=== PATIENT | male | born 1940 | race Caucasian/White ===

== ENCOUNTER → 2020-08-23 13:35 | Outpatient (BNVA) | payer OTHER, MEDICARE, SELFPAY | PROVIDERS: PCP Internal Medicine; Visit Provider Hospitalist | DX: J44.9 Chronic obstructive pulmonary disease, unspecified (principal); R07.9 Chest pain, unspecified; J61 Pneumoconiosis due to asbestos and other mineral fibers | CPT/HCPCS: 99212 ==

== ENCOUNTER → 2020-11-22 10:38 | Outpatient (BNVA) | payer MEDICARE, OTHER, SELFPAY | PROVIDERS: PCP Internal Medicine; Visit Provider Hospitalist | DX: J43.2 Centrilobular emphysema (principal); J61 Pneumoconiosis due to asbestos and other mineral fibers; R07.9 Chest pain, unspecified | CPT/HCPCS: 99212 ==

== ENCOUNTER 2020-12-16 08:55 | Outpatient (REF) | payer MEDICARE, OTHER, SELFPAY ==
--- NOTE | ~2020-12-16 | CT_ITS ---
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 Axial MIP volume rendering provided. Sagittal and coronal reformatted images were obtained. Additional high-resolution images are obtained in 3 views through the upper, mid, and lower zones. This CT examination was performed using dose optimization techniques as appropriate, variously including the following: *Automated exposure control *Adjustment of mA and/or kV according to patient size (this includes techniques or standardized protocols for targeted exams where dose is matched to indication/reason for exam; i.e. extremities or head) *Use of iterative reconstruction technique DLP: 207 mGy-cm FINDINGS: LUNGS: The central airways are clear. There is no endobronchial lesion or bronchiectasis. There is no lobar or segmental airspace consolidation. There are no interval fibrotic changes. No honeycombing. There is small calcified granuloma left posterior base. No interval lung mass or nodule. No air trapping demonstrated. MEDIASTINUM: No hilar or mediastinal adenopathy. Esophagus unremarkable. Heart size normal. No pericardial effusion. Again, there are atherosclerotic calcifications coronary artery and also calcification in region of aortic valve. Thoracic aorta normal in caliber. PLEURA: There are multiple bilateral predominantly calcified pleural plaque similar in size and number to prior exam. There is no interval pleural mass or pleural effusion. AXILLA: No lymphadenopathy. UPPER ABDOMEN: Adrenals unremarkable. OSSEOUS STRUCTURES: No acute bony abnormality. CT/CT chest wo con IMPRESSION: 1. 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 2. No interval pulmonary parenchymal fibrotic changes, honeycombing, air trapping, or pleural effusion. 3. Coronary artery atherosclerotic calcification and calcification in region of aortic valve again noted.
== END 2020-12-16 08:56 | disposition home or self-care (01) ==
LOC: HO.CT 08:55
PROVIDERS: Visit Provider Hospitalist
DX: R07.9 Chest pain, unspecified (principal); J61 Pneumoconiosis due to asbestos and other mineral fibers
CPT/HCPCS: 71250

== ENCOUNTER → 2021-05-24 10:44 | Outpatient (BNVA) | payer MEDICARE, OTHER, SELFPAY | PROVIDERS: PCP Internal Medicine; Visit Provider Hospitalist | DX: J44.9 Chronic obstructive pulmonary disease, unspecified (principal); J61 Pneumoconiosis due to asbestos and other mineral fibers; R07.9 Chest pain, unspecified; R01.1 Cardiac murmur, unspecified; Z87.891 Personal history of nicotine dependence; Z88.4 Allergy status to anesthetic agent; Z88.8 Allergy status to other drugs, medicaments and biological substances; Z79.899 Other long term (current) drug therapy | CPT/HCPCS: 99212 ==

== ENCOUNTER 2021-05-29 07:31 | Outpatient (REF) | payer MEDICARE, OTHER, SELFPAY ==
--- NOTE | ~2021-05-29 | XR_ITS ---
EXAMINATION: XR CHEST CLINICAL INFORMATION: Chest pain COMPARISON: Previous chest x-rays most recent June [address] scans most recent December 2020 TECHNIQUE: 2 views of the chest were obtained. FINDINGS: The cardiac silhouette is slightly enlarged but stable. Hilar and mediastinal contours are unremarkable. The lung volumes are low. There are bilateral calcified pleural plaques that appear stable. The lungs are otherwise clear. There is no pleural effusion or pneumothorax. There are degenerative changes of the spine. XR/XR chest 2V IMPRESSION: No evidence for acute disease in the chest.
--- NOTE | 2021-05-29 07:49 | ECG_ITS ---
Test Reason : copd Blood Pressure : / mmHG Vent. Rate : 067 BPM Atrial Rate : 067 BPM P-R Int : 162 ms QRS Dur : 098 ms QT Int : 384 ms P-R-T Axes : 047 003 039 degrees QTc Int : 405 ms Normal sinus rhythm Moderate voltage criteria for LVH, may be normal variant ( R in aVL , Sokolow-Olson ) Nonspecific ST abnormality Abnormal ECG When compared with ECG of 22-JUL-2015 17:08, No significant change was found Referred By: Eric Tucker Electronically Signed By:MARILYN SANTOS MD
== END 2021-05-29 07:32 | disposition home or self-care (01) ==
LOC: HO.XRAY 07:31
PROVIDERS: Visit Provider Hospitalist
DX: R07.9 Chest pain, unspecified (principal); J44.9 Chronic obstructive pulmonary disease, unspecified
CPT/HCPCS: 71046; 93005

== ENCOUNTER → 2022-03-20 12:47 | Outpatient (BNVA) | payer MEDICARE, OTHER, SELFPAY | PROVIDERS: Visit Provider Hospitalist | DX: J43.2 Centrilobular emphysema (principal); J61 Pneumoconiosis due to asbestos and other mineral fibers; R07.9 Chest pain, unspecified; R01.1 Cardiac murmur, unspecified | CPT/HCPCS: 99212 ==

== ENCOUNTER → 2022-09-18 13:14 | Outpatient (BNVA) | payer MEDICARE, OTHER, SELFPAY | PROVIDERS: PCP Internal Medicine; Visit Provider Hospitalist | DX: J44.9 Chronic obstructive pulmonary disease, unspecified (principal); J61 Pneumoconiosis due to asbestos and other mineral fibers; R07.9 Chest pain, unspecified; J43.2 Centrilobular emphysema | CPT/HCPCS: 99212 ==

== ENCOUNTER 2022-10-04 09:01 | Outpatient (REF) | payer MEDICARE, OTHER, SELFPAY ==
--- NOTE | 2022-10-04 10:59 | PFT_ITS ---
INDICATION: Emphysema. SPIROMETRY: FEV1 to FVC 83% with an FEV1 of 1.29 L, which is 58% predicted, and FVC of 1.56 L, which is 48% predicted. No significant response to bronchodilator is noted. Maximum voluntary ventilation of 58% predicted. LUNG VOLUMES: Total lung capacity 61% of predicted with an expiratory reserve volume of 34% predicted. DIFFUSION CAPACITY: DLCO of 54% predicted. To note, it corrects to 122% when correcting for the alveolar volume. COMPARISON: None available. INTERPRETATION: No obstructive ventilatory defects. No significant response to bronchodilators noted. Moderate decrease in maximum voluntary ventilation. The patient does have a restrictive ventilatory defect consistent with mild restrictive lung disease. Apparently, due to an elevated BMI. Although, parenchymal lung conditions cannot be ruled out. The patient does have moderate diffusion impairment that does correct to normal when correcting for the alveolar volume. Clinical correlation warranted. Eric Tucker MD MR/MODL / [id number]
== END 2022-10-04 09:02 | disposition home or self-care (01) ==
LOC: HO.RESP 09:01
PROVIDERS: PCP Internal Medicine; Visit Provider Hospitalist
DX: J43.2 Centrilobular emphysema (principal)
CPT/HCPCS: 94060; 94727; 94729

== ENCOUNTER 2023-06-19 10:21 | Outpatient (AMB) | payer OTHER, SELFPAY ==
[2023-06-19 10:32] VITALS: BP 126/74; PULSE 80; BMI 36.7
--- NOTE | 2023-06-19 10:32 | MHC.OFFVIS ---
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/Aortic stenosis, CAD Intake Note: New patient dx CAD and had surgery 03/27/22 [facility] [place] hearts doing ok Loader Operator Supervisor Required: No Allergies niacin Allergy (Severe, Verified 09/18/22 13:20) Upset Stomach procaine [From Novocain] Allergy (Severe, Verified 09/18/22 13:20) I GET MEAN simvastatin Adverse Reaction (Severe, Verified 09/18/22 13:20) myopathy Medication List - Last Reconciled 06/19/23 by Donny Bonds MD albuterol sulfate 90 mcg/actuation 0 mcg inhalation aspirin (Adult Aspirin Regimen) 81 mg PO DAILY atorvastatin 80 mg PO BEDTIME clopidogrel 75 mg PO DAILY ezetimibe 10 mg PO DAILY fluticasone propion-salmeterol 250-50 mcg/dose (Wixela Inhub) 1 inh inhalation BID hydrochlorothiazide 25 mg PO DAILY metoprolol succinate ER 50 mg PO DAILY HPI HPI Comments History of Present Illness Details Thank you for referring Reed in cardiology consultation today for management of his cardiovascular disease. He is a pleasant 82-year-old male with prior history asbestosis, COPD, aortic stenosis status post transcatheter bioprosthetic aortic valve replacement with a 26 mm valve, March 2022, prior to that he underwent circumflex territory stenting with drug-eluting stents x3. Patient has chronic shortness of breath but says that his shortness of breath has improved since the procedure. He denies any exertional chest pain. He says his family members and friends tell him that he is looking better and performing better. He is currently still on dual antiplatelet therapy. He is on high-intensity statin therapy as well as blood pressure medications. He is also on ezetimibe therapy. I do not have the most recent blood work. He denies any heart failure symptoms. Denies any prolonged palpitation irregular heartbeat. Takes all his medications regularly. [facility] Medical History (Updated 06/19/23 @ 14:28 by Donny Bonds MD) Hyperlipidemia HTN (hypertension) CAD (coronary artery disease) Murmur, cardiac Chest pain COPD (chronic obstructive pulmonary disease) Asbestosis Surgical History (Updated 06/19/23 @ 14:28 by Donny Bonds MD) S/P TAVR (transcatheter aortic valve replacement) Stented coronary artery Hx of cardiac catheterization Family History Father CAD (coronary artery disease) Mother No problems noted. Social History Patient Tobacco Use Status: Former Tobacco user Tobacco use type: Cigarette Years Smoked: 14 years old Physical Exam Vital Signs: Last Vital Signs Pulse 80 06/19/23 10:32 BP 126/74 06/19/23 10:32 BMI result Body Mass Index 36.7 Const General: cooperative, comfortable, no acute distress, alert, awake and Physically active Nutritional Appearance: obese Orientation/consciousness: patient oriented x3 Limitations: no limitations HEENT Head: Yes normocephalic and Yes atraumatic Neck Neck: Yes trachea midline, Yes supple and Yes no JVD Resp Effort & Inspection: normal respiratory effort Auscultation: no rales, no wheezes and diminished lung sounds Cardio Jugular venous distension: no JVD Palpation: normal PMI Rate: regular rate Rhythm: regular rhythm Heart sounds: S1 normal heart sound present, S2 normal heart sound present, no click, no gallops and Murmur heart sound present systolic early GI Auscultation: normal bowel sounds Skin General skin exam: no rashes or lesions noted Neuro General: patient oriented x3 and no focal motor deficits Extrem General: Yes no clubbing, cyanosis or edema Office Procedures EKG Details: EKG shows normal sinus rhythm normal EKG at 80 beats per minute [id number], Complete Assessment & Plan Assessment & Plan (1) CAD (coronary artery disease): Code(s): I25.10 - Atherosclerotic heart disease of platinum coronary artery without angina pectoris Plan: CAD with circumflex stenting prior to transcatheter aortic valve replacement. Improved symptoms since then. Patient has having no current exertional symptoms and requires no further workup at this point time. He is status post drug-eluting stent more than a year ago. Will stop clopidogrel therapy. Continue lifelong aspirin therapy continue aggressive risk factor modification. Continue high-intensity statin therapy and ezetimibe with target goal LDL closer to 60 mg/dL. Continue aggressive control blood pressure which is currently well optimized importance of good blood pressure control was discussed. Low-salt diet was discussed. Advised to maintain activity level as tolerated. (2) S/P TAVR (transcatheter aortic valve replacement): Comment: 26 mm, Marcy, March 2023 Code(s): Z95.2 - Presence of prosthetic heart valve Plan: Status post transcatheter aortic valve replacement for severe aortic stenosis. Question bicuspid aortic valve as he has had murmur since he was very young. Advised to screen his children for bicuspid aortic valve. Continue aggressive vascular risk factor modifications above. Continue low-dose aspirin therapy for life. SBE prophylaxis as per ACC/aha guidelines. Will repeat echocardiogram. Will follow up in the clinic in 1 year's time, sooner p.r.n.. Thank you for allowing me to partake in his care Medications: New hydrochlorothiazide 25 mg PO DAILY 90 tabs 3RF metoprolol succinate ER 50 mg PO DAILY 90 tabs 3RF Coding Level of Care Code New Pt Level 4 (02202) Diagnoses CAD (coronary artery disease) I25.10 S/P TAVR (transcatheter aortic valve replacement) Z95.2 CPT Codes EKG - CPT: 89709-Omeqynfajbzagshyk, Complete ([id number])
== END 2023-06-19 11:16 | disposition home or self-care (01) ==
PROVIDERS: PCP Internal Medicine; Visit Provider Internal Medicine Cardiovascular Disease
DX: I25.10 Atherosclerotic heart disease of native coronary artery without angina pectoris (principal); Z95.2 Presence of prosthetic heart valve
CPT/HCPCS: 93010; 99204

== ENCOUNTER → 2023-06-19 10:21 | Outpatient (BNVA) | payer MEDICARE, OTHER, SELFPAY | PROVIDERS: PCP Internal Medicine; Visit Provider Internal Medicine Cardiovascular Disease | DX: I25.10 Atherosclerotic heart disease of native coronary artery without angina pectoris (principal); Z95.2 Presence of prosthetic heart valve | CPT/HCPCS: 93005; 99202 ==

== ENCOUNTER → 2023-07-10 10:41 | Outpatient (REF) | payer MEDICARE, OTHER, SELFPAY ==
--- NOTE | 2023-07-10 10:44 | CA_ITS ---
Transthoracic Echocardiogram Patient (Last, First, Middle): Reed Mallory H Gender: Male Date of : 1940 Age: 82 Procedure Date: 07/10/2023 Procedure Type: Transthoracic Echocardiogram Location: OP Height: 167.64 cm Weight: 90.72 kg BSA: 2.00 m2 Heart Rate: 72 bpm BP: 152 / 70 mmHg Change Coordinator: MARIANA Referring MD: Donny Bonds MD Symptoms: Z95.2 - Presence of prosthetic heart valve Study Quality: Fair ECG Rhythm: Sinus Conclusions: - The left ventricular systolic function is normal. The visually estimated ejection fraction is between 65-70%. - A bioprosthetic aortic valve is present. The prosthetic aortic valve appears to be functioning normally. Findings Procedure Information Contrast agent, definity, is being given per protocol without apparent complications. The quality of the study was technically difficult. The study quality is limited by lung artifact. Left Ventricle Normal left ventricular cavity size. The left ventricular systolic function is normal. The visually estimated ejection fraction is between 65-70%. There is no evidence of regional wall motion abnormalities. Evidence suggests grade I (mild) diastolic dysfunction. At least moderate focal hypertrophy of the basal septum. Right Ventricle Normal right ventricular cavity size. There is mildly decreased right ventricular systolic function. Atria Both atria are normal in size. Aortic Valve A bioprosthetic aortic valve is present. The prosthetic aortic valve appears to be functioning normally. Trace para-valvular regurgitation. Mitral Valve The mitral valve appears normal. There is trace mitral valve regurgitation. There is no mitral valve stenosis. Pulmonic Valve The pulmonic valve is likely normal. Tricuspid Valve Normal tricuspid valve structure. There is trace tricuspid valve regurgitation. There is no evidence of pulmonary hypertension. Great Vessels The asc aorta is normal in size. Venous The inferior vena cava was not well visualized. Pericardium/Pleural There is no evidence of pericardial effusion. Prior Study Comparison Changes noted compared to prior study dated: 04/23/2019. s/p TAVR. Measurements 2D Linear Measurements IVSd: 1.11 0.6-0.9/0.6-1.0 cm LVIDd: 5.15 3.9-5.3/4.2-5.9 cm LVIDd Index: 2.58 2.4-3.2/2.2-3.1 cm/m2 LVIDs: 3.48 2.0-3.6 cm LVPWd: 0.79 0.7-1.1 cm LA Diam: 4.50 2.7-3.8/3.0-4.0 cm LAIDs Index: 2.25 1.5-2.3 cm/m2 LV Mass: 222.67 67-162/88-224 g LV Mass Index: 111.34 43-95/49-115 g/m2 LVOT Diam: 2.20 3.0+(-)1.3 cm 2D Systolic Function EF 4C: 70.40 >55% Mitral Valve MV Pk E: 0.81 MV PK A: 0.88 MV Decel Time: 193.00 E/A: 0.90 E'Lateral: 6.53 E'Medial: 4.79 E/E' Med: 17.00 E/E' Lat: 12.50 PHT: 57.00 MVA PHT: 3.86 Decel [place]: 4.21 Aortic Valve AoV Pk Dave: 2.26 AoV Mn Dave: 1.58 AoV VTI: 0.47 AoV Pk Grad: 20.00 Aov Mn Grad: 11.00 STARR Cont.VTI: 2.28 LVOT LVOT Pk Dave: 1.25 LVOT Mn Dave: 0.87 LVOT VTI: 0.28 LVOT Pk Grad: 6.00 LVOT Mn Grad: 3.00 LVOT Diam: 2.20 LVOT Area: 3.80 Diastolic Function MV Pk E: 0.81 MV Pk A: 0.88 E/A: 0.90 E'Medial: 4.79 E/E' Med: 17.00 E' Laterial: 6.53 E/E' Lat: 12.50 Right Ventricle TAPSE (mm): 14.70 TVS' Dave: 10.00 Tricuspid Valve RA Press: 3.00 Great Vessels Aorta Ao Asc: 3.30 2.1-3.4 cm Pulmonary Valve PV Pk Dave: 0.92 Peak PV Grad: 3.00 Updated in Other Vendor System with Status of Final Aj Larkin MD electronically signed on 07/12/2023 11:45:42 AM with status of Final
== END ==
LOC: HO.CARD 10:41
PROVIDERS: PCP Internal Medicine; Visit Provider Internal Medicine Cardiovascular Disease
DX: Z95.2 Presence of prosthetic heart valve (principal)
CPT/HCPCS: 93306; Q9957

== ENCOUNTER → 2023-07-10 10:44 | Outpatient (BNV) | payer OTHER, SELFPAY | PROVIDERS: PCP Internal Medicine; Visit Provider Internal Medicine | DX: R07.9 Chest pain, unspecified (principal) | CPT/HCPCS: 93306 ==

== ENCOUNTER → 2023-11-21 14:14 | Outpatient (BNVA) | payer MEDICARE, OTHER, SELFPAY | PROVIDERS: PCP Internal Medicine; Visit Provider Hospitalist | DX: J43.2 Centrilobular emphysema (principal); J61 Pneumoconiosis due to asbestos and other mineral fibers; R42 Dizziness and giddiness | CPT/HCPCS: 99212 ==

== ENCOUNTER 2023-11-25 08:55 | Outpatient (AMB) | payer MEDICARE, OTHER, SELFPAY ==
[2023-11-25 09:06] VITALS: BP 142/80; PULSE 69; TEMP 36.6; O2SAT 98
--- NOTE | 2023-11-25 09:06 | AM.OFFWIN_ITS ---
Intake Vital Signs 11/25/23 09:06 Height 5 ft 3 in BP 142/80 H Blood Pressure Location Rt brachial Position Sitting Pulse 69 Pulse Source Pulse Oximeter Temp 97.8 F Temp Source Temporal Artery Scan Pulse Oximetry (%) 98 Intake Visit Reasons: EP blocked rt ear Intake Note: pt is here for bilateral ear blockage Patient Tobacco Use Status: Former Tobacco user Allergies niacin Allergy (Severe, Verified 11/25/23 09:07) Upset Stomach procaine [From Novocain] Allergy (Severe, Verified 11/25/23 09:07) I GET MEAN simvastatin Adverse Reaction (Severe, Verified 11/25/23 09:07) myopathy Do you need a note to return to daycare/school/sports/work: No HPI HPI Comments History of Present Illness Details Patient presents to the walk-in today for sick visit Complaining wax in both ears States he went to have hearing aids put in and was told they needed his ears flushed before they could do anything Denies dizziness, headaches ear pain, discharge from the ears [facility] Medical History (Updated 11/25/23 @ 09:15 by Michelle Padgett APRN, TELECOMMUNICATIONS SALES REPRESENTATIVE) Hyperlipidemia HTN (hypertension) CAD (coronary artery disease) Murmur, cardiac Chest pain COPD (chronic obstructive pulmonary disease) Asbestosis Surgical History (Updated 06/19/23 @ 14:28 by Donny Bonds MD) S/P TAVR (transcatheter aortic valve replacement) Stented coronary artery Hx of cardiac catheterization Family History Father CAD (coronary artery disease) Mother No problems noted. Social History Patient Tobacco Use Status: Former Tobacco user Tobacco use type: Cigarette Years Smoked: 14 years old Review of Systems Const All systems reviewed & are unremarkable except as noted in HPI and below Physical Exam Vital Signs: Last Vital Signs Temp 97.8 F 11/25/23 09:06 Pulse 69 11/25/23 09:06 BP 142/80 H 11/25/23 09:06 Pulse Ox 98 11/25/23 09:06 General: awake, alert, oriented. Answers questions appropriately. Fully engaged in examination. Skin: warm, dry, intact HEENT: Right ear: Cerumen impaction Left ear: Minimal cerumen noted, TM normal to visual inspection. Cardiac: External chest normal in appearance. Respiratory: No cough, audible wheezing or stridor. Abdomen: without gross distension. MS: No obvious swelling or deformities. Neurological: Oriented to person, place, time and situation. Thought process intact. Psychiatric: Appropriate mood and affect. Good judgment and insight. Office Procedures Cerumen Removal From which ear canal was the cerumen removed: left Removal: irrigation Notes: patient tolerated procedure well [id number] Irrigation/Lavage Assessment & Plan Assessment & Plan (1) Impacted cerumen, right ear: Code(s): H61.21 - Impacted cerumen, right ear Plan Cerumen removal as above, patient tolerated well. Post irrigation right TM normal to visual inspection. Follow up as planned for hearing aid fitting All questions and concerns were addressed, patient agrees with the plan. Follow up with pcp or in walkin for any new or worsening symptoms. Coding Level of Care Code Est Pt Level 3 (84262) Diagnoses Impacted cerumen, right ear H61.21 CPT Codes Office Procedure - CPT: 64180-Rmj Irrigation/Lavage ([id number])
== END 2023-11-25 09:59 | disposition home or self-care (01) ==
PROVIDERS: PCP Internal Medicine; Visit Provider Registered Nurse Emergency
DX: H61.21 Impacted cerumen, right ear (principal)
CPT/HCPCS: 69209; 99213

== ENCOUNTER 2024-01-10 18:17 | Emergency (ER) | payer OTHER, SELFPAY ==
--- NOTE | ~2024-01-10 | XR_ITS ---
EXAMINATION: 1. Left ankle. 2. Left foot. CLINICAL INFORMATION: Trauma. Pain. COMPARISON: None. TECHNIQUE: 1. Left ankle. 3 views 2. Left foot. 3 views FINDINGS: 1. Left ankle. Oblique fracture through the lateral malleolus at the level the synchondrosis. Fracture fragment is displaced about one half shaft width laterally. There is associated lateral dislocation of the talus with widening of the medial clear space of the ankle. There is chondrocalcinosis of the ankle joint. 2. Left foot. No fracture of the foot. There is no dislocation. Minimal plantar calcaneal spur. XR/XR foot LT min 3V IMPRESSION: 1. Left ankle. Fracture of the lateral malleolus with lateral dislocation of the talus. 2. Left foot. No fracture of the foot. There is chondrocalcinosis of the ankle joint.
--- NOTE | ~2024-01-10 | CT_ITS ---
EXAMINATION: CT CHEST, ABDOMEN AND PELVIS WITH CONTRAST. CLINICAL INFORMATION: fall, injury, pain. COMPARISON: No pertinent prior studies are available for comparison. TECHNIQUE: Multidetector volumetric imaging was performed from the thoracic inlet through the pubic symphysis following administration of 85 mL Omnipaque 300 intravenous contrast. Sagittal and coronal reformatted images were obtained on the technologist's workstation. This CT examination was performed using dose optimization techniques as appropriate, variously including the following: *Automated exposure control *Adjustment of mA and/or kV according to patient size (this includes techniques or standardized protocols for targeted exams where dose is matched to indication/reason for exam; i.e. extremities or head) *Use of iterative reconstruction technique DLP: 1943 mGy-cm FINDINGS: CHEST: Lung: Bibasilar dependent atelectasis. Mediastinum: Vascular calcification within the aorta and coronary vessels. TAVR stent is in place. Small hiatal hernia. 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 ABDOMEN/PELVIS: Peritoneal Space:No significant free air or free fluid identified. Liver, Gallbladder, Biliary Tree: The liver is normal in size, shape, and attenuation. No focal hepatic lesion or biliary ductal dilatation is present. The gallbladder is unremarkable with no evidence of radiopaque gallstones, gallbladder wall thickening, or obvious pericholecystic inflammatory changes. Pancreas: Atrophic Spleen: Unremarkable. Adrenal Glands: Unremarkable. Kidneys and Ureters: The kidneys are normal in size, shape, and attenuation. Low-attenuation cortical and parapelvic cysts seen bilaterally. No hydronephrosis, hydroureter, or calculi seen. No perinephric stranding. Bladder: Unremarkable. Gastrointestinal Tract: Scattered colonic diverticulosis more so in the sigmoid colon. Visualized small bowel unremarkable Abdominal Wall: No significant hernia is appreciated. Lymphovascular Structures: Vascular calcification within the aorta iliac system. No bulky adenopathy. No evidence for retroperitoneal bleed. Incidental retroaortic left renal vein. Pelvic Viscera: Unremarkable. Osseus Structures: Degenerative changes in the hips and shoulders. No displaced rib fractures seen. Sternum intact Spine: Multilevel degenerative changes in the spine with prominent osteophyte formation. There is grade 1 likely chronic anterolisthesis of L4 on L5 with sclerotic degenerative changes at this level CT/CT abdomen pelvis w IV con IMPRESSION: No visceral organ injury. No acute bony abnormality. Chronic appearing changes as described above.
--- NOTE | ~2024-01-10 | CT_ITS ---
EXAMINATION: CT HEAD WITHOUT CONTRAST CT CERVICAL SPINE WITHOUT CONTRAST CLINICAL INFORMATION: Fall. Injury. Pain. COMPARISON: CT head January 13, 2012 TECHNIQUE: Imaging was performed from the skull base to vertex without intravenous administration of contrast. In addition, helical noncontrast CT imaging was acquired through the cervical spine and source images were reviewed along with axial reconstructions and sagittal and coronal MPRs. [This CT examination was performed using dose optimization techniques as appropriate, variously including the following: *Automated exposure control *Adjustment of mA and/or kV according to patient size (this includes techniques or standardized protocols for targeted exams where dose is matched to indication/reason for exam; i.e. extremities or head) *Use of iterative reconstruction technique] DLP: 1247 mGy-cm FINDINGS: HEAD: No intracranial mass, hemorrhage, or midline shift is visualized. There is generalized global volume loss. There is mild prominence of the ventricles and the sulci . There is mild hypodensity of the periventricular white matter due to chronic small vessel ischemic disease. There are vascular calcifications of the internal carotid arteries bilaterally. No extra-axial collections are identified. The paranasal sinuses and mastoid air cells are well aerated. CERVICAL SPINE: There is no evidence of acute cervical spine fracture. Vertebral bodies remain normal in height. Cervical vertebrae have normal alignment. There is multilevel degenerative spondylosis of the cervical spine with disc height narrowing and endplate spurs and facet joint arthrosis No pre- or paravertebral soft tissue abnormality is identified. Limited assessment of the lung apices is unremarkable. CT/CT cervical spine wo IV con IMPRESSION: 1. No acute intracranial pathology. 2. No CT evidence of acute cervical spine fracture or traumatic subluxation
--- NOTE | ~2024-01-10 | XR_ITS ---
EXAMINATION: 1. Left ankle. 2. Left foot. CLINICAL INFORMATION: Trauma. Pain. COMPARISON: None. TECHNIQUE: 1. Left ankle. 3 views 2. Left foot. 3 views FINDINGS: 1. Left ankle. Oblique fracture through the lateral malleolus at the level the synchondrosis. Fracture fragment is displaced about one half shaft width laterally. There is associated lateral dislocation of the talus with widening of the medial clear space of the ankle. There is chondrocalcinosis of the ankle joint. 2. Left foot. No fracture of the foot. There is no dislocation. Minimal plantar calcaneal spur. XR/XR ankle LT min 3V IMPRESSION: 1. Left ankle. Fracture of the lateral malleolus with lateral dislocation of the talus. 2. Left foot. No fracture of the foot. There is chondrocalcinosis of the ankle joint.
[2024-01-10 18:23] VITALS: BP 138/77; PULSE 71; RESP 18; TEMP 36; O2SAT 95; BMI 31.5
--- NOTE | 2024-01-10 18:25 | ED_ITS ---
HPI - General Adult General Stated complaint: L ankle inj Related Data Home Medications ?Medication ?Instructions ?Recorded ?Confirmed albuterol sulfate 90 mcg/actuation 0 mcg inhalation 08/23/20 06/19/23 aerosol inhaler fluticasone 250 mcg-salmeterol 50 1 inh inhalation BID 03/20/22 06/19/23 mcg/dose blistr powdr for inhalation (Wixela Inhub) Previous Rx's ?Medication ?Instructions ?Recorded aspirin 81 mg tablet,delayed 81 mg PO DAILY #90 tabs 06/19/23 release (Adult Aspirin Regimen) atorvastatin 80 mg tablet 80 mg PO BEDTIME #90 tabs 06/19/23 ezetimibe 10 mg tablet 10 mg PO DAILY #90 tabs 06/19/23 hydrochlorothiazide 25 mg tablet 25 mg PO DAILY #90 tabs 06/19/23 metoprolol succinate 50 mg 50 mg PO DAILY #90 tabs 06/19/23 tablet,extended release 24 hr Allergies Allergy/AdvReac Type Severity Reaction Status Date / Time niacin Allergy Severe Upset Verified 11/25/23 09:07 Stomach procaine [From Novocain] Allergy Severe I GET Verified 11/25/23 09:07 MEAN simvastatin AdvReac Severe myopathy Verified 11/25/23 09:07 [facility] Past Medical History Medical History (Updated 11/25/23 @ 09:15 by Michelle Padgett APRN, [facility]) Hyperlipidemia HTN (hypertension) CAD (coronary artery disease) Murmur, cardiac Chest pain COPD (chronic obstructive pulmonary disease) Asbestosis Surgical History (Updated 06/19/23 @ 14:28 by Donny Bonds MD) S/P TAVR (transcatheter aortic valve replacement) Stented coronary artery Hx of cardiac catheterization Family History Family History Father CAD (coronary artery disease) Mother No problems noted. Social History Social History Patient Tobacco Use Status: Former Tobacco user Tobacco use type: Cigarette Years Smoked: 14 years old Course Course Course Narrative: RME performed by Elyssa Douglas PA-C. Patient is an 83 year old assigned male at presenting to the emergency department with chest pain and left ankle pain. Patient states that he is having left sided ankle pain and chest pain after falling off of a motorized scooter he was trying to fix. Detailed physical exam and review of systems are deferred to the business services administrator. EKG, labs, and imaging ordered. Patient placed back in the waiting room pending room availability and results. Discharge Plan Discharge Prescriptions: No Action hydrochlorothiazide 25 mg tablet 25 mg PO DAILY Qty: 90 3RF ezetimibe 10 mg tablet 10 mg PO DAILY Qty: 90 3RF atorvastatin 80 mg tablet 80 mg PO BEDTIME Qty: 90 3RF aspirin [Adult Aspirin Regimen] 81 mg tablet,delayed release (DR/EC) 81 mg PO DAILY Qty: 90 3RF metoprolol succinate 50 mg tablet extended release 24 hr 50 mg PO DAILY Qty: 90 3RF albuterol sulfate 90 mcg/actuation HFA aerosol inhaler 0 mcg inhalation fluticasone propion-salmeterol [Wixela Inhub] 250-50 mcg/dose blister with device 1 inh inhalation BID Print Language: Japanese
--- NOTE | 2024-01-10 18:26 | ECG_ITS ---
Test Reason : CHEST PAIN Blood Pressure : / mmHG Vent. Rate : 072 BPM Atrial Rate : 072 BPM P-R Int : 170 ms QRS Dur : 090 ms QT Int : 392 ms P-R-T Axes : 059 006 022 degrees QTc Int : 429 ms Normal sinus rhythm Minimal voltage criteria for LVH, may be normal variant ( R in aVL ) Borderline ECG When compared with ECG of 29-MAY-2021 07:56, No significant change was found Referred By: Elyssa Douglas Electronically Signed By:PAULA ARGUETA MD
[2024-01-10 18:38] VITALS: BP 149/64; PULSE 72; RESP 20; TEMP 36.7; O2SAT 95
--- NOTE | 2024-01-10 18:53 | MHC.EDTECH ---
This pct just assumed care of patient ,ekg taken and was read by Provider ,vitals taken ,Patient was hooked up to procurement engineer ,rsv/covid swab and blood drawn all sent to lab ,Patient A& O ,Patient daughter at bedside ,Call perry within pt reach .
[2024-01-10 18:55] LABS: MANUAL DIFF FLAG NO
[2024-01-10 19:05] LABS: Basophils Percent Auto 0.5 % (0-2); Eosinophils Absolute Auto 0.1 X10*3/uL (0.0-0.4); Eosinophils Percent Auto 1.3 % (0-4); Hematocrit 39.5 % (42.0-52.0); Hemoglobin 13.6 g/dl (14.0-18.0); Imm Gran Abs Auto 0.04 X10*3/uL (0.00-0.03); Imm Gran Pct Auto 0.5 % (0.0-0.4); Lymphocytes Absolute Auto 2.8 X10*3/uL (1.2-4.9); Lymphocytes Percent Auto 37.4 % (20-40); Mean Corpuscular HGB Conc 34.4 g/dl (31.0-36.0); Mean Corpuscular Hemoglobin 33.1 pg (27.0-33.0); Mean Corpuscular Volume 96.1 fL (80.0-98.0); Mean Platelet Volume 9.7 fL (9.4-12.4); Monocytes Absolute Auto 0.8 X10*3/uL (0.1-1.2); Monocytes Percent Auto 11.2 % (2-11); Neutrophils Absolute Auto 3.7 x10*3/uL (2.0-8.3); Neutrophils Percent Auto 49.1 % (45-73); Platelet Count 108 X10*3/uL (160-400); Red Blood Count 4.11 X10*6/uL (4.60-5.80); Red Cell Distribution Width 13.2 % (11.0-16.0); White Blood Count 7.5 X10*3/uL (4.8-10.8)
[2024-01-10 19:09] LABS: Alanine Aminotransferase 24 U/L (0-40); Albumin Level 3.7 g/dL (3.5-5.0); Alkaline Phosphatase 88 U/L (39-117); Anion Gap 13 (12-20); Aspartate Amino Transferase 31 U/L (5-37); Bilirubin Total 0.7 mg/dL (0.0-1.0); Blood Urea Nitrogen 23 mg/dL (9-16); Calcium 9.1 mg/dL (8.4-10.2); Carbon Dioxide 23 mmol/L (22-29); Chloride 108 mmol/L (96-108); Creatinine Clr Calc Pharmacy 59.8; Estimated Glomerular Filt Rate > 60; Glucose Random 111 mg/dL (60-115); Magnesium 1.8 mg/dL (1.6-2.6); Potassium 3.4 mmol/L (3.3-5.1); Prothrombin Time 11.8 SEC (11.1-13.3); Sodium 141 mmol/L (135-145); Total Protein 6.4 g/dL (6.5-8.0)
[2024-01-10 19:12] LABS: Partial Thromboplastin Time 26.7 SEC (26.0-36.8)
[2024-01-10 19:16] LABS: Troponin-I High Sensitivity 4.3 ng/L (<3.5-35.0)
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
[2024-01-10 19:30] LABS: Influenza A PCR NEGATIVE (Negative); Influenza B PCR NEGATIVE (Negative); Resp Syncy Virus RNA Qual PCR NEGATIVE (Negative); SARS COV2 PCR INHOUSE NEGATIVE (Negative)
--- NOTE | 2024-01-10 19:35 | PC.NURSE ---
Assumed care of pt at 1900. #20 IV placed in L-upper forearm. Pt going to CT.
[2024-01-10] MEDS: iohexoL 350 MG/ML 100 ML INFUS..BTL 85 ML IV (19:56)
[2024-01-10 20:45] VITALS: BP 159/46; PULSE 75; RESP 16; TEMP 36.2; O2SAT 95
[2024-01-10 21:50] LABS: Troponin-I High Sensitivity 5.7 ng/L (<3.5-35.0)
[2024-01-10 21:51] LABS: Appearance Urine Clear; Color Urine Yellow; Glucose Urine UA Negative (Negative); Leukocyte Esterase Urine Negative (Negative); Nitrite Urine Negative (Negative); PH 7.5 (5.0-9.0); Specific Gravity - Urine >= 1.030 (1.005-1.025); Urine Blood Negative (Negative); Urine Ketones Negative (Negative); Urine Protein Negative (Neg-Trace)
[2024-01-10 22:19] VITALS: BP 157/74; PULSE 82; RESP 16; TEMP 36.4; O2SAT 95
[2024-01-10 23:37] VITALS: BP 157/74; PULSE 82; RESP 16; TEMP 36.4; O2SAT 95
== END 2024-01-10 22:35 | disposition home or self-care (01) ==
PROVIDERS: Physician Assistant; Physician Assistant Medical; Emergency Provider Emergency Medicine
DX: S82.62XA Displaced fracture of lateral malleolus of left fibula, initial encounter for closed fracture (principal); S93.05XA Dislocation of left ankle joint, initial encounter; R07.89 Other chest pain; R10.2 Pelvic and perineal pain; M25.572 Pain in left ankle and joints of left foot; R40.2410 Glasgow coma scale score 13-15, unspecified time; M54.2 Cervicalgia; R51.9 Headache, unspecified; M54.6 Pain in thoracic spine; R10.30 Lower abdominal pain, unspecified; W05.2XXA Fall from non-moving motorized mobility scooter, initial encounter; Y93.9 Activity, unspecified; Y92.410 Unspecified street and highway as the place of occurrence of the external cause; Y99.8 Other external cause status; Z79.899 Other long term (current) drug therapy; Z87.891 Personal history of nicotine dependence; Z03.818 Encounter for observation for suspected exposure to other biological agents ruled out
CPT/HCPCS: 0241U; 36415; 70450; 71260; 72125; 73610; 73630; 74177; 80053; 81003; 83735; 84484; 85025; 85610; 85730; 93005; 99284; Q9967

== ENCOUNTER → 2024-01-10 18:26 | Outpatient (BNV) | payer MEDICARE, OTHER, SELFPAY | PROVIDERS: Emergency Provider Emergency Medicine; Visit Provider Internal Medicine Cardiovascular Disease | DX: R07.9 Chest pain, unspecified (principal); R94.31 Abnormal electrocardiogram [ECG] [EKG] | CPT/HCPCS: 93010 ==

== ENCOUNTER 2024-01-13 10:17 | Outpatient (REF) | payer OTHER, SELFPAY ==
--- NOTE | ~2024-01-13 | XR_ITS ---
EXAMINATION: XR ANKLE, LEFT CLINICAL INFORMATION: Displaced fracture of lateral malleolus COMPARISON: X-ray the left ankle 01/10/2024 TECHNIQUE: AP, lateral, and mortise views of the left ankle. FINDINGS: There is oblique fracture the distal fibula with mild lateral displacement of distal fragment. Question slight widening of the medial clear space. No change in alignment. No additional fractures are identified. XR/XR ankle LT min 3V IMPRESSION: 1. Distal fibular fracture unchanged in alignment. 2. Question slight widening of the medial clear space.
== END 2024-01-13 10:18 | disposition home or self-care (01) ==
LOC: HO.HOSX 10:17
DX: S82.62XA Displaced fracture of lateral malleolus of left fibula, initial encounter for closed fracture (principal)
CPT/HCPCS: 27786; 73610; 99202

== ENCOUNTER 2024-01-13 13:11 | Outpatient (AMB) | payer OTHER, SELFPAY ==
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
== END 2024-01-13 15:38 | disposition home or self-care (01) ==
DX: S82.62XA Displaced fracture of lateral malleolus of left fibula, initial encounter for closed fracture (principal)
CPT/HCPCS: 27786; 99204

== ENCOUNTER 2024-01-20 14:51 | Outpatient (AMB) | payer OTHER, SELFPAY ==
--- NOTE | 2024-01-20 15:24 | A.OFFVIS_ITS ---
Intake Visit Reasons: ED F/U L ankle fx DOI 01/10/24 Intake Note: Reed is an 83 year old male who presents today for a follow up of his left ankle fx, DOI 01/10/24. Patient reports an increase of pain since his injury, however his swelling has improved. Allergies niacin Allergy (Severe, Verified 01/20/24 15:27) Upset Stomach procaine [From Novocain] Allergy (Severe, Verified 01/20/24 15:27) I GET MEAN simvastatin Adverse Reaction (Severe, Verified 01/20/24 15:27) myopathy HPI HPI ED F/U L ankle fx DOI 01/10/24: Details: Patient is an 83-year-old male who presents to the office today for skin and edema check prior to ankle surgery tomorrow due to displaced lateral malleolus fracture, date of injury 01/10/2024. Patient reports that he feels the swelling has improved in his left ankle, and then he has been keeping it elevated as much as possible. The patient inquires if the swelling has gone down enough to proceed with surgery tomorrow. [facility] Medical History (Updated 01/13/24 @ 17:33 by NYDIA Jimenez) Hyperlipidemia HTN (hypertension) CAD (coronary artery disease) Murmur, cardiac Chest pain COPD (chronic obstructive pulmonary disease) Asbestosis Surgical History S/P TAVR (transcatheter aortic valve replacement) Stented coronary artery Hx of cardiac catheterization Family History Father CAD (coronary artery disease) Mother No problems noted. Social History Patient Tobacco Use Status: Former Tobacco user Tobacco use type: Cigarette Years Smoked: 14 years old Physical Exam Extrem Other: On examination, there is still very significant edema and ecchymosis of the L ankle Skin feels tense due to edema No crease at the anterior ankle joint Mild tenderness to palpation at the fracture site NVI Assessment & Plan Assessment & Plan (1) Ankle fracture, lateral malleolus, closed: Code(s): S82.63XA - Displaced fracture of lateral malleolus of unspecified fibula, initial encounter for closed fracture Category: Medical Qualifiers: Encounter type: initial encounter Fracture alignment: displaced Laterality: left Qualified Code(s): S82.62XA - Displaced fracture of lateral malleolus of left fibula, initial encounter for closed fracture Plan 1. Displaced lateral malleolus fracture After consultation with Dr. Chirinos, the patient will proceed with surgery at this time Patient will be re-evaluated in pre-op by Dr. Chirinos to see the status of the edema in his ankle, and to determine if surgery can be performed Patient is placed back in splint for tonight, and advised to elevate and ice as much as possible until surgery tomorrow. Patient will follow-up postoperatively if able to proceed, or will be seen again in clinic before procedure if procedure must be rescheduled. Coding Level of Care Code Est Pt Level 3 (48624) Diagnoses Closed displaced fracture of lateral malleolus of left fibula, initial encounter S82.62XA Encounter type: initial encounter Fracture alignment: displaced Laterality: left
== END 2024-01-20 16:32 | disposition home or self-care (01) ==
DX: S82.62XA Displaced fracture of lateral malleolus of left fibula, initial encounter for closed fracture (principal)
CPT/HCPCS: 99024

== ENCOUNTER → 2024-01-20 14:51 | Outpatient (BNVA) | payer OTHER, MEDICARE, SELFPAY | DX: S82.62XD Displaced fracture of lateral malleolus of left fibula, subsequent encounter for closed fracture with routine healing (principal) | CPT/HCPCS: 99212 ==

== ENCOUNTER 2024-01-21 11:40 | Day surgery (SDC) | payer OTHER, SELFPAY ==
[2024-01-21] VITALS (7 sets, daily range): BP systolic 124–146; BP diastolic 58–82; PULSE 80–89; RESP 16–18; TEMP 36.3–36.7; O2SAT 91–96; BMI 34.5; BMI 31.1
--- NOTE | ~2024-01-21 | FL_ITS ---
EXAMINATION: XR FLUOROSCOPY WITH IMAGES CLINICAL INFORMATION: Left ankle fracture. COMPARISON: None available. TECHNIQUE: Fluoroscopy Supervised By: Dr. Jonnathan Chirinos. Fluoroscopy Time: 0.2 minutes. Cumulative Dose: 0.791 mGy. DAP: 0.0137 mGym2. Images: 7. FINDINGS: Intraoperative fluoroscopy and spot films were performed during a procedure in the OR. A lateral plate and screw is present overlying the distal fibula. A single screw traverses in the AP dimension. An orthopedic device is placed overlying the region of the medial malleolus which was not present previously. Please correlate with Dr. Chirinos's report for complete details. FL/FL guidance in OR IMPRESSION: Intraoperative fluoroscopy and spot films were obtained. Please see Dr. Chirinos's report for complete details.
--- NOTE | 2024-01-21 12:37 | MHC.SHP ---
Pre-Procedural Eval Section A - 24 Hr Update-Section A only Date of Service: 01/21/24 The patient is an INPATIENT: No Changes since office visit: No Cold of Flu in the past 2 weeks, No New Medical Problems, No Changes in Medication and No Patient answered all questions The patient has been examined within 24 hours of the surgical procedure. The History & Physical has been completed within 30 days and I have reviewed it.: Yes Section B - Complete if H&P > 30 days Chief Complaint: Displaced fracture of lateral malleolus of left Allergies: Allergies Allergy/AdvReac Type Severity Reaction Status Date / Time niacin Allergy Severe Upset Verified 01/21/24 12:33 Stomach procaine [From Novocain] Allergy Severe I GET Verified 01/21/24 12:33 MEAN simvastatin AdvReac Severe myopathy Verified 01/21/24 12:33 Plan I have reviewed the history and physical and performed a pertinent physical examination on my patient. No changes have occurred unless specified. Time Spent With Patient Time: Total time managing care of this patient today ____ minutes.
[2024-01-21] MEDS: Lactated Ringers 1,000 ML 100 ML IVCONT (13:07)
--- NOTE | 2024-01-21 13:10 | P.CONAN_ITS ---
Documented by User: Tova Lawson NP 01/20/24 10:19 HPI - Anesthesia Eval Consult details Narrative: 83yo M for Left Ankle Fracture ORIF Follows [facility] cardiology yearly for CAD with circumflex stenting prior to transcatheter aortic valve replacement 2021. Stable at last office visit 06/2023. Follows [facility] pulmo for COPD. Last office visit 11/2023. Stable, mod ORR at baseline [facility] Active Problems Active Problems: All Active Problems Ankle fracture, lateral malleolus, closed (Acute) Impacted cerumen, right ear (Acute) Dizziness (Acute) Hyperlipidemia (Acute) HTN (hypertension) (Acute) S/P TAVR (transcatheter aortic valve replacement) (Acute) CAD (coronary artery disease) (Acute) Murmur, cardiac (Acute) Chest pain (Acute) COPD (chronic obstructive pulmonary disease) (Acute) Asbestosis (Acute) Past Medical History Medical History (Updated 01/13/24 @ 17:33 by NYDIA Jimenez) Hyperlipidemia HTN (hypertension) CAD (coronary artery disease) Murmur, cardiac Chest pain COPD (chronic obstructive pulmonary disease) Asbestosis Family History Family History Father CAD (coronary artery disease) Mother No problems noted. Surgical History Surgical History S/P TAVR (transcatheter aortic valve replacement) Stented coronary artery Hx of cardiac catheterization Social History Social History Patient Tobacco Use Status: Former Tobacco user Tobacco use type: Cigarette and Cigar Years Smoked: 14 years old Smoked in Last 30 Days: No Use of substances other than those prescribed or required for medical reasons: No Are you DNR?: No Advance Directives: No Advance Directives Information Provided: Yes Meds Allergies Allergy/AdvReac Type Severity Reaction Status Date / Time niacin Allergy Severe Upset Verified 01/21/24 12:33 Stomach procaine [From Novocain] Allergy Severe I GET Verified 01/21/24 12:33 MEAN simvastatin AdvReac Severe myopathy Verified 01/21/24 12:33 Home Medications ?Medication ?Instructions ?Recorded ?Confirmed ?Last Taken ?Type albuterol sulfate 90 mcg/actuation 90 mcg inhalation NEEDED PRN 08/23/20 01/21/24 Unknown History aerosol inhaler asthma fluticasone 250 mcg-salmeterol 50 1 inh inhalation BID 03/20/22 01/21/24 Unknown History mcg/dose blistr powdr for inhalation (Shad Inhub) Exam Pertinent Lab Results Pertinent Lab Results: Laboratory Tests 01/10/24 18:51 WBC 7.5 Hgb 13.6 L Hct 39.5 L Plt Count 108 L Sodium 141 Potassium 3.4 Chloride 108 Carbon Dioxide 23 BUN 23 H Creatinine 0.94 Narrative Narrative: EKG 12/2023 Vent. Rate : 072 BPM Atrial Rate : 072 BPM P-R Int : 170 ms QRS Dur : 090 ms QT Int : 392 ms P-R-T Axes : 059 006 022 degrees QTc Int : 429 ms Normal sinus rhythm Minimal voltage criteria for LVH, may be normal variant ( R in aVL ) Borderline ECG When compared with ECG of 29-MAY-2021 07:56, No significant change was found ECHO 06/2023 Conclusions: - The left ventricular systolic function is normal. The visually estimated ejection fraction is between 65-70%. - A bioprosthetic aortic valve is present. The prosthetic aortic valve appears to be functioning normally. Assessment and Plan Assessment Anesthesia Assessment: Chart Reviewed Documented by User: Raine Bond DO 01/21/24 13:12 [facility] Past Medical History Medical History (Updated 01/13/24 @ 17:33 by NYDIA Jimenez) Hyperlipidemia HTN (hypertension) CAD (coronary artery disease) Murmur, cardiac Chest pain COPD (chronic obstructive pulmonary disease) Asbestosis Family History Family History Father CAD (coronary artery disease) Mother No problems noted. Family history of problems with anesthesia: No Surgical History Surgical History S/P TAVR (transcatheter aortic valve replacement) Stented coronary artery Hx of cardiac catheterization History of Problems with Anesthesia: No Social History Social History Patient Tobacco Use Status: Former Tobacco user Tobacco use type: Cigarette and Cigar Years Smoked: 14 years old Smoked in Last 30 Days: No Use of substances other than those prescribed or required for medical reasons: No Are you DNR?: No Advance Directives: No Advance Directives Information Provided: Yes Meds Allergies Allergy/AdvReac Type Severity Reaction Status Date / Time niacin Allergy Severe Upset Verified 01/21/24 12:33 Stomach procaine [From Novocain] Allergy Severe I GET Verified 01/21/24 12:33 MEAN simvastatin AdvReac Severe myopathy Verified 01/21/24 12:33 Home Medications ?Medication ?Instructions ?Recorded ?Confirmed ?Last Taken ?Type albuterol sulfate 90 mcg/actuation 90 mcg inhalation NEEDED PRN 08/23/20 01/21/24 Unknown History aerosol inhaler asthma fluticasone 250 mcg-salmeterol 50 1 inh inhalation BID 03/20/22 01/21/24 Unknown History mcg/dose blistr powdr for inhalation (Shad Montgomery) Exam Exam Date and Time: January 21, 2024 1310 Height,Weight and Vital Signs: Height 5 ft 6 in Weight 87.543 kg Vital Signs Temperature 98.0 F 01/21/24 12:29 Pulse Rate 80 01/21/24 12:29 Respiratory Rate 16 01/21/24 12:29 Blood Pressure 138/65 01/21/24 12:29 Pulse Oximetry 96 01/21/24 12:29 Oxygen Delivery Method Room Air 01/21/24 12:29 Temperature 98.0 F 01/21/24 12:29 Pulse Rate 80 01/21/24 12:29 Respiratory Rate 16 01/21/24 12:29 Blood Pressure 138/65 01/21/24 12:29 Pulse Oximetry 96 01/21/24 12:29 Oxygen Delivery Method Room Air 01/21/24 12:29 Airway Mallampati Class: I TM Dist: >3cm Neck ROM: Full Denture: Upper and Lower Loose/Missing/Broken Teeth: Yes (edentulous - dentures removed) Heart: S1S2 Lungs: Diminished bilaterally Assessment and Plan Assessment Anesthesia Assessment: Anesthesia Plan Discussed and Chart Reviewed Final Anesthetic Review Family History of Problems with Anesthesia: No History of Problems with Anesthesia: No NPO: Yes ASA Class: III Final Preanesthetic Review: No Changes in Pt Med Stat, Meds/Allgs Chart Re viewed, Consent Obtained/Reviewed and Anes Risks/Benef Reviewed Patient Risk: High Procedure Risk: Intermediate Anesthetic Plan Anesthetic Plan: GA, Regional Block (left addictor canal and left sciatic nerve blocks) and Agree w/ Assess. and Plan Disposition: Standard PACU
--- NOTE | 2024-01-21 16:09 | PM.OP ---
Brief Operative Note Date of Service: 01/21/24 Pre-op diagnosis: left lateral mal fx Post-op diagnosis: other (1) same 2) syndesmosis rupture left ankle) Procedure: 1- ORIF lateral malleolus 2-ORIF syndesmosis Implants: Beverly distal fibular locking plate Beverly syndesmosis suture button Surgeon: Jonnathan Chirinos MD Anesthesia: GLMA and regional Was an Container Packer Operator used for this Procedure?: No Estimated blood loss (mL): 25 Tourniquet time (min): 40 IV fluids (mL): 800 Pathology: none sent Condition: stable Disposition: PACU Assessment and Plan (No Qualifiers) Assessment and Plan (1) Ankle fracture, lateral malleolus, closed: Status: Acute Plan: NWB Change to short leg cast at 10-14 days after lux out PWB in boot at 6 weeks post op
--- NOTE | 2024-01-29 07:27 | P.OP_ITS ---
Operative Note Operative Note Date of Service: 01/21/24 Narrative: Date of Service: 01/21/24 Pre-op diagnosis: left lateral mal fx Post-op diagnosis: other (1) same 2) syndesmosis rupture left ankle) Procedure: 1- ORIF lateral malleolus 2-ORIF syndesmosis Implants: [employer] distal fibular locking plate [employer] syndesmosis Synchfix Surgeon: Jonnathan Chirinos MD Anesthesia: GLMA and regional Was an Senior Compliance Officer used for this Procedure?: No Estimated blood loss (mL): 25 Tourniquet time (min): 40 IV fluids (mL): 800 Pathology: none sent Condition: stable Disposition: PACU Procedure in detail: Patient was brought to the operating room and placed supine on the operative table. All bony prominences were well padded and a time-out was called to identify proper site proper procedure proper surgeon. IV antibiotics per weight were administered. I began by exsanguinating limb is slightly tourniquet to 300 mm Hg. I then made a standard posterolateral incision over the fibula. Full- thickness flaps were taken down to the fibular shaft and distal fibula. The fracture was identified and cleaned with a combination of curette, rongeur and irrigation. A lobster claw was used to provisionally reduce the fracture and a lag screw was placed obliquely from postyerio to anterior. I then selected a 6 hole distal fibular locking plate was applied using standard AO technique. Biplanar fluoroscopy was used to confirm hardware position and fracture reduction. Once I was satisfied that both of these were acceptable I irrigated copiously and turned my attention to the Syndesmosis. An external rotation stress test revealed an increased medial justyna space and so a Synchfix was selected and inserted through the lateral place at the level of the syndesmosis iwth a k wire and iwth slight superior inclination. The Synch fix button was ten placed into the place and medially, a dani incision was made and the suture button attached and then the device was tightened. An external rotation stress test was then performed again and I was asatisfied with the symmetry of the mortise. All instrumentation was then removed and copious irrigation was performed. Absorbable suture and lux were used for closure and the patient was placed into sterile dressings and a well-padded posterior splint. Tourniquet was let down and the patient was extubated brought to recovery room in stable condition there were no known complications.
== END 2024-01-21 17:25 | disposition home or self-care (01) ==
PROVIDERS: Visit Provider Orthopaedic Surgery
PROC: (CPT 27792; principal; 2024-01-21 15:40)
DX: S82.62XA Displaced fracture of lateral malleolus of left fibula, initial encounter for closed fracture (principal); V28.49XA Other motorcycle driver injured in noncollision transport accident in traffic accident, initial encounter; Y93.55 Activity, bike riding; Y92.9 Unspecified place or not applicable; Y99.8 Other external cause status; I10 Essential (primary) hypertension; E78.5 Hyperlipidemia, unspecified; I25.10 Atherosclerotic heart disease of native coronary artery without angina pectoris; Z95.5 Presence of coronary angioplasty implant and graft; Z95.2 Presence of prosthetic heart valve; J44.9 Chronic obstructive pulmonary disease, unspecified; J61 Pneumoconiosis due to asbestos and other mineral fibers; Z87.891 Personal history of nicotine dependence
CPT/HCPCS: 27792; C1713; J0131; J0690; J1100; J2704; J2795; J3010

== ENCOUNTER → 2024-01-21 11:40 | Outpatient (BNV) | payer OTHER, SELFPAY | PROVIDERS: Visit Provider Orthopaedic Surgery | DX: S82.62XA Displaced fracture of lateral malleolus of left fibula, initial encounter for closed fracture (principal) | CPT/HCPCS: 27792 ==

== ENCOUNTER 2024-01-27 09:37 | Outpatient (REF) | payer OTHER, SELFPAY ==
--- NOTE | ~2024-01-27 | XR_ITS ---
EXAMINATION: XR ANKLE, LEFT CLINICAL INFORMATION: Pain in the left ankle. COMPARISON: X-ray the left ankle 12/14/2023. TECHNIQUE: AP, lateral, and mortise views of the left ankle. FINDINGS: Postoperative changes with plate and screw fixation along the distal fibula crossing the area of previously noted fibular fracture with overlying skin lux. Overall, improved alignment. Additional orthopedic device overlying the medial cortex of the distal tibia. The medial clear space appears normal indicating improved alignment of the talocrural joint. Chondrocalcinosis of the talocrural joint. Tiny calcification plantar to the calcaneal tuberosity perhaps related to old tear of the proximal plantar fascia or plantar fasciitis. XR/XR ankle LT min 3V IMPRESSION: 1. Postoperative changes. Overall improved alignment of the talocrural joint and distal fibular fracture compared with the preoperative exams. 2. Chondrocalcinosis. 3. Tiny calcification plantar to the calcaneal tuberosity perhaps related to old tear the proximal plantar fascia or plantar fasciitis.
== END 2024-01-27 09:38 | disposition home or self-care (01) ==
LOC: HO.HOSX 09:37
DX: M25.572 Pain in left ankle and joints of left foot (principal); S82.62XD Displaced fracture of lateral malleolus of left fibula, subsequent encounter for closed fracture with routine healing; X58.XXXD Exposure to other specified factors, subsequent encounter
CPT/HCPCS: 29405; 73610; 99212

== ENCOUNTER 2024-01-27 12:55 | Outpatient (AMB) | payer OTHER, SELFPAY ==
--- NOTE | 2024-01-27 13:09 | MHC.OFFVIS ---
Intake Visit Reasons: PO LT ankle ORIF 01/21/24 NE Intake Note: Reed is a 83 year old male who presents with his daughter today post operatively s/p left ankle ORIF 01/21/24 w/ NE. Patient reports aching since his surgery. He expresses he felt like his splint was too tight causing discomfort. Accompanied by: Daughter Allergies niacin Allergy (Severe, Verified 01/27/24 13:15) Upset Stomach procaine [From Novocain] Allergy (Severe, Verified 01/27/24 13:15) I GET MEAN simvastatin Adverse Reaction (Severe, Verified 01/27/24 13:15) myopathy HPI HPI PO LT ankle ORIF 01/21/24 NE: Details: Patient is an 83 YO M who presents for one week post-op appointment s/p LT ankle ORIF, DOS 01/21/24. Patient reports that he has been experiencing some achy pain since surgery, but that he has only been taking tylenol as he is not comfortable taking the other pain medications prescribed to him. The patient also reports that he felt the splint he was fitted in after surgery was too tight, and this was causing him some discomfort. Patient reports no other acute concerns at this time. [facility] Medical History Hyperlipidemia HTN (hypertension) CAD (coronary artery disease) Murmur, cardiac Chest pain COPD (chronic obstructive pulmonary disease) Asbestosis Surgical History S/P TAVR (transcatheter aortic valve replacement) Stented coronary artery Hx of cardiac catheterization Family History Father CAD (coronary artery disease) Mother No problems noted. Social History Patient Tobacco Use Status: Former Tobacco user Tobacco use type: Cigarette and Cigar Years Smoked: 14 years old Physical Exam Extrem Other: On examination, incision sites on the L ankle are clean, dry, intact, no evidence of infection or dehiscence Vero in place Noted edema and ecchymosis of the L foot and ankle noted, improved from pre-operatively Sensation intact to the distal LLE Cap refill brisk Office Procedures Casting/Splints [id number] Leg Cast Application Procedure code (CPT) selection complete Assessment & Plan Assessment & Plan (1) Ankle fracture, lateral malleolus, closed: Code(s): S82.63XA - Displaced fracture of lateral malleolus of unspecified fibula, initial encounter for closed fracture Category: Medical Qualifiers: Encounter type: initial encounter Fracture alignment: displaced Laterality: left Qualified Code(s): S82.62XA - Displaced fracture of lateral malleolus of left fibula, initial encounter for closed fracture Plan 1. Left lateral malleolus fracture, s/p ORIF DOS 01/21/24 Patient is recovering well post-operatively Patient is educated about the typical post-operative course Incision sites re-dressed, and Patient placed in a cast today Patient is educated about proper cast care and precautions, and to call the office if the cast gets wet, overly dirty, or feels as if it is too tight or too losose Patient will follow up in 1 week for cast off, repeat X rays, incision check Vero can be removed next week if wound healing continues to progress well Patient can follow up sooner with any acute concerns Orders: Orders XR ankle LT min 3V Today M25.572 - Pain in left ankle and joints of left foot Coding Level of Care Code Global (63249) Diagnoses Closed displaced fracture of lateral malleolus of left fibula, initial encounter S82.62XA Encounter type: initial encounter Fracture alignment: displaced Laterality: left CPT Codes Casting - CPT: 86805-Tvien Leg Cast Application ([id number])
== END 2024-01-27 13:56 | disposition home or self-care (01) ==
PROVIDERS: Referring Provider Internal Medicine
DX: S82.62XA Displaced fracture of lateral malleolus of left fibula, initial encounter for closed fracture (principal)
CPT/HCPCS: 29405; 99024

== ENCOUNTER 2024-02-04 08:04 | Outpatient (REF) | payer OTHER, SELFPAY ==
--- NOTE | ~2024-02-04 | XR_ITS ---
EXAMINATION: XR ANKLE, LEFT CLINICAL INFORMATION: Left ankle pain status post ORIF. COMPARISON: January 27, 2024. TECHNIQUE: AP, lateral, and mortise views of the left ankle. FINDINGS: There has been no significant radiographic change compared with January 27, 2024. Examination again demonstrates metallic fixation plate and screws over the distal fibula as well as presumed anchor device over the medial malleolus. Overlying skin lux. No evidence of hardware fracture or loosening. No new fracture or dislocation identified. Bony mineralization appears preserved. No lytic or sclerotic bony lesion identified. 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 Tiny calcification plantar to the calcaneal tuberosity, possibly related to old tear of the proximal plantar fascia or plantar fasciitis. XR/XR ankle LT min 3V IMPRESSION: Findings as above.
== END 2024-02-04 08:05 | disposition home or self-care (01) ==
LOC: HO.HOSX 08:04
DX: S82.62XD Displaced fracture of lateral malleolus of left fibula, subsequent encounter for closed fracture with routine healing (principal)
CPT/HCPCS: 73610; 99212

== ENCOUNTER 2024-02-04 15:14 | Outpatient (AMB) | payer OTHER, SELFPAY ==
--- NOTE | 2024-02-04 15:33 | A.OFFVIS_ITS ---
Intake Visit Reasons: PO-Staple removal s/p LT ankle ORIF 01/21/24 NE Intake Note: Reed is a 83 year old male who presents with his daughter today post operatively s/p left ankle ORIF 01/21/24 w/ NE. Patient reports no pain today. Vero removed today. Allergies niacin Allergy (Severe, Verified 02/04/24 15:33) Upset Stomach procaine [From Novocain] Allergy (Severe, Verified 02/04/24 15:33) I GET MEAN simvastatin Adverse Reaction (Severe, Verified 02/04/24 15:33) myopathy HPI HPI PO-Staple removal s/p LT ankle ORIF 01/21/24 NE: Details: Patient is a 83-year-old male who presents for 2 week postoperative follow-up status post left ankle open reduction and internal fixation, DOS 01/21/[address] Chirinos. Patient reports that he is feeling well, that his edema overall h as improved, but ?it comes and goes?. The patient reports no pain at this time, and then he has been totally nonweightbearing since DOS. Patient has no other acute concerns or complaints at this time. [facility] Medical History Hyperlipidemia HTN (hypertension) CAD (coronary artery disease) Murmur, cardiac Chest pain COPD (chronic obstructive pulmonary disease) Asbestosis Surgical History S/P TAVR (transcatheter aortic valve replacement) Stented coronary artery Hx of cardiac catheterization Family History Father CAD (coronary artery disease) Mother No problems noted. Social History Patient Tobacco Use Status: Former Tobacco user Tobacco use type: Cigarette and Cigar Years Smoked: 14 years old Physical Exam Extrem Other: On inspection, there is [id number] edema of the left ankle, as well as old ecchymosis, improved from last visit No erythema or evidence of infection noted Patient reports no tenderness to palpation of the ankle at this time Incision sites appear to be healing well, no evidence of discharge or infection noted Primrose in place at this time Distal sensation intact Capillary refill brisk Compartments soft, nontender Results Reviewed Results Reviewed: X-rays obtained in the office today and independently reviewed by me, Demetrius Contreras PA-C, demonstrate well approximated fracture of the left lateral malleolus with plate and screws in place, no evidence of screw withdrawal or lucency around hardware. Assessment & Plan Assessment & Plan (1) Ankle fracture, lateral malleolus, closed: Code(s): S82.63XA - Displaced fracture of lateral malleolus of unspecified fibula, initial encounter for closed fracture Category: Medical Qualifiers: Encounter type: initial encounter Fracture alignment: displaced Laterality: left Qualified Code(s): S82.62XA - Displaced fracture of lateral malleolus of left fibula, initial encounter for closed fracture Plan 1. Left lateral malleolus fracture status post open reduction and internal fixation with Dr. Candis CARTWRIGHT 01/21/2024 Patient is recovering well postoperatively Patient is educated about the typical recovery course Primrose removed Patient is placed back into a cast Patient is educated about proper cast care and precautions Patient is educated that he will be totally nonweightbearing for a further 4 weeks at this time to promote healing and prevent displacement Patient is amenable to this plan Patient reports that he has been able to get by with total nonweightbearing of his left leg well since DOS Patient will follow-up in 4 weeks with repeat x-rays with cast off for reassessment, sooner with any acute concerns Orders: Orders XR ankle LT min 3V Today M25.572 - Pain in left ankle and joints of left foot Coding Level of Care Code Global (40292) Diagnoses Closed displaced fracture of lateral malleolus of left fibula, initial encounter S82.62XA Encounter type: initial encounter Fracture alignment: displaced Laterality: left
== END 2024-02-04 17:01 | disposition home or self-care (01) ==
PROVIDERS: Referring Provider Internal Medicine
DX: S82.62XA Displaced fracture of lateral malleolus of left fibula, initial encounter for closed fracture (principal)
CPT/HCPCS: 99024

== ENCOUNTER 2024-03-02 12:02 | Outpatient (REF) | payer OTHER, SELFPAY | END 2024-03-02 12:03 | disposition home or self-care (01) | LOC: HO.HOSX 12:02 | DX: Z13.89 Encounter for screening for other disorder (principal) ==

== ENCOUNTER 2024-03-03 15:35 | Outpatient (AMB) | payer OTHER, SELFPAY ==
--- NOTE | 2024-03-03 16:11 | A.OFFVIS_ITS ---
Intake Visit Reasons: PO - Lt Ankle ORIF 01/21/24 Intake Note: Reed is a 83 year old male who presents with his daughter today post operatively s/p left ankle ORIF 01/21/24 w/ NE. Patient reports he is doing well, he denies any pain. He mentions bumping his 4th toe and now having discomfort on his toenail. Allergies niacin Allergy (Severe, Verified 03/03/24 16:13) Upset Stomach procaine [From Novocain] Allergy (Severe, Verified 03/03/24 16:13) I GET MEAN simvastatin Adverse Reaction (Severe, Verified 03/03/24 16:13) myopathy HPI HPI PO - Lt Ankle ORIF 01/21/24 : Details: Patient is an 83-year-old male who presents for postoperative evaluation of left ankle ORIF with Dr. Chirinos, CHAY 01/21/2024. Today, the patient reports that he is feeling well, and then he is experiencing no pain in his ankle at this time. Patient reports that he has been compliant with nonweightbearing since DOS. The patient does report that he ?stubbed his toe? 4-5 days ago, and then he has not iced that the toenail lifted and is experiencing discomfort, redness, and discharge from under the toenail. The patient reports that he is trying to keep the area clean and dry, and his daughter reports that she has been applying antibiotic ointment to the area since date of injury. Patient denies any numbness or tingling in the left lower extremity at this time. No other acute complaints or concerns. [facility] Medical History Hyperlipidemia HTN (hypertension) CAD (coronary artery disease) Murmur, cardiac Chest pain COPD (chronic obstructive pulmonary disease) Asbestosis Surgical History S/P TAVR (transcatheter aortic valve replacement) Stented coronary artery Hx of cardiac catheterization Family History Father CAD (coronary artery disease) Mother No problems noted. Social History Patient Tobacco Use Status: Former Tobacco user Tobacco use type: Cigarette and Cigar Years Smoked: 14 years old Physical Exam Extrem Other: On inspection, there is noted to be large amounts of dry skin present throughout the left foot and ankle Incision sites are well healing, clean, dry, intact No evidence of discharge No erythema, ecchymosis, evidence of infection noted from the incision sites Very mild edema noted of the left foot, improved from last visit Of note, there is noted to be a lifted toenail on the patient's left 4th toe, with erythema noted around the toenail and small amounts of purulent discharge noted under the toenail. Patient reports no tenderness to palpation about the left ankle Patient is able to plantar flex and dorsiflex the foot, as well as flex and extend all digits of the left foot Distal sensation intact Capillary refill brisk Results Reviewed Results Reviewed: X-rays obtained in the office today and independently reviewed by me, Demetrius Contreras PA-C, demonstrate surgically repaired fracture of the lateral malleolus of the left ankle, in satisfactory clinical alignment and with hardware in place. There is evidence of interval bony healing. No other fracture or acute bony abnormality noted. Assessment & Plan Assessment & Plan (1) Ankle fracture, lateral malleolus, closed: Code(s): S82.63XA - Displaced fracture of lateral malleolus of unspecified fibula, initial encounter for closed fracture Category: Medical Qualifiers: Encounter type: initial encounter Fracture alignment: displaced Laterality: left Qualified Code(s): S82.62XA - Displaced fracture of lateral malleolus of left fibula, initial encounter for closed fracture Plan 1. Left lateral malleolus fracture status post ORIF with Dr. Chirinos DOS 01/21/2024 Patient is discussed with Dr. Chirinos, who was not available to see the patient in the office at this time, and a collaborative treatment plan was formed: Patient appears to be recovering well postoperatively Patient is educated about the typical recovery course At this time, the patient can be removed from a cast and placed into a walking boot, and can weightbear as tolerated in his long as he is in the boot Patient is amenable to this plan Patient is educated that he should not weight bear at all without the boot on, as this could lead to destabilization of the surgery site Patient is also educated that he should allow for rest if he notices any discomfort in the left ankle while weight-bearing Patient is also educated that he should follow-up with podiatry for his lifted toenail as soon as possible Patient is amenable to this plan Patient will follow-up in 4 weeks with repeat x-rays for reassessment, sooner with any acute concerns Orders: Orders XR ankle LT min 3V 03/03/24 M25.572 - Pain in left ankle and joints of left foot Coding Level of Care Code Global (17939) Diagnoses Closed displaced fracture of lateral malleolus of left fibula, initial encounter S82.62XA Encounter type: initial encounter Fracture alignment: displaced Laterality: left
== END 2024-03-03 16:46 | disposition home or self-care (01) ==
PROVIDERS: Referring Provider Internal Medicine
DX: S82.62XA Displaced fracture of lateral malleolus of left fibula, initial encounter for closed fracture (principal)
CPT/HCPCS: 99024

== ENCOUNTER 2024-03-03 15:35 | Outpatient (REF) | payer OTHER, SELFPAY ==
--- NOTE | ~2024-03-03 | XR_ITS ---
EXAMINATION: XR ANKLE, LEFT CLINICAL INFORMATION: Pain. COMPARISON: Prior radiographs, most recently 02/04/2024. TECHNIQUE: AP, lateral, and mortise views of the left ankle. FINDINGS: Bony alignment and mineralization are normal. The ankle mortise is intact. There is intact orthopedic hardware applied to the lateral malleolus, and syndesmotic tight rope hardware is again noted. No acute fracture, dislocation or joint effusion is seen. Boehler's angle is normal. There is a small plantar calcaneal spur. There are tiny calcifications of the posterior plantar aponeurosis. No soft tissue gas or foreign body is seen. XR/XR ankle LT min 3V IMPRESSION: No fracture, dislocation or joint effusion is presently seen. There is an intact orthopedic hardware, as detailed. Electronically signed by: Jaime Joshi MD 03/26/2024 03:01 PM EDT
== END 2024-03-03 15:36 | disposition home or self-care (01) ==
LOC: HO.HOSX 15:35
DX: S82.62XD Displaced fracture of lateral malleolus of left fibula, subsequent encounter for closed fracture with routine healing (principal)
CPT/HCPCS: 73610; 99212

== ENCOUNTER 2024-03-31 14:50 | Outpatient (AMB) | payer OTHER, SELFPAY ==
--- NOTE | 2024-03-31 15:38 | A.OFFVIS_ITS ---
Vital Signs 03/31/24 15:41 Height 5 ft 6 in Weight 193 lb BMI 31.1 Intake Visit Reasons: PO - Lt Ankle ORIF 01/21/24 Intake Note: Reed is a 83 year old male who presents with his daughter today post operatively s/p left ankle ORIF 01/21/2024 w/ Dr Chirinos. Patient reports he continues to have on and off numbness and tingling. He denies any pain today. He would like to be off the boot. Allergies niacin Allergy (Severe, Verified 03/31/24 15:42) Upset Stomach procaine [From Novocain] Allergy (Severe, Verified 03/31/24 15:42) I GET MEAN simvastatin Adverse Reaction (Severe, Verified 03/31/24 15:42) myopathy HPI HPI PO - Lt Ankle ORIF 01/21/24: Details: Patient is an 83-year-old male who presents for follow-up evaluation status post left ankle ORIF, DOS 01/21/2024. Today, the patient reports that he is feeling very well, and then he is not experiencing any pain in the left ankle, only some mild swelling. Patient reports that he has been using the boot whenever he is weight-bearing, but states that he would like to be removed from the boot at this time, as he finds it quite irritating to wear with his jeans as well as cumbersome for yd work. Patient denies any total numbness or tingling in the left lower extremity, but states that he feels his sensation is different in the left leg since his injury. No other acute complaints or concerns at this time. [facility] Medical History Hyperlipidemia HTN (hypertension) CAD (coronary artery disease) Murmur, cardiac Chest pain COPD (chronic obstructive pulmonary disease) Asbestosis Surgical History S/P TAVR (transcatheter aortic valve replacement) Stented coronary artery Hx of cardiac catheterization Family History Father CAD (coronary artery disease) Mother No problems noted. Social History Patient Tobacco Use Status: Former Tobacco user Tobacco use type: Cigarette and Cigar Years Smoked: 14 years old Physical Exam Vital Signs: BMI result Body Mass Index 31.1 Extrem Other: On inspection, there is noted to be large amounts of dry skin present throughout the left foot and ankle Incision sites are well healed No evidence of discharge No erythema, ecchymosis, evidence of infection noted from the incision sites Very mild edema noted of the left foot, improved from last visit Patient reports no tenderness to palpation about the left ankle Patient is able to plantar flex and dorsiflex the foot, as well as flex and extend all digits of the left foot Distal sensation intact Capillary refill brisk Results Reviewed Results Reviewed: X-rays obtained in the office today and independently reviewed by me, Demetrius Contreras PA-C, demonstrate well approximated fracture of the distal fibula of the left ankle, with orthopedic hardware in place and in satisfactory clinical alignment. Assessment & Plan Assessment & Plan (1) Ankle fracture, lateral malleolus, closed: Code(s): S82.63XA - Displaced fracture of lateral malleolus of unspecified fibula, initial encounter for closed fracture Category: Medical Qualifiers: Encounter type: initial encounter Fracture alignment: displaced Laterality: left Qualified Code(s): S82.62XA - Displaced fracture of lateral malleolus of left fibula, initial encounter for closed fracture Plan 1. Left fibula fracture status post ankle ORIF DOS 01/21/[address] Chirinos Patient appears to be recovering well from his procedure Patient is educated about the typical recovery course Patient is educated that, at this time, he should continue to wear the walking boot for a further 2 weeks until he is a full 3 months removed from surgery Patient is also educated that at that time, we can change his physical therapy orders from range of motion to proprioceptive training in order to get the fine motor function of the left foot as normal as possible Patient is amenable to this plan Patient will follow-up in 2 weeks with repeat x-rays for 3 months postoperative evaluation, sooner with any acute concerns Orders: Orders XR ankle LT min 3V Today M25.572 - Pain in left ankle and joints of left foot Coding Level of Care Code Global (11502) Diagnoses Closed displaced fracture of lateral malleolus of left fibula, initial encounter S82.62XA Encounter type: initial encounter Fracture alignment: displaced Laterality: left
[2024-03-31 15:41] VITALS: BMI 31.1
== END 2024-03-31 15:55 | disposition home or self-care (01) ==
PROVIDERS: Referring Provider Internal Medicine
DX: S82.62XA Displaced fracture of lateral malleolus of left fibula, initial encounter for closed fracture (principal)
CPT/HCPCS: 99024

== ENCOUNTER 2024-03-31 15:06 | Outpatient (REF) | payer OTHER, SELFPAY ==
--- NOTE | ~2024-03-31 | XR_ITS ---
EXAMINATION: XR ANKLE, LEFT CLINICAL INFORMATION: Pain in left ankle. COMPARISON: Multiple prior examinations most recent March 03, 2024. TECHNIQUE: AP, lateral, and mortise views of the left ankle. FINDINGS: Postoperative changes redemonstrated. unchanged. Mortise remains intact. Fracture not clearly conspicuous but overall unchanged alignment. Remaining bones, joints and soft tissues unremarkable. XR/XR ankle LT min 3V IMPRESSION: 1. Stable postoperative changes. 2. Fracture not clearly conspicuous but unchanged alignment. Electronically signed by: Rogelio Arevalo MD 04/23/2024 07:27 AM EDT
== END 2024-03-31 15:07 | disposition home or self-care (01) ==
LOC: HO.HOSX 15:06
PROVIDERS: PCP Internal Medicine
DX: M25.572 Pain in left ankle and joints of left foot (principal); M25.472 Effusion, left ankle; S82.62XD Displaced fracture of lateral malleolus of left fibula, subsequent encounter for closed fracture with routine healing; X58.XXXD Exposure to other specified factors, subsequent encounter; Z98.890 Other specified postprocedural states
CPT/HCPCS: 73610; 99212

== ENCOUNTER 2024-04-14 15:04 | Outpatient (AMB) | payer OTHER, SELFPAY ==
--- NOTE | 2024-04-14 15:35 | MHC.OFFVIS ---
Vital Signs 04/14/24 15:37 Height 5 ft 6 in Weight 193 lb BMI 31.1 Intake Visit Reasons: PO - Lt Ankle ORIF 01/21/24-2 week follow up Intake Note: Reed is a 83 year old male who presents with his daughter today post operatively s/p left ankle ORIF 01/21/2024 w/ Dr Chirinos. Patient reports he is doing well, states some discomfort with certain movements of his leg. He is hoping to be out of walking boot today. Allergies niacin Allergy (Severe, Verified 04/14/24 15:37) Upset Stomach procaine [From Novocain] Allergy (Severe, Verified 04/14/24 15:37) I GET MEAN simvastatin Adverse Reaction (Severe, Verified 04/14/24 15:37) myopathy HPI HPI PO - Lt Ankle ORIF 01/21/24-2 week follow up: Details: Patient is an 83-year-old male who presents for follow-up evaluation status post left ankle ORIF, DOS 01/21/2024. Today, the patient reports that he is feeling very well, and then he is not experiencing any pain in the left ankle, only some mild swelling. Patient reports that he has been using the boot whenever he is weight-bearing, but states that he would like to be removed from the boot at this time, as he finds it quite irritating to wear with his jeans as well as cumbersome for yd work. Patient denies any total numbness or tingling in the left lower extremity, but states that he feels his sensation is different in the left leg since his injury. No other acute complaints or concerns at this time. [facility] Medical History Hyperlipidemia HTN (hypertension) CAD (coronary artery disease) Murmur, cardiac Chest pain COPD (chronic obstructive pulmonary disease) Asbestosis Surgical History S/P TAVR (transcatheter aortic valve replacement) Stented coronary artery Hx of cardiac catheterization Family History Father CAD (coronary artery disease) Mother No problems noted. Social History Patient Tobacco Use Status: Former Tobacco user Tobacco use type: Cigarette and Cigar Years Smoked: 14 years old Review of Systems Const All systems reviewed & are unremarkable except as noted in HPI and below Physical Exam Vital Signs: BMI result Body Mass Index 31.1 Extrem Other: On inspection, there is no deformity of the L ankle Incision sites are well healed No evidence of discharge No erythema, ecchymosis, evidence of infection noted from the incision sites Very mild edema noted of the left foot, improved from last visit Patient reports no tenderness to palpation about the left ankle Patient is able to plantar flex and dorsiflex the foot, as well as flex and extend all digits of the left foot Distal sensation intact Capillary refill brisk Assessment & Plan Assessment & Plan (1) Ankle fracture, lateral malleolus, closed: Code(s): S82.63XA - Displaced fracture of lateral malleolus of unspecified fibula, initial encounter for closed fracture Category: Medical Qualifiers: Encounter type: initial encounter Fracture alignment: displaced Laterality: left Qualified Code(s): S82.62XA - Displaced fracture of lateral malleolus of left fibula, initial encounter for closed fracture Plan 1. Left fibula fracture status post ankle ORIF DOS 01/21/[address] Chirinos Patient appears to be recovering well from his procedure Patient is educated about the typical recovery course Patient is removed from the boot at this time, and is given a lace up ankle brace to wear during the day with supportive footwear. Patient is also educated that at that time, we can change his physical therapy orders from range of motion to proprioceptive training in order to get the fine motor function of the left foot as normal as possible Patient is amenable to this plan Patient will follow-up in 8-10 weeks for repeat assessment, sooner with any acute concerns. Coding Level of Care Code Global (53956) Diagnoses Closed displaced fracture of lateral malleolus of left fibula, initial encounter S82.62XA Encounter type: initial encounter Fracture alignment: displaced Laterality: left
[2024-04-14 15:37] VITALS: BMI 31.1
== END 2024-04-14 16:11 | disposition home or self-care (01) ==
PROVIDERS: PCP Internal Medicine
DX: S82.62XA Displaced fracture of lateral malleolus of left fibula, initial encounter for closed fracture (principal)
CPT/HCPCS: 99024

== ENCOUNTER → 2024-04-14 15:04 | Outpatient (BNVA) | payer OTHER, SELFPAY | PROVIDERS: PCP Internal Medicine | DX: S82.62XD Displaced fracture of lateral malleolus of left fibula, subsequent encounter for closed fracture with routine healing (principal); X58.XXXD Exposure to other specified factors, subsequent encounter; Z98.890 Other specified postprocedural states | CPT/HCPCS: 99212 ==

== ENCOUNTER 2024-05-08 08:57 | Outpatient (REF) | payer OTHER, SELFPAY | END 2024-05-08 08:58 | disposition home or self-care (01) | LOC: HO.HOSX 08:57 | DX: M25.572 Pain in left ankle and joints of left foot (principal) | CPT/HCPCS: 73610; 99212 ==

== ENCOUNTER 2024-05-08 09:42 | Outpatient (AMB) | payer OTHER, SELFPAY ==
[2024-05-08 09:55] VITALS: BMI 31.1
--- NOTE | 2024-05-08 09:55 | A.OFFVIS_ITS ---
Vital Signs 05/08/24 09:55 Height 5 ft 6 in Weight 193 lb BMI 31.1 Intake Visit Reasons: OV - Left Ankle ORIF 01/21/24 Intake Note: Reed is a 83 year old male that presents in the office today with a ankle ORIF. Patient states that he has pain when weight is put on his foot, he takes Tylenol for pain and elevates his leg at bedtime. Allergies niacin Allergy (Severe, Verified 05/08/24 10:00) Upset Stomach procaine [From Novocain] Allergy (Severe, Verified 05/08/24 10:00) I GET MEAN simvastatin Adverse Reaction (Severe, Verified 05/08/24 10:00) myopathy HPI HPI OV - Left Ankle ORIF 01/21/24: Details: Patient is a 83-year-old male who presents for postoperative evaluation status post left ankle ORIF, DOS 01/21/[address] Chirinos. Today, the patient reports that over the last day or 2, he may have ?overdone it?, stating that he was loading a dumpster from his house, and did not take many breaks. The patient reports that since that time, he began to notice increasing pain and swelling in the operative ankle, and became concerned that he may have re-injured it. Patient states that elevation has helped, as well as [id number]-ohcoack pain medication. No other acute complaints or concerns at this time. [facility] Medical History Hyperlipidemia HTN (hypertension) CAD (coronary artery disease) Murmur, cardiac Chest pain COPD (chronic obstructive pulmonary disease) Asbestosis Surgical History S/P TAVR (transcatheter aortic valve replacement) Stented coronary artery Hx of cardiac catheterization Family History Father CAD (coronary artery disease) Mother No problems noted. Social History Patient Tobacco Use Status: Former Tobacco user Tobacco use type: Cigarette and Cigar Years Smoked: 14 years old Review of Systems Const All systems reviewed & are unremarkable except as noted in HPI and below Physical Exam Vital Signs: BMI result Body Mass Index 31.1 Extrem Other: On inspection, there is no deformity of the L ankle Incision sites are well healed No evidence of discharge No erythema, ecchymosis, evidence of infection noted from the incision sites mild edema noted of the left lateral malleolus Patient reports mild tenderness to palpation about the left lateral malleolus Patient is able to plantar flex and dorsiflex the foot, as well as flex and extend all digits of the left foot Distal sensation intact Capillary refill brisk Results Reviewed Results Reviewed: X-rays obtained in the office today and independently reviewed by me, Demetrius Contreras PA-C, demonstrate well-healing fracture of the left lateral malleolus with orthopedic hardware in place and in satisfactory clinical alignment. No evidence of re fracture, damage to orthopedic hardware, or other injury Assessment & Plan Assessment & Plan (1) Ankle fracture, lateral malleolus, closed: Code(s): S82.63XA - Displaced fracture of lateral malleolus of unspecified fibula, initial encounter for closed fracture Category: Medical Qualifiers: Encounter type: initial encounter Fracture alignment: displaced Laterality: left Qualified Code(s): S82.62XA - Displaced fracture of lateral malleolus of left fibula, initial encounter for closed fracture Plan 1. Fracture of the left lateral malleolus status post open reduction internal fixation DOS 01/21/2024 Case was discussed with Dr. Chirinos, who is not available to see the patient with me today, and a collaborative treatment plan was formed: After review of x-rays, it was deemed that the patient did not shift his hardware or re-injure the fracture in his left lateral malleolus Patient is educated that he should continue to modify his activities in order to prevent exacerbation of symptoms and or re-injury Patient is educated on elevation, and conservative pain management measures as needed for discomfort Patient is educated that he should be undergoing a more gentle ramp up to normal activity, instead of overdoing it at 1 time. Patient expresses understanding of this Patient will follow-up in 4 weeks with repeat x-rays, sooner with any acute concerns Orders: Orders XR ankle LT min 3V 05/08/24 M25.572 - Pain in left ankle and joints of left foot Coding Level of Care Code Est Pt Level 3 (64698) Diagnoses Closed displaced fracture of lateral malleolus of left fibula, initial encounter S82.62XA Encounter type: initial encounter Fracture alignment: displaced Laterality: left
== END 2024-05-08 10:21 | disposition home or self-care (01) ==
PROVIDERS: PCP Internal Medicine; Referring Provider Internal Medicine
DX: S82.62XA Displaced fracture of lateral malleolus of left fibula, initial encounter for closed fracture (principal)
CPT/HCPCS: 99213

== ENCOUNTER 2024-06-01 12:50 | Outpatient (REF) | payer OTHER, SELFPAY ==
--- NOTE | ~2024-06-01 | XR_ITS ---
EXAMINATION: XR ANKLE, LEFT CLINICAL INFORMATION: Pain in left ankle and joints of left foot M25.572. COMPARISON: XR Left ankle 05/08/2024 TECHNIQUE: AP, lateral, and mortise views of the left ankle. FINDINGS: Intact hardware plate and multiple screws across the fracture line of the distal fibula. Stable avulsion chip fracture from the tip of medial malleolus. 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 There is surrounding soft tissue swelling and joint effusion which has increased from prior study. XR/XR ankle LT min 3V IMPRESSION: 1. Intact hardware plate and screws across the fracture line of the distal fibula. 2. Stable avulsion chip fracture from the tip of medial malleolus. 3. Worsening surrounding soft tissue swelling and joint effusion. Electronically signed by: Lynne Barroso MD 07/12/2024 11:50 AM PANDA
== END 2024-06-01 12:51 | disposition home or self-care (01) ==
LOC: HO.HOSX 12:50
PROVIDERS: PCP Internal Medicine
DX: S82.63XD Displaced fracture of lateral malleolus of unspecified fibula, subsequent encounter for closed fracture with routine healing (principal)
CPT/HCPCS: 73610; 99212

== ENCOUNTER 2024-06-01 12:50 | Outpatient (AMB) | payer OTHER, SELFPAY ==
--- NOTE | 2024-06-01 12:51 | A.OFFVIS_ITS ---
Intake Visit Reasons: OV - Lt Ankle ORIF 01/21/24-follow up Intake Note: Reed is a 83 year old male who presents today for a follow up visit s/p left ankle ORIF 01/21/2024 w/ Dr Chirinos. Patient presents today utilizing a cane for assistance with ambulation. He reports he has been ambulating more often but just in his home. He says he has tried to remain off the left foot to see if it would improve. He says since he has over done the ankle it has been more painful and swollen. He says he took about 30 minute to get his left shoe on due to swelling. He is unable to tell if the ankle brace is helping him or not. Allergies niacin Allergy (Severe, Verified 06/16/24 13:29) Upset Stomach procaine [From Novocain] Allergy (Severe, Verified 06/16/24 13:29) I GET MEAN simvastatin Adverse Reaction (Severe, Verified 06/16/24 13:29) myopathy HPI HPI OV - Lt Ankle ORIF 01/21/24-follow up: Details: Patient is a 83 year old male who presents today for a follow up visit s/p left ankle ORIF 01/21/2024 w/ Dr Chirinos. Patient reports his left ankle has remained very painful since previous evaluation He says the pain comes and goes throughout the day. He has mild relief with Tylenol and ibuprofen but has concern of taking too many tablets. The patient states that he has been elevating his ankle as much as possible and does express concern that there is significant edema, mild redness and a lot of dry skin on the ankle. Patient reports that he has been unable to ambulate well on the ankle due to pain. No other acute complaints or concerns at this time. [facility] Medical History Hyperlipidemia HTN (hypertension) CAD (coronary artery disease) Murmur, cardiac Chest pain COPD (chronic obstructive pulmonary disease) Asbestosis Surgical History S/P TAVR (transcatheter aortic valve replacement) Stented coronary artery Hx of cardiac catheterization Family History Father CAD (coronary artery disease) Mother No problems noted. Social History Patient Tobacco Use Status: Former Tobacco user Tobacco use type: Cigarette and Cigar Years Smoked: 14 years old Review of Systems Const All systems reviewed & are unremarkable except as noted in HPI and below Physical Exam Extrem Other: On inspection, there is no deformity of the L ankle Incision sites are well healed No evidence of discharge There is noted to be some very mild erythema on the lateral aspect of the patient's left ankle No ecchymosis Moderate to severe edema noted of the left ankle Patient reports mild tenderness to palpation about the left lateral malleolus Patient is able to plantar flex and dorsiflex the foot, however this is limited due to pain and swelling Distal sensation intact Capillary refill brisk Results Reviewed Results Reviewed: X-rays obtained in the office today and independently reviewed by me, Demetrius Contreras PA-C, demonstrate well-healing fracture of the left lateral malleolus with orthopedic hardware in place and in satisfactory clinical alignment. No evidence of re fracture, damage to orthopedic hardware, or other injury Assessment & Plan Assessment & Plan (1) Ankle fracture, lateral malleolus, closed: Code(s): S82.63XA - Displaced fracture of lateral malleolus of unspecified fibula, initial encounter for closed fracture Category: Medical Qualifiers: Encounter type: initial encounter Fracture alignment: displaced Laterality: left Qualified Code(s): S82.62XA - Displaced fracture of lateral malleolus of left fibula, initial encounter for closed fracture Plan 1. Lateral malleolus fracture status post ORIF DOS 01/21/2024 Patient was discussed with Dr. Chirinos, who was not available to see the patient with me in clinic today, and a collaborative treatment plan was formed: At this time, patient is educated that pain and swelling can persist for up to 1 year after ankle ORIF Patient is educated that he should be in the in the walking boot whenever weight-bearing at this time due to his increasing pain Patient is also educated that x-rays do not show any sign of broken hardware or other concerns with the fracture or surgical hardware Patient states understanding of this Patient will follow-up in 2 weeks with repeat x-rays for reassessment, sooner with any acute concerns Orders: Orders XR ankle LT min 3V 06/01/24 M25.572 - Pain in left ankle and joints of left foot Coding Level of Care Code Est Pt Level 3 (10070) Diagnoses Closed displaced fracture of lateral malleolus of left fibula, initial encounter S82.62XA Encounter type: initial encounter Fracture alignment: displaced Laterality: left
== END 2024-06-01 14:10 | disposition home or self-care (01) ==
PROVIDERS: PCP Internal Medicine
DX: S82.62XA Displaced fracture of lateral malleolus of left fibula, initial encounter for closed fracture (principal)
CPT/HCPCS: 99213

== ENCOUNTER 2024-06-16 08:24 | Outpatient (REF) | payer OTHER, SELFPAY ==
--- NOTE | ~2024-06-16 | XR_ITS ---
EXAMINATION: XR ANKLE LEFT CLINICAL INFORMATION: Pain in left ankle and joints of left foot M25.572. COMPARISON: XR Left ankle 06/01/2024 TECHNIQUE: AP, lateral, and oblique views of the left ankle. FINDINGS: Clinical data multiple screws across fracture lines of the distal fibula, nondisplaced fracture of the medial malleolus is a stable. There is loss of joint space, extensive soft tissue swelling, loss of normal distinction of the articular surfaces raise concern for possible underlying infection or inflammatory process. XR/XR ankle LT min 3V IMPRESSION: 1. ORIF, Stable fracture lines of the distal fibula and medial malleolus. 2. Loss of normal distinction of the articular surfaces , narrowing of joint space and extensive surrounding soft tissue swelling raise concern for possible underlying infection or inflammatory process. 3. There is extensive soft tissue swelling. 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
== END 2024-06-16 08:25 | disposition home or self-care (01) ==
LOC: HO.HOSX 08:24
DX: M25.572 Pain in left ankle and joints of left foot (principal); S82.62XA Displaced fracture of lateral malleolus of left fibula, initial encounter for closed fracture
CPT/HCPCS: 73610; 99212

== ENCOUNTER 2024-06-16 13:02 | Outpatient (AMB) | payer OTHER, SELFPAY ==
--- NOTE | 2024-06-16 13:18 | MHC.OFFVIS ---
Vital Signs 06/16/24 13:29 Height 5 ft 6 in Weight 193 lb BMI 31.1 Intake Visit Reasons: OV - Lt Ankle ORIF 01/21/24-follow up Intake Note: Reed is a 83 year old male who presents today for a follow up visit s/p left ankle ORIF 01/21/2024 w/ Dr Chirinos. Patient reports his left foot has not improved at all. He expresses his foot pain like a bad tooth ache that never goes away. He says the pain comes and goes throughout the day. He has mild relief with Tylenol and ibuprofen but has concern of taking too many tablets. Allergies niacin Allergy (Severe, Verified 06/16/24 13:29) Upset Stomach procaine [From Novocain] Allergy (Severe, Verified 06/16/24 13:29) I GET MEAN simvastatin Adverse Reaction (Severe, Verified 06/16/24 13:29) myopathy HPI HPI OV - Lt Ankle ORIF 01/21/24-follow up: Details: Patient is a 83 year old male who presents today for a follow up visit s/p left ankle ORIF 01/21/2024 w/ Dr Chirinos. Patient reports his left foot has not improved at all. He expresses his foot pain like a bad tooth ache that never goes away. He says the pain comes and goes throughout the day. He has mild relief with Tylenol and ibuprofen but has concern of taking too many tablets. The patient states that he has been elevating his ankle as much as possible, and that the swelling has gone down slightly since previous evaluation, but does express concern that there is redness and a lot of dry skin on the ankle. Patient reports that he has been unable to ambulate on the ankle due to pain, and then he has had to use the scooter he was using after surgery. No other acute complaints or concerns at this time. [facility] Medical History Hyperlipidemia HTN (hypertension) CAD (coronary artery disease) Murmur, cardiac Chest pain COPD (chronic obstructive pulmonary disease) Asbestosis Surgical History S/P TAVR (transcatheter aortic valve replacement) Stented coronary artery Hx of cardiac catheterization Family History Father CAD (coronary artery disease) Mother No problems noted. Social History Patient Tobacco Use Status: Former Tobacco user Tobacco use type: Cigarette and Cigar Years Smoked: 14 years old Physical Exam Vital Signs: BMI result Body Mass Index 31.1 Extrem Other: On inspection, there is no deformity of the L ankle Incision sites are well healed No evidence of discharge There has been a to be some erythema on the lateral aspect of the patient's left ankle No ecchymosis Moderate to severe edema noted of the left ankle However, there is noted to be some evidence of early skin breakdown in the anterior part of the patient's left ankle, likely secondary to his swelling Patient reports mild tenderness to palpation about the left lateral malleolus Patient is able to plantar flex and dorsiflex the foot, however this is limited due to pain and swelling Distal sensation intact Capillary refill brisk Results Reviewed Results Reviewed: X-rays obtained in the office today and independently reviewed by me, Demetrius Contreras PA-C, demonstrate well-healing fracture of the left lateral malleolus with orthopedic hardware in place and in satisfactory clinical alignment. No evidence of re fracture, damage to orthopedic hardware, or other injury Assessment & Plan Assessment & Plan (1) Ankle fracture, lateral malleolus, closed: Code(s): S82.63XA - Displaced fracture of lateral malleolus of unspecified fibula, initial encounter for closed fracture Category: Medical Qualifiers: Encounter type: initial encounter Fracture alignment: displaced Laterality: left Qualified Code(s): S82.62XA - Displaced fracture of lateral malleolus of left fibula, initial encounter for closed fracture Plan 1. Fracture of lateral malleolus of the left ankle status post ORIF DOS 01/21/2024 Patient was seen and discussed with Lesli Bernabe, who was available to see the patient with me in clinic today, and a collaborative treatment plan was formed: At this time, patient is started on Bactrim for prevention of any superficial skin infections due to this beginning skin breakdown Patient was also provided with a light nonstick dressing of Kerlix to be placed over the skin in order to prevent further skin breakdown as well as to act as a barrier Patient is educated that it was very important that he elevates his foot as much as possible to above heart level, as his swelling has been largely uncontrolled for 2-3 weeks now and is leading to skin breakdown Patient states understanding of this Patient was also advised that he should continue wearing the walking boot whenever he is weight-bearing Patient will follow-up on Saturday with Dr. Chirinos in the office for reassessment, sooner with any acute concerns Orders: Orders XR ankle LT min 3V 06/16/24 M25.572 - Pain in left ankle and joints of left foot PT Evaluation and Treatment 06/16/24 S82.62XA - Displaced fracture of lateral malleolus of left fibula, initial encounter for closed fracture Medications: New sulfamethoxazole-trimethoprim 800-160 mg (Bactrim DS) 1 tab PO BID 20 tabs 0RF Skin Breakdown 10 days Coding Level of Care Code Est Pt Level 3 (89557) Diagnoses Closed displaced fracture of lateral malleolus of left fibula, initial encounter S82.62XA Encounter type: initial encounter Fracture alignment: displaced Laterality: left
[2024-06-16 13:29] VITALS: BMI 31.1
--- OUTSIDE RECORDS SUMMARY | 2024-06-23 13:56 | XMS_ITS | Continuity of Care Document ---
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 It does not include entries that were removed or entered in error. Problem Status Onset Date Problem Type Date of Resolution Comments Source Chronic dermatitis Active 023 Condition Oct 05, 2022 Entered By: BYRON BARRON Comment: referred to dermatology [facility] Chest Pain (SCT [id number]) Active Condition Jan 02, 2022 Entered By: BYRON BARRON Comment: ordered stress test [facility] COPD - Chronic Obstructive Pulmonary Disease (SCT [id number]) Active Condition Dec 28, 2021 Entered By: BYRON BARRON Comment: on inhalers [facility] Cataract Active Condition Oct 12, 2020 Entered By: BYRON BARRON Comment: referred for surgery [facility] HTN - Hypertension (SCT [id number]) Active Condition Oct 21, 2020 Entered By: BYRON BARRON Comment: treated witn medication [facility] Hypercholesterolemia (SCT [id number]) Active Condition Oct 21, 2020 Entered By: BYRON BARRON Comment: treated with medication [facility] Asbestosis Active 018 Condition [facility] Aortic valve stenosis Active Condition [facility] Diagnosis: ICD-10-CM Z46.1 Encounter for fitting and adjustment of hearing aid Active Diagnosis [facility] Diagnosis: ICD-10-CM Z85.828 Personal history of other malignant neoplasm of skin Active Diagnosis [facility] Diagnosis: ICD-10-CM I10 Essential (primary) hypertension Active Diagnosis [facility] Diagnosis: ICD-10-CM H90.6 Mixed conductive and sensorineural hearing loss, bilateral Active Diagnosis [facility] Diagnosis: ICD-10-CM H90.A31 Mix cndct/snrl hear loss,uni,r ear w rstrcd hear cntra side Active Diagnosis [facility] Diagnosis: ICD-10-CM Z48.01 Encounter for change or removal of surgical wound dressing Active Diagnosis [facility] Diagnosis: ICD-10-CM L60.1 Onycholysis Active Diagnosis [facility] Diagnosis: ICD-10-CM Z71.89 Other specified counseling Active Diagnosis [facility] Diagnosis: ICD-10-CM M84.472A Pathological fracture, left ankle, init encntr for fracture Active Diagnosis [facility] Diagnosis: ICD-10-CM D48.5 Neoplasm of uncertain behavior of skin Active Diagnosis [facility] Diagnosis: ICD-10-CM Z13.89 Encounter for screening for other disorder Active Diagnosis [facility] Diagnosis: ICD-10-CM R21 Rash and other nonspecific skin eruption Active Diagnosis [facility] Diagnosis: ICD-10-CM Z23 Encounter for immunization Active Diagnosis [facility] Diagnosis: ICD-10-CM H67.3 Otitis media in diseases classified elsewhere, bilateral Active Diagnosis [facility] [place] [facility] Medications Combined list of outpatient medications from Department of Defense and Veterans Affairs facilities.Medications provided include 1) outpatient medications from the last 15 months, and 2) patient-reported medications. Medication Details Route Status Patient Instructions Prescription Expires Prescription Number Last Dispense Date Ordering Provider Order Date Order Qty Source AMOXICILLIN TRIHYDRATE 875MG/CLAVU LANATE K 125MG TAB TAKE 1 TABLET BY MOUTH TWICE DAILY FOR INFECTIO N ORAL 11/15/2023 [id number] MAUREEN BARRON 2023 20 [facility] ASPIRIN 81MG TAB,CHEWABL E CHEW ONE TABLET BY MOUTH ONCE DAILY ORAL ACTIVE JANINE HAMMOND R 2021 [facility] ATORVASTATI N CA 80MG TAB TAKE ONE TABLET BY MOUTH ONCE DAILY FOR CHOLESTE ROL ORAL DISCONT INUED 03/07/2024 [id number] MAUREEN BARRON PAIGE D 2022 90 [facility] ATORVASTATI N CA 80MG TAB TAKE ONE TABLET BY MOUTH AT BEDTIME ORAL 06/19/2024 [id number] KENDALL,MOHAMUD AV 2022 90 [facility] CEPHALEXIN 500MG CAP TAKE ONE CAPSULE BY MOUTH EVERY 8 HOURS FOR INFECTIO N ORAL 04/04/2024 [id number] MAMTA STERN 2023 21 [facility] EZETIMIBE 10MG TAB TAKE ONE TABLET BY MOUTH ONCE DAILY TO LOWER CHOLESTE ROL ORAL 06/19/2024 [id number] KENDALLMOHAMUD AV 2022 90 [facility] FLUTICASONE 250MCG/SALM ETEROL 50MCG INHL,ORAL,D ISKUS,60 INHALE 1 PUFF BY MOUTH TWICE DAILY - RINSE MOUTH AFTER USE RESPIR ATORY (INHAL ATION) 03/07/2024 [id number] MAUREEN BARRON PAIGE D 2022 3 [facility] FLUTICASONE PROPIONATE 50MCG/SPRAY SOLN,NASAL, 16GM INSTILL 1 SPRAY INTO EACH NOSTRIL ONCE DAILY NEEDED FOR NASAL IRRITATI ON/INFLA MMATION NASAL 04/15/2024 [id number] MAUREEN BARRON PAIGE D 2022 1 [facility] HYDROCHLORO THIAZIDE 25MG TAB TAKE ONE TABLET BY MOUTH ONCE DAILY TO PREVENT FLUID/CO NTROL BLOOD PRESSURE ORAL DISCONT INUED 03/07/2024 [id number] MAUREEN BARRON PAIGE D 2022 90 [facility] HYDROCHLORO THIAZIDE 25MG TAB TAKE ONE TABLET BY MOUTH ONCE DAILY ORAL 06/19/2024 [id number] KENDALL,MOHAMUD AV 2023 90 [facility] METOPROLOL SUCCINATE 50MG TAB,SA TAKE ONE TABLET BY MOUTH ONCE DAILY FOR BLOOD PRESSURE /HEART ORAL 06/19/2024 [id number] KENDALL,MOHAMUD AV 2022 90 [facility] TRIAMCINOLO NE ACETONIDE 0.1% CREAM,TOP APPLY A MODERATE AMOUNT TOPICALL Y TWICE DAILY NEEDED FOR ITCHING TOPICA L ACTIVE 10/24/2024 [id number] 4 BEATRICEMAUREEN PAIGE D 2023 [facility] Allergies, Adverse Reactions, Alerts Combined list of allergies from Department of Defense and Veterans Affairs facilities. It does not include entries that were removed or entered in error. Substance Category Reaction Severity Reaction type Status Date Reported Comments Source LIDOCAINE Propensity to adverse reactions to drug (finding) Itching MODERATE active 2 [facility] NOVOCAIN Propensity to adverse reactions to drug (finding) Feeling agitated active 8 [facility] PROCAINE Propensity to adverse reactions to drug (finding) active 2 [facility] Immunizations Combined list of available immunizations from the Department of Defense and Veterans Affairs facilities. Immunization Series Date Given Administered By Site Reaction Lot Number CVX Code Drug Quoter Status Comments Source COVID-19 (MODERNA), MRNA, LNP-S, PF, 50 MCG/0.5 ML (AGES 12+ YEARS) 7 2023 ALMA MAHER LEFT DELTO ID [id number] 312 complet ed [facility] INFLUENZA, HIGH-DOSE, TRIVALENT, PF 2023 ALMA MAHER LEFT DELTO ID [id number] 135 complet ed [facility] RSV, BIVALENT, PROTEIN SUBUNIT RSVPREF, DILUENT RECONSTITUTED , 0.5 ML, PF 1 2023 GRETCHEN ANDRADE E LEFT DELTO ID [id number] 305 complet ed [facility] COVID-19 (MODERNA), MRNA, LNP-S, PF, 50 MCG/0.5 ML (AGES 12+ YEARS) 1 2023 GRETCHEN ANDRADE E LEFT DELTO ID [id number] 312 complet ed [facility] [place] INFLUENZA, HIGH-DOSE, QUADRIVALENT 2022 JERRI SHAIKH ER M LEFT DELTO ID [id number] 197 complet ed [facility] COVID-19 (MODERNA), MRNA, LNP-S, BIVALENT BOOSTER, PF, 50 MCG/0.5 ML OR 25MCG/0.25 ML DOSE 2021 JERRI SHAIKH ER M LEFT DELTO ID [id number] 229 complet ed [facility] INFLUENZA VACCINE, QUADRIVALENT, ADJUVANTED 2021 205 complet ed [facility] COVID-19 (MODERNA), MRNA, LNP-S, PF, 100 MCG/0.5ML DOSE OR 50 MCG/0.25ML DOSE 3 2021 207 complet ed MOD; [id number] ; 2 [facility] PNEUMOCOCCAL CONJUGATE PCV20, POLYSACCHARID E [id number] CONJUGATE, ADJUVANT, PF 2021 216 complet ed [facility] COVID-19 (MODERNA), MRNA, LNP-S, PF, 100 MCG OR 50 MCG DOSE 3 2020 207 complet ed MOD; [id number]; 2 [facility] INFLUENZA, UNSPECIFIED FORMULATION 2020 88 complet ed [facility] TDAP 2020 115 complet ed [facility] COVID-19 (MODERNA), MRNA, LNP-S, PF, 100 MCG/0.5 ML DOSE 2 2020 207 complet ed MOD; [id number]; 1 [facility] COVID-19 (MODERNA), MRNA, LNP-S, PF, 100 MCG/0.5 ML DOSE 1 2020 207 complet ed MOD; [id number]; 1 [facility] ZOSTER RECOMBINANT 2 2020 187 complet ed [facility] ZOSTER RECOMBINANT 1 2019 187 complet ed [facility] INFLUENZA, UNSPECIFIED FORMULATION 2019 88 complet ed [facility] INFLUENZA, SEASONAL, INJECTABLE 2018 141 complet ed [facility] INFLUENZA, SEASONAL, INJECTABLE 2017 141 complet ed [facility] INFLUENZA, HIGH DOSE SEASONAL 2017 135 complet ed [facility] Administe red by: ARLET BOLTON (BJK=[phone]). Partner 0 Lot#: [id number] Mfr: [place] [employer]; Dosage: 0.5 [facility] PNEUMOCOCCAL POLYSACCHARID E [id number] 2016 33 complet ed Partner: [facility]. Administe red by: ARLET BOLTON (UJS=[phone]). Partner 0 Lot#: [id number] Mfr: [employer]; Dosage: 0.5 [facility] INFLUENZA, HIGH DOSE SEASONAL 2016 135 complet ed Partner: [facility]. Administe red by: ARLET BOLTON (RGS=[phone]). Partner 0 Lot#: [id number] Mfr: [place] [employer]; Dosage: 0.5 [facility] Results Combined list of recent chemistry, hematology and other laboratory results from Department of Defense and Veterans Affairs, ranging from 15 months to all on record, depending upon the facility. Order Name Results Value Reference Range Date Interpretation Specimen Comments Source LIVER FUNCTION PROTEIN [MASS/VOLU ME] IN SERUM OR PLASMA 6.8 g/dL 6.0 - 8.3 04/07 Specimen Type: SERUM No comment entered. Ordering Provider: JAMILA BARRON Report Released Date/Time: Apr 04, 2024 05:53 PM Reporting Lab: [facility] [place] [address] [address] Performing Lab: [facility] [place] [facility] [address] [facility] [address] [facility] LIVER FUNCTION ALBUMIN [MASS/VOLU ME] IN SERUM OR PLASMA 4.0 g/dL 3.5 - 5.0 04/07 Specimen Type: SERUM No comment entered. Ordering Provider: JAMILA BARRON Report Released Date/Time: Apr 04, 2024 05:53 PM Reporting Lab: [facility] [place] [address] [address] Performing Lab: [facility] [place] [address] [address] [facility] [place] [facility] LIVER FUNCTION ALKALINE PHOSPHATAS E [ENZYMATIC ACTIVITY/V OLUME] IN SERUM OR PLASMA 118 U/L 40 - 150 04/07 Specimen Type: SERUM No comment entered. Ordering Provider: JAMILA BARRON Report Released Date/Time: Apr 04, 2024 05:53 PM Reporting Lab: [facility] [place] [facility] [address] [facility] [address] Performing Lab: [facility] [place] [address] [address] [facility] [place] [facility] LIVER FUNCTION ASPARTATE AMINOTRANS FERASE [ENZYMATIC ACTIVITY/V OLUME] IN SERUM OR PLASMA 30 U/L 5 - 34 04/07 Specimen Type: SERUM No comment entered. Ordering Provider: JAMILA BARRON Report Released Date/Time: Apr 04, 2024 05:53 PM Reporting Lab: [facility] [place] [address] [place] [address] Performing Lab: [facility] [place] [facility] [address] [facility] [address] [facility] [place] [facility] LIVER FUNCTION ALANINE AMINOTRANS FERASE [ENZYMATIC ACTIVITY/V OLUME] IN SERUM OR PLASMA 23 U/L 04/07 Specimen Type: SERUM No comment entered. Ordering Provider: JAMILA BARRON Report Released Date/Time: Apr 04, 2024 05:53 PM Reporting Lab: [facility] [place] [facility] [address] [facility] [address] Performing Lab: [facility] [place] [facility] [address] [facility] [address] [facility] [place] [facility] [employer] [facility] LIVER FUNCTION BILIRUBIN. TOTAL [MASS/VOLU ME] IN SERUM OR PLASMA 1.0 mg/dL 0.2 - 1.2 04/07 Specimen Type: SERUM No comment entered. Ordering Provider: JAMILA BARRON Report Released Date/Time: Apr 04, 2024 05:53 PM Reporting Lab: [facility] [place] [facility] [address] [facility] [address] Performing Lab: [facility] [place] [facility] [address] [facility] [address] [facility] [place] [facility] BASIC METABOLI C PANEL (fasting ) UREA NITROGEN [MASS/VOLU ME] IN SERUM OR PLASMA 22 mg/dL 7 - 25 04/07 Specimen Type: SERUM No comment entered. Ordering Provider: JAMILA BARRON Report Released Date/Time: Apr 04, 2024 05:53 PM Reporting Lab: [facility] [place] [facility] [address] [facility] [address] Performing Lab: [facility] [place] [facility] [address] [facility] [address] [facility]N [facility] BASIC METABOLI C PANEL (fasting ) GLUCOSE [MASS/VOLU ME] IN SERUM OR PLASMA 93 mg/dL 65 - 100 04/07 Specimen Type: SERUM No comment entered. Ordering Provider: JAMILA BARRON Report Released Date/Time: Apr 04, 2024 05:53 PM Reporting Lab: [facility] [place] [facility] [address] [facility] [address] Performing Lab: [facility] [place] [facility] [address] [facility] [address] [facility] [place] [facility] BASIC METABOLI C PANEL (fasting ) SODIUM [MOLES/VOL UME] IN SERUM OR PLASMA 139 mmol/L 135 - 145 04/07 Specimen Type: SERUM No comment entered. Ordering Provider: JAMILA BARRON Report Released Date/Time: Apr 04, 2024 05:53 PM Reporting Lab: [facility] [place] [facility] [address] [facility] [address] Performing Lab: [facility] [place] [facility] [address] [facility] [address] [facility] [place] [facility] BASIC METABOLI C PANEL (fasting ) POTASSIUM [MOLES/VOL UME] IN SERUM OR PLASMA 3.9 mmol/L 3.5 - 5.0 04/07 Specimen Type: SERUM No comment entered. Ordering Provider: JAMILA BARRON Report Released Date/Time: Apr 04, 2024 05:53 PM Reporting Lab: [facility] [place] [facility] [address] [facility] [address] Performing Lab: [facility] [place] [facility] [address] [facility] [address] [facility] [place] [facility] BASIC METABOLI C PANEL (fasting ) CHLORIDE [MOLES/VOL UME] IN SERUM OR PLASMA 102 mmol/L 100 - 110 04/07 Specimen Type: SERUM No comment entered. Ordering Provider: JAMILA BARRON Report Released Date/Time: Apr 04, 2024 05:53 PM Reporting Lab: [facility] [place] [facility] [address] [facility] [address] Performing Lab: [facility] [place] [facility] [address] [facility] [address] [facility] [place] [facility] BASIC METABOLI C PANEL (fasting ) CARBON DIOXIDE, TOTAL [MOLES/VOL UME] IN SERUM OR PLASMA 26 meq/L 20 - 30 04/07 Specimen Type: SERUM No comment entered. Ordering Provider: JAMILA BARRON Report Released Date/Time: Apr 04, 2024 05:53 PM Reporting Lab: [facility] [place] [facility] [address] [address] Performing Lab: [facility] [address] [address] [facility] [place] [facility] [employer] BASIC METABOLI C PANEL (fasting ) CREATININE [MASS/VOLU ME] IN SERUM OR PLASMA 0.92 mg/dL 0.50 - 1.40 04/07 Specimen Type: SERUM No comment entered. Ordering Provider: JAMILA BARRON Report Released Date/Time: Apr 04, 2024 05:53 PM Reporting Lab: [facility] [address] [address] Performing Lab: [facility] [place] [facility] SSDUSE[address] [address] [facility] [place] [facility] BASIC METABOLI C PANEL (fasting ) GLOMERULAR FILTRATION RATE/1.73 SQ M.PREDICTE D [VOLUME RATE/AREA] IN SERUM, PLASMA OR BLOOD BY CREATININE -BASED FORMULA (CKD-EPI 2020) 82 mL/min 60 04/07 Specimen Type: SERUM No comment entered. Ordering Provider: JAMILA BARRON Report Released Date/Time: Apr 04, 2024 05:53 PM Reporting Lab: [facility] [place] [facility] SSD[facility] [address] Performing Lab: [facility] [place] [facility] SSD[facility] [address] [facility] LIPID PANEL FASTING CHOLESTERO L [MASS/VOLU ME] IN SERUM OR PLASMA 139 mg/dL 04/07 Specimen Type: SERUM No comment entered. Ordering Provider: JAMILA BARRON Report Released Date/Time: Apr 04, 2024 05:53 PM Reporting Lab: [facility] [place] [facility] [address] [address] Performing Lab: [facility] [place] [facility] [address] [facility] [address] [facility] [place] [facility] LIPID PANEL FASTING TRIGLYCERI DE [MASS/VOLU ME] IN SERUM OR PLASMA 136 mg/dL 0 - 150 04/07 Specimen Type: SERUM No comment entered. Ordering Provider: JAMILA BARRON Report Released Date/Time: Apr 04, 2024 05:53 PM Reporting Lab: [facility] [place] [facility] [address] [facility] [address] Performing Lab: [facility] [place] [facility] [address] [facility] [address] [facility] [place] [facility] LIPID PANEL FASTING CHOLESTERO L IN LDL [MASS/VOLU ME] IN SERUM OR PLASMA BY CALCULATIO N 72 mg/dL 0 - 129 04/07 Specimen Type: SERUM No comment entered. Ordering Provider: JAMILA BARRON Report Released Date/Time: Apr 04, 2024 05:53 PM Reporting Lab: [facility] [place] [address] [address] Performing Lab: [facility] [place] [address] [address] [facility] [place] [facility] LIPID PANEL FASTING CHOLESTERO L.TOTAL/CH OLESTEROL IN HDL [MASS RATIO] IN SERUM OR PLASMA 3.5 04/07 Specimen Type: SERUM No comment entered. Ordering Provider: JAMILA BARRON Report Released Date/Time: Apr 04, 2024 05:53 PM Reporting Lab: [facility] [place] [facility] [address] [facility] [address] Performing Lab: [facility] [place] [facility] [address] [facility] [address] [facility] [place] [facility] LIPID PANEL FASTING CHOLESTERO L IN HDL [MASS/VOLU ME] IN SERUM OR PLASMA 40 mg/dL 40 - 60 04/07 Specimen Type: SERUM No comment entered. Ordering Provider: JAMILA BARRON Report Released Date/Time: Apr 04, 2024 05:53 PM Reporting Lab: [facility] [place] [facility] [address] [facility] [address] Performing Lab: [facility] [place] [facility] [address] [facility] [address] [facility] [place] [facility] CBC AND DIFF (AUTO) LEUKOCYTES [#/VOLUME] IN BLOOD BY AUTOMATED COUNT 7.77 10*3/uL 4.50 - 11.00 04/07 Specimen Type: BLOOD No comment entered. Ordering Provider: JAMILA BARRON Report Released Date/Time: Apr 04, 2024 05:53 PM Reporting Lab: [facility] [place] [facility] [address] [facility] [address] Performing Lab: [facility] [place] [facility] [address] [facility] [address] [facility] [place] [facility] CBC AND DIFF (AUTO) ERYTHROCYT ES [#/VOLUME] IN BLOOD BY AUTOMATED COUNT 4.29 10*6/uL 4.23 - 5.66 04/07 Specimen Type: BLOOD No comment entered. Ordering Provider: JAMILA BARRON Report Released Date/Time: Apr 04, 2024 05:53 PM Reporting Lab: [facility] [place] [facility] [address] [facility] [address] Performing Lab: [facility] [place] [facility] [address] [facility] [address] [facility] [place] [facility] CBC AND DIFF (AUTO) HEMOGLOBIN [MASS/VOLU ME] IN BLOOD 14.2 g/dL 12.8 - 17 04/07 Specimen Type: BLOOD No comment entered. Ordering Provider: JAMILA BARRON Report Released Date/Time: Apr 04, 2024 05:53 PM Reporting Lab: [facility] [place] [facility] [address] [facility] [address] Performing Lab: [facility] [place] [address] [address] [facility] [place] [facility] CBC AND DIFF (AUTO) HEMATOCRIT [VOLUME FRACTION] OF BLOOD BY AUTOMATED COUNT 41.1 39.2 - 50.4 04/07 Specimen Type: BLOOD No comment entered. Ordering Provider: JAMILA BARRON Report Released Date/Time: Apr 04, 2024 05:53 PM Reporting Lab: [facility] [place] [facility] [address] [facility] [address] Performing Lab: [facility] [place] [facility] [address] [facility] [address] [facility] [place] [facility] CBC AND DIFF (AUTO) MCV [ENTITIC VOLUME] BY AUTOMATED COUNT 95.8 fL 82 - 99 04/07 Specimen Type: BLOOD No comment entered. Ordering Provider: JAMILA BARRON Report Released Date/Time: Apr 04, 2024 05:53 PM Reporting Lab: [facility] [place] [facility] [address] [facility] [address] Performing Lab: [facility] [place] [facility] [address] [facility] [address] [facility] [place] [facility] CBC AND DIFF (AUTO) MCHC [MASS/VOLU ME] BY AUTOMATED COUNT 34.5 g/dL 30.8 - 35.1 04/07 Specimen Type: BLOOD No comment entered. Ordering Provider: JAMILA BARRON Report Released Date/Time: Apr 04, 2024 05:53 PM Reporting Lab: [facility] [place] [facility] [address] [facility] [address] Performing Lab: [facility] [place] [facility] [address] [facility] [address] [facility] [place] [facility] CBC AND DIFF (AUTO) PLATELETS [#/VOLUME] IN BLOOD BY AUTOMATED COUNT 184 10*3/uL 140 - 360 04/07 Specimen Type: BLOOD No comment entered. Ordering Provider: JAMILA BARRON Report Released Date/Time: Apr 04, 2024 05:53 PM Reporting Lab: [facility] [place] [facility] [address] [facility] [address] Performing Lab: [facility] [place] [facility] [address] [facility] [address] [facility] [place] [facility] CBC AND DIFF (AUTO) ERYTHROCYT E DISTRIBUTI ON WIDTH [RATIO] BY AUTOMATED COUNT 13.1 12.0 - 16.0 04/07 Specimen Type: BLOOD No comment entered. Ordering Provider: JAMILA BARRON Report Released Date/Time: Apr 04, 2024 05:53 PM Reporting Lab: [facility] [place] [facility] [address] [facility] [address] Performing Lab: [facility] [place] [facility] [address] [facility] [address] [facility] [place] [facility] CBC AND DIFF (AUTO) MONOCYTES [#/VOLUME] IN BLOOD BY AUTOMATED COUNT 0.98 10*3/uL 0.30 - 1.10 04/07 Specimen Type: BLOOD No comment entered. Ordering Provider: JAMILA BARRON Report Released Date/Time: Apr 04, 2024 05:53 PM Reporting Lab: [facility] [place] [address] [address] Performing Lab: [facility] [place] [address] [address] [facility] [place] [facility] CBC AND DIFF (AUTO) MCH [ENTITIC MASS] BY AUTOMATED COUNT 33.1 pg 26.2 - 32.6 04/07 H Specimen Type: BLOOD No comment entered. Ordering Provider: JAMILA BARRON Report Released Date/Time: Apr 04, 2024 05:53 PM Reporting Lab: [facility] [place] [address] [address] Performing Lab: [facility] [place] [address] [address] [facility] [place] [facility] CBC AND DIFF (AUTO) NEUTROPHIL S/100 LEUKOCYTES IN BLOOD BY AUTOMATED COUNT 52.3 43.7 - 75.8 04/07 Specimen Type: BLOOD No comment entered. Ordering Provider: JAMILA BARRON Report Released Date/Time: Apr 04, 2024 05:53 PM Reporting Lab: [facility] [place] [address] [address] Performing Lab: [facility] [place] [address] [address] [facility] [place] [facility] CBC AND DIFF (AUTO) LYMPHOCYTE S/100 LEUKOCYTES IN BLOOD BY AUTOMATED COUNT 31.7 14.0 - 42.3 04/07 Specimen Type: BLOOD No comment entered. Ordering Provider: JAMILA BARRON Report Released Date/Time: Apr 04, 2024 05:53 PM Reporting Lab: [facility] [place] [facility] [address] [facility] [address] Performing Lab: [facility] [place] [facility] [address] [facility] [address] [facility] [place] [facility] CBC AND DIFF (AUTO) MONOCYTES/ 100 LEUKOCYTES IN BLOOD BY AUTOMATED COUNT 12.6 5.1 - 13.7 04/07 Specimen Type: BLOOD No comment entered. Ordering Provider: JAMILA BARRON Report Released Date/Time: Apr 04, 2024 05:53 PM Reporting Lab: [facility] [place] [address] [address] Performing Lab: [facility] [place] [facility] [address] [place] [address] [facility] [place] [facility] CBC AND DIFF (AUTO) EOSINOPHIL S/100 LEUKOCYTES IN BLOOD BY AUTOMATED COUNT 2.3 0.4 - 6.8 04/07 Specimen Type: BLOOD No comment entered. Ordering Provider: JAMILA BARRON Report Released Date/Time: Apr 04, 2024 05:53 PM Reporting Lab: [facility] [place] [address] [address] Performing Lab: [facility] [place] [facility] [address] [place] [address] [facility] [place] [facility] CBC AND DIFF (AUTO) BASOPHILS/ 100 LEUKOCYTES IN BLOOD BY AUTOMATED COUNT 0.6 0.1 - 2.0 04/07 Specimen Type: BLOOD No comment entered. Ordering Provider: JAMILA BARRON Report Released Date/Time: Apr 04, 2024 05:53 PM Reporting Lab: [facility] [place] [address] [address] Performing Lab: [facility] [place] [facility] [address] [facility] [address] [facility] [place] [facility] CBC AND DIFF (AUTO) NEUTROPHIL S [#/VOLUME] IN BLOOD BY AUTOMATED COUNT 4.06 10*3/uL 2.20 - 7.60 04/07 Specimen Type: BLOOD No comment entered. Ordering Provider: JAMILA BARRON Report Released Date/Time: Apr 04, 2024 05:53 PM Reporting Lab: [facility] [place] [facility] [address] [facility] [address] Performing Lab: [facility] [place] [facility] [address] [facility] [address] [facility] [place] [facility] CBC AND DIFF (AUTO) LYMPHOCYTE S [#/VOLUME] IN BLOOD BY AUTOMATED COUNT 2.46 10*3/uL 1.00 - 3.20 04/07 Specimen Type: BLOOD No comment entered. Ordering Provider: JAMILA BARRON Report Released Date/Time: Apr 04, 2024 05:53 PM Reporting Lab: [facility] [place] [facility] [address] [facility] [address] Performing Lab: [facility] [place] [address] [address] [facility] [place] [facility] CBC AND DIFF (AUTO) EOSINOPHIL S [#/VOLUME] IN BLOOD BY AUTOMATED COUNT 0.18 10*3/uL 0.03 - 0.44 04/07 Specimen Type: BLOOD No comment entered. Ordering Provider: JAMILA BARRON Report Released Date/Time: Apr 04, 2024 05:53 PM Reporting Lab: [facility] [place] [address] [address] Performing Lab: [facility] [place] [address] [address] [facility] [place] [facility] CBC AND DIFF (AUTO) BASOPHILS [#/VOLUME] IN BLOOD BY AUTOMATED COUNT 0.05 10*3/uL 0.01 - 0.13 04/07 Specimen Type: BLOOD No comment entered. Ordering Provider: JAMILA BARRON Report Released Date/Time: Apr 04, 2024 05:53 PM Reporting Lab: [facility] [place] [facility] [address] [facility] [address] Performing Lab: [facility] [place] [address] [address] [facility] [place] [facility] CBC AND DIFF (AUTO) IMMATURE GRANULOCYT ES/100 LEUKOCYTES IN BLOOD BY AUTOMATED COUNT 0.5 0.0 - 0.7 04/07 Specimen Type: BLOOD No comment entered. Ordering Provider: JAMILA BARRON Report Released Date/Time: Apr 04, 2024 05:53 PM Reporting Lab: [facility] [place] [address] [address] Performing Lab: [facility] [address] [address] [facility] [place] [facility] CBC AND DIFF (AUTO) IMMATURE GRANULOCYT ES [#/VOLUME] IN BLOOD 0.04 10*3/uL 0.00 - 0.06 04/07 Specimen Type: BLOOD No comment entered. Ordering Provider: JAMILA BARRON Report Released Date/Time: Apr 04, 2024 05:53 PM Reporting Lab: [facility] [place] [address] [address] Performing Lab: [facility] [place] [address] [address] [facility] [place] [facility] CBC AND DIFF (AUTO) NRBC % 0.0 0.0 - 0.0 04/07 Specimen Type: BLOOD No comment entered. Ordering Provider: JAMILA BARRON Report Released Date/Time: Apr 04, 2024 05:53 PM Reporting Lab: [facility] [place] [address] [address] Performing Lab: [facility] [place] [address] [address] [facility] [place] [facility] CBC AND DIFF (AUTO) NRBC, ABS 0.00 10*3/uL 0.00 - 0.00 04/07 Specimen Type: BLOOD No comment entered. Ordering Provider: JAMILA BARRON Report Released Date/Time: Apr 04, 2024 05:53 PM Reporting Lab: [facility] [place] [facility] [address] [facility] [address] Performing Lab: [facility] [place] [facility] [address] [facility] [address] [facility] [place] [facility] TSH THYROTROPI N [UNITS/VOL UME] IN SERUM OR PLASMA 2.34 u[IU]/mL 0.35 - 5.00 04/07 Specimen Type: SERUM No comment entered. Ordering Provider: JAMILA BARRON Report Released Date/Time: Apr 04, 2024 05:53 PM Reporting Lab: [facility] [place] [address] [address] Performing Lab: [facility] [place] [address] [address] [facility] [place] [facility] URINALYS IS CLEAN CATCH COLOR OF URINE Yellow 04/07 Specimen Type: URINE Comment: If Glucose = >500 and Ketones are positive, please alert the Physician. Ordering Provider: JAMILA BARRON Report Released Date/Time: Apr 04, 2024 05:53 PM Reporting Lab: [facility] [place] [address] [address] Performing Lab: [facility] [place] [address] [address] [facility] [place] [facility] URINALYS IS CLEAN CATCH APPEARANCE OF URINE Clear 04/07 Specimen Type: URINE Comment: If Glucose = >500 and Ketones are positive, please alert the Physician. Ordering Provider: JAMILA BARRON Report Released Date/Time: Apr 04, 2024 05:53 PM Reporting Lab: [facility] [place] [facility] [address] [facility] [address] Performing Lab: [facility] [place] [address] [address] [facility] [place] [facility] URINALYS IS CLEAN CATCH GLUCOSE [MASS/VOLU ME] IN URINE Normalmg /dL 04/07 Specimen Type: URINE Comment: If Glucose = >500 and Ketones are positive, please alert the Physician. Ordering Provider: JAMILA BARRON Report Released Date/Time: Apr 04, 2024 05:53 PM Reporting Lab: [facility] [place] [address] [address] Performing Lab: [facility] [place] [address] [address] [facility] [place] [facility] URINALYS IS CLEAN CATCH KETONES [MASS/VOLU ME] IN URINE BY TEST STRIP NEGATIVE mg/dL 04/07 Specimen Type: URINE Comment: If Glucose = >500 and Ketones are positive, please alert the Physician. Ordering Provider: JAMILA BARRON Report Released Date/Time: Apr 04, 2024 05:53 PM Reporting Lab: [facility]TRN [place] [facility] SSD[facility] [address] [address] Performing Lab: [facility] [place] [address] [address] [facility] [place] [facility] URINALYS IS CLEAN CATCH ERYTHROCYT ES [PRESENCE] IN URINE SEDIMENT BY LIGHT MICROSCOPY NEGATIVE mg/dL 04/07 Specimen Type: URINE Comment: If Glucose = >500 and Ketones are positive, please alert the Physician. Ordering Provider: JAMILA BARRON Report Released Date/Time: Apr 04, 2024 05:53 PM Reporting Lab: [facility] [place] [address] [address] Performing Lab: [facility] [place] [address] [address] [facility] [place] [facility] URINALYS IS CLEAN CATCH PROTEIN [MASS/VOLU ME] IN URINE BY TEST STRIP 10 mg/dL 04/07 Specimen Type: URINE Comment: If Glucose = >500 and Ketones are positive, please alert the Physician. Ordering Provider: JAMILA BARRON Report Released Date/Time: Apr 04, 2024 05:53 PM Reporting Lab: [facility] [place] [address] [address] Performing Lab: [facility] [place] [facility] [address] [facility] [address] [facility] [place] [facility] URINALYS IS CLEAN CATCH NITRITE [PRESENCE] IN URINE NEGATIVE mg/dL 04/07 Specimen Type: URINE Comment: If Glucose = >500 and Ketones are positive, please alert the Physician. Ordering Provider: JAMILA BARRON Report Released Date/Time: Apr 04, 2024 05:53 PM Reporting Lab: [facility] [place] [address] [address] Performing Lab: [facility] [place] [address] [address] [facility] [place] [facility] URINALYS IS CLEAN CATCH BILIRUBIN. TOTAL [PRESENCE] IN URINE NEGATIVE mg/dL 04/07 Specimen Type: URINE Comment: If Glucose = >500 and Ketones are positive, please alert the Physician. Ordering Provider: JAMILA BARRON Report Released Date/Time: Apr 04, 2024 05:53 PM Reporting Lab: [facility] [place] [address] [address] Performing Lab: [facility] [place] [address] [address] [facility] [place] [facility] URINALYS IS CLEAN CATCH SPECIFIC GRAVITY OF URINE BY REFRACTOME TRY 1.024 1.016 - 1.022 04/07 H Specimen Type: URINE Comment: If Glucose = >500 and Ketones are positive, please alert the Physician. Ordering Provider: JAMILA BARRON Report Released Date/Time: Apr 04, 2024 05:53 PM Reporting Lab: [facility] [place] [address] [address] Performing Lab: [facility] [place] [address] [address] [facility] [place] [facility] URINALYS IS CLEAN CATCH PH OF URINE BY TEST STRIP 7.0 5.0 - 9.0 04/07 Specimen Type: URINE Comment: If Glucose = >500 and Ketones are positive, please alert the Physician. Ordering Provider: JAMILA BARRON Report Released Date/Time: Apr 04, 2024 05:53 PM Reporting Lab: [facility]TRN [place] [facility] [address] [facility] [address] Performing Lab: [facility] [place] [facility] [address] [facility] [address] [facility]TR[facility] [place] [facility] URINALYS IS CLEAN CATCH UROBILINOG EN [MASS/VOLU ME] IN URINE BY TEST STRIP Normalmg /dL <2.0 - 2.0 04/07 Specimen Type: URINE Comment: If Glucose = >500 and Ketones are positive, please alert the Physician. Ordering Provider: JAMILA BARRON Report Released Date/Time: Apr 04, 2024 05:53 PM Reporting Lab: [facility] CENTERTRN [address]SE[address] [address] Performing Lab: [facility]ENTERTRN [place] [facility] SSD[facility] [address] [address] [facility]ITALRC[facility] URINALYS IS CLEAN CATCH LEUKOCYTE ESTERASE [PRESENCE] IN URINE BY TEST STRIP NEGATIVE 04/07 Specimen Type: URINE Comment: If Glucose = >500 and Ketones are positive, please alert the Physician. Ordering Provider: JAMILA BARRON Report Released Date/Time: Apr 04, 2024 05:53 PM Reporting Lab: [facility]ENTERTRN [place] [facility] SSD[facility] [address] [address] Performing Lab: [facility] [place] [address] [address] [facility]ITALR[facility]ENTERTRN [place] [facility] BASIC METABOLI C PANEL (fasting ) UREA NITROGEN [MASS/VOLU ME] IN SERUM OR PLASMA 16 mg/dL 7 - 10/07 Specimen Type: SERUM No comment entered. Ordering Provider: JAMILA BARRON Report Released Date/Time: Oct 05, 2023 11:58 PM Reporting Lab: [facility]ENTERTRN [place] [facility] SSDUSE[address] [address] Performing Lab: [facility]ITALRC[facility] [place] [facility] SSDUSE[address] [address] [facility] [place] [facility] BASIC METABOLI C PANEL (fasting ) GLUCOSE [MASS/VOLU ME] IN SERUM OR PLASMA 102 mg/dL 65 - 100 10/07 H Specimen Type: SERUM No comment entered. Ordering Provider: JAMILA BARRON Report Released Date/Time: Oct 05, 2023 11:58 PM Reporting Lab: [facility] [place] [facility] [address] [facility] [address] Performing Lab: [facility] [place] [facility] [address] [facility] [address] [facility] [place] [facility] BASIC METABOLI C PANEL (fasting ) SODIUM [MOLES/VOL UME] IN SERUM OR PLASMA 143 mmol/L 135 - 145 10/07 Specimen Type: SERUM No comment entered. Ordering Provider: JAMILA BARRON Report Released Date/Time: Oct 05, 2023 11:58 PM Reporting Lab: [facility] [place] [address] [address] Performing Lab: [facility] [place] [address] [address] [facility] [place] [facility] BASIC METABOLI C PANEL (fasting ) POTASSIUM [MOLES/VOL UME] IN SERUM OR PLASMA 4.4 mmol/L 3.5 - 5.0 10/07 Specimen Type: SERUM No comment entered. Ordering Provider: JAMILA BARRON Report Released Date/Time: Oct 05, 2023 11:58 PM Reporting Lab: [facility] [place] [facility] [address] [facility] [address] Performing Lab: [facility] [place] [facility] [address] [facility] [address] [facility] [place] [facility] BASIC METABOLI C PANEL (fasting ) CHLORIDE [MOLES/VOL UME] IN SERUM OR PLASMA 106 mmol/L 100 - 110 10/07 Specimen Type: SERUM No comment entered. Ordering Provider: JAMILA BARRON Report Released Date/Time: Oct 05, 2023 11:58 PM Reporting Lab: [facility] [place] [facility] [address] [facility] [address] Performing Lab: [facility] [place] [facility] [address] [facility] [address] [facility] [place] [facility] BASIC METABOLI C PANEL (fasting ) CARBON DIOXIDE, TOTAL [MOLES/VOL UME] IN SERUM OR PLASMA 26 meq/L 20 - 30 10/07 Specimen Type: SERUM No comment entered. Ordering Provider: JAMILA BARRON Report Released Date/Time: Oct 05, 2023 11:58 PM Reporting Lab: [facility] [place] [facility] [address] [facility] [address] Performing Lab: [facility] [place] [facility] [address] [facility] [address] [facility] [place] [facility] BASIC METABOLI C PANEL (fasting ) CREATININE [MASS/VOLU ME] IN SERUM OR PLASMA 1.01 mg/dL 0.50 - 1.40 10/07 Specimen Type: SERUM No comment entered. Ordering Provider: JAMILA BARRON Report Released Date/Time: Oct 05, 2023 11:58 PM Reporting Lab: [facility] [place] [address] [address] Performing Lab: [facility] [address] [address] [facility] [place] [facility] SSD[facility] BASIC METABOLI C PANEL (fasting ) GLOMERULAR FILTRATION RATE/1.73 SQ M.PREDICTE D [VOLUME RATE/AREA] IN SERUM, PLASMA OR BLOOD BY CREATININE -BASED FORMULA (CKD-EPI 2020) 73 mL/min 60 10/07 Specimen Type: SERUM No comment entered. Ordering Provider: JAMILA BARRON Report Released Date/Time: Oct 05, 2023 11:58 PM Reporting Lab: [facility] [place] [facility] [address] [facility] [address] Performing Lab: [facility] [place] [address] [address] [facility] [place] [facility] CBC AND DIFF (AUTO) LEUKOCYTES [#/VOLUME] IN BLOOD BY AUTOMATED COUNT 7.99 10*3/uL 4.50 - 11.00 10/07 Specimen Type: BLOOD No comment entered. Ordering Provider: JAMILA BARRON Report Released Date/Time: Oct 05, 2023 11:58 PM Reporting Lab: [facility] [place] [facility] [address] [facility] [address] Performing Lab: [facility] [place] [facility] [address] [facility] [address] [facility] [place] [facility] CBC AND DIFF (AUTO) ERYTHROCYT ES [#/VOLUME] IN BLOOD BY AUTOMATED COUNT 4.47 10*6/uL 4.23 - 5.66 10/07 Specimen Type: BLOOD No comment entered. Ordering Provider: JAMILA BARRON Report Released Date/Time: Oct 05, 2023 11:58 PM Reporting Lab: [facility] [place] [address] [address] Performing Lab: [facility] [place] [facility] [address] [facility] [address] [facility] [place] [facility] CBC AND DIFF (AUTO) HEMOGLOBIN [MASS/VOLU ME] IN BLOOD 14.6 g/dL 12.8 - 17 10/07 Specimen Type: BLOOD No comment entered. Ordering Provider: JAMILA BARRON Report Released Date/Time: Oct 05, 2023 11:58 PM Reporting Lab: [facility] [place] [address] [address] Performing Lab: [facility] [place] [facility] [address] [facility] [address] [facility] [place] [facility] CBC AND DIFF (AUTO) HEMATOCRIT [VOLUME FRACTION] OF BLOOD BY AUTOMATED COUNT 42.7 39.2 - 50.4 10/07 Specimen Type: BLOOD No comment entered. Ordering Provider: JAMILA BARRON Report Released Date/Time: Oct 05, 2023 11:58 PM Reporting Lab: [facility] [place] [facility] [address] [facility] [address] Performing Lab: [facility] [place] [address] [address] [facility] [place] [facility] CBC AND DIFF (AUTO) MCV [ENTITIC VOLUME] BY AUTOMATED COUNT 95.5 fL 82 - 99 10/07 Specimen Type: BLOOD No comment entered. Ordering Provider: JAMILA BARRON Report Released Date/Time: Oct 05, 2023 11:58 PM Reporting Lab: [facility] [place] [facility] [address] [facility] [address] Performing Lab: [facility] [place] [facility] [address] [facility] [address] [facility] [place] [facility] CBC AND DIFF (AUTO) MCHC [MASS/VOLU ME] BY AUTOMATED COUNT 34.2 g/dL 30.8 - 35.1 10/07 Specimen Type: BLOOD No comment entered. Ordering Provider: JAMILA BARRON Report Released Date/Time: Oct 05, 2023 11:58 PM Reporting Lab: [facility] [place] [address] [address] Performing Lab: [facility] [place] [address] [address] [facility] [place] [facility] CBC AND DIFF (AUTO) PLATELETS [#/VOLUME] IN BLOOD BY AUTOMATED COUNT 126 10*3/uL 140 - 360 10/07 L Specimen Type: BLOOD No comment entered. Ordering Provider: JAMILA BARRON Report Released Date/Time: Oct 05, 2023 11:58 PM Reporting Lab: [facility] [place] [address] [address] Performing Lab: [facility] [place] [facility] [address] [facility] [address] [facility] [place] [facility] CBC AND DIFF (AUTO) ERYTHROCYT E DISTRIBUTI ON WIDTH [RATIO] BY AUTOMATED COUNT 12.9 12.0 - 16.0 10/07 Specimen Type: BLOOD No comment entered. Ordering Provider: JAMILA BARRON Report Released Date/Time: Oct 05, 2023 11:58 PM Reporting Lab: [facility] [place] [address] [address] Performing Lab: [facility] [place] [facility] [address] [facility] [address] [facility] [place] [facility] CBC AND DIFF (AUTO) MONOCYTES [#/VOLUME] IN BLOOD BY AUTOMATED COUNT 0.79 10*3/uL 0.30 - 1.10 10/07 Specimen Type: BLOOD No comment entered. Ordering Provider: JAMILA BARRON Report Released Date/Time: Oct 05, 2023 11:58 PM Reporting Lab: [facility] [place] [facility] [address] [facility] [address] Performing Lab: [facility] [place] [facility] [address] [facility] [address] [facility] CBC AND DIFF (AUTO) MCH [ENTITIC MASS] BY AUTOMATED COUNT 32.7 pg 26.2 - 32.6 10/07 H Specimen Type: BLOOD No comment entered. Ordering Provider: JAMILA BARRON Report Released Date/Time: Oct 05, 2023 11:58 PM Reporting Lab: [facility] [place] [facility] [address] [facility] [address] Performing Lab: [facility] [place] [facility] [address] [facility] [address] [facility] [facility] CBC AND DIFF (AUTO) NEUTROPHIL S/100 LEUKOCYTES IN BLOOD BY AUTOMATED COUNT 54.5 43.7 - 75.8 10/07 Specimen Type: BLOOD No comment entered. Ordering Provider: JAMILA BARRON Report Released Date/Time: Oct 05, 2023 11:58 PM Reporting Lab: [facility] [place] [facility] [address] [facility] [address] Performing Lab: [facility] [place] [facility] [address] [facility] [address] [facility] CBC AND DIFF (AUTO) LYMPHOCYTE S/100 LEUKOCYTES IN BLOOD BY AUTOMATED COUNT 33.3 14.0 - 42.3 10/07 Specimen Type: BLOOD No comment entered. Ordering Provider: JAMILA BARRON Report Released Date/Time: Oct 05, 2023 11:58 PM Reporting Lab: [facility] [place] [facility] [address] [facility] [address] Performing Lab: [facility] [place] [facility] [address] [facility] [address] [facility] [facility] CBC AND DIFF (AUTO) MONOCYTES/ 100 LEUKOCYTES IN BLOOD BY AUTOMATED COUNT 9.9 5.1 - 13.7 10/07 Specimen Type: BLOOD No comment entered. Ordering Provider: JAMILA BARRON Report Released Date/Time: Oct 05, 2023 11:58 PM Reporting Lab: [facility] [place] [facility] [address] [facility] [address] Performing Lab: [facility] [place] [facility] [address] [facility] [address] [facility] CBC AND DIFF (AUTO) EOSINOPHIL S/100 LEUKOCYTES IN BLOOD BY AUTOMATED COUNT 1.4 0.4 - 6.8 10/07 Specimen Type: BLOOD No comment entered. Ordering Provider: JAMILA BARRON Report Released Date/Time: Oct 05, 2023 11:58 PM Reporting Lab: [facility] [place] [facility] [address] [facility] [address] Performing Lab: [facility] [place] [facility] [address] [facility] [address] [facility] [facility] CBC AND DIFF (AUTO) BASOPHILS/ 100 LEUKOCYTES IN BLOOD BY AUTOMATED COUNT 0.6 0.1 - 2.0 10/07 Specimen Type: BLOOD No comment entered. Ordering Provider: JAMILA BARRON Report Released Date/Time: Oct 05, 2023 11:58 PM Reporting Lab: [facility] [place] [facility] [address] [facility] [address] Performing Lab: [facility] [place] [facility] [address] [facility] [address] [facility] [place] [facility] CBC AND DIFF (AUTO) NEUTROPHIL S [#/VOLUME] IN BLOOD BY AUTOMATED COUNT 4.36 10*3/uL 2.20 - 7.60 10/07 Specimen Type: BLOOD No comment entered. Ordering Provider: JAMILA BARRON Report Released Date/Time: Oct 05, 2023 11:58 PM Reporting Lab: [facility] [place] [facility] [address] [facility] [address] Performing Lab: [facility] [address] [facility] [address] [facility] CBC AND DIFF (AUTO) LYMPHOCYTE S [#/VOLUME] IN BLOOD BY AUTOMATED COUNT 2.66 10*3/uL 1.00 - 3.20 10/07 Specimen Type: BLOOD No comment entered. Ordering Provider: JAMILA BARRON Report Released Date/Time: Oct 05, 2023 11:58 PM Reporting Lab: [facility] [address] [facility] [address] Performing Lab: [facility] [place] [facility] [address] [facility] [address] [facility] CBC AND DIFF (AUTO) EOSINOPHIL S [#/VOLUME] IN BLOOD BY AUTOMATED COUNT 0.11 10*3/uL 0.03 - 0.44 10/07 Specimen Type: BLOOD No comment entered. Ordering Provider: JAMILA BARRON Report Released Date/Time: Oct 05, 2023 11:58 PM Reporting Lab: [facility] [address] [facility] [address] Performing Lab: [facility] [address] [place] [address] [facility] CBC AND DIFF (AUTO) BASOPHILS [#/VOLUME] IN BLOOD BY AUTOMATED COUNT 0.05 10*3/uL 0.01 - 0.13 10/07 Specimen Type: BLOOD No comment entered. Ordering Provider: JAMILA BARRON Report Released Date/Time: Oct 05, 2023 11:58 PM Reporting Lab: [facility] [address] [facility] [address] Performing Lab: [facility] [facility] [address] [place] [address] [facility] CBC AND DIFF (AUTO) IMMATURE GRANULOCYT ES/100 LEUKOCYTES IN BLOOD BY AUTOMATED COUNT 0.3 0.0 - 0.7 10/07 Specimen Type: BLOOD No comment entered. Ordering Provider: JAMILA BARRON Report Released Date/Time: Oct 05, 2023 11:58 PM Reporting Lab: [facility] [place] [address] [address] Performing Lab: [facility] [place] [facility] [address] [facility] [address] [facility] [place] [facility] CBC AND DIFF (AUTO) IMMATURE GRANULOCYT ES [#/VOLUME] IN BLOOD 0.02 10*3/uL 0.00 - 0.06 10/07 Specimen Type: BLOOD No comment entered. Ordering Provider: JAMILA BARRON Report Released Date/Time: Oct 05, 2023 11:58 PM Reporting Lab: [facility] [place] [address] [address] Performing Lab: [facility] [place] [address] [address] [facility] LIVER FUNCTION PROTEIN [MASS/VOLU ME] IN SERUM OR PLASMA 6.6 g/dL 6.0 - 8.3 10/07 Specimen Type: SERUM No comment entered. Ordering Provider: JAMILA BARRON Report Released Date/Time: Oct 05, 2023 11:58 PM Reporting Lab: [facility] [place] [address] [address] Performing Lab: [facility] [place] [facility] [address] [facility] [address] [facility] [facility] LIVER FUNCTION ALBUMIN [MASS/VOLU ME] IN SERUM OR PLASMA 3.8 g/dL 3.5 - 5.0 10/07 Specimen Type: SERUM No comment entered. Ordering Provider: JAMILA BARRON Report Released Date/Time: Oct 05, 2023 11:58 PM Reporting Lab: [facility] [place] [address] [address] Performing Lab: [facility] [place] [facility] [address] [facility] [address] [facility] [place] [facility] LIVER FUNCTION ALKALINE PHOSPHATAS E [ENZYMATIC ACTIVITY/V OLUME] IN SERUM OR PLASMA 103 U/L 40 - 150 10/07 Specimen Type: SERUM No comment entered. Ordering Provider: JAMILA BARRON Report Released Date/Time: Oct 05, 2023 11:58 PM Reporting Lab: [facility] [place] [facility] [address] [facility] [address] Performing Lab: [facility] [place] [facility] [address] [facility] [address] [facility] [place] [facility] LIVER FUNCTION ASPARTATE AMINOTRANS FERASE [ENZYMATIC ACTIVITY/V OLUME] IN SERUM OR PLASMA 33 U/L 5 - 34 10/07 Specimen Type: SERUM No comment entered. Ordering Provider: JAMILA BARRON Report Released Date/Time: Oct 05, 2023 11:58 PM Reporting Lab: [facility] [place] [facility] [address] [facility] [address] Performing Lab: [facility] [place] [facility] [address] [facility] [address] [facility] [place] [facility] LIVER FUNCTION ALANINE AMINOTRANS FERASE [ENZYMATIC ACTIVITY/V OLUME] IN SERUM OR PLASMA 29 U/L 10/07 Specimen Type: SERUM No comment entered. Ordering Provider: JAMILA BARRON Report Released Date/Time: Oct 05, 2023 11:58 PM Reporting Lab: [facility] [place] [facility] [address] [facility] [address] Performing Lab: [facility] [place] [facility] [address] [facility] [address] [facility] [place] [facility] LIVER FUNCTION BILIRUBIN. TOTAL [MASS/VOLU ME] IN SERUM OR PLASMA 0.7 mg/dL 0.2 - 1.2 10/07 Specimen Type: SERUM No comment entered. Ordering Provider: JAMILA BARRON Report Released Date/Time: Oct 05, 2023 11:58 PM Reporting Lab: [facility] [place] [facility] [address] [facility] [address] Performing Lab: [facility] [place] [facility] [address] [facility] [address] [facility] TSH THYROTROPI N [UNITS/VOL UME] IN SERUM OR PLASMA 2.46 u[IU]/mL 0.35 - 5.00 10/07 Specimen Type: SERUM No comment entered. Ordering Provider: JAMILA BARRON Report Released Date/Time: Oct 05, 2023 11:58 PM Reporting Lab: [facility] [address] [facility] [address] Performing Lab: [facility] [place] [facility] [address] [facility] [address] [facility] Vital Signs Combined list of inpatient and outpatient Vital Signs from Department of Defense and Veterans Affairs, ranging from 12 months to all on record, depending upon the facility. Vital Sign Value Date Comments Source SYSTOLIC BLOOD PRESSURE 162 04/13/20 24 13:23:12 [facility] DIASTOLIC BLOOD PRESSURE 70 04/13/ 024 13:23:12 [facility] PULSE OXIMETRY 96 04/13/2024 13:23:12 [facility] WEIGHT 193.8 04/13/2024 13:23:12 [facility] BMI 31kg/m2 04/13/2024 13:23:12 [facility] PAIN 0 04/13/2024 13:23:12 [facility] HEIGHT 66 04/13/2024 13:23:12 [facility] TEMPERATURE 97.8 04/13/2024 13:23:12 [facility] PULSE 73 04/13/2024 13:23:12 [facility] RESPIRATION 16 04/13/2024 13:23:12 [facility] SYSTOLIC BLOOD PRESSURE 151 03/24/20 24 13:48:12 [facility] DIASTOLIC BLOOD PRESSURE 78 024 13:48:12 [facility] PULSE OXIMETRY 97 03/24/2024 13:48:12 [facility] PAIN 0 03/24/2024 13:48:12 [facility] TEMPERATURE 98.1 03/24/2024 13:48:12 [facility] PULSE 80 03/24/2024 13:48:12 [facility] RESPIRATION 16 03/24/2024 13:48:12 [facility] SYSTOLIC BLOOD PRESSURE 170 03/05/20 24 08:39:01 [facility] DIASTOLIC BLOOD PRESSURE 65 024 08:39:01 [facility] PULSE OXIMETRY 98 03/05/2024 08:39:01 [facility] PAIN 1 03/05/2024 08:39:01 [facility] TEMPERATURE 97.5 03/05/2024 08:39:01 [facility] PULSE 71 03/05/2024 08:39:01 [facility] RESPIRATION 16 03/05/2024 08:39:01 [facility] SYSTOLIC BLOOD PRESSURE 140 10/16/19 24 13:15:19 [facility] DIASTOLIC BLOOD PRESSURE 72 024 13:15:19 [facility] PULSE OXIMETRY 98 10/16/2023 13:15:19 [facility] WEIGHT 211 10/16/2023 13:15:19 [facility] BMI 35kg/m2 10/16/2023 13:15:19 [facility] PAIN 0 10/16/2023 13:15:19 [facility] TEMPERATURE 98.2 10/16/2023 13:15:19 [facility] PULSE 86 10/16/2023 13:15:19 [facility] RESPIRATION 16 10/16/2023 13:15:19 [facility] Encounters Combined list of: 1) Encounters from Department of Veterans Affairs facilities going back up to thelast 18 months. 2) Encounters from the Department of [facility] facilities going back up to 280 months. 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
RANCHO RODRIGUEZ 01/08 [facility] Encounter [id number] 03/06 [facility] Out[facility] Encounter [id number] 04/08 [facility] OFFICE O/P EST SF 10-19 MIN [id number] Diagnos is: ICD-10- CM I10 Essenti al (primar y) hyperte nsion<b r/> RICO BARRON RD 04/15 [facility] Out[facility] Encounter [id number] 04/16 [facility] OFFICE O/P EST LOW 20-29 MIN [id number] Diagnos is: ICD-10- CM 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
RANCHO RODRIGUEZ 04/30 [facility] Encounter [id number] 06/14 [facility] Out[facility] Encounter [id number] 06/16 [facility] Out[facility] Encounter [id number] 06/19 [facility] Encounter [id number] 06/27 [facility] Outpatient Encounter [id number] 10/08 [facility] OFFICE O/P EST LOW 20 MIN [id number] Diagnos is: ICD-10- CM H67.3 Otitis media in disease s classif ied elsewhe re, bilater al
RICO BARRON RD D 10/15 [facility] OFF/OP EST MAY X REQ PHY/QHP [id number] Diagnos is: ICD-10- CM Z23 Encount er for immuniz ation<b r/> RICO BARRON RD D 10/15 [facility] UNLISTED SPEC DERM SVC/PX [id number] Diagnos is: ICD-10- CM Z13.89 Encount er for screeni ng for other disorde r
GORDON BEAUCHAMP ICA A 10/23 [facility] OFFICE O/P EST SF 10 MIN [id number] Diagnos is: ICD-10- CM R21 Rash and other nonspec ific skin eruptio n
WILEY PASTOR PH J 10/23 [facility] Out[facility] Encounter [id number] 10/23 [facility] Out[facility] Encounter [id number] 10/23 [facility] Encounter [id number] 11/20 [facility] Out[facility] Encounter [id number] 11/24 [facility] Out[facility] Encounter [id number] 11/27 [facility] Encounter [id number] 11/28 [facility] Encounter [id number] 11/30 [facility] UNLISTED SPEC DERM SVC/PX [id number] Diagnos is: ICD-10- CM Z13.89 Encount er for screeni ng for other disorde r
GORDON BEAUCHAMP ICA A 12/04 [facility] En[facility] [id number] 12/04 [facility] Outpatient Encounter [id number] Diagnos is: ICD-10- CM D48.5 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
Yossi HARRINGTON 12/29 [facility] En[facility] [id number] 12/29 [facility] Out[facility] Encounter [id number] 01/05 [facility] Out[facility] Encounter [id number] 01/09 [facility] Out[facility] Encounter [id number] 01/12 [facility] Out[facility] Encounter [id number] 01/12 [facility] Out[facility] Encounter [id number] 01/12 [facility] Out[facility] Encounter [id number] IRASEMA MONTILLA 01/13 [facility] Encounter [id number] 01/16 [facility] Out[facility] Encounter [id number] 01/19 [facility] Encounter [id number] 01/22 [facility] Out[facility] Encounter [id number] 02/02 [facility] ORTHC/PROS TC MGMT SBSQ ENC [id number] Diagnos is: ICD-10- CM M84.472 A Patholo gical fractur e, left ankle, init encntr for fractur e
Thierno HAMPTON 02/02 [facility] Encounter [id number] 02/10 [facility] Out[facility] Encounter [id number] 02/13 [facility] Out[facility] Encounter [id number] 03/04 [facility] Out[facility] Encounter [id number] 03/04 [facility] OFF/OP EST MAY X REQ PHY/QHP [id number] Diagnos is: ICD-10- CM Z71.89 Other specifi ed career guidance counselor ing<br/ > JOSIE KINGSTON 03/05 [facility] OFFICE O/P EST LOW 20 MIN [id number] Diagnos is: ICD-10- CM L60.1 Onychol ysis
PASCUAL STERN 03/05 [facility] OFF/OP EST MAY X REQ PHY/QHP [id number] Diagnos is: ICD-10- CM Z48.01 Encount er for change or removal of surgica l wound dressin g
KAVEH SIEGEL L 03/06 [facility] OFF/OP CNSLTJ NEW/EST MOD 40 [id number] Diagnos is: ICD-10- CM H90.A31 Mix cndct/s nrl hear loss,un i,r ear w rstrcd hear cntra side
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
Yossi HARRINGTON 03/31 [facility] Out[facility] Encounter [id number] 04/09 [facility] OFFICE O/P EST LOW 20 MIN [id number] 1. 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
RANCHO RODRIGUEZ 04/28 [facility] CONFORMITY EVALUATION [id number] Diagnos is: ICD-10- CM Z46.1 Encount er for fitting and adjustm ent of hearing aid<br/ > Yossi HARRINGTON 05/05 [facility] Outpatient Encounter [id number] 06/03 [facility] Outpatient Encounter [id number] 06/06 [facility] Social History Combined list of available smoking, tobacco, and other social history from Department of Defense and Veterans Affairs facilities. Social History Type Response Date Comment Sour e Tobacco smoking status NHIS VA-TOBACCO FORMER USER 10/16/2023 [facility] [facility] History of tobacco use VA-TOBACCO QUIT 15 YRS OR MORE 10/16/2023 [facility] [place] [facility] History of tobacco use VA-TOBACCO FORMER USER 07/04/2022 [facility] [place] [facility] History of tobacco use NSG NO TOBACCO USE PAST 30 DAYS 03/27/2022 [place] History of tobacco use NSG NO TOBACCO USE PAST 30 DAYS 03/05/2022 [place] History of tobacco use NSG NO TOBACCO USE PAST 30 DAYS 03/02/2022 [place] History of tobacco use VA-TOBACCO FORMER USER 06/28/2021 [facility] [place] [facility] History of tobacco use VA-TOBACCO FORMER USER 05/26/2020 [facility] [place] [facility] History of tobacco use VA-TOBACCO NEVER USED 05/23/2018 [facility] [place] [facility] Plan of Care List of future care activities from Department of Veterans Affairs facilities. Additional future care activities may be listed in the Assessment and Plan section. Date/Time Care Activity Care Activity Detail Facili ty 08/14/2024 AMBULATORY - MEDICINE AMBULATORY - [place] [facility] [place] [facility] 10/07/2024 AMBULATORY - MEDICINE AM[place]ULATORY [place] [facility] [place] [facility] 10/28/2024 AMBULATORY - MEDICINE AMBULATORY [place] [facility] [place] [facility] 06/06/2024 Consult Order [facility] Cons Glue [employer] [place] [facility] [place] [facility] Advance Directives List of completed, amended, or rescinded Advance Directives on record at [facility] facilities. An actual copy of the Directive is not included. Date Advance Directive Provider Source 02/19/2022 ADVANCE DIRECTIVE JOCE CASTORENA [facility] 11/16/2020 ADVANCE DIRECTIVE BYRON BARRON [facility]
--- OUTSIDE RECORDS SUMMARY | 2024-06-23 13:57 | XMS_ITS ---
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 Address [address] [place] [address] Care Team Providers Care Tavern Car Attendant Name Role Phone BYRON BARRON Primary Care Provider Unavailabl e Insurance Providers: All historical and current Section Date Range: From patient's date of to the date document was created. This section includes the names of all active insurance providers for the patient. Insurance Provider Type of Coverage Plan Name Start of Policy Coverage End of Policy Coverage Group Number Member ID Insurance Provider's Telephone Number Policy Basurto's Name Patient's Relationship to Policy Basurto [employer] MED[employer]ARE SUPPLEMEN YORDAN MEDIC ARE SUPPL EMENT * Dec 19, 2007 MEDICAR E SUPPLEM E [id number] NYDIA HUERTA UL PATIENT [employer] MEDICARE SUPPLEMEN YORDAN Dec 19, 2007 MEDICAR E SUPPLEM E [id number] NYDIA HUERTA UL PATIENT [employer] MEDICARE SUPPLEMEN YORDAN BANKE RS Dec 19, 2007 NONE [id number] NYDIA HUERTA UL PATIENT MEDICARE (WNR) MEDICARE (M) PART B Oct 13, 2006 PART B [id number] NYDIA HUERTA UL PATIENT MEDICARE (WNR) MEDICARE (M) PART B Oct 13, 2006 PART B [id number] [facility] [place] PATIENT MEDICARE (WNR) MEDICARE (M) PART B Oct 13, 2006 PART B [id number] NYDIA HUERTA PATIENT MEDICARE (WNR) MEDICARE (M) PART B Oct 13, 2006 PART B [id number] NYDIA HUERTA PATIENT MEDICARE (WNR) MEDICARE (M) PART A Sep 13, 2003 PART A [id number] [phone] NYDIA HUERTA PATIENT MEDICARE (WNR) MEDICARE (M) PART A Sep 13, 2003 PART A [id number] NYDIA HUERTA PATIENT MEDICARE (WNR) MEDICARE (M) PART A Sep 13, 2003 PART A [id number] NYDIA HUERTA PATIENT MEDICARE (WNR) MEDICARE (M) PART A Sep 13, 2003 PART A [id number] NYDIA HUERTA PATIENT Selected Encounter This section includes the information on record at [place] for the Encounter. Date/Time Encounter Type Encounter Description Reason Pro vider Source Jan 17, 2024 07:40 AM Outpatient Encounter COMMUNITY CARE CONSULT IHE Encounter Template Text not used by [place] Plan of Treatment: Future Appointments (+ 6 months) and Future Tests (+/- 45 days) The Plan of Treatment section includes future care activities for the patient from all [place] treatmentfacilities. This section includes future appointments and future orders which are active, pending or scheduled. Future Appointments This section includes appointments that were scheduled to occur 6 months from the date of the Encounter, up to a maximum of 20 appointments. The data comes from all [place] treatment facilities. Appointment Date/Time Appointment Type Appointme nt Facility Name Jan 21, 2024 08:00 AM AMBULATORY - MEDICINE [place] [facility] Feb 03, 2024 01:30 PM AMBULATORY - REHAB MEDICIN E [place] [facility] [place] [facility] Mar 05, 2024 08:00 AM AMBULATORY - MEDICINE [place] C [facility] [facility] Mar 05, 2024 09:00 AM AMBULATORY - MEDICINE [place] [facility] [place] [facility] Mar 06, 2024 08:00 AM AMBULATORY - MEDICINE [place] C [facility] [place] [facility] Mar 24, 2024 02:00 PM AMBULATORY - MEDICINE [place] C [facility] [place] [facility] Mar 31, 2024 09:30 AM AMBULATORY - REHAB MEDICIN E [place] [facility] [place] [facility] Apr 13, 2024 01:30 PM AMBULATORY - MEDICINE [place] C [facility] [place] [facility] Apr 28, 2024 02:00 PM AMBULATORY - MEDICINE [place] [facility] [facility] May 05, 2024 02:00 PM AMBULATORY - REHAB MEDICIN E [place] [facility] [place] [facility] Jun 16, 2024 01:15 PM AMBULATORY - MEDICINE [facility] [place] [facility] Social History: Smoking Status (Most current) and Tobacco Use (All prior to encounter date) This section includes the most current, and the historical, smoking and tobacco- related health factors from the [place] facility where the Encounter took place. Current Smoking Status This section includes the most current smoking, or tobacco-related health factor, from the [place] facility where the Encounter took place. Date/Time Current Smoking Status Comment Facil ity Oct 16, 2023 01:30 PM VA-TOBACCO FORMER USER [place] [facility] [facility] Tobacco Use History This section includes a history of the smoking, or tobacco-related health factors, that were collected on or before the date of the Encounter. The data comes from the [place] facility where the Encounter took place. Date/Time Smoking Status/Tobacco Use Comment F acility Oct 16, 2023 01:30 PM VA-TOBACCO QUIT 15 YRS OR MORE [facility] [facility] Jul 04, 2022 11:00 AM VA-TOBACCO FORMER USER [place] [facility] [facility] Jul 04, 2022 11:00 AM VA-TOBACCO QUIT 15 YRS OR MORE [facility] [place] [facility] Jun 28, 2021 10:30 AM VA-TOBACCO FORMER USER [place] [facility] [place] [facility] Jun 28, 2021 10:30 AM VA-TOBACCO QUIT 15 YRS OR MORE [facility] [place] [facility] May 26, 2020 08:00 AM VA-TOBACCO FORMER USER [place] [facility] [place] [facility] May 26, 2020 08:00 AM VA-TOBACCO QUIT [address] [facility] May 23, 2018 11:21 AM [place]-TOBACCO NEVER USED [facility] Advance Directives: All historical and current Section Date Range: From patient's date of to the date document was created. This section includes ALL of a patient's completed or amended [place] Advance and Rescinded Directives. The entries below indicate that a directive exists for the patient, but an actual copy is not included with this document. The data comes from all [place] facilities. Date Advance Directives Provider Source Feb 19, 2022 ADVANCE DIRECTIVE JOCE CASTORENA [facility] November 16, 2020 ADVANCE DIRECTIVE BYRON BARRON [facility] Encounter Notes: All associated encounter notes This section contains the clinical notes associated to the Encounter. Date/Time Encounter Note(s) Provider Source Jan 17, 2024 07:40 AM ADMINISTRATIVE NOT E: LOCAL TITLE: ADMINISTRATIVE NOTE STANDARD TITLE: ADMINISTRATIVE NOTE DATE OF NOTE: JAN 17, 2024@07:40 ENTRY DATE: JAN 17, 2024@07:40:31 AUTHOR: ARPAN MARR EXP COSIGNER: URGENCY: STATUS: COMPLETED HAS BEEN REFERRED TO THE [facility] PROGRAM FOR PLASTICS ENGINEER SERVICES. LETTER EXPLAINING THE GUIDELINES OF THIS PROGRAM HAS BEEN MAILED TO / FAMILY /es/ ARPAN MARR Signed: 01/17/2024 07:40 ARPAN MARR [facility]
--- OUTSIDE RECORDS SUMMARY | 2024-06-23 13:57 | XMS_ITS ---
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 Address [address] [place] [address] Care Team Providers Care Environmental Coordinator Name Role Phone BYRON BARRON Primary Care [...] Dec 19, 2007 MEDICAR E SUPPLEM E [id number] NYDIA HUERTA PATIENT [employer] MEDICARE SUPPLEMEN YORDAN Dec 19, 2007 MEDICAR E SUPPLEM E [id number] NYDIA HUERTA UL PATIENT [employer] MEDIC[employer] SUPPLEMEN YORDAN BANKE RS Dec 19, 2007 NONE [id number] [phone] NYDIA HUERTA PATIENT MEDICARE (WNR) MEDICARE (M) PART B Oct 13, 2006 PART B [id number] NYDIA HUERTA UL PATIENT MEDICARE (WNR) MEDICARE (M) PART B Oct 13, 2006 PART B [id number] [phone] NYDIA HUERTA PATIENT MEDICARE (WNR) MEDICARE (M) PART B Oct 13, 2006 PART B [id number] NYDIA HUERTA PATIENT MEDICARE (WNR) MEDICARE (M) PART B Oct 13, 2006 PART B [id number] NYDIA HUERTA PATIENT MEDICARE (WNR) MEDICARE (M) PART A Sep 13, 2003 PART A [id number] NYDIA HUERTA PATIENT MEDICARE (WNR) MEDICARE (M) PART A Sep 13, 2003 PART A [id number] NYDIA HUERTA PATIENT MEDICARE (WNR) MEDICARE (M) PART A Sep 13, 2003 PART A [id number] NYDIA HUERTA PATIENT MEDICARE (WNR) MEDICARE (M) PART A Sep 13, 2003 PART A [id number] [phone] NYDIA HUERTA PATIENT Selected Encounter This section includes the information on record at [place] for the Encounter. Date/Time Encounter Type Encounter Description Reason Pro vider Source Jan 06, 2024 05:43 PM Outpatient Encounter OTOLARYNGOLOGY/ENT IHE Encounter Template Text not used by [place] Plan of Treatment: Future Appointments (+ 6 months) and Future Tests (+/- 45 days) The Plan of Treatment section includes future care activities for the patient from all [place] treatmentfacilities. This section includes future appointments and future orders which are active, pending or scheduled. Future Appointments This section includes appointments that were scheduled to occur 6 months from the date of the Encounter, up to a maximum of 20 appointments. The data comes from all [place] treatment facilities. Appointment Date/Time Appointment Type Appointme nt Facility Name Jan 13, 2024 01:20 PM AMBULATORY - MEDICINE [place] [facility] [place] [facility] Jan 21, 2024 08:00 AM AM[facility]ULATORY [facility] [place] [facility] Feb 03, 2024 01:30 PM AMBULATORY - REHAB MEDICIN E [place] [facility] [place] [facility] Mar 05, 2024 08:00 AM AMBULATORY - MEDICINE [place] C [facility] [place] [facility] Mar 05, 2024 09:00 AM AMBULATORY - MEDICINE [place] C [facility] [place] [facility] Mar 06, 2024 08:00 AM AMBULATORY - MEDICINE [place] C [facility] [place] [facility] Mar 24, 2024 02:00 PM AMBULATORY - MEDICINE [place] C [facility] [place] [facility] Mar 31, 2024 09:30 AM AMBULATORY - REHAB MEDICIN E [place] [facility] [place] [facility] Apr 13, 2024 01:30 PM AMBULATORY - MEDICINE [place] C [facility] [place] [facility] Apr 28, 2024 02:00 PM AMBULATORY - MEDICINE [place] C [facility] [place] [facility] May 05, 2024 02:00 PM AMBULATORY - REHAB MEDICIN E [place] [facility] [place] [facility] Jun 16, 2024 01:15 PM AMBULATORY - MEDICINE [place] C [facility] [place] [facility] Social History: Smoking Status (Most current) and Tobacco Use (All prior to encounter date) This section includes the most current, and the historical, smoking and tobacco- related health factors from the [place] facility where the Encounter took place. Current Smoking Status This section includes the most current smoking, or tobacco-related health factor, from the [place] facility where the Encounter took place. Date/Time Current Smoking Status Comment Facil ity Oct 16, 2023 01:30 PM VA-TOBACCO FORMER USER [place] [facility] [place] [facility] Tobacco Use History This section includes a history of the smoking, or tobacco-related health factors, that were collected on or before the date of the Encounter. The data comes from the [place] facility where the Encounter took place. Date/Time Smoking Status/Tobacco Use Comment F acility Oct 16, 2023 01:30 PM VA-TOBACCO QUIT 15 YRS OR MORE [place] [facility] [place] [place] [facility] Jul 04, 2022 11:00 AM VA-TOBACCO FORMER USER VA [facility] [facility] Jul 04, 2022 11:00 AM VA-TOBACCO QUIT 15 YRS OR MORE [place] [facility] [place] [facility] Jun 28, 2021 10:30 AM VA-TOBACCO FORMER USER [place] [facility] [place] [facility] Jun 28, 2021 10:30 AM VA-TOBACCO QUIT 15 YRS OR MORE [place] [facility] [place] [facility] May 26, 2020 08:00 AM VA-TOBACCO FORMER USER [place] [facility] [place] [facility] May 26, 2020 08:00 AM VA-TOBACCO QUIT 15 YRS OR MORE [facility] May 23, 2018 11:21 AM VA-TOBACCO [facility]ED [facility] Advance Directives: All historical and current Section Date Range: From patient's date of to the date document was created. This section includes ALL of a patient's completed or amended [place] Advance and Rescinded Directives. The entries below indicate that a directive exists for the patient, but an actual copy is not included with this document. The data comes from all [place] facilities. Date Advance Directives Provider Source Feb 19, 2022 ADVANCE DIRECTIVE JOCE CASTORENA [place] [facility] November 16, 2020 ADVANCE DIRECTIVE BYRON BARRON [facility] Encounter Notes: All associated encounter notes This section contains the clinical notes associated to the Encounter. Date/Time Encounter Note(s) Provider Source Jan 06, 2024 05:44 PM ADMINISTRATIVE NOTE: LOCAL TITLE: ADMINISTRATIVE NOTE STANDARD TITLE: ADMINISTRATIVE NOTE DATE OF NOTE: JAN 06, 2024@17:44 ENTRY DATE: JAN 06, 2024@17:44:10 AUTHOR: FRIDA CORTES EXP COSIGNER: URGENCY: STATUS: COMPLETED ADMINISTRATIVE NOTE Has ADDENDA Patient is seen in [xx] [facility] [] [facility] [] [facility] [] [facility] leaving message on [facility] Call Center voicemail wanting to: [] Speak to provider (name): Concern: [xx] Schedule a new appointment/ reschedule missed appt.: [] Cancelling an existing appt. [] Other: Clinic: (Ivette/Yarelis) [xx] New Consult [] Otolaryngology Vet [x] would like [] does not need [] did not specify if they wanted a call back regarding this matter. Call back phone number left on confirmed same as phone contact on file: /eleanor/ MIKAEL PEGUERO PHYSICAL THERAPIST Signed: 01/06/2024 17:45 Receipt Acknowledged By: 01/07/2024 10:14 /eleanor/ LIZZIE GOODE LEAD LEAD TRAINER 01/07/2024 10:46 /eleanor/ CHEN WALKER ADVANCED LEAD TRAINER 01/07/2024 ADDENDUM STATUS: COMPLETED Scheduled /eleanor/ LIZZIE GOODE LEAD LEAD TRAINER Signed: 01/07/2024 10:15 FRIDA CORTES [place] [facility]
--- OUTSIDE RECORDS SUMMARY | 2024-06-23 13:57 | XMS_ITS | Encounter Summary ---
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 Address [address] [place] [address] Care Team Providers Care Orthotic Assistant Name Role Phone BYRON BARRON Primary Care [...] Dec 19, 2007 MEDICAR E SUPPLEM E [id number] NYDIA MALLORY UL PATIENT [employer] MEDICARE SUPPLEMEN YORDAN Dec 19, 2007 MEDICAR E SUPPLEM E [id number] [phone] NYDIA MALLORY UL PATIENT [employer] [place] MED[employer] SUPPLEMEN YORDAN BANKE RS Dec 19, 2007 NONE [id number] NYDIA MALLORY UL PATIENT MEDICARE (WNR) MEDICARE (M) PART B Oct 13, 2006 PART B [id number] NYDIA MALLORY UL PATIENT MEDICARE (WNR) MEDICARE (M) PART B Oct 13, 2006 PART B [id number] [phone] [place] PATIENT MEDICARE (WNR) MEDICARE (M) PART B Oct 13, 2006 PART B [id number] [phone] NYDIA MALLORY PATIENT MEDICARE (WNR) MEDICARE (M) PART B Oct 13, 2006 PART B [id number] [phone] NYDIA MALLORY PATIENT MEDICARE (WNR) MEDICARE (M) PART A Sep 13, 2003 PART A [id number] NYDIA MALLORY PATIENT MEDICARE (WNR) MEDICARE (M) PART A Sep 13, 2003 PART A [id number] NYDIA MALLORY PATIENT MEDICARE (WNR) MEDICARE (M) PART A Sep 13, 2003 PART A [id number] NYDIA MALLORY PATIENT MEDICARE (WNR) MEDICARE (M) PART A Sep 13, 2003 PART A [id number] NYDIA MALLORY PATIENT Selected Encounter This section includes the information on record at [place] for the Encounter. Date/Time Encounter Type Encounter Description Reason Provider Source Jan 14, 2024 11:36 AM Outpatient Encounter [facility] ASSESSMENT BREE MONTILLA Encounter Template Text not used by [place] Plan of Treatment: Future Appointments (+ 6 months) and Future Tests (+/- 45 days) The Plan of Treatment section includes future care activities for the patient from all [place] treatmentfacilities. This section includes future appointments and future orders which are active, pending or scheduled. Future Appointments This section includes appointments that were scheduled to occur 6 months from the date of the Encounter, up to a maximum of 20 appointments. The data comes from all [place] treatment facilities. Appointment Date/Time Appointment Type Appointme nt Facility Name Jan 21, 2024 08:00 AM AMBULATORY - MEDICINE [place] [facility] Feb 03, 2024 01:30 PM AMBULATORY - REHAB MEDICIN E [place] [facility] [place] [facility] Mar 05, 2024 08:00 AM AMBULATORY - MEDICINE [place] C [facility] [facility] Mar 05, 2024 09:00 AM AMBULATORY - MEDICINE [place] C [facility] [facility] Mar 06, 2024 08:00 AM AMBULATORY - MEDICINE [place] [facility] [place] [facility] Mar 24, 2024 02:00 PM AMBULATORY - MEDICINE [place] [facility] [place] [facility] Mar 31, 2024 09:30 AM AMBULATORY - REHAB MEDICIN E [place] [facility] [place] [facility] Apr 13, 2024 01:30 PM AMBULATORY - MEDICINE [place] C [facility] [place] [facility] Apr 28, 2024 02:00 PM AMBULATORY - MEDICINE [place] C [facility] [place] [facility] May 05, 2024 02:00 PM AMBULATORY - REHAB MEDICIN E [place] [facility] [place] [facility] Jun 16, 2024 01:15 PM AMBULATORY - MEDICINE [place] C [facility] [facility] Social History: Smoking Status (Most current) and Tobacco Use (All prior to encounter date) This section includes the most current, and the historical, smoking and tobacco- related health factors from the [place] facility where the Encounter took place. Current Smoking Status This section includes the most current smoking, or tobacco-related health factor, from the [place] facility where the Encounter took place. Date/Time Current Smoking Status Comment Facil ity Oct 16, 2023 01:30 PM VA-TOBACCO FORMER USER [place] [facility] [place] [facility] Tobacco Use History This section includes a history of the smoking, or tobacco-related health factors, that were collected on or before the date of the Encounter. The data comes from the [place] facility where the Encounter took place. Date/Time Smoking Status/Tobacco Use Comment F acility Oct 16, 2023 01:30 PM VA-TOBACCO QUIT 15 YRS OR MORE [place] [facility] [place] [facility] Jul 04, 2022 11:00 AM VA-TOBACCO FORMER USER [place] [facility] [facility] Jul 04, 2022 11:00 AM VA-TOBACCO QUIT 15 YRS OR MORE [place] [facility] [place] [facility] Jun 28, 2021 10:30 AM VA-TOBACCO FORMER USER [place] [facility] [facility] Jun 28, 2021 10:30 AM VA-TOBACCO QUIT 15 YRS OR MORE [facility] [place] [facility] May 26, 2020 08:00 AM VA-TOBACCO FORMER USER [place] [facility] [facility] May 26, 2020 08:00 AM VA-TOBACCO QUIT [facility] May 23, 2018 11:21 AM VA-TOBACCO NEVER USED [facility] Advance Directives: All historical and current Section Date Range: From patient's date of to the date document was created. This section includes ALL of a patient's completed or amended [place] Advance and Rescinded Directives. The entries below indicate that a directive exists for the patient, but an actual copy is not included with this document. The data comes from all [place] facilities. Date Advance Directives Provider Source Feb 19, 2022 ADVANCE DIRECTIVE JOCE CASTORENA [facility] November 16, 2020 ADVANCE DIRECTIVE BYRON BARRON [facility] Encounter Notes: All associated encounter notes This section contains the clinical notes associated to the Encounter. Date/Time Encounter Note(s) Provider Source Jan 14, 2024 11:36 AM GERIATRIC MEDICINE NOTE: LOCAL TITLE: PERSONAL CARE SERVICES CASE MIX TOOL STANDARD TITLE: GERIATRIC MEDICINE NOTE DATE OF NOTE: JAN 14, 2024@11:36:53 ENTRY DATE: JAN 14, 2024@11:36:53 AUTHOR: BREE MONTILLA EXP COSIGNER: URGENCY: STATUS: COMPLETED HCBS Case Mix & Budget Tool (CASE MIX) Date Given: 01/14/2024 Clinician: Bree Montilla Location: [facility] [place] : Reed Mallory SSN: [id number] : [birth year] ([birth year]) Gender: Man Type of Evaluation: Initial Anticipated Start Date: 01/14/2024 Anticipated Length of Service: 12 months Case Mix Level: D ADL Category: Medium Questions and Answers: Q1. DRESSING *2 Need some help from another person to put your clothes on. Q2. GROOMING 0 Can comb your hair, wash your face, shave or brush your teeth without help of any kind. Q3. BATHING 3 Need and get help getting in and out of the tub. Q4. EATING 0 Can eat without help of any kind. Q5. BED MOBILITY 1 Need and get help sometimes to sit up. Q6. TRANSFERRING *2 Need one other person to help you. Q7. WALKING *2 Need and get help from one person to help you walk. Q8. BEHAVIOR 0 Behavior requires no intervention. Q9. COMMUNICATION 0 Understood. Q10. TOILETING *1 Need some help to get to and on the toilet but don't have accidents. Q11. 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 Q12. MDS 2.0/CPS: Short Term Memory (recall of what was learned or known) 0 Short-term memory okay- seems/appears to recall after 5 minutes Q13. SPECIAL TREATMENTS 0 No [place] Q14. CLINICAL MONITORING 0 Less than once a day Q15. SPECIAL NURSING No Q16. NEUROMUSCULAR DIAGNOSIS No COMMENTS SKIPPED SOURCES 2. 

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
--- OUTSIDE RECORDS SUMMARY | 2024-06-23 13:57 | XMS_ITS ---
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 Organization [place] Address [address] [place] [id number] Care Team Providers Care Fax Machine Repairer Name Role Phone JOSUE SIMMONS Primary Care [...] Dec 19, 2007 MEDICAR E SUPPLEM E [id number] [phone] NYDIA HUERTA UL PATIENT [employer] MEDICARE SUPPLEMEN YORDAN Dec 19, 2007 MEDICAR E SUPPLEM E [id number] [phone] NYDIA HUERTA UL PATIENT [employer] [place] MEDICARE SUPPLEMEN YORDAN BANKE RS Dec 19, 2007 NONE [id number] NYDIA HUERTA UL PATIENT MEDICARE (WNR) MEDICARE (M) PART B Oct 13, 2006 PART B [id number] NYDIA HUERTA UL PATIENT MEDICARE (WNR) MEDICARE (M) PART B Oct 13, 2006 PART B [id number] [phone] NYDIA HUERTA UL PATIENT MEDICARE (WNR) MEDICARE (M) PART B Oct 13, 2006 PART B [id number] NYDIA HUERTA PATIENT MEDICARE (WNR) MEDICARE (M) PART B Oct 13, 2006 PART B [id number] NYDIA HUERTA PATIENT MEDICARE (WNR) MEDICARE (M) PART A Sep 13, 2003 PART A [id number] NYDIA HUERTA PATIENT MEDICARE (WNR) MEDICARE (M) PART A Sep 13, 2003 PART A [id number] NYDIA HUERTA PATIENT MEDICARE (WNR) MEDICARE (M) PART A Sep 13, 2003 PART A [id number] NYDIA HUERTA PATIENT MEDICARE (WNR) MEDICARE (M) PART A Sep 13, 2003 PART A [id number] NYDIA HUERTA PATIENT Selected Encounter This section includes the information on record at [place] for the Encounter. Date/Time Encounter Type Encounter Description Reason Pro vider Source Jan 23, 2024 01:39 PM Outpatient Encounter PRIMARY CARE/MEDICINE IHE Encounter Template Text not used by [place] Plan of Treatment: Future Appointments (+ 6 months) and Future Tests (+/- 45 days) The Plan of Treatment section includes future care activities for the patient from all [place] treatmentfacilities. This section includes future appointments and future orders which are active, pending or scheduled. Future Appointments This section includes appointments that were scheduled to occur 6 months from the date of the Encounter, up to a maximum of 20 appointments. The data comes from all [place] treatment facilities. Appointment Date/Time Appointment Type Appointme nt Facility Name Feb 03, 2024 01:30 PM AMBULATORY - [facility]ICIN [facility] [place] [facility] Mar 05, 2024 08:00 AM AMBULATORY - MEDICINE [place] [facility] [facility] Mar 05, 2024 09:00 AM AMBULATORY - MEDICINE [place] [facility] [facility] Mar 06, 2024 08:00 AM AMBULATORY - MEDICINE [place] [facility] [facility] Mar 24, 2024 02:00 PM AMBULATORY - MEDICINE [place] [facility] [facility] Mar 31, 2024 09:30 AM AMBULATORY - REHAB MEDICIN E [facility] [place] [facility] Apr 13, 2024 01:30 PM AMBULATORY - MEDICINE [facility] [place] [facility] Apr 28, 2024 02:00 PM AMBULATORY - MEDICINE [facility] [place] [facility] May 05, 2024 02:00 PM AMBULATORY - REHAB MEDICIN E [facility] [place] [facility] Jun 16, 2024 01:15 PM AMBULATORY - MEDICINE [place] [facility] [facility] Social History: Smoking Status (Most current) and Tobacco Use (All prior to encounter date) This section includes the most current, and the historical, smoking and tobacco- related health factors from the [place] facility where the Encounter took place. Current Smoking Status This section includes the most current smoking, or tobacco-related health factor, from the [place] facility where the Encounter took place. Date/Time Current Smoking Status Comment Facil ity Oct 16, 2023 01:30 PM VA-TOBACCO FORMER USER [place] [facility] [place] [facility] Tobacco Use History This section includes a history of the smoking, or tobacco-related health factors, that were collected on or before the date of the Encounter. The data comes from the [place] facility where the Encounter took place. Date/Time Smoking Status/Tobacco Use Comment F acility Oct 16, 2023 01:30 PM VA-TOBACCO QUIT 15 YRS OR MORE [facility] [place] [facility] Jul 04, 2022 11:00 AM VA-TOBACCO FORMER USER [facility] [place] [facility] Jul 04, 2022 11:00 AM VA-TOBACCO QUIT 15 YRS OR MORE [facility] [place] [facility] Jun 28, 2021 10:30 AM VA-TOBACCO FORMER USER [facility] [place] [facility] Jun 28, 2021 10:30 AM VA-TOBACCO QUIT 15 YRS OR MORE [facility] [place] [facility] May 26, 2020 08:00 AM VA-TOBACCO FORMER USER [facility] [place] [facility] May 26, 2020 08:00 AM VA-TOBACCO QUIT 15 YRS OR MORE [facility] [place] [facility] May 23, 2018 11:21 AM VA-TOBACCO NEVER USED [facility] Advance Directives: All historical and current Section Date Range: From patient's date of to the date document was created. This section includes ALL of a patient's completed or amended [place] Advance and Rescinded Directives. The entries below indicate that a directive exists for the patient, but an actual copy is not included with this document. The data comes from all [place] facilities. Date Advance Directives Provider Source Feb 19, 2022 ADVANCE DIRECTIVE JOCE CASTORENA [facility] November 16, 2020 ADVANCE DIRECTIVE JOSUE SIMMONS [facility] Encounter Notes: All associated encounter notes This section contains the clinical notes associated to the Encounter. Date/Time Encounter Note(s) Provider Source Jan 23, 2024 01:39 PM NONVA CONSULT: LOCAL TITLE: MD/OUTSIDE CONSULT REPORT SUMMARY STANDARD TITLE: NONVA CONSULT DATE OF NOTE: JAN 23, 2024@13:39 ENTRY DATE: JAN 23, 2024@13:39:31 AUTHOR: JOSUE SIMMONS EXP COSIGNER: URGENCY: STATUS: COMPLETED 01-10-24 [facility] Emergency department Left ankle fracture Treated with splint and crutches Referred to orthopedics /es/ Josue Simmons MD Staff Physician Signed: 01/23/2024 13:39 JOSUE SIMMONS [facility]
--- OUTSIDE RECORDS SUMMARY | 2024-06-23 13:57 | XMS_ITS | Encounter Summary ---
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 Organization [place] Address [address] [place] [address] Care Team Providers Care Operating Room Rn Name Role Phone JOSUE SIMMONS Primary Care [...] Dec 19, 2007 MEDICAR E SUPPLEM E [id number] NYDIA HUERTA UL PATIENT [employer] MEDICARE SUPPLEMEN YORDAN Dec 19, 2007 MEDICAR E SUPPLEM E [id number] NYDIA HUERTA UL PATIENT [employer] [place] MEDICARE SUPPLEMEN YORDAN BANKE RS Dec 19, 2007 NONE [id number] [phone] NYDAI HUERTA UL PATIENT MEDICARE (WNR) MEDICARE (M) PART B Oct 13, 2006 PART B [id number] NYDIA HUERTA UL PATIENT MEDICARE (WNR) MEDICARE (M) PART B Oct 13, 2006 PART B [id number] NYDIA HUERTA PATIENT MEDICARE (WNR) MEDICARE (M) PART B Oct 13, 2006 PART B [id number] NYDIA HUERTA PATIENT MEDICARE (WNR) MEDICARE (M) PART B Oct 13, 2006 PART B [id number] [phone] NYDIA HUERTA PATIENT MEDICARE (WNR) MEDICARE (M) PART A Sep 13, 2003 PART A [id number] NYDIA HUERTA PATIENT MEDICARE (WNR) MEDICARE (M) PART A Sep 13, 2003 PART A [id number] [phone] NYDIA HUERTA PATIENT MEDICARE (WNR) MEDICARE (M) PART A Sep 13, 2003 PART A [id number] NYDIA HUERTA PATIENT MEDICARE (WNR) MEDICARE (M) PART A Sep 13, 2003 PART A [id number] [phone] NYDIA HUERTA PATIENT Selected Encounter This section includes the information on record at [place] for the Encounter. Date/Time Encounter Type Encounter Description Reason Pro vider Source Jan 13, 2024 02:45 PM Outpatient Encounter ADMIN PAT ACTIVTIES (MASNONCT) IHE [...] 21, 2024 08:00 AM AMBULATORY - MEDICINE [facility] [place] [facility] Feb 03, 2024 01:30 PM AMBULATORY - REHAB MEDICIN E [facility] [place] [place] [facility] Mar 05, 2024 08:00 AM AMBULATORY - MEDICINE [facility] [place] [facility] Mar 05, 2024 09:00 AM AMBULATORY - MEDICINE [facility] [place] [facility] Mar 06, 2024 08:00 AM AMBULATORY - MEDICINE [facility] [place] [facility] Mar 24, 2024 02:00 PM AMBULATORY - MEDICINE [facility] [place] [facility] Mar 31, 2024 09:30 AM AMBULATORY - REHAB MEDICIN E [facility] [place] [place] [facility] Apr 13, 2024 01:30 PM AMBULATORY - MEDICINE [facility] [place] [facility] Apr 28, 2024 02:00 PM AMBULATORY - MEDICINE [facility] [place] [facility] May 05, 2024 02:00 PM AMBULATORY - REHAB MEDICIN E [facility] [place] [facility] Jun 16, 2024 01:15 PM AMBULATORY - MEDICINE [place] [facility] [place] [facility] Social History: Smoking Status (Most current) [...] VA-TOBACCO FORMER USER [place] [facility] Tobacco Use History This section includes a history of the smoking, or tobacco-related health factors, that were collected on or before the date of the Encounter. The data comes from the [place] facility where the Encounter took place. Date/Time Smoking Status/Tobacco Use Comment F acility Oct 16, 2023 01:30 PM VA-TOBACCO QUIT 15 YRS OR MORE [facility] [place] [place] [facility] Jul 04, 2022 11:00 AM VA-TOBACCO FORMER USER [facility] [place] [facility] Jul 04, 2022 11:00 AM VA-TOBACCO QUIT 15 YRS OR MORE [facility] [place] [facility] Jun 28, 2021 10:30 AM VA-TOBACCO FORMER USER [facility] [place] [facility] Jun 28, 2021 10:30 AM VA-TOBACCO QUIT 15 YRS OR MORE [facility] [place] [facility] May 26, 2020 08:00 AM VA-TOBACCO FORMER USER [facility] [place] [facility] May 26, 2020 08:00 AM [place]-TOBACCO QUIT 15 YRS OR MORE [facility] May 23, 2018 11:21 AM VA-TOBACCO NEVER USED [facility] Advance Directives: All historical and current [...] Feb 19, 2022 ADVANCE DIRECTIVE JOCE CASTORENA [facility] November 16, 2020 ADVANCE DIRECTIVE JOSUE SIMMONS [facility] Encounter Notes: All associated encounter notes This section contains the clinical notes associated to the Encounter. Date/Time Encounter Note(s) Provider Source Jan 13, 2024 03:25 PM ADDENDUM: LOCAL TITLE: Addendum STANDARD TITLE: ADDENDUM DATE OF NOTE: JAN 13, 2024@15:25:52 ENTRY DATE: JAN 13, 2024@15:25:52 AUTHOR: STEPHANIE BANKS COSIGNER: URGENCY: STATUS: COMPLETED you last saw him in October. Can he be cleared by phone or do you need appt? /eleanor/ Stephanie Banks RN, BSN Primary Care Signed: 01/13/2024 15:26 Receipt Acknowledged By: 01/13/2024 16:04 /eleanor/ Josue Simmons MD Staff Physician === --- Original Document --- 01/13/24 CCC: SCHEDULING ADMINISTRATION: Patient Demographics Patient Name: ALYCIA HUERTA Patient Primary Phone: [phone] Patient Primary Address: [address] [place] [id number] Patient : 1940 Patient Age: 83 Caller/Recipient Relation to Patient: Self Administrative Administrative Note Reason: Outside Care Performed Administrative Note Comments: Received a call from Brigitte with [employer]. States was seen today in their office after had an injury over the weekend. is scheduled for left ankle surgery for a left ankle fracture next week on 01/20. needs clearance from PACT prior as soon as possible. EKG and labs were completed in the office today, so no need for EKG and Labs but will need clearance from PCP. Please contact Brigitte with questions [phone] (direct line ok to [facility]) . /es/ SAROJ WEINER 1 [facility] AMSA Signed: 01/13/2024 14:46 Receipt Acknowledged By: 01/13/2024 15:24 /es/ Stephanie Banks RN, BSN Primary Care * AWAITING SIGNATURE * COBY MAHER JANE A [place] [facility] Jan 13, 2024 02:45 PM ADMINISTRATIVE NOTE: LOCAL TITLE: CCC: SCHEDULING ADMINISTRATION STANDARD TITLE: ADMINISTRATIVE NOTE DATE OF NOTE: JAN 13, 2024@14:45:52 ENTRY DATE: JAN 13, 2024@14:45:53 AUTHOR: SAROJ NELSON EXP COSIGNER: URGENCY: STATUS: COMPLETED CCC: SCHEDULING ADMINISTRATION Has ADDENDA Patient Demographics Patient Name: ALYCIA HUERTA Patient Primary Phone: [phone] Patient Primary Address: [address] [place] [id number] Patient : 1940 Patient Age: 83 Caller/Recipient Relation to Patient: Self Administrative Administrative Note Reason: Outside Care Performed Administrative Note Comments: Received a call from Brigitte with [employer]. States was seen today in their office after had an injury over the weekend. [place]o is scheduled for left ankle surgery for a left ankle fracture next week on 01/20. [place] needs clearance from PACT prior as soon as possible. EKG and labs were completed in the office today, so no need for EKG and Labs but will need clearance from PCP. Please contact Brigitte with questions [phone] (direct line ok to [facility]) . /es/ SAROJ NELSON VISN 1 [facility] AMSA Signed: 01/13/2024 14:46 Receipt Acknowledged By: 01/13/2024 15:24 /es/ Stephanie Banks RN, BSN Primary Care 01/14/2024 09:25 /es/ COBY MAHER LPN ANALYTICAL RESEARCH PROGRAM MANAGER 01/13/2024 ADDENDUM STATUS: COMPLETED you last saw him in October. Can he be cleared by phone or do you need appt? /es/ Stephanie Banks RN, BSN Primary Care Signed: 01/13/2024 15:26 Receipt Acknowledged By: 01/13/2024 16:04 /es/ Josue Simmons MD Staff Physician [facility]
--- OUTSIDE RECORDS SUMMARY | 2024-06-23 13:58 | XMS_ITS ---
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 Address [address] [place] [address] Care Team Providers Care Sales Agent Pest Control Service Name Role Phone JOSUE SIMMONS Primary Care [...] Dec 19, 2007 MEDICAR E SUPPLEM E [id number] [phone] NYDIA HUERTA UL PATIENT [employer] MEDICARE SUPPLEMEN YORDAN Dec 19, 2007 MEDICAR E SUPPLEM E [id number] [phone] NYDIA HUERTA UL PATIENT [employer] [place] MEDICARE SUPPLEMEN YORDAN BANKE RS Dec 19, 2007 NONE [id number] [phone] NYDIA HUERTA UL PATIENT MEDICARE (WNR) MEDICARE (M) PART B Oct 13, 2006 PART B [id number] [facility] NYDIA HUERTA UL PATIENT MEDICARE (WNR) MEDICARE (M) PART B Oct 13, 2006 PART B [id number] [facility] [phone] NYDIA HUERTA UL PATIENT MEDICARE (WNR) MEDICARE (M) PART B Oct 13, 2006 PART B [id number] NYDIA HUERTA PATIENT MEDICARE (WNR) MEDICARE (M) PART B Oct 13, 2006 PART B [id number] NYDIA HUERTA PATIENT MEDICARE (WNR) MEDICARE (M) PART A Sep 13, 2003 PART A [id number] NYDIA HUERTA PATIENT MEDICARE (WNR) MEDICARE (M) PART A Sep 13, 2003 PART A [id number] NYDIA HUERTA PATIENT MEDICARE (WNR) MEDICARE (M) PART A Sep 13, 2003 PART A [id number] NYDIA HUERTA PATIENT MEDICARE (WNR) MEDICARE (M) PART A Sep 13, 2003 PART A [id number] NYDIA HUERTA PATIENT Selected Encounter This section includes the information on record at [place] for the Encounter. Date/Time Encounter Type Encounter Description Reason Pro vider Source Feb 11, 2024 04:19 PM Outpatient Encounter COMMUNITY CARE CONSULT IHE Encounter Template Text not used by [place] Plan of Treatment: Future Appointments (+ 6 months) and Future Tests (+/- 45 days) The Plan of Treatment section includes future care activities for the patient from all [place] treatmentfacilities. This section includes future appointments and future orders which are active, pending or scheduled. Future Appointments This section includes appointments that were scheduled to occur 6 months from the date of the Encounter, up to a maximum of 20 appointments. The data comes from all [place] treatment facilities. Appointment Date/Time Appointment Type Appointme nt Facility Name Mar 05, 2024 08:00 AM AMBULATORY - MEDICINE [place] [facility] Mar 05, 2024 09:00 AM AMBULATORY - MEDICINE [place] [facility] Mar 06, 2024 08:00 AM AMBULATORY - MEDICINE [place] [facility] Mar 24, 2024 02:00 PM AMBULATORY - MEDICINE [place] [facility] Mar 31, 2024 09:30 AM AMBULATORY - REHAB MEDICIN E [place] [facility] [place] [facility] Apr 13, 2024 01:30 PM AMBULATORY - MEDICINE [facility] [place] [facility] Apr 28, 2024 02:00 PM AMBULATORY - MEDICINE [place] [facility] [place] [facility] May 05, 2024 02:00 PM AMBULATORY - REHAB MEDICIN E [facility] [place] [facility] Jun 16, 2024 01:15 PM AMBULATORY - MEDICINE [place] [facility] Social History: Smoking Status (Most current) and Tobacco Use (All prior to encounter date) This section includes the most current, and the historical, smoking and tobacco- related health factors from the [place] facility where the Encounter took place. Current Smoking Status This section includes the most current smoking, or tobacco-related health factor, from the [place] facility where the Encounter took place. Date/Time Current Smoking Status Comment Facil ity Oct 16, 2023 01:30 PM VA-TOBACCO FORMER USER [place] [facility] Tobacco Use History This section includes a history of the smoking, or tobacco-related health factors, that were collected on or before the date of the Encounter. The data comes from the [place] facility where the Encounter took place. Date/Time Smoking Status/Tobacco Use Comment F acility Oct 16, 2023 01:30 PM VA-TOBACCO QUIT 15 YRS OR MORE [facility] [place] [facility] Jul 04, 2022 11:00 AM VA-TOBACCO FORMER USER [facility] [place] [facility] Jul 04, 2022 11:00 AM VA-TOBACCO QUIT 15 YRS OR MORE [facility] [place] [facility] Jun 28, 2021 10:30 AM VA-TOBACCO FORMER USER [facility] [place] [facility] Jun 28, 2021 10:30 AM VA-TOBACCO QUIT 15 YRS OR MORE [facility] [place] [facility] May 26, 2020 08:00 AM VA-TOBACCO FORMER USER [facility] [place] [facility] May 26, 2020 08:00 AM VA-TOBACCO QUIT 15 YRS OR MORE [facility] [place] [facility] May 23, 2018 11:21 AM VA-TOBACCO NEVER USED [facility] [place] [facility] Advance Directives: All historical and current Section Date Range: From patient's date of to the date document was created. This section includes ALL of a patient's completed or amended [place] Advance and Rescinded Directives. The entries below indicate that a directive exists for the patient, but an actual copy is not included with this document. The data comes from all [place] facilities. Date Advance Directives Provider Source Feb 19, 2022 ADVANCE DIRECTIVE JOCE CASTORENA [facility] November 16, 2020 ADVANCE DIRECTIVE JOSUE SIMMONS [facility] Encounter Notes: All associated encounter notes This section contains the clinical notes associated to the Encounter. Date/Time Encounter Note(s) Provider Source Feb 11, 2024 04:19 PM NONVA NOTE: [facility] TITLE: [facility] CARE COORD PLAN STANDARD TITLE: NONVA NOTE DATE OF NOTE: FEB 11, 2024@16:19 ENTRY DATE: FEB 11, 2024@16:19:15 AUTHOR: MEL FERNANDEZ EXP COSIGNER: URGENCY: STATUS: COMPLETED Emergency Notification Intake Date Presenting to the Facility: Dec Method of Contact: Notified from ECR worklist Notification ID: [id number] [facility] Referral #: [id number] [facility] Name: Hospital: [facility] Address: City: [place] State: [place] Zip Code: Phone : [facility] Facility Point of Contact: Name: Nicole Phone: Chief complaint: L ANKLE INJURY Primary Diagnosis: Disposition Discharged Date of discharge: Dec Discharge to Comment: ER Only /eleanor/ MEL FERNANDEZ AMSA Signed: 02/11/2024 16:22 Receipt Acknowledged By: 02/12/2024 08:41 /es/ Stephanie Banks RN, BSN Primary Care 02/11/2024 16:28 /es/ Josue Simmons MD Staff Physician 02/11/2024 17:07 /es/ Cora WAN,RN,[facility] TRANSFER/TRAVELING COORDINATOR MEL FERNANDEZ [facility]
--- OUTSIDE RECORDS SUMMARY | 2024-06-23 13:58 | XMS_ITS | Encounter Summary ---
Author Name [facility] [place] Address [address] [place] [address] Care Team Providers Care Manager Residential Name Role Phone BYRON BARRON Primary Care [...] Dec 19, 2007 MEDICAR E SUPPLEM E [id number] NYDIA HUERTA UL PATIENT [employer] MEDICARE SUPPLEMEN YORDAN Dec 19, 2007 MEDICAR E SUPPLEM E [id number] [phone] NYDIA HUERTA UL PATIENT [employer] [place] MEDICARE SUPPLEMEN YORDAN BANKE RS Dec 19, 2007 NONE [id number] [phone] NYDIA HUERTA UL PATIENT MEDICARE (WNR) MEDICARE (M) PART B Oct 13, 2006 PART B [id number] NYDIA HUERTA UL PATIENT MEDICARE (WNR) MEDICARE (M) PART B Oct 13, 2006 PART B [id number] NYDIA HUERTA UL PATIENT MEDICARE (WNR) MEDICARE (M) PART B Oct 13, 2006 PART B [id number] [phone] NYDIA HUERTA UL PATIENT MEDICARE (WNR) MEDICARE (M) PART B Oct 13, 2006 PART B [id number] NYDIA HUERTA UL PATIENT MEDICARE (WNR) MEDICARE (M) PART A Sep 13, 2003 PART A [id number] [phone] NYDIA HUERTA UL PATIENT MEDICARE (WNR) MEDICARE (M) PART A Sep 13, 2003 PART A [id number] NYDIA HUERTA UL PATIENT MEDICARE (WNR) MEDICARE (M) PART A Sep 13, 2003 PART A [id number] [phone] NYDIA HUERTA UL PATIENT MEDICARE (WNR) MEDICARE (M) PART A Sep 13, 2003 PART A [id number] NYDIA HUERTA PATIENT Selected Encounter This section includes the information on record at [place] for the Encounter. Date/Time Encounter Type Encounter Description Reason Provider Source Feb 03, 2024 01:30 PM ORTHC/PROSTC MGMT SBSQ ENC PHYSICAL THERAPY ICD-10-CM M84.472A Pathological fracture, left ankle, init encntr for fracture ROHAN HAMPTON IN IHE Encounter Template Text not used by [place] Assessments - Encounter Diagnoses This section includes the primary and secondary diagnoses documented for the Encounter. Date/Time Primary/Secondary Diagnosis Diagnosis Name Provider Source Mar 03, 2024 03:06 PM PRIMARY Pathological fracture, left ankle, init encntr for fracture [place]OHAN [place] [facility] Plan of Treatment: Future Appointments (+ 6 [...] 05, 2024 08:00 AM AMBULATORY - MEDICINE [place] [facility] [place] [facility] Mar 05, 2024 09:00 AM AMBULATORY - MEDICINE [facility] [place] [facility] Mar 06, 2024 08:00 AM AMBULATORY - MEDICINE [facility] [place] [place] [facility] Mar 24, 2024 02:00 PM AMBULATORY - MEDICINE [facility] [place] [facility] Mar 31, 2024 09:30 AM AMBULATORY - REHAB MEDICIN E [facility] [place] [facility] Apr 13, 2024 01:30 PM AMBULATORY - MEDICINE [facility] [place] [facility] Apr 28, 2024 02:00 PM AMBULATORY - MEDICINE [facility] [place] [facility] May 05, 2024 02:00 PM AMBULATORY - REHAB MEDICIN E [place] [facility] [place] [facility] Jun 16, 2024 01:15 PM AMBULATORY - MEDICINE [place] [facility] Social History: Smoking Status (Most current) [...] place. Date/Time Current Smoking Status Comment Facil viktoria Oct 16, 2023 01:30 PM VA-TOBACCO FORMER USER [place] [facility] Tobacco Use History This section includes a history of the smoking, or tobacco-related health factors, that were collected on or before the date of the Encounter. The data comes from the [place] facility where the Encounter took place. Date/Time Smoking Status/Tobacco Use Comment F acgary Oct 16, 2023 01:30 PM VA-TOBACCO QUIT 15 YRS OR MORE [facility] [place] [place] [facility] Jul 04, 2022 11:00 AM VA-TOBACCO FORMER USER [facility] [place] [facility] Jul 04, 2022 11:00 AM VA-TOBACCO QUIT 15 YRS OR MORE [facility] [place] [facility] Jun 28, 2021 10:30 AM VA-TOBACCO FORMER USER [facility] [place] [facility] Jun 28, 2021 10:30 AM VA-TOBACCO QUIT 15 YRS OR MORE [place] [facility] [place] [facility] May 26, 2020 08:00 AM VA-TOBACCO FORMER USER [place] [place] [facility] May 26, 2020 08:00 AM VA-TOBACCO QUIT 15 YRS OR MORE [place] [facility] [place] [facility] May 23, 2018 11:21 AM VA-TOBACCO NEVER USED [facility] Advance Directives: All historical and current [...] Feb 19, 2022 ADVANCE DIRECTIVE JOCE CASTORENA [facility] November 16, [address] [facility] Encounter Notes: All associated encounter notes This section contains the clinical notes associated to the Encounter. Date/Time Encounter Note(s) Provider Source Feb 03, 2024 01:46 PM PHYSICAL THERAPY C ONSULT: LOCAL TITLE: PHYSICAL THERAPY CONSULT STANDARD TITLE: PHYSICAL THERAPY CONSULT DATE OF NOTE: FEB 03, 2024@13:46 ENTRY DATE: FEB 03, 2024@13:46:17 AUTHOR: GERALDINE HAMPTON COSIGNER: URGENCY: STATUS: COMPLETED Initial Evaluation date: Jan Progress Note Date: Treatment #: 0 Treatment time: 23 mins Diagnosis: Pathological Fracture, left Ankle, Initial Encounter for Fracture(ICD-10-CM M84.472A) Provider: PT Treatment Precautions: Patient identified by full name and date of PROSTHETIC CHECKOUT-Physical Therapy Pt was issued a front wheeled walker and Aircast walking boot on this date, was provided education regarding use and care of the walker, the walking boot will be needed when his cast comes off in 4 weeks. (x) Pt is I and safe with use of equipment () Pt requires assistance: (x) Pt was educated to use, care, and safety of the equipment and demonstrated/verbalized understanding of same. (x) Pt was issued manual or written instructions. (x) Suggested pt call this therapist with any questions. (x) Goal of safe use of equipment met. No further services provided at this time. () Other: pt to be phoned when walker is available /eleanor/ CHUN BETANCOURT LICENSE WADER BOOT TOP ASSEMBLER Signed: 02/03/2024 13:54 GERALDINE HAMPTON [facility]
--- OUTSIDE RECORDS SUMMARY | 2024-06-23 13:58 | XMS_ITS | Encounter Summary ---
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 Address [address] [place] [address] Care Team Providers Care Inspector Aide Name Role Phone BYRON BARRON Primary Care [...] Dec 19, 2007 MEDICAR E SUPPLEM E [id number] [phone] NYDIA HUERTA UL PATIENT [employer] MEDICARE SUPPLEMEN YORDAN Dec 19, 2007 MEDICAR E SUPPLEM E [id number] [phone] NYDIA HUERTA UL PATIENT [employer] [place] MEDICARE SUPPLEMEN YORDAN BANKE RS Dec 19, 2007 NONE [id number] NDYIA HUERTA UL PATIENT MEDICARE (WNR) MEDICARE (M) PART B Oct 13, 2006 PART B [id number] [facility] [phone] NYDIA HUERTA UL PATIENT MEDICARE (WNR) MEDICARE (M) PART B Oct 13, 2006 PART B [id number] [facility] NYDIA HUERTA UL PATIENT MEDICARE (WNR) MEDICARE (M) PART B Oct 13, 2006 PART B [id number] NYDIA HUERTA PATIENT MEDICARE (WNR) MEDICARE (M) PART B Oct 13, 2006 PART B [id number] [phone] NYDIA HUERTA PATIENT MEDICARE (WNR) MEDICARE (M) PART A Sep 13, 2003 PART A [id number] NYDIA HUERTA PATIENT MEDICARE (WNR) MEDICARE (M) PART A Sep 13, 2003 PART A [id number] NYDIA HUERTA PATIENT MEDICARE (WNR) MEDICARE (M) PART A Sep 13, 2003 PART A [id number] [phone] NYDIA HUERTA PATIENT MEDICARE (WNR) MEDICARE (M) PART A Sep 13, 2003 PART A [id number] NYDIA HUERTA PATIENT Selected Encounter This section includes the information on record at [place] for the Encounter. Date/Time Encounter Type Encounter Description Reason Pro vider Source Jan 20, 2024 12:00 AM Outpatient Encounter COMMUNITY CARE CONSULT IHE Encounter Template Text not used by [place] Plan of Treatment: Future Appointments (+ 6 months) and Future Tests (+/- 45 days) The Plan of Treatment section includes future care activities for the patient from all [place] treatmentfacilities. This section includes future appointments and future orders which are active, pending or scheduled. Future Appointments This section includes appointments that were scheduled to occur 6 months from the date of the Encounter, up to a maximum of 20 appointments. The data comes from all [place] treatment facilities. Appointment Date/Time Appointment Type Appointme nt Facility Name Jan 21, 2024 08:00 AM AMBULATORY - MEDICINE [place] [facility] [place] [place] [facility] Feb 03, 2024 01:30 PM AMBULATORY - REHAB MEDICIN E [place] [facility] [place] [facility] Mar 05, 2024 08:00 AM AMBULATORY - MEDICINE [place] [facility] [place] [place] [facility] Mar 05, 2024 09:00 AM AMBULATORY - MEDICINE [place] [facility] [place] [place] [facility] Mar 06, 2024 08:00 AM AMBULATORY - MEDICINE [place] [facility] [place] [facility] Mar 24, 2024 02:00 PM AMBULATORY - MEDICINE [place] [facility] [place] [place] [facility] Mar 31, 2024 09:30 AM AMBULATORY - REHAB MEDICIN E [facility] [place] [facility] Apr 13, 2024 01:30 PM AMBULATORY - MEDICINE [place] [facility] [place] [place] [facility] Apr 28, 2024 02:00 PM AMBULATORY - MEDICINE [place] [facility] [place] [facility] May 05, 2024 02:00 PM AMBULATORY - REHAB MEDICIN E [facility] [place] [facility] Jun 16, 2024 01:15 PM AMBULATORY - MEDICINE [facility] [place] [facility] Social History: Smoking Status (Most current) and Tobacco Use (All prior to encounter date) This section includes the most current, and the historical, smoking and tobacco- related health factors from the [place] facility where the Encounter took place. Current Smoking Status This section includes the most current smoking, or tobacco-related health factor, from the [place] facility where the Encounter took place. Date/Time Current Smoking Status Comment Facil ity Oct 16, 2023 01:30 PM VA-TOBACCO FORMER USER [place] [facility] [place] [facility] Tobacco Use History This section includes a history of the smoking, or tobacco-related health factors, that were collected on or before the date of the Encounter. The data comes from the [place] facility where the Encounter took place. Date/Time Smoking Status/Tobacco Use Comment F acility Oct 16, 2023 01:30 PM VA-TOBACCO QUIT 15 YRS OR MORE VA [facility] [place] [facility] Jul 04, 2022 11:00 AM VA-TOBACCO FORMER USER VA [facility] [place] [facility] Jul 04, 2022 11:00 AM VA-TOBACCO QUIT 15 YRS OR MORE [facility] [place] [place] [facility] Jun 28, 2021 10:30 AM VA-TOBACCO FORMER USER VA [facility] [place] [facility] Jun 28, 2021 10:30 AM VA-TOBACCO QUIT 15 YRS OR MORE [facility] [place] [facility] May 26, 2020 08:00 AM VA-TOBACCO FORMER USER [facility] [place] [facility] May 26, 2020 08:00 AM [facility] May 23, 2018 11:21 AM PA-TOBACCO NEVER USED [facility] Advance Directives: All historical and current Section Date Range: From patient's date of to the date document was created. This section includes ALL of a patient's completed or amended [place] Advance and Rescinded Directives. The entries below indicate that a directive exists for the patient, but an actual copy is not included with this document. The data comes from all [place] facilities. Date Advance Directives Provider Source Feb 19, 2022 ADVANCE DIRECTIVE JOCE CASTORENA [facility] November 16, 2020 ADVANCE DIRECTIVE BYRON BARRON [facility] Encounter Notes: All associated encounter notes This section contains the clinical notes associated to the Encounter. Date/Time Encounter Note(s) Provider Source Jan 20, 2024 12:00 AM NONVA CONSULT: LOCAL TITLE: COMMUNITY CARE-CONSULT RESULT NOTE STANDARD TITLE: NONVA CONSULT DATE OF NOTE: JAN 20, 2024 ENTRY DATE: FEB 03, 2024@12:54:02 AUTHOR: SHANNON PATTERSON EXP COSIGNER: URGENCY: STATUS: COMPLETED VistA Imaging - Scanned Document SCANNED DOCUMENT SIGNATURE NOT REQUIRED Electronically Filed: 02/03/2024 by: SHANNON GARDUNO [facility]
--- OUTSIDE RECORDS SUMMARY | 2024-06-23 13:58 | XMS_ITS | Encounter Summary ---
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 Address [address] [place] [address] Care Team Providers Care Plant Wire Chief Name Role Phone BYRON BARRON Primary Care [...] Dec 19, 2007 MEDICAR E SUPPLEM E [id number] [phone] NYDIA HUERTA UL PATIENT [employer] MEDICARE SUPPLEMEN YORDAN Dec 19, 2007 MEDICAR E SUPPLEM E [id number] [phone] NYDIA HUERTA UL PATIENT [employer] CO MEDICARE SUPPLEMEN YORDAN BANKE RS Dec 19, 2007 NONE [id number] NYDIA HUERTA UL PATIENT MEDICARE (WNR) MEDICARE (M) PART B Oct 13, 2006 PART B [id number] NYDIA HUERTA UL PATIENT MEDICARE (WNR) MEDICARE (M) PART B Oct 13, 2006 PART B [id number] [place] UL PATIENT MEDICARE (WNR) MEDICARE (M) PART B Oct 13, 2006 PART B [id number] NYDIA HUERTA PATIENT MEDICARE (WNR) MEDICARE (M) PART B Oct 13, 2006 PART B [id number] NYDIA HUERTA PATIENT MEDICARE (WNR) MEDICARE (M) PART A Sep 13, 2003 PART A [id number] NYDIA HUERTA PATIENT MEDICARE (WNR) MEDICARE (M) PART A Sep 13, 2003 PART A [id number] [phone] NYDIA HUERTA PATIENT MEDICARE (WNR) MEDICARE (M) PART A Sep 13, 2003 PART A [id number] NYDIA HUERTA PATIENT MEDICARE (WNR) MEDICARE (M) PART A Sep 13, 2003 PART A [id number] [phone] NYDIA HUERTA PATIENT Selected Encounter This section includes the information on record at [place] for the Encounter. Date/Time Encounter Type Encounter Description Reason Pro vider Source Jan 10, 2024 12:00 AM Outpatient Encounter EVENT (HISTORICAL) IHE Encounter Template Text not used by [...] - MEDICINE [place] [facility] [place] [facility] Jan 21, 2024 08:00 AM AMBULATORY - MEDICINE [place] [facility] [place] [facility] Feb 03, 2024 01:30 PM AMBULATORY - REHAB MEDICIN E [facility] [place] [facility] Mar 05, 2024 08:00 AM AMBULATORY - MEDICINE [place] [facility] [place] [facility] Mar 05, 2024 09:00 AM AMBULATORY - MEDICINE [place] [facility] [place] [facility] Mar 06, 2024 08:00 AM AMBULATORY - MEDICINE [facility] [place] [facility] Mar 24, 2024 02:00 PM AMBULATORY - MEDICINE [place] [facility] [place] [facility] Mar 31, 2024 09:30 AM AMBULATORY - REHAB MEDICIN E [facility] [place] [place] [facility] Apr 13, 2024 01:30 PM AMBULATORY - MEDICINE [place] [facility] [place] [facility] Apr 28, 2024 02:00 PM AMBULATORY - MEDICINE [place] [facility] [place] [facility] May 05, 2024 02:00 PM AMBULATORY - REHAB MEDICIN E [facility] [place] [place] [facility] Jun 16, 2024 01:15 PM AMBULATORY - MEDICINE [place] [facility] [place] [facility] Social History: Smoking Status (Most current) [...] VA-TOBACCO FORMER USER [place] [facility] [place] [facility] Tobacco Use History This section includes a history of the smoking, or tobacco-related health factors, that were collected on or before the date of the Encounter. The data comes from the [place] facility where the Encounter took place. Date/Time Smoking Status/Tobacco Use Comment F acility Oct 16, 2023 01:30 PM VA-TOBACCO QUIT 15 YRS OR MORE [facility] [place] [facility] Jul 04, 2022 11:00 AM VA-TOBACCO FORMER USER VA [facility] [place] [facility] Jul 04, 2022 11:00 AM VA-TOBACCO QUIT 15 YRS OR MORE [facility] [place] [place] [facility] Jun 28, 2021 10:30 AM VA-TOBACCO FORMER USER [facility] [place] [facility] Jun 28, 2021 10:30 AM VA-TOBACCO QUIT 15 YRS OR MORE [facility] [place] [facility] May 26, 2020 08:00 AM VA-TOBACCO FORMER USER [facility] [place] [facility] May 26, 2020 08:00 AM VA-TOBACCO QUIT 15 YRS OR MORE [facility] May 23, 2018 11:21 AM [facility]-TOBACCO [facility]ED [facility] Advance Directives: All historical and current [...] Feb 19, 2022 ADVANCE DIRECTIVE JOCE CASTORENA [facility] November 16, 2020 ADVANCE DIRECTIVE BYRON BARRON [facility] Encounter Notes: All associated encounter notes This section contains the clinical notes associated to the Encounter. Date/Time Encounter Note(s) Provider Source Jan 10, 2024 12:00 AM NONVA NOTE: LOCAL TITLE: NON-VA HOSPITALIZATIONS/ER STANDARD TITLE: NONVA NOTE DATE OF NOTE: JAN 10, 2024 ENTRY DATE: JAN 29, 2024@14:48:20 AUTHOR: RAHUL TORREZ EXP COSIGNER: URGENCY: STATUS: COMPLETED VistA Imaging - Scanned Document SCANNED DOCUMENT SIGNATURE NOT REQUIRED Electronically Filed: 01/29/2024 by: RAHUL TORREZ LICENSED PRACTICAL NURSE RAHUL TORREZ [employer]
--- OUTSIDE RECORDS SUMMARY | 2024-06-23 13:59 | XMS_ITS | Encounter Summary ---
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 Address [address] [place] [address] Care Team Providers Care Physical Laboratory Assistant Name Role Phone BYRON BARRON Primary [...] Dec 19, 2007 MEDICAR E SUPPLEM E [id number] [phone] NYDIA HUERTA UL PATIENT [employer] MEDICARE SUPPLEMEN YORDAN Dec 19, 2007 MEDICAR E SUPPLEM E [id number] NYDIA HUERTA UL PATIENT [employer] CO MEDICARE SUPPLEMEN YORDAN BANKE RS Dec 19, 2007 NONE [id number] [phone] NYDIA HUERTA UL PATIENT MEDICARE (WNR) MEDICARE (M) PART B Oct 13, 2006 PART B [id number] NYDIA HUERTA UL PATIENT MEDICARE (WNR) MEDICARE (M) PART B Oct 13, 2006 PART B [id number] [phone] [place] PATIENT MEDICARE (WNR) MEDICARE (M) PART B Oct 13, 2006 PART B [id number] NYDIA HUERTA PATIENT MEDICARE (WNR) MEDICARE (M) PART B Oct 13, 2006 PART B [id number] NYDIA HUERTA PATIENT MEDICARE (WNR) MEDICARE (M) PART A Sep 13, 2003 PART A [id number] NYDIA HUERTA PATIENT MEDICARE (WNR) MEDICARE (M) PART A Sep 13, 2003 PART A [id number] [phone] NYDIA HUERTA PATIENT MEDICARE (WNR) MEDICARE (M) PART A Sep 13, 2003 PART A [id number] NYDIA HUERTA PATIENT MEDICARE (WNR) MEDICARE (M) PART A Sep 13, 2003 PART A [id number] [phone] NYDIA HUERTA PATIENT Selected Encounter This section includes the information on record at [place] for the Encounter. Date/Time Encounter Type Encounter Description Reason Provider Source Feb 03, 2024 10:11 AM Outpatient Encounter PROSTHETICS/ORTHOTI BYRON BHATIA Aranza Encounter Template Text not used by [place] Plan of Treatment: Future Appointments (+ 6 months) and Future Tests (+/- 45 days) The Plan of Treatment section includes future care activities for the patient from all [place] treatmentfacilities. This section includes future appointments and future orders which are active, pending or scheduled. Future Appointments This section includes appointments that were scheduled to occur 6 months from the date of the Encounter, up to a maximum of 20 appointments. The data comes from all [place] treatment facilities. Appointment Date/Time Appointment Type Appointme nt Facility Name Mar 05, 2024 08:00 AM AMBULATORY - MEDICINE [facility] [place] [facility] Mar 05, 2024 09:00 AM AMBULATORY - MEDICINE [facility] [place] [facility] Mar 06, 2024 08:00 AM AMBULATORY - MEDICINE [facility] [place] [facility] Mar 24, 2024 02:00 PM AMBULATORY - MEDICINE [facility] [place] [facility] Mar 31, 2024 09:30 AM AMBULATORY - REHAB MEDICIN E [facility] [place] [place] [facility] Apr 13, 2024 01:30 PM AMBULATORY - MEDICINE [place] C [facility] [place] [facility] Apr 28, 2024 02:00 PM AMBULATORY - MEDICINE [place] [facility] [place] [facility] May 05, 2024 02:00 PM AMBULATORY - REHAB MEDICIN E [facility] [place] [facility] Jun 16, 2024 01:15 PM AMBULATORY - MEDICINE [place] C [facility] [place] [facility] Social History: Smoking Status (Most current) and Tobacco Use (All prior to encounter date) This section includes the most current, and the historical, smoking and tobacco- related health factors from the [place] facility where the Encounter took place. Current Smoking Status This section includes the most current smoking, or tobacco-related health factor, from the [place] facility where the Encounter took place. Date/Time Current Smoking Status Comment Facil ity Oct 16, 2023 01:30 PM VA-TOBACCO FORMER USER [facility] [place] [facility] Tobacco Use History This section includes a history of the smoking, or tobacco-related health factors, that were collected on or before the date of the Encounter. The data comes from the [place] facility where the Encounter took place. Date/Time Smoking Status/Tobacco Use Comment F acility Oct 16, 2023 01:30 PM VA-TOBACCO QUIT 15 YRS OR MORE [facility] [place] [place] [facility] Jul 04, 2022 11:00 AM VA-TOBACCO FORMER USER [facility] [place] [facility] Jul 04, 2022 11:00 AM VA-TOBACCO QUIT 15 YRS OR MORE [facility] [place] [facility] Jun 28, 2021 10:30 AM VA-TOBACCO FORMER USER [facility] [place] [facility] Jun 28, 2021 10:30 AM VA-TOBACCO QUIT 15 YRS OR MORE [facility] [place] [facility] May 26, 2020 08:00 AM VA-TOBACCO FORMER USER [facility] [place] [facility] May 26, 2020 08:00 AM VA-TOBACCO QUIT 15 YRS OR MORE [facility] [place] [facility] May 23, 2018 11:21 AM VA-TOBACCO NEVER USED [facility] [place] [facility] Advance Directives: All historical and current Section Date Range: From patient's date of to the date document was created. This section includes ALL of a patient's completed or amended [place] Advance and Rescinded Directives. The entries below indicate that a directive exists for the patient, but an actual copy is not included with this document. The data comes from all [place] facilities. Date Advance Directives Provider Source Feb 19, 2022 ADVANCE DIRECTIVE JOCE CASTORENA [facility] November 16, 2020 ADVANCE DIRECTIVE BYRON BARRON [facility]
--- OUTSIDE RECORDS SUMMARY | 2024-06-23 13:59 | XMS_ITS | Encounter Summary ---
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 Address [address] [place] [address] Care Team Providers Care Buoy Tender Name Role Phone BYRON BARRON Primary Care [...] Dec 19, 2007 MEDICAR E SUPPLEM E [id number] NYDIA HUERTA UL PATIENT [employer] MEDICARE SUPPLEMEN YORDAN Dec 19, 2007 MEDICAR E SUPPLEM E [id number] [phone] NYDIA HUERTA UL PATIENT [employer] CO MEDICARE SUPPLEMEN YORDAN BANKE RS Dec 19, 2007 NONE [id number] [phone] NYDIA HUERTA UL PATIENT MEDICARE (WNR) MEDICARE (M) PART B Oct 13, 2006 PART B [id number] NYDIA HUERTA UL PATIENT MEDICARE (WNR) MEDICARE (M) PART B Oct 13, 2006 PART B [id number] [phone] NYDIA HUERTA PATIENT MEDICARE (WNR) MEDICARE (M) PART B Oct 13, 2006 PART B [id number] [phone] NYDIA HUERTA PATIENT MEDICARE (WNR) MEDICARE (M) PART B Oct 13, 2006 PART B [id number] NYDIA HUERTA PATIENT MEDICARE (WNR) MEDICARE (M) PART A Sep 13, 2003 PART A [id number] [phone] NYDIA HUERTA PATIENT MEDICARE (WNR) MEDICARE (M) PART A Sep 13, 2003 PART A [id number] NYDIA HUERTA PATIENT MEDICARE (WNR) MEDICARE (M) PART A Sep 13, 2003 PART A [id number] [phone] NYDIA HUERTA PATIENT MEDICARE (WNR) MEDICARE (M) PART A Sep 13, 2003 PART A [id number] [phone] NYDIA HUERTA PATIENT Selected Encounter This section includes the information on record at [place] for the Encounter. Date/Time Encounter Type Encounter Description Reason Pro vider Source Mar 04, 2024 09:51 AM Outpatient Encounter ADMIN PAT ACTIVTIES (MASNONCT) IHE Encounter Template Text not used by [place] Plan of Treatment: Future Appointments (+ 6 months) and Future Tests (+/- 45 days) The Plan of Treatment section includes future care activities for the patient from all [place] treatmentfacilities. This section includes future appointments and future orders which are active, pending or scheduled. Future Appointments This section includes appointments that were scheduled to occur 6 months from the date of the Encounter, up to a maximum of 20 appointments. The data comes from all [place] treatment facilities. Appointment Date/Time Appointment Type Appointme nt Facility Name Mar 05, 2024 08:00 AM AMBULATORY - MEDICINE [place] [facility] Mar 05, 2024 09:00 AM AMBULATORY - MEDICINE [place] [facility] Mar 06, 2024 08:00 AM AMBULATORY - MEDICINE [place] [facility] Mar 24, 2024 02:00 PM AMBULATORY - MEDICINE [place] [facility] Mar 31, 2024 09:30 AM AMBULATORY - REHAB MEDICIN E [facility] [place] [facility] Apr 13, 2024 01:30 PM AMBULATORY - MEDICINE [facility] [place] [facility] Apr 28, 2024 02:00 PM AMBULATORY - MEDICINE [place] [facility] [place] [facility] May 05, 2024 02:00 PM AMBULATORY - REHAB MEDICIN E [facility] [place] [facility] Jun 16, 2024 01:15 PM AMBULATORY - MEDICINE [facility] [place] [facility] Aug 14, 2024 03:00 PM AMBULATORY - MEDICINE [place] [facility] Social History: Smoking Status (Most current) and Tobacco Use (All prior to encounter date) This section includes the most current, and the historical, smoking and tobacco- related health factors from the [place] facility where the Encounter took place. Current Smoking Status This section includes the most current smoking, or tobacco-related health factor, from the [place] facility where the Encounter took place. Date/Time Current Smoking Status Comment Facil jameey Oct 16, 2023 01:30 PM VA-TOBACCO FORMER USER [facility] [place] [facility] Tobacco Use History This section includes a history of the smoking, or tobacco-related health factors, that were collected on or before the date of the Encounter. The data comes from the [place] facility where the Encounter took place. Date/Time Smoking Status/Tobacco Use Comment F dennis Oct 16, 2023 01:30 PM VA-TOBACCO QUIT 15 YRS OR MORE [facility] [place] [facility] Jul 04, 2022 11:00 AM VA-TOBACCO FORMER USER [facility] [place] [facility] Jul 04, 2022 11:00 AM VA-TOBACCO QUIT 15 YRS OR MORE [facility] [place] [facility] Jun 28, 2021 10:30 AM VA-TOBACCO FORMER USER [facility] [place] [facility] Jun 28, 2021 10:30 AM VA-TOBACCO QUIT 15 YRS OR MORE [facility] [place] [facility] May 26, 2020 08:00 AM VA-TOBACCO FORMER USER [facility] [place] [facility] May 26, 2020 08:00 AM VA-TOBACCO QUIT 15 YRS OR MORE [facility] [place] [facility] May 23, 2018 11:21 AM VA-TOBACCO NEVER USED [facility] Advance Directives: All historical and current Section Date Range: From patient's date of to the date document was created. This section includes ALL of a patient's completed or amended [place] Advance and Rescinded Directives. The entries below indicate that a directive exists for the patient, but an actual copy is not included with this document. The data comes from all [place] facilities. Date Advance Directives Provider Source Feb 19, 2022 ADVANCE DIRECTIVE JOCE CASTORENA [facility] November 16, 2020 ADVANCE DIRECTIVE BYRON BARRON [facility] Encounter Notes: All associated encounter notes This section contains the clinical notes associated to the Encounter. Date/Time Encounter Note(s) Provider Source Mar 04, 2024 09:51 AM ADMINISTRATIVE NOT E: LOCAL TITLE: CCC: SCHEDULING ADMINISTRATION STANDARD TITLE: ADMINISTRATIVE NOTE DATE OF NOTE: MAR 04, 2024@09:51:22 ENTRY DATE: MAR 04, 2024@09:51:22 AUTHOR: BRIDGER STORM EXP COSIGNER: URGENCY: STATUS: COMPLETED Patient Demographics Patient Name: ALYCIA HUERTA Patient Primary Phone: [phone] Patient Primary Address: [address] [place] [id number] Patient : [id number] Patient Age: 83 Call Back Number: [phone] Caller/Recipient Relation to Patient: Self Administrative Administrative Note Reason: Other Administrative Note Comments: [place] spoke with [facility] eligibility consultant. Needs f2f within 8 hours for infected toe. No openings. [place] will go to . IMPORTANT: This note was created by [facility] Contact [facility] staff. Please do not alert the staff member by adding them as a signer for future communications. Alerts are not monitored by this user. /eleanor/ BRIDGER STORM Signed: 03/04/2024 09:51 Receipt Acknowledged By: 03/04/2024 10:13 /es/ Kerry WAN RN CNL Primary Care RN for JOSIE KINGSTON 03/04/2024 10:02 /es/ COBY TYREE HENNING LPN, [place] [facility]
--- OUTSIDE RECORDS SUMMARY | 2024-06-23 13:59 | XMS_ITS ---
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 Address [address] [place] [address] Care Team Providers Care Silk Worker Name Role Phone BYRON BARRON Primary Care [...] Dec 19, 2007 MEDICAR E SUPPLEM E [id number] NYDIA HUERTA UL PATIENT [employer] MEDICARE SUPPLEMEN YORDAN Dec 19, 2007 MEDICAR E SUPPLEM E [id number] NYDIA HUERTA UL PATIENT [employer] CO MEDICARE SUPPLEMEN YORDAN BANKE RS Dec 19, 2007 NONE [id number] NYDIA HUERTA UL PATIENT MEDICARE (WNR) MEDICARE (M) PART B Oct 13, 2006 PART B [id number] NYDIA HUERTA UL PATIENT MEDICARE (WNR) MEDICARE (M) PART B Oct 13, 2006 PART B [id number] [phone] [place] UL PATIENT MEDICARE (WNR) MEDICARE (M) PART B Oct 13, 2006 PART B [id number] NYDIA HUERTA PATIENT MEDICARE (WNR) MEDICARE (M) PART B Oct 13, 2006 PART B [id number] NYDIA HUERTA PATIENT MEDICARE (WNR) MEDICARE (M) PART A Sep 13, 2003 PART A [id number] NYDIA HUERTA PATIENT MEDICARE (WNR) MEDICARE (M) PART A Sep 13, 2003 PART A [id number] NYDIA HUERTA PATIENT MEDICARE (WNR) MEDICARE (M) PART A Sep 13, 2003 PART A [id number] NYDIA HUERTA PATIENT MEDICARE (WNR) MEDICARE (M) PART A Sep 13, 2003 PART A [id number] NYDIA HUERTA PATIENT Selected Encounter This section includes the information on record at [place] for the Encounter. Date/Time Encounter Type Encounter Description Reason Pro vider Source Feb 14, 2024 04:29 PM Outpatient Encounter OTOLARYNGOLOGY/ENT IHE Encounter Template [...] 05, 2024 08:00 AM AMBULATORY - MEDICINE [facility] [place] [facility] Mar 05, 2024 09:00 AM AMBULATORY - MEDICINE [facility] [place] [facility] Mar 06, 2024 08:00 AM AMBULATORY - MEDICINE [facility] [place] [facility] Mar 24, 2024 02:00 PM AMBULATORY - MEDICINE [place] [facility] Mar 31, 2024 09:30 AM AMBULATORY - [facility]H[place] MEDICIN E [place] [place] [facility] Apr 13, 2024 01:30 PM AMBULATORY - MEDICINE [facility] [place] [facility] Apr 28, 2024 02:00 PM AMBULATORY - MEDICINE [facility] [place] [facility] May 05, 2024 02:00 PM AMBULATORY - REHAB MEDICIN E [facility] [place] [place] [facility] Jun 16, 2024 01:15 PM AMBULATORY - MEDICINE [facility] [place] [facility] Aug 14, 2024 03:00 PM AMBULATORY - MEDICINE [facility] [place] [facility] Social History: Smoking Status (Most [...] took place. Date/Time Current Smoking Status Comment Darling blum Oct 16, 2023 01:30 PM VA-TOBACCO FORMER USER [facility] [place] [facility] Tobacco Use History This section includes a history of the smoking, or tobacco-related health factors, that were collected on or before the date of the Encounter. The data comes from the [place] facility where the Encounter took place. Date/Time Smoking Status/Tobacco Use Comment F dennis Oct 16, 2023 01:30 PM VA-TOBACCO QUIT 15 YRS OR MORE [facility] [place] [facility] Jul 04, 2022 11:00 AM VA-TOBACCO FORMER USER [facility] [place] [facility] Jul 04, 2022 11:00 AM VA-TOBACCO QUIT 15 YRS OR MORE [facility] [place] [facility] Jun 28, 2021 10:30 AM VA-TOBACCO FORMER USER [facility] [place] [facility] Jun 28, 2021 10:30 AM VA-TOBACCO QUIT 15 YRS OR MORE [facility] [place] [facility] May 26, 2020 08:00 AM VA-TOBACCO FORMER USER [facility] [place] [facility] May 26, 2020 08:00 AM VA-TOBACCO QUIT 15 YRS OR MORE [facility] [place] [place] [facility] May 23, 2018 11:21 AM VA-TOBACCO NEVER USED [facility] Advance Directives: All historical and current Section [...] Feb 19, 2022 ADVANCE DIRECTIVE JOCE CASTORENA [facility] November 16, 2020 ADVANCE DIRECTIVE BYRON BARRON [facility] Encounter Notes: All associated encounter notes This section contains the clinical notes associated to the Encounter. Date/Time Encounter Note(s) Provider Source Feb 14, 2024 04:29 PM ADMINISTRATIVE NOTE: LOCAL TITLE: ADMINISTRATIVE NOTE STANDARD TITLE: ADMINISTRATIVE NOTE DATE OF NOTE: FEB 14, 2024@16:29 ENTRY DATE: FEB 14, 2024@16:30:02 AUTHOR: FRIDA CORTES EXP COSIGNER: URGENCY: STATUS: COMPLETED ADMINISTRATIVE NOTE Has ADDENDA [address] leaving message on [facility] Call Center voicemail wanting to: [] Speak to provider (name): Concern: [xx] Schedule/ reschedule appointment [] Cancelling an existing appt. [] Other: Clinic: [x] Otolaryngology Vet [] would like [] does not need [] did not specify if they wanted a call back regarding this matter. C/B phone number: Confirmed as phone contact on file in [facility]: /MIKAEL Meléndez PHYSICAL THERAPIST Signed: 02/14/2024 16:32 Receipt Acknowledged By: 02/17/2024 10:56 /tena GOODE LEAD BIAS CUTTING MACHINE OPERATOR VERTICAL 02/17/2024 11:47 /tena WALKER ADVANCED BIAS CUTTING MACHINE OPERATOR VERTICAL 02/17/2024 ADDENDUM STATUS: COMPLETED Scheduled. /tena GOODE LEAD BIAS CUTTING MACHINE OPERATOR VERTICAL Signed: 02/17/2024 11:34 FRIDA CORTES [facility]
--- OUTSIDE RECORDS SUMMARY | 2024-06-23 14:00 | XMS_ITS ---
Author Name [place] Address [address] [place] [id number] Care Team Providers Care Captain Room Service Name Role Phone BYRON BARRON Primary Care [...] Dec 19, 2007 MEDICAR E SUPPLEM E [id number] NYDIA HUERTA PATIENT [employer] MEDICARE SUPPLEMEN YORDAN Dec 19, 2007 MEDICAR E SUPPLEM E [id number] NYDIA HUERTA UL PATIENT [employer] [place] MEDICARE SUPPLEMEN YORDAN BANKE RS Dec 19, 2007 NONE [id number] NYDIA HUERTA UL PATIENT MEDICARE (WNR) MEDICARE (M) PART B Oct 13, 2006 PART B [id number] [phone] NYDIA HUERTA UL PATIENT MEDICARE (WNR) MEDICARE (M) PART B Oct 13, 2006 PART B [id number] NYDIA HUERTA PATIENT MEDICARE (WNR) MEDICARE (M) PART B Oct 13, 2006 PART B [id number] [phone] NYDIA HUERTA PATIENT MEDICARE (WNR) MEDICARE (M) PART B Oct 13, 2006 PART B [id number] [phone] NYDIA HUERTA PATIENT MEDICARE (WNR) MEDICARE (M) PART A Sep 13, 2003 PART A [id number] NYDIA HUERTA UL PATIENT MEDICARE (WNR) MEDICARE (M) PART A Sep 13, 2003 PART A [id number] NYDIA HUERTA PATIENT MEDICARE (WNR) MEDICARE (M) PART A Sep 13, 2003 PART A [id number] NYDIA HUERTA PATIENT MEDICARE (WNR) MEDICARE (M) PART A Sep 13, 2003 PART A [id number] NYDIA HUERTA PATIENT Selected Encounter This section includes the information on record at [place] for the Encounter. Date/Time Encounter Type Encounter Description Reason Provider Source Mar 05, 2024 08:00 AM OFF/OP EST NOVEMBER X REQ PHY/QHP PRIMARY CARE/MEDICINE ICD-10-CM Z71.89 Other specified counseling STEPHANIE BANKS [place] Encounter Template Text not used by [place] Assessments - Encounter Diagnoses This section includes the primary and secondary diagnoses documented for the Encounter. Date/Time Primary/Secondary Diagnosis Diagnosis Name Provider Source Mar 20, 2024 12:36 PM PRIMARY Other specified counseling STEPHANIE BANKS [facility] Plan of Treatment: Future Appointments (+ 6 months) and Future Tests (+/- 45 days) The Plan of Treatment section includes future care activities for the patient from all [place] treatmentfacilities. This section includes future appointments and future orders which are active, pending or scheduled. Future Appointments This section includes appointments that were scheduled to occur 6 months from the date of the Encounter, up to a maximum of 20 appointments. The data comes from all [place] treatment facilities. Appointment Date/Time Appointment Type Appointme nt Facility Name Mar 06, 2024 08:00 AM AMBULATORY - MEDICINE [facility] Mar 24, 2024 02:00 PM AMBULATORY - MEDICINE [place] [facility] Mar 31, 2024 09:30 AM AMBULATORY - REHAB MEDICIN E [place] [facility] Apr 13, 2024 01:30 PM AMBULATORY - MEDICINE [place] C [place] [facility] Apr 28, 2024 02:00 PM AMBULATORY - MEDICINE [place] C [place] [facility] May 05, 2024 02:00 PM AMBULATORY - REHAB MEDICIN E [place] [facility] Jun 16, 2024 01:15 PM AMBULATORY - MEDICINE [place] C [place] [facility] Aug 14, 2024 03:00 PM AMBULATORY - MEDICINE [place] C [place] [facility] Vital Signs: All taken on the encounter date This section contains inpatient and outpatient Vital Signs collected on the date of the Encounter. Date/Time Temperature Pulse Blood Pressure Respiratory Rate SP02 Pain Height Weight Body Mass Index Source Mar 05, 2024 08:39 AM 97.5 71 170/65 16 [address] [place] [address] [facility] Social History: Smoking Status (Most current) and Tobacco Use (All prior to encounter date) This section includes the most current, and the historical, smoking and tobacco- related health factors from the [place] facility where the Encounter took place. Current Smoking Status This section includes the most current smoking, or tobacco-related health factor, from the [place] facility where the Encounter took place. Date/Time Current Smoking Status Comment Facil ity Oct 16, 2023 01:30 PM [facility] Tobacco Use History This section includes a history of the smoking, or tobacco-related health factors, that were collected on or before the date of the Encounter. The data comes from the [place] facility where the Encounter took place. Date/Time Smoking Status/Tobacco Use Comment F acility Oct 16, 2023 01:30 PM VA-TOBACCO QUIT 15 YRS OR MORE [place] [facility] Jul 04, 2022 11:00 AM VA-TOBACCO FORMER USER [place] [facility] Jul 04, 2022 11:00 AM VA-TOBACCO QUIT 15 YRS OR MORE [place] [facility] Jun 28, 2021 10:30 AM VA-TOBACCO FORMER USER [place] [facility] Jun 28, 2021 10:30 AM VA-TOBACCO QUIT 15 YRS OR MORE [place] [facility] May 26, 2020 08:00 AM VA-TOBACCO FORMER USER [place] [facility] May 26, 2020 08:00 AM VA-TOBACCO QUIT 15 YRS OR MORE [place] [facility] May 23, 2018 11:21 AM [facility]TOBACCO [facility] Advance Directives: All historical and current Section Date Range: From patient's date of to the date document was created. This section includes ALL of a patient's completed or amended [place] Advance and Rescinded Directives. The entries below indicate that a directive exists for the patient, but an actual copy is not included with this document. The data comes from all [place] facilities. Date Advance Directives Provider Source Feb 19, 2022 ADVANCE DIRECTIVE JOCE [facility]STORENA [facility] November 16, 2020 ADVANCE DIRECTIVE [facility]RON B[facility]ON [facility] Encounter Notes: All associated encounter notes This section contains the clinical notes associated to the Encounter. Date/Time Encounter Note(s) Provider Source Mar 05, 2024 08:34 AM PRIMARY CARE OUTPA TIENT NOTE: LOCAL TITLE: AMBULATORY/OUTPATIENT CARE NOTE STANDARD TITLE: PRIMARY CARE OUTPATIENT NOTE DATE OF NOTE: MAR 05, 2024@08:34 ENTRY DATE: MAR 05, 2024@08:34:40 AUTHOR: STEPHANIE BANKS COSIGNER: URGENCY: STATUS: COMPLETED [place] [address] [place] came to clinic today per instruction. Yesterdays call center note: [place] explains he fractured his left ankle approx. 8 weeks ago. and had surgical repair for it approx. 7 weeks ago through [facility]. [place] now wearing a walking a boot. Calling today to schedule an appt. with his PCP for an infected left 4th toe. Has had pain to the left 4th toe for the last 3-4 weeks. States he would accidently hit it on things now and then. 1-2/10 pain scale. States he saw his orthopedic MD yesterday and he assessed the toe and noted the nail is coming off and it is infected and he needs abx. Toe is swollen and bruised. Also states he has a toenail fungus on the nail. Was directed by the orthopedic MD to see his PCP and have it taken care of. [place] did contact a civilian optics test technician but they cannot see him until His 4th toe on left foot, nail is coming off. /eleanor/ Stephanie Banks RN, BSN Primary Care Signed: 03/05/2024 09:20 [facility]ANIE BANKS [place] [facility]
--- OUTSIDE RECORDS SUMMARY | 2024-06-23 14:00 | XMS_ITS ---
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 Address [address] [place] [address] Care Team Providers Care Sequins Slinger Name Role Phone BYRON BARRON Primary Care [...] Dec 19, 2007 MEDICAR E SUPPLEM E [id number] NYDIA HUERTA UL PATIENT [employer] MEDICARE SUPPLEMEN YORDAN Dec 19, 2007 MEDICAR E SUPPLEM E [id number] NYDIA HUERTA UL PATIENT [employer] CO MEDICARE SUPPLEMEN YORDAN BANKE RS Dec 19, 2007 NONE [id number] NYDIA HUERTA UL PATIENT MEDICARE (WNR) MEDICARE (M) PART B Oct 13, 2006 PART B [id number] NYDIA HUERTA UL PATIENT MEDICARE (WNR) MEDICARE (M) PART B Oct 13, 2006 PART B [id number] [place] UL PATIENT MEDICARE (WNR) MEDICARE (M) PART B Oct 13, 2006 PART B [id number] NYDIA HUERTA PATIENT MEDICARE (WNR) MEDICARE (M) PART B Oct 13, 2006 PART B [id number] [phone] NYDIA HUERTA PATIENT MEDICARE (WNR) MEDICARE (M) PART A Sep 13, 2003 PART A [id number] NYDIA HUERTA PATIENT MEDICARE (WNR) MEDICARE (M) PART A Sep 13, 2003 PART A [id number] NYDIA HUERTA PATIENT MEDICARE (WNR) MEDICARE (M) PART A Sep 13, 2003 PART A [id number] [phone] NYDIA HUERTA PATIENT MEDICARE (WNR) MEDICARE (M) PART A Sep 13, 2003 PART A [id number] NYDIA HUERTA PATIENT Selected Encounter This section includes the information on record at [place] for the Encounter. Date/Time Encounter Type Encounter Description Reason Provider Source Mar 05, 2024 09:00 AM OFFICE O/P EST LOW 20 MIN PRIMARY CARE/MEDICINE ICD-10-CM L60.1 Onycholysis ISAK STERN [facility] Encounter Template Text not used by [place] Assessments - Encounter Diagnoses This section includes the primary and secondary diagnoses documented for the Encounter. Date/Time Primary/Secondary Diagnosis Diagnosis Name Provider Source Mar 20, 2024 12:50 PM PRIMARY [facility] Mar 20, 2024 12:50 PM SECONDARY Unsp open wound of left lesser toe(s) w damage to nail, init [facility]AK STERN [facility] Plan of Treatment: Future Appointments (+ 6 months) and Future Tests (+/- 45 days) The Plan of Treatment section includes future care activities for the patient from all [place] treatmentfacilities. This section includes future appointments and future orders which are active, pending or scheduled. Future Appointments This section includes appointments that were scheduled to occur 6 months from the date of the Encounter, up to a maximum of 20 appointments. The data comes from all [place] treatment facilities. Appointment Date/Time Appointment Type Appointme nt Facility Name Mar 06, 2024 08:00 AM AMBULATORY - MEDICINE [place] [facility] Mar 24, 2024 02:00 PM AMBULATORY - MEDICINE IN C [place] [facility] Mar 31, 2024 09:30 AM AMBULATORY - REHAB MEDICIN E [place]TRL [place] [facility] Apr 13, 2024 01:30 PM AMBULATORY - MEDICINE IN C [place] [facility] Apr 28, 2024 02:00 PM AMBULATORY - MEDICINE IN C [place] [facility] May 05, 2024 02:00 PM AMBULATORY - REHAB MEDICIN E [place]TRL [place] [facility] Jun 16, 2024 01:15 PM AMBULATORY - MEDICINE IN C [place]TR[place] [facility] Aug 14, 2024 03:00 PM AMBULATORY - MEDICINE [facility] Vital Signs: All taken on the encounter date This section contains inpatient and outpatient Vital Signs collected on the date of the Encounter. Date/Time Temperature Pulse Blood Pressure Respiratory Rate SP02 Pain Height Weight Body Mass Index Source Mar 05, 2024 08:39 AM 97.5 71 170/65 16 98 1 [facility] Social History: Smoking Status (Most current) and Tobacco Use (All prior to encounter date) This section includes the most current, and the historical, smoking and tobacco- related health factors from the [place] facility where the Encounter took place. Current Smoking Status This section includes the most current smoking, or tobacco-related health factor, from the [place] facility where the Encounter took place. Date/Time Current Smoking Status Comment Facil ity Oct 16, 2023 01:30 PM [facility]-TOBACCO [facility] Tobacco Use History This section includes a history of the smoking, or tobacco-related health factors, that were collected on or before the date of the Encounter. The data comes from the [place] facility where the Encounter took place. Date/Time Smoking Status/Tobacco Use Comment F acility Oct 16, 2023 01:30 PM VA-TOBACCO QUIT 15 YRS OR MORE [facility] Jul 04, 2022 11:00 AM VA-TOBACCO FORMER USER [place] [facility] Jul 04, 2022 11:00 AM VA-TOBACCO QUIT 15 YRS OR MORE IN CNTRL [place] [facility] Jun 28, 2021 10:30 AM VA-TOBACCO FORMER USER IN CNTRL [place] [facility] Jun 28, 2021 10:30 AM VA-TOBACCO QUIT 15 YRS OR MORE IN CNTRL [place] [facility] May 26, 2020 08:00 AM VA-TOBACCO FORMER USER IN CNTRL [place] [facility] May 26, 2020 08:00 AM VA-TOBACCO QUIT 15 YRS OR MORE IN CNTRL [place] [facility] May 23, 2018 11:21 AM VA-TOBACCO NEVER USED [facility] Advance Directives: All historical and current Section Date Range: From patient's date of to the date document was created. This section includes ALL of a patient's completed or amended [place] Advance and Rescinded Directives. The entries below indicate that a directive exists for the patient, but an actual copy is not included with this document. The data comes from all [place] facilities. Date Advance Directives Provider Source Feb 19, 2022 ADVANCE DIRECTIVE JOCE CASTORENA IN [facility]TR [facility] November 16, 2020 ADVANCE DIRECTIVE BYRON BARRON IN CNT [facility] Encounter Notes: All associated encounter notes This section contains the clinical notes associated to the Encounter. Date/Time Encounter Note(s) Provider Source Mar 05, 2024 08:48 AM PHYSICIAN AUTOMOTIVE SERVICE DIRECTOR NOTE: LOCAL TITLE: [place] NOTE STANDARD TITLE: PHYSICIAN AUTOMOTIVE SERVICE DIRECTOR NOTE DATE OF NOTE: MAR 05, 2024@08:48 ENTRY DATE: MAR 05, 2024@08:48:53 AUTHOR: ISAK STERN EXP COSIGNER: URGENCY: STATUS: COMPLETED SICK CALL VISIT HPI: 83-year-old male with below noted past medical history presents today with concerns regarding left fourth toe infection. He reports that approximately 8 weeks ago he fractured his left ankle which has been repaired with a plate . He has had difficulty trimming his nails for years however he has been doing them for himself. He is not diabetic. He does state that one of the toenail seems to be lifting away from and he would like it removed as he is concerned that he will rip it off by accident. He denies any foot pain or swelling. He continues to wear his fracture boot per his orthopedic. Denies any paresthesias. He does endorse long-term anticoagulant use. REVIEW OF SYSTEMS: A 12 point review of systems is negative except as noted in the HPI. Active Medical Problems: Active Problem Chronic dermatitis L30.9, Onset 10/05/2022 BYRON BARRON Aortic valve stenosis I35.0 02/19/2022 RUBEN HAMMOND Chest Pain ([facility] [id number]) R07.9, On 01/02/2022 BYRON BARRON COPD - Chronic Obstructive Pulmonar 12/28/2021 BYRON BARRON HTN - Hypertension ([facility] [id number]) I 10/21/2020 BYRON BARRON Hypercholesterolemia ([facility] [id number]) 10/21/2020 BYRON BARRON Cataract H26.9, Onset 10/12/2020 BYRON BARRON Asbestosis J61., Onset 05/30/2018 BYRON BARRON Meds: Active Outpatient Medications (including Supplies): ATORVASTATIN CALCIUM 80MG TAB TAKE ONE TABLET BY MOUTH AT ACTIVE BEDTIME EZETIMIBE 10MG TAB TAKE ONE TABLET BY MOUTH ONCE DAILY TO ACTIVE LOWER CHOLESTEROL FLUTICAS 250/SALMETEROL 50 INHL DISK 60 INHALE 1 PUFF BY ACTIVE MOUTH TWICE DAILY - RINSE MOUTH AFTER USE FLUTICASONE PROP 50MCG 120D NASAL INHL INSTILL 1 SPRAY ACTIVE INTO EACH NOSTRIL ONCE DAILY NEEDED FOR NASAL IRRITATION/INFLAMMATION HYDROCHLOROTHIAZIDE 25MG TAB TAKE ONE TABLET BY MOUTH ONCE ACTIVE DAILY METOPROLOL SUCCINATE 50MG SA TAB TAKE ONE TABLET BY MOUTH ACTIVE ONCE DAILY FOR BLOOD PRESSURE/HEART TRIAMCINOLONE ACETONIDE 0.1% CREAM APPLY A MODERATE AMOUNT ACTIVE TOPICALLY TWICE DAILY NEEDED FOR ITCHING Non-VA ASPIRIN 81MG CHEW TAB 81MG BY MOUTH ONCE DAILY ACTIVE Allergies: NOVOCAIN Date Vital Measurement Qualifiers 03/05/2024 08:39 Temp F (C) 97.5 (36.4) Pulse 71 Respir 16 BP 170/65 Pain 1 POx (L/Min)(%) 98 At Rest FOCUSED EXAMINATION GEN: Well-developed, spry male in no acute distress Vascular: DP 2+ left foot Neuro: Sensation is grossly intact. MSK: The foot is slightly edematous without erythema. The fourth digit of the foot has erythema and soft tissue swelling. There is hypertrophic nails along the entire foot with the fourth digits nail with complete laxity and this nail came off during inspection. The 1 area where there was more adherence is bleeding and that was addressed with pressure and silver nitrate stick. Pressure dressing was applied afterwards with good hemostasis. MDM: No clinical evidence of neurovascular or neurosensory deficit at this time. Will address open wound of toe with recent ankle ORIF with coverage of Keflex 500 mg (renal function good) p.o. 3 times daily x 7 days. Warm Epsom salt soaks. Dressing changes daily and as needed soiled. RTC any persistent bleeding. Follow-up as scheduled with PCP. RTC as needed. ASSESSMENT/PLAN Onycholysis Unspecified open Wound of left Lesser Toe(s) with Damage to Nail, Initial Encounter as above able to verbalize understanding of plan of care and agrees. >> MEDICATIONS Reviewed and reconciled with [place] /eleanor/ ISAK MC MS,PA-C PHYSICIAN AUTOMOTIVE SERVICE DIRECTOR Signed: 03/05/2024 09:41 ISAK STERN IN CNTL [facility]
--- OUTSIDE RECORDS SUMMARY | 2024-06-23 14:01 | XMS_ITS | Encounter Summary ---
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 [place] Organization [facility] [place] [facility] [place] Address [address] [place] [id number] Care Team Providers Care Pricing Actuary Name Role Phone BYRON BARRON Primary Care [...] Dec 19, 2007 MEDICAR E SUPPLEM E [id number] [phone] NYDIA HUERTA UL PATIENT [employer] MEDICARE SUPPLEMEN YORDAN Dec 19, 2007 MEDICAR E SUPPLEM E [id number] [phone] NYDIA HUERTA UL PATIENT [employer] [place] MEDICARE SUPPLEMEN YORDAN BANKE RS Dec 19, 2007 NONE [id number] [phone] NYDIA HUERTA UL PATIENT MEDICARE (WNR) MEDICARE (M) PART B Oct 13, 2006 PART B [id number] NYDIA HUERTA UL PATIENT MEDICARE (WNR) MEDICARE (M) PART B Oct 13, 2006 PART B [id number] [phone] NYDIA HUERTA UL PATIENT MEDICARE (WNR) MEDICARE (M) PART B Oct 13, 2006 PART B [id number] NYDIA HUERTA PATIENT MEDICARE (WNR) MEDICARE (M) PART B Oct 13, 2006 PART B [id number] NYDIA HUERTA PATIENT MEDICARE (WNR) MEDICARE (M) PART A Sep 13, 2003 PART A [id number] NYDIA HUERTA PATIENT MEDICARE (WNR) MEDICARE (M) PART A Sep 13, 2003 PART A [id number] NYDIA HUERTA PATIENT MEDICARE (WNR) MEDICARE (M) PART A Sep 13, 2003 PART A [id number] NYDIA HUERTA PATIENT MEDICARE (WNR) MEDICARE (M) PART A Sep 13, 2003 PART A [id number] NYDIA HUERTA PATIENT Selected Encounter This section includes the information on record at NH for the Encounter. Date/Time Encounter Type Encounter Description Reason Provider Source Mar 31, 2024 09:30 AM HEARING AID EXAM BOTH EARS AUDIOLOGY ICD-10-CM H90.6 Mixed conductive and sensorineural hearing loss, bilateral SAAD HARRINGTON IHE Encounter Template Text not used by [place] Assessments - Encounter Diagnoses This section includes the primary and secondary diagnoses documented for the Encounter. Date/Time Primary/Secondary Diagnosis Diagnosis Name Provider Source Mar 31, 2024 09:43 AM PRIMARY Mixed conductive and sensorineural hearing loss, bilateral SAAD HARRINGTON [facility] Plan of Treatment: Future Appointments (+ 6 months) and Future Tests (+/- 45 days) The Plan of Treatment section includes future care activities for the patient from all [place] treatmentfacilities. This section includes future appointments and future orders which are active, pending or scheduled. Future Appointments This section includes appointments that were scheduled to occur 6 months from the date of the Encounter, up to a maximum of 20 appointments. The data comes from all [place] treatment facilities. Appointment Date/Time Appointment Type Appointme nt Facility Name Apr 13, 2024 01:30 PM AMBULATORY [facility] Apr 28, 2024 02:00 PM [facility] May 05, 2024 02:00 PM [facility] Jun 16, 2024 01:15 PM [facility] Aug 14, 2024 03:00 PM [facility] Lab Results: +/- 30 days of the encounter This section includes the Chemistry and Hematology Lab Results on record with NH for the patient. Radiology Reports and Pathology Reports are provided separately, in subsequent sections. Lab Results This section contains the Chemistry/Hematology Results that were resulted 30 days before or 30 daysafter the date of the Encounter. Date/Time Source Result Type Result - Unit Interpretation Reference Range Comment Apr 07, 2024 07:31 AM [facility] LIVER FUNCTION Specimen Type: SERUM No comment entered. Ordering Provider: BYRON BARRON Report Released Date/Time: Apr 04, 2024 05:53 PM Reporting Lab: [address] [address] Performing Lab: [address] [address] PROTEIN,TOTAL 6.8 g/dL 6.0-8.3 ALBUMIN 4.0 g/dL 3.5-5.0 ALKALINE PHOSPHATASE 118 U/L 40-150 AST 30 U/L 5-34 ALT 23 U/L BILIRUBIN, TOTAL 1.0 mg/dL 0.2-1.2 Apr 07, 2024 07:31 AM [facility] BASIC METABOLIC PANEL (fasting) Specimen Type: SERUM No comment entered. Ordering Provider: BYRON BARRON Report Released Date/Time: Apr 04, 2024 05:53 PM Reporting Lab: [address] [address] Performing Lab: [address] [address] UREA NITROGEN 22 mg/dL 7-25 GLUCOSE 93 mg/dL 65-100 SODIUM 139 mmol/L 135-145 POTASSIUM 3.9 mmol/L 3.5-5.0 CHLORIDE 102 mmol/L 100-110 CO2 26 meq/L 20-30 CREATININE, Serum 0.92 mg/dL 0.50-1.40 eGFR(CKD-EPI 2020) 82 mL/min >60 Apr 07, 2024 07:31 AM [facility] TSH Specimen Type: SERUM No comment entered. Ordering Provider: BYRON BARRON Report Released Date/Time: Apr 04, 2024 05:53 PM Reporting Lab: [facility] [address] [facility] [address] Performing Lab: [address] [address] TSH 2.34 u[IU]/mL 0.35-5.00 Apr 07, 2024 07:31 AM [facility] LIPID PANEL FASTING Specimen Type: SERUM No comment entered. Ordering Provider: BYRON BARRON Report Released Date/Time: Apr 04, 2024 05:53 PM Reporting Lab: [facility] [address] [facility] [address] Performing Lab: [address] [address] CHOLESTEROL 139 mg/dL TRIGLYCERIDE 136 mg/dL 0-150 LDL calculated 72 mg/dL 0-129 CHOL/HDL 3.5 HDL CHOLESTEROL 40 mg/dL 40-60 Apr 07, 2024 07:31 AM [facility] CBC AND DIFF (AUTO) Specimen Type: BLOOD No comment entered. Ordering Provider: BYRON BARRON Report Released Date/Time: Apr 04, 2024 05:53 PM Reporting Lab: [facility] [address] [facility] [address] Performing Lab: [address] [address] WBC 7.77 10*3/uL 4.50-11.00 RBC 4.29 10*6/uL 4.23-5.66 HGB 14.2 g/dL 12.8-17 HCT 41.1 39.2-50.4 MCV 95.8 fL 82-99 MCHC 34.5 g/dL 30.8-35.1 PLT 184 10*3/uL 140-360 RDW-CV 13.1 12.0-16.0 MONO, ABS 0.98 10*3/uL 0.30-1.10 MCH 33.1 pg H 26.2-32.6 NEUT % 52.3 43.7-75.8 LYMPH % 31.7 14.0-42.3 MONO % 12.6 5.1-13.7 EOS % 2.3 0.4-6.8 BASO % 0.6 0.1-2.0 NEUT, ABS 4.06 10*3/uL 2.20-7.60 LYMPH, ABS 2.46 10*3/uL 1.00-3.20 EOS, ABS 0.18 10*3/uL 0.03-0.44 BASO, ABS 0.05 10*3/uL 0.01-0.13 IMMATURE GRAN % 0.5 0.0-0.7 IMMATURE GRAN, ABS 0.04 10*3/uL 0.00-0.06 NRBC % 0.0 0.0-0.0 NRBC, ABS 0.00 10*3/uL 0.00-0.00 Apr 07, 2024 07:31 AM [facility] URINALYSIS CLEAN CATCH Specimen Type: URINE Comment: If Glucose = >500 and Ketones are positive, please alert the Physician. Ordering Provider: BYRON BARRON Report Released Date/Time: Apr 04, 2024 05:53 PM Reporting Lab: [address] [address] Performing Lab: [address] [address] UA COLOR Yellow Yellow UA APPEARANCE Clear Clear UA GLUCOSE Normal mg/dL Negative UA KETONES NEGATIVE mg/dL Negative UA BLOOD NEGATIVE mg/dL Negative UA PROTEIN 10 mg/dL Negative UA NITRITE NEGATIVE mg/dL Negative UA BILIRUBIN NEGATIVE mg/dL Negative UA SPECIFIC GRAVITY 1.024 H 1.016-1.022 UA pH 7.0 5.0-9.0 UA UROBILINOGEN Normal mg/dL <2.0 UA LEUKOCYTE NEGATIVE Negative Social History: Smoking Status (Most current) and Tobacco Use (All prior to encounter date) This section includes the most current, and the historical, smoking and tobacco- related health factors from the [place] facility where the Encounter took place. Current Smoking Status This section includes the most current smoking, or tobacco-related health factor, from the [place] facility where the Encounter took place. Date/Time Current Smoking Status Comment [facility] ity Oct 16, 2023 01:30 PM VA-TOBACCO FORMER USER [facility] Tobacco Use History This section includes a history of the smoking, or tobacco-related health factors, that were collected on or before the date of the Encounter. The data comes from the [place] facility where the Encounter took place. Date/Time Smoking Status/Tobacco Use Comment F [facility] Oct 16, 2023 01:30 PM VA-TOBACCO QUIT 15 YRS OR MORE [place] [facility] [place] [facility] Jul 04, 2022 11:00 AM VA-TOBACCO FORMER USER [place] [facility] [place] [facility] Jul 04, 2022 11:00 AM VA-TOBACCO QUIT 15 YRS OR MORE [place] [facility] [place] [facility] Jun 28, 2021 10:30 AM VA-TOBACCO FORMER USER [place] [facility] [place] [facility] Jun 28, 2021 10:30 AM VA-TOBACCO QUIT 15 YRS OR MORE [place] [facility] [place] [facility] May 26, 2020 08:00 AM VA-TOBACCO FORMER USER [place] [facility] [place] [facility] May 26, 2020 08:00 AM VA-TOBACCO QUIT 15 YRS OR MORE [place] [facility] [place] [facility] May 23, 2018 11:21 AM VA-TOBACCO NEVER USED [place] [facility] [place] [facility] Advance Directives: All historical and current Section Date Range: From patient's date of to the date document was created. This section includes ALL of a patient's completed or amended [place] Advance and Rescinded Directives. The entries below indicate that a directive exists for the patient, but an actual copy is not included with this document. The data comes from all [place] facilities. Date Advance Directives Provider Source Feb 19, 2022 ADVANCE DIRECTIVE JOCE CASTORENA [facility] November 16, 2020 ADVANCE DIRECTIVE BYRON BARRON [facility] Encounter Notes: All associated encounter notes This section contains the clinical notes associated to the Encounter. Date/Time Encounter Note(s) Provider Source Mar 31, 2024 07:52 AM AUDIOLOGY E & M NO TE: LOCAL TITLE: AUDIOLOGY CLINIC STANDARD TITLE: AUDIOLOGY E & M NOTE DATE OF NOTE: MAR 31, 2024@07:52 ENTRY DATE: MAR 31, 2024@07:52:56 AUTHOR: SAAD HARRINGTON EXP COSIGNER: URGENCY: STATUS: COMPLETED AUDIOLOGY CLINIC Has ADDENDA was seen on 03-31-24 for a hearing aid evaluation. He received medical clearance for amplification from ENT in [facility] on 03-24-24. 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 Binaural rechargeable BTEs are recommended and agrees. He states he does not have a pacemaker. He chose beige for the color. Otoscopy was WNLs. Ear impressions were taken without incident. RTC order placed for the fitting 05-05-24 2pm. /eleanor/ Alcon GERONIMO, [facility]-A STAFF CORPORATE RECEPTIONIST Signed: 03/31/2024 09:55 Receipt Acknowledged By: 03/31/2024 10:12 /eleanor/ SUHAS SINHA LEAD ARCH SUPPORT TECHNICIAN 04/09/2024 ADDENDUM STATUS: COMPLETED Hearing aids received and certified, upcoming appointment scheduled on 05/05/2024. /eleanor/ ELIGIO CHAND [facility] Exhaust And Muffler Repairer Signed: 04/09/2024 08:42 SAAD HARRINGTON [place] [facility]
--- OUTSIDE RECORDS SUMMARY | 2024-06-23 14:01 | XMS_ITS ---
Author Name [facility] [place] Address [address] [place] [address] Care Team Providers Care Towel Stretcher Name Role Phone BYRON BARRON Primary Care [...] Dec 19, 2007 MEDICAR E SUPPLEM E [id number] NYDIA HUERTA PATIENT [employer] MEDICARE SUPPLEMEN YORDAN Dec 19, 2007 MEDICAR E SUPPLEM E [id number] [phone] NYDIA HUERTA UL PATIENT [employer] [place] MEDICARE SUPPLEMEN YORDAN BANKE RS Dec 19, 2007 NONE [id number] NYDIA HUERTA UL PATIENT MEDICARE (WNR) MEDICARE (M) PART B Oct 13, 2006 PART B [id number] NYDIA HUERTA UL PATIENT MEDICARE (WNR) MEDICARE (M) PART B Oct 13, 2006 PART B [id number] NYDIA HUERTA PATIENT MEDICARE (WNR) MEDICARE (M) PART B Oct 13, 2006 PART B [id number] NYDIA HUERTA PATIENT MEDICARE (WNR) MEDICARE (M) PART B Oct 13, 2006 PART B [id number] NYDIA HUERTA PATIENT MEDICARE (WNR) MEDICARE (M) PART A Sep 13, 2003 PART A [id number] NYDIA HUERTA UL PATIENT MEDICARE (WNR) MEDICARE (M) PART A Sep 13, 2003 PART A [id number] NYDIA HUERTA PATIENT MEDICARE (WNR) MEDICARE (M) PART A Sep 13, 2003 PART A [id number] NYDIA HUERTA PATIENT MEDICARE (WNR) MEDICARE (M) PART A Sep 13, 2003 PART A [id number] [phone] NYDIA HUERTA PATIENT Selected Encounter This section includes the information on record at [place] for the Encounter. Date/Time Encounter Type Encounter Description Reason Provider Source Mar 06, 2024 08:00 AM OFF/OP EST NOVEMBER X REQ PHY/QHP PRIMARY CARE/MEDICINE ICD-10-CM Z48.01 Encounter for change or removal of surgical wound dressing JW SIEGEL [facility] Encounter Template Text not used by [place] Assessments - Encounter Diagnoses This section includes the primary and secondary diagnoses documented for the Encounter. Date/Time Primary/Secondary Diagnosis Diagnosis Name Provider Source Mar 24, 2024 09:30 AM PRIMARY Encounter for change or removal of surgical wound dressing JW SIEGEL [place] [facility] [place] [facility] Plan of Treatment: Future Appointments (+ 6 months) and Future Tests (+/- 45 days) The Plan of Treatment section includes future care activities for the patient from all [place] treatmentfacilities. This section includes future appointments and future orders which are active, pending or scheduled. Future Appointments This section includes appointments that were scheduled to occur 6 months from the date of the Encounter, up to a maximum of 20 appointments. The data comes from all [place] treatment facilities. Appointment Date/Time Appointment Type Appointme nt Facility Name Mar 24, 2024 02:00 PM AMBULATORY [facility] MEDICINE [facility] [place] [facility] Mar 31, 2024 09:30 AM AMBULATORY - REHAB MEDICIN E [facility] [place] [facility] Apr 13, 2024 01:30 PM AMBULATORY - MEDICINE [facility] [place] [facility] Apr 28, 2024 02:00 PM AMBULATORY - MEDICINE [facility] [place] [facility] May 05, 2024 02:00 PM AMBULATORY - REHAB MEDICIN E [facility] [place] [facility] Jun 16, 2024 01:15 PM AMBULATORY - MEDICINE [facility] [place] [facility] Aug 14, 2024 03:00 PM AMBULATORY - MEDICINE [place] [facility] [place] [facility] Social History: Smoking Status (Most current) and Tobacco Use (All prior to encounter date) This section includes the most current, and the historical, smoking and tobacco- related health factors from the [place] facility where the Encounter took place. Current Smoking Status This section includes the most current smoking, or tobacco-related health factor, from the [place] facility where the Encounter took place. Date/Time Current Smoking Status Comment Facil ity Oct 16, 2023 01:30 PM VA-TOBACCO FORMER USER [place] [facility] [facility] Tobacco Use History This section includes a history of the smoking, or tobacco-related health factors, that were collected on or before the date of the Encounter. The data comes from the [place] facility where the Encounter took place. Date/Time Smoking Status/Tobacco Use Comment F acility Oct 16, 2023 01:30 PM VA-TOBACCO QUIT 15 YRS OR MORE [facility] [place] [facility] Jul 04, 2022 11:00 AM VA-TOBACCO FORMER USER [facility] [place] [facility] Jul 04, 2022 11:00 AM VA-TOBACCO QUIT 15 YRS OR MORE [facility] [place] [facility] Jun 28, 2021 10:30 AM VA-TOBACCO FORMER USER [facility] [place] [facility] Jun 28, 2021 10:30 AM VA-TOBACCO QUIT 15 YRS OR MORE [facility] [place] [facility] May 26, 2020 08:00 AM VA-TOBACCO FORMER USER [facility] [place] [facility] May 26, 2020 08:00 AM [place]-TOBACCO QUIT 15 YRS OR MORE [facility] May 23, 2018 11:21 AM [place]-TOBACCO NEVER USED [facility] Advance Directives: All historical and current Section Date Range: From patient's date of to the date document was created. This section includes ALL of a patient's completed or amended [place] Advance and Rescinded Directives. The entries below indicate that a directive exists for the patient, but an actual copy is not included with this document. The data comes from all [place] facilities. Date Advance Directives Provider Source Feb 19, 2022 ADVANCE DIRECTIVE JOCE CASTORENA [facility] November 16, 2020 ADVANCE DIRECTIVE BYRON BARRON [facility] Encounter Notes: All associated encounter notes This section contains the clinical notes associated to the Encounter. Date/Time Encounter Note(s) Provider Source Mar 06, 2024 08:45 AM [facility] LOCAL TITLE: AMBULATORY/OUTPATIENT CARE NOTE STANDARD TITLE: PRIMARY CARE OUTPATIENT NOTE DATE OF NOTE: MAR 06, 2024@08:45 ENTRY DATE: MAR 06, 2024@08:45:14 AUTHOR: JW SIEGEL EXP COSIGNER: URGENCY: STATUS: COMPLETED F: Dressing change D/A: Clifford presents to Sick call for a dressing change. Yesterday the fourth digit toenail on Clifford's left foot was removed. Clifford had one area where there was more adherence and started bleeding, pressure was applied, then silver nitrate. A pressure dressing was then applied afterwards and the bleeding stopped. says that he did not note any bleeding through the dressing. Dressing removed. Utilized Normal Saline to remove the gauze directly on the toe. Noted dried blood, scabbing. No active bleeding. No signs of infection noted. Cleansed with Normal Saline, patted dry with 4 x 4s, applied bacitracin, Band-Aid and then secured with a small piece of Coban. Remaining Coban given to Clifford. Clifford and/or his daughter to change the dressing daily. Apply a small amount of triple antibiotic and cover with a Band Aid. Advised Clifford to RTC for persistent bleeding or infection R: RTC PRN for dressing change /es/ JW L CHRISTAL, MSN, RN, CNL PRIMARY CARE TEAM NURSE Signed: 03/06/2024 08:56 JW SIEGEL [facility]
--- OUTSIDE RECORDS SUMMARY | 2024-06-23 14:02 | XMS_ITS | Encounter Summary ---
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 [place] Organization [facility] [place] [place] Address [address] [place] [address] Care Team Providers Care Professor Of Psychology Name Role Phone BYRON BARRON Primary Care [...] Dec 19, 2007 MEDICAR E SUPPLEM E [id number] [phone] NYDIA HUERTA PATIENT [employer] MEDICARE SUPPLEMEN YORDAN Dec 19, 2007 MEDICAR E SUPPLEM E [id number] NYDIA HUERTA UL PATIENT [employer] [place] MEDICARE SUPPLEMEN YORDAN BANKE RS Dec 19, 2007 NONE [id number] NYDIA HUERTA PATIENT MEDICARE (WNR) MEDICARE (M) PART B Oct 13, 2006 PART B [id number] NYDIA HUERTA UL PATIENT MEDICARE (WNR) MEDICARE (M) PART B Oct 13, 2006 PART B [id number] [phone] NYDIA HUERTA PATIENT MEDICARE (WNR) MEDICARE (M) PART B Oct 13, 2006 PART B [id number] [phone] NYDIA HUERTA PATIENT MEDICARE (WNR) MEDICARE (M) PART B Oct 13, 2006 PART B [id number] NYDIA HUERTA PATIENT MEDICARE (WNR) MEDICARE (M) PART A Sep 13, 2003 PART A [id number] NYDIA HUERTA UL PATIENT MEDICARE (WNR) MEDICARE (M) PART A Sep 13, 2003 PART A [id number] NYDIA HUERTA PATIENT MEDICARE (WNR) MEDICARE (M) PART A Sep 13, 2003 PART A [id number] NYDIA HUERTA PATIENT MEDICARE (WNR) MEDICARE (M) PART A Sep 13, 2003 PART A [id number] [phone] NYDIA HUERTA PATIENT Selected Encounter This section includes the information on record at [place] for the Encounter. Date/Time Encounter Type Encounter Description Reason Provider Source Apr 28, 2024 02:00 PM OFFICE O/P EST MOD 30 MIN DERMATOLOGY ICD-10-CM Z85.828 Personal history of other malignant neoplasm of skin MICHEL RODRIGUEZ Aranza Encounter Template Text not used by [place] Assessments - Encounter Diagnoses This section includes the primary and secondary diagnoses documented for the Encounter. Date/Time Primary/Secondary Diagnosis Diagnosis Name Provider Source May 08, 2024 11:59 AM PRIMARY Personal history of other malignant neoplasm of skin LAITH RODRIGUEZ [facility] [place] [facility] May 08, 2024 11:59 AM SECONDARY Hemangioma of skin and subcutaneous tissue LAITH RODRIGUEZ [facility] [facility] May 08, 2024 11:59 AM SECONDARY Inflamed seborrheic keratosis LAITH RODRIGUEZ [facility] [place] [facility] May 08, 2024 11:59 AM SECONDARY Nevus, non-neoplastic LAITH RODRIGUEZ [facility] [place] [facility] May 08, 2024 11:59 AM SECONDARY Other [facility]in [facility]ig[facility] [place] [facility] May 08, 2024 11:59 AM SECONDARY Other [facility]heic [facility] May 08, 2024 11:59 AM SECONDARY [facility]osis [facility] Plan of Treatment: Future Appointments (+ 6 months) and Future Tests (+/- 45 days) The Plan of Treatment section includes future care activities for the patient from [facility] [place] [facility]. This section includes future appointments and future orders which are active, pending or scheduled. Future Appointments This section includes appointments that were scheduled to occur 6 months from the date of the Encounter, up to a maximum of 20 appointments. The data comes from all [facility]. Appointment Date/Time Appointment Type Appointme nt Facility Name May 05, 2024 02:00 PM [facility] Jun 16, 2024 01:15 PM AMBULATORY - [facility]ICINE [place] [facility] Aug 14, 2024 03:00 PM AM[place]ULATORY - [facility] [facility] Oct 07, 2024 09:00 AM [facility] Active, Pending, and Scheduled Orders This section includes a listing of several types of active, pending, and scheduled orders, including clinic medications orders, diagnostic test orders, procedure orders and consult orders; where the start date of the order is 45 days before the date of the Encounter or 45 days after the date of theEncounter. The data comes from all [facility]. Test Date/Time Test Type Test Details Facility Name Jun 06, 2024 04:26 PM Consult Order [facility] Cons Egg Processing Supervisor's Choice [facility] Lab Results: +/- 30 days of the encounter This section includes the Chemistry and Hematology Lab Results on record with [place] for the patient. Radiology Reports and Pathology Reports are provided separately, in subsequent sections. Lab Results This section contains the Chemistry/Hematology Results that were resulted 30 days before or 30 daysafter the date of the Encounter. Date/Time Source Result Type Result - Unit Interpretation Reference Range Comment Apr 07, 2024 07:31 AM [facility] LIVER FUNCTION Specimen Type: SERUM No comment entered. Ordering Provider: BYRON BARRON Report Released Date/Time: Apr 04, 2024 05:53 PM Reporting Lab: [facility] [address] [facility] [address] Performing Lab: [address] [address] PROTEIN,TOTAL 6.8 g/dL 6.0-8.3 ALBUMIN 4.0 g/dL 3.5-5.0 ALKALINE PHOSPHATASE 118 U/L 40-150 AST 30 U/L 5-34 ALT 23 U/L BILIRUBIN, TOTAL 1.0 mg/dL 0.2-1.2 Apr 07, 2024 07:31 AM [facility] BASIC METABOLIC PANEL (fasting) Specimen Type: SERUM No comment entered. Ordering Provider: BYRON BARRON Report Released Date/Time: Apr 04, 2024 05:53 PM Reporting Lab: [facility] [address] [facility] [address] Performing Lab: [address] [address] UREA NITROGEN 22 mg/dL 7-25 GLUCOSE 93 mg/dL 65-100 SODIUM 139 mmol/L 135-145 POTASSIUM 3.9 mmol/L 3.5-5.0 CHLORIDE 102 mmol/L 100-110 CO2 26 meq/L 20-30 CREATININE, Serum 0.92 mg/dL 0.50-1.40 eGFR(CKD-EPI 2020) 82 mL/min >60 Apr 07, 2024 07:31 AM [facility] TSH Specimen Type: SERUM No comment entered. Ordering Provider: BYRON BARRON Report Released Date/Time: Apr 04, 2024 05:53 PM Reporting Lab: [facility] [address] [facility] [address] Performing Lab: [address] [address] TSH 2.34 u[IU]/mL 0.35-5.00 Apr 07, 2024 07:31 AM [facility] LIPID PANEL FASTING Specimen Type: SERUM No comment entered. Ordering Provider: BYRON BARRON Report Released Date/Time: Apr 04, 2024 05:53 PM Reporting Lab: [address] [address] Performing Lab: [address] [address] CHOLESTEROL 139 mg/dL TRIGLYCERIDE 136 mg/dL 0-150 LDL calculated 72 mg/dL 0-129 CHOL/HDL 3.5 HDL CHOLESTEROL 40 mg/dL 40-60 Apr 07, 2024 07:31 AM [facility] CBC AND DIFF (AUTO) Specimen Type: BLOOD No comment entered. Ordering Provider: BYRON BARRON Report Released Date/Time: Apr 04, 2024 05:53 PM Reporting Lab: [address] [address] Performing Lab: [address] [address] WBC 7.77 10*3/uL 4.50-11.00 RBC 4.29 10*6/uL [...] 10*3/uL 0.00-0.00 Apr 07, 2024 07:31 AM [facility] URINALYSIS CLEAN CATCH Specimen Type: URINE Comment: If Glucose = >500 and Ketones are positive, please alert the Physician. Ordering Provider: BYRON BARRON Report Released Date/Time: Apr 04, 2024 05:53 PM Reporting Lab: [address] [address] Performing Lab: [address] [address] UA COLOR Yellow Yellow UA APPEARANCE Clear [...] 16, 2023 01:30 PM [place]-TOBACCO FORMER USER [facility] Tobacco Use History This section includes a history of the smoking, or tobacco-related health factors, that were collected on or before the date of the Encounter. The data comes from the [place] facility where the Encounter took place. Date/Time Smoking Status/Tobacco Use Comment F acility Oct 16, 2023 01:30 PM [place]-TOBACCO QUIT 15 YRS OR MORE [facility] Jul 04, 2022 11:00 AM [place]-TOBACCO FORMER USER [facility] [place] [facility] Jul 04, 2022 11:00 AM [place]-TOBACCO QUIT 15 YRS OR MORE [place] [facility] [place] [facility] Jun 28, 2021 10:30 AM VA-TOBACCO FORMER USER [place] [facility] [place] [facility] Jun 28, 2021 10:30 AM [place]-TOBACCO QUIT 15 YRS OR MORE [place] [facility] [place] [facility] May 26, 2020 08:00 AM VA-TOBACCO FORMER USER [place] [facility] [place] [facility] May 26, 2020 08:00 AM VA-TOBACCO QUIT 15 YRS OR MORE [place] [facility] [place] [facility] May 23, 2018 11:21 AM [facility] Advance Directives: All historical and current Section [...] Feb 19, 2022 ADVANCE DIRECTIVE JOCE CASTORENA [facility] November 16, 2020 ADVANCE DIRECTIVE BYRON BARR[facility] Encounter Notes: All associated encounter notes This section contains the clinical notes associated to the Encounter. Date/Time Encounter Note(s) Provider Source Apr 28, 2024 02:07 PM DERMATOLOGY OUTPATIENT NOTE: LOCAL TITLE: DERMATOLOGY CLINIC NOTE STANDARD TITLE: DERMATOLOGY OUTPATIENT NOTE DATE OF NOTE: APR 28, 2024@14:07 ENTRY DATE: APR 28, 2024@14:07:13 AUTHOR: RANCHO RODRIGUEZ EXP COSIGNER: URGENCY: STATUS: COMPLETED APR 28, 2024 ALYCIA HUERTA Sep 83 PATIENT PHONE - Patient here for ANNUAL FOLLOW UP CHIEF COMPLAINT: h/o NMSC HPI: Reviewed records from last Dermatology visit: 04/30/23 reports an itchy area on back. Has been using TAC 0.1% which is effective but unable to reach area well. denies any other new/changing/bleeding/non-hea ling lesions. REVIEW OF SYSTEMS: Constitutional-neg Skin/Hair/Nails-see HPI DermHx: -BCC, nose s/p Mohs at [facility] ~2013 per (private insurance) Family Hx: Denies known h/o MM PastMedHx: Reviewed History of Sun Exposure/Sunburns: +yes, denies blistering Active Outpatient Medications (including Supplies): Active Outpatient Medications Status 1) ATORVASTATIN CALCIUM 80MG TAB TAKE ONE TABLET BY ACTIVE MOUTH AT BEDTIME 2) EZETIMIBE 10MG TAB TAKE ONE TABLET BY MOUTH ONCE ACTIVE DAILY TO LOWER CHOLESTEROL 3) HYDROCHLOROTHIAZIDE 25MG TAB TAKE ONE TABLET BY MOUTH ACTIVE ONCE DAILY 4) METOPROLOL SUCCINATE 50MG SA TAB TAKE ONE TABLET BY ACTIVE MOUTH ONCE DAILY FOR BLOOD PRESSURE/HEART 5) TRIAMCINOLONE ACETONIDE 0.1% CREAM APPLY A MODERATE ACTIVE AMOUNT TOPICALLY TWICE DAILY NEEDED FOR ITCHING Active Non-VA Medications Status 1) Non-VA ASPIRIN 81MG CHEW TAB 81MG BY MOUTH ONCE DAILY ACTIVE 6 Total Medications PHYSICAL EXAM: Lopez Skintype II General-AxOx3, NAD, pleasant, breathing unlabored, speech clear Cutaneous examination, as permitted by the patient, including scalp, face, eyes, ears, neck, chest, back, abdomen, arms, hands, fingers Pertinent findings per below: -L nasal tip with surgical scar, no abnormal pigmentation noted -Multiple scattered stuck-on appearing waxy thompson and brown papules and plaques with noted milia-like cysts, comedo-like openings and fissures/ridges on dermoscopy. -Scattered uniformly pigmented light thompson and brown jagged macules in sun distributed areas. -Scattered rothman-red dome shaped papules on chest/back with noted lacunae and septae noted on dermoscopy -Generalized xerosis -Multiple scattered symmetrical evenly pigmented brown macules and papules, most under 6mm. Diagnosis/Plan: #Personal History of Non-Melanotic Skin Cancer: -No evidence of recurrence at surgical site -Full Body Skin Exam advised at least yearly -Photoprotection discussed -Patient instructed to follow up in clinic for any concerning lesions or changes #Seborrheic Keratoses, Inflamed -The was educated regarding the benign nature, but given irritation/pain, destructive treatment requested. -Liquid nitrogen cryotherapy performed as a destructive method. -Liquid nitrogen (2 cycles x 5-8sec) x #2 lesions performed. -Side effects including but not limited to redness, crusting, swelling, blistering, scarring, and hypopigmentation discussed. -Wound care discussed in length. -CONTINUE topical triamcinolone 0.1% cream as prescribed prn itch. -Lotion applicator mailed per request #Seborrheic Keratoses: -The was educated regarding the benign nature, but to return with any growth, change or symptoms in area. #Nevi: -ABCDEs of melanotic lesions discussed, self examinations encouraged -No concerning lesions today on examination -A full body skin check is recommended yearly -Photoprotection discussed. #Solar Lentigines -The was educated regarding the benign nature and relation to chronic sun exposure, but to return with any growth, change or symptoms in area. -Photoprotection discussed. #Rothman Angiomas: -The was educated regarding the benign nature, but to return with any growth, change or symptoms in area. #Xerosis -Advised liberal emollients RTC 6-12m, sooner PRN * [place] educated to RTC young if any new, changing, symptomatic lesions. * Education on sun protection and avoidance strategies was provided. * Differential diagnosis, prescription options and risks/benefits were discussed with the patient, who consented to treatment plan. * consented to photography for documentation if indicated. * A dermatoscope was used during the exam. * NUB = Neoplasm of Uncertain Behavior of Skin * NMSC = Nonmelanoma Skin Cancer * AK = Actinic Keratosis ------TIME ESTIMATION To include but not limied to: -Review of medical records -Time spent with patient including obtaining history, physical exam, shared decision making, procedures and counseling -Post visit documentation; HPI and physical exam findings, clinical researching, medical decision making, medication and lab ordering Total estimated time = 30 min ---- Medication Reconciliation: Outpatient: Has the patient been taking medications as documented in the EMLR? YES: The patient has been taking medications as documented in the EMLR. Essential Medication List for Review used to complete this medication reconciliation. INCLUDED IN THIS LIST: Alphabetical list of active outpatient prescriptions dispensed from this [place] (local) and dispensed from another [place] or [facility] facility (remote) as well as inpatient orders (local, pending and active), local clinic medications, locally documented non-VA medications, and local prescriptions that have or been discontinued in the past 90 days. - All changes in medications, including all non-VA/Herbal/OTC medications were entered into CPRS. - If there were any medications the patient should no longer take, they were discontinued. - The patient/caregiver was instructed to update this list, discard old lists, and take this list to the next appointment, whether with a [place] or non-[place] provider. JLV Link Data on this list may not be complete. Please check Zanbato[employer]. Allergies/ADRs (Tool #5) FACILITY ALLERGY/ADR -------- [facility] PROCAINE [place] [facility] Med [facility] (Tool #1) INCLUDED IN THIS LIST: Alphabetical list of active outpatient prescriptions dispensed from this [place] (local) and dispensed from another [place] or [facility] facility (remote) as well as inpatient orders (local pending and active), local clinic medications, locally documented non-VA medications, and local prescriptions that have or been discontinued in the past 90 days. Non-VA Meds Last Documented On: Apr 09, 2022 NOTE The display of VA prescriptions dispensed from another [place] or [facility] facility (remote) is limited to active outpatient prescription entries matched to National Drug File at the originating site and may not include some items such as investigational drugs, compounds, etc. NOT INCLUDED IN THIS LIST: Medications self-entered by the patient into personal health records (i.e. Scaleform) are NOT included in this list. Non-VA medications documented outside this [place], remote inpatient orders (regardless of status) and remote clinic medications are NOT included in this list. The patient and provider must always discuss medications the patient is taking, regardless of where the medication was dispensed or obtained. Non-VA ASPIRIN 81MG CHEW TAB CHEW ONE TABLET BY MOUTH ONCE DAILY Patient wants to buy from Non-VA pharmacy. OUTPT ATORVASTATIN CALCIUM 80MG TAB (Status = Active) TAKE ONE TABLET BY MOUTH AT BEDTIME Rx# [id number] Last Released: 03/19/24 Qty/Days Supply: Rx Expiration Date: 06/19/24 Refills Remainin OUTPT CEPHALEXIN 500MG CAP (Status = ) TAKE ONE CAPSULE BY MOUTH EVERY 8 HOURS FOR INFECTION Rx# [id number] Last Released: 03/05/24 Qty/Days Supply: 01/02 Rx Expiration Date: 04/04/24 Refills Remainin Indication: FOR INFECTION CAUSED BY BACTERIA OUTPT EZETIMIBE 10MG TAB (Status = Active) TAKE ONE TABLET BY MOUTH ONCE DAILY TO LOWER CHOLESTEROL Rx# [id number] Last Released: 03/19/24 Qty/Days Supply: Rx Expiration Date: 06/19/24 Refills Remainin OUTPT FLUTICAS 250/SALMETEROL 50 INHL DISK 60 (Status = ) INHALE 1 PUFF BY MOUTH TWICE DAILY - RINSE MOUTH AFTER USE Rx# [id number] Last Released: 05/31/23 Qty/Days Supply: Rx Expiration Date: 03/07/24 Refills Remainin Indication: FOR BRONCHOSPASM PREVENTION WITH COPD OUTPT FLUTICASONE PROP 50MCG 120D NASAL INHL (Status = ) INSTILL 1 SPRAY INTO EACH NOSTRIL ONCE DAILY NEEDED FOR NASAL IRRITATION/INFLAMMATION Rx# [id number] Last Released: 05/31/23 Qty/Days Supply: 08/13 Rx Expiration Date: 04/15/24 Refills Remainin Indication: FOR NASAL IRRITATION/INFLAMMATION OUTPT HYDROCHLOROTHIAZIDE 25MG TAB (Status = Active) TAKE ONE TABLET BY MOUTH ONCE DAILY Rx# [id number] Last Released: 03/31/24 Qty Supply: Rx Expiration Date: 06/19/24 Refills Remainin OUTPT METOPROLOL SUCCINATE 50MG SA TAB (Status = Active) TAKE ONE TABLET BY MOUTH ONCE DAILY FOR BLOOD PRESSURE/HEART Rx# [id number] Last Released: 03/19/24 Qty/Days Supply: Rx Expiration Date: 06/19/24 Refills Remainin OUTPT TRIAMCINOLONE ACETONIDE 0.1% CREAM (Status = Active) APPLY A MODERATE AMOUNT TOPICALLY TWICE DAILY NEEDED FOR ITCHING Rx# [id number] Last Released: 10/28/23 Qty/Days Supply: Rx Expiration Date: 10/24/24 Refills Remainin Indication: FOR ITCHING SUPPLIES /eleanor/ RANCHO RODRIGUEZ DNP, DATA PROCESSING AUDITOR-C NURSE PRACTITIONER Signed: 04/28/2024 14:32 RANCHO RODRIGUEZ [facility]
--- OUTSIDE RECORDS SUMMARY | 2024-06-23 14:02 | XMS_ITS ---
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 [facility] [place] Address [address] [place] [address] Care Team Providers Care In Home Sales Consultant Name Role Phone JOSUE SIMMONS Primary Care [...] Dec 19, 2007 MEDICAR E SUPPLEM E [id number] NYDIA HUERTA UL PATIENT [employer] MEDICARE SUPPLEMEN YORDAN Dec 19, 2007 MEDICAR E SUPPLEM E [id number] NYDIA HUERTA UL PATIENT [employer] [place] MEDICARE SUPPLEMEN YORDAN BANKE RS Dec 19, 2007 NONE [id number] NYDIA HUERTA UL PATIENT MEDICARE (WNR) MEDICARE (M) PART B Oct 13, 2006 PART B [id number] NYDIA HUERTA UL PATIENT MEDICARE (WNR) MEDICARE (M) PART B Oct 13, 2006 PART B [id number] NYDIA HUERTA UL PATIENT MEDICARE (WNR) MEDICARE (M) PART B Oct 13, 2006 PART B [id number] NYDIA HUERTA PATIENT MEDICARE (WNR) MEDICARE (M) PART B Oct 13, 2006 PART B [id number] NYDIA HUERTA PATIENT MEDICARE (WNR) MEDICARE (M) PART A Sep 13, 2003 PART A [id number] NYDIA HUERTA PATIENT MEDICARE (WNR) MEDICARE (M) PART A Sep 13, 2003 PART A [id number] [phone] NYDIA HUERTA PATIENT MEDICARE (WNR) MEDICARE (M) PART A Sep 13, 2003 PART A [id number] NYDIA HUERTA PATIENT MEDICARE (WNR) MEDICARE (M) PART A Sep 13, 2003 PART A [id number] NYDIA HUERTA PATIENT Selected Encounter This section includes the information on record at [place] for the Encounter. Date/Time Encounter Type Encounter Description Reason Pro vider Source Apr 23, 2024 03:51 PM Outpatient Encounter PRIMARY CARE/MEDICINE IHE Encounter Template Text not used by NE Plan of Treatment: Future Appointments (+ 6 months) and Future Tests (+/- 45 days) The Plan of Treatment section includes future care activities for the patient from all [place] treatmentfacilities. This section includes future appointments and future orders which are active, pending or scheduled. Future Appointments This section includes appointments that were scheduled to occur 6 months from the date of the Encounter, up to a maximum of 20 appointments. The data comes from all [place] treatment facilities. Appointment Date/Time Appointment Type Appointme nt Facility Name Apr 28, 2024 02:00 PM AMBULATORY - MEDICINE [place] [facility] [place] [facility] May 05, 2024 02:00 PM AMBULATORY - [facility] MEDICIN E [place] [facility] [place] [facility] Jun 16, 2024 01:15 PM AMBULATORY - MEDICINE [place] [facility] [place] [facility] Aug 14, 2024 03:00 PM AMBULATORY - MEDICINE [place] [facility] [place] [facility] Oct 07, 2024 09:00 AM AMBULATORY - MEDICINE [facility] Active, Pending, and Scheduled Orders This section includes a listing of several types of active, pending, and scheduled orders, including clinic medications orders, diagnostic test orders, procedure orders and consult orders; where the start date of the order is 45 days before the date of the Encounter or 45 days after the date of theEncounter. The data comes from all [place] treatment facilities. Test Date/Time Test Type Test Details Facility Name Jun 06, 2024 04:26 PM Consult Order [facility] Cons Physics Professor's Choice [facility] Lab Results: +/- 30 days of the encounter This section includes the Chemistry and Hematology Lab Results on record with [place] for the patient. Radiology Reports and Pathology Reports are provided separately, in subsequent sections. Lab Results This section contains the Chemistry/Hematology Results that were resulted 30 days before or 30 daysafter the date of the Encounter. Date/Time Source Result Type Result - Unit Interpretation Reference Range Comment Apr 07, 2024 07:31 AM [facility] LIVER FUNCTION Specimen Type: SERUM No comment entered. Ordering Provider: JOSUE SIMMONS Report Released Date/Time: Apr 04, 2024 05:53 PM Reporting Lab: [address] [address] Performing Lab: [address] [address] PROTEIN,TOTAL 6.8 g/dL 6.0-8.3 ALBUMIN 4.0 g/dL 3.5-5.0 ALKALINE PHOSPHATASE 118 U/L 40-150 AST 30 U/L 5-34 ALT 23 U/L BILIRUBIN, TOTAL 1.0 mg/dL 0.2-1.2 Apr 07, 2024 07:31 AM [facility] BASIC METABOLIC PANEL (fasting) Specimen Type: SERUM No comment entered. Ordering Provider: JOSUE SIMMONS Report Released Date/Time: Apr 04, 2024 05:53 PM Reporting Lab: [address] [address] Performing Lab: [address] [address] UREA NITROGEN 22 mg/dL 7-25 GLUCOSE 93 mg/dL 65-100 SODIUM 139 mmol/L 135-145 POTASSIUM 3.9 mmol/L 3.5-5.0 CHLORIDE 102 mmol/L 100-110 CO2 26 meq/L 20-30 CREATININE, Serum 0.92 mg/dL 0.50-1.40 eGFR(CKD-EPI 2020) 82 mL/min >60 Apr 07, 2024 07:31 AM [facility] TSH Specimen Type: SERUM No comment entered. Ordering Provider: JOSUE SIMMONS Report Released Date/Time: Apr 04, 2024 05:53 PM Reporting Lab: [address] [address] Performing Lab: [address] [address] TSH 2.34 u[IU]/mL 0.35-5.00 Apr 07, 2024 07:31 AM [facility] LIPID PANEL FASTING Specimen Type: SERUM No comment entered. Ordering Provider: JOSUE SIMMONS Report Released Date/Time: Apr 04, 2024 05:53 PM Reporting Lab: [address] [address] Performing Lab: [address] [address] CHOLESTEROL 139 mg/dL TRIGLYCERIDE 136 mg/dL 0-150 LDL calculated 72 mg/dL 0-129 CHOL/HDL 3.5 HDL CHOLESTEROL 40 mg/dL 40-60 Apr 07, 2024 07:31 AM [facility] CBC AND DIFF (AUTO) Specimen Type: BLOOD No comment entered. Ordering Provider: JOSUE SIMMONS Report Released Date/Time: Apr 04, 2024 05:53 PM Reporting Lab: [address] [address] Performing Lab: [address] [address] WBC 7.77 10*3/uL 4.50-11.00 RBC 4.29 10*6/uL [...] 10*3/uL 0.00-0.00 Apr 07, 2024 07:31 AM [facility] URINALYSIS CLEAN CATCH Specimen Type: URINE Comment: If Glucose = >500 and Ketones are positive, please alert the Physician. Ordering Provider: JOSUE SIMMONS Report Released Date/Time: Apr 04, 2024 05:53 PM Reporting Lab: [address] [address] Performing Lab: [address] [address] UA COLOR Yellow Yellow UA APPEARANCE Clear [...] and tobacco- related health factors from the [place] facility where the Encounter took place. Current Smoking Status This section includes the most current smoking, or tobacco-related health factor, from the [place] facility where the Encounter took place. Date/Time Current Smoking Status Comment Facil ity Oct 16, 2023 01:30 PM VA-TOBACCO FORMER USER [place] [facility] [place] [facility] Tobacco Use History This section includes a history of the smoking, or tobacco-related health factors, that were collected on or before the date of the Encounter. The data comes from the [place] facility where the Encounter took place. Date/Time Smoking Status/Tobacco Use Comment F acility Oct 16, 2023 01:30 PM VA-TOBACCO QUIT 15 YRS OR MORE [place] [facility] [place] [facility] Jul 04, 2022 11:00 AM VA-TOBACCO FORMER USER [place] [facility] [place] [facility] Jul 04, 2022 11:00 AM VA-TOBACCO QUIT 15 YRS OR MORE [place] [facility] [place] [facility] Jun 28, 2021 10:30 AM VA-TOBACCO FORMER USER [place] [facility] [place] [facility] Jun 28, 2021 10:30 AM NE-TOBACCO QUIT 15 YRS OR MORE [place] [facility] [place] [facility] May 26, 2020 08:00 AM VA-TOBACCO FORMER USER [place] [facility] [place] [facility] May 26, 2020 08:00 AM VA-TOBACCO QUIT 15 YRS OR MORE [place] [facility] [place] [facility] May 23, 2018 11:21 AM VA-TOBACCO NEVER USED [place] [facility] [place] [facility] Advance Directives: All historical and current Section Date Range: From patient's date of to the date document was created. This section includes ALL of a patient's completed or amended [place] Advance and Rescinded Directives. The entries below indicate that a directive exists for the patient, but an actual copy is not included with this document. The data comes from all [place] facilities. Date Advance Directives Provider Source Feb 19, 2022 ADVANCE DIRECT[facility] November 16, 2020 ADVANCE DIRECTIVE JOSUE SIMMONS [facility] Encounter Notes: All associated encounter notes This section contains the clinical notes associated to the Encounter. Date/Time Encounter Note(s) Provider Source Apr 23, 2024 03:51 PM NONVA CONSULT: LOCAL TITLE: MD/OUTSIDE CONSULT REPORT SUMMARY STANDARD TITLE: NONVA CONSULT DATE OF NOTE: APR 23, 2024@15:51 ENTRY DATE: APR 23, 2024@15:51:52 AUTHOR: JOSUE SIMMONS EXP COSIGNER: URGENCY: STATUS: COMPLETED 04-14-24 office visit Demetrius [facility] Chief complaint: Postop visit Left ankle fibula ORIF closed fracture 01-21-[address] Candis Valdez changed to splint Plan: Continue physical therapy Follow-up 2 months /eleanor/ Josue Simmons MD Staff Physician Signed: 04/23/2024 15:52 JOSUE SIMMONS [facility]
--- OUTSIDE RECORDS SUMMARY | 2024-06-23 14:02 | XMS_ITS ---
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 Address [address] [place] [address] Care Team Providers Care Electric Container Tester Name Role Phone BYRON BARRON Primary Care [...] Dec 19, 2007 MEDICAR E SUPPLEM E [id number] NYDIA HUERTA UL PATIENT [employer] MEDICARE SUPPLEMEN YORDAN Dec 19, 2007 MEDICAR E SUPPLEM E [id number] [phone] NYDIA HUERTA UL PATIENT [employer] [place] MEDICARE SUPPLEMEN YORDAN BANKE RS Dec 19, 2007 NONE [id number] [phone] NYDIA HUERTA UL PATIENT MEDICARE (WNR) MEDICARE (M) PART B Oct 13, 2006 PART B [id number] [phone] NYDIA HUERTA UL PATIENT MEDICARE (WNR) MEDICARE (M) PART B Oct 13, 2006 PART B [id number] [place] UL PATIENT MEDICARE (WNR) MEDICARE (M) PART B Oct 13, 2006 PART B [id number] NYDIA HUERTA PATIENT MEDICARE (WNR) MEDICARE (M) PART B Oct 13, 2006 PART B [id number] NYDIA HUERTA PATIENT MEDICARE (WNR) MEDICARE (M) PART A Sep 13, 2003 PART A [id number] NYDIA HUERTA PATIENT MEDICARE (WNR) MEDICARE (M) PART A Sep 13, 2003 PART A [id number] NYDIA HUERTA PATIENT MEDICARE (WNR) MEDICARE (M) PART A Sep 13, 2003 PART A [id number] [phone] NYDIA HUERTA PATIENT MEDICARE (WNR) MEDICARE (M) PART A Sep 13, 2003 PART A [id number] [phone] NYDIA HUERTA PATIENT Selected Encounter This section includes the information on record at [place] for the Encounter. Date/Time Encounter Type Encounter Description Reason Pro vider Source Jan 13, 2024 12:00 AM Outpatient Encounter EVENT (HISTORICAL) IHE Encounter Template Text not used by [place] Plan of Treatment: Future Appointments (+ 6 months) and Future Tests (+/- 45 days) The Plan of Treatment section includes future care activities for the patient from all [place] treatmentfacilities. This section includes future appointments and future orders which are active, pending or scheduled. Future Appointments This section includes appointments that were scheduled to occur 6 months from the date of the Encounter, up to a maximum of 20 appointments. The data comes from all [place] treatment facilities. Appointment Date/Time Appointment Type Appointme nt Facility Name Jan 21, 2024 08:00 AM AMBULATORY - MEDICINE [place] [facility] [place] [facility] Feb 03, 2024 01:30 PM AMBULATORY - REHAB MEDICIN E [place] [facility] [place] [facility] Mar 05, 2024 08:00 AM AMBULATORY - MEDICINE [place] [facility] [place] [facility] Mar 05, 2024 09:00 AM AMBULATORY - MEDICINE [place] [facility] [place] [facility] Mar 06, 2024 08:00 AM AMBULATORY - MEDICINE [place] [facility] [place] [facility] Mar 24, 2024 02:00 PM AMBULATORY - MEDICINE [place] [facility] [place] [facility] Mar 31, 2024 09:30 AM AMBULATORY - REHAB MEDICIN E [facility] [place] [facility] Apr 13, 2024 01:30 PM AMBULATORY - MEDICINE [place] [facility] [place] [facility] Apr 28, 2024 02:00 PM AMBULATORY - MEDICINE [place] [facility] [place] [facility] May 05, 2024 02:00 PM AMBULATORY - REHAB MEDICIN E [facility] [place] [facility] Jun 16, 2024 01:15 PM AMBULATORY - MEDICINE [place] [facility] [place] [facility] Social History: Smoking Status (Most current) and Tobacco Use (All prior to encounter date) This section includes the most current, and the historical, smoking and tobacco- related health factors from the [place] facility where the Encounter took place. Current Smoking Status This section includes the most current smoking, or tobacco-related health factor, from the [place] facility where the Encounter took place. Date/Time Current Smoking Status Comment Facil ity Oct 16, 2023 01:30 PM VA-TOBACCO FORMER USER [place] [facility] [place] [facility] Tobacco Use History This section includes a history of the smoking, or tobacco-related health factors, that were collected on or before the date of the Encounter. The data comes from the [place] facility where the Encounter took place. Date/Time Smoking Status/Tobacco Use Comment F acility Oct 16, 2023 01:30 PM VA-TOBACCO QUIT 15 YRS OR MORE [place] [facility] [place] [facility] Jul 04, 2022 11:00 AM VA-TOBACCO FORMER USER [place] [facility] [place] [facility] Jul 04, 2022 11:00 AM VA-TOBACCO QUIT 15 YRS OR MORE [place] [facility] [place] [facility] Jun 28, 2021 10:30 AM VA-TOBACCO FORMER USER [place] [facility] [place] [facility] Jun 28, 2021 10:30 AM VA-TOBACCO QUIT 15 YRS OR MORE [facility] [place] [facility] May 26, 2020 08:00 AM VA-TOBACCO FORMER USER [place] [facility] [place] [facility] May 26, 2020 08:00 AM VA-TOBACCO QUIT 15 YRS OR MORE [facility] May 23, 2018 11:21 AM [place]-TOBACCO NEVER USED [facility] Advance Directives: All historical and current Section Date Range: From patient's date of to the date document was created. This section includes ALL of a patient's completed or amended [place] Advance and Rescinded Directives. The entries below indicate that a directive exists for the patient, but an actual copy is not included with this document. The data comes from all [place] facilities. Date Advance Directives Provider Source Feb 19, 2022 ADVANCE DIRECTIVE JOCE CASTORENA [facility] November 16, 2020 ADVANCE DIRECTIVE BYRON BARRON [facility] Encounter Notes: All associated encounter notes This section contains the clinical notes associated to the Encounter. Date/Time Encounter Note(s) Provider Source Jan 13, 2024 12:00 AM NONVA NOTE: LOCAL TITLE: NON-VA MEDICAL RECORD SUMMARY STANDARD TITLE: NONVA NOTE DATE OF NOTE: JAN 13, 2024 ENTRY DATE: APR 22, 2024@12:52:29 AUTHOR: SHANNON PATTERSON EXP COSIGNER: URGENCY: STATUS: COMPLETED VistA Imaging - Scanned Document SCANNED DOCUMENT SIGNATURE NOT REQUIRED Electronically Filed: 04/22/2024 by: SHANNON GARDUNO [facility]
--- OUTSIDE RECORDS SUMMARY | 2024-06-23 14:02 | XMS_ITS ---
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 [place] Organization [facility] [place] [place] Address [address] [place] [id number] Care Team Providers Care Corporate Executive Chef Name Role Phone BYRON BARRON Primary Care [...] Dec 19, 2007 MEDICAR E SUPPLEM E [id number] [phone] NYDIA HUERTA UL PATIENT [employer] MEDICARE SUPPLEMEN YORDAN Dec 19, 2007 MEDICAR E SUPPLEM E [id number] NYDIA HUERTA UL PATIENT [employer] [place] MEDICARE SUPPLEMEN YORDAN BANKE RS Dec 19, 2007 NONE [id number] NYDAI HUERTA UL PATIENT MEDICARE (WNR) MEDICARE (M) PART B Oct 13, 2006 PART B [id number] NYDIA HUERTA UL PATIENT MEDICARE (WNR) MEDICARE (M) PART B Oct 13, 2006 PART B [id number] [place] UL PATIENT MEDICARE (WNR) MEDICARE (M) PART B Oct 13, 2006 PART B [id number] NYDIA HUERTA PATIENT MEDICARE (WNR) MEDICARE (M) PART B Oct 13, 2006 PART B [id number] NYDIA HUERTA PATIENT MEDICARE (WNR) MEDICARE (M) PART A Sep 13, 2003 PART A [id number] NYDIA HUERTA PATIENT MEDICARE (WNR) MEDICARE (M) PART A Sep 13, 2003 PART A [id number] NYDIA HUERTA PATIENT MEDICARE (WNR) MEDICARE (M) PART A Sep 13, 2003 PART A [id number] [phone] NYDIA HUERTA PATIENT MEDICARE (WNR) MEDICARE (M) PART A Sep 13, 2003 PART A [id number] NYDIA HUERTA PATIENT Selected Encounter This section includes the information on record at CT for the Encounter. Date/Time Encounter Type Encounter Description Reason Pro vider Source Apr 09, 2024 02:18 PM Outpatient Encounter PRIMARY CARE/MEDICINE IHE Encounter Template Text not used by CT Plan of Treatment: Future Appointments (+ 6 months) and Future Tests (+/- 45 days) The Plan of Treatment section includes future care activities for the patient from all CT treatmentfacilities. This section includes future appointments and future orders which are active, pending or scheduled. Future Appointments This section includes appointments that were scheduled to occur 6 months from the date of the Encounter, up to a maximum of 20 appointments. The data comes from all CT treatment facilities. Appointment Date/Time Appointment Type Appointme nt Facility Name Apr 13, 2024 01:30 PM AMBULATORY - MEDICINE [facility] Apr 28, 2024 02:00 PM AMBULATORY - MEDICINE [facility] May 05, 2024 02:00 PM [facility]ULAT[facility] Jun 16, 2024 01:15 PM AMBULATORY - MEDICINE [facility] Aug 14, 2024 03:00 PM AMBULATORY - MEDICINE [facility] Oct 07, 2024 09:00 AM AMBULATORY - MEDICINE [facility] Lab Results: +/- 30 days of the encounter This section includes the Chemistry and Hematology Lab Results on record with CT for the patient. Radiology Reports and Pathology Reports are provided separately, in subsequent sections. Lab Results This section contains the Chemistry/Hematology Results that were resulted 30 days before or 30 daysafter the date of the Encounter. Date/Time Source Result Type Result - Unit Interpretation Reference Range Comment Apr 07, 2024 07:31 AM [facility] LIVER FUNCTION Specimen Type: SERUM No comment entered. Ordering Provider: BYRON ABRRON Report Released Date/Time: Apr 04, 2024 05:53 PM Reporting Lab: [address] [address] Performing Lab: [address] [address] PROTEIN,TOTAL 6.8 g/dL 6.0-8.3 ALBUMIN 4.0 g/dL 3.5-5.0 ALKALINE PHOSPHATASE 118 U/L 40-150 AST 30 U/L 5-34 ALT 23 U/L BILIRUBIN, TOTAL 1.0 mg/dL 0.2-1.2 Apr 07, 2024 07:31 AM [facility] BASIC METABOLIC PANEL (fasting) Specimen Type: SERUM No comment entered. Ordering Provider: BYRON BARRON Report Released Date/Time: Apr 04, 2024 05:53 PM Reporting Lab: [address] [address] Performing Lab: [address] [address] UREA NITROGEN 22 mg/dL 7-25 GLUCOSE 93 mg/dL 65-100 SODIUM 139 mmol/L 135-145 POTASSIUM 3.9 mmol/L 3.5-5.0 CHLORIDE 102 mmol/L 100-110 CO2 26 meq/L 20-30 CREATININE, Serum 0.92 mg/dL 0.50-1.40 eGFR(CKD-EPI 2020) 82 mL/min >60 Apr 07, 2024 07:31 AM [facility] TSH Specimen Type: SERUM No comment entered. Ordering Provider: BYRON BARRON Report Released Date/Time: Apr 04, 2024 05:53 PM Reporting Lab: [address] [address] Performing Lab: [address] [address] TSH 2.34 u[IU]/mL 0.35-5.00 Apr 07, 2024 07:31 AM [facility] LIPID PANEL FASTING Specimen Type: SERUM No comment entered. Ordering Provider: BYRON BARRON Report Released Date/Time: Apr 04, 2024 05:53 PM Reporting Lab: [address] [address] Performing Lab: [address] [address] CHOLESTEROL 139 mg/dL TRIGLYCERIDE 136 mg/dL 0-150 LDL calculated 72 mg/dL 0-129 CHOL/HDL 3.5 HDL CHOLESTEROL 40 mg/dL 40-60 Apr 07, 2024 07:31 AM [facility] CBC AND DIFF (AUTO) Specimen Type: BLOOD No comment entered. Ordering Provider: BYRON BARRON Report Released Date/Time: Apr 04, 2024 05:53 PM Reporting Lab: [address] [address] Performing Lab: [address] [address] WBC 7.77 10*3/uL 4.50-11.00 RBC 4.29 10*6/uL [...] 10*3/uL 0.00-0.00 Apr 07, 2024 07:31 AM [facility] URINALYSIS CLEAN CATCH Specimen Type: URINE Comment: If Glucose = >500 and Ketones are positive, please alert the Physician. Ordering Provider: BYRON BARRON Report Released Date/Time: Apr 04, 2024 05:53 PM Reporting Lab: [address] [address] Performing Lab: [address] [address] UA COLOR Yellow Yellow UA APPEARANCE Clear [...] and tobacco- related health factors from the CT facility where the Encounter took place. Current Smoking Status This section includes the most current smoking, or tobacco-related health factor, from the [place] facility where the Encounter took place. Date/Time Current Smoking Status Comment Facil ity Oct 16, 2023 01:30 PM VA-TOBACCO FORMER USER [facility] Tobacco Use History This section includes a history of the smoking, or tobacco-related health factors, that were collected on or before the date of the Encounter. The data comes from the [place] facility where the Encounter took place. Date/Time Smoking Status/Tobacco Use Comment F acility Oct 16, 2023 01:30 PM VA-TOBACCO QUIT [address] [facility] Jul 04, 2022 11:00 AM VA-TOBACCO FORMER USER [facility] Jul 04, 2022 11:00 AM VA-TOBACCO QUIT [address] [facility] Jun 28, 2021 10:30 AM VA-TOBACCO FORMER USER [facility] Jun 28, 2021 10:30 AM VA-TOBACCO QUIT [address] [facility] May 26, 2020 08:00 AM VA-TOBACCO FORMER USER [facility] May 26, 2020 08:00 AM VA-TOBACCO QUIT [address] [facility] May 23, 2018 11:21 AM [facility]BACCO [facility] Advance Directives: All historical and current Section Date Range: From patient's date of to the date document was created. This section includes ALL of a patient's completed or amended CT Advance and Rescinded Directives. The entries below indicate that a directive exists for the patient, but an actual copy is not included with this document. The data comes from all CT facilities. Date Advance Directives Provider Source Feb 19, 2022 ADVANCE DIRECTIVE JOCE CASTORENA [facility] November 16, 2020 ADVANCE DIRECTIVE BYRON BARRON [facility] Encounter Notes: All associated encounter notes This section contains the clinical notes associated to the Encounter. Date/Time Encounter Note(s) Provider Source Apr 09, 2024 02:18 PM ADMINISTRATIVE NOTE: LOCAL TITLE: ADMINISTRATIVE NOTE STANDARD TITLE: ADMINISTRATIVE NOTE DATE OF NOTE: APR 09, 2024@14:18 ENTRY DATE: APR 09, 2024@14:18:35 AUTHOR: JOCE CASTORENA EXP COSIGNER: URGENCY: STATUS: COMPLETED Reminder call for your upcoming Primary Care Appointment and the need for preparations prior to your upcoming appt. [X] Location in [address] [ ] Fasting labs [ ] Lab work within 30 days [ ] Urine [ ] No Preparation Action taken: [ ] Called , left voice message [ ] Called , unable to leave voice mail [X] Spoke to /healthcare risk control consultant to remind them of upcoming appt/preparations Upcoming Appointments: 04/13/2024 13:30 CWM/NO/PACT 2 04/28/2024 14:00 CWM/NO/DERMATOLOGY [employer] 05/05/2024 14:00 CWM NO AUDIO HAF B 08/14/2024 15:00 NHM/OPTOMETRY/CALDERON/ /es/ JOCE CASTORENA AMSA Signed: 04/09/2024 14:[address] [facility]
--- OUTSIDE RECORDS SUMMARY | 2024-06-23 14:02 | XMS_ITS ---
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 [place] Organization [facility] [place] Address [address] [place] [address] Care Team Providers Care Hydrate Thickener Operator Name Role Phone JOSUE SIMMONS Primary [...] Dec 19, 2007 MEDICAR E SUPPLEM E [id number] [phone] NYDIA HUERTA PATIENT [employer] MEDICARE SUPPLEMEN YORDAN Dec 19, 2007 MEDICAR E SUPPLEM E [id number] [phone] NYDIA HUERTA UL PATIENT [employer] [place] MEDICARE SUPPLEMEN YORDAN BANKE RS Dec 19, 2007 NONE [id number] [phone] NYDIA HUERTA PATIENT MEDICARE (WNR) MEDICARE (M) PART B Oct 13, 2006 PART B [id number] NYDIA HUERTA UL PATIENT MEDICARE (WNR) MEDICARE (M) PART B Oct 13, 2006 PART B [id number] NYDIA HUERTA PATIENT MEDICARE (WNR) MEDICARE (M) PART B Oct 13, 2006 PART B [id number] [phone] NYDIA HUERTA PATIENT MEDICARE (WNR) MEDICARE (M) PART B Oct 13, 2006 PART B [id number] NYDIA HUERTA PATIENT MEDICARE (WNR) MEDICARE (M) PART A Sep 13, 2003 PART A [id number] NYDIA HUERTA PATIENT MEDICARE (WNR) MEDICARE (M) PART A Sep 13, 2003 PART A [id number] NYDIA HUERTA PATIENT MEDICARE (WNR) MEDICARE (M) PART A Sep 13, 2003 PART A [id number] [phone] NYDIA HUERTA PATIENT MEDICARE (WNR) MEDICARE (M) PART A Sep 13, 2003 PART A [id number] NYDIA HUERTA PATIENT Selected Encounter This section includes the information on record at [place] for the Encounter. Date/Time Encounter Type Encounter Description Reason Provider Source Apr 13, 2024 01:30 PM OFFICE O/P EST LOW 20 MIN PRIMARY CARE/MEDICINE ICD-10-CM I10 Essential (primary) hypertension JOSUE SIMMONS [facility] Encounter Template Text not used by [place] Assessments - Encounter Diagnoses This section includes the primary and secondary diagnoses documented for the Encounter. Date/Time Primary/Secondary Diagnosis Diagnosis Name Provider Source Apr 26, 2024 07:52 AM PRIMARY Essential (primary) hypertension JOSUE SIMMONS [facility] [place] [facility] Apr 26, 2024 07:52 AM SECONDARY Encounter for immunization [facility] Plan of Treatment: Future Appointments (+ 6 months) and Future Tests (+/- 45 days) The Plan of Treatment section includes future care activities for the patient from all [place] treatmentfacilities. This section includes future appointments and future orders which are active, pending or scheduled. Future Appointments This section includes appointments that were scheduled to occur 6 months from the date of the Encounter, up to a maximum of 20 appointments. The data comes from all [place] treatment facilities. Appointment Date/Time Appointment Type Appointme nt Facility Name Apr 28, 2024 02:00 PM AMBULATORY - MEDICINE [facility] [place] [facility] May 05, 2024 02:00 PM AMBULATORY - REHAB MEDICIN E [facility] [place] [facility] Jun 16, 2024 01:15 PM AMBULATORY - MEDICINE [facility] [place] [facility] Aug 14, 2024 03:00 PM AMBULATORY - MEDICINE [facility] [place] [facility] Oct 07, 2024 09:00 AM [facility] Lab Results: +/- 30 days of the encounter This section includes the Chemistry and Hematology Lab Results on record with [place] for the patient. Radiology Reports and Pathology Reports are provided separately, in subsequent sections. Lab Results This section contains the Chemistry/Hematology Results that were resulted 30 days before or 30 daysafter the date of the Encounter. Date/Time Source Result Type Result - Unit Interpretation Reference Range Comment Apr 07, 2024 07:31 AM [facility] BASIC METABOLIC PANEL (fasting) Specimen Type: SERUM No comment entered. Ordering Provider: JOSUE SIMMONS Report Released Date/Time: Apr 04, 2024 05:53 PM Reporting Lab: [facility] [address] [address] Performing Lab: [address] [address] UREA NITROGEN 22 mg/dL 7-25 GLUCOSE 93 mg/dL 65-100 SODIUM 139 mmol/L 135-145 POTASSIUM 3.9 mmol/L 3.5-5.0 CHLORIDE 102 mmol/L 100-110 CO2 26 meq/L 20-30 CREATININE, Serum 0.92 mg/dL 0.50-1.40 eGFR(CKD-EPI 2020) 82 mL/min >60 Apr 07, 2024 07:31 AM [facility] LIVER FUNCTION Specimen Type: SERUM No comment entered. Ordering Provider: JOSUE SIMMONS Report Released Date/Time: Apr 04, 2024 05:53 PM Reporting Lab: [address] [address] Performing Lab: [address] [address] PROTEIN,TOTAL 6.8 g/dL 6.0-8.3 ALBUMIN 4.0 g/dL 3.5-5.0 ALKALINE PHOSPHATASE 118 U/L 40-150 AST 30 U/L 5-34 ALT 23 U/L BILIRUBIN, TOTAL 1.0 mg/dL 0.2-1.2 Apr 07, 2024 07:31 AM [facility] LIPID PANEL FASTING Specimen Type: SERUM No comment entered. Ordering Provider: JOSUE SIMMONS Report Released Date/Time: Apr 04, 2024 05:53 PM Reporting Lab: [facility] [address] [facility] [address] Performing Lab: [address] [address] CHOLESTEROL 139 mg/dL TRIGLYCERIDE 136 mg/dL 0-150 LDL calculated 72 mg/dL 0-129 CHOL/HDL 3.5 HDL CHOLESTEROL 40 mg/dL 40-60 Apr 07, 2024 07:31 AM [facility] CBC AND DIFF (AUTO) Specimen Type: BLOOD No comment entered. Ordering Provider: JOSUE SIMMONS Report Released Date/Time: Apr 04, 2024 05:53 PM Reporting Lab: [facility] [address] [facility] [address] Performing Lab: [address] [address] WBC 7.77 10*3/uL 4.50-11.00 RBC 4.29 10*6/uL [...] 10*3/uL 0.00-0.00 Apr 07, 2024 07:31 AM [facility] TSH Specimen Type: SERUM No comment entered. Ordering Provider: JOSUE SIMMONS Report Released Date/Time: Apr 04, 2024 05:53 PM Reporting Lab: [address] [address] Performing Lab: [address] [address] TSH 2.34 u[IU]/mL 0.35-5.00 Apr 07, 2024 07:31 AM [facility] URINALYSIS CLEAN CATCH Specimen Type: URINE Comment: If Glucose = >500 and Ketones are positive, please alert the Physician. Ordering Provider: JOSUE SIMMONS Report Released Date/Time: Apr 04, 2024 05:53 PM Reporting Lab: [address] [address] Performing Lab: [address] [address] UA COLOR Yellow Yellow UA APPEARANCE Clear Clear UA GLUCOSE Normal mg/dL Negative UA KETONES NEGATIVE mg/dL Negative UA BLOOD NEGATIVE mg/dL Negative UA PROTEIN 10 mg/dL Negative UA NITRITE NEGATIVE mg/dL Negative UA BILIRUBIN NEGATIVE mg/dL Negative UA SPECIFIC GRAVITY 1.024 H 1.016-1.022 UA pH 7.0 5.0-9.0 UA UROBILINOGEN Normal mg/dL <2.0 UA LEUKOCYTE NEGATIVE Negative Vital Signs: All taken on the encounter date This section contains inpatient and outpatient Vital Signs collected on the date of the Encounter. Date/Time Temperature Pulse Blood Pressure Respiratory Rate SP02 Pain Height Weight Body Mass Index Source Apr 13, 2024 01:49 PM 136/66 [facility] [place] [facility] Apr 13, 2024 01:23 PM 97.8 73 162/70 16 96 0 66 193.8 31 [facility] [place] [facility] Immunizations: All administered on the encounter date This section contains immunizations associated to the Encounter. Immunization Series Date Issued Reaction Comments COVID-19 (MODERNA), MRNA, LN P-S, PF, 50 MCG/0.5 ML (AGES 12+ YEARS) 7 Apr 13, 2024 INFLUENZA, HIGH-DOSE, TRIVALENT, PF Apr 13 Social History: Smoking Status (Most current) and Tobacco Use (All prior to encounter date) This section includes the most current, and the historical, smoking and tobacco- related health factors from the [place] facility where the Encounter took place. Current Smoking Status This section includes the most current smoking, or tobacco-related health factor, from the [place] facility where the Encounter took place. Date/Time Current Smoking Status Comment Darling ity Oct 16, 2023 01:30 PM VA-TOBACCO FORMER USER [place] [facility] [place] [facility] Tobacco Use History This section includes a history of the smoking, or tobacco-related health factors, that were collected on or before the date of the Encounter. The data comes from the [place] facility where the Encounter took place. Date/Time Smoking Status/Tobacco Use Comment F acility Oct 16, 2023 01:30 PM VA-TOBACCO QUIT 15 YRS OR MORE [facility] [place] [facility] Jul 04, 2022 11:00 AM VA-TOBACCO FORMER USER [facility] [place] [facility] Jul 04, 2022 11:00 AM VA-TOBACCO QUIT 15 YRS OR MORE [facility] [place] [facility] Jun 28, 2021 10:30 AM VA-TOBACCO FORMER USER [facility] [place] [facility] Jun 28, 2021 10:30 AM VA-TOBACCO QUIT 15 YRS OR MORE [facility] [place] [facility] May 26, 2020 08:00 AM VA-TOBACCO FORMER USER [facility] [place] [facility] May 26, 2020 08:00 AM VA-TOBACCO QUIT 15 YRS OR MORE [facility] May 23, 2018 11:21 AM VA-TOBACCO NEVER USED [facility] Advance Directives: All historical and current Section Date Range: From patient's date of to the date document was created. This section includes ALL of a patient's completed or amended [place] Advance and Rescinded Directives. The entries below indicate that a directive exists for the patient, but an actual copy is not included with this document. The data comes from all [place] facilities. Date Advance Directives Provider Source Feb 19, 2022 ADVANCE DIRECTIVE JOCE CASTORENA [facility] November 16, 2020 ADVANCE DIRECTIVE JOSUE SIMMONS [facility] Encounter Notes: All associated encounter notes This section contains the clinical notes associated to the Encounter. Date/Time Encounter Note(s) Provider Source Apr 13, 2024 01:49 PM PHYSICIAN NOTE: LOCAL TITLE: MD NOTE STANDARD TITLE: PHYSICIAN NOTE DATE OF NOTE: APR 13, 2024@13:49 ENTRY DATE: APR 13, 2024@13:49:47 AUTHOR: JOSUE SIMMONS EXP COSIGNER: URGENCY: STATUS: COMPLETED Patient Name: ALYCIA HUERTA VITALS: Patient temperature: 97.8 F [36.6 C] (04/13/2024 13:23) Blood pressure: 136/66 (04/13/2024 13:49) Patient height: 66 in [167.6 cm] (04/13/2024 13:23) Patient weight: 193.8 lb [87.91 kg] (04/13/2024 13:23) Patient BMI: BMI: 31.3 Patient pulse: 73 (04/13/2024 13:23) Patient respiration: 16 (04/13/2024 13:23) Patient Pulse Oximetry: 96% (04/13/2024 13:23) Pain Ratin (04/13/2024 13:23) Active VA Medications: Active Outpatient Medications (including Supplies): Active Outpatient Medications Status 1) ATORVASTATIN CALCIUM 80MG TAB TAKE ONE TABLET BY ACTIVE MOUTH AT BEDTIME 2) EZETIMIBE 10MG TAB TAKE ONE TABLET BY MOUTH ONCE ACTIVE DAILY TO LOWER CHOLESTEROL 3) FLUTICASONE PROP 50MCG 120D NASAL INHL INSTILL 1 ACTIVE SPRAY INTO EACH NOSTRIL ONCE DAILY NEEDED FOR NASAL IRRITATION/INFLAMMATION 4) HYDROCHLOROTHIAZIDE 25MG TAB TAKE ONE TABLET BY MOUTH ACTIVE ONCE DAILY 5) METOPROLOL SUCCINATE 50MG SA TAB TAKE ONE TABLET BY ACTIVE MOUTH ONCE DAILY FOR BLOOD PRESSURE/HEART 6) TRIAMCINOLONE ACETONIDE 0.1% CREAM APPLY A MODERATE ACTIVE AMOUNT TOPICALLY TWICE DAILY NEEDED FOR ITCHING Active Non-VA Medications Status 1) Non-VA ASPIRIN 81MG CHEW TAB 81MG BY MOUTH ONCE DAILY ACTIVE 7 Total Medications Remote Medications: No Active 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 patient takes hydrochlorothiazide and metoprolol for hypertension. He takes all medications regularly. He is deliberately losing weight and changing his diet. He is lost 15 pounds in the past several months. Review of systems no chest pain or dyspnea No abdominal pain no trouble urinating No fever or chills no cough Physical examination Well-developed well-nourished male in no acute distress Coronary no murmur Lungs clear Color, Urine (AX 4280): Yellow Appearance, Urine (AX 4280): Clear Glucose, Urine (AX 4280): Normal Ketones, Urine (AX 4280): NEGATIVE Blood, Urine (AX 4280): NEGATIVE Protein, Urine (AX 4280): 10 Nitrite, Urine (AX 4280): NEGATIVE Bilirubin, Urine (AX 4280): NEGATIVE Specific Sheldon, (AX 4280): 1.024 H pH, Urine (DC9222): 7.0 Urobilinogen, Urine (AX 4280): Normal Leukocyte Esterase, (AX 4280): NEGATIVE TSH (Access): 2.34 GLUCOSE: 93 UREA NITROGEN: 22 SODIUM: 139 POTASSIUM: 3.9 CHLORIDE: 102 CO2: 26 CHOLESTEROL: 139 PROTEIN,TOTAL: 6.8 ALBUMIN: 4.0 ALKALINE PHOSPHATASE: 118 SGOT: 30 SGPT: 23 TRIGLYCERIDE: 136 LDL CHOL: 72 CHOL/HDL RATIO: 3.5 HDL: 40 BILIRUBIN,TOT.: 1.0 CREATININE-EGFR: 0.92 eGFR CKD-EPI 2020: 82 WBC: 7.77 RBC: 4.29 HGB: 14.2 HCT: 41.1 MCV: 95.8 MCHC: 34.5 RDW: 13.1 PLT: 184 MCH: 33.1 H Neut %: 52.3 Lymph %: 31.7 [place] %: 12.6 Eos %: 2.3 Baso %: 0.6 Neut, Abs: 4.06 Lymph, Abs: 2.46 [place], Abs: 0.98 Eos, Abs: 0.18 Baso, Abs: 0.05 Immature Granulocytes %: 0.5 Immature Granulocytes, Abs: 0.04 NRBC%: 0.0 NRBC#: 0.00 I discussed above test results with patient Assessment and plan: 1. Hypertension: Blood pressure satisfactory Plan continue present medications Bree, patient wishes to discontinue home care. Follow-up 6 months clinic visit and lab Medication Reconciliation: Outpatient: Has the patient been taking medications as documented in the EMLR? YES: The patient has been taking medications as documented in the EMLR. Essential Medication List for Review used to complete this medication reconciliation. INCLUDED IN THIS LIST: Alphabetical list of active outpatient prescriptions dispensed from this [facility] (local) and dispensed from another [place] or DoD facility (remote) as well as inpatient orders [...] to the next appointment, whether with a [place] or non-AR provider. /eleanor/ Josue Simmons MD Staff Physician Signed: 04/13/2024 13:53 Receipt Acknowledged By: 04/13/2024 14:13 /eleanor/ BREE MONTILLA, [facility] PURCHASED WEAVING SUPERVISOR JOSUE SIMMONS [facility] [place] [facility] Apr 13, 2024 01:27 PM PREVENTIVE MEDICINE NURSING NOTE: LOCAL TITLE: CLINICAL REMINDERS/NURSING STANDARD TITLE: PREVENTIVE MEDICINE NURSING NOTE DATE OF NOTE: APR 13, 2024@13:27 ENTRY DATE: APR 13, 2024@13:27:24 AUTHOR: LEIGH MAHER COSIGNER: URGENCY: STATUS: COMPLETED CLINICAL REMINDERS/NURSING Has ADDENDA Falls & Incontinence Screen: Falls Screen: 3. At least one fall with injury requiring treatment (in ED or clinic visit). Incontinence Screen No incontinence. Suicide Screen: C-SSRS Screening Adams Suicide Severity Rating Scale (C-SSRS) screener 1. Over the past month, have you wished you were or wished you could go to sleep and not wake up? No 2. Over the past month, have you had any actual thoughts of killing yourself? No 3. Over the past month, have you been thinking about how you might do this? Response not required due to responses to other questions. 4. Over the past month, have you had these thoughts and had some intention of acting on them? Response not required due to responses to other questions. 5. Over the past month, have you started to work out or worked out the details of how to kill yourself? Response not required due to responses to other questions. 6. If yes, at any time in the past month did you intend to carry out this plan? Response not required due to responses to other questions. 7. In your lifetime, have you ever done anything, started to do anything, or prepared to do anything to end your life (for example, collected pills, obtained a gun, gave away valuables, went to the roof but didn't jump)? No 8. If YES, was this within the past 3 months? Response not required due to responses to other questions. Advance Directive Screen MH AD: Patient has an Advance Directive on file at this [facility]. No updates are needed at this time. The patient received education about Advance Directives and written notification of his/her rights. Comment: up to date Sexual Orientation: The patient thinks of their sexual orientation as: Straight or Heterosexual /tena MAHER LPN LPN Signed: 04/13/2024 13:29 04/13/2024 ADDENDUM STATUS: COMPLETED Influenza Immunization: Influenza, High-Dose, Trivalent, Preservative Free (Fluzone-Syringe) Administered: INFLUENZA, HIGH-DOSE, TRIVALENT, PF Date Administered: Apr 13, 2024 13:30 Series: Complete Traffic Monitor Specialist: SANOFI PASTEUR Lot: [id number] Exp Date: Jan 11, 2025 NDC: [id number] Admin Route/Site: INTRAMUSCULAR/LEFT DELTOID Dosage: 0.5mL Vaccine Information Statement(s): INFLUENZA(FLU) VACC(INACTIVATED OR RECOMBINANT)VIS Feb 17, 2021 (CYMRAES) Order By: Policy Administered By: Leigh Maher The Influenza Vaccine Information Statement (VIS) was reviewed with the patient/caregiver which lists the benefits and risks of the vaccine and the risks of not receiving the Influenza vaccine. The patient/caregiver denied any prior severe reaction to this vaccine or its components or a severe allergic reaction, such as anaphylaxis, to any vaccine or any injectable therapy. The patient/caregiver gave verbal consent to receive the vaccine. COVID-19 Immunization: Moderna Monovalent (Spikevax) Administered: COVID-19 (MODERNA), MRNA, LNP-S, PF, 50 MCG/0.5 ML (AGES 12+ YEARS) Date Administered: Apr 13, 2024 13:30 Series: Series 7 Traffic Monitor Specialist: [employer]. Lot: [id number] Exp Date: December 04, 2024 NDC: [id number] Admin Route/Site: INTRAMUSCULAR/LEFT DELTOID Dosage: 0.5mL Vaccine Information Statement(s): COVID-19 MRNA VACCINE (12+ YRS) VACCINE VIS May 02, 2023 (CYMRAES) Order By: Policy Administered By: Leigh Maher Vaccine administered without complications. /tena MAHER LPN LPN Signed: 04/13/2024 14:10 LEIGH MAHER [facility] [place] [facility]
--- OUTSIDE RECORDS SUMMARY | 2024-06-23 14:03 | XMS_ITS ---
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 Address [address] [place] [id number] Care Team Providers Care Equipment Maintenance Technician Name Role Phone JOSUE SIMMONS Primary Care [...] Dec 19, 2007 MEDICAR E SUPPLEM E [id number] NYDIA HUERTA UL PATIENT [employer] MEDICARE SUPPLEMEN YORDAN Dec 19, 2007 MEDICAR E SUPPLEM E [id number] [phone] NYDIA HUERTA UL PATIENT [employer] [place] MEDICARE SUPPLEMEN YORDAN BANKE RS Dec 19, 2007 NONE [id number] [phone] NYDIA HUERTA UL PATIENT MEDICARE (WNR) MEDICARE (M) PART B Oct 13, 2006 PART B [id number] [facility] NYDIA HUERTA UL PATIENT MEDICARE (WNR) MEDICARE (M) PART B Oct 13, 2006 PART B [id number] [facility] NYDIA HUERTA UL PATIENT MEDICARE (WNR) MEDICARE (M) PART B Oct 13, 2006 PART B [id number] [phone] NYDIA HUERTA PATIENT MEDICARE (WNR) MEDICARE (M) PART B Oct 13, 2006 PART B [id number] NYDIA HUERTA PATIENT MEDICARE (WNR) MEDICARE (M) PART A Sep 13, 2003 PART A [id number] NYDIA HUERTA PATIENT MEDICARE (WNR) MEDICARE (M) PART A Sep 13, 2003 PART A [id number] NYDIA HUERTA PATIENT MEDICARE (WNR) MEDICARE (M) PART A Sep 13, 2003 PART A [id number] NYDIA HUERTA PATIENT MEDICARE (WNR) MEDICARE (M) PART A Sep 13, 2003 PART A [id number] [phone] NYDIA HUERTA PATIENT Selected Encounter This section includes the information on record at [place] for the Encounter. Date/Time Encounter Type Encounter Description Reason Pro vider Source Jun 06, 2024 04:24 PM Outpatient Encounter PRIMARY CARE/MEDICINE IHE Encounter Template Text not used by [place] Plan of Treatment: Future Appointments (+ 6 [...] Date/Time Appointment Type Appointme nt Facility Name Jun 16, 2024 01:15 PM AMBULATORY - MEDICINE [place] [facility] [place] [facility] Aug 14, 2024 03:00 PM AMBULATORY - MEDICINE [place] [facility] [place] [facility] Oct 07, 2024 09:00 AM AMBULATORY - MEDICINE [place] [facility] [place] [facility] Oct 28, 2024 08:00 AM AMBULATORY - MEDICINE [facility] [place] [facility] Active, Pending, and Scheduled Orders This section includes a listing of several types of active, pending, and scheduled orders, including clinic medications orders, diagnostic test orders, procedure orders and consult orders; where the start date of the order is 45 days before the date of the Encounter or 45 days after the date of theEncounter. The data comes from all [place] treatment facilities. Test Date/Time Test Type Test Details Facility Name Jun 06, 2024 04:26 PM Consult Order [facility] Cons Early Childhood Special Educator's Choice [place] [facility] [place] [facility] Social History: Smoking Status (Most current) and [...] 16, 2023 01:30 PM [facility] [place] [facility] Tobacco Use History This section includes a history of the smoking, or tobacco-related health factors, that were collected on or before the date of the Encounter. The data comes from the [place] facility where the Encounter took place. Date/Time Smoking Status/Tobacco Use Comment F acility Oct 16, 2023 01:30 PM VA-TOBACCO QUIT 15 YRS OR MORE [place] [facility] [place] [facility] Jul 04, 2022 11:00 AM VA-TOBACCO FORMER USER [place] [facility] [place] [facility] Jul 04, 2022 11:00 AM VA-TOBACCO QUIT 15 YRS OR MORE [place] [facility] [place] [facility] Jun 28, 2021 10:30 AM VA-TOBACCO FORMER USER [place] [facility] [place] [facility] Jun 28, 2021 10:30 AM VA-TOBACCO QUIT 15 YRS OR MORE [place] [facility] [place] [facility] May 26, 2020 08:00 AM VA-TOBACCO FORMER USER [place] [facility] [place] [facility] May 26, 2020 08:00 AM VA-TOBACCO QUIT 15 YRS OR MORE [place] [facility] [place] [facility] May 23, 2018 11:21 AM VA-TOBACCO NEVER USED [place] [facility] [place] [facility] Advance Directives: All historical and current Section [...] Provider Source Feb 19, 2022 ADVANCE DIRECTIVE ONUR CASTORENARICLINDA HILL [facility] November 16, 2020 ADVANCE DIRECTIVE JOSUE SIMMONS [facility] Encounter Notes: All associated encounter notes This section contains the clinical notes associated to the Encounter. Date/Time Encounter Note(s) Provider Source Jun 06, 2024 04:26 PM PHYSICIAN NOTE: LOCAL TITLE: NOTE STANDARD TITLE: PHYSICIAN NOTE DATE OF NOTE: JUN 06, 2024@16:26 ENTRY DATE: JUN 06, 2024@16:26:51 AUTHOR: JOSUE SIMMONS EXP COSIGNER: URGENCY: STATUS: COMPLETED Renewed consult [facility] orthopedics for left ankle fracture. /eleanor/ Josue Simmons MD Staff Physician Signed: 06/06/2024 16:27 JOSUE SIMMONS [facility]
--- OUTSIDE RECORDS SUMMARY | 2024-06-23 14:03 | XMS_ITS | Encounter Summary ---
Author Name [facility] [place] Address [address] [place] [address] Care Team Providers Care Filter Worker Name Role Phone BYRON BARRON Primary [...] Dec 19, 2007 MEDICAR E SUPPLEM E [id number] [phone] NYDIA HUERTA UL PATIENT [employer] MEDICARE SUPPLEMEN YORDAN Dec 19, 2007 MEDICAR E SUPPLEM E [id number] NYDIA HUERTA UL PATIENT [employer] [place] MEDICARE SUPPLEMEN YORDAN BANKE RS Dec 19, 2007 NONE [id number] [phone] NYDIA HUERTA UL PATIENT MEDICARE (WNR) MEDICARE (M) PART B Oct 13, 2006 PART B [id number] NYDIA HUERTA UL PATIENT MEDICARE (WNR) MEDICARE (M) PART B Oct 13, 2006 PART B [id number] NYDIA HUERTA UL PATIENT MEDICARE (WNR) MEDICARE (M) PART B Oct 13, 2006 PART B [id number] NYDIA HUERTA PATIENT MEDICARE (WNR) MEDICARE (M) PART B Oct 13, 2006 PART B [id number] NYDIA HUERTA PATIENT MEDICARE (WNR) MEDICARE (M) PART A Sep 13, 2003 PART A [id number] NYDIA HUERTA PATIENT MEDICARE (WNR) MEDICARE (M) PART A Sep 13, 2003 PART A [id number] NYDIA HUERTA PATIENT MEDICARE (WNR) MEDICARE (M) PART A Sep 13, 2003 PART A [id number] NYDIA HUERTA PATIENT MEDICARE (WNR) MEDICARE (M) PART A Sep 13, 2003 PART A [id number] [phone] NYDIA HUERTA PATIENT Selected Encounter This section includes the information on record at [place] for the Encounter. Date/Time Encounter Type Encounter Description Reason Provider Source Oct 24, 2023 12:32 PM OFFICE O/P EST SF 10 MIN DERMATOLOGY ICD-10-CM R21 Rash and other nonspecific skin eruption SAQIB PASTOR [facility] Encounter Template Text not used by [place] Assessments - Encounter Diagnoses This section includes the primary and secondary diagnoses documented for the Encounter. Date/Time Primary/Secondary Diagnosis Diagnosis Name Provider Source Nov 04, 2023 07:13 AM PRIMARY Rash and other nonspecific skin eruption SAQIB PASTOR [facility] Nov 04, 2023 07:13 AM SECONDARY Neoplasm of uncertain behavior of skin SAQIB PASTOR [facility] Plan of Treatment: Future Appointments (+ 6 months) and Future Tests (+/- 45 days) The Plan of Treatment section includes future care activities for the patient from all [place] treatmentfacilities. This section includes future appointments and future orders which are active, pending or scheduled. Future Appointments This section includes appointments that were scheduled to occur 6 months from the date of the Encounter, up to a maximum of 20 appointments. The data comes from all [place] treatment facilities. Appointment Date/Time Appointment Type Appointme nt Facility Name December 05, 2023 10:00 AM AMBULATORY - NONE [place] [facility] [place] [facility] Dec 30, 2023 11:00 AM AMBULATORY - REH[place] MEDICIN E [facility] [place] [facility] Jan 13, 2024 01:20 PM AMBULATORY - MEDICINE [facility] [place] [facility] Jan 21, 2024 08:00 AM AMBULATORY - MEDICINE [facility] [place] [facility] Feb 03, 2024 01:30 PM AMBULATORY - REHAB MEDICIN E [facility] [place] [facility] Mar 05, 2024 08:00 AM AMBULATORY - MEDICINE [facility] [place] [facility] Mar 05, 2024 09:00 AM AMBULATORY - MEDICINE [facility] [place] [facility] Mar 06, 2024 08:00 AM AMBULATORY - MEDICINE [facility] [place] [facility] Mar 24, 2024 02:00 PM AMBULATORY - MEDICINE [facility] [place] [facility] Mar 31, 2024 09:30 AM AMBULATORY - REHAB MEDICIN E [facility] [place] [facility] Apr 13, 2024 01:30 PM AMBULATORY - MEDICINE [place] [facility] [place] [facility] Lab Results: +/- 30 days of the encounter This section includes the Chemistry and Hematology Lab Results on record with [place] for the patient. Radiology Reports and Pathology Reports are provided separately, in subsequent sections. Lab Results This section contains the Chemistry/Hematology Results that were resulted 30 days before or 30 daysafter the date of the Encounter. Date/Time Source Result Type Result - Unit Interpretation Reference Range Comment Oct 08, 2023 07:41 AM [place] [facility] BASIC METABOLIC PANEL (fasting) Specimen Type: SERUM No comment entered. Ordering Provider: BYRON BARRON Report Released Date/Time: Oct 05, 2023 11:58 PM Reporting [facility] [address] [address] Performing Lab: [facility] [address] [facility] [address] UREA NITROGEN 16 mg/dL 7-25 GLUCOSE 102 mg/dL H 65-100 SODIUM 143 mmol/L 135-145 POTASSIUM 4.4 mmol/L 3.5-5.0 CHLORIDE 106 mmol/L 100-110 CO2 26 meq/L 20-30 CREATININE, Serum 1.01 mg/dL 0.50-1.40 eGFR(CKD-EPI 2020) 73 mL/min >60 Oct 08, 2023 07:41 AM [facility] LIVER FUNCTION Specimen Type: SERUM No comment entered. Ordering Provider: BYRON BARRON Report Released Date/Time: Oct 05, 2023 11:58 PM Reporting Lab: [address] [address] Performing Lab: [address] [address] PROTEIN,TOTAL 6.6 g/dL 6.0-8.3 ALBUMIN 3.8 g/dL 3.5-5.0 ALKALINE PHOSPHATASE 103 U/L 40-150 AST 33 U/L 5-34 ALT 29 U/L BILIRUBIN, TOTAL 0.7 mg/dL 0.2-1.2 Oct 08, 2023 07:41 AM [facility] CBC AND DIFF (AUTO) Specimen Type: BLOOD No comment entered. Ordering Provider: BYRON BARRON Report Released Date/Time: Oct 05, 2023 11:58 PM Reporting Lab: [address] [address] Performing Lab: [address] [address] WBC 7.99 10*3/uL 4.50-11.00 RBC 4.47 10*6/uL 4.23-5.66 HGB 14.6 g/dL 12.8-17 HCT 42.7 39.2-50.4 MCV 95.5 fL 82-99 MCHC 34.2 g/dL 30.8-35.1 PLT 126 10*3/uL L 140-360 RDW-CV 12.9 12.0-16.0 [facility], Abs 0.79 10*3/uL 0.30-1.10 MCH 32.7 pg H 26.2-32.6 Neut % 54.5 43.7-75.8 Lymph % 33.3 14.0-42.3 [facility] % 9.9 5.1-13.7 Eos % 1.4 0.4-6.8 Baso % 0.6 0.1-2.0 Neut, Abs 4.36 10*3/uL 2.20-7.60 Lymph, Abs 2.66 10*3/uL 1.00-3.20 Eos, Abs 0.11 10*3/uL 0.03-0.44 Baso, Abs 0.05 10*3/uL 0.01-0.13 Immature Gran % 0.3 0.0-0.7 Immature Gran, Abs 0.02 10*3/uL 0.00-0.06 Oct 08, 2023 07:41 AM [facility] LIPID PANEL FASTING Specimen Type: SERUM No comment entered. Ordering Provider: BYRON BARRON Report Released Date/Time: Oct 05, 2023 11:58 PM Reporting Lab: [address] [address] Performing Lab: [address] [address] CHOLESTEROL 133 mg/dL TRIGLYCERIDE 98 mg/dL 0-150 LDL calculated 70 mg/dL 0-129 CHOL/HDL 3.1 HDL CHOLESTEROL 43 mg/dL 40-60 Oct 08, 2023 07:41 AM [facility] TSH Specimen Type: SERUM No comment entered. Ordering Provider: BYRON BARRON Report Released Date/Time: Oct 05, 2023 11:58 PM Reporting Lab: [address] [address] Performing Lab: [facility] [address] TSH 2.46 u[IU]/mL 0.35-5.00 Oct 08, 2023 07:41 AM [facility] URINALYSIS CLEAN CATCH Specimen Type: URINE Comment: If Glucose = >500 and Ketones are positive, please alert the Physician. Ordering Provider: BYRON BARRON Report Released Date/Time: Oct 05, 2023 11:58 PM Reporting Lab: [address] [address] Performing Lab: [facility] [place] [address] UA COLOR Light-Yellow Yellow UA APPEARANCE Clear Clear UA GLUCOSE NEGATIVE mg/dL Negative UA KETONES NEGATIVE mg/dL Negative UA BLOOD NEGATIVE mg/dL Negative UA PROTEIN NEGATIVE mg/dL Negative UA NITRITE NEGATIVE mg/dL Negative UA BILIRUBIN NEGATIVE mg/dL Negative UA SPECIFIC GRAVITY 1.018 1.016-1.022 UA pH 7.0 5.0-9.0 UA UROBILINOGEN <2.0 mg/dL <2.0 UA LEUKOCYTE NEGATIVE Negative Advance Directives: All historical and current Section Date Range: From patient's date of to the date document was created. This section includes ALL of a patient's completed or amended [place] Advance and Rescinded Directives. The entries below indicate that a directive exists for the patient, but an actual copy is not included with this document. The data comes from all [place] facilities. Date Advance Directives Provider Source Feb 19, 2022 ADVANCE DIRECTIVE JOCE CASTORENA [facility] November 16, 2020 ADVANCE DIRECTIVE BYRON BARRON [facility] Encounter Notes: All associated encounter notes This section contains the clinical notes associated to the Encounter. Date/Time Encounter Note(s) Provider Source Oct 24, 2023 12:32 PM TELEIMAGING REPORT : LOCAL TITLE: CONSULT-TELEDERMATOLOGY IMAGING REPORT STANDARD TITLE: TELEIMAGING REPORT DATE OF NOTE: OCT 24, 2023@12:32 ENTRY DATE: OCT 24, 2023@12:32:54 AUTHOR: SAQIB PASTOR COSIGNER: URGENCY: STATUS: COMPLETED HISTORY: 83-year-old man who reports itching on his back has been present for months. The consult states that no treatment has been tried. OVERALL CONSULT/IMAGE QUALITY: Fully satisfactory EXAM: Photographs of the back show a lacy, livedoid-type pattern on the bilateral flanks and lower back. There is some mild xerosis present throughout. East, waxy, stuck on papules are present on the back. On the right lower back there is a pigmented lesion that is not well visualized, but it could represent an atypical melanocytic lesion, or a melanoma. IMPRESSION BASED ON IMAGES AND INFORMATION REVIEWED: PROBLEM A: Diagnosis: PROBLEM B: Diagnosis: Neoplasm uncertain behavior, right low back RECOMMENDATIONS FOR REFERRING PROVIDER: PROBLEM A: Medication: For the itching patient can start with triamcinolone 0.1% cream 1-2 times daily as needed Other recommendations: If there is no improvement with the triamcinolone he should be seen in dermatology for evaluation PROBLEM B: Biopsy: RECOMMENDED FOLLOW-UP: Consult to Dermatology clinic for follow up MARC: Within 2 to 4 weeks Cumulative time of review and management: 5 minutes or more /eleanor/ Saqib Pastor PA-C Dermatology Signed: 10/24/2023 12:40 SAQIB PASTOR [facility]
--- OUTSIDE RECORDS SUMMARY | 2024-06-23 14:03 | XMS_ITS ---
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 Address [address] [place] [id number] Care Team Providers Care Braider Operator Name Role Phone JOSUE SIMMONS Primary [...] Dec 19, 2007 MEDICAR E SUPPLEM E [id number] [phone] NYDIA HUERTA UL PATIENT [employer] MEDICARE SUPPLEMEN YORDAN Dec 19, 2007 MEDICAR E SUPPLEM E [id number] [phone] NYDIA HUERTA UL PATIENT [employer] [place] MEDICARE SUPPLEMEN YORDAN BANKE RS Dec 19, 2007 NONE [id number] NYDIA HUERTA UL PATIENT MEDICARE (WNR) MEDICARE (M) PART B Oct 13, 2006 PART B [id number] NYDIA HUERTA UL PATIENT MEDICARE (WNR) MEDICARE (M) PART B Oct 13, 2006 PART B [id number] [place] UL PATIENT MEDICARE (WNR) MEDICARE (M) PART B Oct 13, 2006 PART B [id number] NYDIA HUERTA PATIENT MEDICARE (WNR) MEDICARE (M) PART B Oct 13, 2006 PART B [id number] NYDIA HUERTA PATIENT MEDICARE (WNR) MEDICARE (M) PART A Sep 13, 2003 PART A [id number] NYDIA HUERTA PATIENT MEDICARE (WNR) MEDICARE (M) PART A Sep 13, 2003 PART A [id number] [phone] NYDIA HUERTA PATIENT MEDICARE (WNR) MEDICARE (M) PART A Sep 13, 2003 PART A [id number] NYDIA HUERTA PATIENT MEDICARE (WNR) MEDICARE (M) PART A Sep 13, 2003 PART A [id number] NYDIA HUERTA PATIENT Selected Encounter This section includes the information on record at [place] for the Encounter. Date/Time Encounter Type Encounter Description Reason Pro vider Source Jun 03, 2024 06:26 PM Outpatient Encounter PRIMARY CARE/MEDICINE IHE Encounter Template Text not used by [place] Plan of Treatment: Future Appointments (+ 6 months) and Future Tests (+/- 45 days) The Plan of Treatment section includes future care activities for the patient from all [place] treatmentfacilities. This section includes future appointments and future orders which are active, pending or scheduled. Future Appointments This section includes appointments that were scheduled to occur 6 months from the date of the Encounter, up to a maximum of 20 appointments. The data comes from all [place] treatment facilities. Appointment Date/Time Appointment Type Appointme nt Facility Name Jun 16, 2024 01:15 PM AMBULATORY - [place]ICINE [place] [facility] [place] [facility] Aug 14, 2024 03:00 PM AMBULATORY - MEDICINE [place] [facility] [place] [facility] Oct 07, 2024 09:00 AM AMBULATORY - MEDICINE [place] [facility] [place] [facility] Oct 28, 2024 08:00 AM AMBULATORY - MEDICINE [facility] [place] [facility] Active, Pending, and Scheduled Orders This section includes a listing of several types of active, pending, and scheduled orders, including clinic medications orders, diagnostic test orders, procedure orders and consult orders; where the start date of the order is 45 days before the date of the Encounter or 45 days after the date of theEncounter. The data comes from all [place] treatment facilities. Test Date/Time Test Type Test Details Facility Name Jun 06, 2024 04:26 PM Consult Order [facility] Cons Analysis Director's Choice [place] [facility] [place] [facility] Social History: Smoking Status (Most current) and Tobacco Use (All prior to encounter date) This section includes the most current, and the historical, smoking and tobacco- related health factors from the [place] facility where the Encounter took place. Current Smoking Status This section includes the most current smoking, or tobacco-related health factor, from the [place] facility where the Encounter took place. Date/Time Current Smoking Status Comment Facil ity Oct 16, 2023 01:30 PM [facility] [place] [facility] Tobacco Use History This section includes a history of the smoking, or tobacco-related health factors, that were collected on or before the date of the Encounter. The data comes from the [place] facility where the Encounter took place. Date/Time Smoking Status/Tobacco Use Comment F acility Oct 16, 2023 01:30 PM VA-TOBACCO QUIT 15 YRS OR MORE [place] [facility] [place] [facility] Jul 04, 2022 11:00 AM VA-TOBACCO FORMER USER [place] [facility] [place] [facility] Jul 04, 2022 11:00 AM VA-TOBACCO QUIT 15 YRS OR MORE [place] [facility] [place] [facility] Jun 28, 2021 10:30 AM VA-TOBACCO FORMER USER [place] [facility] [place] [facility] Jun 28, 2021 10:30 AM VA-TOBACCO QUIT 15 YRS OR MORE [place] [facility] [place] [facility] May 26, 2020 08:00 AM VA-TOBACCO FORMER USER [place] [facility] [place] [facility] May 26, 2020 08:00 AM VA-TOBACCO QUIT 15 YRS OR MORE [place] [facility] [place] [facility] May 23, 2018 11:21 AM VA-TOBACCO NEVER USED [place] [facility] [place] [facility] Advance Directives: All historical and current Section Date Range: From patient's date of to the date document was created. This section includes ALL of a patient's completed or amended [place] Advance and Rescinded Directives. The entries below indicate that a directive exists for the patient, but an actual copy is not included with this document. The data comes from all [place] facilities. Date Advance Directives Provider Source Feb 19, 2022 ADVANCE DIRECTIVE EDERJOCE BURR SERGIO [facility] November 16, 2020 ADVANCE DIRECTIVE JOSUE SIMMONS [facility] Encounter Notes: All associated encounter notes This section contains the clinical notes associated to the Encounter. Date/Time Encounter Note(s) Provider Source Jun 03, 2024 06:26 PM NONVA CONSULT: LOCAL TITLE: MD/OUTSIDE CONSULT REPORT SUMMARY STANDARD TITLE: NONVA CONSULT DATE OF NOTE: JUN 03, 2024@18:26 ENTRY DATE: JUN 03, 2024@18:26:20 AUTHOR: JOSUE SIMMONS EXP COSIGNER: URGENCY: STATUS: COMPLETED 05-08-[address] [facility] Left ankle ORIF 01-21-2024 X-ray shows no movement of hardware Follow-up 1 month /eleanor/ Josue Simmons MD Staff Physician Signed: 06/03/2024 18:26 JOSUE SIMMONS [facility]
--- OUTSIDE RECORDS SUMMARY | 2024-06-23 14:03 | XMS_ITS | Encounter Summary ---
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 Organization [place] Address [address] [place] [address] Care Team Providers Care Environmental Protection Officer Name Role Phone BYRON BARRON Primary Care [...] Dec 19, 2007 MEDICAR E SUPPLEM E [id number] [phone] NYDIA HUERTA UL PATIENT [employer] MEDICARE SUPPLEMEN YORDAN Dec 19, 2007 MEDICAR E SUPPLEM E [id number] NYDIA HUERTA UL PATIENT [employer] [place] MEDICARE SUPPLEMEN YORDAN BANKE RS Dec 19, 2007 NONE [id number] [phone] NYDIA HUERTA UL PATIENT MEDICARE (WNR) MEDICARE (M) PART B Oct 13, 2006 PART B [id number] [phone] NYDIA HUERTA UL PATIENT MEDICARE (WNR) MEDICARE (M) PART B Oct 13, 2006 PART B [id number] DOM[place] UL PATIENT MEDICARE (WNR) MEDICARE (M) PART B Oct 13, 2006 PART B [id number] NYDIA HUERTA PATIENT MEDICARE (WNR) MEDICARE (M) PART B Oct 13, 2006 PART B [id number] NYDIA HUERTA PATIENT MEDICARE (WNR) MEDICARE (M) PART A Sep 13, 2003 PART A [id number] [phone] NYDIA HUERTA PATIENT MEDICARE (WNR) MEDICARE (M) PART A Sep 13, 2003 PART A [id number] NYDIA HUERTA PATIENT MEDICARE (WNR) MEDICARE (M) PART A Sep 13, 2003 PART A [id number] NYDIA HUERTA PATIENT MEDICARE (WNR) MEDICARE (M) PART A Sep 13, 2003 PART A [id number] NYDIA HUERTA PATIENT Selected Encounter This section includes the information on record at CT for the Encounter. Date/Time Encounter Type Encounter Description Reason Provider Source May 05, 2024 02:00 PM CONFORMITY EVALUATION AUDIOLOGY ICD-10-CM Z46.1 Encounter for fitting and adjustment of hearing aid SAAD HARRINGTON [facility] Encounter Template Text not used by CT Assessments - Encounter Diagnoses This section includes the primary and secondary diagnoses documented for the Encounter. Date/Time Primary/Secondary Diagnosis Diagnosis Name Provider Source May 05, 2024 02:35 PM PRIMARY Encounter for fitting and adjustment of hearing aid SAAD HARRINGTON [facility] May 05, 2024 02:35 PM SECONDARY Mixed conductive and sensorineural hearing loss, bilateral SAAD HARRINGTON [facility] [place] [facility] Plan of Treatment: Future Appointments (+ [...] 16, 2024 01:15 PM AMBULATORY - MEDICINE [facility] NTRL TRN [facility] Aug 14, 2024 03:00 PM AMBULATORY - MEDICINE [facility] Oct 07, 2024 09:00 AM AMBULATORY - MEDICINE [facility] NTRL TRN [facility] Oct 28, 2024 08:00 AM [facility] Active, Pending, and Scheduled Orders This section includes a listing of several types of active, pending, and scheduled orders, including clinic medications orders, diagnostic test orders, procedure orders and consult orders; where the start date of the order is 45 days before the date of the Encounter or 45 days after the date of theEncounter. The data comes from all [place] treatment facilities. Test Date/Time Test Type Test Details Facility Name Jun 06, 2024 04:26 PM Consult Order [facility], [facility] Cons Dope House Operator Helper's Choice [facility] Lab Results: +/- 30 days of [...] Range Comment Apr 07, 2024 07:31 AM [facility] LIVER FUNCTION Specimen Type: SERUM No comment entered. Ordering Provider: BYRON BARRON Report Released Date/Time: Apr 04, 2024 05:53 PM Reporting Lab: [facility] [address] [facility] [address] Performing Lab: [address] [address] PROTEIN,TOTAL 6.8 g/dL 6.0-8.3 ALBUMIN 4.0 g/dL 3.5-5.0 ALKALINE PHOSPHATASE 118 U/L 40-150 AST 30 U/L 5-34 ALT 23 U/L BILIRUBIN, TOTAL 1.0 mg/dL 0.2-1.2 Apr 07, 2024 07:31 AM [facility] BASIC METABOLIC PANEL (fasting) Specimen Type: SERUM No comment entered. Ordering Provider: BYRON BARRON Report Released Date/Time: Apr 04, 2024 05:53 PM Reporting [facility] [address] [facility] [address] Performing Lab: [facility] [address] [facility] [address] UREA NITROGEN 22 mg/dL 7-25 GLUCOSE 93 mg/dL 65-100 SODIUM 139 mmol/L 135-145 POTASSIUM 3.9 mmol/L 3.5-5.0 CHLORIDE 102 mmol/L 100-110 CO2 26 meq/L 20-30 CREATININE, Serum 0.92 mg/dL 0.50-1.40 eGFR(CKD-EPI 2020) 82 mL/min >60 Apr 07, 2024 07:31 AM [facility] TSH Specimen Type: SERUM No comment entered. Ordering Provider: BYRON BARRON Report Released Date/Time: Apr 04, 2024 05:53 PM Reporting Lab: [facility] [address] [facility] [address] Performing Lab: [facility] [address] [facility] [address] TSH 2.34 u[IU]/mL 0.35-5.00 Apr 07, 2024 07:31 AM [facility] LIPID PANEL FASTING Specimen Type: SERUM No comment entered. Ordering Provider: BYRON BARRON Report Released Date/Time: Apr 04, 2024 05:53 PM Reporting Lab: [facility] [address] [facility] [address] Performing Lab: [address] [address] CHOLESTEROL 139 mg/dL TRIGLYCERIDE 136 mg/dL 0-150 LDL calculated 72 mg/dL 0-129 CHOL/HDL 3.5 HDL CHOLESTEROL 40 mg/dL 40-60 Apr 07, 2024 07:31 AM [facility] CBC AND DIFF (AUTO) Specimen Type: BLOOD No comment entered. Ordering Provider: BYRON BARRON Report Released Date/Time: Apr 04, 2024 05:53 PM Reporting Lab: [facility] [address] [facility] [address] Performing Lab: [facility] [address] [facility] [address] WBC 7.77 10*3/uL 4.50-11.00 RBC 4.29 10*6/uL [...] 10*3/uL 0.00-0.00 Apr 07, 2024 07:31 AM [facility] URINALYSIS CLEAN CATCH Specimen Type: URINE Comment: If Glucose = >500 and Ketones are positive, please alert the Physician. Ordering Provider: BYRON BARRON Report Released Date/Time: Apr 04, 2024 05:53 PM Reporting Lab: [facility] [address] [facility] [address] Performing Lab: [address] [place] [address] UA COLOR Yellow Yellow UA APPEARANCE Clear [...] 2023 01:30 PM [facility] Tobacco Use History This section includes a history of the smoking, or tobacco-related health factors, that were collected on or before the date of the Encounter. The data comes from the [place] facility where the Encounter took place. Date/Time Smoking Status/Tobacco Use Comment F acility Oct 16, 2023 01:30 PM VA-TOBACCO QUIT 15 YRS OR MORE [facility] [place] [facility] Jul 04, 2022 11:00 AM VA-TOBACCO FORMER USER [facility] [place] [facility] Jul 04, 2022 11:00 AM VA-TOBACCO QUIT 15 YRS OR MORE [facility] [place] [facility] Jun 28, 2021 10:30 AM VA-TOBACCO FORMER USER [facility] [place] [place] [facility] Jun 28, 2021 10:30 AM VA-TOBACCO QUIT 15 YRS OR MORE [facility] [place] [facility] May 26, 2020 08:00 AM VA-TOBACCO FORMER USER [facility] [place] [place] [facility] May 26, 2020 08:00 AM VA-TOBACCO QUIT 15 YRS OR MORE [facility] [place] [facility] May 23, 2018 11:21 AM VA-TOBACCO NEVER USED CT CNTRL [place]STRN [place] [facility] Advance Directives: All historical and [...] Source Feb 19, 2022 ADVANCE DIRECTIVE ONUR CASTORENAELIAS ARROYOAN [facility] November 16, 2020 ADVANCE DIRECTIVE BARRONBYRON Noa [facility] Encounter Notes: All associated encounter notes This section contains the clinical notes associated to the Encounter. Date/Time Encounter Note(s) Provider Source May 05, 2024 11:52 AM AUDIOLOGY E & M NO TE: [facility] TITLE: AUDIOLOGY CLINIC STANDARD TITLE: AUDIOLOGY E & M NOTE DATE OF NOTE: MAY 05, 2024@11:52 ENTRY DATE: MAY 05, 2024@11:52:53 AUTHOR: SAAD HARRINGTON COSIGNER: URGENCY: STATUS: COMPLETED Diagnosis: mixed hearing loss Hearing Aid Fitting: SUBJECTIVE (S): The [place] was seen for hearing aid fitting and issuance. S/He had previously been evaluated and found to exhibit significant hearing loss for which amplification was recommended. How does the patient/client best learn? verbal instruction, demonstration Does the patient/client have any cultural and protestant beliefs, emotional barriers, physical or cognitive limitations, and communication barriers which may impact his/her ability to learn? no Desire and motivation to learn? Good OBJECTIVE (O): Physical fit of earmolds/receivers and domes/hearing aids was good. [place] verified comfort. Verification of an appropriate acoustic response was obtained using Real Ear measurements (speech mapping) and NAL- NL1 targets. The reported good subjective benefit as well. Feedback train operations manager was run. Hearing aids were found to be meeting targets adequately and MPO was not exceeding estimated UCL. Settings stored in LARA. ASSESSMENT (A): The following device(s) was/were issued: Cristopher Mesa Model: Evolv BTE R Serial Numbers:[id number] Battery size: RECHARGEABLE Trial Period ends: 09-30-24 Domes/wax guards, etc.: n/a Earmold Information: clear lucite canal lock Overhead Crane Inspector size/power: n/a Program Settings (VC, Programs, Buttons): right raise/left lower Fitting Formula: NAL-NL1 Remote programming: capable Reduced overall gain by 2 steps per request. Counseling was completed today throughout todays appointment using a standardized curriculum that includes but is not limited to; realistic expectations with amplification in adverse listening environments, acclimatization to own voice and environmental sounds (following real-ear measurements), the importance of consistent use of amplification, proper insertion/removal, care and maintenance (including wax guards/domes if applicable), signal and alerts of devices, and charging/batteries. The was provided the opportunity to practice in office and reports confidence/understanding in all items reviewed. was given written reference materials today. The [place] was informed of and agreed to [place] policy on hearing aid issuance: Users are responsible for the maintenance and security of their devices. Determination of need to replace a hearing aid is made by the CT binder selector. Hearing aids will not be replaced in cases of neglect, abuse, or excessive loss. Items issued are for personal use only. Prognosis for successful hearing aid use is good. PLAN (P): 1. Contact clinic with any problems/concerns. 2. The International Outcome Inventory-Hearing Aids (IOI-KU) will be mailed to the in four weeks. He/she was asked to mail back to clinic after completion. Patient Education Education provided on the following topics: hearing aid management Education provided to: P Response to Education: TAI, ALEXUS, PI Chaudhary Patient P Family F Significant Other SO Verbalizes Understanding VU Returns Demonstration RD Performs Independently PI Lacks Comprehension LC Refused Education RE Not Applicable NA /eleanor/ Alcon GERONIMO, [facility]A STAFF VENEER MANUFACTURER Signed: 05/05/2024 14:44 SAAD HARRINGTON CNTRL WSTRN [facility]
--- OUTSIDE RECORDS SUMMARY | 2024-06-23 14:03 | XMS_ITS ---
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 ([place]) Organization Department of [place] Address [address] [place] [address] Care Team Providers Care Oracle Applications Analyst Name Role Phone BYRON BARRON Primary Care [...] Dec 19, 2007 MEDICAR E SUPPLEM E [id number] NYDIA HUERTA UL PATIENT [employer] MEDICARE SUPPLEMEN YORDAN Dec 19, 2007 MEDICAR E SUPPLEM E [id number] NYDIA HUERTA UL PATIENT [employer] [place] MEDICARE SUPPLEMEN YORDAN BANKE RS Dec 19, 2007 NONE [id number] [phone] NYDIA HUERTA UL PATIENT MEDICARE (WNR) MEDICARE (M) PART B Oct 13, 2006 PART B [id number] [phone] NYDIA HUERTA UL PATIENT MEDICARE (WNR) MEDICARE (M) PART B Oct 13, 2006 PART B [id number] DOM[place] UL PATIENT MEDICARE (WNR) MEDICARE (M) PART B Oct 13, 2006 PART B [id number] [phone] NYDIA HUERTA PATIENT MEDICARE (WNR) MEDICARE (M) PART B Oct 13, 2006 PART B [id number] NYDIA HUERTA PATIENT MEDICARE (WNR) MEDICARE (M) PART A Sep 13, 2003 PART A [id number] NYDIA HUERTA PATIENT MEDICARE (WNR) MEDICARE (M) PART A Sep 13, 2003 PART A [id number] [phone] NYDIA HUERTA PATIENT MEDICARE (WNR) MEDICARE (M) PART A Sep 13, 2003 PART A [id number] [phone] NYDIA HUERTA PATIENT MEDICARE (WNR) MEDICARE (M) PART A Sep 13, 2003 PART A [id number] NYDIA HUERTA PATIENT Selected Encounter This section includes the information on record at MD for the Encounter. Date/Time Encounter Type Encounter Description Reason Pro vider Source Apr 14, 2024 12:00 PM Outpatient Encounter COMMUNITY CARE CONSULT IHE Encounter Template Text not used by MD Plan of Treatment: Future Appointments (+ 6 months) and Future Tests (+/- 45 days) The Plan of Treatment section includes future care activities for the patient from all MD treatmentfacilities. This section includes future appointments and future orders which are active, pending or scheduled. Future Appointments This section includes appointments that were scheduled to occur 6 months from the date of the Encounter, up to a maximum of 20 appointments. The data comes from all MD treatment facilities. Appointment Date/Time Appointment Type Appointme nt Facility Name Apr 28, 2024 02:00 PM AMBULATORY - MEDICINE MD C [facility] [place] [facility] May 05, 2024 02:00 PM AMBULATORY - REHAB MEDICIN E MD CNTRL [place] [facility] Jun 16, 2024 01:15 PM AMBULATORY - MEDICINE MD C NTRL [place] [facility] Aug 14, 2024 03:00 PM AMBULATORY - MEDICINE MD C NTRL [place] [facility] Oct 07, 2024 09:00 AM AMBULATORY - MEDICINE MD C [facility] Lab Results: +/- 30 days of the encounter This section includes the Chemistry and Hematology Lab Results on record with MD for the patient. Radiology Reports and Pathology Reports are provided separately, in subsequent sections. Lab Results This section contains the Chemistry/Hematology Results that were resulted 30 days before or 30 daysafter the date of the Encounter. Date/Time Source Result Type Result - Unit Interpretation Reference Range Comment Apr 07, 2024 07:31 AM [facility] LIVER FUNCTION Specimen Type: SERUM No comment entered. Ordering Provider: BYRON BARRON Report Released Date/Time: Apr 04, 2024 05:53 PM Reporting Lab: [address] [address] Performing Lab: [address] [address] PROTEIN,TOTAL 6.8 g/dL 6.0-8.3 ALBUMIN 4.0 g/dL 3.5-5.0 ALKALINE PHOSPHATASE 118 U/L 40-150 AST 30 U/L 5-34 ALT 23 U/L BILIRUBIN, TOTAL 1.0 mg/dL 0.2-1.2 Apr 07, 2024 07:31 AM [facility] BASIC METABOLIC PANEL (fasting) Specimen Type: SERUM No comment entered. Ordering Provider: BYRON BARRON Report Released Date/Time: Apr 04, 2024 05:53 PM Reporting Lab: [address] [address] Performing Lab: [address] [address] UREA NITROGEN 22 mg/dL 7-25 GLUCOSE 93 mg/dL 65-100 SODIUM 139 mmol/L 135-145 POTASSIUM 3.9 mmol/L 3.5-5.0 CHLORIDE 102 mmol/L 100-110 CO2 26 meq/L 20-30 CREATININE, Serum 0.92 mg/dL 0.50-1.40 eGFR(CKD-EPI 2020) 82 mL/min >60 Apr 07, 2024 07:31 AM [facility] TSH Specimen Type: SERUM No comment entered. Ordering Provider: BYRON BARRON Report Released Date/Time: Apr 04, 2024 05:53 PM Reporting Lab: [facility] [address] [facility] [address] Performing Lab: [facility] [address] [address] TSH 2.34 u[IU]/mL 0.35-5.00 Apr 07, 2024 07:31 AM [facility] LIPID PANEL FASTING Specimen Type: SERUM No comment entered. Ordering Provider: BYRON BARRON Report Released Date/Time: Apr 04, 2024 05:53 PM Reporting Lab: [address] [address] Performing Lab: [address] [address] CHOLESTEROL 139 mg/dL TRIGLYCERIDE 136 mg/dL 0-150 LDL calculated 72 mg/dL 0-129 CHOL/HDL 3.5 HDL CHOLESTEROL 40 mg/dL 40-60 Apr 07, 2024 07:31 AM [facility] CBC AND DIFF (AUTO) Specimen Type: BLOOD No comment entered. Ordering Provider: BYRON BARRON Report Released Date/Time: Apr 04, 2024 05:53 PM Reporting Lab: [facility] [address] [facility] [address] Performing Lab: [facility] [address] [address] WBC 7.77 10*3/uL 4.50-11.00 RBC 4.29 10*6/uL [...] 10*3/uL 0.00-0.00 Apr 07, 2024 07:31 AM [facility] URINALYSIS CLEAN CATCH Specimen Type: URINE Comment: If Glucose = >500 and Ketones are positive, please alert the Physician. Ordering Provider: BYRON BARRON Report Released Date/Time: Apr 04, 2024 05:53 PM Reporting Lab: [facility] [address] [facility] [address] Performing Lab: [address] [address] UA COLOR Yellow Yellow UA APPEARANCE Clear [...] and tobacco- related health factors from the MD facility where the Encounter took place. Current Smoking Status This section includes the most current smoking, or tobacco-related health factor, from the MD facility where the Encounter took place. Date/Time Current Smoking Status Comment Facil viktoria Oct 16, 2023 01:30 PM VA-TOBACCO FORMER USER [facility] Tobacco Use History This section includes a history of the smoking, or tobacco-related health factors, that were collected on or before the date of the Encounter. The data comes from the MD facility where the Encounter took place. Date/Time Smoking Status/Tobacco Use Comment F acility Oct 16, 2023 01:30 PM VA-TOBACCO QUIT 15 YRS OR MORE [facility] [place] [facility] Jul 04, 2022 11:00 AM VA-TOBACCO FORMER USER MD CNTRL [place] [facility] Jul 04, 2022 11:00 AM VA-TOBACCO QUIT 15 YRS OR MORE [facility] [place] [facility] Jun 28, 2021 10:30 AM VA-TOBACCO FORMER USER MD CNTRL [place] [facility] Jun 28, 2021 10:30 AM VA-TOBACCO QUIT 15 YRS OR MORE [facility] [place] [facility] May 26, 2020 08:00 AM VA-TOBACCO FORMER USER MD CNTRL [place] [facility] May 26, 2020 08:00 AM VA-TOBACCO QUIT 15 YRS OR MORE [facility] May 23, 2018 11:21 AM VA-TOBACCO NEVER USED [facility] Advance Directives: All historical and current Section Date Range: From patient's date of to the date document was created. This section includes ALL of a patient's completed or amended MD Advance and Rescinded Directives. The entries below indicate that a directive exists for the patient, but an actual copy is not included with this document. The data comes from all MD facilities. Date Advance Directives Provider Source Feb 19, 2022 ADVANCE DIRECTIVE JOCE CASTORENA [facility] W[facility] November 16, 2020 ADVANCE DIRECTIVE BYRON BARRON [facility] Encounter Notes: All associated encounter notes This section contains the clinical notes associated to the Encounter. Date/Time Encounter Note(s) Provider Source Apr 14, 2024 12:00 PM NONVA CONSULT: LOCAL TITLE: COMMUNITY CARE-CONSULT RESULT NOTE STANDARD TITLE: NONVA CONSULT DATE OF NOTE: APR 14, 2024@12:00 ENTRY DATE: MAY 07, 2024@12:34:25 AUTHOR: CLOUKEY,RAMONITA A EXP COSIGNER: URGENCY: STATUS: COMPLETED VistA Imaging - Scanned Document SCANNED DOCUMENT SIGNATURE NOT REQUIRED Electronically Filed: 05/07/2024 by: RAMONITA SANCHEZL WSTRN [facility]
--- OUTSIDE RECORDS SUMMARY | 2024-06-23 14:03 | XMS_ITS ---
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 Organization [facility] [place] Address [address] [place] [id number] Care Team Providers Care Poker In Name Role Phone JOSUE SIMMONS Primary Care [...] Dec 19, 2007 MEDICAR E SUPPLEM E [id number] [phone] NYDIA HUERTA UL PATIENT [employer] MEDICARE SUPPLEMEN YORDAN Dec 19, 2007 MEDICAR E SUPPLEM E [id number] NYDIA HUERTA UL PATIENT [employer] CO MEDICARE SUPPLEMEN YORDAN BANKE RS Dec 19, 2007 NONE [id number] NYDIA HUERTA UL PATIENT MEDICARE (WNR) MEDICARE (M) PART B Oct 13, 2006 PART B [id number] NYDIA HUERTA UL PATIENT MEDICARE (WNR) MEDICARE (M) PART B Oct 13, 2006 PART B [id number] NYDIA HUERTA UL PATIENT MEDICARE (WNR) MEDICARE (M) PART B Oct 13, 2006 PART B [id number] [phone] NYDIA HUERTA PATIENT MEDICARE (WNR) MEDICARE (M) PART B Oct 13, 2006 PART B [id number] [phone] NYDIA HUERTA PATIENT MEDICARE (WNR) MEDICARE (M) PART A Sep 13, 2003 PART A [id number] [phone] NYDIA HUERTA PATIENT MEDICARE (WNR) MEDICARE (M) PART A Sep 13, 2003 PART A [id number] NYDIA HUERTA PATIENT MEDICARE (WNR) MEDICARE (M) PART A Sep 13, 2003 PART A [id number] NYDIA HUERTA PATIENT MEDICARE (WNR) MEDICARE (M) PART A Sep 13, 2003 PART A [id number] NYDIA HUERTA PATIENT Selected Encounter This section includes the information on record at [place] for the Encounter. Date/Time Encounter Type Encounter Description Reason Pro vider Source Jun 27, 2023 03:27 PM Outpatient Encounter PRIMARY CARE/MEDICINE IHE Encounter Template Text not used by [place] Plan of Treatment: Future Appointments (+ 6 months) and Future Tests (+/- 45 days) The Plan of Treatment section includes future care activities for the patient from all [place] treatmentfacilities. This section includes future appointments and future orders which are active, pending or scheduled. Future Appointments This section includes appointments that were scheduled to occur 6 months from the date of the Encounter, up to a maximum of 20 appointments. The data comes from all [place] treatment facilities. Appointment Date/Time Appointment Type Appointme nt Facility Name Oct 16, 2023 01:30 PM AMBULATORY - MEDICINE [place] [facility] [place] [facility] Oct 24, 2023 09:00 AM AMBULATORY - NONE [place] [facility] [place] [facility] December 05, 2023 10:00 AM AMBULATORY - NONE [place] [facility] [place] [facility] Social History: Smoking Status (Most current) and Tobacco Use (All prior to encounter date) This section includes the most current, and the historical, smoking and tobacco- related health factors from the [facility] facility where the Encounter took place. Current Smoking Status This section includes the most current smoking, or tobacco-related health factor, from the [place] facility where the Encounter took place. Date/Time Current Smoking Status Comment Facil ity Jul 04, 2022 11:00 AM [facility] Tobacco Use History This section includes a history of the smoking, or tobacco-related health factors, that were collected on or before the date of the Encounter. The data comes from the [place] facility where the Encounter took place. Date/Time Smoking Status/Tobacco Use Comment F acility Jul 04, 2022 11:00 AM HI-TOBACCO QUIT 15 YRS OR MORE [facility] [place] [facility] Jun 28, 2021 10:30 AM VA-TOBACCO FORMER USER [place] [facility] [place] [facility] Jun 28, 2021 10:30 AM VA-TOBACCO QUIT 15 YRS OR MORE [facility] [place] [facility] May 26, 2020 08:00 AM VA-TOBACCO FORMER USER [place] [facility] [place] [facility] May 26, 2020 08:00 AM VA-TOBACCO QUIT 15 YRS OR MORE [facility] [place] [facility] May 23, 2018 11:21 AM [facility] Advance Directives: All historical and current Section Date Range: From patient's date of to the date document was created. This section includes ALL of a patient's completed or amended [place] Advance and Rescinded Directives. The entries below indicate that a directive exists for the patient, but an actual copy is not included with this document. The data comes from all [place] facilities. Date Advance Directives Provider Source Feb 19, 2022 ADVANCE DIRECTIVE JOCE CASTORENA [facility] November 16, 2020 ADVANCE DIRECTIVE JOSUE SIMMONS [facility] Encounter Notes: All associated encounter notes This section contains the clinical notes associated to the Encounter. Date/Time Encounter Note(s) Provider Source Jun 27, 2023 03:27 PM NONVA CONSULT: LOCAL TITLE: MD/OUTSIDE CONSULT REPORT SUMMARY STANDARD TITLE: NONVA CONSULT DATE OF NOTE: JUN 27, 2023@15:27 ENTRY DATE: JUN 27, 2023@15:27:54 AUTHOR: JOSUE SIMMONS EXP COSIGNER: URGENCY: STATUS: COMPLETED Mohamud [id number] 06-19-[address] Bonds [facility] Chief complaint: Follow-up coronary artery disease CHUNG, Aortic valve replacement Doing well Plan: Discontinue Plavix now because it is 1 year after surgery Follow-up 1 year /eleanor/ Josue Simmons MD Staff Physician Signed: 06/27/2023 15:28 JOSUE SIMMONS [facility]
--- OUTSIDE RECORDS SUMMARY | 2024-06-23 14:03 | XMS_ITS ---
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 [place] [facility] [place] Address [address] [place] [address] Care Team Providers Care Diamond Driller Name Role Phone BYRON BARRON Primary Care [...] Dec 19, 2007 MEDICAR E SUPPLEM E [id number] NYDIA HUERTA UL PATIENT [employer] MEDICARE SUPPLEMEN YORDAN Dec 19, 2007 MEDICAR E SUPPLEM E [id number] NYDIA HUERTA UL PATIENT [employer] CO MEDICARE SUPPLEMEN YORDAN BANKE RS Dec 19, 2007 NONE [id number] [phone] NYDIA HUERTA UL PATIENT MEDICARE (WNR) MEDICARE (M) PART B Oct 13, 2006 PART B [id number] [facility] NYDIA HUERTA UL PATIENT MEDICARE (WNR) MEDICARE (M) PART B Oct 13, 2006 PART B [id number] NYDIA HUERTA UL PATIENT MEDICARE (WNR) MEDICARE (M) PART B Oct 13, 2006 PART B [id number] NYDIA HUERTA PATIENT MEDICARE (WNR) MEDICARE (M) PART B Oct 13, 2006 PART B [id number] NYDIA HUERTA PATIENT MEDICARE (WNR) MEDICARE (M) PART A Sep 13, 2003 PART A [id number] NYDIA HUERTA PATIENT MEDICARE (WNR) MEDICARE (M) PART A Sep 13, 2003 PART A [id number] NYDIA HUERTA PATIENT MEDICARE (WNR) MEDICARE (M) PART A Sep 13, 2003 PART A [id number] NYDIA HUERTA PATIENT MEDICARE (WNR) MEDICARE (M) PART A Sep 13, 2003 PART A [id number] NYDIA HUERTA PATIENT Selected Encounter This section includes the information on record at [place] for the Encounter. Date/Time Encounter Type Encounter Description Reason Pro vider Source Apr 24, 2024 12:00 AM Outpatient Encounter COMMUNITY CARE [...] 28, 2024 02:00 PM AMBULATORY - MEDICINE [place] [facility] [place] [facility] May 05, 2024 02:00 PM AMBULATORY - REHAB MEDICIN E [place] [facility] [place] [facility] Jun 16, 2024 01:15 PM AMBULATORY - MEDICINE [place] [facility] [place] [facility] Aug 14, 2024 03:00 PM AMBULATORY - MEDICINE [place] [facility] [place] [facility] Oct 07, 2024 09:00 AM AMBULATORY - MEDICINE [place] C [facility] Active, Pending, and Scheduled Orders This section includes a listing of several types of active, pending, and scheduled orders, including clinic medications orders, diagnostic test orders, procedure orders and consult orders; where the start date of the order is 45 days before the date of the Encounter or 45 days after the date of theEncounter. The data comes from all [place] treatment facilities. Test Date/Time Test Type Test Details Facility Name Jun 06, 2024 04:26 PM Consult Order [facility] Cons Strategic Debriefing Officer's Choice [facility] Lab Results: +/- 30 days of the encounter This section includes the Chemistry and Hematology Lab Results on record with [place] for the patient. Radiology Reports and Pathology Reports are provided separately, in subsequent sections. Lab Results This section contains the Chemistry/Hematology Results that were resulted 30 days before or 30 daysafter the date of the Encounter. Date/Time Source Result Type Result - Unit Interpretation Reference Range Comment Apr 07, 2024 07:31 AM [facility] LIVER FUNCTION Specimen Type: SERUM No comment entered. Ordering Provider: BYRON BARRON Report Released Date/Time: Apr 04, 2024 05:53 PM Reporting Lab: [address] [address] Performing Lab: [address] [address] PROTEIN,TOTAL 6.8 g/dL 6.0-8.3 ALBUMIN 4.0 g/dL 3.5-5.0 ALKALINE PHOSPHATASE 118 U/L 40-150 AST 30 U/L 5-34 ALT 23 U/L BILIRUBIN, TOTAL 1.0 mg/dL 0.2-1.2 Apr 07, 2024 07:31 AM [facility] BASIC METABOLIC PANEL (fasting) Specimen Type: SERUM No comment entered. Ordering Provider: BYRON BARRON Report Released Date/Time: Apr 04, 2024 05:53 PM Reporting Lab: [address] [address] Performing Lab: [address] [address] UREA NITROGEN 22 mg/dL 7-25 GLUCOSE 93 mg/dL 65-100 SODIUM 139 mmol/L 135-145 POTASSIUM 3.9 mmol/L 3.5-5.0 CHLORIDE 102 mmol/L 100-110 CO2 26 meq/L 20-30 CREATININE, Serum 0.92 mg/dL 0.50-1.40 eGFR(CKD-EPI 2020) 82 mL/min >60 Apr 07, 2024 07:31 AM [facility] TSH Specimen Type: SERUM No comment entered. Ordering Provider: BYRON BARRON Report Released Date/Time: Apr 04, 2024 05:53 PM Reporting Lab: [address] [address] Performing Lab: [address] [address] TSH 2.34 u[IU]/mL 0.35-5.00 Apr 07, 2024 07:31 AM [facility] LIPID PANEL FASTING Specimen Type: SERUM No comment entered. Ordering Provider: BYRON BARRON Report Released Date/Time: Apr 04, 2024 05:53 PM Reporting Lab: [address] [address] Performing Lab: [address] [address] CHOLESTEROL 139 mg/dL TRIGLYCERIDE 136 mg/dL 0-150 LDL calculated 72 mg/dL 0-129 CHOL/HDL 3.5 HDL CHOLESTEROL 40 mg/dL 40-60 Apr 07, 2024 07:31 AM [facility] CBC AND DIFF (AUTO) Specimen Type: BLOOD No comment entered. Ordering Provider: BYRON BARRON Report Released Date/Time: Apr 04, 2024 05:53 PM Reporting Lab: [address] [address] Performing Lab: [address] [address] WBC 7.77 10*3/uL 4.50-11.00 RBC 4.29 10*6/uL [...] 10*3/uL 0.00-0.00 Apr 07, 2024 07:31 AM [facility] URINALYSIS CLEAN CATCH Specimen Type: URINE Comment: If Glucose = >500 and Ketones are positive, please alert the Physician. Ordering Provider: BYRON BARRON Report Released Date/Time: Apr 04, 2024 05:53 PM Reporting Lab: [address] [address] Performing Lab: [address] [address] UA COLOR Yellow Yellow UA APPEARANCE Clear [...] VA-TOBACCO FORMER USER [place] [facility] [place] [facility] Tobacco Use History This section includes a history of the smoking, or tobacco-related health factors, that were collected on or before the date of the Encounter. The data comes from the [place] facility where the Encounter took place. Date/Time Smoking Status/Tobacco Use Comment F acility Oct 16, 2023 01:30 PM VA-TOBACCO QUIT 15 YRS OR MORE [place] [facility] [place] [facility] Jul 04, 2022 11:00 AM VA-TOBACCO FORMER USER [place] [facility] [place] [facility] Jul 04, 2022 11:00 AM VA-TOBACCO QUIT 15 YRS OR MORE [place] [facility] [place] [facility] Jun 28, 2021 10:30 AM VA-TOBACCO FORMER USER [place] [facility] [place] [facility] Jun 28, 2021 10:30 AM VA-TOBACCO QUIT 15 YRS OR MORE [place] [facility] [place] [facility] May 26, 2020 08:00 AM VA-TOBACCO FORMER USER [place] [facility] [place] [facility] May 26, 2020 08:00 AM VA-TOBACCO QUIT 15 YRS OR MORE [place] [facility] [place] [facility] May 23, 2018 11:21 AM VA-TOBACCO NEVER USED [place] [facility] [place] [facility] Advance Directives: All historical and current [...] Feb 19, 2022 ADVANCE DIRECTIVE JOCE CASTORENA [place] [facility] [place] [facility] November 16, 2020 ADVANCE DIRECTIVE BYRON BARRON [facility] Encounter Notes: All associated encounter notes This section contains the clinical notes associated to the Encounter. Date/Time Encounter Note(s) Provider Source Apr 24, 2024 12:00 AM NONVA CONSULT: LOCAL TITLE: COMMUNITY CARE-CONSULT RESULT NOTE STANDARD TITLE: NONVA CONSULT DATE OF NOTE: APR 24, 2024 ENTRY DATE: MAY 28, 2024@07:18:24 AUTHOR: SHANNON PATTERSON EXP COSIGNER: URGENCY: STATUS: COMPLETED VistA Imaging - Scanned Document SCANNED DOCUMENT SIGNATURE NOT REQUIRED Electronically Filed: 05/28/2024 by: SHANNON GARDUNO [facility]
--- OUTSIDE RECORDS SUMMARY | 2024-06-23 14:04 | XMS_ITS ---
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 Organization [facility] Address [address] [place] [id number] Care Team Providers Care Occupational Safety And Health Manager Name Role Phone BYRON BARRON Primary Care [...] Dec 19, 2007 MEDICAR E SUPPLEM E [id number] NYDIA HUERTA UL PATIENT [employer] MEDICARE SUPPLEMEN YORDAN Dec 19, 2007 MEDICAR E SUPPLEM E [id number] [phone] NYDIA HUERTA UL PATIENT [employer] [place] MEDICARE SUPPLEMEN YORDAN BANKE RS Dec 19, 2007 NONE [id number] [phone] NYDIA HUERTA UL PATIENT MEDICARE (WNR) MEDICARE (M) PART B Oct 13, 2006 PART B [id number] [phone] NYDIA HUERTA UL PATIENT MEDICARE (WNR) MEDICARE (M) PART B Oct 13, 2006 PART B [id number] [place] UL PATIENT MEDICARE (WNR) MEDICARE (M) PART B Oct 13, 2006 PART B [id number] NYDIA HUERTA PATIENT MEDICARE (WNR) MEDICARE (M) PART B Oct 13, 2006 PART B [id number] [phone] NYDIA HUERTA PATIENT MEDICARE (WNR) MEDICARE (M) PART A Sep 13, 2003 PART A [id number] NYDIA HUERTA PATIENT MEDICARE (WNR) MEDICARE (M) PART A Sep 13, 2003 PART A [id number] [phone] NYDIA HUERTA PATIENT MEDICARE (WNR) MEDICARE (M) PART A Sep 13, 2003 PART A [id number] NYDIA HUERTA PATIENT MEDICARE (WNR) MEDICARE (M) PART A Sep 13, 2003 PART A [id number] NYDIA HUERTA PATIENT Selected Encounter This section includes the information on record at [place] for the Encounter. Date/Time Encounter Type Encounter Description Reason Pro vider Source 2023 01:48 PM Outpatient Encounter PRIMARY CARE/MEDICINE IHE Encounter Template Text not used by [place] Plan of Treatment: Future Appointments (+ 6 months) and Future Tests (+/- 45 days) The Plan of Treatment section includes future care activities for the patient from all [place] treatmentfacilities. This section includes future appointments and future orders which are active, pending or scheduled. Future Appointments This section includes appointments that were scheduled to occur 6 months from the date of the Encounter, up to a maximum of 20 appointments. The data comes from all [place] treatment facilities. Appointment Date/Time Appointment Type Appointme nt Facility Name Oct 16, 2023 01:30 PM AMBULATORY - MEDICINE [place] [facility] [place] [facility] Oct 24, 2023 09:00 AM AMBULATORY - NONE [facility] [place] [facility] December 05, 2023 10:00 AM AMBULATORY - NONE [facility] [place] [facility] Dec 30, 2023 11:00 AM AMBULATORY - REHAB MEDICIN E [facility] [place] [facility] Jan 13, 2024 01:20 PM AMBULATORY - MEDICINE [place] [facility] [place] [facility] Jan 21, 2024 08:00 AM AMBULATORY - MEDICINE [place] [facility] [place] [facility] Feb 03, 2024 01:30 PM AMBULATORY - REHAB MEDICIN E [facility] [place] [facility] Mar 05, 2024 08:00 AM [facility] Mar 05, 2024 09:00 AM [facility] Mar 06, 2024 08:00 AM AMBULATORY - MEDICINE [place] [facility] [place] [facility] Mar 24, 2024 02:00 PM AMBULATORY - MEDICINE [place] [facility] [place] [facility] Mar 31, 2024 09:30 [facility] Lab Results: +/- 30 days of the encounter This section includes the Chemistry and Hematology Lab Results on record with [place] for the patient. Radiology Reports and Pathology Reports are provided separately, in subsequent sections. Lab Results This section contains the Chemistry/Hematology Results that were resulted 30 days before or 30 daysafter the date of the Encounter. Date/Time Source Result Type Result - Unit Interpretation Reference Range Comment Oct 08, 2023 07:41 AM [facility] BASIC METABOLIC PANEL (fasting) Specimen Type: SERUM No comment entered. Ordering Provider: BYRON BARRON Report Released Date/Time: Oct 05, 2023 11:58 PM Reporting Lab: [address] [address] Performing Lab: [address] [address] UREA NITROGEN 16 mg/dL 7-25 GLUCOSE 102 mg/dL H 65-100 SODIUM 143 mmol/L 135-145 POTASSIUM 4.4 mmol/L 3.5-5.0 CHLORIDE 106 mmol/L 100-110 CO2 26 meq/L 20-30 CREATININE, Serum 1.01 mg/dL 0.50-1.40 eGFR(CKD-EPI 2020) 73 mL/min >60 Oct 08, 2023 07:41 AM [facility] CBC AND DIFF (AUTO) Specimen Type: BLOOD No comment entered. Ordering Provider: BYRON BARRON Report Released Date/Time: Oct 05, 2023 11:58 PM Reporting Lab: [facility] [address] [facility] [address] Performing Lab: [facility] [address] [facility] [address] WBC 7.99 10*3/uL 4.50-11.00 RBC 4.47 10*6/uL 4.23-5.66 HGB 14.6 g/dL 12.8-17 HCT 42.7 39.2-50.4 MCV 95.5 fL 82-99 MCHC 34.2 g/dL 30.8-35.1 PLT 126 10*3/uL L 140-360 RDW-CV 12.9 12.0-16.0 [place], Abs 0.79 10*3/uL 0.30-1.10 MCH 32.7 pg H 26.2-32.6 Neut % 54.5 43.7-75.8 Lymph % 33.3 14.0-42.3 [place] % 9.9 5.1-13.7 Eos % 1.4 0.4-6.8 Baso % 0.6 0.1-2.0 Neut, Abs 4.36 10*3/uL 2.20-7.60 Lymph, Abs 2.66 10*3/uL 1.00-3.20 Eos, Abs 0.11 10*3/uL 0.03-0.44 Baso, Abs 0.05 10*3/uL 0.01-0.13 Immature Gran % 0.3 0.0-0.7 Immature Gran, Abs 0.02 10*3/uL 0.00-0.06 Oct 08, 2023 07:41 AM [facility] LIVER FUNCTION Specimen Type: SERUM No comment entered. Ordering Provider: BYRON BARRON Report Released Date/Time: Oct 05, 2023 11:58 PM Reporting Lab: [facility] [address] [facility] [address] Performing Lab: [address] [address] PROTEIN,TOTAL 6.6 g/dL 6.0-8.3 ALBUMIN 3.8 g/dL 3.5-5.0 ALKALINE PHOSPHATASE 103 U/L 40-150 AST 33 U/L 5-34 ALT 29 U/L BILIRUBIN, TOTAL 0.7 mg/dL 0.2-1.2 Oct 08, 2023 07:41 AM [facility] LIPID PANEL FASTING Specimen Type: SERUM No comment entered. Ordering Provider: BYRON BARRON Report Released Date/Time: Oct 05, 2023 11:58 PM Reporting Lab: [facility] [address] [facility] [address] Performing Lab: [address] [address] CHOLESTEROL 133 mg/dL TRIGLYCERIDE 98 mg/dL 0-150 LDL calculated 70 mg/dL 0-129 CHOL/HDL 3.1 HDL CHOLESTEROL 43 mg/dL 40-60 Oct 08, 2023 07:41 AM [facility] TSH Specimen Type: SERUM No comment entered. Ordering Provider: BYRON BARRON Report Released Date/Time: Oct 05, 2023 11:58 PM Reporting Lab: [facility] [address] [facility] [address] Performing Lab: [address] [address] TSH 2.46 u[IU]/mL 0.35-5.00 Oct 08, 2023 07:41 AM [facility] URINALYSIS CLEAN CATCH Specimen Type: URINE Comment: If Glucose = >500 and Ketones are positive, please alert the Physician. Ordering Provider: BYRON BARRON Report Released Date/Time: Oct 05, 2023 11:58 PM Reporting Lab: [address] [address] Performing Lab: [address] [address] UA COLOR Light-Yellow Yellow UA APPEARANCE Clear Clear UA GLUCOSE NEGATIVE mg/dL Negative UA KETONES NEGATIVE mg/dL Negative UA BLOOD NEGATIVE mg/dL Negative UA PROTEIN NEGATIVE mg/dL Negative UA NITRITE NEGATIVE mg/dL Negative UA BILIRUBIN NEGATIVE mg/dL Negative UA SPECIFIC GRAVITY 1.018 1.016-1.022 UA pH 7.0 5.0-9.0 UA UROBILINOGEN <2.0 mg/dL <2.0 UA LEUKOCYTE NEGATIVE Negative Social History: Smoking Status (Most current) and Tobacco Use (All prior to encounter date) This section includes the most current, and the historical, smoking and tobacco- related health factors from the [place] facility where the Encounter took place. Current Smoking Status This section includes the most current smoking, or tobacco-related health factor, from the [place] facility where the Encounter took place. Date/Time Current Smoking Status Comment Facil ity Jul 04, 2022 11:00 AM [place]-TOBACCO [facility]ER [facility] Tobacco Use History This section includes a history of the smoking, or tobacco-related health factors, that were collected on or before the date of the Encounter. The data comes from the [place] facility where the Encounter took place. Date/Time Smoking Status/Tobacco Use Comment F acility Jul 04, 2022 11:00 AM [facility]-TOBACCO QUIT 15 YRS OR MORE [facility] Jun 28, 2021 10:30 AM VA-TOBACCO FORMER USER [place] [facility] [place] [facility] Jun 28, 2021 10:30 AM [place]-TOBACCO QUIT 15 YRS OR MORE [facility] [place] [facility] May 26, 2020 08:00 AM VA-TOBACCO FORMER USER [place] [facility] [place] [facility] May 26, 2020 08:00 AM [facility] [place] [facility] May 23, 2018 11:21 AM [facility]-TOBACCO NEVER USED [facility] Advance Directives: All historical and current Section Date Range: From patient's date of to the date document was created. This section includes ALL of a patient's completed or amended [place] Advance and Rescinded Directives. The entries below indicate that a directive exists for the patient, but an actual copy is not included with this document. The data comes from all [place] facilities. Date Advance Directives Provider Source Feb 19, 2022 ADVANCE DIRECTIVE JOCE CASTORENA [facility] November 16, 2020 ADVANCE DIRECTIVE BYRON BARRON [facility] Encounter Notes: All associated encounter notes This section contains the clinical notes associated to the Encounter. Date/Time Encounter Note(s) Provider Source 2023 01:48 PM ADMINISTRATIVE NOTE: LOCAL TITLE: ADMINISTRATIVE NOTE STANDARD TITLE: ADMINISTRATIVE NOTE DATE OF NOTE: 2023@13:48 ENTRY DATE: 2023@13:48:09 AUTHOR: JOCE CASTORENA EXP COSIGNER: URGENCY: STATUS: COMPLETED Reminder call for your upcoming Primary Care Appointment and the need for preparations prior to your upcoming appt. [ ] Location in [facility] [X] Fasting labs - LABS ARE COMPLETED [ ] Lab work within 30 days [ ] Urine [ ] No Preparation Action taken: [ ] Called , left voice message [ ] Called , unable to leave voice mail [X] Spoke to /healthcare associate to remind them of upcoming appt/preparations Upcoming Appointments: 10/16/2023 13:30 CWM/NO/PACT 2 02/04/2024 15:30 NHM/OPTOMETRY/[place]/ 04/28/2024 14:00 CWM/NO/DERMATOLOGY C /es/ JOCE CASTORENA AMSA Signed: 2023 13:48 JOCE CASTORENA [facility]
--- OUTSIDE RECORDS SUMMARY | 2024-06-23 14:04 | XMS_ITS ---
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 [facility] [place] Address [address] [place] [address] Care Team Providers Care Section Weaver Name Role Phone JOSUE BARRON Primary Care Provider Unavailabl e Insurance [...] Dec 19, 2007 MEDICAR E SUPPLEM E [id number] [phone] NYDIA HUERTA PATIENT [employer] MEDICARE SUPPLEMEN YORDAN Dec 19, 2007 MEDICAR E SUPPLEM E [id number] NYDIA HUERTA UL PATIENT [employer] [place] MEDICARE SUPPLEMEN YORDAN BANKE RS Dec 19, 2007 NONE [id number] [phone] NYDIA HUERTA PATIENT MEDICARE (WNR) MEDICARE (M) PART B Oct 13, 2006 PART B [id number] NYDIA HUERTA UL PATIENT MEDICARE (WNR) MEDICARE (M) PART B Oct 13, 2006 PART B [id number] [phone] NYDIA HUERTA PATIENT MEDICARE (WNR) MEDICARE (M) PART B Oct 13, 2006 PART B [id number] NYDIA HUERTA PATIENT MEDICARE (WNR) MEDICARE (M) PART B Oct 13, 2006 PART B [id number] NYDIA HUERTA PATIENT MEDICARE (WNR) MEDICARE (M) PART A Sep 13, 2003 PART A [id number] NYDIA HUERTA PATIENT MEDICARE (WNR) MEDICARE (M) PART A Sep 13, 2003 PART A [id number] [phone] NYDIA HUERTA PATIENT MEDICARE (WNR) MEDICARE (M) PART A Sep 13, 2003 PART A [id number] NYDIA HUERTA PATIENT MEDICARE (WNR) MEDICARE (M) PART A Sep 13, 2003 PART A [id number] [phone] NYDIA HUERTA PATIENT Selected Encounter This section includes the information on record at [place] for the Encounter. Date/Time Encounter Type Encounter Description Reason Provider Source Oct 16, 2023 01:30 PM OFFICE O/P EST LOW 20 MIN PRIMARY CARE/MEDICINE ICD-10-CM H67.3 Otitis media in diseases classified elsewhere, bilateral JOSUE BARRON [facility] Encounter Template Text not used by [place] Assessments - Encounter Diagnoses This section includes the primary and secondary diagnoses documented for the Encounter. Date/Time Primary/Secondary Diagnosis Diagnosis Name Provider Source Nov 08, 2023 08:48 AM PRIMARY Otitis media in diseases classified elsewhere, bilateral JOSUE [facility]ARRON [facility] Nov 08, 2023 08:48 AM SECONDARY Dermatitis, unspecified JOSUE ABRRON [facility] [place] [facility] Nov 08, 2023 08:48 AM SECONDARY Encounter for immunization JOSUE BARRON [facility] Plan of Treatment: Future Appointments (+ [...] Appointment Type Appointme nt Facility Name Oct 24, 2023 09:00 AM AMBULATORY [facility] NONE [facility] [place] [facility] December 05, 2023 10:00 AM AMBULATORY - NONE [facility] [place] [facility] Dec 30, 2023 11:00 AM AMBULATORY - REHAB MEDICIN E [facility] [place] [facility] Jan 13, 2024 01:20 PM AMBULATORY - MEDICINE [facility] [place] [facility] Jan 21, 2024 08:00 AM AMBULATORY - MEDICINE [facility] [place] [facility] Feb 03, 2024 01:30 PM AMBULATORY - REHAB MEDICIN E [facility] [place] [facility] Mar [...] 13, 2024 01:30 PM AMBULATORY - MEDICINE [place] [facility] [place] [facility] Lab Results: +/- 30 days of the encounter This section includes the Chemistry and Hematology Lab Results on record with [place] for the patient. Radiology Reports and Pathology Reports are provided separately, in subsequent sections. Lab Results This section contains the Chemistry/Hematology Results that were resulted 30 days before or 30 daysafter the date of the Encounter. Date/Time Source Result Type Result - Unit Interpretation Reference Range Comment Oct 08, 2023 07:41 AM [place] [facility] [place] [facility] BASIC METABOLIC PANEL (fasting) Specimen Type: SERUM No comment entered. Ordering Provider: JOSUE BARRON Report Released Date/Time: Oct 05, 2023 11:58 PM Reporting Lab: [facility] [address] [address] Performing Lab: [facility] [address] [facility] [address] UREA NITROGEN 16 mg/dL 7-25 GLUCOSE 102 mg/dL H 65-100 SODIUM 143 mmol/L 135-145 POTASSIUM 4.4 mmol/L 3.5-5.0 CHLORIDE 106 mmol/L 100-110 CO2 26 meq/L 20-30 CREATININE, Serum 1.01 mg/dL 0.50-1.40 eGFR(CKD-EPI 2020) 73 mL/min >60 Oct 08, 2023 07:41 AM [facility] CBC AND DIFF (AUTO) Specimen Type: BLOOD No comment entered. Ordering Provider: JOSUE BARRON Report Released Date/Time: Oct 05, 2023 11:58 PM Reporting Lab: [facility] [address] [facility] [address] Performing Lab: [facility] [address] [facility] [address] WBC 7.99 10*3/uL 4.50-11.00 RBC 4.47 10*6/uL 4.23-5.66 HGB 14.6 g/dL 12.8-17 HCT 42.7 39.2-50.4 MCV 95.5 fL 82-99 MCHC 34.2 g/dL 30.8-35.1 PLT 126 10*3/uL L 140-360 RDW-CV 12.9 12.0-16.0 Mcdonough, Abs 0.79 10*3/uL 0.30-1.10 MCH 32.7 pg H 26.2-32.6 Neut % 54.5 43.7-75.8 Lymph % 33.3 14.0-42.3 Mcdonough % 9.9 5.1-13.7 Eos % 1.4 0.4-6.8 Baso % 0.6 0.1-2.0 Neut, Abs 4.36 10*3/uL 2.20-7.60 Lymph, Abs 2.66 10*3/uL 1.00-3.20 Eos, Abs 0.11 10*3/uL 0.03-0.44 Baso, Abs 0.05 10*3/uL 0.01-0.13 Immature Gran % 0.3 0.0-0.7 Immature Gran, Abs 0.02 10*3/uL 0.00-0.06 Oct 08, 2023 07:41 AM [facility] LIVER FUNCTION Specimen Type: SERUM No comment entered. Ordering Provider: JOSUE BARRON Report Released Date/Time: Oct 05, 2023 11:58 PM Reporting Lab: [address] [address] Performing Lab: [address] [address] PROTEIN,TOTAL 6.6 g/dL 6.0-8.3 ALBUMIN 3.8 g/dL 3.5-5.0 ALKALINE PHOSPHATASE 103 U/L 40-150 AST 33 U/L 5-34 ALT 29 U/L BILIRUBIN, TOTAL 0.7 mg/dL 0.2-1.2 Oct 08, 2023 07:41 AM [facility] LIPID PANEL FASTING Specimen Type: SERUM No comment entered. Ordering Provider: JOSUE BARRON Report Released Date/Time: Oct 05, 2023 11:58 PM Reporting Lab: [address] [address] Performing Lab: [address] [address] CHOLESTEROL 133 mg/dL TRIGLYCERIDE 98 mg/dL 0-150 LDL calculated 70 mg/dL 0-129 CHOL/HDL 3.1 HDL CHOLESTEROL 43 mg/dL 40-60 Oct 08, 2023 07:41 AM [facility] TSH Specimen Type: SERUM No comment entered. Ordering Provider: JSOUE BARRON Report Released Date/Time: Oct 05, 2023 11:58 PM Reporting Lab: [address] [address] Performing Lab: [address] [address] TSH 2.46 u[IU]/mL 0.35-5.00 Oct 08, 2023 07:41 AM [facility] URINALYSIS CLEAN CATCH Specimen Type: URINE Comment: If Glucose = >500 and Ketones are positive, please alert the Physician. Ordering Provider: JOSUE BARRON Report Released Date/Time: Oct 05, 2023 11:58 PM Reporting Lab: [facility] [address] [facility] [address] Performing Lab: [facility] [address] [facility] [address] UA COLOR Light-Yellow Yellow UA APPEARANCE Clear Clear UA GLUCOSE NEGATIVE mg/dL Negative UA KETONES NEGATIVE mg/dL Negative UA BLOOD NEGATIVE mg/dL Negative UA PROTEIN NEGATIVE mg/dL Negative UA NITRITE NEGATIVE mg/dL Negative UA BILIRUBIN NEGATIVE mg/dL Negative UA SPECIFIC GRAVITY 1.018 1.016-1.022 UA pH 7.0 5.0-9.0 UA UROBILINOGEN <2.0 mg/dL <2.0 UA LEUKOCYTE NEGATIVE Negative Vital Signs: All taken on the encounter date This section contains inpatient and outpatient Vital Signs collected on the date of the Encounter. Date/Time Temperature Pulse Blood Pressure Respiratory Rate SP02 Pain Height Weight Body Mass Index Source Oct 16, 2023 01:44 PM 128/76 [facility] Oct 16, 2023 01:15 PM 98.2 86 140/72 16 98 0 211 35 [facility] Immunizations: All administered on the encounter date This section contains immunizations associated to the Encounter. Immunization Series Date Issued Reaction Comments COVID-19 (MODERNA), MRNA, LN P-S, PF, 50 MCG/0.5 ML (AGES 12+ YEARS) 1 Oct 16, 2023 Social History: Smoking Status (Most current) and [...] blum Oct 16, 2023 01:30 PM VA-TOBACCO QUIT 15 YRS OR MORE [facility] Tobacco Use History This section includes a history of the smoking, or tobacco-related health factors, that were collected on or before the date of the Encounter. The data comes from the [place] facility where the Encounter took place. Date/Time Smoking Status/Tobacco Use Comment F acility Oct 16, 2023 01:30 PM VA-TOBACCO QUIT 15 YRS OR MORE [facility] [place] [facility] Jul 04, 2022 11:00 AM VA-TOBACCO FORMER USER [place] [facility] [place] [facility] Jul 04, 2022 11:00 AM VA-TOBACCO QUIT 15 YRS OR MORE [facility] [place] [facility] Jun 28, 2021 10:30 AM VA-TOBACCO FORMER USER [place] [facility] [place] [facility] Jun 28, 2021 10:30 AM VA-TOBACCO QUIT 15 YRS OR MORE [facility] [place] [facility] May 26, 2020 08:00 AM VA-TOBACCO FORMER USER [facility] [place] [facility] May 26, 2020 08:00 AM VA-TOBACCO QUIT 15 YRS OR MORE [facility] [place] [facility] May 23, 2018 11:21 AM [facility]TOBACCO [facility]ED [facility] Advance Directives: All historical and [...] Feb 19, 2022 ADVANCE DIRECTIVE JOCE CASTORENA [facility] November 16, 2020 ADVANCE DIRECTIVE JOSUE BARRON [facility] Encounter Notes: All associated encounter notes This section contains the clinical notes associated to the Encounter. Date/Time Encounter Note(s) Provider Source Oct 16, 2023 01:55 PM PREVENTIVE MEDICINE NURSING NOTE: LOCAL TITLE: CLINICAL REMINDERS/NURSING STANDARD TITLE: PREVENTIVE MEDICINE NURSING NOTE DATE OF NOTE: OCT 16, 2023@13:55 ENTRY DATE: OCT 16, 2023@13:55:27 AUTHOR: EARLE ANDRADE EXP COSIGNER: URGENCY: STATUS: COMPLETED COVID-19 Immunization: Moderna Monovalent (Spikevax) Administered: COVID-19 (MODERNA), MRNA, LNP-S, PF, 50 MCG/0.5 ML (AGES 12+ YEARS) Date Administered: Oct 16, 2023 13:30 Series: Series 1 Radar Engineer: [employer]. Lot: [id number] Exp Date: Nov 06, 2023 [facility]: [phone] Admin Route/Site: INTRAMUSCULAR/LEFT DELTOID Dosage: 0.3mL Vaccine Information Statement(s): COVID-19 MRNA VACCINE (12+ YRS) VACCINE VIS May 02, 2023 (EMIRATI) Order By: Policy Administered By: Earle Andrade Vaccine administered without complications. The patient was advised to remain in the facility for 15 minutes post vaccination. /eleanor/ EARLE ANDRADE LPN Signed: 10/16/2023 13:56 KANDICE ANDRADE [place] [facility] [place] [facility] Oct 16, 2023 01:49 PM PHYSICIAN NOTE: LOCAL TITLE: MD NOTE STANDARD TITLE: PHYSICIAN NOTE DATE OF NOTE: OCT 16, 2023@13:49 ENTRY DATE: OCT 16, 2023@13:49:48 AUTHOR: JOSUE BARRON EXP COSIGNER: URGENCY: STATUS: COMPLETED Patient Name: ALYCIA HUERTA VITALS: Patient temperature: 98.2 F [36.8 C] (10/16/2023 13:15) Blood pressure: 128/76 (10/16/2023 13:44) Patient height: 65 in [165.1 cm] (05/28/2019 07:58) Patient weight: 211 lb [95.71 kg] (10/16/2023 13:15) Patient BMI: BMI: 35.2 Patient pulse: 86 (10/16/2023 13:15) Patient respiration: 16 (10/16/2023 13:15) Patient Pulse Oximetry: 98% (10/16/2023 13:15) Pain Ratin (10/16/2023 13:15) Active [facility] Medications: Active Outpatient Medications (including Supplies): Active Outpatient Medications Status 1) ATORVASTATIN CALCIUM 80MG TAB TAKE ONE TABLET BY ACTIVE MOUTH AT BEDTIME 2) CLOPIDOGREL BISULFATE 75MG TAB TAKE ONE TABLET BY ACTIVE MOUTH ONCE DAILY 3) EZETIMIBE 10MG TAB TAKE ONE TABLET BY MOUTH ONCE ACTIVE DAILY TO LOWER CHOLESTEROL 4) FLUTICAS 250/SALMETEROL 50 INHL DISK 60 INHALE 1 PUFF ACTIVE BY MOUTH TWICE DAILY - RINSE MOUTH AFTER USE 5) FLUTICASONE PROP 50MCG 120D NASAL INHL INSTILL 1 ACTIVE SPRAY INTO EACH NOSTRIL ONCE DAILY NEEDED FOR NASAL IRRITATION/INFLAMMATION 6) HYDROCHLOROTHIAZIDE 25MG TAB TAKE ONE TABLET BY MOUTH ACTIVE ONCE DAILY 7) METOPROLOL SUCCINATE 50MG SA TAB TAKE ONE TABLET BY ACTIVE MOUTH ONCE DAILY FOR BLOOD PRESSURE/HEART Pending Outpatient Medications Status 1) AMOXICILLIN 875/CLAV K 125MG TAB TAKE 1 TABLET BY PENDING MOUTH TWICE DAILY FOR INFECTION Active Non-VA Medications Status 1) Non-VA ASPIRIN 81MG CHEW TAB 81MG BY MOUTH ONCE DAILY ACTIVE 9 Total Medications Remote Medications: No Active 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 No fever, chills, stiff neck, chest pain, chest congestion, sinus congestion, sputum vomiting or diarrhea. He says it feels like an ear infection Review of systems No chest pain or dyspnea No abdominal pain No trouble urinating No fever or chills No cough Physical examination Well-developed well-nourished male no acute distress Coronary no murmur Lungs clear Ears mild erythema TMs normal Neck supple Mucous membranes moist Rash several dot-like pinpoint erythematous areas on midsection back Color, Urine (AX 4280): Light-Yellow Appearance, Urine (AX 4280): Clear Glucose, Urine (AX 4280): NEGATIVE Ketones, Urine (AX 4280): NEGATIVE Blood, Urine (AX 4280): NEGATIVE Protein, Urine (AX 4280): NEGATIVE Nitrite, Urine (AX 4280): NEGATIVE Bilirubin, Urine (AX 4280): NEGATIVE Specific Suring, (AX 4280): 1.018 pH, Urine ([id number]): 7.0 Urobilinogen, Urine (AX 4280): <2.0 Leukocyte Esterase, (AX 4280): NEGATIVE GLUCOSE: 102 H UREA NITROGEN: 16 SODIUM: 143 POTASSIUM: 4.4 CHLORIDE: 106 CO2: 26 CHOLESTEROL: 133 PROTEIN,TOTAL: 6.6 ALBUMIN: 3.8 ALKALINE PHOSPHATASE: 103 SGOT: 33 SGPT: 29 TRIGLYCERIDE: 98 LDL CHOL: 70 CHOL/HDL RATIO: 3.1 HDL: 43 BILIRUBIN,TOT.: 0.7 TSH (Access): 2.46 CREATININE-EGFR: 1.01 eGFR CKD-EPI 2020: 73 WBC: 7.99 RBC: 4.47 HGB: 14.6 HCT: 42.7 MCV: 95.5 MCHC: 34.2 RDW: 12.9 PLT: 126 L MCH: 32.7 H Neut %: 54.5 Lymph %: 33.3 Mcdonough %: 9.9 Eos %: 1.4 Baso %: 0.6 Neut, Abs: 4.36 Lymph, Abs: 2.66 Mcdonough, Abs: 0.79 Eos, Abs: 0.11 Baso, Abs: 0.05 Immature Granulocytes %: 0.3 Immature Granulocytes, Abs: 0.02 I discussed above test results with patient Assessment and plan: 1. Bilateral otitis media: No signs of pneumonia or meningitis Plan: Augmentin 2. Rash on back: Pruritic over the past 6 months Plan: Dermatology Follow-up 6 months clinic visit and lab Medication Reconciliation: Outpatient: Has the patient been taking medications as documented in the EMLR? YES: The patient has been taking medications as documented in the EMLR. Essential Medication List for Review used to complete this medication reconciliation. INCLUDED IN THIS LIST: Alphabetical list of active outpatient prescriptions dispensed from this [place] (local) and dispensed from another VA or [facility] facility (remote) as well as [...] next appointment, whether with a VA or non-VA provider. /es/ Josue Latham. MD Iris Staff Physician Signed: 10/16/2023 13:57 JOSUE BARRON [place] [facility] [place] [facility] Oct 16, 2023 01:18 PM PREVENTIVE MEDICINE NURSING NOTE: LOCAL TITLE: CLINICAL REMINDERS/NURSING STANDARD TITLE: PREVENTIVE MEDICINE NURSING NOTE DATE OF NOTE: OCT 16, 2023@13:18 ENTRY DATE: OCT 16, 2023@13:18:20 AUTHOR: EARLE ANDRADE EXP ROWANIGNER: URGENCY: STATUS: COMPLETED CLINICAL REMINDERS/NURSING Has ADDENDA Depression Screening: Perform PHQ-2 A PHQ-2 screen was performed. The score was 0 which is a negative screen for depression. Over the past two weeks, how often have you been bothered by the following problems? 1. Little interest or pleasure in doing things Not at all 2. Feeling down, depressed, or hopeless Not at all Tobacco Use Screening: The patient is a former tobacco user. The patient quit fifteen or more years ago. Alcohol Use Screen (AUDIT-C): Alcohol Screen: SCREEN FOR ALCOHOL (AUDIT-C) An alcohol screening test (AUDIT-C) was negative (score=2). 1. How often did you have a drink containing alcohol in the past year? Consider a drink to be a 12 ounce can or bottle of regular beer, 8 ounces of malt liquor, a 5 ounce glass of table wine, or a 1.5 ounce shot of liquor (like scotch, gin, or vodka). Two to four times a month 2. How many drinks containing alcohol did you have on a typical day when you were drinking in the past year? One or two drinks 3. How often did you have six or more drinks on one occasion in the past year? Never /es/ EARLE ANDRADE LPN Signed: 10/16/2023 13:20 10/16/2023 ADDENDUM STATUS: COMPLETED Homelessness/Food Insecurity Screen: In the past 2 months, have you been living in stable housing that you own, rent, or stay in as part of a household? Yes - Living in stable housing. Are you worried or concerned that in the next 2 months you may NOT have stable housing that you own, rent, or stay in as part of a household? No - Not worried about housing near future The reports the following: Within the past 12 months, you worried whether your food would run out before you got money to buy more. Never true Within the past 12 months, the food you bought just didn't last and you didn't have money to get more. Never true /es/ EARLE ANDRADE LPN Signed: 10/16/2023 13:21 KANDICE ANDRADE [facility]
--- OUTSIDE RECORDS SUMMARY | 2024-06-23 14:05 | XMS_ITS | Encounter Summary ---
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 Name Role Phone BYRON BARRON Primary [...] Dec 19, 2007 MEDICAR E SUPPLEM E [id number] NYDIA HUERTA UL PATIENT [employer] MEDICARE SUPPLEMEN YORDAN Dec 19, 2007 MEDICAR E SUPPLEM E [id number] NYDIA HUERTA UL PATIENT [employer] [place] MEDICARE SUPPLEMEN YORDAN BANKE RS Dec 19, 2007 NONE [id number] [phone] NYDIA HUERTA UL PATIENT MEDICARE (WNR) MEDICARE (M) PART B Oct 13, 2006 PART B [id number] NYDIA HUERTA UL PATIENT MEDICARE (WNR) MEDICARE (M) PART B Oct 13, 2006 PART B [id number] [place] UL PATIENT MEDICARE (WNR) MEDICARE (M) PART B Oct 13, 2006 PART B [id number] [phone] NYDIA HUERTA PATIENT MEDICARE (WNR) MEDICARE (M) PART B Oct 13, 2006 PART B [id number] NYDIA HUERTA PATIENT MEDICARE (WNR) MEDICARE (M) PART A Sep 13, 2003 PART A [id number] NYDIA HUERTA PATIENT MEDICARE (WNR) MEDICARE (M) PART A Sep 13, 2003 PART A [id number] NYDIA HUERTA PATIENT MEDICARE (WNR) MEDICARE (M) PART A Sep 13, 2003 PART A [id number] [phone] NYDIA HUERTA PATIENT MEDICARE (WNR) MEDICARE (M) PART A Sep 13, 2003 PART A [id number] NYDIA HUERTA PATIENT Selected Encounter This section includes the information on record at OR for the Encounter. Date/Time Encounter Type Encounter Description Reason Provider Source Oct 24, 2023 09:00 AM UNLISTED SPEC DERM SVC/PX DERMATOLOGY ICD-10-CM Z13.89 Encounter for screening for other disorder SALMA BEAUCHAMP [facility] Encounter Template Text not used by OR Assessments - Encounter Diagnoses This section includes the primary and secondary diagnoses documented for the Encounter. Date/Time Primary/Secondary Diagnosis Diagnosis Name Provider Source November 15, 2023 11:50 AM PRIMARY Encounter for screening for other disorder SALMA BEAUCHAMP [facility] Plan of Treatment: Future Appointments (+ 6 months) and Future Tests (+/- 45 days) The Plan of Treatment section includes future care activities for the patient from all OR treatmentfacilities. This section includes future appointments and future orders which are active, pending or scheduled. Future Appointments This section includes appointments that were scheduled to occur 6 months from the date of the Encounter, up to a maximum of 20 appointments. The data comes from all OR treatment facilities. Appointment Date/Time Appointment Type Appointme nt Facility Name December 05, 2023 10:00 AM AMBULATORY - NONE [facility] Dec 30, 2023 11:00 AM AM[facility]ULATORY [facility] [place] [facility] Jan 13, 2024 01:20 PM AM[facility]ULATORY [facility] MEDICINE [facility] [place] [facility] Jan 21, 2024 08:00 AM [facility]ATORY [facility] MEDICINE [facility] [place] [facility] Feb 03, 2024 01:30 PM AMBULATORY - RE[facility]AB MEDICIN E [facility] [place] [facility] Mar 05, 2024 08:00 AM [facility]ATORY [facility] MEDICINE [facility] [place] [facility] Mar 05, 2024 09:00 AM [facility]ATORY [facility] MEDICINE [facility] [place] [facility] Mar 06, 2024 08:00 AM [facility]ATORY [facility] MEDICINE [facility] [place] [facility] Mar 24, 2024 02:00 PM AMBULATORY - MEDICINE [facility] [place] [facility] Mar 31, 2024 09:30 AM AMBULATORY - REHAB MEDICIN E [facility] [place] [facility] Apr 13, 2024 01:30 PM [facility] Lab Results: +/- 30 days of the encounter This section includes the Chemistry and Hematology Lab Results on record with OR for the patient. Radiology Reports and Pathology Reports are provided separately, in subsequent sections. Lab Results This section contains the Chemistry/Hematology Results that were resulted 30 days before or 30 daysafter the date of the Encounter. Date/Time Source Result Type Result - Unit Interpretation Reference Range Comment Oct 08, 2023 07:41 AM [facility] BASIC METABOLIC PANEL (fasting) Specimen Type: SERUM No comment entered. Ordering Provider: BYRON BARRON Report Released Date/Time: Oct 05, 2023 11:58 PM Reporting Lab: [facility] [address] [facility] [address] Performing Lab: [facility] [address] [address] UREA NITROGEN 16 mg/dL 7-25 GLUCOSE 102 mg/dL H 65-100 SODIUM 143 mmol/L 135-145 POTASSIUM 4.4 mmol/L 3.5-5.0 CHLORIDE 106 mmol/L 100-110 CO2 26 meq/L 20-30 CREATININE, Serum 1.01 mg/dL 0.50-1.40 eGFR(CKD-EPI 2020) 73 mL/min >60 Oct 08, 2023 07:41 AM [facility] LIVER FUNCTION Specimen Type: SERUM No comment entered. Ordering Provider: BYRON BARRON Report Released Date/Time: Oct 05, 2023 11:58 PM Reporting Lab: [address] [address] Performing Lab: [address] [address] PROTEIN,TOTAL 6.6 g/dL 6.0-8.3 ALBUMIN 3.8 g/dL 3.5-5.0 ALKALINE PHOSPHATASE 103 U/L 40-150 AST 33 U/L 5-34 ALT 29 U/L BILIRUBIN, TOTAL 0.7 mg/dL 0.2-1.2 Oct 08, 2023 07:41 AM [facility] CBC AND DIFF (AUTO) Specimen Type: BLOOD No comment entered. Ordering Provider: BYRON BARRON Report Released Date/Time: Oct 05, 2023 11:58 PM Reporting Lab: [address] [address] Performing Lab: [address] [address] WBC 7.99 10*3/uL 4.50-11.00 RBC 4.47 10*6/uL 4.23-5.66 HGB 14.6 g/dL 12.8-17 HCT 42.7 39.2-50.4 MCV 95.5 fL 82-99 MCHC 34.2 g/dL 30.8-35.1 PLT 126 10*3/uL L 140-360 RDW-CV 12.9 12.0-16.0 [place], Abs 0.79 10*3/uL 0.30-1.10 MCH 32.7 pg H 26.2-32.6 Neut % 54.5 43.7-75.8 Lymph % 33.3 14.0-42.3 [place] % 9.9 5.1-13.7 Eos % 1.4 0.4-6.8 Baso % 0.6 0.1-2.0 Neut, Abs 4.36 10*3/uL 2.20-7.60 Lymph, Abs 2.66 10*3/uL 1.00-3.20 Eos, Abs 0.11 10*3/uL 0.03-0.44 Baso, Abs 0.05 10*3/uL 0.01-0.13 Immature Gran % 0.3 0.0-0.7 Immature Gran, Abs 0.02 10*3/uL 0.00-0.06 Oct 08, 2023 07:41 AM [facility] LIPID PANEL FASTING Specimen Type: SERUM No comment entered. Ordering Provider: BYRON BARRON Report Released Date/Time: Oct 05, 2023 11:58 PM Reporting Lab: [address] [address] Performing Lab: [address] [address] CHOLESTEROL 133 mg/dL TRIGLYCERIDE 98 mg/dL 0-150 LDL calculated 70 mg/dL 0-129 CHOL/HDL 3.1 HDL CHOLESTEROL 43 mg/dL 40-60 Oct 08, 2023 07:41 AM [facility] TSH Specimen Type: SERUM No comment entered. Ordering Provider: BYRON BARRON Report Released Date/Time: Oct 05, 2023 11:58 PM Reporting Lab: [address] [address] Performing [facility]: [facility] [address] TSH 2.46 u[IU]/mL 0.35-5.00 Oct 08, 2023 07:41 AM [facility] URINALYSIS CLEAN CATCH Specimen Type: URINE Comment: If Glucose = >500 and Ketones are positive, please alert the Physician. Ordering Provider: BYRON BARRON Report Released Date/Time: Oct 05, 2023 11:58 PM Reporting Lab: [address] [address] Performing Lab: [facility] [address] UA COLOR Light-Yellow Yellow UA APPEARANCE Clear [...] and tobacco- related health factors from the OR facility where the Encounter took place. Current Smoking Status This section includes the most current smoking, or tobacco-related health factor, from the OR facility where the Encounter took place. Date/Time Current Smoking Status Comment Facil ity Oct 16, 2023 01:30 PM VA-TOBACCO QUIT 15 YRS OR MORE [facility] [place] [facility] Tobacco Use History This section includes a history of the smoking, or tobacco-related health factors, that were collected on or before the date of the Encounter. The data comes from the OR facility where the Encounter took place. Date/Time Smoking Status/Tobacco Use Comment F acility Oct 16, 2023 01:30 PM VA-TOBACCO QUIT 15 YRS OR MORE [facility] [place] [facility] Jul 04, 2022 11:00 AM VA-TOBACCO FORMER USER [facility] [place] [facility] Jul 04, 2022 11:00 AM VA-TOBACCO QUIT 15 YRS OR MORE [facility] [place] [facility] Jun 28, 2021 10:30 AM VA-TOBACCO FORMER USER [facility] [place] [facility] Jun 28, 2021 10:30 AM VA-TOBACCO QUIT 15 YRS OR MORE [facility] [place] [facility] May 26, 2020 08:00 AM VA-TOBACCO FORMER USER [facility] [place] [facility] May 26, 2020 08:00 AM VA-TOBACCO QUIT 15 YRS OR MORE [facility] [place] [facility] May 23, 2018 11:21 AM VA-TOBACCO NEVER USED [place] [facility] [place] [facility] Advance Directives: All historical and current Section Date Range: From patient's date of to the date document was created. This section includes ALL of a patient's completed or amended OR Advance and Rescinded Directives. The entries below indicate that a directive exists for the patient, but an actual copy is not included with this document. The data comes from all OR facilities. Date Advance Directives Provider Source Feb 19, 2022 ADVANCE DIRECTIVE KELLJOCE ARROYOAN [facility] November 16, 2020 ADVANCE DIRECTIVE BYRON BARRON [facility] Encounter Notes: All associated encounter notes This section contains the clinical notes associated to the Encounter. Date/Time Encounter Note(s) Provider Source Oct 24, 2023 08:39 AM TELEHEALTH CONSULT : LOCAL TITLE: CONSULT REPORT/TELEDERMATOLOGY IMAGING REQUEST STANDARD TITLE: TELEHEALTH CONSULT DATE OF NOTE: OCT 24, 2023@08:39 ENTRY DATE: OCT 24, 2023@08:42:04 AUTHOR: SALMA BEAUCHAMP EXP COSIGNER: URGENCY: STATUS: COMPLETED Teledermatology Consult Request The patient was educated regarding the Teledermatology process at this encounter. Comment: Imaged per providers direction and facility protocol Patient DOES consent to have images taken, viewed, and interpreted using the Teledermatology process. This consult addresses: A new condition Images were acquired: In clinic HISTORY: Prior skin history: Yes cancerous lesions on his face has been removed. Have you had a skin cancer before? Basal Cell Carcinoma (BCC) Patient reports no family history of melanoma. Taking new med/supplements: None reported Immunosuppression history: None reported Other significant history: None reported Chief Complaint: Pruritic rash on back may back feels cold and soar from arthritis PROBLEM A LOCATION(S): Upper Extremity Back DURATION: Months and comes and goes and I can't see it just feel it SYMPTOMS: Itch CHANGES: Other unknown TREATMENT: No BIOPSY: No Fabric Worker's comments: Imaged per providers direction and facility protocol /eleanor/ SALMA BEAUCHAMP TELEHEALTH CLINICAL HOME SERVICE DEMONSTRATOR Signed: 10/24/2023 09:02 SALMA BEAUCHAMP [facility]
--- OUTSIDE RECORDS SUMMARY | 2024-06-23 14:05 | XMS_ITS ---
Author Name [facility] [place] Address [address] [place] [id number] Care Team Providers Care Animal Care Supervisor Name Role Phone BYRON BARRON Primary Care [...] Dec 19, 2007 MEDICAR E SUPPLEM E [id number] [phone] NYDIA HUERTA PATIENT [employer] MEDICARE SUPPLEMEN YORDAN Dec 19, 2007 MEDICAR E SUPPLEM E [id number] NYDIA HUERTA UL PATIENT [employer] [place] MEDICARE SUPPLEMEN YORDAN BANKE RS Dec 19, 2007 NONE [id number] [phone] NYDIA HUERTA UL PATIENT MEDICARE (WNR) MEDICARE (M) PART B Oct 13, 2006 PART B [id number] NYDIA HUERTA UL PATIENT MEDICARE (WNR) MEDICARE (M) PART B Oct 13, 2006 PART B [id number] [phone] NYDIA HUERTA PATIENT MEDICARE (WNR) MEDICARE (M) PART B Oct 13, 2006 PART B [id number] [phone] NYDIA HUERTA PATIENT MEDICARE (WNR) MEDICARE (M) PART B Oct 13, 2006 PART B [id number] NYDIA HUERTA PATIENT MEDICARE (WNR) MEDICARE (M) PART A Sep 13, 2003 PART A [id number] [phone] NYDIA HUERTA UL PATIENT MEDICARE (WNR) MEDICARE (M) PART A Sep 13, 2003 PART A [id number] NYDIA HUERTA PATIENT MEDICARE (WNR) MEDICARE (M) PART A Sep 13, 2003 PART A [id number] NYDIA HUERTA PATIENT MEDICARE (WNR) MEDICARE (M) PART A Sep 13, 2003 PART A [id number] NYDIA HUERTA PATIENT Selected Encounter This section includes the information on record at [place] for the Encounter. Date/Time Encounter Type Encounter Description Reason Provider Source Oct 16, 2023 01:57 PM OFF/OP EST NOVEMBER X REQ PHY/QHP PRIMARY CARE/MEDICINE ICD-10-CM Z23 Encounter for immunization BYRON BARRON [place] Encounter Template Text not used by [place] Assessments - Encounter Diagnoses This section includes the primary and secondary diagnoses documented for the Encounter. Date/Time Primary/Secondary Diagnosis Diagnosis Name Provider Source November 21, 2023 12:01 PM PRIMARY Encounter for immunization SHERMAN EMERSON [facility] Plan of Treatment: Future Appointments (+ 6 [...] 24, 2023 09:00 AM AMBULATORY - NONE [facility] December 05, 2023 10:00 AM AMBULATORY - NONE [facility] [place] [facility] Dec 30, 2023 11:00 AM AMBULATORY - REHAB MEDICIN E [facility] [place] [facility] Jan 13, 2024 01:20 PM AMBULATORY - MEDICINE [facility] [place] [facility] Jan 21, 2024 08:00 AM AMBULATORY - MEDICINE [facility] [place] [facility] Feb 03, 2024 01:30 PM AMBULATORY - REHAB MEDICIN E [facility] [place] [facility] Mar 05, 2024 08:00 AM AMBULATORY - MEDICINE [facility] [place] [facility] Mar 05, 2024 09:00 AM AMBULATORY - MEDICINE [facility] [place] [facility] Mar 06, 2024 08:00 AM AMBULATORY - MEDICINE [facility] [place] [facility] Mar 24, 2024 02:00 PM AMBULATORY - MEDICINE [facility] [place] [facility] Mar 31, 2024 09:30 AM AMBULATORY - REHAB MEDICIN E [facility] [place] [facility] Apr 13, 2024 01:30 PM AMBULATORY - MEDICINE [place] [facility] [place] [facility] Lab Results: +/- 30 days of the encounter This section includes the Chemistry and Hematology Lab Results on record with [place] for the patient. Radiology Reports and Pathology Reports are provided separately, in subsequent sections. Lab Results This section contains the Chemistry/Hematology Results that were resulted 30 days before or 30 daysafter the date of the Encounter. Date/Time Source Result Type Result - Unit Interpretation Reference Range Comment Oct 08, 2023 07:41 AM [facility] BASIC METABOLIC PANEL (fasting) Specimen Type: SERUM No comment entered. Ordering Provider: BYRON BARRON Report Released Date/Time: Oct 05, 2023 11:58 PM Reporting Lab: [facility] [address] [facility] [address] Performing Lab: [facility] [address] [address] UREA NITROGEN 16 mg/dL 7-25 GLUCOSE 102 mg/dL H 65-100 SODIUM 143 mmol/L 135-145 POTASSIUM 4.4 mmol/L 3.5-5.0 CHLORIDE 106 mmol/L 100-110 CO2 26 meq/L 20-30 CREATININE, Serum 1.01 mg/dL 0.50-1.40 eGFR(CKD-EPI 2020) 73 mL/min >60 Oct 08, 2023 07:41 AM [facility] LIVER FUNCTION Specimen Type: SERUM No comment entered. Ordering Provider: BYRON BARRON Report Released Date/Time: Oct 05, 2023 11:58 PM Reporting Lab: [address] [address] Performing Lab: [address] [address] PROTEIN,TOTAL 6.6 g/dL 6.0-8.3 ALBUMIN 3.8 g/dL 3.5-5.0 ALKALINE PHOSPHATASE 103 U/L 40-150 AST 33 U/L 5-34 ALT 29 U/L BILIRUBIN, TOTAL 0.7 mg/dL 0.2-1.2 Oct 08, 2023 07:41 AM [facility] CBC AND DIFF (AUTO) Specimen Type: BLOOD No comment entered. Ordering Provider: BYRON BARRON Report Released Date/Time: Oct 05, 2023 11:58 PM Reporting Lab: [address] [address] Performing Lab: [address] [address] WBC 7.99 10*3/uL 4.50-11.00 RBC 4.47 10*6/uL 4.23-5.66 HGB 14.6 g/dL 12.8-17 HCT 42.7 39.2-50.4 MCV 95.5 fL 82-99 MCHC 34.2 g/dL 30.8-35.1 PLT 126 10*3/uL L 140-360 RDW-CV 12.9 12.0-16.0 [place], Abs 0.79 10*3/uL 0.30-1.10 MCH 32.7 pg H 26.2-32.6 Neut % 54.5 43.7-75.8 Lymph % 33.3 14.0-42.3 [place] % 9.9 5.1-13.7 Eos % 1.4 0.4-6.8 Baso % 0.6 0.1-2.0 Neut, Abs 4.36 10*3/uL 2.20-7.60 Lymph, Abs 2.66 10*3/uL 1.00-3.20 Eos, Abs 0.11 10*3/uL 0.03-0.44 Baso, Abs 0.05 10*3/uL 0.01-0.13 Immature Gran % 0.3 0.0-0.7 Immature Gran, Abs 0.02 10*3/uL 0.00-0.06 Oct 08, 2023 07:41 AM [facility] LIPID PANEL FASTING Specimen Type: SERUM No comment entered. Ordering Provider: BYRON BARRON Report Released Date/Time: Oct 05, 2023 11:58 PM Reporting Lab: [address] [address] Performing Lab: [address] [address] CHOLESTEROL 133 mg/dL TRIGLYCERIDE 98 mg/dL 0-150 LDL calculated 70 mg/dL 0-129 CHOL/HDL 3.1 HDL CHOLESTEROL 43 mg/dL 40-60 Oct 08, 2023 07:41 AM [facility] TSH Specimen Type: SERUM No comment entered. Ordering Provider: BYRON BARRON Report Released Date/Time: Oct 05, 2023 11:58 PM Reporting Lab: [address] [address] Performing Lab: [address] [address] TSH 2.46 u[IU]/mL 0.35-5.00 Oct 08, 2023 07:41 AM [facility] URINALYSIS CLEAN CATCH Specimen Type: URINE Comment: If Glucose = >500 and Ketones are positive, please alert the Physician. Ordering Provider: BYRON BARRON Report Released Date/Time: Oct 05, 2023 11:58 PM Reporting Lab: [address] [address] Performing Lab: [facility] [address] [facility] [address] UA COLOR Light-Yellow Yellow UA APPEARANCE Clear [...] Source Oct 16, 2023 01:44 PM 128/76 [facility] Factor[employer] Oct 16, 2023 01:15 PM 98.2 86 140/72 16 98 0 211 35 [facility] Immunizations: All administered on the encounter date This section contains immunizations associated to the Encounter. Immunization Series Date Issued Reaction Comments RSV, BIVALENT, PROTEIN SUBUN IT RSVPREF, DILUENT RECONSTITUTED, 0.5 ML, PF 1 Oct 16, 2023 Social History: Smoking [...] 16, 2023 01:30 PM VA-TOBACCO FORMER USER [facility] Tobacco Use History This section includes a history of the smoking, or tobacco-related health factors, that were collected on or before the date of the Encounter. The data comes from the [place] facility where the Encounter took place. Date/Time Smoking Status/Tobacco Use Comment [place] Oct 16, 2023 01:30 PM VA-TOBACCO QUIT 15 YRS OR MORE [facility] Jul 04, 2022 11:00 AM VA-TOBACCO FORMER USER [facility] Jul 04, 2022 11:00 AM VA-TOBACCO QUIT 15 YRS OR MORE IN [facility] [place] [facility] Jun 28, 2021 10:30 AM VA-TOBACCO FORMER USER IN [facility] [place] [facility] Jun 28, 2021 10:30 AM VA-TOBACCO QUIT 15 YRS OR MORE IN [facility] [place] [facility] May 26, 2020 08:00 AM VA-TOBACCO FORMER USER IN [facility] [place] [facility] May 26, 2020 08:00 AM VA-TOBACCO QUIT 15 YRS OR MORE IN [facility] [place] [facility] May 23, 2018 11:21 AM VA-TOBACCO NEVER USED [facility] Advance Directives: All historical and current [...] Feb 19, 2022 ADVANCE DIRECTIVE JOCE CASTORENA [facility] November 16, 2020 ADVANCE DIRECTIVE BYRON BARRON [facility] Encounter Notes: All associated encounter notes This section contains the clinical notes associated to the Encounter. Date/Time Encounter Note(s) Provider Source Oct 16, 2023 01:58 PM IMMUNIZATION NOTE: LOCAL TITLE: [place] IMMUNIZATION NOTE STANDARD TITLE: IMMUNIZATION NOTE DATE OF NOTE: OCT 16, 2023@13:58:07 ENTRY DATE: OCT 16, 2023@13:58:07 AUTHOR: EARLE ANDRADE EXP COSIGNER: URGENCY: STATUS: COMPLETED Administered: RSV, BIVALENT, PROTEIN SUBUNIT RSVPREF, DILUENT RECONSTITUTED, 0.5 ML, PF Date Administered: Oct 16, 2023 13:57 Series: Series 1 Senior Linux Engineer: [employer] Lot: [id number] Exp Date: Oct 12, 2024 NDC: [id number] Admin Route/Site: INTRAMUSCULAR/LEFT DELTOID Dosage: 0.5mL Vaccine Information Statement(s): RSV (RESPIRATORY SYNCYTIAL VIRUS) VACCINE VIS May 02, 2023 ([facility]) Order By: Policy Administered By: Earle Andrade/ EARLE ANDRADE LPN Signed: 10/16/2023 13:58 EARLE ANDRADE [facility]
--- OUTSIDE RECORDS SUMMARY | 2024-06-23 14:05 | XMS_ITS | Encounter Summary ---
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 Address [address] [place] [address] Care Team Providers Care Batch Heat Treat Operator Name Role Phone BYRON BARRON Primary Care [...] Dec 19, 2007 MEDICAR E SUPPLEM E [id number] NYDIA HUERTA UL PATIENT [employer] MEDICARE SUPPLEMEN YORDAN Dec 19, 2007 MEDICAR E SUPPLEM E [id number] NYDIA HUERTA UL PATIENT [employer] [place] MEDICARE SUPPLEMEN YORDAN BANKE RS Dec 19, 2007 NONE [id number] [phone] NYDIA HUERTA UL PATIENT MEDICARE (WNR) MEDICARE (M) PART B Oct 13, 2006 PART B [id number] NYDIA HUERTA UL PATIENT MEDICARE (WNR) MEDICARE (M) PART B Oct 13, 2006 PART B [id number] [facility] [phone] [place] PATIENT MEDICARE (WNR) MEDICARE (M) PART B Oct 13, 2006 PART B [id number] [phone] NYDIA HUERTA PATIENT MEDICARE (WNR) MEDICARE (M) PART B Oct 13, 2006 PART B [id number] NYDIA HUERTA PATIENT MEDICARE (WNR) MEDICARE (M) PART A Sep 13, 2003 PART A [id number] [phone] NYDIA HUERTA PATIENT MEDICARE (WNR) MEDICARE (M) PART A Sep 13, 2003 PART A [id number] NYDIA HUERTA PATIENT MEDICARE (WNR) MEDICARE (M) PART A Sep 13, 2003 PART A [id number] NYDIA HUERTA PATIENT MEDICARE (WNR) MEDICARE (M) PART A Sep 13, 2003 PART A [id number] [phone] NYDIA HUERTA PATIENT Selected Encounter This section includes the information on record at [place] for the Encounter. Date/Time Encounter Type Encounter Description Reason Pro vider Source Oct 24, 2023 12:40 PM Outpatient Encounter EVENT (HISTORICAL) IHE Encounter Template Text not used by [place] Plan of Treatment: Future Appointments (+ 6 months) and Future Tests (+/- 45 days) The Plan of Treatment section includes future care activities for the patient from all [place] treatmentfacilities. This section includes future appointments and future orders which are active, pending or scheduled. Future Appointments This section includes appointments that were scheduled to occur 6 months from the date of the Encounter, up to a maximum of 20 appointments. The data comes from all [place] treatment facilities. Appointment Date/Time Appointment Type Appointme nt Facility Name December 05, 2023 10:00 AM AMBULATORY - NONE [facility] [place] [facility] Dec 30, 2023 11:00 AM AMBUL[facility] - [facility]IC[facility] [place] [facility] Jan 13, 2024 01:20 PM AM[facility]ORY [facility]INE [facility] [place] [facility] Jan 21, 2024 08:00 AM [facility] [place] [facility] Feb 03, 2024 01:30 PM AMBULATORY - REHAB MEDICIN E [facility] [place] [facility] Mar 05, 2024 08:00 AM AM[facility]ORY [facility]INE [facility] [place] [facility] Mar 05, 2024 09:00 AM [facility]ICINE [facility] [place] [facility] Mar 06, 2024 08:00 AM [facility]ICINE [facility] [place] [facility] Mar 24, 2024 02:00 PM [facility]ORY [facility]ICINE [facility] [place] [facility] Mar 31, 2024 09:30 AM AMBULATORY - REHAB MEDICIN E [facility] [place] [facility] Apr 13, 2024 01:30 PM [facility]BUL[facility] - [facility]INE [facility] Lab Results: +/- 30 days of the encounter This section includes the Chemistry and Hematology Lab Results on record with [place] for the patient. Radiology Reports and Pathology Reports are provided separately, in subsequent sections. Lab Results This section contains the Chemistry/Hematology Results that were resulted 30 days before or 30 daysafter the date of the Encounter. Date/Time Source Result Type Result - Unit Interpretation Reference Range Comment Oct 08, 2023 07:41 AM [facility] BASIC METABOLIC PANEL (fasting) Specimen Type: SERUM No comment entered. Ordering Provider: BYRON BARRON Report Released Date/Time: Oct 05, 2023 11:58 PM Reporting Lab: [facility] [address] [facility] [address] Performing Lab: [address] [address] UREA NITROGEN 16 mg/dL 7-25 GLUCOSE 102 mg/dL H 65-100 SODIUM 143 mmol/L 135-145 POTASSIUM 4.4 mmol/L 3.5-5.0 CHLORIDE 106 mmol/L 100-110 CO2 26 meq/L 20-30 CREATININE, Serum 1.01 mg/dL 0.50-1.40 eGFR(CKD-EPI 2020) 73 mL/min >60 Oct 08, 2023 07:41 AM [facility] LIVER FUNCTION Specimen Type: SERUM No comment entered. Ordering Provider: BYRON BARRON Report Released Date/Time: Oct 05, 2023 11:58 PM Reporting Lab: [facility] [address] [facility] [address] Performing Lab: [address] [address] PROTEIN,TOTAL 6.6 g/dL 6.0-8.3 ALBUMIN 3.8 g/dL 3.5-5.0 ALKALINE PHOSPHATASE 103 U/L 40-150 AST 33 U/L 5-34 ALT 29 U/L BILIRUBIN, TOTAL 0.7 mg/dL 0.2-1.2 Oct 08, 2023 07:41 AM [facility] TSH Specimen Type: SERUM No comment entered. Ordering Provider: BYRON BARRON Report Released Date/Time: Oct 05, 2023 11:58 PM Reporting Lab: [address] [address] Performing Lab: [address] [address] TSH 2.46 u[IU]/mL 0.35-5.00 Oct 08, 2023 07:41 AM [facility] CBC AND DIFF (AUTO) Specimen Type: BLOOD No comment entered. Ordering Provider: BYRON BARRON Report Released Date/Time: Oct 05, 2023 11:58 PM Reporting Lab: [address] [address] Performing Lab: [address] [address] WBC 7.99 10*3/uL 4.50-11.00 RBC 4.47 10*6/uL 4.23-5.66 HGB 14.6 g/dL 12.8-17 HCT 42.7 39.2-50.4 MCV 95.5 fL 82-99 MCHC 34.2 g/dL 30.8-35.1 PLT 126 10*3/uL L 140-360 RDW-CV 12.9 12.0-16.0 Woodruff, Abs 0.79 10*3/uL 0.30-1.10 MCH 32.7 pg H 26.2-32.6 Neut % 54.5 43.7-75.8 Lymph % 33.3 14.0-42.3 Woodruff % 9.9 5.1-13.7 Eos % 1.4 0.4-6.8 Baso % 0.6 0.1-2.0 Neut, Abs 4.36 10*3/uL 2.20-7.60 Lymph, Abs 2.66 10*3/uL 1.00-3.20 Eos, Abs 0.11 10*3/uL 0.03-0.44 Baso, Abs 0.05 10*3/uL 0.01-0.13 Immature Gran % 0.3 0.0-0.7 Immature Gran, Abs 0.02 10*3/uL 0.00-0.06 Oct 08, 2023 07:41 AM [facility] LIPID PANEL FASTING Specimen Type: SERUM No comment entered. Ordering Provider: BYRON BARRON Report Released Date/Time: Oct 05, 2023 11:58 PM Reporting Lab: [address] [address] Performing Lab: [address] [address] CHOLESTEROL 133 mg/dL TRIGLYCERIDE 98 mg/dL 0-150 LDL calculated 70 mg/dL 0-129 CHOL/HDL 3.1 HDL CHOLESTEROL 43 mg/dL 40-60 Oct 08, 2023 07:41 AM [facility] URINALYSIS CLEAN CATCH Specimen Type: URINE Comment: If Glucose = >500 and Ketones are positive, please alert the Physician. Ordering Provider: BYRON BARRON Report Released Date/Time: Oct 05, 2023 11:58 PM Reporting Lab: [address] [address] Performing Lab: [address] [address] UA COLOR Light-Yellow Yellow UA APPEARANCE Clear [...] and tobacco- related health factors from the [place] facility where the Encounter took place. Current Smoking Status This section includes the most current smoking, or tobacco-related health factor, from the [place] facility where the Encounter took place. Date/Time Current Smoking Status Comment Facil ity Oct 16, 2023 01:30 PM VA-TOBACCO FORMER USER [facility] [place] [facility] Tobacco Use History This section includes a history of the smoking, or tobacco-related health factors, that were collected on or before the date of the Encounter. The data comes from the [place] facility where the Encounter took place. Date/Time Smoking Status/Tobacco Use Comment F acility Oct 16, 2023 01:30 PM VA-TOBACCO QUIT 15 YRS OR MORE [facility] [place] [facility] Jul 04, 2022 11:00 AM VA-TOBACCO FORMER USER [facility] [place] [facility] Jul 04, 2022 11:00 AM VA-TOBACCO QUIT 15 YRS OR MORE [facility] [place] [facility] Jun 28, 2021 10:30 AM VA-TOBACCO FORMER USER [facility] [place] [facility] Jun 28, 2021 10:30 AM VA-TOBACCO QUIT 15 YRS OR MORE [facility] [place] [facility] May 26, 2020 08:00 AM VA-TOBACCO FORMER USER [facility] [place] [facility] May 26, 2020 08:00 AM VA-TOBACCO QUIT 15 YRS OR MORE [facility] [place] [facility] May 23, 2018 11:21 AM VA-TOBACCO NEVER USED [facility] [place] [facility] Advance Directives: All historical and current Section Date Range: From patient's date of to the date document was created. This section includes ALL of a patient's completed or amended [place] Advance and Rescinded Directives. The entries below indicate that a directive exists for the patient, but an actual copy is not included with this document. The data comes from all [place] facilities. Date Advance Directives Provider Source Feb 19, 2022 ADVANCE DIRECTIVE JOCE CASTORENA [facility] November 16, 2020 ADVANCE DIRECTIVE BEATRICEBYRON Noa [facility] Encounter Notes: All associated encounter notes This section contains the clinical notes associated to the Encounter. Date/Time Encounter Note(s) Provider Source Oct 24, 2023 12:40 PM TELEHEALTH CONSULT : LOCAL TITLE: CONSULT REPORT/TELEDERMATOLOGY IMAGING REQUEST STANDARD TITLE: TELEHEALTH CONSULT DATE OF NOTE: OCT 24, 2023@12:40:20 ENTRY DATE: OCT 24, 2023@12:40:20 AUTHOR: SARANYA PASTOR EXP COSIGNER: URGENCY: STATUS: COMPLETED Please refer to Inter-facility Consult for results. Automatically generated note - signature not required. Electronically Filed: 10/24/2023 by: SARANYA LOPEZ [facility]
--- OUTSIDE RECORDS SUMMARY | 2024-06-23 14:05 | XMS_ITS ---
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 Address [address] [place] [address] Care Team Providers Care Chemical Engraver Name Role Phone BYRON SIMMONS Primary Care Provider Unavailabl e Insurance [...] Dec 19, 2007 MEDICAR E SUPPLEM E [id number] NYDIA HUERTA UL PATIENT [employer] MEDICARE SUPPLEMEN YORDAN Dec 19, 2007 MEDICAR E SUPPLEM E [id number] NYDIA HUERTA UL PATIENT [employer] [place] MEDICARE SUPPLEMEN YORDAN BANKE RS Dec 19, 2007 NONE [id number] NYDIA HUERTA UL PATIENT MEDICARE (WNR) MEDICARE (M) PART B Oct 13, 2006 PART B [id number] NYDIA HUERTA UL PATIENT MEDICARE (WNR) MEDICARE (M) PART B Oct 13, 2006 PART B [id number] [facility] [place] PATIENT MEDICARE (WNR) MEDICARE (M) PART B Oct 13, 2006 PART B [id number] NYDIA HUERTA PATIENT MEDICARE (WNR) MEDICARE (M) PART B Oct 13, 2006 PART B [id number] NYDIA HUERTA PATIENT MEDICARE (WNR) MEDICARE (M) PART A Sep 13, 2003 PART A [id number] [phone] NYDIA HUERTA PATIENT MEDICARE (WNR) MEDICARE (M) PART A Sep 13, 2003 PART A [id number] [phone] NYDIA HUERTA PATIENT MEDICARE (WNR) MEDICARE (M) PART A Sep 13, 2003 PART A [id number] NYDIA HUERTA PATIENT MEDICARE (WNR) MEDICARE (M) PART A Sep 13, 2003 PART A [id number] NYDIA HUERTA PATIENT Selected Encounter This section includes the information on record at [place] for the Encounter. Date/Time Encounter Type Encounter Description Reason Pro vider Source Oct 24, 2023 01:01 PM Outpatient Encounter PRIMARY CARE/MEDICINE IHE Encounter [...] AMBULATORY - NONE [facility] [place] [facility] Dec 30, 2023 11:00 AM AMBULATORY - [facility]AB MEDICIN E [facility] [place] [facility] Jan 13, 2024 01:20 PM AMBULATORY - MEDICINE [facility] [place] [facility] Jan 21, 2024 08:00 AM AMBULATORY - [facility]ICINE [facility] [place] [facility] Feb 03, 2024 01:30 PM AMBULATORY - REHAB MEDICIN E [facility] [place] [facility] Mar 05, 2024 08:00 AM AMBULATORY - MEDICINE [facility] [place] [facility] Mar 05, 2024 09:00 AM AMBULATORY - MEDICINE [facility] [place] [facility] Mar 06, 2024 08:00 AM AMBULATORY - MEDICINE [facility] [place] [facility] Mar 24, 2024 02:00 PM AM[facility]ULATORY - [facility]ICINE [facility] [place] [facility] Mar 31, 2024 09:30 AM AMBULATORY - REHAB MEDICIN E [facility] [place] [facility] Apr 13, 2024 01:30 PM AMBULATORY - MEDICINE [facility] Lab Results: +/- 30 days of [...] Range Comment Oct 08, 2023 07:41 AM [facility] BASIC METABOLIC PANEL (fasting) Specimen Type: SERUM No comment entered. Ordering Provider: BYRON SIMMONS Report Released Date/Time: Oct 05, 2023 11:58 PM Reporting Lab: [facility] [address] [facility] [address] Performing Lab: [address] [address] UREA NITROGEN 16 mg/dL 7-25 GLUCOSE 102 mg/dL H 65-100 SODIUM 143 mmol/L 135-145 POTASSIUM 4.4 mmol/L 3.5-5.0 CHLORIDE 106 mmol/L 100-110 CO2 26 meq/L 20-30 CREATININE, Serum 1.01 mg/dL 0.50-1.40 eGFR(CKD-EPI 2020) 73 mL/min >60 Oct 08, 2023 07:41 AM [facility] CBC AND DIFF (AUTO) Specimen Type: BLOOD No comment entered. Ordering Provider: BYRON SIMMONS Report Released Date/Time: Oct 05, 2023 11:58 PM Reporting Lab: [facility] [address] [facility] [address] Performing Lab: [facility] [address] [facility] [address] WBC 7.99 10*3/uL 4.50-11.00 RBC 4.47 10*6/uL 4.23-5.66 HGB 14.6 g/dL 12.8-17 HCT 42.7 39.2-50.4 MCV 95.5 fL 82-99 MCHC 34.2 g/dL 30.8-35.1 PLT 126 10*3/uL L 140-360 RDW-CV 12.9 12.0-16.0 Placer, Abs 0.79 10*3/uL 0.30-1.10 MCH 32.7 pg H 26.2-32.6 Neut % 54.5 43.7-75.8 Lymph % 33.3 14.0-42.3 Placer % 9.9 5.1-13.7 Eos % 1.4 0.4-6.8 Baso % 0.6 0.1-2.0 Neut, Abs 4.36 10*3/uL 2.20-7.60 Lymph, Abs 2.66 10*3/uL 1.00-3.20 Eos, Abs 0.11 10*3/uL 0.03-0.44 Baso, Abs 0.05 10*3/uL 0.01-0.13 Immature Gran % 0.3 0.0-0.7 Immature Gran, Abs 0.02 10*3/uL 0.00-0.06 Oct 08, 2023 07:41 AM [facility] LIVER FUNCTION Specimen Type: SERUM No comment entered. Ordering Provider: BYRON SIMMONS Report Released Date/Time: Oct 05, 2023 11:58 PM Reporting Lab: [facility] [address] [facility] [address] Performing Lab: [address] [address] PROTEIN,TOTAL 6.6 g/dL 6.0-8.3 ALBUMIN 3.8 g/dL 3.5-5.0 ALKALINE PHOSPHATASE 103 U/L 40-150 AST 33 U/L 5-34 ALT 29 U/L BILIRUBIN, TOTAL 0.7 mg/dL 0.2-1.2 Oct 08, 2023 07:41 AM [facility] LIPID PANEL FASTING Specimen Type: SERUM No comment entered. Ordering Provider: BYRON SIMMONS Report Released Date/Time: Oct 05, 2023 11:58 PM Reporting Lab: [address] [address] Performing Lab: [facility] [address] [facility] [address] CHOLESTEROL 133 mg/dL TRIGLYCERIDE 98 mg/dL 0-150 LDL calculated 70 mg/dL 0-129 CHOL/HDL 3.1 HDL CHOLESTEROL 43 mg/dL 40-60 Oct 08, 2023 07:41 AM [facility] TSH Specimen Type: SERUM No comment entered. Ordering Provider: BYRON SIMMONS Report Released Date/Time: Oct 05, 2023 11:58 PM Reporting Lab: [address] [address] Performing Lab: [address] [address] TSH 2.46 u[IU]/mL 0.35-5.00 Oct 08, 2023 07:41 AM [facility] URINALYSIS CLEAN CATCH Specimen Type: URINE Comment: If Glucose = >500 and Ketones are positive, please alert the Physician. Ordering Provider: BYRON SIMMONS Report Released Date/Time: Oct 05, 2023 11:58 PM Reporting Lab: [address] [address] Performing Lab: [address] [address] UA COLOR Light-Yellow Yellow UA APPEARANCE Clear [...] VA-TOBACCO QUIT 15 YRS OR MORE [facility] [place] [facility] Tobacco Use History This section includes a history of the smoking, or tobacco-related health factors, that were collected on or before the date of the Encounter. The data comes from the [place] facility where the Encounter took place. Date/Time Smoking Status/Tobacco Use Comment F acgary Oct 16, 2023 01:30 PM VA-TOBACCO QUIT 15 YRS OR MORE [facility] [place] [facility] Jul 04, 2022 11:00 AM VA-TOBACCO FORMER USER [facility] [place] [facility] Jul 04, 2022 11:00 AM VA-TOBACCO QUIT 15 YRS OR MORE [facility] [place] [facility] Jun 28, 2021 10:30 AM VA-TOBACCO FORMER USER [facility] [place] [facility] Jun 28, 2021 10:30 AM VA-TOBACCO QUIT 15 YRS OR MORE [facility] [place] [facility] May 26, 2020 08:00 AM VA-TOBACCO FORMER USER [facility] [place] [facility] May 26, 2020 08:00 AM VA-TOBACCO QUIT 15 YRS OR MORE [facility] [place] [facility] May 23, 2018 11:21 AM VA-TOBACCO NEVER USED [facility] [place] [facility] Advance Directives: All historical and current [...] Feb 19, 2022 ADVANCE DIRECTIVE [facility] [place] [facility] November 16, [address] [facility] Encounter Notes: All associated encounter notes This section contains the clinical notes associated to the Encounter. Date/Time Encounter Note(s) Provider Source Oct 24, 2023 01:04 PM LETTERS: LOCAL TITLE: PATIENT LETTER (T) STANDARD TITLE: LETTERS DATE OF NOTE: OCT 24, 2023@13:04 ENTRY DATE: OCT 24, 2023@13:04:58 AUTHOR: BYRON SIMMONS EXP COSIGNER: URGENCY: STATUS: COMPLETED [facility] Toll Free Number Primary Care Telephone Assistance can be reached at extension [phone] [facility] scheduling can be reached at extension [phone] [facility] scheduling can be reached at ext [phone] ALYCIA HUERTA [address] [place] [address], [address] October 24, 2023 Dear , Please find enclosed a copy of recent dermatology consult. Dermatology recommended triamcinolone cream for the itching. I ordered that for mailing. They recommended biopsy of the skin lesion to make sure there was no skin cancer. You should receive an appointment for dermatology biopsy shortly. Please contact me if you have questions. Respectfully, Byron Simmons MD Sincerely, Your Primary Care Team [facility] [address] [address] [place] [address] [phone] [facility] [address] [place] [address] [place] [address] [phone] [facility] [address] [facility] [place] [address] [place] [address] [phone] [facility]
--- OUTSIDE RECORDS SUMMARY | 2024-06-23 14:05 | XMS_ITS | Encounter Summary ---
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 Organization [place] Address [address] [place] [address] Care Team Providers Care Etcher Printed Circuit Boards Name Role Phone BYRON BARRON Primary Care [...] Dec 19, 2007 MEDICAR E SUPPLEM E [id number] [phone] NYDIA HUERTA UL PATIENT [employer] MEDICARE SUPPLEMEN YORDAN Dec 19, 2007 MEDICAR E SUPPLEM E [id number] NYDIA HUERTA UL PATIENT [employer] MED[employer]ARE SUPPLEMEN YORDAN BANKE RS Dec 19, 2007 NONE [id number] NYDIA HUERTA UL PATIENT MEDICARE (WNR) MEDICARE (M) PART B Oct 13, 2006 PART B [id number] NYDIA HUERTA UL PATIENT MEDICARE (WNR) MEDICARE (M) PART B Oct 13, 2006 PART B [id number] [phone] NYDIA HUERTA PATIENT MEDICARE (WNR) MEDICARE (M) PART B Oct 13, 2006 PART B [id number] [phone] NYDIA HUERTA PATIENT MEDICARE (WNR) MEDICARE (M) PART B Oct 13, 2006 PART B [id number] NYDIA HUERTA PATIENT MEDICARE (WNR) MEDICARE (M) PART A Sep 13, 2003 PART A [id number] NYDIA HUERTA PATIENT MEDICARE (WNR) MEDICARE (M) PART A Sep 13, 2003 PART A [id number] NYDIA HUERTA PATIENT MEDICARE (WNR) MEDICARE (M) PART A Sep 13, 2003 PART A [id number] NYDIA HUERTA PATIENT MEDICARE (WNR) MEDICARE (M) PART A Sep 13, 2003 PART A [id number] [phone] NYDIA HUERTA PATIENT Selected Encounter This section includes the information on record at [place] for the Encounter. Date/Time Encounter Type Encounter Description Reason Pro vider Source November 29, 2023 09:28 AM Outpatient Encounter ADMIN PAT ACTIVTIES (MASNONCT) IHE Encounter Template Text not used by ME Plan of Treatment: Future Appointments (+ 6 months) and Future Tests (+/- 45 days) The Plan of Treatment section includes future care activities for the patient from all [place] treatmentfacilities. This section includes future appointments and future orders which are active, pending or scheduled. Future Appointments This section includes appointments that were scheduled to occur 6 months from the date of the Encounter, up to a maximum of 20 appointments. The data comes from all [place] treatment facilities. Appointment Date/Time Appointment Type Appointme nt Facility Name December 05, 2023 10:00 AM AMBULATORY - NONE [place] [facility] [place] [facility] Dec 30, 2023 11:00 AM AMBULATORY - REHAB MEDICIN E [facility] [place] [facility] Jan 13, 2024 01:20 PM AMBULATORY - MEDICINE [place] [facility] [place] [facility] Jan 21, 2024 08:00 AM AMBULATORY - MEDICINE [place] [facility] [place] [facility] Feb 03, 2024 01:30 PM AMBULATORY - REHAB MEDICIN E [facility] [place] [facility] Mar 05, 2024 08:00 AM AMBULATORY - MEDICINE [place] [facility] [place] [facility] Mar 05, 2024 09:00 AM AMBULATORY - MEDICINE [place] [facility] [place] [facility] Mar 06, 2024 08:00 AM AMBULATORY - MEDICINE [place] [facility] [place] [facility] Mar 24, 2024 02:00 PM AMBULATORY - MEDICINE [facility] [place] [facility] Mar 31, 2024 09:30 AM AMBULATORY - REHAB MEDICIN E [facility] [place] [facility] Apr 13, 2024 01:30 PM AMBULATORY - MEDICINE [facility] [place] [facility] Apr 28, 2024 02:00 PM AMBULATORY - MEDICINE [facility] [place] [facility] May 05, 2024 02:00 PM AMBULATORY - REHAB MEDICIN E [facility] [place] [facility] Social History: Smoking Status (Most current) and Tobacco Use (All prior to encounter date) This section includes the most current, and the historical, smoking and tobacco- related health factors from the [place] facility where the Encounter took place. Current Smoking Status This section includes the most current smoking, or tobacco-related health factor, from the [place] facility where the Encounter took place. Date/Time Current Smoking Status Comment Darling blum Oct 16, 2023 01:30 PM VA-TOBACCO FORMER USER [place] [facility] [place] [facility] Tobacco Use History This section includes a history of the smoking, or tobacco-related health factors, that were collected on or before the date of the Encounter. The data comes from the [place] facility where the Encounter took place. Date/Time Smoking Status/Tobacco Use Comment F acility Oct 16, 2023 01:30 PM VA-TOBACCO QUIT 15 YRS OR MORE [facility] [place] [facility] Jul 04, 2022 11:00 AM VA-TOBACCO FORMER USER [facility] [place] [facility] Jul 04, 2022 11:00 AM VA-TOBACCO QUIT 15 YRS OR MORE [facility] [place] [facility] Jun 28, 2021 10:30 AM VA-TOBACCO FORMER USER [facility] [place] [facility] Jun 28, 2021 10:30 AM VA-TOBACCO QUIT 15 YRS OR MORE [facility] [place] [facility] May 26, 2020 08:00 AM VA-TOBACCO FORMER USER [place] [facility] [place] [facility] May 26, 2020 08:00 AM VA-TOBACCO QUIT 15 YRS OR MORE [place] [facility] [place] [facility] May 23, 2018 11:21 AM VA-TOBACCO NEVER USED [facility] Advance Directives: All historical and current Section Date Range: From patient's date of to the date document was created. This section includes ALL of a patient's completed or amended [place] Advance and Rescinded Directives. The entries below indicate that a directive exists for the patient, but an actual copy is not included with this document. The data comes from all [place] facilities. Date Advance Directives Provider Source Feb 19, 2022 ADVANCE DIRECTIVE JOCE CASTORENA [facility] November 16, 2020 ADVANCE DIRECTIVE BYRON BARRON [facility] Encounter Notes: All associated encounter notes This section contains the clinical notes associated to the Encounter. Date/Time Encounter Note(s) Provider Source November 29, 2023 09:29 AM ADMINISTRATIVE NOT E: LOCAL TITLE: CCC: SCHEDULING ADMINISTRATION STANDARD TITLE: ADMINISTRATIVE NOTE DATE OF NOTE: NOVEMBER 29, 2023@09:29:03 ENTRY DATE: NOVEMBER 29, 2023@09:29:03 AUTHOR: CECILLE ORTIZ COSIGNER: URGENCY: STATUS: COMPLETED CCC: SCHEDULING ADMINISTRATION Has ADDENDA Patient Demographics Patient Name: ALYCIA HUERTA Patient Primary Phone: [phone] Patient Primary [address]: [address] [place] [id number] Patient : 1940 Patient Age: 83 Call Back Number: [phone] Caller/Recipient Relation to Patient: Self Administrative Administrative Note Reason: Other Administrative Note Comments: pt is asking for a call in ref to hearing aides pt states went to o/s provider for hearing aides and was told to see primary care provider /eleanor/ CECILLE WEINER [address] [facility] AMSA Signed: 11/29/2023 09:29 Receipt Acknowledged By: 12/02/2023 09:12 /eleanor/ Stephanie Banks RN, BSN Primary Care 12/02/2023 11:48 /es/ COBY MAHER LPN LPN 12/02/2023 ADDENDUM STATUS: COMPLETED spoke with , provided him with number for audiology to son[facility]. [place] thanked me. /eleanor/ Stephanie Banks RN, BSN Primary Care Signed: 12/02/2023 09:12 CECILLE ORTIZ [facility]
--- OUTSIDE RECORDS SUMMARY | 2024-06-23 14:05 | XMS_ITS ---
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 Address [address] [place] [id number] Care Team Providers Care Reed Cleaner Name Role Phone BYRON SIMMONS Primary Care [...] Dec 19, 2007 MEDICAR E SUPPLEM E [id number] [phone] NYDIA HUERTA UL PATIENT [employer] MEDICARE SUPPLEMEN YORDAN Dec 19, 2007 MEDICAR E SUPPLEM E [id number] [phone] NYDIA HUERTA UL PATIENT [employer] [place] MED[place] SUPPLEMEN YORDAN BANKE RS Dec 19, 2007 NONE [id number] [phone] NYDIA HUERTA UL PATIENT MEDICARE (WNR) MEDICARE (M) PART B Oct 13, 2006 PART B [id number] [facility] NYDIA HUERTA UL PATIENT MEDICARE (WNR) MEDICARE (M) PART B Oct 13, 2006 PART B [id number] [facility] [phone] NYDIA HUERTA UL PATIENT MEDICARE (WNR) MEDICARE (M) PART B Oct 13, 2006 PART B [id number] NYDIA HUERTA PATIENT MEDICARE (WNR) MEDICARE (M) PART B Oct 13, 2006 PART B [id number] NYDIA HUERTA PATIENT MEDICARE (WNR) MEDICARE (M) PART A Sep 13, 2003 PART A [id number] NYDIA HUERTA PATIENT MEDICARE (WNR) MEDICARE (M) PART A Sep 13, 2003 PART A [id number] NYDIA HUERTA PATIENT MEDICARE (WNR) MEDICARE (M) PART A Sep 13, 2003 PART A [id number] [phone] NYDIA HUERTA PATIENT MEDICARE (WNR) MEDICARE (M) PART A Sep 13, 2003 PART A [id number] NYDIA HUERTA PATIENT Selected Encounter This section includes the information on record at [place] for the Encounter. Date/Time Encounter Type Encounter Description Reason Pro vider Source November 28, 2023 10:14 AM Outpatient Encounter PRIMARY CARE/MEDICINE IHE Encounter Template Text not used by [place] Plan of Treatment: Future Appointments (+ 6 months) and Future Tests (+/- 45 days) The Plan of Treatment section includes future care activities for the patient from all [place] treatmentfacilities. This section includes future appointments and future orders which are active, pending or scheduled. Future Appointments This section includes appointments that were scheduled to occur 6 months from the date of the Encounter, up to a maximum of 20 appointments. The data comes from all [place] treatment facilities. Appointment Date/Time Appointment Type Appointme nt Facility Name December 05, 2023 10:00 AM AMBULATORY - NONE [place] [facility] [place] [facility] Dec 30, 2023 11:00 AM AMBULATORY - REHAB MEDICIN E [facility] [place] [facility] Jan 13, 2024 01:20 PM AMBULATORY - MEDICINE [place] [facility] [place] [facility] Jan 21, 2024 08:00 AM AMBULATORY - MEDICINE [place] [facility] [place] [facility] Feb 03, 2024 01:30 PM AMBULATORY - REHAB MEDICIN E [facility] [place] [facility] Mar 05, 2024 08:00 AM AMBULATORY - MEDICINE [facility] [place] [facility] Mar 05, 2024 09:00 AM AMBULATORY - MEDICINE [facility] [place] [facility] Mar 06, 2024 08:00 AM AMBULATORY - MEDICINE [facility] [place] [facility] Mar 24, 2024 02:00 PM AMBULATORY - MEDICINE [facility] [place] [facility] Mar 31, 2024 09:30 AM AMBULATORY - REHAB MEDICIN E [facility] [place] [facility] Apr 13, 2024 01:30 PM AMBULATORY - MEDICINE [facility] [place] [facility] Apr 28, 2024 02:00 PM AMBULATORY - MEDICINE [facility] [place] [facility] May 05, 2024 02:00 PM AMBULATORY - REHAB MEDICIN E [facility] [place] [facility] Social History: Smoking Status (Most current) and Tobacco Use (All prior to encounter date) This section includes the most current, and the historical, smoking and tobacco- related health factors from the [place] facility where the Encounter took place. Current Smoking Status This section includes the most current smoking, or tobacco-related health factor, from the [place] facility where the Encounter took place. Date/Time Current Smoking Status Comment Facil viktoria Oct 16, 2023 01:30 PM VA-TOBACCO FORMER USER [facility] [place] [facility] Tobacco Use History This section includes a history of the smoking, or tobacco-related health factors, that were collected on or before the date of the Encounter. The data comes from the [place] facility where the Encounter took place. Date/Time Smoking Status/Tobacco Use Comment F acgary Oct 16, 2023 01:30 PM VA-TOBACCO QUIT 15 YRS OR MORE [facility] [place] [facility] Jul 04, 2022 11:00 AM VA-TOBACCO FORMER USER [facility] [place] [facility] Jul 04, 2022 11:00 AM VA-TOBACCO QUIT 15 YRS OR MORE [facility] [place] [facility] Jun 28, 2021 10:30 AM VA-TOBACCO FORMER USER [facility] [place] [facility] Jun 28, 2021 10:30 AM VA-TOBACCO QUIT 15 YRS OR MORE [place] [facility] [place] [facility] May 26, 2020 08:00 AM VA-TOBACCO FORMER USER [place] [facility] [place] [facility] May 26, 2020 08:00 AM VA-TOBACCO QUIT 15 YRS OR MORE [place] [facility] [place] [facility] May 23, 2018 11:21 AM [facility]CO [facility] Advance Directives: All historical and current Section Date Range: From patient's date of to the date document was created. This section includes ALL of a patient's completed or amended [place] Advance and Rescinded Directives. The entries below indicate that a directive exists for the patient, but an actual copy is not included with this document. The data comes from all [place] facilities. Date Advance Directives Provider Source Feb 19, 2022 ADVANCE DIRECTIVE JOCE CASTORENA [place] [facility] November 16, 2020 ADVANCE DIRECTIVE BYRON SIMMONS [facility] Encounter Notes: All associated encounter notes This section contains the clinical notes associated to the Encounter. Date/Time Encounter Note(s) Provider Source November 28, 2023 10:14 AM NONVA CONSULT: LOCAL TITLE: MD/OUTSIDE CONSULT REPORT SUMMARY STANDARD TITLE: NONVA CONSULT DATE OF NOTE: NOVEMBER 28, 2023@10:14 ENTRY DATE: NOVEMBER 28, 2023@10:14:54 AUTHOR: BYRON SIMMONS EXP COSIGNER: URGENCY: STATUS: COMPLETED 11-21-[address] Tucker [facility] Pulmonary Chief complaint: Asthma Plan: Continue present inhalers Follow-up 4 to 6 months /eleanor/ Byron Simmons MD Staff Physician Signed: 11/28/2023 10:15 BYRON SIMMONS [facility]
--- OUTSIDE RECORDS SUMMARY | 2024-06-23 14:05 | XMS_ITS ---
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 Address [address] [place] [address] Care Team Providers Care Telemarketing Manager Name Role Phone BYRON BARRON Primary [...] Member ID Insurance Provider's Telephone Number Policy Basurot's Name Patient's Relationship to Policy Basurto [employer] SUPPLEMEN YORDAN MEDIC ARE SUPPL EMENT * Dec 19, 2007 MEDICAR E SUPPLEM E [id number] NYDIA HUERTA UL PATIENT [employer] MEDICARE SUPPLEMEN YORDAN Dec 19, 2007 MEDICAR E SUPPLEM E [id number] [phone] NYDIA HUERTA UL PATIENT [employer] [place] MED[employer]ARE SUPPLEMEN YORDAN BANKE RS Dec 19, 2007 NONE [id number] NYDIA HUERTA UL PATIENT MEDICARE (WNR) MEDICARE (M) PART B Oct 13, 2006 PART B [id number] NYDIA HUERTA UL PATIENT MEDICARE (WNR) MEDICARE (M) PART B Oct 13, 2006 PART B [id number] NYDIA HUERTA UL PATIENT MEDICARE (WNR) MEDICARE (M) PART B Oct 13, 2006 PART B [id number] NYDIA HUERTA PATIENT MEDICARE (WNR) MEDICARE (M) PART B Oct 13, 2006 PART B [id number] NYDIA HUERTA PATIENT MEDICARE (WNR) MEDICARE (M) PART A Sep 13, 2003 PART A [id number] NYDIA HUERTA PATIENT MEDICARE (WNR) MEDICARE (M) PART A Sep 13, 2003 PART A [id number] NYDIA HUERTA PATIENT MEDICARE (WNR) MEDICARE (M) PART A Sep 13, 2003 PART A [id number] NYDIA HUERTA PATIENT MEDICARE (WNR) MEDICARE (M) PART A Sep 13, 2003 PART A [id number] NYDIA HUERTA PATIENT Selected Encounter This section includes the information on record at [place] for the Encounter. Date/Time Encounter Type Encounter Description Reason Pro vider Source November 21, 2023 12:00 PM Outpatient Encounter EVENT (HISTORICAL) IHE Encounter Template Text not used by [place] Plan of Treatment: Future Appointments (+ 6 months) and Future Tests (+/- 45 days) The Plan of Treatment section includes future care activities for the patient from all [place] treatmentfacilities. This section includes future appointments and future orders which are active, pending or scheduled. Future Appointments This section includes appointments that were scheduled to occur 6 months from the date of the Encounter, up to a maximum of 20 appointments. The data comes from all [place] treatment facilities. Appointment Date/Time Appointment Type Appointme nt Facility Name December 05, 2023 10:00 AM AMBULATORY - NONE [place] [facility] [place] [facility] Dec 30, 2023 11:00 AM AMBULATORY - REHAB MEDICIN E [facility] [place] [facility] Jan 13, 2024 01:20 PM AMBULATORY - MEDICINE [place] [facility] [place] [facility] Jan 21, 2024 08:00 AM AMBULATORY - MEDICINE [place] [facility] [facility] Feb 03, 2024 01:30 PM AMBULATORY - REHAB MEDICIN E [facility] [place] [facility] Mar 05, 2024 08:00 AM AMBULATORY - MEDICINE [place] [facility] [place] [facility] Mar 05, 2024 09:00 AM AMBULATORY - MEDICINE [facility] [place] [facility] Mar 06, 2024 08:00 AM AMBULATORY - MEDICINE [place] [facility] [place] [facility] Mar 24, 2024 02:00 PM AMBULATORY - MEDICINE [place] [facility] [place] [facility] Mar 31, 2024 09:30 AM AMBULATORY - REHAB MEDICIN E [facility] [place] [facility] Apr 13, 2024 01:30 PM AMBULATORY - MEDICINE [place] [facility] [place] [facility] Apr 28, 2024 02:00 PM AMBULATORY - MEDICINE [place] [facility] [place] [facility] May 05, 2024 02:00 PM AMBULATORY - REHAB MEDICIN E [facility] [place] [facility] Social History: Smoking Status (Most current) and Tobacco Use (All prior to encounter date) This section includes the most current, and the historical, smoking and tobacco- related health factors from the [place] facility where the Encounter took place. Current Smoking Status This section includes the most current smoking, or tobacco-related health factor, from the [place] facility where the Encounter took place. Date/Time Current Smoking Status Comment Facil viktoria Oct 16, 2023 01:30 PM VA-TOBACCO FORMER USER [facility] [place] [facility] Tobacco Use History This section includes a history of the smoking, or tobacco-related health factors, that were collected on or before the date of the Encounter. The data comes from the [place] facility where the Encounter took place. Date/Time Smoking Status/Tobacco Use Comment F acgary Oct 16, 2023 01:30 PM VA-TOBACCO QUIT 15 YRS OR MORE [facility] [place] [facility] Jul 04, 2022 11:00 AM VA-TOBACCO FORMER USER [facility] [place] [facility] Jul 04, 2022 11:00 AM VA-TOBACCO QUIT 15 YRS OR MORE [facility] [place] [facility] Jun 28, 2021 10:30 AM VA-TOBACCO FORMER USER [place] [facility] [place] [facility] Jun 28, 2021 10:30 AM VA-TOBACCO QUIT 15 YRS OR [facility] May 26, 2020 08:00 AM [facility] May 26, 2020 08:00 AM VA-TOBACCO QUIT 15 YRS OR [facility] May 23, 2018 11:21 AM VA-TOBACCO NEVER USED [facility] Advance Directives: All historical and current Section Date Range: From patient's date of to the date document was created. This section includes ALL of a patient's completed or amended [place] Advance and Rescinded Directives. The entries below indicate that a directive exists for the patient, but an actual copy is not included with this document. The data comes from all [place] facilities. Date Advance Directives Provider Source Feb 19, 2022 ADVANCE DIRECTIVE JOCE CASTORENA [facility] November 16, 2020 ADVANCE DIRECTIVE BYRON BARRON [facility] Encounter Notes: All associated encounter notes This section contains the clinical notes associated to the Encounter. Date/Time Encounter Note(s) Provider Source November 21, 2023 12:00 PM NONVA NOTE: LOCAL TITLE: NON-VA OUTPATIENT NOTES STANDARD TITLE: NONVA NOTE DATE OF NOTE: NOVEMBER 21, 2023@12:00 ENTRY DATE: NOVEMBER 29, 2023@13:25:21 AUTHOR: MAT CHAND EXP COSIGNER: URGENCY: STATUS: COMPLETED VistA Imaging - Scanned Document SCANNED DOCUMENT SIGNATURE NOT REQUIRED Electronically Filed: 11/29/2023 by: MAT BLANCHARD [facility]
--- OUTSIDE RECORDS SUMMARY | 2024-06-23 14:06 | XMS_ITS | Encounter Summary ---
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 [place] [facility] [place] Address [address] [place] [id number] Care Team Providers Care Staff Editor Name Role Phone BYRON BARRON Primary Care [...] Dec 19, 2007 MEDICAR E SUPPLEM E [id number] NYDIA HUERTA UL PATIENT [employer] MEDICARE SUPPLEMEN YORDAN Dec 19, 2007 MEDICAR E SUPPLEM E [id number] [phone] NYDIA HUERTA UL PATIENT [employer] [place] MEDICARE SUPPLEMEN YORDAN BANKE RS Dec 19, 2007 NONE [id number] [phone] NYDIA HUERTA UL PATIENT MEDICARE (WNR) MEDICARE (M) PART B Oct 13, 2006 PART B [id number] [id number] NYDIA HUERTA UL PATIENT MEDICARE (WNR) MEDICARE (M) PART B Oct 13, 2006 PART B [id number] [place] UL PATIENT MEDICARE (WNR) MEDICARE (M) PART B Oct 13, 2006 PART B [id number] [phone] NYDIA HUERTA PATIENT MEDICARE (WNR) MEDICARE (M) PART B Oct 13, 2006 PART B [id number] NYDIA HUERTA PATIENT MEDICARE (WNR) MEDICARE (M) PART A Sep 13, 2003 PART A [id number] [id number] NYDIA HUERTA PATIENT MEDICARE (WNR) MEDICARE (M) PART A Sep 13, 2003 PART A [id number] NYDIA HUERTA PATIENT MEDICARE (WNR) MEDICARE (M) PART A Sep 13, 2003 PART A [id number] [phone] NYDIA HUERTA PATIENT MEDICARE (WNR) MEDICARE (M) PART A Sep 13, 2003 PART A [id number] [phone] NYDIA HUERTA PATIENT Selected Encounter This section includes the information on record at [place] for the Encounter. Date/Time Encounter Type Encounter Description Reason Pro vider Source November 25, 2023 12:00 AM Outpatient Encounter EVENT (HISTORICAL) IHE Encounter Template Text not used by [place] [...] 05, 2023 10:00 AM AMBULATORY - NONE [place] [facility] [place] [facility] Dec 30, 2023 11:00 AM AMBULATORY - REHAB MEDICIN E [place] [facility] [place] [facility] Jan 13, 2024 01:20 PM AMBULATORY - MEDICINE [place] [facility] [place] [facility] Jan 21, 2024 08:00 AM AMBULATORY - MEDICINE [place] [facility] [place] [facility] Feb 03, 2024 01:30 PM AMBULATORY - REHAB MEDICIN E [facility] [place] [facility] Mar 05, 2024 08:00 AM AMBULATORY - MEDICINE [place] [facility] [place] [facility] Mar 05, 2024 09:00 AM AMBULATORY - MEDICINE [facility] [place] [facility] Mar 06, 2024 08:00 AM AMBULATORY - MEDICINE [place] [facility] [place] [facility] Mar 24, 2024 02:00 PM AMBULATORY - MEDICINE [facility] [place] [facility] Mar 31, 2024 09:30 AM AMBULATORY - REHAB MEDICIN E [facility] [place] [facility] Apr 13, 2024 01:30 PM AMBULATORY - MEDICINE [place] [facility] [place] [facility] Apr 28, 2024 02:00 PM AMBULATORY - MEDICINE [facility] [place] [facility] May 05, 2024 02:00 PM AMBULATORY - REHAB MEDICIN E [facility] [place] [facility] Social History: Smoking Status (Most current) [...] VA-TOBACCO FORMER USER [facility] [place] [facility] Tobacco Use History This section includes a history of the smoking, or tobacco-related health factors, that were collected on or before the date of the Encounter. The data comes from the [place] facility where the Encounter took place. Date/Time Smoking Status/Tobacco Use Comment F acgary Oct 16, 2023 01:30 PM VA-TOBACCO QUIT 15 YRS OR MORE [facility] [place] [facility] Jul 04, 2022 11:00 AM VA-TOBACCO FORMER USER [facility] [place] [facility] Jul 04, 2022 11:00 AM VA-TOBACCO QUIT 15 YRS OR MORE [facility] [place] [facility] Jun 28, 2021 10:30 AM VA-TOBACCO FORMER USER [facility] [place] [facility] Jun 28, 2021 10:30 AM VA-TOBACCO QUIT [facility] May 26, 2020 08:00 AM [facility]BACCO [facility] May 26, 2020 08:00 AM VA-TOBACCO QUIT [facility] OR [facility] May 23, 2018 11:21 AM VA-TOBACCO NEVER USED [facility] Advance Directives: All historical and current [...] Feb 19, 2022 ADVANCE DIRECTIVE JOCE CASTORENA [facility] November 16, 2020 ADVANCE DIRECTIVE BYRON BARRON [facility] Encounter Notes: All associated encounter notes This section contains the clinical notes associated to the Encounter. Date/Time Encounter Note(s) Provider Source November 25, 2023 12:00 AM NONVA NOTE: LOCAL TITLE: COMMUNITY CARE-URGENT CARE RECORD STANDARD TITLE: NONVA NOTE DATE OF NOTE: NOVEMBER 25, 2023 ENTRY DATE: DECEMBER 05, 2023@14:08:52 AUTHOR: HANS BEAUCHAMP EXP COSIGNER: URGENCY: STATUS: COMPLETED VistA Imaging - Scanned Document SCANNED DOCUMENT SIGNATURE NOT REQUIRED Electronically Filed: 12/05/2023 by: HANS BEAUCHAMP [employer] HANS BEAUCHAMP [facility]
--- OUTSIDE RECORDS SUMMARY | 2024-06-23 14:06 | XMS_ITS ---
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 Address [address] [place] [address] Care Team Providers Care Restaurant Host/Hostess Name Role Phone BYRON BARRON Primary Care [...] Dec 19, 2007 MEDICAR E SUPPLEM E [id number] NYDIA HUERTA PATIENT [employer] MEDICARE SUPPLEMEN YORDAN Dec 19, 2007 MEDICAR E SUPPLEM E [id number] NYDIA HUERTA UL PATIENT [employer] CO MEDICARE SUPPLEMEN YORDAN BANKE RS Dec 19, 2007 NONE [id number] [phone] NYDIA HUERTA PATIENT MEDICARE (WNR) MEDICARE (M) PART B Oct 13, 2006 PART B [id number] NYDIA HUERTA UL PATIENT MEDICARE (WNR) MEDICARE (M) PART B Oct 13, 2006 PART B [id number] NYDIA HUERTA PATIENT MEDICARE (WNR) MEDICARE (M) PART B Oct 13, 2006 PART B [id number] NYDIA HUERTA PATIENT MEDICARE (WNR) MEDICARE (M) PART B Oct 13, 2006 PART B [id number] NYDIA HUERTA PATIENT MEDICARE (WNR) MEDICARE (M) PART A Sep 13, 2003 PART A [id number] NYDIA HUERTA PATIENT MEDICARE (WNR) MEDICARE (M) PART A Sep 13, 2003 PART A [id number] NYDIA HUERTA PATIENT MEDICARE (WNR) MEDICARE (M) PART A Sep 13, 2003 PART A [id number] NYDIA HUERTA PATIENT MEDICARE (WNR) MEDICARE (M) PART A Sep 13, 2003 PART A [id number] NYDIA HUERTA PATIENT Selected Encounter This section includes the information on record at [place] for the Encounter. Date/Time Encounter Type Encounter Description Reason Pro vider Source Dec 30, 2023 04:17 PM Outpatient Encounter OTOLARYNGOLOGY/ENT IHE Encounter Template Text not used by [place] Plan of Treatment: Future Appointments (+ 6 months) and Future Tests (+/- 45 days) The Plan of Treatment section includes future care activities for the patient from all [place] treatmentfacilities. This section includes future appointments and future orders which are active, pending or scheduled. Future Appointments This section includes appointments that were scheduled to occur 6 months from the date of the Encounter, up to a maximum of 20 appointments. The data comes from all [place] treatment facilities. Appointment Date/Time Appointment Type Appointme nt Facility Name Jan 13, 2024 01:20 PM AMBULATORY - [place]ICINE [place] [facility] Jan 21, 2024 08:00 AM AMBULATORY - MEDICINE [facility] [place] [facility] Feb 03, 2024 01:30 PM AMBULATORY - REHAB MEDICIN E [place] [facility] [facility] Mar 05, 2024 08:00 AM AMBULATORY - MEDICINE [place] [facility] Mar 05, 2024 09:00 AM AMBULATORY - MEDICINE [place] [facility] [place] [facility] Mar 06, 2024 08:00 AM AMBULATORY - MEDICINE [place] [facility] [place] [place] [facility] Mar 24, 2024 02:00 PM AMBULATORY - MEDICINE [place] [facility] [place] [place] [facility] Mar 31, 2024 09:30 AM AMBULATORY - REHAB MEDICIN E [place] [facility] [place] [facility] Apr 13, 2024 01:30 PM AMBULATORY - MEDICINE [place] [facility] [place] [place] [facility] Apr 28, 2024 02:00 PM AMBULATORY - MEDICINE [place] [facility] [place] [place] [facility] May 05, 2024 02:00 PM AMBULATORY - REHAB MEDICIN E [place] [facility] [place] [facility] Jun 16, 2024 01:15 PM AMBULATORY - MEDICINE [place] [facility] Social History: Smoking Status (Most current) and Tobacco Use (All prior to encounter date) This section includes the most current, and the historical, smoking and tobacco- related health factors from the [place] facility where the Encounter took place. Current Smoking Status This section includes the most current smoking, or tobacco-related health factor, from the [place] facility where the Encounter took place. Date/Time Current Smoking Status Comment Facil ity Oct 16, 2023 01:30 PM VA-TOBACCO FORMER USER [place] [facility] [place] [facility] Tobacco Use History This section includes a history of the smoking, or tobacco-related health factors, that were collected on or before the date of the Encounter. The data comes from the [place] facility where the Encounter took place. Date/Time Smoking Status/Tobacco Use Comment F acility Oct 16, 2023 01:30 PM VA-TOBACCO QUIT 15 YRS OR MORE [facility] [place] [facility] Jul 04, 2022 11:00 AM VA-TOBACCO FORMER USER [place] [facility] [place] [facility] Jul 04, 2022 11:00 AM VA-TOBACCO QUIT 15 YRS OR MORE [place] [facility] [place] [facility] Jun 28, 2021 10:30 AM VA-TOBACCO FORMER USER [place] [facility] [place] [facility] Jun 28, 2021 10:30 AM VA-TOBACCO QUIT 15 YRS OR MORE [place] [facility] [place] [facility] May 26, 2020 08:00 AM VA-TOBACCO FORMER USER [place] [facility] May 26, 2020 08:00 AM VA-TOBACCO QUIT 15 YRS OR MORE [place] [facility] May 23, 2018 11:21 AM [facility]ACCO [facility] Advance Directives: All historical and current Section Date Range: From patient's date of to the date document was created. This section includes ALL of a patient's completed or amended [place] Advance and Rescinded Directives. The entries below indicate that a directive exists for the patient, but an actual copy is not included with this document. The data comes from all [place] facilities. Date Advance Directives Provider Source Feb 19, 2022 ADVANCE DIRECTIVE JOCE CASTORENA [place] [facility] November 16, 2020 ADVANCE DIRECTIVE [facility] Encounter Notes: All associated encounter notes This section contains the clinical notes associated to the Encounter. Date/Time Encounter Note(s) Provider Source Dec 30, 2023 04:17 PM LETTERS: LOCAL TITLE: PATIENT LETTER (B) STANDARD TITLE: LETTERS DATE OF NOTE: DEC 30, 2023@16:17 ENTRY DATE: DEC 30, 2023@16:17:56 AUTHOR: CHEN WALKER EXP COSIGNER: URGENCY: STATUS: COMPLETED DEC 30, 2023 ALYCIA HUERTA [address], [place] [address] Dear ALYCIA HUERTA We would like to assist you in scheduling a OT[place]ARY[place] appointment at the [place]. We have been unable to reach you by phone. To schedule this appointment please call toll free ext [phone]. Our booking appointment hours are Saturday through Saturday from 8:00 am to 4:00 pm. Please leave a message if you receive voicemail and let us know a good time and telephone number where we can reach you. If we dont hear back from you within 14 days from the date of this letter we will discontinue the request. If you have already scheduled this appointment, please disregard this letter. Your health is important to us. Sincerely, [facility] [address] [place] [address] [place] [address] ext. [phone] [facility] [address] [facility] [address] [place] [address] [place] [address] [phone] [facility] [address] [address] [place] [address] ext. [phone] [facility] [address] [place] [address] ext. [phone] CHEN WALKER CN[facility]L TRN [facility]
--- OUTSIDE RECORDS SUMMARY | 2024-06-23 14:06 | XMS_ITS | Encounter Summary ---
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 Organization [facility] [place] Address [address] [place] [address] Care Team Providers Care Soap Maker Name Role Phone BYRON BARRON Primary Care [...] Dec 19, 2007 MEDICAR E SUPPLEM E [id number] [phone] NYDIA HUERTA UL PATIENT [employer] MEDICARE SUPPLEMEN YORDAN Dec 19, 2007 MEDICAR E SUPPLEM E [id number] [phone] NYDIA HUERTA UL PATIENT [employer] [place] MEDICARE SUPPLEMEN YORDAN BANKE RS Dec 19, 2007 NONE [id number] [phone] NYDIA HUERTA UL PATIENT MEDICARE (WNR) MEDICARE (M) PART B Oct 13, [id number] [facility] NYDIA HUERTA UL PATIENT MEDICARE (WNR) MEDICARE (M) PART B Oct 13, [id number] [facility] NYDIA HUERTA UL PATIENT MEDICARE (WNR) MEDICARE (M) PART B Oct 13, 2006 PART B [id number] NYDIA HUERTA PATIENT MEDICARE (WNR) MEDICARE (M) PART B Oct 13, 2006 PART B [id number] [phone] NYDIA HUERTA PATIENT MEDICARE (WNR) MEDICARE (M) PART A Sep 13, 2003 PART A [id number] NYDIA HUERTA UL PATIENT MEDICARE (WNR) MEDICARE (M) PART A Sep 13, 2003 PART A [id number] NYDIA HUERTA UL PATIENT MEDICARE (WNR) MEDICARE (M) PART A Sep 13, 2003 PART A [id number] NYIDA HUERTA PATIENT MEDICARE (WNR) MEDICARE (M) PART A Sep 13, 2003 PART A [id number] NYDIA HUERTA PATIENT Selected Encounter This section includes the information on record at [place] for the Encounter. Date/Time Encounter Type Encounter Description Reason Provider Source Dec 27, 2023 08:41 AM Outpatient Encounter TELEPHONE TRIAGE CAROLINACLAY FUENTES Thierno PELAEZ Encounter Template Text not used by [place] [...] Date/Time Appointment Type Appointme nt Facility Name Dec 30, 2023 11:00 AM AMBULATORY - REHAB MEDICIN E [place] [facility] [place] [facility] Jan 13, 2024 01:20 PM AMBULATORY - MEDICINE [place] [facility] [place] [facility] Jan 21, 2024 08:00 AM AMBULATORY - MEDICINE [facility] [place] [facility] Feb 03, 2024 01:30 PM AMBULATORY - REHAB MEDICIN E [facility] [place] [facility] Mar 05, 2024 08:00 AM AMBULATORY - MEDICINE [facility] [place] [facility] Mar 05, 2024 09:00 AM AMBULATORY - MEDICINE [facility] [place] [facility] Mar 06, 2024 08:00 AM AMBULATORY - MEDICINE [facility] [place] [facility] Mar 24, 2024 02:00 PM AMBULATORY - MEDICINE [facility] [place] [facility] Mar 31, 2024 09:30 AM AMBULATORY - REHAB MEDICIN E [facility] [place] [facility] Apr 13, 2024 01:30 PM AMBULATORY - MEDICINE [facility] [facility] Apr 28, 2024 02:00 PM AMBULATORY - MEDICINE [facility] [place] [facility] May 05, 2024 02:00 PM AMBULATORY - REHAB MEDICIN E [facility] [place] [facility] Jun 16, 2024 01:15 PM AMBULATORY - MEDICINE [place] [facility] [place] [facility] Social History: Smoking Status (Most [...] VA-TOBACCO FORMER USER [place] [facility] [place] [facility] Tobacco Use History This section includes a history of the smoking, or tobacco-related health factors, that were collected on or before the date of the Encounter. The data comes from the [place] facility where the Encounter took place. Date/Time Smoking Status/Tobacco Use Comment F acgary Oct 16, 2023 01:30 PM VA-TOBACCO QUIT 15 YRS OR MORE [facility] [place] [facility] Jul 04, 2022 11:00 AM VA-TOBACCO FORMER USER [facility] [place] [facility] Jul 04, 2022 11:00 AM VA-TOBACCO QUIT 15 YRS OR MORE [facility] [place] [facility] Jun 28, 2021 10:30 AM VA-TOBACCO FORMER USER [facility] [place] [facility] Jun 28, 2021 10:30 AM VA-TOBACCO QUIT 15 YRS OR MORE [place] [facility] [place] [facility] May 26, 2020 08:00 AM VA-TOBACCO FORMER USER [place] [facility] [place] [facility] May 26, 2020 08:00 AM VA-TOBACCO QUIT 15 YRS OR MORE [place] [facility] [place] [facility] May 23, 2018 11:21 AM VA-TOBACCO NEVER USED [facility] Advance Directives: All historical and [...] Feb 19, 2022 ADVANCE DIRECTIVE JOCE CASTORENA [place] [facility] [place] [facility] November 16, 2020 ADVANCE DIRECTIVE BYRON BARRON [place] CNT [facility] Encounter Notes: All associated encounter notes This section contains the clinical notes associated to the Encounter. Date/Time Encounter Note(s) Provider Source Dec 27, 2023 09:04 AM ADDENDUM: LOCAL TITLE: Addendum STANDARD TITLE: ADDENDUM DATE OF NOTE: DEC 27, 2023@09:04:28 ENTRY DATE: DEC 27, 2023@09:04:29 AUTHOR: STEPHANIE BANKS COSIGNER: URGENCY: STATUS: COMPLETED Pat, please attempt to schedule to see pcp. /eleanor/ Stephanie Banks RN, BSN Primary Care Signed: 12/27/2023 09:04 Receipt Acknowledged By: 12/27/2023 09:56 /eleanor/ LEILA FERREIRA [employer] AUDIT MANAGER for JOCE CASTORENA === --- Original Document --- 12/27/23 CCC: CLINICAL TRIAGE: Patient Demographics Patient Name: ALYCIA HUERTA Patient Primary Address: [address] [place] [id number] Patient Primary Phone: [phone] Patient : 1940 Patient Age: 83 Current Location: home Call Back Number: verified Caller/Recipient Relation to Patient: Self Emergency Contact: TIMMY HUERTA Triage Summary Conducted triage/discussed symptoms Pain Score: 0 (No Pain) Utilized the Triage Tool: Yes Chief Complaint: Lump Under The Skin System WHEN: Within 2 Weeks Nurse's Recommendation / WHEN: Within 2 Weeks System WHERE: Clinic Nurse's Recommendation / WHERE: [facility] Patient Disposition Patient/Caregiver agrees to plan of care: Yes Patient WHERE: Clinic/[facility] Patient WHEN: Within 2 weeks Nursing Plan and Disposition Referred Patient for In-Person Appt Transferred patient to Sched & Admin-Apt No appt avail Advised Urgent Care Other Description: will go to local urgent care using [place] Act if no openings with PCP Nurse Summary Nurse Summary: is calling to state that he has had a left armpit growth that he noticed 2 days ago in the shower. States it is about the size of a marble and is not painful or tender. Pocahontas has had a rash on his back recently with pimples and is using a new cream (triamcinolone cream) for the past 2 weeks and wonders if this could be the cause of the lump. No history of issues with lumps in the past. Clinical Contact Center Codes Clinic/Location: [facility] PHONE CCC RN TXCC Triage Complete Triage Date: 12/27/2023, 08:29 AM Triage Note: Phone Triage 27 Dec 2023 12:26:42 +0000 [facility] Demographics 83 y/o Male Results CC: Lump Under The Skin Software suggested: Within 2 Weeks Software suggested follow-up location: Clinic, consider virtual care Values and Measures Duration of CC: 2 Days Positive Responses HPI: mole, enlarging VS: temperature not taken Negative Responses Denies: HPI: erythema, around the lump or bump Denies: HPI: lymph node swelling, cervical or axillary or inguinal Denies: HPI: red streaks, from a lump or bump Denies: HPI: skin lump or bump, worsening for more than 1 week Denies: HPI: skin lump or papule, duration longer than 1 month Denies: HPI: skin lump or papule, painful, worsening Denies: HPI: skin lump or papule, swelling, worsening Denies: HPI: skin lump or papule, tenderness, worsening Denies: HPI: skin lump, firm, on margin of eyelid /eleanor/ CLAY WEINER 1 [facility] RN Signed: 12/27/2023 08:41 Receipt Acknowledged By: * AWAITING SIGNATURE * STEPHANIE BANKS 12/27/2023 08:54 /es/ COBY MAHER LPN LPN 12/27/2023 ADDENDUM STATUS: COMPLETED SENT OVER FROM TRI RN, TO SEE IF ANY PCP OPENINGS F2F SHOWING TH NEXT TWO WEEKS, NOTHING IN THE VSE GRID. THE PT STATES HE WILL REPORT TO THE GIVEN FOR RN AND FOLLOW UP AFTER DISCHARGE /eleanor/ RADHA MEANS Signed: 12/27/2023 08:42 Receipt Acknowledged By: * AWAITING SIGNATURE * STEPHANIE BANKS * AWAITING SIGNATURE * COBY MAHER 12/27/2023 ADDENDUM STATUS: UNSIGNED You may not VIEW this UNSIGNED Addendum. STEPHANIE BANKS [place] [facility] [place] [facility] Dec 27, 2023 08:41 AM ADDENDUM: LOCAL TITLE: Addendum STANDARD TITLE: ADDENDUM DATE OF NOTE: DEC 27, 2023@08:41:34 ENTRY DATE: DEC 27, 2023@08:41:36 AUTHOR: RADHA MEANS EXP COSIGNER: URGENCY: STATUS: COMPLETED SENT OVER FROM TRI RN, TO SEE IF ANY PCP OPENINGS F2F SHOWING TH NEXT TWO WEEKS, NOTHING IN THE VSE GRID. THE PT STATES HE WILL REPORT TO THE GIVEN FOR RN AND FOLLOW UP AFTER DISCHARGE /eleanor/ RADHA MEANS Signed: 12/27/2023 08:42 Receipt Acknowledged By: 12/27/2023 10:07 /eleanor/ Stephanie Banks RN, BSN Primary Care 12/27/2023 13:09 /eleanor/ COBY MAHER LPN LPN === --- Original Document --- 12/27/23 CCC: CLINICAL TRIAGE: Patient Demographics Patient Name: ALYCIA HUERTA Patient Primary Address: [address] [place] [id number] Patient Primary Phone: [phone] Patient : 1940 Patient Age: 83 Current Location: home Call Back Number: verified Caller/Recipient Relation to Patient: Self Emergency Contact: TIMMY HUERTA Triage Summary Conducted triage/discussed symptoms Pain Score: 0 (No Pain) Utilized the Triage Tool: Yes Chief Complaint: Lump Under The Skin System WHEN: Within 2 Weeks Nurse's Recommendation / WHEN: Within 2 Weeks System WHERE: Clinic Nurse's Recommendation / WHERE: [facility] Patient Disposition Patient/Caregiver agrees to plan of care: Yes Patient WHERE: [facility] Patient WHEN: Within 2 weeks Nursing Plan and Disposition Referred Patient for In-Person Appt Transferred patient to Sched & Admin-Apt No appt avail Advised Urgent Care Other Description: will go to local urgent care using [place] Act if no openings with PCP Nurse Summary Nurse Summary: Pocahontas is calling to state that he has had a left armpit growth that he noticed 2 days ago in the shower. States it is about the size of a marble and is not painful or tender. Pocahontas has had a rash on his back recently with pimples and is using a new cream (triamcinolone cream) for the past 2 weeks and wonders if this could be the cause of the lump. No history of issues with lumps in the past. Clinical Contact Center Codes Clinic/Location: V1 [facility] PHONE [facility] RN TXCC Triage Complete Triage Date: 12/27/2023, 08:29 AM Triage Note: Phone Triage 27 Dec 2023 12:26:42 +0000 [facility] Demographics 83 y/o Male Results CC: Lump Under The Skin Software suggested: Within 2 Weeks Software suggested follow-up location: Clinic, consider virtual care Values and Measures Duration of CC: 2 Days Positive Responses HPI: mole, enlarging VS: temperature not taken Negative Responses Denies: HPI: erythema, around the lump or bump Denies: HPI: lymph node swelling, cervical or axillary or inguinal Denies: HPI: red streaks, from a lump or bump Denies: HPI: skin lump or bump, worsening for more than 1 week Denies: HPI: skin lump or papule, duration longer than 1 month Denies: HPI: skin lump or papule, painful, worsening Denies: HPI: skin lump or papule, swelling, worsening Denies: HPI: skin lump or papule, tenderness, worsening Denies: HPI: skin lump, firm, on margin of eyelid /eleanor/ CLAY WEINER 1 CCC RN Signed: 12/27/2023 08:41 Receipt Acknowledged By: 12/27/2023 10:07 /eleanor/ Stephanie Banks RN, BSN Primary Care 12/27/2023 08:54 /es/ COBY MAHER LPN TUMBLING AND ROLLING SUPERVISOR 12/27/2023 ADDENDUM STATUS: COMPLETED Pat, please attempt to schedule to see pcp. /eleanor/ Stephanie Banks RN, BSN Primary Care Signed: 12/27/2023 09:04 Receipt Acknowledged By: 12/27/2023 09:56 /eleanor/ LEILA FERREIRA [employer]FORMATION SYSTEM[employer] AUDIT MANAGER for JOCE CASTORENA 12/27/2023 ADDENDUM STATUS: COMPLETED AMSA LEFT A VOICEMAIL AND REQUESTED A CALL BACK [phone] EXT [phone]. /eleanor/ LEILA FERREIRA [employer]FORMATION SYSTEMS AUDIT MANAGER Signed: 12/27/2023 09:57 RADHA MEANS [facility] [place] [facility] Dec 27, 2023 08:41 AM RN PROGRESS NOTE: LOCAL TITLE: CCC: CLINICAL TRIAGE STANDARD TITLE: RN PROGRESS NOTE DATE OF NOTE: DEC 27, 2023@08:41:11 ENTRY DATE: DEC 27, 2023@08:41:11 AUTHOR: CLAY FIGUEROA EXP COSIGNER: URGENCY: STATUS: COMPLETED CCC: CLINICAL TRIAGE Has ADDENDA Patient Demographics Patient Name: ALYCIA HUERTA Patient Primary Address: [address] [place] [id number] Patient Primary Phone: [phone] Patient : 1940 Patient Age: 83 Current Location: home Call Back Number: verified Caller/Recipient Relation to Patient: Self Emergency Contact: TIMMY HUERTA Triage Summary Conducted triage/discussed symptoms Pain Score: 0 (No Pain) Utilized the Triage Tool: Yes Chief Complaint: Lump Under The Skin System WHEN: Within 2 Weeks Nurse's Recommendation / WHEN: Within 2 Weeks System WHERE: Clinic Nurse's Recommendation / WHERE: [facility] Patient Disposition Patient/Caregiver agrees to plan of care: Yes Patient WHERE: Clinic/[facility] Patient WHEN: Within 2 weeks Nursing Plan and Disposition Referred Patient for In-Person Appt Transferred patient to Sched & Admin-Apt No appt avail Advised Urgent Care Other Description: will go to local urgent care using [place] Act if no openings with PCP Nurse Summary Nurse Summary: is calling to state that he has had a left armpit growth that he noticed 2 days ago in the shower. States it is about the size of a marble and is not painful or tender. Pocahontas has had a rash on his back recently with pimples and is using a new cream (triamcinolone cream) for the past 2 weeks and wonders if this could be the cause of the lump. No history of issues with lumps in the past. Clinical Contact Center Codes Clinic/Location: V1 [facility] PHONE CCC RN TXCC Triage Complete Triage Date: 12/27/2023, 08:29 AM Triage Note: Phone Triage 27 Dec 2023 12:26:42 +0000 [facility] Demographics 83 y/o Male Results CC: Lump Under The Skin Software suggested: Within 2 Weeks Software suggested follow-up location: Clinic, consider [facility] care Values and Measures Duration of CC: 2 Days Positive Responses HPI: mole, enlarging VS: temperature not taken Negative Responses Denies: HPI: erythema, around the lump or bump Denies: HPI: lymph node swelling, cervical or axillary or inguinal Denies: HPI: red streaks, from a lump or bump Denies: HPI: skin lump or bump, worsening for more than 1 week Denies: HPI: skin lump or papule, duration longer than 1 month Denies: HPI: skin lump or papule, painful, worsening Denies: HPI: skin lump or papule, swelling, worsening Denies: HPI: skin lump or papule, tenderness, worsening Denies: HPI: skin lump, firm, on margin of eyelid /es/ CLAY M .GINA VISN 1 CCC RN Signed: 12/27/2023 08:41 Receipt Acknowledged By: 12/27/2023 10:07 /eleanor/ Stephanie Banks RN, BSN Primary Care 12/27/2023 08:54 /es/ COBY MAHER LPN LPN 12/27/2023 ADDENDUM STATUS: COMPLETED SENT OVER FROM CC [facility] RN, TO SEE IF ANY PCP OPENINGS F2F SHOWING TH NEXT TWO WEEKS, NOTHING IN THE VSE GRID. THE PT STATES HE WILL REPORT TO THE GIVEN FOR RN AND FOLLOW UP AFTER DISCHARGE /eleanor/ RADHA MEANS Signed: 12/27/2023 08:42 Receipt Acknowledged By: 12/27/2023 10:07 /eleanor/ Stephanie Banks RN, BSN Primary Care * AWAITING SIGNATURE * COBY MAHER 12/27/2023 ADDENDUM STATUS: COMPLETED Pat, please attempt to schedule to see pcp. /eleanor/ Stephanie Banks RN, BSN Primary Care Signed: 12/27/2023 09:04 Receipt Acknowledged By: 12/27/2023 09:56 /eleanor/ LEILA FERREIRA [employer]FORMATION SYSTEMS AUDIT MANAGER for JOCE CASTORENA 12/27/2023 ADDENDUM STATUS: COMPLETED AMSA LEFT A VOICEMAIL AND REQUESTED A CALL BACK [phone] EXT [phone]. /eleanor/ LEILA FERREIRA ADVANC[employer] INFORMATION SYSTEMS AUDIT MANAGER Signed: 12/27/2023 09:57 CLAY FIGUEROA PA [facility]
--- OUTSIDE RECORDS SUMMARY | 2024-06-23 14:06 | XMS_ITS | Encounter Summary ---
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 Address [address] [place] [id number] Care Team Providers Care Scenery Builder Name Role Phone BYRON BARRON Primary Care [...] Dec 19, 2007 MEDICAR E SUPPLEM E [id number] NYDIA HUERTA UL PATIENT [employer] MEDICARE SUPPLEMEN YORDAN Dec 19, 2007 MEDICAR E SUPPLEM E [id number] [phone] NYDIA HUERTA UL PATIENT [employer] [place] MEDICARE SUPPLEMEN YORDAN BANKE RS Dec 19, 2007 NONE [id number] [phone] NYDIA HUERTA UL PATIENT MEDICARE (WNR) MEDICARE (M) PART B Oct 13, 2006 PART B [id number] [facility] [phone] NYDIA HUERTA UL PATIENT MEDICARE (WNR) MEDICARE (M) PART B Oct 13, 2006 PART B [id number] [facility] NYDIA HUERTA UL PATIENT MEDICARE (WNR) MEDICARE (M) PART B Oct 13, 2006 PART B [id number] NYDIA HUERTA PATIENT MEDICARE (WNR) MEDICARE (M) PART B Oct 13, 2006 PART B [id number] NYDIA HUERTA PATIENT MEDICARE (WNR) MEDICARE (M) PART A Sep 13, 2003 PART A [id number] [phone] NYDIA HUERTA PATIENT MEDICARE (WNR) MEDICARE (M) PART A Sep 13, 2003 PART A [id number] NYDIA HUERTA PATIENT MEDICARE (WNR) MEDICARE (M) PART A Sep 13, 2003 PART A [id number] [phone] NYDIA HUERTA PATIENT MEDICARE (WNR) MEDICARE (M) PART A Sep 13, 2003 PART A [id number] [phone] NYDIA HUERTA PATIENT Selected Encounter This section includes the [place] at [place]. Date/Time Encounter Type Encounter Description Reason Pro vider Source December 05, 2023 03:06 PM Outpatient Encounter EVENT (HISTORICAL) IHE Encounter [...] MEDICIN E [place] [facility] [place] [facility] Jan 13, 2024 01:20 PM AM[place]ULATORY [place]IC[place] [facility] [place] [facility] Jan 21, 2024 08:00 AM AMBULATORY [place]ICINE [place] [facility] [place] [facility] Feb 03, 2024 01:30 PM AMBULATORY - REHAB MEDICIN E [facility] [place] [facility] Mar 05, 2024 08:00 AM AMBULATORY - MEDICINE [place] [facility] [facility] Mar 05, 2024 09:00 AM AMBULATORY - MEDICINE [place] [facility] [place] [facility] Mar 06, 2024 08:00 AM AMBULATORY - MEDICINE [place] [facility] [facility] Mar 24, 2024 02:00 PM AMBULATORY - MEDICINE [place] [facility] [place] [facility] Mar 31, 2024 09:30 AM AMBULATORY - REHAB MEDICIN E [facility] [place] [facility] Apr 13, 2024 01:30 PM AMBULATORY - MEDICINE [facility] [facility] Apr 28, 2024 02:00 PM AMBULATORY - MEDICINE [facility] [facility] May 05, 2024 02:00 PM AMBULATORY - REHAB MEDICIN E [facility] [place] [facility] Social History: Smoking Status (Most current) [...] VA-TOBACCO FORMER USER [place] [facility] [facility] Tobacco Use History This section includes a history of the smoking, or tobacco-related health factors, that were collected on or before the date of the Encounter. The data comes from the [place] facility where the Encounter took place. Date/Time Smoking Status/Tobacco Use Comment F acility Oct 16, 2023 01:30 PM VA-TOBACCO QUIT 15 YRS OR MORE [facility] [place] [facility] Jul 04, 2022 11:00 AM VA-TOBACCO FORMER USER [facility] [place] [facility] Jul 04, 2022 11:00 AM VA-TOBACCO QUIT 15 YRS OR MORE [facility] [place] [facility] Jun 28, 2021 10:30 AM VA-TOBACCO FORMER USER [place] [facility] [place] [facility] Jun 28, 2021 10:30 AM VA-TOBACCO QUIT 15 YRS OR MORE [place] [facility] [place] [facility] May 26, 2020 08:00 AM VA-TOBACCO FORMER USER [place] [facility] [facility] [place] [facility] May 26, 2020 08:00 AM VA-TOBACCO QUIT 15 YRS OR MORE [place] [facility] [facility] [facility] May 23, 2018 11:21 AM VA-TOBACCO NEVER USED [facility] Advance Directives: All historical and [...] 2022 ADVANCE DIRECTIVE JOCE CASTORENA [place] [facility] November 16, 2020 ADVANCE DIRECTIVE [facility] Encounter Notes: All associated encounter notes This section contains the clinical notes associated to the Encounter. Date/Time Encounter Note(s) Provider Source December 05, 2023 03:06 PM TELEHEALTH CONSULT : LOCAL TITLE: CONSULT REPORT/TELEDERMATOLOGY IMAGING REQUEST STANDARD TITLE: TELEHEALTH CONSULT DATE OF NOTE: DECEMBER 05, 2023@15:06:48 ENTRY DATE: DECEMBER 05, 2023@15:06:48 AUTHOR: IRENA BRADFORD EXP COSIGNER: URGENCY: STATUS: COMPLETED Please refer to Inter-facility Consult for results. Automatically generated note - signature not required. Electronically Filed: 12/05/2023 by: IRENA BAINS [facility]
--- OUTSIDE RECORDS SUMMARY | 2024-06-23 14:06 | XMS_ITS ---
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 Address [address] [place] [id number] Care Team Providers Care Charter Boat Captain Name Role Phone JOSUE SIMMONS Primary Care [...] Dec 19, 2007 MEDICAR E SUPPLEM E [id number] NYDIA HUERTA UL PATIENT [employer] MEDICARE SUPPLEMEN YORDAN Dec 19, 2007 MEDICAR E SUPPLEM E [id number] NYDIA HUERTA UL PATIENT [employer] [place] MEDICARE SUPPLEMEN YORDAN BANKE RS Dec 19, 2007 NONE [id number] NYDIA HUERTA UL PATIENT MEDICARE (WNR) MEDICARE (M) PART B Oct 13, 2006 PART B [id number] NYDIA HUERTA UL PATIENT MEDICARE (WNR) MEDICARE (M) PART B Oct 13, 2006 PART B [id number] [phone] NYDIA HUERTA UL PATIENT MEDICARE (WNR) MEDICARE (M) PART B Oct 13, 2006 PART B [id number] NYDIA HUERTA PATIENT MEDICARE (WNR) MEDICARE (M) PART B Oct 13, 2006 PART B [id number] [phone] NYDIA HUERTA PATIENT MEDICARE (WNR) MEDICARE (M) PART A Sep 13, 2003 PART A [id number] [phone] NYDIA HUERTA PATIENT MEDICARE (WNR) MEDICARE (M) PART A Sep 13, 2003 PART A [id number] NYDIA HUERTA PATIENT MEDICARE (WNR) MEDICARE (M) PART A Sep 13, 2003 PART A [id number] [phone] NYDIA HUERTA PATIENT MEDICARE (WNR) MEDICARE (M) PART A Sep 13, 2003 PART A [id number] NYDIA HUERTA PATIENT Selected Encounter This section includes the information on record at [place] for the Encounter. Date/Time Encounter Type Encounter Description Reason Pro vider Source December 05, 2023 12:06 PM Outpatient Encounter PRIMARY CARE/MEDICINE IHE Encounter [...] REHAB MEDICIN E [facility] [place] [facility] Jan 13, 2024 01:20 PM AMBULATORY - MEDICINE [place] [facility] [place] [facility] Jan 21, 2024 08:00 AM AMBULATORY - MEDICINE [place] [facility] [place] [facility] Feb 03, 2024 01:30 PM AMBULATORY - RE[facility] MEDICIN E [facility] [place] [facility] Mar 05, 2024 08:00 AM AMBULATORY - MEDICINE [place] [facility] [place] [facility] Mar 05, 2024 09:00 AM AMBULATORY - MEDICINE [place] [facility] [place] [facility] Mar 06, 2024 08:00 AM AMBULATORY - MEDICINE [place] [facility] [place] [facility] Mar 24, 2024 02:00 PM AMBULATORY - MEDICINE [place] [facility] [place] [facility] Mar 31, 2024 09:30 AM AMBULATORY - REHAB MEDICIN E [facility] [place] [facility] Apr 13, 2024 01:30 PM AMBULATORY - MEDICINE [place] [facility] [place] [facility] Apr 28, 2024 02:00 PM AMBULATORY - MEDICINE [place] [facility] [place] [facility] May 05, 2024 02:00 PM AMBULATORY - REHAB MEDICIN E [facility] [place] [facility] Social History: Smoking Status [...] PM VA-TOBACCO QUIT 15 YRS OR MORE [place] [facility] [place] [facility] Tobacco Use History This section includes a history of the smoking, or tobacco-related health factors, that were collected on or before the date of the Encounter. The data comes from the [place] facility where the Encounter took place. Date/Time Smoking Status/Tobacco Use Comment F acility Oct 16, 2023 01:30 PM VA-TOBACCO QUIT 15 YRS OR MORE [facility] [place] [facility] Jul 04, 2022 11:00 AM VA-TOBACCO FORMER USER [facility] [place] [facility] Jul 04, 2022 11:00 AM VA-TOBACCO QUIT 15 YRS OR MORE [facility] [place] [facility] Jun 28, 2021 10:30 AM VA-TOBACCO FORMER USER [facility] [place] [facility] Jun 28, 2021 10:30 AM VA-TOBACCO QUIT 15 YRS OR MORE [facility] [place] [facility] May 26, 2020 08:00 AM [place]-TOBACCO FORMER USER [place] [facility] [place] [facility] May 26, 2020 08:00 AM VA-TOBACCO QUIT 15 YRS OR MORE [place] [facility] May 23, 2018 11:21 AM [facility] Advance Directives: All historical and [...] 2022 ADVANCE DIRECTIVE [facility] November 16, 2020 ADVANCE DIRECTIVE JOSUE SIMMONS [facility] Encounter Notes: All associated encounter notes This section contains the clinical notes associated to the Encounter. Date/Time Encounter Note(s) Provider Source December 05, 2023 12:06 PM NONVA CONSULT: LOCAL TITLE: MD/OUTSIDE CONSULT REPORT SUMMARY STANDARD TITLE: NONVA CONSULT DATE OF NOTE: DECEMBER 05, 2023@12:06 ENTRY DATE: DECEMBER 05, 2023@12:06:15 AUTHOR: JOSUE SIMMONS EXP COSIGNER: URGENCY: STATUS: COMPLETED 11-25-23 [facility] walk-in clinic in [place] Chief complaint: Right ear cerumen blockage Irrigated Discharged home /es/ Josue Simmons MD Staff Physician Signed: 12/05/2023 12:06 [facility] SIMMONS [facility]
--- OUTSIDE RECORDS SUMMARY | 2024-06-23 14:06 | XMS_ITS | Encounter Summary ---
Author Name [facility] [place] Address [address] [place] [address] Care Team Providers Care Site Safety Manager Name Role Phone BYRON SIMMONS Primary Care [...] Dec 19, 2007 MEDICAR E SUPPLEM E [id number] [phone] NYDIA HUERTA PATIENT [employer] MEDICARE SUPPLEMEN YORDAN Dec 19, 2007 MEDICAR E SUPPLEM E [id number] NYDIA HUERTA UL PATIENT [employer] [place] MEDICARE SUPPLEMEN YORDAN BANKE RS Dec 19, 2007 NONE [id number] NYDIA HUERTA PATIENT MEDICARE (WNR) MEDICARE (M) PART B Oct 13, 2006 PART B [id number] NYDIA HUERTA UL PATIENT MEDICARE (WNR) MEDICARE (M) PART B Oct 13, 2006 PART B [id number] [phone] NYDIA HUERTA PATIENT MEDICARE (WNR) MEDICARE (M) PART B Oct 13, 2006 PART B [id number] [phone] NYDIA HUERTA PATIENT MEDICARE (WNR) MEDICARE (M) PART B Oct 13, 2006 PART B [id number] NYDIA HUERTA PATIENT MEDICARE (WNR) MEDICARE (M) PART A Sep 13, 2003 PART A [id number] NYDIA HUERTA UL PATIENT MEDICARE (WNR) MEDICARE (M) PART A Sep 13, 2003 PART A [id number] NYDIA HUERTA PATIENT MEDICARE (WNR) MEDICARE (M) PART A Sep 13, 2003 PART A [id number] NYDIA HUERTA PATIENT MEDICARE (WNR) MEDICARE (M) PART A Sep 13, 2003 PART A [id number] [phone] NYDIA HUERTA PATIENT Selected Encounter This section includes the information on record at [place] for the Encounter. Date/Time Encounter Type Encounter Description Reason Provider Source December 05, 2023 10:00 AM UNLISTED SPEC DERM SVC/PX DERMATOLOGY ICD-10-CM Z13.89 Encounter for screening for other disorder SALMA BEAUCHAMP [facility] Encounter Template Text not used by [place] Assessments - Encounter Diagnoses This section includes the primary and secondary diagnoses documented for the Encounter. Date/Time Primary/Secondary Diagnosis Diagnosis Name Provider Source Dec 28, 2023 08:14 AM PRIMARY Encounter for screening for other disorder SALMA BEAUCHAMP [facility] Plan of Treatment: Future Appointments (+ 6 months) and Future Tests (+/- 45 days) The Plan of Treatment section includes future care activities for the patient from all [place] treatmentfacilities. This section includes future appointments and future orders which are active, pending or scheduled. Future Appointments This section includes appointments that were scheduled to occur 6 months from the date of the Encounter, up to a maximum of 20 appointments. The data comes from all [place] treatment facilities. Appointment Date/Time Appointment Type Appointme nt Facility Name Dec 30, 2023 11:00 AM [facility]BULAT[facility] [place] [facility] Jan 13, 2024 01:20 PM AMBULATORY - MEDICINE [facility] [place] [facility] Jan 21, 2024 08:00 AM AMBULATORY - MEDICINE [facility] [place] [facility] Feb 03, 2024 01:30 PM AMBULATORY - REHAB MEDICIN E [facility] [place] [facility] Mar 05, 2024 08:00 AM AMBULATORY - MEDICINE [facility] [place] [facility] Mar 05, 2024 09:00 AM AMBULATORY - MEDICINE [facility] [place] [facility] Mar 06, 2024 08:00 AM AMBULATORY - MEDICINE [facility] [place] [facility] Mar 24, 2024 02:00 PM AMBULATORY - MEDICINE [facility] [place] [facility] Mar 31, 2024 09:30 AM AMBULATORY - REHAB MEDICIN E [facility] [place] [facility] Apr 13, 2024 01:30 PM AMBULATORY - MEDICINE [facility] [place] [facility] Apr 28, 2024 02:00 PM AMBULATORY - MEDICINE [facility] [place] [facility] May 05, 2024 02:00 PM AMBULATORY - REHAB MEDICIN E [facility] [place] [facility] Social History: Smoking Status (Most current) and Tobacco Use (All prior to encounter date) This section includes the most current, and the historical, smoking and tobacco- related health factors from the [place] facility where the Encounter took place. Current Smoking Status This section includes the most current smoking, or tobacco-related health factor, from the [place] facility where the Encounter took place. Date/Time Current Smoking Status Comment Facil ity Oct 16, 2023 01:30 PM VA-TOBACCO FORMER USER [place] [facility] [place] [facility] Tobacco Use History This section includes a history of the smoking, or tobacco-related health factors, that were collected on or before the date of the Encounter. The data comes from the [place] facility where the Encounter took place. Date/Time Smoking Status/Tobacco Use Comment F acgary Oct 16, 2023 01:30 PM VA-TOBACCO QUIT 15 YRS OR MORE [facility] [place] [facility] Jul 04, 2022 11:00 AM VA-TOBACCO FORMER USER [place] [facility] [place] [facility] Jul 04, 2022 11:00 AM VA-TOBACCO QUIT 15 YRS OR MORE [place] [facility] [place] [facility] Jun 28, 2021 10:30 AM VA-TOBACCO FORMER USER [facility] [place] [facility] Jun 28, 2021 10:30 AM VA-TOBACCO QUIT 15 YRS OR MORE [place] [facility] [place] [facility] May 26, 2020 08:00 AM VA-TOBACCO FORMER USER [facility] [place] [facility] May 26, 2020 08:00 AM VA-TOBACCO QUIT 15 YRS OR MORE [place] [facility] [place] [facility] May 23, 2018 11:21 AM VA-TOBACCO NEVER USED [place] [facility] Advance Directives: All historical and current Section Date Range: From patient's date of to the date document was created. This section includes ALL of a patient's completed or amended [place] Advance and Rescinded Directives. The entries below indicate that a directive exists for the patient, but an actual copy is not included with this document. The data comes from all [place] facilities. Date Advance Directives Provider Source Feb 19, 2022 ADVANCE DIRECTIVE JOCE CASTORENA [place] [facility] [place] [facility] November 16, 2020 ADVANCE DIRECTIVE BYRON SIMMONS [place] [facility] [place] [facility] Encounter Notes: All associated encounter notes This section contains the clinical notes associated to the Encounter. Date/Time Encounter Note(s) Provider Source December 05, 2023 03:22 PM TELEHEALTH NOTE: LOCAL TITLE: PATIENT NOTIFICATION TELEHEALTH RESULTS STANDARD TITLE: TELEHEALTH NOTE DATE OF NOTE: DECEMBER 05, 2023@15:22 ENTRY DATE: DECEMBER 05, 2023@15:22:41 AUTHOR: SALMA BEAUCHAMP COSIGNER: URGENCY: STATUS: COMPLETED Here are the results from today's Teledermatology appt. REMOTE RESULTS RUBI Document from: [facility] Associated on: December 05, 2023@15:06:48 LOCAL TITLE: CONSULT-TELEDERMATOLOGY IMAGING REPORT STANDARD TITLE: TELEIMAGING REPORT DATE OF NOTE: DECEMBER 05, 2023@15:05 ENTRY DATE: DECEMBER 05, 2023@15:05:18 AUTHOR: IRENA BRADFORD COSIGNER: URGENCY: STATUS: COMPLETED HISTORY: This is an 83-year-old male with a previous history of BCC was consulted for evaluation of a lesion on the right lower back. Asymptomatic. OVERALL CONSULT/IMAGE QUALITY: Fully satisfactory EXAM: 8 mm brown macule with graffiti cleaner medial pole. IMPRESSION BASED ON IMAGES AND INFORMATION REVIEWED: PROBLEM A: Diagnosis: Neoplasm uncertain behavior RECOMMENDATIONS FOR REFERRING PROVIDER: PROBLEM A: Biopsy: RECOMMENDED FOLLOW-UP: Consult to Dermatology clinic for follow up for biopsy and should have CONSTANTINE skin exam due to history of BCC. MARC: Cumulative time of review and management: 5 minutes or more /eleanor/ IRENA BRADFORD PA-C DERMATOLOGY CLINIC Signed: 12/05/2023 15:06 * END OF REMOTE RESULTS * /eleanor/ SALMA BEAUCHAMP TELEHEALTH CLINICAL PAVING AND SURFACING LABOURER Signed: 12/05/2023 15:23 Receipt Acknowledged By: 12/10/2023 10:52 /es/ RANCHO RODRIGUEZ DNP, CHILD CARE ASSOCIATE TEACHER-C NURSE PRACTITIONER 12/05/2023 15:32 /es/ Byron Simmons MD Staff Physician SALMA BEAUCHAMP [place] [facility] December 05, 2023 09:57 AM TELEHEALTH CONSULT : LOCAL TITLE: CONSULT REPORT/TELEDERMATOLOGY IMAGING REQUEST STANDARD TITLE: TELEHEALTH CONSULT DATE OF NOTE: DECEMBER 05, 2023@09:57 ENTRY DATE: DECEMBER 05, 2023@09:57:18 AUTHOR: SALMA BEAUCHAMP COSIGNER: URGENCY: STATUS: COMPLETED Teledermatology Consult Request The patient was educated regarding the Teledermatology process at this encounter. Comment: Patient educated on telederm process and verbalizes understanding Patient DOES consent to have images taken, viewed, and interpreted using the Teledermatology process. This consult addresses: A new condition Images were acquired: In clinic HISTORY: Prior skin history: Yes Cancerous Lesions on face removed in the past Have you had a skin cancer before? Basal Cell Carcinoma (BCC) Patient reports no family history of melanoma. Taking new med/supplements: None reported Immunosuppression history: None reported Other significant history: None reported Chief Complaint: Request biopsy of lesion on right lower back to look for melanoma PROBLEM A LOCATION(S): Trunk Right Lower Back DURATION: few weeks SYMPTOMS: No Symptoms CHANGES: unsure TREATMENT: No BIOPSY: No Client Success Director's comments: Imaged per providers direction and facility protocol /eleanor/ SALMA BEAUCHAMP TELEHEALTH CLINICAL PAVING AND SURFACING LABOURER Signed: 12/05/2023 10:32 SALMA BEAUCHAMP [facility]
--- OUTSIDE RECORDS SUMMARY | 2024-06-23 14:06 | XMS_ITS ---
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 Organization [place] Address [address] [place] [address] Care Team Providers Care Custom Decorating Consultant Name Role Phone JOSUE SIMMONS Primary [...] Dec 19, 2007 MEDICAR E SUPPLEM E [id number] [phone] NYDIA HUERTA UL PATIENT [employer] MEDICARE SUPPLEMEN YORDAN Dec 19, 2007 MEDICAR E SUPPLEM E [id number] NYDIA HUERTA UL PATIENT [employer] CO MEDICARE SUPPLEMEN YORDAN BANKE RS Dec 19, 2007 NONE [id number] NYDIA HUERTA UL PATIENT MEDICARE (WNR) MEDICARE (M) PART B Oct 13, 2006 PART B [id number] NYDIA HUERTA UL PATIENT MEDICARE (WNR) MEDICARE (M) PART B Oct 13, 2006 PART B [id number] [facility] [phone] [place] UL PATIENT MEDICARE (WNR) MEDICARE (M) PART B Oct 13, 2006 PART B [id number] [phone] NYDIA HUERTA PATIENT MEDICARE (WNR) MEDICARE (M) PART B Oct 13, 2006 PART B [id number] NYDIA HUERTA PATIENT MEDICARE (WNR) MEDICARE (M) PART A Sep 13, 2003 PART A [id number] [phone] NYDIA HUERTA PATIENT MEDICARE (WNR) MEDICARE (M) PART A Sep 13, 2003 PART A [id number] [phone] NYDIA HUERTA PATIENT MEDICARE (WNR) MEDICARE (M) PART A Sep 13, 2003 PART A [id number] [phone] NYDIA HUERTA PATIENT MEDICARE (WNR) MEDICARE (M) PART A Sep 13, 2003 PART A [id number] [phone] NYDIA HUERTA PATIENT Selected Encounter This section includes the information on record at [place] for the Encounter. Date/Time Encounter Type Encounter Description Reason Pro vider Source December 05, 2023 03:28 PM Outpatient Encounter PRIMARY CARE/MEDICINE IHE Encounter Template Text not used by [place] Plan of Treatment: Future Appointments (+ 6 months) and Future Tests (+/- 45 days) The Plan of Treatment section includes future care activities for the patient from all [place] treatmentfacilities. This section includes future appointments and future orders which are active, pending or scheduled. Future Appointments This section includes appointments that were scheduled to occur 6 months from the date of the Encounter, up to a maximum of 20 appointments. The data comes from all [place] treatment facilities. Appointment Date/Time Appointment Type Appointme nt Facility Name Dec 30, 2023 11:00 AM AMBULATORY - REHAB MEDICIN E [place] [facility] [place] [facility] Jan 13, 2024 01:20 PM AMBULATORY - MEDICINE [place] [facility] [place] [facility] Jan 21, 2024 08:00 AM AMBULATORY - MEDICINE [place] [facility] [place] [facility] Feb 03, 2024 01:30 PM AMBULATORY - REHAB MEDICIN E [facility] [place] [facility] Mar 05, 2024 08:00 AM AMBULATORY - MEDICINE [facility] [place] [facility] Mar 05, 2024 09:00 AM AMBULATORY - MEDICINE [facility] [place] [facility] Mar 06, 2024 08:00 AM AMBULATORY - MEDICINE [facility] [place] [facility] Mar 24, 2024 02:00 PM AMBULATORY - MEDICINE VA [facility] [place] [facility] Mar 31, 2024 09:30 AM AMBULATORY - REHAB MEDICIN E [facility] [place] [facility] Apr 13, 2024 01:30 PM AMBULATORY - MEDICINE [facility] [place] [facility] Apr 28, 2024 02:00 PM AMBULATORY - MEDICINE [facility] [place] [facility] May 05, 2024 02:00 PM AMBULATORY - REHAB MEDICIN E [facility] [place] [facility] Social History: Smoking Status (Most current) and Tobacco Use (All prior to encounter date) This section includes the most current, and the historical, smoking and tobacco- related health factors from the [place] facility where the Encounter took place. Current Smoking Status This section includes the most current smoking, or tobacco-related health factor, from the [place] facility where the Encounter took place. Date/Time Current Smoking Status Comment Facil ity Oct 16, 2023 01:30 PM VA-TOBACCO FORMER USER [place] [facility] [place] [facility] Tobacco Use History This section includes a history of the smoking, or tobacco-related health factors, that were collected on or before the date of the Encounter. The data comes from the [place] facility where the Encounter took place. Date/Time Smoking Status/Tobacco Use Comment F acility Oct 16, 2023 01:30 PM VA-TOBACCO QUIT 15 YRS OR MORE [facility] [place] [facility] Jul 04, 2022 11:00 AM VA-TOBACCO FORMER USER [place] [facility] [place] [facility] Jul 04, 2022 11:00 AM VA-TOBACCO QUIT 15 YRS OR MORE [place] [facility] [facility] Jun 28, 2021 10:30 AM VA-TOBACCO FORMER USER [place] [facility] [place] [facility] Jun 28, 2021 10:30 AM VA-TOBACCO QUIT 15 YRS OR MORE [facility] [place] [facility] May 26, 2020 08:00 AM VA-TOBACCO FORMER USER [place] [facility] [place] [facility] May 26, 2020 08:00 AM VA-TOBACCO QUIT 15 YRS OR MORE [place] [facility] [place] [facility] May 23, 2018 11:21 AM VA[facility]TOBACCO [facility] Advance Directives: All historical and current Section Date Range: From patient's date of to the date document was created. This section includes ALL of a patient's completed or amended [place] Advance and Rescinded Directives. The entries below indicate that a directive exists for the patient, but an actual copy is not included with this document. The data comes from all [place] facilities. Date Advance Directives Provider Source Feb 19, 2022 ADVANCE DIRECTIVE [facility] November 16, 2020 ADVANCE DIRECTIVE [facility]OSUE SIMMONS [facility] Encounter Notes: All associated encounter notes This section contains the clinical notes associated to the Encounter. Date/Time Encounter Note(s) Provider Source December 05, 2023 03:30 PM LETTERS: LOCAL TITLE: PATIENT LETTER (T) STANDARD TITLE: LETTERS DATE OF NOTE: DECEMBER 05, 2023@15:30 ENTRY DATE: DECEMBER 05, 2023@15:30:11 AUTHOR: JOSUE SIMMONS EXP COSIGNER: URGENCY: STATUS: COMPLETED [facility] Toll Free Number Primary Care Telephone Assistance can be reached at extension [phone] [facility] scheduling can be reached at extension [phone] [facility] scheduling can be reached at ext [phone] ALYCIA HUERTA [address] [place] [address], [address] December 05, 2023 Dear [place], Please find enclosed a copy of recent testing. Teledermatology recommends a biopsy of the lesion on your back to make sure there is no skin cancer. I entered a request for dermatology appointment. They will call you for the appointment. Please contact me if you have questions. Respectfully, Josue Simmons MD Sincerely, Your Primary Care Team [facility] [address] [place] [id number] [place] [address] [phone] [facility] [address] [place] [address] [place] [address] [phone] [facility] [address] [facility] [place] [id number] [place] [address] [phone] JOSUE SIMMONS [facility]
--- OUTSIDE RECORDS SUMMARY | 2024-06-23 14:06 | XMS_ITS ---
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 Organization [facility] [place] Address [address] [place] [address] Care Team Providers Care Hide Selector Name Role Phone BYRON SIMMONS Primary Care [...] Dec 19, 2007 MEDICAR E SUPPLEM E [id number] [phone] NYDIA HUERTA UL PATIENT [employer] MEDICARE SUPPLEMEN YORDAN Dec 19, 2007 MEDICAR E SUPPLEM E [id number] NYDIA HUERTA UL PATIENT [employer] CASUALTY [place] MEDICARE SUPPLEMEN YORDAN BANKE RS Dec 19, 2007 NONE [id number] NYDIA HUERTA UL PATIENT MEDICARE (WNR) MEDICARE (M) PART B Oct 13, 2006 PART B [id number] NYDIA HUERTA UL PATIENT MEDICARE (WNR) MEDICARE (M) PART B Oct 13, 2006 PART B [id number] [facility] [phone] [place] UL PATIENT MEDICARE (WNR) MEDICARE (M) PART B Oct 13, 2006 PART B [id number] NYDIA HUERTA PATIENT MEDICARE (WNR) MEDICARE (M) PART B Oct 13, 2006 PART B [id number] [phone] NYDIA HUERTA PATIENT MEDICARE (WNR) MEDICARE (M) PART A Sep 13, 2003 PART A [id number] NYDIA HUERTA PATIENT MEDICARE (WNR) MEDICARE (M) PART A Sep 13, 2003 PART A [id number] [phone] NYDIA HUERTA PATIENT MEDICARE (WNR) MEDICARE (M) PART A Sep 13, 2003 PART A [id number] NYDIA HUERTA PATIENT MEDICARE (WNR) MEDICARE (M) PART A Sep 13, 2003 PART A [id number] NYDIA HUERTA PATIENT Selected Encounter This section includes the information on record at [place] for the Encounter. Date/Time Encounter Type Encounter Description Reason Pro vider Source December 01, 2023 06:52 PM Outpatient Encounter PRIMARY CARE/MEDICINE IHE Encounter [...] 05, 2023 10:00 AM AMBULATORY - NONE [place] [facility] [place] [facility] Dec 30, 2023 11:00 AM AMBULATORY - REHAB MEDICIN E [place] [facility] [place] [facility] Jan 13, 2024 01:20 PM AMBULATORY - MEDICINE [place] [facility] [place] [facility] Jan 21, 2024 08:00 AM AMBULATORY - MEDICINE [place] [facility] [place] [facility] Feb 03, 2024 01:30 PM AMBULATORY - REHAB MEDICIN E [facility] [place] [facility] Mar 05, 2024 08:00 AM AMBULATORY - MEDICINE [place] [facility] [place] [facility] Mar 05, 2024 09:00 AM AMBULATORY - MEDICINE [place] [facility] [place] [facility] Mar 06, 2024 08:00 AM AMBULATORY - MEDICINE [place] [facility] [place] [facility] Mar 24, 2024 02:00 PM AMBULATORY - MEDICINE [place] [facility] [place] [facility] Mar 31, 2024 09:30 AM AMBULATORY - REHAB MEDICIN E [facility] [place] [facility] Apr 13, 2024 01:30 PM AMBULATORY - MEDICINE [facility] [place] [facility] Apr 28, 2024 02:00 PM AMBULATORY - MEDICINE [facility] [place] [facility] May 05, 2024 02:00 PM AMBULATORY - REHAB MEDICIN E [facility] [place] [facility] Social History: Smoking Status (Most [...] VA-TOBACCO FORMER USER [facility] [place] [facility] Tobacco Use History This section includes a history of the smoking, or tobacco-related health factors, that were collected on or before the date of the Encounter. The data comes from the [place] facility where the Encounter took place. Date/Time Smoking Status/Tobacco Use Comment F acgary Oct 16, 2023 01:30 PM VA-TOBACCO QUIT 15 YRS OR MORE [facility] [place] [facility] Jul 04, 2022 11:00 AM VA-TOBACCO FORMER USER [facility] [place] [facility] Jul 04, 2022 11:00 AM VA-TOBACCO QUIT 15 YRS OR MORE [facility] [place] [facility] Jun 28, 2021 10:30 AM VA-TOBACCO FORMER USER [facility] [place] [facility] Jun 28, 2021 10:30 AM VA-TOBACCO QUIT 15 YRS OR MORE [place] [facility] [place] [facility] May 26, 2020 08:00 AM VA-TOBACCO FORMER USER [place] [facility] [place] [facility] May 26, 2020 08:00 AM VA-TOBACCO QUIT 15 YRS OR MORE [place] [facility] [place] [facility] May 23, 2018 11:21 AM [facility]TOBACCO [facility]ED [facility] Advance Directives: All [...] Feb 19, 2022 ADVANCE DIRECTIVE [facility] November 16, 2020 ADVANCE DIRECTIVE BYRON SIMMONS [facility] Encounter Notes: All associated encounter notes This section contains the clinical notes associated to the Encounter. Date/Time Encounter Note(s) Provider Source December 01, 2023 06:52 PM PHYSICIAN NOTE: LOCAL TITLE: MD NOTE STANDARD TITLE: PHYSICIAN NOTE DATE OF NOTE: DECEMBER 01, 2023@18:52 ENTRY DATE: DECEMBER 01, 2023@18:52:36 AUTHOR: BYRON SIMMONS EXP COSIGNER: URGENCY: STATUS: COMPLETED MD NOTE Has ADDENDA Teledermatology consult suggested possible melanoma and recommended dermatology follow-up within 2 to 4 weeks. Patient has dermatology appointment 02-11-2024. Is this appropriate? Should I send the patient to community care dermatology or general surgery? Please advise. Thank you. /tena Simmons MD Staff Physician Signed: 12/01/2023 18:53 Receipt Acknowledged By: 12/02/2023 07:33 /eleanor/ RANCHO RODRIGUEZ DNP, VIDA-Yossi NURSE PRACTITIONER 12/02/2023 ADDENDUM STATUS: COMPLETED New consult not needed, is an established patient. Will forward consult to TeleDerm re: R low back lesion for prompt imaging and triage. /eleanor/ RANCHO RODRIGUEZ DNP, EARLY BREASTFEEDING CARE SPECIALIST-C NURSE PRACTITIONER Signed: 12/02/2023 07:33 BYRON SIMMONSRCarlo [facility]
--- OUTSIDE RECORDS SUMMARY | 2024-06-23 14:06 | XMS_ITS | Encounter Summary ---
Author Name [facility] [place] [facility] [place] Organization [facility] [place] [facility] [place] Address [address] [place] [address] Care Team Providers Care Car Shagger Name Role Phone BYRON BARRON Primary Care [...] Dec 19, 2007 MEDICAR E SUPPLEM E [id number] NYDIA HUERTA UL PATIENT [employer] MEDICARE SUPPLEMEN YORDAN Dec 19, 2007 MEDICAR E SUPPLEM E [id number] NYDIA HUERTA UL PATIENT [employer] [place] MEDICARE SUPPLEMEN YORDAN BANKE RS Dec 19, 2007 NONE [id number] NYDIA HUERTA UL PATIENT MEDICARE (WNR) MEDICARE (M) PART B Oct 13, 2006 PART B [id number] [facility] NYDIA HUERTA UL PATIENT MEDICARE (WNR) MEDICARE (M) PART B Oct 13, 2006 PART B [id number] NYDIA HUERTA UL PATIENT MEDICARE (WNR) MEDICARE (M) PART B Oct 13, 2006 PART B [id number] NYDIA HUERTA PATIENT MEDICARE (WNR) MEDICARE (M) PART B Oct 13, 2006 PART B [id number] NYDIA HUERTA PATIENT MEDICARE (WNR) MEDICARE (M) PART A Sep 13, 2003 PART A [id number] [phone] NYDIA HUERTA UL PATIENT MEDICARE (WNR) MEDICARE (M) PART A Sep 13, 2003 PART A [id number] NYDIA HUERTA PATIENT MEDICARE (WNR) MEDICARE (M) PART A Sep 13, 2003 PART A [id number] [id number] [phone] NYDIA HUERTA PATIENT MEDICARE (WNR) MEDICARE (M) PART A Sep 13, 2003 PART A [id number] [phone] NYDIA HUERTA PATIENT Selected Encounter This section includes the information on record at [place] for the Encounter. Date/Time Encounter Type Encounter Description Reason Provider Source Dec 30, 2023 11:00 AM TYMPANOMETRY AUDIOLOGY ICD-10-CM H90.6 Mixed conductive and sensorineural hearing loss, bilateral CAMINITI,SAAD E IHE Encounter Template Text not used by [place] Assessments - Encounter Diagnoses This section includes the primary and secondary diagnoses documented for the Encounter. Date/Time Primary/Secondary Diagnosis Diagnosis Name Provider Source Dec 30, 2023 11:58 AM PRIMARY Mixed conductive and sensorineural hearing loss, bilateral CAMINITI,SAAD E [facility] Plan of Treatment: Future Appointments (+ 6 months) and Future Tests (+/- 45 days) The Plan of Treatment section includes future care activities for the patient from all [place] treatmentfacilities. This section includes future appointments and future orders which are active, pending or scheduled. Future Appointments This section includes appointments that were scheduled to occur 6 months from the date of the Encounter, up to a maximum of 20 appointments. The data comes from all [place] treatment facilities. Appointment Date/Time Appointment Type Appointme nt Facility Name Jan 13, 2024 01:20 PM AMBULATORY - MEDICINE [facility] Jan 21, 2024 08:00 AM AMBULATORY - MEDICINE [facility] [place] [facility] Feb 03, 2024 01:30 PM AMBULATORY - REHAB MEDICIN E [facility] [place] [facility] Mar 05, 2024 08:00 AM AMBULATORY - MEDICINE [facility] [place] [facility] Mar 05, 2024 09:00 AM AMBULATORY - MEDICINE [facility] [place] [facility] Mar 06, 2024 08:00 AM AMBULATORY - MEDICINE [facility] [place] [facility] Mar 24, 2024 02:00 PM AMBULATORY - MEDICINE [facility] [place] [facility] Mar 31, 2024 09:30 AM AMBULATORY - REHAB MEDICIN E [facility] [place] [facility] Apr 13, 2024 01:30 PM AMBULATORY - MEDICINE [facility] [place] [facility] Apr 28, 2024 02:00 PM AMBULATORY - MEDICINE [facility] [place] [facility] May 05, 2024 02:00 PM AMBULATORY - REHAB MEDICIN E [facility] [place] [facility] Jun 16, 2024 01:15 PM AMBULATORY - MEDICINE [place] [facility] [place] [facility] Social History: Smoking Status (Most current) and Tobacco Use (All prior to encounter date) This section includes the most current, and the historical, smoking and tobacco- related health factors from the [place] facility where the Encounter took place. Current Smoking Status This section includes the most current smoking, or tobacco-related health factor, from the [place] facility where the Encounter took place. Date/Time Current Smoking Status Comment Facil ity Oct 16, 2023 01:30 PM VA-TOBACCO FORMER USER [place] [facility] [place] [facility] Tobacco Use History This section includes a history of the smoking, or tobacco-related health factors, that were collected on or before the date of the Encounter. The data comes from the [place] facility where the Encounter took place. Date/Time Smoking Status/Tobacco Use Comment F acility Oct 16, 2023 01:30 PM VA-TOBACCO QUIT 15 YRS OR MORE [facility] [place] [facility] Jul 04, 2022 11:00 AM VA-TOBACCO FORMER USER [facility] [place] [facility] Jul 04, 2022 11:00 AM VA-TOBACCO QUIT 15 YRS OR MORE [facility] Jun 28, 2021 10:30 AM VA-TOBACCO FORMER USER [facility] Jun 28, 2021 10:30 AM VA-TOBACCO QUIT 15 YRS OR MORE [place] [facility] [place] [facility] May 26, 2020 08:00 AM VA-TOBACCO FORMER USER [place] [facility] [place] [facility] May 26, 2020 08:00 AM VA-TOBACCO QUIT 15 YRS OR MORE [place] [facility] [place] [facility] May 23, 2018 11:21 AM [facility]BACCO [facility] Advance Directives: All historical and current Section Date Range: From patient's date of to the date document was created. This section includes ALL of a patient's completed or amended [place] Advance and Rescinded Directives. The entries below indicate that a directive exists for the patient, but an actual copy is not included with this document. The data comes from all [place] facilities. Date Advance Directives Provider Source Feb 19, 2022 ADVANCE DIRECT[facility] November 16, 2020 ADVANCE DIRECTIVE BYRON BARRON [facility] Encounter Notes: All associated encounter notes This section contains the clinical notes associated to the Encounter. Date/Time Encounter Note(s) Provider Source Dec 30, 2023 10:07 AM AUDIOLOGY E & M NO TE: LOCAL TITLE: AUDIOLOGY CLINIC STANDARD TITLE: AUDIOLOGY E & M NOTE DATE OF NOTE: DEC 30, 2023@10:07 ENTRY DATE: DEC 30, 2023@10:07:18 AUTHOR: SAAD HARRINGTON COSIGNER: URGENCY: STATUS: COMPLETED Allgood was seen 12-30-23 for a hearing re-evaluation. He reports he is having difficulty hearing conversation and hearing people approach him. Hearing was last evaluated in 2018 for C&P purposes, at which time he was diagnosed with bilateral mixed hearing loss. [facility] and reports he has never seen an ENT. He states that [facility] recently 'threw him out'/said they couldn't help him. At the time of his C&P exam in 2019, he was noted to be wearing bilateral CIC style hearing aids from [facility] that were about three years old at the time. He reports he does not have any hearing aids that work currently and did not bring any with him. He reports occasional tinnitus and denies vertigo. He states that hearing may have declined. He wonders if he needs BTEs. Results are as follow: Otoscopy is WNL for the left ear while revealing a moderate amount of cerumen, right ear. Pure tone audiometric testing with headphones* of the left ear revealed normal hearing at 250 and 500 Hz, sloping to a moderately severe mixed hearing loss. Right ear testing revealed a moderate sloping to severe mixed hearing loss. Results from 9538-2164 Hz reflect testing with inserts, as those results were improved. Asymmetry, worse right ear, was noted from 250-1000 Hz and at 8000 Hz. Asymmetry was also noted at 2000 and 6000 Hz, where the left ear is worse. Word recognition scores were good with 84% correct for each ear for recorded speech presented at 90 dB HL (masked). Normal tympanograms were obtained bilaterally. Results obtained today reflect a decline in thresholds for select frequencies (both ears) in comparison to those from 2019. was counseled on today's test results. Given asymmetry and the mixed component, ENT evaluation is recommended and medical clearance for amplification is required. Consult submitted to [facility] ENT. Allgood will contact the clinic to schedule HAS when he is cleared. /Alcon Ellsworth, [facility]-A STAFF ELEMENTARY MATH TUTOR Signed: 12/30/2023 13:50 SAAD HARRINGTON [facility]
--- OUTSIDE RECORDS SUMMARY | 2024-06-23 14:07 | XMS_ITS ---
Author Organization [facility] Address [address] [place] [address] Care Team Providers Care Vice President Of Software Development Name Role Phone Josue Simmons MD Primary Care Provider Unavailab Lyn Damico [phone] REASON FOR VISIT FIXED INCOME MANAGER PPWK Entered Encounters Encounter Location Date Provider Diagnosis [facility] [address] [place] [address] 03/12/2024 Lyn Lund Plan Of Treatment No Information Progress Notes * Reed MALLORY HDOB:1940 (83 yo M)Acc No.[id number]:03/12/2024 Patient:?Reed Mallory :1940???Age:83 Y???Sex:Male Address:[address] [place] [address] * true * Date:? Generated for Printi ng/Famichaelg/eTransmitting on:?06/23/2024 02:06 PM EST
--- OUTSIDE RECORDS SUMMARY | 2024-06-23 14:07 | XMS_ITS ---
Author Organization [facility] Address [address] [place] [address] Care Team Providers Care Concrete Swimming Pool Installer Name Role Phone Josue Simmons MD Primary Care Provider Unavailab melinda Lyn Lund Unavailable [phone] Allergies Allergen (clinical drug ingredient) Drug/Non Drug [...] 750 MG as directed Orally q d pc for 30 Unknown Meloxicam 15 MG 1 tablet Orally Once a day for 30 Unknown Atenolol 50 MG 1 tablet [...] 04/23/2024 Encounters Encounter Location Date Provider Diagnosis [facility] [address] [place] [address] 04/23/2024 Lyn Lund Plan Of Treatment No Information Progress Notes * Reed MALLORY HDOB:1940 (83 yo M)Acc No.[id number]:04/23/2024 Progress Notes Patient:Reed VANCE Provider:?Lyn Lund DPM :1940???Age:83 Y???Sex:Male Chu e:04/23/2024 Address:[address] [place], [place] [address] Pcp:Josue Simmons MD Subjective: * Chief Complaints: * ??? * ROS:?General/Constitutional:?Nausea?denies.?Vomiting?denies.?Hunger Thirst?denies.?Loss appetite?denies.?Chills?denies.?Fatigue?denies.?Fever?denies.?Night Sweats?admits.?Unexplained weight loss?denies.?Unexplained weight gain?denies.?HEENTM:?Dentures?admits.?Dizziness?denies.?Glasses/contacts?admits.?Retinopathy?de nies.?Blurred/double vision?denies.?TMJ?denies.?Discharge/drainage?denies.?Implants?denies.?Sore throat?denies.?Dental implants?denies.?Hard of hearing ?admits.?Difficulty chewing/swallowing/speaking?denies.?Nose bleeds?denies.?Sore mouth?denies.?Respiratory:?On Oxygen?denies.?Pneumonia/pleurisy?denies.?Bronchitis?denies.?Emphysema?denies.?C oughing?denies.?Cough blood?denies.?Shortness of breath?admits.?Wheezing?denies.?Cardiovascular:?Pacemaker?denies.?MVP?denies.?WPW?denies.?CHF?denies.?Heart attack?admits.?Septal defect?denies.?Rapid beat?denies.?Chest pain ?denies.?Atrial Fib.?denies.?Murmur/Palpitations?denies.?Gastrointestinal:?Hemorrhoids?denies.?Stomach/Abdominal pain?denies.?Dark blood stool?denies.?Irritable bowel ?denies.?Constipation?denies.?Diarrhea?denies.?Hematology:?Swelling?admits.?Clots?denies.?Varicose Veins?denies.?Bruising?denies.?Bleeding problem?denies.?Genitourinary:?Blood urine?denies.?Frequent/Painfu/urination/bladder control?denies.?Kidney stones?admits.?Infection (UTI)?denies.?Nephropathy?denies.?sex trans dis (STD)?denies.?Prostate?denies.?Musculoskeletal:?Hammertoes?denies.?Bunions?denies.?Back Pain?admits.?Muscle Cramps/ Resting?admits.?Muscle cramps / walking?denies.?Generalized aches and pains?denies.?Weakness?denies.?Integ.:?Piper?denies.?Scars?denies.?Corns/calluses?denies.?Ingrown nails?admits.?Painful nails?admits.?Open Sores?denies.?Rashes?denies.?Neurologic:?Difficulty sleeping?denies.?Brain disorder?denies.?Numbness?denies.?Balance trouble?denies.?Confusion?denies.?Fainting/blackouts?denies.?Tingling?denies.?Tr emors?denies.? * Medical History:?Arthritis, Asthma, Back,Hip,and Knee pain, Heart attack, High blood pressure, Macular degeneration, Stomach ulcer, Thyroid disorder, Measles, Chicken pox, Broken bones, CAD (Cholesterol), Cataracts, Headaches/Migraines, Heart disease, Sinusitis, Mumps, Replacement Heart Valves. * Surgical History:?appendecto my 1949, thyroid 1959, kidney stones 1959, left ankle 01/14/24, aortic valve replacement 2021. * Family History:?Mother: dece ased, diagnosed with Family history of arthritis.?Father: , heart attack, diagnosed with Unspecified essential hypertension.?Maternal Grand Mother: diagnosed with Diabetic - NIDDM.?Siblings: diagnosed with Unspecified heart disease, Other malignant neoplasm of unspecified site.? * Social History:?Tobacco Use:?Tobacco Use/Smoking?Are you a:?former smoker ?Additional Findings: Tobacco Non-User?Current non-smoker ?Tobacco use other than smoking?Are you an other tobacco user??No ???Drugs/Alcohol:?Drugs?Have you used drugs other than those for medical reasons in the past 12 months??No ?Alcohol Screen?Did you have a drink containing alcohol in the past year??Yes ?Points?0 ?Interpretation?Negative ???Miscellaneous:?Caffeine: yes, 1-2 cups per day. ?Children: yes, 4. ?Exercise: yes, gardening/yard work. ?Marital status: . * Medications:?Taking Metoprol ol Succinate , Taking Ezetimibe , Taking Atorvastatin [...] 1 tablet Orally Once a day * Allergies:?Cipro, Levaquin, NOVOCAINE. Objective: * Vitals:?Ht: 5 ft 6 in, Wt: 1 90, BMI: 30.66, Shoe size: 9, Ht-cm: 167.64 cm, Wt- k.18 kg. Assessment: Plan: * Treatment: * Images: * The named appointment provid er may or may not be the originator of this progress note, and it is not deemed complete until electronically signed by the appointment provider. Sign off status: Pending * Provider:Nery Lund DPM Date:?2023 Generated for Yokasta palacios/Ilda/Sunil on:?06/23/2024 02:06 PM EST
--- OUTSIDE RECORDS SUMMARY | 2024-06-23 14:07 | XMS_ITS ---
Author Organization [facility] Address [address] [place] [address] Care Team Providers Care Car Supervisor Name Role Phone Josue Simmons MD Primary Care Provider Unavailab Lyn Damico [phone] REASON FOR VISIT 04/23/24 Encounters Encounter Location Date Provider Diagnosis [facility] [address] [place] [address] 04/02/2024 Lyn Lund Plan Of Treatment No Information Progress Notes * Reed MALLORY HDOB:1940 (83 yo M)Acc No.[id number]:04/02/2024 Patient:?Reed Mallory :1940???Age:83 Y???Sex:Male Address:[address] [place] [address] * true * Date:? Generated for Printi ng/Ilda/eTransmitting on:?06/23/2024 02:06 PM EST
--- OUTSIDE RECORDS SUMMARY | 2024-06-23 14:07 | XMS_ITS | Patient Health Record ---
Author Organization [facility] Address [address] [place] [address] Care Team Providers Care Lodging Facilities Attendant Name Role Phone Josue Simmons MD Primary Care Provider Lyn Aquino Unavailable [phone] Allergies Allergen (clinical drug ingredient) Drug/Non Drug Allergy documented on EMR Reaction Allergy Type Onset Date Status ciprofloxacin Cipro Unknown Drug Allergy Act kellee Levaquin Unknown Drug Allergy Active NOVOCAINE Unknown Drug Allergy Active Reason For Referral No Information Medications Medication SIG (Take, Route, Frequency, Duration) Notes Start Date End Date Status Omeprazole 20 MG 1 capsule Orally Onc e a day Unknown Nabumetone 750 MG as directed Orally q d pc for 30 Unknown Meloxicam 15 MG 1 tablet Orally Once a day for 30 Unknown Metoprolol Succinate Active Cephalexin Active Multivitamin Active Atenolol 50 MG 1 tablet Orally Once a day Unknown hydroCHLOROthiazide 25 MG 1 tablet Orall y Once a day Active Atorvastatin Calcium Active Aspirin Active Ezetimibe Active Social History Tobacco Use: Social History [...] Are you an other tobacco user? No Problems Problem Type SNOMED Code ICD Code Onset Dates Problem Status W/U Status Risk Notes Problem Localized, primary osteoarthritis of the ankle and/or foot ([id number]) Primary osteoarthrit is, right ankle and foot (M19.071) Active confirmed Encounters Encounter Location Date Provider Diagnosis [facility] [address] [place] [address] 03/09/2024 Lyn Lund [facility] [address] [facility] [place] [address] 03/12/2024 Lyn Lund [facility] [address] [place] [address] 04/02/2024 Lyn Lund Plan Of Treatment Pending Test Test Name Order Date X ray : Foot, right 3V 01/20/2015 X ray : Ankle, right 3V 03/04/2017 Insurance Providers Payer Name Payer Address Payer Phone Subscriber Number Group Number Insured Name Patient Relationship to Insured Coverage Start Date Coverage End Date Medicare National [employer] [address] [place] [address] [id number] Reed Mallory Self - patient is the insured [employer] [address] [place] [address] Reed Mallory Self - patient is the insured Medical (General) History Medical History History ICD Code Arthritis asthma Back,Hip,and Knee pain Heart attack High blood pressure Macular degeneration Stomach ulcer Thyroid disorder Measles Chicken pox Broken bones CAD (Cholesterol) Cataracts Headaches/Migraines Heart disease sinusitis Mumps Replacement Heart Valves Surgical History Surgery Date(Month/Year) appendectomy 194 thyroid 1960 kidney stones 1960 left ankle 01/14/24 aortic valve replacement 2021
== END 2024-06-16 14:04 | disposition home or self-care (01) ==
PROVIDERS: PCP Internal Medicine
DX: S82.62XA Displaced fracture of lateral malleolus of left fibula, initial encounter for closed fracture (principal)
CPT/HCPCS: 99213

== ENCOUNTER 2024-06-19 08:07 | Outpatient (REF) | payer OTHER, SELFPAY ==
--- NOTE | ~2024-06-19 | XR_ITS ---
EXAMINATION: XR ANKLE LEFT CLINICAL INFORMATION: Pain in left ankle and joints of left foot M25.572. COMPARISON: XR Left ankle 06/16/2024 TECHNIQUE: AP, lateral, and oblique views of the left ankle. FINDINGS: Postoperative changes including plate and screw fixation extending along the distal fibula and involving the medial malleolus with fracture not clearly visualized likely healed or at least partially healed with unchanged alignment. The talocrural joint space remains narrowed and which has gradually progressed compared to the presurgical x-ray 01/10/2024 Surrounding soft tissue swelling. XR/XR ankle LT min 3V IMPRESSION: 1. Postoperative changes. Distal fibular fracture likely healed or mostly healed with a fracture inconspicuous 2. Progressive joint space narrowing of the talocrural joint. Question posttraumatic osteolysis 3. Soft tissue swelling. 4. No change in alignment. Electronically signed by: Rogelio Arevalo MD 07/06/2024 07:45 AM PANDA
== END 2024-06-19 08:08 | disposition home or self-care (01) ==
LOC: HO.HOSX 08:07
DX: M25.572 Pain in left ankle and joints of left foot (principal); S82.62XA Displaced fracture of lateral malleolus of left fibula, initial encounter for closed fracture
CPT/HCPCS: 73610; 99212

== ENCOUNTER 2024-06-19 10:37 | Outpatient (AMB) | payer OTHER, SELFPAY ==
--- NOTE | 2024-06-19 10:56 | A.OFFVIS_ITS ---
Vital Signs 06/19/24 10:59 Height 5 ft 6 in Weight 193 lb BMI 31.1 Intake Visit Reasons: OV-Lt Ankle ORIF 01/21/24-follow up Intake Note: Reed is a 83 year old male who presents with his daughter today for a follow up visit s/p left ankle ORIF 01/21/24 w/ NE. Patient reports he feels no improvement in his symptoms. Reports a 7 or 8 out of 10 on pain scale. He says whenever he moves he has pain. Allergies niacin Allergy (Severe, Verified 06/19/24 10:59) Upset Stomach procaine [From Novocain] Allergy (Severe, Verified 06/19/24 10:59) I GET MEAN simvastatin Adverse Reaction (Severe, Verified 06/19/24 10:59) myopathy HPI HPI OV-Lt Ankle ORIF 01/21/24-follow up: Details: Patient is an 83-year-old male presents for follow-up evaluation status post left ankle ORIF, DOS 01/21/2024. Today, the patient reports that his pain and swelling have improved slightly since previous evaluation this week. Patient reports that his symptoms have otherwise remained the same. No other acute complaints or concerns at this time. [facility] Medical History Hyperlipidemia HTN (hypertension) CAD (coronary artery disease) Murmur, cardiac Chest pain COPD (chronic obstructive pulmonary disease) Asbestosis Surgical History S/P TAVR (transcatheter aortic valve replacement) Stented coronary artery Hx of cardiac catheterization Family History Father CAD (coronary artery disease) Mother No problems noted. Social History Patient Tobacco Use Status: Former Tobacco user Tobacco use type: Cigarette and Cigar Years Smoked: 14 years old Physical Exam Vital Signs: BMI result Body Mass Index 31.1 Extrem Other: On inspection, there is no deformity of the L ankle Incision sites are well healed No evidence of discharge There has been a to be some erythema on the lateral aspect of the patient's left ankle No ecchymosis Moderate to severe edema noted of the left ankle, slightly improved from visit earlier this week However, there is noted to be some evidence of early skin breakdown in the anterior part of the patient's left ankle, likely secondary to his swelling Patient reports mild tenderness to palpation about the left lateral malleolus Patient is able to plantar flex and dorsiflex the foot, however this is limited due to pain and swelling Distal sensation intact Capillary refill brisk Results Reviewed Results Reviewed: X-rays obtained in the office today and independently reviewed by me, Demetrius Contreras PA-C, demonstrate well-healing fracture of the left lateral malleolus with orthopedic hardware in place and in satisfactory clinical alignment. No evidence of re fracture, damage to orthopedic hardware, or other injury Assessment & Plan Assessment & Plan (1) Ankle fracture, lateral malleolus, closed: Code(s): S82.63XA - Displaced fracture of lateral malleolus of unspecified fibula, initial encounter for closed fracture Category: Medical Qualifiers: Encounter type: initial encounter Fracture alignment: displaced Laterality: left Qualified Code(s): S82.62XA - Displaced fracture of lateral malleolus of left fibula, initial encounter for closed fracture Plan 1. Lateral malleolus fracture of the left ankle status post ORIF DOS 01/21/2024 Patient was seen and evaluated with Dr. Candis langston, and a collaborative treatment plan was formed: At this time, patient is referred for stat ultrasound of the left lower extremity to assess for potential DVT Patient is also educated that he needs to have his ankle elevated consistently above heart level to allw the swelling to go down Patient is also provided with a Gerhard wrap and new walking boot to provide gentle compression to the leg while elevating to encourage decrease in swelling Patient was amenable to this plan Patient will follow-up in 2 weeks for reassessment, sooner with any acute concerns Orders: Orders XR ankle LT min 3V Today M25.572 - Pain in left ankle and joints of left foot US venous duplex LE LT Today R60.9 - Edema, unspecified Coding Level of Care Code Est Pt Level 3 (52367) Diagnoses Closed displaced fracture of lateral malleolus of left fibula, initial encounter S82.62XA Encounter type: initial encounter Fracture alignment: displaced Laterality: left
[2024-06-19 10:59] VITALS: BMI 31.1
--- OUTSIDE RECORDS SUMMARY | 2024-06-24 07:24 | XMS_ITS | Continuity of Care Document ---
Author Name [facility] Organization [facility] Care Team Providers Care Dance Hall Host/Hostess Name Role Phone [facility] Unavailable Unavailable Problems Combined list of problems from Department of Defense and Veterans Affairs facilities. It does not include entries that were removed or entered in error. Problem Status Onset Date Problem Type Date of Resolution Comments Source Chronic dermatitis Active 023 Condition Oct 05, 2022 Entered By: BYRON BARRON Comment: referred to dermatology [facility] Chest Pain (SCT 79550973) Active Condition Jan 02, 2022 Entered By: BYRON BARRON Comment: ordered stress test [facility] COPD - Chronic Obstructive Pulmonary Disease (SCT 23060852) Active Condition Dec 28, 2021 Entered By: BYRON BARRON Comment: on inhalers [facility] Cataract Active Condition Oct 12, 2020 Entered By: BYRON BARRON Comment: referred for surgery [facility] HTN - Hypertension (SCT [id number]) Active Condition Oct 21, 2020 Entered By: BYRON BARRON Comment: treated witn medication [facility] Hypercholesterolemia (SCT 00620300) Active Condition Oct 21, 2020 Entered By: [...] of uncertain behavior of skin Active Diagnosis [facility] Diagnosis: ICD-10-CM Z13.89 Encounter for screening for other disorder Active Diagnosis [facility] Diagnosis: ICD-10-CM R21 Rash and other nonspecific skin eruption Active Diagnosis [facility] Diagnosis: ICD-10-CM Z23 Encounter for immunization Active Diagnosis [facility] Diagnosis: ICD-10-CM H67.3 Otitis media in diseases classified elsewhere, bilateral Active Diagnosis [facility] [place] [facility] Medications Combined list of outpatient medications from [...] TWICE DAILY FOR INFECTIO N ORAL 11/15/2023 [id number] MAUREEN BARRON 2023 20 [facility] ASPIRIN 81MG TAB,CHEWABL E CHEW ONE TABLET BY MOUTH ONCE DAILY ORAL ACTIVE JANINE HAMMOND R 2021 [facility] ATORVASTATI N CA 80MG TAB TAKE ONE TABLET BY MOUTH ONCE DAILY FOR CHOLESTE ROL ORAL DISCONT INUED 03/07/2024 [id number] MAUREEN BARRON PAIGE D 2022 90 [facility] ATORVASTATI N CA 80MG TAB TAKE ONE TABLET BY MOUTH AT BEDTIME ORAL 06/19/2024 [id number] KENDALL,MOHAMUD AV 2022 90 [facility] CEPHALEXIN 500MG CAP TAKE ONE CAPSULE BY MOUTH EVERY 8 HOURS FOR INFECTIO N ORAL 04/04/2024 [id number] MAMTA STERN 2023 21 [facility] EZETIMIBE 10MG TAB TAKE ONE TABLET BY MOUTH ONCE DAILY TO LOWER CHOLESTE ROL ORAL 06/19/2024 [id number] KENDALLMOHAMUD AV 2022 90 [facility] FLUTICASONE 250MCG/SALM ETEROL 50MCG INHL,ORAL,D ISKUS,60 INHALE 1 PUFF BY MOUTH TWICE DAILY - RINSE MOUTH AFTER USE RESPIR ATORY (INHAL ATION) 03/07/2024 [id number] MAUREEN BARRON PAIGE D 2022 3 [facility] FLUTICASONE PROPIONATE 50MCG/SPRAY SOLN,NASAL, 16GM INSTILL 1 SPRAY INTO EACH NOSTRIL ONCE DAILY NEEDED FOR NASAL IRRITATI ON/INFLA MMATION NASAL 04/15/2024 [id number] MAUREEN BARRON PAIGE D 2022 1 [facility] HYDROCHLORO THIAZIDE 25MG TAB TAKE ONE TABLET BY MOUTH ONCE DAILY TO PREVENT FLUID/CO NTROL BLOOD PRESSURE ORAL DISCONT INUED 03/07/2024 [id number] MAUREEN BARRON PAIGE D 2022 90 [facility] HYDROCHLORO THIAZIDE 25MG TAB TAKE ONE TABLET BY MOUTH ONCE DAILY ORAL 06/19/2024 [id number] KENDALL,MOHAMUD AV 2023 90 [facility] METOPROLOL SUCCINATE 50MG TAB,SA TAKE ONE TABLET BY MOUTH ONCE DAILY FOR BLOOD PRESSURE /HEART ORAL 06/19/2024 [id number] 4 KENDALL,MOHAMUD AV 2022 90 [facility] TRIAMCINOLO NE ACETONIDE 0.1% CREAM,TOP APPLY A MODERATE AMOUNT TOPICALL Y TWICE DAILY NEEDED FOR ITCHING TOPICA L ACTIVE 10/24/2024 [id number] 4 BEATRICEMAUREEN PAIGE D 2023 [facility] Allergies, Adverse Reactions, Alerts Combined list of allergies from Department of Defense and Veterans Affairs facilities. It does not include entries that were removed or entered in error. Substance Category Reaction Severity Reaction type Status Date Reported Comments Source LIDOCAINE Propensity to adverse reactions to drug (finding) Itching MODERATE active 2 [facility] NOVOCAIN Propensity to adverse reactions to drug (finding) Feeling agitated active 8 [facility] PROCAINE Propensity to adverse reactions to drug (finding) active 2 [facility] Immunizations Combined list of available immunizations from the Department of Defense and Veterans Affairs facilities. Immunization Series Date Given Administered By Site Reaction Lot Number CVX Code Drug Meteorological Equipment Repairer Status Comments Source COVID-19 (MODERNA), MRNA, LNP-S, PF, 50 MCG/0.5 ML (AGES 12+ YEARS) 7 2023 ALMA MAHER LEFT DELTO ID [id number] 312 complet ed [facility] INFLUENZA, HIGH-DOSE, TRIVALENT, PF 2023 ALMA MAHER LEFT [place] ID [id number] 135 complet ed [facility] RSV, BIVALENT, PROTEIN SUBUNIT RSVPREF, DILUENT RECONSTITUTED , 0.5 ML, PF 1 2023 GRETCHEN ANDRADE E LEFT DELTO ID [id number] 305 complet ed [facility] COVID-19 (MODERNA), MRNA, LNP-S, PF, 50 MCG/0.5 ML (AGES 12+ YEARS) 1 2023 GRETCHEN ANDRADE E LEFT DELTO ID [id number] 312 complet ed [facility] INFLUENZA, HIGH-DOSE, QUADRIVALENT 2022 JERRI SHAIKH ER M LEFT DEL[place] ID [id number] 197 complet ed [facility] COVID-19 (MODERNA), MRNA, LNP-S, BIVALENT BOOSTER, PF, 50 MCG/0.5 ML OR 25MCG/0.25 ML DOSE 2021 JERRI SHAIKH ER M LEFT [place] ID [id number] 229 complet ed [facility] INFLUENZA VACCINE, QUADRIVALENT, ADJUVANTED 2021 205 complet ed [facility] COVID-19 (MODERNA), MRNA, LNP-S, PF, 100 MCG/0.5ML DOSE OR 50 MCG/0.25ML DOSE 3 2021 207 complet ed MOD; [id number] ; 2 [facility] PNEUMOCOCCAL CONJUGATE PCV20, POLYSACCHARID E [id number] CONJUGATE, ADJUVANT, PF 2021 216 complet ed [facility] COVID-19 (MODERNA), MRNA, LNP-S, PF, 100 MCG OR 50 MCG DOSE 3 2020 207 complet ed MOD; [id number]; 2 [facility] INFLUENZA, UNSPECIFIED FORMULATION 2020 88 complet ed [facility] TDAP 2020 115 complet ed [facility] COVID-19 (MODERNA), MRNA, LNP-S, PF, 100 MCG/0.5 ML DOSE 2 2020 207 complet ed MOD; [id number]; 1 [facility] COVID-19 (MODERNA), MRNA, LNP-S, PF, 100 MCG/0.5 ML DOSE 1 2020 207 complet ed MOD; [id number]; 1 [facility] [...] DOSE SEASONAL 2017 135 complet ed [facility]. Administe red by: ARLET BOLTON (RFR=[phone] [id number]). Partner 0 Lot#: [id number] Mfr: Fluent Homeofi Pasteur; Dosage: 0.5 [facility] PNEUMOCOCCAL POLYSACCHARID E PPV23 2016 33 complet ed Partner: [facility]. Administe red by: ARLET BOLTON (QTK=[phone]). Partner 0 Lot#: [id number] Mfr: Klip.in; Dosage: 0.5 [facility] INFLUENZA, HIGH DOSE SEASONAL 2016 135 complet ed Partner: [facility]. Administe red by: ARLET BOLTON (ABT=[phone]). Partner 0 Lot#: [id number] Mfr: Fluent Homeofi Pasteur; Dosage: 0.5 [facility] Results Combined list of recent chemistry, hematology and other laboratory results from Department of Defense and Veterans Affairs, ranging from 15 months to all on record, depending upon the facility. Order Name Results Value Reference Range Date Interpretation Specimen Comments Source BASIC METABOLI C PANEL (fasting ) UREA NITROGEN [MASS/VOLU ME] IN SERUM OR PLASMA 22 mg/dL 7 - 25 04/07 Specimen Type: SERUM No comment entered. Ordering Provider: JAMILA BARRON Report Released Date/Time: Apr 04, 2024 05:53 PM Reporting Lab: [facility]US[facility] [address] Performing Lab: [facility]USUSE[address] [address] [facility] BASIC METABOLI C PANEL (fasting ) GLUCOSE [MASS/VOLU ME] IN SERUM OR PLASMA 93 mg/dL 65 - 100 04/07 Specimen Type: SERUM No comment entered. Ordering Provider: JAMILA BARRON Report Released Date/Time: Apr 04, 2024 05:53 PM Reporting Lab: [facility]ITAL[facility]USUSE[address] [address] Performing Lab: [facility]USUSE[address] [address] [facility]ITALN [facility]USE [facility] BASIC METABOLI C PANEL (fasting ) SODIUM [MOLES/VOL UME] IN SERUM OR PLASMA 139 mmol/L 135 - 145 04/07 Specimen Type: SERUM No comment entered. Ordering Provider: JAMILA BARRON Report Released Date/Time: Apr 04, 2024 05:53 PM Reporting Lab: [facility]US[facility] [address] Performing Lab: [facility]USUSE[address] [address] [facility]ITALRTHOMAS HOSPITALN [facility] CAMPUSUSE [facility] BASIC METABOLI C PANEL (fasting ) POTASSIUM [MOLES/VOL UME] IN SERUM OR PLASMA 3.9 mmol/L 3.5 - 5.0 04/07 Specimen Type: SERUM No comment entered. Ordering Provider: JAMILA BARRON Report Released Date/Time: Apr 04, 2024 05:53 PM Reporting Lab: [facility] [place] [facility] [address] [facility] [address] Performing Lab: [facility] [place] [facility] [address] [facility] [address] [facility] W[facility] [place] [facility] BASIC METABOLI C PANEL (fasting ) CHLORIDE [MOLES/VOL UME] IN SERUM OR PLASMA 102 mmol/L 100 - 110 04/07 Specimen Type: SERUM No comment entered. Ordering Provider: JAMILA BARRON Report Released Date/Time: Apr 04, 2024 05:53 PM Reporting Lab: [facility] [place] [facility] [address] [facility] [address] Performing Lab: [facility]USUSETS [facility] [address] [facility] [address] [facility] WSTRN [facility]AMPUSUSE [facility] BASIC METABOLI C PANEL (fasting ) CARBON DIOXIDE, TOTAL [MOLES/VOL UME] IN SERUM OR PLASMA 26 meq/L 20 - 30 04/07 Specimen Type: SERUM No comment entered. Ordering Provider: JAMILA BARRON Report Released Date/Time: Apr 04, 2024 05:53 PM Reporting Lab: [facility] [place] [facility] [address] [facility] [address] Performing Lab: [place] [facility]USUSETS [facility] [address] [facility] [address] [facility] WSTRN [facility]USUSE [facility] BASIC METABOLI C PANEL (fasting ) CREATININE [MASS/VOLU ME] IN SERUM OR PLASMA 0.92 mg/dL 0.50 - 1.40 04/07 Specimen Type: SERUM No comment entered. Ordering Provider: JAMILA BARRON Report Released Date/Time: Apr 04, 2024 05:53 PM Reporting Lab: [facility] [place] [facility] [address] [facility] [address] Performing Lab: [place] [facility]AMPUSUSETS [facility] [address] [facility] [address] [facility]ITAL[facility] WSTRN MASSUSE [facility] BASIC METABOLI C PANEL (fasting ) GLOMERULAR FILTRATION RATE/1.73 SQ M.PREDICTE D [VOLUME RATE/AREA] IN SERUM, PLASMA OR BLOOD BY CREATININE -BASED FORMULA (CKD-EPI 2020) 82 mL/min 60 04/07 Specimen Type: SERUM No comment entered. Ordering Provider: JAMILA BARRON Report Released Date/Time: Apr 04, 2024 05:53 PM Reporting Lab: [facility] [place] [address] [address] Performing Lab: [facility] [place] [address] [address] [facility] [place] [facility] CBC AND DIFF (AUTO) LEUKOCYTES [#/VOLUME] IN BLOOD BY AUTOMATED COUNT 7.77 10*3/uL 4.50 - 11.00 04/07 Specimen Type: BLOOD No comment entered. Ordering Provider: JAMILA BARRON Report Released Date/Time: Apr 04, 2024 05:53 PM Reporting Lab: [facility] [place] [address] [address] Performing Lab: [facility] [place] [address] [address] [facility] [place] [facility] CBC AND DIFF (AUTO) ERYTHROCYT ES [#/VOLUME] IN BLOOD BY AUTOMATED COUNT 4.29 10*6/uL 4.23 - 5.66 04/07 Specimen Type: BLOOD No comment entered. Ordering Provider: JAMILA BARRON Report Released Date/Time: Apr 04, 2024 05:53 PM Reporting Lab: [facility] [place] [address] [address] Performing Lab: [place] [facility] [place] [address] [address] [facility] [place] [facility] CBC AND DIFF (AUTO) HEMOGLOBIN [MASS/VOLU ME] IN BLOOD 14.2 g/dL 12.8 - 17 04/07 Specimen Type: BLOOD No comment entered. Ordering Provider: JAMILA BARRON Report Released Date/Time: Apr 04, 2024 05:53 PM Reporting Lab: [facility] [place] [address] [address] Performing Lab: [facility] [place] [facility] [address] [facility] [address] [facility] [place] [facility] CBC AND DIFF (AUTO) HEMATOCRIT [VOLUME FRACTION] OF BLOOD BY AUTOMATED COUNT 41.1 39.2 - 50.4 04/07 Specimen Type: BLOOD No comment entered. Ordering Provider: JAMILA BARRON Report Released Date/Time: Apr 04, 2024 05:53 PM Reporting Lab: [facility] [place] [facility] [address] [facility] [address] Performing Lab: [facility] [place] [facility] [address] [facility] [address] [facility] [place] [facility] CBC AND DIFF (AUTO) MCV [ENTITIC VOLUME] BY AUTOMATED COUNT 95.8 fL 82 - 99 04/07 Specimen Type: BLOOD No comment entered. Ordering Provider: JAMILA BARRON Report Released Date/Time: Apr 04, 2024 05:53 PM Reporting Lab: [facility] [place] [facility] [address] [facility] [address] Performing Lab: [facility] [place] [address] [address] [facility] [place] [facility] CBC AND DIFF (AUTO) MCHC [MASS/VOLU ME] BY AUTOMATED COUNT 34.5 g/dL 30.8 - 35.1 04/07 Specimen Type: BLOOD No comment entered. Ordering Provider: JAMILA BARRON Report Released Date/Time: Apr 04, 2024 05:53 PM Reporting Lab: [facility] [place] [facility] [address] [facility] [address] Performing Lab: [facility] [place] [facility] [address] [facility] [address] [facility] [place] [facility] CBC AND DIFF (AUTO) PLATELETS [#/VOLUME] IN BLOOD BY AUTOMATED COUNT 184 10*3/uL 140 - 360 04/07 Specimen Type: BLOOD No comment entered. Ordering Provider: JAMILA BARRON Report Released Date/Time: Apr 04, 2024 05:53 PM Reporting Lab: [facility] [place] [address] [address] Performing Lab: [facility] [place] [facility] [address] [facility] [address] [facility] [place] [facility] CBC AND DIFF (AUTO) ERYTHROCYT E DISTRIBUTI ON WIDTH [RATIO] BY AUTOMATED COUNT 13.1 12.0 - 16.0 04/07 Specimen Type: BLOOD No comment entered. Ordering Provider: JAMILA BARRON Report Released Date/Time: Apr 04, 2024 05:53 PM Reporting Lab: [facility] [place] [facility] [address] [facility] [address] Performing Lab: [facility] [place] [facility] [address] [facility] [address] [facility] [place] [facility] CBC AND DIFF (AUTO) MONOCYTES [#/VOLUME] IN BLOOD BY AUTOMATED COUNT 0.98 10*3/uL 0.30 - 1.10 04/07 Specimen Type: BLOOD No comment entered. Ordering Provider: JAMILA BARRON Report Released Date/Time: Apr 04, 2024 05:53 PM Reporting Lab: [facility] [place] [facility] [address] [facility] [address] Performing Lab: [facility] [place] [facility] [address] [facility] [address] [facility] [place] [facility] CBC AND DIFF (AUTO) MCH [ENTITIC MASS] BY AUTOMATED COUNT 33.1 pg 26.2 - 32.6 04/07 H Specimen Type: BLOOD No comment entered. Ordering Provider: JAMILA BARRON Report Released Date/Time: Apr 04, 2024 05:53 PM Reporting Lab: [facility] [place] [facility] [address] [facility] [address] Performing Lab: [facility] [place] [address] [address] [facility] [place] [facility] CBC AND DIFF (AUTO) NEUTROPHIL S/100 LEUKOCYTES IN BLOOD BY AUTOMATED COUNT 52.3 43.7 - 75.8 04/07 Specimen Type: BLOOD No comment entered. Ordering Provider: JAMILA BARRON Report Released Date/Time: Apr 04, 2024 05:53 PM Reporting Lab: [facility] [place] [facility] [address] [facility] [address] Performing Lab: [facility] [place] [facility] [address] [facility] [address] [facility] [place] CBC AND DIFF (AUTO) LYMPHOCYTE S/100 LEUKOCYTES IN BLOOD BY AUTOMATED COUNT 31.7 14.0 - 42.3 04/07 Specimen Type: BLOOD No comment entered. Ordering Provider: JAMILA BARRON Report Released Date/Time: Apr 04, 2024 05:53 PM Reporting Lab: [facility] [place] [facility] [address] [facility] [address] Performing Lab: [facility] [place] [facility] [address] [facility] [address] [facility] [place] [facility] CBC AND DIFF (AUTO) MONOCYTES/ 100 LEUKOCYTES IN BLOOD BY AUTOMATED COUNT 12.6 5.1 - 13.7 04/07 Specimen Type: BLOOD No comment entered. Ordering Provider: JAMILA BARRON Report Released Date/Time: Apr 04, 2024 05:53 PM Reporting Lab: [facility] [place] [facility] [address] [facility] [address] Performing Lab: [facility] [place] [facility] [address] [facility] [address] [facility] [place] CBC AND DIFF (AUTO) EOSINOPHIL S/100 LEUKOCYTES IN BLOOD BY AUTOMATED COUNT 2.3 0.4 - 6.8 04/07 Specimen Type: BLOOD No comment entered. Ordering Provider: JAMILA BARRON Report Released Date/Time: Apr 04, 2024 05:53 PM Reporting Lab: [facility] [place] [facility] [address] [facility] [address] Performing Lab: [facility] [place] [facility] [address] [facility] [address] [facility] [place] CBC AND DIFF (AUTO) BASOPHILS/ 100 LEUKOCYTES IN BLOOD BY AUTOMATED COUNT 0.6 0.1 - 2.0 04/07 Specimen Type: BLOOD No comment entered. Ordering Provider: JAMILA BARRON Report Released Date/Time: Apr 04, 2024 05:53 PM Reporting Lab: [facility] [place] [facility] [address] [facility] [address] Performing Lab: [facility] [place] [facility] [address] [facility] [address] [facility] [place] [facility] CBC AND DIFF (AUTO) NEUTROPHIL S [#/VOLUME] IN BLOOD BY AUTOMATED COUNT 4.06 10*3/uL 2.20 - 7.60 04/07 Specimen Type: BLOOD No comment entered. Ordering Provider: JAMILA BARRON Report Released Date/Time: Apr 04, 2024 05:53 PM Reporting Lab: [facility] [place] [facility] [address] [facility] [address] Performing Lab: [facility] [place] [address] [address] [facility] [place] CBC AND DIFF (AUTO) LYMPHOCYTE S [#/VOLUME] IN BLOOD BY AUTOMATED COUNT 2.46 10*3/uL 1.00 - 3.20 04/07 Specimen Type: BLOOD No comment entered. Ordering Provider: JAMILA BARRON Report Released Date/Time: Apr 04, 2024 05:53 PM Reporting Lab: [facility] [place] [facility] [address] [facility] [address] Performing Lab: [facility] [place] [facility] [address] [facility] [address] [facility] [place] CBC AND DIFF (AUTO) EOSINOPHIL S [#/VOLUME] IN BLOOD BY AUTOMATED COUNT 0.18 10*3/uL 0.03 - 0.44 04/07 Specimen Type: BLOOD No comment entered. Ordering Provider: JAMILA BARRON Report Released Date/Time: Apr 04, 2024 05:53 PM Reporting Lab: [facility] [place] [facility] [address] [facility] [address] Performing Lab: [facility] [place] [facility] [address] [place] [address] [facility] [place] [facility] CBC AND DIFF (AUTO) BASOPHILS [#/VOLUME] IN BLOOD BY AUTOMATED COUNT 0.05 10*3/uL 0.01 - 0.13 04/07 Specimen Type: BLOOD No comment entered. Ordering Provider: JAMILA BARRON Report Released Date/Time: Apr 04, 2024 05:53 PM Reporting Lab: [facility] [place] [address] [address] Performing Lab: [facility] [place] [address] [address] [facility] [place] CBC AND DIFF (AUTO) IMMATURE GRANULOCYT ES/100 LEUKOCYTES IN BLOOD BY AUTOMATED COUNT 0.5 0.0 - 0.7 04/07 Specimen Type: BLOOD No comment entered. Ordering Provider: JAMILA BARRON Report Released Date/Time: Apr 04, 2024 05:53 PM Reporting Lab: [facility] [place] [address] [address] Performing Lab: [facility] [place] [address] [address] [facility] [place] [facility] CBC AND DIFF (AUTO) IMMATURE GRANULOCYT ES [#/VOLUME] IN BLOOD 0.04 10*3/uL 0.00 - 0.06 04/07 Specimen Type: BLOOD No comment entered. Ordering Provider: JAMILA BARRON Report Released Date/Time: Apr 04, 2024 05:53 PM Reporting Lab: [facility] [place] [address] [address] Performing Lab: [facility] [place] [address] [address] [facility] [place] [facility] CBC AND DIFF (AUTO) NRBC % 0.0 0.0 - 0.0 04/07 Specimen Type: BLOOD No comment entered. Ordering Provider: JAMILA BARRON Report Released Date/Time: Apr 04, 2024 05:53 PM Reporting Lab: [facility] [place] [address] [address] Performing Lab: [facility] [place] [facility] [address] [facility] [address] [facility] [place] [facility] CBC AND DIFF (AUTO) NRBC, ABS 0.00 10*3/uL 0.00 - 0.00 04/07 Specimen Type: BLOOD No comment entered. Ordering Provider: JAMILA BARRON Report Released Date/Time: Apr 04, 2024 05:53 PM Reporting Lab: [facility] [place] [facility] [address] [facility] [address] Performing Lab: [facility] [place] [facility] [address] [facility] [address] [facility] [facility] LIPID PANEL FASTING CHOLESTERO L [MASS/VOLU ME] IN SERUM OR PLASMA 139 mg/dL 04/07 Specimen Type: SERUM No comment entered. Ordering Provider: JAMILA BARRON Report Released Date/Time: Apr 04, 2024 05:53 PM Reporting Lab: [facility] [place] [facility] [address] [facility] [address] Performing Lab: [facility] [place] [address] [address] [facility] [place] [facility] LIPID PANEL FASTING TRIGLYCERI DE [MASS/VOLU ME] IN SERUM OR PLASMA 136 mg/dL 0 - 150 04/07 Specimen Type: SERUM No comment entered. Ordering Provider: JAMILA BARRON Report Released Date/Time: Apr 04, 2024 05:53 PM Reporting Lab: [facility] [place] [facility] [address] [facility] [address] Performing Lab: [facility] [place] [address] [address] [facility] [place] [facility] LIPID PANEL FASTING CHOLESTERO L IN LDL [MASS/VOLU ME] IN SERUM OR PLASMA BY CALCULATIO N 72 mg/dL 0 - 129 04/07 Specimen Type: SERUM No comment entered. Ordering Provider: JAMILA BARRON Report Released Date/Time: Apr 04, 2024 05:53 PM Reporting Lab: [facility] [place] [place] [address] [place] [address] Performing Lab: [facility] [place] [facility] [address] [facility] [address] [facility] [place] [facility] LIPID PANEL FASTING CHOLESTERO L.TOTAL/CH OLESTEROL IN HDL [MASS RATIO] IN SERUM OR PLASMA 3.5 04/07 Specimen Type: SERUM No comment entered. Ordering Provider: JAMILA BARRON Report Released Date/Time: Apr 04, 2024 05:53 PM Reporting Lab: [facility] [place] [facility] [address] [facility] [address] Performing Lab: [facility] [place] [facility] [address] [facility] [address] [facility] [place] [facility] LIPID PANEL FASTING CHOLESTERO L IN HDL [MASS/VOLU ME] IN SERUM OR PLASMA 40 mg/dL 40 - 60 04/07 Specimen Type: SERUM No comment entered. Ordering Provider: JAMILA BARRON Report Released Date/Time: Apr 04, 2024 05:53 PM Reporting Lab: [facility] [place] [facility] [address] [facility] [address] Performing Lab: [facility] [place] [facility] [address] [facility] [address] [facility] [place] [facility] LIVER FUNCTION PROTEIN [MASS/VOLU ME] IN SERUM OR PLASMA 6.8 g/dL 6.0 - 8.3 04/07 Specimen Type: SERUM No comment entered. Ordering Provider: JAMILA BARRON Report Released Date/Time: Apr 04, 2024 05:53 PM Reporting Lab: [facility] [place] [facility] [address] [facility] [address] Performing Lab: [facility] [place] [facility] [address] [facility] [address] [facility] [place] [facility] LIVER FUNCTION ALBUMIN [MASS/VOLU ME] IN SERUM OR PLASMA 4.0 g/dL 3.5 - 5.0 04/07 Specimen Type: SERUM No comment entered. Ordering Provider: JAMILA BARRON Report Released Date/Time: Apr 04, 2024 05:53 PM Reporting Lab: [facility] [place] [facility] [address] [facility] [address] Performing Lab: [facility] [place] [facility] [address] [facility] [address] [facility] [place] [facility] LIVER FUNCTION ALKALINE PHOSPHATAS E [ENZYMATIC ACTIVITY/V OLUME] IN SERUM OR PLASMA 118 U/L 40 - 150 04/07 Specimen Type: SERUM No comment entered. Ordering Provider: JAMILA BARRON Report Released Date/Time: Apr 04, 2024 05:53 PM Reporting Lab: [facility] [place] [facility] [address] [facility] [address] Performing Lab: [facility] [place] [facility] [address] [facility] [address] [facility] [place] [facility] LIVER FUNCTION ASPARTATE AMINOTRANS FERASE [ENZYMATIC ACTIVITY/V OLUME] IN SERUM OR PLASMA 30 U/L 5 - 34 04/07 Specimen Type: SERUM No comment entered. Ordering Provider: JAMILA BARRON Report Released Date/Time: Apr 04, 2024 05:53 PM Reporting Lab: [facility] [place] [facility] [address] [facility] [address] Performing Lab: [facility] [place] [facility] [address] [facility] [address] [facility] [place] [facility] LIVER FUNCTION ALANINE AMINOTRANS FERASE [ENZYMATIC ACTIVITY/V OLUME] IN SERUM OR PLASMA 23 U/L 04/07 Specimen Type: SERUM No comment entered. Ordering Provider: JAMILA BARRON Report Released Date/Time: Apr 04, 2024 05:53 PM Reporting Lab: [facility] [place] [facility] [address] [facility] [address] Performing Lab: [facility] [place] [facility] [address] [facility] [address] [facility] [place] [facility] LIVER FUNCTION BILIRUBIN. TOTAL [MASS/VOLU ME] IN SERUM OR PLASMA 1.0 mg/dL 0.2 - 1.2 04/07 Specimen Type: SERUM No comment entered. Ordering Provider: JAMILA BARRON Report Released Date/Time: Apr 04, 2024 05:53 PM Reporting Lab: [facility] [place] [facility] [address] [facility] [address] Performing Lab: [facility] [place] [facility] [address] [facility] [address] [facility] [place] [facility] TSH THYROTROPI N [UNITS/VOL UME] IN SERUM OR PLASMA 2.34 u[IU]/mL 0.35 - 5.00 04/07 Specimen Type: SERUM No comment entered. Ordering Provider: JAMILA BARRON Report Released Date/Time: Apr 04, 2024 05:53 PM Reporting Lab: [facility] [place] [address] [address] Performing Lab: [facility] [place] [address] [address] [facility] [place] [facility] URINALYS IS CLEAN CATCH COLOR OF URINE Yellow 04/07 Specimen Type: URINE Comment: If Glucose = >500 and Ketones are positive, please alert the Physician. Ordering Provider: JAMILA BARRON Report Released Date/Time: Apr 04, 2024 05:53 PM Reporting Lab: [facility] [place] [address] [address] Performing Lab: [facility] [place] [address] [address] [facility] [facility] URINALYS IS CLEAN CATCH APPEARANCE OF URINE Clear 04/07 Specimen Type: URINE Comment: If Glucose = >500 and Ketones are positive, please alert the Physician. Ordering Provider: JAMILA BARRON Report Released Date/Time: Apr 04, 2024 05:53 PM Reporting Lab: [facility] [place] [facility] [address] [facility] [address] Performing Lab: [facility] [place] [address] [address] [facility] [facility] URINALYS IS CLEAN CATCH GLUCOSE [MASS/VOLU ME] IN URINE Normalmg /dL 04/07 Specimen Type: URINE Comment: If Glucose = >500 and Ketones are positive, please alert the Physician. Ordering Provider: JAMILA BARRON Report Released Date/Time: Apr 04, 2024 05:53 PM Reporting Lab: [facility] [place] [address] [address] Performing Lab: [place] [facility] [address] [address] [facility] [place] [facility] URINALYS IS CLEAN CATCH KETONES [MASS/VOLU ME] IN URINE BY TEST STRIP NEGATIVE mg/dL 04/07 Specimen Type: URINE Comment: If Glucose = >500 and Ketones are positive, please alert the Physician. Ordering Provider: JAMILA BARRON Report Released Date/Time: Apr 04, 2024 05:53 PM Reporting Lab: [facility] [place] [facility]USUSETS [address] [address] Performing Lab: [facility]N [place] [address] [address] [facility] [place] [facility] URINALYS IS CLEAN CATCH ERYTHROCYT ES [PRESENCE] IN URINE SEDIMENT BY LIGHT MICROSCOPY NEGATIVE mg/dL 04/07 Specimen Type: URINE Comment: If Glucose = >500 and Ketones are positive, please alert the Physician. Ordering Provider: JAMILA BARRON Report Released Date/Time: Apr 04, 2024 05:53 PM Reporting Lab: [facility] [place] [address] [address] Performing Lab: [place] [facility] [address] [address] [facility] [place] [facility] URINALYS IS CLEAN CATCH PROTEIN [MASS/VOLU ME] IN URINE BY TEST STRIP 10 mg/dL 04/07 Specimen Type: URINE Comment: If Glucose = >500 and Ketones are positive, please alert the Physician. Ordering Provider: JAMILA BARRON Report Released Date/Time: Apr 04, 2024 05:53 PM Reporting Lab: [place] [facility] [address] [address] Performing Lab: [place] [facility] [facility] [address] [facility] [address] [facility] [place] [facility] URINALYS IS CLEAN CATCH NITRITE [PRESENCE] IN URINE NEGATIVE mg/dL 04/07 Specimen Type: URINE Comment: If Glucose = >500 and Ketones are positive, please alert the Physician. Ordering Provider: JAMILA BARRON Report Released Date/Time: Apr 04, 2024 05:53 PM Reporting Lab: [place] [facility] [address] [address] Performing Lab: [place] [facility] [address] [address] [facility] [place] [facility] URINALYS IS CLEAN CATCH BILIRUBIN. TOTAL [PRESENCE] IN URINE NEGATIVE mg/dL 04/07 Specimen Type: URINE Comment: If Glucose = >500 and Ketones are positive, please alert the Physician. Ordering Provider: JAMILA BARRON Report Released Date/Time: Apr 04, 2024 05:53 PM Reporting Lab: [place] [facility] [address] [address] Performing Lab: [place] [facility] [address] [address] [facility] [place] [facility] URINALYS IS CLEAN CATCH SPECIFIC GRAVITY OF URINE BY REFRACTOME TRY 1.024 1.016 - 1.022 04/07 H Specimen Type: URINE Comment: If Glucose = >500 and Ketones are positive, please alert the Physician. Ordering Provider: JAMILA BARRON Report Released Date/Time: Apr 04, 2024 05:53 PM Reporting Lab: [place] [facility] [address] [address] Performing Lab: [place] [facility] [address] [address] [place] [facility] [place] [facility] URINALYS IS CLEAN CATCH PH OF URINE BY TEST STRIP 7.0 5.0 - 9.0 04/07 Specimen Type: URINE Comment: If Glucose = >500 and Ketones are positive, please alert the Physician. Ordering Provider: JAMILA BARRON Report Released Date/Time: Apr 04, 2024 05:53 PM Reporting Lab: [facility] [place] [facility] [address] [facility] [address] Performing Lab: [facility] [place] [facility] [address] [facility] [address] [facility] [place] [facility] URINALYS IS CLEAN CATCH UROBILINOG EN [MASS/VOLU ME] IN URINE BY TEST STRIP Normalmg /dL <2.0 - 2.0 04/07 Specimen Type: URINE Comment: If Glucose = >500 and Ketones are positive, please alert the Physician. Ordering Provider: JAMILA BARRON Report Released Date/Time: Apr 04, 2024 05:53 PM Reporting Lab: [facility] [place] [address] Performing Lab: [facility] [place] [facility]USUSETS [address] [address] [facility]ITALN [facility] [place] [facility] URINALYS IS CLEAN CATCH LEUKOCYTE ESTERASE [PRESENCE] IN URINE BY TEST STRIP NEGATIVE 04/07 Specimen Type: URINE Comment: If Glucose = >500 and Ketones are positive, please alert the Physician. Ordering Provider: JAMILA BARRON Report Released Date/Time: Apr 04, 2024 05:53 PM Reporting Lab: [facility] [place] [facility] CAMPUSUSETS [address] [address] Performing Lab: [facility] [place]N [place] [address] [address] [facility] [place] [facility] BASIC METABOLI C PANEL (fasting ) UREA NITROGEN [MASS/VOLU ME] IN SERUM OR PLASMA 16 mg/dL 7 - 10/07 Specimen Type: SERUM No comment entered. Ordering Provider: JAMILA BARRON Report Released Date/Time: Oct 05, 2023 11:58 PM Reporting Lab: [facility] [place] [facility] CAMPUSUSE[address] [address] Performing Lab: [facility]ITALRTHOMAS HOSPITALN [facility] CAMPUSUSE[address] [address] [facility] [place] [facility] BASIC METABOLI C PANEL (fasting ) GLUCOSE [MASS/VOLU ME] IN SERUM OR PLASMA 102 mg/dL 65 - 100 10/07 H Specimen Type: SERUM No comment entered. Ordering Provider: JAMILA BARRON Report Released Date/Time: Oct 05, 2023 11:58 PM Reporting Lab: [facility] [place] [facility] [address] [facility] [address] Performing Lab: [place] [facility] [facility] [address] [facility] [address] [facility] [place] [facility] BASIC METABOLI C PANEL (fasting ) SODIUM [MOLES/VOL UME] IN SERUM OR PLASMA 143 mmol/L 135 - 145 10/07 Specimen Type: SERUM No comment entered. Ordering Provider: JAMILA BARRON Report Released Date/Time: Oct 05, 2023 11:58 PM Reporting Lab: [facility] [place] [address] [address] Performing Lab: [place] [address] [address] [facility] [place] [facility] BASIC METABOLI C PANEL (fasting ) POTASSIUM [MOLES/VOL UME] IN SERUM OR PLASMA 4.4 mmol/L 3.5 - 5.0 10/07 Specimen Type: SERUM No comment entered. Ordering Provider: JAMILA BARRON Report Released Date/Time: Oct 05, 2023 11:58 PM Reporting Lab: [place] [facility] [facility] [address] [facility] [address] Performing Lab: [place] [facility] [place] [facility] [address] [facility] [address] [place] [facility] [place] [facility] BASIC METABOLI C PANEL (fasting ) CHLORIDE [MOLES/VOL UME] IN SERUM OR PLASMA 106 mmol/L 100 - 110 10/07 Specimen Type: SERUM No comment entered. Ordering Provider: JAMILA BARRON Report Released Date/Time: Oct 05, 2023 11:58 PM Reporting Lab: [place] [facility] [facility] [address] [facility] [address] Performing Lab: [place] [facility] [facility] [address] [facility] [address] [facility] [place] [facility] BASIC METABOLI C PANEL (fasting ) CARBON DIOXIDE, TOTAL [MOLES/VOL UME] IN SERUM OR PLASMA 26 meq/L 20 - 30 10/07 Specimen Type: SERUM No comment entered. Ordering Provider: JAMILA BARRON Report Released Date/Time: Oct 05, 2023 11:58 PM Reporting Lab: [place] [facility] [facility] [address] [facility] [address] Performing Lab: [place] [facility] [facility] [address] [facility] [address] [facility] [place] [facility] BASIC METABOLI C PANEL (fasting ) CREATININE [MASS/VOLU ME] IN SERUM OR PLASMA 1.01 mg/dL 0.50 - 1.40 10/07 Specimen Type: SERUM No comment entered. Ordering Provider: JAMILA BARRON Report Released Date/Time: Oct 05, 2023 11:58 PM Reporting Lab: [facility] [place] [address] [address] Performing Lab: [place] [address] [address] [facility] CAMPUSUSE [facility] BASIC METABOLI C PANEL (fasting ) GLOMERULAR FILTRATION RATE/1.73 SQ M.PREDICTE D [VOLUME RATE/AREA] IN SERUM, PLASMA OR BLOOD BY CREATININE -BASED FORMULA (CKD-EPI 2020) 73 mL/min 60 10/07 Specimen Type: SERUM No comment entered. Ordering Provider: JAMILA BARRON Report Released Date/Time: Oct 05, 2023 11:58 PM Reporting Lab: [place] [facility] [facility] [address] [facility] [address] Performing Lab: [place] [facility] [address] [address] [facility] [place] [facility] CBC AND DIFF (AUTO) LEUKOCYTES [#/VOLUME] IN BLOOD BY AUTOMATED COUNT 7.99 10*3/uL 4.50 - 11.00 10/07 Specimen Type: BLOOD No comment entered. Ordering Provider: JAMILA BARRON Report Released Date/Time: Oct 05, 2023 11:58 PM Reporting Lab: [facility] [place] [facility] [address] [facility] [address] Performing Lab: [place] [facility] [facility] [address] [facility] [address] [facility] [place] [facility] CBC AND DIFF (AUTO) ERYTHROCYT ES [#/VOLUME] IN BLOOD BY AUTOMATED COUNT 4.47 10*6/uL 4.23 - 5.66 10/07 Specimen Type: BLOOD No comment entered. Ordering Provider: JAMILA BARRON Report Released Date/Time: Oct 05, 2023 11:58 PM Reporting Lab: [place] [facility] [address] [address] Performing Lab: [place] [facility] [facility] [address] [facility] [address] [place] [facility] [place] [facility] CBC AND DIFF (AUTO) HEMOGLOBIN [MASS/VOLU ME] IN BLOOD 14.6 g/dL 12.8 - 17 10/07 Specimen Type: BLOOD No comment entered. Ordering Provider: JAMILA BARRON Report Released Date/Time: Oct 05, 2023 11:58 PM Reporting Lab: [place] [address] [address] Performing Lab: [place] [facility] [facility] [address] [facility] [address] [place] [facility] [place] [facility] CBC AND DIFF (AUTO) HEMATOCRIT [VOLUME FRACTION] OF BLOOD BY AUTOMATED COUNT 42.7 39.2 - 50.4 10/07 Specimen Type: BLOOD No comment entered. Ordering Provider: JAMILA BARRON Report Released Date/Time: Oct 05, 2023 11:58 PM Reporting Lab: [place] [facility] [facility] [address] [facility] [address] Performing Lab: [place] [facility] [address] [address] [facility] [place] [facility] CBC AND DIFF (AUTO) MCV [ENTITIC VOLUME] BY AUTOMATED COUNT 95.5 fL 82 - 99 10/07 Specimen Type: BLOOD No comment entered. Ordering Provider: JAMILA BARRON Report Released Date/Time: Oct 05, 2023 11:58 PM Reporting Lab: [place] [facility] [facility] [address] [facility] [address] Performing Lab: [place] [facility] [facility] [address] [facility] [address] [facility] [place] [facility] CBC AND DIFF (AUTO) MCHC [MASS/VOLU ME] BY AUTOMATED COUNT 34.2 g/dL 30.8 - 35.1 10/07 Specimen Type: BLOOD No comment entered. Ordering Provider: JAMILA BARRON Report Released Date/Time: Oct 05, 2023 11:58 PM Reporting Lab: [facility] [place] [address] [address] Performing Lab: [place] [facility] [address] [address] [facility] [place] [facility] CBC AND DIFF (AUTO) PLATELETS [#/VOLUME] IN BLOOD BY AUTOMATED COUNT 126 10*3/uL 140 - 360 10/07 L Specimen Type: BLOOD No comment entered. Ordering Provider: JAMILA BARRON Report Released Date/Time: Oct 05, 2023 11:58 PM Reporting Lab: [facility] [place] [address] [address] Performing Lab: [place] [facility] [facility] [address] [facility] [address] [facility] [place] [facility] CBC AND DIFF (AUTO) ERYTHROCYT E DISTRIBUTI ON WIDTH [RATIO] BY AUTOMATED COUNT 12.9 12.0 - 16.0 10/07 Specimen Type: BLOOD No comment entered. Ordering Provider: JAMILA BARRON Report Released Date/Time: Oct 05, 2023 11:58 PM Reporting Lab: [place] [facility] [address] [address] Performing Lab: [facility] [place] [facility] [address] [facility] [address] [facility] [place] [facility] CBC AND DIFF (AUTO) MONOCYTES [#/VOLUME] IN BLOOD BY AUTOMATED COUNT 0.79 10*3/uL 0.30 - 1.10 10/07 Specimen Type: BLOOD No comment entered. Ordering Provider: AJMILA BARRON Report Released Date/Time: Oct 05, 2023 11:58 PM Reporting Lab: [facility] [place] [facility] [address] [facility] [address] Performing Lab: [place] [facility] [facility] [address] [facility] [address] [facility] [place] [facility] CBC AND DIFF (AUTO) MCH [ENTITIC MASS] BY AUTOMATED COUNT 32.7 pg 26.2 - 32.6 10/07 H Specimen Type: BLOOD No comment entered. Ordering Provider: JAMILA BARRON Report Released Date/Time: Oct 05, 2023 11:58 PM Reporting Lab: [facility] [place] [facility] [address] [facility] [address] Performing Lab: [facility] [place] [facility] [address] [facility] [address] [facility] [place] [facility] CBC AND DIFF (AUTO) NEUTROPHIL S/100 LEUKOCYTES IN BLOOD BY AUTOMATED COUNT 54.5 43.7 - 75.8 10/07 Specimen Type: BLOOD No comment entered. Ordering Provider: JAMILA BARRON Report Released Date/Time: Oct 05, 2023 11:58 PM Reporting Lab: [facility] [place] [facility] [address] [facility] [address] Performing Lab: [facility] [place] [facility] [address] [facility] [address] [facility] [place] [facility] CBC AND DIFF (AUTO) LYMPHOCYTE S/100 LEUKOCYTES IN BLOOD BY AUTOMATED COUNT 33.3 14.0 - 42.3 10/07 Specimen Type: BLOOD No comment entered. Ordering Provider: JAMILA BARRON Report Released Date/Time: Oct 05, 2023 11:58 PM Reporting Lab: [facility] [place] [facility] [address] [facility] [address] Performing Lab: [facility] [place] [facility] [address] [facility] [address] [facility] [place] [facility] CBC AND DIFF (AUTO) MONOCYTES/ 100 LEUKOCYTES IN BLOOD BY AUTOMATED COUNT 9.9 5.1 - 13.7 10/07 Specimen Type: BLOOD No comment entered. Ordering Provider: JAMILA BARRON Report Released Date/Time: Oct 05, 2023 11:58 PM Reporting Lab: [facility] [place] [facility] [address] [facility] [address] Performing Lab: [facility] [place] [facility] [address] [facility] [address] [facility] [place] [facility] CBC AND DIFF (AUTO) EOSINOPHIL S/100 LEUKOCYTES IN BLOOD BY AUTOMATED COUNT 1.4 0.4 - 6.8 10/07 Specimen Type: BLOOD No comment entered. Ordering Provider: JAMILA BARRON Report Released Date/Time: Oct 05, 2023 11:58 PM Reporting Lab: [facility] [place] [facility] [address] [facility] [address] Performing Lab: [facility] [place] [facility] [address] [facility] [address] [facility] [place] [facility] CBC AND DIFF (AUTO) BASOPHILS/ 100 LEUKOCYTES IN BLOOD BY AUTOMATED COUNT 0.6 0.1 - 2.0 10/07 Specimen Type: BLOOD No comment entered. Ordering Provider: JAMILA BARRON Report Released Date/Time: Oct 05, 2023 11:58 PM Reporting Lab: [facility] [place] [facility] [address] [facility] [address] Performing Lab: [facility] [place] [facility] [address] [facility] [address] [facility] CBC AND DIFF (AUTO) NEUTROPHIL S [#/VOLUME] IN BLOOD BY AUTOMATED COUNT 4.36 10*3/uL 2.20 - 7.60 10/07 Specimen Type: BLOOD No comment entered. Ordering Provider: JAMILA BARRON Report Released Date/Time: Oct 05, 2023 11:58 PM Reporting Lab: [facility] [address] [facility] [address] Performing Lab: [facility] [address] [facility] [address] [facility] CBC AND DIFF (AUTO) LYMPHOCYTE S [#/VOLUME] IN BLOOD BY AUTOMATED COUNT 2.66 10*3/uL 1.00 - 3.20 10/07 Specimen Type: BLOOD No comment entered. Ordering Provider: JAMILA BARRON Report Released Date/Time: Oct 05, 2023 11:58 PM Reporting Lab: [facility] [address] [facility] [address] Performing Lab: [facility] [facility] [address] [facility] [address] [facility] CBC AND DIFF (AUTO) EOSINOPHIL S [#/VOLUME] IN BLOOD BY AUTOMATED COUNT 0.11 10*3/uL 0.03 - 0.44 10/07 Specimen Type: BLOOD No comment entered. Ordering Provider: JAMILA BARRON Report Released Date/Time: Oct 05, 2023 11:58 PM Reporting Lab: [facility] [address] [facility] [address] Performing Lab: [facility] [address] [place] [address] [facility] CBC AND DIFF (AUTO) BASOPHILS [#/VOLUME] IN BLOOD BY AUTOMATED COUNT 0.05 10*3/uL 0.01 - 0.13 10/07 Specimen Type: BLOOD No comment entered. Ordering Provider: JAMILA BARRON Report Released Date/Time: Oct 05, 2023 11:58 PM Reporting Lab: [facility] [address] [facility] [address] Performing Lab: [facility] [address] [place] [address] [facility] CBC AND DIFF (AUTO) IMMATURE GRANULOCYT ES/100 LEUKOCYTES IN BLOOD BY AUTOMATED COUNT 0.3 0.0 - 0.7 10/07 Specimen Type: BLOOD No comment entered. Ordering Provider: JAMILA BARRON Report Released Date/Time: Oct 05, 2023 11:58 PM Reporting Lab: [facility] [address] [address] Performing Lab: [facility] [place] [facility] [address] [facility] [address] [facility] CBC AND DIFF (AUTO) IMMATURE GRANULOCYT ES [#/VOLUME] IN BLOOD 0.02 10*3/uL 0.00 - 0.06 10/07 Specimen Type: BLOOD No comment entered. Ordering Provider: JAMILA BARRON Report Released Date/Time: Oct 05, 2023 11:58 PM Reporting Lab: [facility] [place] [address] [address] Performing Lab: [facility] [place] [address] [address] [facility] LIVER FUNCTION PROTEIN [MASS/VOLU ME] IN SERUM OR PLASMA 6.6 g/dL 6.0 - 8.3 10/07 Specimen Type: SERUM No comment entered. Ordering Provider: JAMILA BARRON Report Released Date/Time: Oct 05, 2023 11:58 PM Reporting Lab: [facility] [place] [address] [address] Performing Lab: [facility] [place] [facility] [address] [facility] [address] [facility] LIVER FUNCTION ALBUMIN [MASS/VOLU ME] IN SERUM OR PLASMA 3.8 g/dL 3.5 - 5.0 10/07 Specimen Type: SERUM No comment entered. Ordering Provider: JAMILA BARRON Report Released Date/Time: Oct 05, 2023 11:58 PM Reporting Lab: [facility] [place] [address] [address] Performing Lab: [facility] [place] [facility] [address] [facility] [address] [facility] LIVER FUNCTION ALKALINE PHOSPHATAS E [ENZYMATIC ACTIVITY/V OLUME] IN SERUM OR PLASMA 103 U/L 40 - 150 10/07 Specimen Type: SERUM No comment entered. Ordering Provider: JAMILA BARRON Report Released Date/Time: Oct 05, 2023 11:58 PM Reporting Lab: [facility] [place] [facility] [address] [facility] [address] Performing Lab: [facility] [place] [facility] [address] [facility] [address] [facility] LIVER FUNCTION ASPARTATE AMINOTRANS FERASE [ENZYMATIC ACTIVITY/V OLUME] IN SERUM OR PLASMA 33 U/L 5 - 34 10/07 Specimen Type: SERUM No comment entered. Ordering Provider: JAMILA BARRON Report Released Date/Time: Oct 05, 2023 11:58 PM Reporting Lab: [facility] [place] [facility] [address] [facility] [address] Performing Lab: [facility] [place] [facility] [address] [facility] [address] [facility] LIVER FUNCTION ALANINE AMINOTRANS FERASE [ENZYMATIC ACTIVITY/V OLUME] IN SERUM OR PLASMA 29 U/L 10/07 Specimen Type: SERUM No comment entered. Ordering Provider: JAMILA BARRON Report Released Date/Time: Oct 05, 2023 11:58 PM Reporting Lab: [facility] [place] [facility] [address] [facility] [address] Performing Lab: [facility] [place] [facility] [address] [facility] [address] [facility] LIVER FUNCTION BILIRUBIN. TOTAL [MASS/VOLU ME] IN SERUM OR PLASMA 0.7 mg/dL 0.2 - 1.2 10/07 Specimen Type: SERUM No comment entered. Ordering Provider: JAMILA BARRON Report Released Date/Time: Oct 05, 2023 11:58 PM Reporting Lab: [facility] [place] [facility] [address] [facility] [address] Performing Lab: [facility] [address] [facility] [address] [facility] TSH THYROTROPI N [UNITS/VOL UME] IN SERUM OR PLASMA 2.46 u[IU]/mL 0.35 - 5.00 10/07 Specimen Type: SERUM No comment entered. Ordering Provider: JAMILA BARRON Report Released Date/Time: Oct 05, 2023 11:58 PM Reporting Lab: [facility] [address] [facility] [address] Performing Lab: [facility] [address] [facility] [address] [facility] Vital [...] months. 2) Encounters from the Department of [facility] facilities going back up to 280 months. 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
RANCHO RODRIGUEZ 04/30 [facility] En[facility] [id number] 06/14 [facility] Encounter [id number] 06/16 [facility] Encounter [id number] 06/19 [facility] Encounter [id number] 06/27 [facility] Outpatient Encounter [id number] 10/08 [facility] OFFICE O/P EST LOW 20 MIN [id number] Diagnos is: ICD-10- CM H67.3 Otitis media in disease s classif ied elsewhe re, bilater al
RICO BARRON RD D 10/15 [facility] OFF/OP EST MAY X REQ PHY/QHP [id number] Diagnos is: ICD-10- CM Z23 Encount er for immuniz ation<b r/> RICO BARRON RD D 10/15 [facility] UNLISTED SPEC DERM SVC/PX [id number] Diagnos is: ICD-10- CM Z13.89 Encount er for screeni ng for other disorde r
GORDON BEAUCHAMP ICA A 10/23 [facility] OFFICE O/P EST SF 10 MIN [id number] Diagnos is: ICD-10- CM R21 Rash and other nonspec ific skin eruptio n
WILEY PASTOR PH J 10/23 [facility] Out[facility] Encounter [id number] 10/23 [facility] Out[facility] Encounter [id number] 10/23 [facility] Out[facility] Encounter [id number] 11/20 [facility] Out[facility] Encounter [id number] 11/24 [facility] Out[facility] Encounter [id number] 11/27 [facility] Out[facility] Encounter [id number] 11/28 [facility] Encounter [id number] 11/30 [facility] UNLISTED SPEC DERM SVC/PX [id number] Diagnos is: ICD-10- CM Z13.89 Encount er for screeni ng for other disorde r
GORDON BEAUCHAMP ICA A 12/04 [facility] En[facility] [id number] 12/04 [facility] Outpatient Encounter [id number] Diagnos is: ICD-10- CM D48.5 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
Yossi HARRINGTON 12/29 [facility] En[facility] [id number] 12/29 [facility] Out[facility] Encounter [id number] 01/05 [facility] Out[facility] Encounter [id number] 01/09 [facility] Out[facility] Encounter [id number] 01/12 [facility] Out[facility] Encounter [id number] 01/12 [facility] Out[facility] Encounter [id number] 01/12 [facility] Out[facility] Encounter [id number] IRASEMA MONTILLA 01/13 [facility] Out[facility] Encounter [id number] 01/16 [facility] Out[facility] Encounter [id number] 01/19 [facility] Out[facility] Encounter [id number] 01/22 [facility] Out[facility] Encounter [id number] 02/02 [facility] ORTHC/PROS TC MGMT SBSQ ENC [id number] Diagnos is: ICD-10- CM M84.472 A Patholo gical fractur e, left ankle, init encntr for fractur e
Thierno HAMPTON 02/02 [facility] Out[facility] En[facility] [id number] 02/10 [facility] Out[facility] Encounter [id number] 02/13 [facility] Out[facility] Encounter [id number] 03/04 [facility] Out[facility] Encounter [id number] 03/04 [facility] OFF/OP EST MAY X REQ PHY/QHP [id number] Diagnos is: ICD-10- CM 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
PASCUAL STERN 03/05 [facility] OFF/OP EST MAY X REQ PHY/QHP [id number] Diagnos is: ICD-10- CM Z48.01 Encount er for change or removal of surgica l wound dressin g
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
Yossi HARRINGTON 03/31 [facility] Out[facility] En[facility] [id number] 04/09 [facility] OFFICE O/P EST LOW 20 MIN [id number] 1. Diagnos is: ICD-10- CM I10 Essenti al (primar y) hyperte nsion<b r/> RICO BARRON RD 04/13 [facility] Out[facility] Encounter [id number] 1.04/14 [facility] Out[facility] Encounter [id number] 04/23 [facility] Out[facility] Encounter [id number] 1.04/24 [facility] OFFICE O/P EST MOD 30 MIN [id number] Diagnos is: ICD-10- CM 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
RANCHO RODRIGUEZ 04/28 [facility] CONFORMITY EVALUATION [id number] Diagnos is: ICD-10- CM Z46.1 Encount er for fitting and adjustm ent of hearing aid<br/ > Yossi HARRINGTON 05/05 [facility] Outpatient Encounter [id number] 06/03 [facility] Outpatient Encounter [id number] 06/06 [facility] Social History Combined list of available smoking, tobacco, and other social history from Department of Defense and Veterans Affairs facilities. Social History Type Response Date Comment Sour e Tobacco smoking status NHIS VA-TOBACCO FORMER USER 10/16/2023 [facility] [place] [facility] History of tobacco use VA-TOBACCO QUIT 15 YRS OR MORE 10/16/2023 [facility] [place] [facility] History of tobacco use VA-TOBACCO FORMER USER 07/04/2022 [facility] [place] [facility] History of tobacco use NSG NO TOBACCO USE PAST 30 DAYS 03/27/2022 [place] History of tobacco use NSG NO TOBACCO USE PAST 30 DAYS 03/05/2022 [place] History of tobacco use NSG NO TOBACCO USE PAST 30 DAYS 03/02/2022 [place] History of tobacco use VA-TOBACCO FORMER USER 06/28/2021 [facility] [place] [facility] History of tobacco use VA-TOBACCO FORMER USER 05/26/2020 [facility] [place] [facility] History of tobacco use VA-TOBACCO NEVER USED 05/23/2018 [facility] [place] [facility] Plan of Care List of future care activities from Department of Veterans Affairs facilities. Additional future care activities may be listed in the Assessment and Plan section. Date/Time Care Activity Care Activity Detail Facili ty 08/14/2024 AMBULATORY - MEDICINE AMBULATORY - MEDICI [place] [facility] [place] [facility] 10/07/2024 AMBULATORY - MEDICINE AMBULATORY - MEDICI [place] [facility] [place] [facility] 10/28/2024 AMBULATORY - MEDICINE AMBULATORY - MEDICI [place] [facility] [place] [facility] 06/06/2024 Consult Order [facility] Cons Firearms Sales Associate's Choice [facility] [place] [facility] Advance Directives List of completed, amended, or rescinded Advance Directives on record at Department of Veterans Affairs facilities. An actual copy of the Directive is not included. Date Advance Directive Provider Source 02/19/2022 ADVANCE DIRECTIVE JOCE CASTORENA [facility] 11/16/2020 ADVANCE DIRECTIVE BYRON BARRON [facility]
--- OUTSIDE RECORDS SUMMARY | 2024-06-24 07:29 | XMS_ITS | Encounter Summary ---
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 [facility] [place] Address [address] [place] [address] Care Team Providers Care Correspondence Analyst Name Role Phone BYRON BARRON Primary [...] Dec 19, 2007 MEDICAR E SUPPLEM E [id number] NYDIA HUERTA UL PATIENT [employer] MEDICARE SUPPLEMEN YORDAN Dec 19, 2007 MEDICAR E SUPPLEM E [id number] NYDIA HUERTA UL PATIENT [employer] [place] MEDICARE SUPPLEMEN YORDAN BANKE RS Dec 19, 2007 NONE [id number] NYDIA HUERTA UL PATIENT MEDICARE (WNR) MEDICARE (M) PART B Oct 13, 2006 PART B [id number] [phone] NYDIA HUERTA UL PATIENT MEDICARE (WNR) MEDICARE (M) PART B Oct 13, 2006 PART B [id number] [phone] NYDIA HUERTA UL PATIENT MEDICARE (WNR) MEDICARE (M) PART B Oct 13, 2006 PART B [id number] [phone] NYDIA HUERTA PATIENT MEDICARE (WNR) MEDICARE (M) PART B Oct 13, 2006 PART B [id number] NYDIA HUERTA PATIENT MEDICARE (WNR) MEDICARE (M) PART A Sep 13, 2003 PART A [id number] NYDIA HUERTA PATIENT MEDICARE (WNR) MEDICARE (M) PART A Sep 13, 2003 PART A [id number] NYDIA HUERTA PATIENT MEDICARE (WNR) MEDICARE (M) PART A Sep 13, 2003 PART A [id number] NYDIA HUERTA PATIENT MEDICARE (WNR) MEDICARE (M) PART A Sep 13, 2003 PART A [id number] [phone] NYDIA HUERTA PATIENT Selected Encounter This section includes the information on record at [place] for the Encounter. Date/Time Encounter Type Encounter Description Reason Pro vider Source Mar 04, 2024 10:11 AM Outpatient Encounter TELEPHONE TRIAGE IHE Encounter Template Text not used by [place] Plan of Treatment: Future Appointments (+ 6 months) and Future Tests (+/- 45 days) The Plan of Treatment section includes future care activities for the patient from all [place] treatmentfacilities. This section includes future appointments and future orders which are active, pending or scheduled. Future Appointments This section includes appointments that were scheduled to occur 6 months from the date of the Encounter, up to a maximum of 20 appointments. The data comes from all [place] treatment facilities. Appointment Date/Time Appointment Type Appointme nt Facility Name Mar 05, 2024 08:00 AM [place] [facility] [place] [facility] Mar 05, 2024 09:00 AM [place] [facility] [place] [facility] Mar 06, 2024 08:00 AM [place] [facility] [place] [facility] Mar 24, 2024 02:00 PM [place] [facility] [place] [facility] Mar 31, 2024 09:30 AM AMBULATORY - [facility]ICIN [facility] [place] [facility] Apr 13, 2024 01:30 PM [facility] [place] [facility] Apr 28, 2024 02:00 PM [facility] [place] [facility] May 05, 2024 02:00 PM AMBULATORY - REHAB MEDICIN [facility] [place] [facility] Jun 16, 2024 01:15 PM [facility] [place] [facility] Aug 14, 2024 03:00 PM [place] [facility] [place] [facility] Social History: Smoking Status (Most current) and Tobacco Use (All prior to encounter date) This section includes the most current, and the historical, smoking and tobacco- related health factors from the [place] facility where the Encounter took place. Current Smoking Status This section includes the most current smoking, or tobacco-related health factor, from the [place] facility where the Encounter took place. Date/Time Current Smoking Status Comment Facil ity Oct 16, 2023 01:30 PM VA-TOBACCO FORMER USER [place] [facility] [place] [facility] Tobacco Use History This section includes a history of the smoking, or tobacco-related health factors, that were collected on or before the date of the Encounter. The data comes from the [place] facility where the Encounter took place. Date/Time Smoking Status/Tobacco Use Comment F acility Oct 16, 2023 01:30 PM VA-TOBACCO QUIT 15 YRS OR MORE [facility] [place] [facility] Jul 04, 2022 11:00 AM VA-TOBACCO FORMER USER [facility] [place] [facility] Jul 04, 2022 11:00 AM VA-TOBACCO QUIT 15 YRS OR MORE [facility] [place] [facility] Jun 28, 2021 10:30 AM VA-TOBACCO FORMER USER [facility] [place] [facility] Jun 28, 2021 10:30 AM VA-TOBACCO QUIT 15 YRS OR MORE [facility] [place] [facility] May 26, 2020 08:00 AM VA-TOBACCO FORMER USER [facility] [place] [facility] May 26, 2020 08:00 AM VA-TOBACCO QUIT 15 YRS OR MORE [facility] [place] [facility] May 23, 2018 11:21 AM VA-TOBACCO NEVER USED [facility] [place] [facility] Advance Directives: All historical and current Section Date Range: From patient's date of to the date document was created. This section includes ALL of a patient's completed or amended [place] Advance and Rescinded Directives. The entries below indicate that a directive exists for the patient, but an actual copy is not included with this document. The data comes from all [place] facilities. Date Advance Directives Provider Source Feb 19, 2022 ADVANCE DIRECTIVE JOCE CASTORENA [facility] November 16, 2020 ADVANCE DIRECTIVE BYRON BARRON [facility] Encounter Notes: All associated encounter notes This section contains the clinical notes associated to the Encounter. Date/Time Encounter Note(s) Provider Source Mar 04, 2024 10:11 AM RN PROGRESS NOTE: LOCAL TITLE: CCC: CLINICAL TRIAGE STANDARD TITLE: RN PROGRESS NOTE DATE OF NOTE: MAR 04, 2024@10:11:10 ENTRY DATE: MAR 04, 2024@10:11:10 AUTHOR: MAT GODWIN COSIGNER: URGENCY: STATUS: COMPLETED CCC: CLINICAL TRIAGE Has ADDENDA Patient Demographics Patient Name: ALYCIA HUERTA Patient Primary Address: [address] [place] [id number] Patient Primary Phone: [phone] Patient : 1940 Patient Age: 83 Caller/Recipient Relation to Patient: Self Emergency Contact: TIMMY HUERTA Triage Summary Conducted triage/discussed symptoms Pain Score: 2 Utilized the Triage Tool: Yes Chief Complaint: Toe Pain System WHEN: Within 24 Hours Nurse's Recommendation / WHEN: Within 8 Hours System WHERE: Clinic Nurse's Recommendation / WHERE[facility] Patient Disposition Patient/Caregiver agrees to plan of care: Yes Patient WHERE: Appointment Patient WHEN: Within 8 hours Patient is Urgent or Emergent Nursing Plan and Disposition Referred Patient for In-Person Appt Transferred patient to Sched & Admin-Apt Referred patient to higher level of care Provided location of Urgent Care Center Other course(s) of action Generated msg to PACT/Provider Provided guidance for worsening symptoms: *Caller/Patient* advised to call facilities [place] Clinical Contact Center or seek immediate medical attention for new or worsening symptoms Alternative course of action Alternative courses of action: UCC/ER Nurse Summary Nurse Summary: Received call from . [place] explains he fractured his left ankle approx. 8 weeks ago. and had surgical repair for it approx. 7 weeks ago through [facility]. [place] now wearing a walking a boot. Calling [...] PCP and have it taken care of. [place] did contact a civilian emt intermediate but they cannot see him until April. See [facility] for additional +/- signs & symptoms. Up triaged to seek care within 8 hours. requesting a f2f appt. with PCP. Declining option of VVC appt. with [facility]. States if he cannot get an appt. with PCP then he plans on going to a [facility]. Warm transferred to [facility] priority scheduling for assistance with scheduling. Information forwarded to PACT. Provided with the following [facility] as backup and advised to call facility of choice to confirm services and hours: [facility] [address] [place] [address] Main number: [phone] [facility] [address] [place] [id number] Main number: [phone] ER precautions provided. Clinical Contact Center Codes Clinic/Location: V1 CWM PHONE [facility] RN Decision Support System Output: Triage Complete Triage Date: 03/04/2024, 09:37 AM Triage Note: Decision Support Tool Used: [facility] Phone Triage 04 Mar 2024 13:34:35 +0000 [facility] Demographics 83 y/o Male Results CC: Toe Pain Software suggested: Within 24 Hours Software suggested follow-up location: Clinic, consider virtual care Values and Measures Duration of CC: 1 Months Positive Responses HPI: skin swelling, foot or toes, worsening HPI: toe pain, in only one toe VS: temperature not taken Negative Responses Denies: HPI: lymph node pain, lymph node swelling, inguinal Denies: HPI: red streaks, from a spot on the foot or toes Denies: HPI: skin erythema, foot or toe, worsening Denies: HPI: skin lump, swollen, painful, over the foot or toes Denies: HPI: toe injury, within past 2 days Denies: HPI: toe pain, localized to toenail or periungual skin Denies: HPI: toe pain, moderate to severe Denies: HPI: toe pain, severe Denies: MEDS: chemotherapy Denies: PMH: diabetes Denies: PMH: HIV positive Denies: PSH: foot surgery, within past week Denies: PSH: organ transplant IMPORTANT: This note was created by [facility] Contact [facility] staff. Please do not alert the staff member by adding them as a signer for future communications. Alerts are not monitored by this user. /eleanor/ MAT GODWIN RN Signed: 03/04/2024 10:11 Receipt Acknowledged By: 03/04/2024 12:48 /eleanor/ Kerry WAN RN CNL Primary Care RN for JOSIE KINGSTON 03/04/2024 13:32 /es/ COBY MAHER LPN LPN 03/04/2024 ADDENDUM STATUS: COMPLETED Talked with Vet, deined fever or chills. Vet desires [place] evaluation as there are no open PCP visits today or tomorrow. He will present in the AM 03/04/24. /eleanor/ Kerry WAN RN CNL Primary Care RN Signed: 03/04/2024 12:48 MAT GODWIN [facility]
--- OUTSIDE RECORDS SUMMARY | 2024-06-24 07:30 | XMS_ITS | Encounter Summary ---
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 Organization [facility] [place] Address [address] [place] [address] Care Team Providers Care Travel Agent Name Role Phone BYRON BARRON Primary Care [...] Dec 19, 2007 MEDICAR E SUPPLEM E [id number] [phone] NYDIA HUERTA PATIENT [employer] MEDICARE SUPPLEMEN YORDAN Dec 19, 2007 MEDICAR E SUPPLEM E [id number] [phone] NYDIA HUERTA UL PATIENT [employer] [place] MEDICARE SUPPLEMEN YORDAN BANKE RS Dec 19, 2007 NONE [id number] NYDIA HUERTA UL PATIENT MEDICARE (WNR) MEDICARE (M) PART B Oct 13, 2006 PART B [id number] NYDIA HUERTA UL PATIENT MEDICARE (WNR) MEDICARE (M) PART B Oct 13, 2006 PART B [id number] NYDIA HUERTA PATIENT MEDICARE (WNR) MEDICARE (M) PART B Oct 13, 2006 PART B [id number] NYDIA HUERTA PATIENT MEDICARE (WNR) MEDICARE (M) PART B Oct 13, 2006 PART B [id number] [phone] NYDIA HUERTA PATIENT MEDICARE (WNR) MEDICARE (M) PART A Sep 13, 2003 PART A [id number] [phone] NYDIA HUERTA PATIENT MEDICARE (WNR) MEDICARE (M) PART A Sep 13, 2003 PART A [id number] [phone] NYDIA HUERTA PATIENT MEDICARE (WNR) MEDICARE (M) PART A Sep 13, 2003 PART A [id number] NYDIA HUERTA PATIENT MEDICARE (WNR) MEDICARE (M) PART A Sep 13, 2003 PART A [id number] [phone] NYDIA HUERTA PATIENT Selected Encounter This section includes the information on record at DC for the Encounter. Date/Time Encounter Type Encounter Description Reason Provider Source Mar 24, 2024 02:00 PM OFF/OP CNSLTJ NEW/EST MOD 40 OTOLARYNGOLOGY/ENT ICD-10-CM H90.A31 Mix cndct/snrl hear loss,uni,r ear w rstrcd hear cntra side JHON PEREA [facility] Encounter Template Text not used by DC Assessments - Encounter Diagnoses This section includes the primary and secondary diagnoses documented for the Encounter. 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 JHON PEREA [facility] Apr 08, 2024 02:01 PM SECONDARY Tinnitus, bilateral JHON PEREA [place] [facility] [place] [facility] Plan of Treatment: Future Appointments (+ [...] Appointment Type Appointme nt Facility Name Mar 31, 2024 09:30 AM AMBULATORY - REHAB MEDICIN E [place] [facility] [place] [facility] Apr 13, 2024 01:30 PM [facility] Apr 28, 2024 02:00 PM AMBULATORY - MEDICINE DC [facility] [place] [facility] May 05, 2024 02:00 PM AMBULATORY - REHAB MEDICIN E [place] [facility] [place] [facility] Jun 16, 2024 01:15 PM AMBULATORY - MEDICINE DC [facility] [place] [facility] Aug 14, 2024 03:00 PM AMBULATORY - MEDICINE [facility] Lab Results: +/- 30 days of the encounter This section includes the Chemistry and Hematology Lab Results on record with DC for the patient. Radiology Reports and Pathology Reports are provided separately, in subsequent sections. Lab Results This section contains the Chemistry/Hematology Results that were resulted 30 days before or 30 daysafter the date of the Encounter. Date/Time Source Result Type Result - Unit Interpretation Reference Range Comment Apr 07, 2024 07:31 AM [facility] LIVER FUNCTION Specimen Type: SERUM No comment entered. Ordering Provider: BYRON BARRON Report Released Date/Time: Apr 04, 2024 05:53 PM Reporting Lab: [facility] [address] [facility] [address] Performing Lab: [address] [address] PROTEIN,TOTAL 6.8 g/dL 6.0-8.3 ALBUMIN 4.0 g/dL 3.5-5.0 ALKALINE PHOSPHATASE 118 U/L 40-150 AST 30 U/L 5-34 ALT 23 U/L BILIRUBIN, TOTAL 1.0 mg/dL 0.2-1.2 Apr 07, 2024 07:31 AM [facility] BASIC METABOLIC PANEL (fasting) Specimen Type: SERUM No comment entered. Ordering Provider: BYRON BARRON Report Released Date/Time: Apr 04, 2024 05:53 PM Reporting [facility] [address] [facility] [address] Performing [facility]: [facility] [address] [address] UREA NITROGEN 22 mg/dL 7-25 GLUCOSE 93 mg/dL 65-100 SODIUM 139 mmol/L 135-145 POTASSIUM 3.9 mmol/L 3.5-5.0 CHLORIDE 102 mmol/L 100-110 CO2 26 meq/L 20-30 CREATININE, Serum 0.92 mg/dL 0.50-1.40 eGFR(CKD-EPI 2020) 82 mL/min >60 Apr 07, 2024 07:31 AM [facility] TSH Specimen Type: SERUM No comment entered. Ordering Provider: BYRON BARRON Report Released Date/Time: Apr 04, 2024 05:53 PM Reporting Lab: [address] [address] Performing Lab: [facility] [address] TSH 2.34 u[IU]/mL 0.35-5.00 Apr 07, 2024 07:31 AM [facility] LIPID PANEL FASTING Specimen Type: SERUM No comment entered. Ordering Provider: BYRON BARRON Report Released Date/Time: Apr 04, 2024 05:53 PM Reporting Lab: [address] [address] Performing [facility]: [facility] [address] CHOLESTEROL 139 mg/dL TRIGLYCERIDE 136 mg/dL 0-150 LDL calculated 72 mg/dL 0-129 CHOL/HDL 3.5 HDL CHOLESTEROL 40 mg/dL 40-60 Apr 07, 2024 07:31 AM [facility] CBC AND DIFF (AUTO) Specimen Type: BLOOD No comment entered. Ordering Provider: BYRON BARRON Report Released Date/Time: Apr 04, 2024 05:53 PM Reporting [facility] [address] Performing Lab: [facility] [address] [facility] [address] WBC 7.77 10*3/uL 4.50-11.00 RBC 4.29 10*6/uL [...] 10*3/uL 0.00-0.00 Apr 07, 2024 07:31 AM [facility] URINALYSIS CLEAN CATCH Specimen Type: URINE Comment: If Glucose = >500 and Ketones are positive, please alert the Physician. Ordering Provider: BYRON BARRON Report Released Date/Time: Apr 04, 2024 05:53 PM Reporting Lab: [facility] [address] [facility] [address] Performing Lab: [facility] [address] [facility] [address] UA COLOR Yellow Yellow UA APPEARANCE Clear [...] Height Weight Body Mass Index Source Mar 24, 2024 01:48 PM 98.1 80 151/78 16 97 0 [place] [facility] [place] [facility] Social History: Smoking Status (Most current) and [...] 2023 01:30 PM VA-TOBACCO FORMER USER [place] [facility] Tobacco Use History This section includes a history of the smoking, or tobacco-related health factors, that were collected on or before the date of the Encounter. The data comes from the DC facility where the Encounter took place. Date/Time Smoking Status/Tobacco Use Comment F acility Oct 16, 2023 01:30 PM VA-TOBACCO QUIT 15 YRS OR MORE [place] [facility] [place] [facility] Jul 04, 2022 11:00 AM VA-TOBACCO FORMER USER [place] [facility] [place] [facility] Jul 04, 2022 11:00 AM VA-TOBACCO QUIT 15 YRS OR MORE [place] [facility] [place] [facility] Jun 28, 2021 10:30 AM VA-TOBACCO FORMER USER [place] [facility] [place] [facility] Jun 28, 2021 10:30 AM VA-TOBACCO QUIT 15 YRS OR MORE [place] [facility] [place] [facility] May 26, 2020 08:00 AM VA-TOBACCO FORMER USER [place] [facility] [place] [facility] May 26, 2020 08:00 AM VA-TOBACCO QUIT [facility] YRS [facility] May 23, 2018 11:21 AM DC-TOBACCO NEVER USED [facility] Advance Directives: All historical and current [...] Feb 19, 2022 ADVANCE DIRECTIVE JOCE CASTORENA [facility] November 16, 2020 ADVANCE DIRECTIVE BYRON BARRON [facility] Encounter Notes: All associated encounter notes This section contains the clinical notes associated to the Encounter. 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 Patient states that he has had hearing loss for many years. He has previously had hearing aids through [facility]. He is not sure if 1 ear is worse than the other. He has bilateral tinnitus. He denies vertigo although states that he gets lightheaded if he gets up too quickly. He has a history of very significant noise exposure. 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 He has no history of ear infections or ear surgery. He does tell me that he uses a paperclip to get wax out of his ears and sometimes notices clear discharge from his left ear. He denies otalgia or otorrhea. He has had many instances where he has hit his head very hard. With respect to family history he states that his mother wore very strong hearing aids as early as her 40s or 50s and his sister has a cochlear implant. 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 PMHx: Active problems - Computerized Problem List is the source for the followin. Chronic dermatitis 2. Aortic valve stenosis 3. Chest Pain ([facility] [id number]) 4. COPD - Chronic Obstructive Pulmonary Disease ([facility] [id number]) 5. HTN - Hypertension ([facility] [id number]) 6. Hypercholesterolemia ([facility] [id number]) 7. Cataract 8. Asbestosis Service Connected Disabilities with % Eligibility: SC LESS THAN 50% VERIFIED Total S/C %: 20 TINNITUS 10% S/C IMPAIRED HEARING 0% S/C CHRONIC PLEURAL EFFUSION OR FIBROSIS 10% S/C MEDS: Active Outpatient Medications (including Supplies): ATORVASTATIN CALCIUM 80MG TAB TAKE ONE TABLET BY MOUTH AT ACTIVE BEDTIME CEPHALEXIN 500MG CAP TAKE ONE CAPSULE BY MOUTH EVERY 8 ACTIVE HOURS FOR INFECTION EZETIMIBE 10MG TAB TAKE ONE TABLET BY MOUTH ONCE DAILY TO ACTIVE LOWER CHOLESTEROL FLUTICASONE PROP 50MCG 120D NASAL INHL INSTILL [...] TAB 81MG BY MOUTH ONCE DAILY ACTIVE ALL: NOVOCAIN Fam Hx: Non - contributory Soc Hx: FORMER SMOKER ROS: Denies any other relavent ROS Vitals Enter at: Mar 24, 2024@13:48:12 BP: 151/78 P: 80 R: 16 T: 98.1 211 lb [95.71 kg] (10/16/2023 13:15) BMI: 35.2 CONSTITUTION: GENERAL APPEARANCE:Well developed, well nourished and groomed. No apparent acute or chronic distress. HEAD, FACE, SALIVARY GLANDS AND TMJ: Palpation of Parotid and Submandibular glands: WELL-HEALED RIGHT PAROTID SCAR Facial Mobility: Normal. EAR, NOSE, MOUTH AND THROAT: Pinnas - normal. Otoscopic exam: RIGHT EAR: External auditory canal CERUMEN, tympanic membrane mobile LEFT EAR: External auditory canal normal, tympanic membrane mobile MODERATE HEARING LOSS Nasal Interior: Turbinates and middle meatus - Inferior turbinates normal. Normal mucosa with no swelling, polyps, active bleeding or evidence of bleeding. Lips, Teeth and Gums: Lips normal. EDENTULOUS WITH DENTURES Oral Cavity and Oropharynx: Oral mucosa with normal color and moisture. Anterior 2/3rds of tongue normal. Breath quality normal. Hard palate normal. Normal floor of mouth, Posterior pharynx normal. NECK AND THYROID: Neck: no adenopathy; no neck masses. RESPIRATORY: Respiratory effort normal. LYMPH NODES: Neck nodes: normal. NEUROLOGIC: Higher integrative functions: Normal orientation, memory, attention span and concentration, language, and fund of knowledge. Cranial nerves: Cranial nerves II-XII grossly intact and symmetrical. RINNE+, SUAZO TO THE RIGHT PSYCHIATRIC: Mood and affect: normal and appropriate to the situation. PROCEDURE NOTE - PERFORMED THIS VISIT CPT 06493 Cerumen removal, unilateral or bialteral Informed consent was obtained. Risks, benefits, and alternatives were discussed. PATHOLOGY FOUND: Wax impaction in both ears PROCEDURE: The right ear was examined using the operating otoscope. Then under Direct visualization the wax was remove using suction and/or instruments. TOLERANCE: The patient tolerated this well. AUDIOGRAM 12-30-2023 Otoscopy is WNL for the left ear while revealing a moderate amount of cerumen, right ear. Pure tone audiometric testing with headphones* of the left ear revealed normal hearing at 250 and 500 Hz, sloping to a moderately severe mixed hearing loss. Right ear testing revealed a moderate sloping to severe mixed hearing loss. Results from 6239-8691 Hz reflect testing with inserts, as those [...] ears) in comparison to those from 2019. 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 Patient states that he has had hearing loss for many years. He has previously had hearing aids through [facility]. He is not sure if 1 ear is worse than the other. He has bilateral tinnitus. He denies vertigo although states that he gets lightheaded if he gets up too quickly. He has a history of very significant noise exposure. 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 He has no history of ear infections or ear surgery. He does tell me that he uses a paperclip to get wax out of his ears and sometimes notices clear discharge from his left ear. He denies otalgia or otorrhea. He has had many instances where he has hit his head very hard. With respect to family history he states that his mother wore very strong hearing aids as early as her 40s or 50s and his sister has a cochlear implant. Physical exam shows elderly male with obvious hearing loss. Patient tolerated cerumen removal from the right. EACs are clear bilaterally tympanic membrane's visualized and mobile. RINNE positive Suazo lateralized to the right. I reviewed the patient's audiogram with him. 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 He has a moderately severe to severe mixed hearing loss on the right. 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 There is no history of infection and no evidence of cholesteatoma. I suspect the patient's drainage from the ear is simply liquefied cerumen. Given patient's underlying sensorineural hearing loss he would require hearing aids even without the conductive component therefore I have recommended amplification. Patient agrees as he is not interested in surgery. Patient does have a mild asymmetric sensorineural component which has persisted since at least 2019. I recommended observation at this time. PATIENT IS THEREFORE MEDICALLY CLEARED FOR AMPLIFICATION. I have recommended that he stop putting paperclips in his ears. All questions were answered. Complete encounter includes: Review of past medical records Time spent with patient including obtaining history, physical exam, shared decision making, procedures Counseling and answering questions Post visit documentation to include but not limited to medication and lab ordering. Total time = Minimum 45 min MEDICATION RECONCILIATION Outpatient: Has the patient been taking medications as documented in the EMLR? YES: The patient has been taking medications as documented in the EMLR. Essential Medication List for Review used to complete this medication reconciliation. INCLUDED IN THIS LIST: Alphabetical list of active outpatient prescriptions dispensed from this DC (local) and dispensed from another DC or [facility] facility (remote) as well as [...] whether with a VA or non-VA provider. JLV Link Data on this list may not be complete. Please check JLV. Allergies/ADRs (Tool #5) FACILITY ALLERGY/ADR -------- [facility] PROCAINE [place] [facility] (Tool #1) INCLUDED IN THIS LIST: Alphabetical list of active outpatient prescriptions dispensed from this DC (local) and dispensed from another DC or [facility] facility (remote) as well as inpatient orders (local pending and active), local clinic medications, locally documented non-VA medications, and local prescriptions that have or been discontinued in the past 90 days. Non-VA Meds Last Documented On: Apr 09, 2022 NOTE The display of VA prescriptions dispensed from another DC or [facility]D facility (remote) is limited to active outpatient prescription entries matched to National Drug File at the originating site and may not include some items such as investigational drugs, compounds, etc. NOT INCLUDED IN THIS LIST: Medications self-entered by the patient into personal health records (i.e. [employer]) are NOT included in this list. Non-VA medications documented outside this DC, remote inpatient orders (regardless of status) and [...] ONE TABLET BY MOUTH AT BEDTIME Rx# [id number] Last Released: 03/19/24 Qty/Days Supply: Rx Expiration Date: 06/19/24 Refills Remainin OUTPT CEPHALEXIN 500MG CAP (Status = Active) TAKE ONE CAPSULE BY MOUTH EVERY 8 HOURS FOR INFECTION Rx# [id number] Last Released: 03/05/24 Qty/Days Supply: 01/02 Rx Expiration Date: 04/04/24 Refills Remainin Indication: FOR INFECTION CAUSED BY BACTERIA OUTPT EZETIMIBE 10MG TAB (Status = Active) TAKE ONE TABLET BY MOUTH ONCE DAILY TO LOWER CHOLESTEROL Rx# [id number] Last Released: 03/19/24 Qty/Days Supply: Rx Expiration Date: 06/19/24 Refills Remainin OUTPT FLUTICAS 250/SALMETEROL 50 INHL DISK 60 (Status = ) INHALE 1 PUFF BY MOUTH TWICE DAILY - RINSE MOUTH AFTER USE Rx# [id number] Last Released: 05/31/23 Qty/Days Supply: Rx Expiration Date: 03/07/24 Refills Remainin Indication: FOR BRONCHOSPASM PREVENTION WITH COPD OUTPT FLUTICASONE PROP 50MCG 120D NASAL INHL (Status = Active) INSTILL 1 SPRAY INTO EACH NOSTRIL ONCE DAILY NEEDED FOR NASAL IRRITATION/INFLAMMATION Rx# [id number] Last Released: 05/31/23 Qty/Days Supply: 08/13 Rx Expiration Date: 04/15/24 Refills Remainin Indication: FOR NASAL IRRITATION/INFLAMMATION OUTPT HYDROCHLOROTHIAZIDE 25MG TAB (Status = Active) TAKE ONE TABLET BY MOUTH ONCE DAILY Rx# [id number] Last Released: 01/06/24 Qty/Days Supply: Rx Expiration Date: 06/19/24 Refills Remainin OUTPT METOPROLOL SUCCINATE 50MG SA TAB (Status = Active) TAKE ONE TABLET BY MOUTH ONCE DAILY FOR BLOOD PRESSURE/HEART Rx# [id number] Last Released: 03/19/24 Qty/Days Supply: Rx Expiration Date: 06/19/24 Refills Remainin OUTPT TRIAMCINOLONE ACETONIDE 0.1% CREAM (Status = Active) APPLY A MODERATE AMOUNT TOPICALLY TWICE DAILY NEEDED FOR ITCHING Rx# [id number] Last Released: 10/28/23 Qty/Days Supply: Rx Expiration Date: 10/24/24 Refills Remainin Indication: FOR ITCHING SUPPLIES /eleanor/ Jhon Perea MD Otolaryngology Signed: 03/24/2024 14:39 J[facility]ON PEREA [facility] [facility]
--- OUTSIDE RECORDS SUMMARY | 2024-06-24 07:36 | XMS_ITS | Encounter Summary ---
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 Organization [place] Address [address] [place] [address] Care Team Providers Care Core Drilling Supervisor Name Role Phone BYRON BARRON Primary [...] Dec 19, 2007 MEDICAR E SUPPLEM E [id number] [phone] NYDIA HUERTA UL PATIENT [employer] MEDICARE SUPPLEMEN YORDAN Dec 19, 2007 MEDICAR E SUPPLEM E [id number] NYDIA HUERTA UL PATIENT [employer] [place] MEDICARE SUPPLEMEN YORDAN BANKE RS Dec 19, 2007 NONE [id number] NYDIA HUERTA UL PATIENT MEDICARE (WNR) MEDICARE (M) PART B Oct 13, 2006 PART B [id number] NYDIA HUERTA UL PATIENT MEDICARE (WNR) MEDICARE (M) PART B Oct 13, 2006 PART B [id number] NYDIA HUERTA UL PATIENT MEDICARE (WNR) MEDICARE (M) PART B Oct 13, 2006 PART B [id number] NYDIA HUERTA PATIENT MEDICARE (WNR) MEDICARE (M) PART B Oct 13, 2006 PART B [id number] NYDIA HUERTA PATIENT MEDICARE (WNR) MEDICARE (M) PART A Sep 13, 2003 PART A [id number] [phone] NYDIA HUERTA UL PATIENT MEDICARE (WNR) MEDICARE (M) PART A Sep 13, 2003 PART A [id number] [phone] NYDIA HUERTA PATIENT MEDICARE (WNR) MEDICARE (M) PART A Sep 13, 2003 PART A [id number] NYDIA HUERTA PATIENT MEDICARE (WNR) MEDICARE (M) PART A Sep 13, 2003 PART A [id number] NYDIA HUERTA PATIENT Selected Encounter This section includes the information on record at [place] for the Encounter. Date/Time Encounter Type Encounter Description Reason Provider Source December 05, 2023 03:05 PM Outpatient Encounter DERMATOLOGY ICD-10-CM D48.5 Neoplasm of uncertain behavior of skin IRENA BRADFORD [facility] Encounter Template Text not used by [place] Assessments - Encounter Diagnoses This section includes the primary and secondary diagnoses documented for the Encounter. Date/Time Primary/Secondary Diagnosis Diagnosis Name Provider Source December 12, 2023 12:36 PM PRIMARY Neoplasm of uncertain behavior of skin IRENA BRADFORD [facility] Plan of Treatment: Future Appointments [...] 11:00 AM AMBULATORY - [facility] Jan 13, 2024 01:20 PM AMBULATORY - MEDICINE [facility] Jan 21, 2024 08:00 AM AMBULATORY - MEDICINE [place] [facility] [place] [facility] Feb 03, 2024 01:30 PM AMBULATORY - REHAB MEDICIN E [place] [facility] [place] [facility] Mar 05, 2024 08:00 AM AMBULATORY - MEDICINE [place] [facility] [place] [facility] Mar 05, 2024 09:00 AM AMBULATORY - MEDICINE [facility] [place] [facility] Mar 06, 2024 08:00 AM AMBULATORY - MEDICINE [facility] [place] [facility] Mar 24, 2024 02:00 PM AMBULATORY - MEDICINE [facility] [place] [facility] Mar 31, 2024 09:30 AM AMBULATORY - REHAB MEDICIN E [place] [facility] [place] [facility] Apr 13, 2024 01:30 PM AMBULATORY - MEDICINE [facility] [place] [facility] Apr 28, 2024 02:00 PM AMBULATORY - MEDICINE [place] [facility] [place] [facility] May 05, 2024 02:00 PM AMBULATORY - REHAB MEDICIN E [place] [facility] [place] [facility] Advance Directives: All historical and current Section [...] 2022 ADVANCE DIRECTIVE [facility] November 16, 2020 ADVANCE DIRECTIVE BYRON BARRON [place] [facility] [place] [facility] Encounter Notes: All associated encounter notes This section contains the clinical notes associated to the Encounter. Date/Time Encounter Note(s) Provider Source December 05, 2023 03:05 PM TELEIMAGING REPORT : LOCAL TITLE: CONSULT-TELEDERMATOLOGY IMAGING REPORT STANDARD TITLE: TELEIMAGING REPORT DATE OF NOTE: DECEMBER 05, 2023@15:05 ENTRY DATE: DECEMBER 05, 2023@15:05:18 AUTHOR: IRENA BRADFORD EXP COSIGNER: URGENCY: STATUS: COMPLETED HISTORY: This is an 83-year-old male with a previous history of BCC was consulted for evaluation of a lesion on the right lower back. Asymptomatic. OVERALL CONSULT/IMAGE QUALITY: Fully satisfactory EXAM: 8 mm brown macule with services advisor medial pole. IMPRESSION BASED ON IMAGES AND [...] BRADFORD PA-C [facility] Signed: 12/05/2023 15:06 IRENA BRADFORD [facility]
--- OUTSIDE RECORDS SUMMARY | 2024-06-24 07:40 | XMS_ITS ---
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 Organization [facility] Address [address] [place] [address] Care Team Providers Care Pe Teacher Name Role Phone BYRON BARRON Primary Care [...] Dec 19, 2007 MEDICAR E SUPPLEM E [id number] NYDIA HUERTA UL PATIENT [employer] MEDICARE SUPPLEMEN YORDAN Dec 19, 2007 MEDICAR E SUPPLEM E [id number] NYDIA HUERTA UL PATIENT [employer] CO MEDICARE SUPPLEMEN YORDAN BANKE RS Dec 19, 2007 NONE [id number] YNDIA HUERTA UL PATIENT MEDICARE (WNR) MEDICARE (M) PART B Oct 13, 2006 PART B [id number] [phone] NYDIA HUERTA UL PATIENT MEDICARE (WNR) MEDICARE (M) PART B Oct 13, 2006 PART B [id number] [phone] [place] UL PATIENT MEDICARE (WNR) MEDICARE (M) PART B Oct 13, 2006 PART B [id number] NYDIA HUERTA PATIENT MEDICARE (WNR) MEDICARE (M) PART B Oct 13, 2006 PART B [id number] NYDIA HUERTA PATIENT MEDICARE (WNR) MEDICARE (M) PART A Sep 13, 2003 PART A [id number] NYDIA HUERTA PATIENT MEDICARE (WNR) MEDICARE (M) PART A Sep 13, 2003 PART A [id number] NYDIA HUERTA PATIENT MEDICARE (WNR) MEDICARE (M) PART A Sep 13, 2003 PART A [id number] NYDIA HUERTA PATIENT MEDICARE (WNR) MEDICARE (M) PART A Sep 13, 2003 PART A [id number] [phone] NYDIA HUERTA PATIENT Selected Encounter This section includes the information on record at [place] for the Encounter. Date/Time Encounter Type Encounter Description Reason Pro vider Source May 08, 2024 12:00 AM Outpatient Encounter COMMUNITY CARE CONSULT IHE Encounter Template Text not used by [place] Plan of Treatment: Future Appointments (+ 6 [...] 16, 2024 01:15 PM AMBULATORY - MEDICINE [place] [facility] [place] [facility] Aug 14, 2024 03:00 PM AMBULATORY - MEDICINE [place] [facility] [place] [facility] Oct 07, 2024 09:00 AM AMBULATORY - MEDICINE [place] [facility] [place] [facility] Oct 28, 2024 08:00 AM AMBULATORY - MEDICINE [facility] [place] [facility] Active, Pending, and Scheduled Orders This section includes a listing of several types of active, pending, and scheduled orders, including clinic medications orders, diagnostic test orders, procedure orders and consult orders; where the start date of the order is 45 days before the date of the Encounter or 45 days after the date of theEncounter. The data comes from all [place] treatment facilities. Test Date/Time Test Type Test Details Facility Name Jun 06, 2024 04:26 PM Consult Order COMMUNITY CARE-[facility]TH[facility] GENERAL Cons School Treasurer's Choice [place] [facility] [place] [facility] Social History: Smoking Status (Most current) and Tobacco Use (All prior to encounter date) This section includes the most current, and the historical, smoking and tobacco- related health factors from the [place] facility where the Encounter took place. Current Smoking Status This section includes the most current smoking, or tobacco-related health factor, from the [place] facility where the Encounter took place. Date/Time Current Smoking Status Comment Facil ity Oct 16, 2023 01:30 PM [facility]ACCO [facility] Tobacco Use History This section includes a history of the smoking, or tobacco-related health factors, that were collected on or before the date of the Encounter. The data comes from the [place] facility where the Encounter took place. Date/Time Smoking Status/Tobacco Use Comment F acility Oct 16, 2023 01:30 PM VA-TOBACCO QUIT 15 YRS OR MORE [place] [facility] [place] [facility] Jul 04, 2022 11:00 AM VA-TOBACCO FORMER USER [place] [facility] [place] [facility] Jul 04, 2022 11:00 AM VA-TOBACCO QUIT 15 YRS OR MORE [place] [facility] [place] [facility] Jun 28, 2021 10:30 AM VA-TOBACCO FORMER USER [place] [facility] [place] [facility] Jun 28, 2021 10:30 AM VA-TOBACCO QUIT 15 YRS OR MORE [place] [facility] [place] [facility] May 26, 2020 08:00 AM VA-TOBACCO FORMER USER [place] [facility] [place] [facility] May 26, 2020 08:00 AM VA-TOBACCO QUIT 15 YRS OR MORE [place] [facility] [place] [facility] May 23, 2018 11:21 AM VA-TOBACCO NEVER USED [place] [facility] [place] [facility] Advance Directives: All historical and current [...] Feb 19, 2022 ADVANCE DIRECTIVE JOCE CASTORENA [facility] November 16, 2020 ADVANCE DIRECTIVE BYRON BARRON [facility] Encounter Notes: All associated encounter notes This section contains the clinical notes associated to the Encounter. Date/Time Encounter Note(s) Provider Source May 08, 2024 12:00 AM NONVA CONSULT: LOCAL TITLE: COMMUNITY CARE-CONSULT RESULT NOTE STANDARD TITLE: NONVA CONSULT DATE OF NOTE: MAY 08, 2024 ENTRY DATE: JUN 23, 2024@14:45:39 AUTHOR: LIZZIE VASQUEZ EXP COSIGNER: URGENCY: STATUS: COMPLETED VistA Imaging - Scanned Document SCANNED DOCUMENT SIGNATURE NOT REQUIRED Electronically Filed: 06/23/2024 by: LIZZIE BLISS [facility]
--- OUTSIDE RECORDS SUMMARY | 2024-06-24 07:41 | XMS_ITS ---
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 Generated for Printi ng/Famichaelg/eTransmitting on:?06/24/2024 07:41 AM EST
--- OUTSIDE RECORDS SUMMARY | 2024-06-24 07:41 | XMS_ITS | Patient Health Record ---
Author Organization [facility] [place] Address [address] [place] [address] Care Team Providers Care Bricklayer'S Assistant Name Role Phone Josue Simmons MD Primary Care Provider Lyn Aquino Unavailable [phone] Allergies Allergen (clinical drug ingredient) Drug/Non Drug [...] primary osteoarthritis of the ankle and/or foot ([id number]) Primary osteoarthrit is, right ankle and foot (M19.071) Active confirmed Encounters Encounter Location Date Provider Diagnosis [facility] [place] [address] [facility] [address] 03/09/2024 Lyn Lund [facility] [address] [facility] [place] [address] 03/12/2024 Lyn Lund [facility] [address] [facility] [address] 04/02/2024 Lyn Lund Plan Of Treatment Pending Test Test Name Order Date X ray : Foot, right 3V 01/20/2015 X ray : Ankle, right 3V 03/04/2017 Insurance Providers Payer Name Payer Address Payer Phone Subscriber Number Group Number Insured Name Patient Relationship to Insured Coverage Start Date Coverage End Date Medicare [employer] [address] [place] [address] [id number] Reed Mallory Self - patient is the insured [employer] [address] [place] [address] Reed Mallory Self - patient is the [...]
--- OUTSIDE RECORDS SUMMARY | 2024-06-24 07:41 | XMS_ITS ---
Author Organization [facility] Address [address] [place] [address] Care Team Providers Care Brim Stretcher Name Role Phone Josue Simmons MD Primary Care Provider Unavailab melinda Lyn Lund Unavailable [phone] Allergies Allergen (clinical drug ingredient) Drug/Non Drug [...] 04/23/2024 Encounters Encounter Location Date Provider Diagnosis [facility] [address] [place] [address] 04/23/2024 Lyn Lund Plan Of Treatment No Information Progress Notes * Reed MALLORY HDOB:1940 (83 yo M)Acc No.[id number]:04/23/2024 Progress Notes Patient:Reed VANCE Provider:?Lyn Lund DPM :1940???Age:83 Y???Sex:Male Chu e:04/23/2024 Address:[address] [place], [place] [id number] Pcp:Josue Simmons MD Subjective: * Chief Complaints: [...] Provider:Nery Lund DPM Date:?2023 Generated for Yokasta palacios/Ilda/Cocoitting on:?06/24/2024 07:41 AM EST
--- OUTSIDE RECORDS SUMMARY | 2024-06-24 07:41 | XMS_ITS ---
Author Organization [facility] Address [address] [place] [address] Care Team Providers Care Relay Repairer Name Role Phone Josue Simmons MD Primary Care Provider Unavailab Lyn Damico [phone] REASON FOR VISIT 04/23/24 Encounters Encounter Location Date Provider Diagnosis [facility] [address] [place] [address] 04/02/2024 Lyn Lund Plan Of Treatment No Information Progress Notes * Reed MALLORY HDOB:1940 (83 yo M)Acc No.[id number]:04/02/2024 Patient:?Reed Mallory :1940???Age:83 Y???Sex:Male Address:[address] [place] [address] * true * Date:? Generated for Printi ng/Ilda/eTransmitting on:?06/24/2024 07:41 AM EST
== END 2024-06-19 12:11 | disposition home or self-care (01) ==
PROVIDERS: PCP Internal Medicine
DX: S82.62XA Displaced fracture of lateral malleolus of left fibula, initial encounter for closed fracture (principal)
CPT/HCPCS: 99213

== ENCOUNTER 2024-06-19 12:10 | Outpatient (REF) | payer OTHER, SELFPAY ==
--- NOTE | ~2024-06-19 | US_ITS ---
EXAMINATION: US TRIPLEX LOWER EXTREMITY, LEFT CLINICAL INFORMATION: Left leg edema and pain COMPARISON: None available. TECHNIQUE: Color-flow triplex imaging with spectral analysis and compression Doppler were performed on the left lower extremity. FINDINGS: Respiratory variation, normal compression and augmented flow are noted throughout the left lower extremity. The visualized common femoral vein, superficial femoral vein, profunda femoral vein, popliteal vein and midcalf peroneal and posterior tibial venous segments show no evidence of deep venous thrombosis. There is no Caruso's cyst. US/US venous duplex LE LT IMPRESSION: No evidence of deep venous thrombosis involving the left lower extremity. Electronically signed by: Jesse Lundberg MD 06/19/2024 03:14 PM EST
--- OUTSIDE RECORDS SUMMARY | 2024-06-24 08:09 | XMS_ITS | Continuity of Care Document ---
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 It does not include entries that were removed or entered in error. Problem Status Onset Date Problem Type Date of Resolution Comments Source Chronic dermatitis Active 023 Condition Oct 05, 2022 Entered By: BYRON BARRON Comment: referred to dermatology [facility] Chest Pain (SCT [id number]) Active Condition Jan 02, 2022 Entered By: BYRON BARRON Comment: ordered stress test [facility] COPD - Chronic Obstructive Pulmonary Disease (SCT 19901445) Active Condition Dec 28, 2021 Entered By: BYRON BARRON Comment: on inhalers [facility] Cataract Active Condition Oct 12, 2020 Entered By: BYRON BARRON Comment: referred for surgery [facility] HTN - Hypertension (SCT [id number]) Active Condition Oct 21, 2020 Entered By: BYRON BARRON Comment: treated witn medication [facility] Hypercholesterolemia (SCT [id number]) Active Condition Oct 21, 2020 Entered By: [...] of uncertain behavior of skin Active Diagnosis [facility] Diagnosis: ICD-10-CM Z13.89 Encounter for screening for other disorder Active Diagnosis [facility] Diagnosis: ICD-10-CM R21 Rash and other nonspecific skin eruption Active Diagnosis [facility] Diagnosis: ICD-10-CM Z23 Encounter for immunization Active Diagnosis [facility] Diagnosis: ICD-10-CM H67.3 Otitis media in diseases classified elsewhere, bilateral Active Diagnosis [facility] [place] [facility] Medications Combined list of outpatient medications from [...] TWICE DAILY FOR INFECTIO N ORAL 11/15/2023 [id number] MAUREEN BARRON 2023 20 [facility] ASPIRIN 81MG TAB,CHEWABL E CHEW ONE TABLET BY MOUTH ONCE DAILY ORAL ACTIVE JANINE HAMMOND R 2021 [facility] ATORVASTATI N CA 80MG TAB TAKE ONE TABLET BY MOUTH ONCE DAILY FOR CHOLESTE ROL ORAL DISCONT INUED 03/07/2024 [id number] MAUREEN BARRON PAIGE D 2022 90 [facility] ATORVASTATI N CA 80MG TAB TAKE ONE TABLET BY MOUTH AT BEDTIME ORAL 06/19/2024 [id number] 4 KENDALL,MOHAMUD AV 2022 90 [facility] CEPHALEXIN 500MG CAP TAKE ONE CAPSULE BY MOUTH EVERY 8 HOURS FOR INFECTIO N ORAL 04/04/2024 [id number] 4 MAMTA STERN 2023 21 [facility] EZETIMIBE 10MG TAB TAKE ONE TABLET BY MOUTH ONCE DAILY TO LOWER CHOLESTE ROL ORAL 06/19/2024 [id number] 4 KENDALLMOHAMUD AV 2022 90 [facility] FLUTICASONE 250MCG/SALM ETEROL 50MCG INHL,ORAL,D ISKUS,60 INHALE 1 PUFF BY MOUTH TWICE DAILY - RINSE MOUTH AFTER USE RESPIR ATORY (INHAL ATION) 03/07/2024 [id number] 3 MAUREEN BARRON PAIGE D 2022 3 [facility] FLUTICASONE PROPIONATE 50MCG/SPRAY SOLN,NASAL, 16GM INSTILL 1 SPRAY INTO EACH NOSTRIL ONCE DAILY NEEDED FOR NASAL IRRITATI ON/INFLA MMATION NASAL 04/15/2024 [id number] 3 MAUREEN BARRON PAIGE D 2022 1 [facility] HYDROCHLORO THIAZIDE 25MG TAB TAKE ONE TABLET BY MOUTH ONCE DAILY TO PREVENT FLUID/CO NTROL BLOOD PRESSURE ORAL DISCONT INUED 03/07/2024 [id number] 3 MAUREEN BARRON PAIGE D 2022 90 [facility] HYDROCHLORO THIAZIDE 25MG TAB TAKE ONE TABLET BY MOUTH ONCE DAILY ORAL 06/19/2024 [id number] KENDALL,MOHAMUD AV 2023 90 [facility] METOPROLOL SUCCINATE 50MG TAB,SA TAKE ONE TABLET BY MOUTH ONCE DAILY FOR BLOOD PRESSURE /HEART ORAL 06/19/2024 [id number] 4 KENDALL,MOHAMUD AV 2022 90 [facility] TRIAMCINOLO NE ACETONIDE 0.1% CREAM,TOP APPLY A MODERATE AMOUNT TOPICALL Y TWICE DAILY NEEDED FOR ITCHING TOPICA L ACTIVE 10/24/2024 [id number] 4 BEATRICEMAUREEN APIGE D 2023 [facility] Allergies, Adverse Reactions, Alerts Combined list of allergies from Department of Defense and Veterans Affairs facilities. It does not include entries that were removed or entered in error. Substance Category Reaction Severity Reaction type Status Date Reported Comments Source LIDOCAINE Propensity to adverse reactions to drug (finding) Itching MODERATE active 2 [facility] NOVOCAIN Propensity to adverse reactions to drug (finding) Feeling agitated active 8 [facility] PROCAINE Propensity to adverse reactions to drug (finding) active 2 [facility] Immunizations Combined list of available immunizations from the Department of Defense and Veterans Affairs facilities. Immunization Series Date Given Administered By Site Reaction Lot Number CVX Code Drug Clinical Sociologist Status Comments Source COVID-19 (MODERNA), MRNA, LNP-S, PF, 50 MCG/0.5 ML (AGES 12+ YEARS) 7 2023 ALMA MAHER LEFT DELTO ID [id number] 312 complet ed [facility] INFLUENZA, HIGH-DOSE, TRIVALENT, PF 2023 ALMA MAHER LEFT DELTO ID [id number] 135 complet ed [facility] RSV, BIVALENT, PROTEIN SUBUNIT RSVPREF, DILUENT RECONSTITUTED , 0.5 ML, PF 1 2023 GRETCHEN ANDRADE E LEFT DELTO ID [id number] 305 complet ed [facility] COVID-19 (MODERNA), MRNA, LNP-S, PF, 50 MCG/0.5 ML (AGES 12+ YEARS) 1 2023 GRETCHEN ANDRADE E LEFT DELTO ID [id number] 312 complet ed [facility] INFLUENZA, HIGH-DOSE, QUADRIVALENT 2022 JERRI SHAIKH ER M LEFT DELTO ID [id number] 197 complet ed [facility] COVID-19 (MODERNA), MRNA, LNP-S, BIVALENT BOOSTER, PF, 50 MCG/0.5 ML OR 25MCG/0.25 ML DOSE 2021 JERRI SHAIKH ER M LEFT DELTO ID [id number] 229 complet ed [facility] INFLUENZA VACCINE, QUADRIVALENT, ADJUVANTED 2021 205 complet ed [facility] COVID-19 (MODERNA), MRNA, LNP-S, PF, 100 MCG/0.5ML DOSE OR 50 MCG/0.25ML DOSE 3 2021 207 complet ed MOD; [id number] ; 2 [facility] PNEUMOCOCCAL CONJUGATE PCV20, POLYSACCHARID E PCR604 CONJUGATE, ADJUVANT, PF 2021 216 complet ed [facility] COVID-19 (MODERNA), MRNA, LNP-S, PF, 100 MCG OR 50 MCG DOSE 3 2020 207 complet ed MOD; [id number]; 2 [facility] INFLUENZA, UNSPECIFIED FORMULATION 2020 88 complet ed [facility] TDAP 2020 115 complet ed [facility] COVID-19 (MODERNA), MRNA, LNP-S, PF, 100 MCG/0.5 ML DOSE 2 2020 207 complet ed MOD; [id number]; 1 [facility] COVID-19 (MODERNA), MRNA, LNP-S, PF, 100 MCG/0.5 ML DOSE 1 2020 207 complet ed MOD; [id number]; 1 [facility] [...] DOSE SEASONAL 2017 135 complet ed [facility] Administe red by: ARLET BOLTON (ZDM=[id number]). Partner 0 Lot#: [id number] Mfr: [employer]; Dosage: 0.5 [facility] PNEUMOCOCCAL POLYSACCHARID E PPV23 2016 33 complet ed Partner: [facility]. Administe red by: ARLET BOLTON (GID=[id number]). Partner 0 Lot#: [id number] Mfr: [employer]; Dosage: 0.5 [facility] INFLUENZA, HIGH DOSE SEASONAL 2016 135 complet ed Partner: [facility]. Administe red by: ARLET BOLTON (ZPW=[phone]). Partner 0 Lot#: [id number] Mfr: [employer]; Dosage: 0.5 [facility] [...] Apr 04, 2024 05:53 PM Reporting Lab: [facility] [address] Performing Lab: [facility] [address] [facility] BASIC METABOLI C PANEL (fasting ) GLUCOSE [MASS/VOLU ME] IN SERUM OR PLASMA 93 mg/dL 65 - 100 04/07 Specimen Type: SERUM No comment entered. Ordering Provider: JAMILA BARRON Report Released Date/Time: Apr 04, 2024 05:53 PM Reporting Lab: [facility] [address] Performing Lab: [facility] [address] [facility] BASIC METABOLI C PANEL (fasting ) SODIUM [MOLES/VOL UME] IN SERUM OR PLASMA 139 mmol/L 135 - 145 04/07 Specimen Type: SERUM No comment entered. Ordering Provider: JAMILA BARRON Report Released Date/Time: Apr 04, 2024 05:53 PM Reporting Lab: [facility] [address] Performing Lab: [facility] [address] [facility]N [facility]USE [facility] BASIC METABOLI C PANEL (fasting ) POTASSIUM [MOLES/VOL UME] IN SERUM OR PLASMA 3.9 mmol/L 3.5 - 5.0 04/07 Specimen Type: SERUM No comment entered. Ordering Provider: JAMILA BARRON Report Released Date/Time: Apr 04, 2024 05:53 PM Reporting Lab: [facility] [place] [facility] [address] [facility] [address] Performing Lab: [facility] [place] [facility] [address] [facility] [address] [facility] BASIC METABOLI C PANEL (fasting ) CHLORIDE [MOLES/VOL UME] IN SERUM OR PLASMA 102 mmol/L 100 - 110 04/07 Specimen Type: SERUM No comment entered. Ordering Provider: JAMILA BARRON Report Released Date/Time: Apr 04, 2024 05:53 PM Reporting Lab: [facility] [place] [facility] [address] [facility] [address] Performing Lab: [facility]ENTER[facility]ETS [facility] [address] [facility] [address] [facility] W[facility]N [facility] BASIC METABOLI C PANEL (fasting ) CARBON DIOXIDE, TOTAL [MOLES/VOL UME] IN SERUM OR PLASMA 26 meq/L 20 - 30 04/07 Specimen Type: SERUM No comment entered. Ordering Provider: JAMILA BARRON Report Released Date/Time: Apr 04, 2024 05:53 PM Reporting Lab: [facility] [place] [facility] [address] [facility] [address] Performing Lab: [place] [facility]ENTER[facility]ETS [facility] [address] [facility] [address] [facility] W[facility]N [facility] BASIC METABOLI C PANEL (fasting ) CREATININE [MASS/VOLU ME] IN SERUM OR PLASMA 0.92 mg/dL 0.50 - 1.40 04/07 Specimen Type: SERUM No comment entered. Ordering Provider: JAMILA BARRON Report Released Date/Time: Apr 04, 2024 05:53 PM Reporting Lab: [facility] [place] [facility] [address] [facility] [address] Performing Lab: [facility] [address] [facility] [address] [facility]N MASSUSE [facility] BASIC METABOLI C PANEL (fasting ) GLOMERULAR FILTRATION RATE/1.73 SQ M.PREDICTE D [VOLUME RATE/AREA] IN SERUM, PLASMA OR BLOOD BY CREATININE -BASED FORMULA (CKD-EPI 2020) 82 mL/min 60 04/07 Specimen Type: SERUM No comment entered. Ordering Provider: JAMILA BARRON Report Released Date/Time: Apr 04, 2024 05:53 PM Reporting Lab: [facility] [place] [address] [address] Performing Lab: [facility] [place] [address] [address] [facility] [facility] CBC AND DIFF (AUTO) LEUKOCYTES [#/VOLUME] IN BLOOD BY AUTOMATED COUNT 7.77 10*3/uL 4.50 - 11.00 04/07 Specimen Type: BLOOD No comment entered. Ordering Provider: JAMILA BARRON Report Released Date/Time: Apr 04, 2024 05:53 PM Reporting Lab: [facility] [place] [address] [address] Performing Lab: [facility] [place] [address] [address] [facility] [place] [facility] CBC AND DIFF (AUTO) ERYTHROCYT ES [#/VOLUME] IN BLOOD BY AUTOMATED COUNT 4.29 10*6/uL 4.23 - 5.66 04/07 Specimen Type: BLOOD No comment entered. Ordering Provider: JAMILA BARRON Report Released Date/Time: Apr 04, 2024 05:53 PM Reporting Lab: [facility] [place] [address] [address] Performing Lab: [facility] [place] [address] [address] [facility] [place] [facility] CBC AND DIFF (AUTO) HEMOGLOBIN [MASS/VOLU ME] IN BLOOD 14.2 g/dL 12.8 - 17 04/07 Specimen Type: BLOOD No comment entered. Ordering Provider: JAMILA BARRON Report Released Date/Time: Apr 04, 2024 05:53 PM Reporting Lab: [facility] [place] [address] [address] Performing Lab: [facility] [address] [facility] [address] [facility] [place] [facility] CBC AND DIFF (AUTO) HEMATOCRIT [VOLUME FRACTION] OF BLOOD BY AUTOMATED COUNT 41.1 39.2 - 50.4 04/07 Specimen Type: BLOOD No comment entered. Ordering Provider: JAMILA BARRON Report Released Date/Time: Apr 04, 2024 05:53 PM Reporting Lab: [facility] [place] [facility] [address] [facility] [address] Performing Lab: [facility] [place] [facility] [address] [facility] [address] [facility] [place] [facility] CBC AND DIFF (AUTO) MCV [ENTITIC VOLUME] BY AUTOMATED COUNT 95.8 fL 82 - 99 04/07 Specimen Type: BLOOD No comment entered. Ordering Provider: JAMILA BARRON Report Released Date/Time: Apr 04, 2024 05:53 PM Reporting Lab: [facility] [place] [facility] [address] [facility] [address] Performing Lab: [facility] [place] [address] [address] [facility] [place] [facility] CBC AND DIFF (AUTO) MCHC [MASS/VOLU ME] BY AUTOMATED COUNT 34.5 g/dL 30.8 - 35.1 04/07 Specimen Type: BLOOD No comment entered. Ordering Provider: JAMILA BARRON Report Released Date/Time: Apr 04, 2024 05:53 PM Reporting Lab: [facility] [place] [facility] [address] [facility] [address] Performing Lab: [facility] [place] [facility] [address] [facility] [address] [facility] [place] [facility] CBC AND DIFF (AUTO) PLATELETS [#/VOLUME] IN BLOOD BY AUTOMATED COUNT 184 10*3/uL 140 - 360 04/07 Specimen Type: BLOOD No comment entered. Ordering Provider: JAMILA BARRON Report Released Date/Time: Apr 04, 2024 05:53 PM Reporting Lab: [facility] [place] [address] [address] Performing Lab: [facility] [place] [facility] [address] [facility] [address] [facility] [place] [facility] CBC AND DIFF (AUTO) ERYTHROCYT E DISTRIBUTI ON WIDTH [RATIO] BY AUTOMATED COUNT 13.1 12.0 - 16.0 04/07 Specimen Type: BLOOD No comment entered. Ordering Provider: JAMILA BARRON Report Released Date/Time: Apr 04, 2024 05:53 PM Reporting Lab: [facility] [place] [facility] [address] [facility] [address] Performing Lab: [facility] [place] [facility] [address] [facility] [address] [facility] CBC AND DIFF (AUTO) MONOCYTES [#/VOLUME] IN BLOOD BY AUTOMATED COUNT 0.98 10*3/uL 0.30 - 1.10 04/07 Specimen Type: BLOOD No comment entered. Ordering Provider: JAMILA BARRON Report Released Date/Time: Apr 04, 2024 05:53 PM Reporting Lab: [facility] [place] [facility] [address] [facility] [address] Performing Lab: [facility] [place] [facility] [address] [facility] [address] [facility] [place] CBC AND DIFF (AUTO) MCH [ENTITIC MASS] BY AUTOMATED COUNT 33.1 pg 26.2 - 32.6 04/07 H Specimen Type: BLOOD No comment entered. Ordering Provider: JAMILA BARRON Report Released Date/Time: Apr 04, 2024 05:53 PM Reporting Lab: [facility] [place] [facility] [address] [facility] [address] Performing Lab: [facility] [place] [address] [address] [facility] [place] [facility] CBC AND DIFF (AUTO) NEUTROPHIL S/100 LEUKOCYTES IN BLOOD BY AUTOMATED COUNT 52.3 43.7 - 75.8 04/07 Specimen Type: BLOOD No comment entered. Ordering Provider: JAMILA BARRON Report Released Date/Time: Apr 04, 2024 05:53 PM Reporting Lab: [facility] [address] [facility] [address] Performing Lab: [facility] [address] [facility] [address] [facility] CBC AND DIFF (AUTO) LYMPHOCYTE S/100 LEUKOCYTES IN BLOOD BY AUTOMATED COUNT 31.7 14.0 - 42.3 04/07 Specimen Type: BLOOD No comment entered. Ordering Provider: JAMILA BARRON Report Released Date/Time: Apr 04, 2024 05:53 PM Reporting Lab: [facility] [place] [facility] [address] [facility] [address] Performing Lab: [facility] [place] [facility] [address] [facility] [address] [facility] CBC AND DIFF (AUTO) MONOCYTES/ 100 LEUKOCYTES IN BLOOD BY AUTOMATED COUNT 12.6 5.1 - 13.7 04/07 Specimen Type: BLOOD No comment entered. Ordering Provider: JAMILA BARRON Report Released Date/Time: Apr 04, 2024 05:53 PM Reporting Lab: [facility] [place] [facility] [address] [facility] [address] Performing Lab: [facility] [place] [facility] [address] [facility] [address] [facility] CBC AND DIFF (AUTO) EOSINOPHIL S/100 LEUKOCYTES IN BLOOD BY AUTOMATED COUNT 2.3 0.4 - 6.8 04/07 Specimen Type: BLOOD No comment entered. Ordering Provider: JAMILA BARRON Report Released Date/Time: Apr 04, 2024 05:53 PM Reporting Lab: [facility] [address] [facility] [address] Performing Lab: [facility] [place] [facility] [address] [facility] [address] [facility] CBC AND DIFF (AUTO) BASOPHILS/ 100 LEUKOCYTES IN BLOOD BY AUTOMATED COUNT 0.6 0.1 - 2.0 04/07 Specimen Type: BLOOD No comment entered. Ordering Provider: JAMILA BARRON Report Released Date/Time: Apr 04, 2024 05:53 PM Reporting Lab: [facility] [address] [facility] [address] Performing Lab: [facility] [place] [address] [facility] [address] [facility] CBC AND DIFF (AUTO) NEUTROPHIL S [#/VOLUME] IN BLOOD BY AUTOMATED COUNT 4.06 10*3/uL 2.20 - 7.60 04/07 Specimen Type: BLOOD No comment entered. Ordering Provider: JAMILA BARRON Report Released Date/Time: Apr 04, 2024 05:53 PM Reporting Lab: [facility] [place] [facility] [address] [facility] [address] Performing Lab: [facility] [place] [address] [address] [facility] CBC AND DIFF (AUTO) LYMPHOCYTE S [#/VOLUME] IN BLOOD BY AUTOMATED COUNT 2.46 10*3/uL 1.00 - 3.20 04/07 Specimen Type: BLOOD No comment entered. Ordering Provider: JAMILA BARRON Report Released Date/Time: Apr 04, 2024 05:53 PM Reporting Lab: [facility] [place] [facility] [address] [facility] [address] Performing Lab: [facility] [place] [facility] [address] [facility] [address] [facility] CBC AND DIFF (AUTO) EOSINOPHIL S [#/VOLUME] IN BLOOD BY AUTOMATED COUNT 0.18 10*3/uL 0.03 - 0.44 04/07 Specimen Type: BLOOD No comment entered. Ordering Provider: JAMILA BARRON Report Released Date/Time: Apr 04, 2024 05:53 PM Reporting Lab: [facility] [place] [facility] [address] [facility] [address] Performing Lab: [facility] [place] [facility] [address] [place] [address] [facility] [place] [facility] CBC AND DIFF (AUTO) BASOPHILS [#/VOLUME] IN BLOOD BY AUTOMATED COUNT 0.05 10*3/uL 0.01 - 0.13 04/07 Specimen Type: BLOOD No comment entered. Ordering Provider: JAMILA BARRON Report Released Date/Time: Apr 04, 2024 05:53 PM Reporting Lab: [facility] [place] [address] [address] Performing Lab: [facility] [place] [address] [address] [facility] CBC AND DIFF (AUTO) IMMATURE GRANULOCYT ES/100 LEUKOCYTES IN BLOOD BY AUTOMATED COUNT 0.5 0.0 - 0.7 04/07 Specimen Type: BLOOD No comment entered. Ordering Provider: JAMILA BARRON Report Released Date/Time: Apr 04, 2024 05:53 PM Reporting Lab: [facility] [place] [address] [address] Performing Lab: [facility] [place] [address] [address] [facility] [place] [facility] CBC AND DIFF (AUTO) IMMATURE GRANULOCYT ES [#/VOLUME] IN BLOOD 0.04 10*3/uL 0.00 - 0.06 04/07 Specimen Type: BLOOD No comment entered. Ordering Provider: JAMILA BARRON Report Released Date/Time: Apr 04, 2024 05:53 PM Reporting Lab: [facility] [place] [address] [address] Performing Lab: [facility] [place] [address] [address] [facility] [place] [facility] CBC AND DIFF (AUTO) NRBC % 0.0 0.0 - 0.0 04/07 Specimen Type: BLOOD No comment entered. Ordering Provider: JAMILA BARRON Report Released Date/Time: Apr 04, 2024 05:53 PM Reporting Lab: [facility] [place] [address] [address] Performing Lab: [facility] [place] [facility] [address] [facility] [address] [facility] [place] [facility] CBC AND DIFF (AUTO) NRBC, ABS 0.00 10*3/uL 0.00 - 0.00 04/07 Specimen Type: BLOOD No comment entered. Ordering Provider: JAMILA BARRON Report Released Date/Time: Apr 04, 2024 05:53 PM Reporting Lab: [facility] [place] [facility] [address] [facility] [address] Performing Lab: [facility] [place] [facility] [address] [facility] [address] [facility] [place] [facility] LIPID PANEL FASTING CHOLESTERO L [MASS/VOLU ME] IN SERUM OR PLASMA 139 mg/dL 04/07 Specimen Type: SERUM No comment entered. Ordering Provider: JAMILA BARRON Report Released Date/Time: Apr 04, 2024 05:53 PM Reporting Lab: [facility] [place] [facility] [address] [facility] [address] Performing Lab: [facility] [place] [address] [address] [facility] LIPID PANEL FASTING TRIGLYCERI DE [MASS/VOLU ME] IN SERUM OR PLASMA 136 mg/dL 0 - 150 04/07 Specimen Type: SERUM No comment entered. Ordering Provider: JAMILA BARRON Report Released Date/Time: Apr 04, 2024 05:53 PM Reporting Lab: [facility] [place] [facility] [address] [facility] [phone] Performing Lab: [facility] [place] [address] [address] [facility] [place] [facility] LIPID PANEL FASTING CHOLESTERO L IN LDL [MASS/VOLU ME] IN SERUM OR PLASMA BY CALCULATIO N 72 mg/dL 0 - 129 04/07 Specimen Type: SERUM No comment entered. Ordering Provider: JAMILA BARRON Report Released Date/Time: Apr 04, 2024 05:53 PM Reporting Lab: [facility] [place] [address] [place] [address] Performing Lab: [facility] [place] [facility] [address] [facility] [address] [facility] [place] [facility] LIPID PANEL FASTING CHOLESTERO L.TOTAL/CH OLESTEROL IN HDL [MASS RATIO] IN SERUM OR PLASMA 3.5 04/07 Specimen Type: SERUM No comment entered. Ordering Provider: JAMILA BARRON Report Released Date/Time: Apr 04, 2024 05:53 PM Reporting Lab: [facility] [place] [facility] [address] [facility] [address] Performing Lab: [facility] [place] [facility] [address] [facility] [address] [facility] [place] [facility] LIPID PANEL FASTING CHOLESTERO L IN HDL [MASS/VOLU ME] IN SERUM OR PLASMA 40 mg/dL 40 - 60 04/07 Specimen Type: SERUM No comment entered. Ordering Provider: JAMILA BARRON Report Released Date/Time: Apr 04, 2024 05:53 PM Reporting Lab: [facility] [place] [facility] [address] [facility] [address] Performing Lab: [facility] [place] [facility] [address] [facility] [address] [facility] LIVER FUNCTION PROTEIN [MASS/VOLU ME] IN SERUM OR PLASMA 6.8 g/dL 6.0 - 8.3 04/07 Specimen Type: SERUM No comment entered. Ordering Provider: JAMILA BARRON Report Released Date/Time: Apr 04, 2024 05:53 PM Reporting Lab: [facility] [place] [facility] [address] [facility] [address] Performing Lab: [facility] [place] [facility] [address] [facility] [address] [facility] [place] [facility] LIVER FUNCTION ALBUMIN [MASS/VOLU ME] IN SERUM OR PLASMA 4.0 g/dL 3.5 - 5.0 04/07 Specimen Type: SERUM No comment entered. Ordering Provider: JAMILA BARRON Report Released Date/Time: Apr 04, 2024 05:53 PM Reporting Lab: [facility] [place] [facility] [address] [facility] [address] Performing Lab: [facility] [place] [facility] [address] [facility] [address] [facility] [place] [facility] LIVER FUNCTION ALKALINE PHOSPHATAS E [ENZYMATIC ACTIVITY/V OLUME] IN SERUM OR PLASMA 118 U/L 40 - 150 04/07 Specimen Type: SERUM No comment entered. Ordering Provider: JAMILA BARRON Report Released Date/Time: Apr 04, 2024 05:53 PM Reporting Lab: [facility] [place] [facility] [address] [facility] [address] Performing Lab: [facility] [place] [facility] [address] [facility] [address] [facility] [place] [facility] LIVER FUNCTION ASPARTATE AMINOTRANS FERASE [ENZYMATIC ACTIVITY/V OLUME] IN SERUM OR PLASMA 30 U/L 5 - 34 04/07 Specimen Type: SERUM No comment entered. Ordering Provider: JAMILA BARRON Report Released Date/Time: Apr 04, 2024 05:53 PM Reporting Lab: [facility] [place] [facility] [address] [facility] [address] Performing Lab: [facility] [place] [facility] [address] [facility] [address] [facility] [place] [facility] LIVER FUNCTION ALANINE AMINOTRANS FERASE [ENZYMATIC ACTIVITY/V OLUME] IN SERUM OR PLASMA 23 U/L 04/07 Specimen Type: SERUM No comment entered. Ordering Provider: JAMILA BARRON Report Released Date/Time: Apr 04, 2024 05:53 PM Reporting Lab: [facility] [place] [facility] [address] [facility] [address] Performing Lab: [facility] [place] [facility] [address] [facility] [address] [facility] [place] [facility] LIVER FUNCTION BILIRUBIN. TOTAL [MASS/VOLU ME] IN SERUM OR PLASMA 1.0 mg/dL 0.2 - 1.2 04/07 Specimen Type: SERUM No comment entered. Ordering Provider: JAMILA BARRON Report Released Date/Time: Apr 04, 2024 05:53 PM Reporting Lab: [facility] [place] [facility] [address] [facility] [address] Performing Lab: [facility] [place] [facility] [address] [facility] [address] [facility] [place] [facility] TSH THYROTROPI N [UNITS/VOL UME] IN SERUM OR PLASMA 2.34 u[IU]/mL 0.35 - 5.00 04/07 Specimen Type: SERUM No comment entered. Ordering Provider: JAMILA BARRON Report Released Date/Time: Apr 04, 2024 05:53 PM Reporting Lab: [facility] [place] [address] [address] Performing Lab: [facility] [place] [address] [address] [facility] [place] [facility] URINALYS IS CLEAN CATCH COLOR OF URINE Yellow 04/07 Specimen Type: URINE Comment: If Glucose = >500 and Ketones are positive, please alert the Physician. Ordering Provider: JAMILA BARRON Report Released Date/Time: Apr 04, 2024 05:53 PM Reporting Lab: [facility] [place] [address] [address] Performing Lab: [facility] [place] [address] [address] [facility] [place] [facility] URINALYS IS CLEAN CATCH APPEARANCE OF URINE Clear 04/07 Specimen Type: URINE Comment: If Glucose = >500 and Ketones are positive, please alert the Physician. Ordering Provider: JAMILA BARRON Report Released Date/Time: Apr 04, 2024 05:53 PM Reporting Lab: [facility] [place] [facility] [address] [facility] [address] Performing Lab: [facility] [place] [address] [address] [facility] [place] [facility] URINALYS IS CLEAN CATCH GLUCOSE [MASS/VOLU ME] IN URINE Normalmg /dL 04/07 Specimen Type: URINE Comment: If Glucose = >500 and Ketones are positive, please alert the Physician. Ordering Provider: JAMILA BARRON Report Released Date/Time: Apr 04, 2024 05:53 PM Reporting Lab: [facility] [place] [address] [address] Performing Lab: [facility] [place] [address] [address] [facility] [place] [facility] URINALYS IS CLEAN CATCH KETONES [MASS/VOLU ME] IN URINE BY TEST STRIP NEGATIVE mg/dL 04/07 Specimen Type: URINE Comment: If Glucose = >500 and Ketones are positive, please alert the Physician. Ordering Provider: JAMILA BARRON Report Released Date/Time: Apr 04, 2024 05:53 PM Reporting Lab: [facility] [address] [address] Performing Lab: [facility] [place] [address] [address] [facility] [place] URINALYS IS CLEAN CATCH ERYTHROCYT ES [PRESENCE] IN URINE SEDIMENT BY LIGHT MICROSCOPY NEGATIVE mg/dL 04/07 Specimen Type: URINE Comment: If Glucose = >500 and Ketones are positive, please alert the Physician. Ordering Provider: JAMILA BARRON Report Released Date/Time: Apr 04, 2024 05:53 PM Reporting Lab: [facility] [place] [address] [address] Performing Lab: [facility] [place] [address] [address] [facility] [place] [facility] URINALYS IS CLEAN CATCH PROTEIN [MASS/VOLU ME] IN URINE BY TEST STRIP 10 mg/dL 04/07 Specimen Type: URINE Comment: If Glucose = >500 and Ketones are positive, please alert the Physician. Ordering Provider: JAMILA BARRON Report Released Date/Time: Apr 04, 2024 05:53 PM Reporting Lab: [facility] [place] [address] [address] Performing Lab: [facility] [place] [facility] [address] [facility] [address] [facility] [place] [facility] URINALYS IS CLEAN CATCH NITRITE [PRESENCE] IN URINE NEGATIVE mg/dL 04/07 Specimen Type: URINE Comment: If Glucose = >500 and Ketones are positive, please alert the Physician. Ordering Provider: JAMILA BARRON Report Released Date/Time: Apr 04, 2024 05:53 PM Reporting Lab: [facility] [place] [address] [address] Performing Lab: [facility] [place] [address] [address] [facility] [place] [facility] URINALYS IS CLEAN CATCH BILIRUBIN. TOTAL [PRESENCE] IN URINE NEGATIVE mg/dL 04/07 Specimen Type: URINE Comment: If Glucose = >500 and Ketones are positive, please alert the Physician. Ordering Provider: JAMILA BARRON Report Released Date/Time: Apr 04, 2024 05:53 PM Reporting Lab: [facility] [place] [address] [address] Performing Lab: [facility] [place] [address] [address] [facility] [place] [facility] URINALYS IS CLEAN CATCH SPECIFIC GRAVITY OF URINE BY REFRACTOME TRY 1.024 1.016 - 1.022 04/07 H Specimen Type: URINE Comment: If Glucose = >500 and Ketones are positive, please alert the Physician. Ordering Provider: JAMILA BARRON Report Released Date/Time: Apr 04, 2024 05:53 PM Reporting Lab: [facility] [place] [address] [address] Performing Lab: [facility] [place] [address] [address] [facility] [place] [facility] URINALYS IS CLEAN CATCH PH OF URINE BY TEST STRIP 7.0 5.0 - 9.0 04/07 Specimen Type: URINE Comment: If Glucose = >500 and Ketones are positive, please alert the Physician. Ordering Provider: JAMILA BARRON Report Released Date/Time: Apr 04, 2024 05:53 PM Reporting Lab: [facility] [place] [facility] [address] [facility] [address] Performing Lab: [facility] [place] [facility] [address] [facility] [address] [facility]TR[facility] [place] [facility] URINALYS IS CLEAN CATCH UROBILINOG EN [MASS/VOLU ME] IN URINE BY TEST STRIP Normalmg /dL <2.0 - 2.0 04/07 Specimen Type: URINE Comment: If Glucose = >500 and Ketones are positive, please alert the Physician. Ordering Provider: JAMILA BARRON Report Released Date/Time: Apr 04, 2024 05:53 PM Reporting Lab: [facility]TRN [place] [address] Performing Lab: [facility]TR[facility] [address] [address] [facility]ITALN [facility]IG[facility] URINALYS IS CLEAN CATCH LEUKOCYTE ESTERASE [PRESENCE] IN URINE BY TEST STRIP NEGATIVE 04/07 Specimen Type: URINE Comment: If Glucose = >500 and Ketones are positive, please alert the Physician. Ordering Provider: JAMILA BARRON Report Released Date/Time: Apr 04, 2024 05:53 PM Reporting Lab: [facility]TR[facility] [address] [address] Performing Lab: [facility] [place] [address] [address] [facility]TR[facility] [place] [facility] BASIC METABOLI C PANEL (fasting ) UREA NITROGEN [MASS/VOLU ME] IN SERUM OR PLASMA 16 mg/dL 7 - 10/07 Specimen Type: SERUM No comment entered. Ordering Provider: JAMILA BARRON Report Released Date/Time: Oct 05, 2023 11:58 PM Reporting Lab: [facility]TR[facility] CENTERUSE[address] [address] Performing Lab: [facility]ITALRCOMMUNITY HOSPITALN [facility] CENTERUSE[address] [address] [facility] [place] [facility] BASIC METABOLI C PANEL (fasting ) GLUCOSE [MASS/VOLU ME] IN SERUM OR PLASMA 102 mg/dL 65 - 100 10/07 H Specimen Type: SERUM No comment entered. Ordering Provider: JAMILA BARRON Report Released Date/Time: Oct 05, 2023 11:58 PM Reporting Lab: [facility] [place] [facility] [address] [facility] [address] Performing Lab: [facility] [place] [facility] [address] [facility] [address] [facility] [place] [facility] BASIC METABOLI C PANEL (fasting ) SODIUM [MOLES/VOL UME] IN SERUM OR PLASMA 143 mmol/L 135 - 145 10/07 Specimen Type: SERUM No comment entered. Ordering Provider: JAMILA BARRON Report Released Date/Time: Oct 05, 2023 11:58 PM Reporting Lab: [facility] [place] [address] [address] Performing Lab: [facility] [place] [address] [address] [facility] [place] [facility] BASIC METABOLI C PANEL (fasting ) POTASSIUM [MOLES/VOL UME] IN SERUM OR PLASMA 4.4 mmol/L 3.5 - 5.0 10/07 Specimen Type: SERUM No comment entered. Ordering Provider: JAMILA BARRON Report Released Date/Time: Oct 05, 2023 11:58 PM Reporting Lab: [facility] [place] [facility] [address] [facility] [address] Performing Lab: [facility] [place] [facility] [address] [facility] [address] [facility] [place] [facility] BASIC METABOLI C PANEL (fasting ) CHLORIDE [MOLES/VOL UME] IN SERUM OR PLASMA 106 mmol/L 100 - 110 10/07 Specimen Type: SERUM No comment entered. Ordering Provider: JAMILA BARRON Report Released Date/Time: Oct 05, 2023 11:58 PM Reporting Lab: [facility] [place] [facility] [address] [facility] [address] Performing Lab: [facility] [place] [facility] [address] [facility] [address] [facility] [place] [facility] BASIC METABOLI C PANEL (fasting ) CARBON DIOXIDE, TOTAL [MOLES/VOL UME] IN SERUM OR PLASMA 26 meq/L 20 - 30 10/07 Specimen Type: SERUM No comment entered. Ordering Provider: JAMILA BARRON Report Released Date/Time: Oct 05, 2023 11:58 PM Reporting Lab: [facility] [place] [facility] [address] [facility] [address] Performing Lab: [facility] [place] [facility] [address] [facility] [address] [facility] [place] [facility] BASIC METABOLI C PANEL (fasting ) CREATININE [MASS/VOLU ME] IN SERUM OR PLASMA 1.01 mg/dL 0.50 - 1.40 10/07 Specimen Type: SERUM No comment entered. Ordering Provider: JAMILA BARRON Report Released Date/Time: Oct 05, 2023 11:58 PM Reporting Lab: [facility] [place] [address] [address] Performing Lab: [facility] [place] [address] [address] [facility]USE [facility] BASIC METABOLI C PANEL (fasting ) GLOMERULAR FILTRATION RATE/1.73 SQ M.PREDICTE D [VOLUME RATE/AREA] IN SERUM, PLASMA OR BLOOD BY CREATININE -BASED FORMULA (CKD-EPI 2020) 73 mL/min 60 10/07 Specimen Type: SERUM No comment entered. Ordering Provider: JAMILA BARRON Report Released Date/Time: Oct 05, 2023 11:58 PM Reporting Lab: [facility] [place] [facility] [address] [facility] [address] Performing Lab: [facility] [place] [address] [address] [facility] [place] [facility] CBC AND DIFF (AUTO) LEUKOCYTES [#/VOLUME] IN BLOOD BY AUTOMATED COUNT 7.99 10*3/uL 4.50 - 11.00 10/07 Specimen Type: BLOOD No comment entered. Ordering Provider: JAMILA BARRON Report Released Date/Time: Oct 05, 2023 11:58 PM Reporting Lab: [facility] [place] [facility] [address] [facility] [address] Performing Lab: [facility] [place] [facility] [address] [facility] [address] [facility] [place] [facility] CBC AND DIFF (AUTO) ERYTHROCYT ES [#/VOLUME] IN BLOOD BY AUTOMATED COUNT 4.47 10*6/uL 4.23 - 5.66 10/07 Specimen Type: BLOOD No comment entered. Ordering Provider: JAMILA BARRON Report Released Date/Time: Oct 05, 2023 11:58 PM Reporting Lab: [facility] [place] [address] [address] Performing Lab: [facility] [place] [facility] [address] [facility] [address] [facility] [place] [facility] CBC AND DIFF (AUTO) HEMOGLOBIN [MASS/VOLU ME] IN BLOOD 14.6 g/dL 12.8 - 17 10/07 Specimen Type: BLOOD No comment entered. Ordering Provider: JAMILA BARRON Report Released Date/Time: Oct 05, 2023 11:58 PM Reporting Lab: [facility] [place] [address] [address] Performing Lab: [facility] [place] [facility] [address] [facility] [address] [facility] [place] [facility] CBC AND DIFF (AUTO) HEMATOCRIT [VOLUME FRACTION] OF BLOOD BY AUTOMATED COUNT 42.7 39.2 - 50.4 10/07 Specimen Type: BLOOD No comment entered. Ordering Provider: JAMILA BARRON Report Released Date/Time: Oct 05, 2023 11:58 PM Reporting Lab: [facility] [place] [facility] [address] [facility] [address] Performing Lab: [facility] [place] [address] [address] [facility] [place] [facility] CBC AND DIFF (AUTO) MCV [ENTITIC VOLUME] BY AUTOMATED COUNT 95.5 fL 82 - 99 10/07 Specimen Type: BLOOD No comment entered. Ordering Provider: JAMILA BARRON Report Released Date/Time: Oct 05, 2023 11:58 PM Reporting Lab: [facility] [place] [facility] [address] [facility] [address] Performing Lab: [facility] [place] [facility] [address] [facility] [address] [facility] [place] [facility] CBC AND DIFF (AUTO) MCHC [MASS/VOLU ME] BY AUTOMATED COUNT 34.2 g/dL 30.8 - 35.1 10/07 Specimen Type: BLOOD No comment entered. Ordering Provider: JAMILA BARRON Report Released Date/Time: Oct 05, 2023 11:58 PM Reporting Lab: [facility] [place] [address] [address] Performing Lab: [facility] [place] [address] [address] [facility] [place] [facility] CBC AND DIFF (AUTO) PLATELETS [#/VOLUME] IN BLOOD BY AUTOMATED COUNT 126 10*3/uL 140 - 360 10/07 L Specimen Type: BLOOD No comment entered. Ordering Provider: JAMILA BARRON Report Released Date/Time: Oct 05, 2023 11:58 PM Reporting Lab: [facility] [place] [address] [address] Performing Lab: [facility] [place] [facility] [address] [facility] [address] [facility] [place] [facility] CBC AND DIFF (AUTO) ERYTHROCYT E DISTRIBUTI ON WIDTH [RATIO] BY AUTOMATED COUNT 12.9 12.0 - 16.0 10/07 Specimen Type: BLOOD No comment entered. Ordering Provider: JAMILA BARRON Report Released Date/Time: Oct 05, 2023 11:58 PM Reporting Lab: [facility] [place] [address] [address] Performing Lab: [facility] [place] [facility] [address] [facility] [address] [facility] [place] [facility] CBC AND DIFF (AUTO) MONOCYTES [#/VOLUME] IN BLOOD BY AUTOMATED COUNT 0.79 10*3/uL 0.30 - 1.10 10/07 Specimen Type: BLOOD No comment entered. Ordering Provider: JAMILA BARRON Report Released Date/Time: Oct 05, 2023 11:58 PM Reporting Lab: [facility] [place] [facility] [address] [facility] [address] Performing Lab: [facility] [place] [facility] [address] [facility] [address] [facility] [place] [facility] CBC AND DIFF (AUTO) MCH [ENTITIC MASS] BY AUTOMATED COUNT 32.7 pg 26.2 - 32.6 10/07 H Specimen Type: BLOOD No comment entered. Ordering Provider: JAMILA BARRON Report Released Date/Time: Oct 05, 2023 11:58 PM Reporting Lab: [facility] [place] [facility] [address] [facility] [address] Performing Lab: [facility] [place] [facility] [address] [facility] [address] [facility] [place] [facility] CBC AND DIFF (AUTO) NEUTROPHIL S/100 LEUKOCYTES IN BLOOD BY AUTOMATED COUNT 54.5 43.7 - 75.8 10/07 Specimen Type: BLOOD No comment entered. Ordering Provider: JAMILA BARRON Report Released Date/Time: Oct 05, 2023 11:58 PM Reporting Lab: [facility] [place] [facility] [address] [facility] [address] Performing Lab: [facility] [place] [facility] [address] [facility] [address] [facility] [place] [facility] CBC AND DIFF (AUTO) LYMPHOCYTE S/100 LEUKOCYTES IN BLOOD BY AUTOMATED COUNT 33.3 14.0 - 42.3 10/07 Specimen Type: BLOOD No comment entered. Ordering Provider: JAMILA BARRON Report Released Date/Time: Oct 05, 2023 11:58 PM Reporting Lab: [facility] [place] [facility] [address] [facility] [address] Performing Lab: [facility] [place] [facility] [address] [facility] [address] [facility] [place] [facility] CBC AND DIFF (AUTO) MONOCYTES/ 100 LEUKOCYTES IN BLOOD BY AUTOMATED COUNT 9.9 5.1 - 13.7 10/07 Specimen Type: BLOOD No comment entered. Ordering Provider: JAMILA BARRON Report Released Date/Time: Oct 05, 2023 11:58 PM Reporting Lab: [facility] [place] [facility] [address] [facility] [address] Performing Lab: [facility] [facility] [address] [facility] [address] [facility] [place] [facility] CBC AND DIFF (AUTO) EOSINOPHIL S/100 LEUKOCYTES IN BLOOD BY AUTOMATED COUNT 1.4 0.4 - 6.8 10/07 Specimen Type: BLOOD No comment entered. Ordering Provider: JAMILA BARRON Report Released Date/Time: Oct 05, 2023 11:58 PM Reporting Lab: [facility] [place] [facility] [place] [address] [facility] [phone] Performing Lab: [facility] [place] [facility] [place] [address] [facility] [address] [facility] [place] [facility] [place] CBC AND DIFF (AUTO) BASOPHILS/ 100 LEUKOCYTES IN BLOOD BY AUTOMATED COUNT 0.6 0.1 - 2.0 10/07 Specimen Type: BLOOD No comment entered. Ordering Provider: JAMILA BARRON Report Released Date/Time: Oct 05, 2023 11:58 PM Reporting Lab: [facility] [place] [facility] [place] [address] [facility] [phone] Performing Lab: [facility] [place] [facility] [place] [address] [facility] [phone] [facility] [place] [facility] [place] CBC AND DIFF (AUTO) NEUTROPHIL S [#/VOLUME] IN BLOOD BY AUTOMATED COUNT 4.36 10*3/uL 2.20 - 7.60 10/07 Specimen Type: BLOOD No comment entered. Ordering Provider: JAMILA BARRON Report Released Date/Time: Oct 05, 2023 11:58 PM Reporting Lab: [facility] [place] [facility] [address] [facility] [address] Performing Lab: [facility] [place] [facility] [address] [facility] [address] [facility] [place] [facility] CBC AND DIFF (AUTO) LYMPHOCYTE S [#/VOLUME] IN BLOOD BY AUTOMATED COUNT 2.66 10*3/uL 1.00 - 3.20 10/07 Specimen Type: BLOOD No comment entered. Ordering Provider: JAMILA BARRON Report Released Date/Time: Oct 05, 2023 11:58 PM Reporting Lab: [facility] [place] [facility] [address] [facility] [phone] Performing Lab: [facility] [place] [place] [facility] [place] [address] [facility] [address] [facility] [place] [facility] CBC AND DIFF (AUTO) EOSINOPHIL S [#/VOLUME] IN BLOOD BY AUTOMATED COUNT 0.11 10*3/uL 0.03 - 0.44 10/07 Specimen Type: BLOOD No comment entered. Ordering Provider: JAMILA BARRON Report Released Date/Time: Oct 05, 2023 11:58 PM Reporting Lab: [facility] [place] [facility] [address] [facility] [address] Performing Lab: [facility] [address] [place] [address] [facility] CBC AND DIFF (AUTO) BASOPHILS [#/VOLUME] IN BLOOD BY AUTOMATED COUNT 0.05 10*3/uL 0.01 - 0.13 10/07 Specimen Type: BLOOD No comment entered. Ordering Provider: JAMILA BARRON Report Released Date/Time: Oct 05, 2023 11:58 PM Reporting Lab: [facility] [address] [facility] [address] Performing Lab: [facility] [address] [place] [address] [facility] CBC AND DIFF (AUTO) IMMATURE GRANULOCYT ES/100 LEUKOCYTES IN BLOOD BY AUTOMATED COUNT 0.3 0.0 - 0.7 10/07 Specimen Type: BLOOD No comment entered. Ordering Provider: JAMILA BARRON Report Released Date/Time: Oct 05, 2023 11:58 PM Reporting Lab: [facility] [address] [address] Performing Lab: [facility] [address] [facility] [address] [facility] CBC AND DIFF (AUTO) IMMATURE GRANULOCYT ES [#/VOLUME] IN BLOOD 0.02 10*3/uL 0.00 - 0.06 10/07 Specimen Type: BLOOD No comment entered. Ordering Provider: JAMILA BARRON Report Released Date/Time: Oct 05, 2023 11:58 PM Reporting Lab: [facility] [address] [address] Performing Lab: [facility] [address] [address] [facility] LIVER FUNCTION PROTEIN [MASS/VOLU ME] IN SERUM OR PLASMA 6.6 g/dL 6.0 - 8.3 10/07 Specimen Type: SERUM No comment entered. Ordering Provider: JAMILA BARRON Report Released Date/Time: Oct 05, 2023 11:58 PM Reporting Lab: [facility] [address] [address] Performing Lab: [facility] [address] [facility] [address] [facility] LIVER FUNCTION ALBUMIN [MASS/VOLU ME] IN SERUM OR PLASMA 3.8 g/dL 3.5 - 5.0 10/07 Specimen Type: SERUM No comment entered. Ordering Provider: JAMILA BARRON Report Released Date/Time: Oct 05, 2023 11:58 PM Reporting Lab: [facility] [address] [address] Performing Lab: [facility] [address] [facility] [address] [facility] LIVER FUNCTION ALKALINE PHOSPHATAS E [ENZYMATIC ACTIVITY/V OLUME] IN SERUM OR PLASMA 103 U/L 40 - 150 10/07 Specimen Type: SERUM No comment entered. Ordering Provider: JAMILA BARRON Report Released Date/Time: Oct 05, 2023 11:58 PM Reporting Lab: [facility] [address] [facility] [address] Performing Lab: [facility] [address] [facility] [address] [facility] LIVER FUNCTION ASPARTATE AMINOTRANS FERASE [ENZYMATIC ACTIVITY/V OLUME] IN SERUM OR PLASMA 33 U/L 5 - 34 10/07 Specimen Type: SERUM No comment entered. Ordering Provider: JAMILA BARRON Report Released Date/Time: Oct 05, 2023 11:58 PM Reporting Lab: [facility] [address] [facility] [address] Performing Lab: [facility] [address] [facility] [address] [facility] LIVER FUNCTION ALANINE AMINOTRANS FERASE [ENZYMATIC ACTIVITY/V OLUME] IN SERUM OR PLASMA 29 U/L 10/07 Specimen Type: SERUM No comment entered. Ordering Provider: JAMILA BARRON Report Released Date/Time: Oct 05, 2023 11:58 PM Reporting Lab: [facility] [address] [facility] [address] Performing Lab: [facility] [address] [facility] [address] [facility] LIVER FUNCTION BILIRUBIN. TOTAL [MASS/VOLU ME] IN SERUM OR PLASMA 0.7 mg/dL 0.2 - 1.2 10/07 Specimen Type: SERUM No comment entered. Ordering Provider: JAMILA BARRON Report Released Date/Time: Oct 05, 2023 11:58 PM Reporting Lab: [facility] [address] [facility] [address] Performing Lab: [facility] [address] [facility] [address] [facility] TSH THYROTROPI N [UNITS/VOL UME] IN SERUM OR PLASMA 2.46 u[IU]/mL 0.35 - 5.00 10/07 Specimen Type: SERUM No comment entered. Ordering Provider: JAMILA BARRON Report Released Date/Time: Oct 05, 2023 11:58 PM Reporting Lab: [facility] [address] [facility] [address] Performing Lab: [facility] [address] [facility] [address] [facility] Vital [...] months. 2) Encounters from the Department of [facility] facilities going back up to 280 months. 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
RANCHO RODRIGUEZ 04/30 [facility] Out[facility] Encounter [id number] 06/14 [facility] Outpatient Encounter [id number] 06/16 [facility] Out[facility] Encounter [id number] 06/19 [facility] Outpatient Encounter [id number] 06/27 [facility] Outpatient Encounter [id number] 10/08 [facility] OFFICE O/P EST LOW 20 MIN [id number] Diagnos is: ICD-10- CM H67.3 Otitis media in disease s classif ied elsewhe re, bilater al
RICO BARRON RD D 10/15 [facility] OFF/OP EST MAY X REQ PHY/QHP [id number] Diagnos is: ICD-10- CM Z23 Encount er for immuniz ation<b r/> RICO BARRON RD D 10/15 [facility] UNLISTED SPEC DERM SVC/PX [id number] Diagnos is: ICD-10- CM Z13.89 Encount er for screeni ng for other disorde r
GORDON BEAUCHAMP ICA A 10/23 [facility] OFFICE O/P EST SF 10 MIN [id number] Diagnos is: ICD-10- CM R21 Rash and other nonspec ific skin eruptio n
WILEY PASTOR PH J 10/23 [facility] Outpatient Encounter [id number] 10/23 [facility] Out[facility] Encounter [id number] 10/23 [facility] Out[facility] Encounter [id number] 11/20 [facility] Out[facility] Encounter [id number] 11/24 [facility] Out[facility] Encounter [id number] 11/27 [facility] Out[facility] Encounter [id number] 11/28 [facility] Out[facility] Encounter [id number] 11/30 [facility] UNLISTED SPEC DERM SVC/PX [id number] Diagnos is: ICD-10- CM Z13.89 Encount er for screeni ng for other disorde r
GORDON BEAUCHAMP ICA A 12/04 [facility] Encounter [id number] 12/04 [facility] Outpatient Encounter [id number] Diagnos is: ICD-10- CM D48.5 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
Yossi HARRINGTON 12/29 [facility] Out[facility] Encounter [id number] 12/29 [facility] Outpatient Encounter [id number] 01/05 [facility] Outpatient Encounter [id number] 01/09 [facility] Outpatient Encounter [id number] 01/12 [facility] Outpatient Encounter [id number] 01[facility]12 [facility] Outpatient Encounter [id number] 01/12 [facility] Outpatient Encounter [id number] IRASEMA MONTILLA 01/13 [facility] Outpatient Encounter [id number] 01/16 [facility] Outpatient Encounter [id number] 01/19 [facility] Out[facility] Encounter [id number] 01/22 [facility] Outpatient Encounter [id number] 02/02 [facility] ORTHC/PROS TC MGMT SBSQ ENC [id number] Diagnos is: ICD-10- CM M84.472 A Patholo gical fractur e, left ankle, init encntr for fractur e
Thierno HAMPTON 02/02 [facility] Out[facility] Encounter [id number] 02/10 [facility] Outpatient Encounter [id number] 02/13 [facility] Outpatient Encounter [id number] 03/04 [facility] Outpatient Encounter [id number] 03/04 [facility] OFF/OP EST MAY X REQ PHY/QHP [id number] Diagnos is: ICD-10- CM Z71.89 Other specifi ed general counsel ing<br/ > JOSIE KINGSTON 03/05 [facility] OFFICE O/P EST LOW 20 MIN [id number] Diagnos is: ICD-10- CM L60.1 Onychol ysis
PASCUAL STERN 03/05 [facility] OFF/OP EST MAY X REQ PHY/QHP [id number] Diagnos is: ICD-10- CM Z48.01 Encount er for change or removal of surgica l wound dressin g
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
Yossi HARRINGTON 03/31 [facility] Out[facility] Encounter [id number] 04/09 [facility] OFFICE O/P EST LOW 20 MIN [id number] 1. 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
RANCHO RODRIGUEZ 04/28 [facility] CONFORMITY EVALUATION [id number] Diagnos is: ICD-10- CM Z46.1 Encount er for fitting and adjustm ent of hearing aid<br/ > Yossi HARRINGTON 05/05 [facility] Outpatient Encounter [id number] 06/03 [facility] Outpatient Encounter [id number] 06/06 [facility] Social History Combined list of available smoking, tobacco, and other social history from Department of Defense and Veterans Affairs facilities. Social History Type Response Date Comment Sour e Tobacco smoking status NHIS VA-TOBACCO FORMER USER 10/16/2023 [facility] [place] [facility] History of tobacco use VA-TOBACCO QUIT 15 YRS OR MORE 10/16/2023 [facility] [place] [facility] History of tobacco use VA-TOBACCO FORMER USER 07/04/2022 [facility] [place] [facility] History of tobacco use NSG NO TOBACCO USE PAST 30 DAYS 03/27/2022 [place] History of tobacco use NSG NO TOBACCO USE PAST 30 DAYS 03/05/2022 [place] History of tobacco use NSG NO TOBACCO USE PAST 30 DAYS 03/02/2022 [place] History of tobacco use VA-TOBACCO FORMER USER 06/28/2021 [facility] [place] [facility] History of tobacco use VA-TOBACCO FORMER USER 05/26/2020 [facility] [place] [facility] History of tobacco use VA-TOBACCO NEVER USED 05/23/2018 [facility] [place] [facility] Plan of Care List of future care activities from Department of Veterans Affairs facilities. Additional future care activities may be listed in the Assessment and Plan section. Date/Time Care Activity Care Activity Detail Facili ty 08/14/2024 AMBULATORY - MEDICINE AMBULATORY - MEDICI [place] [facility] [place] [facility] 10/07/2024 AMBULATORY - MEDICINE AMBULATORY - MEDICI [place] [facility] [place] [facility] 10/28/2024 AMBULATORY - MEDICINE AMBULATORY - MEDICI [place] [facility] [place] [facility] 06/06/2024 Consult Order [facility] Cons [employer] [facility] [place] [facility] Advance Directives List of completed, amended, or rescinded Advance Directives on record at Department of Veterans Affairs facilities. An actual copy of the Directive is not included. Date Advance Directive Provider Source 02/19/2022 ADVANCE DIRECTIVE JOCE CASTORENA [facility] 11/16/2020 ADVANCE DIRECTIVE BYRON BARRON [facility]
== END 2024-06-19 12:11 | disposition home or self-care (01) ==
LOC: HO.US 12:10
PROVIDERS: PCP Internal Medicine
DX: R60.9 Edema, unspecified (principal); M79.605 Pain in left leg
CPT/HCPCS: 93971

== ENCOUNTER 2024-07-06 08:00 | Outpatient (REF) | payer OTHER, SELFPAY ==
--- NOTE | ~2024-07-06 | XR_ITS ---
EXAMINATION: XR ANKLE LEFT CLINICAL INFORMATION: Pain in left ankle and joints of left foot M25.572. COMPARISON: XR Left ankle 06/19/2024 TECHNIQUE: AP, lateral, and mortise views of the left ankle. FINDINGS: Intact hardware across fracture line of the distal fibula. There is loss of joint space and irregularity of articular surfaces of the talar dome and tibial plafond and combined with extensive surrounding soft tissue swelling and joint effusion raise the possibility of inflammatory or infection process. XR/XR ankle LT min 3V IMPRESSION: 1. Intact hardware across fracture line of the distal fibula. 2. Abnormal irregular articular surface and subarticular radiolucencies of the talar dome and tibial plafond and combined with extensive surrounding soft tissue swelling and joint effusion raise the possibility of inflammatory or infection process. Please correlate with patient's laboratory data, CT scan ankle with contrast could be utilized for further investigation if clinically indicated. (Referring physician staff is being called, by physician staff assistance, to be alerted of the above critical findings and recommendations.) [employer] communication system 07/12/2024 11:06 AM SOFTWARE PROJECT ENGINEER Electronically signed by: Lynne Barroso MD 07/12/2024 12:08 PM PANDA WOMACK
--- OUTSIDE RECORDS SUMMARY | 2024-07-06 08:03 | XMS_ITS | Encounter Summary ---
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 [place] [facility] [place] [facility] [place] Address [address] [place] [address] Care Team Providers Care Environmental Services Supervisor Name Role Phone BYRON BARRON Primary [...] Dec 19, 2007 MEDICAR E SUPPLEM E [id number] NYDIA HUERTA UL PATIENT [employer] MEDICARE SUPPLEMEN YORDAN Dec 19, 2007 MEDICAR E SUPPLEM E [id number] NYDIA HUERTA UL PATIENT [employer] [place] MED[place] SUPPLEMEN YORDAN BANKE RS Dec 19, 2007 NONE [id number] [phone] NYDIA HUERTA UL PATIENT MEDICARE (WNR) MEDICARE (M) PART B Oct 13, 2006 PART B [id number] [phone] NYDIA HUERTA UL PATIENT MEDICARE (WNR) MEDICARE (M) PART B Oct 13, 2006 PART B [id number] DOM[place] UL PATIENT MEDICARE (WNR) MEDICARE (M) PART B Oct 13, 2006 PART B [id number] NYDIA HUERTA PATIENT MEDICARE (WNR) MEDICARE (M) PART B Oct 13, 2006 PART B [id number] [phone] NYDIA HUERTA UL PATIENT MEDICARE (WNR) MEDICARE (M) PART A Sep 13, 2003 PART A [id number] [phone] NYDIA HUERTA UL PATIENT MEDICARE (WNR) MEDICARE (M) PART A Sep 13, 2003 PART A [id number] NYDIA HUERTA UL PATIENT MEDICARE (WNR) MEDICARE (M) PART A Sep 13, 2003 PART A [id number] [phone] NYDIA HUERTA PATIENT MEDICARE (WNR) MEDICARE (M) PART A Sep 13, 2003 PART A [id number] [phone] NYDIA HUERTA PATIENT Selected Encounter This section includes the information on record at [place] for the Encounter. Date/Time Encounter Type Encounter Description Reason Provider Source Feb 03, 2024 01:30 PM ORTHC/PROSTC MGMT SBSQ ENC PHYSICAL THERAPY ICD-10-CM M84.472A Pathological fracture, left ankle, init encntr for fracture ROHAN HAMPTON IN [facility] Encounter Template Text not used by [place] Assessments - Encounter Diagnoses This section includes the primary and secondary diagnoses documented for the Encounter. Date/Time Primary/Secondary Diagnosis Diagnosis Name Provider Source Mar 03, 2024 03:06 PM PRIMARY Pathological fracture, left ankle, init encntr for fracture [facility]OHAN H[facility]PTON [facility] Plan of Treatment: Future Appointments (+ 6 months) and Future Tests (+/- 45 days) The Plan of Treatment section includes future care activities for the patient from all [place] treatmentfacilities. This section includes future appointments and future orders which are active, pending or scheduled. Future Appointments This section includes appointments that were scheduled to occur 6 months from the date of the Encounter, up to a maximum of 20 appointments. The data comes from all [place] treatment facilities. Appointment Date/Time Appointment Type Appointme nt Facility Name Mar 05, 2024 08:00 AM AMBULATORY [facility] MEDICINE [facility] [place] [facility] Mar 05, 2024 09:00 AM AMBULATORY - MEDICINE [facility] [place] [facility] Mar 06, 2024 08:00 AM AMBULATORY - MEDICINE [facility] [place] [facility] Mar 24, 2024 02:00 PM AMBULATORY - MEDICINE [facility] [place] [facility] Mar 31, 2024 09:30 AM AMBULATORY - REHAB MEDICIN E [facility] [place] [facility] Apr 13, 2024 01:30 PM AMBULATORY - MEDICINE [facility] [place] [facility] Apr 28, 2024 02:00 PM AMBULATORY - MEDICINE [facility] [place] [facility] May 05, 2024 02:00 PM AMBULATORY - REHAB MEDICIN E [facility] [place] [facility] Jun 16, 2024 01:15 PM AMBULATORY - MEDICINE [facility] [place] [facility] Jul 20, 2024 08:00 AM AMBULATORY - MEDICINE [facility] [place] [facility] Social History: Smoking Status (Most current) and Tobacco Use (All prior to encounter date) This section includes the most current, and the historical, smoking and tobacco- related health factors from the [place] facility where the Encounter took place. Current Smoking Status This section includes the most current smoking, or tobacco-related health factor, from the [place] facility where the Encounter took place. Date/Time Current Smoking Status Comment Facil ity Oct 16, 2023 01:30 PM [facility] Tobacco Use History This section includes a history of the smoking, or tobacco-related health factors, that were collected on or before the date of the Encounter. The data comes from the [place] facility where the Encounter took place. Date/Time Smoking Status/Tobacco Use Comment F acility Oct 16, 2023 01:30 PM VA-TOBACCO QUIT 15 YRS OR MORE [facility] [place] [facility] Jul 04, 2022 11:00 AM VA-TOBACCO FORMER USER [facility] [place] [facility] Jul 04, 2022 11:00 AM VA-TOBACCO QUIT 15 YRS OR MORE [facility] [place] [facility] Jun 28, 2021 10:30 AM VA-TOBACCO FORMER USER [facility] [place] [facility] Jun 28, 2021 10:30 AM VA-TOBACCO QUIT 15 YRS OR MORE [facility] [place] [facility] May 26, 2020 08:00 AM VA-TOBACCO FORMER USER [facility] [place] [facility] May 26, 2020 08:00 AM VA-TOBACCO QUIT [facility]RS [facility] May 23, 2018 11:21 AM VA-TOBACCO NEVER USED [facility] Advance Directives: All historical and current Section Date Range: From patient's date of to the date document was created. This section includes ALL of a patient's completed or amended [place] Advance and Rescinded Directives. The entries below indicate that a directive exists for the patient, but an actual copy is not included with this document. The data comes from all [place] facilities. Date Advance Directives Provider Source Feb 19, 2022 ADVANCE DIRECTIVE [facility] November 16, 2020 ADVANCE DIRECTIVE BYRON BARRON [facility] Encounter Notes: All associated encounter notes This section contains the clinical notes associated to the Encounter. Date/Time Encounter Note(s) Provider Source Feb 03, 2024 01:46 PM PHYSICAL THERAPY C ONSULT: [facility] TITLE: PHYSICAL THERAPY CONSULT STANDARD TITLE: PHYSICAL THERAPY CONSULT DATE OF NOTE: FEB 03, 2024@13:46 ENTRY DATE: FEB 03, 2024@13:46:17 AUTHOR: GERALDINE HAMPTON EXP COSIGNER: URGENCY: STATUS: COMPLETED Initial Evaluation date: [...] walker is available /[email or web address]/ CHUN BETANCOURT LICENSE [employer] Signed: 02/03/2024 13:54 [facility]ALDINE [facility]AMPTON [facility]
--- OUTSIDE RECORDS SUMMARY | 2024-07-06 08:03 | XMS_ITS ---
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 Address [address] [place] [address] Care Team Providers Care Fruit Room Hand Name Role Phone BYRON BARRON Primary Care [...] Dec 19, 2007 MEDICAR E SUPPLEM E [id number] [phone] NYDIA HUERTA UL PATIENT [employer] MEDICARE SUPPLEMEN YORDAN Dec 19, 2007 MEDICAR E SUPPLEM E [id number] [phone] NYDIA HUERTA UL PATIENT [employer] [place] MEDICARE SUPPLEMEN YORDAN BANKE RS Dec 19, 2007 NONE [id number] NYDIA HUERTA UL PATIENT MEDICARE (WNR) MEDICARE (M) PART B Oct 13, 2006 PART B [id number] NYDIA HUERTA UL PATIENT MEDICARE (WNR) MEDICARE (M) PART B Oct 13, 2006 PART B [id number] DOM[place] UL PATIENT MEDICARE (WNR) MEDICARE (M) PART B Oct 13, 2006 PART B [id number] NYDIA HUERTA PATIENT MEDICARE (WNR) MEDICARE (M) PART B Oct 13, 2006 PART B [id number] NYDIA HUERTA PATIENT MEDICARE (WNR) MEDICARE (M) PART A Sep 13, 2003 PART A [id number] NYDIA HUERTA PATIENT MEDICARE (WNR) MEDICARE (M) PART A Sep 13, 2003 PART A [id number] [phone] NYDIA HUERTA PATIENT MEDICARE (WNR) MEDICARE (M) PART A Sep 13, 2003 PART A [id number] NYDIA HUERTA PATIENT MEDICARE (WNR) MEDICARE (M) PART A Sep 13, 2003 PART A [id number] [phone] NYDIA HUERTA PATIENT Selected Encounter This [...] - MEDICINE [place] [facility] [facility] Jan 21, 2024 08:00 AM AMBULATORY - MEDICINE [facility] [place] [place] [facility] Feb 03, 2024 01:30 PM AMBULATORY - REHAB MEDICIN E [place] [facility] [place] [place] [facility] Mar 05, 2024 08:00 AM AMBULATORY - MEDICINE [place] [facility] [place] [facility] Mar 05, 2024 09:00 AM AMBULATORY - MEDICINE [place] [facility] [place] [facility] Mar 06, 2024 08:00 AM AMBULATORY - MEDICINE [place] [facility] [place] [facility] Mar 24, 2024 02:00 PM AMBULATORY - MEDICINE [place] [facility] [place] [facility] Mar 31, 2024 09:30 AM AMBULATORY - REHAB MEDICIN E [place] [facility] [place] [facility] Apr 13, 2024 01:30 PM AMBULATORY - MEDICINE [place] [facility] [place] [facility] Apr 28, 2024 02:00 PM AMBULATORY - MEDICINE [place] [facility] [place] [facility] May 05, 2024 02:00 PM AMBULATORY - REHAB MEDICIN E [place] [facility] [place] [facility] Jun 16, 2024 01:15 PM AMBULATORY - MEDICINE [place] [facility] [place] [facility] Social History: Smoking Status (Most [...] VA-TOBACCO FORMER USER [place] [facility] [facility] Tobacco Use History This section includes a history of the smoking, or tobacco-related health factors, that were collected on or before the date of the Encounter. The data comes from the [place] facility where the Encounter took place. Date/Time Smoking Status/Tobacco Use Comment F acility Oct 16, 2023 01:30 PM VA-TOBACCO QUIT 15 YRS OR MORE [place] [facility] [place] [facility] Jul 04, 2022 11:00 AM VA-TOBACCO FORMER USER [place] [facility] [place] [facility] Jul 04, 2022 11:00 AM VA-TOBACCO QUIT 15 YRS OR MORE [place] [facility] [place] [facility] Jun 28, 2021 10:30 AM VA-TOBACCO FORMER USER [place] [facility] [place] [facility] Jun 28, 2021 10:30 AM VA-TOBACCO QUIT 15 YRS OR MORE [place] [facility] [place] [facility] May 26, 2020 08:00 AM VA-TOBACCO FORMER USER [place] [facility] [facility] May 26, 2020 08:00 AM VA-TOBACCO QUIT 15 YRS OR MORE [facility] May 23, 2018 11:21 AM VA-TOBACCO [facility] Advance Directives: All historical and [...] ADVANCE DIRECTIVE JOCE CASTORENA [place] [facility] November 16, 2020 ADVANCE DIRECTIVE BYRON BARRON [facility] Encounter Notes: All associated encounter notes [...] Has ADDENDA Patient is seen in [xx] [facility] [] [facility] [] [facility] [] [facility] leaving message on [facility] Call Center voicemail wanting to: [] Speak [...] By: 01/07/2024 10:14 /eleanor/ LIZZIE GOODE LEAD DEDENTER 01/07/2024 10:46 /eleanor/ CHEN WALKER ADVANCED DEDENTER 01/07/2024 ADDENDUM STATUS: COMPLETED Scheduled /eleanor/ LIZZIE GOODE LEAD DEDENTER Signed: 01/07/2024 10:15 FRIDA CORTES [place] [facility]
--- OUTSIDE RECORDS SUMMARY | 2024-07-06 08:03 | XMS_ITS ---
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 Address [address] [place] [address] Care Team Providers Care Telecommunications Field Engineer Name Role Phone JOSUE SIMMONS Primary Care [...] Dec 19, 2007 MEDICAR E SUPPLEM E [id number] [phone] NYDIA HUERTA UL PATIENT [employer] MEDICARE SUPPLEMEN YORDAN Dec 19, 2007 MEDICAR E SUPPLEM E [id number] [phone] NYDIA HUETRA UL PATIENT [employer] CO MEDICARE SUPPLEMEN YORDAN BANKE RS Dec 19, 2007 NONE [id number] [phone] NYDIA HUERTA UL PATIENT MEDICARE (WNR) MEDICARE (M) PART B Oct 13, 2006 PART B [id number] [facility] NYDIA HUERTA UL PATIENT MEDICARE (WNR) MEDICARE (M) PART B Oct 13, 2006 PART B [id number] [facility] NYDIA HUERTA UL PATIENT MEDICARE (WNR) MEDICARE (M) PART B Oct 13, 2006 PART B [id number] [phone] NYDIA HUERTA PATIENT MEDICARE (WNR) MEDICARE (M) PART B Oct 13, 2006 PART B [id number] [phone] NYDIA HUERTA PATIENT MEDICARE (WNR) MEDICARE (M) PART A Sep 13, 2003 PART A [id number] NYDIA HUERTA PATIENT MEDICARE (WNR) MEDICARE (M) PART A Sep 13, 2003 PART A [id number] NYDIA HUERTA PATIENT MEDICARE (WNR) MEDICARE (M) PART A Sep 13, 2003 PART A [id number] [phone] NYDIA HUERTA PATIENT MEDICARE (WNR) MEDICARE (M) PART A Sep 13, 2003 PART A [id number] [phone] NYDIA HUERTA PATIENT Selected Encounter This [...] 05, 2024 08:00 AM AMBULATORY - MEDICINE [place] [place] [facility] Mar 05, 2024 09:00 AM AMBULATORY - MEDICINE [place] [facility] Mar 06, 2024 08:00 AM AMBULATORY - MEDICINE [place] [facility] Mar 24, 2024 02:00 PM AMBULATORY - MEDICINE [place] [facility] Mar 31, 2024 09:30 AM AMBULATORY - REHAB MEDICIN E [place] [facility] [place] [facility] Apr 13, 2024 01:30 PM AMBULATORY - MEDICINE [place] [facility] [place] [facility] Apr 28, 2024 02:00 PM AMBULATORY - MEDICINE [place] [facility] [place] [place] [facility] May 05, 2024 02:00 PM AMBULATORY - REHAB MEDICIN E [place] [facility] [place] [facility] Jun 16, 2024 01:15 PM AMBULATORY - MEDICINE [place] [place] [facility] Jul 20, 2024 08:00 AM AMBULATORY - MEDICINE [place] [place] [facility] Social History: Smoking Status (Most current) [...] PM VA-TOBACCO QUIT 15 YRS OR MORE [place] [place] [facility] Tobacco Use History This section includes a history of the smoking, or tobacco-related health factors, that were collected on or before the date of the Encounter. The data comes from the [place] facility where the Encounter took place. Date/Time Smoking Status/Tobacco Use Comment F acility Oct 16, 2023 01:30 PM VA-TOBACCO QUIT 15 YRS OR MORE [place] [facility] [place] [facility] Jul 04, 2022 11:00 AM VA-TOBACCO FORMER USER [place] [facility] [place] [facility] Jul 04, 2022 11:00 AM VA-TOBACCO QUIT 15 YRS OR MORE [place] [facility] [place] [facility] Jun 28, 2021 10:30 AM VA-TOBACCO FORMER USER [place] [facility] [place] [facility] Jun 28, 2021 10:30 AM VA-TOBACCO QUIT 15 YRS OR MORE [place] [facility] [place] [facility] May 26, 2020 08:00 AM VA-TOBACCO FORMER USER [place] [facility] [place] [facility] May 26, 2020 08:00 AM VA-TOBACCO QUIT 15 YRS OR MORE [place] [facility] [place] [facility] May 23, 2018 11:21 AM [facility]-TOBACCO [facility] Advance Directives: All historical and current [...] Feb 19, 2022 ADVANCE DIRECTIVE JOCE CASTORENA [facility] November 16, 2020 ADVANCE DIRECTIVE JOSUE SIMMONS [facility] Encounter Notes: All associated encounter notes This section contains the clinical notes associated to the Encounter. Date/Time Encounter Note(s) Provider Source Feb 11, 2024 04:19 PM NONVA NOTE: LOCAL TITLE: [facility] PRESENTING CARE COORD PLAN STANDARD TITLE: NONVA NOTE DATE OF NOTE: FEB 11, 2024@16:19 ENTRY DATE: FEB 11, 2024@16:19:15 AUTHOR: MEL FERNANDEZ EXP COSIGNER: URGENCY: STATUS: COMPLETED Emergency Notification Intake Date Presenting to the Facility: Dec Method of Contact: Notified from ECR worklist Notification ID: [id number] [facility] Referral #: [id number] [facility] [place] Name: Hospital: [facility] Address: City: [place] State: [place] Zip Code: Phone : Community Facility Point of Contact: Name: Nicole Phone: Chief complaint: L ANKLE INJURY Primary Diagnosis: Disposition Discharged Date of discharge: Dec Discharge to Comment: ER Only /eleanor/ MEL FERNANDEZ AMSA Signed: 02/11/2024 16:22 Receipt Acknowledged By: 02/12/2024 08:41 /es/ Stephanie Banks RN, BSN Primary Care 02/11/2024 16:28 /eleanor/ Josue Simmons MD Staff Physician 02/11/2024 17:07 /es/ Cora WAN,RN,[facility] TRANSFER/TRAVELING COORDINATOR MEL FERNANDEZ SELMA
--- OUTSIDE RECORDS SUMMARY | 2024-07-06 08:03 | XMS_ITS ---
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 Address [address] [place] [address] Care Team Providers Care Gang Vibrator Operator Name Role Phone JOSUE SIMMONS Primary [...] Dec 19, 2007 MEDICAR E SUPPLEM E [id number] NYDIA HEURTA UL PATIENT [employer] MEDICARE SUPPLEMEN YORDAN Dec 19, 2007 MEDICAR E SUPPLEM E [id number] NYDIA HUERTA UL PATIENT [employer] CO MEDICARE SUPPLEMEN YORDAN BANKE RS Dec 19, 2007 NONE [id number] NYDIA HUERTA UL PATIENT MEDICARE (WNR) MEDICARE (M) PART B Oct 13, 2006 PART B [id number] NYDIA HUERTA UL PATIENT MEDICARE (WNR) MEDICARE (M) PART B Oct 13, 2006 PART B [id number] [phone] NYDIA HUERTA UL PATIENT MEDICARE (WNR) MEDICARE (M) PART B Oct 13, 2006 PART B [id number] NYDIA HUERTA PATIENT MEDICARE (WNR) MEDICARE (M) PART B Oct 13, 2006 PART B [id number] NYDIA HUERTA PATIENT MEDICARE (WNR) MEDICARE (M) PART A Sep 13, 2003 PART A [id number] NYDIA HUERTA PATIENT MEDICARE (WNR) MEDICARE (M) PART A Sep 13, 2003 PART A [id number] NYDIA HUERTA PATIENT MEDICARE (WNR) MEDICARE (M) PART A Sep 13, 2003 PART A [id number] NYDIA HUERTA PATIENT MEDICARE (WNR) MEDICARE (M) PART A Sep 13, 2003 PART A [id number] [phone] NYDIA HUERTA PATIENT Selected Encounter This [...] MEDICIN E [place] [place] [facility] Mar 05, 2024 08:00 AM AMBULATORY - MEDICINE [place] [facility] Mar 05, 2024 09:00 AM AMBULATORY - MEDICINE [place] [facility] Mar 06, 2024 08:00 AM AMBULATORY - MEDICINE [place] [facility] Mar 24, 2024 02:00 PM AMBULATORY - MEDICINE [place] [facility] Mar 31, 2024 09:30 AM AMBULATORY - REHAB MEDICIN E [place] [facility] [place] [facility] Apr 13, 2024 01:30 PM AMBULATORY - MEDICINE [place] [facility] Apr 28, 2024 02:00 PM AMBULATORY - MEDICINE [place] [facility] May 05, 2024 02:00 PM AMBULATORY - REHAB MEDICIN E [place] [place] [facility] Jun 16, 2024 01:15 PM AMBULATORY - MEDICINE [place] [facility] Jul 20, 2024 08:00 AM AMBULATORY - MEDICINE [place] [facility] Social History: Smoking Status (Most current) [...] 16, 2023 01:30 PM VA-TOBACCO FORMER USER [place] [facility] Tobacco Use History This section includes a history of the smoking, or tobacco-related health factors, that were collected on or before the date of the Encounter. The data comes from the [place] facility where the Encounter took place. Date/Time Smoking Status/Tobacco Use Comment F acility Oct 16, 2023 01:30 PM VA-TOBACCO QUIT 15 YRS OR MORE [place] [facility] [place] [facility] Jul 04, 2022 11:00 AM VA-TOBACCO FORMER USER [place] [facility] [place] [facility] Jul 04, 2022 11:00 AM VA-TOBACCO QUIT 15 YRS OR MORE [place] [facility] [place] [facility] Jun 28, 2021 10:30 AM VA-TOBACCO FORMER USER [place] [facility] [place] [facility] Jun 28, 2021 10:30 AM VA-TOBACCO QUIT 15 YRS OR MORE [place] [facility] [place] [facility] May 26, 2020 08:00 AM VA-TOBACCO FORMER USER [place] [place] [facility] May 26, 2020 08:00 AM VA-TOBACCO QUIT 15 YRS OR MORE [facility] May 23, 2018 11:21 AM [place]-TOBACCO NEVER USED [facility] Advance Directives: All historical and current [...] Feb 19, 2022 ADVANCE DIRECTIVE JOCE CASTORENA [facility] November 16, 2020 ADVANCE DIRECTIVE JOSUE SIMMONS [facility] Encounter Notes: All associated encounter notes This section contains the clinical notes associated to the Encounter. Date/Time Encounter Note(s) Provider Source Jan 23, 2024 01:39 PM NONVA CONSULT: LOCAL TITLE: MD/OUTSIDE CONSULT REPORT SUMMARY STANDARD TITLE: NONVA CONSULT DATE OF NOTE: JAN 23, 2024@13:39 ENTRY DATE: JAN 23, 2024@13:39:31 AUTHOR: JOSUE SIMMONS EXP COSIGNER: URGENCY: STATUS: COMPLETED 01-10-24 [facility] Emergency department Left ankle fracture Treated with splint and crutches Referred to orthopedics /es/ Josue Simmons MD Staff Physician Signed: 01/23/2024 13:39 JOSUE SIMMONS [facility]
--- OUTSIDE RECORDS SUMMARY | 2024-07-06 08:03 | XMS_ITS | Encounter Summary ---
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 Address [address] [place] [address] Care Team Providers Care Aluminum Can Collector Name Role Phone JOSUE SIMMONS Primary Care [...] Dec 19, 2007 MEDICAR E SUPPLEM E [id number] [phone] NYDIA HUERTA UL PATIENT [employer] MEDICARE SUPPLEMEN YORDAN Dec 19, 2007 MEDICAR E SUPPLEM E [id number] NYDIA HUERTA UL PATIENT [employer] CO MEDICARE SUPPLEMEN YORDAN BANKE RS Dec 19, 2007 NONE [id number] NYDIA HUERTA UL PATIENT MEDICARE (WNR) MEDICARE (M) PART B Oct 13, 2006 PART B [id number] NYDIA HUERTA UL PATIENT MEDICARE (WNR) MEDICARE (M) PART B Oct 13, 2006 PART B [id number] DOMINA,[place] UL PATIENT MEDICARE (WNR) MEDICARE (M) PART B Oct 13, 2006 PART B [id number] NYDIA HUERTA PATIENT MEDICARE (WNR) MEDICARE (M) PART B Oct 13, 2006 PART B [id number] NYDIA HUERTA PATIENT MEDICARE (WNR) MEDICARE (M) PART A Sep 13, 2003 PART A [id number] NYDIA HUERTA PATIENT MEDICARE (WNR) MEDICARE (M) PART A Sep 13, 2003 PART A [id number] NYDIA HUERTA PATIENT MEDICARE (WNR) MEDICARE (M) PART A Sep 13, 2003 PART A [id number] NYDIA HUERTA PATIENT MEDICARE (WNR) MEDICARE (M) PART A Sep 13, 2003 PART A [id number] [phone] NYDIA HUERTA PATIENT Selected Encounter This section includes the information on record at [place] for the Encounter. Date/Time Encounter Type Encounter Description Reason Pro vider Source Jan 13, 2024 02:45 PM Outpatient Encounter ADMIN PAT ACTIVTIES (MASNONCT) IHE Encounter Template Text not used by [place] Plan of Treatment: Future Appointments (+ 6 [...] 21, 2024 08:00 AM AMBULATORY - MEDICINE [facility] [place] [place] [facility] Feb 03, 2024 01:30 PM AMBULATORY - REHAB MEDICIN E [place] [place] [facility] Mar 05, 2024 08:00 AM AMBULATORY - MEDICINE [place] [facility] Mar 05, 2024 09:00 AM AMBULATORY - MEDICINE [facility] [place] [facility] Mar 06, 2024 08:00 AM AMBULATORY - MEDICINE [place] [facility] Mar 24, 2024 02:00 PM AMBULATORY - MEDICINE [place] [facility] Mar 31, 2024 09:30 AM AMBULATORY - REHAB MEDICIN E [place] [place] [facility] Apr 13, 2024 01:30 PM AMBULATORY - MEDICINE [place] [facility] Apr 28, 2024 02:00 PM AMBULATORY - MEDICINE [place] [facility] May 05, 2024 02:00 PM AMBULATORY - REHAB MEDICIN E [place] [place] [facility] Jun 16, 2024 01:15 PM AMBULATORY - MEDICINE [place] [facility] Social History: Smoking Status (Most current) [...] PM VA-TOBACCO FORMER USER [place] [facility] Tobacco Use History This section includes a history of the smoking, or tobacco-related health factors, that were collected on or before the date of the Encounter. The data comes from the [place] facility where the Encounter took place. Date/Time Smoking Status/Tobacco Use Comment F acility Oct 16, 2023 01:30 PM VA-TOBACCO QUIT 15 YRS OR MORE [place] [facility] [place] [facility] Jul 04, 2022 11:00 AM VA-TOBACCO FORMER USER [place] [place] [facility] Jul 04, 2022 11:00 AM VA-TOBACCO QUIT 15 YRS OR MORE [place] [facility] [place] [facility] Jun 28, 2021 10:30 AM VA-TOBACCO FORMER USER [place] [place] [facility] Jun 28, 2021 10:30 AM VA-TOBACCO QUIT 15 YRS OR MORE [place] [facility] [place] [facility] May 26, 2020 08:00 AM VA-TOBACCO FORMER USER [place] [place] [facility] May 26, 2020 08:00 AM [place]-TOBACCO QUIT 15 YRS OR MORE [facility] May 23, 2018 11:21 AM VA-TOBACCO NEVER USED [facility] Advance Directives: All historical and current [...] Feb 19, 2022 ADVANCE DIRECTIVE JOCE CASTORENA [facility] November 16, 2020 ADVANCE DIRECTIVE JOSUE SIMMONS [facility] Encounter Notes: All associated encounter notes [...] Patient Name: ALYCIA HUERTA Patient Primary Phone: [phone] Patient Primary Address: [address] [place] [phone] Patient : 1940 Patient Age: 83 Caller/Recipient Relation to Patient: Self Administrative Administrative Note Reason: Outside Care Performed Administrative Note Comments: Received a call from Brigitte with [facility] [facility]. States was seen today in their office [...] from PCP. Please contact Brigitte with questions [phone] (direct line ok to [facility]) . /es/ SAROJ WEINER [facility] AMSA Signed: 01/13/2024 14:46 Receipt Acknowledged By: 01/13/2024 15:24 /es/ Stephanie Banks RN, BSN Primary Care * AWAITING SIGNATURE * COBY MAHER JANE A [place] [facility] Jan 13, 2024 02:45 PM ADMINISTRATIVE NOTE: LOCAL TITLE: CCC: SCHEDULING ADMINISTRATION STANDARD TITLE: ADMINISTRATIVE NOTE DATE OF NOTE: JAN 13, 2024@14:45:52 ENTRY DATE: JAN 13, 2024@14:45:53 AUTHOR: SAROJ NELSON EXP COSIGNER: URGENCY: STATUS: COMPLETED CCC: SCHEDULING ADMINISTRATION Has ADDENDA Patient Demographics Patient Name: ALYCIA HUERTA Patient Primary Phone: [phone] Patient Primary Address: [address] [place] [phone] Patient : 1940 Patient Age: 83 Caller/Recipient Relation to Patient: Self Administrative Administrative Note Reason: Outside Care Performed Administrative Note Comments: Received a call from Brigitte with [facility] [employer]. States was seen today in their office after had an injury over the weekend. Laurens is scheduled for left ankle surgery for a left ankle fracture next week on 01/20. Laurens needs clearance from PACT prior as soon as possible. EKG and labs were completed in the office today, so no need for EKG and Labs but will need clearance from PCP. Please contact Brigitte with questions [phone] (direct line ok to [facility]) . /es/ SAROJ NELSON [facility] AMSA Signed: 01/13/2024 14:46 Receipt Acknowledged By: 01/13/2024 15:24 /es/ Stephanie aBnks RN, BSN Primary Care 01/14/2024 09:25 /es/ COBY MAHER LPN [facility]ARTENDER HELPER 01/13/2024 ADDENDUM STATUS: COMPLETED you last saw him in October. Can he be cleared by phone or do you need appt? /es/ Stephanie Banks RN, BSN Primary Care Signed: 01/13/2024 15:26 Receipt Acknowledged By: 01/13/2024 16:04 /es/ Jouse Simmons MD Staff Physician [facility]
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
--- OUTSIDE RECORDS SUMMARY | 2024-07-06 08:03 | XMS_ITS | Encounter Summary ---
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 Address [address] [place] [id number] Care Team Providers Care Lamp Tester And Inspector Name Role Phone BYRON BARRON Primary Care [...] Dec 19, 2007 MEDICAR E SUPPLEM E [id number] NYDIA HUERTA UL PATIENT [employer] MEDICARE SUPPLEMEN YORDAN Dec 19, 2007 MEDICAR E SUPPLEM E [id number] NYDIA HUERTA UL PATIENT [employer] [place] MEDICARE SUPPLEMEN YORDAN BANKE RS Dec 19, 2007 NONE [id number] [phone] NYDIA HUERTA UL PATIENT MEDICARE (WNR) MEDICARE (M) PART B Oct 13, 2006 PART B [id number] NYDIA HUERTA UL PATIENT MEDICARE (WNR) MEDICARE (M) PART B Oct 13, 2006 PART B [id number] [place] UL PATIENT MEDICARE (WNR) MEDICARE (M) PART B Oct 13, 2006 PART B [id number] [phone] NYDIA HUERTA PATIENT MEDICARE (WNR) MEDICARE (M) PART B Oct 13, 2006 PART B [id number] NYDIA HUERTA PATIENT MEDICARE (WNR) MEDICARE (M) PART A Sep 13, 2003 PART A [id number] NYDIA HUERTA PATIENT MEDICARE (WNR) MEDICARE (M) PART A Sep 13, 2003 PART A [id number] NYDIA HUERTA PATIENT MEDICARE (WNR) MEDICARE (M) PART A Sep 13, 2003 PART A [id number] [phone] NYDIA HUERTA PATIENT MEDICARE (WNR) MEDICARE (M) PART A Sep 13, 2003 PART A [id number] [phone] NYDIA HUERTA PATIENT Selected Encounter This section includes the information on record at [place] for the Encounter. Date/Time Encounter Type Encounter Description Reason Pro vider Source Jan 10, 2024 12:00 AM Outpatient Encounter EVENT (HISTORICAL) IHE Encounter Template Text not used by [place] Plan of Treatment: Future Appointments (+ 6 months) and Future Tests (+/- 45 days) The Plan of Treatment section includes future care activities for the patient from all [place] treatmentfacilities. This section includes future appointments and future orders which are active, pending or scheduled. Future Appointments This section includes appointments that were scheduled to occur 6 months from the date of the Encounter, up to a maximum of 20 appointments. The data comes from all [place] treatment facilities. Appointment Date/Time Appointment Type Appointme nt Facility Name Jan 13, 2024 01:20 PM AMBULATORY - MEDICINE [place] C [facility] [facility] Jan 21, 2024 08:00 AM AMBULATORY - MEDICINE [place] C [facility] [place] [facility] Feb 03, 2024 01:30 PM AMBULATORY - REHAB MEDICIN E [facility] [place] [facility] Mar 05, 2024 08:00 AM AMBULATORY - MEDICINE [place] C [facility] [place] [facility] Mar 05, 2024 09:00 AM AMBULATORY - MEDICINE VA C [facility] [place] [facility] Mar 06, 2024 08:00 AM AMBULATORY - MEDICINE [facility] C [facility] [place] [facility] Mar 24, 2024 02:00 PM AMBULATORY - MEDICINE [facility] C [facility] [place] [facility] Mar 31, 2024 09:30 AM AMBULATORY - REHAB MEDICIN E [facility] [place] [facility] Apr 13, 2024 01:30 PM AMBULATORY - MEDICINE [facility] C [facility] [place] [facility] Apr 28, 2024 02:00 PM AMBULATORY - MEDICINE [facility] C [facility] [place] [facility] May 05, 2024 02:00 PM AMBULATORY - REHAB MEDICIN E [facility] [facility] Jun 16, 2024 01:15 PM AMBULATORY - MEDICINE [place] C [facility] [place] [facility] Social History: Smoking Status (Most current) and Tobacco Use (All prior to encounter date) This section includes the most current, and the historical, smoking and tobacco- related health factors from the [place] facility where the Encounter took place. Current Smoking Status This section includes the most current smoking, or tobacco-related health factor, from the [place] facility where the Encounter took place. Date/Time Current Smoking Status Comment Facil ity Oct 16, 2023 01:30 PM VA-TOBACCO QUIT 15 YRS OR MORE SD [facility] [place] [facility] Tobacco Use History This section includes a history of the smoking, or tobacco-related health factors, that were collected on or before the date of the Encounter. The data comes from the [place] facility where the Encounter took place. Date/Time Smoking Status/Tobacco Use Comment F acility Oct 16, 2023 01:30 PM VA-TOBACCO QUIT 15 YRS OR MORE [facility] [place] [facility] Jul 04, 2022 11:00 AM VA-TOBACCO FORMER USER [facility] [place] [facility] Jul 04, 2022 11:00 AM VA-TOBACCO QUIT 15 YRS OR MORE [facility] [place] [facility] Jun 28, 2021 10:30 AM VA-TOBACCO FORMER USER [facility] [facility] Jun 28, 2021 10:30 AM VA-TOBACCO QUIT 15 YRS OR MORE [facility] [place] [facility] May 26, 2020 08:00 AM [facility] [place] [facility] May 26, 2020 08:00 AM [place]-TOBACCO QUIT 15 YRS OR MORE [facility] May 23, 2018 11:21 AM [facility]-TOBACCO [facility]ED [facility] Advance Directives: All historical and current Section Date Range: From patient's date of to the date document was created. This section includes ALL of a patient's completed or amended [place] Advance and Rescinded Directives. The entries below indicate that a directive exists for the patient, but an actual copy is not included with this document. The data comes from all [place] facilities. Date Advance Directives Provider Source Feb 19, 2022 ADVANCE DIRECTIVE JOCE CASTORENA [facility] November 16, 2020 ADVANCE DIRECTIVE BYRON BARRON [facility] Encounter Notes: All associated encounter [...] RAHUL TORREZ LICENSED PRACTICAL NURSE RAHUL TORREZ [facility]
--- OUTSIDE RECORDS SUMMARY | 2024-07-06 08:03 | XMS_ITS ---
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 Address [address] [place] [address] Care Team Providers Care Senior Caregiver Name Role Phone BYRON BARRON Primary Care [...] Dec 19, 2007 MEDICAR E SUPPLEM E [id number] NYDIA HUERTA UL PATIENT [employer] MEDICARE SUPPLEMEN YORDAN Dec 19, 2007 MEDICAR E SUPPLEM E [id number] NYDIA HUERTA UL PATIENT [employer] [place] MEDICARE SUPPLEMEN YORDAN BANKE RS Dec 19, 2007 NONE [id number] NYDIA HUERTA UL PATIENT MEDICARE (WNR) MEDICARE (M) PART B Oct 13, 2006 PART B [id number] [facility] NYDIA HUERTA UL PATIENT MEDICARE (WNR) MEDICARE (M) PART B Oct 13, 2006 PART B [id number] [facility] [phone] NYDIA HUERTA UL PATIENT MEDICARE (WNR) MEDICARE (M) PART B Oct 13, 2006 PART B [id number] NYDIA HUERTA PATIENT MEDICARE (WNR) MEDICARE (M) PART B Oct 13, 2006 PART B [id number] [phone] NYDIA HUERTA PATIENT MEDICARE (WNR) MEDICARE (M) PART A Sep 13, 2003 PART A [id number] NYDIA HUERTA PATIENT MEDICARE (WNR) MEDICARE (M) PART A Sep 13, 2003 PART A [id number] [phone] NYDIA HUERTA PATIENT MEDICARE (WNR) MEDICARE (M) PART A Sep 13, 2003 PART A [id number] NYDIA HUERTA PATIENT MEDICARE (WNR) MEDICARE (M) PART A Sep 13, 2003 PART A [id number] NYDIA HUERTA PATIENT Selected Encounter This [...] 21, 2024 08:00 AM AMBULATORY - MEDICINE [place] [facility] [place] [facility] Feb 03, 2024 01:30 PM AMBULATORY - REHAB MEDICIN E [place] [facility] [place] [facility] Mar 05, 2024 08:00 AM AMBULATORY - MEDICINE [place] C [facility] [place] [facility] Mar 05, 2024 09:00 AM AMBULATORY - MEDICINE [place] C [facility] [place] [facility] Mar 06, 2024 08:00 AM AMBULATORY - MEDICINE [place] C [facility] [place] [facility] Mar 24, 2024 02:00 PM AMBULATORY - MEDICINE VA C [facility] [place] [facility] Mar 31, 2024 09:30 AM AMBULATORY - REHAB MEDICIN E [facility] [place] [facility] Apr 13, 2024 01:30 PM AMBULATORY - MEDICINE [place] C [facility] [place] [facility] Apr 28, 2024 02:00 PM AMBULATORY - MEDICINE [place] C [facility] [place] [facility] May 05, 2024 02:00 PM AMBULATORY - REHAB MEDICIN E [facility] [place] [facility] Jun 16, 2024 01:15 PM AMBULATORY - MEDICINE [place] C [facility] [place] [facility] Social History: Smoking Status (Most [...] 15 YRS OR MORE [facility] Tobacco Use History This section includes a history of the smoking, or tobacco-related health factors, that were collected on or before the date of the Encounter. The data comes from the [place] facility where the Encounter took place. Date/Time Smoking Status/Tobacco Use Comment F acility Oct 16, 2023 01:30 PM VA-TOBACCO QUIT 15 YRS OR MORE [facility] [place] [facility] Jul 04, 2022 11:00 AM VA-TOBACCO FORMER USER [facility] [facility] Jul 04, 2022 11:00 AM VA-TOBACCO QUIT 15 YRS OR MORE [facility] [facility] Jun 28, 2021 10:30 AM VA-TOBACCO FORMER USER [facility] [facility] Jun 28, 2021 10:30 AM VA-TOBACCO QUIT 15 YRS OR MORE [facility] [place] [facility] May 26, 2020 08:00 AM VA-TOBACCO FORMER USER [facility] [place] [facility] May 26, 2020 08:00 AM VA-TOBACCO QUIT 15 YRS OR MORE [facility] May 23, 2018 11:21 AM ND-TOBACCO NEVER USED [facility] Advance Directives: All historical and [...] Feb 19, 2022 ADVANCE DIRECTIVE JOCE CASTORENA [facility] November 16, 2020 ADVANCE DIRECTIVE BYRON BARRON [facility] Encounter Notes: All associated encounter notes This section contains the clinical notes associated to the Encounter. Date/Time Encounter Note(s) Provider Source Jan 17, 2024 07:40 AM ADMINISTRATIVE NOT E: LOCAL TITLE: ADMINISTRATIVE NOTE STANDARD TITLE: ADMINISTRATIVE NOTE DATE OF NOTE: JAN 17, 2024@07:40 ENTRY DATE: JAN 17, 2024@07:40:31 AUTHOR: ARPAN MARR EXP COSIGNER: URGENCY: STATUS: COMPLETED HAS BEEN REFERRED TO THE [facility] FOR METAL CONTROL WORKER SERVICES. LETTER EXPLAINING THE GUIDELINES OF THIS PROGRAM HAS BEEN MAILED TO / FAMILY /es/ ARPAN MARR Signed: 01/17/2024 07:40 ARPAN MARR [facility]
--- OUTSIDE RECORDS SUMMARY | 2024-07-06 08:03 | XMS_ITS | Encounter Summary ---
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 Organization [place] Address [address] [place] [address] Care Team Providers Care International Marketing Executive Name Role Phone BYRON BARRON Primary Care [...] Dec 19, 2007 MEDICAR E SUPPLEM E [id number] [phone] NYDIA HUERTA UL PATIENT [employer] MEDICARE SUPPLEMEN YORDAN Dec 19, 2007 MEDICAR E SUPPLEM E [id number] NYDIA HUERTA UL PATIENT [employer] CASUAL[employer] [place] MEDICARE SUPPLEMEN YORDAN BANKE RS Dec 19, 2007 NONE [id number] [phone] NYDIA HUERTA UL PATIENT MEDICARE (WNR) MEDICARE (M) PART B Oct 13, 2006 PART B [id number] NYDIA UHERTA UL PATIENT MEDICARE (WNR) MEDICARE (M) PART B Oct 13, 2006 PART B [id number] DOMINA,[place] UL PATIENT MEDICARE (WNR) MEDICARE (M) PART B Oct 13, 2006 PART B [id number] [phone] NYDIA HUERTA PATIENT MEDICARE (WNR) MEDICARE (M) PART B Oct 13, 2006 PART B [id number] NYDIA HUERTA PATIENT MEDICARE (WNR) MEDICARE (M) PART A Sep 13, 2003 PART A [id number] [phone] NYDIA HUERTA PATIENT MEDICARE (WNR) MEDICARE (M) PART A Sep 13, 2003 PART A [id number] [phone] NYDIA HUERTA PATIENT MEDICARE (WNR) MEDICARE (M) PART A Sep 13, 2003 PART A [id number] NYDIA HUERTA PATIENT MEDICARE (WNR) MEDICARE (M) PART A Sep 13, 2003 PART A [id number] [phone] NYDIA HUETRA PATIENT Selected Encounter This section includes the information on record at [place] for the Encounter. Date/Time Encounter Type Encounter Description Reason Pro vider Source Feb 14, 2024 04:29 PM Outpatient Encounter OTOLARYNGOLOGY/ENT IHE Encounter Template Text not used by [place] Plan of Treatment: Future Appointments (+ 6 [...] 05, 2024 08:00 AM AMBULATORY - MEDICINE [facility] [place] [facility] Mar 05, 2024 09:00 AM AMBULATORY - MEDICINE [facility] [place] [facility] Mar 06, 2024 08:00 AM AMBULATORY - MEDICINE [facility] [place] [facility] Mar 24, 2024 02:00 PM AMBULATORY - MEDICINE [place] [facility] Mar 31, 2024 09:30 AM AMBULATORY - [facility]IN [facility] [place] [facility] Apr 13, 2024 01:30 PM AMBULATORY - MEDICINE [place] [facility] [place] [facility] Apr 28, 2024 02:00 PM AMBULATORY - MEDICINE [place] [facility] [place] [facility] May 05, 2024 02:00 PM AMBULATORY - REHAB MEDICIN E [place] [facility] Jun 16, 2024 01:15 PM AMBULATORY - MEDICINE [place] [facility] [place] [facility] Jul 20, 2024 08:00 AM AMBULATORY - MEDICINE [place] [facility] [place] [facility] Aug 14, 2024 03:00 PM AMBULATORY - [place]ICINE [place] [facility] Social History: Smoking Status (Most [...] VA-TOBACCO FORMER USER [place] [facility] Tobacco Use History This section includes a history of the smoking, or tobacco-related health factors, that were collected on or before the date of the Encounter. The data comes from the [place] facility where the Encounter took place. Date/Time Smoking Status/Tobacco Use Comment F acility Oct 16, 2023 01:30 PM VA-TOBACCO QUIT 15 YRS OR MORE [place] [facility] Jul 04, 2022 11:00 AM VA-TOBACCO FORMER USER [place] [facility] [place] [facility] Jul 04, 2022 11:00 AM VA-TOBACCO QUIT 15 YRS OR MORE [facility] [place] [facility] Jun 28, 2021 10:30 AM VA-TOBACCO FORMER USER [place] [facility] [place] [facility] Jun 28, 2021 10:30 AM VA-TOBACCO QUIT 15 YRS OR MORE [facility] [place] [facility] May 26, 2020 08:00 AM VA-TOBACCO FORMER USER [facility] [place] [place] [facility] May 26, 2020 08:00 AM VA-TOBACCO QUIT 15 YRS OR MORE [facility] May 23, 2018 11:21 AM VA-TOBACCO NEVER USED [facility] Advance Directives: All historical and [...] Feb 19, 2022 ADVANCE DIRECTIVE JOCE CASTORENA [facility] November 16, 2020 ADVANCE DIRECTIVE BYRON BARRON [facility] Encounter Notes: All associated encounter notes This section contains the clinical notes associated to the Encounter. Date/Time Encounter Note(s) Provider Source Feb 14, 2024 04:29 PM ADMINISTRATIVE NOTE: LOCAL TITLE: ADMINISTRATIVE NOTE STANDARD TITLE: ADMINISTRATIVE NOTE DATE OF NOTE: FEB 14, 2024@16:29 ENTRY DATE: FEB 14, 2024@16:30:02 AUTHOR: FRIDA CORTES EXP COSIGNER: URGENCY: STATUS: COMPLETED ADMINISTRATIVE NOTE Has ADDENDA leaving message on [facility] voicemail wanting to: [] Speak to provider (name): Concern: [xx] Schedule/ reschedule appointment [] Cancelling an existing appt. [] Other: Clinic: [x] Otolaryngology Vet [] would like [] does not need [] did not specify if they wanted a call back regarding this matter. C/B phone number: Confirmed as phone contact on file in [facility]: /eleanor/ MIKAEL PEGUERO PHYSICAL THERAPIST Signed: 02/14/2024 16:32 Receipt Acknowledged By: 02/17/2024 10:56 /eleanor/ LIZZIE GOODE LEAD SCREW SUPERVISOR 02/17/2024 11:47 /eleanor/ CHEN WALKER ADVANCED SCREW SUPERVISOR 02/17/2024 ADDENDUM STATUS: COMPLETED Scheduled. /tena GOODE LEAD SCREW SUPERVISOR Signed: 02/17/2024 11:34 FRIDA CORTES [facility]
--- OUTSIDE RECORDS SUMMARY | 2024-07-06 08:03 | XMS_ITS ---
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 Organization [place] Address [address] [place] [address] Care Team Providers Care Patrol Police Lieutenant Name Role Phone BYRON BARRON Primary Care [...] Dec 19, 2007 MEDICAR E SUPPLEM E [id number] NYDIA HUERTA UL PATIENT [employer] MEDICARE SUPPLEMEN YORDAN Dec 19, 2007 MEDICAR E SUPPLEM E [id number] NYDIA HUERTA UL PATIENT [employer] [place] MEDICARE SUPPLEMEN YORDAN BANKE RS Dec 19, 2007 NONE [id number] [phone] NYDIA HUERTA UL PATIENT MEDICARE (WNR) MEDICARE (M) PART B Oct 13, 2006 PART B [id number] [facility] NYDIA HUERTA UL PATIENT MEDICARE (WNR) MEDICARE (M) PART B Oct 13, 2006 PART B [id number] [facility] NYDIA HUERTA UL PATIENT MEDICARE (WNR) MEDICARE (M) PART B Oct 13, 2006 PART B [id number] NYDIA HUERTA PATIENT MEDICARE (WNR) MEDICARE (M) PART B Oct 13, 2006 PART B [id number] NYDIA HUERTA PATIENT MEDICARE (WNR) MEDICARE (M) PART A Sep 13, 2003 PART A [id number] [phone] NYDIA HUERTA PATIENT MEDICARE (WNR) MEDICARE (M) PART A Sep 13, 2003 PART A [id number] [phone] NYDIA HUERTA PATIENT MEDICARE (WNR) MEDICARE (M) PART A Sep 13, 2003 PART A [id number] NYDIA HUERTA PATIENT MEDICARE (WNR) MEDICARE (M) PART A Sep 13, 2003 PART A [id number] NYDIA HUERTA PATIENT Selected Encounter This [...] - MEDICINE [place] [facility] Feb 03, 2024 01:30 PM AMBULATORY - REHAB MEDICIN E [place] [facility] Mar 05, 2024 08:00 AM AMBULATORY - [place]ICINE [place] [facility] Mar 05, 2024 09:00 AM AM[place]ULATORY [place]ICINE [place] [facility] Mar 06, 2024 08:00 AM AMBULATORY - [place]ICINE [place] [facility] Mar 24, 2024 02:00 PM AMBULATORY - MEDICINE [place] [facility] Mar 31, 2024 09:30 AM AMBULATORY - REHAB MEDICIN E [place] [facility] Apr 13, 2024 01:30 PM AMBULATORY - MEDICINE [place] [facility] Apr 28, 2024 02:00 PM AMBULATORY - MEDICINE [place] [facility] May 05, 2024 02:00 PM AMBULATORY - REHAB MEDICIN E [place] [facility] Jun 16, 2024 01:15 PM AMBULATORY - [place]ICINE [place] [facility] Jul 20, 2024 08:00 AM AMBULATORY - [place]ICINE [place] [facility] Social History: Smoking Status (Most current) and [...] 15 YRS OR MORE [place] [facility] Tobacco Use History This section includes a history of the smoking, or tobacco-related health factors, that were collected on or before the date of the Encounter. The data comes from the [place] facility where the Encounter took place. Date/Time Smoking Status/Tobacco Use Comment F acility Oct 16, 2023 01:30 PM VA-TOBACCO QUIT 15 YRS OR MORE [place] [place] [facility] Jul 04, 2022 11:00 AM VA-TOBACCO FORMER USER [place] [facility] Jul 04, 2022 11:00 AM VA-TOBACCO QUIT 15 YRS OR MORE [place] [facility] Jun 28, 2021 10:30 AM VA-TOBACCO FORMER USER [place] [facility] Jun 28, 2021 10:30 AM VA-TOBACCO QUIT 15 YRS OR MORE [place] [facility] May 26, 2020 08:00 AM VA-TOBACCO FORMER USER [place] [facility] May 26, 2020 08:00 AM [place]-TOBACCO QUIT 15 YRS OR MORE [facility] May 23, 2018 11:21 AM VA-TOBACCO NEVER USED [facility] Advance Directives: All historical and current [...] Feb 19, 2022 ADVANCE DIRECTIVE JOCE CASTORENA [facility] November 16, 2020 ADVANCE DIRECTIVE BYRON BARRON [facility] Encounter Notes: All associated encounter notes [...] REQUIRED Electronically Filed: 02/03/2024 by: SHANNON GARDUNO [facility]
--- OUTSIDE RECORDS SUMMARY | 2024-07-06 08:03 | XMS_ITS | Encounter Summary ---
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 Address [address] [place] [address] Care Team Providers Care Parking Technician Name Role Phone BYRON BARRON Primary Care [...] Dec 19, 2007 MEDICAR E SUPPLEM E [id number] [phone] NYDIA MALLORY UL PATIENT [employer] MEDICARE SUPPLEMEN YORDAN Dec 19, 2007 MEDICAR E SUPPLEM E [id number] NYDIA MALLORY UL PATIENT [employer] [place] MEDICARE SUPPLEMEN YORDAN BANKE RS Dec 19, 2007 NONE [id number] NYDIA MALLORY UL PATIENT MEDICARE (WNR) MEDICARE (M) PART B Oct 13, 2006 PART B [id number] [facility] NYDIA MALLORY UL PATIENT MEDICARE (WNR) MEDICARE (M) PART B Oct 13, 2006 PART B [id number] [facility] NYDIA MALLORY UL PATIENT MEDICARE (WNR) MEDICARE (M) PART B Oct 13, 2006 PART B [id number] NYDIA MALLORY PATIENT MEDICARE (WNR) MEDICARE (M) PART B Oct 13, 2006 PART B [id number] [phone] NYDIA MALLORY PATIENT MEDICARE (WNR) MEDICARE (M) PART A Sep 13, 2003 PART A [id number] NYDIA MALLORY PATIENT MEDICARE (WNR) MEDICARE (M) PART A Sep 13, 2003 PART A [id number] [phone] NYDIA MALLORY PATIENT MEDICARE (WNR) MEDICARE (M) PART A Sep 13, 2003 PART A [id number] NYDIA MALLORY PATIENT MEDICARE (WNR) MEDICARE (M) PART A Sep 13, 2003 PART A [id number] NYDIA MALLORY PATIENT Selected Encounter This section includes the information on record at [place] for the Encounter. Date/Time Encounter Type Encounter Description Reason Provider Source Jan 14, 2024 11:36 AM Outpatient Encounter [facility] ASSESSMENT BREE MONTILLA Encounter Template Text not used by [place] Plan of Treatment: Future Appointments (+ 6 months) and Future Tests (+/- 45 days) The Plan of Treatment section includes future care activities for the patient from all [place] treatmentfacilities. This section includes future appointments and future orders which are active, pending or scheduled. Future Appointments This section includes appointments that were scheduled to occur 6 months from the date of the Encounter, up to a maximum of 20 appointments. The data comes from all [place] treatment facilities. Appointment Date/Time Appointment Type Appointme nt Facility Name Jan 21, 2024 08:00 AM AM[place]ULATORY [place]ICINE [place] [facility] Feb 03, 2024 01:30 PM AMBULATORY - [place]ICIN [place] [facility] Mar 05, 2024 08:00 AM AMBULATORY - MEDICINE [place] [facility] Mar 05, 2024 09:00 AM AMBULATORY - [place]ICINE [place] [facility] Mar 06, 2024 08:00 AM AMBULATORY - MEDICINE [place] [facility] Mar 24, 2024 02:00 PM AMBULATORY - MEDICINE [place] [facility] Mar 31, 2024 09:30 AM AMBULATORY - REHAB MEDICIN E [place] [facility] Apr 13, 2024 01:30 PM AMBULATORY - MEDICINE [place] [facility] Apr 28, 2024 02:00 PM AMBULATORY - MEDICINE [place] [facility] May 05, 2024 02:00 PM AMBULATORY - REHAB MEDICIN E [place] [facility] Jun 16, 2024 01:15 PM AMBULATORY - MEDICINE [place] [facility] Social History: Smoking Status (Most current) and Tobacco Use (All prior to encounter date) This section includes the most current, and the historical, smoking and tobacco- related health factors from the [place] facility where the Encounter took place. Current Smoking Status This section includes the most current smoking, or tobacco-related health factor, from the [place] facility where the Encounter took place. Date/Time Current Smoking Status Comment Facil ity Oct 16, 2023 01:30 PM VA-TOBACCO FORMER USER [place] [facility] Tobacco Use History This section includes a history of the smoking, or tobacco-related health factors, that were collected on or before the date of the Encounter. The data comes from the [place] facility where the Encounter took place. Date/Time Smoking Status/Tobacco Use Comment F acility Oct 16, 2023 01:30 PM VA-TOBACCO QUIT 15 YRS OR MORE [facility] [place] [facility] Jul 04, 2022 11:00 AM VA-TOBACCO FORMER USER [place] [facility] [place] [facility] Jul 04, 2022 11:00 AM VA-TOBACCO QUIT 15 YRS OR MORE [facility] [place] [facility] Jun 28, 2021 10:30 AM VA-TOBACCO FORMER USER [facility] [place] [facility] Jun 28, 2021 10:30 AM VA-TOBACCO QUIT 15 YRS OR MORE [facility] [place] [facility] May 26, 2020 08:00 AM VA-TOBACCO FORMER USER [place] [facility] [place] [facility] May 26, 2020 08:00 AM [facility]-TOBACCO QUIT 15 YRS OR [facility] May 23, 2018 11:21 AM VA-TOBACCO NEVER USED [facility] Advance Directives: All historical and current Section Date Range: From patient's date of to the date document was created. This section includes ALL of a patient's completed or amended [place] Advance and Rescinded Directives. The entries below indicate that a directive exists for the patient, but an actual copy is not included with this document. The data comes from all [place] facilities. Date Advance Directives Provider Source Feb 19, 2022 ADVANCE DIRECTIVE JOCE CASTORENA [facility] November 16, 2020 ADVANCE DIRECTIVE BYRON BARRON [facility] Encounter Notes: All associated encounter notes [...] Date Given: 01/14/2024 Clinician: Bree Montilla Location: [facility] : Reed Mallory SSN: [id number] : [...] Skill for Daily Decision Making 1 Modified [place] - some difficulty in new situations only. Q12. MDS 2.0/CPS: Short Term Memory (recall of what was learned or known) 0 Short-term memory okay- seems/appears to recall after 5 minutes Q13. SPECIAL TREATMENTS 0 No [place] Q14. CLINICAL MONITORING 0 Less than once a day Q15. SPECIAL NURSING No Q16. NEUROMUSCULAR DIAGNOSIS No COMMENTS SKIPPED SOURCES 2. Informant /eleanor/ ZACHARY GLASER PURCHASED E MARKETING SPECIALIST Signed: 01/14/2024 11:37 BREE M[facility]ILLA [place] [facility]
--- OUTSIDE RECORDS SUMMARY | 2024-07-06 08:03 | XMS_ITS | Continuity of Care Document ---
Author Name [facility] Organization [facility] Care Team Providers Care Stained Glass Installer Name Role Phone [facility] Unavailable Unavailable Problems Combined list of problems from Department of Defense and Veterans Affairs facilities. It does not include entries that were removed or entered in error. Problem Status Onset Date Problem Type Date of Resolution Comments Source Chronic dermatitis Active 023 Condition Oct 05, 2022 Entered By: BYRON BARRON Comment: referred to dermatology [facility] Chest Pain (SCT [id number]) Active Condition Jan 02, 2022 Entered By: BYRON BARRON Comment: ordered stress test [facility] COPD - Chronic Obstructive Pulmonary Disease (SCT 78717316) Active Condition Dec 28, 2021 Entered By: BYRON BARRON Comment: on inhalers [facility] Cataract Active Condition Oct 12, 2020 Entered By: BYRON BARRON Comment: referred for surgery [facility] HTN - Hypertension (SCT [id number]) Active Condition Oct 21, 2020 Entered By: BYRON BARRON Comment: treated witn medication [facility] Hypercholesterolemia (SCT [id number]) Active Condition Oct 21, 2020 Entered By: [...] of uncertain behavior of skin Active Diagnosis [facility] Diagnosis: ICD-10-CM Z13.89 Encounter for screening for other disorder Active Diagnosis [facility] Diagnosis: ICD-10-CM R21 Rash and other nonspecific skin eruption Active Diagnosis [facility] Diagnosis: ICD-10-CM Z23 Encounter for immunization Active Diagnosis [facility] Diagnosis: ICD-10-CM H67.3 Otitis media in diseases classified elsewhere, bilateral Active Diagnosis [facility] [place] [facility] Medications Combined list of outpatient medications [...] TWICE DAILY FOR INFECTIO N ORAL 11/15/2023 [id number] MAUREEN BARRON 2023 20 [facility] ASPIRIN 81MG TAB,CHEWABL E CHEW ONE TABLET BY MOUTH ONCE DAILY ORAL ACTIVE JANINE HAMMOND R 2021 [facility] ATORVASTATI N CA 80MG TAB TAKE ONE TABLET BY MOUTH AT BEDTIME ORAL ACTIVE 06/26/2025 [id number] MAUREEN BARRON PAIGE D 2023 90 [facility] ATORVASTATI N CA 80MG TAB TAKE ONE TABLET BY MOUTH AT BEDTIME ORAL DISCONT INUED 06/19/2024 [id number] 2022 90 [facility] ATORVASTATI N CA 80MG TAB TAKE ONE TABLET BY MOUTH ONCE DAILY FOR CHOLESTE ROL ORAL DISCONT INUED 03/07/2024 [id number] MAUREEN BARROND D 2022 90 [facility] CEPHALEXIN 500MG CAP TAKE ONE CAPSULE BY MOUTH EVERY 8 HOURS FOR INFECTIO N ORAL 04/04/2024 [id number] MAMTA STERN 2023 21 [facility] EZETIMIBE 10MG TAB TAKE ONE TABLET BY MOUTH ONCE DAILY TO LOWER CHOLESTE ROL ORAL ACTIVE 06/26/2025 [id number] 4 MAUREEN BARRON PAIGE D 2023 90 [facility] EZETIMIBE 10MG TAB TAKE ONE TABLET BY MOUTH ONCE DAILY TO LOWER CHOLESTE ROL ORAL DISCONT INUED 06/19/2024 [id number] MOHAMUD ARGUETA AV 2022 90 [facility] FLUTICASONE 250MCG/SALM ETEROL 50MCG INHL,ORAL,D ISKUS,60 INHALE 1 PUFF BY MOUTH TWICE DAILY - RINSE MOUTH AFTER USE RESPIR ATORY (INHAL ATION) 03/07/2024 [id number] MAUREEN BARRON D 2022 3 [facility] FLUTICASONE PROPIONATE 50MCG/SPRAY SOLN,NASAL, 16GM INSTILL 1 SPRAY INTO EACH NOSTRIL ONCE DAILY NEEDED FOR NASAL IRRITATI ON/INFLA MMATION NASAL 04/15/2024 [id number] MAUREEN BARRON PAIGE D 2022 1 [facility] HYDROCHLORO THIAZIDE 25MG TAB TAKE ONE TABLET BY MOUTH ONCE DAILY TO PREVENT FLUID/CO NTROL BLOOD PRESSURE ORAL DISCONT INUED 03/07/2024 [id number] MAUREEN BARRON PAIGE D 2022 90 [facility] HYDROCHLORO THIAZIDE 25MG TAB TAKE ONE TABLET BY MOUTH ONCE DAILY ORAL 06/19/2024 [id number] 4 MOHAMUD ARGUETA AV 2023 90 [facility] METOPROLOL SUCCINATE 50MG TAB,SA TAKE ONE TABLET BY MOUTH ONCE DAILY FOR BLOOD PRESSURE /HEART ORAL ACTIVE 06/26/2025 [id number] 4 MAUREEN BARRON PAIGE D 2023 90 [facility] METOPROLOL SUCCINATE 50MG TAB,SA TAKE ONE TABLET BY MOUTH ONCE DAILY FOR BLOOD PRESSURE /HEART ORAL DISCONT INUED 06/19/2024 [id number] KENDALL,MOHAMUD AV 2022 90 [facility] TRIAMCINOLO NE ACETONIDE 0.1% CREAM,TOP APPLY A MODERATE AMOUNT TOPICALL Y TWICE DAILY NEEDED FOR ITCHING TOPICA L ACTIVE 10/24/2024 [id number] MAUREEN BARRON PAIGE D 2023 454 [facility] Allergies, Adverse Reactions, Alerts Combined list of allergies from Department of Defense and Veterans Affairs facilities. It does not include entries that were removed or entered in error. Substance Category Reaction Severity Reaction type Status Date Reported Comments Source LIDOCAINE Propensity to adverse reactions to drug (finding) Itching MODERATE active 2 [facility] NOVOCAIN Propensity to adverse reactions to drug (finding) Feeling agitated active 8 [facility] PROCAINE Propensity to adverse reactions to drug (finding) active 2 [facility] Immunizations Combined list of available immunizations from the Department of Defense and Veterans Affairs facilities. Immunization Series Date Given Administered By Site Reaction Lot Number CVX Code Drug Telehealth Director Status Comments Source COVID-19 (MODERNA), MRNA, LNP-S, PF, 50 MCG/0.5 ML (AGES 12+ YEARS) 7 2023 ALMA MAHER LEFT DELTO ID [id number] 312 complet ed [facility] INFLUENZA, HIGH-DOSE, TRIVALENT, PF 2023 ALMA MAHER LEFT DELTO ID [id number] 135 complet ed [facility] RSV, BIVALENT, PROTEIN SUBUNIT RSVPREF, DILUENT RECONSTITUTED , 0.5 ML, PF 1 2023 GRETCHEN ANDRADE LEFT DELTO ID [id number] 305 complet ed [facility] COVID-19 (MODERNA), MRNA, LNP-S, PF, 50 MCG/0.5 ML (AGES 12+ YEARS) 1 2023 GRETCHEN ANDRADE E LEFT DELTO ID [id number] 312 complet ed [facility] INFLUENZA, HIGH-DOSE, QUADRIVALENT 2022 JERRI SHAIKH LEFT DELTO ID [id number] 197 complet ed [facility] COVID-19 (MODERNA), MRNA, LNP-S, BIVALENT BOOSTER, PF, 50 MCG/0.5 ML OR 25MCG/0.25 ML DOSE 2021 JERRI SHAIKH ER M LEFT DELTO ID [id number] 229 complet ed [facility] INFLUENZA VACCINE, QUADRIVALENT, ADJUVANTED 2021 205 complet ed [facility] COVID-19 (MODERNA), MRNA, LNP-S, PF, 100 MCG/0.5ML DOSE OR 50 MCG/0.25ML DOSE 3 2021 207 complet ed MOD; [id number] ; 2 [facility] PNEUMOCOCCAL CONJUGATE PCV20, POLYSACCHARID E [id number] CONJUGATE, ADJUVANT, PF 2021 216 complet ed [facility] COVID-19 (MODERNA), MRNA, LNP-S, PF, 100 MCG OR 50 MCG DOSE 3 2020 207 complet ed MOD; [id number]; 2 [facility] INFLUENZA, UNSPECIFIED FORMULATION 2020 88 complet ed [facility] TDAP 2020 115 complet ed [facility] COVID-19 (MODERNA), MRNA, LNP-S, PF, 100 MCG/0.5 ML DOSE 2 2020 207 complet ed MOD; [id number]; 1 [facility] COVID-19 (MODERNA), MRNA, LNP-S, PF, 100 MCG/0.5 ML DOSE 1 2020 207 complet ed MOD; [id number]; 1 [facility] [...] DOSE SEASONAL 2017 135 complet ed Partner: [facility]. Administe red by: ARLET BOLTON (JIC=[id number]). Partner 0 Lot#: [id number] Mfr: Mippin Pasteur; Dosage: 0.5 [facility] [place] [facility] PNEUMOCOCCAL POLYSACCHARID E PPV23 2016 33 complet ed Partner: [employer]. Administe red by: ARLET GUPTALANE CHE (YFU=[id number]). Partner 0 Lot#: [id number] Mfr: Merck; Dosage: 0.5 [facility] [place] [facility] INFLUENZA, HIGH DOSE SEASONAL 2016 135 complet ed Partner: [employer]. Administe red by: ARLET BOLTON (DDM=[id number]). Partner 0 Lot#: [id number] Mfr: Sanofi Pasteur; Dosage: 0.5 [facility] [place] [facility] Results Combined list of recent chemistry, hematology [...] Apr 04, 2024 05:53 PM Reporting Lab: [address] [address] Performing Lab: [facility] [address] [facility] LIVER FUNCTION ALBUMIN [MASS/VOLU ME] IN SERUM OR PLASMA 4.0 g/dL 3.5 - 5.0 04/07 Specimen Type: SERUM No comment entered. Ordering Provider: JAMILA BARRON Report Released Date/Time: Apr 04, 2024 05:53 PM Reporting Lab: [facility] [address] Performing Lab: [facility] [address] [facility] LIVER FUNCTION ALKALINE PHOSPHATAS E [ENZYMATIC ACTIVITY/V OLUME] IN SERUM OR PLASMA 118 U/L 40 - 150 04/07 Specimen Type: SERUM No comment entered. Ordering Provider: JAMILA BARRON Report Released Date/Time: Apr 04, 2024 05:53 PM Reporting Lab: [facility] [place] [facility] [address] [address] Performing Lab: [facility] [place] [facility] [address] [address] [facility] [place] [facility] LIVER FUNCTION ASPARTATE AMINOTRANS FERASE [ENZYMATIC ACTIVITY/V OLUME] IN SERUM OR PLASMA 30 U/L 5 - 34 04/07 Specimen Type: SERUM No comment entered. Ordering Provider: JAMILA BARRON Report Released Date/Time: Apr 04, 2024 05:53 PM Reporting Lab: [facility] [place] [facility] [address] [address] Performing Lab: [facility] [place] [address] [address] [facility] [place] [facility] LIVER FUNCTION ALANINE AMINOTRANS FERASE [ENZYMATIC ACTIVITY/V OLUME] IN SERUM OR PLASMA 23 U/L 04/07 Specimen Type: SERUM No comment entered. Ordering Provider: JAMILA BARRON Report Released Date/Time: Apr 04, 2024 05:53 PM Reporting Lab: [facility] [place] [facility] [address] [address] Performing Lab: [facility] [place] [address] [address] [facility] [place] [facility] LIVER FUNCTION BILIRUBIN. TOTAL [MASS/VOLU ME] IN SERUM OR PLASMA 1.0 mg/dL 0.2 - 1.2 04/07 Specimen Type: SERUM No comment entered. Ordering Provider: JAMILA BARRON Report Released Date/Time: Apr 04, 2024 05:53 PM Reporting Lab: [facility] [place] [facility] [address] [address] Performing Lab: [facility] [place] [address] [address] [facility] [place] [facility] BASIC METABOLI C PANEL (fasting ) UREA NITROGEN [MASS/VOLU ME] IN SERUM OR PLASMA 22 mg/dL 7 - 25 04/07 Specimen Type: SERUM No comment entered. Ordering Provider: JAMILA BARRON Report Released Date/Time: Apr 04, 2024 05:53 PM Reporting Lab: [facility] [address] [address] Performing Lab: [facility] W[facility]N [address] [address] [facility] BASIC METABOLI C PANEL (fasting ) GLUCOSE [MASS/VOLU ME] IN SERUM OR PLASMA 93 mg/dL 65 - 100 04/07 Specimen Type: SERUM No comment entered. Ordering Provider: JAMILA BARRON Report Released Date/Time: Apr 04, 2024 05:53 PM Reporting Lab: [facility] [address] [address] Performing Lab: [facility] TRN [facility] [address] [facility] BASIC METABOLI C PANEL (fasting ) SODIUM [MOLES/VOL UME] IN SERUM OR PLASMA 139 mmol/L 135 - 145 04/07 Specimen Type: SERUM No comment entered. Ordering Provider: JAMILA BARRON Report Released Date/Time: Apr 04, 2024 05:53 PM Reporting Lab: [facility] [place] [address] Performing Lab: [place] [facility] [facility] [address] [facility] BASIC METABOLI C PANEL (fasting ) POTASSIUM [MOLES/VOL UME] IN SERUM OR PLASMA 3.9 mmol/L 3.5 - 5.0 04/07 Specimen Type: SERUM No comment entered. Ordering Provider: JAMILA BARRON Report Released Date/Time: Apr 04, 2024 05:53 PM Reporting Lab: [facility]TR[facility] [address] Performing Lab: [facility] [address] [address] [facility] BASIC METABOLI C PANEL (fasting ) CHLORIDE [MOLES/VOL UME] IN SERUM OR PLASMA 102 mmol/L 100 - 110 04/07 Specimen Type: SERUM No comment entered. Ordering Provider: JAMILA BARRON Report Released Date/Time: Apr 04, 2024 05:53 PM Reporting Lab: [facility]USN [facility] [address] [address] Performing Lab: [facility]USN [facility] [address] [facility] BASIC METABOLI C PANEL (fasting ) CARBON DIOXIDE, TOTAL [MOLES/VOL UME] IN SERUM OR PLASMA 26 meq/L 20 - 30 04/07 Specimen Type: SERUM No comment entered. Ordering Provider: JAMILA BARRON Report Released Date/Time: Apr 04, 2024 05:53 PM Reporting Lab: [facility] CAMPUSN [address] [address] Performing Lab: [facility]N [facility] [address] [facility] BASIC METABOLI C PANEL (fasting ) CREATININE [MASS/VOLU ME] IN SERUM OR PLASMA 0.92 mg/dL 0.50 - 1.40 04/07 Specimen Type: SERUM No comment entered. Ordering Provider: JAMILA BARRON Report Released Date/Time: Apr 04, 2024 05:53 PM Reporting Lab: [facility]TRN [facility] [address] Performing Lab: [facility]TRN [facility] [address] [facility] BASIC METABOLI C PANEL (fasting ) GLOMERULAR FILTRATION RATE/1.73 SQ M.PREDICTE D [VOLUME RATE/AREA] IN SERUM, PLASMA OR BLOOD BY CREATININE -BASED FORMULA (CKD-EPI 2020) 82 mL/min 60 04/07 Specimen Type: SERUM No comment entered. Ordering Provider: JAMILA BARRON Report Released Date/Time: Apr 04, 2024 05:53 PM Reporting Lab: [facility] [address] [address] Performing Lab: [facility] [facility] [address] [address] [facility] [place] [facility] TSH THYROTROPI N [UNITS/VOL UME] IN SERUM OR PLASMA 2.34 u[IU]/mL 0.35 - 5.00 04/07 Specimen Type: SERUM No comment entered. Ordering Provider: JAMILA BARRON Report Released Date/Time: Apr 04, 2024 05:53 PM Reporting Lab: [facility] [place] [facility] [address] [address] Performing Lab: [facility] [place] [address] [address] [facility] [place] [facility] LIPID PANEL FASTING CHOLESTERO L [MASS/VOLU ME] IN SERUM OR PLASMA 139 mg/dL 04/07 Specimen Type: SERUM No comment entered. Ordering Provider: JAMILA BARRON Report Released Date/Time: Apr 04, 2024 05:53 PM Reporting Lab: [facility] [place] [address] [address] Performing Lab: [facility] [place] [address] [address] [facility] [place] [facility] LIPID PANEL FASTING TRIGLYCERI DE [MASS/VOLU ME] IN SERUM OR PLASMA 136 mg/dL 0 - 150 04/07 Specimen Type: SERUM No comment entered. Ordering Provider: JAMILA BARRON Report Released Date/Time: Apr 04, 2024 05:53 PM Reporting Lab: [facility] [place] [facility] [address] [address] Performing Lab: [facility] [place] [address] [address] [facility] [place] [facility] LIPID PANEL FASTING CHOLESTERO L IN LDL [MASS/VOLU ME] IN SERUM OR PLASMA BY MONCHO Briscoe 72 mg/dL 0 - 129 04/07 Specimen Type: SERUM No comment entered. Ordering Provider: JAMILA BARRON Report Released Date/Time: Apr 04, 2024 05:53 PM Reporting Lab: [facility]N [facility] [address] [address] Performing Lab: [facility] TRN [facility] [address] [address] [facility] LIPID PANEL FASTING CHOLESTERO L.TOTAL/CH OLESTEROL IN HDL [MASS RATIO] IN SERUM OR PLASMA 3.5 04/07 Specimen Type: SERUM No comment entered. Ordering Provider: JAMILA BARRON Report Released Date/Time: Apr 04, 2024 05:53 PM Reporting Lab: [facility] [address] Performing Lab: [facility] TRN [facility] [address] [facility] LIPID PANEL FASTING CHOLESTERO L IN HDL [MASS/VOLU ME] IN SERUM OR PLASMA 40 mg/dL 40 - 60 04/07 Specimen Type: SERUM No comment entered. Ordering Provider: JAMILA BARRON Report Released Date/Time: Apr 04, 2024 05:53 PM Reporting Lab: [facility] [address] Performing Lab: [place] [facility] TRN [facility] [address] [facility] CBC AND DIFF (AUTO) LEUKOCYTES [#/VOLUME] IN BLOOD BY AUTOMATED COUNT 7.77 10*3/uL 4.50 - 11.00 04/07 Specimen Type: BLOOD No comment entered. Ordering Provider: JAMILA BARRON Report Released Date/Time: Apr 04, 2024 05:53 PM Reporting Lab: [facility] [address] Performing Lab: [place] [facility] TRN [facility] [address] [facility] [place] [facility] CBC AND DIFF (AUTO) ERYTHROCYT ES [#/VOLUME] IN BLOOD BY AUTOMATED COUNT 4.29 10*6/uL 4.23 - 5.66 04/07 Specimen Type: BLOOD No comment entered. Ordering Provider: JAMILA BARRON Report Released Date/Time: Apr 04, 2024 05:53 PM Reporting Lab: [facility] [place] [address] [address] Performing Lab: [place] [facility] [place] [facility] [address] [address] [facility] [place] [facility] CBC AND DIFF (AUTO) HEMOGLOBIN [MASS/VOLU ME] IN BLOOD 14.2 g/dL 12.8 - 17 04/07 Specimen Type: BLOOD No comment entered. Ordering Provider: JAMILA BARRON Report Released Date/Time: Apr 04, 2024 05:53 PM Reporting Lab: [facility]N [place] [address] [address] Performing Lab: [place] [facility] [place] [address] [address] [facility]TRN [place] [facility] CBC AND DIFF (AUTO) HEMATOCRIT [VOLUME FRACTION] OF BLOOD BY AUTOMATED COUNT 41.1 39.2 - 50.4 04/07 Specimen Type: BLOOD No comment entered. Ordering Provider: JAMILA BARRON Report Released Date/Time: Apr 04, 2024 05:53 PM Reporting Lab: [facility] [place] [address] [address] Performing Lab: [place] [facility] [place] [address] [address] [facility] [place] [facility] CBC AND DIFF (AUTO) MCV [ENTITIC VOLUME] BY AUTOMATED COUNT 95.8 fL 82 - 99 04/07 Specimen Type: BLOOD No comment entered. Ordering Provider: JAMILA BARRON Report Released Date/Time: Apr 04, 2024 05:53 PM Reporting Lab: [facility] [place] [address] [address] Performing Lab: [facility] [place] [facility] [address] [address] [facility] [facility] CBC AND DIFF (AUTO) MCHC [MASS/VOLU ME] BY AUTOMATED COUNT 34.5 g/dL 30.8 - 35.1 04/07 Specimen Type: BLOOD No comment entered. Ordering Provider: JAMILA BARRON Report Released Date/Time: Apr 04, 2024 05:53 PM Reporting Lab: [facility] [place] [facility] [address] [address] Performing Lab: [facility] [facility] [address] [address] [place] [facility] [place] [facility] CBC AND DIFF (AUTO) PLATELETS [#/VOLUME] IN BLOOD BY AUTOMATED COUNT 184 10*3/uL 140 - 360 04/07 Specimen Type: BLOOD No comment entered. Ordering Provider: JAMILA BARRON Report Released Date/Time: Apr 04, 2024 05:53 PM Reporting Lab: [facility] [facility] [address] [address] Performing Lab: [facility] [place] [facility] [address] [address] [facility] [place] [facility] CBC AND DIFF (AUTO) ERYTHROCYT E DISTRIBUTI ON WIDTH [RATIO] BY AUTOMATED COUNT 13.1 12.0 - 16.0 04/07 Specimen Type: BLOOD No comment entered. Ordering Provider: JAMILA BARRON Report Released Date/Time: Apr 04, 2024 05:53 PM Reporting Lab: [place] [facility] [place] [facility] [address] [address] Performing Lab: [place] [facility] [place] [facility] [address] [address] [facility] [place] [facility] CBC AND DIFF (AUTO) MONOCYTES [#/VOLUME] IN BLOOD BY AUTOMATED COUNT 0.98 10*3/uL 0.30 - 1.10 04/07 Specimen Type: BLOOD No comment entered. Ordering Provider: JAMILA BARRON Report Released Date/Time: Apr 04, 2024 05:53 PM Reporting Lab: [place] [facility] [place] [facility] [address] [address] Performing Lab: [facility] [place] [facility] [address] [address] [facility] [place] [facility] CBC AND DIFF (AUTO) MCH [ENTITIC MASS] BY AUTOMATED COUNT 33.1 pg 26.2 - 32.6 04/07 H Specimen Type: BLOOD No comment entered. Ordering Provider: JAMILA BARRON Report Released Date/Time: Apr 04, 2024 05:53 PM Reporting Lab: [place] [facility] [place] [facility] [address] [address] Performing Lab: [place] [facility] [place] [facility] [address] [address] [place] [facility] [place] [facility] CBC AND DIFF (AUTO) NEUTROPHIL S/100 LEUKOCYTES IN BLOOD BY AUTOMATED COUNT 52.3 43.7 - 75.8 04/07 Specimen Type: BLOOD No comment entered. Ordering Provider: JAMILA BARRON Report Released Date/Time: Apr 04, 2024 05:53 PM Reporting Lab: [facility] [place] [facility] [address] [address] Performing Lab: [place] [facility] [place] [facility] [address] [address] [place] [facility] [facility] CBC AND DIFF (AUTO) LYMPHOCYTE S/100 LEUKOCYTES IN BLOOD BY AUTOMATED COUNT 31.7 14.0 - 42.3 04/07 Specimen Type: BLOOD No comment entered. Ordering Provider: JAMILA BARRON Report Released Date/Time: Apr 04, 2024 05:53 PM Reporting Lab: [facility] [place] [facility] [address] [address] Performing Lab: [facility] [place] [facility] [address] [address] [facility] [place] [facility] CBC AND DIFF (AUTO) MONOCYTES/ 100 LEUKOCYTES IN BLOOD BY AUTOMATED COUNT 12.6 5.1 - 13.7 04/07 Specimen Type: BLOOD No comment entered. Ordering Provider: JAMILA BARRON Report Released Date/Time: Apr 04, 2024 05:53 PM Reporting Lab: [facility] [place] [facility] [address] [address] Performing Lab: [facility] [place] [facility] [address] [address] [facility] [place] [facility] CBC AND DIFF (AUTO) EOSINOPHIL S/100 LEUKOCYTES IN BLOOD BY AUTOMATED COUNT 2.3 0.4 - 6.8 04/07 Specimen Type: BLOOD No comment entered. Ordering Provider: JAMILA BARRON Report Released Date/Time: Apr 04, 2024 05:53 PM Reporting Lab: [facility] [place] [facility] [address] [address] Performing Lab: [facility] [place] [facility] [address] [address] [facility] [place] [facility] CBC AND DIFF (AUTO) BASOPHILS/ 100 LEUKOCYTES IN BLOOD BY AUTOMATED COUNT 0.6 0.1 - 2.0 04/07 Specimen Type: BLOOD No comment entered. Ordering Provider: JAMILA BARRON Report Released Date/Time: Apr 04, 2024 05:53 PM Reporting Lab: [facility] [place] [facility] [address] [address] Performing Lab: [facility] [place] [facility] [address] [address] [facility] [place] [facility] CBC AND DIFF (AUTO) NEUTROPHIL S [#/VOLUME] IN BLOOD BY AUTOMATED COUNT 4.06 10*3/uL 2.20 - 7.60 04/07 Specimen Type: BLOOD No comment entered. Ordering Provider: JAMILA BARRON Report Released Date/Time: Apr 04, 2024 05:53 PM Reporting Lab: [facility] [place] [facility] [address] [address] Performing Lab: [facility] [place] [facility] [address] [address] [facility] [place] [facility] CBC AND DIFF (AUTO) LYMPHOCYTE S [#/VOLUME] IN BLOOD BY AUTOMATED COUNT 2.46 10*3/uL 1.00 - 3.20 04/07 Specimen Type: BLOOD No comment entered. Ordering Provider: JAMILA BARRON Report Released Date/Time: Apr 04, 2024 05:53 PM Reporting Lab: [facility] [place] [address] [address] Performing Lab: [facility] [place] [address] [address] [facility] [place] [facility] CBC AND DIFF (AUTO) EOSINOPHIL S [#/VOLUME] IN BLOOD BY AUTOMATED COUNT 0.18 10*3/uL 0.03 - 0.44 04/07 Specimen Type: BLOOD No comment entered. Ordering Provider: JAMILA BARRON Report Released Date/Time: Apr 04, 2024 05:53 PM Reporting Lab: [facility] [place] [address] [address] Performing Lab: [facility] [place] [address] [address] [facility] [place] [facility] CBC AND DIFF (AUTO) BASOPHILS [#/VOLUME] IN BLOOD BY AUTOMATED COUNT 0.05 10*3/uL 0.01 - 0.13 04/07 Specimen Type: BLOOD No comment entered. Ordering Provider: JAMILA BARRON Report Released Date/Time: Apr 04, 2024 05:53 PM Reporting Lab: [facility] [place] [address] [address] Performing Lab: [facility] [place] [address] [address] [facility] [place] [facility] CBC AND DIFF (AUTO) IMMATURE GRANULOCYT ES/100 LEUKOCYTES IN BLOOD BY AUTOMATED COUNT 0.5 0.0 - 0.7 04/07 Specimen Type: BLOOD No comment entered. Ordering Provider: JAMILA BARRON Report Released Date/Time: Apr 04, 2024 05:53 PM Reporting Lab: [facility] [place] [address] [address] Performing Lab: [facility] [place] [facility] [address] [address] [facility] [place] [facility] CBC AND DIFF (AUTO) IMMATURE GRANULOCYT ES [#/VOLUME] IN BLOOD 0.04 10*3/uL 0.00 - 0.06 04/07 Specimen Type: BLOOD No comment entered. Ordering Provider: JAMILA BARRON Report Released Date/Time: Apr 04, 2024 05:53 PM Reporting Lab: [facility] [place] [address] [address] Performing Lab: [facility] [place] [address] [address] [facility] [place] [facility] CBC AND DIFF (AUTO) NRBC % 0.0 0.0 - 0.0 04/07 Specimen Type: BLOOD No comment entered. Ordering Provider: JAMILA BARRON Report Released Date/Time: Apr 04, 2024 05:53 PM Reporting Lab: [facility] [place] [address] [address] Performing Lab: [facility] [place] [address] [address] [facility] [place] [facility] CBC AND DIFF (AUTO) NRBC, ABS 0.00 10*3/uL 0.00 - 0.00 04/07 Specimen Type: BLOOD No comment entered. Ordering Provider: JAMILA BARRON Report Released Date/Time: Apr 04, 2024 05:53 PM Reporting Lab: [facility] [place] [address] [address] Performing Lab: [facility] [place] [address] [address] [facility] [place] [facility] URINALYS IS CLEAN CATCH COLOR OF URINE Yellow 04/07 Specimen Type: URINE Comment: If Glucose = >500 and Ketones are positive, please alert the Physician. Ordering Provider: JAMILA BARRON Report Released Date/Time: Apr 04, 2024 05:53 PM Reporting Lab: [facility] [place] [address] [address] Performing Lab: [facility] [place] [facility] [address] [address] [facility] [place] [facility] URINALYS IS CLEAN CATCH APPEARANCE OF URINE Clear 04/07 Specimen Type: URINE Comment: If Glucose = >500 and Ketones are positive, please alert the Physician. Ordering Provider: JAMILA BARRON Report Released Date/Time: Apr 04, 2024 05:53 PM Reporting Lab: [facility] [place] [facility] [address] [address] Performing Lab: [facility] [place] [facility] [address] [address] [facility] [place] [facility] URINALYS IS CLEAN CATCH GLUCOSE [MASS/VOLU ME] IN URINE Normalmg /dL 04/07 Specimen Type: URINE Comment: If Glucose = >500 and Ketones are positive, please alert the Physician. Ordering Provider: JAMILA BARRON Report Released Date/Time: Apr 04, 2024 05:53 PM Reporting Lab: [facility] [place] [facility] [address] [address] Performing Lab: [facility] [place] [facility] [address] [address] [facility] [place] [facility] URINALYS IS CLEAN CATCH KETONES [MASS/VOLU ME] IN URINE BY TEST STRIP NEGATIVE mg/dL 04/07 Specimen Type: URINE Comment: If Glucose = >500 and Ketones are positive, please alert the Physician. Ordering Provider: JAMILA BARRON Report Released Date/Time: Apr 04, 2024 05:53 PM Reporting Lab: [facility] [place] [facility] [address] [address] Performing Lab: [facility] [place] [facility] [address] [address] [facility] [place] [facility] URINALYS IS CLEAN CATCH ERYTHROCYT ES [PRESENCE] IN URINE SEDIMENT BY LIGHT MICROSCOPY NEGATIVE mg/dL 04/07 Specimen Type: URINE Comment: If Glucose = >500 and Ketones are positive, please alert the Physician. Ordering Provider: JAMILA BARRON Report Released Date/Time: Apr 04, 2024 05:53 PM Reporting Lab: [facility] [place] [facility] [address] [address] Performing Lab: [facility] [place] [facility] [address] [address] [facility] [place] [facility] URINALYS IS CLEAN CATCH PROTEIN [MASS/VOLU ME] IN URINE BY TEST STRIP 10 mg/dL 04/07 Specimen Type: URINE Comment: If Glucose = >500 and Ketones are positive, please alert the Physician. Ordering Provider: JAMILA BARRON Report Released Date/Time: Apr 04, 2024 05:53 PM Reporting Lab: [facility] [place] [facility] [address] [address] Performing Lab: [facility] [place] [facility] [address] [address] [facility] [place] [facility] URINALYS IS CLEAN CATCH NITRITE [PRESENCE] IN URINE NEGATIVE mg/dL 04/07 Specimen Type: URINE Comment: If Glucose = >500 and Ketones are positive, please alert the Physician. Ordering Provider: JAMILA BARRON Report Released Date/Time: Apr 04, 2024 05:53 PM Reporting Lab: [facility] [place] [facility] [address] [address] Performing Lab: [facility] [place] [facility] [address] [address] [facility] [place] [facility] URINALYS IS CLEAN CATCH BILIRUBIN. TOTAL [PRESENCE] IN URINE NEGATIVE mg/dL 04/07 Specimen Type: URINE Comment: If Glucose = >500 and Ketones are positive, please alert the Physician. Ordering Provider: JAMILA BARRON Report Released Date/Time: Apr 04, 2024 05:53 PM Reporting Lab: [facility] [place] [facility] [address] [address] Performing Lab: [facility] [place] [facility] [address] [address] [facility] [place] [facility] URINALYS IS CLEAN CATCH SPECIFIC GRAVITY OF URINE BY REFRACTOME TRY 1.024 1.016 - 1.022 04/07 H Specimen Type: URINE Comment: If Glucose = >500 and Ketones are positive, please alert the Physician. Ordering Provider: JAMILA BARRON Report Released Date/Time: Apr 04, 2024 05:53 PM Reporting Lab: [facility] [place] [facility] [address] [address] Performing Lab: [facility] [place] [facility] [address] [address] [facility] [place] [facility] URINALYS IS CLEAN CATCH PH OF URINE BY TEST STRIP 7.0 5.0 - 9.0 04/07 Specimen Type: URINE Comment: If Glucose = >500 and Ketones are positive, please alert the Physician. Ordering Provider: JAMILA BARRON Report Released Date/Time: Apr 04, 2024 05:53 PM Reporting Lab: [facility] [place] [place] [facility] [address] [address] Performing Lab: [facility] [place] [facility] [address] [address] [facility] [place] [facility] URINALYS IS CLEAN CATCH UROBILINOG EN [MASS/VOLU ME] IN URINE BY TEST STRIP Normalmg /dL <2.0 - 2.0 04/07 Specimen Type: URINE Comment: If Glucose = >500 and Ketones are positive, please alert the Physician. Ordering Provider: JAMILA BARRON Report Released Date/Time: Apr 04, 2024 05:53 PM Reporting Lab: [facility] [place] [facility] [address] [address] Performing Lab: [facility] [place] [place] [facility] [address] [address] [facility] [place] [facility] URINALYS IS CLEAN CATCH LEUKOCYTE ESTERASE [PRESENCE] IN URINE BY TEST STRIP NEGATIVE 04/07 Specimen Type: URINE Comment: If Glucose = >500 and Ketones are positive, please alert the Physician. Ordering Provider: JAMILA BARRON Report Released Date/Time: Apr 04, 2024 05:53 PM Reporting Lab: [facility] [place] [facility] [address] [address] Performing Lab: [facility] [place] [facility] [address] [address] [facility] [place] [facility] BASIC METABOLI C PANEL (fasting ) UREA NITROGEN [MASS/VOLU ME] IN SERUM OR PLASMA 16 mg/dL 7 - 25 10/07 Specimen Type: SERUM No comment entered. Ordering Provider: JAMILA BARRON Report Released Date/Time: Oct 05, 2023 11:58 PM Reporting Lab: [facility] [place] [facility] [address] [address] Performing Lab: [facility] [facility] [address] [address] [facility] [facility] BASIC METABOLI C PANEL (fasting ) GLUCOSE [MASS/VOLU ME] IN SERUM OR PLASMA 102 mg/dL 65 - 100 10/07 H Specimen Type: SERUM No comment entered. Ordering Provider: JAMILA BARRON Report Released Date/Time: Oct 05, 2023 11:58 PM Reporting Lab: [facility] [place] [facility] [address] [address] Performing Lab: [facility] [place] [facility] [address] [address] [facility] [facility] BASIC METABOLI C PANEL (fasting ) SODIUM [MOLES/VOL UME] IN SERUM OR PLASMA 143 mmol/L 135 - 145 10/07 Specimen Type: SERUM No comment entered. Ordering Provider: JAMILA BARRON Report Released Date/Time: Oct 05, 2023 11:58 PM Reporting Lab: [facility] [place] [facility] [address] [address] Performing Lab: [facility] [place] [facility] [address] [address] [facility] [place] [facility] BASIC METABOLI C PANEL (fasting ) POTASSIUM [MOLES/VOL UME] IN SERUM OR PLASMA 4.4 mmol/L 3.5 - 5.0 10/07 Specimen Type: SERUM No comment entered. Ordering Provider: JAMILA BARRON Report Released Date/Time: Oct 05, 2023 11:58 PM Reporting Lab: [facility] [facility] [address] [address] Performing Lab: [facility] [address] [address] [facility] [place] [facility] BASIC METABOLI C PANEL (fasting ) CHLORIDE [MOLES/VOL UME] IN SERUM OR PLASMA 106 mmol/L 100 - 110 10/07 Specimen Type: SERUM No comment entered. Ordering Provider: JAMILA BARRON Report Released Date/Time: Oct 05, 2023 11:58 PM Reporting Lab: [facility] [address] [address] Performing Lab: [facility] [address] [address] [facility] BASIC METABOLI C PANEL (fasting ) CARBON DIOXIDE, TOTAL [MOLES/VOL UME] IN SERUM OR PLASMA 26 meq/L 20 - 30 10/07 Specimen Type: SERUM No comment entered. Ordering Provider: JAMILA BARRON Report Released Date/Time: Oct 05, 2023 11:58 PM Reporting Lab: [facility] [facility] [address] Performing Lab: [facility] [address] [address] [facility] BASIC METABOLI C PANEL (fasting ) CREATININE [MASS/VOLU ME] IN SERUM OR PLASMA 1.01 mg/dL 0.50 - 1.40 10/07 Specimen Type: SERUM No comment entered. Ordering Provider: JAMILA BARRON Report Released Date/Time: Oct 05, 2023 11:58 PM Reporting Lab: [facility] [facility] [address] Performing Lab: [facility] [address] [address] [facility] [place] [facility] BASIC METABOLI C PANEL (fasting ) GLOMERULAR FILTRATION RATE/1.73 SQ M.PREDICTE D [VOLUME RATE/AREA] IN SERUM, PLASMA OR BLOOD BY CREATININE -BASED FORMULA (CKD-EPI 2020) 73 mL/min 60 10/07 Specimen Type: SERUM No comment entered. Ordering Provider: JAMILA BARRON Report Released Date/Time: Oct 05, 2023 11:58 PM Reporting Lab: [facility] [facility] [address] [address] Performing Lab: [facility] [facility] [address] [address] [facility] [place] [facility] LIVER FUNCTION PROTEIN [MASS/VOLU ME] IN SERUM OR PLASMA 6.6 g/dL 6.0 - 8.3 10/07 Specimen Type: SERUM No comment entered. Ordering Provider: JAMILA BARRON Report Released Date/Time: Oct 05, 2023 11:58 PM Reporting Lab: [facility] [facility] [address] [address] Performing Lab: [facility] [facility] [address] [address] [facility] [place] [facility] LIVER FUNCTION ALBUMIN [MASS/VOLU ME] IN SERUM OR PLASMA 3.8 g/dL 3.5 - 5.0 10/07 Specimen Type: SERUM No comment entered. Ordering Provider: JAMILA BARRON Report Released Date/Time: Oct 05, 2023 11:58 PM Reporting Lab: [facility] [facility] [address] [address] Performing Lab: [facility] [facility] [address] [address] [facility] [place] [facility] LIVER FUNCTION ALKALINE PHOSPHATAS E [ENZYMATIC ACTIVITY/V OLUME] IN SERUM OR PLASMA 103 U/L 40 - 150 10/07 Specimen Type: SERUM No comment entered. Ordering Provider: JAMILA BARRON Report Released Date/Time: Oct 05, 2023 11:58 PM Reporting Lab: [facility] [place] [facility] [address] [address] Performing Lab: [facility] [place] [facility] [address] [address] [facility] [place] [facility] LIVER FUNCTION ASPARTATE AMINOTRANS FERASE [ENZYMATIC ACTIVITY/V OLUME] IN SERUM OR PLASMA 33 U/L 5 - 34 10/07 Specimen Type: SERUM No comment entered. Ordering Provider: JAMILA BARRON Report Released Date/Time: Oct 05, 2023 11:58 PM Reporting Lab: [facility] [facility] [address] [address] Performing Lab: [facility] [facility] [address] [address] [facility] LIVER FUNCTION ALANINE AMINOTRANS FERASE [ENZYMATIC ACTIVITY/V OLUME] IN SERUM OR PLASMA 29 U/L 10/07 Specimen Type: SERUM No comment entered. Ordering Provider: JAMILA BARRON Report Released Date/Time: Oct 05, 2023 11:58 PM Reporting Lab: [facility] [facility] [address] [address] Performing Lab: [facility] [facility] [address] [address] [facility] LIVER FUNCTION BILIRUBIN. TOTAL [MASS/VOLU ME] IN SERUM OR PLASMA 0.7 mg/dL 0.2 - 1.2 10/07 Specimen Type: SERUM No comment entered. Ordering Provider: JAMILA BARRON Report Released Date/Time: Oct 05, 2023 11:58 PM Reporting Lab: [facility] [facility] [address] [address] Performing Lab: [facility] [facility] [address] [address] [facility] CBC AND DIFF (AUTO) LEUKOCYTES [#/VOLUME] IN BLOOD BY AUTOMATED COUNT 7.99 10*3/uL 4.50 - 11.00 10/07 Specimen Type: BLOOD No comment entered. Ordering Provider: JAMILA BARRON Report Released Date/Time: Oct 05, 2023 11:58 PM Reporting Lab: [facility] [place] [facility] [address] [facility] [address] Performing Lab: [facility] [place] [facility] [address] [facility] [address] [facility] [place] [facility] CBC AND DIFF (AUTO) ERYTHROCYT ES [#/VOLUME] IN BLOOD BY AUTOMATED COUNT 4.47 10*6/uL 4.23 - 5.66 10/07 Specimen Type: BLOOD No comment entered. Ordering Provider: JAMILA BARRON Report Released Date/Time: Oct 05, 2023 11:58 PM Reporting Lab: [facility] [place] [facility] [address] [facility] [address] Performing Lab: [facility] [place] [address] [address] [place] [facility] [facility] CBC AND DIFF (AUTO) HEMOGLOBIN [MASS/VOLU ME] IN BLOOD 14.6 g/dL 12.8 - 17 10/07 Specimen Type: BLOOD No comment entered. Ordering Provider: JAMILA BARRON Report Released Date/Time: Oct 05, 2023 11:58 PM Reporting Lab: [facility] [place] [facility] [address] [facility] [address] Performing Lab: [facility] [place] [address] [address] [facility] [place] [facility] CBC AND DIFF (AUTO) HEMATOCRIT [VOLUME FRACTION] OF BLOOD BY AUTOMATED COUNT 42.7 39.2 - 50.4 10/07 Specimen Type: BLOOD No comment entered. Ordering Provider: JAMILA BARRON Report Released Date/Time: Oct 05, 2023 11:58 PM Reporting Lab: [facility] [place] [facility] [address] [facility] [facility] [address] Performing Lab: [facility] [place] [address] [address] [facility] [place] [facility] CBC AND DIFF (AUTO) MCV [ENTITIC VOLUME] BY AUTOMATED COUNT 95.5 fL 82 - 99 10/07 Specimen Type: BLOOD No comment entered. Ordering Provider: JAMILA BARRON Report Released Date/Time: Oct 05, 2023 11:58 PM Reporting Lab: [facility] [place] [facility] [address] [facility] [address] Performing Lab: [facility] [place] [facility] [address] [facility] [facility] [address] [facility] [place] [facility] CBC AND DIFF (AUTO) MCHC [MASS/VOLU ME] BY AUTOMATED COUNT 34.2 g/dL 30.8 - 35.1 10/07 Specimen Type: BLOOD No comment entered. Ordering Provider: JAMILA BARRON Report Released Date/Time: Oct 05, 2023 11:58 PM Reporting Lab: [facility] [facility] [address] [facility] [address] Performing Lab: [facility] [place] [facility] [address] [facility] [facility] [address] [facility] [facility] CBC AND DIFF (AUTO) PLATELETS [#/VOLUME] IN BLOOD BY AUTOMATED COUNT 126 10*3/uL 140 - 360 10/07 L Specimen Type: BLOOD No comment entered. Ordering Provider: JAMILA BARRON Report Released Date/Time: Oct 05, 2023 11:58 PM Reporting Lab: [facility] [place] [facility] [address] [facility] [address] Performing Lab: [facility] [place] [facility] [address] [facility] [address] [facility] [place] [facility] CBC AND DIFF (AUTO) ERYTHROCYT E DISTRIBUTI ON WIDTH [RATIO] BY AUTOMATED COUNT 12.9 12.0 - 16.0 10/07 Specimen Type: BLOOD No comment entered. Ordering Provider: JAMILA BARRON Report Released Date/Time: Oct 05, 2023 11:58 PM Reporting Lab: [facility] [place] [facility] [address] [address] Performing Lab: [facility] [place] [address] [address] [facility] [facility] CBC AND DIFF (AUTO) MONOCYTES [#/VOLUME] IN BLOOD BY AUTOMATED COUNT 0.79 10*3/uL 0.30 - 1.10 10/07 Specimen Type: BLOOD No comment entered. Ordering Provider: JAMILA BARRON Report Released Date/Time: Oct 05, 2023 11:58 PM Reporting Lab: [facility] [place] [facility] [address] [address] Performing Lab: [facility] [place] [facility] [address] [address] [facility] [place] CBC AND DIFF (AUTO) MCH [ENTITIC MASS] BY AUTOMATED COUNT 32.7 pg 26.2 - 32.6 10/07 H Specimen Type: BLOOD No comment entered. Ordering Provider: JAMILA BARRON Report Released Date/Time: Oct 05, 2023 11:58 PM Reporting Lab: [facility] [place] [address] [address] Performing Lab: [facility] [place] [facility] [address] [address] [facility] [place] [facility] CBC AND DIFF (AUTO) NEUTROPHIL S/100 LEUKOCYTES IN BLOOD BY AUTOMATED COUNT 54.5 43.7 - 75.8 10/07 Specimen Type: BLOOD No comment entered. Ordering Provider: JAMILA BARRON Report Released Date/Time: Oct 05, 2023 11:58 PM Reporting Lab: [facility] [place] [facility] [address] [address] Performing Lab: [facility] [place] [facility] [address] [address] [facility] [place] [facility] CBC AND DIFF (AUTO) LYMPHOCYTE S/100 LEUKOCYTES IN BLOOD BY AUTOMATED COUNT 33.3 14.0 - 42.3 10/07 Specimen Type: BLOOD No comment entered. Ordering Provider: JAMILA BARRON Report Released Date/Time: Oct 05, 2023 11:58 PM Reporting Lab: [facility] [place] [facility] [address] [address] Performing Lab: [facility] [place] [facility] [address] [address] [facility] [facility] CBC AND DIFF (AUTO) MONOCYTES/ 100 LEUKOCYTES IN BLOOD BY AUTOMATED COUNT 9.9 5.1 - 13.7 10/07 Specimen Type: BLOOD No comment entered. Ordering Provider: JAMILA BARRON Report Released Date/Time: Oct 05, 2023 11:58 PM Reporting Lab: [facility] [address] [address] Performing Lab: [facility] [address] [address] [place] [facility] [place] [facility] CBC AND DIFF (AUTO) EOSINOPHIL S/100 LEUKOCYTES IN BLOOD BY AUTOMATED COUNT 1.4 0.4 - 6.8 10/07 Specimen Type: BLOOD No comment entered. Ordering Provider: JAMILA BARRON Report Released Date/Time: Oct 05, 2023 11:58 PM Reporting Lab: [facility] [address] [address] Performing Lab: [facility] [address] [address] [place] [facility] [place] [facility] CBC AND DIFF (AUTO) BASOPHILS/ 100 LEUKOCYTES IN BLOOD BY AUTOMATED COUNT 0.6 0.1 - 2.0 10/07 Specimen Type: BLOOD No comment entered. Ordering Provider: JAMILA BARRON Report Released Date/Time: Oct 05, 2023 11:58 PM Reporting Lab: [facility] [address] [address] Performing Lab: [facility] [address] [address] [facility] CBC AND DIFF (AUTO) NEUTROPHIL S [#/VOLUME] IN BLOOD BY AUTOMATED COUNT 4.36 10*3/uL 2.20 - 7.60 10/07 Specimen Type: BLOOD No comment entered. Ordering Provider: JAMILA BARRON Report Released Date/Time: Oct 05, 2023 11:58 PM Reporting Lab: [facility] [address] [address] Performing Lab: [facility] [place] [facility] [address] [address] [facility] CBC AND DIFF (AUTO) LYMPHOCYTE S [#/VOLUME] IN BLOOD BY AUTOMATED COUNT 2.66 10*3/uL 1.00 - 3.20 10/07 Specimen Type: BLOOD No comment entered. Ordering Provider: JAMILA BARRON Report Released Date/Time: Oct 05, 2023 11:58 PM Reporting Lab: [facility] [place] [facility] [address] [address] Performing Lab: [facility] [place] [facility] [address] [address] [facility] CBC AND DIFF (AUTO) EOSINOPHIL S [#/VOLUME] IN BLOOD BY AUTOMATED COUNT 0.11 10*3/uL 0.03 - 0.44 10/07 Specimen Type: BLOOD No comment entered. Ordering Provider: JAMILA BARRON Report Released Date/Time: Oct 05, 2023 11:58 PM Reporting Lab: [facility] [place] [facility] [address] [address] Performing Lab: [facility] [place] [address] [address] [facility] CBC AND DIFF (AUTO) BASOPHILS [#/VOLUME] IN BLOOD BY AUTOMATED COUNT 0.05 10*3/uL 0.01 - 0.13 10/07 Specimen Type: BLOOD No comment entered. Ordering Provider: JAMILA BARRON Report Released Date/Time: Oct 05, 2023 11:58 PM Reporting Lab: [facility] [place] [facility] [address] [address] Performing Lab: [facility] [place] [facility] [address] [address] [facility] CBC AND DIFF (AUTO) IMMATURE GRANULOCYT ES/100 LEUKOCYTES IN BLOOD BY AUTOMATED COUNT 0.3 0.0 - 0.7 10/07 Specimen Type: BLOOD No comment entered. Ordering Provider: JAMILA BARRON Report Released Date/Time: Oct 05, 2023 11:58 PM Reporting Lab: [facility] [place] [facility] [address] [address] Performing Lab: [facility] [place] [facility] [address] [address] [place] [facility] [facility] CBC AND DIFF (AUTO) IMMATURE GRANULOCYT ES [#/VOLUME] IN BLOOD 0.02 10*3/uL 0.00 - 0.06 10/07 Specimen Type: BLOOD No comment entered. Ordering Provider: JAMILA BARRON Report Released Date/Time: Oct 05, 2023 11:58 PM Reporting Lab: [facility] [address] [address] Performing Lab: [facility] [address] [address] [facility] LIPID PANEL FASTING CHOLESTERO L [MASS/VOLU ME] IN SERUM OR PLASMA 133 mg/dL 10/07 Specimen Type: SERUM No comment entered. Ordering Provider: JAMILA BARRON Report Released Date/Time: Oct 05, 2023 11:58 PM Reporting Lab: [facility] [address] [address] Performing Lab: [facility] [address] [address] [facility] LIPID PANEL FASTING TRIGLYCERI DE [MASS/VOLU ME] IN SERUM OR PLASMA 98 mg/dL 0 - 150 10/07 Specimen Type: SERUM No comment entered. Ordering Provider: JAMILA BARRON Report Released Date/Time: Oct 05, 2023 11:58 PM Reporting Lab: [facility] [place] [address] [address] Performing Lab: [facility] [address] [address] [facility] LIPID PANEL FASTING CHOLESTERO L IN LDL [MASS/VOLU ME] IN SERUM OR PLASMA BY MONCHO Briscoe 70 mg/dL 0 - 129 10/07 Specimen Type: SERUM No comment entered. Ordering Provider: JAMILA ABRRON Report Released Date/Time: Oct 05, 2023 11:58 PM Reporting Lab: [facility] [place] [facility] [address] [address] Performing Lab: [facility] [place] [facility] [address] [address] [place] [facility] [facility] LIPID PANEL FASTING CHOLESTERO L.TOTAL/CH OLESTEROL IN HDL [MASS RATIO] IN SERUM OR PLASMA 3.1 10/07 Specimen Type: SERUM No comment entered. Ordering Provider: JAMILA BARRON Report Released Date/Time: Oct 05, 2023 11:58 PM Reporting Lab: [facility] [place] [facility] [address] [address] Performing Lab: [facility] [place] [facility] [address] [address] [facility] LIPID PANEL FASTING CHOLESTERO L IN HDL [MASS/VOLU ME] IN SERUM OR PLASMA 43 mg/dL 40 - 60 10/07 Specimen Type: SERUM No comment entered. Ordering Provider: JAMILA BARRON Report Released Date/Time: Oct 05, 2023 11:58 PM Reporting Lab: [facility] [place] [facility] [address] [address] Performing Lab: [facility] [place] [address] [address] [facility] Vital Signs Combined list of inpatient and outpatient Vital Signs from Department of Defense and Veterans Affairs, ranging from 12 months to all on record, depending upon the facility. Vital Sign Value Date Comments Source SYSTOLIC BLOOD PRESSURE 162 04/13/20 24 13:23:12 [place] [facility] [place] [facility] DIASTOLIC BLOOD PRESSURE 70 04/13/ 024 13:23:12 [facility] [place] [facility] PULSE OXIMETRY 96 04/13/2024 13:23:12 [facility] [...] months. 2) Encounters from the Department of Defense facilities going back up to 280 months. 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
RANCHO RODRIGUEZ 04/30 [facility] En[facility] [id number] 06/14 [facility] En[facility] [id number] 06/16 [facility] En[facility] [id number] 06/19 [facility] Encounter [id number] 06/27 [facility] Encounter [id number] 10/08 [facility] OFFICE O/P EST LOW 20 MIN [id number] Diagnos is: ICD-10- CM H67.3 Otitis media in disease s classif ied elsewhe re, bilater al
RICO BARRON RD D 10/15 [facility] OFF/OP EST MAY X REQ PHY/QHP [id number] Diagnos is: ICD-10- CM Z23 Encount er for immuniz ation<b r/> RICO BARRON RD D 10/15 [facility] UNLISTED SPEC DERM SVC/PX [id number] Diagnos is: ICD-10- CM Z13.89 Encount er for screeni ng for other disorde r
GORDON BEAUCHAMP ICA A 10/23 [facility] OFFICE O/P EST SF 10 MIN [id number] Diagnos is: ICD-10- CM R21 Rash and other nonspec ific skin eruptio n
WILEY PASTOR PH J 10/23 [facility] Outpatient Encounter [id number] 10/23 [facility] Encounter [id number] 10/23 [facility] Encounter [id number] 11/20 [facility] Encounter [id number] 11/24 [facility] Encounter [id number] 11/27 [facility] Encounter [id number] 11/28 [facility] En[facility] [id number] 11/30 [facility] UNLISTED SPEC DERM SVC/PX [id number] Diagnos is: ICD-10- CM Z13.89 Encount er for screeni ng for other disorde r
GORDON BEAUCHAMP ICA A 12/04 [facility] En[facility] [id number] 12/04 [facility] Outpatient Encounter [id number] Diagnos is: ICD-10- CM D48.5 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
Yossi HARRINGTON 12/29 [facility] En[facility] [id number] 12/29 [facility] Out[facility] Encounter [id number] 01/05 [facility] Out[facility] Encounter [id number] 01/09 [facility] Encounter [id number] 01/12 [facility] Out[facility] Encounter [id number] 01/12 [facility] Out[facility] Encounter [id number] 01/12 [facility] Out[facility] Encounter [id number] IRASEMA MONTILLA 01/13 [facility] Out[facility] Encounter [id number] 01/16 [facility] Out[facility] Encounter [id number] 01/19 [facility] Encounter [id number] 01/22 [facility] Out[facility] Encounter [id number] D 02/02 [facility] ORTHC/PROS TC MGMT SBSQ ENC [id number] Diagnos is: ICD-10- CM M84.472 A Patholo gical fractur e, left ankle, init encntr for fractur e
Thierno HAMPTON 02/02 [facility] En[facility] [id number] 02/10 [facility] Out[facility] Encounter [id number] 02/13 [facility] Out[facility] Encounter [id number] 03/04 [facility] Out[facility] Encounter [id number] 03/04 [facility] OFF/OP EST MAY X REQ PHY/QHP [id number] Diagnos is: ICD-10- CM Z71.89 Other specifi ed nutrition counselor ing<br/ > JOSIE KINGSTON 03/05 [facility] OFFICE O/P EST LOW 20 MIN [id number] Diagnos is: ICD-10- CM L60.1 Onychol ysis
PASCUAL STERN 03/05 [facility] OFF/OP EST MAY X REQ PHY/QHP [id number] Diagnos is: ICD-10- CM Z48.01 Encount er for change or removal of surgica l wound dressin g
KAVEH SIEGEL LLAranza L 03/06 [facility] OFF/OP CNSLTJ NEW/EST MOD 40 [id number] Diagnos is: ICD-10- CM H90.A31 Mix cndct/s nrl hear loss,un i,r ear w rstrcd hear cntra side
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
Yossi HARRINGTON 03/31 [facility] Out[facility] En[facility] [id number]/09 [facility] OFFICE O/P EST LOW 20 MIN [id number] 1. Diagnos is: ICD-10- CM I10 Essenti al (primar y) hyperte nsion<b r/> RICO BARRON RD 04/13 [facility] Encounter [id number] 1.04/14 [facility] Encounter [id number] 1.04/23 [facility] Encounter [id number] 1.04/24 [facility] OFFICE O/P EST MOD 30 MIN [id number] Diagnos is: ICD-10- CM 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
RANCHO RODRIGUEZ 04/28 [facility] CONFORMITY EVALUATION [id number] Diagnos is: ICD-10- CM Z46.1 Encount er for fitting and adjustm ent of hearing aid<br/ > Yossi HARRINGTON 05/05 [facility] Out[facility] Encounter [id number] 05/08 [facility] Encounter [id number] 06/03 [facility] Out[facility] Encounter [id number] 06/06 [facility] Out[facility] Encounter [id number] 06/25 [facility] Out[facility] Encounter [id number] 06/25 [facility] Out[facility] Encounter [id number] 06/26 [facility] Out[facility] Encounter [id number] 07/02 [facility] Social History Combined list of available smoking, tobacco, and other social history from Department of Defense and Veterans Affairs facilities. Social History Type Response Date Comment Sour e Tobacco smoking status NHIS VA-TOBACCO QUIT 15 YRS OR MORE 10/16/2023 [facility] [place] [facility] History of tobacco use VA-TOBACCO FORMER USER 10/16/2023 [place] [facility] [place] [facility] History of tobacco use [facility]ACCO FORMER USER [facility] History of tobacco use NSG NO TOBACCO USE PAST 30 DAYS 03/27/2022 [facility] History of tobacco use NSG NO TOBACCO USE PAST 30 DAYS 03/05/2022 [facility] History of tobacco use NSG NO TOBACCO USE PAST 30 DAYS 03/02/2022 [facility] History of tobacco use VA-TOBACCO QUIT 15 YRS OR MORE 06/28/2021 [facility] [place] [facility] History of tobacco use [place]-TO[place]ACCO FORMER USER 05/26/2020 [facility] [place] [facility] History of tobacco use [facility]-TO[facility]ACCO NEVER USED 05/23/2018 [facility] Plan of Care List of future care activities from Department of Veterans Affairs facilities. Additional future care activities may be listed in the Assessment and Plan section. Date/Time Care Activity Care Activity Detail Facili ty 07/20/2024 AMBULATORY - MEDICINE [facility] [facility] 08/14/2024 AMBULATORY - MEDICINE AM[facility]ULATORY - [facility] [facility] 10/07/2024 AMBULATORY - MEDICINE AMBULATORY - MEDICI [facility] [place] [facility] 10/28/2024 AMBULATORY - MEDICINE AMBULATORY - MEDICI [facility] [place] [facility] 06/06/2024 Consult Order [facility] RTHO GENERAL Cons Production Dispatcher's Choice [facility] [place] [facility] 06/26/2024 Consult Order [facility]-G EC NON-SKILLED HOME HEALTH AIDE Cons Production Dispatcher's Choice [facility] [facility] Advance Directives List of completed, amended, or rescinded Advance Directives on record at Department of Veterans Affairs facilities. An actual copy of the Directive is not included. Date Advance Directive Provider Source 02/19/2022 ADVANCE DIRECTIVE JOCE CASTORENA [facility] 11/16/2020 ADVANCE DIRECTIVE BYRON BARRON [facility]
--- OUTSIDE RECORDS SUMMARY | 2024-07-06 08:04 | XMS_ITS | Encounter Summary ---
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 Address [address] [place] [address] Care Team Providers Care English And Reading Instructor Name Role Phone BYRON BARRON Primary Care [...] Dec 19, 2007 MEDICAR E SUPPLEM E [id number] [phone] NYDIA HUERTA UL PATIENT [employer] MEDICARE SUPPLEMEN YORDAN Dec 19, 2007 MEDICAR E SUPPLEM E [id number] NYDIA HUERTA UL PATIENT [employer] [place] MEDICARE SUPPLEMEN YORDAN BANKE RS Dec 19, 2007 NONE [id number] NYDIA HUERTA UL PATIENT MEDICARE (WNR) MEDICARE (M) PART B Oct 13, 2006 PART B [id number] NYDIA HUERTA UL PATIENT MEDICARE (WNR) MEDICARE (M) PART B Oct 13, 2006 PART B [id number] NYDIA HUERTA PATIENT MEDICARE (WNR) MEDICARE (M) PART B Oct 13, 2006 PART B [id number] NYDIA HUERTA PATIENT MEDICARE (WNR) MEDICARE (M) PART B Oct 13, 2006 PART B [id number] [phone] NYDIA HUERTA PATIENT MEDICARE (WNR) MEDICARE (M) PART A Sep 13, 2003 PART A [id number] [phone] NYDIA HUERTA PATIENT MEDICARE (WNR) MEDICARE (M) PART A Sep 13, 2003 PART A [id number] NYDIA HUERTA PATIENT MEDICARE (WNR) MEDICARE (M) PART A Sep 13, 2003 PART A [id number] [phone] NYDIA HUERTA PATIENT MEDICARE (WNR) MEDICARE (M) PART A Sep 13, 2003 PART A [id number] NYDIA HUERTA PATIENT Selected Encounter This section includes the information on record at [place] for the Encounter. 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 [facility] Apr 08, 2024 02:01 PM SECONDARY Tinnitus, bilateral JHON PEREA [place] [facility] [place] [facility] Plan of Treatment: Future Appointments (+ 6 [...] 09:30 AM AMBULATORY - REHAB MEDICIN E [place] [facility] [place] [facility] Apr 13, 2024 01:30 PM AMBULATORY - MEDICINE [place] C [place] [facility] Apr 28, 2024 02:00 PM AMBULATORY - MEDICINE [place] [facility] May 05, 2024 02:00 PM AMBULATORY - REHAB MEDICIN E [place] [facility] [place] [facility] Jun 16, 2024 01:15 PM AMBULATORY - MEDICINE [place] [facility] Jul 20, 2024 08:00 AM AMBULATORY - MEDICINE [place] [facility] Aug 14, 2024 03:00 PM AMBULATORY - MEDICINE [facility] Lab Results: +/- 30 days of the [...] Range Comment Apr 07, 2024 07:31 AM [facility] LIVER FUNCTION Specimen Type: SERUM No comment entered. Ordering Provider: BYRON BARRON Report Released Date/Time: Apr 04, 2024 05:53 PM Reporting Lab: [facility] [address] [address] [address] Performing [facility]: [facility] [address] [address] PROTEIN,TOTAL 6.8 g/dL 6.0-8.3 ALBUMIN 4.0 g/dL 3.5-5.0 ALKALINE PHOSPHATASE 118 U/L 40-150 AST 30 U/L 5-34 ALT 23 U/L BILIRUBIN, TOTAL 1.0 mg/dL 0.2-1.2 Apr 07, 2024 07:31 AM [facility] BASIC METABOLIC PANEL (fasting) Specimen Type: SERUM No comment entered. Ordering Provider: BYRON BARRON Report Released Date/Time: Apr 04, 2024 05:53 PM Reporting Lab: [facility] [address] [address] Performing Lab: [facility] [address] [address] [address] UREA NITROGEN 22 mg/dL 7-25 GLUCOSE 93 mg/dL 65-100 SODIUM 139 mmol/L 135-145 POTASSIUM 3.9 mmol/L 3.5-5.0 CHLORIDE 102 mmol/L 100-110 CO2 26 meq/L 20-30 CREATININE, Serum 0.92 mg/dL 0.50-1.40 eGFR(CKD-EPI 2020) 82 mL/min >60 Apr 07, 2024 07:31 AM [facility] TSH Specimen Type: SERUM No comment entered. Ordering Provider: BYRON BARRON Report Released Date/Time: Apr 04, 2024 05:53 PM Reporting Lab: [facility] [address] [facility] [address] Performing Lab: [facility] [address] [facility] [address] TSH 2.34 u[IU]/mL 0.35-5.00 Apr 07, 2024 07:31 AM [facility] LIPID PANEL FASTING Specimen Type: SERUM No comment entered. Ordering Provider: BYRON BARRON Report Released Date/Time: Apr 04, 2024 05:53 PM Reporting Lab: [facility] [address] [address] Performing Lab: [address] [address] CHOLESTEROL 139 mg/dL TRIGLYCERIDE 136 mg/dL 0-150 LDL calculated 72 mg/dL 0-129 CHOL/HDL 3.5 HDL CHOLESTEROL 40 mg/dL 40-60 Apr 07, 2024 07:31 AM [facility] CBC AND DIFF (AUTO) Specimen Type: BLOOD No comment entered. Ordering Provider: BYRON BARRON Report Released Date/Time: Apr 04, 2024 05:53 PM Reporting Lab: [facility] [address] [facility] [address] Performing Lab: [address] [address] WBC 7.77 10*3/uL 4.50-11.00 RBC 4.29 10*6/uL [...] 10*3/uL 0.00-0.00 Apr 07, 2024 07:31 AM [facility] URINALYSIS CLEAN CATCH Specimen Type: URINE Comment: If Glucose = >500 and Ketones are positive, please alert the Physician. Ordering Provider: BYRON BARRON Report Released Date/Time: Apr 04, 2024 05:53 PM Reporting Lab: [address] [address] Performing Lab: [address] [place] [address] UA COLOR Yellow Yellow UA APPEARANCE Clear [...] PM 98.1 80 151/78 16 97 0 [facility] Social History: Smoking Status [...] 16, 2023 01:30 PM [facility]AC[facility] Tobacco Use History This section includes a history of the smoking, or tobacco-related health factors, that were collected on or before the date of the Encounter. The data comes from the [place] facility where the Encounter took place. Date/Time Smoking Status/Tobacco Use Comment F acility Oct 16, 2023 01:30 PM VA-TOBACCO QUIT 15 YRS OR MORE [place] [facility] [place] [facility] Jul 04, 2022 11:00 AM VA-TOBACCO FORMER USER [place] [facility] [facility] Jul 04, 2022 11:00 AM VA-TOBACCO QUIT 15 YRS OR MORE [facility] Jun 28, 2021 10:30 AM VA-TOBACCO FORMER USER [place] [facility] [place] [facility] Jun 28, 2021 10:30 AM VA-TOBACCO QUIT 15 YRS OR MORE [facility] May 26, 2020 08:00 AM [facility] May 26, 2020 08:00 AM [place]-TOBACCO QUIT 15 YRS OR [facility] May 23, 2018 11:21 AM VA-TOBACCO NEVER USED [facility] Advance Directives: All historical and current [...] Feb 19, 2022 ADVANCE DIRECTIVE JOCE CASTORENA [facility] November 16, 2020 ADVANCE DIRECTIVE BYRON BARRON [facility] Encounter Notes: All associated encounter notes [...] y/o FORMER smoker WHITE MALE, previously in [employer] FROM May TO Aug from PERIOD OF [...] 2. Aortic valve stenosis 3. Chest Pain ([facility] [id number]) 4. COPD - Chronic Obstructive Pulmonary Disease ([facility] [id number]) 5. HTN - Hypertension ([facility] [id number]) 6. Hypercholesterolemia ([facility] [id number]) 7. Cataract 8. Asbestosis Service Connected Disabilities [...] PROCEDURE NOTE - PERFORMED THIS VISIT CPT 90053 Cerumen removal, unilateral or bialteral Informed consent [...] to severe mixed hearing loss. Results from 4145-5221 Hz reflect testing with inserts, as those [...] He has previously had hearing aids through [email or web address] [facility]. He is not sure if 1 [...] this [facility] (local) and dispensed from another [place] or [facility] facility (remote) as well as [...] JLV. Allergies/ADRs (Tool #5) FACILITY ALLERGY/ADR -------- [facility] LIDOCAINE [facility] PROCAINE [place] [facility] Med Recon [facility] (Tool #1) INCLUDED IN THIS LIST: Alphabetical list of active outpatient prescriptions dispensed from this [place] (local) and dispensed from another [place] or [facility] facility (remote) as well as inpatient orders (local pending and active), local clinic medications, locally documented non-VA medications, and local prescriptions that have or been discontinued in the past 90 days. Non-VA Meds Last Documented On: Apr 09, 2022 NOTE The display of VA prescriptions dispensed from another [place] or [facility] facility (remote) is limited to active outpatient prescription entries matched to National Drug File at the originating site and may not include some items such as investigational drugs, compounds, etc. NOT INCLUDED IN THIS LIST: Medications self-entered by the patient into personal health records (i.e. [employer] are NOT included in this list. Non-VA [...] ONCE DAILY Patient wants to buy from Non-[place] pharmacy. OUTPT ATORVASTATIN CALCIUM 80MG TAB (Status = Active) TAKE ONE TABLET BY MOUTH AT BEDTIME Rx# [id number] Last Released: 03/19/24 Qty/Days Supply: Rx Expiration Date: 06/19/24 Refills Remainin OUTPT CEPHALEXIN 500MG CAP (Status = Active) TAKE ONE CAPSULE BY MOUTH EVERY 8 HOURS FOR INFECTION Rx# [id number] Last Released: 03/05/24 Qty/Days Supply: 01/02 Rx Expiration Date: 04/04/24 Refills Remainin Indication: FOR INFECTION CAUSED BY BACTERIA OUTPT EZETIMIBE 10MG TAB (Status = Active) TAKE ONE TABLET BY MOUTH ONCE DAILY TO LOWER CHOLESTEROL Rx# [id number] Last Released: 03/19/24 Qty/Days Supply: Rx Expiration Date: 06/19/24 Refills Remainin OUTPT FLUTICAS 250/SALMETEROL 50 INHL DISK 60 (Status = ) INHALE 1 PUFF BY MOUTH TWICE DAILY - RINSE MOUTH AFTER USE Rx# [id number] Last Released: 05/31/23 Qty/Days Supply: Rx Expiration Date: 03/07/24 Refills Remainin Indication: FOR BRONCHOSPASM PREVENTION WITH COPD OUTPT FLUTICASONE PROP 50MCG 120D NASAL INHL (Status = Active) INSTILL 1 SPRAY INTO EACH NOSTRIL ONCE DAILY NEEDED FOR NASAL IRRITATION/INFLAMMATION Rx# [id number] Last Released: 05/31/23 Qty/Days Supply: 08/13 Rx Expiration Date: 04/15/24 Refills Remainin Indication: FOR NASAL IRRITATION/INFLAMMATION OUTPT HYDROCHLOROTHIAZIDE 25MG TAB (Status = Active) TAKE ONE TABLET BY MOUTH ONCE DAILY Rx# [id number] Last Released: 01/06/24 Qty/Days Supply: Rx Expiration Date: 06/19/24 Refills Remainin OUTPT METOPROLOL SUCCINATE 50MG SA TAB (Status = Active) TAKE ONE TABLET BY MOUTH ONCE DAILY FOR BLOOD PRESSURE/HEART Rx# [id number] Last Released: 03/19/24 Qty/Days Supply: Rx Expiration Date: 06/19/24 Refills Remainin OUTPT TRIAMCINOLONE ACETONIDE 0.1% CREAM (Status = Active) APPLY A MODERATE AMOUNT TOPICALLY TWICE DAILY NEEDED FOR ITCHING Rx# [id number] Last Released: 10/28/23 Qty/Days Supply: Rx Expiration Date: 10/24/24 Refills Remainin Indication: FOR ITCHING SUPPLIES /eleanor/ Jhon Perea MD Otolaryngology Signed: 03/24/2024 14:39 JHON PEREA CNTRL WSTRN [facility]
--- OUTSIDE RECORDS SUMMARY | 2024-07-06 08:04 | XMS_ITS ---
Author Name [facility] [place] Address [address] [place] [address] Care Team Providers Care Systems Analyst Engineer Name Role Phone BYRON BARRON Primary Care [...] Dec 19, 2007 MEDICAR E SUPPLEM E [id number] [phone] NYDIA HUERTA PATIENT [employer] MEDICARE SUPPLEMEN YORDAN Dec 19, 2007 MEDICAR E SUPPLEM E [id number] [phone] NYDIA HUERTA UL PATIENT [employer] [place] MEDICARE SUPPLEMEN YORDAN BANKE RS Dec 19, 2007 NONE [id number] NYDIA HUERTA UL PATIENT MEDICARE (WNR) MEDICARE (M) PART B Oct 13, 2006 PART B [id number] NYDIA HUERTA UL PATIENT MEDICARE (WNR) MEDICARE (M) PART B Oct 13, 2006 PART B [id number] NYDIA HUERTA PATIENT MEDICARE (WNR) MEDICARE (M) PART B Oct 13, 2006 PART B [id number] NYDIA HUERTA PATIENT MEDICARE (WNR) MEDICARE (M) PART B Oct 13, 2006 PART B [id number] [phone] NYDIA HUERTA PATIENT MEDICARE (WNR) MEDICARE (M) PART A Sep 13, 2003 PART A [id number] [phone] NYDIA HUERTA PATIENT MEDICARE (WNR) MEDICARE (M) PART A Sep 13, 2003 PART A [id number] [phone] NYDIA HUERTA PATIENT MEDICARE (WNR) MEDICARE (M) PART A Sep 13, 2003 PART A [id number] NYDIA HUERTA PATIENT MEDICARE (WNR) MEDICARE (M) PART A Sep 13, 2003 PART A [id number] [phone] NYDIA HUERTA PATIENT Selected Encounter This section includes the information on record at [place] for the Encounter. Date/Time Encounter Type Encounter Description Reason Provider Source Mar 06, 2024 08:00 AM OFF/OP EST NOVEMBER X REQ PHY/QHP PRIMARY CARE/MEDICINE ICD-10-CM Z48.01 Encounter for change or removal of surgical wound dressing JW SIEGEL [facility] Encounter Template Text not used by [place] Assessments - Encounter Diagnoses This section includes the primary and secondary diagnoses documented for the Encounter. Date/Time Primary/Secondary Diagnosis Diagnosis Name Provider Source Mar 24, 2024 09:30 AM PRIMARY Encounter for change or removal of surgical wound dressing JW SIEGEL [place] [facility] [place] [facility] Plan of Treatment: Future Appointments [...] - MEDICINE [facility] C [facility] [place] [facility] Mar 31, 2024 09:30 AM AMBULATORY - REHAB MEDICIN E [facility] [place] [facility] Apr 13, 2024 01:30 PM AMBULATORY - MEDICINE [place] [facility] [place] [facility] Apr 28, 2024 02:00 PM AMBULATORY - MEDICINE [place] [facility] [place] [place] [facility] May 05, 2024 02:00 PM AMBULATORY - REHAB MEDICIN E [facility] [place] [facility] Jun 16, 2024 01:15 PM AMBULATORY - MEDICINE [place] C [facility] [place] [facility] Jul 20, 2024 08:00 AM AMBULATORY - MEDICINE [place] C [place] [facility] Aug 14, 2024 03:00 PM AMBULATORY - MEDICINE AR C [place] [facility] Social History: Smoking Status (Most [...] VA-TOBACCO FORMER USER [place] [facility] [place] [facility] Tobacco Use History This section includes a history of the smoking, or tobacco-related health factors, that were collected on or before the date of the Encounter. The data comes from the [place] facility where the Encounter took place. Date/Time Smoking Status/Tobacco Use Comment F acility Oct 16, 2023 01:30 PM VA-TOBACCO QUIT 15 YRS OR MORE [facility] [place] [facility] Jul 04, 2022 11:00 AM VA-TOBACCO FORMER USER [facility] [place] [facility] Jul 04, 2022 11:00 AM VA-TOBACCO QUIT 15 YRS OR MORE [facility] [place] [facility] Jun 28, 2021 10:30 AM VA-TOBACCO FORMER USER [facility] [place] [facility] Jun 28, 2021 10:30 AM VA-TOBACCO QUIT 15 YRS OR MORE [facility] [place] [facility] May 26, 2020 08:00 AM [facility]ACCO [facility] May 26, 2020 08:00 AM VA-TOBACCO QUIT [facility] YRS OR [facility] May 23, 2018 11:21 AM VA-TOBACCO NEVER USED [facility] Advance Directives: All historical and [...] Feb 19, 2022 ADVANCE DIRECTIVE JOCE CASTORENA [facility] November 16, 2020 ADVANCE DIRECTIVE BYRON BARRON [facility] Encounter Notes: All associated encounter notes This section contains the clinical notes associated to the Encounter. Date/Time Encounter Note(s) Provider Source Mar 06, 2024 08:45 AM PRIMARY CARE OUTPA TIENT NOTE: LOCAL TITLE: AMBULATORY/OUTPATIENT CARE NOTE STANDARD TITLE: PRIMARY CARE OUTPATIENT NOTE DATE OF NOTE: MAR 06, 2024@08:45 ENTRY DATE: MAR 06, 2024@08:45:14 AUTHOR: JW SIEGEL COSIGNER: URGENCY: STATUS: COMPLETED F: Dressing change D/A: presents to Sick call for a dressing change. Yesterday the fourth digit toenail on [place]'s left foot was removed. had one area where there was more adherence and started bleeding, pressure was applied, then silver nitrate. A pressure dressing was then applied afterwards and the bleeding stopped. [place] says that he did not note any bleeding through the dressing. Dressing removed. Utilized Normal Saline to remove the gauze directly on the toe. Noted dried blood, scabbing. No active bleeding. No signs of infection noted. Cleansed with Normal Saline, patted dry with 4 x 4s, applied bacitracin, Band-Aid and then secured with a small piece of Coban. Remaining Coban given to [place]. [place] and/or his daughter to change the dressing daily. Apply a small amount of triple antibiotic and cover with a Band Aid. Advised to RTC for persistent bleeding or infection R: RTC PRN for dressing change /es/ JW SIEGEL, MSN, RN, CNL PRIMARY CARE TEAM NURSE Signed: 03/06/2024 08:56 JW [facility]IEGEL [facility]
--- OUTSIDE RECORDS SUMMARY | 2024-07-06 08:04 | XMS_ITS ---
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 Organization [place] Address [address] [place] [id number] Care Team Providers Care Ear Flap Binder Name Role Phone BYRON BARRON Primary Care [...] Dec 19, 2007 MEDICAR E SUPPLEM E [id number] NYDIA HUERTA UL PATIENT [employer] MEDICARE SUPPLEMEN YORDAN Dec 19, 2007 MEDICAR E SUPPLEM E [id number] NYDIA HUERTA UL PATIENT [employer] CASUAL[employer] [place] MEDICARE SUPPLEMEN YORDAN BANKE RS Dec 19, 2007 NONE [id number] [phone] NYDIA HUERTA UL PATIENT MEDICARE (WNR) MEDICARE (M) PART B Oct 13, 2006 PART B [id number] [phone] NYDIA HUERTA UL PATIENT MEDICARE (WNR) MEDICARE (M) PART B Oct 13, 2006 PART B [id number] [phone] [place] UL PATIENT MEDICARE (WNR) MEDICARE (M) PART B Oct 13, 2006 PART B [id number] [phone] NYDIA HUERTA PATIENT MEDICARE (WNR) MEDICARE (M) PART B Oct 13, 2006 PART B [id number] NYDIA HUERTA PATIENT MEDICARE (WNR) MEDICARE (M) PART A Sep 13, 2003 PART A [id number] NYDIA HUERTA PATIENT MEDICARE (WNR) MEDICARE (M) PART A Sep 13, 2003 PART A [id number] [phone] NYDIA HUERTA PATIENT MEDICARE (WNR) MEDICARE (M) PART A Sep 13, 2003 PART A [id number] [phone] NYDIA HUERTA PATIENT MEDICARE (WNR) MEDICARE (M) PART A Sep 13, 2003 PART A [id number] NYDIA HUERTA PATIENT Selected Encounter This section includes the information on record at [place] for the Encounter. Date/Time Encounter Type Encounter Description Reason Pro vider Source Apr 09, 2024 02:18 PM Outpatient Encounter PRIMARY CARE/MEDICINE IHE Encounter Template Text not used by [place] Plan of Treatment: Future Appointments (+ 6 months) and Future Tests (+/- 45 days) The Plan of Treatment section includes future care activities for the patient from all [place] treatmentfacilities. This section includes future appointments and future orders which are active, pending or scheduled. Future Appointments This section includes appointments that were scheduled to occur 6 months from the date of the Encounter, up to a maximum of 20 appointments. The data comes from all [place] treatment facilities. Appointment Date/Time Appointment Type Appointme nt Facility Name Apr 13, 2024 01:30 PM AMBULATORY - [place]ICINE [place] [facility] [place] [place] [facility] Apr 28, 2024 02:00 PM AMBULATORY - MEDICINE [place] [facility] [place] [facility] May 05, 2024 02:00 PM AMBULATORY - REHAB MEDICIN [place] [facility] [place] [facility] Jun 16, 2024 01:15 PM AMBULATORY - MEDICINE [place] [facility] [place] [facility] Jul 20, 2024 08:00 AM AMBULATORY - MEDICINE [facility] Aug 14, 2024 03:00 PM AMBULATORY - MEDICINE [facility] Oct 07, 2024 09:00 AM AMBULATORY - MEDICINE [facility] Lab Results: +/- 30 days of the encounter This section includes the Chemistry and Hematology Lab Results on record with [place] for the patient. Radiology Reports and Pathology [...] Apr 04, 2024 05:53 PM Reporting Lab: [address] [address] Performing Lab: [address] [address] PROTEIN,TOTAL 6.8 g/dL 6.0-8.3 ALBUMIN 4.0 g/dL 3.5-5.0 ALKALINE PHOSPHATASE 118 U/L 40-150 AST 30 U/L 5-34 ALT 23 U/L BILIRUBIN, TOTAL 1.0 mg/dL 0.2-1.2 Apr 07, 2024 07:31 AM [facility] BASIC METABOLIC PANEL (fasting) Specimen Type: SERUM No comment entered. Ordering Provider: BYRON BARRON Report Released Date/Time: Apr 04, 2024 05:53 PM Reporting Lab: [address] [address] Performing Lab: [address] [address] UREA NITROGEN 22 mg/dL 7-25 GLUCOSE 93 mg/dL 65-100 SODIUM 139 mmol/L 135-145 POTASSIUM 3.9 mmol/L 3.5-5.0 CHLORIDE 102 mmol/L 100-110 CO2 26 meq/L 20-30 CREATININE, Serum 0.92 mg/dL 0.50-1.40 eGFR(CKD-EPI 2020) 82 mL/min >60 Apr 07, 2024 07:31 AM [facility] TSH Specimen Type: SERUM No comment entered. Ordering Provider: BYRON BARRON Report Released Date/Time: Apr 04, 2024 05:53 PM Reporting Lab: [facility] [address] [facility] [address] Performing Lab: [address] [address] TSH 2.34 u[IU]/mL 0.35-5.00 Apr 07, 2024 07:31 AM [facility] CBC AND DIFF (AUTO) Specimen Type: BLOOD No comment entered. Ordering Provider: BYRON BARRON Report Released Date/Time: Apr 04, 2024 05:53 PM Reporting Lab: [facility] [address] [facility] [address] Performing Lab: [address] [address] WBC 7.77 10*3/uL 4.50-11.00 RBC 4.29 10*6/uL [...] 2024 07:31 AM [facility] LIPID PANEL FASTING Specimen Type: SERUM No comment entered. Ordering Provider: BYRON BARRON Report Released Date/Time: Apr 04, 2024 05:53 PM Reporting Lab: [address] [address] Performing Lab: [address] [address] CHOLESTEROL 139 mg/dL TRIGLYCERIDE 136 mg/dL 0-150 LDL calculated 72 mg/dL 0-129 CHOL/HDL 3.5 HDL CHOLESTEROL 40 mg/dL 40-60 Apr 07, 2024 07:31 AM [facility] URINALYSIS CLEAN CATCH Specimen Type: URINE Comment: If Glucose = >500 and Ketones are positive, please alert the Physician. Ordering Provider: BYRON BARRON Report Released Date/Time: Apr 04, 2024 05:53 PM Reporting Lab: [address] [address] Performing Lab: [address] [address] UA COLOR Yellow Yellow UA APPEARANCE Clear [...] and tobacco- related health factors from the [facility] where the Encounter took place. Current Smoking Status This section includes the most current smoking, or tobacco-related health factor, from the [place] facility where the Encounter took place. Date/Time Current Smoking Status Comment Darling ity Oct 16, 2023 01:30 PM VA-TOBACCO QUIT 15 YRS OR MORE [facility] Tobacco Use History This section includes a history of the smoking, or tobacco-related health factors, that were collected on or before the date of the Encounter. The data comes from the [place] facility where the Encounter took place. Date/Time Smoking Status/Tobacco Use Comment F acility Oct 16, 2023 01:30 PM VA-TOBACCO QUIT 15 YRS OR MORE [place] [facility] [place] [facility] Jul 04, 2022 11:00 AM VA-TOBACCO FORMER USER [place] [facility] [place] [facility] Jul 04, 2022 11:00 AM VA-TOBACCO QUIT 15 YRS OR MORE [place] [facility] [place] [facility] Jun 28, 2021 10:30 AM VA-TOBACCO FORMER USER [place] [facility] [place] [facility] Jun 28, 2021 10:30 AM VA-TOBACCO QUIT 15 YRS OR MORE [place] [facility] [place] [facility] May 26, 2020 08:00 AM VA-TOBACCO FORMER USER [place] [facility] [place] [facility] May 26, 2020 08:00 AM VA-TOBACCO QUIT 15 YRS OR MORE [place] [facility] [place] [facility] May 23, 2018 11:21 AM [facility] Advance Directives: All historical and current Section Date Range: From patient's date of to the date document was created. This section includes ALL of a patient's completed or amended [place] Advance and Rescinded Directives. The entries below indicate that a directive exists for the patient, but an actual copy is not included with this document. The data comes from all [place] facilities. Date Advance Directives Provider Source Feb 19, 2022 ADVANCE DIRECTIVE JOCE CASTORENA [place] [facility] November 16, 2020 ADVANCE DIRECTIVE BYRON BARRON [facility] Encounter Notes: All associated encounter notes [...] to your upcoming appt. [X] Location in [facility] [ ] Fasting labs [ ] Lab work within 30 days [ ] Urine [ ] No Preparation Action taken: [ ] Called , left voice message [ ] Called , unable to leave voice mail [X] Spoke to /medicare interviewer to remind them of upcoming appt/preparations Upcoming Appointments: 04/13/2024 13:30 CWM/NO/PACT 2 04/28/2024 14:00 CWM/NO/DERMATOLOGY GIRL 05/05/2024 14:00 CWM NO AUDIO HAF B 08/14/2024 15:00 NHM/OPTOMETRY/CALDERON/ /es/ JOCE CASTORENA AMSA Signed: 04/09/2024 14:18 JOCE CASTORENA [place] [facility]
--- OUTSIDE RECORDS SUMMARY | 2024-07-06 08:04 | XMS_ITS ---
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 Organization [place] Address [address] [place] [address] Care Team Providers Care Elevated Motorman Name Role Phone BYRON BARRON Primary Care [...] Dec 19, 2007 MEDICAR E SUPPLEM E [id number] [phone] NYDIA HUERTA UL PATIENT [employer] MEDICARE SUPPLEMEN YORDAN Dec 19, 2007 MEDICAR E SUPPLEM E [id number] NYDIA HUERTA UL PATIENT [employer] [place] MEDICARE SUPPLEMEN YORDAN BANKE RS Dec 19, 2007 NONE [id number] NYDIA HUERTA UL PATIENT MEDICARE (WNR) MEDICARE (M) PART B Oct 13, 2006 PART B [id number] [facility] NYDIA HUERTA UL PATIENT MEDICARE (WNR) MEDICARE (M) PART B Oct 13, 2006 PART B [id number] [facility] NYDIA HUERTA UL PATIENT MEDICARE (WNR) MEDICARE (M) PART B Oct 13, 2006 PART B [id number] NYDIA HUERTA PATIENT MEDICARE (WNR) MEDICARE (M) PART B Oct 13, 2006 PART B [id number] [phone] NYDIA HUERTA PATIENT MEDICARE (WNR) MEDICARE (M) PART A Sep 13, 2003 PART A [id number] NYDIA HUERTA PATIENT MEDICARE (WNR) MEDICARE (M) PART A Sep 13, 2003 PART A [id number] [phone] NYDIA HUERTA PATIENT MEDICARE (WNR) MEDICARE (M) PART A Sep 13, 2003 PART A [id number] NYDIA HUERTA PATIENT MEDICARE (WNR) MEDICARE (M) PART A Sep 13, 2003 PART A [id number] [phone] NYDIA HUERTA PATIENT Selected Encounter This section includes the information on record at [place] for the Encounter. Date/Time Encounter Type Encounter Description Reason Provider Source May 05, 2024 02:00 PM [facility]FORM[facility] EVALUATION AUDIOLOGY ICD-10-CM Z46.1 Encounter for fitting and adjustment of hearing aid SAAD HARRINGTON [facility] Encounter Template Text not used by [place] Assessments - Encounter Diagnoses This section includes the primary and secondary diagnoses documented for the Encounter. Date/Time Primary/Secondary Diagnosis Diagnosis Name Provider Source May 05, 2024 02:35 PM PRIMARY Encounter for fitting and adjustment of hearing aid SAAD HARRINGTON [facility] [place] [facility] May 05, 2024 02:35 PM SECONDARY Mixed conductive and sensorineural hearing loss, bilateral SAAD HARRINGTON [facility] [place] [facility] Plan of Treatment: Future Appointments [...] 16, 2024 01:15 PM AMBULATORY [facility] Jul 20, 2024 08:00 AM AMBULATORY - MEDICINE [facility] N[facility]L [facility] Aug 14, 2024 03:00 PM AMBULATORY - MEDICINE [facility] Oct 07, 2024 09:00 AM AMBULATORY - MEDICINE [facility] Oct 28, 2024 08:00 AM [facility] Active, Pending, and Scheduled Orders This section includes a listing of several types of active, pending, and scheduled orders, including clinic medications orders, diagnostic test orders, procedure orders and consult orders; where the start date of the order is 45 days before the date of the Encounter or 45 days after the date of theEncounter. The data comes from all [place] treatment [facility]. Test Date/Time Test Type Test Details Facility Name Jun 06, 2024 04:26 PM Consult Order ON LICENSE OF [facility] Cons Visual Design Lead's Choice [facility] Lab Results: +/- 30 days of the [...] Range Comment Apr 07, 2024 07:31 AM [facility] LIVER FUNCTION Specimen Type: SERUM No comment entered. Ordering Provider: BYRON BARRON Report Released Date/Time: Apr 04, 2024 05:53 PM Reporting Lab: [facility] [address] [facility] [address] Performing Lab: [address] [address] PROTEIN,TOTAL 6.8 g/dL 6.0-8.3 ALBUMIN 4.0 g/dL 3.5-5.0 ALKALINE PHOSPHATASE 118 U/L 40-150 AST 30 U/L 5-34 ALT 23 U/L BILIRUBIN, TOTAL 1.0 mg/dL 0.2-1.2 Apr 07, 2024 07:31 AM [facility] BASIC METABOLIC PANEL (fasting) Specimen Type: SERUM No comment entered. Ordering Provider: BYRON BARRON Report Released Date/Time: Apr 04, 2024 05:53 PM Reporting Lab: [facility] [address] [facility] [address] Performing Lab: [facility] [address] [facility] [address] UREA NITROGEN 22 mg/dL 7-25 GLUCOSE 93 mg/dL 65-100 SODIUM 139 mmol/L 135-145 POTASSIUM 3.9 mmol/L 3.5-5.0 CHLORIDE 102 mmol/L 100-110 CO2 26 meq/L 20-30 CREATININE, Serum 0.92 mg/dL 0.50-1.40 eGFR(CKD-EPI 2020) 82 mL/min >60 Apr 07, 2024 07:31 AM [facility] TSH Specimen Type: SERUM No comment entered. Ordering Provider: BYRON BARRON Report Released Date/Time: Apr 04, 2024 05:53 PM Reporting Lab: [facility] [address] [facility] [address] Performing Lab: [facility] [address] TSH 2.34 u[IU]/mL 0.35-5.00 Apr 07, 2024 07:31 AM [facility] LIPID PANEL FASTING Specimen Type: SERUM No comment entered. Ordering Provider: BYRON BARRON Report Released Date/Time: Apr 04, 2024 05:53 PM Reporting Lab: [facility] [address] [facility] [address] Performing Lab: [facility] [address] CHOLESTEROL 139 mg/dL TRIGLYCERIDE 136 mg/dL 0-150 LDL calculated 72 mg/dL 0-129 CHOL/HDL 3.5 HDL CHOLESTEROL 40 mg/dL 40-60 Apr 07, 2024 07:31 AM [facility] CBC AND DIFF (AUTO) Specimen Type: BLOOD No comment entered. Ordering Provider: BYRON BARRON Report Released Date/Time: Apr 04, 2024 05:53 PM Reporting Lab: [facility] [address] [facility] [address] Performing Lab: [address] [address] WBC 7.77 10*3/uL 4.50-11.00 RBC 4.29 10*6/uL [...] 10*3/uL 0.00-0.00 Apr 07, 2024 07:31 AM [facility] URINALYSIS CLEAN CATCH Specimen Type: URINE Comment: If Glucose = >500 and Ketones are positive, please alert the Physician. Ordering Provider: BYRON BARRON Report Released Date/Time: Apr 04, 2024 05:53 PM Reporting Lab: [address] [address] Performing Lab: [facility] [place] [facility] [address] [facility] [address] UA COLOR Yellow Yellow UA APPEARANCE Clear [...] 16, 2023 01:30 PM VA-TOBACCO FORMER USER [place] [facility] [place] [facility] Tobacco Use History This section includes a history of the smoking, or tobacco-related health factors, that were collected on or before the date of the Encounter. The data comes from the [place] facility where the Encounter took place. Date/Time Smoking Status/Tobacco Use Comment F acgary Oct 16, 2023 01:30 PM VA-TOBACCO QUIT 15 YRS OR MORE [facility] [place] [facility] Jul 04, 2022 11:00 AM VA-TOBACCO FORMER USER [facility] [place] [facility] Jul 04, 2022 11:00 AM VA-TOBACCO QUIT 15 YRS OR MORE [facility] [place] [facility] Jun 28, 2021 10:30 AM VA-TOBACCO FORMER USER [facility] [place] [facility] Jun 28, 2021 10:30 AM VA-TOBACCO QUIT 15 YRS OR MORE [facility] [place] [facility] May 26, 2020 08:00 AM VA-TOBACCO FORMER USER [facility] [place] [facility] May 26, 2020 08:00 AM VA-TOBACCO QUIT 15 YRS OR MORE [facility] [place] [facility] May 23, 2018 11:21 AM [...] Feb 19, 2022 ADVANCE DIRECTIVE JOCE CASTORENA [facility] November 16, 2020 ADVANCE DIRECTIVE BYRON BARRON [facility] Encounter Notes: All associated encounter notes This section contains the clinical notes associated to the Encounter. Date/Time Encounter Note(s) Provider Source May 05, 2024 11:52 AM AUDIOLOGY E & M NO TE: [facility] TITLE: AUDIOLOGY CLINIC STANDARD TITLE: AUDIOLOGY E & M NOTE DATE OF NOTE: MAY 05, 2024@11:52 ENTRY DATE: MAY 05, 2024@11:52:53 AUTHOR: SAAD HARRINGTON COSIGNER: URGENCY: STATUS: COMPLETED Diagnosis: mixed hearing loss Hearing Aid Fitting: SUBJECTIVE (S): The Beatrice was seen for hearing aid fitting and issuance. S/He had previously been evaluated and found to exhibit significant hearing loss for which amplification was recommended. How does the patient/client best learn? verbal instruction, demonstration Does the patient/client have any cultural and sikh beliefs, emotional barriers, physical or cognitive limitations, and communication barriers which may impact his/her ability to learn? no Desire and motivation to learn? Good OBJECTIVE (O): Physical fit of earmolds/receivers and domes/hearing aids was good. verified comfort. Verification of an appropriate acoustic response was obtained using Real Ear measurements (speech mapping) and NAL- NL1 targets. The reported good subjective benefit as well. Feedback night manager was run. Hearing aids were found to be meeting targets adequately and MPO was not exceeding estimated UCL. Settings stored in LARA. ASSESSMENT (A): The following device(s) was/were issued: Make: Bonita Model: Evolv BTE R Serial Numbers:[id number] Battery size: RECHARGEABLE Trial Period ends: 09-30-24 Domes/wax guards, etc.: n/a Earmold Information: clear lucite canal lock Needleworker size/power: n/a Program Settings (VC, Programs, Buttons): [...] was given written reference materials today. The Beatrice was informed of and agreed to [place] policy on hearing aid issuance: Users are responsible for the maintenance and security of their devices. Determination of need to replace a hearing aid is made by the [place] home economics teacher. 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
--- OUTSIDE RECORDS SUMMARY | 2024-07-06 08:04 | XMS_ITS | Encounter Summary ---
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 [place] Organization [facility] [place] Address [address] [place] [id number] Care Team Providers Care Living Nurse Name Role Phone BYRON BARRON Primary Care [...] Dec 19, 2007 MEDICAR E SUPPLEM E [id number] [phone] NYDIA HUERTA UL PATIENT [employer] MEDICARE SUPPLEMEN YORDAN Dec 19, 2007 MEDICAR E SUPPLEM E [id number] NYDIA HUERTA UL PATIENT [employer] [place] MEDICARE SUPPLEMEN YORDAN BANKE RS Dec 19, 2007 NONE [id number] NYDIA HUERTA UL PATIENT MEDICARE (WNR) MEDICARE (M) PART B Oct 13, 2006 PART B [id number] NYDIA HUERTA UL PATIENT MEDICARE (WNR) MEDICARE (M) PART B Oct 13, 2006 PART B [id number] NYDIA HUERTA UL PATIENT MEDICARE (WNR) MEDICARE (M) PART B Oct 13, 2006 PART B [id number] NYDIA HUERTA PATIENT MEDICARE (WNR) MEDICARE (M) PART B Oct 13, 2006 PART B [id number] NYDIA HUERTA PATIENT MEDICARE (WNR) MEDICARE (M) PART A Sep 13, 2003 PART A [id number] NYDIA HUERTA PATIENT MEDICARE (WNR) MEDICARE (M) PART A Sep 13, 2003 PART A [id number] [phone] NYDIA HUERTA PATIENT MEDICARE (WNR) MEDICARE (M) PART A Sep 13, 2003 PART A [id number] NYDIA HUERTA PATIENT MEDICARE (WNR) MEDICARE (M) PART A Sep 13, 2003 PART A [id number] NYDIA HUERTA PATIENT Selected Encounter This section includes the information on record at [place] for the Encounter. Date/Time Encounter Type Encounter Description Reason Pro vider Source Jan 13, 2024 12:00 AM Outpatient Encounter EVENT (HISTORICAL) IHE Encounter Template Text not used by [place] Plan of Treatment: Future Appointments (+ 6 months) and Future Tests (+/- 45 days) The Plan of Treatment section includes future care activities for the patient from all [place] treatmentfacilities. This section includes future appointments and future orders which are active, pending or scheduled. Future Appointments This section includes appointments that were scheduled to occur 6 months from the date of the Encounter, up to a maximum of 20 appointments. The data comes from all [place] treatment facilities. Appointment Date/Time Appointment Type Appointme nt Facility Name Jan 21, 2024 08:00 AM AMBULATORY - MEDICINE [place] [facility] [place] [facility] Feb 03, 2024 01:30 PM AMBULATORY - REHAB MEDICIN E [place] [facility] [place] [facility] Mar 05, 2024 08:00 AM AMBULATORY - MEDICINE [place] [facility] [place] [facility] Mar 05, 2024 09:00 AM AMBULATORY - MEDICINE [place] [facility] [place] [facility] Mar 06, 2024 08:00 AM AMBULATORY - MEDICINE [place] [facility] [place] [facility] Mar 24, 2024 02:00 PM AMBULATORY - MEDICINE [place] [facility] [place] [facility] Mar 31, 2024 09:30 AM AMBULATORY - REHAB MEDICIN E [facility] [place] [facility] Apr 13, 2024 01:30 PM AMBULATORY - MEDICINE [place] [facility] [place] [facility] Apr 28, 2024 02:00 PM AMBULATORY - MEDICINE [place] [facility] [place] [facility] May 05, 2024 02:00 PM AMBULATORY - REHAB MEDICIN E [facility] [place] [facility] Jun 16, 2024 01:15 PM AMBULATORY - MEDICINE [place] [facility] [place] [facility] Social History: Smoking Status (Most current) and Tobacco Use (All prior to encounter date) This section includes the most current, and the historical, smoking and tobacco- related health factors from the [place] facility where the Encounter took place. Current Smoking Status This section includes the most current smoking, or tobacco-related health factor, from the [place] facility where the Encounter took place. Date/Time Current Smoking Status Comment Facil ity Oct 16, 2023 01:30 PM VA-TOBACCO FORMER USER [place] [facility] [place] [facility] Tobacco Use History This section includes a history of the smoking, or tobacco-related health factors, that were collected on or before the date of the Encounter. The data comes from the [place] facility where the Encounter took place. Date/Time Smoking Status/Tobacco Use Comment F acility Oct 16, 2023 01:30 PM VA-TOBACCO QUIT 15 YRS OR MORE VA [facility] [place] [facility] Jul 04, 2022 11:00 AM VA-TOBACCO FORMER USER VA [facility] [place] [facility] Jul 04, 2022 11:00 AM VA-TOBACCO QUIT 15 YRS OR MORE [facility] [place] [facility] Jun 28, 2021 10:30 AM VA-TOBACCO FORMER USER [facility] [place] [facility] Jun 28, 2021 10:30 AM VA-TOBACCO QUIT 15 YRS OR MORE [facility] [place] [facility] May 26, 2020 08:00 AM VA-TOBACCO FORMER USER [facility] [place] [facility] May 26, 2020 08:00 AM VA-TOBACCO QUIT 15 YRS OR MORE [facility] May 23, 2018 11:21 AM CA-TOBACCO NEVER USED [facility] Advance Directives: All historical and current Section Date Range: From patient's date of to the date document was created. This section includes ALL of a patient's completed or amended [place] Advance and Rescinded Directives. The entries below indicate that a directive exists for the patient, but an actual copy is not included with this document. The data comes from all [place] facilities. Date Advance Directives Provider Source Feb [...] REQUIRED Electronically Filed: 04/22/2024 by: SHANNON GARDUNO [facility]
--- OUTSIDE RECORDS SUMMARY | 2024-07-06 08:04 | XMS_ITS | Encounter Summary ---
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 Address [address] [place] [address] Care Team Providers Care Fur Finisher Name Role Phone BYRON BARRON Primary Care [...] Dec 19, 2007 MEDICAR E SUPPLEM E [id number] NYDIA HUERTA UL PATIENT [employer] MEDICARE SUPPLEMEN YORDAN Dec 19, 2007 MEDICAR E SUPPLEM E [id number] [phone] NYDIA HUERTA UL PATIENT [employer] [place] MEDICARE SUPPLEMEN YORDAN BANKE RS Dec 19, 2007 NONE [id number] NYDIA HUERTA UL PATIENT MEDICARE (WNR) MEDICARE (M) PART B Oct 13, 2006 PART B [id number] NYDIA HUERTA UL PATIENT MEDICARE (WNR) MEDICARE (M) PART B Oct 13, 2006 PART B [id number] [phone] [place] UL PATIENT MEDICARE (WNR) MEDICARE (M) PART B Oct 13, 2006 PART B [id number] NYDIA HUERTA PATIENT MEDICARE (WNR) MEDICARE (M) PART B Oct 13, 2006 PART B [id number] NYDIA HUERTA PATIENT MEDICARE (WNR) MEDICARE (M) PART A Sep 13, 2003 PART A [id number] NYDIA HUERTA PATIENT MEDICARE (WNR) MEDICARE (M) PART A Sep 13, 2003 PART A [id number] [phone] NYDIA HUERTA PATIENT MEDICARE (WNR) MEDICARE (M) PART A Sep 13, 2003 PART A [id number] NYDIA HUERTA PATIENT MEDICARE (WNR) MEDICARE (M) PART A Sep 13, 2003 PART A [id number] NYDIA HUERTA PATIENT Selected Encounter This [...] 05, 2024 08:00 AM AMBULATORY - MEDICINE [place] [facility] [place] [facility] Mar 05, 2024 09:00 AM AMBULATORY - MEDICINE [place] [facility] [place] [facility] Mar 06, 2024 08:00 AM AMBULATORY - MEDICINE [place] [facility] [place] [facility] Mar 24, 2024 02:00 PM AMBULATORY - MEDICINE [place] [facility] [place] [facility] Mar 31, 2024 09:30 AM AMBULATORY - REHAB MEDICIN E [place] [facility] [place] [facility] Apr 13, 2024 01:30 PM AMBULATORY - MEDICINE [place] [facility] [place] [facility] Apr 28, 2024 02:00 PM AMBULATORY - MEDICINE [place] [facility] [place] [facility] May 05, 2024 02:00 PM AMBULATORY - REHAB MEDICIN E [place] [facility] [place] [facility] Jun 16, 2024 01:15 PM AMBULATORY - MEDICINE [place] [facility] [place] [facility] Jul 20, 2024 08:00 AM AMBULATORY - MEDICINE [place] [facility] [place] [facility] Aug 14, 2024 03:00 PM AMBULATORY - MEDICINE NE [facility] [place] [facility] Social History: Smoking Status (Most current) [...] 2023 01:30 PM VA-TOBACCO FORMER USER [place] [facility] [place] [facility] Tobacco Use History This section includes a history of the smoking, or tobacco-related health factors, that were collected on or before the date of the Encounter. The data comes from the [place] facility where the Encounter took place. Date/Time Smoking Status/Tobacco Use Comment F acility Oct 16, 2023 01:30 PM VA-TOBACCO QUIT 15 YRS OR MORE [place] [facility] [place] [facility] Jul 04, 2022 11:00 AM VA-TOBACCO FORMER USER [facility] [place] [facility] Jul 04, 2022 11:00 AM VA-TOBACCO QUIT 15 YRS OR MORE [facility] [place] [facility] Jun 28, 2021 10:30 AM VA-TOBACCO FORMER USER [place] [facility] [place] [facility] Jun 28, 2021 10:30 AM VA-TOBACCO QUIT 15 YRS OR MORE [facility] [place] [facility] May 26, 2020 08:00 AM VA-TOBACCO FORMER USER [place] [facility] [place] [facility] May 26, 2020 08:00 AM VA-TOBACCO QUIT [facility] YRS [facility] May 23, 2018 11:21 AM [...] ADVANCE DIRECTIVE BYRON BARRON [facility] Encounter Notes: All associated encounter notes This section contains the clinical notes associated to the Encounter. Date/Time Encounter Note(s) Provider Source Mar 04, 2024 09:51 AM ADMINISTRATIVE NOT E: LOCAL TITLE: [facility]: SCHEDULING ADMINISTRATION STANDARD TITLE: ADMINISTRATIVE NOTE DATE OF NOTE: MAR 04, 2024@09:51:22 ENTRY DATE: MAR 04, 2024@09:51:22 AUTHOR: BRIDGER STORM EXP COSIGNER: URGENCY: STATUS: COMPLETED Patient Demographics Patient Name: ALYCIA HUERTA Patient Primary Phone: [phone] Patient Primary Address: [address] [place] [id number] Patient : 1940 Patient Age: 83 Call Back Number: [phone] Caller/Recipient Relation to Patient: Self Administrative Administrative Note Reason: Other Administrative Note Comments: Finley spoke with [facility] range manager. Needs f2f within 8 hours for infected toe. No openings. Finley will go to . IMPORTANT: This note was created by [facility] Clinical Contact Center staff. Please do not alert the staff member by adding them as a signer for future communications. Alerts are not monitored by this user. /eleanor/ BRIDGER STORM Signed: 03/04/2024 09:51 Receipt Acknowledged By: 03/04/2024 10:13 /es/ Kerry Dumont MSN RN CNL Primary Care RN for JOSIE KINGSTON 03/04/2024 10:02 /es/ COBY MAHER, CUSTOMS OPENER VERIFIER PACKER BRIDGER RUSSELL [facility]
--- OUTSIDE RECORDS SUMMARY | 2024-07-06 08:04 | XMS_ITS ---
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 Organization [place] Address [address] [place] [address] Care Team Providers Care Construction Executive Name Role Phone BYRON BARRON Primary [...] Dec 19, 2007 MEDICAR E SUPPLEM E [id number] NYDIA HUERTA UL PATIENT [employer] MEDICARE SUPPLEMEN YORDAN Dec 19, 2007 MEDICAR E SUPPLEM E [id number] [phone] NYDIA HUERTA UL PATIENT [employer] CO MEDICARE SUPPLEMEN YORDAN BANKE RS Dec 19, 2007 NONE [id number] NYDIA HUERTA UL PATIENT MEDICARE (WNR) MEDICARE (M) PART B Oct 13, 2006 PART B [id number] [phone] NYDIA HUERTA UL PATIENT MEDICARE (WNR) MEDICARE (M) PART B Oct 13, 2006 PART B [id number] [phone] [place] PATIENT MEDICARE (WNR) MEDICARE (M) PART B Oct 13, 2006 PART B [id number] NYDIA HUERTA PATIENT MEDICARE (WNR) MEDICARE (M) PART B Oct 13, 2006 PART B [id number] [phone] NYDIA HUERTA PATIENT MEDICARE (WNR) MEDICARE (M) PART A Sep 13, 2003 PART A [id number] NYDIA HUERTA PATIENT MEDICARE (WNR) MEDICARE (M) PART A Sep 13, 2003 PART A [id number] NYDIA HUERTA PATIENT MEDICARE (WNR) MEDICARE (M) PART A Sep 13, 2003 PART A [id number] [phone] NYDIA HUERTA PATIENT MEDICARE (WNR) MEDICARE (M) PART A Sep 13, 2003 PART A [id number] [phone] NYDIA HUERTA PATIENT Selected Encounter This [...] - MEDICINE [place] [facility] [place] [facility] May 05, 2024 02:00 PM AMBULATORY - REHAB MEDICIN E [place] [facility] [place] [facility] Jun 16, 2024 01:15 PM AMBULATORY - MEDICINE [place] [facility] [place] [facility] Jul 20, 2024 08:00 AM AMBULATORY - MEDICINE [place] [facility] [place] [facility] Aug 14, 2024 03:00 PM AMBULATORY - MEDICINE [place] C [facility] Oct 07, 2024 09:00 AM AMBULATORY - MEDICINE [facility] Lab Results: +/- 30 days [...] Range Comment Apr 07, 2024 07:31 AM [facility] LIVER FUNCTION Specimen Type: SERUM No comment entered. Ordering Provider: BYRON BARRON Report Released Date/Time: Apr 04, 2024 05:53 PM Reporting Lab: [address] [address] Performing Lab: [address] [address] PROTEIN,TOTAL 6.8 g/dL 6.0-8.3 ALBUMIN 4.0 g/dL 3.5-5.0 ALKALINE PHOSPHATASE 118 U/L 40-150 AST 30 U/L 5-34 ALT 23 U/L BILIRUBIN, TOTAL 1.0 mg/dL 0.2-1.2 Apr 07, 2024 07:31 AM [facility] BASIC METABOLIC PANEL (fasting) Specimen Type: SERUM No comment entered. Ordering Provider: BYRON BARRON Report Released Date/Time: Apr 04, 2024 05:53 PM Reporting Lab: [address] [address] Performing Lab: [address] [address] UREA NITROGEN 22 mg/dL 7-25 GLUCOSE 93 mg/dL 65-100 SODIUM 139 mmol/L 135-145 POTASSIUM 3.9 mmol/L 3.5-5.0 CHLORIDE 102 mmol/L 100-110 CO2 26 meq/L 20-30 CREATININE, Serum 0.92 mg/dL 0.50-1.40 eGFR(CKD-EPI 2020) 82 mL/min >60 Apr 07, 2024 07:31 AM [facility] TSH Specimen Type: SERUM No comment entered. Ordering Provider: YBRON BARRON Report Released Date/Time: Apr 04, 2024 05:53 PM Reporting Lab: [address] [address] Performing Lab: [address] [address] TSH 2.34 u[IU]/mL 0.35-5.00 Apr 07, 2024 07:31 AM [facility] CBC AND DIFF (AUTO) Specimen Type: BLOOD No comment entered. Ordering Provider: BYRON BARRON Report Released Date/Time: Apr 04, 2024 05:53 PM Reporting Lab: [address] [address] Performing Lab: [address] [address] WBC 7.77 10*3/uL 4.50-11.00 RBC 4.29 10*6/uL [...] 10*3/uL 0.00-0.00 Apr 07, 2024 07:31 AM [facility] LIPID PANEL FASTING Specimen Type: SERUM No comment entered. Ordering Provider: BYRON BARRON Report Released Date/Time: Apr 04, 2024 05:53 PM Reporting Lab: [address] [address] Performing Lab: [address] [address] CHOLESTEROL 139 mg/dL TRIGLYCERIDE 136 mg/dL 0-150 LDL calculated 72 mg/dL 0-129 CHOL/HDL 3.5 HDL CHOLESTEROL 40 mg/dL 40-60 Apr 07, 2024 07:31 AM [facility] URINALYSIS CLEAN CATCH Specimen Type: URINE Comment: If Glucose = >500 and Ketones are positive, please alert the Physician. Ordering Provider: BYRON BARRON Report Released Date/Time: Apr 04, 2024 05:53 PM Reporting Lab: [address] [address] Performing Lab: [address] [address] UA COLOR Yellow Yellow UA APPEARANCE Clear [...] viktoria Oct 16, 2023 01:30 PM VA-TOBACCO QUIT 15 YRS OR MORE [facility] Tobacco Use History This section includes a history of the smoking, or tobacco-related health factors, that were collected on or before the date of the Encounter. The data comes from the [place] facility where the Encounter took place. Date/Time Smoking Status/Tobacco Use Comment F acility Oct 16, 2023 01:30 PM VA-TOBACCO QUIT 15 YRS OR MORE [place] [facility] [place] [facility] Jul 04, 2022 11:00 AM VA-TOBACCO FORMER USER [place] [facility] [place] [facility] Jul 04, 2022 11:00 AM VA-TOBACCO QUIT 15 YRS OR MORE [place] [facility] [place] [facility] Jun 28, 2021 10:30 AM VA-TOBACCO FORMER USER [place] [facility] [place] [facility] Jun 28, 2021 10:30 AM VA-TOBACCO QUIT 15 YRS OR MORE [place] [facility] [place] [facility] May 26, 2020 08:00 AM VA-TOBACCO FORMER USER [place] [facility] [place] [facility] May 26, 2020 08:00 AM VA-TOBACCO QUIT 15 YRS OR MORE [place] [facility] [place] [facility] May 23, 2018 11:21 AM [facility] Advance Directives: All historical and [...] Feb 19, 2022 ADVANCE DIRECTIVE [facility] November 16, 2020 ADVANCE DIRECTIVE BYRON BARRON [facility] Encounter Notes: All associated encounter notes This section contains the clinical notes associated to the Encounter. Date/Time Encounter Note(s) Provider Source Apr 14, 2024 12:00 PM NONVA CONSULT: LOCAL TITLE: COMMUNITY CARE-CONSULT RESULT NOTE STANDARD TITLE: NONVA CONSULT DATE OF NOTE: APR 14, 2024@12:00 ENTRY DATE: MAY 07, 2024@12:34:25 AUTHOR: RAMONITA MEDRANO COSIGNER: URGENCY: STATUS: COMPLETED VistA Imaging - Scanned Document SCANNED DOCUMENT SIGNATURE NOT REQUIRED Electronically Filed: 05/07/2024 by: RAMONITA SANCHEZ [facility]
--- OUTSIDE RECORDS SUMMARY | 2024-07-06 08:04 | XMS_ITS ---
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 Address [address] [place] [id number] Care Team Providers Care Breakfast And Room Attendant Name Role Phone JOSUE SIMMONS Primary Care [...] Dec 19, 2007 MEDICAR E SUPPLEM E [id number] NYDIA HUERTA UL PATIENT [employer] MEDICARE SUPPLEMEN YORDAN Dec 19, 2007 MEDICAR E SUPPLEM E [id number] NYDIA HUERTA UL PATIENT [employer] [place] MEDICARE SUPPLEMEN YORDAN BANKE RS Dec 19, 2007 NONE [id number] [phone] NYDIA HUERTA UL PATIENT MEDICARE (WNR) MEDICARE (M) PART B Oct 13, 2006 PART B [id number] NYDIA HUERTA UL PATIENT MEDICARE (WNR) MEDICARE (M) PART B Oct 13, 2006 PART B [id number] [phone] [place] UL PATIENT MEDICARE (WNR) MEDICARE (M) PART B Oct 13, 2006 PART B [id number] NYDIA HUERTA PATIENT MEDICARE (WNR) MEDICARE (M) PART B Oct 13, 2006 PART B [id number] [phone] NYDIA HUERTA PATIENT MEDICARE (WNR) MEDICARE (M) PART A Sep 13, 2003 PART A [id number] [phone] NYDIA HUERTA PATIENT MEDICARE (WNR) MEDICARE (M) PART A Sep 13, 2003 PART A [id number] NYDIA HUERTA PATIENT MEDICARE (WNR) MEDICARE (M) PART A Sep 13, 2003 PART A [id number] NYDIA HUERTA PATIENT MEDICARE (WNR) MEDICARE (M) PART A Sep 13, 2003 PART A [id number] [phone] NYDIA HUERTA PATIENT Selected Encounter This [...] 28, 2024 02:00 PM AMBULATORY - MEDICINE [place] [facility] [place] [facility] May 05, 2024 02:00 PM AMBULATORY - [place] MEDICIN [place] [facility] [place] [facility] Jun 16, 2024 01:15 PM AMBULATORY - MEDICINE [place] [facility] [place] [facility] Jul 20, 2024 08:00 AM AMBULATORY - MEDICINE [place] [facility] [place] [facility] Aug 14, 2024 03:00 PM AMBULATORY - MEDICINE [facility] Oct 07, 2024 09:00 AM AMBULATORY - MEDICINE [facility] Active, Pending, and Scheduled Orders This section includes a listing of several types of active, pending, and scheduled orders, including clinic medications orders, diagnostic test orders, procedure orders and consult orders; where the start date of the order is 45 days before the date of the Encounter or 45 days after the date of theEncounter. The data comes from all [place] treatment facilities. Test Date/Time Test Type Test Details Facility Name Jun 06, 2024 04:26 PM Consult Order [facility] Cons Environmental Marketing Representative's Choice [facility] Lab Results: +/- 30 days of the encounter This section includes the Chemistry and Hematology Lab Results on record with [place] for the patient. Radiology Reports and Pathology Reports are provided separately, in subsequent sections. Lab Results This section contains the Chemistry/Hematology Results that were resulted 30 days before or 30 daysafter the date of the Encounter. Date/Time Source Result Type Result - Unit Interpretation Reference Range Comment Apr 07, 2024 07:31 AM [facility] LIVER FUNCTION Specimen Type: SERUM No comment entered. Ordering Provider: JOSUE SIMMONS Report Released Date/Time: Apr 04, 2024 05:53 PM Reporting Lab: [address] [address] Performing Lab: [address] [address] PROTEIN,TOTAL 6.8 g/dL 6.0-8.3 ALBUMIN 4.0 g/dL 3.5-5.0 ALKALINE PHOSPHATASE 118 U/L 40-150 AST 30 U/L 5-34 ALT 23 U/L BILIRUBIN, TOTAL 1.0 mg/dL 0.2-1.2 Apr 07, 2024 07:31 AM [facility] BASIC METABOLIC PANEL (fasting) Specimen Type: SERUM No comment entered. Ordering Provider: JOSUE SIMMONS Report Released Date/Time: Apr 04, 2024 05:53 PM Reporting Lab: [address] [address] Performing Lab: [facility] [address] [facility] [address] UREA NITROGEN 22 mg/dL 7-25 GLUCOSE 93 mg/dL 65-100 SODIUM 139 mmol/L 135-145 POTASSIUM 3.9 mmol/L 3.5-5.0 CHLORIDE 102 mmol/L 100-110 CO2 26 meq/L 20-30 CREATININE, Serum 0.92 mg/dL 0.50-1.40 eGFR(CKD-EPI 2020) 82 mL/min >60 Apr 07, 2024 07:31 AM [facility] TSH Specimen Type: SERUM No comment entered. Ordering Provider: JOSUE SIMMONS Report Released Date/Time: Apr 04, 2024 05:53 PM Reporting Lab: [address] [address] Performing Lab: [address] [address] TSH 2.34 u[IU]/mL 0.35-5.00 Apr 07, 2024 07:31 AM [facility] LIPID PANEL FASTING Specimen Type: SERUM No comment entered. Ordering Provider: JOSUE SIMMONS Report Released Date/Time: Apr 04, 2024 05:53 PM Reporting Lab: [address] [address] Performing Lab: [address] [address] CHOLESTEROL 139 mg/dL TRIGLYCERIDE 136 mg/dL 0-150 LDL calculated 72 mg/dL 0-129 CHOL/HDL 3.5 HDL CHOLESTEROL 40 mg/dL 40-60 Apr 07, 2024 07:31 AM [facility] CBC AND DIFF (AUTO) Specimen Type: BLOOD No comment entered. Ordering Provider: JOSUE SIMMONS Report Released Date/Time: Apr 04, 2024 05:53 PM Reporting Lab: [address] [address] Performing Lab: [address] [address] WBC 7.77 10*3/uL 4.50-11.00 RBC 4.29 10*6/uL [...] 10*3/uL 0.00-0.00 Apr 07, 2024 07:31 AM [facility] URINALYSIS CLEAN CATCH Specimen Type: URINE Comment: If Glucose = >500 and Ketones are positive, please alert the Physician. Ordering Provider: JOSUE SIMMONS Report Released Date/Time: Apr 04, 2024 05:53 PM Reporting Lab: [address] [address] Performing Lab: [address] [address] UA COLOR Yellow Yellow UA APPEARANCE Clear [...] YRS OR MORE [place] [facility] [place] [facility] Tobacco Use History This section includes a history of the smoking, or tobacco-related health factors, that were collected on or before the date of the Encounter. The data comes from the [place] facility where the Encounter took place. Date/Time Smoking Status/Tobacco Use Comment F acility Oct 16, 2023 01:30 PM [place]-TOBACCO QUIT 15 YRS OR MORE [place] [facility] [place] [facility] Jul 04, 2022 11:00 AM VA-TOBACCO FORMER USER [place] [facility] [place] [facility] Jul 04, 2022 11:00 AM VA-TOBACCO QUIT 15 YRS OR MORE [place] [facility] [place] [facility] Jun 28, 2021 10:30 AM VA-TOBACCO FORMER USER [place] [facility] [place] [facility] Jun 28, 2021 10:30 AM VA-TOBACCO QUIT 15 YRS OR MORE [place] [facility] [place] [facility] May 26, 2020 08:00 AM VA-TOBACCO FORMER USER [place] [facility] [place] [facility] May 26, 2020 08:00 AM VA-TOBACCO QUIT 15 YRS OR MORE [place] [facility] [place] [facility] May 23, 2018 11:21 AM VA-TOBACCO NEVER USED [place] [facility] [place] [facility] Advance Directives: All historical and current Section Date Range: From patient's date of to the date document was created. This section includes ALL of a patient's completed or amended [place] Advance and Rescinded Directives. The entries below indicate that a directive exists for the patient, but an actual copy is not included with this document. The data comes from all [place] facilities. Date Advance Directives Provider Source Feb 19, 2022 ADVANCE DIRECTIVE JOCE CASTORENA [facility] November 16, 2020 ADVANCE DIRECTIVE JOSUE SIMMONS [facility] Encounter Notes: All associated [...] URGENCY: STATUS: COMPLETED 04-14-24 office visit Demetrius Contreras [facility] Orthopedics Chief complaint: Postop visit Left ankle fibula ORIF closed fracture 01-21-[address] Candis Valdze changed to splint Plan: Continue physical therapy Follow-up 2 months /eleanor/ Josue Simmons MD Staff Physician Signed: 04/23/2024 15:52 JOSUE SIMMONS [facility]
--- OUTSIDE RECORDS SUMMARY | 2024-07-06 08:04 | XMS_ITS | Encounter Summary ---
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 Address [address] [place] [address] Care Team Providers Care Loft Worker Pile Driving Name Role Phone BYRON BARRON Primary Care [...] Dec 19, 2007 MEDICAR E SUPPLEM E [id number] NYDIA HUERTA UL PATIENT [employer] MEDICARE SUPPLEMEN YORDAN Dec 19, 2007 MEDICAR E SUPPLEM E [id number] NYDIA HUERTA UL PATIENT [employer] [place] MEDICARE SUPPLEMEN YORDAN BANKE RS Dec 19, 2007 NONE [id number] [phone] NYDIA HUERTA UL PATIENT MEDICARE (WNR) MEDICARE (M) PART B Oct 13, 2006 PART B [id number] [phone] NYDIA HUERTA UL PATIENT MEDICARE (WNR) MEDICARE (M) PART B Oct 13, 2006 PART B [id number] [place] UL PATIENT MEDICARE (WNR) MEDICARE (M) PART B Oct 13, 2006 PART B [id number] NYDIA HUERTA PATIENT MEDICARE (WNR) MEDICARE (M) PART B Oct 13, 2006 PART B [id number] NYDIA HUERTA PATIENT MEDICARE (WNR) MEDICARE (M) PART A Sep 13, 2003 PART A [id number] NYDIA HUERTA PATIENT MEDICARE (WNR) MEDICARE (M) PART A Sep 13, 2003 PART A [id number] NYDIA HUERTA PATIENT MEDICARE (WNR) MEDICARE (M) PART A Sep 13, 2003 PART A [id number] NYDIA HUERTA PATIENT MEDICARE (WNR) MEDICARE (M) PART A Sep 13, 2003 PART A [id number] NYDIA HUERTA PATIENT Selected Encounter This section includes the information on record at [place] for the Encounter. 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 Date/Time Primary/Secondary Diagnosis Diagnosis Name Provider Source Mar 20, 2024 12:50 PM [facility] Mar 20, 2024 12:50 PM SECONDARY Unsp open wound of left lesser toe(s) w damage to nail, init [facility] Plan of Treatment: Future Appointments (+ 6 months) and Future Tests (+/- 45 days) The Plan of Treatment section includes future care activities for the patient from all [place] treatmentfacilities. This section includes future appointments and future orders which are active, pending or scheduled. Future Appointments This section includes appointments that were scheduled to occur 6 months from the date of the Encounter, up to a maximum of 20 appointments. The data comes from all [place] treatment facilities. Appointment Date/Time Appointment Type Appointme nt Facility Name Mar 06, 2024 08:00 AM AMBULATORY - [place]ICINE [place] [facility] [place] [facility] Mar 24, 2024 02:00 PM AMBULATORY - [place]ICINE [place] [facility] [place] [facility] Mar 31, 2024 09:30 AM AMBULATORY - REHAB MEDICIN E [facility] [place] [facility] Apr 13, 2024 01:30 PM AMBULATORY - MEDICINE [place] [facility] [place] [facility] Apr 28, 2024 02:00 PM AMBULATORY - [place]ICINE [place] [facility] [place] [facility] May 05, 2024 02:00 PM AMBULATORY - REHAB MEDICIN [place] [facility] [place] [facility] Jun 16, 2024 01:15 PM AMBULATORY - MEDICINE [place] [facility] [place] [facility] Jul 20, 2024 08:00 AM AMBULATORY - [place]ICINE [place] [facility] [place] [facility] Aug 14, 2024 03:00 PM [facility] Vital Signs: All taken on the encounter date This section contains inpatient and outpatient Vital Signs collected on the date of the Encounter. Date/Time Temperature Pulse Blood Pressure Respiratory Rate SP02 Pain Height Weight Body Mass Index Source Mar 05, 2024 08:39 AM 97.5 71 170/65 16 98 1 [facility] Social History: Smoking Status (Most current) and Tobacco Use (All prior to encounter date) This section includes the most current, and the historical, smoking and tobacco- related health factors from the [place] facility where the Encounter took place. Current Smoking Status This section includes the most current smoking, or tobacco-related health factor, from the [place] facility where the Encounter took place. Date/Time Current Smoking Status Comment Facil ity Oct 16, 2023 01:30 PM [place]-TOBACCO QUIT 15 YRS OR MORE [facility] Tobacco Use History This section includes a history of the smoking, or tobacco-related health factors, that were collected on or before the date of the Encounter. The data comes from the [place] facility where the Encounter took place. Date/Time Smoking Status/Tobacco Use Comment F acility Oct 16, 2023 01:30 PM VA-TOBACCO QUIT 15 YRS OR MORE [facility] [place] [facility] Jul 04, 2022 11:00 AM VA-TOBACCO FORMER USER [place] [facility] [place] [facility] Jul 04, 2022 11:00 AM VA-TOBACCO QUIT 15 YRS OR MORE [place] [facility] [place] [facility] Jun 28, 2021 10:30 AM VA-TOBACCO FORMER USER [place] [facility] [place] [facility] Jun 28, 2021 10:30 AM VA-TOBACCO QUIT 15 YRS OR MORE [place] [facility] [place] [facility] May 26, 2020 08:00 AM VA-TOBACCO FORMER USER [place] [facility] [place] [facility] May 26, 2020 08:00 AM VA-TOBACCO QUIT 15 YRS OR MORE [place] [facility] [place] [facility] May 23, 2018 11:21 AM VA-TOBACCO NEVER USED [place] [facility] Advance Directives: All historical and current Section Date Range: From patient's date of to the date document was created. This section includes ALL of a patient's completed or amended [place] Advance and Rescinded Directives. The entries below indicate that a directive exists for the patient, but an actual copy is not included with this document. The data comes from all [place] facilities. Date Advance Directives Provider Source Feb 19, 2022 ADVANCE DIRECTIVE JOCE CASTORENA [place] [facility] [place] [facility] November 16, 2020 ADVANCE DIRECTIVE BYRON BARRNO [place] [facility] Encounter Notes: All associated encounter notes This section contains the clinical notes associated to the Encounter. 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 >> MEDICATIONS Reviewed and reconciled with /eleanor/ ISAK MC MS,PA-C PHYSICIAN MAKE READY WORKER Signed: 03/05/2024 09:41 ISAK STERN [place] [facility]
--- OUTSIDE RECORDS SUMMARY | 2024-07-06 08:04 | XMS_ITS ---
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 Screener And Blender Operator Name Role Phone JOSUE BARRON Primary Care [...] Dec 19, 2007 MEDICAR E SUPPLEM E [id number] NYDIA HUERTA UL PATIENT [employer] MEDICARE SUPPLEMEN YORDAN Dec 19, 2007 MEDICAR E SUPPLEM E [id number] NYDIA HUERTA UL PATIENT [employer] [place] MED[place] SUPPLEMEN YORDAN BANKE RS Dec 19, 2007 NONE [id number] NYDIA HUERTA UL PATIENT MEDICARE (WNR) MEDICARE (M) PART B Oct 13, 2006 PART B [id number] [phone] NYDIA HUERTA UL PATIENT MEDICARE (WNR) MEDICARE (M) PART B Oct 13, 2006 PART B [id number] DOM[place] UL PATIENT MEDICARE (WNR) MEDICARE (M) PART B Oct 13, 2006 PART B [id number] NYDIA HUERTA PATIENT MEDICARE (WNR) MEDICARE (M) PART B Oct 13, 2006 PART B [id number] NYDIA HUERTA PATIENT MEDICARE (WNR) MEDICARE (M) PART A Sep 13, 2003 PART A [id number] NYDIA HUERTA PATIENT MEDICARE (WNR) MEDICARE (M) PART A Sep 13, 2003 PART A [id number] NYDIA HUERTA PATIENT MEDICARE (WNR) MEDICARE (M) PART A Sep 13, 2003 PART A [id number] NYDIA HUERTA PATIENT MEDICARE (WNR) MEDICARE (M) PART A Sep 13, 2003 PART A [id number] NYDIA HUERTA PATIENT Selected Encounter This section includes the information on record at [place] for the Encounter. Date/Time Encounter Type Encounter Description Reason Provider Source Apr 13, 2024 01:30 PM OFFICE O/P EST LOW 20 MIN PRIMARY CARE/MEDICINE ICD-10-CM I10 Essential (primary) hypertension JOSUE BARRON [facility] Encounter Template Text not used by [place] Assessments - Encounter Diagnoses This section includes the primary and secondary diagnoses documented for the Encounter. Date/Time Primary/Secondary Diagnosis Diagnosis Name Provider Source Apr 26, 2024 07:52 AM PRIMARY Essential (primary) hypertension JOSUE BARRON [facility] Apr 26, 2024 07:52 AM SECONDARY Encounter for immunization ALMA MAHER [facility] Plan of Treatment: Future Appointments (+ [...] MEDICINE [place] [facility] May 05, 2024 02:00 PM AMBULATORY - REHAB MEDICIN E [facility] [place] [facility] Jun 16, 2024 01:15 PM AMBULATORY - MEDICINE [place] [facility] Jul 20, 2024 08:00 AM AMBULATORY - MEDICINE [place] [facility] Aug 14, 2024 03:00 PM AMBULATORY - MEDICINE [place] [facility] Oct 07, 2024 09:00 AM [facility]ULAT[facility] Lab Results: +/- 30 days of the encounter This section includes the Chemistry and Hematology Lab Results on record with [place] for the patient. Radiology Reports and Pathology Reports are provided separately, in subsequent sections. Lab Results This section contains the Chemistry/Hematology Results that were resulted 30 days before or 30 daysafter the date of the Encounter. Date/Time Source Result Type Result - Unit Interpretation Reference Range Comment Apr 07, 2024 07:31 AM [facility] LIVER FUNCTION Specimen Type: SERUM No comment entered. Ordering Provider: JOSUE BARRON Report Released Date/Time: Apr 04, 2024 05:53 PM Reporting Lab: [facility] [address] [address] Performing Lab: [address] [address] PROTEIN,TOTAL 6.8 g/dL 6.0-8.3 ALBUMIN 4.0 g/dL 3.5-5.0 ALKALINE PHOSPHATASE 118 U/L 40-150 AST 30 U/L 5-34 ALT 23 U/L BILIRUBIN, TOTAL 1.0 mg/dL 0.2-1.2 Apr 07, 2024 07:31 AM [facility] BASIC METABOLIC PANEL (fasting) Specimen Type: SERUM No comment entered. Ordering Provider: JOSUE BARRON Report Released Date/Time: Apr 04, 2024 05:53 PM Reporting Lab: [address] [address] Performing Lab: [address] [place] [address] UREA NITROGEN 22 mg/dL 7-25 GLUCOSE 93 mg/dL 65-100 SODIUM 139 mmol/L 135-145 POTASSIUM 3.9 mmol/L 3.5-5.0 CHLORIDE 102 mmol/L 100-110 CO2 26 meq/L 20-30 CREATININE, Serum 0.92 mg/dL 0.50-1.40 eGFR(CKD-EPI 2020) 82 mL/min >60 Apr 07, 2024 07:31 AM [facility] TSH Specimen Type: SERUM No comment entered. Ordering Provider: JOSUE BARRON Report Released Date/Time: Apr 04, 2024 05:53 PM Reporting Lab: [address] [address] Performing Lab: [address] [address] TSH 2.34 u[IU]/mL 0.35-5.00 Apr 07, 2024 07:31 AM [facility] LIPID PANEL FASTING Specimen Type: SERUM No comment entered. Ordering Provider: JOSUE BARRON Report Released Date/Time: Apr 04, 2024 05:53 PM Reporting Lab: [address] [address] Performing Lab: [address] [address] CHOLESTEROL 139 mg/dL TRIGLYCERIDE 136 mg/dL 0-150 LDL calculated 72 mg/dL 0-129 CHOL/HDL 3.5 HDL CHOLESTEROL 40 mg/dL 40-60 Apr 07, 2024 07:31 AM [facility] CBC AND DIFF (AUTO) Specimen Type: BLOOD No comment entered. Ordering Provider: JOSUE BARRON Report Released Date/Time: Apr 04, 2024 05:53 PM Reporting Lab: [address] [address] Performing Lab: [address] [address] WBC 7.77 10*3/uL 4.50-11.00 RBC 4.29 10*6/uL [...] 10*3/uL 0.00-0.00 Apr 07, 2024 07:31 AM [facility] URINALYSIS CLEAN CATCH Specimen Type: URINE Comment: If Glucose = >500 and Ketones are positive, please alert the Physician. Ordering Provider: JOSUE BARRON Report Released Date/Time: Apr 04, 2024 05:53 PM Reporting Lab: [address] [address] Performing Lab: [address] [address] UA COLOR Yellow Yellow UA APPEARANCE Clear [...] Source Apr 13, 2024 01:49 PM 136/66 [place] [facility] [facility] Apr 13, 2024 01:23 PM 97.8 73 162/70 16 96 0 66 193.8 31 [place] [facility] [place] [facility] Immunizations: All administered on the encounter date [...] 16, 2023 01:30 PM VA-TOBACCO FORMER USER [place] [facility] Tobacco Use History This section includes a history of the smoking, or tobacco-related health factors, that were collected on or before the date of the Encounter. The data comes from the [place] facility where the Encounter took place. Date/Time Smoking Status/Tobacco Use Comment [facility] Oct 16, 2023 01:30 PM VA-TOBACCO QUIT 15 YRS OR MORE [place] [facility] Jul 04, 2022 11:00 AM VA-TOBACCO FORMER USER [place] [place] [facility] Jul 04, 2022 11:00 AM VA-TOBACCO QUIT 15 YRS OR MORE [place] [facility] Jun 28, 2021 10:30 AM VA-TOBACCO FORMER USER [place] [facility] [place] [facility] Jun 28, 2021 10:30 AM VA-TOBACCO QUIT 15 YRS OR MORE [place] [facility] May 26, 2020 08:00 AM VA-TOBACCO FORMER USER [place] [facility] May 26, 2020 08:00 AM VA-TOBACCO QUIT 15 YRS OR MORE [place] [facility] May 23, 2018 11:21 AM VA-TOBACCO NEVER USED [facility] Advance Directives: All historical and current [...] Feb 19, 2022 ADVANCE DIRECTIVE [facility] November 16, 2020 ADVANCE DIRECTIVE JOSUE BARRON [facility] Encounter Notes: All associated encounter notes This section contains the clinical notes associated to the Encounter. 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 /eleanor/ Josue Latham. MD Iris Staff Physician Signed: 04/13/2024 13:53 Receipt Acknowledged By: 04/13/2024 14:13 /eleanor/ BREE MONTILLA, [facility] RECRUITING MANAGER JOSUE BARRON [place] [facility] Apr 13, 2024 01:27 PM PREVENTIVE MEDICINE [...] Screen No incontinence. Suicide Screen: C-SSRS Screening [place] Suicide Severity Rating Scale (C-SSRS) screener 1. [...] an Advance Directive on file at this [facility]. No updates are needed at this [...] Administered: Apr 13, 2024 13:30 Series: Complete Color Worker: SANOFI PASTEUR Lot: [id number] Exp Date: Jan 11, 2025 ND: [id number] Admin Route/Site: INTRAMUSCULAR/LEFT DELTOID Dosage: 0.5mL Vaccine Information Statement(s): INFLUENZA(FLU) VACC(INACTIVATED OR RECOMBINANT)VIS Feb 17, 2021 ([facility]ARIC) Order By: Policy Administered By: Leigh Maher [...] Apr 13, 2024 13:30 Series: Series 7 Color Worker: [employer] Lot: [id number] Exp Date: December 04, 2024 NDC: [id number] Admin Route/Site: INTRAMUSCULAR/LEFT DELTOID Dosage: 0.5mL Vaccine Information Statement(s): COVID-19 MRNA VACCINE (12+ YRS) VACCINE VIS May 02, 2023 ([facility]ARIC) Order By: Policy Administered By: Leigh Maher Vaccine administered without complications. /tena MAHER LPN LPN Signed: 04/13/2024 14:10 LEIGH MAHER [place] [facility]
--- OUTSIDE RECORDS SUMMARY | 2024-07-06 08:04 | XMS_ITS ---
Author Name [facility] [place] [facility] [place] [facility] [place] Address [address] [place] [id number] Care Team Providers Care Leather Tooler Name Role Phone BYRON BARRON Primary Care [...] Dec 19, 2007 MEDICAR E SUPPLEM E [id number] NYDIA HUERTA PATIENT [employer] MEDICARE SUPPLEMEN YORDAN Dec 19, 2007 MEDICAR E SUPPLEM E [id number] [phone] NYDIA HUERTA UL PATIENT [employer] [place] MED[place]ARE SUPPLEMEN YORDAN BANKE RS Dec 19, 2007 NONE [id number] [phone] NYDIA HUERTA UL PATIENT MEDICARE (WNR) MEDICARE (M) PART B Oct 13, 2006 PART B [id number] NYDIA HUERTA UL PATIENT MEDICARE (WNR) MEDICARE (M) PART B Oct 13, 2006 PART B [id number] [id number] NYDIA HUERTA PATIENT MEDICARE (WNR) MEDICARE (M) PART B Oct 13, 2006 PART B [id number] NYDIA HUERTA PATIENT MEDICARE (WNR) MEDICARE (M) PART B Oct 13, 2006 PART B [id number] [phone] NYDIA HUERTA PATIENT MEDICARE (WNR) MEDICARE (M) PART A Sep 13, 2003 PART A [id number] NYDIA HUERTA PATIENT MEDICARE (WNR) MEDICARE (M) PART A Sep 13, 2003 PART A [id number] [phone] NYDIA HUERTA PATIENT MEDICARE (WNR) MEDICARE (M) PART A Sep 13, 2003 PART A [id number] NYDIA HUERTA PATIENT MEDICARE (WNR) MEDICARE (M) PART A Sep 13, 2003 PART A [id number] NYDIA HUERTA PATIENT Selected Encounter This section includes the information on record at [place] for the Encounter. Date/Time Encounter Type Encounter Description Reason Provider Source Mar 05, 2024 08:00 AM OFF/OP EST NOVEMBER X REQ PHY/QHP PRIMARY CARE/MEDICINE ICD-10-CM Z71.89 Other specified counseling STEPHANIE BANKS [facility] Encounter Template Text not used by [place] Assessments - Encounter Diagnoses This section includes the primary and secondary diagnoses documented for the Encounter. Date/Time Primary/Secondary Diagnosis Diagnosis Name Provider Source Mar 20, 2024 12:36 PM PRIMARY Other specified counseling STEPHANIE BANKS [facility] Plan of Treatment: Future Appointments (+ [...] 06, 2024 08:00 AM AMBULATORY - MEDICINE [facility] Mar 24, 2024 02:00 PM AMBULATORY - MEDICINE [place] [facility] Mar 31, 2024 09:30 AM AMBULATORY - REHAB MEDICIN E [facility] [place] [facility] Apr 13, 2024 01:30 PM AMBULATORY - MEDICINE [place] [facility] Apr 28, 2024 02:00 PM AMBULATORY - MEDICINE [place] [facility] May 05, 2024 02:00 PM AMBULATORY - REHAB MEDICIN E [place] [place] [facility] Jun 16, 2024 01:15 PM AMBULATORY - MEDICINE [place] [facility] Jul 20, 2024 08:00 AM AMBULATORY - MEDICINE [place] [facility] Aug 14, 2024 03:00 PM AMBULATORY - MEDICINE [place] [facility] Vital Signs: All taken on the encounter date This section contains inpatient and outpatient Vital Signs collected on the date of the Encounter. Date/Time Temperature Pulse Blood Pressure Respiratory Rate SP02 Pain Height Weight Body Mass Index Source Mar 05, 2024 08:39 AM 97.5 71 170/65 16 98 1 [place] [facility] [place] [facility] Social History: Smoking Status (Most current) and [...] VA-TOBACCO FORMER USER [place] [facility] Tobacco Use History This section includes a history of the smoking, or tobacco-related health factors, that were collected on or before the date of the Encounter. The data comes from the [place] facility where the Encounter took place. Date/Time Smoking Status/Tobacco Use Comment F acility Oct 16, 2023 01:30 PM VA-TOBACCO QUIT 15 YRS OR MORE [place] [facility] Jul 04, 2022 11:00 AM VA-TOBACCO FORMER USER [place] [facility] Jul 04, 2022 11:00 AM VA-TOBACCO QUIT 15 YRS OR MORE [place] [facility] Jun 28, 2021 10:30 AM VA-TOBACCO FORMER USER [place] [facility] Jun 28, 2021 10:30 AM VA-TOBACCO QUIT 15 YRS OR MORE [place] [facility] May 26, 2020 08:00 AM VA-TOBACCO FORMER USER [place] [facility] May 26, 2020 08:00 AM VA-TOBACCO QUIT 15 YRS OR MORE [place] [facility] [facility] May 23, 2018 11:21 AM [facility]ACCO [facility] Advance Directives: All historical [...] Feb 19, 2022 ADVANCE DIRECTIVE JOCE CASTORENA [facility] November 16, 2020 ADVANCE DIRECTIVE [facility]ON [facility] Encounter Notes: All associated encounter notes This section contains the clinical notes associated to the Encounter. Date/Time Encounter Note(s) Provider Source Mar 05, 2024 08:34 AM PRIMARY CARE OUTPA TIENT NOTE: LOCAL TITLE: AMBULATORY/OUTPATIENT CARE NOTE STANDARD TITLE: PRIMARY CARE OUTPATIENT NOTE DATE OF NOTE: MAR 05, 2024@08:34 ENTRY DATE: MAR 05, 2024@08:34:40 AUTHOR: STEPHANIE BANKS COSIGNER: URGENCY: STATUS: COMPLETED Domina 0350 Gonzales came to clinic today per instruction. Yesterdays call center note: Gonzales explains he fractured his left ankle approx. 8 weeks ago. and had surgical repair for it approx. 7 weeks ago through [facility]. Gonzales now wearing a walking a boot. Calling [...] PCP and have it taken care of. did contact a civilian undergraduate internship but they cannot see him until His 4th toe on left foot, nail is coming off. /eleanor/ Stephanie Banks RN, BSN Primary Care Signed: 03/05/2024 09:20 STEPHANIE BANKS [place] [facility] [place] [facility]
--- OUTSIDE RECORDS SUMMARY | 2024-07-06 08:04 | XMS_ITS | Encounter Summary ---
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 Address [address] [place] [address] Care Team Providers Care Doubler Operator Name Role Phone BYRON BARRON Primary [...] Dec 19, 2007 MEDICAR E SUPPLEM E [id number] NYDIA HUERTA PATIENT [employer] MEDICARE SUPPLEMEN YORDAN Dec 19, 2007 MEDICAR E SUPPLEM E [id number] NYDIA HUERTA UL PATIENT [employer] CASUAL[employer] [place] MEDICARE SUPPLEMEN YORDAN BANKE RS Dec 19, 2007 NONE [id number] [phone] NYDIA HUERTA PATIENT MEDICARE (WNR) MEDICARE (M) PART B Oct 13, 2006 PART B [id number] NYDIA HUERTA UL PATIENT MEDICARE (WNR) MEDICARE (M) PART B Oct 13, 2006 PART B [id number] NYDIA HUERTA PATIENT MEDICARE (WNR) MEDICARE (M) PART B Oct 13, 2006 PART B [id number] [phone] NYDIA HUERTA PATIENT MEDICARE (WNR) MEDICARE (M) PART B Oct 13, 2006 PART B [id number] NYDIA HUERTA PATIENT MEDICARE (WNR) MEDICARE (M) PART A Sep 13, 2003 PART A [id number] NYDIA HUERTA UL PATIENT MEDICARE (WNR) MEDICARE (M) PART A Sep 13, 2003 PART A [id number] NYDIA HUERTA PATIENT MEDICARE (WNR) MEDICARE (M) PART A Sep 13, 2003 PART A [id number] NYDIA HUERTA PATIENT MEDICARE (WNR) MEDICARE (M) PART A Sep 13, 2003 PART A [id number] NYDIA HUERTA PATIENT Selected Encounter This [...] other malignant neoplasm of skin LAITH RODRIGUEZ [facility] [place] [facility] May 08, 2024 11:59 AM SECONDARY Hemangioma of skin and subcutaneous tissue LAITH RODRIGUEZ [facility] [place] [facility] May 08, 2024 11:59 AM SECONDARY Inflamed seborrheic keratosis LAITH RODRIGUEZ [facility] [place] [facility] May 08, 2024 11:59 AM SECONDARY Nevus, non-neoplastic LAITH RODRIGUEZ [facility] [place] [facility] May 08, 2024 11:59 AM SECONDARY Other melanin hyperpigmentation [facility] [place] [facility] May 08, 2024 11:59 AM SECONDARY Other seborrheic keratosis [facility] [facility] May 08, 2024 11:59 AM SECONDARY Xerosis cutis [facility] Plan of Treatment: Future Appointments (+ 6 months) and Future Tests (+/- 45 days) The Plan of Treatment section includes future care activities for the patient from all [place] [facility]. This section includes future appointments and future orders which are active, pending or scheduled. Future Appointments This section includes appointments that were scheduled to occur 6 months from the date of the Encounter, up to a maximum of 20 appointments. The data comes from all [facility]. Appointment Date/Time Appointment Type Appointme nt Facility Name May 05, 2024 02:00 PM [facility] [place] [facility] Jun 16, 2024 01:15 PM AMBULATORY - MEDICINE [facility] [facility] Jul 20, 2024 08:00 AM AMBULATORY - MEDICINE [place] [facility] [place] [facility] Aug 14, 2024 03:00 PM AMBULATORY - MEDICINE [facility] [facility] Oct 07, 2024 09:00 AM AMBULATORY MEDICINE [facility] Active, Pending, and Scheduled Orders This section includes a listing of several types of active, pending, and scheduled orders, including clinic medications orders, diagnostic test orders, procedure orders and consult orders; where the start date of the order is 45 days before the date of the Encounter or 45 days after the date of theEncounter. The data comes from all [facility]. Test Date/Time Test Type Test Details Facility Name Jun 06, 2024 04:26 PM Consult Order [facility] Cons Courtesy Car Driver's Choice [facility] Lab Results: +/- 30 days of [...] Range Comment Apr 07, 2024 07:31 AM [facility] LIVER FUNCTION Specimen Type: SERUM No comment entered. Ordering Provider: BYRON BARRON Report Released Date/Time: Apr 04, 2024 05:53 PM Reporting Lab: [facility] [address] [facility] [address] Performing Lab: [address] [address] PROTEIN,TOTAL 6.8 g/dL 6.0-8.3 ALBUMIN 4.0 g/dL 3.5-5.0 ALKALINE PHOSPHATASE 118 U/L 40-150 AST 30 U/L 5-34 ALT 23 U/L BILIRUBIN, TOTAL 1.0 mg/dL 0.2-1.2 Apr 07, 2024 07:31 AM [facility] BASIC METABOLIC PANEL (fasting) Specimen Type: SERUM No comment entered. Ordering Provider: BYRON BARRON Report Released Date/Time: Apr 04, 2024 05:53 PM Reporting Lab: [address] [address] Performing Lab: [address] [address] UREA NITROGEN 22 mg/dL 7-25 GLUCOSE 93 mg/dL 65-100 SODIUM 139 mmol/L 135-145 POTASSIUM 3.9 mmol/L 3.5-5.0 CHLORIDE 102 mmol/L 100-110 CO2 26 meq/L 20-30 CREATININE, Serum 0.92 mg/dL 0.50-1.40 eGFR(CKD-EPI 2020) 82 mL/min >60 Apr 07, 2024 07:31 AM [facility] TSH Specimen Type: SERUM No comment entered. Ordering Provider: BYRON BARRON Report Released Date/Time: Apr 04, 2024 05:53 PM Reporting Lab: [facility] [address] [facility] [address] Performing Lab: [address] [address] TSH 2.34 u[IU]/mL 0.35-5.00 Apr 07, 2024 07:31 AM [facility] CBC AND DIFF (AUTO) Specimen Type: BLOOD No comment entered. Ordering Provider: BYRON BARRON Report Released Date/Time: Apr 04, 2024 05:53 PM Reporting Lab: [facility] [address] [facility] [address] Performing Lab: [facility] [address] [facility] [address] WBC 7.77 10*3/uL 4.50-11.00 RBC 4.29 10*6/uL [...] 10*3/uL 0.00-0.00 Apr 07, 2024 07:31 AM [facility] LIPID PANEL FASTING Specimen Type: SERUM No comment entered. Ordering Provider: BYRON BARRON Report Released Date/Time: Apr 04, 2024 05:53 PM Reporting Lab: [address] [address] Performing Lab: [address] [address] CHOLESTEROL 139 mg/dL TRIGLYCERIDE 136 mg/dL 0-150 LDL calculated 72 mg/dL 0-129 CHOL/HDL 3.5 HDL CHOLESTEROL 40 mg/dL 40-60 Apr 07, 2024 07:31 AM [facility] URINALYSIS CLEAN CATCH Specimen Type: URINE Comment: If Glucose = >500 and Ketones are positive, please alert the Physician. Ordering Provider: BYRON BARRON Report Released Date/Time: Apr 04, 2024 05:53 PM Reporting Lab: [address] [address] Performing Lab: [address] [address] UA COLOR Yellow Yellow UA APPEARANCE Clear [...] Facil ity Oct 16, 2023 01:30 PM [place]-TOBACCO QUIT 15 YRS OR MORE [facility] Tobacco Use History This section includes a history of the smoking, or tobacco-related health factors, that were collected on or before the date of the Encounter. The data comes from the [place] facility where the Encounter took place. Date/Time Smoking Status/Tobacco Use Comment F acility Oct 16, 2023 01:30 PM [place]-TOBACCO QUIT 15 YRS OR MORE [facility] [place] [place] [facility] Jul 04, 2022 11:00 AM VA-TOBACCO FORMER USER [place] [facility] Jul 04, 2022 11:00 AM [place]-TOBACCO QUIT 15 YRS OR MORE [place] [facility] Jun 28, 2021 10:30 AM VA-TOBACCO FORMER USER [place] [facility] Jun 28, 2021 10:30 AM [place]-TOBACCO QUIT 15 YRS OR MORE [place] [facility] May 26, 2020 08:00 AM VA-TOBACCO FORMER USER [place] [facility] May 26, 2020 08:00 AM VA-TOBACCO QUIT 15 YRS OR MORE [place] [facility] May 23, 2018 11:21 AM [place]-TOBACCO NEVER USED [facility] Advance Directives: All historical and current [...] Feb 19, 2022 ADVANCE DIRECTIVE JOCE CASTORENA [place] [facility] November 16, 2020 ADVANCE DIRECTIVE [facility] Encounter Notes: All associated encounter notes This section contains the clinical notes associated to the Encounter. Date/Time Encounter Note(s) Provider Source Apr 28, 2024 02:07 PM DERMATOLOGY OUTPATIENT NOTE: LOCAL TITLE: DERMATOLOGY CLINIC NOTE STANDARD TITLE: DERMATOLOGY OUTPATIENT NOTE DATE OF NOTE: APR 28, 2024@14:07 ENTRY DATE: APR 28, 2024@14:07:13 AUTHOR: RANCHO RODRIGUEZ EXP COSIGNER: URGENCY: STATUS: COMPLETED APR 28, 2024 JULEELEBRONALYCIA CHAN Sep 85 PATIENT PHONE - Patient here for ANNUAL FOLLOW UP CHIEF COMPLAINT: h/o NMSC HPI: Reviewed records from last Dermatology visit: 04/30/23 reports an itchy area on back. Has been using TAC 0.1% which is effective but unable to reach area well. [place] denies any other new/changing/bleeding/non-hea ling lesions. REVIEW OF SYSTEMS: Constitutional-neg Skin/Hair/Nails-see HPI DermHx: -BCC, nose s/p Mohs at [facility] ~2013 per (private insurance) Family Hx: Denies [...] lesions or changes #Seborrheic Keratoses, Inflamed -The [place] was educated regarding the benign nature, but [...] applicator mailed per request #Seborrheic Keratoses: -The [place] was educated regarding the benign nature, but [...] liberal emollients RTC 6-12m, sooner PRN * educated to RTC young if any new, changing, symptomatic lesions. * Education on sun protection and avoidance strategies was provided. * Differential diagnosis, prescription options and risks/benefits were discussed with the patient, who consented to treatment plan. * [place] consented to photography for documentation if indicated. [...] (local) and dispensed from another [place] or [facility] facility (remote) as well as [...] JLV. Allergies/ADRs (Tool #5) FACILITY ALLERGY/ADR -------- [facility] PROCAINE [place] [facility] NOVOCAIN Med Recon [facility] (Tool #1) INCLUDED IN THIS LIST: Alphabetical list of active outpatient prescriptions dispensed from this [place] (local) and dispensed from another [place] or [facility] facility (remote) as well as inpatient orders (local pending and active), local clinic medications, locally documented non-VA medications, and local prescriptions that have or been discontinued in the past 90 days. Non-VA Meds Last Documented On: Apr 09, 2022 NOTE The display of VA prescriptions dispensed from another [place] or [facility] facility (remote) is limited to active outpatient prescription entries matched to National Drug File at the originating site and may not include some items such as investigational drugs, compounds, etc. NOT INCLUDED IN THIS LIST: Medications self-entered by the patient into personal health records (i.e. [employer]) are NOT included in this list. Non-VA [...] ONE TABLET BY MOUTH AT BEDTIME Rx# [id number] Last Released: 03/19/24 Qty/Days Supply: Rx Expiration Date: 06/19/24 Refills Remainin OUTPT CEPHALEXIN 500MG CAP (Status = ) TAKE ONE CAPSULE BY MOUTH EVERY 8 HOURS FOR INFECTION Rx# [id number] Last Released: 03/05/24 Qty/Days Supply: 01/02 Rx Expiration Date: 04/04/24 Refills Remainin Indication: FOR INFECTION CAUSED BY BACTERIA OUTPT EZETIMIBE 10MG TAB (Status = Active) TAKE ONE TABLET BY MOUTH ONCE DAILY TO LOWER CHOLESTEROL Rx# [id number] Last Released: 03/19/24 Qty/Days Supply: Rx Expiration Date: 06/19/24 Refills Remainin OUTPT FLUTICAS 250/SALMETEROL 50 INHL DISK 60 (Status = ) INHALE 1 PUFF BY MOUTH TWICE DAILY - RINSE MOUTH AFTER USE Rx# [id number] Last Released: 05/31/23 Qty/Days Supply: Rx Expiration Date: 03/07/24 Refills Remainin Indication: FOR BRONCHOSPASM PREVENTION WITH COPD OUTPT FLUTICASONE PROP 50MCG 120D NASAL INHL (Status = ) INSTILL 1 SPRAY INTO EACH NOSTRIL ONCE DAILY NEEDED FOR NASAL IRRITATION/INFLAMMATION Rx# [id number] Last Released: 05/31/23 Qty/Days Supply: 08/13 Rx Expiration Date: 04/15/24 Refills Remainin Indication: FOR NASAL IRRITATION/INFLAMMATION OUTPT HYDROCHLOROTHIAZIDE 25MG TAB (Status = Active) TAKE ONE TABLET BY MOUTH ONCE DAILY Rx# [id number] Last Released: 03/31/24 Qty/Days Supply: Rx Expiration Date: 06/19/24 Refills Remainin OUTPT METOPROLOL SUCCINATE 50MG SA TAB (Status = Active) TAKE ONE TABLET BY MOUTH ONCE DAILY FOR BLOOD PRESSURE/HEART Rx# [id number] Last Released: 03/19/24 Qty/Days Supply: Rx Expiration Date: 06/19/24 Refills Remainin OUTPT TRIAMCINOLONE ACETONIDE 0.1% CREAM (Status = Active) APPLY A MODERATE AMOUNT TOPICALLY TWICE DAILY NEEDED FOR ITCHING Rx# [id number] Last Released: 10/28/23 Qty/Days Supply: Rx Expiration Date: 10/24/24 Refills Remainin Indication: FOR ITCHING SUPPLIES /es/ RANCHO RODRIGUEZ DNP, BONDING MACHINE TENDER-C NURSE PRACTITIONER Signed: 04/28/2024 14:32 RANCHO RODRIGUEZ CNT[facility]
--- OUTSIDE RECORDS SUMMARY | 2024-07-06 08:04 | XMS_ITS ---
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 Address [address] [place] [id number] Care Team Providers Care Can Reforming Machine Operator Name Role Phone BYRON BARRON Primary [...] Dec 19, 2007 MEDICAR E SUPPLEM E [id number] NYDIA HUERTA UL PATIENT [employer] CAS[employer]TY MEDICARE SUPPLEMEN YORDAN Dec 19, 2007 MEDICAR E SUPPLEM E [id number] NYDIA HUERTA UL PATIENT [employer] CASUALTY [place] MEDICARE SUPPLEMEN YORDAN BANKE RS Dec 19, 2007 NONE [id number] 63 NYDIA HUERTA UL PATIENT MEDICARE (WNR) MEDICARE (M) PART B Oct 13, 2006 PART B [id number] [phone] NYDIA HUERTA UL PATIENT MEDICARE (WNR) MEDICARE (M) PART B Oct 13, 2006 PART B [id number] [place] UL PATIENT MEDICARE (WNR) MEDICARE (M) PART B Oct 13, 2006 PART B [id number] NYDIA HUERTA PATIENT MEDICARE (WNR) MEDICARE (M) PART B Oct 13, 2006 PART B [id number] NYDIA HUERTA PATIENT MEDICARE (WNR) MEDICARE (M) PART A Sep 13, 2003 PART A [id number] [phone] NYDIA HUERTA PATIENT MEDICARE (WNR) MEDICARE (M) PART A Sep 13, 2003 PART A [id number] NYDIA HUERTA PATIENT MEDICARE (WNR) MEDICARE (M) PART A Sep 13, 2003 PART A [id number] [phone] NYDIA HUERTA PATIENT MEDICARE (WNR) MEDICARE (M) PART A Sep 13, 2003 PART A [id number] NYDIA HUERTA PATIENT Selected Encounter This section includes the information on record at [place] for the Encounter. Date/Time Encounter Type Encounter Description Reason Provider Source Feb 03, 2024 10:11 AM Outpatient Encounter PROSTHETICS/ORTHOTI BYRON BHATIA Aranza Encounter Template Text not used by [place] Plan of Treatment: Future Appointments (+ 6 months) and Future Tests (+/- 45 days) The Plan of Treatment section includes future care activities for the patient from all [place] treatmentfacilities. This section includes future appointments and future orders which are active, pending or scheduled. Future Appointments This section includes appointments that were scheduled to occur 6 months from the date of the Encounter, up to a maximum of 20 appointments. The data comes from all [place] treatment facilities. Appointment Date/Time Appointment Type Appointme nt Facility Name Mar 05, 2024 08:00 AM AMBULATORY - MEDICINE [facility] [place] [facility] Mar 05, 2024 09:00 AM AMBULATORY - MEDICINE [facility] [place] [facility] Mar 06, 2024 08:00 AM AMBULATORY - MEDICINE [facility] [place] [facility] Mar 24, 2024 02:00 PM AMBULATORY - MEDICINE [facility] [place] [place] [facility] Mar 31, 2024 09:30 AM AMBULATORY - REHAB MEDICIN E [facility] [place] [facility] Apr 13, 2024 01:30 PM AMBULATORY - MEDICINE [facility] [place] [facility] Apr 28, 2024 02:00 PM AMBULATORY - MEDICINE [facility] [place] [facility] May 05, 2024 02:00 PM AMBULATORY - REHAB MEDICIN E [facility] [facility] Jun 16, 2024 01:15 PM AMBULATORY - MEDICINE [place] [facility] [place] [facility] Jul 20, 2024 08:00 AM AMBULATORY - MEDICINE [place] [facility] [place] [facility] Social History: Smoking Status (Most current) and Tobacco Use (All prior to encounter date) This section includes the most current, and the historical, smoking and tobacco- related health factors from the [place] facility where the Encounter took place. Current Smoking Status This section includes the most current smoking, or tobacco-related health factor, from the [place] facility where the Encounter took place. Date/Time Current Smoking Status Comment Facil ity Oct 16, 2023 01:30 PM [place]-TOBACCO QUIT 15 YRS OR MORE [place] [facility] [place] [facility] Tobacco Use History This section includes a history of the smoking, or tobacco-related health factors, that were collected on or before the date of the Encounter. The data comes from the [place] facility where the Encounter took place. Date/Time Smoking Status/Tobacco Use Comment F ac[place] Oct 16, 2023 01:30 PM VA-TOBACCO QUIT 15 YRS OR MORE [facility] [place] [facility] Jul 04, 2022 11:00 AM VA-TOBACCO FORMER USER [facility] [place] [facility] Jul 04, 2022 11:00 AM VA-TOBACCO QUIT 15 YRS OR MORE [facility] [facility] Jun 28, 2021 10:30 AM VA-TOBACCO FORMER USER [facility] [facility] Jun 28, 2021 10:30 AM VA-TOBACCO QUIT 15 YRS OR MORE [facility] [place] [facility] May 26, 2020 08:00 AM VA-TOBACCO FORMER USER [facility] [facility] May 26, 2020 08:00 AM VA-TOBACCO QUIT 15 YRS OR MORE [facility] [place] [facility] May 23, 2018 11:21 AM VA-TOBACCO NEVER USED [facility] Advance Directives: All historical and current Section Date Range: From patient's date of to the date document was created. This section includes ALL of a patient's completed or amended [place] Advance and Rescinded Directives. The entries below indicate that a directive exists for the patient, but an actual copy is not included with this document. The data comes from all [place] facilities. Date Advance Directives Provider Source Feb 19, 2022 ADVANCE DIRECTIVE JOCE CASTORENA [facility] November 16, 2020 ADVANCE DIRECTIVE BYRON BARRON [facility]
--- OUTSIDE RECORDS SUMMARY | 2024-07-06 08:04 | XMS_ITS | Encounter Summary ---
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 Address [address] [place] [address] Care Team Providers Care Commodity Broker Name Role Phone BYRON BARRON Primary Care [...] Dec 19, 2007 MEDICAR E SUPPLEM E [id number] [phone] NYDIA HUERTA UL PATIENT [employer] MEDICARE SUPPLEMEN YORDAN Dec 19, 2007 MEDICAR E SUPPLEM E [id number] NYDIA HUERTA UL PATIENT [employer] [place] MEDICARE SUPPLEMEN YORDAN BANKE RS Dec 19, 2007 NONE [id number] NYDIA HUERTA UL PATIENT MEDICARE (WNR) MEDICARE (M) PART B Oct 13, 2006 PART B [id number] [facility] [phone] NYDIA HUERTA UL PATIENT MEDICARE (WNR) MEDICARE (M) PART B Oct 13, 2006 PART B [id number] NYDIA HUERTA UL PATIENT MEDICARE (WNR) MEDICARE (M) PART B Oct 13, 2006 PART B [id number] NYDIA HUERTA PATIENT MEDICARE (WNR) MEDICARE (M) PART B Oct 13, 2006 PART B [id number] NYDIA HUERTA PATIENT MEDICARE (WNR) MEDICARE (M) PART A Sep 13, 2003 PART A [id number] [phone] NYDIA HUERTA PATIENT MEDICARE (WNR) MEDICARE (M) PART A Sep 13, 2003 PART A [id number] YNDIA HUERTA PATIENT MEDICARE (WNR) MEDICARE (M) PART A Sep 13, 2003 PART A [id number] [phone] NYDIA HUERTA PATIENT MEDICARE (WNR) MEDICARE (M) PART A Sep 13, 2003 PART A [id number] NYDIA HUERTA PATIENT Selected Encounter This [...] - MEDICINE [place] [facility] [place] [facility] May 05, 2024 02:00 PM AMBULATORY - [place] MEDICIN E [place] [facility] [place] [facility] Jun 16, 2024 01:15 PM AMBULATORY - MEDICINE [place] [facility] [place] [facility] Jul 20, 2024 08:00 AM AMBULATORY - MEDICINE [place] [facility] [place] [facility] Aug 14, 2024 03:00 PM AMBULATORY - MEDICINE [place] [facility] [place] [facility] Oct 07, 2024 09:00 AM AM[facility]ULATORY - MEDICINE [place] [facility] Active, Pending, and Scheduled Orders This section includes a listing of several types of active, pending, and scheduled orders, including clinic medications orders, diagnostic test orders, procedure orders and consult orders; where the start date of the order is 45 days before the date of the Encounter or 45 days after the date of theEncounter. The data comes from all [place] treatment facilities. Test Date/Time Test Type Test Details Facility Name Jun 06, 2024 04:26 PM Consult Order [facility] Cons [facility] Lab Results: +/- 30 days of the encounter This section includes the Chemistry and Hematology Lab Results on record with [place] for the patient. Radiology Reports and Pathology Reports are provided separately, in subsequent sections. Lab Results This section contains the Chemistry/Hematology Results that were resulted 30 days before or 30 daysafter the date of the Encounter. Date/Time Source Result Type Result - Unit Interpretation Reference Range Comment Apr 07, 2024 07:31 AM [facility] LIVER FUNCTION Specimen Type: SERUM No comment entered. Ordering Provider: BYRON BARRON Report Released Date/Time: Apr 04, 2024 05:53 PM Reporting Lab: [address] [address] Performing Lab: [address] [address] PROTEIN,TOTAL 6.8 g/dL 6.0-8.3 ALBUMIN 4.0 g/dL 3.5-5.0 ALKALINE PHOSPHATASE 118 U/L 40-150 AST 30 U/L 5-34 ALT 23 U/L BILIRUBIN, TOTAL 1.0 mg/dL 0.2-1.2 Apr 07, 2024 07:31 AM [facility] BASIC METABOLIC PANEL (fasting) Specimen Type: SERUM No comment entered. Ordering Provider: BYRON BARRON Report Released Date/Time: Apr 04, 2024 05:53 PM Reporting Lab: [address] [address] Performing Lab: [facility] [address] [facility] [address] UREA NITROGEN 22 mg/dL 7-25 GLUCOSE 93 mg/dL 65-100 SODIUM 139 mmol/L 135-145 POTASSIUM 3.9 mmol/L 3.5-5.0 CHLORIDE 102 mmol/L 100-110 CO2 26 meq/L 20-30 CREATININE, Serum 0.92 mg/dL 0.50-1.40 eGFR(CKD-EPI 2020) 82 mL/min >60 Apr 07, 2024 07:31 AM [facility] TSH Specimen Type: SERUM No comment entered. Ordering Provider: BYRON BARRON Report Released Date/Time: Apr 04, 2024 05:53 PM Reporting Lab: [address] [address] Performing Lab: [address] [address] TSH 2.34 u[IU]/mL 0.35-5.00 Apr 07, 2024 07:31 AM [facility] LIPID PANEL FASTING Specimen Type: SERUM No comment entered. Ordering Provider: BYRON BARRON Report Released Date/Time: Apr 04, 2024 05:53 PM Reporting Lab: [address] [address] Performing Lab: [address] [address] CHOLESTEROL 139 mg/dL TRIGLYCERIDE 136 mg/dL 0-150 LDL calculated 72 mg/dL 0-129 CHOL/HDL 3.5 HDL CHOLESTEROL 40 mg/dL 40-60 Apr 07, 2024 07:31 AM [facility] CBC AND DIFF (AUTO) Specimen Type: BLOOD No comment entered. Ordering Provider: BYRON BARRON Report Released Date/Time: Apr 04, 2024 05:53 PM Reporting Lab: [address] [address] Performing Lab: [address] [address] WBC 7.77 10*3/uL 4.50-11.00 RBC 4.29 10*6/uL [...] 10*3/uL 0.00-0.00 Apr 07, 2024 07:31 AM [facility] URINALYSIS CLEAN CATCH Specimen Type: URINE Comment: If Glucose = >500 and Ketones are positive, please alert the Physician. Ordering Provider: BYRON BARRON Report Released Date/Time: Apr 04, 2024 05:53 PM Reporting Lab: [facility] [address] [facility] [address] Performing Lab: [address] [address] UA COLOR Yellow Yellow UA APPEARANCE Clear [...] VA-TOBACCO FORMER USER [place] [facility] [place] [facility] Tobacco Use History This section includes a history of the smoking, or tobacco-related health factors, that were collected on or before the date of the Encounter. The data comes from the [place] facility where the Encounter took place. Date/Time Smoking Status/Tobacco Use Comment F acility Oct 16, 2023 01:30 PM VA-TOBACCO QUIT 15 YRS OR MORE [place] [facility] [place] [facility] Jul 04, 2022 11:00 AM VA-TOBACCO FORMER USER [place] [facility] [place] [facility] Jul 04, 2022 11:00 AM VA-TOBACCO QUIT 15 YRS OR MORE [place] [facility] [place] [facility] Jun 28, 2021 10:30 AM VA-TOBACCO FORMER USER [place] [facility] [place] [facility] Jun 28, 2021 10:30 AM VA-TOBACCO QUIT 15 YRS OR MORE [place] [facility] [place] [facility] May 26, 2020 08:00 AM VA-TOBACCO FORMER USER [place] [facility] [place] [facility] May 26, 2020 08:00 AM VA-TOBACCO QUIT 15 YRS OR MORE [place] [facility] [place] [facility] May 23, 2018 11:21 AM VA-TOBACCO NEVER USED [place] [facility] [place] [facility] Advance Directives: All historical and current [...] Feb 19, 2022 ADVANCE DIRECTIVE JOCE CASTORENA [facility] November 16, 2020 ADVANCE DIRECTIVE BYRON BARRON [facility] Encounter Notes: All associated encounter notes [...] REQUIRED Electronically Filed: 05/28/2024 by: SHANNON GARDUNO [facility]
--- OUTSIDE RECORDS SUMMARY | 2024-07-06 08:04 | XMS_ITS ---
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 Address [address] [place] [address] Care Team Providers Care Automotive Lot Attendant Name Role Phone JOSUE SIMMONS Primary [...] Dec 19, 2007 MEDICAR E SUPPLEM E [id number] [phone] NYDIA HUERTA UL PATIENT [employer] MEDICARE SUPPLEMEN YORDAN Dec 19, 2007 MEDICAR E SUPPLEM E [id number] [phone] NYDIA HUERTA UL PATIENT [employer] CO MEDICARE SUPPLEMEN YORDAN BANKE RS Dec 19, 2007 NONE [id number] NYDIA HUERTA UL PATIENT MEDICARE (WNR) MEDICARE (M) PART B Oct 13, 2006 PART B [id number] [facility] [phone] NYDIA HUERTA UL PATIENT MEDICARE (WNR) MEDICARE (M) PART B Oct 13, 2006 PART B [id number] [facility] [phone] NYDIA HUERTA UL PATIENT MEDICARE (WNR) MEDICARE (M) PART B Oct 13, 2006 PART B [id number] NYDIA HUERTA PATIENT MEDICARE (WNR) MEDICARE (M) PART B Oct 13, 2006 PART B [id number] [phone] NYDIA HUERTA PATIENT MEDICARE (WNR) MEDICARE (M) PART A Sep 13, 2003 PART A [id number] NYDIA HUERTA PATIENT MEDICARE (WNR) MEDICARE (M) PART A Sep 13, 2003 PART A [id number] [phone] NYDIA HUERTA PATIENT MEDICARE (WNR) MEDICARE (M) PART A Sep 13, 2003 PART A [id number] NYDIA HUERTA PATIENT MEDICARE (WNR) MEDICARE (M) PART A Sep 13, 2003 PART A [id number] NYDIA HUERTA PATIENT Selected Encounter This [...] - MEDICINE [place] [facility] [place] [facility] Jul 20, 2024 08:00 AM AMBULATORY - MEDICINE [place] [facility] [place] [facility] Aug 14, 2024 03:00 PM AMBULATORY - MEDICINE [place] [facility] [place] [facility] Oct 07, 2024 09:00 AM AMBULATORY - MEDICINE [place] [facility] [place] [facility] Oct 28, 2024 08:00 AM AMBULATORY - MEDICINE [place] [facility] [place] [facility] Active, Pending, and Scheduled Orders This section includes a listing of several types of active, pending, and scheduled orders, including clinic medications orders, diagnostic test orders, procedure orders and consult orders; where the start date of the order is 45 days before the date of the Encounter or 45 days after the date of theEncounter. The data comes from all [place] treatment facilities. Test Date/Time Test Type Test Details Facility Name Jun 06, 2024 04:26 PM Consult Order [facility] Process [facility] [place] [facility] [place] [facility] Jun 26, 2024 04:42 PM Consult Order [facility] NON-SKILLED HOME HEALTH AIDE Cons Process [facility] [place] [facility] [place] [facility] Social History: Smoking Status (Most current) and Tobacco Use (All prior to encounter date) This section includes the most current, and the historical, smoking and tobacco- related health factors from the [facility] facility where the Encounter took place. Current Smoking Status This section includes the most current smoking, or tobacco-related health factor, from the [facility] facility where the Encounter took place. Date/Time Current Smoking Status Comment Facil ity Oct 16, 2023 01:30 PM [facility] [place] [facility] Tobacco Use History This section includes a history of the smoking, or tobacco-related health factors, that were collected on or before the date of the Encounter. The data comes from the [place] facility where the Encounter took place. Date/Time Smoking Status/Tobacco Use Comment F acility Oct 16, 2023 01:30 PM VA-TOBACCO QUIT 15 YRS OR MORE [place] [facility] [place] [facility] Jul 04, 2022 11:00 AM VA-TOBACCO FORMER USER [place] [facility] [facility] Jul 04, 2022 11:00 AM VA-TOBACCO QUIT 15 YRS OR MORE [place] [facility] [place] [facility] Jun 28, 2021 10:30 AM VA-TOBACCO FORMER USER [place] [facility] [place] [facility] Jun 28, 2021 10:30 AM VA-TOBACCO QUIT 15 YRS OR MORE [place] [facility] [place] [facility] May 26, 2020 08:00 AM VA-TOBACCO FORMER USER [place] [facility] [place] [facility] May 26, 2020 08:00 AM VA-TOBACCO QUIT 15 YRS OR MORE [facility] May 23, 2018 11:21 AM [place]-TOBACCO NEVER USED [facility] Advance Directives: All historical and current Section [...] FOR CHILDREN November 16, 2020 ADVANCE DIRECTIVE JOSUE SIMMONS [facility] Encounter Notes: [...] COMPLETED 05-08-[address] [facility] Left ankle ORIF 01-21-2024 X-ray shows no movement of hardware Follow-up 1 month /eleanor/ Josue Simmons MD Staff Physician Signed: 06/03/2024 18:26 JOSUE SIMMONS [facility]
--- OUTSIDE RECORDS SUMMARY | 2024-07-06 08:04 | XMS_ITS | Encounter Summary ---
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 Address [address] [place] [address] Care Team Providers Care Field Crop Harvest Contractor Name Role Phone BYRON BARRON Primary Care [...] Dec 19, 2007 MEDICAR E SUPPLEM E [id number] NYDIA HUERTA UL PATIENT [employer] MEDICARE SUPPLEMEN YORDAN Dec 19, 2007 MEDICAR E SUPPLEM E [id number] [phone] NYDIA HUERTA UL PATIENT [employer] [place] MEDICARE SUPPLEMEN YORDAN BANKE RS Dec 19, 2007 NONE [id number] [phone] NYDIA HUERTA UL PATIENT MEDICARE (WNR) MEDICARE (M) PART B Oct 13, 2006 PART B [id number] [facility] NYDIA HUERTA UL PATIENT MEDICARE (WNR) MEDICARE (M) PART B Oct 13, 2006 PART B [id number] NYDIA HUERTA UL PATIENT MEDICARE (WNR) MEDICARE (M) PART B Oct 13, 2006 PART B [id number] NYDIA HUERTA PATIENT MEDICARE (WNR) MEDICARE (M) PART B Oct 13, 2006 PART B [id number] NYDIA HUERTA PATIENT MEDICARE (WNR) MEDICARE (M) PART A Sep 13, 2003 PART A [id number] NYDIA HUERTA UL PATIENT MEDICARE (WNR) MEDICARE (M) PART A Sep 13, 2003 PART A [id number] [phone] NYDIA HUERTA PATIENT MEDICARE (WNR) MEDICARE (M) PART A Sep 13, 2003 PART A [id number] NYDIA HUERTA PATIENT MEDICARE (WNR) MEDICARE (M) PART A Sep 13, 2003 PART A [id number] [phone] NYDIA HUERTA PATIENT Selected Encounter This section includes the information on record at [place] for the Encounter. Date/Time Encounter Type Encounter Description Reason Pro vider Source Mar 04, 2024 10:11 AM Outpatient Encounter TELEPHONE TRIAGE IHE Encounter Template Text not used by [place] Plan of Treatment: Future Appointments (+ 6 months) and Future Tests (+/- 45 days) The Plan of Treatment section includes future care activities for the patient from all [place] treatmentfacilities. This section includes future appointments and future orders which are active, pending or scheduled. Future Appointments This section includes appointments that were scheduled to occur 6 months from the date of the Encounter, up to a maximum of 20 appointments. The data comes from all [place] treatment facilities. Appointment Date/Time Appointment Type Appointme nt Facility Name Mar 05, 2024 08:00 AM AMBULATORY - MEDICINE [place] [facility] [place] [facility] Mar 05, 2024 09:00 AM AMBULATORY - MEDICINE [place] [facility] [place] [facility] Mar 06, 2024 08:00 AM AMBULATORY - MEDICINE [place] [facility] [place] [facility] Mar 24, 2024 02:00 PM AMBULATORY - MEDICINE [place] [facility] [place] [facility] Mar 31, 2024 09:30 AM AMBULATORY - REHAB MEDICIN E [place] [facility] [place] [facility] Apr 13, 2024 01:30 PM AMBULATORY - MEDICINE [place] [facility] [place] [facility] Apr 28, 2024 02:00 PM AMBULATORY - MEDICINE [place] [facility] [place] [facility] May 05, 2024 02:00 PM AMBULATORY - REHAB MEDICIN E [place] [facility] [place] [facility] Jun 16, 2024 01:15 PM AMBULATORY - MEDICINE [place] [facility] [place] [facility] Jul 20, 2024 08:00 AM AMBULATORY - MEDICINE [facility] [place] [facility] Aug 14, 2024 03:00 PM AMBULATORY - MEDICINE [place] [facility] [place] [facility] Social History: Smoking Status (Most current) and Tobacco Use (All prior to encounter date) This section includes the most current, and the historical, smoking and tobacco- related health factors from the [place] facility where the Encounter took place. Current Smoking Status This section includes the most current smoking, or tobacco-related health factor, from the [place] facility where the Encounter took place. Date/Time Current Smoking Status Comment Facil ity Oct 16, 2023 01:30 PM VA-TOBACCO FORMER USER [facility] [place] [facility] Tobacco Use History This section includes a history of the smoking, or tobacco-related health factors, that were collected on or before the date of the Encounter. The data comes from the [place] facility where the Encounter took place. Date/Time Smoking Status/Tobacco Use Comment F acility Oct 16, 2023 01:30 PM VA-TOBACCO QUIT 15 YRS OR MORE [facility] [place] [facility] Jul 04, 2022 11:00 AM VA-TOBACCO FORMER USER [facility] [place] [facility] Jul 04, 2022 11:00 AM VA-TOBACCO QUIT 15 YRS OR MORE [facility] [place] [facility] Jun 28, 2021 10:30 AM VA-TOBACCO FORMER USER [facility] [place] [facility] Jun 28, 2021 10:30 AM VA-TOBACCO QUIT 15 YRS OR MORE [facility] [place] [facility] May 26, 2020 08:00 AM VA-TOBACCO FORMER USER [facility] [place] [facility] May 26, 2020 08:00 AM VA-TOBACCO QUIT 15 YRS OR MORE [facility] [place] [facility] May 23, 2018 11:21 AM VA-TOBACCO NEVER [facility]ED [facility] Advance Directives: All historical and current Section Date Range: From patient's date of to the date document was created. This section includes ALL of a patient's completed or amended [place] Advance and Rescinded Directives. The entries below indicate that a directive exists for the patient, but an actual copy is not included with this document. The data comes from all [place] facilities. Date Advance Directives Provider Source Feb 19, 2022 ADVANCE DIRECTIVE JOCE [facility]STORENA [facility] November 16, 2020 ADVANCE DIRECTIVE [facility]RON BARR[facility] Encounter Notes: All associated encounter notes [...] Patient Name: ALYCIA HUERTA Patient Primary Address: [address] [place] [id number] Patient Primary Phone: [phone] Patient : 1940 Patient Age: 83 Caller/Recipient Relation to Patient: Self Emergency Contact: TIMMYCHE HUERTA Triage Summary Conducted triage/discussed symptoms Pain Score: 2 Utilized the Triage Tool: Yes Chief Complaint: Toe Pain System WHEN: Within 24 Hours Nurse's Recommendation / WHEN: Within 8 Hours System WHERE: Clinic Nurse's Recommendation / WHERE: Clinic/[facility] Patient Disposition Patient/Caregiver agrees to plan of [...] worsening symptoms: *Caller/Patient* advised to call facilities [place] Clinical Contact Center or seek immediate medical attention for new or worsening symptoms Alternative course of action Alternative courses of action: UCC/ER Nurse Summary Nurse Summary: Received call from . explains he fractured his left ankle approx. 8 weeks ago. and had surgical repair for it approx. 7 weeks ago through [facility]. now wearing a walking a boot. Calling [...] PCP and have it taken care of. [place] did contact a civilian software design engineer but they cannot see him until April. See [facility] for additional +/- signs & symptoms. Up triaged to seek care within 8 hours. requesting a f2f appt. with PCP. Declining option of [facility] appt. with [facility] PEDIATRIC SOCIAL WORKER. States if he cannot get an appt. with PCP then he plans on going [facility]. Warm transferred to [facility] priority scheduling for assistance with scheduling. Information forwarded to PACT. Provided with the following [place] [facility] as backup and advised to call facility of choice to confirm services and hours: [facility] [address] [place] [address] Main number: [phone] [facility] [address] [place] [address] Main number: [phone] ER precautions provided. Clinical Contact Center Codes Clinic/Location: V1 CWM PHONE [facility] RN Decision Support System Output: Triage Complete Triage Date: 03/04/2024, 09:37 AM Triage Note: Decision Support Tool Used: [facility] Phone Triage 04 Mar 2024 13:34:35 +0000 [facility] Demographics 83 y/o Male Results CC: Toe Pain Software suggested: Within 24 Hours Software suggested follow-up location: Clinic, consider [facility] care Values and Measures Duration of [...] transplant IMPORTANT: This note was created by [facility] Clinical Contact Center staff. Please do not alert the staff member by adding them as a signer for future communications. Alerts are not monitored by this user. /es/ MAT GODWIN RN Signed: 03/04/2024 10:11 Receipt [...] Care RN Signed: 03/04/2024 12:48 MAT GODWIN [facility]
--- OUTSIDE RECORDS SUMMARY | 2024-07-06 08:04 | XMS_ITS ---
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 Organization [place] Address [address] [place] [address] Care Team Providers Care Insurance Business Analyst Name Role Phone BYRON BARRON Primary [...] Dec 19, 2007 MEDICAR E SUPPLEM E [id number] [phone] NYDIA HUERTA UL PATIENT [employer] MEDICARE SUPPLEMEN YORDAN Dec 19, 2007 MEDICAR E SUPPLEM E [id number] [phone] NYDIA HUERTA UL PATIENT [employer] [place] MEDICARE SUPPLEMEN YORDAN BANKE RS Dec 19, 2007 NONE [id number] [phone] NYDIA HUERTA UL PATIENT MEDICARE (WNR) MEDICARE (M) PART B Oct 13, 2006 PART B [id number] NYDIA HUERTA UL PATIENT MEDICARE (WNR) MEDICARE (M) PART B Oct 13, 2006 PART B [id number] NYDIA HUERTA UL PATIENT MEDICARE (WNR) MEDICARE (M) PART B Oct 13, 2006 PART B [id number] NYDIA HUERTA PATIENT MEDICARE (WNR) MEDICARE (M) PART B Oct 13, 2006 PART B [id number] [phone] NYDIA HUERTA PATIENT MEDICARE (WNR) MEDICARE (M) PART A Sep 13, 2003 PART A [id number] NYDIA HUERTA PATIENT MEDICARE (WNR) MEDICARE (M) PART A Sep 13, 2003 PART A [id number] [phone] NYDIA HUERTA PATIENT MEDICARE (WNR) MEDICARE (M) PART A Sep 13, 2003 PART A [id number] [phone] NYDIA HUERTA PATIENT MEDICARE (WNR) MEDICARE (M) PART A Sep 13, 2003 PART A [id number] NYDIA HUERTA PATIENT Selected Encounter This section includes the information on record at [place] for the Encounter. Date/Time Encounter Type Encounter Description Reason Provider Source Mar 31, 2024 09:30 AM HEARING AID EXAM BOTH EARS AUDIOLOGY ICD-10-CM H90.6 Mixed conductive and sensorineural hearing loss, bilateral SAAD HARRINGTON IHE Encounter Template Text not used by [place] Assessments - Encounter Diagnoses This section includes the primary and secondary diagnoses documented for the Encounter. Date/Time Primary/Secondary Diagnosis Diagnosis Name Provider Source Mar 31, 2024 09:43 AM PRIMARY Mixed conductive and sensorineural hearing loss, bilateral SAAD HARRINGTON [facility] Plan of Treatment: Future Appointments (+ 6 months) and Future Tests (+/- 45 days) The Plan of Treatment section includes future care activities for the patient from all [place] treatmentfacilities. This section includes future appointments and future orders which are active, pending or scheduled. Future Appointments This section includes appointments that were scheduled to occur 6 months from the date of the Encounter, up to a maximum of 20 appointments. The data comes from all [place] treatment facilities. Appointment Date/Time Appointment Type Appointme nt Facility Name Apr 13, 2024 01:30 PM AMBULATORY - MEDICINE [facility] [place] [facility] Apr 28, 2024 02:00 PM AMBULATORY - MEDICINE [place] [facility] [place] [facility] May 05, 2024 02:00 PM AMBULATORY - [facility]ICIN E [facility] [place] [facility] Jun 16, 2024 01:15 PM AMBULATORY - MEDICINE [place] [facility] [place] [facility] Jul 20, 2024 08:00 AM [facility] Aug 14, 2024 03:00 PM [facility]UL[facility] - [facility]IC[facility] Lab Results: +/- 30 days of the encounter This section includes the Chemistry and Hematology Lab Results on record with [place] for the patient. Radiology Reports and Pathology Reports are provided separately, in subsequent sections. Lab Results This section contains the Chemistry/Hematology Results that were resulted 30 days before or 30 daysafter the date of the Encounter. Date/Time Source Result Type Result - Unit Interpretation Reference Range Comment Apr 07, 2024 07:31 AM [facility] LIVER FUNCTION Specimen Type: SERUM No comment entered. Ordering Provider: BYRON BARRON Report Released Date/Time: Apr 04, 2024 05:53 PM Reporting Lab: [facility] [address] [address] Performing Lab: [address] [address] PROTEIN,TOTAL 6.8 g/dL 6.0-8.3 ALBUMIN 4.0 g/dL 3.5-5.0 ALKALINE PHOSPHATASE 118 U/L 40-150 AST 30 U/L 5-34 ALT 23 U/L BILIRUBIN, TOTAL 1.0 mg/dL 0.2-1.2 Apr 07, 2024 07:31 AM [facility] BASIC METABOLIC PANEL (fasting) Specimen Type: SERUM No comment entered. Ordering Provider: BYRON BARRON Report Released Date/Time: Apr 04, 2024 05:53 PM Reporting Lab: [facility] [address] [facility] [address] Performing Lab: [address] [address] UREA NITROGEN 22 mg/dL 7-25 GLUCOSE 93 mg/dL 65-100 SODIUM 139 mmol/L 135-145 POTASSIUM 3.9 mmol/L 3.5-5.0 CHLORIDE 102 mmol/L 100-110 CO2 26 meq/L 20-30 CREATININE, Serum 0.92 mg/dL 0.50-1.40 eGFR(CKD-EPI 2020) 82 mL/min >60 Apr 07, 2024 07:31 AM [facility] TSH Specimen Type: SERUM No comment entered. Ordering Provider: BYRON BARRON Report Released Date/Time: Apr 04, 2024 05:53 PM Reporting Lab: [address] [address] Performing Lab: [address] [address] TSH 2.34 u[IU]/mL 0.35-5.00 Apr 07, 2024 07:31 AM [facility] LIPID PANEL FASTING Specimen Type: SERUM No comment entered. Ordering Provider: BYRON BARORN Report Released Date/Time: Apr 04, 2024 05:53 PM Reporting Lab: [address] [address] Performing Lab: [address] [address] CHOLESTEROL 139 mg/dL TRIGLYCERIDE 136 mg/dL 0-150 LDL calculated 72 mg/dL 0-129 CHOL/HDL 3.5 HDL CHOLESTEROL 40 mg/dL 40-60 Apr 07, 2024 07:31 AM [facility] CBC AND DIFF (AUTO) Specimen Type: BLOOD No comment entered. Ordering Provider: BYRON BARRON Report Released Date/Time: Apr 04, 2024 05:53 PM Reporting Lab: [address] [address] Performing Lab: [address] [address] WBC 7.77 10*3/uL 4.50-11.00 RBC 4.29 10*6/uL [...] 10*3/uL 0.00-0.00 Apr 07, 2024 07:31 AM [facility] URINALYSIS CLEAN CATCH Specimen Type: URINE Comment: If Glucose = >500 and Ketones are positive, please alert the Physician. Ordering Provider: BYRON BARRON Report Released Date/Time: Apr 04, 2024 05:53 PM Reporting Lab: [address] [address] Performing Lab: [address] [address] UA COLOR Yellow Yellow UA APPEARANCE Clear [...] and tobacco- related health factors from the [place] facility where the Encounter took place. Current Smoking Status This section includes the most current smoking, or tobacco-related health factor, from the [place] facility where the Encounter took place. Date/Time Current Smoking Status Comment Facil ity Oct 16, 2023 01:30 PM VA-TOBACCO FORMER USER [place] [facility] [place] [facility] Tobacco Use History This section includes a history of the smoking, or tobacco-related health factors, that were collected on or before the date of the Encounter. The data comes from the [place] facility where the Encounter took place. Date/Time Smoking Status/Tobacco Use Comment F acility Oct 16, 2023 01:30 PM VA-TOBACCO QUIT 15 YRS OR MORE DE [facility] [facility] Jul 04, 2022 11:00 AM VA-TOBACCO FORMER USER [place] [facility] [place] [facility] Jul 04, 2022 11:00 AM VA-TOBACCO QUIT 15 YRS OR MORE [place] [facility] [facility] Jun 28, 2021 10:30 AM VA-TOBACCO FORMER USER [place] [facility] [place] [facility] Jun 28, 2021 10:30 AM VA-TOBACCO QUIT 15 YRS OR MORE [place] [facility] [place] [facility] May 26, 2020 08:00 AM VA-TOBACCO FORMER USER [place] [facility] [facility] May 26, 2020 08:00 AM VA-TOBACCO QUIT 15 YRS OR MORE DE [facility] [facility] May 23, 2018 11:21 AM VA-TOBACCO NEVER USED DE [facility] [place] [facility] Advance Directives: All historical and current Section Date Range: From patient's date of to the date document was created. This section includes ALL of a patient's completed or amended [place] Advance and Rescinded Directives. The entries below indicate that a directive exists for the patient, but an actual copy is not included with this document. The data comes from all [place] facilities. Date Advance Directives Provider Source Feb 19, 2022 ADVANCE DIRECTIVE JOCE CASTORENA [place] [facility] [place] [facility] November 16, 2020 ADVANCE DIRECTIVE BYRON BARRON [facility] Encounter Notes: All associated encounter notes This section contains the clinical notes associated to the Encounter. Date/Time Encounter Note(s) Provider Source Mar 31, 2024 07:52 AM AUDIOLOGY E & M NO TE: [facility] TITLE: AUDIOLOGY CLINIC STANDARD TITLE: AUDIOLOGY E & M NOTE DATE OF NOTE: MAR 31, 2024@07:52 ENTRY DATE: MAR 31, 2024@07:52:56 AUTHOR: SAAD HARRINGTON EXP COSIGNER: URGENCY: STATUS: COMPLETED AUDIOLOGY CLINIC Has ADDENDA was seen on 03-31-24 for a hearing aid evaluation. He received medical clearance for amplification from ENT in [facility] on 03-24-24. 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 Binaural rechargeable BTEs are recommended and agrees. He states he does not have a pacemaker. He chose beige for the color. Otoscopy was WNLs. Ear impressions were taken without incident. RTC order placed for the fitting 05-05-24 2pm. /eleanor/ Alcon GERONIMO, CCC-A STAFF PASTE MIXING SUPERVISOR Signed: 03/31/2024 09:55 Receipt Acknowledged By: 03/31/2024 10:12 /eleanor/ SUHAS SINHA LEAD TRADE ANALYST 04/09/2024 ADDENDUM STATUS: COMPLETED Hearing aids received and certified, upcoming appointment scheduled on 05/05/2024. /eleanor/ ELIGIO CHAND [facility]iology Health Yarn Cleaner Signed: 04/09/2024 08:42 SAAD HARRINGTON [facility]
--- OUTSIDE RECORDS SUMMARY | 2024-07-06 08:05 | XMS_ITS | Encounter Summary ---
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 Organization [place] Address [address] [place] [address] Care Team Providers Care Picker Tender Name Role Phone BYRON BARRON Primary [...] Dec 19, 2007 MEDICAR E SUPPLEM E [id number] [phone] NYDIA HUERTA UL PATIENT [employer] MEDICARE SUPPLEMEN YORDAN Dec 19, 2007 MEDICAR E SUPPLEM E [id number] [phone] NYDIA HUERTA UL PATIENT [employer] [place] MEDICARE SUPPLEMEN YORDAN BANKE RS Dec 19, 2007 NONE [id number] [phone] NYDIA HUERTA UL PATIENT MEDICARE (WNR) MEDICARE (M) PART B Oct 13, 2006 PART B [id number] NYDIA HUERTA UL PATIENT MEDICARE (WNR) MEDICARE (M) PART B Oct 13, 2006 PART B [id number] [phone] NYDIA HUERTA UL PATIENT MEDICARE (WNR) MEDICARE (M) PART B Oct 13, 2006 PART B [id number] [phone] NYDIA HUERTA PATIENT MEDICARE (WNR) MEDICARE (M) PART B Oct 13, 2006 PART B [id number] NYDIA HUERTA PATIENT MEDICARE (WNR) MEDICARE (M) PART A Sep 13, 2003 PART A [id number] NYDIA HUERTA PATIENT MEDICARE (WNR) MEDICARE (M) PART A Sep 13, 2003 PART A [id number] NYDIA HUERTA PATIENT MEDICARE (WNR) MEDICARE (M) PART A Sep 13, 2003 PART A [id number] NYDIA HUERTA PATIENT MEDICARE (WNR) MEDICARE (M) PART A Sep 13, 2003 PART A [id number] NYDIA HUERTA PATIENT Selected Encounter This section includes the information on record at [place] for the Encounter. Date/Time Encounter Type Encounter Description Reason Provider Source December 05, 2023 03:05 PM Outpatient Encounter DERMATOLOGY ICD-10-CM D48.5 Neoplasm of uncertain behavior of skin IRENA BRADFORD [facility] Encounter Template Text not used by [place] Assessments - Encounter Diagnoses This section includes the primary and secondary diagnoses documented for the Encounter. Date/Time Primary/Secondary Diagnosis Diagnosis Name Provider Source December 12, 2023 12:36 PM PRIMARY Neoplasm of uncertain behavior of skin IRENA BRADFORD [facility] Plan of Treatment: Future Appointments (+ [...] 11:00 AM AMBULATORY - [facility] [place] [facility] Jan 13, 2024 01:20 PM AM[facility]ULATORY - MEDICINE [place] [facility] Jan 21, 2024 08:00 AM AMBULATORY - MEDICINE [place] [facility] Feb 03, 2024 01:30 PM AMBULATORY - REHAB MEDICIN E [place] [facility] [place] [facility] Mar 05, 2024 08:00 AM AMBULATORY - MEDICINE [place] [facility] [place] [place] [facility] Mar 05, 2024 09:00 AM AMBULATORY - MEDICINE [place] [facility] [place] [place] [facility] Mar 06, 2024 08:00 AM AMBULATORY - MEDICINE [place] [facility] [place] [place] [facility] Mar 24, 2024 02:00 PM AMBULATORY - MEDICINE [place] [facility] [place] [place] [facility] Mar 31, 2024 09:30 AM AMBULATORY - REHAB MEDICIN E [place] [facility] [place] [facility] Apr 13, 2024 01:30 PM AMBULATORY - MEDICINE [place] [facility] [place] [place] [facility] Apr 28, 2024 02:00 PM AMBULATORY - MEDICINE [place] [facility] May 05, 2024 02:00 PM AMBULATORY - REHAB MEDICIN E [place] [facility] [place] [facility] Advance Directives: All historical and [...] Feb 19, 2022 ADVANCE DIRECTIVE [facility]ORENA [facility] November 16, 2020 ADVANCE DIRECTIVE BYRON BARRON [place] [facility] Encounter Notes: All associated encounter [...] satisfactory EXAM: 8 mm brown macule with printing plate maker medial pole. IMPRESSION BASED ON IMAGES AND [...] DERMATOLOGY CLINIC Signed: 12/05/2023 15:06 IRENA BRADFORD [facility]
--- OUTSIDE RECORDS SUMMARY | 2024-07-06 08:05 | XMS_ITS ---
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 Organization [place] Address [address] [place] [address] Care Team Providers Care Finisher Brush Name Role Phone JOSUE BARRON Primary Care [...] Dec 19, 2007 MEDICAR E SUPPLEM E [id number] NYDIA HUERTA PATIENT [employer] MEDICARE SUPPLEMEN YORDAN Dec 19, 2007 MEDICAR E SUPPLEM E [id number] NYDIA HUERTA UL PATIENT [employer] [place] MEDICARE SUPPLEMEN YORDAN BANKE RS Dec 19, 2007 NONE [id number] [phone] NYDIA HUERTA PATIENT MEDICARE (WNR) MEDICARE (M) PART B Oct 13, 2006 PART B [id number] NYDIA HUERTA UL PATIENT MEDICARE (WNR) MEDICARE (M) PART B Oct 13, 2006 PART B [id number] [phone] NYDIA HUERTA PATIENT MEDICARE (WNR) MEDICARE (M) PART B Oct 13, 2006 PART B [id number] [phone] NYDIA HUERTA PATIENT MEDICARE (WNR) MEDICARE (M) PART B Oct 13, 2006 PART B [id number] NYDIA HUERTA PATIENT MEDICARE (WNR) MEDICARE (M) PART A Sep 13, 2003 PART A [id number] [phone] NYDIA HUERTA PATIENT MEDICARE (WNR) MEDICARE (M) PART A Sep 13, 2003 PART A [id number] NYDIA HUERTA PATIENT MEDICARE (WNR) MEDICARE (M) PART A Sep 13, 2003 PART A [id number] [phone] NYDIA HUERTA PATIENT MEDICARE (WNR) MEDICARE (M) PART A Sep 13, 2003 PART A [id number] [phone] NYDIA HUERTA PATIENT Selected Encounter This section includes the information on record at [place] for the Encounter. Date/Time Encounter Type Encounter Description Reason Provider Source Oct 16, 2023 01:30 PM OFFICE O/P EST LOW 20 MIN PRIMARY CARE/MEDICINE ICD-10-CM H67.3 Otitis media in diseases classified elsewhere, bilateral JOSUE BARRON [facility] Encounter Template Text not used by [place] Assessments - Encounter Diagnoses This section includes the primary and secondary diagnoses documented for the Encounter. Date/Time Primary/Secondary Diagnosis Diagnosis Name Provider Source Nov 08, 2023 08:48 AM PRIMARY Otitis media in diseases classified elsewhere, bilateral [facility] Nov 08, 2023 08:48 AM SECONDARY Dermatitis, unspecified [facility]ARR[facility] [place] [facility] Nov 08, 2023 08:48 AM SECONDARY Encounter for immunization JOSUE BARRON [facility] Plan of Treatment: Future Appointments (+ [...] AMBULATORY - NONE [place] [facility] [place] [facility] December 05, 2023 10:00 AM AMBULATORY - NONE [place] [facility] [place] [facility] Dec 30, 2023 11:00 [...] - MEDICINE [place] C [place] [facility] Lab Results: +/- 30 days of the encounter This section includes the Chemistry and Hematology Lab Results on record with [place] for the patient. Radiology Reports and Pathology Reports are provided separately, in subsequent sections. Lab Results This section contains the Chemistry/Hematology Results that were resulted 30 days before or 30 daysafter the date of the Encounter. Date/Time Source Result Type Result - Unit Interpretation Reference Range Comment Oct 08, 2023 07:41 AM [place] [facility] BASIC METABOLIC PANEL (fasting) Specimen Type: SERUM No comment entered. Ordering Provider: JOSUE BARRON Report Released Date/Time: Oct 05, 2023 11:58 PM Reporting Lab: [facility] [place] [address] [address] Performing Lab: [facility] [address] [facility] [address] UREA NITROGEN 16 mg/dL 7-25 GLUCOSE 102 mg/dL H 65-100 SODIUM 143 mmol/L 135-145 POTASSIUM 4.4 mmol/L 3.5-5.0 CHLORIDE 106 mmol/L 100-110 CO2 26 meq/L 20-30 CREATININE, Serum 1.01 mg/dL 0.50-1.40 eGFR(CKD-EPI 2020) 73 mL/min >60 Oct 08, 2023 07:41 AM [facility] CBC AND DIFF (AUTO) Specimen Type: BLOOD No comment entered. Ordering Provider: JOSUE BARRON Report Released Date/Time: Oct 05, 2023 11:58 PM Reporting Lab: [facility] [address] [facility] [address] Performing Lab: [facility] [address] [facility] [address] WBC 7.99 10*3/uL 4.50-11.00 RBC 4.47 10*6/uL 4.23-5.66 HGB 14.6 g/dL 12.8-17 HCT 42.7 39.2-50.4 MCV 95.5 fL 82-99 MCHC 34.2 g/dL 30.8-35.1 PLT 126 10*3/uL L 140-360 RDW-CV 12.9 12.0-16.0 [place], Abs 0.79 10*3/uL 0.30-1.10 MCH 32.7 pg H 26.2-32.6 Neut % 54.5 43.7-75.8 Lymph % 33.3 14.0-42.3 [place] % 9.9 5.1-13.7 Eos % 1.4 0.4-6.8 Baso % 0.6 0.1-2.0 Neut, Abs 4.36 10*3/uL 2.20-7.60 Lymph, Abs 2.66 10*3/uL 1.00-3.20 Eos, Abs 0.11 10*3/uL 0.03-0.44 Baso, Abs 0.05 10*3/uL 0.01-0.13 Immature Gran % 0.3 0.0-0.7 Immature Gran, Abs 0.02 10*3/uL 0.00-0.06 Oct 08, 2023 07:41 AM [facility] LIPID PANEL FASTING Specimen Type: SERUM No comment entered. Ordering Provider: JOSUE BARRON Report Released Date/Time: Oct 05, 2023 11:58 PM Reporting Lab: [address] [address] Performing Lab: [address] [address] CHOLESTEROL 133 mg/dL TRIGLYCERIDE 98 mg/dL 0-150 LDL calculated 70 mg/dL 0-129 CHOL/HDL 3.1 HDL CHOLESTEROL 43 mg/dL 40-60 Oct 08, 2023 07:41 AM [facility] LIVER FUNCTION Specimen Type: SERUM No comment entered. Ordering Provider: JOSUE BARRON Report Released Date/Time: Oct 05, 2023 11:58 PM Reporting Lab: [address] [address] Performing Lab: [address] [address] PROTEIN,TOTAL 6.6 g/dL 6.0-8.3 ALBUMIN 3.8 g/dL 3.5-5.0 ALKALINE PHOSPHATASE 103 U/L 40-150 AST 33 U/L 5-34 ALT 29 U/L BILIRUBIN, TOTAL 0.7 mg/dL 0.2-1.2 Oct 08, 2023 07:41 AM [facility] TSH Specimen Type: SERUM No comment entered. Ordering Provider: JOSUE BARRON Report Released Date/Time: Oct 05, 2023 11:58 PM Reporting Lab: [address] [address] Performing Lab: [address] [address] TSH 2.46 u[IU]/mL 0.35-5.00 Oct 08, 2023 07:41 AM [facility] URINALYSIS CLEAN CATCH Specimen Type: URINE Comment: If Glucose = >500 and Ketones are positive, please alert the Physician. Ordering Provider: JOSUE BARRON Report Released Date/Time: Oct 05, 2023 11:58 PM Reporting Lab: [facility] [address] [facility] [address] Performing Lab: [facility] [address] [facility] [address] UA COLOR Light-Yellow Yellow UA APPEARANCE Clear [...] Source Oct 16, 2023 01:44 PM 128/76 [facility] Oct 16, 2023 01:15 PM 98.2 86 140/72 16 98 0 211 35 [facility] Immunizations: All administered on the encounter [...] PM VA-TOBACCO QUIT 15 YRS OR MORE [facility] Tobacco Use History This section includes a history of the smoking, or tobacco-related health factors, that were collected on or before the date of the Encounter. The data comes from the [place] facility where the Encounter took place. Date/Time Smoking Status/Tobacco Use Comment F acility Oct 16, 2023 01:30 PM VA-TOBACCO QUIT 15 YRS OR MORE [place] [facility] Jul 04, 2022 11:00 AM VA-TOBACCO FORMER USER [place] [facility] Jul 04, 2022 11:00 AM VA-TOBACCO QUIT 15 YRS OR MORE [place] [facility] Jun 28, 2021 10:30 AM VA-TOBACCO FORMER USER [place] [facility] Jun 28, 2021 10:30 AM VA-TOBACCO QUIT 15 YRS OR MORE [place] [facility] May 26, 2020 08:00 AM VA-TOBACCO FORMER USER [place] [facility] May 26, 2020 08:00 AM VA-TOBACCO QUIT 15 YRS OR MORE [place] [facility] May 23, 2018 11:21 AM VA-TOBACCO NEVER [facility]ED [facility] Advance Directives: All historical and [...] 2022 ADVANCE DIRECTIVE JOCE CASTORENA [facility] WSN [facility] November 16, 2020 ADVANCE DIRECTIVE JOSUE BARRON [facility]SN [facility] Encounter Notes: All associated encounter [...] Oct 16, 2023 13:30 Series: 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 Lot: [id number] Exp Date: Nov 06, 2023 [facility]: [id number] Admin Route/Site: INTRAMUSCULAR/LEFT DELTOID Dosage: 0.3mL Vaccine Information Statement(s): COVID-19 MRNA VACCINE (12+ YRS) VACCINE VIS May 02, 2023 (MAURITANIAN) Order By: Policy Administered By: Earle Andrade Vaccine administered without complications. The patient was advised to remain in the facility for 15 minutes post vaccination. 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 History of [...] NEGATIVE Bilirubin, Urine (AX 4280): NEGATIVE Specific Sarver, (AX 4280): 1.018 pH, Urine (KU2676): 7.0 Urobilinogen, Urine (AX 4280): <2.0 Leukocyte [...] H Neut %: 54.5 Lymph %: 33.3 [place] %: 9.9 Eos %: 1.4 Baso %: 0.6 Neut, Abs: 4.36 Lymph, Abs: 2.66 [place], Abs: 0.79 Eos, Abs: 0.11 Baso, Abs: [...] of active outpatient prescriptions dispensed from this [place] (local) and dispensed from another [facility] or [...] Staff Physician Signed: 10/16/2023 13:57 JOSUE BARRON [place] [facility] Oct 16, 2023 01:18 PM [...] [facility]
--- OUTSIDE RECORDS SUMMARY | 2024-07-06 08:05 | XMS_ITS ---
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 Address [address] [place] [address] Care Team Providers Care Agriscience Teacher Name Role Phone JOSUE SIMMONS Primary Care [...] Dec 19, 2007 MEDICAR E SUPPLEM E [id number] NYDIA HUERTA UL PATIENT [employer] MEDICARE SUPPLEMEN YORDAN Dec 19, 2007 MEDICAR E SUPPLEM E [id number] NYDIA HUERTA UL PATIENT [employer] [place] MEDICARE SUPPLEMEN YORDAN BANKE RS Dec 19, 2007 NONE [id number] [phone] NYDIA HUERTA UL PATIENT MEDICARE (WNR) MEDICARE (M) PART B Oct 13, 2006 PART B [id number] [phone] NYDIA HUERTA UL PATIENT MEDICARE (WNR) MEDICARE (M) PART B Oct 13, 2006 PART B [id number] NYDIA HUERTA UL PATIENT MEDICARE (WNR) MEDICARE (M) PART B Oct 13, 2006 PART B [id number] NYDIA HUERTA PATIENT MEDICARE (WNR) MEDICARE (M) PART B Oct 13, 2006 PART B [id number] NYDIA HUERTA PATIENT MEDICARE (WNR) MEDICARE (M) PART A Sep 13, 2003 PART A [id number] NYDAI HUERTA PATIENT MEDICARE (WNR) MEDICARE (M) PART A Sep 13, 2003 PART A [id number] NYDIA HUERTA PATIENT MEDICARE (WNR) MEDICARE (M) PART A Sep 13, 2003 PART A [id number] [phone] NYDIA HUERTA PATIENT MEDICARE (WNR) MEDICARE (M) PART A Sep 13, 2003 PART A [id number] NYDIA HUERTA PATIENT Selected Encounter This section includes the information on record at [place] for the Encounter. Date/Time Encounter Type Encounter Description Reason Pro vider Source Oct 24, 2023 01:01 PM Outpatient Encounter PRIMARY CARE/MEDICINE IHE Encounter Template Text not used by [place] Plan of Treatment: Future Appointments (+ 6 months) and Future Tests (+/- 45 days) The Plan of Treatment section includes future care activities for the patient from all [place] treatmentfacilities. This section includes future appointments and future orders which are active, pending or scheduled. Future Appointments This section includes appointments that were scheduled to occur 6 months from the date of the Encounter, up to a maximum of 20 appointments. The data comes from all [place] treatment facilities. Appointment Date/Time Appointment Type Appointme nt Facility Name December 05, 2023 10:00 AM AMBULATORY - NONE [place] [facility] [place] [facility] Dec 30, 2023 11:00 AM AMBULATORY - REHAB MEDICIN E [facility] [place] [facility] Jan 13, 2024 01:20 PM AMBULATORY - MEDICINE [place] [facility] [place] [facility] Jan 21, 2024 08:00 AM AMBULATORY [place] MEDICINE [place] [facility] [place] [facility] Feb 03, 2024 01:30 PM AMBULATORY - REHAB MEDICIN E [facility] [place] [facility] Mar 05, 2024 08:00 AM AMBULATORY - MEDICINE [place] [facility] [place] [facility] Mar 05, 2024 09:00 AM AMBULATORY - MEDICINE [place] [facility] [place] [facility] Mar 06, 2024 08:00 AM AMBULATORY - MEDICINE [place] [facility] [place] [facility] Mar 24, 2024 02:00 PM AMBULATORY - MEDICINE [place] [facility] [place] [facility] Mar 31, 2024 09:30 AM AMBULATORY - REHAB MEDICIN E [place] [facility] [place] [facility] Apr 13, 2024 01:30 PM [facility]UL[facility]ORY - [facility]INE [facility] Lab Results: +/- 30 days of the encounter This section includes the Chemistry and Hematology Lab Results on record with [place] for the patient. Radiology Reports and Pathology Reports are provided separately, in subsequent sections. Lab Results This section contains the Chemistry/Hematology Results that were resulted 30 days before or 30 daysafter the date of the Encounter. Date/Time Source Result Type Result - Unit Interpretation Reference Range Comment Oct 08, 2023 07:41 AM [facility] BASIC METABOLIC PANEL (fasting) Specimen Type: SERUM No comment entered. Ordering Provider: JOSUE SIMMONS Report Released Date/Time: Oct 05, 2023 11:58 PM Reporting Lab: [facility] [address] [address] Performing Lab: [address] [address] UREA NITROGEN 16 mg/dL 7-25 GLUCOSE 102 mg/dL H 65-100 SODIUM 143 mmol/L 135-145 POTASSIUM 4.4 mmol/L 3.5-5.0 CHLORIDE 106 mmol/L 100-110 CO2 26 meq/L 20-30 CREATININE, Serum 1.01 mg/dL 0.50-1.40 eGFR(CKD-EPI 2020) 73 mL/min >60 Oct 08, 2023 07:41 AM [facility] CBC AND DIFF (AUTO) Specimen Type: BLOOD No comment entered. Ordering Provider: JOSUE SIMMONS Report Released Date/Time: Oct 05, 2023 11:58 PM Reporting Lab: [facility] [address] [facility] [address] Performing Lab: [facility] [address] [facility] [address] WBC 7.99 10*3/uL 4.50-11.00 RBC 4.47 10*6/uL 4.23-5.66 HGB 14.6 g/dL 12.8-17 HCT 42.7 39.2-50.4 MCV 95.5 fL 82-99 MCHC 34.2 g/dL 30.8-35.1 PLT 126 10*3/uL L 140-360 RDW-CV 12.9 12.0-16.0 [place], Abs 0.79 10*3/uL 0.30-1.10 MCH 32.7 pg H 26.2-32.6 Neut % 54.5 43.7-75.8 Lymph % 33.3 14.0-42.3 [place] % 9.9 5.1-13.7 Eos % 1.4 0.4-6.8 Baso % 0.6 0.1-2.0 Neut, Abs 4.36 10*3/uL 2.20-7.60 Lymph, Abs 2.66 10*3/uL 1.00-3.20 Eos, Abs 0.11 10*3/uL 0.03-0.44 Baso, Abs 0.05 10*3/uL 0.01-0.13 Immature Gran % 0.3 0.0-0.7 Immature Gran, Abs 0.02 10*3/uL 0.00-0.06 Oct 08, 2023 07:41 AM [facility] LIVER FUNCTION Specimen Type: SERUM No comment entered. Ordering Provider: JOSUE SIMMONS Report Released Date/Time: Oct 05, 2023 11:58 PM Reporting Lab: [facility] [address] [address] Performing Lab: [address] [address] PROTEIN,TOTAL 6.6 g/dL 6.0-8.3 ALBUMIN 3.8 g/dL 3.5-5.0 ALKALINE PHOSPHATASE 103 U/L 40-150 AST 33 U/L 5-34 ALT 29 U/L BILIRUBIN, TOTAL 0.7 mg/dL 0.2-1.2 Oct 08, 2023 07:41 AM [facility] LIPID PANEL FASTING Specimen Type: SERUM No comment entered. Ordering Provider: JOSUE SIMMONS Report Released Date/Time: Oct 05, 2023 11:58 PM Reporting Lab: [address] [address] Performing Lab: [facility] [address] [address] CHOLESTEROL 133 mg/dL TRIGLYCERIDE 98 mg/dL 0-150 LDL calculated 70 mg/dL 0-129 CHOL/HDL 3.1 HDL CHOLESTEROL 43 mg/dL 40-60 Oct 08, 2023 07:41 AM [facility] TSH Specimen Type: SERUM No comment entered. Ordering Provider: JOSUE SIMMONS Report Released Date/Time: Oct 05, 2023 11:58 PM Reporting Lab: [address] [address] Performing Lab: [address] [address] TSH 2.46 u[IU]/mL 0.35-5.00 Oct 08, 2023 07:41 AM [facility] URINALYSIS CLEAN CATCH Specimen Type: URINE Comment: If Glucose = >500 and Ketones are positive, please alert the Physician. Ordering Provider: JOSUE SIMMONS Report Released Date/Time: Oct 05, 2023 11:58 PM Reporting Lab: [address] [address] Performing Lab: [address] [address] UA COLOR Light-Yellow Yellow UA APPEARANCE Clear [...] and tobacco- related health factors from the [place] facility where the Encounter took place. Current Smoking Status This section includes the most current smoking, or tobacco-related health factor, from the [place] facility where the Encounter took place. Date/Time Current Smoking Status Comment Facil ity Oct 16, 2023 01:30 PM VA-TOBACCO FORMER USER [place] [facility] [place] [facility] Tobacco Use History This section includes a history of the smoking, or tobacco-related health factors, that were collected on or before the date of the Encounter. The data comes from the [place] facility where the Encounter took place. Date/Time Smoking Status/Tobacco Use Comment F acility Oct 16, 2023 01:30 PM VA-TOBACCO QUIT 15 YRS OR MORE [place] [facility] [place] [facility] Jul 04, 2022 11:00 AM VA-TOBACCO FORMER USER [place] [facility] [place] [facility] Jul 04, 2022 11:00 AM VA-TOBACCO QUIT 15 YRS OR MORE [place] [facility] [place] [facility] Jun 28, 2021 10:30 AM VA-TOBACCO FORMER USER [place] [facility] [place] [facility] Jun 28, 2021 10:30 AM VA-TOBACCO QUIT 15 YRS OR MORE [place] [facility] [place] [facility] May 26, 2020 08:00 AM VA-TOBACCO FORMER USER [place] [facility] [place] [facility] May 26, 2020 08:00 AM VA-TOBACCO QUIT 15 YRS OR MORE [place] [facility] [place] [facility] May 23, 2018 11:21 AM VA-TOBACCO NEVER USED [place] [facility] [place] [facility] Advance Directives: All historical and current Section Date Range: From patient's date of to the date document was created. This section includes ALL of a patient's completed or amended [place] Advance and Rescinded Directives. The entries below indicate that a directive exists for the patient, but an actual copy is not included with this document. The data comes from all [place] facilities. Date Advance Directives Provider Source Feb 19, 2022 ADVANCE DIRECTIVE JOCE CASTORENA [facility] [place] [facility] November 16, 2020 ADVANCE DIRECTIVE JOSUE SIMMONS [facility] Encounter Notes: All associated encounter notes This section contains the clinical notes associated to the Encounter. Date/Time Encounter Note(s) Provider Source Oct 24, 2023 01:04 PM LETTERS: LOCAL TITLE: PATIENT LETTER (T) STANDARD TITLE: LETTERS DATE OF NOTE: OCT 24, 2023@13:04 ENTRY DATE: OCT 24, 2023@13:04:58 AUTHOR: JOSUE SIMMONS EXP COSIGNER: URGENCY: STATUS: COMPLETED [facility] Toll Free Number Primary Care Telephone Assistance can be reached at extension [phone] [facility] scheduling can be reached at extension [phone] [facility] scheduling can be reached at ext [phone] ALYCIA HUERTA [address], [place], [address] October 24, 2023 Dear , Please find [...] Simmons MD Sincerely, Your Primary Care Team [facility] [address] [address] [place] [address] [phone] [facility] [address] [place] [address] [place] [address] [facility] [address] [facility],[address] [place] [address] [place] [address] [phone] JOSUE SIMMONS [facility]
--- OUTSIDE RECORDS SUMMARY | 2024-07-06 08:05 | XMS_ITS | Encounter Summary ---
Author Name [facility] [place] Address [address] [place] [address] Care Team Providers Care Ticketing Clerk Name Role Phone BYRON BARRON Primary Care [...] Dec 19, 2007 MEDICAR E SUPPLEM E [id number] NYDIA HUERTA UL PATIENT [employer] MEDICARE SUPPLEMEN YORDAN Dec 19, 2007 MEDICAR E SUPPLEM E [id number] [phone] NYDIA HUERTA UL PATIENT [employer] [place] MEDICARE SUPPLEMEN YORDAN BANKE RS Dec 19, 2007 NONE [id number] NYDIA HUERTA UL PATIENT MEDICARE (WNR) MEDICARE (M) PART B Oct 13, 2006 PART B [id number] NYDIA HUERTA UL PATIENT MEDICARE (WNR) MEDICARE (M) PART B Oct 13, 2006 PART B [id number] NYDIA HUERTA UL PATIENT MEDICARE (WNR) MEDICARE (M) PART B Oct 13, 2006 PART B [id number] NYDIA HUERTA PATIENT MEDICARE (WNR) MEDICARE (M) PART B Oct 13, 2006 PART B [id number] NYDIA HUERTA PATIENT MEDICARE (WNR) MEDICARE (M) PART A Sep 13, 2003 PART A [id number] NYDIA HUERTA PATIENT MEDICARE (WNR) MEDICARE (M) PART A Sep 13, 2003 PART A [id number] NYDIA HUERTA PATIENT MEDICARE (WNR) MEDICARE (M) PART A Sep 13, 2003 PART A [id number] NYDIA HUERTA PATIENT MEDICARE (WNR) MEDICARE (M) PART A Sep 13, 2003 PART A [id number] [phone] NYDIA HUERTA PATIENT Selected Encounter This section includes the information on record at [place] for the Encounter. Date/Time Encounter Type Encounter Description Reason Provider Source Oct 24, 2023 12:32 PM OFFICE O/P EST SF 10 MIN DERMATOLOGY ICD-10-CM R21 Rash and other nonspecific skin eruption SAQIB PASTOR [facility] Encounter Template Text not used by [place] Assessments - Encounter Diagnoses This section includes the primary and secondary diagnoses documented for the Encounter. Date/Time Primary/Secondary Diagnosis Diagnosis Name Provider Source Nov 04, 2023 07:13 AM PRIMARY Rash and other nonspecific skin eruption SAQIB PASTOR [facility] Nov 04, 2023 07:13 AM SECONDARY Neoplasm of uncertain behavior of skin SAQIB PASTOR [facility] Plan of Treatment: Future Appointments (+ [...] 05, 2023 10:00 AM AMBULATORY - NONE [place] [facility] [place] [facility] Dec 30, 2023 11:00 AM AMBULATORY - REHAB MEDICIN E [facility] [place] [facility] Jan 13, 2024 01:20 PM AMBULATORY - MEDICINE [facility] [place] [facility] Jan 21, 2024 08:00 AM AMBULATORY - MEDICINE [facility] [place] [facility] Feb 03, 2024 01:30 PM AMBULATORY - REHAB MEDICIN E [facility] [place] [facility] Mar 05, 2024 08:00 AM AMBULATORY - MEDICINE [facility] [place] [facility] Mar 05, 2024 09:00 AM AMBULATORY - MEDICINE [place] [facility] [place] [facility] Mar 06, 2024 08:00 AM AMBULATORY - MEDICINE [place] [facility] [place] [facility] Mar 24, 2024 02:00 PM AMBULATORY - MEDICINE [place] [facility] [place] [facility] Mar 31, 2024 09:30 AM AMBULATORY - REHAB MEDICIN E [facility] [place] [facility] Apr 13, 2024 01:30 PM AMBULATORY - MEDICINE [place] [facility] [place] [facility] Lab Results: +/- 30 days of [...] Range Comment Oct 08, 2023 07:41 AM [facility] BASIC METABOLIC PANEL (fasting) Specimen Type: SERUM No comment entered. Ordering Provider: BYRON BARRON Report Released Date/Time: Oct 05, 2023 11:58 PM Reporting Lab[facility] [address] [facility] [address] Performing Lab: [facility] [address] [facility] [address] UREA NITROGEN 16 mg/dL 7-25 GLUCOSE 102 mg/dL H 65-100 SODIUM 143 mmol/L 135-145 POTASSIUM 4.4 mmol/L 3.5-5.0 CHLORIDE 106 mmol/L 100-110 CO2 26 meq/L 20-30 CREATININE, Serum 1.01 mg/dL 0.50-1.40 eGFR(CKD-EPI 2020) 73 mL/min >60 Oct 08, 2023 07:41 AM [facility] CBC AND DIFF (AUTO) Specimen Type: BLOOD No comment entered. Ordering Provider: BYRON BARRON Report Released Date/Time: Oct 05, 2023 11:58 PM Reporting Lab: [facility] [address] [facility] [address] Performing Lab: [facility] [address] [facility] [address] WBC 7.99 10*3/uL 4.50-11.00 RBC 4.47 10*6/uL 4.23-5.66 HGB 14.6 g/dL 12.8-17 HCT 42.7 39.2-50.4 MCV 95.5 fL 82-99 MCHC 34.2 g/dL 30.8-35.1 PLT 126 10*3/uL L 140-360 RDW-CV 12.9 12.0-16.0 [place], Abs 0.79 10*3/uL 0.30-1.10 MCH 32.7 pg H 26.2-32.6 Neut % 54.5 43.7-75.8 Lymph % 33.3 14.0-42.3 [place] % 9.9 5.1-13.7 Eos % 1.4 0.4-6.8 Baso % 0.6 0.1-2.0 Neut, Abs 4.36 10*3/uL 2.20-7.60 Lymph, Abs 2.66 10*3/uL 1.00-3.20 Eos, Abs 0.11 10*3/uL 0.03-0.44 Baso, Abs 0.05 10*3/uL 0.01-0.13 Immature Gran % 0.3 0.0-0.7 Immature Gran, Abs 0.02 10*3/uL 0.00-0.06 Oct 08, 2023 07:41 AM [facility] LIPID PANEL FASTING Specimen Type: SERUM No comment entered. Ordering Provider: BYRON BARRON Report Released Date/Time: Oct 05, 2023 11:58 PM Reporting Lab: [facility] [address] [facility] [address] Performing Lab: [facility] [address] [address] CHOLESTEROL 133 mg/dL TRIGLYCERIDE 98 mg/dL 0-150 LDL calculated 70 mg/dL 0-129 CHOL/HDL 3.1 HDL CHOLESTEROL 43 mg/dL 40-60 Oct 08, 2023 07:41 AM [facility] LIVER FUNCTION Specimen Type: SERUM No comment entered. Ordering Provider: BYRON BARRON Report Released Date/Time: Oct 05, 2023 11:58 PM Reporting Lab: [facility] [address] Performing Lab: [facility] [address] PROTEIN,TOTAL 6.6 g/dL 6.0-8.3 ALBUMIN 3.8 g/dL 3.5-5.0 ALKALINE PHOSPHATASE 103 U/L 40-150 AST 33 U/L 5-34 ALT 29 U/L BILIRUBIN, TOTAL 0.7 mg/dL 0.2-1.2 Oct 08, 2023 07:41 AM [facility] TSH Specimen Type: SERUM No comment entered. Ordering Provider: BYRON BARRON Report Released Date/Time: Oct 05, 2023 11:58 PM Reporting Lab: [facility] [address] Performing Lab: [facility] [address] [address] TSH 2.46 u[IU]/mL 0.35-5.00 Oct 08, 2023 07:41 AM [facility] URINALYSIS CLEAN CATCH Specimen Type: URINE Comment: If Glucose = >500 and Ketones are positive, please alert the Physician. Ordering Provider: BYRON BARRON Report Released Date/Time: Oct 05, 2023 11:58 PM Reporting Lab: [facility] [address] [address] Performing Lab: [facility] [place] [place] [address] UA COLOR Light-Yellow Yellow UA APPEARANCE Clear [...] Feb 19, 2022 ADVANCE DIRECTIVE JOCE CASTORENA [facility] November 16, 2020 ADVANCE DIRECTIVE BYRON BARRON [facility] Encounter Notes: All associated encounter [...] PA-C Dermatology Signed: 10/24/2023 12:40 SAQIB PASTOR [facility]
--- OUTSIDE RECORDS SUMMARY | 2024-07-06 08:05 | XMS_ITS ---
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 Organization [place] Address [address] [place] [id number] Care Team Providers Care Spooling Supervisor Name Role Phone BYRON BARRON Primary [...] Dec 19, 2007 MEDICAR E SUPPLEM E [id number] NYDIA HUERTA UL PATIENT [employer] MEDICARE SUPPLEMEN YORDAN Dec 19, 2007 MEDICAR E SUPPLEM E [id number] NYDIA HUERTA UL PATIENT [employer] [place] MEDICARE SUPPLEMEN YORDAN BANKE RS Dec 19, 2007 NONE [id number] [phone] NYDIA HUERTA UL PATIENT MEDICARE (WNR) MEDICARE (M) PART B Oct 13, 2006 PART B [id number] NYDIA HUERTA UL PATIENT MEDICARE (WNR) MEDICARE (M) PART B Oct 13, 2006 PART B [id number] DOM[place] UL PATIENT MEDICARE (WNR) MEDICARE (M) PART B Oct 13, 2006 PART B [id number] NYDIA HUERTA PATIENT MEDICARE (WNR) MEDICARE (M) PART B Oct 13, 2006 PART B [id number] NYDIA HUERTA PATIENT MEDICARE (WNR) MEDICARE (M) PART A Sep 13, 2003 PART A [id number] NYDIA HUERTA PATIENT MEDICARE (WNR) MEDICARE (M) PART A Sep 13, 2003 PART A [id number] [phone] NYDIA HUERTA PATIENT MEDICARE (WNR) MEDICARE (M) PART A Sep 13, 2003 PART A [id number] NYDIA HUERTA PATIENT MEDICARE (WNR) MEDICARE (M) PART A Sep 13, 2003 PART A [id number] NYDIA HUERTA PATIENT Selected Encounter This [...] 16, 2023 01:30 PM AMBULATORY - MEDICINE [facility] [place] [place] [facility] Oct 24, 2023 09:00 AM AMBULATORY - NONE [facility] [place] [facility] December 05, 2023 10:00 AM AMBULATORY - NONE [facility] [place] [facility] Dec 30, 2023 11:00 AM AMBULATORY - REHAB MEDICIN E [facility] [place] [facility] Jan 13, 2024 01:20 PM AMBULATORY - MEDICINE [facility] C [place]L [place] [facility] Jan 21, 2024 08:00 AM AMBULATORY - MEDICINE [facility] C [facility]L [place] [facility] Feb 03, 2024 01:30 PM AMBULATORY - REHAB MEDICIN E [facility] [place] [facility] Mar 05, 2024 08:00 AM [facility] Mar 05, 2024 09:00 AM AMBULATORY - MEDICINE [facility] Mar 06, 2024 08:00 AM AMBULATORY - MEDICINE CT C [place]L [place] [facility] Mar 24, 2024 02:00 PM AMBULATORY - MEDICINE CT C [place]TRL [place] [facility] Mar 31, 2024 09:30 AM [facility] Lab Results: +/- 30 days [...] Range Comment Oct 08, 2023 07:41 AM [facility] BASIC METABOLIC PANEL (fasting) Specimen Type: SERUM No comment entered. Ordering Provider: BYRON BARRON Report Released Date/Time: Oct 05, 2023 11:58 PM Reporting Lab: [address] [address] Performing Lab: [address] [address] UREA NITROGEN 16 mg/dL 7-25 GLUCOSE 102 mg/dL H 65-100 SODIUM 143 mmol/L 135-145 POTASSIUM 4.4 mmol/L 3.5-5.0 CHLORIDE 106 mmol/L 100-110 CO2 26 meq/L 20-30 CREATININE, Serum 1.01 mg/dL 0.50-1.40 eGFR(CKD-EPI 2020) 73 mL/min >60 Oct 08, 2023 07:41 AM [facility] LIVER FUNCTION Specimen Type: SERUM No comment entered. Ordering Provider: BYRON BARRON Report Released Date/Time: Oct 05, 2023 11:58 PM Reporting Lab: [facility] [address] [facility] [address] Performing Lab: [address] [address] PROTEIN,TOTAL 6.6 g/dL 6.0-8.3 ALBUMIN 3.8 g/dL 3.5-5.0 ALKALINE PHOSPHATASE 103 U/L 40-150 AST 33 U/L 5-34 ALT 29 U/L BILIRUBIN, TOTAL 0.7 mg/dL 0.2-1.2 Oct 08, 2023 07:41 AM [facility] CBC AND DIFF (AUTO) Specimen Type: BLOOD No comment entered. Ordering Provider: BYRON BARRON Report Released Date/Time: Oct 05, 2023 11:58 PM Reporting Lab: [address] [address] Performing Lab: [address] [address] WBC 7.99 10*3/uL 4.50-11.00 RBC 4.47 10*6/uL 4.23-5.66 HGB 14.6 g/dL 12.8-17 HCT 42.7 39.2-50.4 MCV 95.5 fL 82-99 MCHC 34.2 g/dL 30.8-35.1 PLT 126 10*3/uL L 140-360 RDW-CV 12.9 12.0-16.0 Wheeler, Abs 0.79 10*3/uL 0.30-1.10 MCH 32.7 pg H 26.2-32.6 Neut % 54.5 43.7-75.8 Lymph % 33.3 14.0-42.3 Wheeler % 9.9 5.1-13.7 Eos % 1.4 0.4-6.8 Baso % 0.6 0.1-2.0 Neut, Abs 4.36 10*3/uL 2.20-7.60 Lymph, Abs 2.66 10*3/uL 1.00-3.20 Eos, Abs 0.11 10*3/uL 0.03-0.44 Baso, Abs 0.05 10*3/uL 0.01-0.13 Immature Gran % 0.3 0.0-0.7 Immature Gran, Abs 0.02 10*3/uL 0.00-0.06 Oct 08, 2023 07:41 AM [facility] TSH Specimen Type: SERUM No comment entered. Ordering Provider: BYRON BARRON Report Released Date/Time: Oct 05, 2023 11:58 PM Reporting Lab: [address] [address] Performing Lab: [address] [address] TSH 2.46 u[IU]/mL 0.35-5.00 Oct 08, 2023 07:41 AM [facility] LIPID PANEL FASTING Specimen Type: SERUM No comment entered. Ordering Provider: BYRON BARRON Report Released Date/Time: Oct 05, 2023 11:58 PM Reporting Lab: [address] [address] Performing Lab: [address] [address] CHOLESTEROL 133 mg/dL TRIGLYCERIDE 98 mg/dL 0-150 LDL calculated 70 mg/dL 0-129 CHOL/HDL 3.1 HDL CHOLESTEROL 43 mg/dL 40-60 Oct 08, 2023 07:41 AM [facility] URINALYSIS CLEAN CATCH Specimen Type: URINE Comment: If Glucose = >500 and Ketones are positive, please alert the Physician. Ordering Provider: BYRON BARRON Report Released Date/Time: Oct 05, 2023 11:58 PM Reporting Lab: [address] [address] Performing Lab: [address] [address] UA COLOR Light-Yellow Yellow UA APPEARANCE Clear [...] Facil ity Jul 04, 2022 11:[address] Tobacco Use History This section includes a history of the smoking, or tobacco-related health factors, that were collected on or before the date of the Encounter. The data comes from the [place] facility where the Encounter took place. Date/Time Smoking Status/Tobacco Use Comment F acility Jul 04, 2022 11:00 AM VA-TOBACCO QUIT [address] [facility] Jun 28, 2021 10:30 AM VA-TOBACCO FORMER USER [place] [facility]L [place] [facility] Jun 28, 2021 10:[address]-TOBACCO QUIT [address] [facility]TR [place] [facility] May 26, 2020 08:00 AM VA-TOBACCO FORMER USER CT CNTRL [place] [facility] May 26, 2020 08:00 AM VA-TOBACCO QUIT 15 YRS OR [facility] [place] [facility] May 23, 2018 11:21 AM [facility] Advance Directives: All historical and current Section [...] Feb 19, 2022 ADVANCE DIRECTIVE JOCE CASTORENA [facility] November 16, 2020 ADVANCE DIRECTIVE BYRON BARRON [facility] Encounter Notes: All associated encounter notes [...] your upcoming appt. [ ] Location in [facility] [X] Fasting labs - LABS ARE COMPLETED [ ] Lab work within 30 days [ ] Urine [ ] No Preparation Action taken: [ ] Called , left voice message [ ] Called , unable to leave voice mail [X] Spoke to /critical care clinical nurse specialist to remind them of upcoming appt/preparations Upcoming Appointments: 10/16/2023 13:30 CWM/NO/PACT 2 02/04/2024 15:30 NHM/OPTOMETRY/CALDERON/ 04/28/2024 14:00 CWM/NO/DERMATOLOGY C /es/ JOCE CASTROENA AMSA Signed: 2023 13:[address] [facility] [facility]
--- OUTSIDE RECORDS SUMMARY | 2024-07-06 08:05 | XMS_ITS ---
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 Address [address] [place] [address] Care Team Providers Care Aircraft Inspection Record Clerk Name Role Phone JOSUE SIMMONS Primary Care [...] Dec 19, 2007 MEDICAR E SUPPLEM E [id number] NYDIA HUERTA UL PATIENT [employer] MEDICARE SUPPLEMEN YORDAN Dec 19, 2007 MEDICAR E SUPPLEM E [id number] NYDIA HUERTA UL PATIENT [employer] [place] MEDICARE SUPPLEMEN YORDAN BANKE RS Dec 19, 2007 NONE [id number] NYDIA HUERTA UL PATIENT MEDICARE (WNR) MEDICARE (M) PART B Oct 13, 2006 PART B [id number] [phone] NYDIA HUERTA UL PATIENT MEDICARE (WNR) MEDICARE (M) PART B Oct 13, 2006 PART B [id number] NYDIA HUERTA UL PATIENT MEDICARE (WNR) MEDICARE (M) PART B Oct 13, 2006 PART B [id number] NYDIA HUERTA PATIENT MEDICARE (WNR) MEDICARE (M) PART B Oct 13, 2006 PART B [id number] NYDIA HUERTA PATIENT MEDICARE (WNR) MEDICARE (M) PART A Sep 13, 2003 PART A [id number] [phone] NYDIA HUERTA PATIENT MEDICARE (WNR) MEDICARE (M) PART A Sep 13, 2003 PART A [id number] NYDIA HUERTA PATIENT MEDICARE (WNR) MEDICARE (M) PART A Sep 13, 2003 PART A [id number] NYDIA HUERTA PATIENT MEDICARE (WNR) MEDICARE (M) PART A Sep 13, 2003 PART A [id number] NYDIA HUERTA PATIENT Selected Encounter This [...] - MEDICINE [place] [facility] Jul 20, 2024 08:00 AM AMBULATORY - MEDICINE [place] [facility] Aug 14, 2024 03:00 PM AMBULATORY - MEDICINE [place] [facility] Oct 07, 2024 09:00 AM AMBULATORY - MEDICINE [place] [facility] Oct 28, 2024 08:00 AM AMBULATORY - MEDICINE [place] [facility] Active, Pending, and Scheduled Orders This section includes a listing of several types of active, pending, and scheduled orders, including clinic medications orders, diagnostic test orders, procedure orders and consult orders; where the start date of the order is 45 days before the date of the Encounter or 45 days after the date of theEncounter. The data comes from all [place] treatment facilities. Test Date/Time Test Type Test Details Facility Name Jun 06, 2024 04:26 PM Consult Order [facility] Cons Feed Manager's Choice [place] [facility] Jun 26, 2024 04:42 PM Consult Order [facility] NON-SKILLED HOME HEALTH AIDE Cons Feed Manager's Choice [place] [facility] Social History: Smoking Status (Most current) and [...] PM VA-TOBACCO [facility]IT 15 YRS OR [facility] Tobacco Use History This section includes a history of the smoking, or tobacco-related health factors, that were collected on or before the date of the Encounter. The data comes from the [place] facility where the Encounter took place. Date/Time Smoking Status/Tobacco Use Comment F acility Oct 16, 2023 01:30 PM VA-TOBACCO QUIT 15 YRS OR MORE [place] [facility] Jul 04, 2022 11:00 AM VA-TOBACCO FORMER USER [place] [place] [facility] Jul 04, 2022 11:00 AM VA-TOBACCO QUIT 15 YRS OR MORE [place] [facility] [place] [facility] Jun 28, 2021 10:30 AM VA-TOBACCO FORMER USER [place] [place] [facility] Jun 28, 2021 10:30 AM VA-TOBACCO QUIT 15 YRS OR MORE [place] [facility] May 26, 2020 08:00 AM VA-TOBACCO FORMER USER [place] [facility] May 26, 2020 08:00 AM [place]-TOBACCO QUIT 15 YRS OR MORE [facility] May 23, 2018 11:21 AM [place]-TOBACCO NEVER USED [facility] Advance Directives: All [...] Feb 19, 2022 ADVANCE DIRECTIVE JOCE CASTORENA [facility] November 16, 2020 ADVANCE DIRECTIVE JOSUE SIMMONS [facility] Encounter Notes: All [...] Staff Physician Signed: 06/06/2024 16:27 JOSUE SIMMONS [facility]
--- OUTSIDE RECORDS SUMMARY | 2024-07-06 08:05 | XMS_ITS | Encounter Summary ---
Author Name [place] Address [address] [place] [address] Care Team Providers Care Baggage Checker Name Role Phone BYRON BARRON Primary Care [...] Dec 19, 2007 MEDICAR E SUPPLEM E [id number] NYDIA HUERTA UL PATIENT [employer] MEDICARE SUPPLEMEN YORDAN Dec 19, 2007 MEDICAR E SUPPLEM E [id number] [phone] NYDIA HUERTA UL PATIENT [employer] [place] MEDICARE SUPPLEMEN YORDAN BANKE RS Dec 19, 2007 NONE [id number] NYDIA HUERTA UL PATIENT MEDICARE (WNR) MEDICARE (M) PART B Oct 13, 2006 PART B [id number] NYDIA HUERTA UL PATIENT MEDICARE (WNR) MEDICARE (M) PART B Oct 13, 2006 PART B [id number] DOMINA,[place] UL PATIENT MEDICARE (WNR) MEDICARE (M) PART B Oct 13, 2006 PART B [id number] NYDIA HUERTA PATIENT MEDICARE (WNR) MEDICARE (M) PART B Oct 13, 2006 PART B [id number] NYDIA HUERTA PATIENT MEDICARE (WNR) MEDICARE (M) PART A Sep 13, 2003 PART A [id number] NYDIA HUERTA PATIENT MEDICARE (WNR) MEDICARE (M) PART A Sep 13, 2003 PART A [id number] NYDIA HUERTA PATIENT MEDICARE (WNR) MEDICARE (M) PART A Sep 13, 2003 PART A [id number] [phone] NYDIA HUERTA PATIENT MEDICARE (WNR) MEDICARE (M) PART A Sep 13, 2003 PART A [id number] NYDIA HUERTA PATIENT Selected Encounter This section includes the information on record at [place] for the Encounter. Date/Time Encounter Type Encounter Description Reason Provider Source Oct 24, 2023 09:00 AM UNLISTED SPEC DERM SVC/PX DERMATOLOGY ICD-10-CM Z13.89 Encounter for screening for other disorder SALMA BEAUCHAMP [facility] Encounter Template Text not used by [place] Assessments - Encounter Diagnoses This section includes the primary and secondary diagnoses documented for the Encounter. Date/Time Primary/Secondary Diagnosis Diagnosis Name Provider Source November 15, 2023 11:50 AM PRIMARY Encounter for screening for other disorder SALMA BEAUCHAMP [facility] Plan of Treatment: Future Appointments (+ [...] 05, 2023 10:00 AM AMBULATORY - NONE [facility] Dec 30, 2023 11:00 AM AMBULATORY - REHAB MEDICIN E [place] [place] [facility] Jan 13, 2024 01:20 PM AMBULATORY - MEDICINE [place] [facility] Jan 21, 2024 08:00 AM AMBULATORY - MEDICINE [place] [facility] Feb 03, 2024 01:30 PM AMBULATORY - REHAB MEDICIN E [place] [place] [facility] Mar 05, 2024 08:00 AM AMBULATORY - MEDICINE [place] [facility] Mar 05, 2024 09:00 AM AMBULATORY - MEDICINE [place] [facility] Mar 06, 2024 08:00 AM AMBULATORY - MEDICINE [place] [facility] Mar 24, 2024 02:00 PM AMBULATORY - MEDICINE [place] [facility] Mar 31, 2024 09:30 AM AMBULATORY - REHAB MEDICIN E [place] [facility] [place] [facility] Apr 13, 2024 01:30 PM AMBULATORY - MEDICINE IN [facility] Lab Results: +/- 30 days of the [...] Range Comment Oct 08, 2023 07:41 AM [facility] BASIC METABOLIC PANEL (fasting) Specimen Type: SERUM No comment entered. Ordering Provider: BYRON BARRON Report Released Date/Time: Oct 05, 2023 11:58 PM Reporting Lab: [facility] [address] [facility] [address] Performing Lab: [facility] [address] [address] UREA NITROGEN 16 mg/dL 7-25 GLUCOSE 102 mg/dL H 65-100 SODIUM 143 mmol/L 135-145 POTASSIUM 4.4 mmol/L 3.5-5.0 CHLORIDE 106 mmol/L 100-110 CO2 26 meq/L 20-30 CREATININE, Serum 1.01 mg/dL 0.50-1.40 eGFR(CKD-EPI 2020) 73 mL/min >60 Oct 08, 2023 07:41 AM [facility] CBC AND DIFF (AUTO) Specimen Type: BLOOD No comment entered. Ordering Provider: BYRON BARRON Report Released Date/Time: Oct 05, 2023 11:58 PM Reporting Lab: [facility] [address] [facility] [address] Performing Lab: [facility] [address] [facility] [address] WBC 7.99 10*3/uL 4.50-11.00 RBC 4.47 10*6/uL 4.23-5.66 HGB 14.6 g/dL 12.8-17 HCT 42.7 39.2-50.4 MCV 95.5 fL 82-99 MCHC 34.2 g/dL 30.8-35.1 PLT 126 10*3/uL L 140-360 RDW-CV 12.9 12.0-16.0 [place], Abs 0.79 10*3/uL 0.30-1.10 MCH 32.7 pg H 26.2-32.6 Neut % 54.5 43.7-75.8 Lymph % 33.3 14.0-42.3 [place] % 9.9 5.1-13.7 Eos % 1.4 0.4-6.8 Baso % 0.6 0.1-2.0 Neut, Abs 4.36 10*3/uL 2.20-7.60 Lymph, Abs 2.66 10*3/uL 1.00-3.20 Eos, Abs 0.11 10*3/uL 0.03-0.44 Baso, Abs 0.05 10*3/uL 0.01-0.13 Immature Gran % 0.3 0.0-0.7 Immature Gran, Abs 0.02 10*3/uL 0.00-0.06 Oct 08, 2023 07:41 AM [facility] LIPID PANEL FASTING Specimen Type: SERUM No comment entered. Ordering Provider: BYRON BARRON Report Released Date/Time: Oct 05, 2023 11:58 PM Reporting Lab: [facility] [address] [facility] [address] Performing Lab: IN CNTRL W[facility] [address] [facility] [address] CHOLESTEROL 133 mg/dL TRIGLYCERIDE 98 mg/dL 0-150 LDL calculated 70 mg/dL 0-129 CHOL/HDL 3.1 HDL CHOLESTEROL 43 mg/dL 40-60 Oct 08, 2023 07:41 AM [facility] LIVER FUNCTION Specimen Type: SERUM No comment entered. Ordering Provider: BYRON BARRON Report Released Date/Time: Oct 05, 2023 11:58 PM Reporting Lab: [facility] TRN [facility] [address] [facility] [address] Performing Lab: [facility] SYSTEMUSE[address] [address] PROTEIN,TOTAL 6.6 g/dL 6.0-8.3 ALBUMIN 3.8 g/dL 3.5-5.0 ALKALINE PHOSPHATASE 103 U/L 40-150 AST 33 U/L 5-34 ALT 29 U/L BILIRUBIN, TOTAL 0.7 mg/dL 0.2-1.2 Oct 08, 2023 07:41 AM [facility] TSH Specimen Type: SERUM No comment entered. Ordering Provider: BYRON BARRON Report Released Date/Time: Oct 05, 2023 11:58 PM Reporting Lab: [facility] TRN [facility] [address] [facility] [address] Performing Lab: [facility] TRN [facility] SYSTEMUSETS [address] [address] TSH 2.46 u[IU]/mL 0.35-5.00 Oct 08, 2023 07:41 AM [facility]N [facility] URINALYSIS CLEAN CATCH Specimen Type: URINE Comment: If Glucose = >500 and Ketones are positive, please alert the Physician. Ordering Provider: BYRON BARRON Report Released Date/Time: Oct 05, 2023 11:58 PM Reporting Lab: [facility] SYSTEMRRMC [facility]ITALTRN [facility]ETS [facility] [address] [facility] [address] Performing Lab: [facility] SYSTEMRRMC [facility]PITALTRN [facility] SYSTEMUSETS [address] [address] UA COLOR Light-Yellow Yellow UA APPEARANCE Clear [...] 16, 2023 01:30 PM VA-TOBACCO FORMER USER [place]TRL [place] [facility] Tobacco Use History This section includes a history of the smoking, or tobacco-related health factors, that were collected on or before the date of the Encounter. The data comes from the [place] facility where the Encounter took place. Date/Time Smoking Status/Tobacco Use Comment F acgary Oct 16, 2023 01:30 PM VA-TOBACCO QUIT 15 YRS OR MORE [place] [facility] Jul 04, 2022 11:00 AM VA-TOBACCO FORMER USER [place] [place] [facility] Jul 04, 2022 11:00 AM VA-TOBACCO QUIT 15 YRS OR MORE [place] [facility] [place] [facility] Jun 28, 2021 10:30 AM VA-TOBACCO FORMER USER [place] [facility] [place] [facility] Jun 28, 2021 10:30 AM VA-TOBACCO QUIT 15 YRS OR MORE [place] [facility] [place] [facility] May 26, 2020 08:00 AM VA-TOBACCO FORMER USER [place] [place] [facility] May 26, 2020 08:00 AM VA-TOBACCO QUIT 15 YRS OR MORE [place] [facility] [place] [facility] May 23, 2018 11:21 AM VA-TOBACCO NEVER USED IN CNTRL [place] [facility] Advance Directives: All historical and current Section [...] Provider Source Feb 19, 2022 ADVANCE DIRECTIVE EDERLENOJOCEAN [facility] November 16, 2020 ADVANCE DIRECTIVE BEATRICEBYRON Noa [facility] Encounter Notes: All associated encounter notes [...] CHANGES: Other unknown TREATMENT: No BIOPSY: No 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
--- OUTSIDE RECORDS SUMMARY | 2024-07-06 08:05 | XMS_ITS ---
Author Name [place] Address [address] [place] [address] Care Team Providers Care Coper Hand Name Role Phone BYRON BARRON Primary [...] Dec 19, 2007 MEDICAR E SUPPLEM E [id number] NYDIA HUERTA PATIENT [employer] MEDICARE SUPPLEMEN YORDAN Dec 19, 2007 MEDICAR E SUPPLEM E [id number] NYDIA HUERTA UL PATIENT [employer] CO MEDICARE SUPPLEMEN YORDAN BANKE RS Dec 19, 2007 NONE [id number] [phone] NYDIA HUERTA UL PATIENT MEDICARE (WNR) MEDICARE (M) PART B Oct 13, 2006 PART B [id number] NYDIA HUERTA UL PATIENT MEDICARE (WNR) MEDICARE (M) PART B Oct 13, 2006 PART B [id number] [id number] NYDIA HUERTA PATIENT MEDICARE (WNR) MEDICARE (M) PART B Oct 13, 2006 PART B [id number] [phone] NYDIA HUERTA PATIENT MEDICARE (WNR) MEDICARE (M) PART B Oct 13, 2006 PART B [id number] [phone] NYDIA HUERTA PATIENT MEDICARE (WNR) MEDICARE (M) PART A Sep 13, 2003 PART A [id number] [phone] [id number] NYDIA HUERTA PATIENT MEDICARE (WNR) MEDICARE (M) PART A Sep 13, 2003 PART A [id number] NYDIA HUERTA PATIENT MEDICARE (WNR) MEDICARE (M) PART A Sep 13, 2003 PART A [id number] [phone] NYDIA HUERTA PATIENT MEDICARE (WNR) MEDICARE (M) PART A Sep 13, 2003 PART A [id number] NYDIA HUERTA PATIENT Selected Encounter This section includes the information on record at [place] for the Encounter. Date/Time Encounter Type Encounter Description Reason Provider Source Oct 16, 2023 01:57 PM OFF/OP EST NOVEMBER X REQ PHY/QHP PRIMARY CARE/MEDICINE ICD-10-CM Z23 Encounter for immunization BYRON BARRON Aranza Encounter Template Text not used by [place] Assessments - Encounter Diagnoses This section includes the primary and secondary diagnoses documented for the Encounter. Date/Time Primary/Secondary Diagnosis Diagnosis Name Provider Source November 21, 2023 12:01 PM PRIMARY Encounter for immunization SHERMAN EMESRON [facility] Plan of Treatment: Future Appointments (+ 6 months) and Future Tests (+/- 45 days) The Plan of Treatment section includes future care activities for the patient from all [place] treatmentfacilities. This section includes future appointments and future orders which are active, pending or scheduled. Future Appointments This section includes appointments that were scheduled to occur 6 months from the date of the Encounter, up to a maximum of 20 appointments. The data comes from all [place] treatment facilities. Appointment Date/Time Appointment Type Appointme nt Facility Name Oct 24, 2023 09:00 AM AMBULATORY - NONE [facility] December 05, 2023 10:00 AM AM[facility]UL[facility]ORY [facility] NONE [facility] [place] [facility] Dec 30, 2023 11:00 AM AMBULATORY - REHAB MEDICIN E [facility] [place] [facility] Jan 13, 2024 01:20 PM AMBULATORY - MEDICINE [place] [facility] [place] [facility] Jan 21, 2024 08:00 AM AMBULATORY - MEDICINE [place] [facility] [place] [facility] Feb 03, 2024 01:30 PM AMBULATORY - REHAB MEDICIN E [facility] [place] [facility] Mar 05, 2024 08:00 AM AMBULATORY - MEDICINE [place] [facility] [place] [facility] Mar 05, 2024 09:00 AM AMBULATORY - MEDICINE [place] [facility] [place] [facility] Mar 06, 2024 08:00 AM AMBULATORY - MEDICINE [place] [facility] [place] [facility] Mar 24, 2024 02:00 PM AMBULATORY - MEDICINE [place] [facility] [place] [facility] Mar 31, 2024 09:30 AM AMBULATORY - REHAB MEDICIN E [facility] [place] [facility] Apr 13, 2024 01:30 PM AMBULATORY - MEDICINE [place] [facility] [facility] Lab Results: +/- 30 days of the encounter This section includes the Chemistry and Hematology Lab Results on record with [place] for the patient. Radiology Reports and Pathology Reports are provided separately, in subsequent sections. Lab Results This section contains the Chemistry/Hematology Results that were resulted 30 days before or 30 daysafter the date of the Encounter. Date/Time Source Result Type Result - Unit Interpretation Reference Range Comment Oct 08, 2023 07:41 AM [place] [facility] BASIC METABOLIC PANEL (fasting) Specimen Type: SERUM No comment entered. Ordering Provider: BYRON BARRON Report Released Date/Time: Oct 05, 2023 11:58 PM Reporting Lab[facility] [address] [facility] [address] Performing [facility]: [facility] [address] [address] UREA NITROGEN 16 mg/dL 7-25 GLUCOSE 102 mg/dL H 65-100 SODIUM 143 mmol/L 135-145 POTASSIUM 4.4 mmol/L 3.5-5.0 CHLORIDE 106 mmol/L 100-110 CO2 26 meq/L 20-30 CREATININE, Serum 1.01 mg/dL 0.50-1.40 eGFR(CKD-EPI 2020) 73 mL/min >60 Oct 08, 2023 07:41 AM [facility] CBC AND DIFF (AUTO) Specimen Type: BLOOD No comment entered. Ordering Provider: BYRON BARRON Report Released Date/Time: Oct 05, 2023 11:58 PM Reporting Lab: [facility] [address] [facility] [address] Performing Lab: [facility] [address] [facility] [address] WBC 7.99 10*3/uL 4.50-11.00 RBC 4.47 10*6/uL 4.23-5.66 HGB 14.6 g/dL 12.8-17 HCT 42.7 39.2-50.4 MCV 95.5 fL 82-99 MCHC 34.2 g/dL 30.8-35.1 PLT 126 10*3/uL L 140-360 RDW-CV 12.9 12.0-16.0 [place], Abs 0.79 10*3/uL 0.30-1.10 MCH 32.7 pg H 26.2-32.6 Neut % 54.5 43.7-75.8 Lymph % 33.3 14.0-42.3 [place] % 9.9 5.1-13.7 Eos % 1.4 0.4-6.8 Baso % 0.6 0.1-2.0 Neut, Abs 4.36 10*3/uL 2.20-7.60 Lymph, Abs 2.66 10*3/uL 1.00-3.20 Eos, Abs 0.11 10*3/uL 0.03-0.44 Baso, Abs 0.05 10*3/uL 0.01-0.13 Immature Gran % 0.3 0.0-0.7 Immature Gran, Abs 0.02 10*3/uL 0.00-0.06 Oct 08, 2023 07:41 AM [facility] LIPID PANEL FASTING Specimen Type: SERUM No comment entered. Ordering Provider: BYRON BARRON Report Released Date/Time: Oct 05, 2023 11:58 PM Reporting [facility] [address] [address] Performing Lab: [facility] [address] CHOLESTEROL 133 mg/dL TRIGLYCERIDE 98 mg/dL 0-150 LDL calculated 70 mg/dL 0-129 CHOL/HDL 3.1 HDL CHOLESTEROL 43 mg/dL 40-60 Oct 08, 2023 07:41 AM [facility] LIVER FUNCTION Specimen Type: SERUM No comment entered. Ordering Provider: BYRON BARRON Report Released Date/Time: Oct 05, 2023 11:58 PM Reporting Lab: [facility] [address] [address] Performing Lab: [address] [address] PROTEIN,TOTAL 6.6 g/dL 6.0-8.3 ALBUMIN 3.8 g/dL 3.5-5.0 ALKALINE PHOSPHATASE 103 U/L 40-150 AST 33 U/L 5-34 ALT 29 U/L BILIRUBIN, TOTAL 0.7 mg/dL 0.2-1.2 Oct 08, 2023 07:41 AM [facility] TSH Specimen Type: SERUM No comment entered. Ordering Provider: BYRON BARRON Report Released Date/Time: Oct 05, 2023 11:58 PM Reporting Lab: [address] [address] Performing [facility]: [facility] [address] [address] TSH 2.46 u[IU]/mL 0.35-5.00 Oct 08, 2023 07:41 AM [facility] URINALYSIS CLEAN CATCH Specimen Type: URINE Comment: If Glucose = >500 and Ketones are positive, please alert the Physician. Ordering Provider: BYRON BARRON Report Released Date/Time: Oct 05, 2023 11:58 PM Reporting Lab: [address] [address] Performing Lab: [facility] [address] [facility] [address] UA COLOR Light-Yellow Yellow UA APPEARANCE Clear [...] Source Oct 16, 2023 01:44 PM 128/76 [facility] [employer] [place] [facility] Oct 16, 2023 01:15 PM 98.2 86 140/72 16 98 0 211 35 [facility] Immunizations: All administered on the encounter [...] and tobacco- related health factors from the [place] facility where the Encounter took place. Current Smoking Status This section includes the most current smoking, or tobacco-related health factor, from the [place] facility where the Encounter took place. Date/Time Current Smoking Status Comment Darling blum Oct 16, 2023 01:30 PM VA-TOBACCO FORMER USER [facility] Tobacco Use History This section includes a history of the smoking, or tobacco-related health factors, that were collected on or before the date of the Encounter. The data comes from the [place] facility where the Encounter took place. Date/Time Smoking Status/Tobacco Use Comment F acgary Oct 16, 2023 01:30 PM VA-TOBACCO QUIT 15 YRS OR MORE [facility] Jul 04, 2022 11:00 AM VA-TOBACCO FORMER USER [facility] Jul 04, 2022 11:00 AM VA-TOBACCO QUIT 15 YRS OR MORE [place] [facility] [facility] Jun 28, 2021 10:30 AM VA-TOBACCO FORMER USER [place] [facility] [facility] Jun 28, 2021 10:30 AM VA-TOBACCO QUIT 15 YRS OR MORE [place] [facility] [facility] May 26, 2020 08:00 AM VA-TOBACCO FORMER USER [place] [facility] [facility] May 26, 2020 08:00 AM VA-TOBACCO QUIT 15 YRS OR MORE [place] [facility] [facility] May 23, 2018 11:21 AM VA-TOBACCO [facility]ED [facility] Advance Directives: All historical and current Section Date Range: From patient's date of to the date document was created. This section includes ALL of a patient's completed or amended [place] Advance and Rescinded Directives. The entries below indicate that a directive exists for the patient, but an actual copy is not included with this document. The data comes from all [place] facilities. Date Advance Directives Provider Source Feb 19, 2022 ADVANCE DIRECTIVE JOCE CASTORENA [facility] November 16, 2020 ADVANCE DIRECTIVE BYRON BARRON [facility] Encounter Notes: All associated encounter notes This [...] Oct 16, 2023 13:57 Series: Series 1 Gem Expert: [employer] Lot: [id number] Exp Date: Oct 12, 2024 NDC: [id number] Admin Route/Site: INTRAMUSCULAR/LEFT DELTOID Dosage: 0.5mL Vaccine Information Statement(s): RSV (RESPIRATORY SYNCYTIAL VIRUS) VACCINE VIS May 02, 2023 ([place]) Order By: Policy Administered By: Earle Andrade/ EARLE ANDRADE LPN Signed: 10/16/2023 13:58 EARLE ANDRADE [facility]
--- OUTSIDE RECORDS SUMMARY | 2024-07-06 08:05 | XMS_ITS | Encounter Summary ---
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 Address [address] [place] [address] Care Team Providers Care Supervisor Air Conditioning Installer Name Role Phone BYRON BARRON Primary Care [...] Dec 19, 2007 MEDICAR E SUPPLEM E [id number] [phone] NYDIA HUERTA UL PATIENT [employer] MEDICARE SUPPLEMEN YORDAN Dec 19, 2007 MEDICAR E SUPPLEM E [id number] NYDIA HUERTA UL PATIENT [employer] CO MEDICARE SUPPLEMEN YORDAN BANKE RS Dec 19, 2007 NONE [id number] NYDIA HUERTA UL PATIENT MEDICARE (WNR) MEDICARE (M) PART B Oct 13, 2006 PART B [id number] NYDIA HUERTA UL PATIENT MEDICARE (WNR) MEDICARE (M) PART B Oct 13, 2006 PART B [id number] [phone] NYDIA HURETA UL PATIENT MEDICARE (WNR) MEDICARE (M) PART B Oct 13, 2006 PART B [id number] NYDIA HUERTA PATIENT MEDICARE (WNR) MEDICARE (M) PART B Oct 13, 2006 PART B [id number] NYDIA HUERTA PATIENT MEDICARE (WNR) MEDICARE (M) PART A Sep 13, 2003 PART A [id number] NYDIA HUERTA PATIENT MEDICARE (WNR) MEDICARE (M) PART A Sep 13, 2003 PART A [id number] [phone] NYDIA HUERTA PATIENT MEDICARE (WNR) MEDICARE (M) PART A Sep 13, 2003 PART A [id number] NYDIA HUERTA PATIENT MEDICARE (WNR) MEDICARE (M) PART A Sep 13, 2003 PART A [id number] NYDIA HUERTA PATIENT Selected Encounter This [...] 05, 2023 10:00 AM AMBULATORY - NONE [place] [facility] [facility] Dec 30, 2023 11:00 AM AMBULATORY - REHAB MEDICIN E [facility] [facility] Jan 13, 2024 01:20 PM AMBULATORY - MEDICINE [place] [facility] Jan 21, 2024 08:00 AM AMBULATORY - MEDICINE [place] [facility] Feb 03, 2024 01:30 PM AMBULATORY - REHAB MEDICIN E [facility] [facility] Mar 05, 2024 08:00 AM AMBULATORY - MEDICINE [place] [facility] Mar 05, 2024 09:00 AM AMBULATORY - MEDICINE [place] [facility] Mar 06, 2024 08:00 AM AMBULATORY - MEDICINE [place] [facility] Mar 24, 2024 02:00 PM AMBULATORY - MEDICINE [place] [facility] Mar 31, 2024 09:30 AM AMBULATORY - REHAB MEDICIN E [place] [facility] [facility] Apr 13, 2024 01:30 PM AMBULATORY - MEDICINE [facility] Lab Results: +/- 30 days of the encounter This section includes the Chemistry and Hematology Lab Results on record with [place] for the patient. Radiology Reports and Pathology Reports are provided separately, in subsequent sections. Lab Results This section contains the Chemistry/Hematology Results that were resulted 30 days before or 30 daysafter the date of the Encounter. Date/Time Source Result Type Result - Unit Interpretation Reference Range Comment Oct 08, 2023 07:41 AM [facility] BASIC METABOLIC PANEL (fasting) Specimen Type: SERUM No comment entered. Ordering Provider: BYRON BARRON Report Released Date/Time: Oct 05, 2023 11:58 PM Reporting Lab: [facility] [address] [facility] [address] Performing Lab: [address] [address] UREA NITROGEN 16 mg/dL 7-25 GLUCOSE 102 mg/dL H 65-100 SODIUM 143 mmol/L 135-145 POTASSIUM 4.4 mmol/L 3.5-5.0 CHLORIDE 106 mmol/L 100-110 CO2 26 meq/L 20-30 CREATININE, Serum 1.01 mg/dL 0.50-1.40 eGFR(CKD-EPI 2020) 73 mL/min >60 Oct 08, 2023 07:41 AM [facility] CBC AND DIFF (AUTO) Specimen Type: BLOOD No comment entered. Ordering Provider: BYRON BARRON Report Released Date/Time: Oct 05, 2023 11:58 PM Reporting Lab: [facility] [address] [facility] [address] Performing Lab: [facility] [address] [facility] [address] WBC 7.99 10*3/uL 4.50-11.00 RBC 4.47 10*6/uL 4.23-5.66 HGB 14.6 g/dL 12.8-17 HCT 42.7 39.2-50.4 MCV 95.5 fL 82-99 MCHC 34.2 g/dL 30.8-35.1 PLT 126 10*3/uL L 140-360 RDW-CV 12.9 12.0-16.0 [place], Abs 0.79 10*3/uL 0.30-1.10 MCH 32.7 pg H 26.2-32.6 Neut % 54.5 43.7-75.8 Lymph % 33.3 14.0-42.3 [place] % 9.9 5.1-13.7 Eos % 1.4 0.4-6.8 Baso % 0.6 0.1-2.0 Neut, Abs 4.36 10*3/uL 2.20-7.60 Lymph, Abs 2.66 10*3/uL 1.00-3.20 Eos, Abs 0.11 10*3/uL 0.03-0.44 Baso, Abs 0.05 10*3/uL 0.01-0.13 Immature Gran % 0.3 0.0-0.7 Immature Gran, Abs 0.02 10*3/uL 0.00-0.06 Oct 08, 2023 07:41 AM [facility] LIVER FUNCTION Specimen Type: SERUM No comment entered. Ordering Provider: BYRON BARRON Report Released Date/Time: Oct 05, 2023 11:58 PM Reporting Lab: [facility] [address] [facility] [address] Performing Lab: [address] [address] PROTEIN,TOTAL 6.6 g/dL 6.0-8.3 ALBUMIN 3.8 g/dL 3.5-5.0 ALKALINE PHOSPHATASE 103 U/L 40-150 AST 33 U/L 5-34 ALT 29 U/L BILIRUBIN, TOTAL 0.7 mg/dL 0.2-1.2 Oct 08, 2023 07:41 AM [facility] LIPID PANEL FASTING Specimen Type: SERUM No comment entered. Ordering Provider: BYRON BARRON Report Released Date/Time: Oct 05, 2023 11:58 PM Reporting Lab: [address] [address] Performing Lab: [facility] [address] [facility] [address] CHOLESTEROL 133 mg/dL TRIGLYCERIDE 98 mg/dL 0-150 LDL calculated 70 mg/dL 0-129 CHOL/HDL 3.1 HDL CHOLESTEROL 43 mg/dL 40-60 Oct 08, 2023 07:41 AM [facility] TSH Specimen Type: SERUM No comment entered. Ordering Provider: BYRON BARRON Report Released Date/Time: Oct 05, 2023 11:58 PM Reporting Lab: [address] [address] Performing Lab: [address] [address] TSH 2.46 u[IU]/mL 0.35-5.00 Oct 08, 2023 07:41 AM [facility] URINALYSIS CLEAN CATCH Specimen Type: URINE Comment: If Glucose = >500 and Ketones are positive, please alert the Physician. Ordering Provider: BYRON BARRON Report Released Date/Time: Oct 05, 2023 11:58 PM Reporting Lab: [address] [address] Performing Lab: [address] [address] UA COLOR Light-Yellow Yellow UA APPEARANCE Clear [...] VA-TOBACCO FORMER USER [place] [facility] Tobacco Use History This section includes a history of the smoking, or tobacco-related health factors, that were collected on or before the date of the Encounter. The data comes from the [place] facility where the Encounter took place. Date/Time Smoking Status/Tobacco Use Comment F acility Oct 16, 2023 01:30 PM VA-TOBACCO QUIT 15 YRS OR MORE [place] [facility] Jul 04, 2022 11:00 AM VA-TOBACCO FORMER USER [place] [facility] [facility] Jul 04, 2022 11:00 AM VA-TOBACCO QUIT 15 YRS OR MORE [place] [facility] [facility] Jun 28, 2021 10:30 AM VA-TOBACCO FORMER USER [place] [facility] [facility] Jun 28, 2021 10:30 AM VA-TOBACCO QUIT 15 YRS OR MORE [place] [facility] [facility] May 26, 2020 08:00 AM VA-TOBACCO FORMER USER [place] [facility] [place] [facility] May 26, 2020 08:00 AM VA-TOBACCO QUIT 15 YRS OR MORE [place] [facility] May 23, 2018 11:21 AM VA-TOBACCO NEVER USED [place] [facility] Advance Directives: All historical and [...] November 16, 2020 ADVANCE DIRECTIVE BEATRICEBYRON Noa [facility] Encounter Notes: All associated encounter [...] required. Electronically Filed: 10/24/2023 by: SARANYA LOPEZ [facility]
--- OUTSIDE RECORDS SUMMARY | 2024-07-06 08:05 | XMS_ITS ---
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 Address [address] [place] [address] Care Team Providers Care Computing Tutor Name Role Phone JOSUE SIMMONS Primary Care [...] Dec 19, 2007 MEDICAR E SUPPLEM E [id number] [phone] NYDIA HUERTA UL PATIENT [employer] MEDICARE SUPPLEMEN YORDAN Dec 19, 2007 MEDICAR E SUPPLEM E [id number] [phone] NYDIA HUERTA UL PATIENT [employer] CO MEDICARE SUPPLEMEN YORDAN BANKE RS Dec 19, 2007 NONE [id number] NYDIA HUERTA UL PATIENT MEDICARE (WNR) MEDICARE (M) PART B Oct 13, 2006 PART B [id number] NYDIA HUERTA UL PATIENT MEDICARE (WNR) MEDICARE (M) PART B Oct 13, 2006 PART B [id number] [phone] NYDIA HUERTA UL PATIENT MEDICARE (WNR) MEDICARE (M) PART B Oct 13, 2006 PART B [id number] NYDIA HURETA PATIENT MEDICARE (WNR) MEDICARE (M) PART B Oct 13, 2006 PART B [id number] [phone] NYDIA HUERTA PATIENT MEDICARE (WNR) MEDICARE (M) PART A Sep 13, 2003 PART A [id number] [phone] NYDIA HUERTA PATIENT MEDICARE (WNR) MEDICARE (M) PART A Sep 13, 2003 PART A [id number] NYDIA HUERTA PATIENT MEDICARE (WNR) MEDICARE (M) PART A Sep 13, 2003 PART A [id number] NYDIA HUERTA PATIENT MEDICARE (WNR) MEDICARE (M) PART A Sep 13, 2003 PART A [id number] [phone] NYDIA HUERTA PATIENT Selected Encounter This [...] 05, 2023 10:00 AM AMBULATORY - NONE [place] [facility] Dec 30, 2023 11:00 AM AMBULATORY - REHAB MEDICIN E [place] [facility] [place] [facility] Jan 13, 2024 01:20 PM AMBULATORY - MEDICINE [place] [facility] Jan 21, 2024 08:00 AM AMBULATORY - MEDICINE [place] [facility] Feb 03, 2024 01:30 PM AMBULATORY - REHAB MEDICIN E [place] [facility] [place] [facility] Mar 05, 2024 08:00 AM AMBULATORY - MEDICINE [place] [facility] Mar 05, 2024 09:00 AM AMBULATORY - MEDICINE [place] [facility] Mar 06, 2024 08:00 AM AMBULATORY - MEDICINE [place] [facility] Mar 24, 2024 02:00 PM AMBULATORY - MEDICINE [place] [place] [facility] Mar 31, 2024 09:30 AM AMBULATORY - REHAB MEDICIN E [place] [facility] [place] [facility] Apr 13, 2024 01:30 PM AMBULATORY - MEDICINE [place] [facility] [place] [facility] Apr 28, 2024 02:00 PM AMBULATORY - MEDICINE [place] [place] [facility] May 05, 2024 02:00 PM AMBULATORY - REHAB MEDICIN E [place] [facility] [facility] Social History: Smoking Status (Most current) [...] PM VA-TOBACCO QUIT 15 YRS OR MORE [place] [facility] Tobacco Use History This section includes a history of the smoking, or tobacco-related health factors, that were collected on or before the date of the Encounter. The data comes from the [place] facility where the Encounter took place. Date/Time Smoking Status/Tobacco Use Comment F acility Oct 16, 2023 01:30 PM VA-TOBACCO QUIT 15 YRS OR MORE [place] [facility] [place] [facility] Jul 04, 2022 11:00 AM VA-TOBACCO FORMER USER [place] [facility] [place] [facility] Jul 04, 2022 11:00 AM VA-TOBACCO QUIT 15 YRS OR MORE [place] [facility] [place] [facility] Jun 28, 2021 10:30 AM VA-TOBACCO FORMER USER [place] [facility] [place] [facility] Jun 28, 2021 10:30 AM VA-TOBACCO QUIT 15 YRS OR MORE [place] [facility] [place] [facility] May 26, 2020 08:00 AM VA-TOBACCO FORMER USER [place] [facility] [place] [facility] May 26, 2020 08:00 AM VA-TOBACCO QUIT 15 YRS OR MORE [place] [facility] [place] [facility] May 23, 2018 11:21 AM [facility]CO [facility] Advance Directives: All historical and current Section [...] 19, 2022 ADVANCE DIRECTIVE JOCE CASTORENA [place] [facility] November 16, 2020 ADVANCE DIRECTIVE JOSUE SIMMONS [facility] Encounter Notes: All associated encounter notes This section contains the clinical notes associated to the Encounter. Date/Time Encounter Note(s) Provider Source November 28, 2023 10:14 AM NONVA CONSULT: LOCAL TITLE: MD/OUTSIDE CONSULT REPORT SUMMARY STANDARD TITLE: NONVA CONSULT DATE OF NOTE: NOVEMBER 28, 2023@10:14 ENTRY DATE: NOVEMBER 28, 2023@10:14:54 AUTHOR: OJSUE SIMMONS EXP COSIGNER: URGENCY: STATUS: COMPLETED 11-21-[address] Tucker [facility] Pulmonary Chief complaint: Asthma Plan: Continue present inhalers Follow-up 4 to 6 months /eleanor/ Josue Simmons MD Staff Physician Signed: 11/28/2023 10:15 [facility] SIMMONS [facility]
--- OUTSIDE RECORDS SUMMARY | 2024-07-06 08:06 | XMS_ITS | Encounter Summary ---
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 Address [address] [place] [address] Care Team Providers Care Spool Winder Name Role Phone BYRON BARRON Primary Care [...] Dec 19, 2007 MEDICAR E SUPPLEM E [id number] NYDIA HUERTA UL PATIENT [employer] MEDICARE SUPPLEMEN YORDAN Dec 19, 2007 MEDICAR E SUPPLEM E [id number] NYDIA HUERTA UL PATIENT [employer] [place] MED[place]ARE SUPPLEMEN YORDAN BANKE RS Dec 19, 2007 NONE [id number] [phone] NYDIA HUERTA UL PATIENT MEDICARE (WNR) MEDICARE (M) PART B Oct 13, 2006 PART B [id number] [facility] NYDIA HUERTA UL PATIENT MEDICARE (WNR) MEDICARE (M) PART B Oct 13, 2006 PART B [id number] NYDIA HUERTA UL PATIENT MEDICARE (WNR) MEDICARE (M) PART B Oct 13, 2006 PART B [id number] NYDIA HUERTA PATIENT MEDICARE (WNR) MEDICARE (M) PART B Oct 13, 2006 PART B [id number] [phone] NYDIA HUERTA PATIENT MEDICARE (WNR) MEDICARE (M) PART A Sep 13, 2003 PART A [id number] [phone] NYDIA HUERTA UL PATIENT MEDICARE (WNR) MEDICARE (M) PART A Sep 13, 2003 PART A [id number] [phone] NYDIA HURETA UL PATIENT MEDICARE (WNR) MEDICARE (M) PART A Sep 13, 2003 PART A [id number] NYDIA HUERTA PATIENT MEDICARE (WNR) MEDICARE (M) PART A Sep 13, 2003 PART A [id number] NYDIA HUERTA PATIENT Selected Encounter This [...] REHAB MEDICIN E [place] [facility] [place] [facility] Jan 13, 2024 01:20 PM AMBULATORY - MEDICINE [place] C [facility] [place] [facility] Jan 21, 2024 08:00 AM AMBULATORY - MEDICINE [facility] [place] [facility] Feb 03, 2024 01:30 PM AMBULATORY - REHAB MEDICIN E [place] [facility] [place] [facility] Mar 05, 2024 08:00 AM AMBULATORY - MEDICINE [place] [facility] [place] [facility] Mar 05, 2024 09:00 AM AMBULATORY - MEDICINE [place] C [facility] [place] [facility] Mar 06, 2024 08:00 AM AMBULATORY - MEDICINE [place] C [facility] [place] [facility] Mar 24, 2024 02:00 PM AMBULATORY - MEDICINE [place] C [facility] [place] [facility] Mar 31, 2024 09:30 AM AMBULATORY - REHAB MEDICIN E [place] [facility] [place] [facility] Apr 13, 2024 01:30 PM AMBULATORY - MEDICINE [place] [facility] [place] [facility] Apr 28, 2024 02:00 PM AMBULATORY - MEDICINE VA C [facility] [place] [facility] May 05, 2024 02:00 PM AMBULATORY - REHAB MEDICIN E [place] [facility] [place] [facility] Jun 16, 2024 01:15 PM AMBULATORY - MEDICINE [place] C [facility] [place] [facility] Social History: Smoking Status (Most current) and [...] VA-TOBACCO FORMER USER [place] [facility] [place] [facility] Tobacco Use History This section includes a history of the smoking, or tobacco-related health factors, that were collected on or before the date of the Encounter. The data comes from the [place] facility where the Encounter took place. Date/Time Smoking Status/Tobacco Use Comment F ac[place] Oct 16, 2023 01:30 PM VA-TOBACCO QUIT 15 YRS OR MORE [place] [facility] [place] [facility] Jul 04, 2022 11:00 AM VA-TOBACCO FORMER USER [place] [facility] [place] [facility] Jul 04, 2022 11:00 AM VA-TOBACCO QUIT 15 YRS OR MORE [place] [facility] [place] [facility] Jun 28, 2021 10:30 AM VA-TOBACCO FORMER USER VA [facility] [place] [facility] Jun 28, 2021 10:30 AM VA-TOBACCO QUIT 15 YRS OR MORE [place] [facility] [place] [facility] May 26, 2020 08:00 AM VA-TOBACCO FORMER USER [place] [facility] [place] [facility] May 26, 2020 08:00 AM VA-TOBACCO QUIT 15 YRS OR MORE [place] [facility] [place] [facility] May 23, 2018 11:21 AM VA-TOBACCO NEVER USED [facility] Advance Directives: All historical [...] DIRECTIVE JOCE CASTORENA [place] [facility] [place] [facility] November 16, 2020 ADVANCE DIRECTIVE BYRON BARRON [place] CNT [facility] Encounter Notes: All associated [...] By: 12/27/2023 09:56 /eleanor/ LEILA FERREIRA ADVANCED OUTBOARD MOTOR TESTER for JOCE CASTORENA === --- Original Document --- 12/27/23 CCC: CLINICAL TRIAGE: Patient Demographics Patient Name: ALYCIA HUERTA Patient Primary Address: [address] [place] [id number] Patient Primary Phone: [phone] Patient : 1940 Patient Age: 83 Current Location: home Call Back Number: verified Caller/Recipient Relation to Patient: Self Emergency Contact: TIMMY HUERTA Triage Summary Conducted triage/discussed symptoms Pain Score: 0 (No Pain) Utilized the Triage Tool: Yes Chief Complaint: Lump Under The Skin System WHEN: Within 2 Weeks Nurse's Recommendation / WHEN: Within 2 Weeks System WHERE: Clinic Nurse's Recommendation / WHERE: [facility] Patient Disposition Patient/Caregiver agrees to plan of care: Yes Patient WHERE: Clinic/[facility] Patient WHEN: Within 2 weeks Nursing Plan and Disposition Referred Patient for In-Person Appt Transferred patient to Sched & Admin-Apt No appt avail Advised Urgent Care Other Description: will go to local urgent care using [place] [facility] if no openings with PCP Nurse Summary Nurse Summary: is calling to state that he has had a left armpit growth that he noticed 2 days ago in the shower. States it is about the size of a marble and is not painful or tender. [place] has had a rash on his back [...] Phone Triage 27 Dec 2023 12:26:42 +0000 [facility] Demographics 83 y/o Male Results CC: [...] margin of eyelid /eleanor/ CLAY WEINER 1 [facility] RN Signed: 12/27/2023 08:41 Receipt Acknowledged By: [...] Addendum. STEPHANIE BANKS PA [facility] [place] [facility] Dec 27, 2023 08:41 AM ADDENDUM: LOCAL [...] Patient Name: ALYCIA HUERTA Patient Primary Address: [address] [place] [id number] Patient Primary Phone: [phone] Patient : 1940 Patient Age: 83 Current Location: home Call Back Number: verified Caller/Recipient Relation to Patient: Self Emergency Contact: TIMMY HUERTA Triage Summary Conducted triage/discussed symptoms Pain Score: 0 (No Pain) Utilized the Triage Tool: Yes Chief Complaint: Lump Under The Skin System WHEN: Within 2 Weeks Nurse's Recommendation / WHEN: Within 2 Weeks System WHERE: Clinic Nurse's Recommendation / WHERE: [facility] Patient Disposition Patient/Caregiver agrees to plan of care: Yes Patient WHERE: [facility] Patient WHEN: Within 2 weeks Nursing Plan and Disposition Referred Patient for In-Person Appt Transferred patient to Sched & Admin-Apt No appt avail Advised Urgent Care Other Description: will go to local urgent care using [place] [facility] if no openings with PCP Nurse Summary Nurse Summary: [place] is calling to state that he has had a left armpit growth that he noticed 2 days ago in the shower. States it is about the size of a marble and is not painful or tender. [place] has had a rash on his back recently with pimples and is using a new cream (triamcinolone cream) for the past 2 weeks and wonders if this could be the cause of the lump. No history of issues with lumps in the past. Clinical Contact Center Codes Clinic/Location: V1 [facility] PHONE [facility] RN TXCC Triage Complete Triage Date: 12/27/2023, 08:29 AM Triage Note: Phone Triage 27 Dec 2023 12:26:42 +0000 [facility] Demographics 83 y/o Male Results CC: [...] Care 12/27/2023 08:54 /es/ COBY MAHER LPN SALES AND PRODUCTION MANAGER 12/27/2023 ADDENDUM STATUS: COMPLETED Pat, please attempt to schedule to see pcp. /eleanor/ Stephanie Banks RN, BSN Primary Care Signed: 12/27/2023 09:04 Receipt Acknowledged By: 12/27/2023 09:56 /eleanor/ LEILA FERREIRA ADVANCED OUTBOARD MOTOR TESTER for JOCE CASTORENA 12/27/2023 ADDENDUM STATUS: COMPLETED AMSA LEFT A VOICEMAIL AND REQUESTED A CALL BACK [phone] EXT [phone]. /eleanor/ LEILA FERREIRA ADVANCED OUTBOARD MOTOR TESTER Signed: 12/27/2023 09:57 RADHA MEANS [facility] [place] [facility] Dec 27, 2023 08:41 AM RN PROGRESS NOTE: LOCAL TITLE: CCC: CLINICAL TRIAGE STANDARD TITLE: RN PROGRESS NOTE DATE OF NOTE: DEC 27, 2023@08:41:11 ENTRY DATE: DEC 27, 2023@08:41:11 AUTHOR: CLAY FIGUEROA EXP COSIGNER: URGENCY: STATUS: COMPLETED CCC: CLINICAL TRIAGE Has ADDENDA Patient Demographics Patient Name: ALYCIA HUERTA Patient Primary Address: [address] [place] [id number] Patient Primary Phone: [phone] Patient : 1940 Patient Age: 83 Current Location: home Call Back Number: verified Caller/Recipient Relation to Patient: Self Emergency Contact: TIMMY HUERTA Triage Summary Conducted triage/discussed symptoms Pain Score: 0 (No Pain) Utilized the Triage Tool: Yes Chief Complaint: Lump Under The Skin System WHEN: Within 2 Weeks Nurse's Recommendation / WHEN: Within 2 Weeks System WHERE: Clinic Nurse's Recommendation / WHERE: [facility] Patient Disposition Patient/Caregiver agrees to plan of care: Yes Patient WHERE: Clinic/[facility] Patient WHEN: Within 2 weeks Nursing Plan and Disposition Referred Patient for In-Person Appt Transferred patient to Sched & Admin-Apt No appt avail Advised Urgent Care Other Description: will go to local urgent care using [place] [facility] if no openings with PCP Nurse Summary Nurse Summary: is calling to state that he has had a left armpit growth that he noticed 2 days ago in the shower. States it is about the size of a marble and is not painful or tender. [place] has had a rash on his back [...] Phone Triage 27 Dec 2023 12:26:42 +0000 [facility] Demographics 83 y/o Male Results CC: Lump Under The Skin Software suggested: Within 2 Weeks Software suggested follow-up [facility] Values and Measures Duration of CC: [...] By: 12/27/2023 09:56 /eleanor/ LEILA FERREIRA ADVANCED OUTBOARD MOTOR TESTER for JOCE CASTORENA 12/27/2023 ADDENDUM STATUS: COMPLETED AMSA LEFT A VOICEMAIL AND REQUESTED A CALL BACK [phone] EXT [phone]. /eleanor/ LEILA FERREIRA ADVANCED OUTBOARD MOTOR TESTER Signed: 12/27/2023 09:57 CLAY FIGUEROA [facility]
--- OUTSIDE RECORDS SUMMARY | 2024-07-06 08:06 | XMS_ITS ---
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 Address [address] [place] [address] Care Team Providers Care Electrical Controls Assembler Name Role Phone BYRON BARRON Primary Care [...] Dec 19, 2007 MEDICAR E SUPPLEM E [id number] NYDIA HUERTA UL PATIENT [employer] MEDICARE SUPPLEMEN YORDAN Dec 19, 2007 MEDICAR E SUPPLEM E [id number] [phone] NYDIA HUERTA UL PATIENT [employer] [place] MED[place]ARE SUPPLEMEN YORDAN BANKE RS Dec 19, 2007 NONE [id number] NYDIA HUERTA UL PATIENT MEDICARE (WNR) MEDICARE (M) PART B Oct 13, 2006 PART B [id number] [facility] NYDIA HUERTA UL PATIENT MEDICARE (WNR) MEDICARE (M) PART B Oct 13, 2006 PART B [id number] [facility] [phone] NYDIA HUERTA UL PATIENT MEDICARE (WNR) MEDICARE (M) PART B Oct 13, 2006 PART B [id number] [phone] NYDIA HUERTA PATIENT MEDICARE (WNR) MEDICARE (M) PART B Oct 13, 2006 PART B [id number] [phone] NYDIA HUERTA PATIENT MEDICARE (WNR) MEDICARE (M) PART A Sep 13, 2003 PART A [id number] [phone] NYDIA HUERTA PATIENT MEDICARE (WNR) MEDICARE (M) PART A Sep 13, 2003 PART A [id number] [phone] NYDIA HUERTA PATIENT MEDICARE (WNR) MEDICARE (M) PART A Sep 13, 2003 PART A [id number] [phone] NYDIA HUERTA PATIENT MEDICARE (WNR) MEDICARE (M) PART A Sep 13, 2003 PART A [id number] NYDIA HUERTA PATIENT Selected Encounter This [...] REHAB MEDICIN E [place] [facility] [place] [facility] Jan 13, 2024 01:20 PM AMBULATORY - MEDICINE [place] [place] [facility] Jan 21, 2024 08:00 AM AMBULATORY - MEDICINE [place] [facility] [place] [facility] Feb 03, 2024 01:30 PM AMBULATORY - REHAB MEDICIN E [place] [facility] [place] [facility] Mar 05, 2024 08:00 AM AMBULATORY - MEDICINE [place] [facility] [place] [facility] Mar 05, 2024 09:00 AM AMBULATORY - MEDICINE [place] [facility] [place] [facility] Mar 06, 2024 08:00 AM AMBULATORY - MEDICINE [place] [facility] [place] [facility] Mar 24, 2024 02:00 PM AMBULATORY - MEDICINE [place] [facility] [place] [facility] Mar 31, 2024 09:30 AM AMBULATORY - REHAB MEDICIN E [place] [facility] [place] [facility] Apr 13, 2024 01:30 PM AMBULATORY - MEDICINE [place] [facility] [place] [facility] Apr 28, 2024 02:00 PM AMBULATORY - MEDICINE [place] [facility] [place] [facility] May 05, 2024 02:00 PM AMBULATORY - REHAB MEDICIN E [place] [facility] [place] [facility] Social History: Smoking Status (Most [...] VA-TOBACCO FORMER USER [place] [facility] [place] [facility] Tobacco Use History This section includes a history of the smoking, or tobacco-related health factors, that were collected on or before the date of the Encounter. The data comes from the [place] facility where the Encounter took place. Date/Time Smoking Status/Tobacco Use Comment F acility Oct 16, 2023 01:30 PM VA-TOBACCO QUIT 15 YRS OR MORE [place] [facility] [place] [facility] Jul 04, 2022 11:00 AM VA-TOBACCO FORMER USER [place] [facility] [place] [facility] Jul 04, 2022 11:00 AM VA-TOBACCO QUIT 15 YRS OR MORE [place] [facility] [place] [facility] Jun 28, 2021 10:30 AM VA-TOBACCO FORMER USER [place] [facility] [place] [facility] Jun 28, 2021 10:30 AM VA-TOBACCO QUIT 15 YRS OR MORE [place] [facility] [place] [facility] May 26, 2020 08:00 AM VA-TOBACCO FORMER USER [place] [facility] [place] [facility] May 26, 2020 08:00 AM VA-TOBACCO QUIT 15 YRS OR MORE [place] [facility] [place] [facility] May 23, 2018 11:21 AM VA-TOBACCO NEVER USED [facility] Advance Directives: All historical and current [...] Feb 19, 2022 ADVANCE DIRECTIVE JOCE CASTORENA [place] [facility] November 16, 2020 ADVANCE DIRECTIVE [facility] Encounter Notes: All associated encounter notes [...] required. Electronically Filed: 12/05/2023 by: IRENA BAINS [facility]
--- OUTSIDE RECORDS SUMMARY | 2024-07-06 08:06 | XMS_ITS | Encounter Summary ---
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 Organization [place] Address [address] [place] [address] Care Team Providers Care Tea And Spice Supervisor Name Role Phone BYRON BARRON Primary [...] Dec 19, 2007 MEDICAR E SUPPLEM E [id number] [phone] NYDIA HUERTA UL PATIENT [employer] MEDICARE SUPPLEMEN YORDAN Dec 19, 2007 MEDICAR E SUPPLEM E [id number] NYDIA HUERTA UL PATIENT [employer] [place] MEDICARE SUPPLEMEN YORDAN BANKE RS Dec 19, 2007 NONE [id number] NYDIA HUERTA UL PATIENT MEDICARE (WNR) MEDICARE (M) PART B Oct 13, 2006 PART B [id number] [facility] [phone] NYDIA HUERTA UL PATIENT MEDICARE (WNR) MEDICARE (M) PART B Oct 13, 2006 PART B [id number] [facility] NYDIA HUERTA UL PATIENT MEDICARE (WNR) MEDICARE (M) PART B Oct 13, 2006 PART B [id number] NYDIA HUERTA PATIENT MEDICARE (WNR) MEDICARE (M) PART B Oct 13, 2006 PART B [id number] [phone] NYDIA HUERTA PATIENT MEDICARE (WNR) MEDICARE (M) PART A Sep 13, 2003 PART A [id number] NYDIA HUERTA PATIENT MEDICARE (WNR) MEDICARE (M) PART A Sep 13, 2003 PART A [id number] NYDIA HUERTA PATIENT MEDICARE (WNR) MEDICARE (M) PART A Sep 13, 2003 PART A [id number] NYDIA HUERTA PATIENT MEDICARE (WNR) MEDICARE (M) PART A Sep 13, 2003 PART A [id number] NYDIA HUERTA PATIENT Selected Encounter This [...] 05, 2023 10:00 AM AMBULATORY - NONE [place] [facility] [place] [facility] Dec 30, 2023 11:00 AM AMBULATORY - REHAB MEDICIN E [place] [facility] [place] [facility] Jan 13, 2024 01:20 PM AMBULATORY - MEDICINE [place] [facility] Jan 21, 2024 08:00 AM AMBULATORY - MEDICINE [place] [facility] Feb 03, 2024 01:30 PM AMBULATORY - REHAB MEDICIN E [place] [facility] [place] [facility] Mar 05, 2024 08:00 AM AMBULATORY - MEDICINE [place] [facility] [place] [facility] Mar 05, 2024 09:00 AM AMBULATORY - MEDICINE [place] [place] [facility] Mar 06, 2024 08:00 AM AMBULATORY - MEDICINE [place] [facility] [place] [facility] Mar 24, 2024 02:00 PM AMBULATORY - MEDICINE [place] [place] [facility] Mar 31, 2024 09:30 AM AMBULATORY - REHAB MEDICIN E [place] [facility] [place] [facility] Apr 13, 2024 01:30 PM AMBULATORY - MEDICINE [place] [place] [facility] Apr 28, 2024 02:00 PM AMBULATORY - MEDICINE [place] [place] [facility] May 05, 2024 02:00 PM AMBULATORY - REHAB MEDICIN E [place] [facility] [place] [facility] Social History: Smoking Status (Most [...] [facility] [place] [facility] Tobacco Use History This section [...] [facility] [place] [facility] Jul 04, 2022 11:00 AM VA-TOBACCO FORMER USER [place] [facility] [place] [facility] Jul 04, 2022 11:00 AM VA-TOBACCO QUIT 15 YRS OR MORE [place] [facility] [place] [facility] Jun 28, 2021 10:30 AM VA-TOBACCO FORMER USER [place] [facility] [place] [facility] Jun 28, 2021 10:30 AM VA-TOBACCO QUIT [facility] OR [facility] May 26, 2020 08:00 AM [facility]BACCO [facility] May 26, 2020 08:00 AM VA-TOBACCO QUIT 15 YRS OR [facility] May 23, 2018 11:21 AM VA-TOBACCO NEVER USED [facility] Advance Directives: All historical and current [...] Feb 19, 2022 ADVANCE DIRECTIVE JOCE CASTORENA [facility] November 16, 2020 ADVANCE DIRECTIVE BYRON BARRON [facility] Encounter Notes: All associated encounter notes This section contains the clinical notes associated to the Encounter. Date/Time Encounter Note(s) Provider Source November 25, 2023 12:00 AM NONVA NOTE: LOCAL TITLE: COMMUNITY CARE-URGENT CARE RECORD STANDARD TITLE: NONVA NOTE DATE OF NOTE: NOVEMBER 25, 2023 ENTRY DATE: DECEMBER 05, 2023@14:08:52 AUTHOR: HNAS BEAUCHAMP EXP COSIGNER: URGENCY: STATUS: COMPLETED VistA Imaging - Scanned Document SCANNED DOCUMENT SIGNATURE NOT REQUIRED Electronically Filed: 12/05/2023 by: HANS BEAUCHAMP PACKAGE CAR DRIVER HANS BEAUCHAMP [facility]
--- OUTSIDE RECORDS SUMMARY | 2024-07-06 08:06 | XMS_ITS ---
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 Organization [place] Address [address] [place] [id number] Care Team Providers Care Rolling Down Machine Operator Name Role Phone JOSUE BARRON Primary [...] Dec 19, 2007 MEDICAR E SUPPLEM E [id number] NYDIA HUERTA UL PATIENT [employer] MEDICARE SUPPLEMEN YORDAN Dec 19, 2007 MEDICAR E SUPPLEM E [id number] NYDIA HUERTA UL PATIENT [employer] [place] MEDICARE SUPPLEMEN YORDAN BANKE RS Dec 19, 2007 NONE [id number] NYDIA HUERTA UL PATIENT MEDICARE (WNR) MEDICARE (M) PART B Oct 13, 2006 PART B [id number] NYDIA HUERTA UL PATIENT MEDICARE (WNR) MEDICARE (M) PART B Oct 13, 2006 PART B [id number] [phone] NYDIA HUERTA UL PATIENT MEDICARE (WNR) MEDICARE (M) PART B Oct 13, 2006 PART B [id number] [phone] NYDIA HUERTA PATIENT MEDICARE (WNR) MEDICARE (M) PART B Oct 13, 2006 PART B [id number] [phone] NYDIA HUERTA PATIENT MEDICARE (WNR) MEDICARE (M) PART A Sep 13, 2003 PART A [id number] [phone] NYDIA HUERTA PATIENT MEDICARE (WNR) MEDICARE (M) PART A Sep 13, 2003 PART A [id number] NYDIA HUERTA PATIENT MEDICARE (WNR) MEDICARE (M) PART A Sep 13, 2003 PART A [id number] [phone] NYDIA HUERTA PATIENT MEDICARE (WNR) MEDICARE (M) PART A Sep 13, 2003 PART A [id number] NYDIA HUERTA PATIENT Selected Encounter This [...] MEDICIN E [facility] [place] [facility] Jan 13, 2024 01:20 PM AMBULATORY - MEDICINE [facility] [place] [facility] Jan 21, 2024 08:00 AM AMBULATORY - MEDICINE [facility] [place] [facility] Feb 03, 2024 01:30 PM AMBULATORY - REHAB MEDICIN E [facility] [place] [facility] Mar 05, 2024 08:00 AM AMBULATORY - MEDICINE [facility] [place] [facility] Mar 05, 2024 09:00 AM AMBULATORY - MEDICINE [facility] [place] [facility] Mar 06, 2024 08:00 AM AMBULATORY - MEDICINE [facility] [place] [facility] Mar 24, 2024 02:00 PM AMBULATORY - MEDICINE [facility] [place] [facility] Mar 31, 2024 09:30 AM AMBULATORY - REHAB MEDICIN E [facility] [place] [facility] Apr 13, 2024 01:30 PM AMBULATORY - MEDICINE [facility] [place] [facility] Apr 28, 2024 02:00 PM AMBULATORY - MEDICINE [facility] [place] [facility] May 05, 2024 02:00 PM AMBULATORY - REHAB MEDICIN E [facility] [place] [facility] Social History: Smoking Status (Most current) [...] 16, 2023 01:30 PM VA-TOBACCO FORMER USER [facility] [place] [facility] Tobacco Use History This section includes a history of the smoking, or tobacco-related health factors, that were collected on or before the date of the Encounter. The data comes from the [place] facility where the Encounter took place. Date/Time Smoking Status/Tobacco Use Comment F acility Oct 16, 2023 01:30 PM VA-TOBACCO QUIT 15 YRS OR MORE [facility] [place] [facility] Jul 04, 2022 11:00 AM VA-TOBACCO FORMER USER [facility] [place] [facility] Jul 04, 2022 11:00 AM VA-TOBACCO QUIT 15 YRS OR MORE [facility] [place] [facility] Jun 28, 2021 10:30 AM VA-TOBACCO FORMER USER [facility] [place] [facility] Jun 28, 2021 10:30 AM VA-TOBACCO QUIT 15 YRS OR MORE [facility] [place] [facility] May 26, 2020 08:00 AM [facility] May 26, 2020 08:00 AM VA-TOBACCO QUIT 15 YRS OR MORE [facility] May 23, 2018 11:21 AM VA-TOBACCO NEVER USED [facility] Advance Directives: All historical and current [...] Feb 19, 2022 ADVANCE DIRECTIVE [facility]OCE [facility]STORENA [facility] November 16, 2020 ADVANCE DIRECTIVE JOSUE BARRON [facility] Encounter Notes: All associated encounter notes This section contains the clinical notes associated to the Encounter. Date/Time Encounter Note(s) Provider Source December 05, 2023 12:06 PM NONVA CONSULT: LOCAL TITLE: MD/OUTSIDE CONSULT REPORT SUMMARY STANDARD TITLE: NONVA CONSULT DATE OF NOTE: DECEMBER 05, 2023@12:06 ENTRY DATE: DECEMBER 05, 2023@12:06:15 AUTHOR: JOSUE BARRON EXP COSIGNER: URGENCY: STATUS: COMPLETED 11-25-23 [facility] walk-in clinic in [place] Chief complaint: Right ear cerumen blockage Irrigated Discharged home // Josue Latham. MD Iris Staff Physician Signed: 12/05/2023 12:06 [facility]
--- OUTSIDE RECORDS SUMMARY | 2024-07-06 08:06 | XMS_ITS | Encounter Summary ---
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 Organization [place] Address [address] [place] [address] Care Team Providers Care Linotyper Name Role Phone BYRON BARRON Primary Care [...] Dec 19, 2007 MEDICAR E SUPPLEM E [id number] NYDIA HUERTA UL PATIENT [employer] MEDICARE SUPPLEMEN YORDAN Dec 19, 2007 MEDICAR E SUPPLEM E [id number] NYDIA HUERTA UL PATIENT [employer] [place] MEDICARE SUPPLEMEN YORDAN BANKE RS Dec 19, 2007 NONE [id number] NYDIA HUERTA UL PATIENT MEDICARE (WNR) MEDICARE (M) PART B Oct 13, 2006 PART B [id number] NYDIA HUERTA UL PATIENT MEDICARE (WNR) MEDICARE (M) PART B Oct 13, 2006 PART B [id number] DOM[place] UL PATIENT MEDICARE (WNR) MEDICARE (M) PART B Oct 13, 2006 PART B [id number] NYDIA HUERTA PATIENT MEDICARE (WNR) MEDICARE (M) PART B Oct 13, 2006 PART B [id number] [phone] NYDIA HUERTA PATIENT MEDICARE (WNR) MEDICARE (M) PART A Sep 13, 2003 PART A [id number] NYDIA HUERTA PATIENT MEDICARE (WNR) MEDICARE (M) PART A Sep 13, 2003 PART A [id number] NYDIA HUERTA PATIENT MEDICARE (WNR) MEDICARE (M) PART A Sep 13, 2003 PART A [id number] NYDIA HUERTA PATIENT MEDICARE (WNR) MEDICARE (M) PART A Sep 13, 2003 PART A [id number] NYDIA HUERTA PATIENT Selected Encounter This section includes the information on record at [place] for the Encounter. Date/Time Encounter Type Encounter Description Reason Pro vider Source Dec 30, 2023 04:17 PM Outpatient Encounter OTOLARYNGOLOGY/ENT IHE Encounter Template Text not used by [place] Plan of Treatment: Future Appointments (+ 6 [...] 13, 2024 01:20 PM AMBULATORY - MEDICINE [place] [facility] [place] [facility] Jan 21, 2024 08:00 AM AMBULATORY - MEDICINE [facility] [place] [facility] Feb 03, 2024 01:30 PM AMBULATORY - REHAB MEDICIN E [facility] [place] [facility] Mar 05, 2024 08:00 AM AMBULATORY - MEDICINE [place] [facility] [place] [facility] Mar 05, 2024 09:00 AM AMBULATORY - MEDICINE [facility] [place] [facility] Mar 06, 2024 08:00 AM AMBULATORY - MEDICINE [facility] [place] [facility] Mar 24, 2024 02:00 PM AMBULATORY - MEDICINE [facility] [place] [facility] Mar 31, 2024 09:30 AM AMBULATORY - REHAB MEDICIN E [facility] [place] [facility] Apr 13, 2024 01:30 PM AMBULATORY - MEDICINE [facility] [place] [facility] Apr 28, 2024 02:00 PM AMBULATORY - MEDICINE [facility] [place] [facility] May 05, 2024 02:00 PM AMBULATORY - REHAB MEDICIN E [facility] [place] [facility] Jun 16, 2024 01:15 PM AMBULATORY - MEDICINE [place] [facility] [place] [facility] Social History: Smoking Status (Most current) [...] VA-TOBACCO FORMER USER [place] [facility] [place] [facility] Tobacco Use History This section includes a history of the smoking, or tobacco-related health factors, that were collected on or before the date of the Encounter. The data comes from the [place] facility where the Encounter took place. Date/Time Smoking Status/Tobacco Use Comment F acility Oct 16, 2023 01:30 PM VA-TOBACCO QUIT 15 YRS OR MORE [facility] [place] [facility] Jul 04, 2022 11:00 AM VA-TOBACCO FORMER USER [facility] [place] [facility] Jul 04, 2022 11:00 AM VA-TOBACCO QUIT 15 YRS OR MORE [facility] [place] [facility] Jun 28, 2021 10:30 AM VA-TOBACCO FORMER USER [facility] [place] [facility] Jun 28, 2021 10:30 AM VA-TOBACCO QUIT 15 YRS OR MORE [facility] [place] [facility] May 26, 2020 08:00 AM VA-TOBACCO FORMER USER [place] [facility] [place] [place] [facility] May 26, 2020 08:00 AM VA-TOBACCO QUIT 15 YRS OR MORE [facility] May 23, 2018 11:21 AM VA-TOBACCO NEVER USED [facility] Advance Directives: All historical and [...] Feb 19, 2022 ADVANCE DIRECTIVE JOCE CASTORENA [facility] November 16, 2020 ADVANCE DIRECTIVE BYRON BARRON [facility] Encounter Notes: All associated encounter notes This section contains the clinical notes associated to the Encounter. Date/Time Encounter Note(s) Provider Source Dec 30, 2023 04:17 PM LETTERS: LOCAL TITLE: PATIENT LETTER (B) STANDARD TITLE: LETTERS DATE OF NOTE: DEC 30, 2023@16:17 ENTRY DATE: DEC 30, 2023@16:17:56 AUTHOR: CHEN WALKER EXP COSIGNER: URGENCY: STATUS: COMPLETED DEC 30, 2023 ALYCIA HUERTA [address], [place] [address] Dear ALYCIA HUERTA We would like to assist you in scheduling a OTOLARYNGOLOGY appointment at the CO. We have been unable to reach you [...] Your health is important to us. Sincerely, [facility] [address] [place] [address] [place] [address] ext. [phone] [place] [facility] 25 [facility] [address] [place] [address] [place] [address] [phone] [place] [facility] [address] [address] [place] [address] ext. [phone] [facility] [address] [place] [address] ext. [phone] CHEN WALKER [facility]
--- OUTSIDE RECORDS SUMMARY | 2024-07-06 08:06 | XMS_ITS | Encounter Summary ---
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 Address [address] [place] [address] Care Team Providers Care Scoop Operator Name Role Phone BYRON SIMMONS Primary Care [...] Dec 19, 2007 MEDICAR E SUPPLEM E [id number] [phone] NYDIA HUERTA UL PATIENT [employer] MEDICARE SUPPLEMEN YORDAN Dec 19, 2007 MEDICAR E SUPPLEM E [id number] [phone] NYDIA HUERTA UL PATIENT [employer] [place] MEDICARE SUPPLEMEN YORDAN BANKE RS Dec 19, 2007 NONE [id number] NYDIA HUERTA UL PATIENT MEDICARE (WNR) MEDICARE (M) PART B Oct 13, 2006 PART B [id number] NYDIA HUERTA UL PATIENT MEDICARE (WNR) MEDICARE (M) PART B Oct 13, 2006 PART B [id number] DOM[place] UL PATIENT MEDICARE (WNR) MEDICARE (M) PART B Oct 13, 2006 PART B [id number] [phone] NYDIA HUERTA PATIENT MEDICARE (WNR) MEDICARE (M) PART B Oct 13, 2006 PART B [id number] [phone] NYDIA HUERTA PATIENT MEDICARE (WNR) MEDICARE (M) PART A Sep 13, 2003 PART A [id number] NYDIA HUERTA PATIENT MEDICARE (WNR) MEDICARE (M) PART A Sep 13, 2003 PART A [id number] NYDIA HUERTA PATIENT MEDICARE (WNR) MEDICARE (M) PART A Sep 13, 2003 PART A [id number] [phone] NYDIA HUERTA PATIENT MEDICARE (WNR) MEDICARE (M) PART A Sep 13, 2003 PART A [id number] NYDIA HUERTA PATIENT Selected Encounter This section includes the information on record at [place] for the Encounter. Date/Time Encounter Type Encounter Description Reason Pro vider Source Jun 25, 2024 01:06 PM Outpatient Encounter ADMIN PAT ACTIVTIES (MASNONCT) IHE Encounter Template Text not used by [place] Plan of Treatment: Future Appointments (+ 6 months) and Future Tests (+/- 45 days) The Plan of Treatment section includes future care activities for the patient from all [place] treatmentfacilities. This section includes future appointments and future orders which are active, pending or scheduled. Future Appointments This section includes appointments that were scheduled to occur 6 months from the date of the Encounter, up to a maximum of 20 appointments. The data comes from all [place] treatment facilities. Appointment Date/Time Appointment Type Appointme nt Facility Name Jul 20, 2024 08:00 AM AMBULATORY - MEDICINE [place] [facility] [facility] Aug 14, 2024 03:00 PM AMBULATORY - MEDICINE [place] [facility] [place] [facility] Oct 07, 2024 09:00 AM AMBULATORY - MEDICINE [place] [facility] [place] [facility] Oct 28, 2024 08:00 AM AMBULATORY - MEDICINE [facility] [place] [facility] Active, Pending, and Scheduled Orders This section includes a listing of several types of active, pending, and scheduled orders, including clinic medications orders, diagnostic test orders, procedure orders and consult orders; where the start date of the order is 45 days before the date of the Encounter or 45 days after the date of theEncounter. The data comes from all [place] treatment facilities. Test Date/Time Test Type Test Details Facility Name Jun 06, 2024 04:26 PM Consult Order [facility] Cons Professor Of Rhetoric's Choice [place] [facility] [place] [facility] Jun 26, 2024 04:42 PM Consult Order [facility] NON-SKILLED HOME HEALTH AIDE Cons Professor Of Rhetoric's Choice [place] [facility] [place] [facility] Social History: Smoking Status (Most current) and Tobacco Use (All prior to encounter date) This section includes the most current, and the historical, smoking and tobacco- related health factors from the [place] facility where the Encounter took place. Current Smoking Status This section includes the most current smoking, or tobacco-related health factor, from the [place] facility where the Encounter took place. Date/Time Current Smoking Status Comment Darling ity Oct 16, 2023 01:30 PM VA-TOBACCO FORMER USER [place] [facility] [place] [facility] Tobacco Use History This section includes a history of the smoking, or tobacco-related health factors, that were collected on or before the date of the Encounter. The data comes from the [place] facility where the Encounter took place. Date/Time Smoking Status/Tobacco Use Comment F acgary Oct 16, 2023 01:30 PM VA-TOBACCO QUIT 15 YRS OR MORE [place] [facility] [place] [facility] Jul 04, 2022 11:00 AM VA-TOBACCO FORMER USER [facility] [place] [facility] Jul 04, 2022 11:00 AM VA-TOBACCO QUIT 15 YRS OR MORE [place] [facility] [place] [facility] Jun 28, 2021 10:30 AM VA-TOBACCO FORMER USER [place] [facility] [place] [facility] Jun 28, 2021 10:30 AM VA-TOBACCO QUIT 15 YRS OR MORE [facility] [place] [facility] May 26, 2020 08:00 AM VA-TOBACCO FORMER USER [place] [facility] [place] [facility] May 26, 2020 08:00 AM VA-TOBACCO QUIT 15 YRS OR MORE [facility] May 23, 2018 11:21 AM VA-TOBACCO NEVER USED [facility] Advance Directives: All historical and current Section Date Range: From patient's date of to the date document was created. This section includes ALL of a patient's completed or amended [place] Advance and Rescinded Directives. The entries below indicate that a directive exists for the patient, but an actual copy is not included with this document. The data comes from all [place] facilities. Date Advance Directives Provider Source Feb 19, 2022 ADVANCE DIRECTIVE JOCE CASTORENA [facility] November 16, 2020 ADVANCE DIRECTIVE BYRON SIMMONS [facility] Encounter Notes: All associated encounter notes This section contains the clinical notes associated to the Encounter. Date/Time Encounter Note(s) Provider Source Jun 25, 2024 01:06 PM MEDICATION MGT NOT E: LOCAL TITLE: MEDICATION RENEWAL STANDARD TITLE: MEDICATION MGT NOTE DATE OF NOTE: JUN 25, 2024@13:06 ENTRY DATE: JUN 25, 2024@13:06:53 AUTHOR: XU DEE EXP COSIGNER: URGENCY: STATUS: COMPLETED MEDICATION RENEWAL Has ADDENDA Helkiersten we have a requesting medicaton renewal for mailing please please renew if appropriate Active Outpatient Medications (including Supplies): Active Outpatient Medications Status ====== 1) 1 [id number]$ ATORVASTATIN CALCIUM 80MG TAB 90 E> 06-19 1 90 3 [id number]$ EZETIMIBE 10MG TAB 90 E> 06-19 0 90 7 [id number]$ METOPROLOL SUCCINATE 50MG SA TAB 90 E> 06-19 0 90 /es/ XU DEE WALLET ASSEMBLER Signed: 06/25/2024 15:35 Receipt Acknowledged By: 06/25/2024 15:42 /es/ Byron Simmons MD Staff Physician 06/25/2024 ADDENDUM STATUS: COMPLETED Done. /eleanor/ Byron Simmons MD Staff Physician Signed: 06/25/2024 15:41 XU DEE [facility]
--- OUTSIDE RECORDS SUMMARY | 2024-07-06 08:06 | XMS_ITS | Encounter Summary ---
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 Organization [place] Address [address] [place] [address] Care Team Providers Care Retail Chain Store Area Supervisor Name Role Phone BYRON BARRON Primary [...] Dec 19, 2007 MEDICAR E SUPPLEM E [id number] [phone] NYDIA HUERTA UL PATIENT [employer] MEDICARE SUPPLEMEN YORDAN Dec 19, 2007 MEDICAR E SUPPLEM E [id number] [phone] NYDIA HUERTA UL PATIENT [employer] [place] MEDICARE SUPPLEMEN YORDAN BANKE RS Dec 19, 2007 NONE [id number] NYDIA HUERTA UL PATIENT MEDICARE (WNR) MEDICARE (M) PART B Oct 13, 2006 PART B [id number] NYDIA HUERTA UL PATIENT MEDICARE (WNR) MEDICARE (M) PART B Oct 13, 2006 PART B [id number] DOM[place] UL PATIENT MEDICARE (WNR) MEDICARE (M) PART B Oct 13, 2006 PART B [id number] NYIDA HUERTA PATIENT MEDICARE (WNR) MEDICARE (M) PART B Oct 13, 2006 PART B [id number] NYDIA HUERTA PATIENT MEDICARE (WNR) MEDICARE (M) PART A Sep 13, 2003 PART A [id number] [facility] NYDIA HUERTA PATIENT MEDICARE (WNR) MEDICARE (M) PART A Sep 13, 2003 PART A [id number] NYDIA HUERTA PATIENT MEDICARE (WNR) MEDICARE (M) PART A Sep 13, 2003 PART A [id number] NYDIA HUERTA PATIENT MEDICARE (WNR) MEDICARE (M) PART A Sep 13, 2003 PART A [id number] [phone] NYDIA HUERTA PATIENT Selected Encounter This [...] AMBULATORY - NONE [place] [facility] [place] [place] [facility] Dec 30, 2023 11:00 AM AMBULATORY - REHAB MEDICIN E [place] [facility] [place] [facility] Jan 13, 2024 01:20 PM AMBULATORY - MEDICINE [place] C [facility] [place] [facility] Jan 21, 2024 08:00 AM AMBULATORY - MEDICINE [place] C [facility] [place] [facility] Feb 03, 2024 01:30 PM AMBULATORY - REHAB MEDICIN E [facility] [place] [facility] Mar 05, 2024 08:00 AM AMBULATORY - MEDICINE [place] [facility] [place] [facility] Mar 05, 2024 09:00 AM AMBULATORY - MEDICINE [place] [facility] [place] [place] [facility] Mar 06, 2024 08:00 AM AMBULATORY - MEDICINE [place] [facility] [place] [facility] Mar 24, 2024 02:00 PM AMBULATORY - MEDICINE [place] [facility] [place] [place] [facility] Mar 31, 2024 09:30 AM AMBULATORY - REHAB MEDICIN E [facility] [place] [facility] Apr 13, 2024 01:30 PM AMBULATORY - MEDICINE [place] [facility] [place] [facility] Apr 28, 2024 02:00 PM AMBULATORY - MEDICINE [place] [facility] [place] [place] [facility] May 05, 2024 02:00 PM AMBULATORY - REHAB MEDICIN E [place] [facility] [place] [facility] Social History: Smoking Status (Most current) [...] VA-TOBACCO FORMER USER [place] [facility] [place] [facility] Tobacco Use History This section includes a history of the smoking, or tobacco-related health factors, that were collected on or before the date of the Encounter. The data comes from the [place] facility where the Encounter took place. Date/Time Smoking Status/Tobacco Use Comment F acility Oct 16, 2023 01:30 PM VA-TOBACCO QUIT 15 YRS OR MORE [facility] [place] [facility] Jul 04, 2022 11:00 AM VA-TOBACCO FORMER USER [place] [facility] [place] [facility] Jul 04, 2022 11:00 AM VA-TOBACCO QUIT 15 YRS OR MORE [facility] [place] [facility] Jun 28, 2021 10:30 AM VA-TOBACCO FORMER USER [place] [facility] [facility] Jun 28, 2021 10:30 AM VA-TOBACCO QUIT 15 YRS OR MORE [place] [facility] [place] [facility] May 26, 2020 08:00 AM VA-TOBACCO FORMER USER ME [facility] [place] [facility] May 26, 2020 08:00 AM VA-TOBACCO QUIT 15 YRS OR MORE [place] [facility] [place] [facility] May 23, 2018 11:21 AM VA-TOBACCO NEVER [facility]ED [facility] Advance Directives: All historical and current [...] 2022 ADVANCE DIRECTIVE JOCE CASTORENA [facility] November 16, 2020 ADVANCE DIRECTIVE BYRON BARRON [facility] Encounter Notes: All associated encounter notes [...] Patient Name: ALYCIA HUERTA Patient Primary Phone: [phone] Patient Primary Address: [address] [place] [id number] Patient : 1940 Patient Age: 83 Call Back Number: [phone] Caller/Recipient Relation to Patient: Self Administrative Administrative Note Reason: Other Administrative Note Comments: pt is asking for a call in ref to hearing aides pt states went to o/s provider for hearing aides and was told to see primary care provider /eleanor/ CECILLE WEINER [facility] Signed: 11/29/2023 09:29 Receipt Acknowledged By: 12/02/2023 09:12 /eleanor/ Stephanie Banks RN, BSN Primary Care 12/02/2023 11:48 /es/ COBY MAHER LPN LPN 12/02/2023 ADDENDUM STATUS: COMPLETED spoke with , provided him with number for audiology to sonia carlt. [place] thanked me. /eleanor/ Stephanie Banks RN, BSN Primary Care Signed: 12/02/2023 09:12 CECILLE ORTIZ [facility]
--- OUTSIDE RECORDS SUMMARY | 2024-07-06 08:06 | XMS_ITS ---
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 Address [address] [place] [address] Care Team Providers Care Piling Setter Name Role Phone JOSUE SIMMONS Primary Care [...] Dec 19, 2007 MEDICAR E SUPPLEM E [id number] [phone] NYDIA HUERTA UL PATIENT [employer] MEDICARE SUPPLEMEN YORDAN Dec 19, 2007 MEDICAR E SUPPLEM E [id number] [phone] NYDIA HUERTA UL PATIENT [employer] [place] MED[place] SUPPLEMEN YORDAN BANKE RS Dec 19, 2007 NONE [id number] NYDIA HUERTA UL PATIENT MEDICARE (WNR) MEDICARE (M) PART B Oct 13, 2006 PART B [id number] [facility] NYIDA HUERTA UL PATIENT MEDICARE (WNR) MEDICARE (M) PART B Oct 13, 2006 PART B [id number] [facility] NYDIA HUERTA UL PATIENT MEDICARE (WNR) MEDICARE (M) PART B Oct 13, 2006 PART B [id number] NYDIA HUERTA PATIENT MEDICARE (WNR) MEDICARE (M) PART B Oct 13, 2006 PART B [id number] NYDIA HUERTA PATIENT MEDICARE (WNR) MEDICARE (M) PART A Sep 13, 2003 PART A [id number] [phone] NYDIA HUERTA PATIENT MEDICARE (WNR) MEDICARE (M) PART A Sep 13, 2003 PART A [id number] NYDIA HUERTA PATIENT MEDICARE (WNR) MEDICARE (M) PART A Sep 13, 2003 PART A [id number] NYDIA HUERTA PATIENT MEDICARE (WNR) MEDICARE (M) PART A Sep 13, 2003 PART A [id number] NYDIA HUERTA PATIENT Selected Encounter This section includes the information on record at [place] for the Encounter. Date/Time Encounter Type Encounter Description Reason Pro vider Source Jul 02, 2024 04:35 PM Outpatient Encounter PRIMARY CARE/MEDICINE IHE Encounter [...] - MEDICINE [place] [facility] [facility] Aug 14, 2024 03:00 PM AMBULATORY - MEDICINE [place] [facility] [place] [facility] Oct 07, 2024 09:00 AM AMBULATORY - MEDICINE [place] [facility] [place] [facility] Oct 28, 2024 08:00 AM AMBULATORY - MEDICINE [facility] [place] [facility] Active, Pending, and Scheduled Orders This section includes a listing of several types of active, pending, and scheduled orders, including clinic medications orders, diagnostic test orders, procedure orders and consult orders; where the start date of the order is 45 days before the date of the Encounter or 45 days after the date of theEncounter. The data comes from all [place] treatment facilities. Test Date/Time Test Type Test Details Facility Name Jun 06, 2024 04:26 PM Consult Order COMM[facility]ITY CARE-[facility]THO GENERAL Cons Finished Cloth Examiner's Choice [place] [facility] [facility] Jun 26, 2024 04:42 PM Consult Order COMMUNITY CARE-GEC NON-SKILLED HOME HEALTH AIDE Cons Finished Cloth Examiner's Choice [place] [facility] [facility] Social History: Smoking Status (Most [...] VA-TOBACCO FORMER USER [place] [facility] [place] [facility] Tobacco Use History This section includes a history of the smoking, or tobacco-related health factors, that were collected on or before the date of the Encounter. The data comes from the [place] facility where the Encounter took place. Date/Time Smoking Status/Tobacco Use Comment F dennis Oct 16, 2023 01:30 PM VA-TOBACCO QUIT 15 YRS OR MORE [place] [facility] [place] [facility] Jul 04, 2022 11:00 AM VA-TOBACCO FORMER USER [place] [facility] [place] [facility] Jul 04, 2022 11:00 AM VA-TOBACCO QUIT 15 YRS OR MORE [place] [facility] [facility] Jun 28, 2021 10:30 AM VA-TOBACCO FORMER USER [place] [facility] [place] [facility] Jun 28, 2021 10:30 AM VA-TOBACCO QUIT 15 YRS OR MORE [place] [facility] [facility] May 26, 2020 08:00 AM VA-TOBACCO FORMER USER [place] [facility] [place] [facility] May 26, 2020 08:00 AM VA-TOBACCO QUIT 15 YRS OR MORE [place] [facility] [facility] May 23, 2018 11:21 AM VA-TOBACCO NEVER USED [facility] Advance Directives: All historical and [...] Feb 19, 2022 ADVANCE DIRECTIVE JOCE CASTORENA [facility] November 16, 2020 ADVANCE DIRECTIVE JOSUE SIMMONS [facility] Encounter Notes: All associated encounter notes This section contains the clinical notes associated to the Encounter. Date/Time Encounter Note(s) Provider Source Jul 02, 2024 04:35 PM NONVA CONSULT: LOCAL TITLE: MD/OUTSIDE CONSULT REPORT SUMMARY STANDARD TITLE: NONVA CONSULT DATE OF NOTE: JUL 02, 2024@16:35 ENTRY DATE: JUL 02, 2024@16:35:58 AUTHOR: JOSUE SIMMONS EXP COSIGNER: URGENCY: STATUS: COMPLETED 06-19-[address] [facility] Chief complaint: Follow-up left ankle ORIF 01-21-2024 X-rays: No fracture Ultrasound: no DVT /es/ Josue Simmons MD Staff Physician Signed: 07/02/2024 16:36 JOSUE SIMMONS [facility]
--- OUTSIDE RECORDS SUMMARY | 2024-07-06 08:06 | XMS_ITS | Encounter Summary ---
Author Name [place] Address [address] [place] [address] Care Team Providers Care Senior Qa Engineer Name Role Phone JOSUE SIMMONS Primary [...] Dec 19, 2007 MEDICAR E SUPPLEM E [id number] NYDIA HUERTA UL PATIENT [employer] MEDICARE SUPPLEMEN YORDAN Dec 19, 2007 MEDICAR E SUPPLEM E [id number] NYDIA HUERTA UL PATIENT [employer] [place] MEDICARE SUPPLEMEN YORDAN BANKE RS Dec 19, 2007 NONE [id number] NYDIA HUERTA UL PATIENT MEDICARE (WNR) MEDICARE (M) PART B Oct 13, 2006 PART B [id number] [phone] NYDIA HUERTA UL PATIENT MEDICARE (WNR) MEDICARE (M) PART B Oct 13, 2006 PART B [id number] DOM[place] UL PATIENT MEDICARE (WNR) MEDICARE (M) PART B Oct 13, 2006 PART B [id number] [phone] NYDIA HUERTA PATIENT MEDICARE (WNR) MEDICARE (M) PART B Oct 13, 2006 PART B [id number] NYDIA HUERTA PATIENT MEDICARE (WNR) MEDICARE (M) PART A Sep 13, 2003 PART A [id number] NYDIA HUERTA PATIENT MEDICARE (WNR) MEDICARE (M) PART A Sep 13, 2003 PART A [id number] NYDIA HUERTA PATIENT MEDICARE (WNR) MEDICARE (M) PART A Sep 13, 2003 PART A [id number] NYDIA HUERTA PATIENT MEDICARE (WNR) MEDICARE (M) PART A Sep 13, 2003 PART A [id number] NYDIA HUERTA PATIENT Selected Encounter This section includes the information on record at [place] for the Encounter. Date/Time Encounter Type Encounter Description Reason Provider Source December 05, 2023 10:00 AM UNLISTED SPEC DERM SVC/PX DERMATOLOGY ICD-10-CM Z13.89 Encounter for screening for other disorder SALMA BEAUCHAMP [facility] Encounter Template Text not used by [place] Assessments - Encounter Diagnoses This section includes the primary and secondary diagnoses documented for the Encounter. Date/Time Primary/Secondary Diagnosis Diagnosis Name Provider Source Dec 28, 2023 08:14 AM PRIMARY Encounter for screening for other disorder SALMA BEAUCHAMP [facility] Plan of Treatment: Future Appointments (+ [...] 11:00 AM AMBUL[facility] [place] [facility] Jan 13, 2024 01:20 PM AMBULATORY - MEDICINE [place] [facility] [place] [facility] Jan 21, 2024 08:00 AM AMBULATORY - MEDICINE [place] [facility] [place] [facility] Feb 03, 2024 01:30 PM AMBULATORY - REHAB MEDICIN E [place] [facility] [facility] Mar 05, 2024 08:00 AM AMBULATORY - MEDICINE [place] [facility] [place] [facility] Mar 05, 2024 09:00 AM AMBULATORY - MEDICINE [place] [facility] [place] [facility] Mar 06, 2024 08:00 AM AMBULATORY - MEDICINE [place] [facility] [place] [facility] Mar 24, 2024 02:00 PM AMBULATORY - MEDICINE [place] [facility] [place] [facility] Mar 31, 2024 09:30 AM AMBULATORY - REHAB MEDICIN E [place] [facility] [place] [facility] Apr 13, 2024 01:30 PM AMBULATORY - MEDICINE [place] [facility] [place] [facility] Apr 28, 2024 02:00 PM AMBULATORY - MEDICINE [place] [facility] [place] [facility] May 05, 2024 02:00 PM AMBULATORY - REHAB MEDICIN E [place] [facility] [place] [facility] Social History: Smoking Status (Most current) and [...] 16, 2023 01:30 PM VA-TOBACCO FORMER USER [place] [facility] [place] [facility] Tobacco Use History This section includes a history of the smoking, or tobacco-related health factors, that were collected on or before the date of the Encounter. The data comes from the [place] facility where the Encounter took place. Date/Time Smoking Status/Tobacco Use Comment F acgary Oct 16, 2023 01:30 PM VA-TOBACCO QUIT 15 YRS OR MORE [place] [facility] [place] [facility] Jul 04, 2022 11:00 AM VA-TOBACCO FORMER USER [place] [facility] [place] [facility] Jul 04, 2022 11:00 AM VA-TOBACCO QUIT 15 YRS OR MORE [place] [facility] [place] [facility] Jun 28, 2021 10:30 AM VA-TOBACCO FORMER USER [place] [facility] [place] [facility] Jun 28, 2021 10:30 AM VA-TOBACCO QUIT 15 YRS OR MORE [place] [facility] [place] [facility] May 26, 2020 08:00 AM VA-TOBACCO FORMER USER [place] [facility] [place] [facility] May 26, 2020 08:00 AM VA-TOBACCO QUIT 15 YRS OR MORE [place] [facility] [place] [facility] May 23, 2018 11:21 AM VA-TOBACCO NEVER USED [place] [facility] Advance Directives: All historical and current [...] Feb 19, 2022 ADVANCE DIRECTIVE JOCE CASTORENA [place] [facility] [facility] November 16, 2020 ADVANCE DIRECTIVE JOSUE SIMMONS [place] [facility] [place] [facility] Encounter Notes: All associated encounter notes This [...] Teledermatology appt. REMOTE RESULTS RUBI Document from: [facility] Associated on: December 05, 2023@15:06:48 LOCAL [...] satisfactory EXAM: 8 mm brown macule with community specialist medial pole. IMPRESSION BASED ON IMAGES AND [...] RESULTS * /eleanor/ SALMA BEAUCHAMP TELEHEALTH CLINICAL RADIOGRAPHER TECHNOLOGIST Signed: 12/05/2023 15:23 Receipt Acknowledged By: 12/10/2023 10:52 /es/ RANCHO RODRIGUEZ DNP, DRUM TESTER-C NURSE PRACTITIONER 12/05/2023 15:32 /es/ Josue Simmons MD Staff Physician SALMA BEAUCHAMP [place] [facility] December 05, 2023 09:57 AM TELEHEALTH [...] Symptoms CHANGES: unsure TREATMENT: No BIOPSY: No Ventilated Rib Fitter's comments: Imaged per providers direction and facility protocol /eleanor/ SALMA BEAUCHAMP TELEHEALTH CLINICAL RADIOGRAPHER TECHNOLOGIST Signed: 12/05/2023 10:32 SALMA BEAUCHAMP [facility]
--- OUTSIDE RECORDS SUMMARY | 2024-07-06 08:06 | XMS_ITS ---
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 Organization [place] Address [address] [place] [address] Care Team Providers Care Shoder Filler Name Role Phone JOSUE SIMMONS Primary Care [...] Dec 19, 2007 MEDICAR E SUPPLEM E [id number] NYDIA HUERTA UL PATIENT [employer] MEDICARE SUPPLEMEN YORDAN Dec 19, 2007 MEDICAR E SUPPLEM E [id number] NYDIA HUERTA UL PATIENT [employer] [place] MEDICARE SUPPLEMEN YORDAN BANKE RS Dec 19, 2007 NONE [id number] NYDIA HUERTA UL PATIENT MEDICARE (WNR) MEDICARE (M) PART B Oct 13, 2006 PART B [id number] [phone] NYDIA HUERTA UL PATIENT MEDICARE (WNR) MEDICARE (M) PART B Oct 13, 2006 PART B [id number] DOM[place] UL PATIENT MEDICARE (WNR) MEDICARE (M) PART B Oct 13, 2006 PART B [id number] NYDIA HUERTA PATIENT MEDICARE (WNR) MEDICARE (M) PART B Oct 13, 2006 PART B [id number] NYDIA HUERTA PATIENT MEDICARE (WNR) MEDICARE (M) PART A Sep 13, 2003 PART A [id number] [phone] NYDIA HUERTA PATIENT MEDICARE (WNR) MEDICARE (M) PART A Sep 13, 2003 PART A [id number] NYDIA HUERTA PATIENT MEDICARE (WNR) MEDICARE (M) PART A Sep 13, 2003 PART A [id number] NYDIA HUERTA PATIENT MEDICARE (WNR) MEDICARE (M) PART A Sep 13, 2003 PART A [id number] [phone] NYDIA HUERTA PATIENT Selected Encounter This [...] MEDICIN E [place] [facility] [facility] Jan 13, 2024 01:20 PM AMBULATORY - MEDICINE [place] [facility] [place] [facility] Jan 21, 2024 08:00 AM AMBULATORY - MEDICINE [place] [facility] [place] [facility] Feb 03, 2024 01:30 PM AMBULATORY - REHAB MEDICIN E [place] [facility] [place] [facility] Mar 05, 2024 08:00 AM AMBULATORY - MEDICINE [place] [facility] [place] [facility] Mar 05, 2024 09:00 AM AMBULATORY - MEDICINE [place] [facility] [place] [facility] Mar 06, 2024 08:00 AM AMBULATORY - MEDICINE [place] [facility] [place] [facility] Mar 24, 2024 02:00 PM AMBULATORY - MEDICINE [place] [facility] [place] [facility] Mar 31, 2024 09:30 AM AMBULATORY - REHAB MEDICIN E [place] [facility] [place] [facility] Apr 13, 2024 01:30 PM AMBULATORY - MEDICINE [place] [facility] [place] [facility] Apr 28, 2024 02:00 PM AMBULATORY - MEDICINE [place] [facility] [place] [facility] May 05, 2024 02:00 PM AMBULATORY - REHAB MEDICIN E [place] [facility] [place] [facility] Social History: Smoking Status (Most [...] YRS OR MORE [place] [facility] [place] [facility] Tobacco Use History This section includes a history of the smoking, or tobacco-related health factors, that were collected on or before the date of the Encounter. The data comes from the [place] facility where the Encounter took place. Date/Time Smoking Status/Tobacco Use Comment F acility Oct 16, 2023 01:30 PM VA-TOBACCO QUIT 15 YRS OR MORE [place] [facility] [place] [facility] Jul 04, 2022 11:00 AM VA-TOBACCO FORMER USER [place] [facility] [place] [facility] Jul 04, 2022 11:00 AM VA-TOBACCO QUIT 15 YRS OR MORE [place] [facility] [place] [facility] Jun 28, 2021 10:30 AM VA-TOBACCO FORMER USER [place] [facility] [place] [facility] Jun 28, 2021 10:30 AM VA-TOBACCO QUIT 15 YRS OR MORE [place] [facility] [place] [facility] May 26, 2020 08:00 AM VA-TOBACCO FORMER USER [place] [facility] [place] [facility] May 26, 2020 08:00 AM VA-TOBACCO QUIT 15 YRS OR MORE [place] [facility] [place] [facility] May 23, 2018 11:21 AM VA-TOBACCO NEVER USED [facility] Advance Directives: All historical and current [...] 2022 ADVANCE DIRECTIVE JOCE CASTORENA [place] [facility] [facility] November 16, 2020 ADVANCE DIRECTIVE J[facility]UE SIMMONS [facility] Encounter Notes: All associated encounter notes This section contains the clinical notes associated to the Encounter. Date/Time Encounter Note(s) Provider Source December 05, 2023 03:30 PM LETTERS: LOCAL TITLE: PATIENT LETTER (T) STANDARD TITLE: LETTERS DATE OF NOTE: DECEMBER 05, 2023@15:30 ENTRY DATE: DECEMBER 05, 2023@15:30:11 AUTHOR: JOSUE SIMMONS EXP COSIGNER: URGENCY: STATUS: COMPLETED [facility] Toll Free Number Primary Care Telephone Assistance can be reached at extension [phone] [facility] scheduling can be reached at extension [phone] [facility] scheduling can be reached at ext [phone] ALYCIA HUERTA [address] [place] [address], [address] December 05, 2023 Dear , Please find enclosed a [...] Team [facility] [address] [address] [place] [address] [phone] [facility] [address] [place] [address] [place] [address] [phone] [facility] [address] [facility],[address] [place] [address] [place] [address] JOSUE SIMMONS [facility]
--- OUTSIDE RECORDS SUMMARY | 2024-07-06 08:06 | XMS_ITS ---
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 Address [address] [place] [address] Care Team Providers Care Postal Service Clerk Name Role Phone BYRON SIMMONS Primary Care [...] Dec 19, 2007 MEDICAR E SUPPLEM E [id number] [phone] NYDIA HUERTA UL PATIENT [employer] MEDICARE SUPPLEMEN YORDAN Dec 19, 2007 MEDICAR E SUPPLEM E [id number] NYDIA HUERTA UL PATIENT [employer] [place] MEDICARE SUPPLEMEN YORDAN BANKE RS Dec 19, 2007 NONE [id number] NYDIA HUERTA UL PATIENT MEDICARE (WNR) MEDICARE (M) PART B Oct 13, 2006 PART B [id number] NYDIA HUERTA UL PATIENT MEDICARE (WNR) MEDICARE (M) PART B Oct 13, 2006 PART B [id number] DOM[place] UL PATIENT MEDICARE (WNR) MEDICARE (M) PART B Oct 13, 2006 PART B [id number] NYDIA HUERTA PATIENT MEDICARE (WNR) MEDICARE (M) PART B Oct 13, 2006 PART B [id number] NYDIA HUERTA PATIENT MEDICARE (WNR) MEDICARE (M) PART A Sep 13, 2003 PART A [id number] NYDIA HUERTA PATIENT MEDICARE (WNR) MEDICARE (M) PART A Sep 13, 2003 PART A [id number] [phone] NYDIA HUERTA PATIENT MEDICARE (WNR) MEDICARE (M) PART A Sep 13, 2003 PART A [id number] NYDIA HUERTA PATIENT MEDICARE (WNR) MEDICARE (M) PART A Sep 13, 2003 PART A [id number] [phone] NYDIA HUERTA PATIENT Selected Encounter This [...] 05, 2023 10:00 AM AMBULATORY - NONE [place] [facility] [place] [facility] Dec 30, 2023 11:00 AM AMBULATORY - REHAB MEDICIN E [place] [facility] [place] [facility] Jan 13, 2024 01:20 PM AMBULATORY - MEDICINE [place] [facility] Jan 21, 2024 08:00 AM AMBULATORY - MEDICINE [place] [facility] Feb 03, 2024 01:30 PM AMBULATORY - REHAB MEDICIN E [place] [facility] [place] [facility] Mar 05, 2024 08:00 AM AMBULATORY - MEDICINE [place] [facility] [place] [facility] Mar 05, 2024 09:00 AM AMBULATORY - MEDICINE [place] [place] [facility] Mar 06, 2024 08:00 AM AMBULATORY - MEDICINE [place] [place] [facility] Mar 24, 2024 02:00 PM AMBULATORY - MEDICINE [place] [place] [facility] Mar 31, 2024 09:30 AM AMBULATORY - REHAB MEDICIN E [place] [facility] [place] [facility] Apr 13, 2024 01:30 PM AMBULATORY - MEDICINE [place] [facility] [place] [facility] Apr 28, 2024 02:00 PM AMBULATORY - MEDICINE [place] [place] [facility] May 05, 2024 02:00 PM AMBULATORY - REHAB MEDICIN E [place] [facility] [place] [facility] Social History: Smoking Status (Most current) and Tobacco Use (All prior to encounter date) This section includes the most current, and the historical, smoking and tobacco- related health factors from the [place] facility where the Encounter took place. Current Smoking Status This section includes the most current smoking, or tobacco-related health factor, from the [place] facility where the Encounter took place. Date/Time Current Smoking Status Comment Facil ity Oct 16, 2023 01:30 PM VA-TOBACCO QUIT 15 YRS OR MORE [place] [facility] Tobacco Use History This section includes a history of the smoking, or tobacco-related health factors, that were collected on or before the date of the Encounter. The data comes from the [place] facility where the Encounter took place. Date/Time Smoking Status/Tobacco Use Comment F acility Oct 16, 2023 01:30 PM VA-TOBACCO QUIT 15 YRS OR MORE [place] [facility] [place] [facility] Jul 04, 2022 11:00 AM VA-TOBACCO FORMER USER [place] [facility] [place] [facility] Jul 04, 2022 11:00 AM VA-TOBACCO QUIT 15 YRS OR MORE [place] [facility] [place] [facility] Jun 28, 2021 10:30 AM VA-TOBACCO FORMER USER [place] [facility] [place] [facility] Jun 28, 2021 10:30 AM VA-TOBACCO QUIT 15 YRS OR MORE [place] [facility] [place] [facility] May 26, 2020 08:00 AM VA-TOBACCO FORMER USER [place] [facility] [facility] May 26, 2020 08:00 AM VA-TOBACCO QUIT 15 YRS OR MORE [place] [facility] [place] [facility] May 23, 2018 11:21 AM VA-TOBACCO [facility]ED [facility] Advance Directives: All historical and current Section [...] Feb 19, 2022 ADVANCE DIRECTIVE JOCE CASTORENA [facility] November 16, 2020 ADVANCE DIRECTIVE BYRON SIMMONS [facility] Encounter Notes: [...] By: 12/02/2023 07:33 /eleanor/ RANCHO RODRIGUEZ DNP, BEAN VINER-C NURSE PRACTITIONER 12/02/2023 ADDENDUM STATUS: COMPLETED New consult not needed, is an established patient. Will forward consult to TeleDer re: R low back lesion for prompt imaging and triage. /eleanor/ RANCHO RODRIGUEZ DNP, BEAN VINER-C NURSE PRACTITIONER Signed: 12/02/2023 07:33 BYRON SIMMONSCarlo [facility]ENT[facility]achna [facility]
--- OUTSIDE RECORDS SUMMARY | 2024-07-06 08:06 | XMS_ITS | Encounter Summary ---
Author Name [facility] [place] Address [address] [place] [address] Care Team Providers Care Lime Trimmer Name Role Phone BYRON BARRON Primary Care [...] Dec 19, 2007 MEDICAR E SUPPLEM E [id number] [phone] NYDIA HUERTA UL PATIENT [employer] MEDICARE SUPPLEMEN YORDAN Dec 19, 2007 MEDICAR E SUPPLEM E [id number] NYDIA HUERTA UL PATIENT [employer] CASUAL[employer] [place] MEDICARE SUPPLEMEN YORDAN BANKE RS Dec 19, 2007 NONE [id number] NYDIA HUERTA UL PATIENT MEDICARE (WNR) MEDICARE (M) PART B Oct 13, 2006 PART B [id number] NYDIA HUERTA UL PATIENT MEDICARE (WNR) MEDICARE (M) PART B Oct 13, 2006 PART B [id number] NYDIA HUERTA UL PATIENT MEDICARE (WNR) MEDICARE (M) PART B Oct 13, 2006 PART B [id number] NYDIA HUERTA PATIENT MEDICARE (WNR) MEDICARE (M) PART B Oct 13, 2006 PART B [id number] NYDIA HUERTA PATIENT MEDICARE (WNR) MEDICARE (M) PART A Sep 13, 2003 PART A [id number] [phone] NYDIA HUERTA PATIENT MEDICARE (WNR) MEDICARE (M) PART A Sep 13, 2003 PART A [id number] NYDIA HUERTA PATIENT MEDICARE (WNR) MEDICARE (M) PART A Sep 13, 2003 PART A [id number] NYDIA HUERTA PATIENT MEDICARE (WNR) MEDICARE (M) PART A Sep 13, 2003 PART A [id number] NYDIA HUERTA PATIENT Selected Encounter This section includes the information on record at [place] for the Encounter. Date/Time Encounter Type Encounter Description Reason Provider Source Dec 30, 2023 11:00 AM TYMPANOMETRY AUDIOLOGY ICD-10-CM H90.6 Mixed conductive and sensorineural hearing loss, bilateral MARKINITI,SAAD E E Encounter Template Text not used by [place] Assessments - Encounter Diagnoses This section includes the primary and secondary diagnoses documented for the Encounter. Date/Time Primary/Secondary Diagnosis Diagnosis Name Provider Source Dec 30, 2023 11:58 AM PRIMARY Mixed conductive and sensorineural hearing loss, bilateral MARKINITI,SAAD E [facility] Plan of Treatment: Future Appointments (+ 6 [...] 13, 2024 01:20 PM AMBULATORY - MEDICINE [facility] Jan 21, 2024 08:00 AM AMBULATORY - MEDICINE [place] [facility] Feb 03, 2024 01:30 PM AMBULATORY - REHAB MEDICIN E [place] [facility] [place] [facility] Mar 05, 2024 08:00 AM AMBULATORY - MEDICINE [place] [facility] [place] [facility] Mar 05, 2024 09:00 AM AMBULATORY - MEDICINE [place] [facility] [place] [place] [facility] Mar 06, 2024 08:00 AM AMBULATORY - MEDICINE [place] [facility] [place] [facility] Mar 24, 2024 02:00 PM AMBULATORY - MEDICINE [place] [facility] [place] [facility] Mar 31, 2024 09:30 AM AMBULATORY - REHAB MEDICIN E [place] [facility] [place] [facility] Apr 13, 2024 01:30 PM AMBULATORY - MEDICINE [place] [facility] [place] [facility] Apr 28, 2024 02:00 PM AMBULATORY - MEDICINE [place] [facility] [place] [facility] May 05, 2024 02:00 PM AMBULATORY - REHAB MEDICIN E [place] [facility] [place] [facility] Jun 16, 2024 01:15 PM AMBULATORY - MEDICINE [place] [facility] Social History: Smoking Status (Most [...] PM VA-TOBACCO QUIT 15 YRS OR MORE [place] [facility]TR [place] [facility] Tobacco Use History This section includes a history of the smoking, or tobacco-related health factors, that were collected on or before the date of the Encounter. The data comes from the [place] facility where the Encounter took place. Date/Time Smoking Status/Tobacco Use Comment F acgary Oct 16, 2023 01:30 PM VA-TOBACCO QUIT 15 YRS OR MORE [place] [facility] [facility] Jul 04, 2022 11:00 AM VA-TOBACCO FORMER USER [place] [facility] [place] [facility] Jul 04, 2022 11:00 AM VA-TOBACCO QUIT 15 YRS OR MORE [place] [facility] [place] [facility] Jun 28, 2021 10:30 AM VA-TOBACCO FORMER USER [place] [facility] [place] [facility] Jun 28, 2021 10:30 AM VA-TOBACCO QUIT 15 YRS OR MORE [place] [facility] [place] [facility] May 26, 2020 08:00 AM VA-TOBACCO FORMER USER [place] [facility] [place] [facility] May 26, 2020 08:00 AM VA-TOBACCO QUIT 15 YRS OR MORE [place] [facility] [facility] May 23, 2018 11:21 AM [facility]AC[facility] Advance Directives: All historical [...] ADVANCE DIRECTIVE JOCE CASTORENA [place] [facility] November 16, 2020 ADVANCE DIRECTIVE BYRON BARRON [facility] Encounter Notes: All associated encounter notes This section contains the clinical notes associated to the Encounter. Date/Time Encounter Note(s) Provider Source Dec 30, 2023 10:07 AM AUDIOLOGY E & M NO TE: LOCAL TITLE: AUDIOLOGY CLINIC STANDARD TITLE: AUDIOLOGY E & M NOTE DATE OF NOTE: DEC 30, 2023@10:07 ENTRY DATE: DEC 30, 2023@10:07:18 AUTHOR: SAAD HARRINGTON COSIGNER: URGENCY: STATUS: COMPLETED was seen 12-30-23 for a hearing re-evaluation. He reports he is having difficulty hearing conversation and hearing people approach him. Hearing was last evaluated in 2019 for C&P purposes, at which time he [...] to severe mixed hearing loss. Results from 7926-1130 Hz reflect testing with inserts, as those [...] ears) in comparison to those from 2019. [place] was counseled on today's test results. Given asymmetry and the mixed component, ENT evaluation is recommended and medical clearance for amplification is required. Consult submitted to [facility]. will contact the clinic to schedule HAS when he is cleared. /Alcon [place], [facility]A STAFF METAL ENGINEERING PROCESS WORKER Signed: 12/30/2023 13:50 SAAD HARRINGTON [facility]
--- OUTSIDE RECORDS SUMMARY | 2024-07-06 08:06 | XMS_ITS | Encounter Summary ---
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 Address [address] [place] [address] Care Team Providers Care Faith Doctor Name Role Phone BYRON BARRON Primary Care [...] Dec 19, 2007 MEDICAR E SUPPLEM E [id number] NYDIA HUERTA UL PATIENT [employer] MEDICARE SUPPLEMEN YORDAN Dec 19, 2007 MEDICAR E SUPPLEM E [id number] NYDIA HUERTA UL PATIENT [employer] CO MEDICARE SUPPLEMEN YORDAN BANKE RS Dec 19, 2007 NONE [id number] [phone] NYDIA HUERTA UL PATIENT MEDICARE (WNR) MEDICARE (M) PART B Oct 13, 2006 PART B [id number] [facility] [phone] NYDIA HUERTA UL PATIENT MEDICARE (WNR) MEDICARE (M) PART B Oct 13, 2006 PART B [id number] NYDIA HUERTA UL PATIENT MEDICARE (WNR) MEDICARE (M) PART B Oct 13, 2006 PART B [id number] NYDIA HUERTA PATIENT MEDICARE (WNR) MEDICARE (M) PART B Oct 13, 2006 PART B [id number] NYDIA HUERTA PATIENT MEDICARE (WNR) MEDICARE (M) PART A Sep 13, 2003 PART A [id number] NYDIA HUERTA PATIENT MEDICARE (WNR) MEDICARE (M) PART A Sep 13, 2003 PART A [id number] NYDIA HUERTA PATIENT MEDICARE (WNR) MEDICARE (M) PART A Sep 13, 2003 PART A [id number] [phone] NYDIA HUERTA PATIENT MEDICARE (WNR) MEDICARE (M) PART A Sep 13, 2003 PART A [id number] [phone] NYDIA HUERTA PATIENT Selected Encounter This section includes the information on record at [place] for the Encounter. Date/Time Encounter Type Encounter Description Reason Pro vider Source Jun 26, 2024 03:07 PM Outpatient Encounter [facility] ASSESSMENT IHE Encounter Template Text not used by [place] Plan of Treatment: Future Appointments (+ 6 [...] 20, 2024 08:00 AM AMBULATORY - MEDICINE [place] [facility] Aug 14, 2024 03:00 PM AMBULATORY - MEDICINE [place] C [place] [facility] Oct 07, 2024 09:00 AM AMBULATORY - MEDICINE [place] C [place] [facility] Oct 28, 2024 08:00 AM AMBULATORY - MEDICINE [facility] [place] [facility] Active, Pending, and Scheduled Orders This section includes a listing of several types of active, pending, and scheduled orders, including clinic medications orders, diagnostic test orders, procedure orders and consult orders; where the start date of the order is 45 days before the date of the Encounter or 45 days after the date of theEncounter. The data comes from all [place] treatment facilities. Test Date/Time Test Type Test Details Facility Name Jun 06, 2024 04:26 PM Consult Order [facility]TH[facility] GENERAL Cons [employer] Maker's Choice [place] [facility] Jun 26, 2024 04:42 PM Consult Order COMMUNITY CARE-GEC NON-SKILLED HOME HEALTH AIDE Cons [employer] Choice [place] [facility] [facility] Social History: Smoking Status (Most [...] 16, 2023 01:30 PM VA-TOBACCO FORMER USER [place] [facility] Tobacco Use History This section includes a history of the smoking, or tobacco-related health factors, that were collected on or before the date of the Encounter. The data comes from the [place] facility where the Encounter took place. Date/Time Smoking Status/Tobacco Use Comment F dennis Oct 16, 2023 01:30 PM VA-TOBACCO QUIT 15 YRS OR MORE [place] [facility] [place] [facility] Jul 04, 2022 11:00 AM VA-TOBACCO FORMER USER [place] [facility] [facility] Jul 04, 2022 11:00 AM VA-TOBACCO QUIT 15 YRS OR MORE [place] [facility] [place] [facility] Jun 28, 2021 10:30 AM VA-TOBACCO FORMER USER [place] [facility]TR[facility] [place] [facility] Jun 28, 2021 10:30 AM VA-TOBACCO QUIT 15 YRS OR MORE [place] [facility] [place] [facility] May 26, 2020 08:00 AM VA-TOBACCO FORMER USER [place] [place] [facility] May 26, 2020 08:00 AM VA-TOBACCO QUIT 15 YRS OR MORE [place] [facility] May 23, 2018 11:21 AM VA-TOBACCO NEVER USED [facility] Advance Directives: All historical and [...] Feb 19, 2022 ADVANCE DIRECTIVE JOCE CASTORENA [facility] November 16, 2020 ADVANCE DIRECTIVE BYRON BARRON [facility] Encounter Notes: All associated encounter notes This section contains the clinical notes associated to the Encounter. Date/Time Encounter Note(s) Provider Source Jun 26, 2024 03:07 PM SOCIAL WORK NOTE: LOCAL TITLE: PERSONAL CARE SERVICES REVIEW STANDARD TITLE: SOCIAL WORK NOTE DATE OF NOTE: JUN 26, 2024@15:07 ENTRY DATE: JUN 26, 2024@15:07:49 AUTHOR: BREE MONTILLA EXP COSIGNER: URGENCY: STATUS: COMPLETED Personal Care Services Review Type of review: Reauthorization Information to complete oversight obtained from: [place] Community vendor staff Specify Contact: Kirstie [employer]Star vendor Name: [facility] Community vendor point of contact Name: Kirstie The care plan has been reviewed. Care rendered as authorized. Patient Satisfaction: How satisfied is the with their community vendor? Completely How satisfied is the with their personal fitness trainer(s)? Completely How successful is the program in meeting the [place]'s needs/assisting them to stay at home? Completely The [place] feels safe with personal care services provided to them. meets administrative eligibility criteria. [place] meets clinical eligibility criteria. Case Mix Tool: Date Completed: Jan Case Mix Score: D First range of hours to be used. Plan: Authorization(s) to remain the same Homemaker/Home Health Aide Standardized Episode of Care (SEOC) SEOC duration: 180 days Hours per SEOC duration: 10 hrs wkmaylin /eleanor/ ZACHARY [facility] TRAFFIC CHECKER Signed: 06/26/2024 15:09 BREE MONTILLA [facility]
--- OUTSIDE RECORDS SUMMARY | 2024-07-06 08:06 | XMS_ITS ---
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 Address [address] [place] [address] Care Team Providers Care Pharmacy Operations Specialist Name Role Phone BYRON BARRON Primary Care [...] Dec 19, 2007 MEDICAR E SUPPLEM E [id number] NYDIA HUERTA UL PATIENT [employer] MEDICARE SUPPLEMEN YORDAN Dec 19, 2007 MEDICAR E SUPPLEM E [id number] [phone] NYDIA HUERTA UL PATIENT [employer] CO MEDICARE SUPPLEMEN YORDAN BANKE RS Dec 19, 2007 NONE [id number] NYDIA HUERTA UL PATIENT MEDICARE (WNR) MEDICARE (M) PART B Oct 13, 2006 PART B [id number] [facility] NYDIA HUERTA UL PATIENT MEDICARE (WNR) MEDICARE (M) PART B Oct 13, 2006 PART B [id number] NYDIA HUERTA UL PATIENT MEDICARE (WNR) MEDICARE (M) PART B Oct 13, 2006 PART B [id number] NYDIA HUERTA PATIENT MEDICARE (WNR) MEDICARE (M) PART B Oct 13, 2006 PART B [id number] NYDIA HUERTA PATIENT MEDICARE (WNR) MEDICARE (M) PART A Sep 13, 2003 PART A [id number] NYDIA HUERTA PATIENT MEDICARE (WNR) MEDICARE (M) PART A Sep 13, 2003 PART A [id number] NYDIA HUERTA PATIENT MEDICARE (WNR) MEDICARE (M) PART A Sep 13, 2003 PART A [id number] NYDIA HUERAT PATIENT MEDICARE (WNR) MEDICARE (M) PART A Sep 13, 2003 PART A [id number] [phone] NYDIA HUERTA PATIENT Selected Encounter This [...] 16, 2024 01:15 PM AMBULATORY - MEDICINE [place] [facility] Jul 20, 2024 08:00 AM AMBULATORY - MEDICINE [place] [facility] Aug 14, 2024 03:00 PM AMBULATORY - MEDICINE [place] C [place] [facility] Oct 07, 2024 09:00 AM AMBULATORY - MEDICINE [place] C [place] [facility] Oct 28, 2024 08:00 AM AMBULATORY - MEDICINE [place] C [place] [facility] Active, Pending, and Scheduled Orders This section includes a listing of several types of active, pending, and scheduled orders, including clinic medications orders, diagnostic test orders, procedure orders and consult orders; where the start date of the order is 45 days before the date of the Encounter or 45 days after the date of theEncounter. The data comes from all [place] treatment facilities. Test Date/Time Test Type Test Details Facility Name Jun 06, 2024 04:26 PM Consult Order COMMUNITY CARE-ORTHO GENERAL Cons Warehouse Traffic Supervisor's Choice [place] CNTR [place] [facility] Social History: Smoking Status (Most [...] 16, 2023 01:30 PM [facility]AC[facility] Tobacco Use History This section includes a history of the smoking, or tobacco-related health factors, that were collected on or before the date of the Encounter. The data comes from the [place] facility where the Encounter took place. Date/Time Smoking Status/Tobacco Use Comment F acility Oct 16, 2023 01:30 PM VA-TOBACCO QUIT 15 YRS OR MORE [place] [place] [facility] Jul 04, 2022 11:00 AM VA-TOBACCO FORMER USER [place]TRL [place] [facility] Jul 04, 2022 11:00 AM VA-TOBACCO QUIT 15 YRS OR MORE [place] [facility]TRL [place] [facility] Jun 28, 2021 10:30 AM VA-TOBACCO FORMER USER [place]TRL [place] [facility] Jun 28, 2021 10:30 AM VA-TOBACCO QUIT 15 YRS OR MORE [place] [facility]TRL [place] [facility] May 26, 2020 08:00 AM VA-TOBACCO FORMER USER [place]TRL [place] [facility] May 26, 2020 08:00 AM VA-TOBACCO QUIT 15 YRS OR MORE [place]TRL [place] [facility] May 23, 2018 11:21 AM VA-TOBACCO NEVER USED [facility] Advance Directives: All historical and current Section [...] Feb 19, 2022 ADVANCE DIRECTIVE JOCE CASTORENA [facility] November 16, 2020 ADVANCE DIRECTIVE BYRON BARRON [facility] Encounter Notes: All associated encounter notes This [...] REQUIRED Electronically Filed: 06/23/2024 by: LIZZIE BLISS [facility]
--- OUTSIDE RECORDS SUMMARY | 2024-07-06 08:06 | XMS_ITS ---
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 Address [address] [place] [address] Care Team Providers Care Straddle Bug Driver Name Role Phone JOSUE SIMMONS Primary Care [...] Dec 19, 2007 MEDICAR E SUPPLEM E [id number] NYDIA HUERTA UL PATIENT [employer] MEDICARE SUPPLEMEN YORDAN Dec 19, 2007 MEDICAR E SUPPLEM E [id number] 63 NYDIA HUERTA UL PATIENT [employer] CO MEDICARE SUPPLEMEN YORDAN BANKE RS Dec 19, 2007 NONE [id number] NYDIA HUERTA UL PATIENT MEDICARE (WNR) MEDICARE (M) PART B Oct 13, 2006 PART B [id number] [facility] [phone] NYDIA HUERTA UL PATIENT MEDICARE (WNR) MEDICARE (M) PART B Oct 13, 2006 PART B [id number] [facility] NYDIA HUERTA UL PATIENT MEDICARE (WNR) MEDICARE (M) PART B Oct 13, 2006 PART B [id number] NYDIA HUERTA PATIENT MEDICARE (WNR) MEDICARE (M) PART B Oct 13, 2006 PART B [id number] NYDIA HUERTA PATIENT MEDICARE (WNR) MEDICARE (M) PART A Sep 13, 2003 PART A [id number] NYDIA HUERTA PATIENT MEDICARE (WNR) MEDICARE (M) PART A Sep 13, 2003 PART A [id number] [phone] NYDIA HUERTA PATIENT MEDICARE (WNR) MEDICARE (M) PART A Sep 13, 2003 PART A [id number] NYDIA HUERTA PATIENT MEDICARE (WNR) MEDICARE (M) PART A Sep 13, 2003 PART A [id number] NYDIA HUERTA PATIENT Selected Encounter This section includes the information on record at [place] for the Encounter. Date/Time Encounter Type Encounter Description Reason Pro vider Source Jun 25, 2024 01:48 PM Outpatient Encounter PRIMARY CARE/MEDICINE IHE Encounter Template Text not used by [place] Plan of Treatment: Future Appointments (+ 6 months) and Future Tests (+/- 45 days) The Plan of Treatment section includes future care activities for the patient from all [place] treatmentfacilities. This section includes future appointments and future orders which are active, pending or scheduled. Future Appointments This section includes appointments that were scheduled to occur 6 months from the date of the Encounter, up to a maximum of 20 appointments. The data comes from all [place] treatment facilities. Appointment Date/Time Appointment Type Appointme nt Facility Name Jul 20, 2024 08:00 AM AMBULATORY - [place]ICINE [place] [facility] Aug 14, 2024 03:00 PM AMBULATORY - [place]ICINE [place] [facility] Oct 07, 2024 09:00 AM AMBULATORY - [place]ICINE [place] [facility] Oct 28, 2024 08:00 AM AMBULATORY - MEDICINE [facility] N[facility]L [place] [facility] Active, Pending, and Scheduled Orders This section includes a listing of several types of active, pending, and scheduled orders, including clinic medications orders, diagnostic test orders, procedure orders and consult orders; where the start date of the order is 45 days before the date of the Encounter or 45 days after the date of theEncounter. The data comes from all [place] treatment facilities. Test Date/Time Test Type Test Details Facility Name Jun 06, 2024 04:26 PM Consult Order COMMUNITY CARE-ORTHO GENERAL Cons District Home Economics Agent's Choice [place] [facility] Jun 26, 2024 04:42 PM Consult Order COMMUNITY CARE-GEC NON-SKILLED HOME HEALTH AIDE Cons District Home Economics Agent's Choice [place] [facility] Social History: Smoking Status (Most current) and Tobacco Use (All prior to encounter date) This section includes the most current, and the historical, smoking and tobacco- related health factors from the [place] facility where the Encounter took place. Current Smoking Status This section includes the most current smoking, or tobacco-related health factor, from the [place] facility where the Encounter took place. Date/Time Current Smoking Status Comment Darling blum Oct 16, 2023 01:30 PM VA-TOBACCO FORMER USER [place] [facility] Tobacco Use History This section includes a history of the smoking, or tobacco-related health factors, that were collected on or before the date of the Encounter. The data comes from the [place] facility where the Encounter took place. Date/Time Smoking Status/Tobacco Use Comment F dennis Oct 16, 2023 01:30 PM VA-TOBACCO QUIT 15 YRS OR MORE [place] [facility] Jul 04, 2022 11:00 AM VA-TOBACCO FORMER USER [place] [facility] Jul 04, 2022 11:00 AM VA-TOBACCO QUIT 15 YRS OR MORE [place] [facility] Jun 28, 2021 10:30 AM VA-TOBACCO FORMER USER [place] [facility] Jun 28, 2021 10:30 AM VA-TOBACCO QUIT 15 YRS OR MORE [place] [facility] May 26, 2020 08:00 AM VA-TOBACCO FORMER USER [place] [facility] May 26, 2020 08:00 AM VA-TOBACCO QUIT 15 YRS OR MORE [place] [facility] May 23, 2018 11:21 AM VA-TOBACCO NEVER USED [facility] Advance Directives: All historical and current Section Date Range: From patient's date of to the date document was created. This section includes ALL of a patient's completed or amended [place] Advance and Rescinded Directives. The entries below indicate that a directive exists for the patient, but an actual copy is not included with this document. The data comes from all [place] facilities. Date Advance Directives Provider Source Feb 19, 2022 ADVANCE DIRECTIVE JOCE CASTORENA [facility] November 16, 2020 ADVANCE DIRECTIVE JOSUE SIMMONS [facility] Encounter Notes: All associated encounter notes This section contains the clinical notes associated to the Encounter. Date/Time Encounter Note(s) Provider Source Jun 25, 2024 01:48 PM NONVA CONSULT: LOCAL TITLE: MD/OUTSIDE CONSULT REPORT SUMMARY STANDARD TITLE: NONVA CONSULT DATE OF NOTE: JUN 25, 2024@13:48 ENTRY DATE: JUN 25, 2024@13:48:21 AUTHOR: JOSUE SIMMONS EXP COSIGNER: URGENCY: STATUS: COMPLETED [facility] Office visit 06-01-2024, 06-16-2024 Plan: Follow-up [facility]IF left lateral malleolus fracture Dr. Chirinos 01-21-24 Patient wearing walking boot X-rays show hardware Plan: Follow-up with Dr. Chirinos this week /eleanor/ Josue Simmons MD Staff Physician Signed: 06/25/2024 13:49 JOSUE SIMMONS [facility]
--- OUTSIDE RECORDS SUMMARY | 2024-07-06 08:06 | XMS_ITS | Encounter Summary ---
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 [place] Organization [facility] [place] Address [address] [place] [id number] Care Team Providers Care Substitute Bus Driver Name Role Phone BYRON BARRON Primary Care [...] Dec 19, 2007 MEDICAR E SUPPLEM E [id number] [phone] NYDIA HUERTA UL PATIENT [employer] MEDIC[employer] SUPPLEMEN YORDAN Dec 19, 2007 MEDICAR E SUPPLEM E [id number] [phone] NYDIA HUERTA UL PATIENT [employer] [facility] [place] MEDICARE SUPPLEMEN YORDAN BANKE RS Dec 19, 2007 NONE [id number] NYDIA HUERTA UL PATIENT MEDICARE (WNR) MEDICARE (M) PART B Oct 13, 2006 PART B [id number] [facility] NYDIA HUERTA UL PATIENT MEDICARE (WNR) MEDICARE (M) PART B Oct 13, 2006 PART B [id number] [facility] NYDIA HUERTA UL PATIENT MEDICARE (WNR) MEDICARE (M) PART B Oct 13, 2006 PART B [id number] [phone] NYDIA HUERTA PATIENT MEDICARE (WNR) MEDICARE (M) PART B Oct 13, 2006 PART B [id number] NYDIA HUERTA PATIENT MEDICARE (WNR) MEDICARE (M) PART A Sep 13, 2003 PART A [id number] NYDIA HUERTA PATIENT MEDICARE (WNR) MEDICARE (M) PART A Sep 13, 2003 PART A [id number] NYDIA HUERTA PATIENT MEDICARE (WNR) MEDICARE (M) PART A Sep 13, 2003 PART A [id number] [phone] NYDIA HUERTA PATIENT MEDICARE (WNR) MEDICARE (M) PART A Sep 13, 2003 PART A [id number] NYDIA HUERTA PATIENT Selected Encounter This section includes the information on record at [place] for the Encounter. Date/Time Encounter Type Encounter Description Reason Pro vider Source November 21, 2023 12:00 PM Outpatient Encounter EVENT (HISTORICAL) IHE Encounter Template Text not used by [place] Plan of Treatment: Future Appointments (+ 6 [...] 05, 2023 10:00 AM AMBULATORY - NONE [facility] [place] [facility] Dec 30, 2023 11:00 AM AMBULATORY - [facility]HAB MEDICIN [facility] [place] [facility] Jan 13, 2024 01:20 PM AMBULATORY - MEDICINE [facility] [place] [facility] Jan 21, 2024 08:00 AM AMBULATORY - MEDICINE [facility] [place] [facility] Feb 03, 2024 01:30 PM AMBULATORY - REHAB MEDICIN E [facility] [place] [facility] Mar 05, 2024 08:00 AM AMBULATORY - MEDICINE [facility] [place] [facility] Mar 05, 2024 09:00 AM AMBULATORY - MEDICINE [facility] [place] [facility] Mar 06, 2024 08:00 AM AMBULATORY - MEDICINE [facility] [place] [facility] Mar 24, 2024 02:00 PM AMBULATORY - MEDICINE [facility] [place] [facility] Mar 31, 2024 09:30 AM AMBULATORY - REHAB MEDICIN E [facility] [place] [facility] Apr 13, 2024 01:30 PM AMBULATORY - MEDICINE [facility] [place] [facility] Apr 28, 2024 02:00 PM AMBULATORY - MEDICINE [facility] [place] [facility] May 05, 2024 02:00 PM AMBULATORY - REHAB MEDICIN E [facility] [place] [facility] Social [...] VA-TOBACCO FORMER USER [facility] [place] [facility] Tobacco [...] [facility] [place] [facility] Jul 04, 2022 11:00 AM VA-TOBACCO FORMER USER [facility] [place] [facility] Jul 04, 2022 11:00 AM VA-TOBACCO QUIT 15 YRS OR MORE [facility] [place] [facility] Jun 28, 2021 10:30 AM VA-TOBACCO FORMER USER [facility] [place] [facility] Jun 28, 2021 10:30 AM [facility] May 26, 2020 08:00 AM [facility]ACCO [facility] May 26, 2020 08:00 AM VA-TOBACCO QUIT 15 YRS OR [facility] May 23, 2018 11:21 AM VA-TOBACCO NEVER USED [facility] Advance Directives: All historical and [...] Feb 19, 2022 ADVANCE DIRECTIVE JOCE CASTORENA [facility] November 16, 2020 ADVANCE DIRECTIVE BYRON BARRON [facility] Encounter Notes: All associated encounter [...] REQUIRED Electronically Filed: 11/29/2023 by: MAT BLANCHARD [facility]
--- OUTSIDE RECORDS SUMMARY | 2024-07-06 08:07 | XMS_ITS ---
Author Organization [facility] Address [address] [place] [address] Care Team Providers Care Horseback Riding Instructor Name Role Phone Josue Simmons MD Primary Care Provider Unavailab Lyn Damico [phone] REASON FOR VISIT TELETYPE OR VARITYPE KEYBOARD OPERATOR PPWK Entered Encounters Encounter Location Date Provider Diagnosis [facility] [address] [place] [address] 03/12/2024 Lyn Lund Plan Of Treatment No Information Progress Notes * Reed MALLORY HDOB:1940 (83 yo M)Acc No.[id number]:03/12/2024 Patient:?Reed Mallory :1940???Age:83 Y???Sex:Male Address:[address] [place] [address] * true * Date:? Generated for Printi ng/Famichaelg/eTransmitting on:?07/06/2024 08:06 AM EST
--- OUTSIDE RECORDS SUMMARY | 2024-07-06 08:07 | XMS_ITS | Patient Health Record ---
Author Organization [facility] [place] Address [address] [place] [address] Care Team Providers Care Caustic Cresylate Shift Superintendent Name Role Phone Josue Simmons MD Primary Care Provider Lyn Aquino Unavailable [phone] Allergies Allergen (clinical drug ingredient) Drug/Non Drug [...] primary osteoarthritis of the ankle and/or foot ([id number]) Primary osteoarthrit is, right ankle and foot (M19.071) Active confirmed Encounters Encounter Location Date Provider Diagnosis [facility] [place] [address] [facility] [place] [address] 03/09/2024 Lyn Lund [facility] [address] [facility] [place] [address] 03/12/2024 Lyn Lund [facility] [place] [address] [facility] [place] [address] 04/02/2024 Lyn Lund Plan Of Treatment Pending Test Test Name Order Date X ray : Foot, right 3V 01/20/2015 X ray : Ankle, right 3V 03/04/2017 Insurance Providers Payer Name Payer Address Payer Phone Subscriber Number Group Number Insured Name Patient Relationship to Insured Coverage Start Date Coverage End Date Medicare [employer] [address] [place] [address] [id number] Reed Mallory Self - patient is the insured [employer] [address] [place] [address] Reed Mallory Self - patient is the [...]
--- OUTSIDE RECORDS SUMMARY | 2024-07-06 08:07 | XMS_ITS ---
Author Organization [facility] Address [address] [place] [address] Care Team Providers Care Tool And Die Inspector Name Role Phone Josue Simmons MD Primary Care Provider Unavailab melinda Lyn Lund Unavailable [phone] Allergies Allergen (clinical drug ingredient) Drug/Non Drug [...] 04/23/2024 Encounters Encounter Location Date Provider Diagnosis [facility] [address] [place] [address] 04/23/2024 Lyn Lund Plan Of Treatment No Information Progress Notes * Reed MALLORY HDOB:1940 (83 yo M)Acc No.[id number]:04/23/2024 Progress Notes Patient:Reed VANCE Provider:?Lyn Lund DPM :1940???Age:83 Y???Sex:Male Chu e:04/23/2024 Address:[address] [place], [place] [id number] Pcp:Josue Simmons MD Subjective: * Chief Complaints: [...] Lund DPM Date:?2023 Generated for Yokasta palacios/Ilda/Cocoitting on:?07/06/2024 08:06 AM EST
--- OUTSIDE RECORDS SUMMARY | 2024-07-06 08:07 | XMS_ITS ---
Author Organization [facility] Address [address] [place] [address] Care Team Providers Care Construction Equipment Technician Name Role Phone Josue Simmons MD Primary Care Provider Unavailab Lyn Damico [phone] REASON FOR VISIT 04/23/24 Encounters Encounter Location Date Provider Diagnosis [facility] [address] [place] [address] 04/02/2024 Lyn Lund Plan Of Treatment No Information Progress Notes * Reed MALLORY HDOB:1940 (83 yo M)Acc No.[id number]:04/02/2024 Patient:?Reed Mallory :1940???Age:83 Y???Sex:Male Address:[address] [place] [address] * true * Date:? Generated for Printi ng/Faphilly/eTransmitting on:?07/06/2024 08:06 AM EST
== END 2024-07-06 08:01 | disposition home or self-care (01) ==
LOC: HO.HOSX 08:00
DX: S82.62XA Displaced fracture of lateral malleolus of left fibula, initial encounter for closed fracture (principal)
CPT/HCPCS: 73610; 99212

== ENCOUNTER 2024-07-06 13:26 | Outpatient (AMB) | payer OTHER, SELFPAY ==
--- OUTSIDE RECORDS SUMMARY | 2024-07-06 13:28 | XMS_ITS | Continuity of Care Document ---
Author Name [facility] Organization [facility] Care Team Providers Care Flaking Roll Operator Name Role Phone [facility] Unavailable Unavailable Problems Combined list of problems from Department of Defense and Veterans Affairs facilities. It does not include entries that were removed or entered in error. Problem Status Onset Date Problem Type Date of Resolution Comments Source Chronic dermatitis Active 023 Condition Oct 05, 2022 Entered By: BYRON BARRON Comment: referred to dermatology [facility] Chest Pain (SCT 10455409) Active Condition Jan 02, 2022 Entered By: BYRON BARRON Comment: ordered stress test [facility] COPD - Chronic Obstructive Pulmonary Disease (SCT 13885524) Active Condition Dec 28, 2021 Entered By: BYRON BARRON Comment: on inhalers [facility] Cataract Active Condition Oct 12, 2020 Entered By: BYRON BARRON Comment: referred for surgery [facility] HTN - Hypertension (SCT 06954950) Active Condition Oct 21, 2020 Entered By: BYRON BARRON Comment: treated witn medication [facility] Hypercholesterolemia (SCT 06865239) Active Condition Oct 21, 2020 Entered By: [...] of uncertain behavior of skin Active Diagnosis [facility] Diagnosis: ICD-10-CM Z13.89 Encounter for screening for other disorder Active Diagnosis [facility] Diagnosis: ICD-10-CM R21 Rash and other nonspecific skin eruption Active Diagnosis [facility] Diagnosis: ICD-10-CM Z23 Encounter for immunization Active Diagnosis [facility] Diagnosis: ICD-10-CM H67.3 Otitis media in diseases classified elsewhere, bilateral Active Diagnosis [facility] [facility] Medications Combined list of outpatient medications [...] TWICE DAILY FOR INFECTIO N ORAL 11/15/2023 [id number] MAUREEN BARRON 2023 20 [facility] ASPIRIN 81MG TAB,CHEWABL E CHEW ONE TABLET BY MOUTH ONCE DAILY ORAL ACTIVE JANINE HAMMOND R 2021 [facility] ATORVASTATI N CA 80MG TAB TAKE ONE TABLET BY MOUTH AT BEDTIME ORAL ACTIVE 06/26/2025 [id number] MAUREEN BARRON PAIGE D 2023 [facility] ATORVASTATI N CA 80MG TAB TAKE ONE TABLET BY MOUTH AT BEDTIME ORAL DISCONT INUED 06/19/2024 [id number] MOHAMUD ARGUETA AV 2022 90 [facility] ATORVASTATI N CA 80MG TAB TAKE ONE TABLET BY MOUTH ONCE DAILY FOR CHOLESTE ROL ORAL DISCONT INUED 03/07/2024 [id number] MAUREEN BARROND D [address] [facility] CEPHALEXIN 500MG CAP TAKE ONE CAPSULE BY MOUTH EVERY 8 HOURS FOR INFECTIO N ORAL 04/04/2024 [id number] 4 MAMTA STERN [address] [facility] EZETIMIBE 10MG TAB TAKE ONE TABLET BY MOUTH ONCE DAILY TO LOWER CHOLESTE ROL ORAL ACTIVE 06/26/2025 [id number] 4 MAUREEN BARRON PAIGE D [address] [facility] EZETIMIBE 10MG TAB TAKE ONE TABLET BY MOUTH ONCE DAILY TO LOWER CHOLESTE ROL ORAL DISCONT INUED 06/19/2024 [id number] MOHAMUD ARGUETA AV 2022 90 [facility] FLUTICASONE 250MCG/SALM ETEROL 50MCG INHL,ORAL,D ISKUS,60 INHALE 1 PUFF BY MOUTH TWICE DAILY - RINSE MOUTH AFTER USE RESPIR ATORY (INHAL ATION) 03/07/2024 [id number] MAUREEN BARRON D 2022 3 [facility] FLUTICASONE PROPIONATE 50MCG/SPRAY SOLN,NASAL, 16GM INSTILL 1 SPRAY INTO EACH NOSTRIL ONCE DAILY NEEDED FOR NASAL IRRITATI ON/INFLA MMATION NASAL 04/15/2024 [id number] MAUREEN BARRON PAIGE D [address] [facility] HYDROCHLORO THIAZIDE 25MG TAB TAKE ONE TABLET BY MOUTH ONCE DAILY TO PREVENT FLUID/CO NTROL BLOOD PRESSURE ORAL DISCONT INUED 03/07/2024 [id number] 3 MAUREEN BARRON PAIGE D [address] [facility] HYDROCHLORO THIAZIDE 25MG TAB TAKE ONE TABLET BY MOUTH ONCE DAILY ORAL 06/19/2024 [id number] MOHAMUD ARGUETA AV 2023 90 [facility] METOPROLOL SUCCINATE 50MG TAB,SA TAKE ONE TABLET BY MOUTH ONCE DAILY FOR BLOOD PRESSURE /HEART ORAL ACTIVE 06/26/2025 [id number] 4 MAUREEN BARRON PAIGE D [address] [facility] METOPROLOL SUCCINATE 50MG TAB,SA TAKE ONE TABLET BY MOUTH ONCE DAILY FOR BLOOD PRESSURE /HEART ORAL DISCONT INUED 06/19/2024 [id number] KENDALL,MOHAMUD AV 2022 90 [facility] TRIAMCINOLO NE ACETONIDE 0.1% CREAM,TOP APPLY A MODERATE AMOUNT TOPICALL Y TWICE DAILY NEEDED FOR ITCHING TOPICA L ACTIVE 10/24/2024 [id number] 4 MAUREEN BARRON PAIGE D 2023 [facility] Allergies, Adverse Reactions, Alerts Combined list of allergies from Department of Defense and Veterans Affairs facilities. It does not include entries that were removed or entered in error. Substance Category Reaction Severity Reaction type Status Date Reported Comments Source LIDOCAINE Propensity to adverse reactions to drug (finding) Itching MODERATE active 2 [facility] NOVOCAIN Propensity to adverse reactions to drug (finding) Feeling agitated active 8 [facility] PROCAINE Propensity to adverse reactions to drug (finding) active 2 [facility] Immunizations Combined list of available immunizations from the Department of Defense and Veterans Affairs facilities. Immunization Series Date Given Administered By Site Reaction Lot Number CVX Code Drug Fringing Machine Operator Status Comments Source COVID-19 (MODERNA), MRNA, LNP-S, PF, 50 MCG/0.5 ML (AGES 12+ YEARS) 7 2023 ALMA MAHER LEFT DELTO ID [id number] 312 complet ed [facility] INFLUENZA, HIGH-DOSE, TRIVALENT, PF 2023 ALMA MAHER LEFT DELTO ID [id number] 135 complet ed [facility] RSV, BIVALENT, PROTEIN SUBUNIT RSVPREF, DILUENT RECONSTITUTED , 0.5 ML, PF 1 2023 GRETCHEN ANDRADE LEFT DELTO ID [id number] 305 complet ed [facility] COVID-19 (MODERNA), MRNA, LNP-S, PF, 50 MCG/0.5 ML (AGES 12+ YEARS) 1 2023 GRETCHEN ANDRADE E LEFT DELTO ID [id number] 312 complet ed [facility] INFLUENZA, HIGH-DOSE, QUADRIVALENT 2022 JERRI SHAIKH LEFT DELTO ID [id number] 197 complet ed [facility] COVID-19 (MODERNA), MRNA, LNP-S, BIVALENT BOOSTER, PF, 50 MCG/0.5 ML OR 25MCG/0.25 ML DOSE 2021 JERRI SHAIKH ER M LEFT DELTO ID [id number] 229 complet ed [facility] INFLUENZA VACCINE, QUADRIVALENT, ADJUVANTED 2021 205 complet ed [facility] COVID-19 (MODERNA), MRNA, LNP-S, PF, 100 MCG/0.5ML DOSE OR 50 MCG/0.25ML DOSE 3 2021 207 complet ed MOD; [id number] ; 2 [facility] PNEUMOCOCCAL CONJUGATE PCV20, POLYSACCHARID E [id number] CONJUGATE, ADJUVANT, PF 2021 216 complet ed [facility] COVID-19 (MODERNA), MRNA, LNP-S, PF, 100 MCG OR 50 MCG DOSE 3 2020 207 complet ed MOD; [id number]; 2 [facility] INFLUENZA, UNSPECIFIED FORMULATION 2020 88 complet ed [facility] TDAP 2020 115 complet ed [facility] COVID-19 (MODERNA), MRNA, LNP-S, PF, 100 MCG/0.5 ML DOSE 2 2020 207 complet ed MOD; [id number]; 1 [facility] COVID-19 (MODERNA), MRNA, LNP-S, PF, 100 MCG/0.5 ML DOSE 1 2020 207 complet ed MOD; [id number]; 1 [facility] [...] DOSE SEASONAL 2017 135 complet ed Partner: [facility]. Administe red by: ARLET BOLTON (XWR=[phone] [id number]). Partner 0 Lot#: [id number] Mfr: [employer] Pasteur; Dosage: 0.5 [facility] PNEUMOCOCCAL POLYSACCHARID E PPV23 2016 33 complet ed Partner: [employer]. Administe red by: ARLET GUPTALANE CHE (EWG=[phone]). Partner 0 Lot#: [id number] Mfr: Merck; Dosage: 0.5 [facility] INFLUENZA, HIGH DOSE SEASONAL 2016 135 complet ed Partner: [employer]. Administe red by: ARLET BOLTON (CUZ=[id number]). Partner 0 Lot#: [id number] Mfr: Sanofi Pasteur; Dosage: 0.5 [facility] Results Combined list of recent chemistry, [...] Apr 04, 2024 05:53 PM Reporting Lab: [address] [address] Performing Lab: [address] [address] [facility] BASIC METABOLI C PANEL (fasting ) GLUCOSE [MASS/VOLU ME] IN SERUM OR PLASMA 93 mg/dL 65 - 100 04/07 Specimen Type: SERUM No comment entered. Ordering Provider: JAMILA BARRON Report Released Date/Time: Apr 04, 2024 05:53 PM Reporting Lab: [facility] [address] Performing Lab: [facility] [address] [address] [facility] BASIC METABOLI C PANEL (fasting ) SODIUM [MOLES/VOL UME] IN SERUM OR PLASMA 139 mmol/L 135 - 145 04/07 Specimen Type: SERUM No comment entered. Ordering Provider: JAMILA BARRON Report Released Date/Time: Apr 04, 2024 05:53 PM Reporting Lab: [facility] [address] Performing Lab: [facility] [address] [address] [facility]L [facility] BASIC METABOLI C PANEL (fasting ) POTASSIUM [MOLES/VOL UME] IN SERUM OR PLASMA 3.9 mmol/L 3.5 - 5.0 04/07 Specimen Type: SERUM No comment entered. Ordering Provider: JAMILA BARRON Report Released Date/Time: Apr 04, 2024 05:53 PM Reporting Lab: [facility] [address] [address] Performing Lab: [facility] [address] [address] [facility] BASIC METABOLI C PANEL (fasting ) CHLORIDE [MOLES/VOL UME] IN SERUM OR PLASMA 102 mmol/L 100 - 110 04/07 Specimen Type: SERUM No comment entered. Ordering Provider: JAMILA BARRON Report Released Date/Time: Apr 04, 2024 05:53 PM Reporting Lab: [facility] [address] [address] Performing Lab: [facility]ENTERTRN [facility] [address] [facility] BASIC METABOLI C PANEL (fasting ) CARBON DIOXIDE, TOTAL [MOLES/VOL UME] IN SERUM OR PLASMA 26 meq/L 20 - 30 04/07 Specimen Type: SERUM No comment entered. Ordering Provider: JAMILA BARRON Report Released Date/Time: Apr 04, 2024 05:53 PM Reporting Lab: [facility] [address] [address] Performing [facility]: [facility] [address] [address] [facility] BASIC METABOLI C PANEL (fasting ) CREATININE [MASS/VOLU ME] IN SERUM OR PLASMA 0.92 mg/dL 0.50 - 1.40 04/07 Specimen Type: SERUM No comment entered. Ordering Provider: JAMILA BARRON Report Released Date/Time: Apr 04, 2024 05:53 PM Reporting Lab: [facility]USE[facility] [address] [facility] [address] Performing Lab: [facility]ENTERRL TRN [facility]ITALUSE[facility] [address] [facility] [address] [facility] BASIC METABOLI C PANEL (fasting ) GLOMERULAR FILTRATION RATE/1.73 SQ M.PREDICTE D [VOLUME RATE/AREA] IN SERUM, PLASMA OR BLOOD BY CREATININE -BASED FORMULA (CKD-EPI 2020) 82 mL/min 60 04/07 Specimen Type: SERUM No comment entered. Ordering Provider: JAMILA BARRON Report Released Date/Time: Apr 04, 2024 05:53 PM Reporting Lab: [facility] [address] [address] Performing Lab: [facility] [address] [address] [facility] CBC AND DIFF (AUTO) LEUKOCYTES [#/VOLUME] IN BLOOD BY AUTOMATED COUNT 7.77 10*3/uL 4.50 - 11.00 04/07 Specimen Type: BLOOD No comment entered. Ordering Provider: JAMILA BARRON Report Released Date/Time: Apr 04, 2024 05:53 PM Reporting Lab: [facility] [address] Performing Lab: [facility]L [facility]ITAL[facility] [address] [facility] CBC AND DIFF (AUTO) ERYTHROCYT ES [#/VOLUME] IN BLOOD BY AUTOMATED COUNT 4.29 10*6/uL 4.23 - 5.66 04/07 Specimen Type: BLOOD No comment entered. Ordering Provider: JAMILA BARRON Report Released Date/Time: Apr 04, 2024 05:53 PM Reporting Lab: [facility] [address] [facility] [address] Performing Lab: [facility] [address] [facility] [address] [facility] CBC AND DIFF (AUTO) HEMOGLOBIN [MASS/VOLU ME] IN BLOOD 14.2 g/dL 12.8 - 17 04/07 Specimen Type: BLOOD No comment entered. Ordering Provider: JAMILA BARRON Report Released Date/Time: Apr 04, 2024 05:53 PM Reporting Lab: [facility] [place] [facility] [address] [facility] [address] Performing Lab: [facility] [place] [facility] [address] [facility] [address] [facility] CBC AND DIFF (AUTO) HEMATOCRIT [VOLUME FRACTION] OF BLOOD BY AUTOMATED COUNT 41.1 39.2 - 50.4 04/07 Specimen Type: BLOOD No comment entered. Ordering Provider: JAMILA BARRON Report Released Date/Time: Apr 04, 2024 05:53 PM Reporting Lab: [facility] [place] [facility] [address] [facility] [address] Performing Lab: [facility] [place] [facility] [address] [facility] [address] [facility] CBC AND DIFF (AUTO) MCV [ENTITIC VOLUME] BY AUTOMATED COUNT 95.8 fL 82 - 99 04/07 Specimen Type: BLOOD No comment entered. Ordering Provider: JAMILA BARRON Report Released Date/Time: Apr 04, 2024 05:53 PM Reporting Lab: [facility] [place] [facility] [address] [facility] [address] Performing Lab: [facility] [place] [facility] [address] [facility] [address] [facility] CBC AND DIFF (AUTO) MCHC [MASS/VOLU ME] BY AUTOMATED COUNT 34.5 g/dL 30.8 - 35.1 04/07 Specimen Type: BLOOD No comment entered. Ordering Provider: JAMILA BARRON Report Released Date/Time: Apr 04, 2024 05:53 PM Reporting Lab: [facility] [address] [facility] [address] Performing Lab: [facility] [place] [facility] [address] [facility] [address] [facility] CBC AND DIFF (AUTO) PLATELETS [#/VOLUME] IN BLOOD BY AUTOMATED COUNT 184 10*3/uL 140 - 360 04/07 Specimen Type: BLOOD No comment entered. Ordering Provider: JAMILA BARRON Report Released Date/Time: Apr 04, 2024 05:53 PM Reporting Lab: [facility] [place] [facility] [address] [facility] [address] Performing Lab: [facility] [place] [facility] [address] [facility] [address] [facility] CBC AND DIFF (AUTO) ERYTHROCYT E DISTRIBUTI ON WIDTH [RATIO] BY AUTOMATED COUNT 13.1 12.0 - 16.0 04/07 Specimen Type: BLOOD No comment entered. Ordering Provider: JAMILA BARRON Report Released Date/Time: Apr 04, 2024 05:53 PM Reporting Lab: [facility] [place] [facility] [address] [facility] [address] Performing Lab: [facility] [place] [facility] [address] [facility] [address] [facility] CBC AND DIFF (AUTO) MONOCYTES [#/VOLUME] IN BLOOD BY AUTOMATED COUNT 0.98 10*3/uL 0.30 - 1.10 04/07 Specimen Type: BLOOD No comment entered. Ordering Provider: JAMILA BARRON Report Released Date/Time: Apr 04, 2024 05:53 PM Reporting Lab: [facility] [place] [facility] [address] [facility] [address] Performing Lab: [facility] [place] [facility] [address] [facility] [address] [facility] CBC AND DIFF (AUTO) MCH [ENTITIC MASS] BY AUTOMATED COUNT 33.1 pg 26.2 - 32.6 04/07 H Specimen Type: BLOOD No comment entered. Ordering Provider: JAMILA BARRON Report Released Date/Time: Apr 04, 2024 05:53 PM Reporting Lab: [facility] [facility] [address] [facility] [address] Performing Lab: [facility] [place] [facility] [address] [facility] [address] [facility] CBC AND DIFF (AUTO) NEUTROPHIL S/100 LEUKOCYTES IN BLOOD BY AUTOMATED COUNT 52.3 43.7 - 75.8 04/07 Specimen Type: BLOOD No comment entered. Ordering Provider: JAMILA BARRON Report Released Date/Time: Apr 04, 2024 05:53 PM Reporting Lab: [place] [facility] [place] [address] [address] Performing Lab: [facility] [address] [address] [facility] CBC AND DIFF (AUTO) LYMPHOCYTE S/100 LEUKOCYTES IN BLOOD BY AUTOMATED COUNT 31.7 14.0 - 42.3 04/07 Specimen Type: BLOOD No comment entered. Ordering Provider: JAMILA BARRON Report Released Date/Time: Apr 04, 2024 05:53 PM Reporting Lab: [facility] [address] [address] Performing Lab: [facility] [address] [address] [facility] CBC AND DIFF (AUTO) MONOCYTES/ 100 LEUKOCYTES IN BLOOD BY AUTOMATED COUNT 12.6 5.1 - 13.7 04/07 Specimen Type: BLOOD No comment entered. Ordering Provider: JAMILA BARRON Report Released Date/Time: Apr 04, 2024 05:53 PM Reporting Lab: [facility] [place] [address] [address] Performing Lab: [facility] [address] [facility] [address] [facility] [facility] CBC AND DIFF (AUTO) EOSINOPHIL S/100 LEUKOCYTES IN BLOOD BY AUTOMATED COUNT 2.3 0.4 - 6.8 04/07 Specimen Type: BLOOD No comment entered. Ordering Provider: JAMILA BARRON Report Released Date/Time: Apr 04, 2024 05:53 PM Reporting Lab: [facility] [place] [facility] [address] [facility] [address] Performing Lab: [facility] [place] [facility] [address] [facility] [address] [facility] [facility] CBC AND DIFF (AUTO) BASOPHILS/ 100 LEUKOCYTES IN BLOOD BY AUTOMATED COUNT 0.6 0.1 - 2.0 04/07 Specimen Type: BLOOD No comment entered. Ordering Provider: JAMILA BARRON Report Released Date/Time: Apr 04, 2024 05:53 PM Reporting Lab: [facility] [place] [address] [address] Performing Lab: [facility] [place] [address] [address] [facility] [facility] CBC AND DIFF (AUTO) NEUTROPHIL S [#/VOLUME] IN BLOOD BY AUTOMATED COUNT 4.06 10*3/uL 2.20 - 7.60 04/07 Specimen Type: BLOOD No comment entered. Ordering Provider: JAMILA BARRON Report Released Date/Time: Apr 04, 2024 05:53 PM Reporting Lab: [facility] [place] [facility] [address] [facility] [address] Performing Lab: [facility] [place] [address] [address] [facility] CBC AND DIFF (AUTO) LYMPHOCYTE S [#/VOLUME] IN BLOOD BY AUTOMATED COUNT 2.46 10*3/uL 1.00 - 3.20 04/07 Specimen Type: BLOOD No comment entered. Ordering Provider: JAMILA BARRON Report Released Date/Time: Apr 04, 2024 05:53 PM Reporting Lab: [facility] [place] [facility] [address] [facility] [address] Performing Lab: [facility] [place] [facility] [address] [facility] [address] [facility] CBC AND DIFF (AUTO) EOSINOPHIL S [#/VOLUME] IN BLOOD BY AUTOMATED COUNT 0.18 10*3/uL 0.03 - 0.44 04/07 Specimen Type: BLOOD No comment entered. Ordering Provider: JAMILA BARRON Report Released Date/Time: Apr 04, 2024 05:53 PM Reporting Lab: [facility] [place] [facility] [address] [facility] [address] Performing Lab: [facility] [place] [address] [address] [facility] [place] [facility] CBC AND DIFF (AUTO) BASOPHILS [#/VOLUME] IN BLOOD BY AUTOMATED COUNT 0.05 10*3/uL 0.01 - 0.13 04/07 Specimen Type: BLOOD No comment entered. Ordering Provider: JAMILA BARRON Report Released Date/Time: Apr 04, 2024 05:53 PM Reporting Lab: [facility] [place] [address] [address] Performing Lab: [facility] [place] [address] [address] [facility] CBC AND DIFF (AUTO) IMMATURE GRANULOCYT ES/100 LEUKOCYTES IN BLOOD BY AUTOMATED COUNT 0.5 0.0 - 0.7 04/07 Specimen Type: BLOOD No comment entered. Ordering Provider: JAMILA BARRON Report Released Date/Time: Apr 04, 2024 05:53 PM Reporting Lab: [facility] [place] [address] [address] Performing Lab: [facility] [place] [address] [address] [facility] [place] [facility] CBC AND DIFF (AUTO) IMMATURE GRANULOCYT ES [#/VOLUME] IN BLOOD 0.04 10*3/uL 0.00 - 0.06 04/07 Specimen Type: BLOOD No comment entered. Ordering Provider: JAMILA BARRON Report Released Date/Time: Apr 04, 2024 05:53 PM Reporting Lab: [facility] [place] [facility] [address] [facility] [address] Performing Lab: [facility] [place] [facility] [address] [facility] [address] [facility] [place] [facility] CBC AND DIFF (AUTO) NRBC % 0.0 0.0 - 0.0 04/07 Specimen Type: BLOOD No comment entered. Ordering Provider: JAMILA BARRON Report Released Date/Time: Apr 04, 2024 05:53 PM Reporting Lab: [facility] [place] [facility] [address] [facility] [address] Performing Lab: [facility] [place] [address] [address] [facility] CBC AND DIFF (AUTO) NRBC, ABS 0.00 10*3/uL 0.00 - 0.00 04/07 Specimen Type: BLOOD No comment entered. Ordering Provider: JAMILA BARRON Report Released Date/Time: Apr 04, 2024 05:53 PM Reporting Lab: [facility] [place] [address] [address] Performing Lab: [facility] [place] [address] [address] [facility] LIPID PANEL FASTING CHOLESTERO L [MASS/VOLU ME] IN SERUM OR PLASMA 139 mg/dL 04/07 Specimen Type: SERUM No comment entered. Ordering Provider: JAMILA BARRON Report Released Date/Time: Apr 04, 2024 05:53 PM Reporting Lab: [facility] [place] [facility] [address] [facility] [address] Performing Lab: [facility] [place] [address] [address] [facility] [place] [facility] LIPID PANEL FASTING TRIGLYCERI DE [MASS/VOLU ME] IN SERUM OR PLASMA 136 mg/dL 0 - 150 04/07 Specimen Type: SERUM No comment entered. Ordering Provider: JAMILA BARRON Report Released Date/Time: Apr 04, 2024 05:53 PM Reporting Lab: [facility] [place] [facility] [address] [facility] [address] Performing Lab: [facility] [place] [facility] [address] [facility] [address] [facility] [place] [facility] LIPID PANEL FASTING CHOLESTERO L IN LDL [MASS/VOLU ME] IN SERUM OR PLASMA BY CALCULAMARCIE N 72 mg/dL 0 - 129 04/07 Specimen Type: SERUM No comment entered. Ordering Provider: JAMILA BARRON Report Released Date/Time: Apr 04, 2024 05:53 PM Reporting Lab: [facility] [place] [facility] [address] [facility] [address] Performing Lab: [facility] [place] [address] [address] [facility] [place] [facility] LIPID PANEL FASTING CHOLESTERO L.TOTAL/CH OLESTEROL IN HDL [MASS RATIO] IN SERUM OR PLASMA 3.5 04/07 Specimen Type: SERUM No comment entered. Ordering Provider: JAMILA BARRON Report Released Date/Time: Apr 04, 2024 05:53 PM Reporting Lab: [facility] [place] [facility] [address] [facility] [address] Performing Lab: [facility] [place] [facility] [address] [facility] [address] [facility] [place] [facility] LIPID PANEL FASTING CHOLESTERO L IN HDL [MASS/VOLU ME] IN SERUM OR PLASMA 40 mg/dL 40 - 60 04/07 Specimen Type: SERUM No comment entered. Ordering Provider: JAMILA BARRON Report Released Date/Time: Apr 04, 2024 05:53 PM Reporting Lab: [facility] [place] [facility] [address] [facility] [address] Performing Lab: [facility] [place] [facility] [address] [facility] [address] [facility] [place] [facility] LIVER FUNCTION PROTEIN [MASS/VOLU ME] IN SERUM OR PLASMA 6.8 g/dL 6.0 - 8.3 04/07 Specimen Type: SERUM No comment entered. Ordering Provider: JAMILA BARRON Report Released Date/Time: Apr 04, 2024 05:53 PM Reporting Lab: [place] [facility] [facility] [address] [facility] [address] Performing Lab: [place] [facility] [facility] [address] [facility] [address] [facility] [place] [facility] LIVER FUNCTION ALBUMIN [MASS/VOLU ME] IN SERUM OR PLASMA 4.0 g/dL 3.5 - 5.0 04/07 Specimen Type: SERUM No comment entered. Ordering Provider: JAMILA BARRON Report Released Date/Time: Apr 04, 2024 05:53 PM Reporting Lab: [place] [facility] [address] Performing Lab: [place] [address] [address] [facility] LIVER FUNCTION ALKALINE PHOSPHATAS E [ENZYMATIC ACTIVITY/V OLUME] IN SERUM OR PLASMA 118 U/L 40 - 150 04/07 Specimen Type: SERUM No comment entered. Ordering Provider: JAMILA BARRON Report Released Date/Time: Apr 04, 2024 05:53 PM Reporting Lab: [place] [facility] [place] [address] [address] Performing Lab: [facility] [place] [address] [address] [facility] [place] [facility] LIVER FUNCTION ASPARTATE AMINOTRANS FERASE [ENZYMATIC ACTIVITY/V OLUME] IN SERUM OR PLASMA 30 U/L 5 - 34 04/07 Specimen Type: SERUM No comment entered. Ordering Provider: JAMILA BARRON Report Released Date/Time: Apr 04, 2024 05:53 PM Reporting Lab: [facility] [place] [address] [address] Performing Lab: [facility] [place] [place] [address] [place] [address] [facility] [place] [facility] LIVER FUNCTION ALANINE AMINOTRANS FERASE [ENZYMATIC ACTIVITY/V OLUME] IN SERUM OR PLASMA 23 U/L 04/07 Specimen Type: SERUM No comment entered. Ordering Provider: JAMILA BARRON Report Released Date/Time: Apr 04, 2024 05:53 PM Reporting Lab: [facility] [place] [place] [address] [address] Performing Lab: [facility] [place] [place] [address] [address] [facility] [place] [facility] LIVER FUNCTION BILIRUBIN. TOTAL [MASS/VOLU ME] IN SERUM OR PLASMA 1.0 mg/dL 0.2 - 1.2 04/07 Specimen Type: SERUM No comment entered. Ordering Provider: JAMILA BARRON Report Released Date/Time: Apr 04, 2024 05:53 PM Reporting Lab: [facility] [place] [address] [address] Performing Lab: [place] [facility] [place] [place] [address] [address] [facility] [place] [facility] TSH THYROTROPI N [UNITS/VOL UME] IN SERUM OR PLASMA 2.34 u[IU]/mL 0.35 - 5.00 04/07 Specimen Type: SERUM No comment entered. Ordering Provider: JAMILA BARRON Report Released Date/Time: Apr 04, 2024 05:53 PM Reporting Lab: [facility] [place] [address] [address] Performing Lab: [facility] [place] [place] [address] [address] [facility] [place] [facility] URINALYS IS CLEAN CATCH COLOR OF URINE Yellow 04/07 Specimen Type: URINE Comment: If Glucose = >500 and Ketones are positive, please alert the Physician. Ordering Provider: JAMILA BARRON Report Released Date/Time: Apr 04, 2024 05:53 PM Reporting Lab: [facility] [place] [address] [address] Performing Lab: [facility] [place] [facility] [address] [facility] [address] [facility] [place] [facility] URINALYS IS CLEAN CATCH APPEARANCE OF URINE Clear 04/07 Specimen Type: URINE Comment: If Glucose = >500 and Ketones are positive, please alert the Physician. Ordering Provider: JAMILA BARRON Report Released Date/Time: Apr 04, 2024 05:53 PM Reporting Lab: [facility] [place] [facility] [address] [facility] [address] Performing Lab: [facility] [place] [facility] [address] [facility] [address] [facility] [place] [facility] URINALYS IS CLEAN CATCH GLUCOSE [MASS/VOLU ME] IN URINE Normalmg /dL 04/07 Specimen Type: URINE Comment: If Glucose = >500 and Ketones are positive, please alert the Physician. Ordering Provider: JAMILA BARRON Report Released Date/Time: Apr 04, 2024 05:53 PM Reporting Lab: [facility] [place] [facility] [address] [facility] [address] Performing Lab: [facility] [place] [facility] [address] [facility] [address] [facility] [place] [facility] URINALYS IS CLEAN CATCH KETONES [MASS/VOLU ME] IN URINE BY TEST STRIP NEGATIVE mg/dL 04/07 Specimen Type: URINE Comment: If Glucose = >500 and Ketones are positive, please alert the Physician. Ordering Provider: JAMILA BARRON Report Released Date/Time: Apr 04, 2024 05:53 PM Reporting Lab: [facility] [place] [facility] [address] [facility] [address] Performing Lab: [place] [facility] [facility] [address] [facility] [address] [facility] [place] [facility] URINALYS IS CLEAN CATCH ERYTHROCYT ES [PRESENCE] IN URINE SEDIMENT BY LIGHT MICROSCOPY NEGATIVE mg/dL 04/07 Specimen Type: URINE Comment: If Glucose = >500 and Ketones are positive, please alert the Physician. Ordering Provider: JAMILA BARRON Report Released Date/Time: Apr 04, 2024 05:53 PM Reporting Lab: [facility] [place] [facility] [address] [facility] [address] Performing Lab: [facility] [place] [facility] [address] [facility] [address] [facility] [place] [facility] URINALYS IS CLEAN CATCH PROTEIN [MASS/VOLU ME] IN URINE BY TEST STRIP 10 mg/dL 04/07 Specimen Type: URINE Comment: If Glucose = >500 and Ketones are positive, please alert the Physician. Ordering Provider: JAMILA BARRON Report Released Date/Time: Apr 04, 2024 05:53 PM Reporting Lab: [facility] [place] [facility] [address] [facility] [address] Performing Lab: [place] [facility] [address] [facility] [address] [facility] [place] [facility] URINALYS IS CLEAN CATCH NITRITE [PRESENCE] IN URINE NEGATIVE mg/dL 04/07 Specimen Type: URINE Comment: If Glucose = >500 and Ketones are positive, please alert the Physician. Ordering Provider: JAMILA BARRON Report Released Date/Time: Apr 04, 2024 05:53 PM Reporting Lab: [facility] [place] [facility] [address] [facility] [address] Performing Lab: [facility] [place] [facility] [address] [facility] [address] [facility] [place] [facility] URINALYS IS CLEAN CATCH BILIRUBIN. TOTAL [PRESENCE] IN URINE NEGATIVE mg/dL 04/07 Specimen Type: URINE Comment: If Glucose = >500 and Ketones are positive, please alert the Physician. Ordering Provider: JAMILA BARRON Report Released Date/Time: Apr 04, 2024 05:53 PM Reporting Lab: [facility] [facility] [address] [facility] [address] Performing Lab: [facility] [place] [facility] [address] [facility] [address] [facility] [place] [facility] URINALYS IS CLEAN CATCH SPECIFIC GRAVITY OF URINE BY REFRACTOME TRY 1.024 1.016 - 1.022 04/07 H Specimen Type: URINE Comment: If Glucose = >500 and Ketones are positive, please alert the Physician. Ordering Provider: JAMILA BARRON Report Released Date/Time: Apr 04, 2024 05:53 PM Reporting Lab: [facility] [place] [facility] [address] [facility] [address] Performing Lab: [facility] [place] [facility] [address] [facility] [address] [facility] [place] [facility] URINALYS IS CLEAN CATCH PH OF URINE BY TEST STRIP 7.0 5.0 - 9.0 04/07 Specimen Type: URINE Comment: If Glucose = >500 and Ketones are positive, please alert the Physician. Ordering Provider: JAMILA BARRON Report Released Date/Time: Apr 04, 2024 05:53 PM Reporting Lab: [facility] [place] [facility] [address] [facility] [address] Performing Lab: [place] [facility] [facility] [address] [facility] [address] [facility] [place] [facility] URINALYS IS CLEAN CATCH UROBILINOG EN [MASS/VOLU ME] IN URINE BY TEST STRIP Normalmg /dL <2.0 - 2.0 04/07 Specimen Type: URINE Comment: If Glucose = >500 and Ketones are positive, please alert the Physician. Ordering Provider: JAMILA BARRON Report Released Date/Time: Apr 04, 2024 05:53 PM Reporting Lab: [facility] [place] [facility] [address] [facility] [address] Performing Lab: [facility] [place] [facility] [address] [facility] [address] [facility] [place] [facility] URINALYS IS CLEAN CATCH LEUKOCYTE ESTERASE [PRESENCE] IN URINE BY TEST STRIP NEGATIVE 04/07 Specimen Type: URINE Comment: If Glucose = >500 and Ketones are positive, please alert the Physician. Ordering Provider: JAMILA BARRON Report Released Date/Time: Apr 04, 2024 05:53 PM Reporting Lab: [facility] [place] [facility] [address] [facility] [address] Performing Lab: [facility] [place] [facility] [address] [facility] [address] [facility] [facility] BASIC METABOLI C PANEL (fasting ) UREA NITROGEN [MASS/VOLU ME] IN SERUM OR PLASMA 16 mg/dL 7 - 25 10/07 Specimen Type: SERUM No comment entered. Ordering Provider: JAMILA BARRON Report Released Date/Time: Oct 05, 2023 11:58 PM Reporting Lab: [place] [facility] [address] [facility] [address] Performing Lab: [place] [facility] [address] [facility] [address] [facility] [facility] BASIC METABOLI C PANEL (fasting ) GLUCOSE [MASS/VOLU ME] IN SERUM OR PLASMA 102 mg/dL 65 - 100 10/07 H Specimen Type: SERUM No comment entered. Ordering Provider: JAMILA BARRON Report Released Date/Time: Oct 05, 2023 11:58 PM Reporting Lab: [place] [facility] [facility] [address] [facility] [address] Performing Lab: [facility] [place] [facility] [address] [facility] [address] [facility] [place] [facility] BASIC METABOLI C PANEL (fasting ) SODIUM [MOLES/VOL UME] IN SERUM OR PLASMA 143 mmol/L 135 - 145 10/07 Specimen Type: SERUM No comment entered. Ordering Provider: JAMILA BARRON Report Released Date/Time: Oct 05, 2023 11:58 PM Reporting Lab: [facility] [facility] [address] [facility] [address] Performing Lab: [facility] [place] [facility] [address] [facility] [address] [facility] [place] [facility] BASIC METABOLI C PANEL (fasting ) POTASSIUM [MOLES/VOL UME] IN SERUM OR PLASMA 4.4 mmol/L 3.5 - 5.0 10/07 Specimen Type: SERUM No comment entered. Ordering Provider: JAMILA BARORN Report Released Date/Time: Oct 05, 2023 11:58 PM Reporting Lab: [place] [facility] [address] [facility] [address] Performing Lab: [facility] [address] [address] [facility] [place] [facility] BASIC METABOLI C PANEL (fasting ) CHLORIDE [MOLES/VOL UME] IN SERUM OR PLASMA 106 mmol/L 100 - 110 10/07 Specimen Type: SERUM No comment entered. Ordering Provider: JAMILA BARRON Report Released Date/Time: Oct 05, 2023 11:58 PM Reporting Lab: [place] [facility] [facility] [address] [address] Performing Lab: [place] [facility] [facility] [address] [address] [facility] BASIC METABOLI C PANEL (fasting ) CARBON DIOXIDE, TOTAL [MOLES/VOL UME] IN SERUM OR PLASMA 26 meq/L 20 - 30 10/07 Specimen Type: SERUM No comment entered. Ordering Provider: JAMILA BARRON Report Released Date/Time: Oct 05, 2023 11:58 PM Reporting Lab: [place] [facility] [address] Performing Lab: [place] [facility] [address] [address] [facility] [place] [facility] BASIC METABOLI C PANEL (fasting ) CREATININE [MASS/VOLU ME] IN SERUM OR PLASMA 1.01 mg/dL 0.50 - 1.40 10/07 Specimen Type: SERUM No comment entered. Ordering Provider: JAMILA BARRON Report Released Date/Time: Oct 05, 2023 11:58 PM Reporting Lab: [place] [facility] [address] Performing Lab: [place] [facility] [address] [address] [facility]TRN [place] [facility] BASIC METABOLI C PANEL (fasting ) GLOMERULAR FILTRATION RATE/1.73 SQ M.PREDICTE D [VOLUME RATE/AREA] IN SERUM, PLASMA OR BLOOD BY CREATININE -BASED FORMULA (CKD-EPI 2020) 73 mL/min 60 10/07 Specimen Type: SERUM No comment entered. Ordering Provider: JAMILA BARRON Report Released Date/Time: Oct 05, 2023 11:58 PM Reporting Lab: [facility] [place] [address] [address] Performing Lab: [facility]ENTERTRN [facility] [address] [facility] [address] [facility] CBC AND DIFF (AUTO) LEUKOCYTES [#/VOLUME] IN BLOOD BY AUTOMATED COUNT 7.99 10*3/uL 4.50 - 11.00 10/07 Specimen Type: BLOOD No comment entered. Ordering Provider: JAMILA BARRON Report Released Date/Time: Oct 05, 2023 11:58 PM Reporting Lab: [facility] [place] [facility] [address] [facility] [address] Performing Lab: [facility] [place] [facility] [address] [facility] [address] [facility] CBC AND DIFF (AUTO) ERYTHROCYT ES [#/VOLUME] IN BLOOD BY AUTOMATED COUNT 4.47 10*6/uL 4.23 - 5.66 10/07 Specimen Type: BLOOD No comment entered. Ordering Provider: JAMILA BARRON Report Released Date/Time: Oct 05, 2023 11:58 PM Reporting Lab: [facility] [place] [address] [address] Performing Lab: [facility]ENTERTRN [facility] [address] [address] [facility] CBC AND DIFF (AUTO) HEMOGLOBIN [MASS/VOLU ME] IN BLOOD 14.6 g/dL 12.8 - 17 10/07 Specimen Type: BLOOD No comment entered. Ordering Provider: JAMILA BARRON Report Released Date/Time: Oct 05, 2023 11:58 PM Reporting Lab: [facility] [facility] [address] [facility] [address] Performing Lab: [facility] [facility] [address] [facility] [address] [facility] [place] [facility] CBC AND DIFF (AUTO) HEMATOCRIT [VOLUME FRACTION] OF BLOOD BY AUTOMATED COUNT 42.7 39.2 - 50.4 10/07 Specimen Type: BLOOD No comment entered. Ordering Provider: JAMILA BARRON Report Released Date/Time: Oct 05, 2023 11:58 PM Reporting Lab: [place] [facility] [facility] [address] [facility] [address] Performing Lab: [place] [facility] [facility] [address] [facility] [address] [place] [facility] CBC AND DIFF (AUTO) MCV [ENTITIC VOLUME] BY AUTOMATED COUNT 95.5 fL 82 - 99 10/07 Specimen Type: BLOOD No comment entered. Ordering Provider: JAMILA BARRON Report Released Date/Time: Oct 05, 2023 11:58 PM Reporting Lab: [facility] [place] [facility] [address] [facility] [address] Performing Lab: [facility] [place] [facility] [address] [facility] [address] [place] [facility] [facility] CBC AND DIFF (AUTO) MCHC [MASS/VOLU ME] BY AUTOMATED COUNT 34.2 g/dL 30.8 - 35.1 10/07 Specimen Type: BLOOD No comment entered. Ordering Provider: JAMILA BARRON Report Released Date/Time: Oct 05, 2023 11:58 PM Reporting Lab: [place] [facility] [facility] [address] [facility] [address] Performing Lab: [facility] [place] [facility] [address] [facility] [address] [place] [facility] [place] [facility] CBC AND DIFF (AUTO) PLATELETS [#/VOLUME] IN BLOOD BY AUTOMATED COUNT 126 10*3/uL 140 - 360 10/07 L Specimen Type: BLOOD No comment entered. Ordering Provider: JAMLIA BARRON Report Released Date/Time: Oct 05, 2023 11:58 PM Reporting Lab: [facility] [place] [facility] [address] [facility] [address] Performing Lab: [facility] [place] [facility] [address] [facility] [address] [facility] [facility] CBC AND DIFF (AUTO) ERYTHROCYT E DISTRIBUTI ON WIDTH [RATIO] BY AUTOMATED COUNT 12.9 12.0 - 16.0 10/07 Specimen Type: BLOOD No comment entered. Ordering Provider: JAMILA BARRON Report Released Date/Time: Oct 05, 2023 11:58 PM Reporting Lab: [place] [facility] [address] [address] Performing Lab: [place] [address] [address] [place] [facility] [place] [facility] CBC AND DIFF (AUTO) MONOCYTES [#/VOLUME] IN BLOOD BY AUTOMATED COUNT 0.79 10*3/uL 0.30 - 1.10 10/07 Specimen Type: BLOOD No comment entered. Ordering Provider: JAMILA BARRON Report Released Date/Time: Oct 05, 2023 11:58 PM Reporting Lab: [facility] [place] [facility] [address] [facility] [address] Performing Lab: [place] [address] [address] [facility] [place] [facility] CBC AND DIFF (AUTO) MCH [ENTITIC MASS] BY AUTOMATED COUNT 32.7 pg 26.2 - 32.6 10/07 H Specimen Type: BLOOD No comment entered. Ordering Provider: JAMILA BARRON Report Released Date/Time: Oct 05, 2023 11:58 PM Reporting Lab: [facility] [place] [facility] [address] [facility] [address] Performing Lab: [place] [address] [address] [facility] [place] [facility] CBC AND DIFF (AUTO) NEUTROPHIL S/100 LEUKOCYTES IN BLOOD BY AUTOMATED COUNT 54.5 43.7 - 75.8 10/07 Specimen Type: BLOOD No comment entered. Ordering Provider: JAMILA BARRON Report Released Date/Time: Oct 05, 2023 11:58 PM Reporting Lab: [facility] [place] [facility] [address] [facility] [address] Performing Lab: [facility] [place] [facility] [address] [facility] [address] [facility] [place] [facility] CBC AND DIFF (AUTO) LYMPHOCYTE S/100 LEUKOCYTES IN BLOOD BY AUTOMATED COUNT 33.3 14.0 - 42.3 10/07 Specimen Type: BLOOD No comment entered. Ordering Provider: JAMILA BARRON Report Released Date/Time: Oct 05, 2023 11:58 PM Reporting Lab: [facility] [address] [address] Performing Lab: [facility] [address] [address] [facility] [place] [facility] CBC AND DIFF (AUTO) MONOCYTES/ 100 LEUKOCYTES IN BLOOD BY AUTOMATED COUNT 9.9 5.1 - 13.7 10/07 Specimen Type: BLOOD No comment entered. Ordering Provider: JAMILA BARRON Report Released Date/Time: Oct 05, 2023 11:58 PM Reporting Lab: [facility] [place] [address] [address] Performing Lab: [facility] [place] [facility] [address] [facility] [phone] [facility] CBC AND DIFF (AUTO) EOSINOPHIL S/100 LEUKOCYTES IN BLOOD BY AUTOMATED COUNT 1.4 0.4 - 6.8 10/07 Specimen Type: BLOOD No comment entered. Ordering Provider: JAMILA BARRON Report Released Date/Time: Oct 05, 2023 11:58 PM Reporting Lab: [facility] [address] [phone] Performing Lab: [facility] [address] [phone] [facility] CBC AND DIFF (AUTO) BASOPHILS/ 100 LEUKOCYTES IN BLOOD BY AUTOMATED COUNT 0.6 0.1 - 2.0 10/07 Specimen Type: BLOOD No comment entered. Ordering Provider: JAMILA BARRON Report Released Date/Time: Oct 05, 2023 11:58 PM Reporting Lab: [facility] [address] [place] [phone] Performing Lab[facility] [address] [facility] [phone] [facility] CBC AND DIFF (AUTO) NEUTROPHIL S [#/VOLUME] IN BLOOD BY AUTOMATED COUNT 4.36 10*3/uL 2.20 - 7.60 10/07 Specimen Type: BLOOD No comment entered. Ordering Provider: JAMILA BARRON Report Released Date/Time: Oct 05, 2023 11:58 PM Reporting Lab: [facility] [address] [place] [phone] Performing Lab: [facility] [address] [facility] [phone] [facility] CBC AND DIFF (AUTO) LYMPHOCYTE S [#/VOLUME] IN BLOOD BY AUTOMATED COUNT 2.66 10*3/uL 1.00 - 3.20 10/07 Specimen Type: BLOOD No comment entered. Ordering Provider: JAMILA BARRON Report Released Date/Time: Oct 05, 2023 11:58 PM Reporting Lab: [facility] [address] [place] [phone] Performing Lab: [facility] [address] [place] [phone] [facility] CBC AND DIFF (AUTO) EOSINOPHIL S [#/VOLUME] IN BLOOD BY AUTOMATED COUNT 0.11 10*3/uL 0.03 - 0.44 10/07 Specimen Type: BLOOD No comment entered. Ordering Provider: JAMILA BARRON Report Released Date/Time: Oct 05, 2023 11:58 PM Reporting Lab: [facility] [address] [facility] [address] Performing Lab: [facility] [address] [facility] [address] [facility] CBC AND DIFF (AUTO) BASOPHILS [#/VOLUME] IN BLOOD BY AUTOMATED COUNT 0.05 10*3/uL 0.01 - 0.13 10/07 Specimen Type: BLOOD No comment entered. Ordering Provider: JAMILA BARRON Report Released Date/Time: Oct 05, 2023 11:58 PM Reporting Lab: [facility] [address] [facility] [address] Performing Lab: [facility] [place] [facility] [address] [facility] [address] [facility] CBC AND DIFF (AUTO) IMMATURE GRANULOCYT ES/100 LEUKOCYTES IN BLOOD BY AUTOMATED COUNT 0.3 0.0 - 0.7 10/07 Specimen Type: BLOOD No comment entered. Ordering Provider: JAMILA BARRON Report Released Date/Time: Oct 05, 2023 11:58 PM Reporting Lab: [facility] [place] [facility] [address] [facility] [address] Performing Lab: [facility] [place] [address] [address] [facility] CBC AND DIFF (AUTO) IMMATURE GRANULOCYT ES [#/VOLUME] IN BLOOD 0.02 10*3/uL 0.00 - 0.06 10/07 Specimen Type: BLOOD No comment entered. Ordering Provider: JAMILA BARRON Report Released Date/Time: Oct 05, 2023 11:58 PM Reporting Lab: [facility] [address] [address] Performing Lab: [facility] [place] [address] [address] [facility] LIPID PANEL FASTING CHOLESTERO L [MASS/VOLU ME] IN SERUM OR PLASMA 133 mg/dL 10/07 Specimen Type: SERUM No comment entered. Ordering Provider: JAMILA BARRON Report Released Date/Time: Oct 05, 2023 11:58 PM Reporting Lab: [facility] [address] [facility] [address] Performing Lab: [facility] [address] [facility] [address] [facility] LIPID PANEL FASTING TRIGLYCERI DE [MASS/VOLU ME] IN SERUM OR PLASMA 98 mg/dL 0 - 150 10/07 Specimen Type: SERUM No comment entered. Ordering Provider: JAMILA BARRON Report Released Date/Time: Oct 05, 2023 11:58 PM Reporting Lab: [facility] [address] [facility] [address] Performing Lab: [facility] [address] [address] [facility] LIPID PANEL FASTING CHOLESTERO L IN LDL [MASS/VOLU ME] IN SERUM OR PLASMA BY CALCULATIO N 70 mg/dL 0 - 129 10/07 Specimen Type: SERUM No comment entered. Ordering Provider: JAMILA BARRON Report Released Date/Time: Oct 05, 2023 11:58 PM Reporting Lab: [facility] [address] [facility] [address] Performing Lab: [facility] [address] [facility] [address] [facility] LIPID PANEL FASTING CHOLESTERO L.TOTAL/CH OLESTEROL IN HDL [MASS RATIO] IN SERUM OR PLASMA 3.1 10/07 Specimen Type: SERUM No comment entered. Ordering Provider: JAMILA BARRON Report Released Date/Time: Oct 05, 2023 11:58 PM Reporting Lab: [facility] [address] [facility] [address] Performing Lab: [facility] [address] [facility] [address] [facility] LIPID PANEL FASTING CHOLESTERO L IN HDL [MASS/VOLU ME] IN SERUM OR PLASMA 43 mg/dL 40 - 60 10/07 Specimen Type: SERUM No comment entered. Ordering Provider: JAMILA BARRON Report Released Date/Time: Oct 05, 2023 11:58 PM Reporting Lab: [facility] [address] [facility] [address] Performing Lab: [facility] [address] [facility] [address] [facility] LIVER FUNCTION PROTEIN [MASS/VOLU ME] IN SERUM OR PLASMA 6.6 g/dL 6.0 - 8.3 10/07 Specimen Type: SERUM No comment entered. Ordering Provider: JAMILA BARRON Report Released Date/Time: Oct 05, 2023 11:58 PM Reporting Lab: [facility] [address] [facility] [address] Performing Lab: [facility] [place] [address] [address] [facility] LIVER FUNCTION ALBUMIN [MASS/VOLU ME] IN SERUM OR PLASMA 3.8 g/dL 3.5 - 5.0 10/07 Specimen Type: SERUM No comment entered. Ordering Provider: JAMILA BARRON Report Released Date/Time: Oct 05, 2023 11:58 PM Reporting Lab: [facility] [address] [facility] [address] Performing Lab: [facility] [address] [facility] [address] [facility] LIVER FUNCTION ALKALINE PHOSPHATAS E [ENZYMATIC ACTIVITY/V OLUME] IN SERUM OR PLASMA 103 U/L 40 - 150 10/07 Specimen Type: SERUM No comment entered. Ordering Provider: JAMILA BARRON Report Released Date/Time: Oct 05, 2023 11:58 PM Reporting Lab: [facility] [address] [facility] [address] Performing Lab: [facility] [facility] [address] [facility] [address] [facility] LIVER FUNCTION ASPARTATE AMINOTRANS FERASE [ENZYMATIC ACTIVITY/V OLUME] IN SERUM OR PLASMA 33 U/L 5 - 34 10/07 Specimen Type: SERUM No comment entered. Ordering Provider: JAMILA BARRON Report Released Date/Time: Oct 05, 2023 11:58 PM Reporting Lab: [facility] [place] [facility] [address] [facility] [address] Performing Lab: [facility] [place] [facility] [address] [facility] [address] [facility] [facility] LIVER FUNCTION ALANINE AMINOTRANS FERASE [ENZYMATIC ACTIVITY/V OLUME] IN SERUM OR PLASMA 29 U/L 10/07 Specimen Type: SERUM No comment entered. Ordering Provider: JAMILA BARRON Report Released Date/Time: Oct 05, 2023 11:58 PM Reporting Lab: [facility] [address] [address] Performing Lab: [facility] [place] [facility] [address] [facility] [address] [facility] LIVER FUNCTION BILIRUBIN. TOTAL [MASS/VOLU ME] IN SERUM OR PLASMA 0.7 mg/dL 0.2 - 1.2 10/07 Specimen Type: SERUM No comment entered. Ordering Provider: JAMILA BARRON Report Released Date/Time: Oct 05, 2023 11:58 PM Reporting Lab: [facility] [place] [address] [address] Performing Lab: [facility] [place] [address] [address] [facility] Vital Signs Combined list of inpatient and outpatient Vital Signs from Department of Defense and Veterans Affairs, ranging from 12 months to all on record, depending upon the facility. 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
RANCHO RODRIGUEZ 01/08 [facility] En[facility] [id number] 03/06 [facility] Encounter [id number] 04/08 [facility] OFFICE O/P EST SF 10-19 MIN [id number] Diagnos is: ICD-10- CM I10 Essenti al (primar y) hyperte nsion<b r/> RICO BARRON RD 04/15 [facility] En[facility] [id number] 04/16 [facility] OFFICE O/P EST LOW 20-29 MIN [id number] Diagnos is: ICD-10- CM 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
RANCHO RODRIGUEZ 04/30 [facility] En[facility] [id number] 06/14 [facility] Encounter [id number] 06/16 [facility] Out[facility] Encounter [id number] 06/19 [facility] Encounter [id number] 06/27 [facility] Out[facility] Encounter [id number] 10/08 [facility] OFFICE O/P EST LOW 20 MIN [id number] Diagnos is: ICD-10- CM H67.3 Otitis media in disease s classif ied elsewhe re, bilater al
RICO BARRON RD D 10/15 [facility] OFF/OP EST MAY X REQ PHY/QHP [id number] Diagnos is: ICD-10- CM Z23 Encount er for immuniz ation<b r/> RICO BARRON RD D 10/15 [facility] UNLISTED SPEC DERM SVC/PX [id number] Diagnos is: ICD-10- CM Z13.89 Encount er for screeni ng for other disorde r
GORDON BEAUCHAMP ICA A 10/23 [facility] OFFICE O/P EST SF 10 MIN [id number] Diagnos is: ICD-10- CM R21 Rash and other nonspec ific skin eruptio n
WILYE PASTOR PH J 10/23 [facility] Out[facility] Encounter [id number] 10/23 [facility] Encounter [id number] 10/23 [facility] Encounter [id number] 11/20 [facility] Encounter [id number] 11/24 [facility] Encounter [id number] 11/27 [facility] Encounter [id number] 11/28 [facility] Out[facility] Encounter [id number] 11/30 [facility] UNLISTED SPEC DERM SVC/PX [id number] Diagnos is: ICD-10- CM Z13.89 Encount er for screeni ng for other disorde r
GORDON BEAUCHAMP ICA A 12/04 [facility] En[facility] [id number] 12/04 [facility] Outpatient Encounter [id number] Diagnos is: ICD-10- CM D48.5 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
Yossi HARRINGTON 12/29 [facility] En[facility] [id number] 12/29 [facility] Out[facility] Encounter [id number] 01/05 [facility] Out[facility] Encounter [id number] 01/09 [facility] Out[facility] Encounter [id number] 01/12 [facility] Out[facility] Encounter [id number] 01/12 [facility] Out[facility] Encounter [id number] 01/12 [facility] Out[facility] Encounter [id number] IRASEMA MONTILLA 01/13 [facility] Out[facility] Encounter [id number] 01/16 [facility] Out[facility] Encounter [id number] 01/19 [facility] Encounter [id number] 01/22 [facility] Out[facility] Encounter [id number] D 02/02 [facility] ORTHC/PROS TC MGMT SBSQ ENC [id number] Diagnos is: ICD-10- CM M84.472 A Patholo gical fractur e, left ankle, init encntr for fractur e
Thierno HAMPTON 02/02 [facility] Encounter [id number] 02/10 [facility] Out[facility] Encounter [id number] 02/13 [facility] Out[facility] Encounter [id number] 03/04 [facility] Out[facility] Encounter [id number] 03/04 [facility] OFF/OP EST MAY X REQ PHY/QHP [id number] Diagnos is: ICD-10- CM Z71.89 Other specifi ed residential treatment counselor ing<br/ > JOSIE KINGSTON 03/05 [facility] OFFICE O/P EST LOW 20 MIN [id number] Diagnos is: ICD-10- CM L60.1 Onychol ysis
PASCUAL STERN 03/05 [facility] OFF/OP EST MAY X REQ PHY/QHP [id number] Diagnos is: ICD-10- CM Z48.01 Encount er for change or removal of surgica l wound dressin g
KAVEH SIEGEL LLAranza L 03/06 [facility] OFF/OP CNSLTJ NEW/EST MOD 40 [id number] Diagnos is: ICD-10- CM H90.A31 Mix cndct/s nrl hear loss,un i,r ear w rstrcd hear cntra side
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
Yossi HARRINGTON 03/31 [facility] Out[facility] Encounter [id number]/09 [facility] OFFICE O/P EST LOW 20 MIN [id number] 1. Diagnos is: ICD-10- CM I10 Essenti al (primar y) hyperte nsion<b r/> RICO BARRON RD 04/13 [facility] Out[facility] Encounter [id number] 1.04/14 [facility] Out[facility] Encounter [id number] 1.04/23 [facility] Encounter [id number] 1.04/24 [facility] OFFICE O/P EST MOD 30 MIN [id number] Diagnos is: ICD-10- CM 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
RANCHO RODRIGUEZ 04/28 [facility] CONFORMITY EVALUATION [id number] Diagnos is: ICD-10- CM Z46.1 Encount er for fitting and adjustm ent of hearing aid<br/ > Yossi HARRINGTON 05/05 [facility] Out[facility] Encounter [id number] 05/08 [facility] Out[facility] Encounter [id number] 06/03 [facility] Out[facility] Encounter [id number] 06/06 [facility] Out[facility] Encounter [id number] 06/25 [facility] Out[facility] Encounter [id number] 06/25 [facility] Out[facility] Encounter [id number] 06/26 [facility] Out[facility] Encounter [id number] 07/02 [facility] Social History Combined list of available smoking, tobacco, and other social history from Department of Defense and Veterans Affairs facilities. Social History Type Response Date Comment Sour e Tobacco smoking status NHIS VA-TOBACCO QUIT 15 YRS OR MORE [facility] [place] [facility] History of tobacco use VA-TOBACCO FORMER USER 10/16/2023 [facility] [place] [facility] History of tobacco use [facility]ACCO [facility] History of tobacco use NSG NO TOBACCO USE PAST 30 DAYS 03/27/2022 [facility] History of tobacco use NSG NO TOBACCO USE PAST 30 DAYS 03/05/2022 [facility] History of tobacco use NSG NO TOBACCO USE PAST 30 DAYS 03/02/2022 [facility] History of tobacco use VA-TOBACCO QUIT 15 YRS OR MORE 06/28/2021 [facility] [place] [facility] History of tobacco use IN-TOBACCO FORMER USER 05/26/2020 [facility] [place] [facility] History of tobacco use VA-TOBACCO NEVER USED 05/23/2018 [facility] Plan of Care List of future care activities from Department of Veterans Affairs facilities. Additional future care activities may be listed in the Assessment and Plan section. Date/Time Care Activity Care Activity Detail Facili ty 07/20/2024 AMBULATORY - MEDICINE [facility] 08[facility]14/2024 [facility]BULAT[facility] - MEDIC[facility] [place] [facility] 10/07/2024 AMBULATORY - MEDICINE [facility] [place] [facility] 10/28/2024 AMBULATORY - MEDICINE [facility] [place] [facility] 06/06/2024 Consult Order [facility]-O RTHO GENERAL Cons Sales Support Manager's Choice [facility] [place] [facility] 06/26/2024 Consult Order COMMUNITY CARE-G EC NON-SKILLED HOME HEALTH AIDE Cons Sales Support [facility] Advance Directives List of completed, amended, or rescinded Advance Directives on record at Department of Veterans Affairs facilities. An actual copy of the Directive is not included. Date Advance Directive Provider Source 02/19/2022 ADVANCE DIRECTIVE JOCE CASTORENA [facility] 11/16/2020 ADVANCE DIRECTIVE BYRON BARRON [facility]
--- NOTE | 2024-07-06 13:37 | MHC.OFFVIS ---
Vital Signs 07/06/24 13:40 Height 5 ft 6 in Weight 193 lb BMI 31.1 Intake Visit Reasons: OV: Left Ankle ORIF 01/21/24 Intake Note: Reed is a 83 year old male who presents with his REFINERY OPERATOR ASSISTANTTova, today for a follow up visit s/p left ankle ORIF 01/21/24 w/ NE. Patient had a venous duplex on 06/19/24 for left leg. Patient reports continued pain in the left ankle when bearing weight. He states when he lifts his foot and removes pressure he feels pain. Denies numbness adn tingling. Accompanied by: REFINERY OPERATOR ASSISTANT Allergies niacin Allergy (Severe, Verified 07/06/24 13:41) Upset Stomach procaine [From Novocain] Allergy (Severe, Verified 07/06/24 13:41) I GET MEAN simvastatin Adverse Reaction (Severe, Verified 07/06/24 13:41) myopathy HPI HPI OV: Left Ankle ORIF 01/21/24: Details: Reed is a 83 year old male who presents with his REFINERY OPERATOR ASSISTANTTova today for a follow up visit s/p left ankle ORIF 01/21/24 w/ NE. Patient had a venous duplex on 06/19/24 for left leg. Patient reports that he has swelling has improved significantly since previous evaluation. Patient reports improved pain in the left ankle when bearing weight. He states when he lifts his foot and removes pressure he feels pain temporarily, but states that it improves with time.. Denies numbness adn tingling. Patient states that his skin has less breakdown than it did at previous evaluation. No other acute complaints or concerns at this time. [facility] Medical History Hyperlipidemia HTN (hypertension) CAD (coronary artery disease) Murmur, cardiac Chest pain COPD (chronic obstructive pulmonary disease) Asbestosis Surgical History S/P TAVR (transcatheter aortic valve replacement) Stented coronary artery Hx of cardiac catheterization Family History Father CAD (coronary artery disease) Mother No problems noted. Social History Patient Tobacco Use Status: Former Tobacco user Tobacco use type: Cigarette and Cigar Years Smoked: 14 years old Review of Systems Const All systems reviewed & are unremarkable except as noted in HPI and below Physical Exam Vital Signs: BMI result Body Mass Index 31.1 Extrem Other: On inspection, there is no deformity of the L ankle Incision sites are well healed No evidence of discharge There there is noted to be some discoloration in the lateral aspect of the patient's ankle No ecchymosis Mgee-qn-ntpuaakc edema noted of the left ankle, significantly improved from visit earlier this week Evidence of skin breakdown noted at previous evaluation appears to be resolving at this time Patient reports no tenderness to palpation about the left lateral malleolus Patient is able to plantar flex and dorsiflex the foot, however this is limited due to swelling Distal sensation intact Capillary refill brisk Results Reviewed Results Reviewed: X-rays obtained in the office today and independently reviewed by me, Demetrius Contreras PA-C, demonstrate well-healing fracture of the left lateral malleolus with orthopedic hardware in place and in satisfactory clinical alignment. No evidence of re fracture, damage to orthopedic hardware, or other injury Assessment & Plan Assessment & Plan (1) Ankle fracture, lateral malleolus, closed: Code(s): S82.63XA - Displaced fracture of lateral malleolus of unspecified fibula, initial encounter for closed fracture Category: Medical Qualifiers: Encounter type: initial encounter Fracture alignment: displaced Laterality: left Qualified Code(s): S82.62XA - Displaced fracture of lateral malleolus of left fibula, initial encounter for closed fracture Plan 1. Lateral malleolus fracture of the left ankle status post ORIF DOS 01/21/2024 Patient was informed at this time that he is doing very well and getting the swelling in his left ankle down Patient is also educated that he needs to continue to have his ankle elevated consistently above heart level to allw the swelling to go down further Patient is also provided with a Gerhard wrap and new walking boot to provide gentle compression to the leg while elevating to encourage decrease in swelling Patient was amenable to this plan Patient will follow-up in 2 weeks for reassessment of swelling, sooner with any acute concerns Orders: Orders XR ankle LT min 3V Today M25.572 - Pain in left ankle and joints of left foot Coding Level of Care Code Est Pt Level 3 (25709) Diagnoses Closed displaced fracture of lateral malleolus of left fibula, initial encounter S82.62XA Encounter type: initial encounter Fracture alignment: displaced Laterality: left
[2024-07-06 13:40] VITALS: BMI 31.1
== END 2024-07-06 14:25 | disposition home or self-care (01) ==
PROVIDERS: PCP Internal Medicine
DX: S82.62XA Displaced fracture of lateral malleolus of left fibula, initial encounter for closed fracture (principal)
CPT/HCPCS: 99213

== ENCOUNTER 2024-07-14 14:41 | Outpatient (AMB) | payer OTHER, SELFPAY ==
[2024-07-14 14:46] VITALS: BP 130/80; PULSE 73
--- NOTE | 2024-07-14 14:46 | MHC.OFFVIS ---
Vital Signs 07/14/24 14:46 Height 5 ft 6 in BMI Reason not done Patient refused/unable BP 130/80 Blood Pressure Location Lt brachial Position Sitting Pulse 73 Intake Visit Reasons: 1 year follow up, post echo Intake Note: 1 year follow-up after echo with ekg feeling good Sewage Plant Attendant: Sewage Plant Attendant Present Accompanied by: Family/Other Allergies niacin Allergy (Severe, Verified 07/06/24 13:41) Upset Stomach procaine [From Novocain] Allergy (Severe, Verified 07/06/24 13:41) I GET MEAN simvastatin Adverse Reaction (Severe, Verified 07/06/24 13:41) myopathy Medication List - Last Reconciled 07/14/24 by Donny Bonds MD acetaminophen (Tylenol) 650 mg (2 x 325 mg) PO Q6H PRN aspirin (Adult Aspirin Regimen) 81 mg PO DAILY atorvastatin 80 mg PO BEDTIME ezetimibe 10 mg PO DAILY hydrochlorothiazide 25 mg PO DAILY metoprolol succinate ER 50 mg PO DAILY HPI Comments Details: eRed is doing well. Denies any cardiac symptoms. Injured his left ankle and is currently in a boot for the last 6 months. This limits his activity level. Denies any chest pain. No heart failure symptoms. Takes all his medications. [facility] Medical History Hyperlipidemia HTN (hypertension) CAD (coronary artery disease) Murmur, cardiac Chest pain COPD (chronic obstructive pulmonary disease) Asbestosis Surgical History S/P TAVR (transcatheter aortic valve replacement) Stented coronary artery Hx of cardiac catheterization Family History Father CAD (coronary artery disease) Mother No problems noted. Social History Patient Tobacco Use Status: Former Tobacco user Tobacco use type: Cigarette and Cigar Years Smoked: 14 years old Review of Systems Const Denies chills, Denies fatigue, Denies fever(s), Denies frequent falls, Denies weakness, Denies weight gain and Denies weight loss ENT Denies dizziness Card Denies chest pain, Denies leg edema, Denies lightheadedness, Denies palpitations, Denies dyspnea, Denies dyspnea on exertion, Denies orthopnea and Denies other (loss of consciousness) Resp Denies cough, Denies dyspnea and Denies dyspnea on exertion GI Denies hematochezia and Denies change in stool character Musc Denies abnormal gait, Denies muscle weakness, Denies numbness, Denies radiating pain into limb and Denies tingling Neuro Denies abnormal gait, Denies dizziness, Denies frequent falls, Denies numbness, Denies tingling and Denies weakness Endo Denies fatigue and Denies palpitations Physical Exam Vital Signs: Last Vital Signs Pulse 73 07/14/24 14:46 BP 130/80 07/14/24 14:46 Const General: cooperative, comfortable, no acute distress, alert, awake and Physically active Nutritional Appearance: obese Orientation/consciousness: patient oriented x3 Limitations: no limitations HEENT Head: Yes normocephalic and Yes atraumatic Neck Neck: Yes trachea midline, Yes supple and Yes no JVD Resp Effort & Inspection: normal respiratory effort Auscultation: no rales, no wheezes and diminished lung sounds Cardio Jugular venous distension: no JVD Palpation: normal PMI Rate: regular rate Rhythm: regular rhythm Heart sounds: S1 normal heart sound present, S2 normal heart sound present, no click, no gallops and Murmur heart sound present systolic early GI Auscultation: normal bowel sounds Skin General skin exam: no rashes or lesions noted Neuro General: patient oriented x3 and no focal motor deficits Extrem General: Yes no clubbing, cyanosis or edema Office Procedures EKG Details: EKG shows normal sinus rhythm with PACs 88456-Gwfxwmlhlsjiucsti, Complete Assessment & Plan Assessment & Plan (1) S/P TAVR (transcatheter aortic valve replacement): Comment: Marcy Galan mm, March 2023 Code(s): Z95.2 - Presence of prosthetic heart valve Category: Surgical Plan: Status post transcatheter aortic valve replacement working well. Follow-up echocardiogram near future. Continue aspirin therapy. Continue aggressive risk factor modification, see below. SBE prophylaxis as per ACC/aha guidelines. (2) CAD (coronary artery disease): Code(s): I25.10 - Atherosclerotic heart disease of [place] coronary artery without angina pectoris Category: Medical Plan: CAD with circumflex stenting without any symptoms of angina. Continue low-dose aspirin therapy for life. Continue dual therapy with atorvastatin ezetimibe. Target goal LDL less than 60 mg/dL. Continue aggressive blood pressure control which is currently well optimized advised to monitor blood pressure at home. Target goal blood pressure less than 130/84. Maintain activity level as tolerated. Advised to call me with any new symptoms. Will follow up in the clinic in 1 year's time, sooner p.r.n.. Thank you for allowing me to partake in his care Orders: Orders CA echo transthoracic complete 07/14/24 Z95.2 - Presence of prosthetic heart valve Medications: Refilled hydrochlorothiazide 25 mg PO DAILY 90 tabs 3RF Coding Level of Care Code Est Pt Level 4 (59272) Complex EM visit Add On G2211 Diagnoses S/P TAVR (transcatheter aortic valve replacement) Z95.2 CAD (coronary artery disease) I25.10 CPT Codes EKG - CPT: 93241-Wpxhqsuheqiudklyl, Complete ([id number])
--- OUTSIDE RECORDS SUMMARY | 2024-07-14 14:46 | XMS_ITS ---
Author Organization [facility] Address [address] [place] [address] Care Team Providers Care Early Intervention School Psychologist Name Role Phone Josue Simmons MD Primary Care Provider Unavailab melinda Lyn Lund Unavailable [phone] Allergies Allergen (clinical drug ingredient) Drug/Non Drug [...] 04/23/2024 Encounters Encounter Location Date Provider Diagnosis [facility] [address] [place] [address] 04/23/2024 Lyn Lund Plan Of Treatment No Information Progress Notes * Reed MALLORY HDOB:1940 (83 yo M)Acc No.[id number]:04/23/2024 Progress Notes Patient:Reed VANCE Provider:?Lyn Lund DPM :1940???Age:83 Y???Sex:Male Chu e:04/23/2024 Address:[address] [place], [place] [id number] Pcp:Josue Simmons MD Subjective: * Chief Complaints: [...] Lund DPM Date:?2023 Generated for Yokasta palacios/Ilda/Cocoitting on:?07/14/2024 10:33 AM EST
--- OUTSIDE RECORDS SUMMARY | 2024-07-14 14:46 | XMS_ITS | Encounter Summary ---
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 Address [address] [place] [address] Care Team Providers Care Professor Criminal Justice Name Role Phone JOSUE SIMMONS Primary Care [...] Dec 19, 2007 MEDICAR E SUPPLEM E [id number] [phone] NYDIA HUERTA UL PATIENT [employer] MEDICARE SUPPLEMEN YORDAN Dec 19, 2007 MEDICAR E SUPPLEM E [id number] [phone] NYDIA HUERTA UL PATIENT [employer] [place] MEDICARE SUPPLEMEN YORDAN BANKE RS Dec 19, 2007 NONE [id number] [phone] NYDIA HUERTA UL PATIENT MEDICARE (WNR) MEDICARE (M) PART B Oct 13, 2006 PART B [id number] NYDIA HUERTA UL PATIENT MEDICARE (WNR) MEDICARE (M) PART B Oct 13, 2006 PART B [id number] DOMINA,PA UL PATIENT MEDICARE (WNR) MEDICARE (M) PART B Oct 13, 2006 PART B [id number] [phone] NYDIA HUERTA PATIENT MEDICARE (WNR) MEDICARE (M) PART B Oct 13, 2006 PART B [id number] [phone] NYDIA HUERTA PATIENT MEDICARE (WNR) MEDICARE (M) PART A Sep 13, 2003 PART A [id number] NYDIA HUERTA PATIENT MEDICARE (WNR) MEDICARE (M) PART A Sep 13, 2003 PART A [id number] [phone] NYDIA HUERTA PATIENT MEDICARE (WNR) MEDICARE (M) PART A Sep 13, 2003 PART A [id number] [phone] NYDIA HUERTA PATIENT MEDICARE (WNR) MEDICARE (M) PART A Sep 13, 2003 PART A [id number] [phone] NYDIA HUERTA PATIENT Selected Encounter This section includes the information on record at [place] for the Encounter. Date/Time Encounter Type Encounter Description Reason Pro vider Source Jul 14, 2024 08:37 AM Outpatient Encounter ADMIN PAT ACTIVTIES (MASNONCT) [...] 20, 2024 08:00 AM AM[facility]ULATORY [place] [facility]IC[facility] [place] [facility] Aug 14, 2024 03:00 PM AMBULATORY - MEDICINE [facility] [place] Oct 07, 2024 09:00 AM AM[facility]ULATORY - MEDICINE [facility] Oct 28, 2024 08:00 AM [facility]ORY [facility] [place] [facility] Active, Pending, and Scheduled Orders This section includes a listing of several types of active, pending, and scheduled orders, including clinic medications orders, diagnostic test orders, procedure orders and consult orders; where the start date of the order is 45 days before the date of the Encounter or 45 days after the date of theEncounter. The data comes from all [place] treatment facilities. Test Date/Time Test Type Test Details Facility Name Jun 06, 2024 04:26 PM Consult Order COMMUNITY CARE-[facility]THO GENERAL Cons Hog Driver's Choice [facility] [place] [facility] Jun 26, 2024 04:42 PM Consult Order COMMUNITY CARE-GEC NON-SKILLED HOME HEALTH AIDE Cons [facility] Jul 14, 2024 10:34 AM Consult Order CARDIOLOGY ONE Cons [facility] [place] [facility] Social History: Smoking Status (Most current) and [...] 16, 2023 01:30 PM [facility] Tobacco Use History This section includes a history of the smoking, or tobacco-related health factors, that were collected on or before the date of the Encounter. The data comes from the [place] facility where the Encounter took place. Date/Time Smoking Status/Tobacco Use Comment F acility Oct 16, 2023 01:30 PM VA-TOBACCO QUIT 15 YRS OR MORE [facility] [place] [facility] Jul 04, 2022 11:00 AM VA-TOBACCO FORMER USER [facility] [place] [facility] Jul 04, 2022 11:00 AM VA-TOBACCO QUIT 15 YRS OR MORE [facility] [place] Jun 28, 2021 10:30 AM VA-TOBACCO FORMER USER [facility] Jun 28, 2021 10:30 AM VA-TOBACCO QUIT 15 YRS OR MORE [facility] [place] [facility] May 26, 2020 08:00 AM [facility] May 26, 2020 08:00 AM VA-TOBACCO QUIT 15 YRS OR MORE [facility] May 23, 2018 11:21 AM VA-TOBACCO NEVER USED [facility] Advance Directives: All [...] [facility] November 16, 2020 ADVANCE DIRECTIVE JOSUE SIMMONS [facility] Encounter Notes: All associated encounter notes This section contains the clinical notes associated to the Encounter. Date/Time Encounter Note(s) Provider Source Jul 14, 2024 10:19 AM ADDENDUM: LOCAL TITLE: Addendum STANDARD TITLE: ADDENDUM DATE OF NOTE: JUL 14, 2024@10:19:32 ENTRY DATE: JUL 14, 2024@10:19:33 AUTHOR: STEPHANIE BANKS EXP COSIGNER: URGENCY: STATUS: COMPLETED done. please sign if agree. /eleanor/ Stephanie Banks RN, BSN Primary Care Signed: 07/14/2024 10:19 Receipt Acknowledged By: 07/14/2024 10:35 /eleanor/ Josue Simmons MD Staff Physician === --- Original Document --- 07/14/24 CCC: SCHEDULING ADMINISTRATION: Patient Demographics Patient Name: ALYCIA HUERTA Patient Primary Phone: [phone] Patient Primary Address: [address] [place] [phone] Patient : 1940 Patient Age: 83 Call Back Number: [phone] Caller/Recipient Relation to Patient: Self Caller Name: ALYCIA HUERTA Administrative Administrative Note Reason: Other Administrative Note Comments: [facility] is requesting a consult referral to practice support specialist @ [facility]. Dr. Hou Please call vet back once request has been approved. Best call back IMPORTANT: This note was created by [facility] staff. Please do not alert the staff member by adding them as a signer for future communications. Alerts are not monitored by this user. /eleanor/ KEYSHA WEINER 1 [facility] Signed: 07/14/2024 08:37 Receipt Acknowledged By: * AWAITING SIGNATURE * STEPHANIE BANKS * AWAITING SIGNATURE * COBY MAHER 07/14/2024 ADDENDUM STATUS: COMPLETED Done. /es/ Josue Simmons MD Staff Physician Signed: 07/14/2024 10:34 STEPHANIE BANKS [facility] Jul 14, 2024 08:37 AM ADMINISTRATIVE NOTE: LOCAL TITLE: CCC: SCHEDULING ADMINISTRATION STANDARD TITLE: ADMINISTRATIVE NOTE DATE OF NOTE: JUL 14, 2024@08:37:52 ENTRY DATE: JUL 14, 2024@08:37:53 AUTHOR: KEYSHA DEE EXP COSIGNER: URGENCY: STATUS: COMPLETED CCC: SCHEDULING ADMINISTRATION Has ADDENDA Patient Demographics Patient Name: ALYCIA HUERTA Patient Primary Phone: [phone] Patient Primary Address: [address] [place] [phone] Patient : 1940 Patient Age: 83 Call Back Number: [phone] Caller/Recipient Relation to Patient: Self Caller Name: ALYCIA HUERTA Administrative Administrative Note Reason: Other Administrative Note Comments: [facility] is requesting a consult referral to practice support specialist @ [facility]. Dr. Hou Please call vet back once request has been approved. Best call back IMPORTANT: This note was created by [facility] staff. Please do not alert the staff member by adding them as a signer for future communications. Alerts are not monitored by this user. /eleanor/ KEYSHA WEINER 1 [facility] Signed: 07/14/2024 08:37 Receipt Acknowledged By: * AWAITING SIGNATURE * STEPHANIE BANKS * AWAITING SIGNATURE * COBY MAHER 07/14/2024 ADDENDUM STATUS: COMPLETED done. please sign if agree. /tena Banks RN, BSN Primary Care Signed: 07/14/2024 10:19 Receipt Acknowledged By: 07/14/2024 10:35 /eleanor/ Josue Simmons MD Staff Physician 07/14/2024 ADDENDUM STATUS: COMPLETED Done. /eleanor/ Josue Simmons MD Staff Physician Signed: 07/14/2024 10:34 [facility]
--- OUTSIDE RECORDS SUMMARY | 2024-07-14 14:46 | XMS_ITS ---
Author Organization [facility] Address [address] [place] [address] Care Team Providers Care Alligator Shear Operator Name Role Phone Josue Simmons MD Primary Care Provider Unavailab Lyn Damico [phone] REASON FOR VISIT 04/23/24 Encounters Encounter Location Date Provider Diagnosis [facility] [address] [place] [address] 04/02/2024 Lyn Lund Plan Of Treatment No Information Progress Notes * Reed MALLORY HDOB:1940 (83 yo M)Acc No.[id number]:04/02/2024 Patient:?Reed Mallory :1940???Age:83 Y???Sex:Male Address:[address] [place] [id number] * true * Date:? Generated for Printi ng/Famichaelg/eTransmitting on:?07/14/2024 10:33 AM EST
--- OUTSIDE RECORDS SUMMARY | 2024-07-14 14:46 | XMS_ITS | Patient Health Record ---
Author Organization [facility]id Ferguson Address [address] [place] [address] Care Team Providers Care Laborer Vineyard Name Role Phone Josue Simmons MD Primary Care Provider Lyn Aquino Unavailable [phone] Allergies Allergen (clinical drug ingredient) Drug/Non Drug [...] primary osteoarthritis of the ankle and/or foot ([id number]) Primary osteoarthrit is, right ankle and foot (M19.071) Active confirmed Encounters Encounter Location Date Provider Diagnosis [facility] [place] [address] [facility] [place] [place] [address] 03/09/2024 Lyn Lund [facility] [place] [address] [facility] [place] [address] 03/12/2024 Lyn Lund [facility] [place] [address] [place] [address] 04/02/2024 Lyn Lund Plan Of Treatment Pending Test Test Name Order Date X ray : Foot, right 3V 01/20/2015 X ray : Ankle, right 3V 03/04/2017 Insurance Providers Payer Name Payer Address Payer Phone Subscriber Number Group Number Insured Name Patient Relationship to Insured Coverage Start Date Coverage End Date Medicare National [employer]t [employer] [address] [place] [address] [id number] Reed Mallory Self - patient is the insured [employer] [address] [place] [address] Reed Mallory Self - patient is the [...]
--- OUTSIDE RECORDS SUMMARY | 2024-07-14 14:46 | XMS_ITS ---
Author Organization [facility] Address [address] [place] [address] Care Team Providers Care Global Cto Name Role Phone Josue Simmons MD Primary Care Provider Unavailab Lyn Damico [phone] REASON FOR VISIT OPERATING ROOM SURGICAL TECHNOLOGIST PPWK Entered Encounters Encounter Location Date Provider Diagnosis [facility] [address] [place] [address] 03/12/2024 Lyn Lund Plan Of Treatment No Information Progress Notes * Reed MALLORY HDOB:1940 (83 yo M)Acc No.[id number]:03/12/2024 Patient:?Reed Mallory :1940???Age:83 Y???Sex:Male Address:[address] [place] [address] * true * Date:? Generated for Printi ng/Famichaelg/eTransmitting on:?07/14/2024 10:33 AM EST
== END 2024-07-14 15:15 | disposition home or self-care (01) ==
PROVIDERS: PCP Internal Medicine; Visit Provider Internal Medicine Cardiovascular Disease
DX: Z95.2 Presence of prosthetic heart valve (principal); I25.10 Atherosclerotic heart disease of native coronary artery without angina pectoris
CPT/HCPCS: 93010; 99214; G2211

== ENCOUNTER → 2024-07-14 14:41 | Outpatient (BNVA) | payer OTHER, SELFPAY | PROVIDERS: PCP Internal Medicine; Visit Provider Internal Medicine Cardiovascular Disease | DX: I25.10 Atherosclerotic heart disease of native coronary artery without angina pectoris (principal); Z95.2 Presence of prosthetic heart valve | CPT/HCPCS: 93005; 99212 ==

== ENCOUNTER 2024-07-20 08:14 | Outpatient (REF) | payer OTHER, SELFPAY ==
--- NOTE | ~2024-07-20 | XR_ITS ---
EXAMINATION: XR ANKLE 3 OR MORE VIEWS LEFT HISTORY: M25.572 - Pain in left ankle and joints of left foot COMPARISON: Comparison is made with the prior examination dated 07/06/2024. FINDINGS: Three views of the left ankle are submitted. There is periarticular osteopenia. The patient is again noted to be status post internal fixation of the distal fibula with a sideplate and multiple orthopedic screws. A metallic button is again seen overlying the medial malleolus. The fracture line is not well-visualized, likely related to osteopenia. 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 There is diffuse soft tissue swelling. XR/XR ankle LT min 3V IMPRESSION: Internal fixation of the distal fibula. The fracture line is not well visualized, likely due to osteopenia. Severe tibiotalar degenerative change. Electronically signed by: Chuy Rosenthal MD 07/23/2024 08:09 AM PANDA
--- OUTSIDE RECORDS SUMMARY | 2024-07-20 08:25 | XMS_ITS | Continuity of Care Document ---
Author Name [facility] Organization 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 Unavailable Unavailable Problems Combined list of problems from Department of Defense and Veterans Affairs facilities. It does not include entries that were removed or entered in error. Problem Status Onset Date Problem Type Date of Resolution Comments Source Chronic dermatitis Active 023 Condition Oct 05, 2022 Entered By: BYRON BARRON Comment: referred to dermatology [facility] Chest Pain (SCT [id number]) Active Condition Jan 02, 2022 Entered By: BYRON BARRON Comment: ordered stress test [facility] COPD - Chronic Obstructive Pulmonary Disease (SCT [id number]) Active Condition Dec 28, 2021 Entered By: BYRON BARRON Comment: on inhalers [facility] Cataract Active Condition Oct 12, 2020 Entered By: BYRON BARRON Comment: referred for surgery [facility] HTN - Hypertension (SCT [id number]) Active Condition Oct 21, 2020 Entered By: BYRON BARRON Comment: treated witn medication [facility] Hypercholesterolemia (SCT [id number]) Active Condition Oct 21, 2020 Entered By: [...] uncertain behavior of skin Active Diagnosis [facility] Diagnosis: ICD-10-CM Z13.89 Encounter for screening for other disorder Active Diagnosis [facility] Diagnosis: ICD-10-CM R21 Rash and other nonspecific skin eruption Active Diagnosis [facility] Diagnosis: ICD-10-CM Z23 Encounter for immunization Active Diagnosis [facility] Diagnosis: ICD-10-CM H67.3 Otitis media in diseases classified elsewhere, bilateral Active Diagnosis [facility] [place] [facility] Medications Combined list of outpatient [...] TWICE DAILY FOR INFECTIO N ORAL 11/15/2023 [id number] MAUREEN BARRON 2023 20 [facility] ASPIRIN 81MG TAB,CHEWABL E CHEW ONE TABLET BY MOUTH ONCE DAILY ORAL ACTIVE JANINE HAMMOND R [facility] ATORVASTATI N CA 80MG TAB TAKE ONE TABLET BY MOUTH AT BEDTIME ORAL ACTIVE 06/26/2025 [id number] MAUREEN BARRON PAIGE D 2023 90 [facility] ATORVASTATI N CA 80MG TAB TAKE ONE TABLET BY MOUTH AT BEDTIME ORAL DISCONT INUED 06/19/2024 [id number]GUETA AV 2022 90 [facility] ATORVASTATI N CA 80MG TAB TAKE ONE TABLET BY MOUTH ONCE DAILY FOR CHOLESTE ROL ORAL DISCONT INUED 03/07/2024 [id number] MAUREEN BARROND D 2022 90 [facility] CEPHALEXIN 500MG CAP TAKE ONE CAPSULE BY MOUTH EVERY 8 HOURS FOR INFECTIO N ORAL 04/04/2024 [id number] MAMTA STERN 2023 21 [facility] EZETIMIBE 10MG TAB TAKE ONE TABLET BY MOUTH ONCE DAILY TO LOWER CHOLESTE ROL ORAL ACTIVE 06/26/2025 [id number] MAUREEN BARRON PAIGE D 2023 90 [facility] EZETIMIBE 10MG TAB TAKE ONE TABLET BY MOUTH ONCE DAILY TO LOWER CHOLESTE ROL ORAL DISCONT INUED 06/19/2024 [id number] MOHAMUD ARGUETA AV 2022 90 [facility] FLUTICASONE 250MCG/SALM ETEROL 50MCG INHL,ORAL,D ISKUS,60 INHALE 1 PUFF BY MOUTH TWICE DAILY - RINSE MOUTH AFTER USE RESPIR ATORY (INHAL ATION) 03/07/2024 [id number] MAUREEN BARRON D 2022 3 [facility] FLUTICASONE PROPIONATE 50MCG/SPRAY SOLN,NASAL, 16GM INSTILL 1 SPRAY INTO EACH NOSTRIL ONCE DAILY NEEDED FOR NASAL IRRITATI ON/INFLA MMATION NASAL 04/15/2024 [id number] MAUREEN BARRON PAIGE D 2022 1 [facility] HYDROCHLORO THIAZIDE 25MG TAB TAKE ONE TABLET BY MOUTH ONCE DAILY TO PREVENT FLUID/CO NTROL BLOOD PRESSURE ORAL DISCONT INUED 03/07/2024 [id number] MAUREEN BARRON PAIGE D 2022 90 [facility] HYDROCHLORO THIAZIDE 25MG TAB TAKE ONE TABLET BY MOUTH ONCE DAILY ORAL 06/19/2024 [id number] MOHAMUD ARGUETA AV 2023 90 [facility] METOPROLOL SUCCINATE 50MG TAB,SA TAKE ONE TABLET BY MOUTH ONCE DAILY FOR BLOOD PRESSURE /HEART ORAL ACTIVE 06/26/2025 [id number] MAUREEN BARRON PAIGE D 2023 90 [facility] METOPROLOL SUCCINATE 50MG TAB,SA TAKE ONE TABLET BY MOUTH ONCE DAILY FOR BLOOD PRESSURE /HEART ORAL DISCONT INUED 06/19/2024 [id number] KENDALL,MOHAMUD AV 2022 90 [facility] TRIAMCINOLO NE ACETONIDE 0.1% CREAM,TOP APPLY A MODERATE AMOUNT TOPICALL Y TWICE DAILY NEEDED FOR ITCHING TOPICA L ACTIVE 10/24/2024 [id number] MAUREEN BARRON PAIGE D 2023 454 [facility] Allergies, Adverse Reactions, Alerts Combined list of allergies from Department of Defense and Veterans Affairs facilities. It does not include entries that were removed or entered in error. Substance Category Reaction Severity Reaction type Status Date Reported Comments Source LIDOCAINE Propensity to adverse reactions to drug (finding) Itching MODERATE active 2 [facility] NOVOCAIN Propensity to adverse reactions to drug (finding) Feeling agitated active 8 [facility] PROCAINE Propensity to adverse reactions to drug (finding) active 2 [facility] Immunizations Combined list of available immunizations from the Department of Defense and Veterans Affairs facilities. Immunization Series Date Given Administered By Site Reaction Lot Number CVX Code Drug Hearing Impaired Itinerant Teacher Status Comments Source COVID-19 (MODERNA), MRNA, LNP-S, PF, 50 MCG/0.5 ML (AGES 12+ YEARS) 7 2023 ALMA MAHER LEFT DELTO ID [id number] 312 complet ed [facility] INFLUENZA, HIGH-DOSE, TRIVALENT, PF 2023 ALMA MAHER LEFT DELTO ID [id number] 135 complet ed [facility] RSV, BIVALENT, PROTEIN SUBUNIT RSVPREF, DILUENT RECONSTITUTED , 0.5 ML, PF 1 2023 GRETCHEN ANDRADE LEFT DELTO ID [id number] 305 complet ed [facility] COVID-19 (MODERNA), MRNA, LNP-S, PF, 50 MCG/0.5 ML (AGES 12+ YEARS) 1 2023 GRETCHEN ANDRADE E LEFT DELTO ID [id number] 312 complet ed [facility] INFLUENZA, HIGH-DOSE, QUADRIVALENT 2022 JERRI SHAIKH LEFT DELTO ID [id number] 197 complet ed [facility] COVID-19 (MODERNA), MRNA, LNP-S, BIVALENT BOOSTER, PF, 50 MCG/0.5 ML OR 25MCG/0.25 ML DOSE 2021 JERRI SHAIKH ER M LEFT DELTO ID [id number] 229 complet ed [facility] INFLUENZA VACCINE, QUADRIVALENT, ADJUVANTED 2021 205 complet ed [facility] COVID-19 (MODERNA), MRNA, LNP-S, PF, 100 MCG/0.5ML DOSE OR 50 MCG/0.25ML DOSE 3 2021 207 complet ed MOD; [id number] ; 2 [facility] PNEUMOCOCCAL CONJUGATE PCV20, POLYSACCHARID E SIG650 CONJUGATE, ADJUVANT, PF 2021 216 complet ed [facility] COVID-19 (MODERNA), MRNA, LNP-S, PF, 100 MCG OR 50 MCG DOSE 3 2020 207 complet ed MOD; [id number]; 2 [facility] INFLUENZA, UNSPECIFIED FORMULATION 2020 88 complet ed [facility] TDAP 2020 115 complet ed [facility] COVID-19 (MODERNA), MRNA, LNP-S, PF, 100 MCG/0.5 ML DOSE 2 2020 207 complet ed MOD; [id number]; 1 [facility] COVID-19 (MODERNA), MRNA, LNP-S, PF, 100 MCG/0.5 ML DOSE 1 2020 207 complet ed MOD; [id number]; 1 [facility] [...] DOSE SEASONAL 2017 135 complet ed Partner: [facility]. Administe red by: ARLET BOLTON (VCH=[phone] [id number]). Partner 0 Lot#: [id number] Mfr: [employer] Pasteur; Dosage: 0.5 [facility] [place] [facility] PNEUMOCOCCAL POLYSACCHARID E PPV23 2016 33 complet ed Partner: [employer]. Administe red by: ARLET GUPTALANE CHE (HBV=[phone]). Partner 0 Lot#: [id number] Mfr: Merck; Dosage: 0.5 [facility] [place] [facility] INFLUENZA, HIGH DOSE SEASONAL 2016 135 complet ed Partner: [employer]. Administe red by: ARLET BOLTON (OXR=[id number]). Partner 0 Lot#: [id number] Mfr: Sanofi Pasteur; Dosage: 0.5 [facility] [place] [facility] Results Combined list of recent chemistry, hematology [...] Apr 04, 2024 05:53 PM Reporting Lab: [address] [address] Performing Lab: [facility] [address] [facility] LIVER FUNCTION ALBUMIN [MASS/VOLU ME] IN SERUM OR PLASMA 4.0 g/dL 3.5 - 5.0 04/07 Specimen Type: SERUM No comment entered. Ordering Provider: JAMILA BARRON Report Released Date/Time: Apr 04, 2024 05:53 PM Reporting Lab: [facility] [address] Performing Lab: [facility] [address] [facility] LIVER FUNCTION ALKALINE PHOSPHATAS E [ENZYMATIC ACTIVITY/V OLUME] IN SERUM OR PLASMA 118 U/L 40 - 150 04/07 Specimen Type: SERUM No comment entered. Ordering Provider: JAMILA BARRON Report Released Date/Time: Apr 04, 2024 05:53 PM Reporting Lab: [facility] [place] [facility] [address] [address] Performing Lab: [facility] [place] [facility] [address] [address] [facility] L[facility] FUNCTION ASPARTATE AMINOTRANS FERASE [ENZYMATIC ACTIVITY/V OLUME] IN SERUM OR PLASMA 30 U/L 5 - 34 04/07 Specimen Type: SERUM No comment entered. Ordering Provider: JAMILA BARRON Report Released Date/Time: Apr 04, 2024 05:53 PM Reporting Lab: [facility] [place] [facility] [address] [address] Performing Lab: [facility] [place] [address] [address] [facility] [place] [facility] LIVER FUNCTION ALANINE AMINOTRANS FERASE [ENZYMATIC ACTIVITY/V OLUME] IN SERUM OR PLASMA 23 U/L 04/07 Specimen Type: SERUM No comment entered. Ordering Provider: JAMILA BARRON Report Released Date/Time: Apr 04, 2024 05:53 PM Reporting Lab: [facility] [place] [facility] [address] [address] Performing Lab: [facility] [place] [address] [address] [facility] [place] [facility] LIVER FUNCTION BILIRUBIN. TOTAL [MASS/VOLU ME] IN SERUM OR PLASMA 1.0 mg/dL 0.2 - 1.2 04/07 Specimen Type: SERUM No comment entered. Ordering Provider: JAMILA BARRON Report Released Date/Time: Apr 04, 2024 05:53 PM Reporting Lab: [facility] [place] [facility] [address] [address] Performing Lab: [facility] [place] [address] [address] [facility] BASIC METABOLI C PANEL (fasting ) UREA NITROGEN [MASS/VOLU ME] IN SERUM OR PLASMA 22 mg/dL 7 - 25 04/07 Specimen Type: SERUM No comment entered. Ordering Provider: JAMILA BARRON Report Released Date/Time: Apr 04, 2024 05:53 PM Reporting Lab: [facility]ITALRGADSDEN REGIONAL [facility] CENTERTRN [address] [address] Performing Lab: [facility] W[facility]N [address] [address] [facility] BASIC METABOLI C PANEL (fasting ) GLUCOSE [MASS/VOLU ME] IN SERUM OR PLASMA 93 mg/dL 65 - 100 04/07 Specimen Type: SERUM No comment entered. Ordering Provider: JAMILA BARRON Report Released Date/Time: Apr 04, 2024 05:53 PM Reporting Lab: [facility]ITALRGADSDEN [facility] CENTERTRN [address] [address] Performing Lab: [facility]OSPITALRL TRN [facility] [address] [facility]ITALRGADSDEN [facility] CENTERTRN [facility] BASIC METABOLI C PANEL (fasting ) SODIUM [MOLES/VOL UME] IN SERUM OR PLASMA 139 mmol/L 135 - 145 04/07 Specimen Type: SERUM No comment entered. Ordering Provider: JAMILA BARRON Report Released Date/Time: Apr 04, 2024 05:53 PM Reporting Lab: [facility]ITALRL WSTRN [address] [address] Performing Lab: [facility] [address] [facility]ITALRGADSDEN [facility] CENTERTRN [facility] BASIC METABOLI C PANEL (fasting ) POTASSIUM [MOLES/VOL UME] IN SERUM OR PLASMA 3.9 mmol/L 3.5 - 5.0 04/07 Specimen Type: SERUM No comment entered. Ordering Provider: JAMILA BARRON Report Released Date/Time: Apr 04, 2024 05:53 PM Reporting Lab: [facility]ITALRGADSDEN REGION[facility] CENTERTRN [facility] [address] Performing Lab: [facility]ITALRL [facility]N [facility] [address] [address] [facility] BAS[facility] METABOLI C PANEL (fasting ) CHLORIDE [MOLES/VOL UME] IN SERUM OR PLASMA 102 mmol/L 100 - 110 04/07 Specimen Type: SERUM No comment entered. Ordering Provider: JAMILA BARRON Report Released Date/Time: Apr 04, 2024 05:53 PM Reporting Lab: [facility]OSPITALRNORTH [facility]OSPITALN [facility]ITALUSEWMC[facility]ALTH [address] [address] Performing Lab: [facility]OSPITALRNORTH ALABAMA SPECIALTY HOSPITALN [facility]USE[address] [address] [facility] BAS[facility] METABOLI C PANEL (fasting ) CARBON DIOXIDE, TOTAL [MOLES/VOL UME] IN SERUM OR PLASMA 26 meq/L 20 - 30 04/07 Specimen Type: SERUM No comment entered. Ordering Provider: JAMILA BARRON Report Released Date/Time: Apr 04, 2024 05:53 PM Reporting Lab: [facility]PITALRNORTH ALABAMA SPECIALTY HOSPITALN [address] [address] Performing Lab: [facility]PITALRNORTH AL[facility] HOSPITALN [facility] [address] [facility] BASIC METABOLI C PANEL (fasting ) CREATININE [MASS/VOLU ME] IN SERUM OR PLASMA 0.92 mg/dL 0.50 - 1.40 04/07 Specimen Type: SERUM No comment entered. Ordering Provider: JAMILA BARRON Report Released Date/Time: Apr 04, 2024 05:53 PM Reporting Lab: [facility]PITALRGADSDEN REGIONAL MEDICAL CENTERTRN [facility]USE[address] [address] Performing Lab: [facility]ITALRGADSDEN REGIONAL [facility] CENTERTRN [facility] [address] [facility] BAS[facility] METABOLI C PANEL (fasting ) GLOMERULAR FILTRATION RATE/1.73 SQ M.PREDICTE D [VOLUME RATE/AREA] IN SERUM, PLASMA OR BLOOD BY CREATININE -BASED FORMULA (CKD-EPI 2020) 82 mL/min 60 04/07 Specimen Type: SERUM No comment entered. Ordering Provider: JAMILA BARRON Report Released Date/Time: Apr 04, 2024 05:53 PM Reporting Lab: [facility] [address] [address] Performing Lab: [facility] [address] [address] [facility] [place] [facility] TSH THYROTROPI N [UNITS/VOL UME] IN SERUM OR PLASMA 2.34 u[IU]/mL 0.35 - 5.00 04/07 Specimen Type: SERUM No comment entered. Ordering Provider: JAMILA BARRON Report Released Date/Time: Apr 04, 2024 05:53 PM Reporting Lab: [facility] [place] [facility] [address] [address] Performing Lab: [facility] [place] [address] [address] [facility] [place] [facility] LIPID PANEL FASTING CHOLESTERO L [MASS/VOLU ME] IN SERUM OR PLASMA 139 mg/dL 04/07 Specimen Type: SERUM No comment entered. Ordering Provider: JAMILA BARRON Report Released Date/Time: Apr 04, 2024 05:53 PM Reporting Lab: [facility] [place] [address] [address] Performing Lab: [facility] [place] [address] [address] [facility] [place] [facility] LIPID PANEL FASTING TRIGLYCERI DE [MASS/VOLU ME] IN SERUM OR PLASMA 136 mg/dL 0 - 150 04/07 Specimen Type: SERUM No comment entered. Ordering Provider: JAMILA BARRON Report Released Date/Time: Apr 04, 2024 05:53 PM Reporting Lab: [facility] [place] [facility] [address] [address] Performing Lab: [facility] [place] [address] [address] [facility] [place] [facility] LIPID PANEL FASTING CHOLESTERO L IN LDL [MASS/VOLU ME] IN SERUM OR PLASMA BY MONCHO Briscoe 72 mg/dL 0 - 129 04/07 Specimen Type: SERUM No comment entered. Ordering Provider: JAMILA BARRON Report Released Date/Time: Apr 04, 2024 05:53 PM Reporting Lab: [facility]OSPITALRL TRN [facility]ITALUSETS [facility] [address] [address] Performing Lab: [facility]OSPITALRL TRN [facility]ITALUSEW[facility] [address] [address] [facility]ITALRL W[facility]N [facility] LIPID PANEL FASTING CHOLESTERO L.TOTAL/CH OLESTEROL IN HDL [MASS RATIO] IN SERUM OR PLASMA 3.5 04/07 Specimen Type: SERUM No comment entered. Ordering Provider: JAMILA BARRON Report Released Date/Time: Apr 04, 2024 05:53 PM Reporting Lab: [facility]ITALRL TRN [facility] [address] Performing Lab: [facility]ITALRL TRN [facility] [address] [facility]ITALRL TRN [facility]ITALUSE [facility] LIPID PANEL FASTING CHOLESTERO L IN HDL [MASS/VOLU ME] IN SERUM OR PLASMA 40 mg/dL 40 - 60 04/07 Specimen Type: SERUM No comment entered. Ordering Provider: JAMILA BARRON Report Released Date/Time: Apr 04, 2024 05:53 PM Reporting Lab: [facility]ITALRL TRN [facility] [address] Performing Lab: [facility] [address] [facility]ITALRL TRN [facility]ITALUSE [facility] CBC AND DIFF (AUTO) LEUKOCYTES [#/VOLUME] IN BLOOD BY AUTOMATED COUNT 7.77 10*3/uL 4.50 - 11.00 04/07 Specimen Type: BLOOD No comment entered. Ordering Provider: JAMILA BARRON Report Released Date/Time: Apr 04, 2024 05:53 PM Reporting Lab: [facility]ITALRL TRN [facility] [address] Performing Lab: [facility] TRN [facility] [address] [facility]RL [facility] [place] [facility] CBC AND DIFF (AUTO) ERYTHROCYT ES [#/VOLUME] IN BLOOD BY AUTOMATED COUNT 4.29 10*6/uL 4.23 - 5.66 04/07 Specimen Type: BLOOD No comment entered. Ordering Provider: JAMILA BARRON Report Released Date/Time: Apr 04, 2024 05:53 PM Reporting Lab: [facility]ITALRL [facility] [place] [address] [address] Performing Lab: [facility] [place] [facility] [address] [address] [facility]ITALRGADSDEN REGIONAL [facility] CENTERTRN [place] [facility] CBC AND DIFF (AUTO) HEMOGLOBIN [MASS/VOLU ME] IN BLOOD 14.2 g/dL 12.8 - 17 04/07 Specimen Type: BLOOD No comment entered. Ordering Provider: JAMILA BARRON Report Released Date/Time: Apr 04, 2024 05:53 PM Reporting Lab: [facility]RL TRN [place] [address] [address] Performing Lab: [facility] [place] [address] [address] [facility]ITALRGADSDEN REGION[facility] CENTERTRN [place] [facility] CBC AND DIFF (AUTO) HEMATOCRIT [VOLUME FRACTION] OF BLOOD BY AUTOMATED COUNT 41.1 39.2 - 50.4 04/07 Specimen Type: BLOOD No comment entered. Ordering Provider: JAMILA BARRON Report Released Date/Time: Apr 04, 2024 05:53 PM Reporting Lab: [facility] [place] [address] [address] Performing Lab: [facility] [place] [address] [address] [facility]RL TRN [place] [facility] CBC AND DIFF (AUTO) MCV [ENTITIC VOLUME] BY AUTOMATED COUNT 95.8 fL 82 - 99 04/07 Specimen Type: BLOOD No comment entered. Ordering Provider: JAMILA BARRON Report Released Date/Time: Apr 04, 2024 05:53 PM Reporting Lab: [facility] [place] [address] [address] Performing Lab: [facility] [place] [facility] [address] [address] [facility] [place] [facility] CBC AND DIFF (AUTO) MCHC [MASS/VOLU ME] BY AUTOMATED COUNT 34.5 g/dL 30.8 - 35.1 04/07 Specimen Type: BLOOD No comment entered. Ordering Provider: JAMILA BARRON Report Released Date/Time: Apr 04, 2024 05:53 PM Reporting Lab: [facility] [place] [facility] [address] [address] Performing Lab: [facility] [place] [facility] [address] [address] [facility] [place] [facility] CBC AND DIFF (AUTO) PLATELETS [#/VOLUME] IN BLOOD BY AUTOMATED COUNT 184 10*3/uL 140 - 360 04/07 Specimen Type: BLOOD No comment entered. Ordering Provider: JAMILA BARRON Report Released Date/Time: Apr 04, 2024 05:53 PM Reporting Lab: [facility] [place] [facility] [address] [address] Performing Lab: [facility] [place] [facility] [address] [address] [facility] [place] [facility] CBC AND DIFF (AUTO) ERYTHROCYT E DISTRIBUTI ON WIDTH [RATIO] BY AUTOMATED COUNT 13.1 12.0 - 16.0 04/07 Specimen Type: BLOOD No comment entered. Ordering Provider: JAMILA BARRON Report Released Date/Time: Apr 04, 2024 05:53 PM Reporting Lab: [facility] [place] [facility] [address] [address] Performing Lab: [facility] [place] [facility] [address] [address] [facility] [place] [facility] CBC AND DIFF (AUTO) MONOCYTES [#/VOLUME] IN BLOOD BY AUTOMATED COUNT 0.98 10*3/uL 0.30 - 1.10 04/07 Specimen Type: BLOOD No comment entered. Ordering Provider: JAMILA BARRON Report Released Date/Time: Apr 04, 2024 05:53 PM Reporting Lab: [facility] [place] [facility] [address] [address] Performing Lab: [facility] [place] [facility] [address] [address] [facility] [place] [facility] CBC AND DIFF (AUTO) MCH [ENTITIC MASS] BY AUTOMATED COUNT 33.1 pg 26.2 - 32.6 04/07 H Specimen Type: BLOOD No comment entered. Ordering Provider: JAMILA BARRON Report Released Date/Time: Apr 04, 2024 05:53 PM Reporting Lab: [facility] [place] [facility] [address] [address] Performing Lab: [facility] [place] [facility] [address] [address] [facility] [place] [facility] CBC AND DIFF (AUTO) NEUTROPHIL S/100 LEUKOCYTES IN BLOOD BY AUTOMATED COUNT 52.3 43.7 - 75.8 04/07 Specimen Type: BLOOD No comment entered. Ordering Provider: JAMILA BARRON Report Released Date/Time: Apr 04, 2024 05:53 PM Reporting Lab: [facility] [place] [facility] [address] [address] Performing Lab: [facility] [place] [facility] [address] [address] [facility] [place] [facility] CBC AND DIFF (AUTO) LYMPHOCYTE S/100 LEUKOCYTES IN BLOOD BY AUTOMATED COUNT 31.7 14.0 - 42.3 04/07 Specimen Type: BLOOD No comment entered. Ordering Provider: JAMILA BARRON Report Released Date/Time: Apr 04, 2024 05:53 PM Reporting Lab: [facility] [place] [facility] [address] [address] Performing Lab: [facility] [place] [facility] [address] [address] [facility] [place] [facility] CBC AND DIFF (AUTO) MONOCYTES/ 100 LEUKOCYTES IN BLOOD BY AUTOMATED COUNT 12.6 5.1 - 13.7 04/07 Specimen Type: BLOOD No comment entered. Ordering Provider: JAMILA BARRON Report Released Date/Time: Apr 04, 2024 05:53 PM Reporting Lab: [facility] [place] [facility] [address] [address] Performing Lab: [facility] [place] [facility] [address] [address] [facility] [place] [facility] CBC AND DIFF (AUTO) EOSINOPHIL S/100 LEUKOCYTES IN BLOOD BY AUTOMATED COUNT 2.3 0.4 - 6.8 04/07 Specimen Type: BLOOD No comment entered. Ordering Provider: JAMILA BARRON Report Released Date/Time: Apr 04, 2024 05:53 PM Reporting Lab: [facility] [place] [facility] [address] [facility] [address] Performing Lab: [facility] [place] [facility] [address] [address] [facility] [facility] CBC AND DIFF (AUTO) BASOPHILS/ 100 LEUKOCYTES IN BLOOD BY AUTOMATED COUNT 0.6 0.1 - 2.0 04/07 Specimen Type: BLOOD No comment entered. Ordering Provider: JAMILA BARRON Report Released Date/Time: Apr 04, 2024 05:53 PM Reporting Lab: [facility] [place] [facility] [address] [address] Performing Lab: [facility] [place] [facility] [address] [facility] [address] [facility] [place] [facility] CBC AND DIFF (AUTO) NEUTROPHIL S [#/VOLUME] IN BLOOD BY AUTOMATED COUNT 4.06 10*3/uL 2.20 - 7.60 04/07 Specimen Type: BLOOD No comment entered. Ordering Provider: JAMILA BARRON Report Released Date/Time: Apr 04, 2024 05:53 PM Reporting Lab: [facility] [place] [facility] [address] [facility] [facility] [address] Performing Lab: [facility] [place] [facility] [address] [address] [facility] [place] [facility] CBC AND DIFF (AUTO) LYMPHOCYTE S [#/VOLUME] IN BLOOD BY AUTOMATED COUNT 2.46 10*3/uL 1.00 - 3.20 04/07 Specimen Type: BLOOD No comment entered. Ordering Provider: JAMILA BARRON Report Released Date/Time: Apr 04, 2024 05:53 PM Reporting Lab: [facility] [place] [address] [address] Performing Lab: [facility] [place] [address] [address] [facility] [place] [facility] CBC AND DIFF (AUTO) EOSINOPHIL S [#/VOLUME] IN BLOOD BY AUTOMATED COUNT 0.18 10*3/uL 0.03 - 0.44 04/07 Specimen Type: BLOOD No comment entered. Ordering Provider: JAMILA BARRON Report Released Date/Time: Apr 04, 2024 05:53 PM Reporting Lab: [facility] [place] [address] [address] Performing Lab: [facility] [place] [address] [address] [facility] [place] [facility] CBC AND DIFF (AUTO) BASOPHILS [#/VOLUME] IN BLOOD BY AUTOMATED COUNT 0.05 10*3/uL 0.01 - 0.13 04/07 Specimen Type: BLOOD No comment entered. Ordering Provider: JAMILA BARRON Report Released Date/Time: Apr 04, 2024 05:53 PM Reporting Lab: [facility] [place] [address] [address] Performing Lab: [facility] [place] [address] [address] [facility] [place] [facility] CBC AND DIFF (AUTO) IMMATURE GRANULOCYT ES/100 LEUKOCYTES IN BLOOD BY AUTOMATED COUNT 0.5 0.0 - 0.7 04/07 Specimen Type: BLOOD No comment entered. Ordering Provider: JAMILA BARRON Report Released Date/Time: Apr 04, 2024 05:53 PM Reporting Lab: [facility] [place] [address] [address] Performing Lab: [facility] [place] [facility] [address] [facility] [address] [facility] [place] [facility] CBC AND DIFF (AUTO) IMMATURE GRANULOCYT ES [#/VOLUME] IN BLOOD 0.04 10*3/uL 0.00 - 0.06 04/07 Specimen Type: BLOOD No comment entered. Ordering Provider: JAMILA BARRON Report Released Date/Time: Apr 04, 2024 05:53 PM Reporting Lab: [facility] [place] [address] [address] Performing Lab: [facility] [place] [address] [address] [facility] [place] [facility] CBC AND DIFF (AUTO) NRBC % 0.0 0.0 - 0.0 04/07 Specimen Type: BLOOD No comment entered. Ordering Provider: JAMILA BARRON Report Released Date/Time: Apr 04, 2024 05:53 PM Reporting Lab: [facility] [place] [address] [address] Performing Lab: [facility] [place] [address] [address] [facility] [place] [facility] CBC AND DIFF (AUTO) NRBC, ABS 0.00 10*3/uL 0.00 - 0.00 04/07 Specimen Type: BLOOD No comment entered. Ordering Provider: JAMILA BARRON Report Released Date/Time: Apr 04, 2024 05:53 PM Reporting Lab: [facility] [place] [address] [address] Performing Lab: [facility] [place] [address] [address] [facility] [place] [facility]INALYS [facility] CLEAN CATCH COLOR OF URINE Yellow 04/07 Specimen Type: URINE Comment: If Glucose = >500 and Ketones are positive, please alert the Physician. Ordering Provider: JAMILA BARRON Report Released Date/Time: Apr 04, 2024 05:53 PM Reporting Lab: [facility] [place] [address] [address] Performing Lab: [facility] [place] [facility] [address] [address] [facility] [place] [facility] URINALYS IS CLEAN CATCH APPEARANCE OF URINE Clear 04/07 Specimen Type: URINE Comment: If Glucose = >500 and Ketones are positive, please alert the Physician. Ordering Provider: JAMILA BARRON Report Released Date/Time: Apr 04, 2024 05:53 PM Reporting Lab: [facility] [place] [facility] [address] [address] Performing Lab: [facility] [place] [facility] [address] [address] [facility] [place] [facility] URINALYS IS CLEAN CATCH GLUCOSE [MASS/VOLU ME] IN URINE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 Z48.01 Encount er for change or removal of surgica l wound dressin g
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
Yossi HARRINGTON E 03/31 [facility] Outpatient Encounter [id number]/09 [facility] OFFICE O/P EST LOW 20 MIN [id number] 1. 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
RANCHO RODRIGUEZ 04/28 [facility] CONFORMITY EVALUATION [id number] Diagnos is: ICD-10- CM Z46.1 Encount er for fitting and adjustm ent of hearing aid<br/ > Yossi HARRINGTON 05/05 [facility] Out[facility] Encounter [id number] 05/08 [facility] Out[facility] Encounter [id number] 06/03 [facility] Outpatient Encounter [id number] 06/06 [facility] Outpatient Encounter [id number] 06/25 [facility] Outpatient Encounter [id number] 06/25 [facility] Out[facility] Encounter [id number] 06/26 [facility] Out[facility] Encounter [id number] 07/02 [facility] Out[facility] Encounter [id number] 07/14 [facility] Out[facility] Encounter [id number] 07/14 [facility] Social History Combined list of available smoking, tobacco, and other social history from Department of Defense and Veterans Affairs facilities. Social History Type Response Date Comment Sour e Tobacco smoking status NHIS VA-TOBACCO FORMER USER 10/16/2023 [facility] [place] [facility] History of tobacco use VA-TOBACCO QUIT 15 YRS OR MORE 10/16/2023 [facility] [place] [facility] History of tobacco use VA-TOBACCO FORMER USER 07/04/2022 [facility] [place] [facility] History of tobacco use NSG NO TOBACCO USE PAST 30 DAYS 03/27/2022 [facility] History of tobacco use NSG NO TOBACCO USE PAST 30 DAYS 03/05/2022 [facility] History of tobacco use NSG NO TOBACCO USE PAST 30 DAYS 03/02/2022 [facility] History of tobacco use VA-TOBACCO FORMER USER 06/28/2021 [facility] [place] [facility] History of tobacco use VA-TOBACCO FORMER USER 05/26/2020 [facility] [place] [facility] History of tobacco use VA-TOBACCO NEVER USED 05/23/2018 [facility] [place] [facility] Plan of Care List of future care activities from Department of Veterans Affairs facilities. Additional future care activities may be listed in the Assessment and Plan section. Date/Time Care Activity Care Activity Detail Facili ty 07/20/2024 AMBULATORY - MEDICINE AMBULATORY - MEDICI NE [facility] [place] [facility] 08/14/2024 AMBULATORY - MEDICINE AMBULATORY - MEDICI NE [facility] [place] [facility] 10/07/2024 AMBULATORY - MEDICINE AMBULATORY - MEDICI NE [facility] [place] [facility] 10/28/2024 AMBULATORY - MEDICINE AMBULATORY - MEDICI NE [facility] [place] [facility] 06/06/2024 Consult Order COMMUNITY CARE-O RTHO GENERAL Cons Donor Relations Officer's Choice [facility] [place] [facility] 06/26/2024 Consult Order COMMUNITY CARE-G EC NON-SKILLED HOME HEALTH AIDE Cons Donor Relations Officer's Choice [facility] [place] [facility] 07/14/2024 Consult Order COMMUNITY CARE-C ARDIOLOGY Cons Donor Relations Officer's Choice [facility] [place] [facility] Advance Directives List of completed, amended, or rescinded Advance Directives on record at [facility] facilities. An actual copy of the Directive is not included. Date Advance Directive Provider Source 02/19/2022 ADVANCE DIRECTIVE JOCE CASTORENA [facility] 11/16/2020 ADVANCE DIRECTIVE BYRON BARRON [facility]
--- OUTSIDE RECORDS SUMMARY | 2024-07-20 08:30 | XMS_ITS ---
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 [facility] [place] Address [address] [place] [id number] Care Team Providers Care Phlebotomist Medical Lab Assistant Name Role Phone JOSUE SIMMONS Primary Care [...] Dec 19, 2007 MEDICAR E SUPPLEM E [id number] NYDIA HUERTA UL PATIENT [employer] MEDICARE SUPPLEMEN YORDAN Dec 19, 2007 MEDICAR E SUPPLEM E [id number] [phone] NYDIA HUERTA UL PATIENT [employer] [place] MEDICARE SUPPLEMEN YORDAN BANKE RS Dec 19, 2007 NONE [id number] [phone] NYDIA HUERTA UL PATIENT MEDICARE (WNR) MEDICARE (M) PART B Oct 13, [id number] [facility] NYDIA HUERTA UL PATIENT MEDICARE (WNR) MEDICARE (M) PART B Oct 13, [id number] [facility] NYDIA HUERTA UL PATIENT MEDICARE (WNR) MEDICARE (M) PART B Oct 13, 2006 PART B [id number] NYDIA HUERTA PATIENT MEDICARE (WNR) MEDICARE (M) PART B Oct 13, 2006 PART B [id number] NYDAI HUERTA PATIENT MEDICARE (WNR) MEDICARE (M) PART A Sep 13, 2003 PART A [id number] NYDIA HUERTA PATIENT MEDICARE (WNR) MEDICARE (M) PART A Sep 13, 2003 PART A [id number] NYDIA HUERTA PATIENT MEDICARE (WNR) MEDICARE (M) PART A Sep 13, 2003 PART A [id number] NYDIA HUERTA PATIENT MEDICARE (WNR) MEDICARE (M) PART A Sep 13, 2003 PART A [id number] [phone] NYDIA HUERTA PATIENT Selected Encounter This section includes the information on record at [place] for the Encounter. Date/Time Encounter Type Encounter Description Reason Pro vider Source Jul 14, 2024 09:35 PM Outpatient Encounter PRIMARY CARE/MEDICINE IHE Encounter [...] 20, 2024 08:00 AM AMBULATORY - MEDICINE [place] [facility] [place] [facility] Aug 14, 2024 03:00 PM AMBULATORY - MEDICINE [place] [facility] [place] [facility] Oct 07, 2024 09:00 AM AMBULATORY - MEDICINE [place] [facility] [place] [facility] Oct 28, 2024 08:00 AM AMBULATORY - MEDICINE [facility] [place] [facility] Active, Pending, and Scheduled Orders [...] PM Consult Order COMMUNITY CARE-ORTHO GENERAL Cons [employer] Technician's Choice [place] [facility] [place] [facility] Jun 26, 2024 04:42 PM Consult Order COMMUNITY CARE-GEC NON-SKILLED HOME HEALTH AIDE Cons [employer] Technician's Choice [place] [facility] [place] [facility] Jul 14, 2024 10:34 AM Consult Order COMMUNITY CARE-CARDIOLOGY Cons [employer] Technician's Choice [place] [facility] [place] [facility] Social History: Smoking Status (Most [...] YRS OR MORE [place] [facility] [place] [facility] Tobacco Use History This section includes a history of the smoking, or tobacco-related health factors, that were collected on or before the date of the Encounter. The data comes from the [place] facility where the Encounter took place. Date/Time Smoking Status/Tobacco Use Comment F acility Oct 16, 2023 01:30 PM VA-TOBACCO QUIT 15 YRS OR MORE [facility] [place] [facility] Jul 04, 2022 11:00 AM VA-TOBACCO FORMER USER [facility] [place] [facility] Jul 04, 2022 11:00 AM VA-TOBACCO QUIT 15 YRS OR MORE [facility] [place] [facility] Jun 28, 2021 10:30 AM VA-TOBACCO FORMER USER [facility] [place] [facility] Jun 28, 2021 10:30 AM VA-TOBACCO QUIT 15 YRS OR MORE [place] [facility] [place] [facility] May 26, 2020 08:00 AM VA-TOBACCO FORMER USER [facility] May 26, 2020 08:00 AM [place] QU[place] 15 YRS OR MORE [facility] May 23, 2018 11:21 AM [place] NEVER USED [facility] Advance Directives: All historical and current Section [...] Feb 19, 2022 ADVANCE DIRECTIVE JOCE CASTORENA [facility] November 16, 2020 ADVANCE DIRECTIVE JOSUE SIMMONS [facility] Encounter Notes: All associated encounter notes This section contains the clinical notes associated to the Encounter. Date/Time Encounter Note(s) Provider Source Jul 14, 2024 09:35 PM NONVA CONSULT: LOCAL TITLE: MD/OUTSIDE CONSULT REPORT SUMMARY STANDARD TITLE: NONVA CONSULT DATE OF NOTE: JUL 14, 2024@21:35 ENTRY DATE: JUL 14, 2024@21:35:37 AUTHOR: JOSUE SIMMONS EXP COSIGNER: URGENCY: STATUS: COMPLETED 07-06-24 office visit [facility] Displaced fracture left fibula 01-21-2024 left ankle ORIF X-ray today shows good hardware Plan: Patient given Gerhard wrap and a walking boot. Follow-up 2 weeks. /eleanor/ Josue Simmons MD Staff Physician Signed: 07/14/2024 21:36 JOSUE SIMMONS [employer] [facility] [facility] [employer]
--- OUTSIDE RECORDS SUMMARY | 2024-07-20 08:30 | XMS_ITS | Patient Health Record ---
Author Organization [facility] [place] [place] Address [address] [place] [address] Care Team Providers Care Sour Bleaching Pleater Name Role Phone Josue Simmons MD Primary Care Provider Lyn Aquino Unavailable [phone] Allergies Allergen (clinical drug ingredient) Drug/Non Drug [...] primary osteoarthritis of the ankle and/or foot ([id number]) Primary osteoarthrit is, right ankle and foot (M19.071) Active confirmed Encounters Encounter Location Date Provider Diagnosis [facility] [place] [address] [facility] [place] [address] 03/09/2024 Lyn Lund [facility] [place] [address] [facility] [place] [address] 03/12/2024 Lyn Lund [facility] [place] [address] [facility] [place] [address] 04/02/2024 Lyn Lund Plan Of Treatment Pending Test Test Name Order Date X ray : Foot, right 3V 01/20/2015 X ray : Ankle, right 3V 03/04/2017 Insurance Providers Payer Name Payer Address Payer Phone Subscriber Number Group Number Insured Name Patient Relationship to Insured Coverage Start Date Coverage End Date Medicare [employer] [address] [facility] [place] [address] [id number] Reed Mallory Self - patient is the insured [employer] [address] [place] [address] Reed Mallory Self - patient is the [...]
--- OUTSIDE RECORDS SUMMARY | 2024-07-20 08:30 | XMS_ITS ---
Author Organization [facility] Address [address] [place] [address] Care Team Providers Care Appellate Law Clerk Name Role Phone Josue Simmons MD Primary Care Provider Unavailab Lyn Damico [phone] REASON FOR VISIT 04/23/24 Encounters Encounter Location Date Provider Diagnosis [facility] [address] [place] [address] 04/02/2024 Lyn Lund Plan Of Treatment No Information Progress Notes * Reed MALLORY HDOB:1940 (83 yo M)Acc No.[id number]:04/02/2024 Patient:?Reed Mallory :1940???Age:83 Y???Sex:Male Address:[address] [place] [id number] * true * Date:? Generated for Printi philip/Ilda/eTransmitting on:?07/20/2024 08:30 AM EST
--- OUTSIDE RECORDS SUMMARY | 2024-07-20 08:30 | XMS_ITS | Encounter Summary ---
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 Organization [facility] [place] Address [address] [place] [address] Care Team Providers Care Pediatric Cns Name Role Phone JOSUE SIMMONS Primary Care [...] Dec 19, 2007 MEDICAR E SUPPLEM E [id number] [phone] NYDIA HUERTA UL PATIENT [employer] MEDICARE SUPPLEMEN YORDAN Dec 19, 2007 MEDICAR E SUPPLEM E [id number] NYDIA HUERTA UL PATIENT [employer] [place] MEDICARE SUPPLEMEN YORDAN BANKE RS Dec 19, 2007 NONE [id number] NYDIA HUERTA UL PATIENT MEDICARE (WNR) MEDICARE (M) PART B Oct 13, 2006 PART B [id number] [phone] NYDIA HUERTA UL PATIENT MEDICARE (WNR) MEDICARE (M) PART B Oct 13, 2006 PART B [id number] [place] UL PATIENT MEDICARE (WNR) MEDICARE (M) PART B Oct 13, 2006 PART B [id number] NYDIA HUERTA PATIENT MEDICARE (WNR) MEDICARE (M) PART B Oct 13, 2006 PART B [id number] NYDIA HUERTA PATIENT MEDICARE (WNR) MEDICARE (M) PART A Sep 13, 2003 PART A [id number] [phone] NYDIA HUERTA PATIENT MEDICARE (WNR) MEDICARE (M) PART A Sep 13, 2003 PART A [id number] NYDIA HUERTA PATIENT MEDICARE (WNR) MEDICARE (M) PART A Sep 13, 2003 PART A [id number] NYDIA HUERTA PATIENT MEDICARE (WNR) MEDICARE (M) PART A Sep 13, 2003 PART A [id number] [phone] NYDIA HUERTA PATIENT Selected Encounter This [...] - MEDICINE [place] [facility] [place] [facility] Aug 14, 2024 03:00 PM AM[place]UL[place] [facility] [place] [facility] Oct 07, 2024 09:00 AM AM[place]UL[place] [facility] [place] [facility] Oct 28, 2024 08:00 AM AMBULATORY - MEDICINE [facility] [place] [facility] Active, Pending, and Scheduled Orders [...] PM Consult Order COMMUNITY CARE-[facility]THO GENERAL Cons Industrial Electrician Journeyman's Choice [place] [facility] [place] [facility] Jun 26, 2024 04:42 PM Consult Order COMMUNITY CARE-GEC NON-SKILLED HOME HEALTH AIDE Cons Industrial Electrician [employer] [place] [facility] [place] [facility] Jul 14, 2024 10:34 AM Consult Order COMMUNITY CARE-CARDIOLOGY Cons Industrial Electrician Journeyman[employer] Choice [place] [facility] [place] [facility] Social History: Smoking Status (Most [...] 2023 01:30 PM VA-TOBACCO FORMER USER [place] [facility] [place] [facility] Tobacco Use [...] YRS OR MORE [place] [facility] [place] [facility] Jul 04, 2022 11:00 AM VA-TOBACCO FORMER USER [place] [facility] [place] [facility] Jul 04, 2022 11:00 AM VA-TOBACCO QUIT 15 YRS OR MORE [facility] [place] [facility] Jun 28, 2021 10:30 AM VA-TOBACCO FORMER USER [facility] [place] [facility] Jun 28, 2021 10:30 AM VA-TOBACCO QUIT 15 YRS OR MORE [place] [facility] [place] [facility] May 26, 2020 08:00 AM VA-TOBACCO FORMER USER [place] [facility] [place] [facility] May 26, 2020 08:00 AM VA-TOBACCO QUIT 15 YRS [place] MORE [place] [facility] May 23, 2018 11:21 AM VA-TOBACCO NEVER USED [facility] Advance Directives: All historical and current [...] Feb 19, 2022 ADVANCE DIRECTIVE JOCE CASTORENA [facility] November 16, 2020 ADVANCE DIRECTIVE JOSUE SIMMONS [facility] Encounter Notes: All associated encounter notes [...] Patient Name: ALYCIA HUERTA Patient Primary Phone: [phone] Patient Primary [address]: [address] [place] [id number] Patient : 1940 Patient Age: 83 Call Back Number: [phone] Caller/Recipient Relation to Patient: Self Caller Name: ALYCIA HUERTA Administrative Administrative Note Reason: Other Administrative Note Comments: [place] is requesting a consult referral to teacher selection specialist @ [facility]. Dr. Hou Please call vet back once request has been approved. Best call back IMPORTANT: This note was created by [facility] Clinical Contact Center staff. Please do [...] Staff Physician Signed: 07/14/2024 10:34 STEPHANIE BANKS [place] [facility] [place] [facility] Jul 14, 2024 08:37 AM ADMINISTRATIVE NOTE: LOCAL TITLE: CCC: SCHEDULING ADMINISTRATION STANDARD TITLE: ADMINISTRATIVE NOTE DATE OF NOTE: JUL 14, 2024@08:37:52 ENTRY DATE: JUL 14, 2024@08:37:53 AUTHOR: KEYSHA DEE EXP COSIGNER: URGENCY: STATUS: COMPLETED CCC: SCHEDULING ADMINISTRATION Has ADDENDA Patient Demographics Patient Name: ALYCIA HUERTA Patient Primary Phone: [phone] Patient Primary Address: [address] [place] [id number] Patient : 1940 Patient Age: 83 Call Back Number: [phone] Caller/Recipient Relation to Patient: Self Caller Name: ALYCIA HUERTA Administrative Administrative Note Reason: Other Administrative Note Comments: [place] is requesting a consult referral to teacher selection specialist @ [facility]. Dr. Hou Please call vet back once request has been approved. Best call back IMPORTANT: This note was created by [facility] Clinical Contact Center staff. Please do not alert the staff member by adding them as a signer for future communications. Alerts are not monitored by this user. /eleanor/ KEYSHA WEINER [facility] AMSA Signed: 07/14/2024 08:37 Receipt Acknowledged By: 07/16/2024 09:06 /eleanor/ Stephanie Banks RN, BSN Primary Care 07/20/2024 07:28 /es/ COBY MAHER LPN IVORY CARVER 07/14/2024 ADDENDUM STATUS: COMPLETED done. please sign if agree. /eleanor/ Stephanie Banks RN, BSN Primary Care Signed: 07/14/2024 10:19 Receipt Acknowledged By: 07/14/2024 10:35 /eleanor/ Josue Simmons MD Staff Physician 07/14/2024 ADDENDUM STATUS: COMPLETED Done. /eleanor/ Josue Simmons MD Staff Physician Signed: 07/14/2024 10:34 KEYSHA DEE [place] [facility]
--- OUTSIDE RECORDS SUMMARY | 2024-07-20 08:30 | XMS_ITS ---
Author Organization [facility] Address [address] [place] [address] Care Team Providers Care Unified Communications Architect Name Role Phone Josue Simmons MD Primary Care Provider Unavailab melinda Lyn Lund Unavailable [phone] Allergies Allergen (clinical drug ingredient) Drug/Non Drug [...] 04/23/2024 Encounters Encounter Location Date Provider Diagnosis [facility] [address] [place] [address] 04/23/2024 Lyn Lund Plan Of Treatment No Information Progress Notes * Reed MALLORY HDOB:1940 (83 yo M)Acc No.[id number]:04/23/2024 Progress Notes Patient:Reed VANCE Provider:?Lyn Lund DPM :1940???Age:83 Y???Sex:Male Chu e:04/23/2024 Address:[address] [place], [place] [id number] Pcp:Josue Simmons MD Subjective: * Chief Complaints: [...] Lund DPM Date:?2023 Generated for Yokasta palacios/Ilda/Sunil on:?07/20/2024 08:30 AM EST
--- OUTSIDE RECORDS SUMMARY | 2024-07-20 08:30 | XMS_ITS ---
Author Organization [facility] Address [address] [place] [address] Care Team Providers Care Photography And Prints Curator Name Role Phone Josue Simmons MD Primary Care Provider Unavailab Lyn Damico [phone] REASON FOR VISIT SAP TRAINER PPWK Entered Encounters Encounter Location Date Provider Diagnosis [facility] [address] [place] [address] 03/12/2024 Lyn Lund Plan Of Treatment No Information Progress Notes * Reed MALLORY HDOB:1940 (83 yo M)Acc No.[id number]:03/12/2024 Patient:?Reed Mallory :1940???Age:83 Y???Sex:Male Address:[address] [place] [id number] * true * Date:? Generated for Printi philip/Ilda/eTransmitting on:?07/20/2024 08:30 AM EST
== END 2024-07-20 08:15 | disposition home or self-care (01) ==
LOC: HO.HOSX 08:14
DX: M25.572 Pain in left ankle and joints of left foot (principal); S82.62XA Displaced fracture of lateral malleolus of left fibula, initial encounter for closed fracture
CPT/HCPCS: 73610; 99212

== ENCOUNTER 2024-07-20 13:44 | Outpatient (AMB) | payer OTHER, SELFPAY ==
--- NOTE | 2024-07-20 13:54 | MHC.OFFVIS ---
Intake Visit Reasons: OV: Left Ankle ORIF 01/21/24-w/xray swelling check Intake Note: Reed is a 83 year old male who presents with his EXPLORATION GEOLOGIST, Tova, today for a follow up visit s/p left ankle ORIF 01/21/24 w/ NE. Patient reports he is still having pain in is ankle. Allergies niacin Allergy (Severe, Verified 07/20/24 14:02) Upset Stomach procaine [From Novocain] Allergy (Severe, Verified 07/20/24 14:02) I GET MEAN simvastatin Adverse Reaction (Severe, Verified 07/20/24 14:02) myopathy HPI HPI OV: Left Ankle ORIF 01/21/24-w/xray swelling check: Details: Patient is an 83 YO M who presents to the office for f/u visit for L ankle ORIF, DOS 01/21/24. Today, the patient reports that his swelling has continued to improve, but he is still experiencing pain in his ankle. Patient reports that pain is also improving. He has been elevating as much as possible, and feels that this has been helping. Patient reports that he has only been briefly weight-bearing, but nothing extended. Denies redness. No other acute complaints or concerns at this time. [facility] Medical History Hyperlipidemia HTN (hypertension) CAD (coronary artery disease) Murmur, cardiac Chest pain COPD (chronic obstructive pulmonary disease) Asbestosis Surgical History S/P TAVR (transcatheter aortic valve replacement) Stented coronary artery Hx of cardiac catheterization Family History Father CAD (coronary artery disease) Mother No problems noted. Social History Patient Tobacco Use Status: Former Tobacco user Tobacco use type: Cigarette and Cigar Years Smoked: 14 years old Review of Systems Const All systems reviewed & are unremarkable except as noted in HPI and below Physical Exam Extrem Other: On inspection, there is no deformity of the L ankle Incision sites are well healed No evidence of discharge There there is noted to be some discoloration in the lateral aspect of the patient's ankle No ecchymosis Vzjk-ya-xwuxqxcl edema noted of the left ankle, improved from last visit Evidence of skin breakdown noted at previous evaluation appears to be resolving at this time Patient reports no tenderness to palpation about the left lateral malleolus Patient is able to plantar flex and dorsiflex the foot, however this is limited due to swelling Distal sensation intact Capillary refill brisk Results Reviewed Results Reviewed: X-rays obtained in the office today and independently reviewed by me, Demetrius Contreras PA-C, demonstrate well-healing fracture of the left lateral malleolus with orthopedic hardware in place and in satisfactory clinical alignment. No evidence of re fracture, damage to orthopedic hardware, or other injury Assessment & Plan Assessment & Plan (1) Ankle fracture, lateral malleolus, closed: Code(s): S82.63XA - Displaced fracture of lateral malleolus of unspecified fibula, initial encounter for closed fracture Category: Medical Qualifiers: Encounter type: initial encounter Fracture alignment: displaced Laterality: left Qualified Code(s): S82.62XA - Displaced fracture of lateral malleolus of left fibula, initial encounter for closed fracture Plan 1. Lateral malleolus fracture of the left ankle status post ORIF DOS 01/21/2024 Patient was informed at this time that he is doing well and continuing to get the swelling in his left ankle down Patient is also educated that he needs to continue to have his ankle elevated consistently above heart level to allow the swelling to go down further Patient is also provided with a Gerhard wrap and new walking boot to provide gentle compression to the leg while elevating to encourage decrease in swelling Patient is advised that he can trial short weight-bearing terms, but is advised to continue to avoid long-term weight bearing to prevent recurrent severe swelling Patient was amenable to this plan Patient will follow-up in 2 weeks for reassessment of swelling, sooner with any acute concerns Orders: Orders XR ankle LT min 3V 07/20/24 M25.572 - Pain in left ankle and joints of left foot Coding Level of Care Code Est Pt Level 3 (06058) Diagnoses Closed displaced fracture of lateral malleolus of left fibula, initial encounter S82.62XA Encounter type: initial encounter Fracture alignment: displaced Laterality: left
--- OUTSIDE RECORDS SUMMARY | 2024-07-20 16:07 | XMS_ITS | Continuity of Care Document ---
Author Name [facility] Organization [facility] Care Team Providers Care Rehabilitation Engineer Name Role Phone [facility] Unavailable Unavailable Problems Combined list of problems from Department of Defense and Veterans Affairs facilities. It does not include entries that were removed or entered in error. Problem Status Onset Date Problem Type Date of Resolution Comments Source Chronic dermatitis Active 023 Condition Oct 05, 2022 Entered By: BYRON BARRON Comment: referred to dermatology [facility] Chest Pain (SCT [id number]) Active Condition Jan 02, 2022 Entered By: BYRON BARRON Comment: ordered stress test [facility] COPD - Chronic Obstructive Pulmonary Disease (SCT 69168788) Active Condition Dec 28, 2021 Entered By: BYRON BARRON Comment: on inhalers [facility] Cataract Active Condition Oct 12, 2020 Entered By: BYRON BARRON Comment: referred for surgery [facility] HTN - Hypertension (SCT [id number]) Active Condition Oct 21, 2020 Entered By: BYRON BARRON Comment: treated witn medication [facility] Hypercholesterolemia (SCT [id number]) Active Condition Oct 21, 2020 Entered By: [...] of uncertain behavior of skin Active Diagnosis [facility] Diagnosis: ICD-10-CM Z13.89 Encounter for screening for other disorder Active Diagnosis [facility] Diagnosis: ICD-10-CM R21 Rash and other nonspecific skin eruption Active Diagnosis [facility] Diagnosis: ICD-10-CM Z23 Encounter for immunization Active Diagnosis [facility] Diagnosis: ICD-10-CM H67.3 Otitis media in diseases classified elsewhere, bilateral Active Diagnosis [facility] [place] [facility] Medications Combined list of outpatient medications from [...] TWICE DAILY FOR INFECTIO N ORAL 11/15/2023 [id number] MAUREEN BARRON 2023 20 [facility] ASPIRIN 81MG TAB,CHEWABL E CHEW ONE TABLET BY MOUTH ONCE DAILY ORAL ACTIVE JANINE HAMMOND R 2021 [facility] ATORVASTATI N CA 80MG TAB TAKE ONE TABLET BY MOUTH AT BEDTIME ORAL ACTIVE 06/26/2025 [id number] MAUREEN BARRON PAIGE D 2023 90 [facility] ATORVASTATI N [place] 80MG TAB TAKE ONE TABLET BY MOUTH AT BEDTIME ORAL DISCONT INUED 06/19/2024 [id number] MOHAMUD ARGUETA AV 2022 90 [facility] ATORVASTATI N [place] 80MG TAB TAKE ONE TABLET BY MOUTH ONCE DAILY FOR CHOLESTE ROL ORAL DISCONT INUED 03/07/2024 [id number] MAUREEN BARROND D 2022 90 [facility] CEPHALEXIN 500MG CAP TAKE ONE CAPSULE BY MOUTH EVERY 8 HOURS FOR INFECTIO N ORAL 04/04/2024 [id number] MAMTA STERN 2023 21 [facility] EZETIMIBE 10MG TAB TAKE ONE TABLET BY MOUTH ONCE DAILY TO LOWER CHOLESTE ROL ORAL ACTIVE 06/26/2025 [id number] MAUREEN BARRON PAIGE D 2023 90 [facility] EZETIMIBE 10MG TAB TAKE ONE TABLET BY MOUTH ONCE DAILY TO LOWER CHOLESTE ROL ORAL DISCONT INUED 06/19/2024 [id number] MOHAMUD ARGUETA AV 2022 90 [facility] FLUTICASONE 250MCG/SALM ETEROL 50MCG INHL,ORAL,D ISKUS,60 INHALE 1 PUFF BY MOUTH TWICE DAILY - RINSE MOUTH AFTER USE RESPIR ATORY (INHAL ATION) 03/07/2024 [id number] MAUREEN BARRON D 2022 3 [facility] FLUTICASONE PROPIONATE 50MCG/SPRAY SOLN,NASAL, 16GM INSTILL 1 SPRAY INTO EACH NOSTRIL ONCE DAILY NEEDED FOR NASAL IRRITATI ON/INFLA MMATION NASAL 04/15/2024 [id number] MAUREEN BARRON PAIGE D 2022 1 [facility] HYDROCHLORO THIAZIDE 25MG TAB TAKE ONE TABLET BY MOUTH ONCE DAILY TO PREVENT FLUID/CO NTROL BLOOD PRESSURE ORAL DISCONT INUED 03/07/2024 [id number] MAUREEN BARRON PAIGE D 2022 90 [facility] HYDROCHLORO THIAZIDE 25MG TAB TAKE ONE TABLET BY MOUTH ONCE DAILY ORAL 06/19/2024 [id number] MOHAMUD ARGUETA AV 2023 90 [facility] METOPROLOL SUCCINATE 50MG TAB,SA TAKE ONE TABLET BY MOUTH ONCE DAILY FOR BLOOD PRESSURE /HEART ORAL ACTIVE 06/26/2025 [id number] 4 MAUREEN BARRON PAIGE D 2023 90 [facility] METOPROLOL SUCCINATE 50MG TAB,SA TAKE ONE TABLET BY MOUTH ONCE DAILY FOR BLOOD PRESSURE /HEART ORAL DISCONT INUED 06/19/2024 [id number] KENDALL,MOHAMUD AV 2022 90 [facility] TRIAMCINOLO NE ACETONIDE 0.1% CREAM,TOP APPLY A MODERATE AMOUNT TOPICALL Y TWICE DAILY NEEDED FOR ITCHING TOPICA L ACTIVE 10/24/2024 [id number] MAUREEN BARRON PAIGE D 2023 454 [facility] Allergies, Adverse Reactions, Alerts Combined list of allergies from Department of Defense and Veterans Affairs facilities. It does not include entries that were removed or entered in error. Substance Category Reaction Severity Reaction type Status Date Reported Comments Source LIDOCAINE Propensity to adverse reactions to drug (finding) Itching MODERATE active 2 [facility] [place] Propensity to adverse reactions to drug (finding) Feeling agitated active 8 [facility] Propensity to adverse reactions to drug (finding) active 2 [facility] Immunizations Combined list of available immunizations from the Department of Defense and Veterans Affairs facilities. Immunization Series Date Given Administered By Site Reaction Lot Number CVX Code Drug Branch Operations Coordinator Status Comments Source COVID-19 (MODERNA), MRNA, LNP-S, PF, 50 MCG/0.5 ML (AGES 12+ YEARS) 7 2023 ALMA MAHER LEFT DELTO ID [id number] 312 complet ed [facility] INFLUENZA, HIGH-DOSE, TRIVALENT, PF 2023 ALMA MAHER LEFT DELTO ID [id number] 135 complet ed [facility] RSV, BIVALENT, PROTEIN SUBUNIT RSVPREF, DILUENT RECONSTITUTED , 0.5 ML, PF 1 2023 GRETCHEN ANDRADE LEFT DELTO ID [id number] 305 complet ed [facility] COVID-19 (MODERNA), MRNA, LNP-S, PF, 50 MCG/0.5 ML (AGES 12+ YEARS) 1 2023 GRETCHEN ANDRADE E LEFT DELTO ID [id number] 312 complet ed [facility] INFLUENZA, HIGH-DOSE, QUADRIVALENT 2022 JERRI SHAIKH LEFT DELTO ID [id number] 197 complet ed [facility] COVID-19 (MODERNA), MRNA, LNP-S, BIVALENT BOOSTER, PF, 50 MCG/0.5 ML OR 25MCG/0.25 ML DOSE 2021 JERRI SHAIKH ER M LEFT DELTO ID [id number] 229 complet ed [facility] INFLUENZA VACCINE, QUADRIVALENT, ADJUVANTED 2021 205 complet ed [facility] COVID-19 (MODERNA), MRNA, LNP-S, PF, 100 MCG/0.5ML DOSE OR 50 MCG/0.25ML DOSE 3 2021 207 complet ed MOD; [id number] ; 2 [facility] PNEUMOCOCCAL CONJUGATE PCV20, POLYSACCHARID E [id number] CONJUGATE, ADJUVANT, PF 2021 216 complet ed [facility] COVID-19 (MODERNA), MRNA, LNP-S, PF, 100 MCG OR 50 MCG DOSE 3 2020 207 complet ed MOD; [id number]; 2 [facility] INFLUENZA, UNSPECIFIED FORMULATION 2020 88 complet ed [facility] TDAP 2020 115 complet ed [facility] COVID-19 (MODERNA), MRNA, LNP-S, PF, 100 MCG/0.5 ML DOSE 2 2020 207 complet ed MOD; [id number]; 1 [facility] COVID-19 (MODERNA), MRNA, LNP-S, PF, 100 MCG/0.5 ML DOSE 1 2020 207 complet ed MOD; [id number]; 1 [facility] [...] DOSE SEASONAL 2017 135 complet ed Partner: [facility]. Administe red by: ARLET BOLTON (OYL=[id number] [phone]). Partner 0 Lot#: [id number] Mfr: [employer] Pasteur; Dosage: 0.5 [facility] PNEUMOCOCCAL POLYSACCHARID E PPV23 2016 33 complet ed Partner: [facility]. Administe red by: ARLET GUPTALANE CHE (CCW=[id number]). Partner 0 Lot#: [id number] Mfr: Merck; Dosage: 0.5 [facility] INFLUENZA, HIGH DOSE SEASONAL 2016 135 complet ed Partner: [facility]. Administe red by: ARLET BOLTON (PFL=[id number]). Partner 0 Lot#: [id number] Mfr: Sanofi Pasteur; Dosage: 0.5 [facility] Results Combined list of recent chemistry, hematology [...] Apr 04, 2024 05:53 PM Reporting Lab: [address] [address] Performing Lab: [address] [address] [facility] BASIC METABOLI C PANEL (fasting ) GLUCOSE [MASS/VOLU ME] IN SERUM OR PLASMA 93 mg/dL 65 - 100 04/07 Specimen Type: SERUM No comment entered. Ordering Provider: JAMILA BARRON Report Released Date/Time: Apr 04, 2024 05:53 PM Reporting Lab: [facility] [address] Performing [facility]: [facility] [address] [address] [facility] BASIC METABOLI C PANEL (fasting ) SODIUM [MOLES/VOL UME] IN SERUM OR PLASMA 139 mmol/L 135 - 145 04/07 Specimen Type: SERUM No comment entered. Ordering Provider: JAMILA BARRON Report Released Date/Time: Apr 04, 2024 05:53 PM Reporting Lab: [facility] [address] Performing Lab: [facility] [address] [address] [facility]ENTERUSE [facility] BASIC METABOLI C PANEL (fasting ) POTASSIUM [MOLES/VOL UME] IN SERUM OR PLASMA 3.9 mmol/L 3.5 - 5.0 04/07 Specimen Type: SERUM No comment entered. Ordering Provider: JAMILA BARRON Report Released Date/Time: Apr 04, 2024 05:53 PM Reporting Lab: [facility] [address] [address] Performing Lab: [facility] [address] [address] [facility] BASIC METABOLI C PANEL (fasting ) CHLORIDE [MOLES/VOL UME] IN SERUM OR PLASMA 102 mmol/L 100 - 110 04/07 Specimen Type: SERUM No comment entered. Ordering Provider: JAMILA BARRON Report Released Date/Time: Apr 04, 2024 05:53 PM Reporting Lab: [facility] [address] [address] Performing Lab: [facility]TRN [facility] [address] [facility]N [facility] BASIC METABOLI C PANEL (fasting ) CARBON DIOXIDE, TOTAL [MOLES/VOL UME] IN SERUM OR PLASMA 26 meq/L 20 - 30 04/07 Specimen Type: SERUM No comment entered. Ordering Provider: JAMILA BARRON Report Released Date/Time: Apr 04, 2024 05:53 PM Reporting Lab: [facility]N [address] [address] Performing Lab: [facility] [address] [address] [facility] BASIC METABOLI C PANEL (fasting ) CREATININE [MASS/VOLU ME] IN SERUM OR PLASMA 0.92 mg/dL 0.50 - 1.40 04/07 Specimen Type: SERUM No comment entered. Ordering Provider: JAMILA BARRON Report Released Date/Time: Apr 04, 2024 05:53 PM Reporting Lab: [facility]N [facility] [address] [facility] [address] Performing Lab: [facility]ITALRL TRN [facility] [address] [facility] [address] [facility] BASIC METABOLI C PANEL (fasting ) GLOMERULAR FILTRATION RATE/1.73 SQ M.PREDICTE D [VOLUME RATE/AREA] IN SERUM, PLASMA OR BLOOD BY CREATININE -BASED FORMULA (CKD-EPI 2020) 82 mL/min 60 04/07 Specimen Type: SERUM No comment entered. Ordering Provider: JAMILA BARRON Report Released Date/Time: Apr 04, 2024 05:53 PM Reporting Lab: [facility]ITALN [address] [address] Performing Lab: [facility] [address] [address] [facility] CBC AND DIFF (AUTO) LEUKOCYTES [#/VOLUME] IN BLOOD BY AUTOMATED COUNT 7.77 10*3/uL 4.50 - 11.00 04/07 Specimen Type: BLOOD No comment entered. Ordering Provider: JAMILA BARRON Report Released Date/Time: Apr 04, 2024 05:53 PM Reporting Lab: [facility]N [facility]ENTERUSE[address] [address] Performing Lab: [facility]ITALN [facility]ENTERUSE[address] [address] [facility] CBC AND DIFF (AUTO) ERYTHROCYT ES [#/VOLUME] IN BLOOD BY AUTOMATED COUNT 4.29 10*6/uL 4.23 - 5.66 04/07 Specimen Type: BLOOD No comment entered. Ordering Provider: JAMILA BARRON Report Released Date/Time: Apr 04, 2024 05:53 PM Reporting Lab: [facility] [address] [facility] [address] Performing Lab: [facility] [address] [facility] [address] [facility] CBC AND DIFF (AUTO) HEMOGLOBIN [MASS/VOLU ME] IN BLOOD 14.2 g/dL 12.8 - 17 04/07 Specimen Type: BLOOD No comment entered. Ordering Provider: JAMILA BARRON Report Released Date/Time: Apr 04, 2024 05:53 PM Reporting Lab: [facility] [facility] [address] [facility] [address] Performing Lab: [facility] [facility] [address] [facility] [address] [facility] CBC AND DIFF (AUTO) HEMATOCRIT [VOLUME FRACTION] OF BLOOD BY AUTOMATED COUNT 41.1 39.2 - 50.4 04/07 Specimen Type: BLOOD No comment entered. Ordering Provider: JAMILA BARRON Report Released Date/Time: Apr 04, 2024 05:53 PM Reporting Lab: [facility] [facility] [address] [facility] [address] Performing Lab: [facility] [facility] [address] [facility] [address] [facility] CBC AND DIFF (AUTO) MCV [ENTITIC VOLUME] BY AUTOMATED COUNT 95.8 fL 82 - 99 04/07 Specimen Type: BLOOD No comment entered. Ordering Provider: JAMILA BARRON Report Released Date/Time: Apr 04, 2024 05:53 PM Reporting Lab: [facility] [facility] [address] [facility] [address] Performing Lab: [facility] [facility] [address] [facility] [address] [facility] CBC AND DIFF (AUTO) MCHC [MASS/VOLU ME] BY AUTOMATED COUNT 34.5 g/dL 30.8 - 35.1 04/07 Specimen Type: BLOOD No comment entered. Ordering Provider: JAMILA BARRON Report Released Date/Time: Apr 04, 2024 05:53 PM Reporting Lab: [facility] [address] [facility] [address] Performing Lab: [facility] [facility] [address] [facility] [address] [facility] CBC AND DIFF (AUTO) PLATELETS [#/VOLUME] IN BLOOD BY AUTOMATED COUNT 184 10*3/uL 140 - 360 04/07 Specimen Type: BLOOD No comment entered. Ordering Provider: JAMILA BARRON Report Released Date/Time: Apr 04, 2024 05:53 PM Reporting Lab: [facility] [facility] [address] [facility] [address] Performing Lab: [facility] [facility] [address] [facility] [address] [facility] CBC AND DIFF (AUTO) ERYTHROCYT E DISTRIBUTI ON WIDTH [RATIO] BY AUTOMATED COUNT 13.1 12.0 - 16.0 04/07 Specimen Type: BLOOD No comment entered. Ordering Provider: JAMILA BARRON Report Released Date/Time: Apr 04, 2024 05:53 PM Reporting Lab: [facility] [facility] [address] [facility] [address] Performing Lab: [facility] [facility] [address] [facility] [address] [facility] CBC AND DIFF (AUTO) MONOCYTES [#/VOLUME] IN BLOOD BY AUTOMATED COUNT 0.98 10*3/uL 0.30 - 1.10 04/07 Specimen Type: BLOOD No comment entered. Ordering Provider: JAMILA BARRON Report Released Date/Time: Apr 04, 2024 05:53 PM Reporting Lab: [facility] [facility] [address] [facility] [address] Performing Lab: [facility] [facility] [address] [facility] [address] [facility] CBC AND DIFF (AUTO) MCH [ENTITIC MASS] BY AUTOMATED COUNT 33.1 pg 26.2 - 32.6 04/07 H Specimen Type: BLOOD No comment entered. Ordering Provider: JAMILA BARRON Report Released Date/Time: Apr 04, 2024 05:53 PM Reporting Lab: [facility] [facility] [address] [facility] [address] Performing Lab: [facility] [facility] [address] [facility] [address] [facility] CBC AND DIFF (AUTO) NEUTROPHIL S/100 LEUKOCYTES IN BLOOD BY AUTOMATED COUNT 52.3 43.7 - 75.8 04/07 Specimen Type: BLOOD No comment entered. Ordering Provider: JAMILA BARRON Report Released Date/Time: Apr 04, 2024 05:53 PM Reporting Lab: [facility] [place] [address] [address] Performing Lab: [facility] [address] [address] [facility] CBC AND DIFF (AUTO) LYMPHOCYTE S/100 LEUKOCYTES IN BLOOD BY AUTOMATED COUNT 31.7 14.0 - 42.3 04/07 Specimen Type: BLOOD No comment entered. Ordering Provider: JAMILA BARRON Report Released Date/Time: Apr 04, 2024 05:53 PM Reporting Lab: [facility] [address] [address] Performing Lab: [facility] [address] [address] [facility] CBC AND DIFF (AUTO) MONOCYTES/ 100 LEUKOCYTES IN BLOOD BY AUTOMATED COUNT 12.6 5.1 - 13.7 04/07 Specimen Type: BLOOD No comment entered. Ordering Provider: JAMILA BARRON Report Released Date/Time: Apr 04, 2024 05:53 PM Reporting Lab: [facility] [place] [address] [address] Performing Lab: [facility] [address] [facility] [address] [facility] CBC AND DIFF (AUTO) EOSINOPHIL S/100 LEUKOCYTES IN BLOOD BY AUTOMATED COUNT 2.3 0.4 - 6.8 04/07 Specimen Type: BLOOD No comment entered. Ordering Provider: JAMILA BARRON Report Released Date/Time: Apr 04, 2024 05:53 PM Reporting Lab: [facility] [facility] [address] [facility] [address] Performing Lab: [facility] [facility] [address] [facility] [address] [facility] CBC AND DIFF (AUTO) BASOPHILS/ 100 LEUKOCYTES IN BLOOD BY AUTOMATED COUNT 0.6 0.1 - 2.0 04/07 Specimen Type: BLOOD No comment entered. Ordering Provider: JAMILA BARRON Report Released Date/Time: Apr 04, 2024 05:53 PM Reporting Lab: [facility] [place] [address] [address] Performing Lab: [facility] [place] [address] [address] [facility] CBC AND DIFF (AUTO) NEUTROPHIL S [#/VOLUME] IN BLOOD BY AUTOMATED COUNT 4.06 10*3/uL 2.20 - 7.60 04/07 Specimen Type: BLOOD No comment entered. Ordering Provider: JAMILA BARRON Report Released Date/Time: Apr 04, 2024 05:53 PM Reporting Lab: [facility] [place] [facility] [address] [facility] [address] Performing Lab: [facility] [place] [address] [address] [facility] CBC AND DIFF (AUTO) LYMPHOCYTE S [#/VOLUME] IN BLOOD BY AUTOMATED COUNT 2.46 10*3/uL 1.00 - 3.20 04/07 Specimen Type: BLOOD No comment entered. Ordering Provider: JAMILA BARRON Report Released Date/Time: Apr 04, 2024 05:53 PM Reporting Lab: [facility] [place] [facility] [address] [facility] [address] Performing Lab: [facility] [place] [facility] [address] [facility] [address] [facility] CBC AND DIFF (AUTO) EOSINOPHIL S [#/VOLUME] IN BLOOD BY AUTOMATED COUNT 0.18 10*3/uL 0.03 - 0.44 04/07 Specimen Type: BLOOD No comment entered. Ordering Provider: JAMILA BARRON Report Released Date/Time: Apr 04, 2024 05:53 PM Reporting Lab: [facility] [place] [facility] [address] [facility] [address] Performing Lab: [facility] [place] [address] [address] [facility] CBC AND DIFF (AUTO) BASOPHILS [#/VOLUME] IN BLOOD BY AUTOMATED COUNT 0.05 10*3/uL 0.01 - 0.13 04/07 Specimen Type: BLOOD No comment entered. Ordering Provider: JAMILA BARRON Report Released Date/Time: Apr 04, 2024 05:53 PM Reporting Lab: [facility] [place] [address] [address] Performing Lab: [facility] [place] [address] [address] [facility] CBC AND DIFF (AUTO) IMMATURE GRANULOCYT ES/100 LEUKOCYTES IN BLOOD BY AUTOMATED COUNT 0.5 0.0 - 0.7 04/07 Specimen Type: BLOOD No comment entered. Ordering Provider: JAMILA BARRON Report Released Date/Time: Apr 04, 2024 05:53 PM Reporting Lab: [facility] [place] [address] [address] Performing Lab: [facility] [place] [address] [address] [facility] CBC AND DIFF (AUTO) IMMATURE GRANULOCYT ES [#/VOLUME] IN BLOOD 0.04 10*3/uL 0.00 - 0.06 04/07 Specimen Type: BLOOD No comment entered. Ordering Provider: JAMILA BARRON Report Released Date/Time: Apr 04, 2024 05:53 PM Reporting Lab: [facility] [facility] [address] [facility] [address] Performing Lab: [facility] [facility] [address] [facility] [address] [facility] CBC AND DIFF (AUTO) NRBC % 0.0 0.0 - 0.0 04/07 Specimen Type: BLOOD No comment entered. Ordering Provider: JAMILA BARRON Report Released Date/Time: Apr 04, 2024 05:53 PM Reporting Lab: [facility] [place] [facility] [address] [facility] [address] Performing Lab: [facility] [place] [address] [address] [facility] CBC AND DIFF (AUTO) NRBC, ABS 0.00 10*3/uL 0.00 - 0.00 04/07 Specimen Type: BLOOD No comment entered. Ordering Provider: JAMILA BARRON Report Released Date/Time: Apr 04, 2024 05:53 PM Reporting Lab: [facility] [place] [address] [address] Performing Lab: [facility] [place] [address] [address] [facility] [place] LIPID PANEL FASTING CHOLESTERO L [MASS/VOLU ME] IN SERUM OR PLASMA 139 mg/dL 04/07 Specimen Type: SERUM No comment entered. Ordering Provider: JAMILA BARRON Report Released Date/Time: Apr 04, 2024 05:53 PM Reporting Lab: [facility] [place] [facility] [address] [facility] [address] Performing Lab: [facility] [place] [address] [address] [facility] [place] [facility] LIPID PANEL FASTING TRIGLYCERI DE [MASS/VOLU ME] IN SERUM OR PLASMA 136 mg/dL 0 - 150 04/07 Specimen Type: SERUM No comment entered. Ordering Provider: JAMILA BARRON Report Released Date/Time: Apr 04, 2024 05:53 PM Reporting Lab: [facility] [place] [facility] [address] [facility] [address] Performing Lab: [facility] [place] [facility] [address] [facility] [address] [facility] [place] [facility] LIPID PANEL FASTING CHOLESTERO L IN LDL [MASS/VOLU ME] IN SERUM OR PLASMA BY CALCULAMARCIE N 72 mg/dL 0 - 129 04/07 Specimen Type: SERUM No comment entered. Ordering Provider: JAMILA BARRON Report Released Date/Time: Apr 04, 2024 05:53 PM Reporting Lab: [facility] [place] [facility] [address] [facility] [address] Performing Lab: [facility] [place] [address] [address] [facility] [place] [facility] LIPID PANEL FASTING CHOLESTERO L.TOTAL/CH OLESTEROL IN HDL [MASS RATIO] IN SERUM OR PLASMA 3.5 04/07 Specimen Type: SERUM No comment entered. Ordering Provider: JAMILA BARRON Report Released Date/Time: Apr 04, 2024 05:53 PM Reporting Lab: [facility] [place] [facility] [address] [facility] [address] Performing Lab: [facility] [place] [facility] [address] [facility] [address] [facility] [place] [facility] LIPID PANEL FASTING CHOLESTERO L IN HDL [MASS/VOLU ME] IN SERUM OR PLASMA 40 mg/dL 40 - 60 04/07 Specimen Type: SERUM No comment entered. Ordering Provider: JAMILA BARRON Report Released Date/Time: Apr 04, 2024 05:53 PM Reporting Lab: [facility] [place] [facility] [address] [facility] [address] Performing Lab: [facility] [place] [facility] [address] [facility] [address] [facility] [place] [facility] LIVER FUNCTION PROTEIN [MASS/VOLU ME] IN SERUM OR PLASMA 6.8 g/dL 6.0 - 8.3 04/07 Specimen Type: SERUM No comment entered. Ordering Provider: JAMILA BARRON Report Released Date/Time: Apr 04, 2024 05:53 PM Reporting Lab: [facility] [place] [facility] [address] [facility] [address] Performing Lab: [facility] [place] [facility] [address] [facility] [address] [facility] LIVER FUNCTION ALBUMIN [MASS/VOLU ME] IN SERUM OR PLASMA 4.0 g/dL 3.5 - 5.0 04/07 Specimen Type: SERUM No comment entered. Ordering Provider: JAMILA BARRON Report Released Date/Time: Apr 04, 2024 05:53 PM Reporting Lab: [facility] [address] Performing Lab: [facility] [place] [address] [address] [facility] LIVER FUNCTION ALKALINE PHOSPHATAS E [ENZYMATIC ACTIVITY/V OLUME] IN SERUM OR PLASMA 118 U/L 40 - 150 04/07 Specimen Type: SERUM No comment entered. Ordering Provider: JAMILA BARRON Report Released Date/Time: Apr 04, 2024 05:53 PM Reporting Lab: [facility] [place] [address] [address] Performing Lab: [facility] [place] [address] [address] [facility] [place] [facility] LIVER FUNCTION ASPARTATE AMINOTRANS FERASE [ENZYMATIC ACTIVITY/V OLUME] IN SERUM OR PLASMA 30 U/L 5 - 34 04/07 Specimen Type: SERUM No comment entered. Ordering Provider: JAMILA BARRON Report Released Date/Time: Apr 04, 2024 05:53 PM Reporting Lab: [facility] [place] [address] [address] Performing Lab: [facility] [place] [address] [place] [address] [facility] [place] [facility] LIVER FUNCTION ALANINE AMINOTRANS FERASE [ENZYMATIC ACTIVITY/V OLUME] IN SERUM OR PLASMA 23 U/L 04/07 Specimen Type: SERUM No comment entered. Ordering Provider: JAMILA BARRON Report Released Date/Time: Apr 04, 2024 05:53 PM Reporting Lab: [facility] [place] [address] [address] Performing Lab: [facility] [place] [address] [address] [facility] [place] [facility] LIVER FUNCTION BILIRUBIN. TOTAL [MASS/VOLU ME] IN SERUM OR PLASMA 1.0 mg/dL 0.2 - 1.2 04/07 Specimen Type: SERUM No comment entered. Ordering Provider: JAMILA BARRON Report Released Date/Time: Apr 04, 2024 05:53 PM Reporting Lab: [facility] [place] [address] [address] Performing Lab: [facility] [place] [address] [address] [facility] [place] [facility] TSH THYROTROPI N [UNITS/VOL UME] IN SERUM OR PLASMA 2.34 u[IU]/mL 0.35 - 5.00 04/07 Specimen Type: SERUM No comment entered. Ordering Provider: JAMILA BARRON Report Released Date/Time: Apr 04, 2024 05:53 PM Reporting Lab: [facility] [place] [address] [address] Performing Lab: [facility] [place] [address] [address] [facility] [place] [facility] URINALYS IS CLEAN CATCH COLOR OF URINE Yellow 04/07 Specimen Type: URINE Comment: If Glucose = >500 and Ketones are positive, please alert the Physician. Ordering Provider: JAMILA BARRON Report Released Date/Time: Apr 04, 2024 05:53 PM Reporting Lab: [facility] [place] [address] [address] Performing Lab: [facility] [place] [facility] [address] [facility] [address] [facility] [place] [facility] URINALYS IS CLEAN CATCH APPEARANCE OF URINE Clear 04/07 Specimen Type: URINE Comment: If Glucose = >500 and Ketones are positive, please alert the Physician. Ordering Provider: JAMILA BARRON Report Released Date/Time: Apr 04, 2024 05:53 PM Reporting Lab: [facility] [place] [facility] [address] [facility] [address] Performing Lab: [facility] [place] [facility] [address] [facility] [address] [facility] [place] [facility] URINALYS IS CLEAN CATCH GLUCOSE [MASS/VOLU ME] IN URINE Normalmg /dL 04/07 Specimen Type: URINE Comment: If Glucose = >500 and Ketones are positive, please alert the Physician. Ordering Provider: JAMILA BARRON Report Released Date/Time: Apr 04, 2024 05:53 PM Reporting Lab: [facility] [place] [facility] [address] [facility] [address] Performing Lab: [facility] [place] [facility] [address] [facility] [address] [facility] [place] [facility] URINALYS IS CLEAN CATCH KETONES [MASS/VOLU ME] IN URINE BY TEST STRIP NEGATIVE mg/dL 04/07 Specimen Type: URINE Comment: If Glucose = >500 and Ketones are positive, please alert the Physician. Ordering Provider: JAMILA BARRON Report Released Date/Time: Apr 04, 2024 05:53 PM Reporting Lab: [facility] [place] [facility] [address] [facility] [address] Performing Lab: [facility] [place] [facility] [address] [facility] [address] [facility] [place] [facility] URINALYS IS CLEAN CATCH ERYTHROCYT ES [PRESENCE] IN URINE SEDIMENT BY LIGHT MICROSCOPY NEGATIVE mg/dL 04/07 Specimen Type: URINE Comment: If Glucose = >500 and Ketones are positive, please alert the Physician. Ordering Provider: JAMILA BARRON Report Released Date/Time: Apr 04, 2024 05:53 PM Reporting Lab: [facility] [place] [facility] [address] [facility] [address] Performing Lab: [facility] [place] [facility] [address] [facility] [address] [facility] [place] [facility] URINALYS IS CLEAN CATCH PROTEIN [MASS/VOLU ME] IN URINE BY TEST STRIP 10 mg/dL 04/07 Specimen Type: URINE Comment: If Glucose = >500 and Ketones are positive, please alert the Physician. Ordering Provider: JAMILA BARRON Report Released Date/Time: Apr 04, 2024 05:53 PM Reporting Lab: [facility] [place] [facility] [address] [facility] [address] Performing Lab: [facility] [place] [facility] [address] [facility] [address] [facility] [place] [facility] URINALYS IS CLEAN CATCH NITRITE [PRESENCE] IN URINE NEGATIVE mg/dL 04/07 Specimen Type: URINE Comment: If Glucose = >500 and Ketones are positive, please alert the Physician. Ordering Provider: JAMILA BARRON Report Released Date/Time: Apr 04, 2024 05:53 PM Reporting Lab: [facility] [place] [facility] [address] [facility] [address] Performing Lab: [facility] [place] [facility] [address] [facility] [address] [facility] [place] [facility] URINALYS IS CLEAN CATCH BILIRUBIN. TOTAL [PRESENCE] IN URINE NEGATIVE mg/dL 04/07 Specimen Type: URINE Comment: If Glucose = >500 and Ketones are positive, please alert the Physician. Ordering Provider: JAMILA BARRON Report Released Date/Time: Apr 04, 2024 05:53 PM Reporting Lab: [facility] [place] [facility] [address] [facility] [address] Performing Lab: [facility] [place] [facility] [address] [facility] [address] [facility] [place] [facility] URINALYS IS CLEAN CATCH SPECIFIC GRAVITY OF URINE BY REFRACTOME TRY 1.024 1.016 - 1.022 04/07 H Specimen Type: URINE Comment: If Glucose = >500 and Ketones are positive, please alert the Physician. Ordering Provider: JAMILA BARRON Report Released Date/Time: Apr 04, 2024 05:53 PM Reporting Lab: [facility] [place] [facility] [address] [facility] [address] Performing Lab: [facility] [place] [facility] [address] [facility] [address] [facility] [place] [facility] URINALYS IS CLEAN CATCH PH OF URINE BY TEST STRIP 7.0 5.0 - 9.0 04/07 Specimen Type: URINE Comment: If Glucose = >500 and Ketones are positive, please alert the Physician. Ordering Provider: JAMILA BARRON Report Released Date/Time: Apr 04, 2024 05:53 PM Reporting Lab: [facility] [place] [facility] [address] [facility] [address] Performing Lab: [facility] [place] [facility] [address] [facility] [address] [facility] [place] [facility] URINALYS IS CLEAN CATCH UROBILINOG EN [MASS/VOLU ME] IN URINE BY TEST STRIP Normalmg /dL <2.0 - 2.0 04/07 Specimen Type: URINE Comment: If Glucose = >500 and Ketones are positive, please alert the Physician. Ordering Provider: JAMILA BARRON Report Released Date/Time: Apr 04, 2024 05:53 PM Reporting Lab: [facility] [place] [facility] [address] [facility] [address] Performing Lab: [facility] [place] [facility] [address] [facility] [address] [facility] [place] [facility] URINALYS IS CLEAN CATCH LEUKOCYTE ESTERASE [PRESENCE] IN URINE BY TEST STRIP NEGATIVE 04/07 Specimen Type: URINE Comment: If Glucose = >500 and Ketones are positive, please alert the Physician. Ordering Provider: JAMILA BARRON Report Released Date/Time: Apr 04, 2024 05:53 PM Reporting Lab: [facility] [place] [facility] [address] [facility] [address] Performing Lab: [facility] [place] [facility] [address] [facility] [address] [facility] [place] [facility] BASIC METABOLI C PANEL (fasting ) UREA NITROGEN [MASS/VOLU ME] IN SERUM OR PLASMA 16 mg/dL 7 - 25 10/07 Specimen Type: SERUM No comment entered. Ordering Provider: JAMILA BARRON Report Released Date/Time: Oct 05, 2023 11:58 PM Reporting Lab: [facility] [place] [facility] [address] [facility] [address] Performing Lab: [facility] [place] [facility] [address] [facility] [address] [facility] [place] [facility] BASIC METABOLI C PANEL (fasting ) GLUCOSE [MASS/VOLU ME] IN SERUM OR PLASMA 102 mg/dL 65 - 100 10/07 H Specimen Type: SERUM No comment entered. Ordering Provider: JAMILA BARRON Report Released Date/Time: Oct 05, 2023 11:58 PM Reporting Lab: [facility] [place] [facility] [address] [facility] [address] Performing Lab: [facility] [place] [facility] [address] [facility] [address] [facility] [place] [facility] BASIC METABOLI C PANEL (fasting ) SODIUM [MOLES/VOL UME] IN SERUM OR PLASMA 143 mmol/L 135 - 145 10/07 Specimen Type: SERUM No comment entered. Ordering Provider: JAMILA BARRON Report Released Date/Time: Oct 05, 2023 11:58 PM Reporting Lab: [facility] [place] [facility] [address] [facility] [address] Performing Lab: [facility] [place] [facility] [address] [facility] [address] [facility] [place] [facility] BASIC METABOLI C PANEL (fasting ) POTASSIUM [MOLES/VOL UME] IN SERUM OR PLASMA 4.4 mmol/L 3.5 - 5.0 10/07 Specimen Type: SERUM No comment entered. Ordering Provider: JAMILA BARRON Report Released Date/Time: Oct 05, 2023 11:58 PM Reporting Lab: [facility] [place] [facility] [address] [facility] [address] Performing Lab: [facility] [address] [address] [facility] [place] [facility] BASIC METABOLI C PANEL (fasting ) CHLORIDE [MOLES/VOL UME] IN SERUM OR PLASMA 106 mmol/L 100 - 110 10/07 Specimen Type: SERUM No comment entered. Ordering Provider: JAMILA BARRON Report Released Date/Time: Oct 05, 2023 11:58 PM Reporting Lab: [facility] [address] [address] Performing Lab: [facility] [address] [address] [facility] BASIC METABOLI C PANEL (fasting ) CARBON DIOXIDE, TOTAL [MOLES/VOL UME] IN SERUM OR PLASMA 26 meq/L 20 - 30 10/07 Specimen Type: SERUM No comment entered. Ordering Provider: JAMILA BARRON Report Released Date/Time: Oct 05, 2023 11:58 PM Reporting Lab: [facility] [address] Performing Lab: [facility] [address] [address] [facility] BASIC METABOLI C PANEL (fasting ) CREATININE [MASS/VOLU ME] IN SERUM OR PLASMA 1.01 mg/dL 0.50 - 1.40 10/07 Specimen Type: SERUM No comment entered. Ordering Provider: JAMILA BARRON Report Released Date/Time: Oct 05, 2023 11:58 PM Reporting Lab: [facility] [address] Performing Lab: [facility] [address] [address] [facility] [place] [facility] BASIC METABOLI C PANEL (fasting ) GLOMERULAR FILTRATION RATE/1.73 SQ M.PREDICTE D [VOLUME RATE/AREA] IN SERUM, PLASMA OR BLOOD BY CREATININE -BASED FORMULA (CKD-EPI 2020) 73 mL/min 60 10/07 Specimen Type: SERUM No comment entered. Ordering Provider: JAMILA BARRON Report Released Date/Time: Oct 05, 2023 11:58 PM Reporting Lab: [facility] [place] [address] [address] Performing Lab: [facility]ENTERTRN [facility] [address] [facility] [address] [facility] CBC AND DIFF (AUTO) LEUKOCYTES [#/VOLUME] IN BLOOD BY AUTOMATED COUNT 7.99 10*3/uL 4.50 - 11.00 10/07 Specimen Type: BLOOD No comment entered. Ordering Provider: JAMILA BARRON Report Released Date/Time: Oct 05, 2023 11:58 PM Reporting Lab: [facility] [place] [facility] [address] [facility] [address] Performing Lab: [facility] [place] [facility] [address] [facility] [address] [facility] CBC AND DIFF (AUTO) ERYTHROCYT ES [#/VOLUME] IN BLOOD BY AUTOMATED COUNT 4.47 10*6/uL 4.23 - 5.66 10/07 Specimen Type: BLOOD No comment entered. Ordering Provider: JAMILA BARRON Report Released Date/Time: Oct 05, 2023 11:58 PM Reporting Lab: [facility] [place] [address] [address] Performing Lab: [facility] [address] [address] [facility] CBC AND DIFF (AUTO) HEMOGLOBIN [MASS/VOLU ME] IN BLOOD 14.6 g/dL 12.8 - 17 10/07 Specimen Type: BLOOD No comment entered. Ordering Provider: JAMILA BARRON Report Released Date/Time: Oct 05, 2023 11:58 PM Reporting Lab: [facility] [place] [facility] [address] [facility] [address] Performing Lab: [facility] [place] [facility] [address] [facility] [address] [facility] [place] [facility] CBC AND DIFF (AUTO) HEMATOCRIT [VOLUME FRACTION] OF BLOOD BY AUTOMATED COUNT 42.7 39.2 - 50.4 10/07 Specimen Type: BLOOD No comment entered. Ordering Provider: JAMILA BARRON Report Released Date/Time: Oct 05, 2023 11:58 PM Reporting Lab: [facility] [place] [facility] [address] [facility] [address] Performing Lab: [facility] [place] [facility] [address] [facility] [address] [facility] [place] [facility] CBC AND DIFF (AUTO) MCV [ENTITIC VOLUME] BY AUTOMATED COUNT 95.5 fL 82 - 99 10/07 Specimen Type: BLOOD No comment entered. Ordering Provider: JAMILA BARRON Report Released Date/Time: Oct 05, 2023 11:58 PM Reporting Lab: [facility] [place] [facility] [address] [facility] [address] Performing Lab: [facility] [place] [facility] [address] [facility] [address] [facility] [place] [facility] CBC AND DIFF (AUTO) MCHC [MASS/VOLU ME] BY AUTOMATED COUNT 34.2 g/dL 30.8 - 35.1 10/07 Specimen Type: BLOOD No comment entered. Ordering Provider: JAMILA BARRON Report Released Date/Time: Oct 05, 2023 11:58 PM Reporting Lab: [facility] [place] [facility] [address] [facility] [address] Performing Lab: [facility] [place] [facility] [address] [facility] [address] [facility] [place] [facility] CBC AND DIFF (AUTO) PLATELETS [#/VOLUME] IN BLOOD BY AUTOMATED COUNT 126 10*3/uL 140 - 360 10/07 L Specimen Type: BLOOD No comment entered. Ordering Provider: JAMILA BARRON Report Released Date/Time: Oct 05, 2023 11:58 PM Reporting Lab: [facility] [place] [facility] [address] [facility] [address] Performing Lab: [facility] [place] [facility] [address] [facility] [address] [facility] [place] [facility] CBC AND DIFF (AUTO) ERYTHROCYT E DISTRIBUTI ON WIDTH [RATIO] BY AUTOMATED COUNT 12.9 12.0 - 16.0 10/07 Specimen Type: BLOOD No comment entered. Ordering Provider: JAMILA BARRON Report Released Date/Time: Oct 05, 2023 11:58 PM Reporting Lab: [facility] [place] [address] [address] Performing Lab: [facility] [place] [address] [address] [facility] [place] [facility] CBC AND DIFF (AUTO) MONOCYTES [#/VOLUME] IN BLOOD BY AUTOMATED COUNT 0.79 10*3/uL 0.30 - 1.10 10/07 Specimen Type: BLOOD No comment entered. Ordering Provider: JAMILA BARRON Report Released Date/Time: Oct 05, 2023 11:58 PM Reporting Lab: [facility] [place] [facility] [address] [facility] [address] Performing Lab: [facility] [place] [address] [address] [facility] [place] [facility] CBC AND DIFF (AUTO) MCH [ENTITIC MASS] BY AUTOMATED COUNT 32.7 pg 26.2 - 32.6 10/07 H Specimen Type: BLOOD No comment entered. Ordering Provider: JAMILA BARRON Report Released Date/Time: Oct 05, 2023 11:58 PM Reporting Lab: [facility] [place] [facility] [address] [facility] [address] Performing Lab: [facility] [place] [address] [address] [facility] [place] [facility] CBC AND DIFF (AUTO) NEUTROPHIL S/100 LEUKOCYTES IN BLOOD BY AUTOMATED COUNT 54.5 43.7 - 75.8 10/07 Specimen Type: BLOOD No comment entered. Ordering Provider: JAMILA BARRON Report Released Date/Time: Oct 05, 2023 11:58 PM Reporting Lab: [facility] [place] [facility] [address] [facility] [address] Performing Lab: [facility] [place] [facility] [address] [facility] [address] [facility] [place] [facility] CBC AND DIFF (AUTO) LYMPHOCYTE S/100 LEUKOCYTES IN BLOOD BY AUTOMATED COUNT 33.3 14.0 - 42.3 10/07 Specimen Type: BLOOD No comment entered. Ordering Provider: JAMILA BARRON Report Released Date/Time: Oct 05, 2023 11:58 PM Reporting Lab: [facility] [place] [address] [address] Performing Lab: [facility] [place] [address] [address] [facility] [place] [facility] CBC AND DIFF (AUTO) MONOCYTES/ 100 LEUKOCYTES IN BLOOD BY AUTOMATED COUNT 9.9 5.1 - 13.7 10/07 Specimen Type: BLOOD No comment entered. Ordering Provider: JAMILA BARRON Report Released Date/Time: Oct 05, 2023 11:58 PM Reporting Lab: [facility] [place] [address] [address] Performing Lab: [facility] [place] [facility] [address] [facility] [address] [facility] [place] [facility] CBC AND DIFF (AUTO) EOSINOPHIL S/100 LEUKOCYTES IN BLOOD BY AUTOMATED COUNT 1.4 0.4 - 6.8 10/07 Specimen Type: BLOOD No comment entered. Ordering Provider: JAMILA BARRON Report Released Date/Time: Oct 05, 2023 11:58 PM Reporting Lab: [facility] [place] [address] [address] Performing Lab: [facility] [place] [address] [address] [facility] [place] [facility] CBC AND DIFF (AUTO) BASOPHILS/ 100 LEUKOCYTES IN BLOOD BY AUTOMATED COUNT 0.6 0.1 - 2.0 10/07 Specimen Type: BLOOD No comment entered. Ordering Provider: JAMILA BARRON Report Released Date/Time: Oct 05, 2023 11:58 PM Reporting Lab: [facility] [place] [facility] [address] [place] [address] Performing Lab: [facility] [place] [facility] [address] [facility] [address] [facility] [place] [facility] CBC AND DIFF (AUTO) NEUTROPHIL S [#/VOLUME] IN BLOOD BY AUTOMATED COUNT 4.36 10*3/uL 2.20 - 7.60 10/07 Specimen Type: BLOOD No comment entered. Ordering Provider: JAMILA BARRON Report Released Date/Time: Oct 05, 2023 11:58 PM Reporting Lab: [facility] [place] [facility] [address] [place] [address] Performing Lab: [facility] [place] [facility] [address] [facility] [address] [facility] [place] [facility] CBC AND DIFF (AUTO) LYMPHOCYTE S [#/VOLUME] IN BLOOD BY AUTOMATED COUNT 2.66 10*3/uL 1.00 - 3.20 10/07 Specimen Type: BLOOD No comment entered. Ordering Provider: JAMILA BARRON Report Released Date/Time: Oct 05, 2023 11:58 PM Reporting Lab: [facility] [place] [facility] [address] [place] [address] Performing Lab: [facility] [place] [facility] [address] [place] [address] [facility] CBC AND DIFF (AUTO) EOSINOPHIL S [#/VOLUME] IN BLOOD BY AUTOMATED COUNT 0.11 10*3/uL 0.03 - 0.44 10/07 Specimen Type: BLOOD No comment entered. Ordering Provider: JAMILA BARRON Report Released Date/Time: Oct 05, 2023 11:58 PM Reporting Lab: [facility] [place] [facility] [address] [facility] [address] Performing Lab: [facility] [address] [facility] [address] [facility] CBC AND DIFF (AUTO) BASOPHILS [#/VOLUME] IN BLOOD BY AUTOMATED COUNT 0.05 10*3/uL 0.01 - 0.13 10/07 Specimen Type: BLOOD No comment entered. Ordering Provider: JAMILA BARRON Report Released Date/Time: Oct 05, 2023 11:58 PM Reporting Lab: [facility] [address] [facility] [address] Performing Lab: [facility] [address] [facility] [address] [facility] CBC AND DIFF (AUTO) IMMATURE GRANULOCYT ES/100 LEUKOCYTES IN BLOOD BY AUTOMATED COUNT 0.3 0.0 - 0.7 10/07 Specimen Type: BLOOD No comment entered. Ordering Provider: JAMILA BARRON Report Released Date/Time: Oct 05, 2023 11:58 PM Reporting Lab: [facility] [facility] [address] [facility] [address] Performing Lab: [facility] [address] [address] [facility] CBC AND DIFF (AUTO) IMMATURE GRANULOCYT ES [#/VOLUME] IN BLOOD 0.02 10*3/uL 0.00 - 0.06 10/07 Specimen Type: BLOOD No comment entered. Ordering Provider: JAMILA BARRON Report Released Date/Time: Oct 05, 2023 11:58 PM Reporting Lab: [facility] [address] [address] Performing Lab: [facility] [address] [address] [facility] LIPID PANEL FASTING CHOLESTERO L [MASS/VOLU ME] IN SERUM OR PLASMA 133 mg/dL 10/07 Specimen Type: SERUM No comment entered. Ordering Provider: JAMILA BARRON Report Released Date/Time: Oct 05, 2023 11:58 PM Reporting Lab: [facility] [address] [facility] [address] Performing Lab: [facility] [address] [facility] [address] [facility] LIPID PANEL FASTING TRIGLYCERI DE [MASS/VOLU ME] IN SERUM OR PLASMA 98 mg/dL 0 - 150 10/07 Specimen Type: SERUM No comment entered. Ordering Provider: JAMILA BARRON Report Released Date/Time: Oct 05, 2023 11:58 PM Reporting Lab: [facility] [address] [facility] [address] Performing Lab: [facility] [address] [address] [facility] LIPID PANEL FASTING CHOLESTERO L IN LDL [MASS/VOLU ME] IN SERUM OR PLASMA BY CALCULATIO N 70 mg/dL 0 - 129 10/07 Specimen Type: SERUM No comment entered. Ordering Provider: JAMILA BARRON Report Released Date/Time: Oct 05, 2023 11:58 PM Reporting Lab: [facility] [address] [facility] [address] Performing Lab: [facility] [facility] [address] [facility] [address] [facility] LIPID PANEL FASTING CHOLESTERO L.TOTAL/CH OLESTEROL IN HDL [MASS RATIO] IN SERUM OR PLASMA 3.1 10/07 Specimen Type: SERUM No comment entered. Ordering Provider: JAMILA BARORN Report Released Date/Time: Oct 05, 2023 11:58 PM Reporting Lab: [facility] [facility] [address] [facility] [address] Performing Lab: [facility] [facility] [address] [facility] [address] [facility] LIPID PANEL FASTING CHOLESTERO L IN HDL [MASS/VOLU ME] IN SERUM OR PLASMA 43 mg/dL 40 - 60 10/07 Specimen Type: SERUM No comment entered. Ordering Provider: JAMILA BARRON Report Released Date/Time: Oct 05, 2023 11:58 PM Reporting Lab: [facility] [place] [facility] [address] [facility] [address] Performing Lab: [facility] [place] [facility] [address] [facility] [address] [facility] LIVER FUNCTION PROTEIN [MASS/VOLU ME] IN SERUM OR PLASMA 6.6 g/dL 6.0 - 8.3 10/07 Specimen Type: SERUM No comment entered. Ordering Provider: JAMILA BARRON Report Released Date/Time: Oct 05, 2023 11:58 PM Reporting Lab: [facility] [place] [address] [facility] [address] Performing Lab: [facility] [place] [address] [address] [facility] LIVER FUNCTION ALBUMIN [MASS/VOLU ME] IN SERUM OR PLASMA 3.8 g/dL 3.5 - 5.0 10/07 Specimen Type: SERUM No comment entered. Ordering Provider: JAMILA BARRON Report Released Date/Time: Oct 05, 2023 11:58 PM Reporting Lab: [facility] [place] [address] [facility] [address] Performing Lab: [facility] [place] [facility] [address] [facility] [address] [facility] LIVER FUNCTION ALKALINE PHOSPHATAS E [ENZYMATIC ACTIVITY/V OLUME] IN SERUM OR PLASMA 103 U/L 40 - 150 10/07 Specimen Type: SERUM No comment entered. Ordering Provider: JAMILA BARRON Report Released Date/Time: Oct 05, 2023 11:58 PM Reporting Lab: [facility] [place] [facility] [address] [facility] [address] Performing Lab: [facility] [place] [facility] [address] [facility] [address] [facility] LIVER FUNCTION ASPARTATE AMINOTRANS FERASE [ENZYMATIC ACTIVITY/V OLUME] IN SERUM OR PLASMA 33 U/L 5 - 34 10/07 Specimen Type: SERUM No comment entered. Ordering Provider: JAMILA BARRON Report Released Date/Time: Oct 05, 2023 11:58 PM Reporting Lab: [facility] [place] [facility] [address] [facility] [address] Performing Lab: [facility] [place] [facility] [address] [facility] [address] [facility] LIVER FUNCTION ALANINE AMINOTRANS FERASE [ENZYMATIC ACTIVITY/V OLUME] IN SERUM OR PLASMA 29 U/L 10/07 Specimen Type: SERUM No comment entered. Ordering Provider: JAMILA BARRON Report Released Date/Time: Oct 05, 2023 11:58 PM Reporting Lab: [facility] [place] [address] [address] Performing Lab: [facility] [place] [facility] [address] [facility] [address] [facility] LIVER FUNCTION BILIRUBIN. TOTAL [MASS/VOLU ME] IN SERUM OR PLASMA 0.7 mg/dL 0.2 - 1.2 10/07 Specimen Type: SERUM No comment entered. Ordering Provider: JAMILA BARRON Report Released Date/Time: Oct 05, 2023 11:58 PM Reporting Lab: [facility] [place] [address] [address] Performing Lab: [facility] [place] [address] [address] [facility] Vital Signs Combined list of inpatient and outpatient Vital Signs from Department of Defense and Veterans Affairs, ranging from 12 months to all on record, depending upon the facility. 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
RANCHO RODRIGUEZ 04/30 [facility] En[facility] [id number] 06/14 [facility] En[facility] [id number] 06/16 [facility] En[facility] [id number] 06/19 [facility] En[facility] [id number] 06/27 [facility] En[facility] [id number] 10/08 [facility] OFF[facility] O/P EST LOW 20 MIN [id number] Diagnos is: ICD-10- CM H67.3 Otitis media in disease s classif ied elsewhe re, bilater al
RICO BARRON RD D 10/15 [facility] OFF/OP EST MAY X REQ PHY/QHP [id number] Diagnos is: ICD-10- CM Z23 Encount er for immuniz ation<b r/> RICO BARRON RD D 10/15 [facility] UNLISTED SPEC DERM SVC/PX [id number] Diagnos is: ICD-10- CM Z13.89 Encount er for screeni ng for other disorde r
GORDON BEAUCHAMP ICA A 10/23 [facility] OFFICE O/P EST SF 10 MIN [id number] Diagnos is: ICD-10- CM R21 Rash and other nonspec ific skin eruptio n
WILEY PASTOR PH J 10/23 [facility] En[facility] [id number] 10/23 [facility] En[facility] [id number] 10/23 [facility] En[facility] [id number] 11/20 [facility] En[facility] [id number] 11/24 [facility] En[facility] [id number] 11/27 [facility] En[facility] [id number] 11/28 [facility] En[facility] [id number] 11/30 [facility] UNLISTED SPEC DERM SVC/PX [id number] Diagnos is: ICD-10- CM Z13.89 Encount er for screeni ng for other disorde r
GORDON BEAUCHAMP ICA A 12/04 [facility] En[facility] [id number] 12/04 [facility] Outpatient Encounter [id number] Diagnos is: ICD-10- CM D48.5 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
Yossi HARRINGTON 12/29 [facility] En[facility] [id number] 12/29 [facility] Encounter [id number] 01/05 [facility] Encounter [id number] 01/09 [facility] Encounter [id number] 01/12 [facility] Encounter [id number] 01/12 [facility] Encounter [id number] 01/12 [facility] Encounter [id number] IRASEMA MONTILLA 01/13 [facility] Encounter [id number] 01/16 [facility] Encounter [id number] 01/19 [facility] Encounter [id number] 01/22 [facility] En[facility] [id number] 02/02 [facility] ORTHC/PROS TC MGMT SBSQ ENC [id number] Diagnos is: ICD-10- CM M84.472 A Patholo gical fractur e, left ankle, init encntr for fractur e
MEMOThierno TAMELA 02/02 [facility] En[facility] [id number] 02/10 [facility] Encounter [id number] 02/13 [facility] Encounter [id number] 03/04 [facility] Encounter [id number] 03/04 [facility] OFF/OP EST MAY X REQ PHY/QHP [id number] Diagnos is: ICD-10- CM Z71.89 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
PASCUAL STERN 03/05 [facility] OFF/OP EST MAY X REQ PHY/QHP [id number] Diagnos is: ICD-10- CM Z48.01 Encount er for change or removal of surgica l wound dressin g
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
Yossi HARRINGTON E 03/31 [facility] Outpatient Encounter [id number]/09 [facility] OFFICE O/P EST LOW 20 MIN [id number] 1. Diagnos is: ICD-10- CM I10 Essenti al (primar y) hyperte nsion<b r/> RICO BARRON RD D 04/13 [facility] Encounter [id number] 1.04/14 [facility] Out[facility] Encounter [id number] 04/23 [facility] Encounter [id number] 1.04/24 [facility] OFFICE O/P EST MOD 30 MIN [id number] Diagnos is: ICD-10- CM 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
RANCHO RODRIGUEZ 04/28 [facility] CONFORMITY EVALUATION [id number] Diagnos is: ICD-10- CM Z46.1 Encount er for fitting and adjustm ent of hearing aid<br/ > Yossi HARRINGTON 05/05 [facility] Out[facility] Encounter [id number] 05/08 [facility] Out[facility] Encounter [id number] 06/03 [facility] Out[facility] Encounter [id number] 06/06 [facility] Out[facility] Encounter [id number] 06/25 [facility] Out[facility] Encounter [id number] 06/25 [facility] Out[facility] Encounter [id number] 06/26 [facility] Out[facility] Encounter [id number] 07/02 [facility] Out[facility] Encounter [id number] 07/14 [facility] Out[facility] Encounter [id number] 07/14 [facility] Social History Combined list of available smoking, tobacco, and other social history from Department of Defense and Veterans Affairs facilities. Social History Type Response Date Comment Sour e Tobacco smoking status NHIS VA-TOBACCO FORMER USER 10/16/2023 [facility] [place] [facility] History of tobacco use VA-TOBACCO QUIT 15 YRS OR MORE 10/16/2023 [facility] [place] [facility] History of tobacco use VA-TOBACCO FORMER USER 07/04/2022 [facility] [place] [facility] History of tobacco use NSG NO TOBACCO USE PAST 30 DAYS 03/27/2022 [place] History of tobacco use NSG NO TOBACCO USE PAST 30 DAYS 03/05/2022 [place] History of tobacco use NSG NO TOBACCO USE PAST 30 DAYS 03/02/2022 [place] History of tobacco use VA-TOBACCO FORMER USER 06/28/2021 [facility] [place] [facility] History of tobacco use VA-TOBACCO FORMER USER 05/26/2020 [facility] [place] [facility] History of tobacco use VA-TOBACCO NEVER USED 05/23/2018 [facility] [place] [facility] Plan of Care List of future care activities from Department of Veterans Affairs facilities. Additional future care activities may be listed in the Assessment and Plan section. Date/Time Care Activity Care Activity Detail Facili ty 07/20/2024 AMBULATORY - MEDICINE AM[facility] [place] [facility] [place] [facility] 08/14/2024 AMBULATORY - MEDICINE AM[facility]ATORY [facility] [place] [facility] [place] [facility] 10/07/2024 AMBULATORY - MEDICINE AMBULATORY - MEDICI [place] [facility] [place] [facility] 10/28/2024 AMBULATORY - MEDICINE AMBULATORY - MEDICI [place] [facility] [place] [facility] 06/06/2024 Consult Order COMM[facility]ITY [facility]ARE-O RTHO GENERAL Cons [employer] Supervisor's Choice [facility] [place] [facility] 06/26/2024 Consult Order [facility]ITY [facility]ARE-G EC NON-SKILLED HOME HEALTH AIDE Cons [employer] Supervisor's Choice [facility] [place] [facility] 07/14/2024 Consult Order [facility]ITY [facility]ARE-C ARDIOLOGY Cons [employer] Supervisor's Choice [facility] [place] [facility] Advance Directives List of completed, amended, or rescinded Advance Directives on record at [facility] facilities. An actual copy of the Directive is not included. Date Advance Directive Provider Source 02/19/2022 ADVANCE DIRECTIVE JOCE CASTORENA [facility] 11/16/2020 ADVANCE DIRECTIVE BYRON BARRON [facility]
--- OUTSIDE RECORDS SUMMARY | 2024-07-20 16:10 | XMS_ITS | Encounter Summary ---
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 [place] [facility] [place] Address [address] [place] [address] Care Team Providers Care Optimization Analyst Name Role Phone BYRON BARRON Primary [...] Dec 19, 2007 MEDICAR E SUPPLEM E [id number] NYDIA HUERTA UL PATIENT [employer] MEDICARE SUPPLEMEN YORDAN Dec 19, 2007 MEDICAR E SUPPLEM E [id number] [phone] NYDIA HUERTA UL PATIENT [employer] [place] MEDICARE SUPPLEMEN YORDAN BANKE RS Dec 19, 2007 NONE [id number] [phone] NYDIA HUERTA UL PATIENT MEDICARE (WNR) MEDICARE (M) PART B Oct 13, 2006 PART B [id number] NYDIA HUERTA UL PATIENT MEDICARE (WNR) MEDICARE (M) PART B Oct 13, 2006 PART B [id number] [facility] [place] PATIENT MEDICARE (WNR) MEDICARE (M) PART B Oct 13, 2006 PART B [id number] NYDIA HUERTA PATIENT MEDICARE (WNR) MEDICARE (M) PART B Oct 13, 2006 PART B [id number] NYDIA HUERTA PATIENT MEDICARE (WNR) MEDICARE (M) PART A Sep 13, 2003 PART A [id number] NYDIA HUERTA PATIENT MEDICARE (WNR) MEDICARE (M) PART A Sep 13, 2003 PART A [id number] NYDIA HUERTA PATIENT MEDICARE (WNR) MEDICARE (M) PART A Sep 13, 2003 PART A [id number] NYDIA HUERTA PATIENT MEDICARE (WNR) MEDICARE (M) PART A Sep 13, 2003 PART A [id number] NYDIA HUERTA PATIENT Selected Encounter This section includes the information on record at [place] for the Encounter. Date/Time Encounter Type Encounter Description Reason Pro vider Source Jun 16, 2024 12:00 AM Outpatient Encounter COMMUNITY CARE [...] Appointment Type Appointme nt Facility Name Jul 14, 2024 02:45 PM [place] [facility] [place] [facility] Jul 20, 2024 08:00 AM [place] [facility] [place] [facility] Aug 14, 2024 03:00 PM [place] [facility] [place] [facility] Oct 07, 2024 09:00 AM [place] [facility] [place] [facility] Oct 28, 2024 08:00 AM [place] [facility] [place] [facility] Active, Pending, and Scheduled Orders This section [...] Test Type Test Details Facility Name Jun 26, 2024 04:42 PM Consult Order [facility]-C NON-SKILLED HOME HEALTH AIDE Cons Senior Analyst's Choice [place] [facility] [place] [facility] Jul 14, 2024 10:34 AM Consult Order [facility]-CARDIOLOGY Cons Senior Analyst's Choice [place] [facility] [place] [facility] Social History: Smoking Status (Most current) and [...] PM [facility]-TOBACCO FOR[place]ER [place] [facility] Tobacco Use History This section includes a history of the smoking, or tobacco-related health factors, that were collected on or before the date of the Encounter. The data comes from the [place] facility where the Encounter took place. Date/Time Smoking Status/Tobacco Use Comment F acility Oct 16, 2023 01:30 PM VA-TOBACCO QUIT 15 YRS OR MORE [place] [facility] [place] [facility] Jul 04, 2022 11:00 AM VA-TOBACCO FORMER USER [facility] [place] [facility] Jul 04, 2022 11:00 AM VA-TOBACCO QUIT 15 YRS OR MORE [facility] [place] [facility] Jun 28, 2021 10:30 AM VA-TOBACCO FORMER USER [facility] [place] [facility] Jun 28, 2021 10:30 AM VA-TOBACCO QUIT 15 YRS OR MORE [facility] [place] [facility] May 26, 2020 08:00 AM VA-TOBACCO FORMER US[place] [facility] [place] [facility] May 26, 2020 08:00 AM VA-TOBACCO QUIT 15 YRS OR MORE [facility] May 23, 2018 11:21 AM VA-TOBACCO NEVER USED [facility] Advance Directives: All historical and current [...] Feb 19, 2022 ADVANCE DIRECTIVE JOCE CASTORENA [facility] November 16, 2020 ADVANCE DIRECTIVE BYRON BARRON [facility] Encounter Notes: All associated encounter notes This section contains the clinical notes associated to the Encounter. Date/Time Encounter Note(s) Provider Source Jun 16, 2024 12:00 AM NONVA CONSULT: LOCAL TITLE: COMMUNITY CARE-CONSULT RESULT NOTE STANDARD TITLE: NONVA CONSULT DATE OF NOTE: JUN 16, 2024 ENTRY DATE: JUL 20, 2024@12:45:46 AUTHOR: RAHUL TORREZ EXP COSIGNER: URGENCY: STATUS: COMPLETED VistA Imaging - Scanned Document SCANNED DOCUMENT SIGNATURE NOT REQUIRED Electronically Filed: 07/20/2024 by: RAHUL TORREZ LICENSED PRACTICAL NURSE RAHUL TORREZ [facility]
--- OUTSIDE RECORDS SUMMARY | 2024-07-20 16:10 | XMS_ITS | Encounter Summary ---
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 [place] [facility] [place] Address [address] [place] [address] Care Team Providers Care Blood Bank Technician Name Role Phone BYRON BARRON Primary [...] Dec 19, 2007 MEDICAR E SUPPLEM E [id number] NYDIA HUERTA UL PATIENT [employer] MEDICARE SUPPLEMEN YORDAN Dec 19, 2007 MEDICAR E SUPPLEM E [id number] [phone] NYDIA HUERTA UL PATIENT [employer] [employer] [facility] [place] MEDICARE SUPPLEMEN YORDAN BANKE RS Dec 19, 2007 NONE [id number] [phone] NYDIA HUERTA UL PATIENT MEDICARE (WNR) MEDICARE (M) PART B Oct 13, 2006 PART B [id number] [phone] NYDIA HUERTA UL PATIENT MEDICARE (WNR) MEDICARE (M) PART B Oct 13, 2006 PART B [id number] [facility] [place] PATIENT MEDICARE (WNR) MEDICARE (M) PART B Oct 13, 2006 PART B [id number] NYDIA HUERTA PATIENT MEDICARE (WNR) MEDICARE (M) PART B Oct 13, 2006 PART B [id number] NYDIA HUERTA PATIENT MEDICARE (WNR) MEDICARE (M) PART A Sep 13, 2003 PART A [id number] NYDIA HUERTA PATIENT MEDICARE (WNR) MEDICARE (M) PART A Sep 13, 2003 PART A [id number] NYDIA HUERTA PATIENT MEDICARE (WNR) MEDICARE (M) PART A Sep 13, 2003 PART A [id number] [phone] NYDIA HUERTA PATIENT MEDICARE (WNR) MEDICARE (M) PART A Sep 13, 2003 PART A [id number] NYDIA HUERTA PATIENT Selected Encounter This section includes the information on record at [place] for the Encounter. Date/Time Encounter Type Encounter Description Reason Pro vider Source Jun 01, 2024 12:00 AM Outpatient Encounter COMMUNITY CARE CONSULT IHE Encounter Template Text not used by [place] Plan of Treatment: Future Appointments (+ 6 months) and Future Tests (+/- 45 days) The Plan of Treatment section includes future care activities for the patient from all [place] treatmentfacilities. This section includes future appointments and future orders which are active, pending or scheduled. Future Appointments This section includes appointments that were scheduled to occur 6 months from the date of the Encounter, up to a maximum of 20 appointments. The data comes from all [place] treatment facilities. Appointment Date/Time Appointment Type Appointme nt Facility Name Jun 16, 2024 01:15 PM [place] [facility] [place] [facility] Jul 14, 2024 02:45 PM [place] [facility] [place] [facility] Jul 20, 2024 08:00 AM [place] [facility] [place] [facility] Aug 14, 2024 03:00 PM AMBULATORY - MEDICINE [facility] [place] [facility] Oct 07, 2024 09:00 AM [place] [facility] [place] [facility] Oct 28, 2024 08:00 AM [facility] [place] [facility] Active, Pending, and Scheduled Orders This section includes a listing of several types of active, pending, and scheduled orders, including clinic medications orders, diagnostic test orders, procedure orders and consult orders; where the start date of the order is 45 days before the date of the Encounter or 45 days after the date of theEncounter. The data comes from all [place] treatment facilities. Test Date/Time Test Type Test Details Facility Name Jun 26, 2024 04:42 PM Consult Order [facility] NON-SKILLED HOME HEALTH AIDE Cons Frozen Food Selector's Choice [place] [facility] [place] [facility] Jul 14, 2024 10:34 AM Consult Order [facility] [employer]zen Food Selector's Choice [place] [facility] [place] [facility] Social History: Smoking Status (Most current) and Tobacco Use (All prior to encounter date) This section includes the most current, and the historical, smoking and tobacco- related health factors from the [place] facility where the Encounter took place. Current Smoking Status This section includes the most current smoking, or tobacco-related health factor, from the [place] facility where the Encounter took place. Date/Time Current Smoking Status Comment Facil ity Oct 16, 2023 01:30 PM VA-TOBACCO FORMER USER [place] [facility] [place] [facility] Tobacco Use History This section includes a history of the smoking, or tobacco-related health factors, that were collected on or before the date of the Encounter. The data comes from the [place] facility where the Encounter took place. Date/Time Smoking Status/Tobacco Use Comment F acility Oct 16, 2023 01:30 PM VA-TOBACCO QUIT 15 YRS OR MORE [place] [facility] [place] [facility] Jul 04, 2022 11:00 AM VA-TOBACCO FORMER USER [place] [facility] [place] [facility] Jul 04, 2022 11:00 AM VA-TOBACCO QUIT 15 YRS OR MORE [facility] [place] [facility] Jun 28, 2021 10:30 AM VA-TOBACCO FORMER USER [facility] [place] [facility] Jun 28, 2021 10:30 AM VA-TOBACCO QUIT 15 YRS OR MORE [place] [facility] [place] [facility] May 26, 2020 08:00 AM [facility] May 26, 2020 08:00 AM [place]-TO[place]AC[place] QUIT 15 YRS OR MORE [facility] May 23, 2018 11:21 AM VA-TOBACCO NEVER USED [facility] Advance Directives: All historical and current Section Date Range: From patient's date of to the date document was created. This section includes ALL of a patient's completed or amended [place] Advance and Rescinded Directives. The entries below indicate that a directive exists for the patient, but an actual copy is not included with this document. The data comes from all [place] facilities. Date Advance Directives Provider Source Feb 19, 2022 ADVANCE DIRECTIVE JOCE CASTORENA [facility] November 16, 2020 ADVANCE DIRECTIVE BYRON BARRON [facility] Encounter Notes: All associated encounter notes This section contains the clinical notes associated to the Encounter. Date/Time Encounter Note(s) Provider Source Jun 01, 2024 12:00 AM NONVA CONSULT: LOCAL TITLE: COMMUNITY CARE-CONSULT RESULT NOTE STANDARD TITLE: NONVA CONSULT DATE OF NOTE: JUN 01, 2024 ENTRY DATE: JUL 20, 2024@12:41:30 AUTHOR: RAHUL TORREZ EXP COSIGNER: URGENCY: STATUS: COMPLETED VistA Imaging - Scanned Document SCANNED DOCUMENT SIGNATURE NOT REQUIRED Electronically Filed: 07/20/2024 by: RAHUL TORREZ LICENSED PRACTICAL NURSE RAHUL TORREZ [facility]
== END 2024-07-20 14:19 | disposition home or self-care (01) ==
PROVIDERS: PCP Internal Medicine
DX: S82.62XA Displaced fracture of lateral malleolus of left fibula, initial encounter for closed fracture (principal)
CPT/HCPCS: 99213

== ENCOUNTER → 2024-07-28 12:47 | Outpatient (REF) | payer OTHER, SELFPAY ==
--- NOTE | 2024-07-28 12:53 | CA_ITS ---
Transthoracic Echocardiogram Patient (Last, First, Middle): Reed Mallory H Gender: Male Date of : 1940 Age: 83 Procedure Date: 07/28/2024 Procedure Type: Transthoracic Echocardiogram Location: OP Height: 167.64 cm Weight: 81.65 kg BSA: 1.91 m2 Heart Rate: bpm BP: 130 / 80 mmHg Boom Tender: Referring MD: Donny Bonds MD Symptoms: Z95.2 - Presence of prosthetic heart valve Study Quality: Good ECG Rhythm: Sinus Conclusions: - The left ventricular systolic function is normal. The calculated ejection fraction is 60% by biplane method. - A bioprosthetic aortic valve is present. The prosthetic aortic valve appears to be functioning normally. Findings Left Ventricle Normal left ventricular cavity size. There is moderately increased left ventricular wall thickness. The left ventricular systolic function is normal. The calculated ejection fraction is 60% by biplane method. There is no evidence of regional wall motion abnormalities. Evidence suggests grade I (mild) diastolic dysfunction. Right Ventricle Normal right ventricular cavity size and systolic function. Atria The left atrium is moderately dilated. The right atrium is normal in size. Aortic Valve A bioprosthetic aortic valve is present. The prosthetic aortic valve appears to be functioning normally. There is no aortic valve regurgitation. Mitral Valve The mitral valve appears normal. There is trace mitral valve regurgitation. There is no mitral valve stenosis. Pulmonic Valve The pulmonic valve is likely normal. Tricuspid Valve Normal tricuspid valve structure. There is trace tricuspid valve regurgitation. There is no evidence of pulmonary hypertension. Great Vessels The asc aorta is normal in size. Venous The inferior vena cava was not well visualized. The inferior vena cava is normal in size. Pericardium/Pleural There is no evidence of pericardial effusion. Prior Study Comparison No significant change compared to prior study dated: 07/10/2023. Measurements 2D Linear Measurements IVSd: 1.48 0.6-0.9/0.6-1.0 cm LVIDd: 4.41 3.9-5.3/4.2-5.9 cm LVIDd Index: 2.31 2.4-3.2/2.2-3.1 cm/m2 LVIDs: 2.82 2.0-3.6 cm LVPWd: 1.43 0.7-1.1 cm Ao Root: 3.20 2.1-3.5 cm LA Diam: 4.10 2.7-3.8/3.0-4.0 cm LAIDs Index: 2.15 1.5-2.3 cm/m2 LV Mass: 318.72 67-162/88-224 g LV Mass Index: 166.87 43-95/49-115 g/m2 LVOT Diam: 2.00 3.0+(-)1.3 cm 2D Systolic Function EF 4C: 59.40 >55% EF 2C: 58.70 >55% EF BiP: 60.10 >55% Mitral Valve MV Pk E: 0.59 MV PK A: 0.96 MV Decel Time: 196.00 E/A: 0.60 E'Lateral: 6.53 E'Medial: 4.90 E/E' Med: 12.10 E/E' Lat: 9.10 PHT: 57.00 MVA PHT: 3.86 Decel Mccreary: 3.02 Aortic Valve AoV Pk Dave: 2.20 AoV Mn Dave: 1.42 AoV VTI: 0.51 AoV Pk Grad: 19.00 Aov Mn Grad: 10.00 STARR Cont.VTI: 1.69 LVOT LVOT Pk Dave: 1.18 LVOT Mn Dave: 0.74 LVOT VTI: 0.27 LVOT Pk Grad: 6.00 LVOT Mn Grad: 3.00 LVOT Diam: 2.00 LVOT Area: 3.14 Diastolic Function MV Pk E: 0.59 MV Pk A: 0.96 E/A: 0.60 E'Medial: 4.90 E/E' Med: 12.10 E' Laterial: 6.53 E/E' Lat: 9.10 Right Ventricle TAPSE (mm): 26.00 TVS' Dave: 14.00 Tricuspid Valve TR Pk Dave: 1.85 TR Pk Grad: 14.00 RA Press: 3.00 RVSP: 17.00 Great Vessels Aorta Ao Root-2D: 3.20 2.0-3.7 cm Ao Asc: 3.60 2.1-3.4 cm Pulmonary Valve PV Pk Dave: 0.89 Peak PV Grad: 3.00 Updated in Other Vendor System with Status of Final Aj Larkin MD electronically signed on 07/29/2024 2:15:41 PM with status of Final
--- OUTSIDE RECORDS SUMMARY | 2024-07-28 14:57 | XMS_ITS | Continuity of Care Document ---
Author Name [facility] Organization [facility] Care Team Providers Care Route Contractor Name Role Phone [facility] Unavailable Unavailable Problems Combined list of problems from Department of Defense and Veterans Affairs facilities. It does not include entries that were removed or entered in error. Problem Status Onset Date Problem Type Date of Resolution Comments Source Chronic dermatitis Active 023 Condition Oct 05, 2022 Entered By: BYRON BARRON Comment: referred to dermatology [facility] Chest Pain (SCT 16003254) Active Condition Jan 02, 2022 Entered By: BYRON BARRON Comment: ordered stress test [facility] COPD - Chronic Obstructive Pulmonary Disease (SCT 66656502) Active Condition Dec 28, 2021 Entered By: BYRON BARRON Comment: on inhalers [facility] Cataract Active Condition Oct 12, 2020 Entered By: BYRON BARRON Comment: referred for surgery [facility] HTN - Hypertension (SCT [id number]) Active Condition Oct 21, 2020 Entered By: BYRON BARRON Comment: treated witn medication [facility] Hypercholesterolemia (SCT [id number]) Active Condition Oct 21, 2020 Entered By: [...] of uncertain behavior of skin Active Diagnosis [facility] Diagnosis: ICD-10-CM Z13.89 Encounter for screening for other disorder Active Diagnosis [facility] Diagnosis: ICD-10-CM R21 Rash and other nonspecific skin eruption Active Diagnosis [facility] Diagnosis: ICD-10-CM Z23 Encounter for immunization Active Diagnosis [facility] Diagnosis: ICD-10-CM H67.3 Otitis media in diseases classified elsewhere, bilateral Active Diagnosis [facility] [place] [facility] Medications Combined list of outpatient medications from [...] TWICE DAILY FOR INFECTIO N ORAL 11/15/2023 [id number] MAUREEN BARRON 2023 20 [facility] ASPIRIN 81MG TAB,CHEWABL E CHEW ONE TABLET BY MOUTH ONCE DAILY ORAL ACTIVE JANINE HAMMOND R 2021 [facility] ATORVASTATI N CA 80MG TAB TAKE ONE TABLET BY MOUTH AT BEDTIME ORAL ACTIVE 06/26/2025 [id number] MAUREEN BARRON PAIGE D 2023 90 [facility] ATORVASTATI N CA 80MG TAB TAKE ONE TABLET BY MOUTH AT BEDTIME ORAL DISCONT INUED 06/19/2024 [id number] MOHAMUD ARGUETA AV 2022 90 [facility] ATORVASTATI N CA 80MG TAB TAKE ONE TABLET BY MOUTH ONCE DAILY FOR CHOLESTE ROL ORAL DISCONT INUED 03/07/2024 [id number] MAUREEN BARROND D 2022 90 [facility] CEPHALEXIN 500MG CAP TAKE ONE CAPSULE BY MOUTH EVERY 8 HOURS FOR INFECTIO N ORAL 04/04/2024 [id number] MAMTA STERN 2023 21 [facility] EZETIMIBE 10MG TAB TAKE ONE TABLET BY MOUTH ONCE DAILY TO LOWER CHOLESTE ROL ORAL ACTIVE 06/26/2025 [id number] 4 MAUREEN BARRON PAIGE D 2023 90 [facility] EZETIMIBE 10MG TAB TAKE ONE TABLET BY MOUTH ONCE DAILY TO LOWER CHOLESTE ROL ORAL DISCONT INUED 06/19/2024 [id number] 4 MOHAMUD ARGUETA AV 2022 90 [facility] FLUTICASONE 250MCG/SALM ETEROL 50MCG INHL,ORAL,D ISKUS,60 INHALE 1 PUFF BY MOUTH TWICE DAILY - RINSE MOUTH AFTER USE RESPIR ATORY (INHAL ATION) 03/07/2024 [id number] MAUREEN BARRON D 2022 3 [facility] FLUTICASONE PROPIONATE 50MCG/SPRAY SOLN,NASAL, 16GM INSTILL 1 SPRAY INTO EACH NOSTRIL ONCE DAILY NEEDED FOR NASAL IRRITATI ON/INFLA MMATION NASAL 04/15/2024 [id number] MAUREEN BARRON PAIGE D 2022 1 [facility] HYDROCHLORO THIAZIDE 25MG TAB TAKE ONE TABLET BY MOUTH ONCE DAILY TO PREVENT FLUID/CO NTROL BLOOD PRESSURE ORAL DISCONT INUED 03/07/2024 [id number] MAUREEN BARRON PAIGE D 2022 90 [facility] HYDROCHLORO THIAZIDE 25MG TAB TAKE ONE TABLET BY MOUTH ONCE DAILY ORAL 06/19/2024 [id number] 4 MOHAMUD ARGUETA AV 2023 90 [facility] METOPROLOL SUCCINATE 50MG TAB,SA TAKE ONE TABLET BY MOUTH ONCE DAILY FOR BLOOD PRESSURE /HEART ORAL ACTIVE 06/26/2025 [id number] MAUREEN BARRON PAIGE D 2023 90 [facility] METOPROLOL SUCCINATE 50MG TAB,SA TAKE ONE TABLET BY MOUTH ONCE DAILY FOR BLOOD PRESSURE /HEART ORAL DISCONT INUED 06/19/2024 [id number] KENDALL,MOHAMUD AV 2022 90 [facility] TRIAMCINOLO NE ACETONIDE 0.1% CREAM,TOP APPLY A MODERATE AMOUNT TOPICALL Y TWICE DAILY NEEDED FOR ITCHING TOPICA L ACTIVE 10/24/2024 [id number] 4 MAUREEN BARRON PAIGE D 2023 454 [facility] Allergies, Adverse Reactions, Alerts Combined list of allergies from Department of Defense and Veterans Affairs facilities. It does not include entries that were removed or entered in error. Substance Category Reaction Severity Reaction type Status Date Reported Comments Source LIDOCAINE Propensity to adverse reactions to drug (finding) Itching MODERATE active 2 [facility] NOVOCAIN Propensity to adverse reactions to drug (finding) Feeling agitated active 8 [facility] PROCAINE Propensity to adverse reactions to drug (finding) active 2 [facility] Immunizations Combined list of available immunizations from the Department of Defense and Veterans Affairs facilities. 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 Status Comments Source COVID-19 (MODERNA), MRNA, LNP-S, PF, 50 MCG/0.5 ML (AGES 12+ YEARS) 7 2023 ALMA MAHER LEFT DELTO ID [id number] 312 complet ed [facility] INFLUENZA, HIGH-DOSE, TRIVALENT, PF 2023 ALMA MAHER LEFT DELTO ID [id number] 135 complet ed [facility] RSV, BIVALENT, PROTEIN SUBUNIT RSVPREF, DILUENT RECONSTITUTED , 0.5 ML, PF 1 2023 GRETCHEN ANDRADE LEFT DELTO ID [id number] 305 complet ed [facility] COVID-19 (MODERNA), MRNA, LNP-S, PF, 50 MCG/0.5 ML (AGES 12+ YEARS) 1 2023 GRETCHEN ANDRADE E LEFT DELTO ID [id number] 312 complet ed [facility] [place] INFLUENZA, HIGH-DOSE, QUADRIVALENT 2022 JERRI SHAIKH LEFT DELTO ID [id number] 197 complet ed [facility] [place] COVID-19 (MODERNA), MRNA, LNP-S, BIVALENT BOOSTER, PF, 50 MCG/0.5 ML OR 25MCG/0.25 ML DOSE 2021 JERRI SHAIKH ER M LEFT DELTO ID [id number] 229 complet ed [facility] [place] INFLUENZA VACCINE, QUADRIVALENT, ADJUVANTED 2021 205 complet ed [facility] [place] COVID-19 (MODERNA), MRNA, LNP-S, PF, 100 MCG/0.5ML DOSE OR 50 MCG/0.25ML DOSE 3 2021 207 complet ed MOD; [id number] ; 2 [facility] PNEUMOCOCCAL CONJUGATE PCV20, POLYSACCHARID E [id number] CONJUGATE, ADJUVANT, PF 2021 216 complet ed [facility] COVID-19 (MODERNA), MRNA, LNP-S, PF, 100 MCG OR 50 MCG DOSE 3 2020 207 complet ed MOD; [id number]; 2 [facility] INFLUENZA, UNSPECIFIED FORMULATION 2020 88 complet ed [facility] TDAP 2020 115 complet ed [facility] COVID-19 (MODERNA), MRNA, LNP-S, PF, 100 MCG/0.5 ML DOSE 2 2020 207 complet ed MOD; [id number]; 1 [facility] COVID-19 (MODERNA), MRNA, LNP-S, PF, 100 MCG/0.5 ML DOSE 1 2020 207 complet ed MOD; [id number]; 1 [facility] [...] DOSE SEASONAL 2017 135 complet ed Partner: [facility]. Administe red by: ARLET BOLTON (YJX=[id number]). Partner 0 Lot#: [id number] Mfr: [employer] P[employer]ur; Dosage: 0.5 [facility] PNEUMOCOCCAL POLYSACCHARID E PPV23 2016 33 complet ed Partner: [facility]. Administe red by: ARLET GUPTALANE CHE (ZXK=[id number]). Partner 0 Lot#: [id number] Mfr: Merck; Dosage: 0.5 [facility] INFLUENZA, HIGH DOSE SEASONAL 2016 135 complet ed Partner: [facility]. Administe red by: ARLET BOLTON (XKP=[phone]). Partner 0 Lot#: [id number] Mfr: Sanofi Pasteur; Dosage: 0.5 [facility] [place] [facility] Results Combined list of recent chemistry, hematology [...] Apr 04, 2024 05:53 PM Reporting Lab: [address] [address] Performing Lab: [facility] [address] [facility] LIVER FUNCTION ALBUMIN [MASS/VOLU ME] IN SERUM OR PLASMA 4.0 g/dL 3.5 - 5.0 04/07 Specimen Type: SERUM No comment entered. Ordering Provider: JAMILA BARRON Report Released Date/Time: Apr 04, 2024 05:53 PM Reporting Lab: [facility] [address] Performing Lab: [facility] [address] [facility] LIVER FUNCTION ALKALINE PHOSPHATAS E [ENZYMATIC ACTIVITY/V OLUME] IN SERUM OR PLASMA 118 U/L 40 - 150 04/07 Specimen Type: SERUM No comment entered. Ordering Provider: JAMILA BARRON Report Released Date/Time: Apr 04, 2024 05:53 PM Reporting Lab: [facility] [place] [facility] [address] [facility] [address] Performing Lab: [facility] [place] [facility] [address] [facility] [address] [facility] [place] [facility] LIVER FUNCTION ASPARTATE AMINOTRANS FERASE [ENZYMATIC ACTIVITY/V OLUME] IN SERUM OR PLASMA 30 U/L 5 - 34 04/07 Specimen Type: SERUM No comment entered. Ordering Provider: JAMILA BARRON Report Released Date/Time: Apr 04, 2024 05:53 PM Reporting Lab: [facility] [place] [facility] [address] [facility] [address] Performing Lab: [facility] [place] [address] [address] [facility] [place] [facility] LIVER FUNCTION ALANINE AMINOTRANS FERASE [ENZYMATIC ACTIVITY/V OLUME] IN SERUM OR PLASMA 23 U/L 04/07 Specimen Type: SERUM No comment entered. Ordering Provider: JAMILA BARRON Report Released Date/Time: Apr 04, 2024 05:53 PM Reporting Lab: [facility] [place] [facility] [address] [facility] [address] Performing Lab: [facility] [place] [address] [address] [facility] [place] [facility] LIVER FUNCTION BILIRUBIN. TOTAL [MASS/VOLU ME] IN SERUM OR PLASMA 1.0 mg/dL 0.2 - 1.2 04/07 Specimen Type: SERUM No comment entered. Ordering Provider: JAMILA BARRON Report Released Date/Time: Apr 04, 2024 05:53 PM Reporting Lab: [facility] [place] [facility] [address] [facility] [address] Performing Lab: [facility] [place] [address] [address] [facility] [place] [facility] BASIC METABOLI C PANEL (fasting ) UREA NITROGEN [MASS/VOLU ME] IN SERUM OR PLASMA 22 mg/dL 7 - 25 04/07 Specimen Type: SERUM No comment entered. Ordering Provider: JAMILA BARRON Report Released Date/Time: Apr 04, 2024 05:53 PM Reporting Lab: [facility]AT[facility]ENTERTRN [address] [address] Performing Lab: [facility] W[facility]N [address] [address] [facility] BASIC METABOLI C PANEL (fasting ) GLUCOSE [MASS/VOLU ME] IN SERUM OR PLASMA 93 mg/dL 65 - 100 04/07 Specimen Type: SERUM No comment entered. Ordering Provider: JAMILA BARRON Report Released Date/Time: Apr 04, 2024 05:53 PM Reporting Lab: [facility] CENTERTRN [address] [address] Performing Lab: [facility]RL TRN [facility] [address] [facility]ENTERTRN [facility] BASIC METABOLI C PANEL (fasting ) SODIUM [MOLES/VOL UME] IN SERUM OR PLASMA 139 mmol/L 135 - 145 04/07 Specimen Type: SERUM No comment entered. Ordering Provider: JAMILA BARRON Report Released Date/Time: Apr 04, 2024 05:53 PM Reporting Lab: [facility] [address] [address] Performing Lab: [facility] [address] [facility]ENTERTRN [facility] BASIC METABOLI C PANEL (fasting ) POTASSIUM [MOLES/VOL UME] IN SERUM OR PLASMA 3.9 mmol/L 3.5 - 5.0 04/07 Specimen Type: SERUM No comment entered. Ordering Provider: JAMILA BARRON Report Released Date/Time: Apr 04, 2024 05:53 PM Reporting Lab: [facility]ENTERTRN [facility]USE[address] [address] Performing Lab: [facility]N [facility] [address] [facility] [address] [facility] BASIC METABOLI C PANEL (fasting ) CHLORIDE [MOLES/VOL UME] IN SERUM OR PLASMA 102 mmol/L 100 - 110 04/07 Specimen Type: SERUM No comment entered. Ordering Provider: JAMILA BARRON Report Released Date/Time: Apr 04, 2024 05:53 PM Reporting Lab: [facility]OSPITALRDCH [facility]ERN [facility]ITALUSECO[facility] [address] [facility] [address] Performing Lab: [facility]PITALRDCH [facility]ITALUSE[address] [address] [facility] BASIC METABOLI C PANEL (fasting ) CARBON DIOXIDE, TOTAL [MOLES/VOL UME] IN SERUM OR PLASMA 26 meq/L 20 - 30 04/07 Specimen Type: SERUM No comment entered. Ordering Provider: JAMILA BARRON Report Released Date/Time: Apr 04, 2024 05:53 PM Reporting Lab: [facility]ITALRDCH [facility]ERN [address] [address] Performing Lab: [facility]ITALRDCH [facility]ERN [facility] [address] [facility] BASIC METABOLI C PANEL (fasting ) CREATININE [MASS/VOLU ME] IN SERUM OR PLASMA 0.92 mg/dL 0.50 - 1.40 04/07 Specimen Type: SERUM No comment entered. Ordering Provider: JAMILA BARRON Report Released Date/Time: Apr 04, 2024 05:53 PM Reporting Lab: [facility]ITALRAT[facility]ENTERTRN [facility] [address] Performing Lab: [facility]ITALRAT[facility]ENTERTRN [facility] [address] [facility] BASIC METABOLI C PANEL (fasting ) GLOMERULAR FILTRATION RATE/1.73 SQ M.PREDICTE D [VOLUME RATE/AREA] IN SERUM, PLASMA OR BLOOD BY CREATININE -BASED FORMULA (CKD-EPI 2020) 82 mL/min 60 04/07 Specimen Type: SERUM No comment entered. Ordering Provider: JAMILA BARRON Report Released Date/Time: Apr 04, 2024 05:53 PM Reporting Lab: [facility] [address] [facility] [address] Performing Lab: [facility] [address] [facility] [address] [facility] [place] [facility] [place] TSH THYROTROPI N [UNITS/VOL UME] IN SERUM OR PLASMA 2.34 u[IU]/mL 0.35 - 5.00 04/07 Specimen Type: SERUM No comment entered. Ordering Provider: JAMILA BARRON Report Released Date/Time: Apr 04, 2024 05:53 PM Reporting Lab: [facility] [place] [facility] [address] [facility] [address] Performing Lab: [facility] [place] [address] [address] [facility] [place] [facility] [place] LIPID PANEL FASTING CHOLESTERO L [MASS/VOLU ME] IN SERUM OR PLASMA 139 mg/dL 04/07 Specimen Type: SERUM No comment entered. Ordering Provider: JAMILA BARRON Report Released Date/Time: Apr 04, 2024 05:53 PM Reporting Lab: [facility] [place] [address] [address] Performing Lab: [facility] [place] [address] [address] [facility] [place] [facility] [place] LIPID PANEL FASTING TRIGLYCERI DE [MASS/VOLU ME] IN SERUM OR PLASMA 136 mg/dL 0 - 150 04/07 Specimen Type: SERUM No comment entered. Ordering Provider: JAMILA BARRON Report Released Date/Time: Apr 04, 2024 05:53 PM Reporting Lab: [facility] [place] [facility] [address] [facility] [address] Performing Lab: [facility] [place] [address] [address] [facility] [place] [facility] [place] LIPID PANEL FASTING CHOLESTERO L IN LDL [MASS/VOLU ME] IN SERUM OR PLASMA BY MONCHO Briscoe 72 mg/dL 0 - 129 04/07 Specimen Type: SERUM No comment entered. Ordering Provider: JAMILA BARRON Report Released Date/Time: Apr 04, 2024 05:53 PM Reporting Lab: [facility]ITALRL TRN [facility]ITALUSETS [facility] [address] [facility] [address] Performing Lab: [facility]ITALRL TRN [facility]ITALUSECO[facility] [address] [facility] [address] [facility]RL W[facility]N [facility] LIPID PANEL FASTING CHOLESTERO L.TOTAL/CH OLESTEROL IN HDL [MASS RATIO] IN SERUM OR PLASMA 3.5 04/07 Specimen Type: SERUM No comment entered. Ordering Provider: JAMILA BARRON Report Released Date/Time: Apr 04, 2024 05:53 PM Reporting Lab: [facility]RL [facility] [address] Performing Lab: [facility]ITALRL [facility]N [facility] [address] [facility]RL TRN [facility]ITALUSE [facility] LIPID PANEL FASTING CHOLESTERO L IN HDL [MASS/VOLU ME] IN SERUM OR PLASMA 40 mg/dL 40 - 60 04/07 Specimen Type: SERUM No comment entered. Ordering Provider: JAMILA BARRON Report Released Date/Time: Apr 04, 2024 05:53 PM Reporting Lab: [facility] [address] Performing Lab: [facility] TRN [facility]USE[address] [address] [facility]RL TRN [facility]ITALUSE [facility] CBC AND DIFF (AUTO) LEUKOCYTES [#/VOLUME] IN BLOOD BY AUTOMATED COUNT 7.77 10*3/uL 4.50 - 11.00 04/07 Specimen Type: BLOOD No comment entered. Ordering Provider: JAMILA BARRON Report Released Date/Time: Apr 04, 2024 05:53 PM Reporting Lab: [facility]RL [facility] [address] Performing Lab: [facility] TRN [facility]USE[address] [address] [facility]ITALRL WSTRN [place] [facility] CBC AND DIFF (AUTO) ERYTHROCYT ES [#/VOLUME] IN BLOOD BY AUTOMATED COUNT 4.29 10*6/uL 4.23 - 5.66 04/07 Specimen Type: BLOOD No comment entered. Ordering Provider: JAMILA BARRON Report Released Date/Time: Apr 04, 2024 05:53 PM Reporting Lab: [facility] [place] [address] [address] Performing Lab: [facility] [place] [facility] [address] [facility] [address] [facility]ITALRATRI[facility] CENTERTRN [place] [facility] [place] CBC AND DIFF (AUTO) HEMOGLOBIN [MASS/VOLU ME] IN BLOOD 14.2 g/dL 12.8 - 17 04/07 Specimen Type: BLOOD No comment entered. Ordering Provider: JAMILA BARRON Report Released Date/Time: Apr 04, 2024 05:53 PM Reporting Lab: [facility]RL [facility]N [place] [address] [address] Performing Lab: [place] [facility] [place] [address] [address] [facility]ITALRATRI[facility] CENTERTRN [place] [facility] [place] CBC AND DIFF (AUTO) HEMATOCRIT [VOLUME FRACTION] OF BLOOD BY AUTOMATED COUNT 41.1 39.2 - 50.4 04/07 Specimen Type: BLOOD No comment entered. Ordering Provider: JAMILA BARRON Report Released Date/Time: Apr 04, 2024 05:53 PM Reporting Lab: [facility] [place] [address] [address] Performing Lab: [facility] [place] [address] [address] [facility]ITALRL TRN [place] [facility] CBC AND DIFF (AUTO) MCV [ENTITIC VOLUME] BY AUTOMATED COUNT 95.8 fL 82 - 99 04/07 Specimen Type: BLOOD No comment entered. Ordering Provider: JAMILA BARRON Report Released Date/Time: Apr 04, 2024 05:53 PM Reporting Lab: [facility] [place] [address] [address] Performing Lab: [facility] [place] [facility] [address] [facility] [address] [facility] [place] [facility] [place] CBC AND DIFF (AUTO) MCHC [MASS/VOLU ME] BY AUTOMATED COUNT 34.5 g/dL 30.8 - 35.1 04/07 Specimen Type: BLOOD No comment entered. Ordering Provider: JAMILA BARRON Report Released Date/Time: Apr 04, 2024 05:53 PM Reporting Lab: [facility] [place] [facility] [address] [facility] [address] Performing Lab: [facility] [place] [facility] [address] [facility] [address] [facility] [place] [facility] [place] CBC AND DIFF (AUTO) PLATELETS [#/VOLUME] IN BLOOD BY AUTOMATED COUNT 184 10*3/uL 140 - 360 04/07 Specimen Type: BLOOD No comment entered. Ordering Provider: JAMILA BARRON Report Released Date/Time: Apr 04, 2024 05:53 PM Reporting Lab: [facility] [place] [facility] [place] [address] [facility] [address] Performing Lab: [facility] [facility] [place] [address] [facility] [address] [facility] [place] [facility] [place] CBC AND DIFF (AUTO) ERYTHROCYT E DISTRIBUTI ON WIDTH [RATIO] BY AUTOMATED COUNT 13.1 12.0 - 16.0 04/07 Specimen Type: BLOOD No comment entered. Ordering Provider: JAMILA BARRON Report Released Date/Time: Apr 04, 2024 05:53 PM Reporting Lab: [facility] [place] [facility] [place] [address] [facility] [address] Performing Lab: [facility] [place] [facility] [place] [address] [facility] [address] [facility] [place] [facility] [place] CBC AND DIFF (AUTO) MONOCYTES [#/VOLUME] IN BLOOD BY AUTOMATED COUNT 0.98 10*3/uL 0.30 - 1.10 04/07 Specimen Type: BLOOD No comment entered. Ordering Provider: JAMILA BARRON Report Released Date/Time: Apr 04, 2024 05:53 PM Reporting Lab: [facility] [place] [facility] [place] [address] [facility] [address] Performing Lab: [facility] [facility] [place] [address] [facility] [address] [facility] [place] [facility] [place] CBC AND DIFF (AUTO) MCH [ENTITIC MASS] BY AUTOMATED COUNT 33.1 pg 26.2 - 32.6 04/07 H Specimen Type: BLOOD No comment entered. Ordering Provider: JAMILA BARRON Report Released Date/Time: Apr 04, 2024 05:53 PM Reporting Lab: [facility] [facility] [place] [address] [facility] [address] Performing Lab: [facility] [place] [facility] [place] [address] [facility] [address] [facility] [place] [facility] [place] CBC AND DIFF (AUTO) NEUTROPHIL S/100 LEUKOCYTES IN BLOOD BY AUTOMATED COUNT 52.3 43.7 - 75.8 04/07 Specimen Type: BLOOD No comment entered. Ordering Provider: JAMILA BARRON Report Released Date/Time: Apr 04, 2024 05:53 PM Reporting Lab: [facility] [place] [facility] [place] [address] [facility] [address] Performing Lab: [facility] [place] [facility] [place] [address] [facility] [address] [facility] [place] [facility] [place] CBC AND DIFF (AUTO) LYMPHOCYTE S/100 LEUKOCYTES IN BLOOD BY AUTOMATED COUNT 31.7 14.0 - 42.3 04/07 Specimen Type: BLOOD No comment entered. Ordering Provider: JAMILA BARRON Report Released Date/Time: Apr 04, 2024 05:53 PM Reporting Lab: [facility] [place] [facility] [place] [address] [facility] [address] Performing Lab: [facility] [place] [facility] [place] [address] [facility] [address] [facility] [place] [facility] [place] CBC AND DIFF (AUTO) MONOCYTES/ 100 LEUKOCYTES IN BLOOD BY AUTOMATED COUNT 12.6 5.1 - 13.7 04/07 Specimen Type: BLOOD No comment entered. Ordering Provider: JAMILA BARRON Report Released Date/Time: Apr 04, 2024 05:53 PM Reporting Lab: [facility] [place] [facility] [address] [facility] [address] Performing Lab: [facility] [place] [facility] [address] [facility] [address] [facility] [place] [facility] CBC AND DIFF (AUTO) EOSINOPHIL S/100 LEUKOCYTES IN BLOOD BY AUTOMATED COUNT 2.3 0.4 - 6.8 04/07 Specimen Type: BLOOD No comment entered. Ordering Provider: JAMILA BARRON Report Released Date/Time: Apr 04, 2024 05:53 PM Reporting Lab: [facility] [place] [facility] [place] [address] [facility] [address] Performing Lab: [facility] [place] [facility] [place] [address] [facility] [address] [facility] [place] [facility] CBC AND DIFF (AUTO) BASOPHILS/ 100 LEUKOCYTES IN BLOOD BY AUTOMATED COUNT 0.6 0.1 - 2.0 04/07 Specimen Type: BLOOD No comment entered. Ordering Provider: JAMILA BARRON Report Released Date/Time: Apr 04, 2024 05:53 PM Reporting Lab: [facility] [place] [facility] [place] [address] [facility] [address] Performing Lab: [facility] [place] [facility] [place] [address] [facility] [address] [facility] [place] [facility] CBC AND DIFF (AUTO) NEUTROPHIL S [#/VOLUME] IN BLOOD BY AUTOMATED COUNT 4.06 10*3/uL 2.20 - 7.60 04/07 Specimen Type: BLOOD No comment entered. Ordering Provider: JAMILA BARRON Report Released Date/Time: Apr 04, 2024 05:53 PM Reporting Lab: [facility] [place] [facility] [address] [facility] [address] Performing Lab: [facility] [place] [facility] [place] [address] [facility] [address] [facility] [place] [facility] CBC AND DIFF (AUTO) LYMPHOCYTE S [#/VOLUME] IN BLOOD BY AUTOMATED COUNT 2.46 10*3/uL 1.00 - 3.20 04/07 Specimen Type: BLOOD No comment entered. Ordering Provider: JAMILA BARRON Report Released Date/Time: Apr 04, 2024 05:53 PM Reporting Lab: [facility] [place] [address] [address] Performing Lab[facility] [place] [address] [address] [facility] [place] [facility] [place] CBC AND DIFF (AUTO) EOSINOPHIL S [#/VOLUME] IN BLOOD BY AUTOMATED COUNT 0.18 10*3/uL 0.03 - 0.44 04/07 Specimen Type: BLOOD No comment entered. Ordering Provider: JAMILA BARRON Report Released Date/Time: Apr 04, 2024 05:53 PM Reporting Lab: [facility] [place] [address] [address] Performing Lab: [facility] [place] [address] [address] [facility] [facility] [place] CBC AND DIFF (AUTO) BASOPHILS [#/VOLUME] IN BLOOD BY AUTOMATED COUNT 0.05 10*3/uL 0.01 - 0.13 04/07 Specimen Type: BLOOD No comment entered. Ordering Provider: JAMILA BARRON Report Released Date/Time: Apr 04, 2024 05:53 PM Reporting Lab: [facility] [place] [address] [address] Performing Lab: [facility] [place] [address] [address] [facility] [facility] [place] CBC AND DIFF (AUTO) IMMATURE GRANULOCYT ES/100 LEUKOCYTES IN BLOOD BY AUTOMATED COUNT 0.5 0.0 - 0.7 04/07 Specimen Type: BLOOD No comment entered. Ordering Provider: JAMILA BARRON Report Released Date/Time: Apr 04, 2024 05:53 PM Reporting Lab: [facility] [place] [address] [address] Performing Lab: [facility] [facility] [place] [address] [facility] [address] [facility] [facility] [place] CBC AND DIFF (AUTO) IMMATURE GRANULOCYT ES [#/VOLUME] IN BLOOD 0.04 10*3/uL 0.00 - 0.06 04/07 Specimen Type: BLOOD No comment entered. Ordering Provider: JAMILA BARRON Report Released Date/Time: Apr 04, 2024 05:53 PM Reporting Lab: [facility] [place] [address] [address] Performing Lab: [facility] [place] [address] [address] [facility] [place] [facility] [place] CBC AND DIFF (AUTO) NRBC % 0.0 0.0 - 0.0 04/07 Specimen Type: BLOOD No comment entered. Ordering Provider: JAMILA BARRON Report Released Date/Time: Apr 04, 2024 05:53 PM Reporting Lab: [facility] [place] [address] [address] Performing Lab: [facility] [place] [address] [address] [facility] [place] [facility] [place] CBC AND DIFF (AUTO) NRBC, ABS 0.00 10*3/uL 0.00 - 0.00 04/07 Specimen Type: BLOOD No comment entered. Ordering Provider: JAMILA BARRON Report Released Date/Time: Apr 04, 2024 05:53 PM Reporting Lab: [facility] [place] [address] [address] Performing Lab: [facility] [place] [address] [address] [facility] [place] [facility] URINALYS IS CLEAN CATCH COLOR OF URINE Yellow 04/07 Specimen Type: URINE Comment: If Glucose = >500 and Ketones are positive, please alert the Physician. Ordering Provider: JAMILA BARRON Report Released Date/Time: Apr 04, 2024 05:53 PM Reporting Lab: [facility] [place] [address] [address] Performing Lab: [facility] [place] [facility] [place] [address] [facility] [address] [facility] [place] [facility] [place] URINALYS IS CLEAN CATCH APPEARANCE OF URINE Clear 04/07 Specimen Type: URINE Comment: If Glucose =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 Diagnos is: ICD-10- CM L60.1 Onychol ysis
PASCUAL STERN 03/05 [facility] OFF/OP EST MAY X REQ PHY/QHP [id number] Diagnos is: ICD-10- CM Z48.01 Encount er for change or removal of surgica l wound dressin g
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
Yossi HARRINGTON E 03/31 [facility] Outpatient Encounter [id number] [facility] OFFICE O/P EST LOW 20 MIN [id number] 1. 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
RANCHO RODRIGUEZ 04/28 [facility] CONFORMITY EVALUATION [id number] Diagnos is: ICD-10- CM Z46.1 Encount er for fitting and adjustm ent of hearing aid<br/ > Yossi HARRINGTON 05/05 [facility] Out[facility] Encounter [id number] 05/08 [facility] Out[facility] Encounter [id number] 06/01 [facility] Out[facility] Encounter [id number] 06/03 [facility] Out[facility] Encounter [id number] 06/06 [facility] Out[facility] Encounter [id number] [facility] Out[facility] Encounter [id number] 06/19 [facility] Out[facility] Encounter [id number] 06/25 [facility] Out[facility] Encounter [id number] 06/25 [facility] Out[facility] Encounter [id number] 06/26 [facility] Out[facility] Encounter [id number] 07/02 [facility] Outpatient [facility]counter [id number] 07/06 [facility] Outpatient [facility]counter [id number] 07/14 [facility] Outpatient [facility]counter [id number] 07/14 [facility] Social History Combined list of available smoking, tobacco, and other social history from Department of Defense and Veterans Affairs facilities. Social History Type Response Date Comment Sourc e Tobacco smoking status NHIS [facility] FORMER USER 10/16/2023 [facility] [place] [facility] History of tobacco use VA-TOBACCO QUIT 15 YRS OR MORE 10/16/2023 [facility] [place] [facility] History of tobacco use VA-TOBACCO FORMER USER 07/04/2022 [facility] [place] [facility] History of tobacco use NSG NO TOBACCO USE PAST 30 DAYS 03/27/2022 [facility] [place] History of tobacco use NSG NO TOBACCO USE PAST 30 DAYS 03/05/2022 [place] History of tobacco use NSG NO TOBACCO USE PAST 30 DAYS 03/02/2022 [place] History of tobacco use VA-TOBACCO QUIT 15 YRS OR MORE 06/28/2021 [facility] [place] [facility] History of tobacco use VA-TOBACCO FORMER USER 05/26/2020 [facility] [place] [facility] [place] History of tobacco use VA-TOBACCO NEVER USED 05/23/2018 [facility] [place] [facility] [place] Plan of Care List of future care activities from [facility] facilities. Additional future care activities may be listed in the Assessment and Plan section. Date/Time Care Activity Care Activity Detail Facili ty 08/14/2024 AMBULATORY - MEDICINE AMBULATORY - [place]IC[place] [facility] [place] [facility] [place] 10/07/2024 AMBULATORY - MEDICINE AMBULATORY - MEDICI NE [facility] 10/28/2024 [facility]UL[facility]26/[facility]24 Consult Order [facility] EC NON-SKILLED HOME HEALTH AIDE Cons Political Research Scientist's Choice [facility] 07/14/2024 Consult Order [facility] ARDIOLOGY Cons Political Research Scientist's Choice [facility] Advance Directives List of completed, amended, or rescinded Advance Directives on record at Department of [facility] facilities. An actual copy of the Directive is not included. Date Advance Directive Provider Source 02/19/2022 ADVANCE DIRECTIVE JOCE CASTORENA [facility] 11/16/2020 ADVANCE DIRECTIVE BYRON BARRON [facility]
--- OUTSIDE RECORDS SUMMARY | 2024-07-28 15:01 | XMS_ITS ---
Author Organization [facility] Address [address] [place] [address] Care Team Providers Care Rail Express Clerk Name Role Phone Josue Simmons MD Primary Care Provider UnavailLyn Main [phone] REASON FOR VISIT 04/23/24 Encounters Encounter Location Date Provider Diagnosis [facility] [address] [place] [address] 04/02/2024 Lyn Lund Plan Of Treatment No Information Progress Notes * Reed MALLORY HDOB:1940 (83 yo M)Acc No.[id number]:04/02/2024 Patient:?Reed Mallory :1940???Age:83 Y???Sex:Male Address:[address] [place] [id number] * true * Date:? Generated for Printi philip/Ilda/eTransmitting on:?07/28/2024 03:01 PM EST
--- OUTSIDE RECORDS SUMMARY | 2024-07-28 15:01 | XMS_ITS | Patient Health Record ---
Author Organization [facility] [place] Address [address] [place] [address] Care Team Providers Care Patient Biller Name Role Phone Josue Simmons MD Primary Care Provider Lyn Aquino Unavailable [phone] Allergies Allergen (clinical drug ingredient) Drug/Non Drug [...] primary osteoarthritis of the ankle and/or foot ([id number]) Primary osteoarthrit is, right ankle and foot (M19.071) Active confirmed Encounters Encounter Location Date Provider Diagnosis [facility] [place] [address] [place] [address] 03/09/2024 Lyn Lund [facility] [place] [address] [place] [address] 03/12/2024 Lyn Lund [facility] [place] [address] [facility] [place] [address] 04/02/2024 Lyn Lund Plan Of Treatment Pending Test Test Name Order Date X ray : Foot, right 3V 01/20/2015 X ray : Ankle, right 3V 03/04/2017 Insurance Providers Payer Name Payer Address Payer Phone Subscriber Number Group Number Insured Name Patient Relationship to Insured Coverage Start Date Coverage End Date Medicare [employer] [address] [facility] [address] [id number] Reed Mallory Self - patient is the insured [employer] [id number] [place] [address] Reed Mallory Self - patient is the [...]
--- OUTSIDE RECORDS SUMMARY | 2024-07-28 15:01 | XMS_ITS ---
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 Generated for Printi ng/Ilda/eTransmitting on:?07/28/2024 03:01 PM EST
--- OUTSIDE RECORDS SUMMARY | 2024-07-28 15:01 | XMS_ITS | Encounter Summary ---
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 [place] Organization [facility] [place] Address [address] [place] [address] Care Team Providers Care Affiliate Manager Name Role Phone BYRON BARRON Primary [...] Dec 19, 2007 MEDICAR E SUPPLEM E [id number] NYDIA HUERTA UL PATIENT [employer] MEDICARE SUPPLEMEN YORDAN Dec 19, 2007 MEDICAR E SUPPLEM E [id number] [phone] NYDIA HUERTA UL PATIENT [employer] [place] MEDICARE SUPPLEMEN YORDAN BANKE RS Dec 19, 2007 NONE [id number] NYDIA HUERTA UL PATIENT MEDICARE (WNR) MEDICARE (M) PART B Oct 13, 2006 PART B [id number] [facility] NYDIA HUERTA UL PATIENT MEDICARE (WNR) MEDICARE (M) PART B Oct 13, 2006 PART B [id number] [phone] NYDIA HUERTA UL PATIENT MEDICARE (WNR) MEDICARE (M) PART B Oct 13, 2006 PART B [id number] [phone] NYDIA HUERTA PATIENT MEDICARE (WNR) MEDICARE (M) PART B Oct 13, 2006 PART B [id number] NYDIA HUERTA PATIENT MEDICARE (WNR) MEDICARE (M) PART A Sep 13, 2003 PART A [id number] [phone] NYDIA HUERTA PATIENT MEDICARE (WNR) MEDICARE (M) PART A Sep 13, 2003 PART A [id number] NYDIA HUERTA PATIENT MEDICARE (WNR) MEDICARE (M) PART A Sep 13, 2003 PART A [id number] NYDIA HUERTA PATIENT MEDICARE (WNR) MEDICARE (M) PART A Sep 13, 2003 PART A [id number] NYDIA HUERTA PATIENT Selected Encounter This section includes the information on record at [place] for the Encounter. Date/Time Encounter Type Encounter Description Reason Pro vider Source Jun 19, 2024 12:00 AM Outpatient Encounter COMMUNITY CARE [...] 14, 2024 02:45 PM [place] [facility] Jul 20, 2024 08:00 AM [place] [facility] Aug 14, 2024 03:00 PM [place] [facility] Oct 07, 2024 09:00 AM [place] [facility] Oct 28, 2024 08:00 AM [place] [facility] Active, Pending, and Scheduled Orders This [...] 26, 2024 04:42 PM Consult Order COMM[facility]ITY [facility]-C NON-SKILLED HOME HEALTH AIDE Cons Business Administration Teacher's Choice [place] [facility] [facility] Jul 14, 2024 10:34 AM Consult Order COMM[facility]ITY [facility]-CARDIOLOGY Cons Business Administration Teacher's Choice [place] [facility] Social History: [...] VA-TOBACCO QUIT 15 YRS OR [facility] Tobacco Use History This section includes a history of the smoking, or tobacco-related health factors, that were collected on or before the date of the Encounter. The data comes from the [place] facility where the Encounter took place. Date/Time Smoking Status/Tobacco Use Comment F acility Oct 16, 2023 01:30 PM VA-TOBACCO QUIT 15 YRS OR MORE [place] [facility] [facility] Jul 04, 2022 11:00 AM VA-TOBACCO FORMER USER [place] [facility] Jul 04, 2022 11:00 AM VA-TOBACCO QUIT 15 YRS OR MORE [place] [facility] [facility] Jun 28, 2021 10:30 AM VA-TOBACCO FORMER USER [place] [facility] Jun 28, 2021 10:30 AM VA-TOBACCO QUIT 15 YRS OR MORE [place] [facility] [facility] May 26, 2020 08:00 AM VA-TOBACCO FORMER USER [place] [facility] May 26, 2020 08:00 AM VA-TOBACCO QUIT 15 YRS OR MORE [facility] May 23, 2018 11:21 AM VA-TOBACCO NEVER USED [facility] Advance Directives: All historical and current [...] Feb 19, 2022 ADVANCE DIRECTIVE JOCE CASTORENA [facility] November 16, 2020 ADVANCE DIRECTIVE BYRON BARRON [facility] Encounter Notes: All associated encounter notes This section contains the clinical notes associated to the Encounter. Date/Time Encounter Note(s) Provider Source Jun 19, 2024 12:00 AM NONVA CONSULT: LOCAL TITLE: COMMUNITY CARE-CONSULT RESULT NOTE STANDARD TITLE: NONVA CONSULT DATE OF NOTE: JUN 19, 2024 ENTRY DATE: JUL 24, 2024@09:20:54 AUTHOR: SHANNON PATTERSON EXP COSIGNER: URGENCY: STATUS: COMPLETED VistA Imaging - Scanned Document SCANNED DOCUMENT SIGNATURE NOT REQUIRED Electronically Filed: 07/24/2024 by: SHANNON GARDUNO [facility]
--- OUTSIDE RECORDS SUMMARY | 2024-07-28 15:01 | XMS_ITS ---
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 Organization [facility] [place] Address [address] [place] [address] Care Team Providers Care Fish Skinning Machine Feeder Name Role Phone BYRON BARRON Primary Care [...] Dec 19, 2007 MEDICAR E SUPPLEM E [id number] NYDIA HUERTA UL PATIENT [employer] MEDICARE SUPPLEMEN YORDAN Dec 19, 2007 MEDICAR E SUPPLEM E [id number] NYDIA HUERTA UL PATIENT [employer] [place] MEDICARE SUPPLEMEN YORDAN BANKE RS Dec 19, 2007 NONE [id number] [phone] NYDIA HUERTA UL PATIENT MEDICARE (WNR) MEDICARE (M) PART B Oct 13, 2006 PART B [id number] [phone] NYDIA HUERTA UL PATIENT MEDICARE (WNR) MEDICARE (M) PART B Oct 13, 2006 PART B [id number] [place] PATIENT MEDICARE (WNR) MEDICARE (M) PART B Oct 13, 2006 PART B [id number] NYDIA HUERTA PATIENT MEDICARE (WNR) MEDICARE (M) PART B Oct 13, 2006 PART B [id number] NYDIA HUERTA PATIENT MEDICARE (WNR) MEDICARE (M) PART A Sep 13, 2003 PART A [id number] NYDIA HUERTA PATIENT MEDICARE (WNR) MEDICARE (M) PART A Sep 13, 2003 PART A [id number] [phone] NYDIA HUERTA PATIENT MEDICARE (WNR) MEDICARE (M) PART A Sep 13, 2003 PART A [id number] [phone] NYDIA HUERTA PATIENT MEDICARE (WNR) MEDICARE (M) PART A Sep 13, 2003 PART A [id number] [phone] NYDIA HUERTA PATIENT Selected Encounter This section includes the information on record at [place] for the Encounter. Date/Time Encounter Type Encounter Description Reason Pro vider Source Jul 06, 2024 12:00 AM Outpatient Encounter COMMUNITY CARE [...] 14, 2024 02:45 PM [place] [facility] Jul 20, 2024 08:00 AM [place]ORY [place] [facility] Aug 14, 2024 03:00 PM [place]ORY [place]INE [place] [facility] Oct 07, 2024 09:00 AM [place]ORY [place]INE [place] [facility] Oct 28, 2024 08:00 AM [place]ORY [place]INE [place] [facility] Active, Pending, and Scheduled Orders This section includes a listing of several types of active, pending, and scheduled orders, including clinic medications orders, diagnostic test orders, procedure orders and consult orders; where the start date of the order is 45 days before the date of the Encounter or 45 days after the date of theEncounter. The data comes from all [place] treatment facilities. Test Date/Time Test Type Test Details Facility Name Jun 26, 2024 04:42 PM Consult Order [facility]ITY [facility] NON-SKILLED HOME HEALTH AIDE Cons Telegraphic Typewriter Operator's Choice [place] [facility] [facility] Jul 14, 2024 10:34 AM Consult Order [facility]-CARDIOLOGY Cons Telegraphic Typewriter Operator's Choice [place] [facility] [facility] Social History: Smoking Status (Most [...] PM VA-TOBACCO [facility] USER [place] [facility] Tobacco Use History This section includes a history of the smoking, or tobacco-related health factors, that were collected on or before the date of the Encounter. The data comes from the [place] facility where the Encounter took place. Date/Time Smoking Status/Tobacco Use Comment F acility Oct 16, 2023 01:30 PM VA-TOBACCO QUIT 15 YRS OR MORE [place] [facility] [place] [facility] Jul 04, 2022 11:00 AM VA-TOBACCO FORMER USER [place] [facility] [place] [facility] Jul 04, 2022 11:00 AM VA-TOBACCO QUIT 15 YRS OR MORE [place] [facility] [place] [facility] Jun 28, 2021 10:30 AM VA-TOBACCO FORMER USER [place] [facility] [place] [facility] Jun 28, 2021 10:30 AM VA-TOBACCO QUIT 15 YRS OR MORE [place] [facility] [place] [facility] May 26, 2020 08:00 AM VA-TOBACCO FORMER USER [place] [facility] [facility] May 26, 2020 08:00 AM VA-TOBACCO QUIT 15 YRS OR MORE [facility] May 23, 2018 11:21 AM VA-TOBACCO NEVER USED [facility] Advance Directives: All historical [...] Feb 19, 2022 ADVANCE DIRECTIVE JOCE CASTORENA [facility] November 16, 2020 ADVANCE DIRECTIVE BYRON BARRON [facility] Encounter Notes: All associated encounter notes This section contains the clinical notes associated to the Encounter. Date/Time Encounter Note(s) Provider Source Jul 06, 2024 12:00 AM NONVA CONSULT: LOCAL TITLE: COMMUNITY CARE-CONSULT RESULT NOTE STANDARD TITLE: NONVA CONSULT DATE OF NOTE: JUL 06, 2024 ENTRY DATE: JUL 24, 2024@09:19:26 AUTHOR: SHANNON PATTERSON EXP COSIGNER: URGENCY: STATUS: COMPLETED VistA Imaging - Scanned Document SCANNED DOCUMENT SIGNATURE NOT REQUIRED Electronically Filed: 07/24/2024 by: SHANNON GARDUNO [facility]
--- OUTSIDE RECORDS SUMMARY | 2024-07-28 15:01 | XMS_ITS ---
Author Organization [facility] Address [address] [place] [address] Care Team Providers Care Batch Tank Controller Name Role Phone Josue Simmons MD Primary Care Provider Unavailab melinda Lyn Lund Unavailable [phone] Allergies Allergen (clinical drug ingredient) Drug/Non Drug [...] 04/23/2024 Encounters Encounter Location Date Provider [facility] [address] [place] [address] 04/23/2024 Lyn Lund Plan Of Treatment No Information Progress Notes * Reed MALLORY HDOB:1940 (83 yo M)Acc No.[id number]:04/23/2024 Progress Notes Patient:Reed VANCE Provider:?Lyn Lund DPM :1940???Age:83 Y???Sex:Male Chu e:04/23/2024 Address:[address] [place], [place] [id number] Pcp:Josue Simmons MD Subjective: * Chief Complaints: [...] Lund DPM Date:?2023 Generated for Yokasta palacios/Ilda/Sunil on:?07/28/2024 03:00 PM EST
== END ==
LOC: HO.CARD 12:47
PROVIDERS: PCP Internal Medicine; Visit Provider Internal Medicine Cardiovascular Disease
DX: Z95.2 Presence of prosthetic heart valve (principal)
CPT/HCPCS: 93306

== ENCOUNTER → 2024-07-28 12:53 | Outpatient (BNV) | payer OTHER, SELFPAY | PROVIDERS: PCP Internal Medicine; Visit Provider Internal Medicine | DX: I51.89 Other ill-defined heart diseases (principal); Z95.3 Presence of xenogenic heart valve | CPT/HCPCS: 93306 ==

== ENCOUNTER 2024-08-03 08:46 | Outpatient (REF) | payer OTHER, SELFPAY ==
--- OUTSIDE RECORDS SUMMARY | 2024-08-03 09:02 | XMS_ITS | Encounter Summary ---
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 Organization [facility] [place] Address [address] [place] [address] Care Team Providers Care Textile Machine Maintenance Mechanic Name Role Phone BYRON BARRON Primary Care [...] Dec 19, 2007 MEDICAR E SUPPLEM E [id number] NYDIA HUERTA UL PATIENT [employer] MEDICARE SUPPLEMEN YORDAN Dec 19, 2007 MEDICAR E SUPPLEM E [id number] NYDIA HUERTA UL PATIENT [employer] CO MEDICARE SUPPLEMEN YORDAN BANKE RS Dec 19, 2007 NONE [id number] NYDIA HUERTA UL PATIENT MEDICARE (WNR) MEDICARE (M) PART B Oct 13, 2006 PART B [id number] [facility] [phone] NYDIA HUERTA UL PATIENT MEDICARE (WNR) MEDICARE (M) PART B Oct 13, 2006 PART B [id number] [phone] NYDIA HUERTA UL PATIENT MEDICARE (WNR) MEDICARE (M) PART B Oct 13, 2006 PART B [id number] [phone] NYDIA HUERTA PATIENT MEDICARE (WNR) MEDICARE (M) PART B Oct 13, 2006 PART B [id number] NYDIA HUERTA PATIENT MEDICARE (WNR) MEDICARE (M) PART A Sep 13, 2003 PART A [id number] [phone] NYDIA HUERTA PATIENT MEDICARE (WNR) MEDICARE (M) PART A Sep 13, 2003 PART A [id number] NYDIA HUERTA PATIENT MEDICARE (WNR) MEDICARE (M) PART A Sep 13, 2003 PART A [id number] [phone] NYDIA HUERTA PATIENT MEDICARE (WNR) MEDICARE (M) PART A Sep 13, 2003 PART A [id number] NYDIA HUERTA PATIENT Selected Encounter This [...] 14, 2024 02:45 PM AM[place]ULATORY [place]ICINE [place] [facility] Jul 20, 2024 08:00 AM [place]ORY [place] [facility] Aug 14, 2024 03:00 PM AM[place]ULATORY [place]INE [place] [facility] Oct 07, 2024 09:00 AM AM[place]ULATORY [place]INE [place] [facility] Oct 28, 2024 08:00 AM AMBULATORY - [place]ICINE [place] [facility] Active, Pending, and Scheduled Orders [...] 26, 2024 04:42 PM Consult Order [facility]-C NON-SKILLED HOME HEALTH AIDE Cons Meat Molder's Choice [place] [facility] Jul 14, 2024 10:34 AM Consult Order [facility]-CARDIOLOGY Cons Meat Molder's Choice [place] [facility] [facility] Social History: Smoking Status (Most [...] 16, 2023 01:30 PM VA-TOBACCO FOR[facility] USER [place] [facility] Tobacco Use History This section includes a history of the smoking, or tobacco-related health factors, that were collected on or before the date of the Encounter. The data comes from the [place] facility where the Encounter took place. Date/Time Smoking Status/Tobacco Use Comment F acility Oct 16, 2023 01:30 PM VA-TOBACCO QUIT 15 YRS OR MORE [place] [facility] [facility] Jul 04, 2022 11:00 AM VA-TOBACCO FORMER USER [place] [facility] [place] [facility] Jul 04, 2022 11:00 AM VA-TOBACCO QUIT 15 YRS OR MORE [place] [facility] [place] [facility] Jun 28, 2021 10:30 AM VA-TOBACCO FORMER USER [place] [facility] [place] [facility] Jun 28, 2021 10:30 AM VA-TOBACCO QUIT 15 YRS OR MORE [place] [facility] [place] [facility] May 26, 2020 08:00 AM VA-TOBACCO FORMER USER [place] [facility] [place] [facility] May 26, 2020 08:00 AM VA-TOBACCO QUIT 15 YRS OR MORE [facility] May 23, 2018 11:21 AM VA-TOBACCO NEVER USED [facility] Advance Directives: All historical and current [...] Feb 19, 2022 ADVANCE DIRECTIVE JOCE CASTORENA [facility] November 16, 2020 ADVANCE DIRECTIVE BYRON BARRON [facility] Encounter Notes: All associated encounter notes [...] REQUIRED Electronically Filed: 07/24/2024 by: SHANNON GARDUNO [facility] Jun 19, 2024 12:00 AM NONVA CONSULT: LOCAL TITLE: COMMUNITY CARE-CONSULT RESULT NOTE STANDARD TITLE: NONVA CONSULT DATE OF NOTE: JUN 19, 2024 ENTRY DATE: JUL 31, 2024@15:23:17 AUTHOR: RAHUL TORREZ EXP COSIGNER: URGENCY: STATUS: COMPLETED VistA Imaging - Scanned Document SCANNED DOCUMENT SIGNATURE NOT REQUIRED Electronically Filed: 07/31/2024 by: RAHUL TORREZ LICENSED PRACTICAL NURSE RAHUL TORREZ [facility]
== END 2024-08-03 08:47 | disposition home or self-care (01) ==
LOC: HO.HOSX 08:46
DX: Z13.89 Encounter for screening for other disorder (principal)

== ENCOUNTER 2024-08-17 09:23 | Outpatient (REF) | payer OTHER, SELFPAY ==
--- NOTE | ~2024-08-17 | XR_ITS ---
EXAMINATION: XR ANKLE 3 OR MORE VIEWS LEFT HISTORY: M25.572 - Pain in left ankle and joints of left foot COMPARISON: Comparison is made with the prior examination dated 07/20/2024. FINDINGS: Three views of the left ankle are submitted. The bones are markedly osteopenic. There is irregularity of the medial talus on the AP view. The patient is again noted to be status post internal fixation of the distal fibula with a sideplate and multiple screws. A button is again noted along the medial malleolus. The fracture line is not visualized, although evaluation is markedly limited by osteopenia. There is marked degenerative change of the tibiotalar joint which appears mildly widened when compared to the prior study. There is diffuse soft tissue swelling. XR/XR ankle LT min 3V IMPRESSION: Marked osteopenia. Internal fixation of the distal fibula. Irregularity of the medial talus with widening of the tibiotalar joint. The possibility of collapse of the talus or infection is raised. Findings were sent by secure text message to NYDIA Jimenez on 08/18/2024 at 7:40 AM. Electronically signed by: Chuy Rosenthal MD 08/18/2024 07:40 AM [facility]
--- OUTSIDE RECORDS SUMMARY | 2024-08-17 09:49 | XMS_ITS | Encounter Summary ---
Author Organization [facility] Address [address] [place] [address] Care Team Providers Care Financial Systems Administrator Name Role Phone Adam Noonan MD Primary Care Provider Unava ilable Reason for Visit * Reason Onset Date Comments medication problems 02/16/2019 Encounter Details Date Type Department Care Team Description 02/16/2019 Telephone Pulmonology - [place] [address] [facility] [address] [place] [address] Eric Tucker MD medication problems Social History Tobacco Use Types Packs/Day Years Used Date Smoking Tobacco: Former Cigarettes 1 30 Smokeless Tobacco: Former Alcohol Use Standard Drinks/Week Comments Yes 0 (1 standard drink = 0.6 oz pur e alcohol) Sex Assigned at Date Recorded Not on file documented as of this encounter Miscellaneous Notes * Telephone Encounter - Hyacinth Moralez R.N. - 02/16/2019 4:52 PM EDT Originally [facility] on 02/08, [facility] forwarding to [facility] * Telephone Encounter - Hannah Tucker - 02/16/2019 4:11 PM EDT [place] [facility] send a fax that they can't fill the prescription for ALBUTEROL SULFATE (PROAIR HFA) 108 (90 BASE) MCG/ACT Aero Soln for 11 refills It needs to be send to a local pharmacy. I call and spoke with the patient and he wants the medication to be send to [id number] - [place] - [phone] [facility] [address] documented in this encounter Plan of Treatment Not on file documented as of this encounter Visit Diagnoses Diagnosis Simple chronic bronchitis (HCC)- Primary Simple chronic bronchitis documented in this encounter Care Teams Financial Systems Administrator Relationship Specialty Start Date End Date Adam Noonan MD PCP - General Internal Medicine 11/19/17 documented as of this encounter
--- OUTSIDE RECORDS SUMMARY | 2024-08-17 09:49 | XMS_ITS | Encounter Summary ---
Author Organization [facility] Address [address] [place] [address] Care Team Providers Care Glassware Verifier Name Role Phone [place] Primary Care Provider Cecelia Granados, Pcp Primary Care Provider Adam Rothman MD Primary Care Provider Unava ilable Encounter Details Date Type Department Care Team Description 07/22/2015 Hospital Medical Records [address] [place], [place] [id number] [place] [address] Social History Tobacco Use Types Packs/Day Years Used Date Smoking Tobacco: Former Cigarettes 1 30 Smokeless Tobacco: Former Alcohol Use Standard Drinks/Week Comments Yes 0 (1 standard drink = 0.6 oz pur e alcohol) Sex Assigned at Date Recorded Not on file documented as of this encounter Plan of Treatment Not on file documented as of this encounter Visit Diagnoses Not on filedocumented in this encounter Care Teams Glassware Verifier Relationship Specialty Start Date End Date [place] PCP - General Internal Medicine 07/15/11 11/14/17 Roberta, Pcp PCP - General Internal Medicine 11/15/17 11/18/17 Adam Noonan MD PCP - General Internal Medicine 11/19/17 documented as of this encounter
--- OUTSIDE RECORDS SUMMARY | 2024-08-17 09:49 | XMS_ITS | Encounter Summary ---
Author Organization [facility] Address [address] [place] [address] Care Team Providers Care Site Coordinator Name Role Phone Adam Noonan MD Primary Care Provider Unava ilable Reason for Visit * Reason Onset Date Comments Medication 02/11/2018 Encounter Details Date Type Department Care Team Description 02/11/2018 Telephone Pulmonology - [facility] [address] [facility] [address] [place] [address] Eric Tucker MD Medication Social History Tobacco Use Types Packs/Day Years Used Date Smoking Tobacco: Former Cigarettes 1 30 Alcohol Use Standard Drinks/Week Comments Yes 0 (1 standard drink = 0.6 oz pur e alcohol) Sex Assigned at Date Recorded Not on file documented as of this encounter Miscellaneous Notes * Telephone Encounter - Michelle Gomez M.A. - 02/11/2018 11:26 AM EDT Forward to to advise office notes say symbicort 80mcg. * Telephone Encounter - Sara Eller - 02/11/2018 11:19 AM EDT Who is calling? The patient Name of the medication Symbicort (states it should 160 MCG) What is the specific problem or interaction? Too expensive @ local pharmacy - please send to [facility] If the patient is having a problem with taking the med - how long has the problem been going on? new documented in this encounter Plan of Treatment Not on file documented as of this encounter Visit Diagnoses Diagnosis Chronic obstructive pulmonary disease, unspecified COPD type (HCC)- Primary documented in this encounter Care Teams Site Coordinator Relationship Specialty Start Date End Date Adam Noonan MD PCP - General Internal Medicine 11/19/17 documented as of this encounter
--- OUTSIDE RECORDS SUMMARY | 2024-08-17 09:49 | XMS_ITS | Encounter Summary ---
Author Organization [facility] Address [address] [place] [address] Care Team Providers Care Base Brander Name Role Phone Adam Noonan MD Primary Care Provider Unava ilable Encounter Details Date Type Department Care Team Description 11/22/2017 Transfer Records Medical Records [address] [place] [id number] Abstract, Provider Social History Tobacco Use Types Packs/Day Years [...] on filedocumented in this encounter Care Teams Base Brander Relationship Specialty Start Date End Date Adam Noonan MD PCP - General Internal Medicine 11/19/17 documented as of this encounter
--- OUTSIDE RECORDS SUMMARY | 2024-08-17 09:49 | XMS_ITS | Clinical Summary ---
Author Organization [facility] Address [address] [place] [address] Care Team Providers Care Questioned Documents Examiner Name Role Phone Adam Noonan MD Primary Care Provider Unava ilable Allergies Active Allergy Reactions Severity Noted Date Comments Niacin 11/19/2017 Procaine 11/19/2017 Medications Medication Sig Dispensed Refills Start Date End Date Status atenolol (TENORMIN) 50 MG tablet Take 50 mg by mouth daily. 0 Active hydrochlorothiazide (HYDRODIURIL) 25 MG tablet Take 25 mg by mouth daily. 0 Active pravastatin (PRAVACHOL) 40 MG tablet Take 40 mg by mouth daily. 0 Active budesonide-formoter ol (SYMBICORT) 160-4.5 MCG/ACT inhalerIndications: Chronic obstructive pulmonary disease, unspecified COPD type (HCC) Inhale 2 Puffs into the lungs every 12 hours for 90 days. This medication has inhaler steroid: Rinse mouth with water and expectorate after each dose to prevent oral/esophageal candidiasis or fungal infection. 3 Inhaler 2 01/19/2019 Active ALBUTEROL SULFATE (PROAIR HFA) 108 (90 BASE) MCG/ACT Aero SolnIndications:Sim ple chronic bronchitis (HCC) Inhale 2 Puffs into the lungs every 6 hours as needed for Cough or Wheezing for up to 30 days. 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 Family History Medical History Relation Name Comments MT Brother CAD Father MT Emphysema Sister Relation Name Status Comments Brother Father Sister Social History Tobacco Use Types Packs/Day Years Used Date Smoking Tobacco: Former Cigarettes 1 30 Smokeless Tobacco: Former Alcohol Use Standard Drinks/Week Comments Yes 0 (1 standard drink = 0.6 oz pur e alcohol) Sex Assigned at Date Recorded Not on file Last Filed Vital Signs Vital Sign Reading Time Taken Comments Blood Pressure 134/70 01/19/2019 2:16 PM EDT Pulse 65 01/19/2019 2:16 PM EDT Temperature - - Respiratory Rate 12 01/19/2019 2:16 PM EDT Oxygen Saturation 95% 01/19/2019 2:16 PM EDT Inhaled Oxygen Concentration - - Weight 93.2 kg (205 lb 6.4 oz) 01/19/2019 2:16 P M EDT Height 167.6 cm (5' 6 ) 01/19/2019 2:16 PM EDT Body Mass Index 33.15 01/19/2019 2:16 PM EDT Plan of Treatment Health Maintenance Due Date Last Done Comments Covid-19 Vaccine (#1) 04/[birth year]/1939 DEPRESSION SCREEN 1950 DTAP/TDAP/TD (1 - Tdap) 1957 CHOLESTEROL SCREENING 1958 SHINGLES VACCINE (1 of 2) 1988 FALL RISK ASSESSMENT 10/10/2003 PNEUMOCOCCAL VACCINE (1 - PCV) 10/10/2003 INFLUENZA (#1) 2024 BMI CHECK/ADVISE 07/15/2024 01/19/2019, , 01/31/2018, Additional history exists Care Teams Questioned Documents Examiner Relationship Specialty Start Date End Date Adam Noonan MD PCP - General Internal Medicine 11/19/17
--- OUTSIDE RECORDS SUMMARY | 2024-08-17 09:49 | XMS_ITS | Encounter Summary ---
Author Organization [facility] Address [address] [place] [address] Care Team Providers Care Trade Sales Assistant Name Role Phone Adam Noonan MD Primary Care Provider Unava ilable Encounter Details Date Type Department Care Team Description 11/21/2017 Release of Information Medical Records [address] [place] [id number] Abstract, Provider Social History Tobacco Use Types [...] on filedocumented in this encounter Care Teams Trade Sales Assistant Relationship Specialty Start Date End Date Adam Noonan MD PCP - General Internal Medicine 11/19/17 documented as of this encounter
== END 2024-08-17 09:24 | disposition home or self-care (01) ==
LOC: HO.HOSX 09:23
DX: M25.572 Pain in left ankle and joints of left foot (principal); S82.62XA Displaced fracture of lateral malleolus of left fibula, initial encounter for closed fracture
CPT/HCPCS: 73610; 99212

== ENCOUNTER 2024-08-17 09:30 | Outpatient (AMB) | payer OTHER, SELFPAY ==
--- NOTE | 2024-08-17 09:48 | A.OFFVIS_ITS ---
Vital Signs 08/17/24 09:49 Height 5 ft 6 in Weight 193 lb BMI 31.1 Intake Visit Reasons: OV: LT Ankle ORIF 01/21/24 w/ xray 2 week f/u Intake Note: Reed is a 83 year old male who presents today for a follow up visit s/p left ankle ORIF 01/21/24 w/ NE,. States he continues to have pain. He is using a knee scooter to help with ambulation. Allergies niacin Allergy (Severe, Verified 08/17/24 09:50) Upset Stomach procaine [From Novocain] Allergy (Severe, Verified 08/17/24 09:50) I GET MEAN simvastatin Adverse Reaction (Severe, Verified 08/17/24 09:50) myopathy HPI HPI OV: LT Ankle ORIF 01/21/24 w/ xray 2 week f/u: Details: Reed is a 83 year old male who presents today for a follow up visit s/p left ankle ORIF 01/21/24 w/ NE,. States he continues to have pain. He is using a knee scooter to help with ambulation. Also continues to endorse swelling, although he states this has improved and typically is best when he gets up in the morning and worsens throughout the day as his ankle is not elevated. [facility] Medical History Hyperlipidemia HTN (hypertension) CAD (coronary artery disease) Murmur, cardiac Chest pain COPD (chronic obstructive pulmonary disease) Asbestosis Surgical History S/P TAVR (transcatheter aortic valve replacement) Stented coronary artery Hx of cardiac catheterization Family History Father CAD (coronary artery disease) Mother No problems noted. Social History Patient Tobacco Use Status: Former Tobacco user Tobacco use type: Cigarette and Cigar Years Smoked: 14 years old Review of Systems Const All systems reviewed & are unremarkable except as noted in HPI and below Physical Exam Vital Signs: BMI result Body Mass Index 31.1 Extrem Other: On inspection, there is no deformity of the L ankle Incision sites are well healed No evidence of discharge There there is noted to be some discoloration in the lateral aspect of the patient's ankle No ecchymosis moderate edema noted of the left ankle, improved from last visit Evidence of skin breakdown noted at previous evaluation appears to be resolving at this time Patient reports no tenderness to palpation about the left lateral malleolus Patient is able to plantar flex and dorsiflex the foot minimally, limited due to swelling and pain Distal sensation intact Capillary refill brisk Results Reviewed Results Reviewed: X-rays obtained in the office today and independently reviewed by me, Demetrius Contreras PA-C, demonstrate well-healing fracture of the left lateral malleolus with orthopedic hardware in place and in satisfactory clinical alignment. No evidence of re fracture, damage to orthopedic hardware, or other injury. However, there does appear to be some evidence of disuse osteopenia versus radiographic findings consistent with potential small lingering infection Assessment & Plan Assessment & Plan (1) Ankle fracture, lateral malleolus, closed: Code(s): S82.63XA - Displaced fracture of lateral malleolus of unspecified fibula, initial encounter for closed fracture Category: Medical Qualifiers: Encounter type: initial encounter Fracture alignment: displaced Laterality: left Qualified Code(s): S82.62XA - Displaced fracture of lateral malleolus of left fibula, initial encounter for closed fracture Plan 1. Lateral malleolus fracture of the left ankle status post ORIF DOS 01/21/2024 Patient was evaluated with Dr. Chirinos, who saw the patient with me in clinic today, and a collaborative treatment plan was formed: Patient is educated that the x-ray findings that he has, along with his physical exam, do suggest potential disuse osteopenia versus potential lingering infection in the ankle joint and hardware However, at this time, we can not differentiate due to swelling Patient is also educated that he needs to continue to have his ankle elevated consistently above heart level to allow the swelling to go down further Compression stockings ordered for this patient in order to get his swelling down even further Patient should avoid weight-bearing until follow-up Patient was amenable to this plan Patient will follow-up in 1 weeks for reassessment of swelling, sooner with any acute concerns Orders: Orders XR ankle LT min 3V 08/17/24 M25.572 - Pain in left ankle and joints of left foot Medications: New [Thigh high compression stocking] 30/40mmHG 2 ea 0RF Edema R60.9 - Edema, unspecified Coding Level of Care Code Est Pt Level 3 (29701) Complex EM visit Add On G2211 Diagnoses Closed displaced fracture of lateral malleolus of left fibula, initial encounter S82.62XA Encounter type: initial encounter Fracture alignment: displaced Laterality: left
[2024-08-17 09:49] VITALS: BMI 31.1
== END 2024-08-17 11:08 | disposition home or self-care (01) ==
PROVIDERS: PCP Internal Medicine
DX: S82.62XD Displaced fracture of lateral malleolus of left fibula, subsequent encounter for closed fracture with routine healing (principal)
CPT/HCPCS: 99213; G2211

== ENCOUNTER → 2024-08-17 09:34 | Outpatient (BNV) | payer OTHER, SELFPAY | PROVIDERS: Visit Provider Radiology Diagnostic Radiology | DX: M85.872 Other specified disorders of bone density and structure, left ankle and foot (principal) | CPT/HCPCS: 73610 ==

== ENCOUNTER 2024-08-24 13:27 | Outpatient (REF) | payer OTHER, SELFPAY ==
--- NOTE | ~2024-08-24 | XR_ITS ---
EXAMINATION: XR ANKLE, LEFT CLINICAL INFORMATION: M25.572 - Pain in left ankle and joints of left foot COMPARISON: 08/17/2024. TECHNIQUE: AP, lateral, and mortise views of the left ankle. FINDINGS: Lateral plate and screw fixation, no hardware failure. Syndesmotic fixation device, radiolucent. Redemonstration of periarticular osteopenia, with permeative bone changes of the tibiotalar joint with joint space loss and irregularity. Findings are consistent with septic arthritis. There is persistent circumferential soft tissue swelling. There is flattening and possible early collapse of the talar dome. Disuse osteopenia of the midfoot and hindfoot. XR/XR ankle LT min 3V IMPRESSION: No significant interval change. 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 Electronically signed by: Mickey Lew MD 08/24/2024 03:48 PM PANDA
--- OUTSIDE RECORDS SUMMARY | 2024-08-24 14:30 | XMS_ITS ---
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 Address [address] [place] [address] Care Team Providers Care Banquet Server Name Role Phone JOSUE SIMMONS Primary Care [...] Dec 19, 2007 MEDICAR E SUPPLEM E [id number] [phone] NYDIA HUERTA UL PATIENT [employer] MEDICARE SUPPLEMEN YORDAN Dec 19, 2007 MEDICAR E SUPPLEM E [id number] NYDIA HUERTA UL PATIENT [employer] [place] MEDICARE SUPPLEMEN YORDAN BANKE RS Dec 19, 2007 NONE [id number] NYDIA HUERTA UL PATIENT MEDICARE (WNR) MEDICARE (M) PART B Oct 13, 2006 PART B [id number] [facility] NYDIA HUERTA UL PATIENT MEDICARE (WNR) MEDICARE (M) PART B Oct 13, 2006 PART B [id number] [facility] NYDIA HUERTA UL PATIENT MEDICARE (WNR) MEDICARE (M) PART B Oct 13, 2006 PART B [id number] NYDIA HUERTA PATIENT MEDICARE (WNR) MEDICARE (M) PART B Oct 13, 2006 PART B [id number] NYDIA HUERTA PATIENT MEDICARE (WNR) MEDICARE (M) PART A Sep 13, 2003 PART A [id number] NYDIA HUERTA PATIENT MEDICARE (WNR) MEDICARE (M) PART A Sep 13, 2003 PART A [id number] [phone] NYDIA HUERTA PATIENT MEDICARE (WNR) MEDICARE (M) PART A Sep 13, 2003 PART A [id number] [phone] NYDIA HUERTA PATIENT MEDICARE (WNR) MEDICARE (M) PART A Sep 13, 2003 PART A [id number] [phone] NYDIA HUERTA PATIENT Selected Encounter This section includes the information on record at [place] for the Encounter. Date/Time Encounter Type Encounter Description Reason Pro vider Source Aug 06, 2024 12:24 PM Outpatient Encounter PRIMARY CARE/MEDICINE IHE Encounter Template Text not used by [place] Plan of Treatment: Future Appointments (+ 6 [...] Date/Time Appointment Type Appointme nt Facility Name Sep 01, 2024 11:00 AM AMBULATORY - MEDICINE [facility] [place] [facility] Oct 07, 2024 09:00 AM AMBULATORY MEDICINE [facility] [place] [facility] Oct 28, 2024 08:00 AM AMBULATORY MEDICINE [facility] [place] [facility] Active, Pending, and Scheduled Orders This section includes a listing of several types of active, pending, and scheduled orders, including clinic medications orders, diagnostic test orders, procedure orders and consult orders; where the start date of the order is 45 days before the date of the Encounter or 45 days after the date of theEncounter. The data comes from all [place] treatment facilities. Test Date/Time Test Type Test Details Facility Name Jun 26, 2024 04:42 PM Consult Order [facility] NON-SKILLED HOME HEALTH AIDE Cons Quality Assurance Assistant's Choice [place] [facility] [place] [facility] Jul 14, 2024 10:34 AM Consult Order [facility] Cons Quality Assurance Assistant's Choice [place] [facility] [place] [facility] Social History: Smoking Status (Most [...] 16, 2023 01:30 PM VA-TOBACCO FORMER USER [place] [facility] [place] [facility] Tobacco Use History This section includes a history of the smoking, or tobacco-related health factors, that were collected on or before the date of the Encounter. The data comes from the [place] facility where the Encounter took place. Date/Time Smoking Status/Tobacco Use Comment F acility Oct 16, 2023 01:30 PM VA-TOBACCO QUIT 15 YRS OR MORE [facility] [place] [facility] Jul 04, 2022 11:00 AM VA-TOBACCO FORMER USER [facility] [place] [facility] Jul 04, 2022 11:00 AM VA-TOBACCO QUIT 15 YRS OR MORE [facility] [place] [facility] Jun 28, 2021 10:30 AM VA-TOBACCO FORMER USER [facility] [place] [facility] Jun 28, 2021 10:30 AM VA-TOBACCO QUIT 15 YRS OR MORE [facility] [place] [facility] May 26, 2020 08:00 AM VA-TOBACCO FORMER USER [facility] [place] [facility] May 26, 2020 08:00 AM VA-TOBACCO QUIT 15 YRS OR MORE [facility] [place] [facility] May 23, 2018 11:21 AM VA-TOBACCO NEVER USED [facility] [place] [facility] Advance Directives: All historical and current Section [...] Feb 19, 2022 ADVANCE DIRECTIVE JOCE CASTORENA [facility] November 16, 2020 ADVANCE DIRECTIVE JOSUE SIMMONS [facility] Encounter Notes: All associated encounter notes This section contains the clinical notes associated to the Encounter. Date/Time Encounter Note(s) Provider Source Aug 06, 2024 12:24 PM NONVA CONSULT: LOCAL TITLE: MD/OUTSIDE CONSULT REPORT SUMMARY STANDARD TITLE: NONVA CONSULT DATE OF NOTE: AUG 06, 2024@12:24 ENTRY DATE: AUG 06, 2024@12:24:25 AUTHOR: JOSUE SIMMONS EXP COSIGNER: URGENCY: STATUS: COMPLETED 07-20-24 office visit [place] [facility] Chief complaint: Follow-up left ankle ORIF 01-21-2024 X-ray shows hardware in place Plan: Follow-up 2 weeks /eleanor/ Josue Simmons MD Staff Physician Signed: 08/06/2024 12:24 JOSUE SIMMONS [facility]
--- OUTSIDE RECORDS SUMMARY | 2024-08-24 14:30 | XMS_ITS | Continuity of Care Document ---
Author Name [facility] Organization [facility] Care Team Providers Care [employer] Supervisor Name Role Phone [facility] Unavailable Unavailable Problems Combined list of problems from Department of Defense and Veterans Affairs facilities. It does not include entries that were removed or entered in error. Problem Status Onset Date Problem Type Date of Resolution Comments Source Chronic dermatitis Active 023 Condition Oct 05, 2022 Entered By: BYRON BARRON Comment: referred to dermatology [facility] Chest Pain (SCT 86130060) Active Condition Jan 02, 2022 Entered By: BYRON BARRON Comment: ordered stress test [facility] COPD - Chronic Obstructive Pulmonary Disease (SCT 72807664) Active Condition Dec 28, 2021 Entered By: BYRON BARRON Comment: on inhalers [facility] Cataract Active Condition Oct 12, 2020 Entered By: BYRON BARRON Comment: referred for surgery [facility] HTN - Hypertension (SCT 17606612) Active Condition Oct 21, 2020 Entered By: BYRON BARRON Comment: treated witn medication [facility] Hypercholesterolemia (SCT 77356249) Active Condition Oct 21, 2020 Entered By: [...] of uncertain behavior of skin Active Diagnosis [facility] Diagnosis: ICD-10-CM Z13.89 Encounter for screening for other disorder Active Diagnosis [facility] Diagnosis: ICD-10-CM R21 Rash and other nonspecific skin eruption Active Diagnosis [facility] Diagnosis: ICD-10-CM Z23 Encounter for immunization Active Diagnosis [facility] Diagnosis: ICD-10-CM H67.3 Otitis media in diseases classified elsewhere, bilateral Active Diagnosis [facility] [place] [facility] Medications Combined list of outpatient medications [...] TWICE DAILY FOR INFECTIO N ORAL 11/15/2023 [id number] MAUREEN BARRON 2023 20 [facility] ASPIRIN 81MG TAB,CHEWABL E CHEW ONE TABLET BY MOUTH ONCE DAILY ORAL ACTIVE JANINE HAMMOND R 2021 [facility] ATORVASTATI N CA 80MG TAB TAKE ONE TABLET BY MOUTH AT BEDTIME ORAL ACTIVE 06/26/2025 [id number] MAUREEN BARRON PAIGE D 2023 90 [facility] ATORVASTATI N CA 80MG TAB TAKE ONE TABLET BY MOUTH AT BEDTIME ORAL DISCONT INUED 06/19/2024 [id number] MOHAMUD ARGUETA AV 2022 90 [facility] ATORVASTATI N CA 80MG TAB TAKE ONE TABLET BY MOUTH ONCE DAILY FOR CHOLESTE ROL ORAL DISCONT INUED 03/07/2024 [id number] MAUREEN BARROND D 2022 90 [facility] CEPHALEXIN 500MG CAP TAKE ONE CAPSULE BY MOUTH EVERY 8 HOURS FOR INFECTIO N ORAL 04/04/2024 [id number] MAMTA STERN 2023 21 [facility] EZETIMIBE 10MG TAB TAKE ONE TABLET BY MOUTH ONCE DAILY TO LOWER CHOLESTE ROL ORAL ACTIVE 06/26/2025 [id number] MAUREEN BARRON PAIGE D 2023 90 [facility] EZETIMIBE 10MG TAB TAKE ONE TABLET BY MOUTH ONCE DAILY TO LOWER CHOLESTE ROL ORAL DISCONT INUED 06/19/2024 [id number] 4 MOHAMUD ARGUETA AV 2022 90 [facility] FLUTICASONE 250MCG/SALM ETEROL 50MCG INHL,ORAL,D ISKUS,60 INHALE 1 PUFF BY MOUTH TWICE DAILY - RINSE MOUTH AFTER USE RESPIR ATORY (INHAL ATION) 03/07/2024 [id number] MAUREEN BARRON D 2022 3 [facility] FLUTICASONE PROPIONATE 50MCG/SPRAY SOLN,NASAL, 16GM INSTILL 1 SPRAY INTO EACH NOSTRIL ONCE DAILY NEEDED FOR NASAL IRRITATI ON/INFLA MMATION NASAL 04/15/2024 [id number] MAUREEN BARRON PAIGE D 2022 1 [facility] HYDROCHLORO THIAZIDE 25MG TAB TAKE ONE TABLET BY MOUTH ONCE DAILY TO PREVENT FLUID/CO NTROL BLOOD PRESSURE ORAL DISCONT INUED 03/07/2024 [id number] 3 MAUREEN BARRON PAIGE D 2022 90 [facility] HYDROCHLORO THIAZIDE 25MG TAB TAKE ONE TABLET BY MOUTH ONCE DAILY ORAL 06/19/2024 [id number] 4 MOHAMUD ARGUETA AV 2023 90 [facility] METOPROLOL SUCCINATE 50MG TAB,SA TAKE ONE TABLET BY MOUTH ONCE DAILY FOR BLOOD PRESSURE /HEART ORAL ACTIVE 06/26/2025 [id number] 4 MAUREEN BARRON PAIGE D 2023 90 [facility] METOPROLOL SUCCINATE 50MG TAB,SA TAKE ONE TABLET BY MOUTH ONCE DAILY FOR BLOOD PRESSURE /HEART ORAL DISCONT INUED 06/19/2024 [id number] KENDALL,MOHAMUD AV 2022 90 [facility] TRIAMCINOLO NE ACETONIDE 0.1% CREAM,TOP APPLY A MODERATE AMOUNT TOPICALL Y TWICE DAILY NEEDED FOR ITCHING TOPICA L ACTIVE 10/24/2024 [id number] 4 MAUREEN BARRON PAIGE D 2023 454 [facility] Allergies, Adverse Reactions, Alerts Combined list of allergies from Department of Defense and Veterans Affairs facilities. It does not include entries that were removed or entered in error. Substance Category Reaction Severity Reaction type Status Date Reported Comments Source LIDOCAINE Propensity to adverse reactions to drug (finding) Itching MODERATE active 2 [facility] NOVOCAIN Propensity to adverse reactions to drug (finding) Feeling agitated active 8 [facility] PROCAINE Propensity to adverse reactions to drug (finding) active 2 [facility] Immunizations Combined list of available immunizations from the Department of Defense and Veterans Affairs facilities. Immunization Series Date Given Administered By Site Reaction Lot Number CVX Code Drug Section Weaver Status Comments Source COVID-19 (MODERNA), MRNA, LNP-S, PF, 50 MCG/0.5 ML (AGES 12+ YEARS) 7 2023 ALMA MAHER LEFT DELTO ID [id number] 312 complet ed [facility] INFLUENZA, HIGH-DOSE, TRIVALENT, PF 2023 ALMA MAHER LEFT DEL[place] ID [id number] 135 complet ed [facility] RSV, BIVALENT, PROTEIN SUBUNIT RSVPREF, DILUENT RECONSTITUTED , 0.5 ML, PF 1 2023 GRETCHEN ANDRADE LEFT DELTO ID [id number] 305 complet ed [facility] COVID-19 (MODERNA), MRNA, LNP-S, PF, 50 MCG/0.5 ML (AGES 12+ YEARS) 1 2023 GRETCHEN ANDRADE E LEFT DELTO ID [id number] 312 complet ed [facility] INFLUENZA, HIGH-DOSE, QUADRIVALENT 2022 JERRI SHAIKH LEFT DEL[place] ID [id number] 197 complet ed [facility] COVID-19 (MODERNA), MRNA, LNP-S, BIVALENT BOOSTER, PF, 50 MCG/0.5 ML OR 25MCG/0.25 ML DOSE 2021 JERRI SHAIKH ER M LEFT DELTO ID [id number] 229 complet ed [facility] INFLUENZA VACCINE, QUADRIVALENT, ADJUVANTED 2021 205 complet ed [facility] COVID-19 (MODERNA), MRNA, LNP-S, PF, 100 MCG/0.5ML DOSE OR 50 MCG/0.25ML DOSE 3 2021 207 complet ed MOD; [id number] ; 2 [facility] PNEUMOCOCCAL CONJUGATE PCV20, POLYSACCHARID E [id number] CONJUGATE, ADJUVANT, PF 2021 216 complet ed [facility] COVID-19 (MODERNA), MRNA, LNP-S, PF, 100 MCG OR 50 MCG DOSE 3 2020 207 complet ed MOD; [id number]; 2 [facility] INFLUENZA, UNSPECIFIED FORMULATION 2020 88 complet ed [facility] TDAP 2020 115 complet ed [facility] COVID-19 (MODERNA), MRNA, LNP-S, PF, 100 MCG/0.5 ML DOSE 2 2020 207 complet ed MOD; [id number]; 1 [facility] COVID-19 (MODERNA), MRNA, LNP-S, PF, 100 MCG/0.5 ML DOSE 1 2020 207 complet ed MOD; [id number]; 1 [facility] [...] [facility]. Administe red by: ARLET BOLTON ([id number]=[phone] [id number]). Partner 0 Lot#: [id number] Mfr: [employer] Bill Pasteur; Dosage: 0.5 [facility] PNEUMOCOCCAL POLYSACCHARID E PPV23 2016 33 complet ed Partner: [employer]. Administe red by: ARLET GUPTALANE CHE (UGW=[phone]). Partner 0 Lot#: [id number] Mfr: Merck; Dosage: 0.5 [facility] INFLUENZA, HIGH DOSE SEASONAL 2016 135 complet ed Partner: [employer]. Administe red by: ARLET BOLTON ([phone]). Partner 0 Lot#: [id number] Mfr: Sanofi Pasteur; Dosage: 0.5 [facility] [place] [facility] Results Combined list of recent chemistry, [...] Apr 04, 2024 05:53 PM Reporting Lab: [address] [address] Performing Lab: [address] [address] [facility] BASIC METABOLI C PANEL (fasting ) GLUCOSE [MASS/VOLU ME] IN SERUM OR PLASMA 93 mg/dL 65 - 100 04/07 Specimen Type: SERUM No comment entered. Ordering Provider: JAMILA BARRON Report Released Date/Time: Apr 04, 2024 05:53 PM Reporting Lab: [facility] [address] Performing Lab: [facility] [address] [address] [facility] BASIC METABOLI C PANEL (fasting ) SODIUM [MOLES/VOL UME] IN SERUM OR PLASMA 139 mmol/L 135 - 145 04/07 Specimen Type: SERUM No comment entered. Ordering Provider: JAMILA BARRON Report Released Date/Time: Apr 04, 2024 05:53 PM Reporting Lab: [facility]USE[address] [address] Performing Lab: [facility] [address] [address] [facility]RBR[facility]WO[facility]ERN [facility]USE [facility] BASIC METABOLI C PANEL (fasting ) POTASSIUM [MOLES/VOL UME] IN SERUM OR PLASMA 3.9 mmol/L 3.5 - 5.0 04/07 Specimen Type: SERUM No comment entered. Ordering Provider: JAMILA BARRON Report Released Date/Time: Apr 04, 2024 05:53 PM Reporting Lab: [facility] [address] [address] Performing Lab: [facility]ENTERN [address] [address] [facility] CENTERN [facility] BASIC METABOLI C PANEL (fasting ) CHLORIDE [MOLES/VOL UME] IN SERUM OR PLASMA 102 mmol/L 100 - 110 04/07 Specimen Type: SERUM No comment entered. Ordering Provider: JAMILA BARRON Report Released Date/Time: Apr 04, 2024 05:53 PM Reporting Lab: [facility]ERN [address] [address] Performing Lab: [facility]ITALRCLEBUR[facility] AND NURSING HOMETRN [facility]USE[address] [address] [facility]WO[facility]ENTERN [facility]USE [facility] BASIC METABOLI C PANEL (fasting ) CARBON DIOXIDE, TOTAL [MOLES/VOL UME] IN SERUM OR PLASMA 26 meq/L 20 - 30 04/07 Specimen Type: SERUM No comment entered. Ordering Provider: JAMILA BARRON Report Released Date/Time: Apr 04, 2024 05:53 PM Reporting Lab: [facility] CENTERN [address] [address] Performing Lab: [facility] [address] [address] [facility] BASIC METABOLI C PANEL (fasting ) CREATININE [MASS/VOLU ME] IN SERUM OR PLASMA 0.92 mg/dL 0.50 - 1.40 04/07 Specimen Type: SERUM No comment entered. Ordering Provider: JAMILA BARRON Report Released Date/Time: Apr 04, 2024 05:53 PM Reporting Lab: [facility]ITALRBROOKWO[facility] CENTERN [facility]ENTERUSEMA[facility] [address] [facility] [address] Performing Lab: [facility]OSPITALRL TRN [facility]ENTERUSEMAIMONID[facility] [address] [facility] [address] [facility] BASIC METABOLI C PANEL (fasting ) GLOMERULAR FILTRATION RATE/1.73 SQ M.PREDICTE D [VOLUME RATE/AREA] IN SERUM, PLASMA OR BLOOD BY CREATININE -BASED FORMULA (CKD-EPI 2020) 82 mL/min 60 04/07 Specimen Type: SERUM No comment entered. Ordering Provider: JAMILA BARRON Report Released Date/Time: Apr 04, 2024 05:53 PM Reporting Lab: [facility]ITALRBROOKWO[facility]ICAL CENTERN [address] [address] Performing Lab: [facility] [address] [address] [facility] CBC AND DIFF (AUTO) LEUKOCYTES [#/VOLUME] IN BLOOD BY AUTOMATED COUNT 7.77 10*3/uL 4.50 - 11.00 04/07 Specimen Type: BLOOD No comment entered. Ordering Provider: JAMILA BARRON Report Released Date/Time: Apr 04, 2024 05:53 PM Reporting Lab: [facility]ITALRBROOKWOOD BAP[facility] MEDICAL CENTERN [facility]ENTERUSE[address] [address] Performing Lab: [facility]ITALRBROOKWOOD BAP[facility] MEDICAL CENTERN [facility]ENTERUSE[address] [address] [facility] CBC AND DIFF (AUTO) ERYTHROCYT ES [#/VOLUME] IN BLOOD BY AUTOMATED COUNT 4.29 10*6/uL 4.23 - 5.66 04/07 Specimen Type: BLOOD No comment entered. Ordering Provider: JAMILA BARRON Report Released Date/Time: Apr 04, 2024 05:53 PM Reporting Lab: [facility] [address] [facility] [address] Performing Lab: [facility] [address] [facility] [address] [facility] CBC AND DIFF (AUTO) HEMOGLOBIN [MASS/VOLU ME] IN BLOOD 14.2 g/dL 12.8 - 17 04/07 Specimen Type: BLOOD No comment entered. Ordering Provider: JAMILA BARRON Report Released Date/Time: Apr 04, 2024 05:53 PM Reporting Lab: [facility] [place] [facility] [address] [facility] [address] Performing Lab: [facility] [place] [facility] [address] [facility] [address] [facility] CBC AND DIFF (AUTO) HEMATOCRIT [VOLUME FRACTION] OF BLOOD BY AUTOMATED COUNT 41.1 39.2 - 50.4 04/07 Specimen Type: BLOOD No comment entered. Ordering Provider: JAMILA BARRON Report Released Date/Time: Apr 04, 2024 05:53 PM Reporting Lab: [facility] [place] [facility] [address] [facility] [address] Performing Lab: [facility] [place] [facility] [address] [facility] [address] [facility] CBC AND DIFF (AUTO) MCV [ENTITIC VOLUME] BY AUTOMATED COUNT 95.8 fL 82 - 99 04/07 Specimen Type: BLOOD No comment entered. Ordering Provider: JAMILA BARRON Report Released Date/Time: Apr 04, 2024 05:53 PM Reporting Lab: [facility] [place] [facility] [address] [facility] [address] Performing Lab: [facility] [place] [facility] [address] [facility] [address] [facility] CBC AND DIFF (AUTO) MCHC [MASS/VOLU ME] BY AUTOMATED COUNT 34.5 g/dL 30.8 - 35.1 04/07 Specimen Type: BLOOD No comment entered. Ordering Provider: JAMILA BARRON Report Released Date/Time: Apr 04, 2024 05:53 PM Reporting Lab: [facility] [address] [facility] [address] Performing Lab: [facility] [place] [facility] [address] [facility] [address] [facility] CBC AND DIFF (AUTO) PLATELETS [#/VOLUME] IN BLOOD BY AUTOMATED COUNT 184 10*3/uL 140 - 360 04/07 Specimen Type: BLOOD No comment entered. Ordering Provider: JAMILA BARRON Report Released Date/Time: Apr 04, 2024 05:53 PM Reporting Lab: [facility] [place] [facility] [address] [facility] [address] Performing Lab: [facility] [place] [facility] [address] [facility] [address] [facility] CBC AND DIFF (AUTO) ERYTHROCYT E DISTRIBUTI ON WIDTH [RATIO] BY AUTOMATED COUNT 13.1 12.0 - 16.0 04/07 Specimen Type: BLOOD No comment entered. Ordering Provider: JAMILA BARRON Report Released Date/Time: Apr 04, 2024 05:53 PM Reporting Lab: [facility] [place] [facility] [address] [facility] [address] Performing Lab: [facility] [place] [facility] [address] [facility] [address] [facility] CBC AND DIFF (AUTO) MONOCYTES [#/VOLUME] IN BLOOD BY AUTOMATED COUNT 0.98 10*3/uL 0.30 - 1.10 04/07 Specimen Type: BLOOD No comment entered. Ordering Provider: JAMILA BARRON Report Released Date/Time: Apr 04, 2024 05:53 PM Reporting Lab: [facility] [place] [facility] [address] [facility] [address] Performing Lab: [facility] [place] [facility] [address] [facility] [address] [facility] CBC AND DIFF (AUTO) MCH [ENTITIC MASS] BY AUTOMATED COUNT 33.1 pg 26.2 - 32.6 04/07 H Specimen Type: BLOOD No comment entered. Ordering Provider: JAMILA BARRON Report Released Date/Time: Apr 04, 2024 05:53 PM Reporting Lab: [facility] [place] [facility] [address] [facility] [address] Performing Lab: [facility] [place] [facility] [address] [facility] [address] [facility] CBC AND DIFF (AUTO) NEUTROPHIL S/100 LEUKOCYTES IN BLOOD BY AUTOMATED COUNT 52.3 43.7 - 75.8 04/07 Specimen Type: BLOOD No comment entered. Ordering Provider: JAMILA BARRON Report Released Date/Time: Apr 04, 2024 05:53 PM Reporting Lab: [facility] [place] [address] [address] Performing Lab: [facility] [address] [address] [facility] CBC AND DIFF (AUTO) LYMPHOCYTE S/100 LEUKOCYTES IN BLOOD BY AUTOMATED COUNT 31.7 14.0 - 42.3 04/07 Specimen Type: BLOOD No comment entered. Ordering Provider: JAMILA BARRON Report Released Date/Time: Apr 04, 2024 05:53 PM Reporting Lab: [facility] [address] [address] Performing Lab: [facility] [address] [address] [facility] CBC AND DIFF (AUTO) MONOCYTES/ 100 LEUKOCYTES IN BLOOD BY AUTOMATED COUNT 12.6 5.1 - 13.7 04/07 Specimen Type: BLOOD No comment entered. Ordering Provider: JAMILA BARRON Report Released Date/Time: Apr 04, 2024 05:53 PM Reporting Lab: [facility] [place] [address] [address] Performing Lab: [facility] [address] [facility] [address] [facility] CBC AND DIFF (AUTO) EOSINOPHIL S/100 LEUKOCYTES IN BLOOD BY AUTOMATED COUNT 2.3 0.4 - 6.8 04/07 Specimen Type: BLOOD No comment entered. Ordering Provider: JAMILA BARRON Report Released Date/Time: Apr 04, 2024 05:53 PM Reporting Lab: [facility] [place] [facility] [address] [facility] [address] Performing Lab: [facility] [place] [facility] [address] [facility] [address] [facility] CBC AND DIFF (AUTO) BASOPHILS/ 100 LEUKOCYTES IN BLOOD BY AUTOMATED COUNT 0.6 0.1 - 2.0 04/07 Specimen Type: BLOOD No comment entered. Ordering Provider: JAMILA BARRON Report Released Date/Time: Apr 04, 2024 05:53 PM Reporting Lab: [facility] [place] [address] [address] Performing Lab: [facility] [place] [address] [address] [facility] CBC AND DIFF (AUTO) NEUTROPHIL S [#/VOLUME] IN BLOOD BY AUTOMATED COUNT 4.06 10*3/uL 2.20 - 7.60 04/07 Specimen Type: BLOOD No comment entered. Ordering Provider: JAMILA BARRON Report Released Date/Time: Apr 04, 2024 05:53 PM Reporting Lab: [facility] [place] [facility] [address] [facility] [address] Performing Lab: [facility] [place] [address] [address] [facility] CBC AND DIFF (AUTO) LYMPHOCYTE S [#/VOLUME] IN BLOOD BY AUTOMATED COUNT 2.46 10*3/uL 1.00 - 3.20 04/07 Specimen Type: BLOOD No comment entered. Ordering Provider: JAMILA BARRON Report Released Date/Time: Apr 04, 2024 05:53 PM Reporting Lab: [facility] [place] [facility] [address] [facility] [address] Performing Lab: [facility] [place] [facility] [address] [facility] [address] [facility] CBC AND DIFF (AUTO) EOSINOPHIL S [#/VOLUME] IN BLOOD BY AUTOMATED COUNT 0.18 10*3/uL 0.03 - 0.44 04/07 Specimen Type: BLOOD No comment entered. Ordering Provider: JAMILA BARRON Report Released Date/Time: Apr 04, 2024 05:53 PM Reporting Lab: [facility] [place] [facility] [address] [facility] [address] Performing Lab: [facility] [place] [address] [address] [facility] [place] [facility] CBC AND DIFF (AUTO) BASOPHILS [#/VOLUME] IN BLOOD BY AUTOMATED COUNT 0.05 10*3/uL 0.01 - 0.13 04/07 Specimen Type: BLOOD No comment entered. Ordering Provider: JAMILA BARRON Report Released Date/Time: Apr 04, 2024 05:53 PM Reporting Lab: [facility] [place] [address] [address] Performing Lab: [facility] [place] [address] [address] [facility] CBC AND DIFF (AUTO) IMMATURE GRANULOCYT ES/100 LEUKOCYTES IN BLOOD BY AUTOMATED COUNT 0.5 0.0 - 0.7 04/07 Specimen Type: BLOOD No comment entered. Ordering Provider: JAMILA BARRON Report Released Date/Time: Apr 04, 2024 05:53 PM Reporting Lab: [facility] [place] [address] [address] Performing Lab: [facility] [place] [address] [address] [facility] [place] [facility] CBC AND DIFF (AUTO) IMMATURE GRANULOCYT ES [#/VOLUME] IN BLOOD 0.04 10*3/uL 0.00 - 0.06 04/07 Specimen Type: BLOOD No comment entered. Ordering Provider: JAMILA BARRON Report Released Date/Time: Apr 04, 2024 05:53 PM Reporting Lab: [facility] [place] [facility] [address] [facility] [address] Performing Lab: [facility] [place] [facility] [address] [facility] [address] [place] [facility] [place] [facility] CBC AND DIFF (AUTO) NRBC % 0.0 0.0 - 0.0 04/07 Specimen Type: BLOOD No comment entered. Ordering Provider: JAMILA BARRON Report Released Date/Time: Apr 04, 2024 05:53 PM Reporting Lab: [facility] [place] [facility] [address] [facility] [address] Performing Lab: [facility] [place] [address] [address] [facility] CBC AND DIFF (AUTO) NRBC, ABS 0.00 10*3/uL 0.00 - 0.00 04/07 Specimen Type: BLOOD No comment entered. Ordering Provider: JAMILA BARRON Report Released Date/Time: Apr 04, 2024 05:53 PM Reporting Lab: [facility] [place] [address] [address] Performing Lab: [facility] [place] [address] [address] [facility] LIPID PANEL FASTING CHOLESTERO L [MASS/VOLU ME] IN SERUM OR PLASMA 139 mg/dL 04/07 Specimen Type: SERUM No comment entered. Ordering Provider: JAMILA BARRON Report Released Date/Time: Apr 04, 2024 05:53 PM Reporting Lab: [facility] [place] [facility] [address] [facility] [address] Performing Lab: [facility] [place] [address] [address] [place] [facility] [place] [facility] LIPID PANEL FASTING TRIGLYCERI DE [MASS/VOLU ME] IN SERUM OR PLASMA 136 mg/dL 0 - 150 04/07 Specimen Type: SERUM No comment entered. Ordering Provider: JAMILA BARRON Report Released Date/Time: Apr 04, 2024 05:53 PM Reporting Lab: [facility] [place] [facility] [address] [facility] [address] Performing Lab: [facility] [place] [facility] [address] [facility] [address] [facility] [place] [facility] LIPID PANEL FASTING CHOLESTERO L IN LDL [MASS/VOLU ME] IN SERUM OR PLASMA BY CALCULAMARCIE N 72 mg/dL 0 - 129 04/07 Specimen Type: SERUM No comment entered. Ordering Provider: JAMILA BARRON Report Released Date/Time: Apr 04, 2024 05:53 PM Reporting Lab: [facility] [place] [facility] [address] [facility] [address] Performing Lab: [facility] [place] [address] [address] [place] [facility] [place] [facility] LIPID PANEL FASTING CHOLESTERO L.TOTAL/CH OLESTEROL IN HDL [MASS RATIO] IN SERUM OR PLASMA 3.5 04/07 Specimen Type: SERUM No comment entered. Ordering Provider: JAMILA BARRON Report Released Date/Time: Apr 04, 2024 05:53 PM Reporting Lab: [facility] [place] [facility] [address] [facility] [address] Performing Lab: [facility] [place] [facility] [address] [facility] [address] [facility] [place] [facility] LIPID PANEL FASTING CHOLESTERO L IN HDL [MASS/VOLU ME] IN SERUM OR PLASMA 40 mg/dL 40 - 60 04/07 Specimen Type: SERUM No comment entered. Ordering Provider: JAMILA BARRON Report Released Date/Time: Apr 04, 2024 05:53 PM Reporting Lab: [facility] [place] [facility] [address] [facility] [address] Performing Lab: [facility] [place] [facility] [address] [facility] [address] [facility] [place] [facility] LIVER FUNCTION PROTEIN [MASS/VOLU ME] IN SERUM OR PLASMA 6.8 g/dL 6.0 - 8.3 04/07 Specimen Type: SERUM No comment entered. Ordering Provider: JAMILA BARRON Report Released Date/Time: Apr 04, 2024 05:53 PM Reporting Lab: [facility] [place] [facility] [address] [facility] [address] Performing Lab: [facility] [place] [facility] [address] [facility] [address] [facility] [place] [facility] LIVER FUNCTION ALBUMIN [MASS/VOLU ME] IN SERUM OR PLASMA 4.0 g/dL 3.5 - 5.0 04/07 Specimen Type: SERUM No comment entered. Ordering Provider: JAMILA BARRON Report Released Date/Time: Apr 04, 2024 05:53 PM Reporting Lab: [facility] [place] [address] Performing Lab: [facility] [place] [address] [address] [facility] LIVER FUNCTION ALKALINE PHOSPHATAS E [ENZYMATIC ACTIVITY/V OLUME] IN SERUM OR PLASMA 118 U/L 40 - 150 04/07 Specimen Type: SERUM No comment entered. Ordering Provider: JAMILA BARRON Report Released Date/Time: Apr 04, 2024 05:53 PM Reporting Lab: [facility] [place] [address] [address] Performing Lab: [facility] [place] [address] [address] [facility] [place] [facility] LIVER FUNCTION ASPARTATE AMINOTRANS FERASE [ENZYMATIC ACTIVITY/V OLUME] IN SERUM OR PLASMA 30 U/L 5 - 34 04/07 Specimen Type: SERUM No comment entered. Ordering Provider: JAMILA BARRON Report Released Date/Time: Apr 04, 2024 05:53 PM Reporting Lab: [facility] [place] [address] [address] Performing Lab: [facility] [place] [address] [place] [address] [facility] [place] [facility] LIVER FUNCTION ALANINE AMINOTRANS FERASE [ENZYMATIC ACTIVITY/V OLUME] IN SERUM OR PLASMA 23 U/L 04/07 Specimen Type: SERUM No comment entered. Ordering Provider: JAMILA BARRON Report Released Date/Time: Apr 04, 2024 05:53 PM Reporting Lab: [facility] [place] [address] [address] Performing Lab: [facility] [place] [address] [address] [facility] [place] [facility] LIVER FUNCTION BILIRUBIN. TOTAL [MASS/VOLU ME] IN SERUM OR PLASMA 1.0 mg/dL 0.2 - 1.2 04/07 Specimen Type: SERUM No comment entered. Ordering Provider: JAMILA BARRON Report Released Date/Time: Apr 04, 2024 05:53 PM Reporting Lab: [facility] [place] [address] [address] Performing Lab: [facility] [place] [address] [address] [facility] [place] [facility] TSH THYROTROPI N [UNITS/VOL UME] IN SERUM OR PLASMA 2.34 u[IU]/mL 0.35 - 5.00 04/07 Specimen Type: SERUM No comment entered. Ordering Provider: JAMILA BARRON Report Released Date/Time: Apr 04, 2024 05:53 PM Reporting Lab: [facility] [place] [address] [address] Performing Lab: [facility] [place] [address] [address] [facility] [place] [facility] URINALYS IS CLEAN CATCH COLOR OF URINE Yellow 04/07 Specimen Type: URINE Comment: If Glucose = >500 and Ketones are positive, please alert the Physician. Ordering Provider: JAMILA BARRON Report Released Date/Time: Apr 04, 2024 05:53 PM Reporting Lab: [facility] [place] [address] [address] Performing Lab[facility] [facility] [address] [facility] [address] [facility] [place] [facility] URINALYS IS CLEAN CATCH APPEARANCE OF URINE Clear 04/07 Specimen Type: URINE Comment: If Glucose = >500 and Ketones are positive, please alert the Physician. Ordering Provider: JAMILA BARRON Report Released Date/Time: Apr 04, 2024 05:53 PM Reporting Lab: [facility] [facility] [address] [facility] [address] Performing Lab: [facility] [facility] [address] [facility] [address] [facility] [place] [facility] URINALYS IS CLEAN CATCH GLUCOSE [MASS/VOLU ME] IN URINE Normalmg /dL 04/07 Specimen Type: URINE Comment: If Glucose = >500 and Ketones are positive, please alert the Physician. Ordering Provider: JAMILA BARRON Report Released Date/Time: Apr 04, 2024 05:53 PM Reporting Lab: [facility] [facility] [address] [facility] [address] Performing Lab: [place] [facility] [place] [facility] [address] [facility] [address] [facility] [place] [facility] URINALYS IS CLEAN CATCH KETONES [MASS/VOLU ME] IN URINE BY TEST STRIP NEGATIVE mg/dL 04/07 Specimen Type: URINE Comment: If Glucose = >500 and Ketones are positive, please alert the Physician. Ordering Provider: JAMILA BARRON Report Released Date/Time: Apr 04, 2024 05:53 PM Reporting Lab: [facility] [facility] [address] [facility] [address] Performing Lab: [facility] [facility] [address] [facility] [address] [facility] [place] [facility] URINALYS IS CLEAN CATCH ERYTHROCYT ES [PRESENCE] IN URINE SEDIMENT BY LIGHT MICROSCOPY NEGATIVE mg/dL 04/07 Specimen Type: URINE Comment: If Glucose = >500 and Ketones are positive, please alert the Physician. Ordering Provider: JAMILA BARRON Report Released Date/Time: Apr 04, 2024 05:53 PM Reporting Lab: [facility] [place] [facility] [address] [facility] [address] Performing Lab: [facility] [place] [facility] [address] [facility] [address] [facility] [place] [facility] URINALYS IS CLEAN CATCH PROTEIN [MASS/VOLU ME] IN URINE BY TEST STRIP 10 mg/dL 04/07 Specimen Type: URINE Comment: If Glucose = >500 and Ketones are positive, please alert the Physician. Ordering Provider: JAMILA BARRON Report Released Date/Time: Apr 04, 2024 05:53 PM Reporting Lab: [facility] [place] [facility] [address] [facility] [address] Performing Lab: [place] [facility] [place] [facility] [address] [facility] [address] [facility] [place] [facility] URINALYS IS CLEAN CATCH NITRITE [PRESENCE] IN URINE NEGATIVE mg/dL 04/07 Specimen Type: URINE Comment: If Glucose = >500 and Ketones are positive, please alert the Physician. Ordering Provider: JAMILA BARRON Report Released Date/Time: Apr 04, 2024 05:53 PM Reporting Lab: [facility] [place] [facility] [address] [facility] [address] Performing Lab: [facility] [place] [facility] [address] [facility] [address] [facility] [place] [facility] URINALYS IS CLEAN CATCH BILIRUBIN. TOTAL [PRESENCE] IN URINE NEGATIVE mg/dL 04/07 Specimen Type: URINE Comment: If Glucose = >500 and Ketones are positive, please alert the Physician. Ordering Provider: JAMILA BARRON Report Released Date/Time: Apr 04, 2024 05:53 PM Reporting Lab: [facility] [place] [facility] [address] [facility] [address] Performing Lab: [facility] [place] [facility] [address] [facility] [address] [facility] [place] [facility] URINALYS IS CLEAN CATCH SPECIFIC GRAVITY OF URINE BY REFRACTOME TRY 1.024 1.016 - 1.022 04/07 H Specimen Type: URINE Comment: If Glucose = >500 and Ketones are positive, please alert the Physician. Ordering Provider: JAMILA BARRON Report Released Date/Time: Apr 04, 2024 05:53 PM Reporting Lab: [facility] [place] [facility] [address] [facility] [address] Performing Lab: [facility] [place] [facility] [address] [facility] [address] [facility] [place] [facility] URINALYS IS CLEAN CATCH PH OF URINE BY TEST STRIP 7.0 5.0 - 9.0 04/07 Specimen Type: URINE Comment: If Glucose = >500 and Ketones are positive, please alert the Physician. Ordering Provider: JAMILA BARRON Report Released Date/Time: Apr 04, 2024 05:53 PM Reporting Lab: [facility] [place] [facility] [address] [facility] [address] Performing Lab: [facility] [facility] [address] [facility] [address] [facility] [place] [facility] URINALYS IS CLEAN CATCH UROBILINOG EN [MASS/VOLU ME] IN URINE BY TEST STRIP Normalmg /dL <2.0 - 2.0 04/07 Specimen Type: URINE Comment: If Glucose = >500 and Ketones are positive, please alert the Physician. Ordering Provider: JAMILA BARRON Report Released Date/Time: Apr 04, 2024 05:53 PM Reporting Lab: [facility] [place] [facility] [address] [facility] [address] Performing Lab: [facility] [place] [facility] [address] [facility] [address] [facility] [place] [facility] URINALYS IS CLEAN CATCH LEUKOCYTE ESTERASE [PRESENCE] IN URINE BY TEST STRIP NEGATIVE 04/07 Specimen Type: URINE Comment: If Glucose = >500 and Ketones are positive, please alert the Physician. Ordering Provider: JAMILA BARRON Report Released Date/Time: Apr 04, 2024 05:53 PM Reporting Lab: [facility] [place] [facility] [address] [facility] [address] Performing Lab: [facility] [place] [facility] [address] [facility] [address] [facility] [place] [facility] BASIC METABOLI C PANEL (fasting ) UREA NITROGEN [MASS/VOLU ME] IN SERUM OR PLASMA 16 mg/dL 7 - 25 10/07 Specimen Type: SERUM No comment entered. Ordering Provider: JAMILA BARRON Report Released Date/Time: Oct 05, 2023 11:58 PM Reporting Lab: [facility] [place] [facility] [address] [facility] [address] Performing Lab: [place] [facility] [place] [facility] [address] [facility] [address] [facility] [facility] BASIC METABOLI C PANEL (fasting ) GLUCOSE [MASS/VOLU ME] IN SERUM OR PLASMA 102 mg/dL 65 - 100 10/07 H Specimen Type: SERUM No comment entered. Ordering Provider: JAMILA BARRON Report Released Date/Time: Oct 05, 2023 11:58 PM Reporting Lab: [facility] [place] [facility] [address] [facility] [address] Performing Lab: [facility] [place] [facility] [address] [facility] [address] [place] [facility] [place] [facility] BASIC METABOLI C PANEL (fasting ) SODIUM [MOLES/VOL UME] IN SERUM OR PLASMA 143 mmol/L 135 - 145 10/07 Specimen Type: SERUM No comment entered. Ordering Provider: JAMILA BARRON Report Released Date/Time: Oct 05, 2023 11:58 PM Reporting Lab: [facility] [place] [facility] [address] [facility] [address] Performing Lab: [facility] [facility] [address] [facility] [address] [facility] [place] [facility] BASIC METABOLI C PANEL (fasting ) POTASSIUM [MOLES/VOL UME] IN SERUM OR PLASMA 4.4 mmol/L 3.5 - 5.0 10/07 Specimen Type: SERUM No comment entered. Ordering Provider: JAMILA BARRON Report Released Date/Time: Oct 05, 2023 11:58 PM Reporting Lab: [place] [facility] [place] [facility] [address] [facility] [address] Performing Lab: [place] [facility] [facility] [address] [address] [facility] [place] [facility] BASIC METABOLI C PANEL (fasting ) CHLORIDE [MOLES/VOL UME] IN SERUM OR PLASMA 106 mmol/L 100 - 110 10/07 Specimen Type: SERUM No comment entered. Ordering Provider: JAMILA BARRON Report Released Date/Time: Oct 05, 2023 11:58 PM Reporting Lab: [place] [facility] [facility] [address] [address] Performing Lab: [place] [facility] [facility] [facility] [address] [address] [facility] BASIC METABOLI C PANEL (fasting ) CARBON DIOXIDE, TOTAL [MOLES/VOL UME] IN SERUM OR PLASMA 26 meq/L 20 - 30 10/07 Specimen Type: SERUM No comment entered. Ordering Provider: JAMILA BARRON Report Released Date/Time: Oct 05, 2023 11:58 PM Reporting Lab: [place] [facility] [facility]ENTERUSE[address] [address] Performing Lab: [place] [facility] [facility] [facility]ENTER[facility]ETS [address] [address] [facility] [place] [facility] BASIC METABOLI C PANEL (fasting ) CREATININE [MASS/VOLU ME] IN SERUM OR PLASMA 1.01 mg/dL 0.50 - 1.40 10/07 Specimen Type: SERUM No comment entered. Ordering Provider: JAMILA BARRON Report Released Date/Time: Oct 05, 2023 11:58 PM Reporting Lab: [place] [facility] [facility]ENTERUSE[address] [address] Performing Lab: [place] [facility] [facility] [facility]ENTER[facility]ETS [address] [address] [facility]RC[facility] HOM[facility]RN [place] [facility] BASIC METABOLI C PANEL (fasting ) GLOMERULAR FILTRATION RATE/1.73 SQ M.PREDICTE D [VOLUME RATE/AREA] IN SERUM, PLASMA OR BLOOD BY CREATININE -BASED FORMULA (CKD-EPI 2020) 73 mL/min 60 10/07 Specimen Type: SERUM No comment entered. Ordering Provider: JAMILA BARRON Report Released Date/Time: Oct 05, 2023 11:58 PM Reporting Lab: [facility] [place] [address] [address] Performing Lab: [facility]ITALRC[facility] AND NURSING HOMETRN [facility] [address] [facility] [address] [facility]USE [facility] CBC AND DIFF (AUTO) LEUKOCYTES [#/VOLUME] IN BLOOD BY AUTOMATED COUNT 7.99 10*3/uL 4.50 - 11.00 10/07 Specimen Type: BLOOD No comment entered. Ordering Provider: JAMILA BARRON Report Released Date/Time: Oct 05, 2023 11:58 PM Reporting Lab: [facility] [place] [facility] [address] [facility] [address] Performing Lab: [facility] [place] [facility] [address] [facility] [address] [facility] CBC AND DIFF (AUTO) ERYTHROCYT ES [#/VOLUME] IN BLOOD BY AUTOMATED COUNT 4.47 10*6/uL 4.23 - 5.66 10/07 Specimen Type: BLOOD No comment entered. Ordering Provider: JAMILA BARRON Report Released Date/Time: Oct 05, 2023 11:58 PM Reporting Lab: [facility] [place] [address] [address] Performing Lab: [facility]RC[facility] N[facility] HOMETRN [facility] [address] [address] [facility]USE [facility] CBC AND DIFF (AUTO) HEMOGLOBIN [MASS/VOLU ME] IN BLOOD 14.6 g/dL 12.8 - 17 10/07 Specimen Type: BLOOD No comment entered. Ordering Provider: JAMILA BARRON Report Released Date/Time: Oct 05, 2023 11:58 PM Reporting Lab: [facility] [place] [facility] [address] [facility] [address] Performing Lab: [facility] [place] [facility] [address] [facility] [address] [facility] [place] [facility] CBC AND DIFF (AUTO) HEMATOCRIT [VOLUME FRACTION] OF BLOOD BY AUTOMATED COUNT 42.7 39.2 - 50.4 10/07 Specimen Type: BLOOD No comment entered. Ordering Provider: JAMILA BARRON Report Released Date/Time: Oct 05, 2023 11:58 PM Reporting Lab: [facility] [place] [facility] [address] [facility] [address] Performing Lab: [place] [facility] [place] [facility] [address] [facility] [address] [place] [facility] [place] [facility] CBC AND DIFF (AUTO) MCV [ENTITIC VOLUME] BY AUTOMATED COUNT 95.5 fL 82 - 99 10/07 Specimen Type: BLOOD No comment entered. Ordering Provider: JAMILA BARRON Report Released Date/Time: Oct 05, 2023 11:58 PM Reporting Lab: [facility] [place] [facility] [address] [facility] [address] Performing Lab: [place] [facility] [place] [facility] [address] [facility] [address] [place] [facility] [facility] CBC AND DIFF (AUTO) MCHC [MASS/VOLU ME] BY AUTOMATED COUNT 34.2 g/dL 30.8 - 35.1 10/07 Specimen Type: BLOOD No comment entered. Ordering Provider: JAMILA BARRON Report Released Date/Time: Oct 05, 2023 11:58 PM Reporting Lab: [facility] [place] [facility] [address] [facility] [address] Performing Lab: [facility] [place] [facility] [address] [facility] [address] [place] [facility] [place] [facility] CBC AND DIFF (AUTO) PLATELETS [#/VOLUME] IN BLOOD BY AUTOMATED COUNT 126 10*3/uL 140 - 360 10/07 L Specimen Type: BLOOD No comment entered. Ordering Provider: JAMILA BARRON Report Released Date/Time: Oct 05, 2023 11:58 PM Reporting Lab: [facility] [place] [facility] [address] [facility] [address] Performing Lab: [facility] [place] [facility] [address] [facility] [address] [facility] [place] [facility] CBC AND DIFF (AUTO) ERYTHROCYT E DISTRIBUTI ON WIDTH [RATIO] BY AUTOMATED COUNT 12.9 12.0 - 16.0 10/07 Specimen Type: BLOOD No comment entered. Ordering Provider: JAMILA BARRON Report Released Date/Time: Oct 05, 2023 11:58 PM Reporting Lab: [place] [facility] [place] [address] [address] Performing Lab: [place] [facility] [place] [address] [address] [place] [facility] [facility] CBC AND DIFF (AUTO) MONOCYTES [#/VOLUME] IN BLOOD BY AUTOMATED COUNT 0.79 10*3/uL 0.30 - 1.10 10/07 Specimen Type: BLOOD No comment entered. Ordering Provider: JAMILA BARRON Report Released Date/Time: Oct 05, 2023 11:58 PM Reporting Lab: [facility] [place] [facility] [address] [facility] [address] Performing Lab: [place] [facility] [place] [address] [address] [place] [facility] [facility] CBC AND DIFF (AUTO) MCH [ENTITIC MASS] BY AUTOMATED COUNT 32.7 pg 26.2 - 32.6 10/07 H Specimen Type: BLOOD No comment entered. Ordering Provider: JAMILA BARRON Report Released Date/Time: Oct 05, 2023 11:58 PM Reporting Lab: [facility] [place] [facility] [address] [facility] [address] Performing Lab: [place] [facility] [place] [address] [address] [place] [facility] [place] [facility] CBC AND DIFF (AUTO) NEUTROPHIL S/100 LEUKOCYTES IN BLOOD BY AUTOMATED COUNT 54.5 43.7 - 75.8 10/07 Specimen Type: BLOOD No comment entered. Ordering Provider: JAMILA BARRON Report Released Date/Time: Oct 05, 2023 11:58 PM Reporting Lab: [facility] [place] [facility] [address] [facility] [address] Performing Lab: [facility] [place] [facility] [address] [facility] [address] [facility] [place] [facility] CBC AND DIFF (AUTO) LYMPHOCYTE S/100 LEUKOCYTES IN BLOOD BY AUTOMATED COUNT 33.3 14.0 - 42.3 10/07 Specimen Type: BLOOD No comment entered. Ordering Provider: JAMILA BARRON Report Released Date/Time: Oct 05, 2023 11:58 PM Reporting Lab: [facility] [place] [address] [address] Performing Lab: [facility] [place] [address] [address] [facility] [place] [facility] CBC AND DIFF (AUTO) MONOCYTES/ 100 LEUKOCYTES IN BLOOD BY AUTOMATED COUNT 9.9 5.1 - 13.7 10/07 Specimen Type: BLOOD No comment entered. Ordering Provider: JAMILA BARRON Report Released Date/Time: Oct 05, 2023 11:58 PM Reporting Lab: [facility] [place] [address] [address] Performing Lab: [facility] [place] [facility] [address] [facility] [address] [facility] [place] [facility] CBC AND DIFF (AUTO) EOSINOPHIL S/100 LEUKOCYTES IN BLOOD BY AUTOMATED COUNT 1.4 0.4 - 6.8 10/07 Specimen Type: BLOOD No comment entered. Ordering Provider: JAMILA BARRON Report Released Date/Time: Oct 05, 2023 11:58 PM Reporting Lab: [facility] [place] [address] [address] Performing Lab: [facility] [place] [address] [address] [place] [facility] [place] [facility] CBC AND DIFF (AUTO) BASOPHILS/ 100 LEUKOCYTES IN BLOOD BY AUTOMATED COUNT 0.6 0.1 - 2.0 10/07 Specimen Type: BLOOD No comment entered. Ordering Provider: JAMILA BARRON Report Released Date/Time: Oct 05, 2023 11:58 PM Reporting Lab: [facility] [address] [place] [phone] Performing Lab[facility] [address] [facility] [phone] [facility] CBC AND DIFF (AUTO) NEUTROPHIL S [#/VOLUME] IN BLOOD BY AUTOMATED COUNT 4.36 10*3/uL 2.20 - 7.60 10/07 Specimen Type: BLOOD No comment entered. Ordering Provider: JAMILA BARRON Report Released Date/Time: Oct 05, 2023 11:58 PM Reporting Lab: [facility] [address] [place] [phone] Performing Lab: [facility] [address] [facility] [address] [facility] CBC AND DIFF (AUTO) LYMPHOCYTE S [#/VOLUME] IN BLOOD BY AUTOMATED COUNT 2.66 10*3/uL 1.00 - 3.20 10/07 Specimen Type: BLOOD No comment entered. Ordering Provider: JAMILA BARRON Report Released Date/Time: Oct 05, 2023 11:58 PM Reporting Lab: [facility] [address] [place] [phone] Performing Lab: [facility] [address] [place] [phone] [facility] CBC AND DIFF (AUTO) EOSINOPHIL S [#/VOLUME] IN BLOOD BY AUTOMATED COUNT 0.11 10*3/uL 0.03 - 0.44 10/07 Specimen Type: BLOOD No comment entered. Ordering Provider: JAMILA BARRON Report Released Date/Time: Oct 05, 2023 11:58 PM Reporting Lab: [facility] [address] [facility] [phone] Performing Lab: [facility] [address] [facility] [phone] [facility] CBC AND DIFF (AUTO) BASOPHILS [#/VOLUME] IN BLOOD BY AUTOMATED COUNT 0.05 10*3/uL 0.01 - 0.13 10/07 Specimen Type: BLOOD No comment entered. Ordering Provider: JAMILA BARRON Report Released Date/Time: Oct 05, 2023 11:58 PM Reporting Lab: [facility] [address] [facility] [phone] Performing Lab: [facility] [facility] [address] [facility] [phone] [facility] CBC AND DIFF (AUTO) IMMATURE GRANULOCYT ES/100 LEUKOCYTES IN BLOOD BY AUTOMATED COUNT 0.3 0.0 - 0.7 10/07 Specimen Type: BLOOD No comment entered. Ordering Provider: JAMILA BARRON Report Released Date/Time: Oct 05, 2023 11:58 PM Reporting Lab: [facility] [place] [facility] [address] [facility] [address] Performing Lab: [facility] [place] [address] [address] [facility] [place] [facility] CBC AND DIFF (AUTO) IMMATURE GRANULOCYT ES [#/VOLUME] IN BLOOD 0.02 10*3/uL 0.00 - 0.06 10/07 Specimen Type: BLOOD No comment entered. Ordering Provider: JAMILA BARRON Report Released Date/Time: Oct 05, 2023 11:58 PM Reporting Lab: [facility] [place] [address] [address] Performing Lab: [facility] [place] [address] [address] [facility] [place] [facility] LIPID PANEL FASTING CHOLESTERO L [MASS/VOLU ME] IN SERUM OR PLASMA 133 mg/dL 10/07 Specimen Type: SERUM No comment entered. Ordering Provider: JAMILA BARRON Report Released Date/Time: Oct 05, 2023 11:58 PM Reporting Lab: [facility] [place] [facility] [address] [facility] [address] Performing Lab: [facility] [place] [facility] [address] [facility] [address] [facility] [place] [facility] LIPID PANEL FASTING TRIGLYCERI DE [MASS/VOLU ME] IN SERUM OR PLASMA 98 mg/dL 0 - 150 10/07 Specimen Type: SERUM No comment entered. Ordering Provider: JAMILA BARRON Report Released Date/Time: Oct 05, 2023 11:58 PM Reporting Lab: [facility] [place] [facility] [address] [facility] [address] Performing Lab: [facility] [place] [address] [address] [facility] [place] [facility] LIPID PANEL FASTING CHOLESTERO L IN LDL [MASS/VOLU ME] IN SERUM OR PLASMA BY CALCULATIO N 70 mg/dL 0 - 129 10/07 Specimen Type: SERUM No comment entered. Ordering Provider: JAMILA BARRON Report Released Date/Time: Oct 05, 2023 11:58 PM Reporting Lab: [facility] [place] [facility] [address] [facility] [address] Performing Lab: [facility] [place] [facility] [address] [facility] [address] [facility] [place] [facility] LIPID PANEL FASTING CHOLESTERO L.TOTAL/CH OLESTEROL IN HDL [MASS RATIO] IN SERUM OR PLASMA 3.1 10/07 Specimen Type: SERUM No comment entered. Ordering Provider: JAMILA BARRON Report Released Date/Time: Oct 05, 2023 11:58 PM Reporting Lab: [facility] [place] [facility] [address] [facility] [address] Performing Lab: [facility] [place] [facility] [address] [facility] [address] [facility] [place] [facility] LIPID PANEL FASTING CHOLESTERO L IN HDL [MASS/VOLU ME] IN SERUM OR PLASMA 43 mg/dL 40 - 60 10/07 Specimen Type: SERUM No comment entered. Ordering Provider: JAMILA BARRON Report Released Date/Time: Oct 05, 2023 11:58 PM Reporting Lab: [facility] [place] [facility] [address] [facility] [address] Performing Lab: [facility] [place] [facility] [address] [facility] [address] [facility] [place] [facility] LIVER FUNCTION PROTEIN [MASS/VOLU ME] IN SERUM OR PLASMA 6.6 g/dL 6.0 - 8.3 10/07 Specimen Type: SERUM No comment entered. Ordering Provider: JAMILA BARRON Report Released Date/Time: Oct 05, 2023 11:58 PM Reporting Lab: [facility] [place] [facility] [address] [facility] [address] Performing Lab: [facility] [place] [address] [address] [facility] LIVER FUNCTION ALBUMIN [MASS/VOLU ME] IN SERUM OR PLASMA 3.8 g/dL 3.5 - 5.0 10/07 Specimen Type: SERUM No comment entered. Ordering Provider: JAMILA BARRON Report Released Date/Time: Oct 05, 2023 11:58 PM Reporting Lab: [facility] [place] [facility] [address] [facility] [address] Performing Lab: [facility] [place] [facility] [address] [facility] [address] [facility] [place] [facility] LIVER FUNCTION ALKALINE PHOSPHATAS E [ENZYMATIC ACTIVITY/V OLUME] IN SERUM OR PLASMA 103 U/L 40 - 150 10/07 Specimen Type: SERUM No comment entered. Ordering Provider: JAMILA BARRON Report Released Date/Time: Oct 05, 2023 11:58 PM Reporting Lab: [facility] [place] [facility] [address] [facility] [address] Performing Lab: [facility] [place] [facility] [address] [facility] [address] [facility] [place] [facility] LIVER FUNCTION ASPARTATE AMINOTRANS FERASE [ENZYMATIC ACTIVITY/V OLUME] IN SERUM OR PLASMA 33 U/L 5 - 34 10/07 Specimen Type: SERUM No comment entered. Ordering Provider: JAMILA BARRON Report Released Date/Time: Oct 05, 2023 11:58 PM Reporting Lab: [facility] [place] [facility] [address] [facility] [address] Performing Lab: [facility] [place] [facility] [address] [facility] [address] [facility] [place] [facility] LIVER FUNCTION ALANINE AMINOTRANS FERASE [ENZYMATIC ACTIVITY/V OLUME] IN SERUM OR PLASMA 29 U/L 10/07 Specimen Type: SERUM No comment entered. Ordering Provider: JAMILA BARRON Report Released Date/Time: Oct 05, 2023 11:58 PM Reporting Lab: [facility] [place] [address] [address] Performing Lab: [facility] [place] [facility] [address] [facility] [address] [facility] [place] [facility] LIVER FUNCTION BILIRUBIN. TOTAL [MASS/VOLU ME] IN SERUM OR PLASMA 0.7 mg/dL 0.2 - 1.2 10/07 Specimen Type: SERUM No comment entered. Ordering Provider: JAMILA BARRON Report Released Date/Time: Oct 05, 2023 11:58 PM Reporting Lab: [facility] [place] [address] [address] Performing Lab: [facility] [place] [address] [address] [facility] [place] [facility] Vital Signs Combined list of inpatient and outpatient Vital Signs from Department of Defense and Veterans Affairs, ranging from 12 months to all on record, depending upon the facility. Vital Sign Value Date Comments Source SYSTOLIC BLOOD PRESSURE 162 04/13/20 24 13:23:12 [facility] [place] [facility] DIASTOLIC BLOOD PRESSURE 70 024 13:23:12 [facility] [place] [facility] PULSE OXIMETRY 96 04/13/2024 13:23:12 [facility] WEIGHT 193.8 04/13/2024 13:23:12 [facility] [place] BMI 31 kg/m2 04/13/2024 13:23:12 [facility] [place] [...] 13:15:19 [facility] BMI 35 kg/m2 10/16/2023 13:15:19 [facility] PAIN 0 10/16/2023 13:15:19 [facility] TEMPERATURE 98.2 10/16/2023 13:15:19 [facility] [place] PULSE 86 10/16/2023 13:15:19 [facility] RESPIRATION 16 10/16/2023 13:15:19 [facility] [place] Encounters Combined list of: 1) Encounters from Department of Veterans Affairs facilities going backup to the last 18 months, not all VA inpatient encounters are included; 2) Encounters from the Department of Defense facilities going backup to 280 months. Location Location Details Encounter Type Encounter Number Reason For Visit Attending Provider ADM Date DC Date Status Disposition Source [facility] Encounter [id number] 03/06 [facility] Encounter [id number] 04/08 [facility] OFF[facility] O/P EST SF 10-19 MIN [id number] Diagnos is: ICD-10- CM I10 Essenti al (primar y) hyperte nsion RICO BARRON RD D 04/15 [facility] En[facility] [id number] 04/16 [facility] OFF[facility] O/P EST LOW 20-29 MIN [id number] Diagnos is: ICD-10- CM 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 RANCHO RODRIGUEZ 04/30 [facility] Encounter [id number] 06/14 [facility] Encounter [id number] 06/16 [facility] Encounter [id number] 06/19 [facility] En[facility] [id number] 06/27 [facility] Encounter [id number] 10/08 [facility] OFFICE O/P EST LOW 20 MIN [id number] Diagnos is: ICD-10- CM H67.3 Otitis media in disease s classif ied elsewhe re, bilater al RICO BARRON RD D 10/15 [facility] OFF/OP EST MAY X REQ PHY/QHP [id number] Diagnos is: ICD-10- CM Z23 Encount er for immuniz atdomo RICO BARRON RD D 10/15 [facility] UNLISTED SPEC DERM SVC/PX [id number] Diagnos is: ICD-10- CM Z13.89 Encount er for screeni ng for other disorde r GORDON BEAUCHAMP ICA A 10/23 [facility] [place] OFFICE O/P EST SF 10 MIN [id number] Diagnos is: ICD-10- CM R21 Rash and other nonspec ific skin eruptio n WILEY PASTOR PH J 10/23 [facility] [place] [facility] Out[facility] Encounter [id number] 10/23 [facility] En[facility] [id number] 10/23 [facility] En[facility] [id number] 11/20 [facility] Encounter [id number] 11/24 [facility] En[facility] [id number] 11/27 [facility] En[facility] [id number] 11/28 [facility] Encounter [id number] 11/30 [facility] UNLISTED SPEC DERM SVC/PX [id number] Diagnos is: ICD-10- CM Z13.89 Encount er for screeni ng for other disorde r GORDON BEAUCHAMP ICA A 12/04 [facility] En[facility] [id number]/04 [facility] [place] Outpatient Encounter [id number] Diagnos is: ICD-10- CM D48.5 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 IRENA BRADFORD 12/04 [facility] [place] Encounter [id number]/04 [facility] Encounter [id number] 12/04 [facility] Encounter [id number] MICHELLE FIGUEROA M 12/26 [facility] [place] [place] [id number] Diagnos is: ICD-10- CM 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, bilater al Yossi HARRINGTON YULISA E 12/29 [facility] En[facility] [id number] 12/29 [facility] Encounter [id number] 01/05 [facility] Encounter [id number] 01/09 [facility] En[facility] [id number] 01/12 [facility]counter [id number] 01/12 [facility] Encounter [id number] 01/12 [facility] Encounter [id number] IRASEMA MONTILLA 01/13 [facility] En[facility] [id number] 01/16 [facility] En[facility] [id number] 01/19 [facility] En[facility] [id number] 01/22 [facility] Out[facility] Encounter [id number] 02/02 [facility] ORTHC/PROS TC MGMT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
== END 2024-08-24 13:28 | disposition home or self-care (01) ==
LOC: HO.HOSX 13:27
DX: S82.62XA Displaced fracture of lateral malleolus of left fibula, initial encounter for closed fracture (principal)
CPT/HCPCS: 73610; 99212

== ENCOUNTER 2024-08-24 13:40 | Outpatient (AMB) | payer OTHER, SELFPAY ==
[2024-08-24 13:52] VITALS: BMI 31.1
--- NOTE | 2024-08-24 13:52 | A.OFFVIS_ITS ---
Vital Signs 08/24/24 13:52 Height 5 ft 6 in Weight 193 lb BMI 31.1 Intake Visit Reasons: OV: LT Ankle ORIF 01/21/24 w/ xray Intake Note: Reed is a 83 year old male who presents today with his daughter for a post operative visit s/p left ankle ORIF 01/21/[address] Chirinos. At his last visit he was given an order for compression stockings and advised to remain NWB. Patie nt reports he was unable to obtain his compression stockings as the pharmacy does not carry it. Patient would like a script to take to a medical supply store. Allergies niacin Allergy (Severe, Verified 08/24/24 14:00) Upset Stomach procaine [From Novocain] Allergy (Severe, Verified 08/24/24 14:00) I GET MEAN simvastatin Adverse Reaction (Severe, Verified 08/24/24 14:00) myopathy HPI HPI OV: LT Ankle ORIF 01/21/24 w/ xray: Details: Reed is a 83 year old male who presents today with his daughter for a post operative visit s/p left ankle ORIF 01/21/[address] Chirinos. At his last visit he was given an order for compression stockings and advised to remain NWB. P atient reports he was unable to obtain his compression stockings as the pharmacy does not carry it. Patient would like a script to take to a medical supply store. Patient does state that he did buy some compression soft that he feels are helping, and prefer to continue to wear those this is acceptable no other acute complaints concerns at this time. [facility] Medical History Hyperlipidemia HTN (hypertension) CAD (coronary artery disease) Murmur, cardiac Chest pain COPD (chronic obstructive pulmonary disease) Asbestosis Surgical History S/P TAVR (transcatheter aortic valve replacement) Stented coronary artery Hx of cardiac catheterization Family History Father CAD (coronary artery disease) Mother No problems noted. Social History Patient Tobacco Use Status: Former Tobacco user Tobacco use type: Cigarette and Cigar Years Smoked: 14 years old Review of Systems Const All systems reviewed & are unremarkable except as noted in HPI and below Physical Exam Vital Signs: BMI result Body Mass Index 31.1 Extrem Other: On inspection, there is no deformity of the L ankle Incision sites are well healed No evidence of discharge There there is noted to be some discoloration in the lateral aspect of the patient's ankle No ecchymosis Improved edema noted of the left ankle, improved from last visit Evidence of skin breakdown noted at previous evaluation appears to be resolving at this time Patient reports very mild tenderness to palpation about the left lateral malleolus Patient is able to plantar flex and dorsiflex the foot minimally, limited due to swelling and pain Distal sensation intact Capillary refill brisk Results Reviewed Results Reviewed: X-rays obtained in the office today and independently reviewed by me, Demetrius Contreras PA-C, demonstrate well-healing fracture of the left lateral malleolus with orthopedic hardware in place and in satisfactory clinical alignment. No evidence of re fracture, damage to orthopedic hardware, or other injury. However, there does appear to be some evidence of disuse osteopenia versus radiographic findings consistent with potential infection Assessment & Plan Assessment & Plan (1) Ankle fracture, lateral malleolus, closed: Code(s): S82.63XA - Displaced fracture of lateral malleolus of unspecified fibula, initial encounter for closed fracture Category: Medical Qualifiers: Encounter type: initial encounter Fracture alignment: displaced Laterality: left Qualified Code(s): S82.62XA - Displaced fracture of lateral malleolus of left fibula, initial encounter for closed fracture Plan 1. Lateral malleolus fracture of the left ankle status post ORIF DOS 01/21/2024 Patient was evaluated with Dr. Chirinos, who did not see the patient with me in clinic today, and a collaborative treatment plan was formed: Patient is educated that the x-ray findings that he has, along with his physical exam, do suggest potential disuse osteopenia versus potential lingering infection in the ankle joint and hardware However, at this time, we can not differentiate due to swelling Patient is also educated that he needs to continue to have his ankle elevated consistently above heart level to allow the swelling to go down further Compression stockings ordered for this patient in order to get his swelling down even further Patient should avoid weight-bearing until follow-up Patient was amenable to this plan Patient will follow-up in 1 weeks for reassessment of swelling, sooner with any acute concerns Orders: Orders XR ankle LT min 3V Today M25.572 - Pain in left ankle and joints of left foot Coding Level of Care Code Est Pt Level 3 (08751) Diagnoses Closed displaced fracture of lateral malleolus of left fibula, initial encounter S82.62XA Encounter type: initial encounter Fracture alignment: displaced Laterality: left
--- OUTSIDE RECORDS SUMMARY | 2024-08-24 14:49 | XMS_ITS | Encounter Summary ---
Author Organization [facility] Address [address] [place] [address] Care Team Providers Care Career Center Director Name Role Phone Adam Noonan MD Primary Care Provider Unava ilable Encounter Details Date Type Department Care Team Description 11/18/2018 Release of Information Medical Records [address] [place] [id number] Abstract, Provider Social History Tobacco Use Types [...] on filedocumented in this encounter Care Teams Career Center Director Relationship Specialty Start Date End Date Adam Noonan MD PCP - General Internal Medicine 11/19/17 documented as of this encounter
--- OUTSIDE RECORDS SUMMARY | 2024-08-24 14:49 | XMS_ITS | Continuity of Care Document ---
Author Name [facility] Organization [facility] Care Team Providers Care Cilnical Scientist Name Role Phone [facility] Unavailable Unavailable Problems Combined list of problems from Department of Defense and Veterans Affairs facilities. It does not include entries that were removed or entered in error. Problem Status Onset Date Problem Type Date of Resolution Comments Source Chronic dermatitis Active 023 Condition Oct 05, 2022 Entered By: BYRON BARRON Comment: referred to dermatology [facility] Chest Pain (SCT [id number]) Active Condition Jan 02, 2022 Entered By: BYRON BARRON Comment: ordered stress test [facility] COPD - Chronic Obstructive Pulmonary Disease (SCT [id number]) Active Condition Dec 28, 2021 Entered By: BYRON BARRON Comment: on inhalers [facility] Cataract Active Condition Oct 12, 2020 Entered By: BYRON BARRON Comment: referred for surgery [facility] HTN - Hypertension (SCT [id number]) Active Condition Oct 21, 2020 Entered By: BYRON BARRON Comment: treated witn medication [facility] Hypercholesterolemia (SCT [id number]) Active Condition Oct 21, 2020 Entered By: [...] Active Diagnosis [facility] Medications Combined list of [...] TWICE DAILY FOR INFECTIO N ORAL 11/15/2023 [id number] MAUREEN BARRON 2023 20 [facility] ASPIRIN 81MG TAB,CHEWABL E CHEW ONE TABLET BY MOUTH ONCE DAILY ORAL ACTIVE JANINE HAMMOND R 2021 [facility] ATORVASTATI N CA 80MG TAB TAKE ONE TABLET BY MOUTH AT BEDTIME ORAL ACTIVE 06/26/2025 [id number] MAUREEN BARRON PAIGE D 2023 90 [facility] ATORVASTATI N CA 80MG TAB TAKE ONE TABLET BY MOUTH AT BEDTIME ORAL DISCONT INUED 06/19/2024 [id number] MOHAMUD ARGUETA AV 2022 90 [facility] ATORVASTATI N CA 80MG TAB TAKE ONE TABLET BY MOUTH ONCE DAILY FOR CHOLESTE ROL ORAL DISCONT INUED 03/07/2024 [id number] MAUREEN BARROND D 2022 90 [facility] CEPHALEXIN 500MG CAP TAKE ONE CAPSULE BY MOUTH EVERY 8 HOURS FOR INFECTIO N ORAL 04/04/2024 [id number] MAMTA STERN 2023 21 [facility] EZETIMIBE 10MG TAB TAKE ONE TABLET BY MOUTH ONCE DAILY TO LOWER CHOLESTE ROL ORAL ACTIVE 06/26/2025 [id number] 4 MAUREEN BARRON PAIGE D 2023 90 [facility] EZETIMIBE 10MG TAB TAKE ONE TABLET BY MOUTH ONCE DAILY TO LOWER CHOLESTE ROL ORAL DISCONT INUED 06/19/2024 [id number] 4 MOHAMUD ARGUETA AV 2022 90 [facility] FLUTICASONE 250MCG/SALM ETEROL 50MCG INHL,ORAL,D ISKUS,60 INHALE 1 PUFF BY MOUTH TWICE DAILY - RINSE MOUTH AFTER USE RESPIR ATORY (INHAL ATION) 03/07/2024 [id number] 3 MAUREEN BARRON D 2022 3 [facility] FLUTICASONE PROPIONATE 50MCG/SPRAY SOLN,NASAL, 16GM INSTILL 1 SPRAY INTO EACH NOSTRIL ONCE DAILY NEEDED FOR NASAL IRRITATI ON/INFLA MMATION NASAL 04/15/2024 [id number] MAUREEN BARRON PAIGE D 2022 1 [facility] HYDROCHLORO THIAZIDE 25MG TAB TAKE ONE TABLET BY MOUTH ONCE DAILY TO PREVENT FLUID/CO NTROL BLOOD PRESSURE ORAL DISCONT INUED 03/07/2024 [id number] MAUREEN BARRON PAIGE D 2022 90 [facility] HYDROCHLORO THIAZIDE 25MG TAB TAKE ONE TABLET BY MOUTH ONCE DAILY ORAL 06/19/2024 [id number] 4 MOHAMUD ARGUETA AV 2023 90 [facility] METOPROLOL SUCCINATE 50MG TAB,SA TAKE ONE TABLET BY MOUTH ONCE DAILY FOR BLOOD PRESSURE /HEART ORAL ACTIVE 06/26/2025 [id number] 4 MAUREEN BARRON PAIGE D 2023 90 [facility] METOPROLOL SUCCINATE 50MG TAB,SA TAKE ONE TABLET BY MOUTH ONCE DAILY FOR BLOOD PRESSURE /HEART ORAL DISCONT INUED 06/19/2024 [id number] KENDALL,MOHAMUD AV 2022 90 [facility] TRIAMCINOLO NE ACETONIDE 0.1% CREAM,TOP APPLY A MODERATE AMOUNT TOPICALL Y TWICE DAILY NEEDED FOR ITCHING TOPICA L ACTIVE 10/24/2024 [id number] 4 MAUREEN BARRON PAIGE D 2023 454 [facility] Allergies, Adverse Reactions, Alerts Combined list of allergies from Department of Defense and Veterans Affairs facilities. It does not include entries that were removed or entered in error. Substance Category Reaction Severity Reaction type Status Date Reported Comments Source LIDOCAINE Propensity to adverse reactions to drug (finding) Itching MODERATE active 2 [facility] NOVOCAIN Propensity to adverse reactions to drug (finding) Feeling agitated active 8 [facility] PROCAINE Propensity to adverse reactions to drug (finding) active 2 [facility] Immunizations Combined list of available immunizations from the Department of Defense and Veterans Affairs facilities. Immunization Series Date Given Administered By Site Reaction Lot Number CVX Code Drug Dining Car Conductor Status Comments Source COVID-19 (MODERNA), MRNA, LNP-S, PF, 50 MCG/0.5 ML (AGES 12+ YEARS) 7 2023 ALMA MAHER LEFT DELTO ID [id number] 312 complet ed [facility] INFLUENZA, HIGH-DOSE, TRIVALENT, PF 2023 ALMA MAHER LEFT DELTO ID [id number] 135 complet ed [facility] RSV, BIVALENT, PROTEIN SUBUNIT RSVPREF, DILUENT RECONSTITUTED , 0.5 ML, PF 1 2023 GRETCHEN ANDRADE LEFT DELTO ID [id number] 305 complet ed [facility] COVID-19 (MODERNA), MRNA, LNP-S, PF, 50 MCG/0.5 ML (AGES 12+ YEARS) 1 2023 GRETCHEN ANDRADE E LEFT DELTO ID [id number] 312 complet ed [facility] INFLUENZA, HIGH-DOSE, QUADRIVALENT 2022 JERRI SHAIKH LEFT DELTO ID [id number] 197 complet ed [facility] COVID-19 (MODERNA), MRNA, LNP-S, BIVALENT BOOSTER, PF, 50 MCG/0.5 ML OR 25MCG/0.25 ML DOSE 2021 JERRI SHAIKH ER M LEFT DELTO ID [id number] 229 complet ed [facility] INFLUENZA VACCINE, QUADRIVALENT, ADJUVANTED 2021 205 complet ed [facility] COVID-19 (MODERNA), MRNA, LNP-S, PF, 100 MCG/0.5ML DOSE OR 50 MCG/0.25ML DOSE 3 2021 207 complet ed MOD; [id number] ; 2 [facility] PNEUMOCOCCAL CONJUGATE PCV20, POLYSACCHARID E [id number] CONJUGATE, ADJUVANT, PF 2021 216 complet ed [facility] COVID-19 (MODERNA), MRNA, LNP-S, PF, 100 MCG OR 50 MCG DOSE 3 2020 207 complet ed MOD; [id number]; 2 [facility] INFLUENZA, UNSPECIFIED FORMULATION 2020 88 complet ed [facility] TDAP 2020 115 complet ed [facility] COVID-19 (MODERNA), MRNA, LNP-S, PF, 100 MCG/0.5 ML DOSE 2 2020 207 complet ed MOD; [id number]; 1 [facility] COVID-19 (MODERNA), MRNA, LNP-S, PF, 100 MCG/0.5 ML DOSE 1 2020 207 complet ed MOD; [id number]; 1 [facility] [...] DOSE SEASONAL 2017 135 complet ed Partner: [facility]. Administe red by: ARLET BOLTON (BTA=[phone] [id number]). Partner 0 Lot#: [id number] Mfr: [employer] Pasteur; Dosage: 0.5 [facility] PNEUMOCOCCAL POLYSACCHARID E PPV23 2016 33 complet ed Partner: [facility]. Administe red by: ARLET GUPTALANE CHE (MLS=[phone]). Partner 0 Lot#: [id number] Mfr: Merck; Dosage: 0.5 [facility] INFLUENZA, HIGH DOSE SEASONAL 2016 135 complet ed Partner: [facility]. Administe red by: ARLET BOLTON (LQV=[phone]). Partner 0 Lot#: [id number] Mfr: Sanofi Pasteur; Dosage: 0.5 [facility] [facility] [facility] Results Combined list of recent [...] 04, 2024 05:53 PM Reporting Lab: [address] [address] Performing Lab: [address] [address] [facility] BASIC METABOLI C PANEL (fasting ) GLUCOSE [MASS/VOLU ME] IN SERUM OR PLASMA 93 mg/dL 65 - 100 04/07 Specimen Type: SERUM No comment entered. Ordering Provider: JAMILA BARRON Report Released Date/Time: Apr 04, 2024 05:53 PM Reporting Lab: [facility] [address] Performing Lab: [facility] [address] [address] [facility] BASIC METABOLI C PANEL (fasting ) SODIUM [MOLES/VOL UME] IN SERUM OR PLASMA 139 mmol/L 135 - 145 04/07 Specimen Type: SERUM No comment entered. Ordering Provider: JAMILA BARRON Report Released Date/Time: Apr 04, 2024 05:53 PM Reporting Lab: [facility]TRN [facility] [address] Performing Lab: [facility] [address] [address] [facility]ITALRCULL[facility]ERN [facility] HOSPITALUSE [facility] BASIC METABOLI C PANEL (fasting ) POTASSIUM [MOLES/VOL UME] IN SERUM OR PLASMA 3.9 mmol/L 3.5 - 5.0 04/07 Specimen Type: SERUM No comment entered. Ordering Provider: JAMILA BARRON Report Released Date/Time: Apr 04, 2024 05:53 PM Reporting Lab: [facility] [address] [address] Performing Lab: [facility]ITAL[facility]ERN [address] [address] [facility]ITALRC[facility]ERN [facility] BASIC METABOLI C PANEL (fasting ) CHLORIDE [MOLES/VOL UME] IN SERUM OR PLASMA 102 mmol/L 100 - 110 04/07 Specimen Type: SERUM No comment entered. Ordering Provider: JAMILA BARRON Report Released Date/Time: Apr 04, 2024 05:53 PM Reporting Lab: [facility]ITAL[facility]ERN [address] [address] Performing Lab: [facility]ITALRNOR[facility]TY HOSPITALTRN [facility]ITALUSE[address] [address] [facility]ITALRCULL[facility]ENTERN [facility]ITALUSE [facility] BASIC METABOLI C PANEL (fasting ) CARBON DIOXIDE, TOTAL [MOLES/VOL UME] IN SERUM OR PLASMA 26 meq/L 20 - 30 04/07 Specimen Type: SERUM No comment entered. Ordering Provider: JAMILA BARRON Report Released Date/Time: Apr 04, 2024 05:53 PM Reporting Lab: [facility]ITALRCULL[facility]ENTERN [address] [address] Performing Lab: [facility] [address] [address] [facility] BASIC METABOLI C PANEL (fasting ) CREATININE [MASS/VOLU ME] IN SERUM OR PLASMA 0.92 mg/dL 0.50 - 1.40 04/07 Specimen Type: SERUM No comment entered. Ordering Provider: JAMILA BARRON Report Released Date/Time: Apr 04, 2024 05:53 PM Reporting Lab: [facility]ITALRCULL[facility]ENTERN [facility] HOSPITALUSENYU [facility] [address] [address] Performing Lab: [facility]OSPITALRL TRN [facility] HOSPITALUSENYU [facility] [address] [address] [facility] BASIC METABOLI C PANEL (fasting ) GLOMERULAR FILTRATION RATE/1.73 SQ M.PREDICTE D [VOLUME RATE/AREA] IN SERUM, PLASMA OR BLOOD BY CREATININE -BASED FORMULA (CKD-EPI 2020) 82 mL/min 60 04/07 Specimen Type: SERUM No comment entered. Ordering Provider: JAMILA BARRON Report Released Date/Time: Apr 04, 2024 05:53 PM Reporting Lab: [facility]ITALRCULL[facility] CENTERN [address] [address] Performing Lab: [facility] [address] [address] [facility] CBC AND DIFF (AUTO) LEUKOCYTES [#/VOLUME] IN BLOOD BY AUTOMATED COUNT 7.77 10*3/uL 4.50 - 11.00 04/07 Specimen Type: BLOOD No comment entered. Ordering Provider: JAMILA BARRON Report Released Date/Time: Apr 04, 2024 05:53 PM Reporting Lab: [facility]ITALRCULL[facility]ICAL CENTERN [facility]ITALUSE[address] [address] Performing Lab: [facility]ITALRCULL[facility] CENTERN [facility]ITALUSE[address] [address] [facility]N [facility] CBC AND DIFF (AUTO) ERYTHROCYT ES [#/VOLUME] IN BLOOD BY AUTOMATED COUNT 4.29 10*6/uL 4.23 - 5.66 04/07 Specimen Type: BLOOD No comment entered. Ordering Provider: JAMILA BARRON Report Released Date/Time: Apr 04, 2024 05:53 PM Reporting Lab: [facility] [address] [address] Performing Lab: [facility] [address] [address] [facility] CBC AND DIFF (AUTO) HEMOGLOBIN [MASS/VOLU ME] IN BLOOD 14.2 g/dL 12.8 - 17 04/07 Specimen Type: BLOOD No comment entered. Ordering Provider: JAMILA BARRON Report Released Date/Time: Apr 04, 2024 05:53 PM Reporting Lab: [facility] [place] [facility] [address] [address] Performing Lab: [facility] [place] [facility] [address] [address] [facility] CBC AND DIFF (AUTO) HEMATOCRIT [VOLUME FRACTION] OF BLOOD BY AUTOMATED COUNT 41.1 39.2 - 50.4 04/07 Specimen Type: BLOOD No comment entered. Ordering Provider: JAMILA BARRON Report Released Date/Time: Apr 04, 2024 05:53 PM Reporting Lab: [facility] [place] [facility] [address] [address] Performing Lab: [facility] [place] [facility] [address] [address] [facility] CBC AND DIFF (AUTO) MCV [ENTITIC VOLUME] BY AUTOMATED COUNT 95.8 fL 82 - 99 04/07 Specimen Type: BLOOD No comment entered. Ordering Provider: JAMILA BARRON Report Released Date/Time: Apr 04, 2024 05:53 PM Reporting Lab: [facility] [place] [facility] [address] [address] Performing Lab: [facility] [place] [facility] [address] [address] [facility] CBC AND DIFF (AUTO) MCHC [MASS/VOLU ME] BY AUTOMATED COUNT 34.5 g/dL 30.8 - 35.1 04/07 Specimen Type: BLOOD No comment entered. Ordering Provider: JAMILA BARRON Report Released Date/Time: Apr 04, 2024 05:53 PM Reporting Lab: [facility] [address] [facility] [facility] [address] Performing Lab: [facility] [place] [facility] [address] [address] [facility] CBC AND DIFF (AUTO) PLATELETS [#/VOLUME] IN BLOOD BY AUTOMATED COUNT 184 10*3/uL 140 - 360 04/07 Specimen Type: BLOOD No comment entered. Ordering Provider: JAMILA BARRON Report Released Date/Time: Apr 04, 2024 05:53 PM Reporting Lab: [facility] [place] [facility] [address] [address] Performing Lab: [facility] [place] [facility] [address] [address] [facility] CBC AND DIFF (AUTO) ERYTHROCYT E DISTRIBUTI ON WIDTH [RATIO] BY AUTOMATED COUNT 13.1 12.0 - 16.0 04/07 Specimen Type: BLOOD No comment entered. Ordering Provider: JAMILA BARRON Report Released Date/Time: Apr 04, 2024 05:53 PM Reporting Lab: [facility] [place] [facility] [address] [facility] [address] Performing Lab: [facility] [place] [facility] [address] [address] [facility] CBC AND DIFF (AUTO) MONOCYTES [#/VOLUME] IN BLOOD BY AUTOMATED COUNT 0.98 10*3/uL 0.30 - 1.10 04/07 Specimen Type: BLOOD No comment entered. Ordering Provider: JAMILA BARRON Report Released Date/Time: Apr 04, 2024 05:53 PM Reporting Lab: [facility] [place] [facility] [address] [facility] [address] Performing Lab: [facility] [place] [facility] [address] [address] [facility] CBC AND DIFF (AUTO) MCH [ENTITIC MASS] BY AUTOMATED COUNT 33.1 pg 26.2 - 32.6 04/07 H Specimen Type: BLOOD No comment entered. Ordering Provider: JAMILA BARRON Report Released Date/Time: Apr 04, 2024 05:53 PM Reporting Lab: [facility] [place] [facility] [address] [address] Performing Lab: [facility] [place] [facility] [address] [facility] [address] [facility] CBC AND DIFF (AUTO) NEUTROPHIL S/100 LEUKOCYTES IN BLOOD BY AUTOMATED COUNT 52.3 43.7 - 75.8 04/07 Specimen Type: BLOOD No comment entered. Ordering Provider: JAMILA BARRON Report Released Date/Time: Apr 04, 2024 05:53 PM Reporting Lab: [facility] [place] [address] [address] Performing Lab: [facility] [address] [address] [facility] CBC AND DIFF (AUTO) LYMPHOCYTE S/100 LEUKOCYTES IN BLOOD BY AUTOMATED COUNT 31.7 14.0 - 42.3 04/07 Specimen Type: BLOOD No comment entered. Ordering Provider: JAMILA BARRON Report Released Date/Time: Apr 04, 2024 05:53 PM Reporting Lab: [facility] [address] [address] Performing Lab: [facility] [address] [address] [facility] CBC AND DIFF (AUTO) MONOCYTES/ 100 LEUKOCYTES IN BLOOD BY AUTOMATED COUNT 12.6 5.1 - 13.7 04/07 Specimen Type: BLOOD No comment entered. Ordering Provider: JAMILA BARRON Report Released Date/Time: Apr 04, 2024 05:53 PM Reporting Lab: [facility] [place] [address] [address] Performing Lab: [facility] [address] [facility] [address] [facility] [facility] CBC AND DIFF (AUTO) EOSINOPHIL S/100 LEUKOCYTES IN BLOOD BY AUTOMATED COUNT 2.3 0.4 - 6.8 04/07 Specimen Type: BLOOD No comment entered. Ordering Provider: JAMILA BARRON Report Released Date/Time: Apr 04, 2024 05:53 PM Reporting Lab: [facility] [place] [facility] [address] [address] Performing Lab: [facility] [place] [facility] [address] [address] [facility] [facility] CBC AND DIFF (AUTO) BASOPHILS/ 100 LEUKOCYTES IN BLOOD BY AUTOMATED COUNT 0.6 0.1 - 2.0 04/07 Specimen Type: BLOOD No comment entered. Ordering Provider: JAMILA BARRON Report Released Date/Time: Apr 04, 2024 05:53 PM Reporting Lab: [facility] [place] [address] [address] Performing Lab: [facility] [place] [address] [address] [facility] [place] [facility] CBC AND DIFF (AUTO) NEUTROPHIL S [#/VOLUME] IN BLOOD BY AUTOMATED COUNT 4.06 10*3/uL 2.20 - 7.60 04/07 Specimen Type: BLOOD No comment entered. Ordering Provider: JAMILA BARRON Report Released Date/Time: Apr 04, 2024 05:53 PM Reporting Lab: [facility] [place] [facility] [address] [address] Performing Lab: [facility] [place] [address] [address] [facility] [facility] CBC AND DIFF (AUTO) LYMPHOCYTE S [#/VOLUME] IN BLOOD BY AUTOMATED COUNT 2.46 10*3/uL 1.00 - 3.20 04/07 Specimen Type: BLOOD No comment entered. Ordering Provider: JAMILA BARRON Report Released Date/Time: Apr 04, 2024 05:53 PM Reporting Lab: [facility] [place] [facility] [address] [facility] [address] Performing Lab: [facility] [place] [facility] [address] [facility] [address] [address] [facility] CBC AND DIFF (AUTO) EOSINOPHIL S [#/VOLUME] IN BLOOD BY AUTOMATED COUNT 0.18 10*3/uL 0.03 - 0.44 04/07 Specimen Type: BLOOD No comment entered. Ordering Provider: JAMILA BARRON Report Released Date/Time: Apr 04, 2024 05:53 PM Reporting Lab: [facility] [place] [facility] [address] [facility] [address] Performing Lab: [facility] [place] [address] [address] [facility] [place] [facility] CBC AND DIFF (AUTO) BASOPHILS [#/VOLUME] IN BLOOD BY AUTOMATED COUNT 0.05 10*3/uL 0.01 - 0.13 04/07 Specimen Type: BLOOD No comment entered. Ordering Provider: JAMILA BARRON Report Released Date/Time: Apr 04, 2024 05:53 PM Reporting Lab: [facility] [place] [address] [address] Performing Lab: [facility] [place] [address] [address] [facility] CBC AND DIFF (AUTO) IMMATURE GRANULOCYT ES/100 LEUKOCYTES IN BLOOD BY AUTOMATED COUNT 0.5 0.0 - 0.7 04/07 Specimen Type: BLOOD No comment entered. Ordering Provider: JAMILA BARRON Report Released Date/Time: Apr 04, 2024 05:53 PM Reporting Lab: [facility] [place] [address] [address] Performing Lab: [facility] [place] [address] [address] [facility] [place] [facility] CBC AND DIFF (AUTO) IMMATURE GRANULOCYT ES [#/VOLUME] IN BLOOD 0.04 10*3/uL 0.00 - 0.06 04/07 Specimen Type: BLOOD No comment entered. Ordering Provider: JAMILA BARRON Report Released Date/Time: Apr 04, 2024 05:53 PM Reporting Lab: [facility] [place] [facility] [address] [address] Performing Lab: [facility] [place] [facility] [address] [facility] [address] [facility] [facility] CBC AND DIFF (AUTO) NRBC % 0.0 0.0 - 0.0 04/07 Specimen Type: BLOOD No comment entered. Ordering Provider: JAMILA BARRON Report Released Date/Time: Apr 04, 2024 05:53 PM Reporting Lab: [facility] [place] [facility] [address] [address] Performing Lab: [facility] [place] [address] [address] [facility] CBC AND DIFF (AUTO) NRBC, ABS 0.00 10*3/uL 0.00 - 0.00 04/07 Specimen Type: BLOOD No comment entered. Ordering Provider: JAMILA BARRON Report Released Date/Time: Apr 04, 2024 05:53 PM Reporting Lab: [facility] [place] [address] [address] Performing Lab: [facility] [place] [address] [address] [facility] LIPID PANEL FASTING CHOLESTERO L [MASS/VOLU ME] IN SERUM OR PLASMA 139 mg/dL 04/07 Specimen Type: SERUM No comment entered. Ordering Provider: JAMILA BARRON Report Released Date/Time: Apr 04, 2024 05:53 PM Reporting Lab: [facility] [place] [facility] [address] [address] Performing Lab: [facility] [place] [address] [address] [facility] [place] [facility] LIPID PANEL FASTING TRIGLYCERI DE [MASS/VOLU ME] IN SERUM OR PLASMA 136 mg/dL 0 - 150 04/07 Specimen Type: SERUM No comment entered. Ordering Provider: JAMILA BARRON Report Released Date/Time: Apr 04, 2024 05:53 PM Reporting Lab: [facility] [place] [facility] [address] [facility] [address] Performing Lab: [facility] [place] [facility] [address] [facility] [address] [facility] [place] [facility] LIPID PANEL FASTING CHOLESTERO L IN LDL [MASS/VOLU ME] IN SERUM OR PLASMA BY CALCULAMARCIE N 72 mg/dL 0 - 129 04/07 Specimen Type: SERUM No comment entered. Ordering Provider: JAMILA BARRON Report Released Date/Time: Apr 04, 2024 05:53 PM Reporting Lab: [facility] [place] [facility] [address] [facility] [address] Performing Lab: [facility] [place] [address] [address] [facility] [place] [facility] LIPID PANEL FASTING CHOLESTERO L.TOTAL/CH OLESTEROL IN HDL [MASS RATIO] IN SERUM OR PLASMA 3.5 04/07 Specimen Type: SERUM No comment entered. Ordering Provider: JAMILA BARRON Report Released Date/Time: Apr 04, 2024 05:53 PM Reporting Lab: [facility] [place] [facility] [address] [address] [address] Performing Lab: [facility] [place] [facility] [address] [facility] [address] [address] [facility] [place] [facility] LIPID PANEL FASTING CHOLESTERO L IN HDL [MASS/VOLU ME] IN SERUM OR PLASMA 40 mg/dL 40 - 60 04/07 Specimen Type: SERUM No comment entered. Ordering Provider: JAMILA BARRON Report Released Date/Time: Apr 04, 2024 05:53 PM Reporting Lab: [facility] [place] [facility] [address] [address] Performing Lab: [facility] [place] [facility] [address] [facility] [address] [facility] [place] [facility] LIVER FUNCTION PROTEIN [MASS/VOLU ME] IN SERUM OR PLASMA 6.8 g/dL 6.0 - 8.3 04/07 Specimen Type: SERUM No comment entered. Ordering Provider: JAMILA BARRON Report Released Date/Time: Apr 04, 2024 05:53 PM Reporting Lab: [facility] [place] [facility] [address] [address] Performing Lab: [facility] [place] [facility] [address] [facility] [address] [facility] LIVER FUNCTION ALBUMIN [MASS/VOLU ME] IN SERUM OR PLASMA 4.0 g/dL 3.5 - 5.0 04/07 Specimen Type: SERUM No comment entered. Ordering Provider: JAMILA BARRON Report Released Date/Time: Apr 04, 2024 05:53 PM Reporting Lab: [facility] [address] [address] Performing Lab: [facility] [place] [address] [address] [facility] LIVER FUNCTION ALKALINE PHOSPHATAS E [ENZYMATIC ACTIVITY/V OLUME] IN SERUM OR PLASMA 118 U/L 40 - 150 04/07 Specimen Type: SERUM No comment entered. Ordering Provider: JAMILA BARRON Report Released Date/Time: Apr 04, 2024 05:53 PM Reporting Lab: [facility] [place] [place] [address] [address] Performing Lab: [facility] [place] [place] [address] [address] [facility] LIVER FUNCTION ASPARTATE AMINOTRANS FERASE [ENZYMATIC ACTIVITY/V OLUME] IN SERUM OR PLASMA 30 U/L 5 - 34 04/07 Specimen Type: SERUM No comment entered. Ordering Provider: JAMILA BARRON Report Released Date/Time: Apr 04, 2024 05:53 PM Reporting Lab: [facility] [place] [address] [address] Performing Lab: [facility] [place] [place] [address] [place] [address] [facility] LIVER FUNCTION ALANINE AMINOTRANS FERASE [ENZYMATIC ACTIVITY/V OLUME] IN SERUM OR PLASMA 23 U/L 04/07 Specimen Type: SERUM No comment entered. Ordering Provider: JAMILA BARRON Report Released Date/Time: Apr 04, 2024 05:53 PM Reporting Lab: [facility] [place] [place] [address] [address] Performing Lab: [facility] [place] [address] [address] [facility] [place] [facility] LIVER FUNCTION BILIRUBIN. TOTAL [MASS/VOLU ME] IN SERUM OR PLASMA 1.0 mg/dL 0.2 - 1.2 04/07 Specimen Type: SERUM No comment entered. Ordering Provider: JAMILA BARRON Report Released Date/Time: Apr 04, 2024 05:53 PM Reporting Lab: [facility] [place] [address] [address] Performing Lab: [facility] [place] [address] [address] [facility] [place] [facility] TSH THYROTROPI N [UNITS/VOL UME] IN SERUM OR PLASMA 2.34 u[IU]/mL 0.35 - 5.00 04/07 Specimen Type: SERUM No comment entered. Ordering Provider: JAMILA BARRON Report Released Date/Time: Apr 04, 2024 05:53 PM Reporting Lab: [facility] [place] [place] [address] [address] Performing Lab: [facility] [place] [place] [address] [address] [facility] [place] [facility] URINALYS IS CLEAN CATCH COLOR OF URINE Yellow 04/07 Specimen Type: URINE Comment: If Glucose = >500 and Ketones are positive, please alert the Physician. Ordering Provider: JAMILA BARRON Report Released Date/Time: Apr 04, 2024 05:53 PM Reporting Lab: [facility] [place] [address] [address] Performing Lab[facility] [place] [facility] [address] [address] [facility] [place] [facility] URINALYS IS CLEAN CATCH APPEARANCE OF URINE Clear 04/07 Specimen Type: URINE Comment: If Glucose = >500 and Ketones are positive, please alert the Physician. Ordering Provider: JAMILA BARRON Report Released Date/Time: Apr 04, 2024 05:53 PM Reporting Lab: [facility] [place] [facility] [address] [facility] [address] Performing Lab: [facility] [place] [facility] [address] [facility] [address] [facility] [place] [facility] URINALYS IS CLEAN CATCH GLUCOSE [MASS/VOLU ME] IN URINE Normalmg /dL 04/07 Specimen Type: URINE Comment: If Glucose = >500 and Ketones are positive, please alert the Physician. Ordering Provider: JAMILA BARRON Report Released Date/Time: Apr 04, 2024 05:53 PM Reporting Lab: [facility] [place] [facility] [address] [facility] [address] Performing Lab: [facility] [place] [facility] [address] [facility] [address] [facility] [place] [facility] URINALYS IS CLEAN CATCH KETONES [MASS/VOLU ME] IN URINE BY TEST STRIP NEGATIVE mg/dL 04/07 Specimen Type: URINE Comment: If Glucose = >500 and Ketones are positive, please alert the Physician. Ordering Provider: JAMILA BARRON Report Released Date/Time: Apr 04, 2024 05:53 PM Reporting Lab: [facility] [place] [facility] [address] [facility] [address] Performing Lab: [facility] [place] [facility] [address] [facility] [facility] [address] [facility] [place] [facility] URINALYS IS CLEAN CATCH ERYTHROCYT ES [PRESENCE] IN URINE SEDIMENT BY LIGHT MICROSCOPY NEGATIVE mg/dL 04/07 Specimen Type: URINE Comment: If Glucose = >500 and Ketones are positive, please alert the Physician. Ordering Provider: JAMILA BARRON Report Released Date/Time: Apr 04, 2024 05:53 PM Reporting Lab: [facility] [place] [facility] [address] [address] Performing Lab: [facility] [place] [facility] [address] [address] [facility] [place] [facility] URINALYS IS CLEAN CATCH PROTEIN [MASS/VOLU ME] IN URINE BY TEST STRIP 10 mg/dL 04/07 Specimen Type: URINE Comment: If Glucose = >500 and Ketones are positive, please alert the Physician. Ordering Provider: JAMILA BARRON Report Released Date/Time: Apr 04, 2024 05:53 PM Reporting Lab: [facility] [place] [facility] [address] [address] Performing Lab: [facility] [place] [facility] [address] [facility] [address] [address] [facility] [place] [facility] URINALYS IS CLEAN CATCH NITRITE [PRESENCE] IN URINE NEGATIVE mg/dL 04/07 Specimen Type: URINE Comment: If Glucose = >500 and Ketones are positive, please alert the Physician. Ordering Provider: JAMILA BARRON Report Released Date/Time: Apr 04, 2024 05:53 PM Reporting Lab: [facility] [place] [place] [facility] [address] [facility] [address] Performing Lab: [facility] [place] [facility] [address] [address] [facility] [place] [facility] URINALYS IS CLEAN CATCH BILIRUBIN. TOTAL [PRESENCE] IN URINE NEGATIVE mg/dL 04/07 Specimen Type: URINE Comment: If Glucose = >500 and Ketones are positive, please alert the Physician. Ordering Provider: JAMILA BARRON Report Released Date/Time: Apr 04, 2024 05:53 PM Reporting Lab: [facility] [place] [facility] [address] [facility] [address] Performing Lab: [facility] [place] [facility] [address] [address] [facility] [place] [facility] URINALYS IS CLEAN CATCH SPECIFIC GRAVITY OF URINE BY REFRACTOME TRY 1.024 1.016 - 1.022 04/07 H Specimen Type: URINE Comment: If Glucose = >500 and Ketones are positive, please alert the Physician. Ordering Provider: JAMILA BARRON Report Released Date/Time: Apr 04, 2024 05:53 PM Reporting Lab: [facility] [place] [facility] [address] [address] Performing Lab: [facility] [place] [facility] [address] [address] [facility] [place] [facility] URINALYS IS CLEAN CATCH PH OF URINE BY TEST STRIP 7.0 5.0 - 9.0 04/07 Specimen Type: URINE Comment: If Glucose = >500 and Ketones are positive, please alert the Physician. Ordering Provider: JAMILA BARRON Report Released Date/Time: Apr 04, 2024 05:53 PM Reporting Lab: [facility] [place] [facility] [address] [address] Performing Lab: [facility] [place] [facility] [address] [address] [facility] [place] [facility] URINALYS IS CLEAN CATCH UROBILINOG EN [MASS/VOLU ME] IN URINE BY TEST STRIP Normalmg /dL <2.0 - 2.0 04/07 Specimen Type: URINE Comment: If Glucose = >500 and Ketones are positive, please alert the Physician. Ordering Provider: JAMILA BARRON Report Released Date/Time: Apr 04, 2024 05:53 PM Reporting Lab: [facility] [place] [facility] [address] [address] Performing Lab: [facility] [place] [facility] [address] [address] [facility] [place] [facility] URINALYS IS CLEAN CATCH LEUKOCYTE ESTERASE [PRESENCE] IN URINE BY TEST STRIP NEGATIVE 04/07 Specimen Type: URINE Comment: If Glucose = >500 and Ketones are positive, please alert the Physician. Ordering Provider: JAMILA BARRON Report Released Date/Time: Apr 04, 2024 05:53 PM Reporting Lab: [facility] [place] [facility] [address] [address] Performing Lab: [facility] [place] [facility] [address] [address] [facility] [place] [facility] BASIC METABOLI C PANEL (fasting ) UREA NITROGEN [MASS/VOLU ME] IN SERUM OR PLASMA 16 mg/dL 7 - 25 10/07 Specimen Type: SERUM No comment entered. Ordering Provider: JAMILA BARRON Report Released Date/Time: Oct 05, 2023 11:58 PM Reporting Lab: [facility] [place] [facility] [address] [address] Performing Lab: [facility] [place] [facility] [address] [address] [facility] [place] [facility] BASIC METABOLI C PANEL (fasting ) GLUCOSE [MASS/VOLU ME] IN SERUM OR PLASMA 102 mg/dL 65 - 100 10/07 H Specimen Type: SERUM No comment entered. Ordering Provider: JAMILA BARRON Report Released Date/Time: Oct 05, 2023 11:58 PM Reporting Lab: [facility] [place] [facility] [address] [address] Performing Lab: [facility] [place] [facility] [address] [address] [facility] [place] [facility] BASIC METABOLI C PANEL (fasting ) SODIUM [MOLES/VOL UME] IN SERUM OR PLASMA 143 mmol/L 135 - 145 10/07 Specimen Type: SERUM No comment entered. Ordering Provider: JAMILA BARRON Report Released Date/Time: Oct 05, 2023 11:58 PM Reporting Lab: [facility] [place] [place] [facility] [address] [address] Performing Lab: [facility] [place] [facility] [address] [address] [facility] [place] [facility] BASIC METABOLI C PANEL (fasting ) POTASSIUM [MOLES/VOL UME] IN SERUM OR PLASMA 4.4 mmol/L 3.5 - 5.0 10/07 Specimen Type: SERUM No comment entered. Ordering Provider: JAMILA BARRON Report Released Date/Time: Oct 05, 2023 11:58 PM Reporting Lab: [facility] [place] [facility] [address] [address] Performing Lab: [facility] [address] [address] [facility] [place] [facility] BASIC METABOLI C PANEL (fasting ) CHLORIDE [MOLES/VOL UME] IN SERUM OR PLASMA 106 mmol/L 100 - 110 10/07 Specimen Type: SERUM No comment entered. Ordering Provider: JAMILA BARRON Report Released Date/Time: Oct 05, 2023 11:58 PM Reporting Lab: [facility] [address] [address] Performing Lab: [facility] [address] [address] [facility] BASIC METABOLI C PANEL (fasting ) CARBON DIOXIDE, TOTAL [MOLES/VOL UME] IN SERUM OR PLASMA 26 meq/L 20 - 30 10/07 Specimen Type: SERUM No comment entered. Ordering Provider: JAMILA BARRON Report Released Date/Time: Oct 05, 2023 11:58 PM Reporting Lab: [facility] [address] Performing Lab: [facility] [address] [address] [facility] BASIC METABOLI C PANEL (fasting ) CREATININE [MASS/VOLU ME] IN SERUM OR PLASMA 1.01 mg/dL 0.50 - 1.40 10/07 Specimen Type: SERUM No comment entered. Ordering Provider: JAMILA BARRON Report Released Date/Time: Oct 05, 2023 11:58 PM Reporting Lab: [facility] [address] Performing Lab: [facility] [address] [address] [facility] HOSPITALTRN [place] [facility] BASIC METABOLI C PANEL (fasting ) GLOMERULAR FILTRATION RATE/1.73 SQ M.PREDICTE D [VOLUME RATE/AREA] IN SERUM, PLASMA OR BLOOD BY CREATININE -BASED FORMULA (CKD-EPI 2020) 73 mL/min 60 10/07 Specimen Type: SERUM No comment entered. Ordering Provider: JAMILA BARRON Report Released Date/Time: Oct 05, 2023 11:58 PM Reporting Lab: [facility] [place] [address] [address] Performing Lab: [facility]ITALRNOR[facility] HOSPITALTRN [facility] [address] [address] [facility] CBC AND DIFF (AUTO) LEUKOCYTES [#/VOLUME] IN BLOOD BY AUTOMATED COUNT 7.99 10*3/uL 4.50 - 11.00 10/07 Specimen Type: BLOOD No comment entered. Ordering Provider: JAMILA BARRON Report Released Date/Time: Oct 05, 2023 11:58 PM Reporting Lab: [facility] [place] [facility] [address] [address] Performing Lab: [facility] [place] [facility] [address] [address] [facility] CBC AND DIFF (AUTO) ERYTHROCYT ES [#/VOLUME] IN BLOOD BY AUTOMATED COUNT 4.47 10*6/uL 4.23 - 5.66 10/07 Specimen Type: BLOOD No comment entered. Ordering Provider: JAMILA BARRON Report Released Date/Time: Oct 05, 2023 11:58 PM Reporting Lab: [facility] [place] [address] [address] Performing Lab: [facility]ITALR[facility]PITALTRN [facility] [address] [address] [facility] CBC AND DIFF (AUTO) HEMOGLOBIN [MASS/VOLU ME] IN BLOOD 14.6 g/dL 12.8 - 17 10/07 Specimen Type: BLOOD No comment entered. Ordering Provider: JAMILA BARRON Report Released Date/Time: Oct 05, 2023 11:58 PM Reporting Lab: [facility] [place] [facility] [address] [address] Performing Lab: [facility] [facility] [address] [facility] [address] [facility] [place] [facility] CBC AND DIFF (AUTO) HEMATOCRIT [VOLUME FRACTION] OF BLOOD BY AUTOMATED COUNT 42.7 39.2 - 50.4 10/07 Specimen Type: BLOOD No comment entered. Ordering Provider: JAMILA BARRON Report Released Date/Time: Oct 05, 2023 11:58 PM Reporting Lab: [facility] [place] [facility] [address] [facility] [address] Performing Lab: [facility] [place] [facility] [address] [facility] [address] [facility] [place] [facility] CBC AND DIFF (AUTO) MCV [ENTITIC VOLUME] BY AUTOMATED COUNT 95.5 fL 82 - 99 10/07 Specimen Type: BLOOD No comment entered. Ordering Provider: JAMILA BARRON Report Released Date/Time: Oct 05, 2023 11:58 PM Reporting Lab: [facility] [place] [facility] [address] [facility] [address] Performing Lab: [facility] [place] [facility] [address] [facility] [address] [facility] [place] [facility] CBC AND DIFF (AUTO) MCHC [MASS/VOLU ME] BY AUTOMATED COUNT 34.2 g/dL 30.8 - 35.1 10/07 Specimen Type: BLOOD No comment entered. Ordering Provider: JAMILA BARRON Report Released Date/Time: Oct 05, 2023 11:58 PM Reporting Lab: [facility] [place] [facility] [address] [facility] [address] Performing Lab: [facility] [place] [facility] [address] [facility] [address] [facility] [place] [place] [facility] CBC AND DIFF (AUTO) PLATELETS [#/VOLUME] IN BLOOD BY AUTOMATED COUNT 126 10*3/uL 140 - 360 10/07 L Specimen Type: BLOOD No comment entered. Ordering Provider: JAMILA BARRON Report Released Date/Time: Oct 05, 2023 11:58 PM Reporting Lab: [facility] [place] [facility] [address] [address] Performing Lab: [facility] [place] [facility] [address] [address] [facility] [place] [facility] CBC AND DIFF (AUTO) ERYTHROCYT E DISTRIBUTI ON WIDTH [RATIO] BY AUTOMATED COUNT 12.9 12.0 - 16.0 10/07 Specimen Type: BLOOD No comment entered. Ordering Provider: JAMILA BARRON Report Released Date/Time: Oct 05, 2023 11:58 PM Reporting Lab: [facility] [place] [address] [address] Performing Lab: [facility] [place] [address] [address] [facility] [place] [facility] CBC AND DIFF (AUTO) MONOCYTES [#/VOLUME] IN BLOOD BY AUTOMATED COUNT 0.79 10*3/uL 0.30 - 1.10 10/07 Specimen Type: BLOOD No comment entered. Ordering Provider: JAMILA BARRON Report Released Date/Time: Oct 05, 2023 11:58 PM Reporting Lab: [facility] [facility] [address] [facility] [address] Performing Lab: [facility] [place] [address] [address] [facility] [place] [place] [facility] CBC AND DIFF (AUTO) MCH [ENTITIC MASS] BY AUTOMATED COUNT 32.7 pg 26.2 - 32.6 10/07 H Specimen Type: BLOOD No comment entered. Ordering Provider: JAMILA BARRON Report Released Date/Time: Oct 05, 2023 11:58 PM Reporting Lab: [facility] [place] [facility] [address] [facility] [address] Performing Lab: [facility] [place] [address] [address] [facility] [place] [facility] CBC AND DIFF (AUTO) NEUTROPHIL S/100 LEUKOCYTES IN BLOOD BY AUTOMATED COUNT 54.5 43.7 - 75.8 10/07 Specimen Type: BLOOD No comment entered. Ordering Provider: JAMILA BARRON Report Released Date/Time: Oct 05, 2023 11:58 PM Reporting Lab: [facility] [place] [facility] [address] [facility] [address] Performing Lab: [facility] [place] [facility] [address] [facility] [address] [facility] [place] CBC AND DIFF (AUTO) LYMPHOCYTE S/100 LEUKOCYTES IN BLOOD BY AUTOMATED COUNT 33.3 14.0 - 42.3 10/07 Specimen Type: BLOOD No comment entered. Ordering Provider: JAMILA BARRON Report Released Date/Time: Oct 05, 2023 11:58 PM Reporting Lab: [facility] [place] [address] [address] Performing Lab: [facility] [place] [address] [address] [facility] [place] CBC AND DIFF (AUTO) MONOCYTES/ 100 LEUKOCYTES IN BLOOD BY AUTOMATED COUNT 9.9 5.1 - 13.7 10/07 Specimen Type: BLOOD No comment entered. Ordering Provider: JAMILA BARRON Report Released Date/Time: Oct 05, 2023 11:58 PM Reporting Lab: [facility] [place] [address] [address] Performing Lab: [facility] [place] [facility] [address] [facility] [address] [facility] [place] [facility] CBC AND DIFF (AUTO) EOSINOPHIL S/100 LEUKOCYTES IN BLOOD BY AUTOMATED COUNT 1.4 0.4 - 6.8 10/07 Specimen Type: BLOOD No comment entered. Ordering Provider: JAMILA BARRON Report Released Date/Time: Oct 05, 2023 11:58 PM Reporting Lab: [facility] [place] [address] [address] Performing Lab: [facility] [place] [address] [address] [facility] [place] [facility] CBC AND DIFF (AUTO) BASOPHILS/ 100 LEUKOCYTES IN BLOOD BY AUTOMATED COUNT 0.6 0.1 - 2.0 10/07 Specimen Type: BLOOD No comment entered. Ordering Provider: JAMILA BARRON Report Released Date/Time: Oct 05, 2023 11:58 PM Reporting Lab: [facility] [place] [facility] [address] [place] [address] Performing Lab: [facility] [place] [facility] [address] [facility] [address] [facility] [place] [facility] CBC AND DIFF (AUTO) NEUTROPHIL S [#/VOLUME] IN BLOOD BY AUTOMATED COUNT 4.36 10*3/uL 2.20 - 7.60 10/07 Specimen Type: BLOOD No comment entered. Ordering Provider: JAMILA BARRON Report Released Date/Time: Oct 05, 2023 11:58 PM Reporting Lab: [facility] [address] [place] [id number] Performing Lab: [facility] [address] [facility] [address] [facility] CBC AND DIFF (AUTO) LYMPHOCYTE S [#/VOLUME] IN BLOOD BY AUTOMATED COUNT 2.66 10*3/uL 1.00 - 3.20 10/07 Specimen Type: BLOOD No comment entered. Ordering Provider: JAMILA BARRON Report Released Date/Time: Oct 05, 2023 11:58 PM Reporting Lab: [facility] [address] [place] [phone] Performing Lab: [facility] [address] [place] [phone] [facility] CBC AND DIFF (AUTO) EOSINOPHIL S [#/VOLUME] IN BLOOD BY AUTOMATED COUNT 0.11 10*3/uL 0.03 - 0.44 10/07 Specimen Type: BLOOD No comment entered. Ordering Provider: JAMILA BARRON Report Released Date/Time: Oct 05, 2023 11:58 PM Reporting Lab: [facility] [address] [facility] [phone] Performing Lab: [facility] [address] [facility] [phone] [facility] CBC AND DIFF (AUTO) BASOPHILS [#/VOLUME] IN BLOOD BY AUTOMATED COUNT 0.05 10*3/uL 0.01 - 0.13 10/07 Specimen Type: BLOOD No comment entered. Ordering Provider: JAMILA BARRON Report Released Date/Time: Oct 05, 2023 11:58 PM Reporting Lab: [facility] [address] [facility] [phone] Performing Lab: [facility] [place] [facility] [address] [facility] [phone] [facility] CBC AND DIFF (AUTO) IMMATURE GRANULOCYT ES/100 LEUKOCYTES IN BLOOD BY AUTOMATED COUNT 0.3 0.0 - 0.7 10/07 Specimen Type: BLOOD No comment entered. Ordering Provider: JAMILA BARRON Report Released Date/Time: Oct 05, 2023 11:58 PM Reporting Lab: [facility] [place] [facility] [address] [facility] [phone] Performing Lab: [facility] [address] [phone] [facility] CBC AND DIFF (AUTO) IMMATURE GRANULOCYT ES [#/VOLUME] IN BLOOD 0.02 10*3/uL 0.00 - 0.06 10/07 Specimen Type: BLOOD No comment entered. Ordering Provider: JAMILA BARRON Report Released Date/Time: Oct 05, 2023 11:58 PM Reporting Lab: [facility] [address] [phone] Performing Lab: [facility] [address] [phone] [facility] LIPID PANEL FASTING CHOLESTERO L [MASS/VOLU ME] IN SERUM OR PLASMA 133 mg/dL 10/07 Specimen Type: SERUM No comment entered. Ordering Provider: JAMILA BARRON Report Released Date/Time: Oct 05, 2023 11:58 PM Reporting Lab: [facility] [place] [facility] [address] [address] Performing Lab: [facility] [address] [address] [facility] LIPID PANEL FASTING TRIGLYCERI DE [MASS/VOLU ME] IN SERUM OR PLASMA 98 mg/dL 0 - 150 10/07 Specimen Type: SERUM No comment entered. Ordering Provider: JAMILA BARRON Report Released Date/Time: Oct 05, 2023 11:58 PM Reporting Lab: [facility] [place] [facility] [address] [address] Performing Lab: [facility] [place] [address] [address] [facility] LIPID PANEL FASTING CHOLESTERO L IN LDL [MASS/VOLU ME] IN SERUM OR PLASMA BY CALCULATIO N 70 mg/dL 0 - 129 10/07 Specimen Type: SERUM No comment entered. Ordering Provider: JAMILA BARRON Report Released Date/Time: Oct 05, 2023 11:58 PM Reporting Lab: [facility] [place] [facility] [address] [address] Performing Lab: [facility] [place] [facility] [address] [address] [facility] LIPID PANEL FASTING CHOLESTERO L.TOTAL/CH OLESTEROL IN HDL [MASS RATIO] IN SERUM OR PLASMA 3.1 10/07 Specimen Type: SERUM No comment entered. Ordering Provider: JAMILA BARRON Report Released Date/Time: Oct 05, 2023 11:58 PM Reporting Lab: [facility] [place] [facility] [address] [address] Performing Lab: [facility] [place] [facility] [address] [address] [facility] [place] LIPID PANEL FASTING CHOLESTERO L IN HDL [MASS/VOLU ME] IN SERUM OR PLASMA 43 mg/dL 40 - 60 10/07 Specimen Type: SERUM No comment entered. Ordering Provider: JAMILA BARRON Report Released Date/Time: Oct 05, 2023 11:58 PM Reporting Lab: [facility] [place] [facility] [address] [address] Performing Lab: [facility] [place] [facility] [address] [address] [facility] LIVER FUNCTION PROTEIN [MASS/VOLU ME] IN SERUM OR PLASMA 6.6 g/dL 6.0 - 8.3 10/07 Specimen Type: SERUM No comment entered. Ordering Provider: JAMILA BARRON Report Released Date/Time: Oct 05, 2023 11:58 PM Reporting Lab: [facility] [place] [facility] [address] [address] Performing Lab: [facility] [place] [address] [address] [facility] LIVER FUNCTION ALBUMIN [MASS/VOLU ME] IN SERUM OR PLASMA 3.8 g/dL 3.5 - 5.0 10/07 Specimen Type: SERUM No comment entered. Ordering Provider: JAMILA BARRON Report Released Date/Time: Oct 05, 2023 11:58 PM Reporting Lab: [facility] [place] [facility] [address] [address] Performing Lab: [facility] [place] [facility] [address] [address] [facility] LIVER FUNCTION ALKALINE PHOSPHATAS E [ENZYMATIC ACTIVITY/V OLUME] IN SERUM OR PLASMA 103 U/L 40 - 150 10/07 Specimen Type: SERUM No comment entered. Ordering Provider: JAMILA BARRON Report Released Date/Time: Oct 05, 2023 11:58 PM Reporting Lab: [facility] [place] [facility] [address] [address] Performing Lab: [facility] [place] [facility] [address] [address] [facility] LIVER FUNCTION ASPARTATE AMINOTRANS FERASE [ENZYMATIC ACTIVITY/V OLUME] IN SERUM OR PLASMA 33 U/L 5 - 34 10/07 Specimen Type: SERUM No comment entered. Ordering Provider: JAMILA BARRON Report Released Date/Time: Oct 05, 2023 11:58 PM Reporting Lab: [facility] [place] [facility] [address] [address] Performing Lab: [facility] [place] [facility] [address] [address] [facility] [facility] LIVER FUNCTION ALANINE AMINOTRANS FERASE [ENZYMATIC ACTIVITY/V OLUME] IN SERUM OR PLASMA 29 U/L 10/07 Specimen Type: SERUM No comment entered. Ordering Provider: JAMILA BARRON Report Released Date/Time: Oct 05, 2023 11:58 PM Reporting Lab: [facility] [place] [address] [address] Performing Lab: [facility] [place] [facility] [address] [address] [facility] [place] [facility] LIVER FUNCTION BILIRUBIN. TOTAL [MASS/VOLU ME] IN SERUM OR PLASMA 0.7 mg/dL 0.2 - 1.2 10/07 Specimen Type: SERUM No comment entered. Ordering Provider: JAMILA BARRON Report Released Date/Time: Oct 05, 2023 11:58 PM Reporting Lab: [facility] [place] [address] [address] Performing Lab: [facility] [place] [address] [address] [facility] Vital Signs Combined list of inpatient and outpatient Vital Signs from Department of Defense and Veterans Affairs, ranging from 12 months to all on record, depending upon the facility. Vital Sign Value Date Comments Source SYSTOLIC BLOOD PRESSURE 162 04/13/20 24 13:23:12 [facility] [place] [facility] DIASTOLIC BLOOD PRESSURE 70 024 13:23:12 [facility] [place] [facility] PULSE OXIMETRY 96 04/13/2024 13:23:12 [...] [facility] [id number] 03/06 [facility] En[facility] [id number] 04/08 [facility] OFF[facility] O/P EST SF 10-19 MIN [id number] Diagnos is: ICD-10- CM I10 Essenti al (primar y) hyperte nsion RICO BARRON RD D 04/15 [facility] En[facility] [id number] 04/16 [facility] OFF[facility] O/P EST LOW 20-29 MIN [id number] Diagnos is: ICD-10- CM 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 RANCHO RODRIGUEZ 04/30 [facility] En[facility] [id number] 06/14 [facility] En[facility] [id number] 06/16 [facility] En[facility] [id number] 06/19 [facility] En[facility] [id number] 06/27 [facility] En[facility] [id number] 10/08 [facility] OFF[facility] O/P EST LOW 20 MIN [id number] Diagnos is: ICD-10- CM H67.3 Otitis media in disease s classif ied elsewhe re, bilater al RICO BARRON RD D 10/15 [facility] OFF/OP EST MAY X REQ PHY/QHP [id number] Diagnos is: ICD-10- CM Z23 Encount er for immuniz atdomo RICO BARRON RD D 10/15 [facility] UNLISTED SPEC DERM SVC/PX [id number] Diagnos is: ICD-10- CM Z13.89 Encount er for screeni ng for other disorde r GORDON BEAUCHAMP ICA A 10/23 [facility] OFFICE O/P EST SF 10 MIN [id number] Diagnos is: ICD-10- CM R21 Rash and other nonspec ific skin eruptio n WILEY PASTOR PH J 10/23 [facility] Out[facility] Encounter [id number] 10/23 [facility] En[facility] [id number] 10/23 [facility] En[facility] [id number] 11/20 [facility] Encounter [id number] 11/24 [facility] En[facility] [id number] 11/27 [facility] En[facility] [id number] 11/28 [facility] Encounter [id number] 11/30 [facility] UNLISTED SPEC DERM SVC/PX [id number] Diagnos is: ICD-10- CM Z13.89 Encount er for screeni ng for other disorde r GORDON BEAUCHAMP ICA A 12/04 [facility] En[facility] [id number]/04 [facility] Outpatient Encounter [id number] Diagnos is: ICD-10- CM D48.5 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 IRENA BRADFORD 12/04 [facility] En[facility] [id number]/04 [facility] En[facility] [id number] 12/04 [facility] Encounter [id number] MICHELLE FIGUEROA M 12/26 [facility] [place] [id number] Diagnos is: ICD-10- CM 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, bilater al Yossi HARRINGTON YULISA E 12/29 [facility] En[facility] [id number] 12/29 [facility] Encounter [id number] 01/05 [facility] Encounter [id number] 01/09 [facility] En[facility] [id number] 01/12 [facility]counter [id number] 01/12 [facility] Encounter [id number] 01/12 [facility] Encounter [id number] IRASEMA MONTILLA 01/13 [facility] Encounter [id number] 01/16 [facility] Encounter [id number] 01/19 [facility] Encounter [id number] 01/22 [facility] En[facility] [id number] 02/02 [facility] ORTHC/PROS TC MGMT SBSQ ENC [id number] Diagnos is: ICD-10- CM M84.472 A Patholo gical fractur e, left ankle, init encntr for fractur e Thierno HAMPTON 02/02 [facility] En[facility] [id number] 02/10 [facility] Encounter [id number] 02/13 [facility] Encounter [id number] 03/04 [facility] Encounter [id number]/04 [facility] OFF/OP EST MAY X REQ PHY/QHP [id number] Diagnos is: ICD-10- CM 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.89 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 JOSIE Duval 03/05 [facility] OFFICE O/P EST LOW 20 MIN [id number] Diagnos is: ICD-10- CM L60.1 Onychol PASCUAL Lechuga 03/05 [facility] OFF/OP EST MAY X REQ PHY/QHP [id number] Diagnos is: ICD-10- CM Z48.01 Encount er for change or removal of surgica l wound dressin KAVEH Fernandez 03/06 [facility] OFF/OP CNSLTJ NEW/EST MOD 40 [id number] Diagnos is: ICD-10- CM H90.A31 Mix cndct/s nrl hear loss,un i,r ear w rstrcd hear cntra side JOSEPHINE DAVIS R 03/24 [facility] HEARING AID EXAM BOTH EARS [id number] Diagnos is: ICD-10- CM 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 Diagnos is: ICD-10- CM I10 Essenti al (primar y) hyperte nsion RICO BARRON RD 04/13 [facility] En[facility] [id number] 1.04/14 [facility] En[facility] [id number] 04/23 [facility] Encounter [id number] 1.04/24 [facility] OFFICE O/P EST MOD 30 MIN [id number] Diagnos is: ICD-10- CM 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 RANCHO RODRIGUEZ 04/28 [facility] CONFORMITY EVALUATION [id number] Diagnos is: ICD-10- CM Z46.1 Encount er for fitting and adjustm ent of hearing aid Yossi HARRINGTON 05/05 [facility] Out[facility] Encounter [id number] 05/08 [facility] Out[facility] Encounter [id number] 06/01 [facility] Encounter [id number] 06/03 [facility] Encounter [id number] 06/06 [facility] Encounter [id number] [facility] Encounter [id number]/19 [facility] Encounter [id number] 06/25 [facility] Out[facility] Encounter [id number] 06/25 [facility] Out[facility] Encounter [id number] 06/26 [facility] Out[facility] Encounter [id number] 07/02 [facility] Encounter [id number] 07/06 [facility] Outpatient Encounter [id number] 07/14 [facility] Outpatient Encounter [id number] 07/14 [facility] Outpatient Encounter [id number] 07/20 [facility] Outpatient Encounter [id number] 08/06 [facility] [place] Social History Combined list of available smoking, tobacco, and other social history from Department of Defense and Veterans Affairs facilities. Social History Type Response Date Comment Sour e Tobacco smoking status [facility] VA-TOBACCO FORMER USER 10/16/2023 [facility] [place] [facility] History of tobacco use VA-TOBACCO QUIT 15 YRS OR MORE 10/16/2023 [facility] [place] [facility] History of tobacco use VA-TOBACCO FORMER USER 07/04/2022 [facility] [place] [facility] History of tobacco use NSG NO TOBACCO USE PAST 30 DAYS 03/27/2022 [facility] History of tobacco use NSG NO TOBACCO USE PAST 30 DAYS 03/05/2022 [facility] History of tobacco use NSG NO TOBACCO USE PAST 30 DAYS 03/02/2022 [facility] History of tobacco use VA-TOBACCO FORMER USER 06/28/2021 [facility] [place] [facility] History of tobacco use VA-TOBACCO FORMER USER 05/26/2020 [facility] [place] [facility] History of tobacco use VA-TOBACCO NEVER USED 05/23/2018 [facility] [place] [facility] Plan of Care List of future care activities from Department of Veterans Affairs facilities. Additional future care activities may be listed in the Assessment and Plan section. Date/Time Care Activity Care Activity Detail Facili ty 09/01/2024 AMBULATORY - MEDICINE [facility] 10/07/2024 AMBULATORY - MEDICINE AMBULATORY - MEDICI NE [facility] 10/28/2024 AMBULATORY - MEDICINE [facility] 07/14/2024 Consult Order [facility] ARDIOLOGY Cons Steam Cleaner's Choice [facility] Advance Directives List of completed, amended, or rescinded Advance Directives on record at Department of [facility] facilities. An actual copy of the Directive is not included. Date Advance Directive Provider Source 02/19/2022 ADVANCE DIRECTIVE JOCE CASTORENA [facility] 11/16/2020 ADVANCE DIRECTIVE BYRON BARRON [facility]
--- OUTSIDE RECORDS SUMMARY | 2024-08-24 14:49 | XMS_ITS | Encounter Summary ---
Author Organization [facility] Address [address] [place] [address] Care Team Providers Care Stage Builder Name Role Phone Adam Noonan MD Primary Care Provider Unava ilable Reason for Visit * Reason Onset Date Comments medication problems 02/16/2019 Encounter Details Date Type Department Care Team Description 02/16/2019 Telephone Pulmonology - [place] [address] [facility] [address] [place] [address] Eric Tucker MD medication problems [...] on 02/08[facility] * Telephone Encounter - Hannah Tucker - 02/16/2019 4:11 PM EDT [place] [facility] send a fax that they can't fill the prescription for ALBUTEROL SULFATE (PROAIR HFA) 108 (90 BASE) MCG/ACT Aero Soln for 11 refills It needs to be send to a local pharmacy. I call and spoke with the patient and he wants the medication to be send to [id number] - [place] - [id number] [facility] documented in this encounter Plan of Treatment Not on file documented as of this encounter Visit Diagnoses Diagnosis Simple chronic bronchitis (HCC)- Primary Simple chronic bronchitis documented in this encounter Care Teams Stage Builder Relationship Specialty Start Date End Date Adam Noonan MD PCP - General Internal Medicine 11/19/17 documented as of this encounter
--- OUTSIDE RECORDS SUMMARY | 2024-08-24 14:49 | XMS_ITS | Encounter Summary ---
Author Organization [facility] Address [address] [place] [address] Care Team Providers Care Opening Machine Cleaner Name Role Phone [place] Primary Care Provider Cecelia Granados, Pcp Primary Care Provider Adam Rothman MD Primary Care Provider Unava ilable Encounter Details Date Type Department Care Team Description 07/22/2015 [facility] Medical Records [address] [place], [place] [address] [place] [address] Social History Tobacco Use Types Packs/Day Years [...] on filedocumented in this encounter Care Teams Opening Machine Cleaner Relationship Specialty Start Date End Date [facility] [place] PCP - General Internal Medicine 07/15/11 11/14/17 Roberta, Pcp PCP - General Internal Medicine 11/15/17 11/18/17 Adam Noonan MD PCP - General Internal Medicine 11/19/17 documented as of this encounter
--- OUTSIDE RECORDS SUMMARY | 2024-08-24 14:49 | XMS_ITS | Encounter Summary ---
Author Organization [facility] Address [address] [place] [address] Care Team Providers Care Aerospace Mechanic Name Role Phone Adam Noonan MD Primary Care Provider Unava ilable Reason for Visit * Reason Onset Date Comments Medication 02/11/2018 Encounter Details Date Type Department Care Team Description 02/11/2018 Telephone Pulmonology - [place] [address] [facility] [address] [place] [address] Eric Tucker MD Medication Social [...] Primary documented in this encounter Care Teams Aerospace Mechanic Relationship Specialty Start Date End Date Adam Noonan MD PCP - General Internal Medicine 11/19/17 documented as of this encounter
== END 2024-08-24 14:24 | disposition home or self-care (01) ==
PROVIDERS: PCP Internal Medicine
DX: S82.62XD Displaced fracture of lateral malleolus of left fibula, subsequent encounter for closed fracture with routine healing (principal)
CPT/HCPCS: 99213

== ENCOUNTER → 2024-08-24 13:43 | Outpatient (BNV) | payer OTHER, SELFPAY | PROVIDERS: Visit Provider Radiology Diagnostic Radiology | DX: M25.572 Pain in left ankle and joints of left foot (principal) | CPT/HCPCS: 73610 ==

== ENCOUNTER 2024-09-04 08:04 | Outpatient (REF) | payer OTHER, SELFPAY ==
--- NOTE | ~2024-09-04 | XR_ITS ---
EXAMINATION: XR ANKLE 3 OR MORE VIEWS LEFT HISTORY: M25.572 - Pain in left ankle and joints of left foot COMPARISON: Comparison is made with the prior examination dated 08/24/2024. FINDINGS: Three views of the left ankle are submitted. The patient is again noted to be status post internal fixation of the distal fibula with a sideplate and multiple orthopedic screws. A button is again noted along the medial malleolus. Again seen is marked demineralization. There is irregularity of the tibiotalar articulation with probable slightly greater demineralization and on the prior study, compatible with septic arthritis. There is diffuse soft tissue swelling. XR/XR ankle LT min 3V IMPRESSION: Internal fixation of the left ankle as described. Findings consistent with septic arthritis, with greater demineralization and irregularity of the tibiotalar joint than on the prior study. Electronically signed by: Chuy Rosenthal MD 09/08/2024 08:23 AM PANDA
--- OUTSIDE RECORDS SUMMARY | 2024-09-04 08:09 | XMS_ITS | Patient Health Record ---
Author Organization [facility] [place] Address [address] [place] [address] Care Team Providers Care Jar Filler Name Role Phone Josue Simmons MD Primary Care Provider Lyn Aquino Unavailable [phone] Allergies Allergen (clinical drug ingredient) Drug/Non Drug [...] primary osteoarthritis of the ankle and/or foot ([id number]) Primary osteoarthrit is, right ankle and foot (M19.071) Active confirmed Encounters Encounter Location Date Provider Diagnosis [facility] [place] [address] [facility] [place] [address] 03/09/2024 Lyn Lund [facility] [address] [facility] [place] [address] 03/12/2024 Lyn Lund [facility] [address] [facility] [place] [address] 04/02/2024 Lyn Lund Plan Of Treatment Pending Test Test Name Order Date X ray : Foot, right 3V 01/20/2015 X ray : Ankle, right 3V 03/04/2017 Insurance Providers Payer Name Payer Address Payer Phone Subscriber Number Group Number Insured Name Patient Relationship to Insured Coverage Start Date Coverage End Date Medicare [employer] [address] [facility] [address] [id number] Reed Mallory Self - patient is the insured [employer] [address] [place] [address] Reed Mallory Self - patient is the [...]
--- OUTSIDE RECORDS SUMMARY | 2024-09-04 08:09 | XMS_ITS ---
Author Organization [facility] Address [address] [place] [address] Care Team Providers Care Medical Office Technology Instructor Name Role Phone Josue Simmons MD Primary Care Provider UnavailLyn Main [phone] REASON FOR VISIT 04/23/24 Encounters Encounter Location Date Provider Diagnosis [facility] [address] [place] [address] 04/02/2024 Lyn Lund Plan Of Treatment No Information Progress Notes * Reed MALLORY HDOB:1940 (83 yo M)Acc No.[id number]:04/02/2024 Patient:?Reed Mallory :1940???Age:83 Y???Sex:Male Address:[address] [place] [id number] * true * Date:? Generated for Printi philip/Ilda/eTransmitting on:?09/04/2024 08:09 AM EST
--- OUTSIDE RECORDS SUMMARY | 2024-09-04 08:09 | XMS_ITS ---
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 [facility] [place] Address [address] [place] [address] Care Team Providers Care Engineer System Administrator Name Role Phone BYRON BARRON Primary Care [...] Dec 19, 2007 MEDICAR E SUPPLEM E [id number] NYDIA HUERTA PATIENT [employer] MEDICARE SUPPLEMEN YORDAN Dec 19, 2007 MEDICAR E SUPPLEM E [id number] NYDIA HUERTA UL PATIENT [employer] [place] MEDICARE SUPPLEMEN YORDAN BANKE RS Dec 19, 2007 NONE [id number] NYDIA HUERTA PATIENT MEDICARE (WNR) MEDICARE (M) PART B Oct 13, 2006 PART B [id number] NYDIA HUERTA UL PATIENT MEDICARE (WNR) MEDICARE (M) PART B Oct 13, 2006 PART B [id number] [phone] NYDIA HUERTA PATIENT MEDICARE (WNR) MEDICARE (M) PART B Oct 13, 2006 PART B [id number] [phone] NYDIA HUERTA PATIENT MEDICARE (WNR) MEDICARE (M) PART B Oct 13, 2006 PART B [id number] NYDIA HUERTA PATIENT MEDICARE (WNR) MEDICARE (M) PART A Sep 13, 2003 PART A [id number] [id number] NYDIA HUERTA PATIENT MEDICARE (WNR) MEDICARE (M) PART A Sep 13, 2003 PART A [id number] NYDIA HUERTA PATIENT MEDICARE (WNR) MEDICARE (M) PART A Sep 13, 2003 PART A [id number] [phone] NYDIA HUERTA PATIENT MEDICARE (WNR) MEDICARE (M) PART A Sep 13, 2003 PART A [id number] NYDIA HUERTA PATIENT Selected Encounter This section includes the information on record at [place] for the Encounter. Date/Time Encounter Type Encounter Description Reason Provider Source Sep 01, 2024 11:00 AM OFFICE O/P EST MOD 30 MIN OPTOMETRY ICD-10-CM 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, hole, or pseudohole, right eye TRINITY CALDERON Aranza Encounter Template Text not used by [place] Assessments - Encounter Diagnoses This section includes the primary and secondary diagnoses documented for the Encounter. Date/Time Primary/Secondary Diagnosis Diagnosis Name Provider Source Sep 01, 2024 12:26 PM PRIMARY Macular cyst, hole, or pseudohole, right eye TRINITY CALDERON [place] [facility] [place] [facility] Sep 01, 2024 12:26 PM SECONDARY Presbyopia TRINITY CALDERON [place] [facility] [place] [facility] Sep 01, 2024 12:26 PM SECONDARY Presence of intraocular lens TRINITY CALDERON [place] [facility] [place] [facility] Sep 01, 2024 12:26 PM SECONDARY Unspecified blepharitis unspecified eye, unspecified eyelid TRINITY CALDERON [place] [facility] [place] [facility] Plan of Treatment: Future Appointments (+ 6 months) and Future Tests (+/- 45 days) The Plan of Treatment section includes future care activities for the patient from all [place] [facility] This section includes future appointments and future orders which are active, pending or scheduled. Future Appointments This section includes appointments that were scheduled to occur 6 months from the date of the Encounter, up to a maximum of 20 appointments. The data comes from all [place] treatment facilities. Appointment Date/Time Appointment Type Appointme nt Facility Name Oct 07, 2024 09:00 AM [facility]UL[facility] [place] [facility] Oct 28, 2024 08:00 AM [facility] - MEDICINE [facility] [place] [facility] Social History: [...] PM VA-TOBACCO FORMER USER [place] [facility] [place] [facility] Tobacco Use History This section includes a history of the smoking, or tobacco-related health factors, that were collected on or before the date of the Encounter. The data comes from the [place] facility where the Encounter took place. Date/Time Smoking Status/Tobacco Use Comment F acility Oct 16, 2023 01:30 PM VA-TOBACCO QUIT 15 YRS OR MORE [place] [facility] [place] [facility] Jul 04, 2022 11:00 AM VA-TOBACCO FORMER USER [place] [facility] [place] [facility] Jul [...] AM VA-TOBACCO QUIT 15 YRS OR MORE [place] [facility] [place] [facility] May 23, 2018 11:21 AM VA-TOBACCO NEVER USED [facility] Advance Directives: All historical and [...] Feb 19, 2022 ADVANCE DIRECTIVE JOCE CASTORENA [facility] November 16, 2020 ADVANCE DIRECTIVE BYRON BARRON [facility] Encounter Notes: All associated encounter notes This section contains the clinical notes associated to the Encounter. Date/Time Encounter Note(s) Provider Source Sep 01, 2024 11:44 AM OPTOMETRY NOTE: LOCAL TITLE: OPTOMETRY NOTE STANDARD TITLE: OPTOMETRY NOTE DATE OF NOTE: SEP 01, 2024@11:44 ENTRY DATE: SEP 01, 2024@11:44:20 AUTHOR: TRINITY CALDERON EXP COSIGNER: URGENCY: STATUS: COMPLETED OPTOMETRY NOTE Has ADDENDA Please assist in ordering the following Duplicate(s): OD +1.50 -1.50 X90 Add:+2.75 Pzm:0.00 Dir: Prz2:0.00 Dir2: OS +1.50 -1.00 X90 Add:+2.75 Pzm:0.00 Dir: Prz2:0.00 Dir2: FITTING INFORMATION FPD:64 NPD:61 [place]:R: L: SEG HT:R:13 L:13 Tint:None Shade:None VA Billable Items FRAME: KATERINE CIFUENTES [id number] Right Lens: POLY BIFOCAL FT28 PHOTOCHROMIC ALMEIDA 1.586 POLY Left Lens: POLY BIFOCAL FT28 PHOTOCHROMIC ALMEIDA 1.586 POLY KLEAR ANTI-REFLECTIVE COATING OD +1.50 -1.50 X90 Add:+2.75 Pzm:0.00 Dir: Prz2:0.00 Dir2: OS +1.50 -1.00 X90 Add:+2.75 Pzm:0.00 Dir: Prz2:0.00 Dir2: FITTING INFORMATION FPD:64 NPD:61 [place]:R: L: SEG HT:R:13 L:13 Tint:YELLOW Shade:1 VA Billable Items FRAME: KATERINE CIFUENTES [id number] Right Lens: POLY BIFOCAL FT28 1.586 POLY Left Lens: POLY BIFOCAL FT28 1.586 POLY SOLID TINT /tena CALDERON OD INDUSTRIAL ELECTRICAL ENGINEER Signed: 09/01/2024 12:27 Receipt Acknowledged By: 09/01/2024 15:51 /tena SANDERSON OPTOMETRY TECH 09/01/2024 ADDENDUM STATUS: COMPLETED Optometry [facility] [place] Clerk ordered patient 2 pair(s) of bifocal eyeglasses on 09/01/2024 as directed by provider. OPT HT entered consult(s) for order on behalf of provider. /eleanor/ JEANIE SANDERSON OPTOMETRY TECH Signed: 09/01/2024 15:55 TRINITY CALDERON [facility] [place] [facility] Sep 01, 2024 07:18 AM OPTOMETRY NOTE: LOCAL TITLE: OPTOMETRY NOTE STANDARD TITLE: OPTOMETRY NOTE DATE OF NOTE: SEP 01, 2024@07:18 ENTRY DATE: SEP 01, 2024@07:19:07 AUTHOR: DAVIAN JONES SCOT EXP COSIGNER: TRINITY CALDERON URGENCY: STATUS: COMPLETED OPTOMETRY NOTE Has ADDENDA Active problems - Computerized Problem List is the source for the followin. Chronic dermatitis 2. Aortic valve stenosis 3. Chest Pain ([facility] [id number]) 4. COPD - Chronic Obstructive Pulmonary Disease ([facility] [id number]) 5. HTN - Hypertension ([facility] [id number]) 6. Hypercholesterolemia ([facility] [id number]) 7. Cataract 8. Asbestosis Active Outpatient Medications (including Supplies): Active Outpatient Medications Status = 1) ATORVASTATIN CALCIUM 80MG TAB TAKE ONE TABLET BY MOUTH AT ACTIVE BEDTIME 2) EZETIMIBE 10MG TAB TAKE ONE TABLET BY MOUTH ONCE DAILY TO ACTIVE LOWER CHOLESTEROL 3) METOPROLOL SUCCINATE 50MG SA TAB TAKE ONE TABLET BY MOUTH ACTIVE ONCE DAILY FOR BLOOD PRESSURE/HEART 4) TRIAMCINOLONE ACETONIDE 0.1% CREAM APPLY A MODERATE AMOUNT ACTIVE TOPICALLY TWICE DAILY NEEDED Indication: FOR ITCHING Active Non-VA Medications Status = 1) Non-VA ASPIRIN 81MG CHEW TAB 81MG BY MOUTH ONCE DAILY ACTIVE 5 Total Medications Allergies: NOVOCAIN All medications including those prescribed by outside VA's, community providers, and all OTC meds were reviewed and reconciled with patient to the best of their abilities. This 83 year old MALE is seen today for KARL CARLOS: 07/25/2022 Chief Complaint: Reports he needs glasses to read. Rewports OS is always tearing. reports occasional itching and crusting on the eyelids. Reports he has large lash that daughter must remove at times and will poke his left eye. OHx: 1. Macular hole OD - longstanding 2. Chronic blepharitis OU 3. Bilateral pseudophakia 4. Hyperopia w/presbyopia OU Ocular Medications: (-) Pain: (-) KU: (-) Diplopia: (-) Flashes: (-) Floaters: (-) Amaurosis Fugax/Tia's: (-) Eye Injury: (-) Eye Surgery: CE w/ PCIOL (-) TBI FOHx: (-) Glaucoma/ARMD/Blindness VITALS (most recent, as listed in the electronic record): B/P: 136/66 (04/13/2024 13:49) Pulse: 73 (04/13/2024 13:23) Temperature: 97.8 F [36.6 C] (04/13/2024 13:23) Weight: 193.8 lb [87.91 kg] (04/13/2024 13:23) Height: 66 in [167.6 cm] (04/13/2024 13:23) BMI: BMI: 31.3 PERTINENT LABS: HEMOGLOBIN A1C TREND No data available (-) Smoker/Length of Time/PPD: Current Rx with last BCVA: OD: +1.50 -1.50 x 090 20/400 OS: +1.50 -1.00 x 090 20/20 Add: +2.75 20/20 OU DVA ( )sc ( X )cc - phoropter OD: 20/400 OS: 20/20 Pupils: PERRL (-)APD EOMs: SAFE OU, (-)Pain/Diplopia CVF (facial, peripheral): FTFC OU Subjective Refraction: OD: +1.50 -1.50 x 090 20/400 OS: +1.50 -1.00 x 090 20/20 Add: +2.75 20/20 All the above performed by student, reviewed by attending Anterior segment: Performed by student, repeated by attending Lids: Dermatochalasis, +1 MGD, +1 Bleph OU, 1 long curly eyelash OS epilated today with epilation forceps Conj: white and quiet OU Cornea: clear OU AC: D&Q OU Angles: 4x4 OU Iris: flat and clear OU, (-) NVI Lens: PCIOL OU Tonometry: Performed by student, reviewed by attending [ X] GAT [ ] iCare OD 13 mmHg OS 14 mmHg Time: 11:21 am Fundus exam: Dilated: XXXX Non dilated: Dilating Drops: 1GTT 1 % Tropicamide OU & 1GTT 2.5% Phenylephrine OU (Pt. ed. on side effects, dilation warning given and verbal consent obtained) Patient advised not to drive if they feel they have any symptoms which could affect their ability to drive safely. Patient advised not to engage in any activities which could put themselves or others at risk if they feel they have any symptoms which could affect their ability to perform those activities safely. Performed by student, repeated by attending Vit: clear OU C/D: 0.40 OD, 0.40 OS Macula: OD: Old Macular hole OS: flat and clear OU PPole: clear, A/V: 2/3 Vessels: normal caliber OU Periph: flat and intact (-)holes, tears, detachments 360 OU Assessment/Plan: 1. Macular Hole OD - Longstanding and stable - BCVA 20/400 - Pt. ed on finding and the importance of protecting his left eye - New bifocals ordered today for fulltime wear. - Monitor 2. Chronic Blepharitis OS> OD - Pt. ed. on todays findings - Ordering Refresh and Lid scrubs - Ed. pt. to use BID-QID OU even on days when eyes are not feeling dry - Ed. pt. to use lid scrubs in the morning when he wakes up. Advised pt to use 1 side on right eyelid and one side on left eyelid - Monitor in 1 year 3. Pseudophakia OU - PCIOLs appear well centered and stable today - Pt. ed. on findings - Monitor 4. Hyperopia and presbyopia OU - Pt. ed. on todays findings - Ordering duplicate frames for FT28 Photochromatic and Yellow from 2019 - Monitor Return to Clinic 1 year for CEE or earlier PRN Total time: 33 minutes Medication Reconciliation: Outpatient: Has the patient been taking medications as documented in the EMLR? YES: The patient has been taking medications as documented in the EMLR. Essential Medication List for Review used to complete this medication reconciliation. INCLUDED IN THIS LIST: Alphabetical list of active outpatient prescriptions dispensed from this [place] (local) and dispensed from another [place] or [facility] facility (remote) as well as inpatient orders [...] whether with a VA or non-VA provider. Medication List: JLV Link Data on this list may not be complete. Please check JLV. Allergies/ADRs (Tool #5) FACILITY ALLERGY/ADR -------- [facility] [place] [facility] [place] [facility] NOVOCAIN Med. Reconciliation (Tool #1) INCLUDED IN THIS LIST: Alphabetical list of active outpatient prescriptions dispensed from this [place] (local) and dispensed from another [place] or [facility] facility (remote) as well as inpatient orders (local pending and active), local clinic medications, locally documented non-VA medications, and local prescriptions that have or been discontinued in the past 90 days. Non-VA Meds Last Documented On: Apr 09, 2022 NOTE The display of VA prescriptions dispensed from another [place] or [facility] facility (remote) is limited to active outpatient prescription entries matched to National Drug File at the originating site and may not include some items such as investigational drugs, compounds, etc. NOT INCLUDED IN THIS LIST: Medications self-entered by the patient into personal health records (i.e. [employer]) are NOT included in this list. Non-VA medications documented outside this [place], remote inpatient orders (regardless of status) and remote clinic medications are NOT included in this list. The patient and provider must always discuss medications the patient is taking, regardless of where the medication was dispensed or obtained. Non-VA ASPIRIN 81MG CHEW TAB CHEW ONE TABLET BY MOUTH ONCE DAILY Patient wants to buy from Non-VA pharmacy. OUTPT ATORVASTATIN CALCIUM 80MG TAB (Status = Discontinued) TAKE ONE TABLET BY MOUTH AT BEDTIME Rx# [id number] Last Released: 03/19/24 Qty/Days Supply: Rx Expiration Date: 06/19/24 Refills Remainin OUTPT ATORVASTATIN CALCIUM 80MG TAB (Status = Active) TAKE ONE TABLET BY MOUTH AT BEDTIME Rx# [id number] Last Released: 06/26/24 Qty/Days Supply: 90 Rx Expiration Date: 06/26/25 Refills Remainin OUTPT CARBOXYMETHYLCELLULOSE NA 0.5% OPH SOLN (Status = Pending) INSTILL ONE DROP INTO EACH EYE FOUR TIMES A DAY Login Date: 09/01/24 Qty/Days Supply: Refills Ordered: 3 OUTPT EYELID CLEANSER,EYE SCRUB PAD (Status = Pending) USE 1 PAD TOPICALLY EVERY MORNING Login Date: 09/01/24 Qty/Days Supply: Refills Ordered: 3 OUTPT EZETIMIBE 10MG TAB (Status = Discontinued) TAKE ONE TABLET BY MOUTH ONCE DAILY TO LOWER CHOLESTEROL Rx# [id number] Last Released: 03/19/24 Qty/Days Supply: Rx Expiration Date: 06/19/24 Refills Remainin OUTPT EZETIMIBE 10MG TAB (Status = Active) TAKE ONE TABLET BY MOUTH ONCE DAILY TO LOWER CHOLESTEROL Rx# [id number] Last Released: 06/26/24 Qty/Days Supply: Rx Expiration Date: 06/26/25 Refills Remainin OUTPT HYDROCHLOROTHIAZIDE 25MG TAB (Status = ) TAKE ONE TABLET BY MOUTH ONCE DAILY Rx# [id number] Last Released: 03/31/24 Qty/Days Supply: Rx Expiration Date: 06/19/24 Refills Remainin OUTPT METOPROLOL SUCCINATE 50MG SA TAB (Status = Discontinued) TAKE ONE TABLET BY MOUTH ONCE DAILY FOR BLOOD PRESSURE/HEART Rx# [id number] Last Released: 03/19/24 Qty/Days Supply: Rx Expiration Date: 06/19/24 Refills Remainin OUTPT METOPROLOL SUCCINATE 50MG SA TAB (Status = Active) TAKE ONE TABLET BY MOUTH ONCE DAILY FOR BLOOD PRESSURE/HEART Rx# [id number] Last Released: 06/29/24 Qty/Days Supply: Rx Expiration Date: 06/26/25 Refills Remainin OUTPT TRIAMCINOLONE ACETONIDE 0.1% CREAM (Status = Active) APPLY A MODERATE AMOUNT TOPICALLY TWICE DAILY NEEDED FOR ITCHING Rx# [id number] Last Released: 10/28/23 Qty/Days Supply: Rx Expiration Date: 10/24/24 Refills Remainin Indication: FOR ITCHING SUPPLIES PHARMACY TERMS AND POSSIBLE PATIENT ACTIONS INPT = [place] inpatient order IV = [place] intravenous medication OUTPT = [place] outpatient prescription PHARMACY POSSIBLE PATIENT TERMS EXPLANATION ACTIONS -------- - ACTIVE A prescription that can be If you have refills, filled at the local [place] pharmacy. you may request a refill of this prescription from your [place] pharmacy. CLINIC A medication you received during If you have questions a visit to a [place] clinic or about this medication emergency department. contact your [place] healthcare team. DISCONTINUED A prescription your provider has Contact your VA stopped. It is no longer healthcare team if you available to be sent to you or need more of this picked up at the [place] pharmacy medication. window. A prescription which is too old Contact your VA to fill. This does not refer to healthcare team if you the expiration date of the need more of this medication in the container. medication. NON-VA A medication that came from If this medication someplace other than a VA information is pharmacy. This may be a incorrect or out of prescription from either the VA date, please tell your or non VA providers that was VA healthcare team. filled outside the VA. Or, it may be an yrlf-pyq-dycjysi (OTC), herbal, dietary supplements or sample medication. ON HOLD An active prescription that will Contact your VA not be filled until pharmacy pharmacy when you need resolves the issue. more of this medication. PARKED An active prescription that will Contact your VA not be filled until the patient pharmacy when you need requests it. this medication. PENDING This prescription order has been If you have been sent to the pharmacy for review instructed to start and is not ready yet. this medication now, contact your VA pharmacy. SUSPENDED An active prescription that is Contact your VA not scheduled to be filled yet. pharmacy if you need You should receive it before this medication now. you run out. ==== (x) Printed Medication Reconciliation List Offered and Declined by [place] () Medication Reconciliation List Printed for [place] at Exam () Optometry HT Please Print and Mail Copy of Medication Reconciliation List () AMSA Please Print and Mail Copy of Medication Reconciliation List /eleanor/ DAVIAN JONES OPTOMETRY STUDENT Signed: 09/01/2024 12:28 /eleanor/ TRINITY CALDERON OD INDUSTRIAL ELECTRICAL ENGINEER Cosigned: 09/01/2024 12:33 09/01/2024 ADDENDUM STATUS: COMPLETED The optometry internal combustion engineer participated in this exam, I saw this [place] in conjunction with the optometry student. The entrance tests and refraction were performed by the student and reviewed by me. I personally met with the patient, confirmed the hisory, complaints and the student's findings, and performed slit lamp and fundus evaluation as indicated. I reviewed and agree with the stated findings, assessment and plan. I have added/edited the documentation to reflect my exam findings and changes to the assessment and plan. Ed re today's findings. repeated back the plan and education. All reminders completed by attending and documented in student note. /eleanor/ TRINITY CALDERON OD INDUSTRIAL ELECTRICAL ENGINEER Signed: 09/01/2024 12:34 DAVIAN JONES [place] [facility]
--- OUTSIDE RECORDS SUMMARY | 2024-09-04 08:09 | XMS_ITS ---
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 Organization [place] Address [address] [place] [address] Care Team Providers Care Production Officer Name Role Phone JOSUE SIMMONS Primary Care [...] Dec 19, 2007 MEDICAR E SUPPLEM E [id number] [phone] NYDIA HUERTA UL PATIENT [employer] MEDICARE SUPPLEMEN YORDAN Dec 19, 2007 MEDICAR E SUPPLEM E [id number] [phone] NYDIA HUERTA UL PATIENT [employer] CO MEDICARE SUPPLEMEN YORDAN BANKE RS Dec 19, 2007 NONE [id number] NYDIA HUERTA UL PATIENT MEDICARE (WNR) MEDICARE (M) PART B Oct 13, 2006 PART B [id number] NYDIA HUERTA UL PATIENT MEDICARE (WNR) MEDICARE (M) PART B Oct 13, 2006 PART B [id number] [phone] NYDIA HUERTA UL PATIENT MEDICARE (WNR) MEDICARE (M) PART B Oct 13, 2006 PART B [id number] NYDIA HUERTA PATIENT MEDICARE (WNR) MEDICARE (M) PART B Oct 13, 2006 PART B [id number] NYDIA HUERTA PATIENT MEDICARE (WNR) MEDICARE (M) PART A Sep 13, 2003 PART A [id number] NYDIA HUERTA PATIENT MEDICARE (WNR) MEDICARE (M) PART A Sep 13, 2003 PART A [id number] NYDIA HUERTA PATIENT MEDICARE (WNR) MEDICARE (M) PART A Sep 13, 2003 PART A [id number] [phone] NYDIA HUERTA PATIENT MEDICARE (WNR) MEDICARE (M) PART A Sep 13, 2003 PART A [id number] NYDIA HUERTA PATIENT Selected Encounter This section includes the information on record at [place] for the Encounter. Date/Time Encounter Type Encounter Description Reason Pro vider Source Sep 02, 2024 03:58 PM Outpatient Encounter PRIMARY CARE/MEDICINE IHE Encounter [...] 07, 2024 09:00 AM [place] [facility] [place] [facility] Oct 28, 2024 08:00 AM [facility] [place] [facility] Social History: Smoking Status (Most current) [...] PM VA-TOBACCO FOR[facility] Tobacco Use History This section includes a history of the smoking, or tobacco-related health factors, that were collected on or before the date of the Encounter. The data comes from the [place] facility where the Encounter took place. Date/Time Smoking Status/Tobacco Use Comment F acility Oct 16, 2023 01:30 PM VA-TOBACCO QUIT 15 YRS OR MORE [place] [facility] [place] [facility] Jul 04, 2022 11:00 AM VA-TOBACCO FORMER USER [place] [facility] [place] [facility] Jul 04, 2022 11:00 AM VA-TOBACCO QUIT 15 YRS OR MORE [place] [facility] [place] [facility] Jun 28, 2021 10:30 AM VA-TOBACCO FORMER USER [place] [facility] [place] [facility] Jun 28, 2021 10:30 AM VA-TOBACCO QUIT 15 YRS OR MORE [place] [facility] [place] [facility] May 26, 2020 08:00 AM VA-TOBACCO FORMER USER [place] [facility] [place] [facility] May 26, 2020 08:00 AM VA-TOBACCO QUIT 15 YRS OR MORE [place] [facility] [place] [facility] May 23, 2018 11:21 AM VA-TOBACCO NEVER USED [facility] Advance Directives: All historical and current [...] ADVANCE DIRECTIVE JOCE CASTORENA [place] [facility] November 16, 2020 ADVANCE DIRECTIVE JOSUE SIMMONS [facility] Encounter Notes: All associated encounter notes This section contains the clinical notes associated to the Encounter. Date/Time Encounter Note(s) Provider Source Sep 02, 2024 03:58 PM NONVA CONSULT: LOCAL TITLE: MD/OUTSIDE CONSULT REPORT SUMMARY STANDARD TITLE: NONVA CONSULT DATE OF NOTE: SEP 02, 2024@15:58 ENTRY DATE: SEP 02, 2024@15:58:30 AUTHOR: JOSUE SIMMONS EXP COSIGNER: URGENCY: STATUS: COMPLETED 08-24-24 office visit [facility] Chief complaint: Follow-up left ankle fracture X-rays today show no fracture and good hardware Plan: Follow-up 1 week /eleanor/ Josue Simmons MD Staff Physician Signed: 09/02/2024 15:58 JOSUE SIMMONS [place] [facility]
--- OUTSIDE RECORDS SUMMARY | 2024-09-04 08:09 | XMS_ITS | Continuity of Care Document ---
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 It does not include entries that were removed or entered in error. Problem Status Onset Date Problem Type Date of Resolution Comments Source Chronic dermatitis Active 023 Condition Oct 05, 2022 Entered By: BYRON BARRON Comment: referred to dermatology [facility] Chest Pain (SCT [id number]) Active Condition Jan 02, 2022 Entered By: BYRON BARRON Comment: ordered stress test [facility] COPD - Chronic Obstructive Pulmonary Disease (SCT [id number]) Active Condition Dec 28, 2021 Entered By: BYRON BARRON Comment: on inhalers [facility] Cataract Active Condition Oct 12, 2020 Entered By: BYRON BARRON Comment: referred for surgery [facility] HTN - Hypertension (SCT [id number]) Active Condition Oct 21, 2020 Entered By: BYRON BARRON Comment: treated witn medication [facility] Hypercholesterolemia (SCT [id number]) Active Condition Oct 21, 2020 Entered By: BYRON BARRON Comment: treated with medication [facility] Asbestosis Active 018 Condition [facility] Aortic valve stenosis Active Condition [facility] Diagnosis: ICD-10-CM 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, hole, or pseudohole, right eye Active Diagnosis [facility] [...] uncertain behavior of skin Active Diagnosis [facility] Diagnosis: ICD-10-CM Z13.89 Encounter for screening for other disorder Active Diagnosis [facility] Diagnosis: ICD-10-CM R21 Rash and other nonspecific skin eruption Active Diagnosis [facility] Diagnosis: ICD-10-CM Z23 Encounter for immunization Active Diagnosis [facility] Diagnosis: ICD-10-CM H67.3 Otitis media in diseases classified elsewhere, bilateral Active Diagnosis [facility] Medications Combined list of outpatient medications from [...] TWICE DAILY FOR INFECTIO N ORAL 11/15/2023 [id number] MAUREEN BARRON D 2023 20 [facility] ASPIRIN 81MG TAB,CHEWABL E CHEW ONE TABLET BY MOUTH ONCE DAILY ORAL ACTIVE JANINE HAMMOND R 2021 [facility] ATORVASTATI N CA 80MG TAB TAKE ONE TABLET BY MOUTH AT BEDTIME ORAL ACTIVE 06/26/2025 [id number] MAUREEN BARRON D 2023 90 [facility] ATORVASTATI N CA 80MG TAB TAKE ONE TABLET BY MOUTH AT BEDTIME ORAL DISCONT INUED 06/19/2024 [id number] MOHAMUD ARGUETA 2022 90 [facility] CARBOXYMETH YLCELLULOSE NA 0.5% SOLN,OPH INSTILL 1 DROP INTO EACH EYE FOUR TIMES A DAY FOR DRY EYE OPHTHA LMIC ACTIVE 09/02/2025 [id number] 5 OSBALDO CALDERON EY J 2024 45 [facility] CEPHALEXIN 500MG CAP TAKE ONE CAPSULE BY MOUTH EVERY 8 HOURS FOR INFECTIO N ORAL 04/04/2024 [id number] 4 MAMTA STERN 2023 21 [facility] EYELID CLEANSER,EY E SCRUB PAD USE 1 PAD TOPICALL Y EVERY MORNING BLEPHARI TIS TOPICA L ACTIVE 09/02/2025 [id number] 5 OSBALDO CALDERON EY J 2024 90 [facility] EZETIMIBE 10MG TAB TAKE ONE TABLET BY MOUTH ONCE DAILY TO LOWER CHOLESTE ROL ORAL ACTIVE 06/26/2025 [id number] 4 MAUREEN BARRON D 2023 90 [facility] EZETIMIBE 10MG TAB TAKE ONE TABLET BY MOUTH ONCE DAILY TO LOWER CHOLESTE ROL ORAL DISCONT INUED 06/19/2024 [id number] KENDALL,MOHAMUD AV [address] [facility] HYDROCHLORO THIAZIDE 25MG TAB TAKE ONE TABLET BY MOUTH ONCE DAILY ORAL 06/19/2024 [id number] KENDALL,MOHAMUD AV 2023 90 [facility] METOPROLOL SUCCINATE 50MG TAB,SA TAKE ONE TABLET BY MOUTH ONCE DAILY FOR BLOOD PRESSURE /HEART ORAL ACTIVE 06/26/2025 [id number] MAUREEN BARRON PAIGE D 2023 90 [facility] METOPROLOL SUCCINATE 50MG TAB,SA TAKE ONE TABLET BY MOUTH ONCE DAILY FOR BLOOD PRESSURE /HEART ORAL DISCONT INUED 06/19/2024 [id number] KENDALL,MOHAMUD AV 2022 90 [facility] TRIAMCINOLO NE ACETONIDE 0.1% CREAM,TOP APPLY A MODERATE AMOUNT TOPICALL Y TWICE DAILY NEEDED FOR ITCHING TOPICA L ACTIVE 10/24/2024 [id number] 4 MAUREEN BARRON PAIGE D [address] [facility] Allergies, Adverse Reactions, Alerts Combined list of allergies from Department of Defense and Veterans Affairs facilities. It does not include entries that were removed or entered in error. Substance Category Reaction Severity Reaction type Status Date Reported Comments Source LIDOCAINE Propensity to adverse reactions to drug (finding) Itching MODERATE active 2 [facility] [place] Propensity to adverse reactions to drug (finding) Feeling agitated active 8 [facility] PROCAINE Propensity to adverse reactions to drug (finding) active 2 [facility] Immunizations Combined list of available immunizations from the Department of Defense and Veterans Affairs facilities. Immunization Series Date Given Administered By Site Reaction Lot Number CVX Code Drug Proposal Lead Writer Status Comments Source COVID-19 (MODERNA), MRNA, LNP-S, PF, 50 MCG/0.5 ML (AGES 12+ YEARS) 7 2023 ALMA MAHER LEFT DELTO ID [id number] 312 complet ed [facility] INFLUENZA, HIGH-DOSE, TRIVALENT, PF 2023 ALMA MAHER M LEFT DELTO ID [id number] 135 complet ed [facility] RSV, BIVALENT, PROTEIN SUBUNIT RSVPREF, DILUENT RECONSTITUTED , 0.5 ML, PF 1 2023 GRETCHEN ANDRADE E LEFT DELTO ID [id number] 305 complet ed [facility] COVID-19 (MODERNA), MRNA, LNP-S, PF, 50 MCG/0.5 ML (AGES 12+ YEARS) 1 2023 GRETCHEN ANDRADE E LEFT DELTO ID [id number] 312 complet ed [facility] INFLUENZA, HIGH-DOSE, QUADRIVALENT 2022 JERRI SHAIKH M LEFT DELTO ID [id number] 197 complet ed [facility] COVID-19 (MODERNA), MRNA, LNP-S, BIVALENT BOOSTER, PF, 50 MCG/0.5 ML OR 25MCG/0.25 ML DOSE 2021 JERRI SHAIKH ER M LEFT DELTO ID [id number] 229 complet ed [facility] INFLUENZA VACCINE, QUADRIVALENT, ADJUVANTED 2021 205 complet ed [facility] COVID-19 (MODERNA), MRNA, LNP-S, PF, 100 MCG/0.5ML DOSE OR 50 MCG/0.25ML DOSE 3 2021 207 complet ed MOD; [id number] ; 2 [facility] PNEUMOCOCCAL CONJUGATE PCV20, POLYSACCHARID E [id number] CONJUGATE, ADJUVANT, PF 2021 216 complet ed [facility] COVID-19 (MODERNA), MRNA, LNP-S, PF, 100 MCG OR 50 MCG DOSE 3 2020 207 complet ed MOD; [id number]; 2 [facility] INFLUENZA, UNSPECIFIED FORMULATION 2020 88 complet ed [facility] TDAP 2020 115 complet ed [facility] COVID-19 (MODERNA), MRNA, LNP-S, PF, 100 MCG/0.5 ML DOSE 2 2020 207 complet ed MOD; [id number]; 1 [facility] COVID-19 (MODERNA), MRNA, LNP-S, PF, 100 MCG/0.5 ML DOSE 1 2020 207 complet ed MOD; [id number]; 1 [facility] [...] DOSE SEASONAL 2017 135 complet ed Partner: [facility]. Administe red by: ARLET BOLTON (BZC=[phone]). Partner 0 Lot#: [id number] Mfr: Sanofi Pasteur; Dosage: 0.5 [facility] PNEUMOCOCCAL POLYSACCHARID E PPV23 2016 33 complet ed Partner: [facility] Administe red by: ARLET BOLTON (IGT=[id number]). Partner 0 Lot#: [id number] Mfr: [email or web address]; Dosage: 0.5 [facility] INFLUENZA, HIGH DOSE SEASONAL 2016 135 complet ed [facility] Administe red by: ARLET BOLTON ([id number]=[phone]). Partner 0 Lot#: [id number] Mfr: Sanofi Pasteur; Dosage: 0.5 [facility] Results Combined list of recent chemistry, [...] PM Reporting Lab: [facility] [place] [address] [address] Performing Lab: [facility] [place] [address] [address] [facility] [place] [facility] LIVER FUNCTION ALBUMIN [MASS/VOLU ME] IN SERUM OR PLASMA 4.0 g/dL 3.5 - 5.0 04/07 Specimen Type: SERUM No comment entered. Ordering Provider: JAMILA BARRON Report Released Date/Time: Apr 04, 2024 05:53 PM Reporting Lab: [facility] [place] [address] [address] Performing Lab: [facility] [place] [address] [address] [facility] [place] [facility] LIVER FUNCTION ALKALINE PHOSPHATAS E [ENZYMATIC ACTIVITY/V OLUME] IN SERUM OR PLASMA 118 U/L 40 - 150 04/07 Specimen Type: SERUM No comment entered. Ordering Provider: JAMILA BARRON Report Released Date/Time: Apr 04, 2024 05:53 PM Reporting Lab: [facility] [place] [facility] [address] [facility] [address] Performing Lab: [facility] [place] [address] [address] [facility] [place] [facility] LIVER FUNCTION ASPARTATE AMINOTRANS FERASE [ENZYMATIC ACTIVITY/V OLUME] IN SERUM OR PLASMA 30 U/L 5 - 34 04/07 Specimen Type: SERUM No comment entered. Ordering Provider: JAMILA BARRON Report Released Date/Time: Apr 04, 2024 05:53 PM Reporting Lab: [facility] [place] [facility] [address] [facility] [address] Performing Lab: [facility] [place] [facility] [address] [facility] [address] [facility] [place] [facility] FUN[facility] ALANINE AMINOTRANS FERASE [ENZYMATIC ACTIVITY/V OLUME] IN SERUM OR PLASMA 23 U/L 04/07 Specimen Type: SERUM No comment entered. Ordering Provider: JAMILA BARRON Report Released Date/Time: Apr 04, 2024 05:53 PM Reporting Lab: [facility] [place] [facility] [address] [facility] [address] Performing Lab: [facility] [place] [address] [address] [facility] [place] [facility] LIVER FUNCTION BILIRUBIN. TOTAL [MASS/VOLU ME] IN SERUM OR PLASMA 1.0 mg/dL 0.2 - 1.2 04/07 Specimen Type: SERUM No comment entered. Ordering Provider: JAMILA BARRON Report Released Date/Time: Apr 04, 2024 05:53 PM Reporting Lab: [facility] [place] [facility] [address] [facility] [address] Performing Lab: [facility] [place] [address] [address] [facility] [place] [facility] BASIC METABOLI C PANEL (fasting ) UREA NITROGEN [MASS/VOLU ME] IN SERUM OR PLASMA 22 mg/dL 7 - 25 04/07 Specimen Type: SERUM No comment entered. Ordering Provider: JAMILA BARRON Report Released Date/Time: Apr 04, 2024 05:53 PM Reporting Lab: [facility] [place] [address] [address] Performing Lab: [facility] [place] [address] [address] [facility] [facility] BASIC METABOLI C PANEL (fasting ) GLUCOSE [MASS/VOLU ME] IN SERUM OR PLASMA 93 mg/dL 65 - 100 04/07 Specimen Type: SERUM No comment entered. Ordering Provider: JAMILA BARRON Report Released Date/Time: Apr 04, 2024 05:53 PM Reporting Lab: [facility] [address] [address] Performing Lab: [facility] [address] [address] [facility] BASIC METABOLI C PANEL (fasting ) SODIUM [MOLES/VOL UME] IN SERUM OR PLASMA 139 mmol/L 135 - 145 04/07 Specimen Type: SERUM No comment entered. Ordering Provider: JAMILA BARRON Report Released Date/Time: Apr 04, 2024 05:53 PM Reporting Lab: [address] [address] Performing Lab: [facility] [address] [address] [facility] BASIC METABOLI C PANEL (fasting ) POTASSIUM [MOLES/VOL UME] IN SERUM OR PLASMA 3.9 mmol/L 3.5 - 5.0 04/07 Specimen Type: SERUM No comment entered. Ordering Provider: JAMILA BARRON Report Released Date/Time: Apr 04, 2024 05:53 PM Reporting Lab: [facility] [address] [address] Performing Lab: [facility] [address] [address] [facility] BASIC METABOLI C PANEL (fasting ) CHLORIDE [MOLES/VOL UME] IN SERUM OR PLASMA 102 mmol/L 100 - 110 04/07 Specimen Type: SERUM No comment entered. Ordering Provider: JAMILA BARRON Report Released Date/Time: Apr 04, 2024 05:53 PM Reporting Lab: [facility] [address] [address] Performing Lab: [facility] [address] [facility] [address] [facility]N [facility] BASIC METABOLI C PANEL (fasting ) CARBON DIOXIDE, TOTAL [MOLES/VOL UME] IN SERUM OR PLASMA 26 meq/L 20 - 30 04/07 Specimen Type: SERUM No comment entered. Ordering Provider: JAMILA BARRON Report Released Date/Time: Apr 04, 2024 05:53 PM Reporting Lab: [facility]ITALTRN [facility] [address] [facility] [address] Performing Lab: [facility] TRN [facility] [address] [facility] BASIC METABOLI C PANEL (fasting ) CREATININE [MASS/VOLU ME] IN SERUM OR PLASMA 0.92 mg/dL 0.50 - 1.40 04/07 Specimen Type: SERUM No comment entered. Ordering Provider: JAMILA BARRON Report Released Date/Time: Apr 04, 2024 05:53 PM Reporting Lab: [facility] [address] Performing Lab: [facility] TRN [facility] [address] [facility]ITALUSE [facility] BASIC METABOLI C PANEL (fasting ) GLOMERULAR FILTRATION RATE/1.73 SQ M.PREDICTE D [VOLUME RATE/AREA] IN SERUM, PLASMA OR BLOOD BY CREATININE -BASED FORMULA (CKD-EPI 2020) 82 mL/min 60 04/07 Specimen Type: SERUM No comment entered. Ordering Provider: JAMILA BARRON Report Released Date/Time: Apr 04, 2024 05:53 PM Reporting Lab: [facility] [address] Performing Lab: [facility]AMN [facility]ITALUSE[address] [address] [facility] TSH THYROTROPI N [UNITS/VOL UME] IN SERUM OR PLASMA 2.34 u[IU]/mL 0.35 - 5.00 04/07 Specimen Type: SERUM No comment entered. Ordering Provider: JAMILA BARRON Report Released Date/Time: Apr 04, 2024 05:53 PM Reporting Lab: [facility] [place] [facility] [address] [facility] [address] Performing Lab: [facility] [address] [facility] [address] [facility] [facility] LIPID PANEL FASTING CHOLESTERO L [MASS/VOLU ME] IN SERUM OR PLASMA 139 mg/dL 04/07 Specimen Type: SERUM No comment entered. Ordering Provider: JAMILA BARRON Report Released Date/Time: Apr 04, 2024 05:53 PM Reporting Lab: [facility] [place] [facility] [address] [facility] [address] Performing Lab: [facility] [place] [facility] [address] [facility] [address] [facility] [place] [facility] LIPID PANEL FASTING TRIGLYCERI DE [MASS/VOLU ME] IN SERUM OR PLASMA 136 mg/dL 0 - 150 04/07 Specimen Type: SERUM No comment entered. Ordering Provider: JAMILA BARRON Report Released Date/Time: Apr 04, 2024 05:53 PM Reporting Lab: [facility] [place] [facility] [address] [facility] [address] Performing Lab: [facility] [place] [facility] [address] [facility] [address] [facility] [place] [facility] LIPID PANEL FASTING CHOLESTERO L IN LDL [MASS/VOLU ME] IN SERUM OR PLASMA BY CALCULATIO N 72 mg/dL 0 - 129 04/07 Specimen Type: SERUM No comment entered. Ordering Provider: JAMILA BARRON Report Released Date/Time: Apr 04, 2024 05:53 PM Reporting Lab: [facility] [place] [facility] [address] [facility] [address] Performing Lab: [facility] [place] [facility] [address] [facility] [address] [facility] [facility] LIPID PANEL FASTING CHOLESTERO L.TOTAL/CH OLESTEROL IN HDL [MASS RATIO] IN SERUM OR PLASMA 3.5 04/07 Specimen Type: SERUM No comment entered. Ordering Provider: JAMILA BARRON Report Released Date/Time: Apr 04, 2024 05:53 PM Reporting Lab: [facility] [place] [facility] [address] [facility] [address] Performing Lab: [facility] [address] [facility] [address] [facility] [place] [facility] LIPID PANEL FASTING CHOLESTERO L IN HDL [MASS/VOLU ME] IN SERUM OR PLASMA 40 mg/dL 40 - 60 04/07 Specimen Type: SERUM No comment entered. Ordering Provider: JAMILA BARRON Report Released Date/Time: Apr 04, 2024 05:53 PM Reporting Lab: [facility] [place] [facility] [address] [facility] [address] Performing Lab: [facility]ITALUSETS [address] [address] [facility] W[facility]N [facility]USE [facility] CBC AND DIFF (AUTO) LEUKOCYTES [#/VOLUME] IN BLOOD BY AUTOMATED COUNT 7.77 10*3/uL 4.50 - 11.00 04/07 Specimen Type: BLOOD No comment entered. Ordering Provider: JAMILA BARRON Report Released Date/Time: Apr 04, 2024 05:53 PM Reporting Lab: [facility] [place] [address] [address] Performing Lab[facility] [place] [facility] [address] [facility] [address] [facility] [place] [facility] CBC AND DIFF (AUTO) ERYTHROCYT ES [#/VOLUME] IN BLOOD BY AUTOMATED COUNT 4.29 10*6/uL 4.23 - 5.66 04/07 Specimen Type: BLOOD No comment entered. Ordering Provider: JAMILA BARRON Report Released Date/Time: Apr 04, 2024 05:53 PM Reporting Lab: [facility] [place] [address] [address] Performing Lab: [facility] [place] [address] [address] [facility] [place] [facility] CBC AND DIFF (AUTO) HEMOGLOBIN [MASS/VOLU ME] IN BLOOD 14.2 g/dL 12.8 - 17 04/07 Specimen Type: BLOOD No comment entered. Ordering Provider: JAMILA BARRON Report Released Date/Time: Apr 04, 2024 05:53 PM Reporting Lab: [facility] [place] [facility] [address] [facility] [address] Performing Lab: [facility] [place] [facility] [address] [facility] [address] [facility] [place] [facility] CBC AND DIFF (AUTO) HEMATOCRIT [VOLUME FRACTION] OF BLOOD BY AUTOMATED COUNT 41.1 39.2 - 50.4 04/07 Specimen Type: BLOOD No comment entered. Ordering Provider: JAMILA BARRON Report Released Date/Time: Apr 04, 2024 05:53 PM Reporting Lab: [facility] [place] [address] [address] Performing Lab: [facility] [place] [facility] [address] [facility] [address] [facility] [place] [facility] CBC AND DIFF (AUTO) MCV [ENTITIC VOLUME] BY AUTOMATED COUNT 95.8 fL 82 - 99 04/07 Specimen Type: BLOOD No comment entered. Ordering Provider: JAMILA BARRON Report Released Date/Time: Apr 04, 2024 05:53 PM Reporting Lab: [facility] [place] [facility] [address] [facility] [address] Performing Lab: [facility] [place] [facility] [address] [facility] [address] [facility] [place] [facility] CBC AND DIFF (AUTO) MCHC [MASS/VOLU ME] BY AUTOMATED COUNT 34.5 g/dL 30.8 - 35.1 04/07 Specimen Type: BLOOD No comment entered. Ordering Provider: JAMILA BARRON Report Released Date/Time: Apr 04, 2024 05:53 PM Reporting Lab: [facility] [place] [facility] [address] [facility] [address] Performing Lab: [facility] [place] [facility] [address] [facility] [address] [facility] [place] [facility] CBC AND DIFF (AUTO) PLATELETS [#/VOLUME] IN BLOOD BY AUTOMATED COUNT 184 10*3/uL 140 - 360 04/07 Specimen Type: BLOOD No comment entered. Ordering Provider: JAMILA BARRON Report Released Date/Time: Apr 04, 2024 05:53 PM Reporting Lab: [facility] [place] [facility] [address] [facility] [address] Performing Lab: [facility] [place] [facility] [address] [facility] [address] [facility] [place] [facility] CBC AND DIFF (AUTO) ERYTHROCYT E DISTRIBUTI ON WIDTH [RATIO] BY AUTOMATED COUNT 13.1 12.0 - 16.0 04/07 Specimen Type: BLOOD No comment entered. Ordering Provider: JAMILA BARRON Report Released Date/Time: Apr 04, 2024 05:53 PM Reporting Lab: [facility] [place] [facility] [address] [facility] [address] Performing Lab: [facility] [place] [facility] [address] [facility] [address] [facility] [place] [facility] CBC AND DIFF (AUTO) MONOCYTES [#/VOLUME] IN BLOOD BY AUTOMATED COUNT 0.98 10*3/uL 0.30 - 1.10 04/07 Specimen Type: BLOOD No comment entered. Ordering Provider: JAMILA BARRON Report Released Date/Time: Apr 04, 2024 05:53 PM Reporting Lab: [facility] [place] [facility] [address] [facility] [address] Performing Lab: [place] [facility] [place] [facility] [address] [facility] [address] [place] [facility] [place] [facility] CBC AND DIFF (AUTO) MCH [ENTITIC MASS] BY AUTOMATED COUNT 33.1 pg 26.2 - 32.6 04/07 H Specimen Type: BLOOD No comment entered. Ordering Provider: JAMILA BARRON Report Released Date/Time: Apr 04, 2024 05:53 PM Reporting Lab: [facility] [place] [facility] [address] [facility] [address] Performing Lab: [facility] [place] [facility] [address] [facility] [address] [facility] [place] [facility] CBC AND DIFF (AUTO) NEUTROPHIL S/100 LEUKOCYTES IN BLOOD BY AUTOMATED COUNT 52.3 43.7 - 75.8 04/07 Specimen Type: BLOOD No comment entered. Ordering Provider: JAMILA BARRON Report Released Date/Time: Apr 04, 2024 05:53 PM Reporting Lab: [facility] [place] [facility] [address] [facility] [address] Performing Lab: [place] [facility] [place] [facility] [address] [facility] [address] [place] [facility] [facility] CBC AND DIFF (AUTO) LYMPHOCYTE S/100 LEUKOCYTES IN BLOOD BY AUTOMATED COUNT 31.7 14.0 - 42.3 04/07 Specimen Type: BLOOD No comment entered. Ordering Provider: JAMILA BARRON Report Released Date/Time: Apr 04, 2024 05:53 PM Reporting Lab: [facility] [place] [facility] [address] [facility] [address] Performing Lab: [facility] [place] [facility] [address] [facility] [address] [place] [facility] [place] [facility] CBC AND DIFF (AUTO) MONOCYTES/ 100 LEUKOCYTES IN BLOOD BY AUTOMATED COUNT 12.6 5.1 - 13.7 04/07 Specimen Type: BLOOD No comment entered. Ordering Provider: JAMILA BARRON Report Released Date/Time: Apr 04, 2024 05:53 PM Reporting Lab: [facility] [place] [facility] [address] [facility] [address] Performing Lab: [facility] [place] [facility] [address] [facility] [address] [place] [facility] [place] [facility] CBC AND DIFF (AUTO) EOSINOPHIL S/100 LEUKOCYTES IN BLOOD BY AUTOMATED COUNT 2.3 0.4 - 6.8 04/07 Specimen Type: BLOOD No comment entered. Ordering Provider: JAMILA BARRON Report Released Date/Time: Apr 04, 2024 05:53 PM Reporting Lab: [facility] [place] [facility] [address] [facility] [address] Performing Lab: [facility] [place] [address] [facility] [address] [facility] CBC AND DIFF (AUTO) BASOPHILS/ 100 LEUKOCYTES IN BLOOD BY AUTOMATED COUNT 0.6 0.1 - 2.0 04/07 Specimen Type: BLOOD No comment entered. Ordering Provider: JAMILA BARRON Report Released Date/Time: Apr 04, 2024 05:53 PM Reporting Lab: [facility] [place] [facility] [address] [facility] [address] Performing Lab: [facility] [place] [facility] [address] [facility] [address] [facility] CBC AND DIFF (AUTO) NEUTROPHIL S [#/VOLUME] IN BLOOD BY AUTOMATED COUNT 4.06 10*3/uL 2.20 - 7.60 04/07 Specimen Type: BLOOD No comment entered. Ordering Provider: JAMILA BARRON Report Released Date/Time: Apr 04, 2024 05:53 PM Reporting Lab: [facility] [place] [facility] [address] [facility] [address] Performing Lab: [facility] [place] [facility] [address] [facility] [address] [facility] CBC AND DIFF (AUTO) LYMPHOCYTE S [#/VOLUME] IN BLOOD BY AUTOMATED COUNT 2.46 10*3/uL 1.00 - 3.20 04/07 Specimen Type: BLOOD No comment entered. Ordering Provider: JAMILA BARRON Report Released Date/Time: Apr 04, 2024 05:53 PM Reporting Lab: [facility] [place] [facility] [address] [facility] [address] Performing Lab: [facility] [place] [facility] [address] [facility] [address] [facility] CBC AND DIFF (AUTO) EOSINOPHIL S [#/VOLUME] IN BLOOD BY AUTOMATED COUNT 0.18 10*3/uL 0.03 - 0.44 04/07 Specimen Type: BLOOD No comment entered. Ordering Provider: JAMILA BARRON Report Released Date/Time: Apr 04, 2024 05:53 PM Reporting Lab: [facility] [place] [address] [address] Performing Lab: [facility] [place] [address] [address] [facility] [facility] CBC AND DIFF (AUTO) BASOPHILS [#/VOLUME] IN BLOOD BY AUTOMATED COUNT 0.05 10*3/uL 0.01 - 0.13 04/07 Specimen Type: BLOOD No comment entered. Ordering Provider: JAMILA BARRON Report Released Date/Time: Apr 04, 2024 05:53 PM Reporting Lab: [facility] [place] [address] [address] Performing Lab: [facility] [place] [address] [address] [facility] [place] [facility] CBC AND DIFF (AUTO) IMMATURE GRANULOCYT ES/100 LEUKOCYTES IN BLOOD BY AUTOMATED COUNT 0.5 0.0 - 0.7 04/07 Specimen Type: BLOOD No comment entered. Ordering Provider: JAMILA BARRON Report Released Date/Time: Apr 04, 2024 05:53 PM Reporting Lab: [facility] [place] [address] [address] Performing Lab: [facility] [place] [address] [address] [facility] [place] [facility] CBC AND DIFF (AUTO) IMMATURE GRANULOCYT ES [#/VOLUME] IN BLOOD 0.04 10*3/uL 0.00 - 0.06 04/07 Specimen Type: BLOOD No comment entered. Ordering Provider: JAMILA BARRON Report Released Date/Time: Apr 04, 2024 05:53 PM Reporting Lab: [facility] [place] [address] [address] Performing Lab[facility] [place] [facility] [address] [facility] [address] [facility] [place] [facility] CBC AND DIFF (AUTO) NRBC % 0.0 0.0 - 0.0 04/07 Specimen Type: BLOOD No comment entered. Ordering Provider: JAMILA BARRON Report Released Date/Time: Apr 04, 2024 05:53 PM Reporting Lab: [facility] [place] [facility] [address] [facility] [address] Performing Lab: [facility] [place] [address] [facility] [address] [facility] [place] [facility] CBC AND DIFF (AUTO) NRBC, ABS 0.00 10*3/uL 0.00 - 0.00 04/07 Specimen Type: BLOOD No comment entered. Ordering Provider: JAMILA BARRON Report Released Date/Time: Apr 04, 2024 05:53 PM Reporting Lab: [facility] [place] [address] [address] Performing Lab: [facility] [place] [address] [address] [facility] [place] [facility] URINALYS IS CLEAN CATCH COLOR OF URINE Yellow 04/07 Specimen Type: URINE Comment: If Glucose = >500 and Ketones are positive, please alert the Physician. Ordering Provider: JAMILA BARRON Report Released Date/Time: Apr 04, 2024 05:53 PM Reporting Lab: [facility] [place] [address] [address] Performing Lab: [facility] [place] [address] [address] [facility] [place] [facility] URINALYS IS CLEAN CATCH APPEARANCE OF URINE Clear 04/07 Specimen Type: URINE Comment: If Glucose = >500 and Ketones are positive, please alert the Physician. Ordering Provider: JAMILA BARRON Report Released Date/Time: Apr 04, 2024 05:53 PM Reporting Lab: [facility] [place] [address] [address] Performing Lab: [facility] [place] [facility] [address] [facility] [address] [facility] URINALYS IS CLEAN CATCH GLUCOSE [MASS/VOLU ME] IN URINE Normalmg /dL 04/07 Specimen Type: URINE Comment: If Glucose = >500 and Ketones are positive, please alert the Physician. Ordering Provider: JAMILA BARRON Report Released Date/Time: Apr 04, 2024 05:53 PM Reporting Lab: [facility] [place] [facility] [address] [facility] [address] Performing Lab: [facility] [place] [facility] [address] [facility]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 X REQ PHY/QHP [id number] Diagnos is: ICD-10- CM Z48.01 Encount er for change or removal of surgica l wound dressin KAVEH Fernandez L 03/06 [facility] OFF/OP CNSLTJ NEW/EST MOD 40 [id number] Diagnos is: ICD-10- CM H90.A31 Mix cndct/s nrl hear loss,un i,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 RANCHO RODRIGUEZ 04/28 [facility] CONFORMITY EVALUATION [id number] Diagnos is: ICD-10- CM Z46.1 Encount er for fitting and adjustm ent of hearing aid Yossi HARRINGTON 05/05 [facility] Out[facility] Encounter [id number] 05/08 [facility] Encounter [id number] 06/01 [facility] Encounter [id number] 06/03 [facility]counter [id number] 06/06 [facility] Out[facility] Encounter [id number]/16 [facility] Encounter [id number] 06/19 [facility] Out[facility] Encounter [id number] 06/25 [facility] Out[facility] Encounter [id number] 06/25 [facility] Encounter [id number] 06/26 [facility] Out[facility] Encounter [id number] 07/02 [facility] Encounter [id number] 07/06 [facility] Out[facility] Encounter [id number] 07/14 [facility] Encounter [id number] 07/14 [facility] Encounter [id number] 07/20 [facility] Outpatient Encounter [id number] 08/06 [facility] Outpatient Encounter [id number] 08/27 [facility] OFFICE O/P EST MOD 30 MIN [id number] Diagnos is: ICD-10- CM 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 Social History Type Response Date Comment [facility] e Tobacco smoking status NHIS VA-TOBACCO FORMER USER 10/16/2023 [facility] [place] [facility] History of tobacco use NM-TOBACCO QUIT 15 YRS OR MORE 10/16/2023 [facility] [place] [facility] History of tobacco use VA-TOBACCO FORMER USER 07/04/2022 [facility] [place] [facility] History of tobacco use NSG NO TOBACCO USE PAST 30 DAYS 03/27/2022 [place] History of tobacco use NSG NO TOBACCO USE PAST 30 DAYS 03/05/2022 [place] History of tobacco use NSG NO TOBACCO USE PAST 30 DAYS 03/02/2022 [place] History of tobacco use VA-TOBACCO FORMER USER 06/28/2021 [facility] [place] [facility] History of tobacco use VA-TOBACCO FORMER USER 05/26/2020 [facility] [place] [facility] History of tobacco use VA-TOBACCO NEVER USED 05/23/2018 [facility] [place] [facility] Plan of Care List of future care activities from Department of Veterans Affairs facilities. Additional future care activities may be listed in the Assessment and Plan section. Date/Time Care Activity Care Activity Detail Facili ty 10/07/2024 AMBULATORY - MEDICINE AM[facility]ULATORY - [facility] 10/28/2024 AMBULATORY - MEDICINE [facility]ATORY - [facility] Advance Directives List of completed, amended, or rescinded Advance Directives on record at Department of [facility] facilities. An actual copy of the Directive is not included. Date Advance Directive Provider Source 02/19/2022 ADVANCE DIRECTIVE JOCE CASTORENA [facility] 11/16/2020 ADVANCE DIRECTIVE BYRON BARRON [facility]
--- OUTSIDE RECORDS SUMMARY | 2024-09-04 08:09 | XMS_ITS ---
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 Generated for Printi ng/Famichaelg/eTransmitting on:?09/04/2024 08:09 AM EST
--- OUTSIDE RECORDS SUMMARY | 2024-09-04 08:09 | XMS_ITS ---
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 Organization [facility] [place] Address [address] [place] [id number] Care Team Providers Care Addresser Name Role Phone JOSUE SIMMONS Primary Care [...] Dec 19, 2007 MEDICAR E SUPPLEM E [id number] [phone] NYDIA HUERTA UL PATIENT [employer] MEDICARE SUPPLEMEN YORDAN Dec 19, 2007 MEDICAR E SUPPLEM E [id number] [phone] NYDIA HUERTA UL PATIENT [employer] [place] MEDICARE SUPPLEMEN YORDAN BANKE RS Dec 19, 2007 NONE [id number] [phone] NYDIA HUERTA UL PATIENT MEDICARE (WNR) MEDICARE (M) PART B Oct 13, 2006 PART B [id number] NYDIA HUERTA UL PATIENT MEDICARE (WNR) MEDICARE (M) PART B Oct 13, 2006 PART B [id number] NYDIA HUERTA UL PATIENT MEDICARE (WNR) MEDICARE (M) PART B Oct 13, 2006 PART B [id number] [phone] NYDIA HUERTA PATIENT MEDICARE (WNR) MEDICARE (M) PART B Oct 13, 2006 PART B [id number] NYDIA HUERTA PATIENT MEDICARE (WNR) MEDICARE (M) PART A Sep 13, 2003 PART A [id number] [phone] NYDIA HUERTA PATIENT MEDICARE (WNR) MEDICARE (M) PART A Sep 13, 2003 PART A [id number] [phone] NYDIA HUERTA PATIENT MEDICARE (WNR) MEDICARE (M) PART A Sep 13, 2003 PART A [id number] [phone] NYDIA HUERTA PATIENT MEDICARE (WNR) MEDICARE (M) PART A Sep 13, 2003 PART A [id number] NYDIA HUERTA PATIENT Selected Encounter This section includes the information on record at [place] for the Encounter. Date/Time Encounter Type Encounter Description Reason Pro vider Source Aug 27, 2024 03:56 PM Outpatient Encounter PRIMARY CARE/MEDICINE IHE Encounter [...] 01, 2024 11:00 AM AMBULATORY - MEDICINE [facility] [place] [place] [facility] Oct 07, 2024 09:00 AM AMBULATORY MEDICINE [facility] [place] [facility] Oct 28, 2024 08:00 AM AMBULATORY MEDICINE [facility] [place] [facility] Active, Pending, and Scheduled Orders [...] Date/Time Test Type Test Details Facility Name Jul 14, 2024 10:34 AM Consult Order COMMUNITY CARE-CARDIOLOGY [facility] [employer] [facility] [place] [facility] [facility] Social History: Smoking Status (Most [...] Facil ity Oct 16, 2023 01:30 PM [place]-TOBACCO QUIT 15 YRS OR MORE [facility] Tobacco Use History This section [...] MORE [place] [facility] [place] [facility] Jul 04, 2022 11:00 AM VA-TOBACCO FORMER USER [place] [facility] [facility] Jul 04, 2022 11:00 AM VA-TOBACCO QUIT 15 YRS OR MORE [place] [facility] [place] [facility] Jun 28, 2021 10:30 AM VA-TOBACCO FORMER USER [place] [facility] [place] [facility] Jun 28, 2021 10:30 AM VA-TOBACCO QUIT 15 YRS OR MORE [place] [facility] [place] [facility] May 26, 2020 08:00 AM VA-TOBACCO FORMER USER [place] [facility] [facility] May 26, 2020 08:00 AM VA-TOBACCO QUIT 15 YRS OR MORE [place] [facility] [place] [facility] May 23, 2018 11:21 AM VA-TOBACCO NEVER USED [place] [facility] [facility] Advance Directives: All historical [...] Source Feb 19, 2022 ADVANCE DIRECTIVE JOCE CASTORENAAN [facility] November 16, 2020 ADVANCE DIRECTIVE JOSUE SIMMONS [facility] Encounter Notes: All associated encounter notes This section contains the clinical notes associated to the Encounter. Date/Time Encounter Note(s) Provider Source Aug 27, 2024 03:56 PM NONVA CONSULT: LOCAL TITLE: MD/OUTSIDE CONSULT REPORT SUMMARY STANDARD TITLE: NONVA CONSULT DATE OF NOTE: AUG 27, 2024@15:56 ENTRY DATE: AUG 27, 2024@15:56:57 AUTHOR: JOSUE SIMMONS EXP COSIGNER: URGENCY: STATUS: COMPLETED 08-17-24 office visit [facility] Dr. Chirinos [facility] Follow-up 01-21-24 ORIF left ankle fracture with hardware Continued pain and swelling Plan: Continue nonweightbearing Follow-up 1 week /eleanor/ Josue Simmons MD Staff Physician Signed: 08/27/2024 15:57 JOSUE SIMMONS [facility]
--- OUTSIDE RECORDS SUMMARY | 2024-09-04 08:10 | XMS_ITS ---
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 Name Role Phone Josue Simmons MD Primary Care Provider Unavailab melinda Lyn Lund Unavailable [phone] Allergies Allergen (clinical drug ingredient) Drug/Non Drug [...] 04/23/2024 Encounters Encounter Location Date Provider Diagnosis [facility] [address] [place] [address] 04/23/2024 Lyn Lund Plan Of Treatment No Information Progress Notes * Reed MALLORY HDOB:1940 (83 yo M)Acc No.[id number]:04/23/2024 Progress Notes Patient:Reed VANCE Provider:?Lyn Lund DPM :1940???Age:83 Y???Sex:Male Chu e:04/23/2024 Address:[address] [place], [place] [id number] Pcp:Josue Simmons MD Subjective: * Chief Complaints: [...] Lund DPM Date:?2023 Generated for Yokasta palacios/Ilda/Sunil on:?09/04/2024 08:10 AM EST
== END 2024-09-04 08:05 | disposition home or self-care (01) ==
LOC: HO.HOSX 08:04
DX: S82.62XA Displaced fracture of lateral malleolus of left fibula, initial encounter for closed fracture (principal); M25.572 Pain in left ankle and joints of left foot
CPT/HCPCS: 73610; 99212

== ENCOUNTER 2024-09-04 12:51 | Outpatient (AMB) | payer MEDICARE, OTHER, SELFPAY ==
--- NOTE | 2024-09-04 12:55 | MHC.OFFVIS ---
Vital Signs 09/04/24 13:16 Height 5 ft 6 in Weight 193 lb BMI 31.1 Intake Visit Reasons: OV- LT Ankle ORIF 01/21/24 w/ xray Intake Note: Reed is a 83 year old male who presents today with his daughter for a post operative visit s/p left ankle ORIF 01/21/[address] Chirinos. At his last visit patient was advised to keep his ankle elevated; compression stockings were ordered. Today patient reports he continues to have pain but the swelling has gone down. Allergies niacin Allergy (Severe, Verified 09/04/24 13:16) Upset Stomach procaine [From Novocain] Allergy (Severe, Verified 09/04/24 13:16) I GET MEAN simvastatin Adverse Reaction (Severe, Verified 09/04/24 13:16) myopathy HPI HPI OV- LT Ankle ORIF 01/21/24 w/ xray: Details: Reed is a 83 year old male who presents today with his daughter for a post operative visit s/p left ankle ORIF 01/21/[address] Chirinos. At his last visit patient was advised to keep his ankle elevated; compression stockings were ordered. Today patient reports he continues to have pain but the swelling has gone down significantly with the help of compression socks. Patient reports continued difficulty with weight bearing COUNT INCLUDES THE [facility] Medical History Hyperlipidemia HTN (hypertension) CAD (coronary artery disease) Murmur, cardiac Chest pain COPD (chronic obstructive pulmonary disease) Asbestosis Surgical History S/P TAVR (transcatheter aortic valve replacement) Stented coronary artery Hx of cardiac catheterization Family History Father CAD (coronary artery disease) Mother No problems noted. Social History Patient Tobacco Use Status: Former Tobacco user Tobacco use type: Cigarette and Cigar Years Smoked: 14 years old Review of Systems Const All systems reviewed & are unremarkable except as noted in HPI and below Physical Exam Vital Signs: BMI result Body Mass Index 31.1 Extrem Other: On inspection, there is no deformity of the L ankle Incision sites are well healed No evidence of discharge There there is noted to be some discoloration in the lateral aspect of the patient's ankle No ecchymosis Improved edema noted of the left ankle, improved from last visit Evidence of skin breakdown noted at previous evaluation appears to be resolving at this time Patient reports very mild tenderness to palpation about the left lateral malleolus Patient is able to plantar flex and dorsiflex the foot minimally, limited due to swelling and pain Distal sensation intact Capillary refill brisk Results Reviewed Results Reviewed: X-rays obtained in the office today and independently reviewed by me, Demetrius Contreras PA-C, demonstrate well-healing fracture of the left lateral malleolus with orthopedic hardware in place and in satisfactory clinical alignment. No evidence of re fracture, damage to orthopedic hardware, or other injury. However, there does appear to be some evidence of disuse osteopenia versus radiographic findings consistent with potential infection Assessment & Plan Assessment & Plan (1) Ankle fracture, lateral malleolus, closed: Code(s): S82.63XA - Displaced fracture of lateral malleolus of unspecified fibula, initial encounter for closed fracture Category: Medical Qualifiers: Encounter type: initial encounter Fracture alignment: displaced Laterality: left Qualified Code(s): S82.62XA - Displaced fracture of lateral malleolus of left fibula, initial encounter for closed fracture Plan 1. Lateral malleolus fracture of the left ankle status post ORIF DOS 01/21/2024 Patient was evaluated with Dr. Chirinos, who did not see the patient with me in clinic today, and a collaborative treatment plan was formed: Patient is educated that the x-ray findings that he has, along with his physical exam, do suggest potential disuse osteopenia versus potential lingering infection in the ankle joint and hardware However, at this time, we can not differentiate due to swelling Patient is also educated that he needs to continue to have his ankle elevated consistently above heart level to allow the swelling to go down further Compression stockings ordered for this patient in order to get his swelling down even further Patient should avoid weight-bearing until follow-up Patient was amenable to this plan Patient will follow-up in 1 weeks for reassessment of swelling, sooner with any acute concerns Coding Level of Care Code Est Pt Level 3 (42081) Diagnoses Closed displaced fracture of lateral malleolus of left fibula, initial encounter S82.62XA Encounter type: initial encounter Fracture alignment: displaced Laterality: left
[2024-09-04 13:16] VITALS: BMI 31.1
--- OUTSIDE RECORDS SUMMARY | 2024-09-04 13:20 | XMS_ITS | Continuity of Care Document ---
Author Name [facility] Organization [facility] Care Team Providers Care Skip Hoist Engineer Name Role Phone [facility] Unavailable Unavailable Problems Combined list of problems from Department of Defense and Veterans Affairs facilities. It does not include entries that were removed or entered in error. Problem Status Onset Date Problem Type Date of Resolution Comments Source Chronic dermatitis Active 023 Condition Oct 05, 2022 Entered By: BYRON BARRON Comment: referred to dermatology [facility] Chest Pain (SCT [id number]) Active Condition Jan 02, 2022 Entered By: BYRON BARRON Comment: ordered stress test [facility] COPD - Chronic Obstructive Pulmonary Disease (SCT 40852699) Active Condition Dec 28, 2021 Entered By: BYRON BARRON Comment: on inhalers [facility] Cataract Active Condition Oct 12, 2020 Entered By: BYRON BARRON Comment: referred for surgery [facility] HTN - Hypertension (SCT [id number]) Active Condition Oct 21, 2020 Entered By: BYRON BARRON Comment: treated witn medication [facility] Hypercholesterolemia (SCT 30216212) Active Condition Oct 21, 2020 Entered By: [...] of uncertain behavior of skin Active Diagnosis [facility] Diagnosis: ICD-10-CM Z13.89 Encounter for screening for other disorder Active Diagnosis [facility] Diagnosis: ICD-10-CM R21 Rash and other nonspecific skin eruption Active Diagnosis [facility] Diagnosis: ICD-10-CM Z23 Encounter for immunization [...] TWICE DAILY FOR INFECTIO N ORAL 11/15/2023 [id number] MAUREEN BARRON D 2023 20 [facility] ASPIRIN 81MG TAB,CHEWABL E CHEW ONE TABLET BY MOUTH ONCE DAILY ORAL ACTIVE JANINE HAMMOND R 2021 [facility] ATORVASTATI N CA 80MG TAB TAKE ONE TABLET BY MOUTH AT BEDTIME ORAL ACTIVE 06/26/2025 [id number] MAUREEN BARRON D 2023 90 [facility] ATORVASTATI N CA 80MG TAB TAKE ONE TABLET BY MOUTH AT BEDTIME ORAL DISCONT INUED 06/19/2024 [id number] 4 MOHAMUD ARGUETA 2022 90 [facility] CARBOXYMETH YLCELLULOSE NA 0.5% SOLN,OPH INSTILL 1 DROP INTO EACH EYE FOUR TIMES A DAY FOR DRY EYE OPHTHA LMIC ACTIVE 09/02/2025 [id number] 5 OSBALDO CALDERON EY J 2024 45 [facility] CEPHALEXIN 500MG CAP TAKE ONE CAPSULE BY MOUTH EVERY 8 HOURS FOR INFECTIO N ORAL 04/04/2024 [id number] 4 MAMTA STERN 2023 21 [facility] EYELID CLEANSER,EY E SCRUB PAD USE 1 PAD TOPICALL Y EVERY MORNING BLEPHARI TIS TOPICA L ACTIVE 09/02/2025 [id number] 5 OSBALDO CALDERON EY J 2024 90 [facility] EZETIMIBE 10MG TAB TAKE ONE TABLET BY MOUTH ONCE DAILY TO LOWER CHOLESTE ROL ORAL ACTIVE 06/26/2025 [id number] 4 MAUREEN BARRON D 2023 90 [facility] EZETIMIBE 10MG TAB TAKE ONE TABLET BY MOUTH ONCE DAILY TO LOWER CHOLESTE ROL ORAL DISCONT INUED 06/19/2024 [id number] 4 KENDALL,MOHAMUD AV 2022 90 [facility] HYDROCHLORO THIAZIDE 25MG TAB TAKE ONE TABLET BY MOUTH ONCE DAILY ORAL 06/19/2024 [id number] KENDALL,MOHAMUD AV 2023 90 [facility] METOPROLOL SUCCINATE 50MG TAB,SA TAKE ONE TABLET BY MOUTH ONCE DAILY FOR BLOOD PRESSURE /HEART ORAL ACTIVE 06/26/2025 [id number] MAUREEN BARRON PAIGE D 2023 90 [facility] METOPROLOL SUCCINATE 50MG TAB,SA TAKE ONE TABLET BY MOUTH ONCE DAILY FOR BLOOD PRESSURE /HEART ORAL DISCONT INUED 06/19/2024 [id number] KENDALL,MOHAMUD AV 2022 90 [facility] TRIAMCINOLO NE ACETONIDE 0.1% CREAM,TOP APPLY A MODERATE AMOUNT TOPICALL Y TWICE DAILY NEEDED FOR ITCHING TOPICA L ACTIVE 10/24/2024 [id number] 4 MAUREEN BARRON PAIGE D 2023 454 [facility] Allergies, Adverse Reactions, Alerts Combined list of allergies from Department of Defense and Veterans Affairs facilities. It does not include entries that were removed or entered in error. Substance Category Reaction Severity Reaction type Status Date Reported Comments Source LIDOCAINE Propensity to adverse reactions to drug (finding) Itching MODERATE active 2 [facility] NOVOCAIN Propensity to adverse reactions to drug (finding) Feeling agitated active 8 [facility] PROCAINE Propensity to adverse reactions to drug (finding) active 2 [facility] Immunizations Combined list of available immunizations from the Department of Defense and Veterans Affairs facilities. Immunization Series Date Given Administered By Site Reaction Lot Number CVX Code Drug Net Mobile Developer Status Comments Source COVID-19 (MODERNA), MRNA, LNP-S, PF, 50 MCG/0.5 ML (AGES 12+ YEARS) 7 2023 ALMA MAHER LEFT DELTO ID [id number] 312 complet ed [facility] INFLUENZA, HIGH-DOSE, TRIVALENT, PF 2023 ALMA MAHER M LEFT DELTO ID [id number] 135 complet ed [facility] RSV, BIVALENT, PROTEIN SUBUNIT RSVPREF, DILUENT RECONSTITUTED , 0.5 ML, PF 1 2023 GRETCHEN ANDRADE E LEFT DELTO ID [id number] 305 complet ed [facility] COVID-19 (MODERNA), MRNA, LNP-S, PF, 50 MCG/0.5 ML (AGES 12+ YEARS) 1 2023 GRETCHEN ANDRADE E LEFT DELTO ID [id number] 312 complet ed [facility] INFLUENZA, HIGH-DOSE, QUADRIVALENT 2022 JERRI SHAIKH M LEFT DELTO ID [id number] 197 complet ed [facility] COVID-19 (MODERNA), MRNA, LNP-S, BIVALENT BOOSTER, PF, 50 MCG/0.5 ML OR 25MCG/0.25 ML DOSE 2021 JERRI SHAIKH ER M LEFT DELTO ID [id number] 229 complet ed [facility] INFLUENZA VACCINE, QUADRIVALENT, ADJUVANTED 2021 205 complet ed [facility] COVID-19 (MODERNA), MRNA, LNP-S, PF, 100 MCG/0.5ML DOSE OR 50 MCG/0.25ML DOSE 3 2021 207 complet ed MOD; [id number] ; 2 [facility] PNEUMOCOCCAL CONJUGATE PCV20, POLYSACCHARID E [id number] CONJUGATE, ADJUVANT, PF 2021 216 complet ed [facility] COVID-19 (MODERNA), MRNA, LNP-S, PF, 100 MCG OR 50 MCG DOSE 3 2020 207 complet ed MOD; [id number]; 2 [facility] INFLUENZA, UNSPECIFIED FORMULATION 2020 88 complet ed [facility] TDAP 2020 115 complet ed [facility] COVID-19 (MODERNA), MRNA, LNP-S, PF, 100 MCG/0.5 ML DOSE 2 2020 207 complet ed MOD; [id number]; 1 [facility] COVID-19 (MODERNA), MRNA, LNP-S, PF, 100 MCG/0.5 ML DOSE 1 2020 207 complet ed MOD; [id number]; 1 [facility] [...] DOSE SEASONAL 2017 135 complet ed Partner: [facility]. Administe red by: ARLET BOLTON (YUI=[phone]). Partner 0 Lot#: [id number] Mfr: Sanofi Pasteur; Dosage: 0.5 [facility] PNEUMOCOCCAL POLYSACCHARID E PPV23 2016 33 complet ed Partner: [email or web address] Administe red by: ARLET BOLTON (KTD=[phone]). Partner 0 Lot#: [id number] Mfr: [id number]; Dosage: 0.5 [facility] INFLUENZA, HIGH DOSE SEASONAL 2016 135 complet ed [email or web address] Administe red by: ARLET BOLTON (ZRB=[phone]). Partner 0 Lot#: [id number] Mfr: Sanofi Pasteur; Dosage: 0.5 [facility] Results Combined list [...] Apr 04, 2024 05:53 PM Reporting Lab: [facility] [place] [address] [address] Performing Lab: [facility] [place] [address] [address] [facility] [place] [facility] MET[facility]I C PANEL (fasting ) GLUCOSE [MASS/VOLU ME] IN SERUM OR PLASMA 93 mg/dL 65 - 100 04/07 Specimen Type: SERUM No comment entered. Ordering Provider: JAMILA BARRON Report Released Date/Time: Apr 04, 2024 05:53 PM Reporting Lab: [facility] [place] [address] [address] Performing Lab: [facility] [place] [address] [address] [facility] [place] [facility] MET[facility]I [facility] PANEL (fasting ) SODIUM [MOLES/VOL UME] IN SERUM OR PLASMA 139 mmol/L 135 - 145 04/07 Specimen Type: SERUM No comment entered. Ordering Provider: JAMILA BARRON Report Released Date/Time: Apr 04, 2024 05:53 PM Reporting Lab: [facility] [place] [facility] [address] [facility] [address] Performing Lab: [facility] [place] [address] [address] [facility] [place] [facility] PANEL (fasting ) POTASSIUM [MOLES/VOL UME] IN SERUM OR PLASMA 3.9 mmol/L 3.5 - 5.0 04/07 Specimen Type: SERUM No comment entered. Ordering Provider: JAMILA BARRON Report Released Date/Time: Apr 04, 2024 05:53 PM Reporting Lab: [facility] [address] [address] Performing Lab: [facility] [address] [address] [facility] PANEL (fasting ) CHLORIDE [MOLES/VOL UME] IN SERUM OR PLASMA 102 mmol/L 100 - 110 04/07 Specimen Type: SERUM No comment entered. Ordering Provider: JAMILA BARRON Report Released Date/Time: Apr 04, 2024 05:53 PM Reporting Lab: [facility] [address] [address] Performing Lab: [facility] [address] [facility] PANEL (fasting ) CARBON DIOXIDE, TOTAL [MOLES/VOL UME] IN SERUM OR PLASMA 26 meq/L 20 - 30 04/07 Specimen Type: SERUM No comment entered. Ordering Provider: JAMILA BARRON Report Released Date/Time: Apr 04, 2024 05:53 PM Reporting Lab: [facility] [address] [address] Performing Lab: [facility] [address] [facility] PANEL (fasting ) CREATININE [MASS/VOLU ME] IN SERUM OR PLASMA 0.92 mg/dL 0.50 - 1.40 04/07 Specimen Type: SERUM No comment entered. Ordering Provider: JAMILA BARRON Report Released Date/Time: Apr 04, 2024 05:53 PM Reporting Lab: [facility] [address] [address] Performing Lab: [facility] [address] [facility] [place] [facility] PANEL (fasting ) GLOMERULAR FILTRATION RATE/1.73 SQ M.PREDICTE D [VOLUME RATE/AREA] IN SERUM, PLASMA OR BLOOD BY CREATININE -BASED FORMULA (CKD-EPI 2020) 82 mL/min 60 04/07 Specimen Type: SERUM No comment entered. Ordering Provider: JAMILA BARRON Report Released Date/Time: Apr 04, 2024 05:53 PM Reporting Lab: [facility] [place] [facility] [address] [facility] [address] Performing Lab: [facility] [place] [facility] [address] [facility] [address] [facility] [place] [facility] CBC AND DIFF (AUTO) LEUKOCYTES [#/VOLUME] IN BLOOD BY AUTOMATED COUNT 7.77 10*3/uL 4.50 - 11.00 04/07 Specimen Type: BLOOD No comment entered. Ordering Provider: JAMILA BARRON Report Released Date/Time: Apr 04, 2024 05:53 PM Reporting Lab: [facility] [place] [facility] [address] [facility] [address] Performing Lab: [facility] [address] [facility] [address] [facility] CBC AND DIFF (AUTO) ERYTHROCYT ES [#/VOLUME] IN BLOOD BY AUTOMATED COUNT 4.29 10*6/uL 4.23 - 5.66 04/07 Specimen Type: BLOOD No comment entered. Ordering Provider: JAMILA BARRON Report Released Date/Time: Apr 04, 2024 05:53 PM Reporting Lab: [facility] [place] [facility] [address] [facility] [address] Performing Lab: [facility] [place] [facility] [address] [facility] [address] [facility] [place] [facility] CBC AND DIFF (AUTO) HEMOGLOBIN [MASS/VOLU ME] IN BLOOD 14.2 g/dL 12.8 - 17 04/07 Specimen Type: BLOOD No comment entered. Ordering Provider: JAMILA BARRON Report Released Date/Time: Apr 04, 2024 05:53 PM Reporting Lab: [facility] [place] [facility] [address] [facility] [address] Performing Lab: [facility] [place] [facility] [address] [facility] [address] [facility] [place] [facility] CBC AND DIFF (AUTO) HEMATOCRIT [VOLUME FRACTION] OF BLOOD BY AUTOMATED COUNT 41.1 39.2 - 50.4 04/07 Specimen Type: BLOOD No comment entered. Ordering Provider: JAMILA BARRON Report Released Date/Time: Apr 04, 2024 05:53 PM Reporting Lab: [facility] [place] [facility] [address] [facility] [address] Performing Lab: [facility] [place] [facility] [address] [facility] [address] [place] [facility] [place] [facility] CBC AND DIFF (AUTO) MCV [ENTITIC VOLUME] BY AUTOMATED COUNT 95.8 fL 82 - 99 04/07 Specimen Type: BLOOD No comment entered. Ordering Provider: JAMILA BARRON Report Released Date/Time: Apr 04, 2024 05:53 PM Reporting Lab: [facility] [place] [facility] [address] [facility] [address] Performing Lab: [facility] [place] [facility] [address] [facility] [address] [place] [facility] [facility] CBC AND DIFF (AUTO) MCHC [MASS/VOLU ME] BY AUTOMATED COUNT 34.5 g/dL 30.8 - 35.1 04/07 Specimen Type: BLOOD No comment entered. Ordering Provider: JAMILA BARRON Report Released Date/Time: Apr 04, 2024 05:53 PM Reporting Lab: [facility] [place] [facility] [address] [facility] [address] Performing Lab: [facility] [place] [facility] [address] [facility] [address] [facility] [place] [facility] CBC AND DIFF (AUTO) PLATELETS [#/VOLUME] IN BLOOD BY AUTOMATED COUNT 184 10*3/uL 140 - 360 04/07 Specimen Type: BLOOD No comment entered. Ordering Provider: JAMILA BARRON Report Released Date/Time: Apr 04, 2024 05:53 PM Reporting Lab: [facility] [place] [facility] [address] [facility] [address] Performing Lab: [facility] [place] [facility] [address] [facility] [address] [facility] [place] [facility] CBC AND DIFF (AUTO) ERYTHROCYT E DISTRIBUTI ON WIDTH [RATIO] BY AUTOMATED COUNT 13.1 12.0 - 16.0 04/07 Specimen Type: BLOOD No comment entered. Ordering Provider: JAMILA BARRON Report Released Date/Time: Apr 04, 2024 05:53 PM Reporting Lab: [facility] [place] [facility] [address] [facility] [address] Performing Lab: [facility] [place] [facility] [address] [facility] [address] [place] [facility] [place] [facility] CBC AND DIFF (AUTO) MONOCYTES [#/VOLUME] IN BLOOD BY AUTOMATED COUNT 0.98 10*3/uL 0.30 - 1.10 04/07 Specimen Type: BLOOD No comment entered. Ordering Provider: JAMILA BARRON Report Released Date/Time: Apr 04, 2024 05:53 PM Reporting Lab: [facility] [place] [facility] [address] [facility] [address] Performing Lab: [facility] [place] [facility] [address] [facility] [address] [facility] [place] CBC AND DIFF (AUTO) MCH [ENTITIC MASS] BY AUTOMATED COUNT 33.1 pg 26.2 - 32.6 04/07 H Specimen Type: BLOOD No comment entered. Ordering Provider: JAMILA BARRON Report Released Date/Time: Apr 04, 2024 05:53 PM Reporting Lab: [facility] [place] [facility] [address] [facility] [address] Performing Lab: [facility] [place] [facility] [address] [facility] [address] [facility] [place] CBC AND DIFF (AUTO) NEUTROPHIL S/100 LEUKOCYTES IN BLOOD BY AUTOMATED COUNT 52.3 43.7 - 75.8 04/07 Specimen Type: BLOOD No comment entered. Ordering Provider: JAMILA BARRON Report Released Date/Time: Apr 04, 2024 05:53 PM Reporting Lab: [facility] [place] [facility] [address] [facility] [address] Performing Lab: [facility] [address] [facility] [address] [facility] [place] CBC AND DIFF (AUTO) LYMPHOCYTE S/100 LEUKOCYTES IN BLOOD BY AUTOMATED COUNT 31.7 14.0 - 42.3 04/07 Specimen Type: BLOOD No comment entered. Ordering Provider: JAMILA BARRON Report Released Date/Time: Apr 04, 2024 05:53 PM Reporting Lab: [facility] [place] [address] [address] Performing Lab: [facility] [place] [address] [address] [facility] CBC AND DIFF (AUTO) MONOCYTES/ 100 LEUKOCYTES IN BLOOD BY AUTOMATED COUNT 12.6 5.1 - 13.7 04/07 Specimen Type: BLOOD No comment entered. Ordering Provider: JAMILA BARRON Report Released Date/Time: Apr 04, 2024 05:53 PM Reporting Lab: [facility] [place] [address] [address] Performing Lab: [facility] [place] [address] [place] [address] [facility] [place] CBC AND DIFF (AUTO) EOSINOPHIL S/100 LEUKOCYTES IN BLOOD BY AUTOMATED COUNT 2.3 0.4 - 6.8 04/07 Specimen Type: BLOOD No comment entered. Ordering Provider: JAMILA BARRON Report Released Date/Time: Apr 04, 2024 05:53 PM Reporting Lab: [facility] [place] [address] [address] Performing Lab: [facility] [place] [address] [address] [facility] CBC AND DIFF (AUTO) BASOPHILS/ 100 LEUKOCYTES IN BLOOD BY AUTOMATED COUNT 0.6 0.1 - 2.0 04/07 Specimen Type: BLOOD No comment entered. Ordering Provider: JAMILA BARRON Report Released Date/Time: Apr 04, 2024 05:53 PM Reporting Lab: [facility] [address] [place] [address] Performing Lab: [facility] [place] [facility] [address] [facility] [address] [facility] [place] CBC AND DIFF (AUTO) NEUTROPHIL S [#/VOLUME] IN BLOOD BY AUTOMATED COUNT 4.06 10*3/uL 2.20 - 7.60 04/07 Specimen Type: BLOOD No comment entered. Ordering Provider: JAMILA BARRON Report Released Date/Time: Apr 04, 2024 05:53 PM Reporting Lab: [facility] [place] [facility] [address] [facility] [address] Performing Lab: [facility] [place] [facility] [address] [facility] [address] [facility] [place] [facility] CBC AND DIFF (AUTO) LYMPHOCYTE S [#/VOLUME] IN BLOOD BY AUTOMATED COUNT 2.46 10*3/uL 1.00 - 3.20 04/07 Specimen Type: BLOOD No comment entered. Ordering Provider: JAMILA BARRON Report Released Date/Time: Apr 04, 2024 05:53 PM Reporting Lab: [facility] [place] [facility] [address] [facility] [address] Performing Lab: [facility] [place] [facility] [address] [facility] [address] [facility] [place] [facility] CBC AND DIFF (AUTO) EOSINOPHIL S [#/VOLUME] IN BLOOD BY AUTOMATED COUNT 0.18 10*3/uL 0.03 - 0.44 04/07 Specimen Type: BLOOD No comment entered. Ordering Provider: JAMILA BARRON Report Released Date/Time: Apr 04, 2024 05:53 PM Reporting Lab: [facility] [place] [facility] [address] [facility] [address] Performing Lab: [facility] [place] [facility] [address] [facility] [address] [facility] [place] [facility] CBC AND DIFF (AUTO) BASOPHILS [#/VOLUME] IN BLOOD BY AUTOMATED COUNT 0.05 10*3/uL 0.01 - 0.13 04/07 Specimen Type: BLOOD No comment entered. Ordering Provider: JAMILA BARRON Report Released Date/Time: Apr 04, 2024 05:53 PM Reporting Lab: [facility] [place] [facility] [address] [facility] [address] Performing Lab: [facility] [place] [address] [address] [facility] [place] [facility] CBC AND DIFF (AUTO) IMMATURE GRANULOCYT ES/100 LEUKOCYTES IN BLOOD BY AUTOMATED COUNT 0.5 0.0 - 0.7 04/07 Specimen Type: BLOOD No comment entered. Ordering Provider: JAMILA BARRON Report Released Date/Time: Apr 04, 2024 05:53 PM Reporting Lab: [facility] [place] [address] [address] Performing Lab: [facility] [place] [address] [address] [facility] [place] [facility] CBC AND DIFF (AUTO) IMMATURE GRANULOCYT ES [#/VOLUME] IN BLOOD 0.04 10*3/uL 0.00 - 0.06 04/07 Specimen Type: BLOOD No comment entered. Ordering Provider: JAMILA BARRON Report Released Date/Time: Apr 04, 2024 05:53 PM Reporting Lab: [facility] [place] [address] [address] Performing Lab: [facility] [place] [address] [address] [facility] [place] [facility] CBC AND DIFF (AUTO) NRBC % 0.0 0.0 - 0.0 04/07 Specimen Type: BLOOD No comment entered. Ordering Provider: JAMILA BARRON Report Released Date/Time: Apr 04, 2024 05:53 PM Reporting Lab: [facility] [place] [facility] [address] [facility] [address] Performing Lab: [facility] [place] [facility] [address] [facility] [address] [facility] [place] [facility] CBC AND DIFF (AUTO) NRBC, ABS 0.00 10*3/uL 0.00 - 0.00 04/07 Specimen Type: BLOOD No comment entered. Ordering Provider: JAMILA BARRON Report Released Date/Time: Apr 04, 2024 05:53 PM Reporting Lab: [facility] [place] [address] [address] Performing Lab: [facility] [place] [address] [address] [facility] [place] [facility] LIPID PANEL FASTING CHOLESTERO L [MASS/VOLU ME] IN SERUM OR PLASMA 139 mg/dL 04/07 Specimen Type: SERUM No comment entered. Ordering Provider: JAMILA BARRON Report Released Date/Time: Apr 04, 2024 05:53 PM Reporting Lab: [facility] [place] [address] [address] Performing Lab: [facility] [place] [address] [address] [facility] [place] [facility] LIPID PANEL FASTING TRIGLYCERI DE [MASS/VOLU ME] IN SERUM OR PLASMA 136 mg/dL 0 - 150 04/07 Specimen Type: SERUM No comment entered. Ordering Provider: JAMILA BARRON Report Released Date/Time: Apr 04, 2024 05:53 PM Reporting Lab: [facility] [place] [facility] [address] [facility] [address] Performing Lab: [facility] [address] [address] [facility] LIPID PANEL FASTING CHOLESTERO L IN LDL [MASS/VOLU ME] IN SERUM OR PLASMA BY CALCULATIO N 72 mg/dL 0 - 129 04/07 Specimen Type: SERUM No comment entered. Ordering Provider: JAMILA BARRON Report Released Date/Time: Apr 04, 2024 05:53 PM Reporting Lab: [facility] [place] [facility] [address] [facility] [address] Performing Lab: [facility] [place] [facility] [address] [facility] [address] [facility] [place] [facility] LIPID PANEL FASTING CHOLESTERO L.TOTAL/CH OLESTEROL IN HDL [MASS RATIO] IN SERUM OR PLASMA 3.5 04/07 Specimen Type: SERUM No comment entered. Ordering Provider: JAMILA BARRON Report Released Date/Time: Apr 04, 2024 05:53 PM Reporting Lab: [facility] [place] [facility] [address] [facility] [address] Performing Lab: [facility] [place] [address] [address] [facility] LIPID PANEL FASTING CHOLESTERO L IN HDL [MASS/VOLU ME] IN SERUM OR PLASMA 40 mg/dL 40 - 60 04/07 Specimen Type: SERUM No comment entered. Ordering Provider: JAMILA BARRON Report Released Date/Time: Apr 04, 2024 05:53 PM Reporting Lab: [facility] [place] [address] [address] Performing Lab: [facility] [place] [address] [address] [facility] LIVER FUNCTION PROTEIN [MASS/VOLU ME] IN SERUM OR PLASMA 6.8 g/dL 6.0 - 8.3 04/07 Specimen Type: SERUM No comment entered. Ordering Provider: JAMILA BARRON Report Released Date/Time: Apr 04, 2024 05:53 PM Reporting Lab: [facility] [facility] [place] [place] [address] [address] Performing Lab: [facility] [place] [address] [address] [facility] [place] [facility] LIVER FUNCTION ALBUMIN [MASS/VOLU ME] IN SERUM OR PLASMA 4.0 g/dL 3.5 - 5.0 04/07 Specimen Type: SERUM No comment entered. Ordering Provider: JAMILA BARRON Report Released Date/Time: Apr 04, 2024 05:53 PM Reporting Lab: [place] [facility] [facility] [address] [facility] [address] Performing Lab: [place] [facility] [place] [facility] [address] [facility] [address] [place] [facility] [facility] LIVER FUNCTION ALKALINE PHOSPHATAS E [ENZYMATIC ACTIVITY/V OLUME] IN SERUM OR PLASMA 118 U/L 40 - 150 04/07 Specimen Type: SERUM No comment entered. Ordering Provider: JAMILA BARRON Report Released Date/Time: Apr 04, 2024 05:53 PM Reporting Lab: [place] [facility] [place] [address] [address] Performing Lab: [place] [facility] [place] [address] [address] [place] [facility] [place] [facility] LIVER FUNCTION ASPARTATE AMINOTRANS FERASE [ENZYMATIC ACTIVITY/V OLUME] IN SERUM OR PLASMA 30 U/L 5 - 34 04/07 Specimen Type: SERUM No comment entered. Ordering Provider: JAMILA BARRON Report Released Date/Time: Apr 04, 2024 05:53 PM Reporting Lab: [place] [facility] [address] [address] Performing Lab: [place] [facility] [place] [facility] [address] [facility] [address] [place] [facility] [facility] LIVER FUNCTION ALANINE AMINOTRANS FERASE [ENZYMATIC ACTIVITY/V OLUME] IN SERUM OR PLASMA 23 U/L 04/07 Specimen Type: SERUM No comment entered. Ordering Provider: JAMILA BARRON Report Released Date/Time: Apr 04, 2024 05:53 PM Reporting Lab: [place] [facility] [place] [address] [address] Performing Lab: [place] [facility] [place] [address] [address] [facility] [place] [facility] LIVER FUNCTION BILIRUBIN. TOTAL [MASS/VOLU ME] IN SERUM OR PLASMA 1.0 mg/dL 0.2 - 1.2 04/07 Specimen Type: SERUM No comment entered. Ordering Provider: JAMILA BARRON Report Released Date/Time: Apr 04, 2024 05:53 PM Reporting Lab: [facility] [place] [address] [address] Performing Lab: [place] [facility] [address] [address] [facility] [place] [facility] TSH THYROTROPI N [UNITS/VOL UME] IN SERUM OR PLASMA 2.34 u[IU]/mL 0.35 - 5.00 04/07 Specimen Type: SERUM No comment entered. Ordering Provider: JAMILA BARRON Report Released Date/Time: Apr 04, 2024 05:53 PM Reporting Lab: [facility] [place] [address] [address] Performing Lab: [place] [facility] [address] [address] [facility] [place] [facility] URINALYS IS CLEAN CATCH COLOR OF URINE Yellow 04/07 Specimen Type: URINE Comment: If Glucose = >500 and Ketones are positive, please alert the Physician. Ordering Provider: JAMILA BARRON Report Released Date/Time: Apr 04, 2024 05:53 PM Reporting Lab: [facility] [place] [address] [address] Performing Lab: [place] [facility] [address] [address] [facility] [place] [facility] URINALYS IS CLEAN CATCH APPEARANCE OF URINE Clear 04/07 Specimen Type: URINE Comment: If Glucose = >500 and Ketones are positive, please alert the Physician. Ordering Provider: JAMILA BARRON Report Released Date/Time: Apr 04, 2024 05:53 PM Reporting Lab: [facility] [place] [address] [address] Performing Lab: [place] [facility] [place] [facility] [address] [facility] [address] [place] [facility] [place] [facility] URINALYS IS CLEAN CATCH GLUCOSE [MASS/VOLU ME] IN URINE Normalmg /dL 04/07 Specimen Type: URINE Comment: If Glucose = >500 and Ketones are positive, please alert the Physician. Ordering Provider: JAMILA BARRON Report Released Date/Time: Apr 04, 2024 05:53 PM Reporting Lab: [place] [facility] [place] [facility] [address] [facility] [address] Performing Lab: [facility] [place] [facility] [address] [facility] [address] [place] [facility] [place] [facility] URINALYS IS CLEAN CATCH KETONES [MASS/VOLU ME] IN URINE BY TEST STRIP NEGATIVE mg/dL 04/07 Specimen Type: URINE Comment: If Glucose = >500 and Ketones are positive, please alert the Physician. Ordering Provider: JAMILA BARRON Report Released Date/Time: Apr 04, 2024 05:53 PM Reporting Lab: [facility] [place] [facility] [address] [facility] [address] Performing Lab: [facility] [place] [facility] [address] [facility] [address] [facility] [place] [facility] URINALYS IS CLEAN CATCH ERYTHROCYT ES [PRESENCE] IN URINE SEDIMENT BY LIGHT MICROSCOPY NEGATIVE mg/dL 04/07 Specimen Type: URINE Comment: If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 RANCHO RODRIGUEZ 04/28 [facility] CONFORMITY EVALUATION [id number] Diagnos is: ICD-10- CM Z46.1 Encount er for fitting and adjustm ent of hearing aid Yossi HARRINGTON 05/05 [facility] Encounter [id number] 05/08 [facility] En[facility] [id number] 06/01 [facility]counter [id number] 06/03 [facility]counter [id number] 06/06 [facility] Out[facility] Encounter [id number]/16 [facility] Encounter [id number] 06/19 [facility] Out[facility] Encounter [id number] 06/25 [facility] Encounter [id number] 06/25 [facility] Encounter [id number] 06/26 [facility] Out[facility] Encounter [id number] 07/02 [facility] Out[facility] Encounter [id number] 07/06 [facility] Out[facility] Encounter [id number] 07/14 [facility] Encounter [id number] 07/14 [facility] Encounter [id number] 07/20 [facility] Outpatient Encounter [id number] 08/06 [facility] Outpatient Encounter [id number] 08/27 [facility] OFFICE O/P EST MOD 30 MIN [id number] Diagnos is: ICD-10- CM 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 Social History Type Response Date Comment [facility]ly [facility] e Tobacco smoking status NHIS VA-TOBACCO FORMER USER 10/16/2023 [facility] [place] History of tobacco use [place]-TOBACCO QUIT 15 YRS OR MORE 10/16/2023 [facility] [place] [facility] History of tobacco use VA-TOBACCO FORMER USER 07/04/2022 [facility] [place] [facility] History of tobacco use NSG NO TOBACCO USE PAST 30 DAYS 03/27/2022 [place] History of tobacco use NSG NO TOBACCO USE PAST 30 DAYS 03/05/2022 [place] History of tobacco use NSG NO TOBACCO USE PAST 30 DAYS 03/02/2022 [place] History of tobacco use VA-TOBACCO FORMER USER 06/28/2021 [facility] [place] [facility] History of tobacco use VA-TOBACCO FORMER USER 05/26/2020 [facility] [facility] History of tobacco use VA-TOBACCO NEVER USED 05/23/2018 [facility] [facility] Plan of Care List of future care activities from Department of Veterans Affairs facilities. Additional future care activities may be listed in the Assessment and Plan section. Date/Time Care Activity Care Activity Detail Facili ty 10/07/2024 AMBULATORY - MEDICINE AMBULATORY - MEDICI [facility] 10/28/2024 AMBULATORY - MEDICINE AMBULATORY - MEDICI [facility] Advance Directives List of completed, amended, or rescinded Advance Directives on record at Department of [facility] facilities. An actual copy of the Directive is not included. Date Advance Directive Provider Source 02/19/2022 ADVANCE DIRECTIVE JOCE CASTORENA [facility] 11/16/2020 ADVANCE DIRECTIVE BYRON BARRON [facility]
== END 2024-09-04 13:33 | disposition home or self-care (01) ==
LOC: HO.HOS 12:51
DX: M25.572 Pain in left ankle and joints of left foot (principal); S82.62XD Displaced fracture of lateral malleolus of left fibula, subsequent encounter for closed fracture with routine healing
CPT/HCPCS: 99213

== ENCOUNTER → 2024-09-04 12:59 | Outpatient (BNV) | payer MEDICARE, SELFPAY | PROVIDERS: Visit Provider Radiology Diagnostic Radiology | DX: M25.572 Pain in left ankle and joints of left foot (principal) | CPT/HCPCS: 73610 ==

== ENCOUNTER 2024-09-11 11:23 | Outpatient (REF) | payer OTHER, SELFPAY ==
--- NOTE | ~2024-09-11 | XR_ITS ---
EXAMINATION: XR ANKLE 3 OR MORE VIEWS LEFT HISTORY: M25.572 - Pain in left ankle and joints of left foot COMPARISON: Comparison is made with the prior examination dated 09/04/2024. FINDINGS: Three views of the left ankle are submitted. The patient is again noted to be status post internal fixation of the distal fibula with a sideplate and multiple orthopedic screws a button is again noted along the medial malleolus. There is marked demineralization. Again seen is irregularity of the tibiotalar joint suggestive of infection. There is diffuse soft tissue swelling. XR/XR ankle LT min 3V IMPRESSION: Internal fixation of the left ankle as described. Findings of probable septic arthritis not significantly changed. Electronically signed by: Chuy Rosenthal MD 09/14/2024 09:38 AM PAN[facility] WOMACK
--- OUTSIDE RECORDS SUMMARY | 2024-09-11 13:33 | XMS_ITS | Patient Health Record ---
Author Organization [facility] [place] Address [address] [place] [address] Care Team Providers Care Playground Supervisor Name Role Phone Josue Simmons MD Primary Care Provider Lyn Aquino Unavailable [phone] Allergies Allergen (clinical drug ingredient) Drug/Non Drug [...] primary osteoarthritis of the ankle and/or foot ([id number]) Primary osteoarthrit is, right ankle and foot (M19.071) Active confirmed Encounters Encounter Location Date Provider Diagnosis [facility] [place] [address] [place] [address] 03/09/2024 Lyn Lund [facility] [place] [address] [facility] [place] [address] 03/12/2024 Lyn Lund [facility] [place] [address] [facility] [place] [address] 04/02/2024 Lyn Lund Plan Of Treatment Pending Test Test Name Order Date X ray : Foot, right 3V 01/20/2015 X ray : Ankle, right 3V 03/04/2017 Insurance Providers Payer Name Payer Address Payer Phone Subscriber Number Group Number Insured Name Patient Relationship to Insured Coverage Start Date Coverage End Date Medicare [employer] [address] [place] [address] [id number] Reed Mallory Self - patient is the insured [employer] [id number] [place] [address] Reed Mallory Self - patient is the [...]
--- OUTSIDE RECORDS SUMMARY | 2024-09-11 13:33 | XMS_ITS | Encounter Summary ---
Author Organization [facility] Address [address] [place] [address] Care Team Providers Care Nursing Home Administrator Name Role Phone Adam Noonan MD Primary Care Provider Unava ilable Reason for Visit * Reason Onset Date Comments Medication 02/11/2018 Encounter Details Date Type Department Care Team Description 02/11/2018 Telephone Pulmonology - [place] [address] [facility] [address] [place] [address] Eric Tucker MD Medication Social [...] Primary documented in this encounter Care Teams Nursing Home Administrator Relationship Specialty Start Date End Date Adam Noonan MD PCP - General Internal Medicine 11/19/17 documented as of this encounter
--- OUTSIDE RECORDS SUMMARY | 2024-09-11 13:33 | XMS_ITS ---
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 Generated for Printi ng/Famichaelg/eTransmitting on:?09/11/2024 01:33 PM EST
--- OUTSIDE RECORDS SUMMARY | 2024-09-11 13:33 | XMS_ITS | Continuity of Care Document ---
Author Name [facility] Organization [facility] Care Team Providers Care Data Integration Developer Name Role Phone [facility] Unavailable Unavailable Problems Combined list of problems from Department of Defense and Veterans Affairs facilities. It does not include entries that were removed or entered in error. Problem Status Onset Date Problem Type Date of Resolution Comments Source Chronic dermatitis Active 023 Condition Oct 05, 2022 Entered By: BYRON BARRON Comment: referred to dermatology [facility] Chest Pain (SCT [id number]) Active Condition Jan 02, 2022 Entered By: BYRON BARRON Comment: ordered stress test [facility] COPD - Chronic Obstructive Pulmonary Disease (SCT [id number]) Active Condition Dec 28, 2021 Entered By: BYRON BARRON Comment: on inhalers [facility] Cataract Active Condition Oct 12, 2020 Entered By: BYRON BARRON Comment: referred for surgery [facility] HTN - Hypertension (SCT [id number]) Active Condition Oct 21, 2020 Entered By: BYRON BARRON Comment: treated witn medication [facility] Hypercholesterolemia (SCT [id number]) Active Condition Oct 21, 2020 Entered By: [...] TWICE DAILY FOR INFECTIO N ORAL 11/15/2023 [id number] MAUREEN BARRON D 2023 20 [facility] ASPIRIN 81MG TAB,CHEWABL E CHEW ONE TABLET BY MOUTH ONCE DAILY ORAL ACTIVE JANINE HAMMOND R 2021 [facility] ATORVASTATI N CA 80MG TAB TAKE ONE TABLET BY MOUTH AT BEDTIME ORAL ACTIVE 06/26/2025 [id number] MAUREEN BARRON D 2023 90 [facility] ATORVASTATI N CA 80MG TAB TAKE ONE TABLET BY MOUTH AT BEDTIME ORAL DISCONT INUED 06/19/2024 [id number] MOHAMUD ARGUETA 2022 90 [facility] CARBOXYMETH YLCELLULOSE NA 0.5% SOLN,OPH INSTILL 1 DROP INTO EACH EYE FOUR TIMES A DAY FOR DRY EYE OPHTHA LMIC ACTIVE 09/02/2025 [id number] OSBALDO CALDERON EY J 2024 45 [facility] CEPHALEXIN 500MG CAP TAKE ONE CAPSULE BY MOUTH EVERY 8 HOURS FOR INFECTIO N ORAL 04/04/2024 [id number] 4 MAMTA STERN 2023 21 [facility] EYELID CLEANSER,EY E SCRUB PAD USE 1 PAD TOPICALL Y EVERY MORNING BLEPHARI TIS TOPICA L ACTIVE 09/02/2025 [id number] 5 OSBALDO CALDERON EY J 2024 90 [facility] EZETIMIBE 10MG TAB TAKE ONE TABLET BY MOUTH ONCE DAILY TO LOWER CHOLESTE ROL ORAL ACTIVE 06/26/2025 [id number] 4 MAUREEN BARRON D 2023 90 [facility] EZETIMIBE 10MG TAB TAKE ONE TABLET BY MOUTH ONCE DAILY TO LOWER CHOLESTE ROL ORAL DISCONT INUED 06/19/2024 [id number] KENDALL,MOHAMUD AV 2022 90 [facility] HYDROCHLORO THIAZIDE 25MG TAB TAKE ONE TABLET BY MOUTH ONCE DAILY ORAL 06/19/2024 [id number] KENDALL,MOHAMUD AV 2023 90 [facility] METOPROLOL SUCCINATE 50MG TAB,SA TAKE ONE TABLET BY MOUTH ONCE DAILY FOR BLOOD PRESSURE /HEART ORAL ACTIVE 06/26/2025 [id number] 4 MAUREEN BARRON PAIGE D 2023 90 [facility] METOPROLOL SUCCINATE 50MG TAB,SA TAKE ONE TABLET BY MOUTH ONCE DAILY FOR BLOOD PRESSURE /HEART ORAL DISCONT INUED 06/19/2024 [id number] KENDALL,MOHAMUD AV 2022 90 [facility] TRIAMCINOLO NE ACETONIDE 0.1% CREAM,TOP APPLY A MODERATE AMOUNT TOPICALL Y TWICE DAILY NEEDED FOR ITCHING TOPICA L ACTIVE 10/24/2024 [id number] 4 MAUREEN BARRON PAIGE D 2023 454 [facility] Allergies, Adverse Reactions, Alerts Combined list of allergies from Department of Defense and Veterans Affairs facilities. It does not include entries that were removed or entered in error. Substance Category Reaction Severity Reaction type Status Date Reported Comments Source LIDOCAINE Propensity to adverse reactions to drug (finding) Itching MODERATE active 2 [facility] NOVOCAIN Propensity to adverse reactions to drug (finding) Feeling agitated active 8 [facility] PROCAINE Propensity to adverse reactions to drug (finding) active 2 [facility] Immunizations Combined list of available immunizations from the Department of Defense and Veterans Affairs facilities. Immunization Series Date Given Administered By Site Reaction Lot Number CVX Code Drug Machine Stoppage Frequency Checker Status Comments Source COVID-19 (MODERNA), MRNA, LNP-S, PF, 50 MCG/0.5 ML (AGES 12+ YEARS) 7 2023 ALMA MAHER LEFT DELTO ID [id number] 312 complet ed [facility] INFLUENZA, HIGH-DOSE, TRIVALENT, PF 2023 ALMA MAHER M LEFT DELTO ID [id number] 135 complet ed [facility] RSV, BIVALENT, PROTEIN SUBUNIT RSVPREF, DILUENT RECONSTITUTED , 0.5 ML, PF 1 2023 GRETCHEN ANDRADE E LEFT DELTO ID [id number] 305 complet ed [facility] COVID-19 (MODERNA), MRNA, LNP-S, PF, 50 MCG/0.5 ML (AGES 12+ YEARS) 1 2023 GRETCHEN ANDRADE E LEFT DELTO ID [id number] 312 complet ed [facility] INFLUENZA, HIGH-DOSE, QUADRIVALENT 2022 JERRI SHAIKH M LEFT DELTO ID [id number] 197 complet ed [facility] COVID-19 (MODERNA), MRNA, LNP-S, BIVALENT BOOSTER, PF, 50 MCG/0.5 ML OR 25MCG/0.25 ML DOSE 2021 JERRI SHAIKH ER M LEFT DELTO ID [id number] 229 complet ed [facility] INFLUENZA VACCINE, QUADRIVALENT, ADJUVANTED 2021 205 complet ed [facility] COVID-19 (MODERNA), MRNA, LNP-S, PF, 100 MCG/0.5ML DOSE OR 50 MCG/0.25ML DOSE 3 2021 207 complet ed MOD; [id number] ; 2 [facility] PNEUMOCOCCAL CONJUGATE PCV20, POLYSACCHARID E [id number] CONJUGATE, ADJUVANT, PF 2021 216 complet ed [facility] COVID-19 (MODERNA), MRNA, LNP-S, PF, 100 MCG OR 50 MCG DOSE 3 2020 207 complet ed MOD; [id number]; 2 [facility] INFLUENZA, UNSPECIFIED FORMULATION 2020 88 complet ed [facility] TDAP 2020 115 complet ed [facility] COVID-19 (MODERNA), MRNA, LNP-S, PF, 100 MCG/0.5 ML DOSE 2 2020 207 complet ed MOD; [id number]; 1 [facility] COVID-19 (MODERNA), MRNA, LNP-S, PF, 100 MCG/0.5 ML DOSE 1 2020 207 complet ed MOD; [id number]; 1 [facility] [...] [facility]. Administe red by: ARLET BOLTON (WMG=[phone]). Partner 0 Lot#: [id number] Mfr: Sanofi Pasteur; Dosage: 0.5 [facility] PNEUMOCOCCAL POLYSACCHARID E PPV23 2016 33 complet ed Partner: [facility]. Administe red by: ARLET BOLTON (TRQ=[phone]). Partner 0 Lot#: [id number] Mfr: Crucell; Dosage: 0.5 [facility] INFLUENZA, HIGH DOSE SEASONAL 2016 135 complet ed [facility] Administe red by: ARLET BOLTON (UGL=[phone]). Partner 0 Lot#: [id number] Mfr: Sanofi Pasteur; Dosage: 0.5 [facility] Results Combined list of recent [...] 04, 2024 05:53 PM Reporting Lab: [facility] [place] [address] [address] Performing Lab: [facility] [place] [address] [address] [facility] BASIC METABOLI C PANEL (fasting ) GLUCOSE [MASS/VOLU ME] IN SERUM OR PLASMA 93 mg/dL 65 - 100 04/07 Specimen Type: SERUM No comment entered. Ordering Provider: JAMILA BARRON Report Released Date/Time: Apr 04, 2024 05:53 PM Reporting Lab: [facility] [place] [address] [address] Performing Lab: [facility] [place] [address] [address] [facility] BASIC METABOLI C PANEL (fasting ) SODIUM [MOLES/VOL UME] IN SERUM OR PLASMA 139 mmol/L 135 - 145 04/07 Specimen Type: SERUM No comment entered. Ordering Provider: JAMILA BARRON Report Released Date/Time: Apr 04, 2024 05:53 PM Reporting Lab: [facility] [place] [facility] [address] [facility] [address] Performing Lab: [facility] [place] [address] [address] [facility] [facility] BASIC METABOLI C PANEL (fasting ) POTASSIUM [MOLES/VOL UME] IN SERUM OR PLASMA 3.9 mmol/L 3.5 - 5.0 04/07 Specimen Type: SERUM No comment entered. Ordering Provider: JAMILA BARRON Report Released Date/Time: Apr 04, 2024 05:53 PM Reporting Lab: [facility] [address] [address] Performing Lab: [facility] [address] [address] [facility] BASIC METABOLI C PANEL (fasting ) CHLORIDE [MOLES/VOL UME] IN SERUM OR PLASMA 102 mmol/L 100 - 110 04/07 Specimen Type: SERUM No comment entered. Ordering Provider: JAMILA BARRON Report Released Date/Time: Apr 04, 2024 05:53 PM Reporting Lab: [facility] [address] [address] Performing Lab: [facility] [address] [facility] BASIC METABOLI C PANEL (fasting ) CARBON DIOXIDE, TOTAL [MOLES/VOL UME] IN SERUM OR PLASMA 26 meq/L 20 - 30 04/07 Specimen Type: SERUM No comment entered. Ordering Provider: JAMILA BARRON Report Released Date/Time: Apr 04, 2024 05:53 PM Reporting Lab: [facility] [address] [address] Performing Lab: [facility] [address] [facility] BASIC METABOLI C PANEL (fasting ) CREATININE [MASS/VOLU ME] IN SERUM OR PLASMA 0.92 mg/dL 0.50 - 1.40 04/07 Specimen Type: SERUM No comment entered. Ordering Provider: JAMILA BARRON Report Released Date/Time: Apr 04, 2024 05:53 PM Reporting Lab: [facility] [address] [address] Performing Lab: [facility] [address] [facility] [place] BASIC METABOLI C PANEL (fasting ) GLOMERULAR FILTRATION RATE/1.73 SQ M.PREDICTE D [VOLUME RATE/AREA] IN SERUM, PLASMA OR BLOOD BY CREATININE -BASED FORMULA (CKD-EPI 2020) 82 mL/min 60 04/07 Specimen Type: SERUM No comment entered. Ordering Provider: JAMILA BARRON Report Released Date/Time: Apr 04, 2024 05:53 PM Reporting Lab: [facility] [place] [facility] [address] [facility] [address] Performing Lab: [facility] [place] [facility] [address] [facility] [facility] [address] [facility] [place] [facility] LIVER FUNCTION PROTEIN [MASS/VOLU ME] IN SERUM OR PLASMA 6.8 g/dL 6.0 - 8.3 04/07 Specimen Type: SERUM No comment entered. Ordering Provider: JAMILA BARRON Report Released Date/Time: Apr 04, 2024 05:53 PM Reporting Lab: [facility] [place] [facility] [address] [facility] [address] Performing Lab: [facility] [place] [facility] [address] [facility] [address] [facility] LIVER FUNCTION ALBUMIN [MASS/VOLU ME] IN SERUM OR PLASMA 4.0 g/dL 3.5 - 5.0 04/07 Specimen Type: SERUM No comment entered. Ordering Provider: JAMILA BARRON Report Released Date/Time: Apr 04, 2024 05:53 PM Reporting Lab: [facility] [place] [facility] [address] [facility] [address] Performing Lab: [facility] [place] [facility] [address] [facility] [facility] [address] [facility] LIVER FUNCTION ALKALINE PHOSPHATAS E [ENZYMATIC ACTIVITY/V OLUME] IN SERUM OR PLASMA 118 U/L 40 - 150 04/07 Specimen Type: SERUM No comment entered. Ordering Provider: JAMILA BARRON Report Released Date/Time: Apr 04, 2024 05:53 PM Reporting Lab: [facility] [place] [facility] [address] [facility] [address] Performing Lab: [facility] [place] [facility] [address] [facility] [address] [facility] [place] [facility] LIVER FUNCTION ASPARTATE AMINOTRANS FERASE [ENZYMATIC ACTIVITY/V OLUME] IN SERUM OR PLASMA 30 U/L 5 - 34 04/07 Specimen Type: SERUM No comment entered. Ordering Provider: JAMILA BARRON Report Released Date/Time: Apr 04, 2024 05:53 PM Reporting Lab: [facility] [place] [facility] [address] [facility] [address] Performing Lab: [facility] [place] [facility] [address] [facility] [address] [facility] LIVER FUNCTION ALANINE AMINOTRANS FERASE [ENZYMATIC ACTIVITY/V OLUME] IN SERUM OR PLASMA 23 U/L 04/07 Specimen Type: SERUM No comment entered. Ordering Provider: JAMILA BARRON Report Released Date/Time: Apr 04, 2024 05:53 PM Reporting Lab: [facility] [place] [facility] [address] [facility] [address] Performing Lab: [facility] [place] [facility] [address] [facility] [address] [facility] LIVER FUNCTION BILIRUBIN. TOTAL [MASS/VOLU ME] IN SERUM OR PLASMA 1.0 mg/dL 0.2 - 1.2 04/07 Specimen Type: SERUM No comment entered. Ordering Provider: JAMILA BARRON Report Released Date/Time: Apr 04, 2024 05:53 PM Reporting Lab: [facility] [place] [facility] [address] [facility] [address] Performing Lab: [facility] [place] [facility] [address] [facility] [facility] [address] [facility] LIPID PANEL FASTING CHOLESTERO L [MASS/VOLU ME] IN SERUM OR PLASMA 139 mg/dL 04/07 Specimen Type: SERUM No comment entered. Ordering Provider: JAMILA BARRON Report Released Date/Time: Apr 04, 2024 05:53 PM Reporting Lab: [facility] [place] [facility] [address] [facility] [address] Performing Lab: [facility] [address] [facility] [address] [facility] [place] [facility] LIPID PANEL FASTING TRIGLYCERI DE [MASS/VOLU ME] IN SERUM OR PLASMA 136 mg/dL 0 - 150 04/07 Specimen Type: SERUM No comment entered. Ordering Provider: JAMILA BARRON Report Released Date/Time: Apr 04, 2024 05:53 PM Reporting Lab: [facility] [place] [facility] [address] [facility] [address] Performing Lab: [facility] [place] [facility] [address] [facility] [address] [facility] [place] [facility] LIPID PANEL FASTING CHOLESTERO L IN LDL [MASS/VOLU ME] IN SERUM OR PLASMA BY CALCULAMARCIE N 72 mg/dL 0 - 129 04/07 Specimen Type: SERUM No comment entered. Ordering Provider: JAMILA BARRON Report Released Date/Time: Apr 04, 2024 05:53 PM Reporting Lab: [facility] [place] [facility] [address] [facility] [address] Performing Lab: [facility] [place] [facility] [address] [facility] [address] [facility] LIPID PANEL FASTING CHOLESTERO L.TOTAL/CH OLESTEROL IN HDL [MASS RATIO] IN SERUM OR PLASMA 3.5 04/07 Specimen Type: SERUM No comment entered. Ordering Provider: JAMILA BARRON Report Released Date/Time: Apr 04, 2024 05:53 PM Reporting Lab: [facility] [place] [facility] [address] [facility] [address] Performing Lab: [facility] [place] [facility] [address] [facility] [address] [facility] [place] LIPID PANEL FASTING CHOLESTERO L IN HDL [MASS/VOLU ME] IN SERUM OR PLASMA 40 mg/dL 40 - 60 04/07 Specimen Type: SERUM No comment entered. Ordering Provider: JAMILA BARRON Report Released Date/Time: Apr 04, 2024 05:53 PM Reporting Lab: [facility] [place] [facility] [address] [facility] [address] Performing Lab: [facility] [place] [facility] [address] [facility] [address] [facility] [place] [facility] CBC AND DIFF (AUTO) LEUKOCYTES [#/VOLUME] IN BLOOD BY AUTOMATED COUNT 7.77 10*3/uL 4.50 - 11.00 04/07 Specimen Type: BLOOD No comment entered. Ordering Provider: JAMILA BARRON Report Released Date/Time: Apr 04, 2024 05:53 PM Reporting Lab: [facility] [place] [facility] [address] [facility] [address] Performing Lab: [facility] [place] [facility] [address] [facility] [address] [facility] [place] [facility] CBC AND DIFF (AUTO) ERYTHROCYT ES [#/VOLUME] IN BLOOD BY AUTOMATED COUNT 4.29 10*6/uL 4.23 - 5.66 04/07 Specimen Type: BLOOD No comment entered. Ordering Provider: JAMILA BARRON Report Released Date/Time: Apr 04, 2024 05:53 PM Reporting Lab: [facility] [place] [facility] [address] [facility] [address] Performing Lab: [facility] [place] [facility] [address] [facility] [address] [facility] [place] CBC AND DIFF (AUTO) HEMOGLOBIN [MASS/VOLU ME] IN BLOOD 14.2 g/dL 12.8 - 17 04/07 Specimen Type: BLOOD No comment entered. Ordering Provider: JAMILA BARRON Report Released Date/Time: Apr 04, 2024 05:53 PM Reporting Lab: [facility] [place] [facility] [address] [facility] [address] Performing Lab: [facility] [place] [facility] [address] [facility] [address] [facility] [place] CBC AND DIFF (AUTO) HEMATOCRIT [VOLUME FRACTION] OF BLOOD BY AUTOMATED COUNT 41.1 39.2 - 50.4 04/07 Specimen Type: BLOOD No comment entered. Ordering Provider: JAMILA BARRON Report Released Date/Time: Apr 04, 2024 05:53 PM Reporting Lab: [facility] [place] [address] [address] Performing Lab: [facility] [place] [address] [address] [facility] [place] [facility] CBC AND DIFF (AUTO) MCV [ENTITIC VOLUME] BY AUTOMATED COUNT 95.8 fL 82 - 99 04/07 Specimen Type: BLOOD No comment entered. Ordering Provider: JAMILA BARRON Report Released Date/Time: Apr 04, 2024 05:53 PM Reporting Lab: [facility] [place] [address] [address] Performing Lab: [facility] [place] [address] [address] [facility] [facility] CBC AND DIFF (AUTO) MCHC [MASS/VOLU ME] BY AUTOMATED COUNT 34.5 g/dL 30.8 - 35.1 04/07 Specimen Type: BLOOD No comment entered. Ordering Provider: JAMILA BARRON Report Released Date/Time: Apr 04, 2024 05:53 PM Reporting Lab: [facility] [place] [address] [address] Performing Lab: [facility] [place] [address] [address] [facility] [place] [facility] CBC AND DIFF (AUTO) PLATELETS [#/VOLUME] IN BLOOD BY AUTOMATED COUNT 184 10*3/uL 140 - 360 04/07 Specimen Type: BLOOD No comment entered. Ordering Provider: JAMILA BARRON Report Released Date/Time: Apr 04, 2024 05:53 PM Reporting Lab: [facility] [place] [address] [address] Performing Lab: [facility] [place] [facility] [address] [facility] [address] [facility] [place] [facility] CBC AND DIFF (AUTO) ERYTHROCYT E DISTRIBUTI ON WIDTH [RATIO] BY AUTOMATED COUNT 13.1 12.0 - 16.0 04/07 Specimen Type: BLOOD No comment entered. Ordering Provider: JAMILA BARRON Report Released Date/Time: Apr 04, 2024 05:53 PM Reporting Lab: [facility] [place] [facility] [address] [facility] [address] Performing Lab: [facility] [place] [facility] [address] [facility] [address] [facility] [place] [facility] CBC AND DIFF (AUTO) MONOCYTES [#/VOLUME] IN BLOOD BY AUTOMATED COUNT 0.98 10*3/uL 0.30 - 1.10 04/07 Specimen Type: BLOOD No comment entered. Ordering Provider: JAMILA BARRON Report Released Date/Time: Apr 04, 2024 05:53 PM Reporting Lab: [facility] [place] [facility] [address] [facility] [address] Performing Lab: [facility] [place] [facility] [address] [facility] [address] [facility] [place] [facility] CBC AND DIFF (AUTO) MCH [ENTITIC MASS] BY AUTOMATED COUNT 33.1 pg 26.2 - 32.6 04/07 H Specimen Type: BLOOD No comment entered. Ordering Provider: JAMILA BARRON Report Released Date/Time: Apr 04, 2024 05:53 PM Reporting Lab: [facility] [place] [facility] [address] [facility] [address] Performing Lab: [facility] [place] [address] [address] [facility] [place] [facility] CBC AND DIFF (AUTO) NEUTROPHIL S/100 LEUKOCYTES IN BLOOD BY AUTOMATED COUNT 52.3 43.7 - 75.8 04/07 Specimen Type: BLOOD No comment entered. Ordering Provider: JAMILA BARRON Report Released Date/Time: Apr 04, 2024 05:53 PM Reporting Lab: [facility] [address] [facility] [address] Performing Lab: [facility] [place] [facility] [address] [facility] [address] [facility] CBC AND DIFF (AUTO) LYMPHOCYTE S/100 LEUKOCYTES IN BLOOD BY AUTOMATED COUNT 31.7 14.0 - 42.3 04/07 Specimen Type: BLOOD No comment entered. Ordering Provider: JAMILA BARRON Report Released Date/Time: Apr 04, 2024 05:53 PM Reporting Lab: [facility] [address] [facility] [address] Performing Lab: [facility] [place] [facility] [address] [facility] [address] [facility] [place] [facility] CBC AND DIFF (AUTO) MONOCYTES/ 100 LEUKOCYTES IN BLOOD BY AUTOMATED COUNT 12.6 5.1 - 13.7 04/07 Specimen Type: BLOOD No comment entered. Ordering Provider: JAMILA BARRON Report Released Date/Time: Apr 04, 2024 05:53 PM Reporting Lab: [facility] [place] [facility] [address] [facility] [address] Performing Lab: [facility] [place] [facility] [address] [facility] [address] [facility] [place] [facility] CBC AND DIFF (AUTO) EOSINOPHIL S/100 LEUKOCYTES IN BLOOD BY AUTOMATED COUNT 2.3 0.4 - 6.8 04/07 Specimen Type: BLOOD No comment entered. Ordering Provider: JAMILA BARRON Report Released Date/Time: Apr 04, 2024 05:53 PM Reporting Lab: [facility] [place] [facility] [address] [facility] [address] Performing Lab: [facility] [place] [facility] [address] [facility] [address] [facility] [place] [facility] CBC AND DIFF (AUTO) BASOPHILS/ 100 LEUKOCYTES IN BLOOD BY AUTOMATED COUNT 0.6 0.1 - 2.0 04/07 Specimen Type: BLOOD No comment entered. Ordering Provider: JAMILA BARRON Report Released Date/Time: Apr 04, 2024 05:53 PM Reporting Lab: [facility] [place] [facility] [address] [facility] [address] Performing Lab: [facility] [place] [facility] [address] [facility] [address] [facility] [place] [facility] CBC AND DIFF (AUTO) NEUTROPHIL S [#/VOLUME] IN BLOOD BY AUTOMATED COUNT 4.06 10*3/uL 2.20 - 7.60 04/07 Specimen Type: BLOOD No comment entered. Ordering Provider: JAMILA BARRON Report Released Date/Time: Apr 04, 2024 05:53 PM Reporting Lab: [facility] [place] [facility] [address] [facility] [address] Performing Lab: [facility] [place] [facility] [address] [facility] [address] [facility] [place] [facility] AND DIFF (AUTO) LYMPHOCYTE S [#/VOLUME] IN BLOOD BY AUTOMATED COUNT 2.46 10*3/uL 1.00 - 3.20 04/07 Specimen Type: BLOOD No comment entered. Ordering Provider: JAMILA BARRON Report Released Date/Time: Apr 04, 2024 05:53 PM Reporting Lab: [facility] [place] [facility] [address] [facility] [address] Performing Lab: [facility] [place] [facility] [address] [facility] [address] [facility] CBC AND DIFF (AUTO) EOSINOPHIL S [#/VOLUME] IN BLOOD BY AUTOMATED COUNT 0.18 10*3/uL 0.03 - 0.44 04/07 Specimen Type: BLOOD No comment entered. Ordering Provider: JAMILA BARRON Report Released Date/Time: Apr 04, 2024 05:53 PM Reporting Lab: [facility] [place] [facility] [address] [facility] [address] Performing Lab: [facility] [place] [facility] [address] [facility] [address] [facility] CBC AND DIFF (AUTO) BASOPHILS [#/VOLUME] IN BLOOD BY AUTOMATED COUNT 0.05 10*3/uL 0.01 - 0.13 04/07 Specimen Type: BLOOD No comment entered. Ordering Provider: JAMILA BARRON Report Released Date/Time: Apr 04, 2024 05:53 PM Reporting Lab: [facility] [place] [address] [address] Performing Lab: [facility] [place] [address] [address] [facility] [place] [facility] CBC AND DIFF (AUTO) IMMATURE GRANULOCYT ES/100 LEUKOCYTES IN BLOOD BY AUTOMATED COUNT 0.5 0.0 - 0.7 04/07 Specimen Type: BLOOD No comment entered. Ordering Provider: JAMILA BARRON Report Released Date/Time: Apr 04, 2024 05:53 PM Reporting Lab: [facility] [place] [address] [address] Performing Lab: [facility] [place] [address] [address] [facility] [place] [facility] CBC AND DIFF (AUTO) IMMATURE GRANULOCYT ES [#/VOLUME] IN BLOOD 0.04 10*3/uL 0.00 - 0.06 04/07 Specimen Type: BLOOD No comment entered. Ordering Provider: JAMILA BARRON Report Released Date/Time: Apr 04, 2024 05:53 PM Reporting Lab: [facility] [place] [address] [address] Performing Lab: [facility] [place] [address] [address] [facility] [place] [facility] CBC AND DIFF (AUTO) NRBC % 0.0 0.0 - 0.0 04/07 Specimen Type: BLOOD No comment entered. Ordering Provider: JAMILA BARRON Report Released Date/Time: Apr 04, 2024 05:53 PM Reporting [facility] [address] [address] Performing Lab: [facility] [place] [address] [address] [facility] [place] [facility] CBC AND DIFF (AUTO) NRBC, ABS 0.00 10*3/uL 0.00 - 0.00 04/07 Specimen Type: BLOOD No comment entered. Ordering Provider: JAMILA BARRON Report Released Date/Time: Apr 04, 2024 05:53 PM Reporting Lab: [facility] [place] [address] [address] Performing Lab: [facility] [place] [address] [address] [facility] [place] [facility] TSH THYROTROPI N [UNITS/VOL UME] IN SERUM OR PLASMA 2.34 u[IU]/mL 0.35 - 5.00 04/07 Specimen Type: SERUM No comment entered. Ordering Provider: JAMILA BARRON Report Released Date/Time: Apr 04, 2024 05:53 PM Reporting Lab: [facility] [place] [address] [address] Performing Lab: [facility] [place] [address] [address] [facility] [place] [facility] URINALYS IS CLEAN CATCH COLOR OF URINE Yellow 04/07 Specimen Type: URINE Comment: If Glucose = >500 and Ketones are positive, please alert the Physician. Ordering Provider: JAMILA BARRON Report Released Date/Time: Apr 04, 2024 05:53 PM Reporting Lab: [facility] [place] [address] [address] Performing Lab: [facility] [place] [address] [address] [facility] [place] [facility] URINALYS IS CLEAN CATCH APPEARANCE OF URINE Clear 04/07 Specimen Type: URINE Comment: If Glucose = >500 and Ketones are positive, please alert the Physician. Ordering Provider: JAMILA BARRON Report Released Date/Time: Apr 04, 2024 05:53 PM Reporting Lab: [facility] [place] [address] [address] Performing Lab: [facility] [place] [facility] [address] [facility] [address] [facility] URINALYS IS CLEAN CATCH GLUCOSE [MASS/VOLU ME] IN URINE Normalmg /dL 04/07 Specimen Type: URINE Comment: If Glucose = >500 and Ketones are positive, please alert the Physician. Ordering Provider: JAMILA BARRON Report Released Date/Time: Apr 04, 2024 05:53 PM Reporting Lab: [facility] [place] [facility] [address] [facility] [address] Performing Lab: [facility] [place] [facility] [address] [facility] [address] [facility] [place] [facility] URINALYS IS CLEAN CATCH KETONES [MASS/VOLU ME] IN URINE BY TEST STRIP NEGATIVE mg/dL 04/07 Specimen Type: URINE Comment: If Glucose = >500 and Ketones are positive, please alert the Physician. Ordering Provider: JAMILA BARRON Report Released Date/Time: Apr 04, 2024 05:53 PM Reporting Lab: [facility] [place] [facility] [address] [facility] [address] Performing Lab: [facility] [place] [facility] [address] [facility] [address] [facility] [place] URINALYS IS CLEAN CATCH ERYTHROCYT ES [PRESENCE] IN URINE SEDIMENT BY LIGHT MICROSCOPY NEGATIVE mg/dL 04/07 Specimen Type: URINE Comment: If Glucose = >500 and Ketones are positive, please alert the Physician. Ordering Provider: JAMILA BARRON Report Released Date/Time: Apr 04, 2024 05:53 PM Reporting Lab: [facility] [place] [address] [address] Performing Lab: [facility] [place] [address] [address] [facility] URINALYS IS CLEAN CATCH PROTEIN [MASS/VOLU ME] IN URINE BY TEST STRIP 10 mg/dL 04/07 Specimen Type: URINE Comment: If Glucose = >500 and Ketones are positive, please alert the Physician. Ordering Provider: JAMILA BARRON Report Released Date/Time: Apr 04, 2024 05:53 PM Reporting Lab: [facility] [place] [facility] [address] [facility] [address] Performing Lab: [facility] [place] [facility] [address] [facility] [address] [facility] URINALYS IS CLEAN CATCH NITRITE [PRESENCE] IN URINE NEGATIVE mg/dL 04/07 Specimen Type: URINE Comment: If Glucose = >500 and Ketones are positive, please alert the Physician. Ordering Provider: JAMILA BARRON Report Released Date/Time: Apr 04, 2024 05:53 PM Reporting Lab: [facility] [place] [facility] [address] [facility] [address] Performing Lab: [facility] [place] [facility] [address] [facility] [address] [facility] [place] URINALYS IS CLEAN CATCH BILIRUBIN. TOTAL [PRESENCE] IN URINE NEGATIVE mg/dL 04/07 Specimen Type: URINE Comment: If Glucose = >500 and Ketones are positive, please alert the Physician. Ordering Provider: JAMILA BARRON Report Released Date/Time: Apr 04, 2024 05:53 PM Reporting Lab: [facility] [place] [facility] [address] [facility] [address] Performing Lab: [facility] [place] [facility] [address] [facility] [address] [facility] [place] URINALYS IS CLEAN CATCH SPECIFIC GRAVITY OF URINE BY REFRACTOME TRY 1.024 1.016 - 1.022 04/07 H Specimen Type: URINE Comment: If Glucose = >500 and Ketones are positive, please alert the Physician. Ordering Provider: JAMILA BARRON Report Released Date/Time: Apr 04, 2024 05:53 PM Reporting Lab: [facility] [place] [facility] [address] [facility] [address] Performing Lab: [facility] [place] [facility] [address] [facility] [address] [facility] URINALYS IS CLEAN CATCH PH OF URINE BY TEST STRIP 7.0 5.0 - 9.0 04/07 Specimen Type: URINE Comment: If Glucose = >500 and Ketones are positive, please alert the Physician. Ordering Provider: JAMILA BARRON Report Released Date/Time: Apr 04, 2024 05:53 PM Reporting Lab: [facility] [address] [facility] [address] Performing Lab: [facility] [address] [facility] [address] [facility] URINALYS IS CLEAN CATCH UROBILINOG EN [MASS/VOLU ME] IN URINE BY TEST STRIP Normalmg /dL <2.0 - 2.0 04/07 Specimen Type: URINE Comment: If Glucose = >500 and Ketones are positive, please alert the Physician. Ordering Provider: JAMILA BARRON Report Released Date/Time: Apr 04, 2024 05:53 PM Reporting Lab: [facility] [address] [facility] [address] Performing Lab: [facility] [address] [facility] [address] [facility] URINALYS IS CLEAN CATCH LEUKOCYTE ESTERASE [PRESENCE] IN URINE BY TEST STRIP NEGATIVE 04/07 Specimen Type: URINE Comment: If Glucose = >500 and Ketones are positive, please alert the Physician. Ordering Provider: JAMILA BARRON Report Released Date/Time: Apr 04, 2024 05:53 PM Reporting Lab: [facility] [address] [facility] [address] Performing Lab: [facility] [address] [facility] [address] [facility] BASIC METABOLI C PANEL (fasting ) UREA NITROGEN [MASS/VOLU ME] IN SERUM OR PLASMA 16 mg/dL 7 - 25 10/07 Specimen Type: SERUM No comment entered. Ordering Provider: JAMILA BARRON Report Released Date/Time: Oct 05, 2023 11:58 PM Reporting Lab: [facility] [place] [facility] [address] [facility] [address] Performing Lab: [facility] [place] [facility] [address] [facility] [address] [facility] [facility] BASIC METABOLI C PANEL (fasting ) GLUCOSE [MASS/VOLU ME] IN SERUM OR PLASMA 102 mg/dL 65 - 100 10/07 H Specimen Type: SERUM No comment entered. Ordering Provider: JAMILA BARRON Report Released Date/Time: Oct 05, 2023 11:58 PM Reporting Lab: [facility] [place] [facility] [address] [facility] [address] Performing Lab: [facility] [place] [facility] [address] [facility] [address] [facility] [place] [facility] BASIC METABOLI C PANEL (fasting ) SODIUM [MOLES/VOL UME] IN SERUM OR PLASMA 143 mmol/L 135 - 145 10/07 Specimen Type: SERUM No comment entered. Ordering Provider: JAMILA BARRON Report Released Date/Time: Oct 05, 2023 11:58 PM Reporting Lab: [facility] [place] [facility] [address] [facility] [address] Performing Lab: [facility] [place] [facility] [address] [facility] [address] [facility] BASIC METABOLI C PANEL (fasting ) POTASSIUM [MOLES/VOL UME] IN SERUM OR PLASMA 4.4 mmol/L 3.5 - 5.0 10/07 Specimen Type: SERUM No comment entered. Ordering Provider: JAMILA BARRON Report Released Date/Time: Oct 05, 2023 11:58 PM Reporting Lab: [facility] [place] [facility] [address] [facility] [address] Performing Lab: [facility] [place] [facility] [address] [facility] [address] [facility] [place] [facility] BASIC METABOLI C PANEL (fasting ) CHLORIDE [MOLES/VOL UME] IN SERUM OR PLASMA 106 mmol/L 100 - 110 10/07 Specimen Type: SERUM No comment entered. Ordering Provider: JAMILA BARRON Report Released Date/Time: Oct 05, 2023 11:58 PM Reporting Lab: [facility] [address] [address] Performing Lab: [facility] [address] [address] [facility] BASIC METABOLI C PANEL (fasting ) CARBON DIOXIDE, TOTAL [MOLES/VOL UME] IN SERUM OR PLASMA 26 meq/L 20 - 30 10/07 Specimen Type: SERUM No comment entered. Ordering Provider: JAMILA BARRON Report Released Date/Time: Oct 05, 2023 11:58 PM Reporting Lab: [facility] [address] [address] Performing Lab: [facility]ENTERUSE[address] [address] [facility]USE [facility] BASIC METABOLI C PANEL (fasting ) CREATININE [MASS/VOLU ME] IN SERUM OR PLASMA 1.01 mg/dL 0.50 - 1.40 10/07 Specimen Type: SERUM No comment entered. Ordering Provider: JAMILA BARRON Report Released Date/Time: Oct 05, 2023 11:58 PM Reporting Lab: [facility]ENTER[facility] [address] Performing Lab: [facility]ENTER[facility] [address] [facility] BASIC METABOLI C PANEL (fasting ) GLOMERULAR FILTRATION RATE/1.73 SQ M.PREDICTE D [VOLUME RATE/AREA] IN SERUM, PLASMA OR BLOOD BY CREATININE -BASED FORMULA (CKD-EPI 2020) 73 mL/min 60 10/07 Specimen Type: SERUM No comment entered. Ordering Provider: JAMILA BARRON Report Released Date/Time: Oct 05, 2023 11:58 PM Reporting Lab: [facility]ENTERUSE[address] [address] Performing Lab: [facility] [place] [facility] [address] [facility] [address] [facility] [place] [facility] CBC AND DIFF (AUTO) LEUKOCYTES [#/VOLUME] IN BLOOD BY AUTOMATED COUNT 7.99 10*3/uL 4.50 - 11.00 10/07 Specimen Type: BLOOD No comment entered. Ordering Provider: JAMILA BARRON Report Released Date/Time: Oct 05, 2023 11:58 PM Reporting Lab: [facility] [place] [facility] [address] [facility] [address] Performing Lab: [facility] [place] [facility] [address] [facility] [address] [facility] [place] [facility] CBC AND DIFF (AUTO) ERYTHROCYT ES [#/VOLUME] IN BLOOD BY AUTOMATED COUNT 4.47 10*6/uL 4.23 - 5.66 10/07 Specimen Type: BLOOD No comment entered. Ordering Provider: JAMILA BARRON Report Released Date/Time: Oct 05, 2023 11:58 PM Reporting Lab: [facility] [place] [facility] [address] [facility] [address] Performing Lab: [facility] [place] [facility] [address] [facility] [address] [facility] [place] [facility] CBC AND DIFF (AUTO) HEMOGLOBIN [MASS/VOLU ME] IN BLOOD 14.6 g/dL 12.8 - 17 10/07 Specimen Type: BLOOD No comment entered. Ordering Provider: JAMILA BARRON Report Released Date/Time: Oct 05, 2023 11:58 PM Reporting Lab: [facility] [place] [facility] [address] [facility] [address] Performing Lab: [facility] [place] [facility] [address] [facility] [address] [facility] [place] [facility] CBC AND DIFF (AUTO) HEMATOCRIT [VOLUME FRACTION] OF BLOOD BY AUTOMATED COUNT 42.7 39.2 - 50.4 10/07 Specimen Type: BLOOD No comment entered. Ordering Provider: JAMILA BARRON Report Released Date/Time: Oct 05, 2023 11:58 PM Reporting Lab: [facility] [place] [facility] [address] [facility] [address] Performing Lab: [facility] [place] [facility] [address] [facility] [address] [facility] [place] [facility] CBC AND DIFF (AUTO) MCV [ENTITIC VOLUME] BY AUTOMATED COUNT 95.5 fL 82 - 99 10/07 Specimen Type: BLOOD No comment entered. Ordering Provider: JAMILA BARRON Report Released Date/Time: Oct 05, 2023 11:58 PM Reporting Lab: [facility] [place] [facility] [address] [facility] [address] Performing Lab: [facility] [place] [facility] [address] [facility] [address] [facility] [place] [facility] CBC AND DIFF (AUTO) MCHC [MASS/VOLU ME] BY AUTOMATED COUNT 34.2 g/dL 30.8 - 35.1 10/07 Specimen Type: BLOOD No comment entered. Ordering Provider: JAMILA BARRON Report Released Date/Time: Oct 05, 2023 11:58 PM Reporting Lab: [facility] [place] [facility] [address] [facility] [address] Performing Lab: [facility] [place] [facility] [address] [facility] [address] [facility] [place] [facility] CBC AND DIFF (AUTO) PLATELETS [#/VOLUME] IN BLOOD BY AUTOMATED COUNT 126 10*3/uL 140 - 360 10/07 L Specimen Type: BLOOD No comment entered. Ordering Provider: JAMILA BARRON Report Released Date/Time: Oct 05, 2023 11:58 PM Reporting Lab: [facility] [place] [facility] [address] [facility] [address] Performing Lab: [facility] [place] [facility] [address] [facility] [address] [facility] [place] [facility] CBC AND DIFF (AUTO) ERYTHROCYT E DISTRIBUTI ON WIDTH [RATIO] BY AUTOMATED COUNT 12.9 12.0 - 16.0 10/07 Specimen Type: BLOOD No comment entered. Ordering Provider: JAMILA BARRON Report Released Date/Time: Oct 05, 2023 11:58 PM Reporting Lab: [facility] [place] [facility] [address] [facility] [address] Performing Lab: [facility] [place] [facility] [address] [facility] [address] [facility] CBC AND DIFF (AUTO) MONOCYTES [#/VOLUME] IN BLOOD BY AUTOMATED COUNT 0.79 10*3/uL 0.30 - 1.10 10/07 Specimen Type: BLOOD No comment entered. Ordering Provider: JAMILA BARRON Report Released Date/Time: Oct 05, 2023 11:58 PM Reporting Lab: [facility] [place] [facility] [address] [facility] [address] Performing Lab: [facility] [place] [facility] [address] [facility] [address] [facility] CBC AND DIFF (AUTO) MCH [ENTITIC MASS] BY AUTOMATED COUNT 32.7 pg 26.2 - 32.6 10/07 H Specimen Type: BLOOD No comment entered. Ordering Provider: JAMILA BARRON Report Released Date/Time: Oct 05, 2023 11:58 PM Reporting Lab: [facility] [place] [facility] [address] [facility] [address] Performing Lab: [facility] [place] [facility] [address] [facility] [address] [facility] CBC AND DIFF (AUTO) NEUTROPHIL S/100 LEUKOCYTES IN BLOOD BY AUTOMATED COUNT 54.5 43.7 - 75.8 10/07 Specimen Type: BLOOD No comment entered. Ordering Provider: JAMILA BARRON Report Released Date/Time: Oct 05, 2023 11:58 PM Reporting Lab: [facility] [place] [facility] [address] [facility] [address] Performing Lab: [facility] [place] [facility] [address] [facility] [address] [facility] CBC AND DIFF (AUTO) LYMPHOCYTE S/100 LEUKOCYTES IN BLOOD BY AUTOMATED COUNT 33.3 14.0 - 42.3 10/07 Specimen Type: BLOOD No comment entered. Ordering Provider: JAMILA BARRON Report Released Date/Time: Oct 05, 2023 11:58 PM Reporting Lab: [facility] [place] [facility] [address] [facility] [address] Performing Lab: [facility] [place] [facility] [address] [facility] [address] [facility] [place] [facility] CBC AND DIFF (AUTO) MONOCYTES/ 100 LEUKOCYTES IN BLOOD BY AUTOMATED COUNT 9.9 5.1 - 13.7 10/07 Specimen Type: BLOOD No comment entered. Ordering Provider: JAMILA BARRON Report Released Date/Time: Oct 05, 2023 11:58 PM Reporting Lab: [facility] [place] [facility] [address] [facility] [address] Performing Lab: [facility] [place] [facility] [address] [facility] [address] [facility] [place] [facility] CBC AND DIFF (AUTO) EOSINOPHIL S/100 LEUKOCYTES IN BLOOD BY AUTOMATED COUNT 1.4 0.4 - 6.8 10/07 Specimen Type: BLOOD No comment entered. Ordering Provider: JAMILA BARRON Report Released Date/Time: Oct 05, 2023 11:58 PM Reporting Lab: [facility] [place] [facility] [address] [facility] [address] Performing Lab: [facility] [place] [facility] [address] [facility] [address] [facility] [place] [facility] CBC AND DIFF (AUTO) BASOPHILS/ 100 LEUKOCYTES IN BLOOD BY AUTOMATED COUNT 0.6 0.1 - 2.0 10/07 Specimen Type: BLOOD No comment entered. Ordering Provider: JAMILA BARRON Report Released Date/Time: Oct 05, 2023 11:58 PM Reporting Lab: [facility] [place] [facility] [address] [facility] [address] Performing Lab: [facility] [place] [facility] [address] [facility] [address] [facility] [place] [facility] CBC AND DIFF (AUTO) NEUTROPHIL S [#/VOLUME] IN BLOOD BY AUTOMATED COUNT 4.36 10*3/uL 2.20 - 7.60 10/07 Specimen Type: BLOOD No comment entered. Ordering Provider: JAMILA BARRON Report Released Date/Time: Oct 05, 2023 11:58 PM Reporting Lab: [facility] [place] [facility] [address] [facility] [address] Performing Lab: [facility] [place] [facility] [address] [facility] [address] [facility] [place] [facility] CBC AND DIFF (AUTO) LYMPHOCYTE S [#/VOLUME] IN BLOOD BY AUTOMATED COUNT 2.66 10*3/uL 1.00 - 3.20 10/07 Specimen Type: BLOOD No comment entered. Ordering Provider: JAMILA BARRON Report Released Date/Time: Oct 05, 2023 11:58 PM Reporting Lab: [facility] [place] [address] [address] Performing Lab: [facility] [place] [facility] [address] [facility] [address] [facility] [place] [facility] CBC AND DIFF (AUTO) EOSINOPHIL S [#/VOLUME] IN BLOOD BY AUTOMATED COUNT 0.11 10*3/uL 0.03 - 0.44 10/07 Specimen Type: BLOOD No comment entered. Ordering Provider: JAMILA BARRON Report Released Date/Time: Oct 05, 2023 11:58 PM Reporting Lab: [facility] [place] [address] [address] Performing Lab: [facility] [place] [address] [address] [facility] [facility] CBC AND DIFF (AUTO) BASOPHILS [#/VOLUME] IN BLOOD BY AUTOMATED COUNT 0.05 10*3/uL 0.01 - 0.13 10/07 Specimen Type: BLOOD No comment entered. Ordering Provider: JAMILA BARRON Report Released Date/Time: Oct 05, 2023 11:58 PM Reporting Lab: [facility] [place] [facility] [address] [facility] [facility] [address] Performing Lab: [facility] [place] [facility] [address] [facility] [address] [facility] [place] [facility] CBC AND DIFF (AUTO) IMMATURE GRANULOCYT ES/100 LEUKOCYTES IN BLOOD BY AUTOMATED COUNT 0.3 0.0 - 0.7 10/07 Specimen Type: BLOOD No comment entered. Ordering Provider: JAMILA BARRON Report Released Date/Time: Oct 05, 2023 11:58 PM Reporting Lab: [facility] [place] [facility] [address] [facility] [address] Performing Lab: [facility] [place] [facility] [address] [facility] [facility] [address] [facility] [facility] CBC AND DIFF (AUTO) IMMATURE GRANULOCYT ES [#/VOLUME] IN BLOOD 0.02 10*3/uL 0.00 - 0.06 10/07 Specimen Type: BLOOD No comment entered. Ordering Provider: JAMILA BARRON Report Released Date/Time: Oct 05, 2023 11:58 PM Reporting Lab: [facility] [place] [facility] [address] [facility] [address] Performing Lab: [facility] [place] [address] [address] [facility] LIVER FUNCTION PROTEIN [MASS/VOLU ME] IN SERUM OR PLASMA 6.6 g/dL 6.0 - 8.3 10/07 Specimen Type: SERUM No comment entered. Ordering Provider: JAMILA BARRON Report Released Date/Time: Oct 05, 2023 11:58 PM Reporting Lab: [facility] [place] [facility] [address] [address] Performing Lab: [facility] [place] [address] [address] [facility] LIVER FUNCTION ALBUMIN [MASS/VOLU ME] IN SERUM OR PLASMA 3.8 g/dL 3.5 - 5.0 10/07 Specimen Type: SERUM No comment entered. Ordering Provider: JAMILA BARRON Report Released Date/Time: Oct 05, 2023 11:58 PM Reporting Lab: [facility] [place] [facility] [address] [facility] [address] Performing Lab: [facility] [place] [facility] [address] [facility] [address] [facility] LIVER FUNCTION ALKALINE PHOSPHATAS E [ENZYMATIC ACTIVITY/V OLUME] IN SERUM OR PLASMA 103 U/L 40 - 150 10/07 Specimen Type: SERUM No comment entered. Ordering Provider: JAMILA BARRON Report Released Date/Time: Oct 05, 2023 11:58 PM Reporting Lab: [facility] [place] [facility] [address] [address] Performing Lab: [facility] [place] [facility] [address] [address] [facility] [place] [facility] LIVER FUNCTION ASPARTATE AMINOTRANS FERASE [ENZYMATIC ACTIVITY/V OLUME] IN SERUM OR PLASMA 33 U/L 5 - 34 10/07 Specimen Type: SERUM No comment entered. Ordering Provider: JAMILA BARRON Report Released Date/Time: Oct 05, 2023 11:58 PM Reporting Lab: [facility] [place] [facility] [address] [address] Performing Lab: [facility] [place] [facility] [address] [facility] [address] [facility] [place] LIVER FUNCTION ALANINE AMINOTRANS FERASE [ENZYMATIC ACTIVITY/V OLUME] IN SERUM OR PLASMA 29 U/L 10/07 Specimen Type: SERUM No comment entered. Ordering Provider: JAMILA BARRON Report Released Date/Time: Oct 05, 2023 11:58 PM Reporting Lab: [facility] [place] [facility] [address] [facility] [address] Performing Lab: [facility] [place] [facility] [address] [facility] [address] [facility] [place] LIVER FUNCTION BILIRUBIN. TOTAL [MASS/VOLU ME] IN SERUM OR PLASMA 0.7 mg/dL 0.2 - 1.2 10/07 Specimen Type: SERUM No comment entered. Ordering Provider: JAMILA BARRON Report Released Date/Time: Oct 05, 2023 11:58 PM Reporting Lab: [facility] [place] [facility] [address] [address] Performing Lab: [facility] [place] [facility] [address] [facility] [address] [facility] LIPID PANEL FASTING CHOLESTERO L [MASS/VOLU ME] IN SERUM OR PLASMA 133 mg/dL 10/07 Specimen Type: SERUM No comment entered. Ordering Provider: JAMILA BARRON Report Released Date/Time: Oct 05, 2023 11:58 PM Reporting Lab: [facility] [place] [address] [address] Performing Lab: [facility] [place] [address] [address] [facility] [place] [facility] LIPID PANEL FASTING TRIGLYCERI DE [MASS/VOLU ME] IN SERUM OR PLASMA 98 mg/dL 0 - 150 10/07 Specimen Type: SERUM No comment entered. Ordering Provider: JAMILA BARRON Report Released Date/Time: Oct 05, 2023 11:58 PM Reporting Lab: [facility] [place] [facility] [address] [facility] [address] Performing Lab: [facility] [place] [address] [address] [facility] [place] LIPID PANEL FASTING CHOLESTERO L IN LDL [MASS/VOLU ME] IN SERUM OR PLASMA BY CALCULARJO N 70 mg/dL 0 - 129 10/07 Specimen Type: SERUM No comment entered. Ordering Provider: JAMILA BARRON Report Released Date/Time: Oct 05, 2023 11:58 PM Reporting Lab: [facility] [place] [facility] [address] [facility] [address] Performing Lab: [facility] [place] [address] [address] [facility] LIPID PANEL FASTING CHOLESTERO L.TOTAL/CH OLESTEROL IN HDL [MASS RATIO] IN SERUM OR PLASMA 3.1 10/07 Specimen Type: SERUM No comment entered. Ordering Provider: JAMILA BARRON Report Released Date/Time: Oct 05, 2023 11:58 PM Reporting Lab: [facility] [address] [facility] [address] Performing Lab: [facility] [place] [facility] [address] [facility] [address] [facility] LIPID PANEL FASTING CHOLESTERO L IN HDL [MASS/VOLU ME] IN SERUM OR PLASMA 43 mg/dL 40 - 60 10/07 Specimen Type: SERUM No comment entered. Ordering Provider: JAMILA BARRON Report Released Date/Time: Oct 05, 2023 11:58 PM Reporting Lab: [facility] [place] [facility] [address] [facility] [address] Performing Lab: [facility] [place] [facility] [address] [facility] [address] [facility] Vital Signs Combined list of inpatient and outpatient Vital Signs from Department of Defense and Veterans Affairs, ranging from 12 months to all on record, depending upon the facility. Vital Sign Value Date Comments Source SYSTOLIC BLOOD PRESSURE 162 04/13/20 24 13:23:12 [facility] [place] DIASTOLIC BLOOD PRESSURE 70 04/13/ 024 13:23:12 [facility] [place] [facility] PULSE OXIMETRY 96 04/13/2024 13:23:12 [facility] [place] WEIGHT 193.8 04/13/2024 13:23:12 [facility] [place] BMI 31 kg/m2 04/13/2024 13:23:12 [facility] PAIN 0 04/13/2024 13:23:12 [facility] [place] [facility] HEIGHT 66 04/13/2024 13:23:12 [facility] [place] [facility] TEMPERATURE 97.8 04/13/2024 13:23:12 [facility] [id number] 04/08 [facility] OFFICE O/P EST SF 10-19 MIN [id number] Diagnos is: ICD-10- CM I10 Essenti al (primar y) hyperte nsion RICO BARRON RD D 04/15 [facility] En[facility] [id number] 04/16 [facility] OFFICE O/P EST LOW 20-29 MIN [id number] Diagnos is: ICD-10- CM 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 RANCHO RODRIGUEZ 04/30 [facility] En[facility] [id number] 06/14 [facility] En[facility] [id number] 06/16 [facility] En[facility] [id number] 06/19 [facility] En[facility] [id number] 06/27 [facility] En[facility] [id number] 07/20 [facility] En[facility] [id number] 10/08 [facility] OFFICE O/P EST LOW 20 MIN [id number] Diagnos is: ICD-10- CM H67.3 Otitis media in disease s classif ied elsewhe re, bilater al RICO BARRON RD D 10/15 [facility] OFF/OP EST MAY X REQ PHY/QHP [id number] Diagnos is: ICD-10- CM Z23 Encount er for immuniz ation RICO BARRON RD D 10/15 [facility] UNLISTED SPEC DERM SVC/PX [id number] Diagnos is: ICD-10- CM Z13.89 Encount er for screeni ng for other disorde r GORDON BEAUCHAMP ICA A 10/23 [facility] OFFICE O/P EST SF 10 MIN [id number] Diagnos is: ICD-10- CM R21 Rash and other nonspec ific skin eruptio sonya PASTORWILEY PH J 10/23 [facility] Out[facility] Encounter [id number] 10/23 [facility] En[facility] [id number] 10/23 [facility] En[facility] [id number] 11/20 [facility] En[facility] [id number] 11/24 [facility] En[facility] [id number] 11/27 [facility]counter [id number] 11/28 [facility] Encounter [id number] 11/30 [facility] UNLISTED SPEC DERM SVC/PX [id number] Diagnos is: ICD-10- CM Z13.89 Encount er for screeni ng for other disorde GORDON Davies ICA A 12/04 [facility] En[facility] [id number] 12/04 [facility] Outpatient Encounter [id number] Diagnos is: ICD-10- CM D48.5 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 IRENA BRADFORD 12/04 [facility] Encounter [id number] 12/04 [facility] Encounter [id number] 12/04 [facility] Encounter [id number] MICHELLE FIGUEROA 12/26 [facility] [place] [place] [id number] Diagnos is: ICD-10- CM 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, bilater al Yossi HARRINGTON E 12/29 [facility] En[facility] [id number] 12/29 [facility] Encounter [id number] 01/05 [facility] Encounter [id number] 01/09 [facility] Encounter [id number] 01/12 [facility]counter [id number] 01[facility]12 [facility] En[facility] [id number] 01/12 [facility] Encounter [id number] IRASEMA MONTILLA 01/13 [facility] En[facility] [id number] 01/16 [facility] Encounter [id number] 01/16 [facility] Encounter [id number] 01/19 [facility] Encounter [id number] 01/22 [facility] Encounter [id number] 02/02 [facility] ORTHC/PROS TC MGMT SBSQ ENC [id number] Diagnos is: ICD-10- CM M84.472 A Patholo gical fractur e, left ankle, init encntr for fractur e Thierno HAMPTON 02/02 [facility] En[facility] [id number] 02/10 [facility] Encounter [id number] 02/13 [facility] Encounter [id number] 03/04 [facility] En[facility] [id number] 03/04 [facility] OFF/OP EST MAY X REQ PHY/QHP [id number] Diagnos is: ICD-10- CM Z71.89 Other specifi ed awake overnight counselor JOSEI Duval 03/05 [facility] OFFICE O/P EST LOW 20 MIN [id number] Diagnos is: ICD-10- CM L60.1 Onychol PASCUAL Lechuga 03/05 [facility] OFF/OP EST MAY X REQ PHY/QHP [id number] Diagnos is: ICD-10- CM Z48.01 Encount er for change or removal of surgica l wound KAVEH Fox 03/06 [facility] En[facility] [id number] 03/18 [facility] OFF/OP CNSLTJ NEW/EST MOD 40 [id number] Diagnos is: ICD-10- CM H90.A31 Mix cndct/s nrl hear loss,un i,r ear w rstrcd hear cntra JOSEPHINE Selby R 03/24 [facility] HEARING AID EXAM BOTH EARS [id number] Diagnos is: ICD-10- CM 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 Diagnos is: ICD-10- CM I10 Essenti al (primar y) hyperte nsion RICO BARRON RD 04/13 [facility] En[facility] [id number] 1.04/14 [facility] En[facility] [id number]/17 [facility] Encounter [id number] 04/23 [facility] Encounter [id number] 1.04/24 [facility] OFFICE O/P EST MOD 30 MIN [id number] Diagnos is: ICD-10- CM 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 RANCHO RODRIGUEZ 04/28 [facility] CONFORMITY EVALUATION [id number] Diagnos is: ICD-10- CM Z46.1 Encount er for fitting and adjustm ent of hearing aid Yossi HARRINGTON 05/05 [facility] En[facility] [id number] 05/08 [facility] Encounter [id number]/27 [facility] Encounter [id number] 06/01 [facility] Encounter [id number] 06/03 [facility] Encounter [id number] 06/06 [facility] Encounter [id number]/15 [facility] Encounter [id number]/16 [facility] Encounter [id number] 06/19 [facility] Encounter [id number] 06/25 [facility] Encounter [id number] 06/25 [facility] Encounter [id number] 06/26 [facility] Out[facility] Encounter [id number] 07/02 [facility] Encounter [id number] 07/06 [facility] Encounter [id number] 07/14 [facility] Encounter [id number] 07/14 [facility] Out[facility] Encounter [id number] 07/16 [facility] Encounter [id number] 07/20 [facility] Out[facility] Encounter [id number] 08/06 [facility] Encounter [id number] 08/27 [facility] OFFICE O/P EST MOD 30 MIN [id number] Diagnos is: ICD-10- CM 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 Social History Type Response Date Comment Sour e Tobacco smoking status NHIS [facility]BACCO FORMER [facility] History of tobacco use CO-TOBACCO QUIT 15 YRS OR MORE 10/16/2023 [facility] History of tobacco use VA-TOBACCO FORMER USER 07/04/2022 [facility] History of tobacco use NSG NO TOBACCO USE PAST 30 DAYS 03/27/2022 [facility] History of tobacco use NSG NO TOBACCO USE PAST 30 DAYS 03/05/2022 [facility] History of tobacco use NSG NO TOBACCO USE PAST 30 DAYS 03/02/2022 [facility] History of tobacco use VA-TOBACCO FORMER USER 06/28/2021 [facility] History of tobacco use VA-TOBACCO FORMER USER 05/26/2020 [facility] History of tobacco use CO-TOBACCO NEVER USED 05/23/2018 [facility] Plan of Care List of future care activities from Department of Veterans Affairs facilities. Additional future care activities may be listed in the Assessment and Plan section. Date/Time Care Activity Care Activity Detail Facili ty 10/07/2024 AMBULATORY - MEDICINE AMBULATORY - MEDICI NE [facility] 10/28/2024 AMBULATORY - MEDICINE AMBULATORY - MEDICI NE [facility] Advance Directives List of completed, amended, or rescinded Advance Directives on record at Department of Veterans Affairs facilities. An actual copy of the Directive is not included. Date Advance Directive Provider Source 02/19/2022 ADVANCE DIRECTIVE JOCE CASTORENA [facility] 11/16/2020 ADVANCE DIRECTIVE BYRON BARRON [facility]
--- OUTSIDE RECORDS SUMMARY | 2024-09-11 13:33 | XMS_ITS | Clinical Summary ---
Author Organization [facility] Address [address] [place] [address] Care Team Providers Care Media Manager Name Role Phone Adam Noonan MD Primary [...] , 01/31/2018, Additional history exists Care Teams Media Manager Relationship Specialty Start Date End Date Adam Noonan MD PCP - General Internal Medicine 11/19/17
--- OUTSIDE RECORDS SUMMARY | 2024-09-11 13:34 | XMS_ITS ---
Author Organization [facility] Address [address] [place] [address] Care Team Providers Care Warehouse Freight Handler Name Role Phone Josue Simmons MD Primary Care Provider Unavailab Lyn Damico [phone] REASON FOR VISIT 04/23/24 Encounters Encounter Location Date Provider Diagnosis [facility] [address] [place] [address] 04/02/2024 Lyn Lund Plan Of Treatment No Information Progress Notes * Reed MALLORY HDOB:1940 (83 yo M)Acc No.[id number]:04/02/2024 Patient:?Reed Mallory :1940???Age:83 Y???Sex:Male Address:[address] [place] [id number] * true * Date:? Generated for Printi ng/Ilda/eTransmitting on:?09/11/2024 01:33 PM EST
--- OUTSIDE RECORDS SUMMARY | 2024-09-11 13:34 | XMS_ITS ---
Author Organization [facility] Address [address] [place] [address] Care Team Providers Care Wet Suit Gluer Name Role Phone Josue Simmons MD Primary Care Provider Unavailab melinda Lyn Lund Unavailable [phone] Allergies Allergen (clinical drug ingredient) Drug/Non Drug [...] 04/23/2024 Encounters Encounter Location Date Provider Diagnosis [facility] [address] [place] [address] 04/23/2024 Lyn Lund Plan Of Treatment No Information Progress Notes * Reed MALLORY HDOB:1940 (83 yo M)Acc No.[id number]:04/23/2024 Progress Notes Patient:Reed VANCE Provider:?Lyn Lund DPM :1940???Age:83 Y???Sex:Male Chu e:04/23/2024 Address:[address] [place], [place] [id number] Pcp:Josue Simmons MD Subjective: * Chief Complaints: [...] Lund DPM Date:?2023 Generated for Yokasta palacios/Ilda/Sunil on:?09/11/2024 01:34 PM EST
--- OUTSIDE RECORDS SUMMARY | 2024-09-11 13:34 | XMS_ITS | Encounter Summary ---
Author Organization [facility] Address [address] [place] [address] Care Team Providers Care Clin Nurse Name Role Phone Adam Noonan MD Primary Care Provider Unava ilable Encounter Details Date Type Department Care Team Description 11/21/2017 Release of Information Medical Records [address] [place] [id number] Abstract, Provider Social History Tobacco Use Types [...] on filedocumented in this encounter Care Teams Clin Nurse Relationship Specialty Start Date End Date Adam Noonan MD PCP - General Internal Medicine 11/19/17 documented as of this encounter
== END 2024-09-11 11:24 | disposition home or self-care (01) ==
LOC: HO.HOSX 11:23
DX: M25.572 Pain in left ankle and joints of left foot (principal); S82.62XA Displaced fracture of lateral malleolus of left fibula, initial encounter for closed fracture
CPT/HCPCS: 73610; 99212

== ENCOUNTER 2024-09-11 13:12 | Outpatient (AMB) | payer MEDICARE, OTHER, SELFPAY ==
--- NOTE | 2024-09-11 13:16 | A.OFFVIS_ITS ---
Intake Visit Reasons: OV- LT Ankle ORIF 01/21/24 Intake Note: Reed is an 83 year old male who presents today for follow up after undergoing a left ankle ORIF on 01/21/[address] Chirinos. Patient reports he is doing well. Allergies niacin Allergy (Severe, Verified 09/11/24 13:17) Upset Stomach procaine [From Novocain] Allergy (Severe, Verified 09/11/24 13:17) I GET MEAN simvastatin Adverse Reaction (Severe, Verified 09/11/24 13:17) myopathy HPI HPI OV- LT Ankle ORIF 01/21/24: Details: Reed is a 83 year old male who presents today with his daughter for a post operative visit s/p left ankle ORIF 01/21/[address] Chirinos. At his last visit patient was advised to keep his ankle elevated; compression stockings were ordered. Today patient reports he continues to have pain but the swelling has gone down significantly with the help of compression socks. Patient reports continued difficulty with weight bearing [facility] Medical History Hyperlipidemia HTN (hypertension) CAD (coronary artery disease) Murmur, cardiac Chest pain COPD (chronic obstructive pulmonary disease) Asbestosis Surgical History S/P TAVR (transcatheter aortic valve replacement) Stented coronary artery Hx of cardiac catheterization Family History Father CAD (coronary artery disease) Mother No problems noted. Social History Patient Tobacco Use Status: Former Tobacco user Tobacco use type: Cigarette and Cigar Years Smoked: 14 years old Review of Systems Const All systems reviewed & are unremarkable except as noted in HPI and below Physical Exam Extrem Other: On inspection, there is no deformity of the L ankle Incision sites are well healed No evidence of discharge There there is noted to be some discoloration in the lateral aspect of the patient's ankle No ecchymosis Improved edema noted of the left ankle, improved from last visit Evidence of skin breakdown noted at previous evaluation appears to be resolving at this time Pain with axial loading of the left ankle Patient reports very mild tenderness to palpation about the left lateral malleolus Patient is able to plantar flex and dorsiflex the foot minimally, limited due to swelling and pain Distal sensation intact Capillary refill brisk Results Reviewed Results Reviewed: X-rays obtained in the office today and independently reviewed by me, Demetrius Contreras PA-C, demonstrate well-healing fracture of the left lateral malleolus with orthopedic hardware in place and in satisfactory clinical alignment. No evidence of re fracture, damage to orthopedic hardware, or other injury. However, there does appear to be some evidence of disuse osteopenia versus radiographic findings consistent with potential infection Assessment & Plan Assessment & Plan (1) Ankle fracture, lateral malleolus, closed: Code(s): S82.63XA - Displaced fracture of lateral malleolus of unspecified fibula, initial encounter for closed fracture Category: Medical Qualifiers: Encounter type: initial encounter Fracture alignment: displaced Laterality: left Qualified Code(s): S82.62XA - Displaced fracture of lateral malleolus of left fibula, initial encounter for closed fracture Plan 1. Status post left ankle ORIF DOS 01/18/2024 At this time, due to concerns for potential underlying infection of the left ankle, MRI of the left ankle is ordered Patient was educated that if the MRI does not show signs or symptoms of infection, he can continue to follow-up with me and continue with conservative swelling and pain management measures However, if the patient does have signs and symptoms consistent with infection on MRI, he will need to follow-up with Dr. Chirinos for discussion of treatment options Patient was amenable to this plan Patient will follow-up after MRI for results review and discussion of further treatment options if indicated, sooner with any acute concerns Orders: Orders MR ankle LT wo con Today S82.62XA - Displaced fracture of lateral malleolus of left fibula, initial encounter for closed fracture XR ankle LT min 3V Today M25.572 - Pain in left ankle and joints of left foot Coding Level of Care Code Est Pt Level 3 (45591) Diagnoses Closed displaced fracture of lateral malleolus of left fibula, initial encounter S82.62XA Encounter type: initial encounter Fracture alignment: displaced Laterality: left
--- OUTSIDE RECORDS SUMMARY | 2024-09-11 15:14 | XMS_ITS | Encounter Summary ---
Author Organization [facility] Address [address] [place] [address] Care Team Providers Care Ecology Teacher Name Role Phone Adam Noonan MD Primary Care Provider Unava ilable Reason for Visit * Reason Onset Date Comments refill request 02/05/2019 Encounter Details Date Type Department Care Team Description 02/05/2019 Telephone Pulmonology - [place] [address] [facility] [address] [place] [address] Eric Tucker MD refill request Social History Tobacco Use Types Packs/Day Years Used Date Smoking Tobacco: Former Cigarettes 1 30 Smokeless Tobacco: Former Alcohol Use Standard Drinks/Week Comments Yes 0 (1 standard drink = 0.6 oz pur e alcohol) Sex Assigned at Date Recorded Not on file documented as of this encounter Miscellaneous Notes * Telephone Encounter - Eric Tucker MD - 02/08/2019 6:28 PM EDT Yes please fax script printed to [place] [facility] [place] * Telephone Encounter - Xenia Bernabe - 02/05/2019 1:47 PM EDT Patient calling states was seen on January 19 was told pro air was suppose to be sent over to [facility] pharmacy and patient still has yet to rcv it and needs young fax over is [phone] documented in this encounter Plan of Treatment Not on file documented as of this encounter Visit Diagnoses Not on filedocumented in this encounter Care Teams Ecology Teacher Relationship Specialty Start Date End Date Adam Noonan MD PCP - General Internal Medicine 11/19/17 documented as of this encounter
--- OUTSIDE RECORDS SUMMARY | 2024-09-11 15:15 | XMS_ITS | Continuity of Care Document ---
Author Name [facility] Organization [facility] Care Team Providers Care Circulation Assistant Name Role Phone [facility] Unavailable Unavailable Problems Combined list of problems from Department of Defense and Veterans Affairs facilities. It does not include entries that were removed or entered in error. Problem Status Onset Date Problem Type Date of Resolution Comments Source Chronic dermatitis Active 023 Condition Oct 05, 2022 Entered By: BYRON BARRON Comment: referred to dermatology [facility] Chest Pain (SCT [id number]) Active Condition Jan 02, 2022 Entered By: BYRON BARRON Comment: ordered stress test [facility] COPD - Chronic Obstructive Pulmonary Disease (SCT [id number]) Active Condition Dec 28, 2021 Entered By: BYRON BARRON Comment: on inhalers [facility] Cataract Active Condition Oct 12, 2020 Entered By: BYRON BARRON Comment: referred for surgery [facility] HTN - Hypertension (SCT [id number]) Active Condition Oct 21, 2020 Entered By: BYRON BARRON Comment: treated witn medication [facility] Hypercholesterolemia (SCT [id number]) Active Condition Oct 21, 2020 Entered By: [...] of uncertain behavior of skin Active Diagnosis [facility] Diagnosis: ICD-10-CM Z13.89 Encounter for screening for other disorder Active Diagnosis [facility] Diagnosis: ICD-10-CM R21 Rash and other nonspecific skin eruption Active Diagnosis [facility] Diagnosis: ICD-10-CM Z23 Encounter for immunization [...] TWICE DAILY FOR INFECTIO N ORAL 11/15/2023 [id number] MAUREEN BARRON D 2023 20 [facility] ASPIRIN 81MG TAB,CHEWABL E CHEW ONE TABLET BY MOUTH ONCE DAILY ORAL ACTIVE JANINE HAMMOND R 2021 [facility] ATORVASTATI N CA 80MG TAB TAKE ONE TABLET BY MOUTH AT BEDTIME ORAL ACTIVE 06/26/2025 [id number] MAUREEN BARRON D 2023 90 [facility] ATORVASTATI N CA 80MG TAB TAKE ONE TABLET BY MOUTH AT BEDTIME ORAL DISCONT INUED 06/19/2024 [id number] 4 MOHAMUD ARGUETA 2022 90 [facility] CARBOXYMETH YLCELLULOSE NA 0.5% SOLN,OPH INSTILL 1 DROP INTO EACH EYE FOUR TIMES A DAY FOR DRY EYE OPHTHA LMIC ACTIVE 09/02/2025 [id number] OSBALDO CALDERON EY J 2024 45 [facility] CEPHALEXIN 500MG CAP TAKE ONE CAPSULE BY MOUTH EVERY 8 HOURS FOR INFECTIO N ORAL 04/04/2024 [id number] 4 MAMTA STERN 2023 21 [facility] EYELID CLEANSER,EY E SCRUB PAD USE 1 PAD TOPICALL Y EVERY MORNING BLEPHARI TIS TOPICA L ACTIVE 09/02/2025 [id number] OSBALDO CALDERON EY J 2024 90 [facility] EZETIMIBE 10MG TAB TAKE ONE TABLET BY MOUTH ONCE DAILY TO LOWER CHOLESTE ROL ORAL ACTIVE 06/26/2025 [id number] MAUREEN BARRON D 2023 90 [facility] EZETIMIBE 10MG TAB TAKE ONE TABLET BY MOUTH ONCE DAILY TO LOWER CHOLESTE ROL ORAL DISCONT INUED 06/19/2024 [id number] KENDALL,MOHAMUD AV 2022 90 [facility] HYDROCHLORO THIAZIDE 25MG TAB TAKE ONE TABLET BY MOUTH ONCE DAILY ORAL 06/19/2024 [id number] KENDALL,MOHAMUD AV 2023 90 [facility] METOPROLOL SUCCINATE 50MG TAB,SA TAKE ONE TABLET BY MOUTH ONCE DAILY FOR BLOOD PRESSURE /HEART ORAL ACTIVE 06/26/2025 [id number] MAUREEN BARRON PAIGE D 2023 90 [facility] METOPROLOL SUCCINATE 50MG TAB,SA TAKE ONE TABLET BY MOUTH ONCE DAILY FOR BLOOD PRESSURE /HEART ORAL DISCONT INUED 06/19/2024 [id number] KENDALL,MOHAMUD AV 2022 90 [facility] TRIAMCINOLO NE ACETONIDE 0.1% CREAM,TOP APPLY A MODERATE AMOUNT TOPICALL Y TWICE DAILY NEEDED FOR ITCHING TOPICA L ACTIVE 10/24/2024 [id number] MAUREEN BARRON PAIGE D 2023 454 [facility] Allergies, Adverse Reactions, Alerts Combined list of allergies from Department of Defense and Veterans Affairs facilities. It does not include entries that were removed or entered in error. Substance Category Reaction Severity Reaction type Status Date Reported Comments Source LIDOCAINE Propensity to adverse reactions to drug (finding) Itching MODERATE active 2 [facility] NOVOCAIN Propensity to adverse reactions to drug (finding) Feeling agitated active 8 [facility] PROCAINE Propensity to adverse reactions to drug (finding) active 2 [facility] Immunizations Combined list of available immunizations from the Department of Defense and Veterans Affairs facilities. 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 Comments Source COVID-19 (MODERNA), MRNA, LNP-S, PF, 50 MCG/0.5 ML (AGES 12+ YEARS) 7 2023 ALMA MAHER LEFT DELTO ID [id number] 312 complet ed [facility] INFLUENZA, HIGH-DOSE, TRIVALENT, PF 2023 ALMA MAHER M LEFT DELTO ID [id number] 135 complet ed [facility] RSV, BIVALENT, PROTEIN SUBUNIT RSVPREF, DILUENT RECONSTITUTED , 0.5 ML, PF 1 2023 GRETCHEN ANDRADE E LEFT DELTO ID [id number] 305 complet ed [facility] COVID-19 (MODERNA), MRNA, LNP-S, PF, 50 MCG/0.5 ML (AGES 12+ YEARS) 1 2023 GRETCHEN ANDRADE E LEFT DELTO ID [id number] 312 complet ed [facility] INFLUENZA, HIGH-DOSE, QUADRIVALENT 2022 JERRI SHAIKH M LEFT DELTO ID [id number] 197 complet ed [facility] COVID-19 (MODERNA), MRNA, LNP-S, BIVALENT BOOSTER, PF, 50 MCG/0.5 ML OR 25MCG/0.25 ML DOSE 2021 JERRI SHAIKH ER M LEFT DELTO ID [id number] 229 complet ed [facility] INFLUENZA VACCINE, QUADRIVALENT, ADJUVANTED 2021 205 complet ed [facility] COVID-19 (MODERNA), MRNA, LNP-S, PF, 100 MCG/0.5ML DOSE OR 50 MCG/0.25ML DOSE 3 2021 207 complet ed MOD; [id number] ; 2 [facility] PNEUMOCOCCAL CONJUGATE PCV20, POLYSACCHARID E [id number] CONJUGATE, ADJUVANT, PF 2021 216 complet ed [facility] COVID-19 (MODERNA), MRNA, LNP-S, PF, 100 MCG OR 50 MCG DOSE 3 2020 207 complet ed MOD; [id number]; 2 [facility] INFLUENZA, UNSPECIFIED FORMULATION 2020 88 complet ed [facility] TDAP 2020 115 complet ed [facility] COVID-19 (MODERNA), MRNA, LNP-S, PF, 100 MCG/0.5 ML DOSE 2 2020 207 complet ed MOD; [id number]; 1 [facility] COVID-19 (MODERNA), MRNA, LNP-S, PF, 100 MCG/0.5 ML DOSE 1 2020 207 complet ed MOD; [id number]; 1 [facility] [...] DOSE SEASONAL 2017 135 complet ed Partner: [facility]. Administe red by: ARLET BOLTON ([phone]). Partner 0 Lot#: [id number] Mfr: Sanofi Pasteur; Dosage: 0.5 [facility] PNEUMOCOCCAL POLYSACCHARID E PPV23 2016 33 complet ed Partner: [facility] Administe red by: ARLET BOLTON (ZBU=[phone]). Partner 0 Lot#: [id number] Mfr: Advaction; Dosage: 0.5 [facility] INFLUENZA, HIGH DOSE SEASONAL 2016 135 complet ed Partner[facility]. Administe red by: ARLET BOLTON ([phone]). Partner 0 Lot#: [id number] Mfr: Sanofi Pasteur; Dosage: 0.5 [facility] [place] [facility] Results Combined list of recent chemistry, hematology [...] Apr 04, 2024 05:53 PM Reporting Lab: [facility] [place] [address] [address] Performing Lab: [facility] [place] [address] [address] [facility] [place] [facility] BASIC METABOLI C PANEL (fasting ) GLUCOSE [MASS/VOLU ME] IN SERUM OR PLASMA 93 mg/dL 65 - 100 04/07 Specimen Type: SERUM No comment entered. Ordering Provider: JAMILA BARRON Report Released Date/Time: Apr 04, 2024 05:53 PM Reporting Lab: [facility] [place] [address] [address] Performing Lab: [facility] [place] [address] [address] [facility] [place] [facility] BASIC METABOLI C PANEL (fasting ) SODIUM [MOLES/VOL UME] IN SERUM OR PLASMA 139 mmol/L 135 - 145 04/07 Specimen Type: SERUM No comment entered. Ordering Provider: JAMILA BARRON Report Released Date/Time: Apr 04, 2024 05:53 PM Reporting Lab: [facility] [place] [facility] [address] [facility] [address] Performing Lab: [facility] [place] [address] [address] [facility] [place] [facility] BASIC METABOLI C PANEL (fasting ) POTASSIUM [MOLES/VOL UME] IN SERUM OR PLASMA 3.9 mmol/L 3.5 - 5.0 04/07 Specimen Type: SERUM No comment entered. Ordering Provider: JAMILA BARRON Report Released Date/Time: Apr 04, 2024 05:53 PM Reporting Lab: [facility] [address] [address] Performing Lab: [facility] [address] [address] [facility] BASIC METABOLI C PANEL (fasting ) CHLORIDE [MOLES/VOL UME] IN SERUM OR PLASMA 102 mmol/L 100 - 110 04/07 Specimen Type: SERUM No comment entered. Ordering Provider: JAMILA BARRON Report Released Date/Time: Apr 04, 2024 05:53 PM Reporting Lab: [facility] [address] [address] Performing Lab: [facility] [address] [facility] BASIC METABOLI C PANEL (fasting ) CARBON DIOXIDE, TOTAL [MOLES/VOL UME] IN SERUM OR PLASMA 26 meq/L 20 - 30 04/07 Specimen Type: SERUM No comment entered. Ordering Provider: JAMILA BARRON Report Released Date/Time: Apr 04, 2024 05:53 PM Reporting Lab: [facility] [address] [address] Performing Lab: [facility] [address] [facility] BASIC METABOLI C PANEL (fasting ) CREATININE [MASS/VOLU ME] IN SERUM OR PLASMA 0.92 mg/dL 0.50 - 1.40 04/07 Specimen Type: SERUM No comment entered. Ordering Provider: JAMILA BARRON Report Released Date/Time: Apr 04, 2024 05:53 PM Reporting Lab: [facility]TR[facility] [address] [address] Performing Lab: [facility] [address] [facility] [place] [facility] BASIC METABOLI C PANEL (fasting ) GLOMERULAR FILTRATION RATE/1.73 SQ M.PREDICTE D [VOLUME RATE/AREA] IN SERUM, PLASMA OR BLOOD BY CREATININE -BASED FORMULA (CKD-EPI 2020) 82 mL/min 60 04/07 Specimen Type: SERUM No comment entered. Ordering Provider: JAMILA BARRON Report Released Date/Time: Apr 04, 2024 05:53 PM Reporting Lab: [facility] [place] [facility] [address] [facility] [address] Performing Lab: [facility] [place] [facility] [address] [facility] [address] [facility] [place] [facility] CBC AND DIFF (AUTO) LEUKOCYTES [#/VOLUME] IN BLOOD BY AUTOMATED COUNT 7.77 10*3/uL 4.50 - 11.00 04/07 Specimen Type: BLOOD No comment entered. Ordering Provider: JAMILA BARRON Report Released Date/Time: Apr 04, 2024 05:53 PM Reporting Lab: [facility] [place] [facility] [address] [facility] [address] Performing Lab: [facility] [address] [facility] [address] [facility] CBC AND DIFF (AUTO) ERYTHROCYT ES [#/VOLUME] IN BLOOD BY AUTOMATED COUNT 4.29 10*6/uL 4.23 - 5.66 04/07 Specimen Type: BLOOD No comment entered. Ordering Provider: JAMILA BARRON Report Released Date/Time: Apr 04, 2024 05:53 PM Reporting Lab: [facility] [place] [facility] [address] [facility] [address] Performing Lab: [facility] [place] [facility] [address] [facility] [address] [facility] [place] [facility] CBC AND DIFF (AUTO) HEMOGLOBIN [MASS/VOLU ME] IN BLOOD 14.2 g/dL 12.8 - 17 04/07 Specimen Type: BLOOD No comment entered. Ordering Provider: JAMILA BARRON Report Released Date/Time: Apr 04, 2024 05:53 PM Reporting Lab: [facility] [place] [facility] [address] [facility] [address] Performing Lab: [facility] [place] [facility] [address] [facility] [address] [facility] [place] [facility] CBC AND DIFF (AUTO) HEMATOCRIT [VOLUME FRACTION] OF BLOOD BY AUTOMATED COUNT 41.1 39.2 - 50.4 04/07 Specimen Type: BLOOD No comment entered. Ordering Provider: JAMILA BARRON Report Released Date/Time: Apr 04, 2024 05:53 PM Reporting Lab: [facility] [place] [facility] [address] [facility] [address] Performing Lab: [facility] [place] [facility] [address] [facility] [address] [facility] [place] [facility] CBC AND DIFF (AUTO) MCV [ENTITIC VOLUME] BY AUTOMATED COUNT 95.8 fL 82 - 99 04/07 Specimen Type: BLOOD No comment entered. Ordering Provider: JAMILA BARRON Report Released Date/Time: Apr 04, 2024 05:53 PM Reporting Lab: [facility] [place] [facility] [address] [facility] [address] Performing Lab: [facility] [place] [facility] [address] [facility] [address] [facility] [place] [facility] CBC AND DIFF (AUTO) MCHC [MASS/VOLU ME] BY AUTOMATED COUNT 34.5 g/dL 30.8 - 35.1 04/07 Specimen Type: BLOOD No comment entered. Ordering Provider: JAMILA BARRON Report Released Date/Time: Apr 04, 2024 05:53 PM Reporting Lab: [facility] [place] [facility] [address] [facility] [address] Performing Lab: [facility] [place] [facility] [address] [facility] [address] [facility] [place] [facility] CBC AND DIFF (AUTO) PLATELETS [#/VOLUME] IN BLOOD BY AUTOMATED COUNT 184 10*3/uL 140 - 360 04/07 Specimen Type: BLOOD No comment entered. Ordering Provider: JAMILA BARRON Report Released Date/Time: Apr 04, 2024 05:53 PM Reporting Lab: [facility] [place] [facility] [address] [facility] [address] Performing Lab: [facility] [place] [facility] [address] [facility] [address] [facility] [place] [facility] CBC AND DIFF (AUTO) ERYTHROCYT E DISTRIBUTI ON WIDTH [RATIO] BY AUTOMATED COUNT 13.1 12.0 - 16.0 04/07 Specimen Type: BLOOD No comment entered. Ordering Provider: JAMILA BARRON Report Released Date/Time: Apr 04, 2024 05:53 PM Reporting Lab: [facility] [place] [facility] [address] [facility] [address] Performing Lab: [facility] [place] [facility] [address] [facility] [address] [facility] [place] [facility] CBC AND DIFF (AUTO) MONOCYTES [#/VOLUME] IN BLOOD BY AUTOMATED COUNT 0.98 10*3/uL 0.30 - 1.10 04/07 Specimen Type: BLOOD No comment entered. Ordering Provider: JAMILA BARRON Report Released Date/Time: Apr 04, 2024 05:53 PM Reporting Lab: [facility] [place] [facility] [address] [facility] [address] Performing Lab: [facility] [place] [facility] [address] [facility] [address] [facility] [place] [facility] CBC AND DIFF (AUTO) MCH [ENTITIC MASS] BY AUTOMATED COUNT 33.1 pg 26.2 - 32.6 04/07 H Specimen Type: BLOOD No comment entered. Ordering Provider: JAMILA BARRON Report Released Date/Time: Apr 04, 2024 05:53 PM Reporting Lab: [facility] [place] [facility] [address] [facility] [address] Performing Lab: [facility] [place] [facility] [address] [facility] [address] [facility] [place] [facility] CBC AND DIFF (AUTO) NEUTROPHIL S/100 LEUKOCYTES IN BLOOD BY AUTOMATED COUNT 52.3 43.7 - 75.8 04/07 Specimen Type: BLOOD No comment entered. Ordering Provider: JAMILA BARRON Report Released Date/Time: Apr 04, 2024 05:53 PM Reporting Lab: [facility] [place] [facility] [address] [facility] [address] Performing Lab: [facility] [place] [facility] [address] [facility] [address] [facility] [place] [facility] CBC AND DIFF (AUTO) LYMPHOCYTE S/100 LEUKOCYTES IN BLOOD BY AUTOMATED COUNT 31.7 14.0 - 42.3 04/07 Specimen Type: BLOOD No comment entered. Ordering Provider: JAMILA BARRON Report Released Date/Time: Apr 04, 2024 05:53 PM Reporting Lab: [facility] [place] [address] [address] Performing Lab: [facility] [place] [address] [address] [facility] [place] [facility] CBC AND DIFF (AUTO) MONOCYTES/ 100 LEUKOCYTES IN BLOOD BY AUTOMATED COUNT 12.6 5.1 - 13.7 04/07 Specimen Type: BLOOD No comment entered. Ordering Provider: JAMILA BARRON Report Released Date/Time: Apr 04, 2024 05:53 PM Reporting Lab: [facility] [place] [address] [address] Performing Lab: [facility] [place] [facility] [address] [place] [address] [facility] [place] [facility] CBC AND DIFF (AUTO) EOSINOPHIL S/100 LEUKOCYTES IN BLOOD BY AUTOMATED COUNT 2.3 0.4 - 6.8 04/07 Specimen Type: BLOOD No comment entered. Ordering Provider: JAMILA BARRON Report Released Date/Time: Apr 04, 2024 05:53 PM Reporting Lab: [facility] [place] [address] [address] Performing Lab: [facility] [place] [address] [address] [facility] [place] [facility] CBC AND DIFF (AUTO) BASOPHILS/ 100 LEUKOCYTES IN BLOOD BY AUTOMATED COUNT 0.6 0.1 - 2.0 04/07 Specimen Type: BLOOD No comment entered. Ordering Provider: JAMILA BARRON Report Released Date/Time: Apr 04, 2024 05:53 PM Reporting Lab: [facility] [place] [facility] [address] [place] [address] Performing Lab: [facility] [place] [facility] [address] [facility] [address] [facility] [place] [facility] CBC AND DIFF (AUTO) NEUTROPHIL S [#/VOLUME] IN BLOOD BY AUTOMATED COUNT 4.06 10*3/uL 2.20 - 7.60 04/07 Specimen Type: BLOOD No comment entered. Ordering Provider: JAMILA BARRON Report Released Date/Time: Apr 04, 2024 05:53 PM Reporting Lab: [facility] [place] [facility] [address] [facility] [address] Performing Lab: [facility] [place] [facility] [address] [facility] [address] [facility] [place] [facility] CBC AND DIFF (AUTO) LYMPHOCYTE S [#/VOLUME] IN BLOOD BY AUTOMATED COUNT 2.46 10*3/uL 1.00 - 3.20 04/07 Specimen Type: BLOOD No comment entered. Ordering Provider: JAMILA BARRON Report Released Date/Time: Apr 04, 2024 05:53 PM Reporting Lab: [facility] [place] [facility] [address] [facility] [address] Performing Lab: [facility] [place] [facility] [address] [facility] [address] [facility] [place] [facility] CBC AND DIFF (AUTO) EOSINOPHIL S [#/VOLUME] IN BLOOD BY AUTOMATED COUNT 0.18 10*3/uL 0.03 - 0.44 04/07 Specimen Type: BLOOD No comment entered. Ordering Provider: JAMILA BARRON Report Released Date/Time: Apr 04, 2024 05:53 PM Reporting Lab: [facility] [place] [facility] [address] [facility] [address] Performing Lab: [facility] [place] [facility] [address] [facility] [address] [facility] [place] [facility] CBC AND DIFF (AUTO) BASOPHILS [#/VOLUME] IN BLOOD BY AUTOMATED COUNT 0.05 10*3/uL 0.01 - 0.13 04/07 Specimen Type: BLOOD No comment entered. Ordering Provider: JAMILA BARRON Report Released Date/Time: Apr 04, 2024 05:53 PM Reporting Lab: [facility] [place] [facility] [address] [facility] [address] Performing Lab: [facility] [place] [address] [address] [facility] [place] [facility] CBC AND DIFF (AUTO) IMMATURE GRANULOCYT ES/100 LEUKOCYTES IN BLOOD BY AUTOMATED COUNT 0.5 0.0 - 0.7 04/07 Specimen Type: BLOOD No comment entered. Ordering Provider: JAMILA BARRON Report Released Date/Time: Apr 04, 2024 05:53 PM Reporting Lab: [facility] [place] [address] [address] Performing Lab: [facility] [place] [address] [address] [facility] [place] [facility] CBC AND DIFF (AUTO) IMMATURE GRANULOCYT ES [#/VOLUME] IN BLOOD 0.04 10*3/uL 0.00 - 0.06 04/07 Specimen Type: BLOOD No comment entered. Ordering Provider: JAMILA BARRON Report Released Date/Time: Apr 04, 2024 05:53 PM Reporting Lab: [facility] [place] [address] [address] Performing Lab: [facility] [place] [address] [address] [facility] [place] [facility] CBC AND DIFF (AUTO) NRBC % 0.0 0.0 - 0.0 04/07 Specimen Type: BLOOD No comment entered. Ordering Provider: JAMILA BARRON Report Released Date/Time: Apr 04, 2024 05:53 PM Reporting Lab: [facility] [place] [facility] [address] [facility] [address] Performing Lab[facility] [place] [facility] [address] [facility] [address] [facility] [place] [facility] CBC AND DIFF (AUTO) NRBC, ABS 0.00 10*3/uL 0.00 - 0.00 04/07 Specimen Type: BLOOD No comment entered. Ordering Provider: JAMILA BARRON Report Released Date/Time: Apr 04, 2024 05:53 PM Reporting Lab: [facility] [place] [address] [address] Performing Lab: [facility] [place] [address] [address] [facility] [place] [facility] LIPID PANEL FASTING CHOLESTERO L [MASS/VOLU ME] IN SERUM OR PLASMA 139 mg/dL 04/07 Specimen Type: SERUM No comment entered. Ordering Provider: JAMILA BARRON Report Released Date/Time: Apr 04, 2024 05:53 PM Reporting Lab: [facility] [place] [address] [address] Performing Lab: [facility] [place] [address] [address] [facility] [place] [facility] LIPID PANEL FASTING TRIGLYCERI DE [MASS/VOLU ME] IN SERUM OR PLASMA 136 mg/dL 0 - 150 04/07 Specimen Type: SERUM No comment entered. Ordering Provider: JAMILA BARRON Report Released Date/Time: Apr 04, 2024 05:53 PM Reporting Lab: [facility] [place] [facility] [address] [facility] [address] Performing Lab: [facility] [place] [address] [phone] [facility] [place] [facility] LIPID PANEL FASTING CHOLESTERO L IN LDL [MASS/VOLU ME] IN SERUM OR PLASMA BY CALCULATIO N 72 mg/dL 0 - 129 04/07 Specimen Type: SERUM No comment entered. Ordering Provider: JAMILA BARRON Report Released Date/Time: Apr 04, 2024 05:53 PM Reporting Lab: [facility] [place] [facility] [address] [facility] [address] Performing Lab: [facility] [place] [facility] [address] [facility] [address] [facility] [place] [facility] HOSPITAL LIPID PANEL FASTING CHOLESTERO L.TOTAL/CH OLESTEROL IN HDL [MASS RATIO] IN SERUM OR PLASMA 3.5 04/07 Specimen Type: SERUM No comment entered. Ordering Provider: JAMILA BARRON Report Released Date/Time: Apr 04, 2024 05:53 PM Reporting Lab: [facility] [place] [facility] [address] [facility] [address] Performing Lab: [facility] [place] [address] [address] [facility] [place] [facility] LIPID PANEL FASTING CHOLESTERO L IN HDL [MASS/VOLU ME] IN SERUM OR PLASMA 40 mg/dL 40 - 60 04/07 Specimen Type: SERUM No comment entered. Ordering Provider: JAMILA BARRON Report Released Date/Time: Apr 04, 2024 05:53 PM Reporting Lab: [facility] [place] [address] [address] Performing Lab: [facility] [place] [address] [address] [facility] [place] [facility] LIVER FUNCTION PROTEIN [MASS/VOLU ME] IN SERUM OR PLASMA 6.8 g/dL 6.0 - 8.3 04/07 Specimen Type: SERUM No comment entered. Ordering Provider: JAMILA BARRON Report Released Date/Time: Apr 04, 2024 05:53 PM Reporting Lab: [facility] [place] [address] [address] Performing Lab: [facility] [place] [address] [address] [facility] [place] [facility] LIVER FUNCTION ALBUMIN [MASS/VOLU ME] IN SERUM OR PLASMA 4.0 g/dL 3.5 - 5.0 04/07 Specimen Type: SERUM No comment entered. Ordering Provider: JAMILA BARRON Report Released Date/Time: Apr 04, 2024 05:53 PM Reporting Lab: [facility] [place] [facility] [address] [facility] [address] Performing Lab: [facility] [place] [facility] [address] [facility] [address] [facility] [place] [facility] LIVER FUNCTION ALKALINE PHOSPHATAS E [ENZYMATIC ACTIVITY/V OLUME] IN SERUM OR PLASMA 118 U/L 40 - 150 04/07 Specimen Type: SERUM No comment entered. Ordering Provider: JAMILA BARRON Report Released Date/Time: Apr 04, 2024 05:53 PM Reporting Lab: [facility] [place] [address] [address] Performing Lab: [facility] [place] [address] [address] [facility] [place] [facility] LIVER FUNCTION ASPARTATE AMINOTRANS FERASE [ENZYMATIC ACTIVITY/V OLUME] IN SERUM OR PLASMA 30 U/L 5 - 34 04/07 Specimen Type: SERUM No comment entered. Ordering Provider: JAMILA BARRON Report Released Date/Time: Apr 04, 2024 05:53 PM Reporting Lab: [facility] [place] [address] [address] Performing Lab: [facility] [place] [facility] [address] [facility] [address] [facility] [place] [facility] LIVER FUNCTION ALANINE AMINOTRANS FERASE [ENZYMATIC ACTIVITY/V OLUME] IN SERUM OR PLASMA 23 U/L 04/07 Specimen Type: SERUM No comment entered. Ordering Provider: JAMILA BARRON Report Released Date/Time: Apr 04, 2024 05:53 PM Reporting Lab: [facility] [place] [address] [address] Performing Lab: [facility] [place] [address] [address] [facility] [place] [facility] LIVER FUNCTION BILIRUBIN. TOTAL [MASS/VOLU ME] IN SERUM OR PLASMA 1.0 mg/dL 0.2 - 1.2 04/07 Specimen Type: SERUM No comment entered. Ordering Provider: JAMILA BARRON Report Released Date/Time: Apr 04, 2024 05:53 PM Reporting Lab: [facility] [place] [address] [address] Performing Lab: [facility] [place] [address] [address] [facility] [place] [facility] TSH THYROTROPI N [UNITS/VOL UME] IN SERUM OR PLASMA 2.34 u[IU]/mL 0.35 - 5.00 04/07 Specimen Type: SERUM No comment entered. Ordering Provider: JAMILA BARRON Report Released Date/Time: Apr 04, 2024 05:53 PM Reporting Lab: [facility] [place] [address] [address] Performing Lab: [facility] [place] [address] [address] [facility] [place] [facility] URINALYS IS CLEAN CATCH COLOR OF URINE Yellow 04/07 Specimen Type: URINE Comment: If Glucose = >500 and Ketones are positive, please alert the Physician. Ordering Provider: JAMILA BARRON Report Released Date/Time: Apr 04, 2024 05:53 PM Reporting Lab: [facility] [place] [address] [address] Performing Lab: [facility] [place] [place] [address] [address] [facility] [place] [facility] URINALYS IS CLEAN CATCH APPEARANCE OF URINE Clear 04/07 Specimen Type: URINE Comment: If Glucose = >500 and Ketones are positive, please alert the Physician. Ordering Provider: JAMILA BARRON Report Released Date/Time: Apr 04, 2024 05:53 PM Reporting Lab: [facility] [place] [address] [address] Performing Lab: [facility] [place] [place] [facility] [address] [facility] [address] [facility] [place] [facility] URINALYS IS CLEAN CATCH GLUCOSE [MASS/VOLU ME] IN URINE Normalmg /dL 04/07 Specimen Type: URINE Comment: If Glucose = >500 and Ketones are positive, please alert the Physician. Ordering Provider: JAMILA BARRON Report Released Date/Time: Apr 04, 2024 05:53 PM Reporting Lab: [facility] [place] [place] [facility] [address] [facility] [address] Performing Lab: [facility] [place] [facility] [address] [facility] [address] [facility] [place] [facility] URINALYS IS CLEAN CATCH KETONES [MASS/VOLU ME] IN URINE BY TEST STRIP NEGATIVE mg/dL 04/07 Specimen Type: URINE Comment: If Glucose = >500 and Ketones are positive, please alert the Physician. Ordering Provider: JAMILA BARRON Report Released Date/Time: Apr 04, 2024 05:53 PM Reporting Lab: [facility] [place] [place] [facility]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 Diagnos is: ICD-10- CM H90.A31 Mix cndct/s nrl hear loss,un i,r ear w rstrcd hear cntra JOSEPHINE Selby R 03/24 [facility] HEARING AID EXAM BOTH EARS [id number] Diagnos is: ICD-10- CM 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 Diagnos is: ICD-10- CM I10 Essenti al (primar y) hyperte nsion RICO BARRON RD 04/13 [facility] En[facility] [id number] 1.04/14 [facility] [id number] [facility] Encounter [id number] 04/23 [facility] Encounter [id number] 1.04/24 [facility] OFFICE O/P EST MOD 30 MIN [id number] Diagnos is: ICD-10- CM 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 RANCHO RODRIGUEZ 04/28 [facility] CONFORMITY EVALUATION [id number] Diagnos is: ICD-10- CM Z46.1 Encount er for fitting and adjustm ent of hearing aid Yossi HARRINGTON 05/05 [facility] En[facility] [id number] 05/08 [facility] En[facility] [id number] [facility] Encounter [id number] 06/01 [facility] Encounter [id number] 06/03 [facility]counter [id number] 06/06 [facility] Encounter [id number] [facility] Encounter [id number] [facility] Encounter [id number] 06/19 [facility] Encounter [id number] 06/25 [facility] En[facility] [id number] 06/25 [facility] Encounter [id number] 06/26 [facility] Out[facility] Encounter [id number] 07/02 [facility] Encounter [id number] 07/06 [facility] Out[facility] Encounter [id number] 07/14 [facility] Encounter [id number] 07/14 [facility] Out[facility] Encounter [id number] 07/16 [facility] Encounter [id number] 07/20 [facility] Out[facility] Encounter [id number] 08/06 [facility] Out[facility] Encounter [id number] 08/27 [facility] OFFICE O/P EST MOD 30 MIN [id number] Diagnos is: ICD-10- CM 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 Social History Type Response Date Comment Sour e Tobacco smoking status NHIS [facility]BACCO FORMER [facility]ER [facility] of tobacco use DE-TOBACCO QUIT 15 YRS OR MORE 10/16[facility]20[facility] History of tobacco use VA-TOBACCO FORMER USER 07/04/2022 [facility] History of tobacco use NSG NO TOBACCO USE PAST 30 DAYS 03/27/2022 [place] History of tobacco use NSG NO TOBACCO USE PAST 30 DAYS 03/05/2022 [place] History of tobacco use NSG NO TOBACCO USE PAST 30 DAYS 03/02/2022 [place] History of tobacco use VA-TOBACCO FORMER USER 06[facility]28[facility]2021 [facility] History of tobacco use VA-TOBACCO FORMER USER 05/26/2020 [facility] History of tobacco use DE-TOBACCO NEVER USED 05/23/2018 [facility] Plan of Care List of future care activities from [facility] facilities. Additional future care activities may be listed in the Assessment and Plan section. Date/Time Care Activity Care Activity Detail Facili ty 10/07/2024 AMBULATORY - MEDICINE AMBULATORY - MEDICI [facility] 10/28/2024 AMBULATORY - MEDICINE AMBULATORY - MEDICI [place] [facility] Advance Directives List of completed, amended, or rescinded Advance Directives on record at Department [facility] Veterans Affairs facilities. An actual copy of the Directive is not included. Date Advance Directive Provider Source 02/19/2022 ADVANCE DIRECTIVE JOCE CASTORENA [facility] 11/16/2020 ADVANCE DIRECTIVE BYRON BARRON [facility]
--- OUTSIDE RECORDS SUMMARY | 2024-09-11 15:15 | XMS_ITS | Encounter Summary ---
Author Organization [facility] Address [address] [place] [address] Care Team Providers Care Kettle Cleaner Name Role Phone Adam Noonan MD Primary Care Provider Unava ilable Encounter Details Date Type Department Care Team Description 11/22/2017 Transfer Records Medical Records [address] [place] [id number] Abstract, Provider Social History Tobacco Use Types [...] on filedocumented in this encounter Care Teams Kettle Cleaner Relationship Specialty Start Date End Date Adam Noonan MD PCP - General Internal Medicine 11/19/17 documented as of this encounter
== END 2024-09-11 13:57 | disposition home or self-care (01) ==
DX: S82.62XD Displaced fracture of lateral malleolus of left fibula, subsequent encounter for closed fracture with routine healing (principal); M25.572 Pain in left ankle and joints of left foot
CPT/HCPCS: 99213

== ENCOUNTER → 2024-09-11 13:15 | Outpatient (BNV) | payer MEDICARE, SELFPAY | PROVIDERS: Visit Provider Radiology Diagnostic Radiology | DX: M25.572 Pain in left ankle and joints of left foot (principal) | CPT/HCPCS: 73610 ==

== ENCOUNTER 2024-09-16 12:54 | Outpatient (RCR) | payer MEDICARE, OTHER, SELFPAY ==
--- NOTE | 2024-09-16 15:09 | MHC.PT.EP ---
[facility] [place] Office [place] Office [place] Office [address] Anton Morales [address] [phone] F: [phone] F: [phone] F: [phone] F: [phone] Physical Therapy Plan of Care Date of Evaluation: 09/16/24 Date of Surgery: 01/21/2024 Diagnosis: displaced fx of lateral malleulus of L fibula s/p ORIF L ankle Assessment: Patient is a 83 year old male presenting to PT s/p L ankle ORIF on 01/21/2024. He presents today with impairments in pain, ankle ROM, ankle strength, gait mechanics, swelling, wound oozing. Pt's current occupation is [employer], retired otherwise, with baseline physical activities including ADLs, ambulating, stair negotiation. Pt expresses intermediate frame tender goal of returning to [facility], and is motivated to work towards this in PT. Clinical presentation today is most consistent with signs and sx associated with s/p L ankle ORIF 01/21/2024 and pt will benefit from skilled PT 2x week x 8 weeks to address the following problems and impairments noted upon evaluation: pain, ankle ROM, ankle strength, gait mechanics, swelling, wound oozing. Currently he is being worked up for concerns of infection in his ankle so therefore we will hold PT while this is pending and continue once cleared to do so. He also has new oozing over his lateral malleolus. These problems limit the patient with the following functional activities: ambulating, ADLs, stair negotiation. The prescribed treatment plan of care is medically necessary. Co-morbidities of hx cancer, heart murmur were identified and taken into considerations of plan of care. Pt was educated on HEP, role of PT, prognosis, POC. Frequency and Duration: The patient will be seen 2 x week x 8 weeks Short Term Goals: will provide once measurements are taken after pt is cleared from concerns of infection Halfway Goals: will provide once measurements are taken after pt is cleared from concerns of infection Treatment Plan: Modalities to reduce pain, spasms and effusion. Manual therapy to restore motion and function. Therapeutic exercise to improve strength and flexibility. Neuromuscular re-education for posture and balance. Therapeutic activities to return to functional activities of daily living. Electronically signed by: America Haddad, PT, DPT, ATC Please sign and return to therapist. Thank you for your referral.
--- NOTE | 2024-09-21 09:08 | MHC.PT.DC ---
[facility] [place] Office [place] Office [place] Office [address] Anton Morales [address] [phone] F: [phone] F: [phone] F: [phone] F: [phone] Physical Therapy Discharge Report Diagnosis: displaced fx of lateral malleulus of L fibula s/p ORIF L ankle Date of Surgery: 01/21/2024 Date of Evaluation: 09/16/24 Date of Discharge: 09/21/24 Treatments to Date: 1 Cancellations to Date: 0 No Shows to Date: 0 Discharge Status: Physician Discontinued Tx Recommend MD Follow-up Discharge Summary: Pt has septic arthritis. He is being treated with surgery and hospitalization for iv antibiotics with picc line. Therefore pt to be d/c due to change of status and will need new order with evaluation if PT is needed after surgery. Electronically signed by: America Haddad, PT, DPT, ATC Please sign and return to therapist. Thank you for your referral.
== END 2024-09-21 09:08 | disposition home or self-care (01) ==
LOC: HO.PTCHIC 12:54
DX: S82.62XD Displaced fracture of lateral malleolus of left fibula, subsequent encounter for closed fracture with routine healing (principal)
CPT/HCPCS: 97162

== ENCOUNTER → 2024-09-17 13:47 | Outpatient (BNV) | payer MEDICARE, OTHER, SELFPAY | PROVIDERS: Visit Provider Radiology Diagnostic Radiology | DX: M00.871 Arthritis due to other bacteria, right ankle and foot (principal); M25.472 Effusion, left ankle; S82.62XA Displaced fracture of lateral malleolus of left fibula, initial encounter for closed fracture | CPT/HCPCS: 73721 ==

== ENCOUNTER 2024-09-17 13:51 | Outpatient (REF) | payer MEDICARE, OTHER, SELFPAY ==
--- NOTE | ~2024-09-17 | MR_ITS ---
CLINICAL HISTORY: S82.62XA - Displaced fracture of lateral malleolus of left fibula, initi... MR left ankle Comparison: DX/SR - XR ANKLE LT MIN 3V - 09/11/24 13:15 EST DX/SR - XR ANKLE LT MIN 3V - 09/04/24 12:59 EST DX/SR - XR ANKLE LT MIN 3V - 08/24/24 13:43 EST DX/SR - XR ANKLE LT MIN 3V - 08/17/24 09:34 EST DX/SR - XR ANKLE LT MIN 3V - 07/20/24 13:46 EST Findings: There is edema in the distal tibia in the talus centered upon the tibiotalar joint. A metallic sideplate and screw fixation of the distal fibula limits evaluation for edema in the distal fibula; osteomyelitis can not be excluded]. Syndesmotic button fixation is present with focal cystic change/fluid measuring 1.6 x 1.6 x 1.5 cm in the distal tibia to the left of midline (series 8, image 17 and series 5, image 15). This is in continuity with the abnormal tibiotalar joint. Intact articulations. No osteophytes. Large joint effusion with synovitis. There is irregularity and discontinuity of the cortex at the tibiotalar joint involving both the tibia the talus (series 5 images 13 through 21 and series 4 images 11 through 18). The normal tibiotalar cartilage is no longer identified. The subtalar joint cartilage is preserved. Achilles, extensor and flexor tendons are intact. There is a small amount of fluid in the tendon sheaths of the tibialis posterior and flexor digitorum longus tendons which may indicate tenosynovitis. There is increased signal in the deltoid ligament with question of partial discontinuity; favor partial tear over sprain. Tear of the calcaneofibular and anterior talofibular ligaments. The anterior tibiofibular ligament is also likely torn. There is increased signal within the posterior talofibular and tibiofibular ligaments without definitive tear which may indicate sprain. Plantar fascia is intact. There is mild increased signal in the medial bundle which measures up to 3 mm in thickness which may indicate mild inflammation. Small calcaneal spur. Severe muscular atrophy. There is edema within the musculature. Impression: Tibiotalar septic arthritis. There is a large joint effusion with synovitis. There is cartilaginous and cortical destruction at the tibiotalar joint. Interosseous fluid collection in the distal tibia measuring up to 1.6 cm around the syndesmotic fixation hardware and in continuity with the joint may indicate an interosseous abscess. This document has been electronically signed by: Maritza Caldera MD on 09/17/2024 15:55:55
--- OUTSIDE RECORDS SUMMARY | 2024-09-17 16:53 | XMS_ITS | Patient Health Record ---
Author Organization [facility] [place] Address [address] [place] [address] Care Team Providers Care Civil Service Worker Name Role Phone Josue Simmons MD Primary Care Provider Lyn Aquino Unavailable [phone] Allergies Allergen (clinical drug ingredient) Drug/Non Drug [...] primary osteoarthritis of the ankle and/or foot ([id number]) Primary osteoarthrit is, right ankle and foot (M19.071) Active confirmed Encounters Encounter Location Date Provider Diagnosis [facility] [place] [address] [place] [address] 03/09/2024 Lyn Lund [facility] [place] [address] [facility] [place] [address] 03/12/2024 Lyn Lund [facility] [place] [address] [facility] [place] [address] 04/02/2024 Lyn Lund Plan Of Treatment Pending Test Test Name Order Date X ray : Foot, right 3V 01/20/2015 X ray : Ankle, right 3V 03/04/2017 Insurance Providers Payer Name Payer Address Payer Phone Subscriber Number Group Number Insured Name Patient Relationship to Insured Coverage Start Date Coverage End Date Medicare [employer] [address] [place] [address] [id number] Reed Mallory Self - patient is the insured [employer] [address] [place] [address] Reed Mallory Self - patient is the [...]
--- OUTSIDE RECORDS SUMMARY | 2024-09-17 16:53 | XMS_ITS ---
Author Organization [facility] Address [address] [place] [address] Care Team Providers Care Glove Presser Name Role Phone Josue Simmons MD Primary Care Provider Unavailab Lyn Damico [phone] REASON FOR VISIT RECEPTION MANAGER PPWK Entered Encounters Encounter Location Date Provider Diagnosis [facility] [address] [place] [address] 03/12/2024 Lyn Lund Plan Of Treatment No Information Progress Notes * Reed MALLORY HDOB:1940 (83 yo M)Acc No.[id number]:03/12/2024 Patient:?Reed Mallory :1940???Age:83 Y???Sex:Male Address:[address] [place] [id number] * true * Date:? Generated for Printi ng/Faphilly/eTransmitting on:?09/17/2024 04:53 PM EST
--- OUTSIDE RECORDS SUMMARY | 2024-09-17 16:53 | XMS_ITS ---
Author Organization [facility] Address [address] [place] [address] Care Team Providers Care Vibration Technician Name Role Phone Josue Simmons MD Primary Care Provider Unavailab melinda Lyn Lund Unavailable [phone] Allergies Allergen (clinical drug ingredient) Drug/Non Drug [...] 04/23/2024 Encounters Encounter Location Date Provider Diagnosis [facility] [address] [place] [address] 04/23/2024 Lyn Lund Plan Of Treatment No Information Progress Notes * Reed MALLORY HDOB:1940 (83 yo M)Acc No.[id number]:04/23/2024 Progress Notes Patient:Reed VANCE Provider:?Lyn Lund DPM :1940???Age:83 Y???Sex:Male Chu e:04/23/2024 Address:[address] [place], [place] [id number] Pcp:Josue Simmons MD Subjective: * Chief Complaints: [...] Lund DPM Date:?2023 Generated for Yokasta palacios/Ilda/Sunil on:?09/17/2024 04:53 PM EST
--- OUTSIDE RECORDS SUMMARY | 2024-09-17 16:53 | XMS_ITS ---
Author Organization [facility] Address [address] [place] [address] Care Team Providers Care Supervisor Photostat Name Role Phone Josue Simmons MD Primary Care Provider Unavailab Lyn Damico [phone] REASON FOR VISIT 04/23/24 Encounters Encounter Location Date Provider Diagnosis [facility] [address] [place] [address] 04/02/2024 Lyn Lund Plan Of Treatment No Information Progress Notes * Reed MALLORY HDOB:1940 (83 yo M)Acc No.[id number]:04/02/2024 Patient:?Reed Mallory :1940???Age:83 Y???Sex:Male Address:[address] [place] [address] * true * Date:? Generated for Printi philip/Ilda/eTransmitting on:?09/17/2024 04:53 PM EST
--- OUTSIDE RECORDS SUMMARY | 2024-09-17 16:53 | XMS_ITS | Continuity of Care Document ---
Author Name [facility] Organization [facility] Care Team Providers Care Adult Caregiver Name Role Phone [facility] Unavailable Unavailable Problems Combined list of problems from Department of Defense and Veterans Affairs facilities. It does not include entries that were removed or entered in error. Problem Status Onset Date Problem Type Date of Resolution Comments Source Chronic dermatitis Active 023 Condition Oct 05, 2022 Entered By: BYRON BARRON Comment: referred to dermatology [facility] Chest Pain (SCT [id number]) Active Condition Jan 02, 2022 Entered By: BYRON BARRON Comment: ordered stress test [facility] COPD - Chronic Obstructive Pulmonary Disease (SCT [id number]) Active Condition Dec 28, 2021 Entered By: BYRON BARRON Comment: on inhalers [facility] Cataract Active Condition Oct 12, 2020 Entered By: BYRON BARRON Comment: referred for surgery [facility] HTN - Hypertension (SCT [id number]) Active Condition Oct 21, 2020 Entered By: BYRON BARRON Comment: treated witn medication [facility] Hypercholesterolemia (SCT [id number]) Active Condition Oct 21, 2020 Entered By: [...] TWICE DAILY FOR INFECTIO N ORAL 11/15/2023 [id number] MAUREEN BARRON D 2023 20 [facility] ASPIRIN 81MG TAB,CHEWABL E CHEW ONE TABLET BY MOUTH ONCE DAILY ORAL ACTIVE JANINE HAMMOND R 2021 [facility] ATORVASTATI N CA 80MG TAB TAKE ONE TABLET BY MOUTH AT BEDTIME ORAL ACTIVE 06/26/2025 [id number] 4 MAUREEN BARRON D 2023 90 [facility] ATORVASTATI N CA 80MG TAB TAKE ONE TABLET BY MOUTH AT BEDTIME ORAL DISCONT INUED 06/19/2024 [id number] 4 MOHAMUD ARGUETA 2022 90 [facility] CARBOXYMETH YLCELLULOSE NA 0.5% SOLN,OPH INSTILL 1 DROP INTO EACH EYE FOUR TIMES A DAY FOR DRY EYE OPHTHA LMIC ACTIVE 09/02/2025 [id number] OSBALDO CALDERON EY J 2024 45 [facility] CEPHALEXIN 500MG CAP TAKE ONE CAPSULE BY MOUTH EVERY 8 HOURS FOR INFECTIO N ORAL 04/04/2024 [id number] 4 MAMTA STERN 2023 21 [facility] EYELID CLEANSER,EY E SCRUB PAD USE 1 PAD TOPICALL Y EVERY MORNING BLEPHARI TIS TOPICA L ACTIVE 09/02/2025 [id number] 5 OSBALDO CALDERON EY J 2024 90 [facility] EZETIMIBE 10MG TAB TAKE ONE TABLET BY MOUTH ONCE DAILY TO LOWER CHOLESTE ROL ORAL ACTIVE 06/26/2025 [id number] 4 MAUREEN BARRON D 2023 90 [facility] EZETIMIBE 10MG TAB TAKE ONE TABLET BY MOUTH ONCE DAILY TO LOWER CHOLESTE ROL ORAL DISCONT INUED 06/19/2024 [id number] 4 KENDALL,MOHAMUD AV 2022 90 [facility] HYDROCHLORO THIAZIDE 25MG TAB TAKE ONE TABLET BY MOUTH ONCE DAILY ORAL 06/19/2024 [id number] 4 KENDALL,MOHAMUD AV 2023 90 [facility] METOPROLOL SUCCINATE 50MG TAB,SA TAKE ONE TABLET BY MOUTH ONCE DAILY FOR BLOOD PRESSURE /HEART ORAL ACTIVE 06/26/2025 [id number] 4 MAUREEN BARRON PAIGE D 2023 90 [facility] METOPROLOL SUCCINATE 50MG TAB,SA TAKE ONE TABLET BY MOUTH ONCE DAILY FOR BLOOD PRESSURE /HEART ORAL DISCONT INUED 06/19/2024 [id number] KENDALL,MOHAMUD AV 2022 90 [facility] TRIAMCINOLO NE ACETONIDE 0.1% CREAM,TOP APPLY A MODERATE AMOUNT TOPICALL Y TWICE DAILY NEEDED FOR ITCHING TOPICA L ACTIVE 10/24/2024 [id number] 4 MAUREEN BARRON PAIGE D 2023 454 [facility] Allergies, Adverse Reactions, Alerts Combined list of allergies from Department of Defense and Veterans Affairs facilities. It does not include entries that were removed or entered in error. Substance Category Reaction Severity Reaction type Status Date Reported Comments Source LIDOCAINE Propensity to adverse reactions to drug (finding) Itching MODERATE active 2 [facility] [place]OV[place] Propensity to adverse reactions to drug (finding) Feeling agitated active 8 [facility] PROCAINE Propensity to adverse reactions to drug (finding) active 2 [facility] Immunizations Combined list of available immunizations from the Department of Defense and Veterans Affairs facilities. Immunization Series Date Given Administered By Site Reaction Lot Number CVX Code Drug Cargo Service Agent Status Comments Source COVID-19 (MODERNA), MRNA, LNP-S, PF, 50 MCG/0.5 ML (AGES 12+ YEARS) 7 2023 ALMA MAHER LEFT DELTO ID [id number] 312 complet ed [facility] INFLUENZA, HIGH-DOSE, TRIVALENT, PF 2023 ALMA MAHER M LEFT [place] ID [id number] 135 complet ed [facility] RSV, BIVALENT, PROTEIN SUBUNIT RSVPREF, DILUENT RECONSTITUTED , 0.5 ML, PF 1 2023 GRETCHEN ANDRADE E LEFT DELTO ID [id number] 305 complet ed [facility] COVID-19 (MODERNA), MRNA, LNP-S, PF, 50 MCG/0.5 ML (AGES 12+ YEARS) 1 2023 GRETCHEN ANDRADE E LEFT DELTO ID [id number] 312 complet ed [facility] INFLUENZA, HIGH-DOSE, QUADRIVALENT 2022 JERRI SHAIKH M LEFT [place] ID [id number] 197 complet ed [facility] COVID-19 (MODERNA), MRNA, LNP-S, BIVALENT BOOSTER, PF, 50 MCG/0.5 ML OR 25MCG/0.25 ML DOSE 2021 JERRI SHAIKH ER M LEFT [place] ID [id number] 229 complet ed [facility] INFLUENZA VACCINE, QUADRIVALENT, ADJUVANTED 2021 205 complet ed [facility] COVID-19 (MODERNA), MRNA, LNP-S, PF, 100 MCG/0.5ML DOSE OR 50 MCG/0.25ML DOSE 3 2021 207 complet ed MOD; [id number] ; 2 [facility] PNEUMOCOCCAL CONJUGATE PCV20, POLYSACCHARID E [id number] CONJUGATE, ADJUVANT, PF 2021 216 complet ed [facility] COVID-19 (MODERNA), MRNA, LNP-S, PF, 100 MCG OR 50 MCG DOSE 3 2020 207 complet ed MOD; [id number]; 2 [facility] INFLUENZA, UNSPECIFIED FORMULATION 2020 88 complet ed [facility] TDAP 2020 115 complet ed [facility] COVID-19 (MODERNA), MRNA, LNP-S, PF, 100 MCG/0.5 ML DOSE 2 2020 207 complet ed MOD; [id number]; 1 [facility] COVID-19 (MODERNA), MRNA, LNP-S, PF, 100 MCG/0.5 ML DOSE 1 2020 207 complet ed MOD; [id number]; 1 [facility] [...] DOSE SEASONAL 2017 135 complet ed Partner: [facility]. Administe red by: ARLET BOLTON (HDB=[phone]). Partner 0 Lot#: [id number] Mfr: Sanofi P[employer]ur; Dosage: 0.5 [facility] PNEUMOCOCCAL POLYSACCHARID E PPV23 2016 33 complet ed Partner: [facility] Administe red by: ARLET BOLTON (TBT=[phone]). Partner 0 Lot#: [id number] Mfr: [employer]; Dosage: 0.5 [facility] INFLUENZA, HIGH DOSE SEASONAL 2016 135 complet ed [facility] Administe red by: ARLET BOLTON (RQA=[phone]). Partner 0 Lot#: [id number] Mfr: Sanofi Pasteur; Dosage: 0.5 [facility] [place] Results Combined list of recent [...] Apr 04, 2024 05:53 PM Reporting Lab: [facility] [place] [address] [address] Performing Lab: [facility] [place] [address] [address] [facility] [place] [facility] LIVER FUNCTION ALBUMIN [MASS/VOLU ME] IN SERUM OR PLASMA 4.0 g/dL 3.5 - 5.0 04/07 Specimen Type: SERUM No comment entered. Ordering Provider: JAMILA BARRON Report Released Date/Time: Apr 04, 2024 05:53 PM Reporting Lab: [facility] [place] [address] [address] Performing Lab: [facility] [place] [address] [address] [facility] [place] [facility] LIVER FUNCTION ALKALINE PHOSPHATAS E [ENZYMATIC ACTIVITY/V OLUME] IN SERUM OR PLASMA 118 U/L 40 - 150 04/07 Specimen Type: SERUM No comment entered. Ordering Provider: JAMILA BARRON Report Released Date/Time: Apr 04, 2024 05:53 PM Reporting Lab: [facility] [place] [facility] [address] [facility] [address] Performing Lab: [facility] [place] [address] [address] [facility] [place] [facility] LIVER FUNCTION ASPARTATE AMINOTRANS FERASE [ENZYMATIC ACTIVITY/V OLUME] IN SERUM OR PLASMA 30 U/L 5 - 34 04/07 Specimen Type: SERUM No comment entered. Ordering Provider: JAMILA BARRON Report Released Date/Time: Apr 04, 2024 05:53 PM Reporting Lab: [facility] [place] [facility] [address] [facility] [address] Performing Lab: [facility] [place] [facility] [address] [facility] [address] [facility] [place] [facility] LIVER FUNCTION ALANINE AMINOTRANS FERASE [ENZYMATIC ACTIVITY/V OLUME] IN SERUM OR PLASMA 23 U/L 04/07 Specimen Type: SERUM No comment entered. Ordering Provider: JAMILA BARRON Report Released Date/Time: Apr 04, 2024 05:53 PM Reporting Lab: [facility] [place] [facility] [address] [facility] [address] Performing Lab: [facility] [place] [address] [address] [facility] [place] [facility] LIVER FUNCTION BILIRUBIN. TOTAL [MASS/VOLU ME] IN SERUM OR PLASMA 1.0 mg/dL 0.2 - 1.2 04/07 Specimen Type: SERUM No comment entered. Ordering Provider: JAMILA BARRON Report Released Date/Time: Apr 04, 2024 05:53 PM Reporting Lab: [facility] [place] [facility] [address] [facility] [address] Performing Lab: [facility] [place] [address] [address] [facility] [place] [facility] BASIC METABOLI C PANEL (fasting ) UREA NITROGEN [MASS/VOLU ME] IN SERUM OR PLASMA 22 mg/dL 7 - 25 04/07 Specimen Type: SERUM No comment entered. Ordering Provider: JAMILA BARRON Report Released Date/Time: Apr 04, 2024 05:53 PM Reporting Lab: [facility] [place] [address] [address] Performing Lab: [facility] [place] [address] [address] [facility] [place] [facility] BASIC METABOLI C PANEL (fasting ) GLUCOSE [MASS/VOLU ME] IN SERUM OR PLASMA 93 mg/dL 65 - 100 04/07 Specimen Type: SERUM No comment entered. Ordering Provider: JAMILA BARRON Report Released Date/Time: Apr 04, 2024 05:53 PM Reporting Lab: [facility] [address] [address] Performing Lab: [facility] [address] [address] [facility] BASIC METABOLI C PANEL (fasting ) SODIUM [MOLES/VOL UME] IN SERUM OR PLASMA 139 mmol/L 135 - 145 04/07 Specimen Type: SERUM No comment entered. Ordering Provider: JAMILA BARRON Report Released Date/Time: Apr 04, 2024 05:53 PM Reporting Lab: [address] [address] Performing Lab: [facility] [address] [address] [facility] BASIC METABOLI C PANEL (fasting ) POTASSIUM [MOLES/VOL UME] IN SERUM OR PLASMA 3.9 mmol/L 3.5 - 5.0 04/07 Specimen Type: SERUM No comment entered. Ordering Provider: JAMILA BARRON Report Released Date/Time: Apr 04, 2024 05:53 PM Reporting Lab: [facility] [address] [address] Performing Lab: [facility] [address] [address] [facility] BASIC METABOLI C PANEL (fasting ) CHLORIDE [MOLES/VOL UME] IN SERUM OR PLASMA 102 mmol/L 100 - 110 04/07 Specimen Type: SERUM No comment entered. Ordering Provider: JAMILA BARRON Report Released Date/Time: Apr 04, 2024 05:53 PM Reporting Lab: [facility] [address] [address] Performing Lab: [facility] [address] [address] [address] [facility]ERN [facility]USE [facility] BASIC METABOLI C PANEL (fasting ) CARBON DIOXIDE, TOTAL [MOLES/VOL UME] IN SERUM OR PLASMA 26 meq/L 20 - 30 04/07 Specimen Type: SERUM No comment entered. Ordering Provider: JAMILA BARRON Report Released Date/Time: Apr 04, 2024 05:53 PM Reporting Lab: [facility] COUNTYTRN [facility] [address] [facility] [address] Performing Lab: [facility]SONRL TRN [facility]OSPITALUSE[address] [address] [facility] BASIC METABOLI C PANEL (fasting ) CREATININE [MASS/VOLU ME] IN SERUM OR PLASMA 0.92 mg/dL 0.50 - 1.40 04/07 Specimen Type: SERUM No comment entered. Ordering Provider: JAMILA BARRON Report Released Date/Time: Apr 04, 2024 05:53 PM Reporting Lab: [facility] TRN [facility] HOSPITALUSE[address] [address] Performing Lab: [facility] TRN [facility]PITALUSE[address] [address] [facility]OSPITALUSE [facility] BASIC METABOLI C PANEL (fasting ) GLOMERULAR FILTRATION RATE/1.73 SQ M.PREDICTE D [VOLUME RATE/AREA] IN SERUM, PLASMA OR BLOOD BY CREATININE -BASED FORMULA (CKD-EPI 2020) 82 mL/min 60 04/07 Specimen Type: SERUM No comment entered. Ordering Provider: JAMILA BARRON Report Released Date/Time: Apr 04, 2024 05:53 PM Reporting Lab: [facility] TRN [facility]OSPITALUSE[address] [address] Performing Lab: [facility]WO[facility] CENTERN [facility] HOSPITALUSE[address] [address] [facility]ITALUSE [facility] TSH THYROTROPI N [UNITS/VOL UME] IN SERUM OR PLASMA 2.34 u[IU]/mL 0.35 - 5.00 04/07 Specimen Type: SERUM No comment entered. Ordering Provider: JAMILA BARRON Report Released Date/Time: Apr 04, 2024 05:53 PM Reporting Lab: [facility] [place] [facility] [address] [facility] [facility] [address] Performing Lab: [facility] [address] [facility] [address] [facility] [facility] LIPID PANEL FASTING CHOLESTERO L [MASS/VOLU ME] IN SERUM OR PLASMA 139 mg/dL 04/07 Specimen Type: SERUM No comment entered. Ordering Provider: JAMILA BARRON Report Released Date/Time: Apr 04, 2024 05:53 PM Reporting Lab: [facility] [place] [facility] [address] [facility] [address] Performing Lab: [facility] [place] [facility] [address] [facility] [address] [facility] [place] [facility] LIPID PANEL FASTING TRIGLYCERI DE [MASS/VOLU ME] IN SERUM OR PLASMA 136 mg/dL 0 - 150 04/07 Specimen Type: SERUM No comment entered. Ordering Provider: JAMILA BARRON Report Released Date/Time: Apr 04, 2024 05:53 PM Reporting Lab: [facility] [place] [facility] [address] [facility] [address] Performing Lab: [facility] [place] [facility] [address] [facility] [address] [facility] [place] [facility] LIPID PANEL FASTING CHOLESTERO L IN LDL [MASS/VOLU ME] IN SERUM OR PLASMA BY CALCULATIO N 72 mg/dL 0 - 129 04/07 Specimen Type: SERUM No comment entered. Ordering Provider: JAMILA BARRON Report Released Date/Time: Apr 04, 2024 05:53 PM Reporting Lab: [facility] [place] [facility] [address] [facility] [address] Performing Lab: [facility] [place] [facility] [address] [facility] [address] [facility] [place] [facility] LIPID PANEL FASTING CHOLESTERO L.TOTAL/CH OLESTEROL IN HDL [MASS RATIO] IN SERUM OR PLASMA 3.5 04/07 Specimen Type: SERUM No comment entered. Ordering Provider: JAMILA BARRON Report Released Date/Time: Apr 04, 2024 05:53 PM Reporting Lab: [facility] [place] [facility] [address] [facility] [address] Performing Lab: [facility]N [facility]ITAL[facility]ETS [facility] [address] [facility] [address] [facility] [place] [facility] LIPID PANEL FASTING CHOLESTERO L IN HDL [MASS/VOLU ME] IN SERUM OR PLASMA 40 mg/dL 40 - 60 04/07 Specimen Type: SERUM No comment entered. Ordering Provider: JAMILA BARRON Report Released Date/Time: Apr 04, 2024 05:53 PM Reporting Lab: [facility] [place] [facility] [address] [facility] [address] Performing Lab: [facility]PITALUSETS [address] [address] [facility] WSTRN [facility] HOSPITALCHUSE [facility] CBC AND DIFF (AUTO) LEUKOCYTES [#/VOLUME] IN BLOOD BY AUTOMATED COUNT 7.77 10*3/uL 4.50 - 11.00 04/07 Specimen Type: BLOOD No comment entered. Ordering Provider: JAMILA BARRON Report Released Date/Time: Apr 04, 2024 05:53 PM Reporting Lab: [facility] [place] [address] [address] Performing Lab: [facility] [place] [facility] [address] [facility] [address] [facility] [place] [facility] CBC AND DIFF (AUTO) ERYTHROCYT ES [#/VOLUME] IN BLOOD BY AUTOMATED COUNT 4.29 10*6/uL 4.23 - 5.66 04/07 Specimen Type: BLOOD No comment entered. Ordering Provider: JAMILA BARRON Report Released Date/Time: Apr 04, 2024 05:53 PM Reporting Lab: [facility] [place] [address] [address] Performing Lab: [facility] [place] [address] [address] [facility] [place] [facility] CBC AND DIFF (AUTO) HEMOGLOBIN [MASS/VOLU ME] IN BLOOD 14.2 g/dL 12.8 - 17 04/07 Specimen Type: BLOOD No comment entered. Ordering Provider: JAMILA BARRON Report Released Date/Time: Apr 04, 2024 05:53 PM Reporting Lab: [facility] [place] [facility] [address] [facility] [address] Performing Lab: [facility] [place] [facility] [address] [facility] [address] [facility] [place] [facility] CBC AND DIFF (AUTO) HEMATOCRIT [VOLUME FRACTION] OF BLOOD BY AUTOMATED COUNT 41.1 39.2 - 50.4 04/07 Specimen Type: BLOOD No comment entered. Ordering Provider: JAMILA BARRON Report Released Date/Time: Apr 04, 2024 05:53 PM Reporting Lab: [facility] [place] [address] [address] Performing Lab: [facility] [place] [facility] [address] [facility] [address] [facility] [place] [facility] CBC AND DIFF (AUTO) MCV [ENTITIC VOLUME] BY AUTOMATED COUNT 95.8 fL 82 - 99 04/07 Specimen Type: BLOOD No comment entered. Ordering Provider: JAMILA BARRON Report Released Date/Time: Apr 04, 2024 05:53 PM Reporting Lab: [facility] [place] [facility] [address] [facility] [address] Performing Lab: [facility] [place] [facility] [address] [facility] [address] [facility] [place] [facility] CBC AND DIFF (AUTO) MCHC [MASS/VOLU ME] BY AUTOMATED COUNT 34.5 g/dL 30.8 - 35.1 04/07 Specimen Type: BLOOD No comment entered. Ordering Provider: JAMILA BARRON Report Released Date/Time: Apr 04, 2024 05:53 PM Reporting Lab: [facility] [place] [facility] [address] [facility] [address] Performing Lab: [facility] [place] [facility] [address] [facility] [address] [facility] [place] [facility] CBC AND DIFF (AUTO) PLATELETS [#/VOLUME] IN BLOOD BY AUTOMATED COUNT 184 10*3/uL 140 - 360 04/07 Specimen Type: BLOOD No comment entered. Ordering Provider: JAMILA BARRON Report Released Date/Time: Apr 04, 2024 05:53 PM Reporting Lab: [facility] [place] [facility] [address] [facility] [address] Performing Lab: [facility] [place] [facility] [address] [facility] [address] [facility] [place] [facility] CBC AND DIFF (AUTO) ERYTHROCYT E DISTRIBUTI ON WIDTH [RATIO] BY AUTOMATED COUNT 13.1 12.0 - 16.0 04/07 Specimen Type: BLOOD No comment entered. Ordering Provider: JAMILA BARRON Report Released Date/Time: Apr 04, 2024 05:53 PM Reporting Lab: [facility] [place] [facility] [address] [facility] [address] Performing Lab: [facility] [place] [facility] [address] [facility] [address] [facility] [place] [facility] CBC AND DIFF (AUTO) MONOCYTES [#/VOLUME] IN BLOOD BY AUTOMATED COUNT 0.98 10*3/uL 0.30 - 1.10 04/07 Specimen Type: BLOOD No comment entered. Ordering Provider: JAMILA BARRON Report Released Date/Time: Apr 04, 2024 05:53 PM Reporting Lab: [facility] [place] [facility] [address] [facility] [address] Performing Lab: [facility] [place] [facility] [address] [facility] [address] [facility] [place] [facility] CBC AND DIFF (AUTO) MCH [ENTITIC MASS] BY AUTOMATED COUNT 33.1 pg 26.2 - 32.6 04/07 H Specimen Type: BLOOD No comment entered. Ordering Provider: JAMILA BARRON Report Released Date/Time: Apr 04, 2024 05:53 PM Reporting Lab: [facility] [place] [facility] [address] [address] Performing Lab: [facility] [place] [facility] [address] [address] [facility] [place] [facility] CBC AND DIFF (AUTO) NEUTROPHIL S/100 LEUKOCYTES IN BLOOD BY AUTOMATED COUNT 52.3 43.7 - 75.8 04/07 Specimen Type: BLOOD No comment entered. Ordering Provider: JAMILA BARRON Report Released Date/Time: Apr 04, 2024 05:53 PM Reporting Lab: [facility] [place] [facility] [address] [address] Performing Lab: [facility] [place] [facility] [address] [address] [facility] [place] [facility] CBC AND DIFF (AUTO) LYMPHOCYTE S/100 LEUKOCYTES IN BLOOD BY AUTOMATED COUNT 31.7 14.0 - 42.3 04/07 Specimen Type: BLOOD No comment entered. Ordering Provider: JAMILA BARRON Report Released Date/Time: Apr 04, 2024 05:53 PM Reporting Lab: [facility] [place] [facility] [address] [address] Performing Lab: [facility] [place] [facility] [address] [facility] [address] [facility] [place] [facility] CBC AND DIFF (AUTO) MONOCYTES/ 100 LEUKOCYTES IN BLOOD BY AUTOMATED COUNT 12.6 5.1 - 13.7 04/07 Specimen Type: BLOOD No comment entered. Ordering Provider: JAMILA BARRON Report Released Date/Time: Apr 04, 2024 05:53 PM Reporting Lab: [facility] [place] [facility] [address] [address] Performing Lab: [facility] [place] [facility] [address] [address] [facility] [place] [facility] CBC AND DIFF (AUTO) EOSINOPHIL S/100 LEUKOCYTES IN BLOOD BY AUTOMATED COUNT 2.3 0.4 - 6.8 04/07 Specimen Type: BLOOD No comment entered. Ordering Provider: JAMILA BARRON Report Released Date/Time: Apr 04, 2024 05:53 PM Reporting Lab: [facility] [place] [facility] [address] [facility] [address] Performing Lab: [facility] [place] [facility] [address] [facility] [address] [facility] [place] CBC AND DIFF (AUTO) BASOPHILS/ 100 LEUKOCYTES IN BLOOD BY AUTOMATED COUNT 0.6 0.1 - 2.0 04/07 Specimen Type: BLOOD No comment entered. Ordering Provider: JAMILA BARRON Report Released Date/Time: Apr 04, 2024 05:53 PM Reporting Lab: [facility] [place] [facility] [address] [facility] [address] Performing Lab: [facility] [place] [facility] [address] [facility] [address] [facility] [place] CBC AND DIFF (AUTO) NEUTROPHIL S [#/VOLUME] IN BLOOD BY AUTOMATED COUNT 4.06 10*3/uL 2.20 - 7.60 04/07 Specimen Type: BLOOD No comment entered. Ordering Provider: JAMILA BARRON Report Released Date/Time: Apr 04, 2024 05:53 PM Reporting Lab: [facility] [place] [facility] [address] [facility] [address] Performing Lab: [facility] [place] [facility] [address] [facility] [address] [facility] [place] [facility] CBC AND DIFF (AUTO) LYMPHOCYTE S [#/VOLUME] IN BLOOD BY AUTOMATED COUNT 2.46 10*3/uL 1.00 - 3.20 04/07 Specimen Type: BLOOD No comment entered. Ordering Provider: JAMILA BARRON Report Released Date/Time: Apr 04, 2024 05:53 PM Reporting Lab: [facility] [place] [facility] [address] [facility] [address] Performing Lab: [facility] [place] [facility] [address] [facility] [address] [facility] [place] CBC AND DIFF (AUTO) EOSINOPHIL S [#/VOLUME] IN BLOOD BY AUTOMATED COUNT 0.18 10*3/uL 0.03 - 0.44 04/07 Specimen Type: BLOOD No comment entered. Ordering Provider: JAMILA BARRON Report Released Date/Time: Apr 04, 2024 05:53 PM Reporting Lab: [facility] [place] [address] [address] Performing Lab: [facility] [place] [address] [address] [facility] [place] [facility] CBC AND DIFF (AUTO) BASOPHILS [#/VOLUME] IN BLOOD BY AUTOMATED COUNT 0.05 10*3/uL 0.01 - 0.13 04/07 Specimen Type: BLOOD No comment entered. Ordering Provider: JAMILA BARRON Report Released Date/Time: Apr 04, 2024 05:53 PM Reporting Lab: [facility] [place] [address] [address] Performing Lab: [facility] [place] [address] [address] [facility] [place] [facility] CBC AND DIFF (AUTO) IMMATURE GRANULOCYT ES/100 LEUKOCYTES IN BLOOD BY AUTOMATED COUNT 0.5 0.0 - 0.7 04/07 Specimen Type: BLOOD No comment entered. Ordering Provider: JAMILA BARRON Report Released Date/Time: Apr 04, 2024 05:53 PM Reporting Lab: [facility] [place] [address] [address] Performing Lab: [facility] [place] [address] [address] [facility] [place] [facility] CBC AND DIFF (AUTO) IMMATURE GRANULOCYT ES [#/VOLUME] IN BLOOD 0.04 10*3/uL 0.00 - 0.06 04/07 Specimen Type: BLOOD No comment entered. Ordering Provider: JAMILA BARRON Report Released Date/Time: Apr 04, 2024 05:53 PM Reporting Lab: [facility] [place] [address] [address] Performing Lab[facility] [place] [facility] [address] [facility] [address] [facility] [place] [facility] CBC AND DIFF (AUTO) NRBC % 0.0 0.0 - 0.0 04/07 Specimen Type: BLOOD No comment entered. Ordering Provider: JAMILA BARRON Report Released Date/Time: Apr 04, 2024 05:53 PM Reporting Lab: [facility] [place] [facility] [address] [facility] [address] Performing Lab: [facility] [place] [facility] [address] [facility] [address] [facility] [place] [facility] CBC AND DIFF (AUTO) NRBC, ABS 0.00 10*3/uL 0.00 - 0.00 04/07 Specimen Type: BLOOD No comment entered. Ordering Provider: JAMILA BARRON Report Released Date/Time: Apr 04, 2024 05:53 PM Reporting Lab: [facility] [place] [address] [address] Performing Lab: [facility] [place] [address] [address] [facility] [place] [facility] URINALYS IS CLEAN CATCH COLOR OF URINE Yellow 04/07 Specimen Type: URINE Comment: If Glucose = >500 and Ketones are positive, please alert the Physician. Ordering Provider: JAMILA BARRON Report Released Date/Time: Apr 04, 2024 05:53 PM Reporting Lab: [facility] [place] [address] [address] Performing Lab: [facility] [place] [address] [address] [facility] [place] [facility] URINALYS IS CLEAN CATCH APPEARANCE OF URINE Clear 04/07 Specimen Type: URINE Comment: If Glucose = >500 and Ketones are positive, please alert the Physician. Ordering Provider: JAMILA BARRON Report Released Date/Time: Apr 04, 2024 05:53 PM Reporting Lab: [facility] [place] [address] [address] Performing Lab: [facility] [place] [facility] [address] [facility] [address] [facility] [place] [facility] URINALYS IS CLEAN CATCH GLUCOSE [MASS/VOLU ME] IN URINE Normalmg /dL 04/07 Specimen Type: URINE Comment: If Glucose = >500 and Ketones are positive, please alert the Physician. Ordering Provider: JAMILA BARRON Report Released Date/Time: Apr 04, 2024 05:53 PM Reporting Lab: [facility] [place] [facility] [address] [facility] [address] Performing Lab: [facility] [place] [facility] [address] [facility] [address] [facility] [place] [facility] URINALYS IS CLEAN CATCH KETONES [MASS/VOLU ME] IN URINE BY TEST STRIP NEGATIVE mg/dL 04/07 Specimen Type: URINE Comment: If Glucose = >500 and Ketones are positive, please alert the Physician. Ordering Provider: JAMILA BARRON Report Released Date/Time: Apr 04, 2024 05:53 PM Reporting Lab: [facility] [place] [facility] [address] [facility] [address] Performing Lab: [facility] [place] [facility] [address] [facility] [address] [facility] [place] [facility] URINALYS IS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 [facility] [place] En[facility] [id number] 02/10 [facility] [place] Encounter [id number] 02/13 [facility] [place] [place] Encounter [id number] 03/04 [facility] [place] [place] Encounter [id number] 03/04 [facility] [place] OFF/OP EST MAY X REQ PHY/QHP [id number] Diagnos is: ICD-10- CM Z71.89 Other specifi ed counselor camp JOSIE Duval 03/05 [facility] [place] OFFICE O/P EST LOW 20 MIN [id number] Diagnos is: ICD-10- CM L60.1 Onychol PASCUAL Lechuga 03/05 [facility] [place] OFF/OP EST MAY X REQ PHY/QHP [id number] Diagnos is: ICD-10- CM Z48.01 Encount er for change or removal of surgica l wound KAVEH Fox 03/06 [facility] [place] En[facility] [id number] 03/18 [facility] [place] OFF/OP CNSLTJ NEW/EST MOD 40 [id number] Diagnos is: ICD-10- CM H90.A31 Mix cndct/s nrl hear loss,un i,r ear w rstrcd hear cntra JOSEPHINE Selby R 03/24 [facility] [place] HEARING AID EXAM BOTH EARS [id number] Diagnos is: ICD-10- CM 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 Diagnos is: ICD-10- CM I10 Essenti al (primar y) hyperte nsion RICO BARRON RD 04/13 [facility] [place] En[facility] [id number] 1.04/14 [facility] [place] Encounter [id number] [facility] [place] Encounter [id number] 04/23 [facility] [place] Encounter [id number] 1.04/24 [facility] [place] OFFICE O/P EST MOD 30 MIN [id number] Diagnos is: ICD-10- CM 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 RANCHO RODRIGUEZ 04/28 [facility] [place] CONFORMITY EVALUATION [id number] Diagnos is: ICD-10- CM Z46.1 Encount er for fitting and adjustm ent of hearing aid Yossi HARRINGTON 05/05 [facility] Encounter [id number] 05/08 [facility] [place] Encounter [id number]/27 [facility] [place] Encounter [id number] 06/01 [facility] [place] Encounter [id number] 06/03 [facility] [place] Encounter [id number] 06/06 [facility] [place] Encounter [id number]/15 [facility] [place] Encounter [id number] [facility] Encounter [id number] 06/19 [facility] [place] Encounter [id number] 06/25 [facility] Encounter [id number] 06/25 [facility] [place] Encounter [id number] 06/26 [facility] [place] Out[facility] Encounter [id number] 07/02 [facility] [place] Encounter [id number] 07/06 [facility] [place] Encounter [id number] 07/14 [facility] [place] Encounter [id number] 07/14 [facility] [place] Out[facility] Encounter [id number] 07/16 [facility] [place] Encounter [id number] 07/20 [facility] [place] Encounter [id number] 08/06 [facility] [place] Encounter [id number] 08/17 [facility] [place] Encounter [id number] 08/27 [facility] OFFICE O/P EST MOD 30 MIN [id number] Diagnos is: ICD-10- CM 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 Social History Type Response Date Comment Sourc e Tobacco smoking status NHIS VA-TOBACCO FORMER USER 10/16/2023 [facility] [place] [facility] History of tobacco use ID-TOBACCO QUIT 15 YRS OR MORE 10/16/2023 [facility] [place] [facility] History of tobacco use VA-TOBACCO FOR[facility] History of tobacco use NSG NO TOBACCO USE PAST 30 DAYS 03/27/2022 [place] History of tobacco use NSG NO TOBACCO USE PAST 30 DAYS 03/05/2022 [place] History of tobacco use NSG NO TOBACCO USE PAST 30 DAYS 03/02/2022 [place] History of tobacco use [facility]BACCO [facility] [place] [facility] History of tobacco use ID-TOBACCO FORMER USER 05/26/2020 [facility] [place] [facility] History of tobacco use ID-TOBACCO NEVER USED 05/23/2018 [facility] Plan of Care List of future care activities from Department Veterans Affairs facilities. Additional future care activities may be listed in the Assessment and Plan section. Date/Time Care Activity Care Activity Detail Facili ty 10/07/2024 AMBULATORY - MEDICINE AMBULATORY - MEDICI NE [facility] [place] [facility] 10/28/2024 AMBULATORY - MEDICINE AMBULATORY - [facility] Advance Directives List of completed, amended, or rescinded Advance Directives on record at [facility] facilities. An actual copy of the Directive is not included. Date Advance Directive Provider Source 02/19/2022 ADVANCE DIRECTIVE JOCE CASTORENA [facility] [place] [facility] 11/16/2020 ADVANCE DIRECTIVE BYRON BARRON [facility]
== END 2024-09-17 13:52 | disposition home or self-care (01) ==
LOC: HO.MRI 13:51
DX: S82.62XA Displaced fracture of lateral malleolus of left fibula, initial encounter for closed fracture (principal)
CPT/HCPCS: 73721

== ENCOUNTER 2024-09-18 13:45 | Outpatient (AMB) | payer MEDICARE, OTHER, SELFPAY ==
--- NOTE | 2024-09-18 13:54 | MHC.OFFVIS ---
Vital Signs 09/18/24 13:57 Height 5 ft 6 in Weight 193 lb BMI 31.1 Intake Visit Reasons: OV- LT Ankle ORIF 01/21/24 Intake Note: Reed is a 83 year old male who presents today for a follow up of left ankle ORIF, DOS 01/20/25. Patient reports that he was seen at [facility] when his incision was bleeding. States having discharge from his incision. Allergies niacin Allergy (Severe, Verified 09/18/24 14:10) Upset Stomach procaine [From Novocain] Allergy (Severe, Verified 09/18/24 14:10) I GET MEAN simvastatin Adverse Reaction (Severe, Verified 09/18/24 14:10) myopathy HPI HPI OV- LT Ankle ORIF 01/21/24: Details: Reed is a 83 year old male who presents today for a follow up of left ankle ORIF, DOS 01/20/25. Patient reports that he was seen at [facility] when his incision was bleeding. States having discharge from his incision. [facility] Medical History Hyperlipidemia HTN (hypertension) CAD (coronary artery disease) Murmur, cardiac Chest pain COPD (chronic obstructive pulmonary disease) Asbestosis Surgical History S/P TAVR (transcatheter aortic valve replacement) Stented coronary artery Hx of cardiac catheterization Family History Father CAD (coronary artery disease) Mother No problems noted. Social History Patient Tobacco Use Status: Former Tobacco user Tobacco use type: Cigarette and Cigar Years Smoked: 14 years old Review of Systems Const All systems reviewed & are unremarkable except as noted in HPI and below Physical Exam Vital Signs: BMI result Body Mass Index 31.1 Extrem Other: On inspection, there is no deformity of the L ankle No active discharge at this time, but there is discharge on the nonadherent dressing the patient had his ankle There there is noted to be some discoloration in the lateral aspect of the patient's ankle No ecchymosis Improved edema noted of the left ankle, improved from last visit Evidence of skin breakdown noted at previous evaluation appears to be resolving at this time Pain with axial loading of the left ankle Patient reports very mild tenderness to palpation about the left lateral malleolus Patient is able to plantar flex and dorsiflex the foot minimally, limited due to swelling and pain Distal sensation intact Capillary refill brisk Results Reviewed Results Reviewed: MRI of L ankle: Impression: Tibiotalar septic arthritis. There is a large joint effusion with synovitis. There is cartilaginous and cortical destruction at the tibiotalar joint. Interosseous fluid collection in the distal tibia measuring up to 1.6 cm around the syndesmotic fixation hardware and in continuity with the joint may indicate an interosseous abscess. This document has been electronically signed by: Maritza Caldera MD Assessment & Plan Assessment & Plan (1) Septic arthritis of ankle: Code(s): M00.9 - Pyogenic arthritis, unspecified Category: Medical (2) Ankle fracture, lateral malleolus, closed: Code(s): S82.63XA - Displaced fracture of lateral malleolus of unspecified fibula, initial encounter for closed fracture Category: Medical Qualifiers: Encounter type: initial encounter Fracture alignment: displaced Laterality: left Qualified Code(s): S82.62XA - Displaced fracture of lateral malleolus of left fibula, initial encounter for closed fracture Plan 1. Probable septic arthritis of left ankle status post left ankle ORIF I educated the patient about the condition. I discussed both operative and nonoperative treatment options. The patient would like to proceed with surgery. The risks and benefits of operative treatment were discussed with the patient and the patient wishes to proceed with surgery. These risks include, but are not limited to, risk of damage to blood vessels, nerves, tendons, infection, recurrence, incomplete relief of preoperative symptoms, persistent pain, possible need for further surgery, and the risks associated with regional blocks and/or anesthesia. Plan is to take the patient to the operating room on 09/22/2024 for the following procedures: 1. Left ankle removal of hardware and I & D Patient is educated that he will be admitted to the hospital after this surgery for IV antibiotics and placement of a PICC line Patient was amenable to this plan Coding Level of Care Code Est Pt Level 4 (39827) Diagnoses Septic arthritis of ankle M00.9 Closed displaced fracture of lateral malleolus of left fibula, initial encounter S82.62XA Encounter type: initial encounter Fracture alignment: displaced Laterality: left
[2024-09-18 13:57] VITALS: BMI 31.1
--- OUTSIDE RECORDS SUMMARY | 2024-09-18 15:26 | XMS_ITS ---
Author Organization [facility] Address [address] [place] [address] Care Team Providers Care Trench Digger Helper Name Role Phone Josue Simmons MD Primary Care Provider Unavailab Lyn Damico [phone] REASON FOR VISIT 04/23/24 Encounters Encounter Location Date Provider Diagnosis [facility] [address] [place] [address] 04/02/2024 Lyn Lund Plan Of Treatment No Information Progress Notes * Reed MALLORY HDOB:1940 (83 yo M)Acc No.[id number]:04/02/2024 Patient:?Reed Mallory :1940???Age:83 Y???Sex:Male Address:[address] [place] [address] * true * Date:? Generated for Printi philip/Ilda/eTransmitting on:?09/18/2024 03:23 PM EST
--- OUTSIDE RECORDS SUMMARY | 2024-09-18 15:26 | XMS_ITS | Patient Health Record ---
Author Organization [facility] [place] Address [address] [place] [address] Care Team Providers Care Insole Lip Turner Name Role Phone Josue Simmons MD Primary Care Provider Lyn Aquino Unavailable [phone] Allergies Allergen (clinical drug ingredient) Drug/Non Drug [...] primary osteoarthritis of the ankle and/or foot ([id number]) Primary osteoarthrit is, right ankle and foot (M19.071) Active confirmed Encounters Encounter Location Date Provider Diagnosis [facility] [place] [address] [place] [address] 03/09/2024 Lyn Lund [facility] [place] [address] [facility] [place] [address] 03/12/2024 yLn Lund [facility] [place] [address] [facility] [place] [address] 04/02/2024 Lyn Lund Plan Of Treatment Pending Test Test Name Order Date X ray : Foot, right 3V 01/20/2015 X ray : Ankle, right 3V 03/04/2017 Insurance Providers Payer Name Payer Address Payer Phone Subscriber Number Group Number Insured Name Patient Relationship to Insured Coverage Start Date Coverage End Date Medicare [employer] [address] [place] [address] [id number] Reed Mallory Self - patient is the insured [employer] [address] [place] [address] Reed Mallory Self - patient is the [...]
--- OUTSIDE RECORDS SUMMARY | 2024-09-18 15:26 | XMS_ITS ---
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 Generated for Printi philip/Ilda/eTransmitting on:?09/18/2024 03:23 PM EST
--- OUTSIDE RECORDS SUMMARY | 2024-09-18 15:27 | XMS_ITS ---
Author Organization [facility] Address [address] [place] [address] Care Team Providers Care Hard Metals Engraver Hand Name Role Phone Josue Simmons MD Primary Care Provider Unavailab melinda Lyn Lund Unavailable [phone] Allergies Allergen (clinical drug ingredient) Drug/Non Drug [...] 04/23/2024 Encounters Encounter Location Date Provider Diagnosis [facility] [address] [place] [address] 04/23/2024 Lyn Lund Plan Of Treatment No Information Progress Notes * Reed MALLORY HDOB:1940 (83 yo M)Acc No.[id number]:04/23/2024 Progress Notes Patient:Reed VANCE Provider:?Lyn Lund DPM :1940???Age:83 Y???Sex:Male Chu e:04/23/2024 Address:[address] [place], [place] [id number] Pcp:Josue Simmons MD Subjective: * Chief Complaints: [...] Lund DPM Date:?2023 Generated for Yokasta palacios/Ilda/Sunil on:?09/18/2024 03:24 PM EST
--- OUTSIDE RECORDS SUMMARY | 2024-09-18 15:27 | XMS_ITS | Continuity of Care Document ---
Author Name [facility] Organization [facility] Care Team Providers Care Senior Portfolio Analyst Name Role Phone [facility] Unavailable Unavailable Problems Combined list of problems from Department of Defense and Veterans Affairs facilities. It does not include entries that were removed or entered in error. Problem Status Onset Date Problem Type Date of Resolution Comments Source Chronic dermatitis Active 023 Condition Oct 05, 2022 Entered By: BYRON BARRON Comment: referred to dermatology [facility] Chest Pain (SCT [id number]) Active Condition Jan 02, 2022 Entered By: BYRON BARRON Comment: ordered stress test [facility] COPD - Chronic Obstructive Pulmonary Disease (SCT 96839280) Active Condition Dec 28, 2021 Entered By: BYRON BARRON Comment: on inhalers [facility] Cataract Active Condition Oct 12, 2020 Entered By: BYRON BARRON Comment: referred for surgery [facility] HTN - Hypertension (SCT 36208200) Active Condition Oct 21, 2020 Entered By: BYRON BARRON Comment: treated witn medication [facility] Hypercholesterolemia (SCT 13088213) Active Condition Oct 21, 2020 Entered By: [...] of uncertain behavior of skin Active Diagnosis [facility] Diagnosis: ICD-10-CM Z13.89 Encounter for screening for other disorder Active Diagnosis [facility] Diagnosis: ICD-10-CM R21 Rash and other nonspecific skin eruption Active Diagnosis [facility] Diagnosis: ICD-10-CM Z23 Encounter for immunization [...] TWICE DAILY FOR INFECTIO N ORAL 11/15/2023 [id number] MAUREEN BARRON D 2023 20 [facility] ASPIRIN 81MG TAB,CHEWABL E CHEW ONE TABLET BY MOUTH ONCE DAILY ORAL ACTIVE JANINE HAMMOND R 2021 [facility] ATORVASTATI N CA 80MG TAB TAKE ONE TABLET BY MOUTH AT BEDTIME ORAL ACTIVE 06/26/2025 [id number] MAUREEN BARRON D 2023 90 [facility] ATORVASTATI N CA 80MG TAB TAKE ONE TABLET BY MOUTH AT BEDTIME ORAL DISCONT INUED 06/19/2024 [id number] MOHAMUD ARGUETA 2022 90 [facility] CARBOXYMETH YLCELLULOSE NA 0.5% SOLN,OPH INSTILL 1 DROP INTO EACH EYE FOUR TIMES A DAY FOR DRY EYE OPHTHA LMIC ACTIVE 09/02/2025 [id number] 5 OSBALDO CALDERON EY J 2024 45 [facility] CEPHALEXIN 500MG CAP TAKE ONE CAPSULE BY MOUTH EVERY 8 HOURS FOR INFECTIO N ORAL 04/04/2024 [id number] MAMTA STERN 2023 21 [facility] EYELID CLEANSER,EY E SCRUB PAD USE 1 PAD TOPICALL Y EVERY MORNING BLEPHARI TIS TOPICA L ACTIVE 09/02/2025 [id number] 5 OSBALDO CALDERON EY J 2024 90 [facility] EZETIMIBE 10MG TAB TAKE ONE TABLET BY MOUTH ONCE DAILY TO LOWER CHOLESTE ROL ORAL ACTIVE 06/26/2025 [id number] MAUREEN BARRON D 2023 90 [facility] EZETIMIBE 10MG TAB TAKE ONE TABLET BY MOUTH ONCE DAILY TO LOWER CHOLESTE ROL ORAL DISCONT INUED 06/19/2024 [id number] 4 KENDALL,MOHAMUD AV 2022 90 [facility] HYDROCHLORO THIAZIDE 25MG TAB TAKE ONE TABLET BY MOUTH ONCE DAILY ORAL 06/19/2024 [id number] KENDALL,MOHAMUD AV 2023 90 [facility] METOPROLOL SUCCINATE 50MG TAB,SA TAKE ONE TABLET BY MOUTH ONCE DAILY FOR BLOOD PRESSURE /HEART ORAL ACTIVE 06/26/2025 [id number] MAUREEN BARRON PAIGE D 2023 90 [facility] METOPROLOL SUCCINATE 50MG TAB,SA TAKE ONE TABLET BY MOUTH ONCE DAILY FOR BLOOD PRESSURE /HEART ORAL DISCONT INUED 06/19/2024 [id number] KENDALL,MOHAMUD AV 2022 90 [facility] TRIAMCINOLO NE ACETONIDE 0.1% CREAM,TOP APPLY A MODERATE AMOUNT TOPICALL Y TWICE DAILY NEEDED FOR ITCHING TOPICA L ACTIVE 10/24/2024 [id number] 4 MAUREEN BARRON PAIGE D 2023 [facility] Allergies, Adverse Reactions, Alerts Combined list of allergies from Department of Defense and Veterans Affairs facilities. It does not include entries that were removed or entered in error. Substance Category Reaction Severity Reaction type Status Date Reported Comments Source LIDOCAINE Propensity to adverse reactions to drug (finding) Itching MODERATE active 2 [facility] NOVOCAIN Propensity to adverse reactions to drug (finding) Feeling agitated active [facility] PROCAINE Propensity to adverse reactions to drug (finding) active 2 [facility] Immunizations Combined list of available immunizations from the Department of Defense and Veterans Affairs facilities. 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 Comments Source COVID-19 (MODERNA), MRNA, LNP-S, PF, 50 MCG/0.5 ML (AGES 12+ YEARS) 7 2023 ALMA MAHER LEFT DELTO ID [id number] 312 complet ed [facility] INFLUENZA, HIGH-DOSE, TRIVALENT, PF 2023 ALMA MAHER M LEFT DELTO ID [id number] 135 complet ed [facility] RSV, BIVALENT, PROTEIN SUBUNIT RSVPREF, DILUENT RECONSTITUTED , 0.5 ML, PF 1 2023 GRETCHEN ANDRADE E LEFT DELTO ID [id number] 305 complet ed [facility] COVID-19 (MODERNA), MRNA, LNP-S, PF, 50 MCG/0.5 ML (AGES 12+ YEARS) 1 2023 GRETCHEN ANDRADE E LEFT DELTO ID [id number] 312 complet ed [facility] INFLUENZA, HIGH-DOSE, QUADRIVALENT 2022 JERRI SHAIKH M LEFT DELTO ID [id number] 197 complet ed [facility] COVID-19 (MODERNA), MRNA, LNP-S, BIVALENT BOOSTER, PF, 50 MCG/0.5 ML OR 25MCG/0.25 ML DOSE 2021 JERRI SHAIKH ER M LEFT DELTO ID [id number] 229 complet ed [facility] INFLUENZA VACCINE, QUADRIVALENT, ADJUVANTED 2021 205 complet ed [facility] COVID-19 (MODERNA), MRNA, LNP-S, PF, 100 MCG/0.5ML DOSE OR 50 MCG/0.25ML DOSE 3 2021 207 complet ed MOD; [id number] ; 2 [facility] PNEUMOCOCCAL CONJUGATE PCV20, POLYSACCHARID E [id number] CONJUGATE, ADJUVANT, PF 2021 216 complet ed [facility] COVID-19 (MODERNA), MRNA, LNP-S, PF, 100 MCG OR 50 MCG DOSE 3 2020 207 complet ed MOD; [id number]; 2 [facility] INFLUENZA, UNSPECIFIED FORMULATION 2020 88 complet ed [facility] TDAP 2020 115 complet ed [facility] COVID-19 (MODERNA), MRNA, LNP-S, PF, 100 MCG/0.5 ML DOSE 2 2020 207 complet ed MOD; [id number]; 1 [facility] COVID-19 (MODERNA), MRNA, LNP-S, PF, 100 MCG/0.5 ML DOSE 1 2020 207 complet ed MOD; [id number]; 1 [facility] [...] DOSE SEASONAL 2017 135 complet ed Partner: [facility]. Administe red by: ARLET BOLTON (VIQ=[phone] [id number]). Partner 0 Lot#: [id number] Mfr: Sanofi Pasteur; Dosage: 0.5 [facility] PNEUMOCOCCAL POLYSACCHARID E PPV23 2016 33 complet ed [facility]: [facility]. Administe red by: ARLET BOLTON (JRA=[phone] [id number]). Partner 0 Lot#: [id number] Mfr: Calibrus; Dosage: 0.5 [facility] INFLUENZA, HIGH DOSE SEASONAL 2016 135 complet ed [facility] Administe red by: ARLET BOLTON (RZD=[phone] [id number]). Partner 0 Lot#: [id number] Mfr: Sanofi Pasteur; Dosage: 0.5 [facility] Results Combined list of recent chemistry, [...] 2024 05:53 PM Reporting Lab: [facility] [place] [address] [address] Performing Lab: [facility] [place] [address] [address] [facility] BASIC METABOLI C PANEL (fasting ) GLUCOSE [MASS/VOLU ME] IN SERUM OR PLASMA 93 mg/dL 65 - 100 04/07 Specimen Type: SERUM No comment entered. Ordering Provider: JAMILA BARRON Report Released Date/Time: Apr 04, 2024 05:53 PM Reporting Lab: [facility] [place] [address] [address] Performing Lab: [facility] [place] [address] [address] [facility] BASIC METABOLI C PANEL (fasting ) SODIUM [MOLES/VOL UME] IN SERUM OR PLASMA 139 mmol/L 135 - 145 04/07 Specimen Type: SERUM No comment entered. Ordering Provider: JAMILA BARRON Report Released Date/Time: Apr 04, 2024 05:53 PM Reporting Lab: [facility] [place] [facility] [address] [facility] [address] Performing Lab: [facility] [place] [address] [address] [facility] [place] [facility] BASIC METABOLI C PANEL (fasting ) POTASSIUM [MOLES/VOL UME] IN SERUM OR PLASMA 3.9 mmol/L 3.5 - 5.0 04/07 Specimen Type: SERUM No comment entered. Ordering Provider: JAMILA BARRON Report Released Date/Time: Apr 04, 2024 05:53 PM Reporting Lab: [facility] [address] [address] Performing Lab: [facility] [address] [address] [facility] BASIC METABOLI C PANEL (fasting ) CHLORIDE [MOLES/VOL UME] IN SERUM OR PLASMA 102 mmol/L 100 - 110 04/07 Specimen Type: SERUM No comment entered. Ordering Provider: JAMILA BARRON Report Released Date/Time: Apr 04, 2024 05:53 PM Reporting Lab: [facility] [address] [address] Performing Lab: [facility] [address] [facility] BASIC METABOLI C PANEL (fasting ) CARBON DIOXIDE, TOTAL [MOLES/VOL UME] IN SERUM OR PLASMA 26 meq/L 20 - 30 04/07 Specimen Type: SERUM No comment entered. Ordering Provider: JAMILA BARRON Report Released Date/Time: Apr 04, 2024 05:53 PM Reporting Lab: [facility] [address] [address] Performing Lab: [facility] [address] [facility] BASIC METABOLI C PANEL (fasting ) CREATININE [MASS/VOLU ME] IN SERUM OR PLASMA 0.92 mg/dL 0.50 - 1.40 04/07 Specimen Type: SERUM No comment entered. Ordering Provider: JAMILA BARRON Report Released Date/Time: Apr 04, 2024 05:53 PM Reporting Lab: [facility] [address] [address] Performing Lab: [facility] [address] [facility] [place] [facility] BASIC METABOLI C PANEL (fasting ) GLOMERULAR FILTRATION RATE/1.73 SQ M.PREDICTE D [VOLUME RATE/AREA] IN SERUM, PLASMA OR BLOOD BY CREATININE -BASED FORMULA (CKD-EPI 2020) 82 mL/min 60 04/07 Specimen Type: SERUM No comment entered. Ordering Provider: JAMILA BARRON Report Released Date/Time: Apr 04, 2024 05:53 PM Reporting Lab: [facility] [place] [facility] [address] [facility] [address] Performing Lab: [facility] [place] [facility] [address] [facility] [address] [facility] [place] [facility] CBC AND DIFF (AUTO) LEUKOCYTES [#/VOLUME] IN BLOOD BY AUTOMATED COUNT 7.77 10*3/uL 4.50 - 11.00 04/07 Specimen Type: BLOOD No comment entered. Ordering Provider: JAMILA BARRON Report Released Date/Time: Apr 04, 2024 05:53 PM Reporting Lab: [facility] [place] [facility] [address] [facility] [address] Performing Lab: [facility] [address] [facility] [address] [facility] CBC AND DIFF (AUTO) ERYTHROCYT ES [#/VOLUME] IN BLOOD BY AUTOMATED COUNT 4.29 10*6/uL 4.23 - 5.66 04/07 Specimen Type: BLOOD No comment entered. Ordering Provider: JAMILA BRARON Report Released Date/Time: Apr 04, 2024 05:53 PM Reporting Lab: [facility] [place] [facility] [address] [facility] [address] Performing Lab: [facility] [place] [facility] [address] [facility] [address] [facility] [place] [facility] CBC AND DIFF (AUTO) HEMOGLOBIN [MASS/VOLU ME] IN BLOOD 14.2 g/dL 12.8 - 17 04/07 Specimen Type: BLOOD No comment entered. Ordering Provider: JAMILA BARRON Report Released Date/Time: Apr 04, 2024 05:53 PM Reporting Lab: [facility] [place] [facility] [address] [facility] [address] Performing Lab: [facility] [place] [facility] [address] [facility] [address] [facility] [facility] CBC AND DIFF (AUTO) HEMATOCRIT [VOLUME FRACTION] OF BLOOD BY AUTOMATED COUNT 41.1 39.2 - 50.4 04/07 Specimen Type: BLOOD No comment entered. Ordering Provider: JAMILA BARRON Report Released Date/Time: Apr 04, 2024 05:53 PM Reporting Lab: [facility] [place] [facility] [address] [facility] [address] Performing Lab: [facility] [place] [facility] [address] [facility] [address] [facility] [place] [facility] CBC AND DIFF (AUTO) MCV [ENTITIC VOLUME] BY AUTOMATED COUNT 95.8 fL 82 - 99 04/07 Specimen Type: BLOOD No comment entered. Ordering Provider: JAMILA BARRON Report Released Date/Time: Apr 04, 2024 05:53 PM Reporting Lab: [facility] [place] [facility] [address] [facility] [address] Performing Lab: [facility] [place] [facility] [address] [facility] [address] [facility] [place] [facility] CBC AND DIFF (AUTO) MCHC [MASS/VOLU ME] BY AUTOMATED COUNT 34.5 g/dL 30.8 - 35.1 04/07 Specimen Type: BLOOD No comment entered. Ordering Provider: JAMILA BARRON Report Released Date/Time: Apr 04, 2024 05:53 PM Reporting Lab: [facility] [place] [facility] [address] [facility] [address] Performing Lab: [facility] [place] [facility] [address] [facility] [address] [facility] [facility] CBC AND DIFF (AUTO) PLATELETS [#/VOLUME] IN BLOOD BY AUTOMATED COUNT 184 10*3/uL 140 - 360 04/07 Specimen Type: BLOOD No comment entered. Ordering Provider: JAMILA BARRON Report Released Date/Time: Apr 04, 2024 05:53 PM Reporting Lab: [facility] [place] [facility] [address] [facility] [address] Performing Lab: [facility] [place] [facility] [address] [facility] [address] [facility] [facility] CBC AND DIFF (AUTO) ERYTHROCYT E DISTRIBUTI ON WIDTH [RATIO] BY AUTOMATED COUNT 13.1 12.0 - 16.0 04/07 Specimen Type: BLOOD No comment entered. Ordering Provider: JAMILA BARRON Report Released Date/Time: Apr 04, 2024 05:53 PM Reporting Lab: [facility] [place] [facility] [address] [facility] [address] Performing Lab: [facility] [place] [facility] [address] [facility] [address] [facility] [place] [facility] CBC AND DIFF (AUTO) MONOCYTES [#/VOLUME] IN BLOOD BY AUTOMATED COUNT 0.98 10*3/uL 0.30 - 1.10 04/07 Specimen Type: BLOOD No comment entered. Ordering Provider: JAMILA BARRON Report Released Date/Time: Apr 04, 2024 05:53 PM Reporting Lab: [facility] [place] [facility] [address] [facility] [address] Performing Lab: [facility] [place] [facility] [address] [facility] [address] [facility] CBC AND DIFF (AUTO) MCH [ENTITIC MASS] BY AUTOMATED COUNT 33.1 pg 26.2 - 32.6 04/07 H Specimen Type: BLOOD No comment entered. Ordering Provider: JAMILA BARRON Report Released Date/Time: Apr 04, 2024 05:53 PM Reporting Lab: [facility] [place] [facility] [address] [facility] [address] Performing Lab: [facility] [place] [facility] [address] [facility] [address] [facility] CBC AND DIFF (AUTO) NEUTROPHIL S/100 LEUKOCYTES IN BLOOD BY AUTOMATED COUNT 52.3 43.7 - 75.8 04/07 Specimen Type: BLOOD No comment entered. Ordering Provider: JAMILA BARRON Report Released Date/Time: Apr 04, 2024 05:53 PM Reporting Lab: [facility] [place] [facility] [address] [facility] [address] Performing Lab: [facility] [address] [facility] [address] [facility] CBC AND DIFF (AUTO) LYMPHOCYTE S/100 LEUKOCYTES IN BLOOD BY AUTOMATED COUNT 31.7 14.0 - 42.3 04/07 Specimen Type: BLOOD No comment entered. Ordering Provider: JAMILA BARRON Report Released Date/Time: Apr 04, 2024 05:53 PM Reporting Lab: [facility] [place] [address] [address] Performing Lab: [facility] [place] [address] [address] [facility] CBC AND DIFF (AUTO) MONOCYTES/ 100 LEUKOCYTES IN BLOOD BY AUTOMATED COUNT 12.6 5.1 - 13.7 04/07 Specimen Type: BLOOD No comment entered. Ordering Provider: JAMILA BARRON Report Released Date/Time: Apr 04, 2024 05:53 PM Reporting Lab: [facility] [place] [address] [address] Performing Lab: [facility] [place] [facility] [address] [place] [address] [facility] CBC AND DIFF (AUTO) EOSINOPHIL S/100 LEUKOCYTES IN BLOOD BY AUTOMATED COUNT 2.3 0.4 - 6.8 04/07 Specimen Type: BLOOD No comment entered. Ordering Provider: JAMILA BARRON Report Released Date/Time: Apr 04, 2024 05:53 PM Reporting Lab: [facility] [place] [address] [address] Performing Lab: [facility] [place] [address] [address] [facility] CBC AND DIFF (AUTO) BASOPHILS/ 100 LEUKOCYTES IN BLOOD BY AUTOMATED COUNT 0.6 0.1 - 2.0 04/07 Specimen Type: BLOOD No comment entered. Ordering Provider: JAMILA BARRON Report Released Date/Time: Apr 04, 2024 05:53 PM Reporting Lab: [facility] [place] [address] [place] [address] Performing Lab: [facility] [place] [facility] [address] [facility] [address] [facility] [place] CBC AND DIFF (AUTO) NEUTROPHIL S [#/VOLUME] IN BLOOD BY AUTOMATED COUNT 4.06 10*3/uL 2.20 - 7.60 04/07 Specimen Type: BLOOD No comment entered. Ordering Provider: JAMILA BARRON Report Released Date/Time: Apr 04, 2024 05:53 PM Reporting Lab: [facility] [place] [facility] [address] [facility] [address] Performing Lab: [facility] [place] [facility] [address] [facility] [address] [facility] [place] [facility] CBC AND DIFF (AUTO) LYMPHOCYTE S [#/VOLUME] IN BLOOD BY AUTOMATED COUNT 2.46 10*3/uL 1.00 - 3.20 04/07 Specimen Type: BLOOD No comment entered. Ordering Provider: JAMILA BARRON Report Released Date/Time: Apr 04, 2024 05:53 PM Reporting Lab: [facility] [place] [facility] [address] [facility] [address] Performing Lab: [facility] [place] [facility] [address] [facility] [address] [facility] CBC AND DIFF (AUTO) EOSINOPHIL S [#/VOLUME] IN BLOOD BY AUTOMATED COUNT 0.18 10*3/uL 0.03 - 0.44 04/07 Specimen Type: BLOOD No comment entered. Ordering Provider: JAMILA BARRON Report Released Date/Time: Apr 04, 2024 05:53 PM Reporting Lab: [facility] [place] [facility] [address] [facility] [address] Performing Lab: [facility] [place] [facility] [address] [facility] [address] [facility] CBC AND DIFF (AUTO) BASOPHILS [#/VOLUME] IN BLOOD BY AUTOMATED COUNT 0.05 10*3/uL 0.01 - 0.13 04/07 Specimen Type: BLOOD No comment entered. Ordering Provider: JAMILA BARRON Report Released Date/Time: Apr 04, 2024 05:53 PM Reporting Lab: [facility] [place] [facility] [address] [facility] [address] Performing Lab: [facility] [place] [address] [address] [facility] [place] [facility] CBC AND DIFF (AUTO) IMMATURE GRANULOCYT ES/100 LEUKOCYTES IN BLOOD BY AUTOMATED COUNT 0.5 0.0 - 0.7 04/07 Specimen Type: BLOOD No comment entered. Ordering Provider: JAMILA BARRON Report Released Date/Time: Apr 04, 2024 05:53 PM Reporting Lab: [facility] [place] [address] [address] Performing Lab: [facility] [place] [address] [address] [facility] [place] [facility] CBC AND DIFF (AUTO) IMMATURE GRANULOCYT ES [#/VOLUME] IN BLOOD 0.04 10*3/uL 0.00 - 0.06 04/07 Specimen Type: BLOOD No comment entered. Ordering Provider: JAMILA BARRON Report Released Date/Time: Apr 04, 2024 05:53 PM Reporting Lab: [facility] [place] [address] [address] Performing Lab: [facility] [place] [address] [address] [facility] [place] [facility] CBC AND DIFF (AUTO) NRBC % 0.0 0.0 - 0.0 04/07 Specimen Type: BLOOD No comment entered. Ordering Provider: JAMILA BARRON Report Released Date/Time: Apr 04, 2024 05:53 PM Reporting Lab: [facility] [place] [facility] [address] [facility] [address] Performing Lab: [facility] [place] [facility] [address] [facility] [address] [facility] [place] [facility] CBC AND DIFF (AUTO) NRBC, ABS 0.00 10*3/uL 0.00 - 0.00 04/07 Specimen Type: BLOOD No comment entered. Ordering Provider: JAMILA BARRON Report Released Date/Time: Apr 04, 2024 05:53 PM Reporting Lab: [facility] [place] [address] [address] Performing Lab: [facility] [place] [address] [address] [facility] [facility] LIPID PANEL FASTING CHOLESTERO L [MASS/VOLU ME] IN SERUM OR PLASMA 139 mg/dL 04/07 Specimen Type: SERUM No comment entered. Ordering Provider: JAMILA BARRON Report Released Date/Time: Apr 04, 2024 05:53 PM Reporting Lab: [facility] [place] [address] [address] Performing Lab: [facility] [place] [address] [address] [facility] [place] [facility] LIPID PANEL FASTING TRIGLYCERI DE [MASS/VOLU ME] IN SERUM OR PLASMA 136 mg/dL 0 - 150 04/07 Specimen Type: SERUM No comment entered. Ordering Provider: JAMILA BARRON Report Released Date/Time: Apr 04, 2024 05:53 PM Reporting Lab: [facility] [place] [facility] [address] [facility] [address] Performing Lab: [facility] [place] [address] [address] [facility] [place] [facility] LIPID PANEL FASTING CHOLESTERO L IN LDL [MASS/VOLU ME] IN SERUM OR PLASMA BY CALCULATIO N 72 mg/dL 0 - 129 04/07 Specimen Type: SERUM No comment entered. Ordering Provider: JAMILA BARRON Report Released Date/Time: Apr 04, 2024 05:53 PM Reporting Lab: [facility] [place] [facility] [address] [facility] [address] Performing Lab: [facility] [place] [facility] [address] [facility] [address] [facility] [place] [facility] LIPID PANEL FASTING CHOLESTERO L.TOTAL/CH OLESTEROL IN HDL [MASS RATIO] IN SERUM OR PLASMA 3.5 04/07 Specimen Type: SERUM No comment entered. Ordering Provider: JAMILA BARRON Report Released Date/Time: Apr 04, 2024 05:53 PM Reporting Lab: [facility] [place] [facility] [address] [facility] [address] Performing Lab: [facility] [place] [address] [address] [facility] [place] [facility] LIPID PANEL FASTING CHOLESTERO L IN HDL [MASS/VOLU ME] IN SERUM OR PLASMA 40 mg/dL 40 - 60 04/07 Specimen Type: SERUM No comment entered. Ordering Provider: JAMILA BARRON Report Released Date/Time: Apr 04, 2024 05:53 PM Reporting Lab: [facility] [place] [address] [address] Performing Lab: [facility] [place] [address] [address] [facility] [place] [facility] LIVER FUNCTION PROTEIN [MASS/VOLU ME] IN SERUM OR PLASMA 6.8 g/dL 6.0 - 8.3 04/07 Specimen Type: SERUM No comment entered. Ordering Provider: JAMILA BARRON Report Released Date/Time: Apr 04, 2024 05:53 PM Reporting Lab: [facility] [place] [address] [address] Performing Lab: [facility] [place] [address] [address] [facility] [place] [facility] LIVER FUNCTION ALBUMIN [MASS/VOLU ME] IN SERUM OR PLASMA 4.0 g/dL 3.5 - 5.0 04/07 Specimen Type: SERUM No comment entered. Ordering Provider: JAMILA BARRON Report Released Date/Time: Apr 04, 2024 05:53 PM Reporting Lab: [facility] [place] [facility] [address] [facility] [address] Performing Lab: [facility] [place] [facility] [address] [facility] [address] [facility] [place] [facility] LIVER FUNCTION ALKALINE PHOSPHATAS E [ENZYMATIC ACTIVITY/V OLUME] IN SERUM OR PLASMA 118 U/L 40 - 150 04/07 Specimen Type: SERUM No comment entered. Ordering Provider: JAMILA BARRON Report Released Date/Time: Apr 04, 2024 05:53 PM Reporting Lab: [facility] [place] [address] [address] Performing Lab: [facility] [place] [address] [address] [facility] [place] [facility] LIVER FUNCTION ASPARTATE AMINOTRANS FERASE [ENZYMATIC ACTIVITY/V OLUME] IN SERUM OR PLASMA 30 U/L 5 - 34 04/07 Specimen Type: SERUM No comment entered. Ordering Provider: JAMILA BARRON Report Released Date/Time: Apr 04, 2024 05:53 PM Reporting Lab: [facility] [place] [address] [address] Performing Lab: [facility] [place] [facility] [address] [facility] [address] [facility] [place] [facility] LIVER FUNCTION ALANINE AMINOTRANS FERASE [ENZYMATIC ACTIVITY/V OLUME] IN SERUM OR PLASMA 23 U/L 04/07 Specimen Type: SERUM No comment entered. Ordering Provider: JAMILA BARRON Report Released Date/Time: Apr 04, 2024 05:53 PM Reporting Lab: [facility] [place] [address] [address] Performing Lab: [facility] [place] [address] [address] [facility] [place] [facility] LIVER FUNCTION BILIRUBIN. TOTAL [MASS/VOLU ME] IN SERUM OR PLASMA 1.0 mg/dL 0.2 - 1.2 04/07 Specimen Type: SERUM No comment entered. Ordering Provider: JAMILA BARRON Report Released Date/Time: Apr 04, 2024 05:53 PM Reporting Lab: [facility] [place] [address] [address] Performing Lab: [facility] [place] [address] [address] [facility] [place] [facility] TSH THYROTROPI N [UNITS/VOL UME] IN SERUM OR PLASMA 2.34 u[IU]/mL 0.35 - 5.00 04/07 Specimen Type: SERUM No comment entered. Ordering Provider: JAMILA BARRON Report Released Date/Time: Apr 04, 2024 05:53 PM Reporting Lab: [facility] [place] [place] [address] [address] Performing Lab: [facility] [place] [address] [address] [facility] [place] [facility] URINALYS IS CLEAN CATCH COLOR OF URINE Yellow 04/07 Specimen Type: URINE Comment: If Glucose = >500 and Ketones are positive, please alert the Physician. Ordering Provider: JAMILA BARRON Report Released Date/Time: Apr 04, 2024 05:53 PM Reporting Lab: [facility] [place] [place] [address] [address] Performing Lab: [facility] [place] [address] [address] [facility] [place] [facility] URINALYS IS CLEAN CATCH APPEARANCE OF URINE Clear 04/07 Specimen Type: URINE Comment: If Glucose = >500 and Ketones are positive, please alert the Physician. Ordering Provider: JAMILA BARRON Report Released Date/Time: Apr 04, 2024 05:53 PM Reporting Lab: [facility] [place] [address] [address] Performing Lab: [facility] [place] [facility] [address] [facility] [address] [facility] [place] [facility] URINALYS IS CLEAN CATCH GLUCOSE [MASS/VOLU ME] IN URINE Normalmg /dL 04/07 Specimen Type: URINE Comment: If Glucose = >500 and Ketones are positive, please alert the Physician. Ordering Provider: JAMILA BARRON Report Released Date/Time: Apr 04, 2024 05:53 PM Reporting Lab: [facility] [place] [facility] [address] [facility] [address] Performing Lab: [facility] [place] [facility] [address] [facility] [address] [facility] [place] [facility] URINALYS IS CLEAN CATCH KETONES [MASS/VOLU ME] IN URINE BY TEST STRIP NEGATIVE mg/dL 04/07 Specimen Type: URINE Comment: If Glucose = >500 and Ketones are positive, please alert the Physician. Ordering Provider: JAMILA BARRON Report Released Date/Time: Apr 04, 2024 05:53 PM Reporting Lab: [facility] [place] [place] [facility] [address] [facility] [address] Performing Lab: [facility] [facility] [address] [facility] [address] [facility] [place] [facility] URINALYS IS CLEAN CATCH ERYTHROCYT ES [PRESENCE] IN URINE SEDIMENT BY LIGHT MICROSCOPY NEGATIVE mg/dL 04/07 Specimen Type: URINE Comment: If Glucose = >500 and Ketones are positive, please alert the Physician.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 Diagnos is: ICD-10- CM I10 Essenti al (primar y) hyperte nsion RICO BARRON RD 04/13 [facility] En[facility] [id number] 1.04/14 [facility] Encounter [id number]/17 [facility] Encounter [id number] 04/23 [facility]counter [id number] 1.04/24 [facility] OFFICE O/P EST MOD 30 MIN [id number] Diagnos is: ICD-10- CM 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 RACNHO RODRIGUEZ 04/28 [facility] CONFORMITY EVALUATION [id number] Diagnos is: ICD-10- CM Z46.1 Encount er for fitting and adjustm ent of hearing aid Yossi HARRINGTON 05/05 [facility] Out[facility] Encounter [id number] 05/08 [facility] Encounter [id number]/27 [facility] Encounter [id number] 06/01 [facility] Encounter [id number] 06/03 [facility] Encounter [id number] 06/06 [facility] Encounter [id number]/15 [facility] Encounter [id number]/16 [facility] Encounter [id number] 06/19 [facility] Encounter [id number] 06/25 [facility] Encounter [id number] 06/25 [facility] Encounter [id number] 06/26 [facility] Out[facility] Encounter [id number] 07/02 [facility] En[facility] [id number] 07/06 [facility] Encounter [id number] 07/14 [facility] Encounter [id number] 07/14 [facility] Out[facility] Encounter [id number] 07/16 [facility] Encounter [id number] 07/20 [facility] Encounter [id number] 08/06 [facility] Encounter [id number] 08/17 [facility] Encounter [id number] 08/27 [facility] OFFICE O/P EST MOD 30 MIN [id number] Diagnos is: ICD-10- CM 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 Social History Type Response Date Comment Sourc e Tobacco smoking status NHIS VA-TOBACCO FORMER USER 10/16/2023 [facility] [place] [facility] History of tobacco use MD-TOBACCO QUIT 15 YRS OR MORE 10/16/2023 [facility] [place] [facility] History of tobacco use [facility]-TOBACCO [facility] History of tobacco use NSG NO TOBACCO USE PAST 30 DAYS 03/27/2022 [facility] History of tobacco use NSG NO TOBACCO USE PAST 30 DAYS 03/05/2022 [facility] History of tobacco use NSG NO TOBACCO USE PAST 30 DAYS 03/02/2022 [facility] History of tobacco use [facility]CO [facility] History of tobacco use MD-TOBACCO FORMER USER 05/26/2020 [facility] [place] [facility] History of tobacco use MD-TOBACCO NEVER USED 05/23/2018 [facility] Plan of Care List of future care activities from Department Veterans Affairs facilities. Additional future care activities may be listed in the Assessment and Plan section. Date/Time Care Activity Care Activity Detail Facili ty 10/07/2024 AMBULATORY - MEDICINE AMBULATORY - MEDICI NE [facility] [place] [facility] 10/28/2024 [facility]UL[facility] Advance Directives List of completed, amended, or rescinded Advance Directives on record at Department of Veterans [facility] facilities. An actual copy of the Directive is not included. Date Advance Directive Provider Source 02/19/2022 ADVANCE DIRECTIVE JOCE CASTORENA [facility] [place] [facility] 11/16/2020 ADVANCE DIRECTIVE BYRON [facility]
== END 2024-09-18 14:35 | disposition home or self-care (01) ==
DX: M00.9 Pyogenic arthritis, unspecified (principal); S82.62XA Displaced fracture of lateral malleolus of left fibula, initial encounter for closed fracture
CPT/HCPCS: 99214

== ENCOUNTER → 2024-09-18 13:45 | Outpatient (BNVA) | payer MEDICARE, OTHER, SELFPAY | DX: M00.9 Pyogenic arthritis, unspecified (principal); S82.62XD Displaced fracture of lateral malleolus of left fibula, subsequent encounter for closed fracture with routine healing | CPT/HCPCS: 99212 ==

== ENCOUNTER 2024-09-22 13:00 | Inpatient (IN) | payer OTHER, SELFPAY ==
[2024-09-22] VITALS (15 sets, daily range): BP systolic 110–177; BP diastolic 62–90; PULSE 67–93; RESP 12–18; TEMP 36.3–37; O2SAT 91–98; BMI 28.2
[2024-09-22] MEDS: Lactated Ringers 1,000 ML 100 ML IVCONT ×2 (13:29→17:41)
--- NOTE | 2024-09-22 14:20 | PHA.MEDREC ---
Pharmacy Consult ? Medication Reconciliation Pharmacy has completed the medication reconciliation. Spoke with patient at bedside, he knows his medications if you name them and stated he took them yesterday.
--- NOTE | 2024-09-22 14:25 | MHC.SHP ---
Pre-Procedural Eval Section A - 24 Hr Update-Section A only Date of Service: 09/22/24 The patient is an INPATIENT: No Changes since office visit: No Cold of Flu in the past 2 weeks, No New Medical Problems, No Changes in Medication and No Patient answered all questions The patient has been examined within 24 hours of the surgical procedure. The History & Physical has been completed within 30 days and I have reviewed it.: Yes Section B - Complete if H&P > 30 days Chief Complaint: Septic arthritis L ankle Allergies: Allergies Allergy/AdvReac Type Severity Reaction Status Date / Time niacin Allergy Severe Upset Verified 09/18/24 14:10 Stomach procaine [From Novocain] Allergy Severe I GET Verified 09/18/24 14:10 MEAN simvastatin AdvReac Severe myopathy Verified 09/18/24 14:10 Plan I have reviewed the history and physical and performed a pertinent physical examination on my patient. No changes have occurred unless specified. Time Spent With Patient Time: Total time managing care of this patient today ____ minutes.
--- NOTE | 2024-09-22 14:34 | P.CONAN_ITS ---
Documented by User: Tova Lawson NP 09/21/24 09:09 HPI - Anesthesia Eval Consult details Narrative: 83yo M for Left I&D of ankle Removal Orthopedic Hardware s/p Left Ankle Fracture ORIF 01/2024 with GA-LMA 4, block [place] [facility] [place] with circumflex stenting prior to transcatheter aortic valve replacement 2021. Stable at last office visit 06/2024. [place] [facility] [place]. Last office visit 11/2023. Stable, mod ORR at baseline [facility] Active Problems Active Problems: All Active Problems Septic arthritis of ankle (Acute) Ankle fracture, lateral malleolus, closed (Acute) Impacted cerumen, right ear (Acute) Dizziness (Acute) Hyperlipidemia (Acute) HTN (hypertension) (Acute) S/P TAVR (transcatheter aortic valve replacement) (Acute) CAD (coronary artery disease) (Acute) Murmur, cardiac (Acute) Chest pain (Acute) COPD (chronic obstructive pulmonary disease) (Acute) Asbestosis (Acute) Past Medical History Medical History Hyperlipidemia HTN (hypertension) CAD (coronary artery disease) Murmur, cardiac Chest pain COPD (chronic obstructive pulmonary disease) Asbestosis Family History Family History Father CAD (coronary artery disease) Mother No problems noted. Family history of problems with anesthesia: No Surgical History Surgical History S/P TAVR (transcatheter aortic valve replacement) Stented coronary artery Hx of cardiac catheterization History of Problems with Anesthesia: No Social History Social History Are you a primary nurse wound care to a significant other at home: No Do you presently have visiting nurse or other home services: No Patient Tobacco Use Status: Former Tobacco user Tobacco use type: Cigarette and Cigar Years Smoked: 14 years old Use of substances other than those prescribed or required for medical reasons: No Have you been hit, kicked, punched, or otherwise hurt by someone within the past year? If so, by whom?: No Are you DNR?: No Advance Directives: No Advance Directives Information Provided: No Recently lost weight without trying: No Meds Allergies Allergy/AdvReac Type Severity Reaction Status Date / Time niacin Allergy Severe Upset Verified 09/18/24 14:10 Stomach procaine [From Novocain] Allergy Severe I GET Verified 09/18/24 14:10 MEAN simvastatin AdvReac Severe myopathy Verified 09/18/24 14:10 Home Medications ?Medication ?Instructions ?Recorded ?Confirmed ?Last Taken ?Type acetaminophen 325 mg tablet 650 mg PO Q6H PRN pain 09/22/24 09/22/24 Unknown History atorvastatin 80 mg tablet 80 mg PO DAILY 09/22/24 09/22/24 09/21/24 History Exam Pertinent Lab Results Pertinent Lab Results: Laboratory Tests 01/10/24 18:51 WBC 7.5 Hgb 13.6 L Hct 39.5 L Plt Count 108 L Sodium 141 Potassium 3.4 Chloride 108 Carbon Dioxide 23 BUN 23 H Creatinine 0.94 Narrative Narrative: ECHO 07/2024 Conclusions: - The left ventricular systolic function is normal. The calculated ejection fraction is 60% by biplane method. - A bioprosthetic aortic valve is present. The prosthetic aortic valve appears to be functioning normally. EKG 06/2024 NSR, PACs Assessment and Plan Assessment Anesthesia Assessment: Chart Reviewed Final Anesthetic Review Family History of Problems with Anesthesia: No History of Problems with Anesthesia: No Documented by User: Raine Bond DO 09/22/24 14:37 [facility] Past Medical History Medical History Hyperlipidemia HTN (hypertension) CAD (coronary artery disease) Murmur, cardiac Chest pain COPD (chronic obstructive pulmonary disease) Asbestosis Family History Family History Father CAD (coronary artery disease) Mother No problems noted. Family history of problems with anesthesia: No Surgical History Surgical History S/P TAVR (transcatheter aortic valve replacement) Stented coronary artery Hx of cardiac catheterization History of Problems with Anesthesia: No Social History Social History Are you a primary nurse wound care to a significant other at home: No Do you presently have visiting nurse or other home services: No Patient Tobacco Use Status: Former Tobacco user Tobacco use type: Cigarette and Cigar Years Smoked: 14 years old Use of substances other than those prescribed or required for medical reasons: No Have you been hit, kicked, punched, or otherwise hurt by someone within the past year? If so, by whom?: No Are you DNR?: No Advance Directives: No Advance Directives Information Provided: No Recently lost weight without trying: No Meds Allergies Allergy/AdvReac Type Severity Reaction Status Date / Time niacin Allergy Severe Upset Verified 09/18/24 14:10 Stomach procaine [From Novocain] Allergy Severe I GET Verified 09/18/24 14:10 MEAN simvastatin AdvReac Severe myopathy Verified 09/18/24 14:10 Home Medications ?Medication ?Instructions ?Recorded ?Confirmed ?Last Taken ?Type acetaminophen 325 mg tablet 650 mg PO Q6H PRN pain 09/22/24 09/22/24 Unknown History atorvastatin 80 mg tablet 80 mg PO DAILY 09/22/24 09/22/24 09/21/24 History Exam Exam Date and Time: 09/22/24 1434 Height,Weight and Vital Signs: Height 5 ft 6 in Weight 79.379 kg Vital Signs Temperature 98.2 F 09/22/24 13:21 Pulse Rate 75 09/22/24 13:21 Respiratory Rate 16 09/22/24 13:21 Blood Pressure 147/64 H 09/22/24 13:21 Pulse Oximetry 98 09/22/24 13:21 Oxygen Delivery Method Room Air 09/22/24 13:21 Temperature 98.2 F 09/22/24 13:21 Pulse Rate 75 09/22/24 13:21 Respiratory Rate 16 09/22/24 13:21 Blood Pressure 147/64 H 09/22/24 13:21 Pulse Oximetry 98 09/22/24 13:21 Oxygen Delivery Method Room Air 09/22/24 13:21 Airway Mallampati Class: II TM Dist: >3cm Neck ROM: Full Denture: Upper and Lower Heart: S1S2 Lungs: CTAB Assessment and Plan Assessment Anesthesia Assessment: Anesthesia Plan Discussed and Chart Reviewed Final Anesthetic Review Family History of Problems with Anesthesia: No History of Problems with Anesthesia: No NPO: Yes ASA Class: III Final Preanesthetic Review: No Changes in Pt Med Stat, Meds/Allgs Chart Reviewed, Consent Obtained/Reviewed and Anes Risks/Benef Reviewed Patient Risk: Intermediate Procedure Risk: Intermediate Anesthetic Plan Anesthetic Plan: GA and Agree w/ Assess. and Plan Disposition: Standard PACU
--- OUTSIDE RECORDS SUMMARY | 2024-09-22 15:46 | XMS_ITS | Encounter Summary ---
Author Organization [facility] Address [address] [place] [address] Care Team Providers Care Story Analyst Name Role Phone Adam Noonan MD Primary Care Provider Unava ilable Reason for Visit * Reason Onset Date Comments Medication 02/11/2018 Encounter Details Date Type Department Care Team Description 02/11/2018 Telephone Pulmonology - [place] [address] [facility] [address] [place] [address] Eric Tucker MD Medication Social [...] Primary documented in this encounter Care Teams Story Analyst Relationship Specialty Start Date End Date Adam Noonan MD PCP - General Internal Medicine 11/19/17 documented as of this encounter
--- OUTSIDE RECORDS SUMMARY | 2024-09-22 15:46 | XMS_ITS | Encounter Summary ---
Author Organization [facility] Address [address] [place] [address] Care Team Providers Care Dishwasher Busser Name Role Phone Adam Noonan MD Primary Care Provider Unava ilable Reason for Visit * Reason Onset Date Comments refill request 02/05/2019 Encounter Details Date Type Department Care Team Description 02/05/2019 Telephone Pulmonology - [place] [address] [facility] [address] [place] [address] Eric Tucker MD refill request [...] EDT Yes please fax script printed to [place] [facility] [place] * Telephone Encounter - Xenia Bernabe - 02/05/2019 1:47 PM EDT Patient calling states was seen on January 19 was told pro air was suppose to be sent over to [facility] pharmacy and patient still has yet to rcv it and needs young fax over is [phone] documented in this encounter Plan of Treatment Not on file documented as of this encounter Visit Diagnoses Not on filedocumented in this encounter Care Teams Dishwasher Busser Relationship Specialty Start Date End Date Adam Noonan MD PCP - General Internal Medicine 11/19/17 documented as of this encounter
--- OUTSIDE RECORDS SUMMARY | 2024-09-22 15:46 | XMS_ITS | Encounter Summary ---
Author Organization [facility] Address [address] [place] [address] Care Team Providers Care Management Development Specialist Name Role Phone Adam Noonan MD Primary Care Provider Unava ilable Reason for Visit * Reason Onset Date Comments medication problems 02/16/2019 Encounter Details Date Type Department Care Team Description 02/16/2019 Telephone Pulmonology - [place] [address] [facility] [address] [place] [address] Eric Tucker MD medication problems [...] on 02/08[facility] forwarding to [facility] ([place], [place]) * Telephone Encounter - Hannah Tucker - 02/16/2019 4:11 PM EDT [place] [facility] send a fax that they can't fill the prescription for ALBUTEROL SULFATE (PROAIR HFA) 108 (90 BASE) MCG/ACT Aero Soln for 11 refills It needs to be send to a local pharmacy. I call and spoke with the patient and he wants the medication to be send to [id number] - [place] - [address] [facility] documented in this encounter Plan of Treatment Not on file documented as of this encounter Visit Diagnoses Diagnosis Simple chronic bronchitis (HCC)- Primary Simple chronic bronchitis documented in this encounter Care Teams Management Development Specialist Relationship Specialty Start Date End Date Adam Noonan MD PCP - General Internal Medicine 11/19/17 documented as of this encounter
--- OUTSIDE RECORDS SUMMARY | 2024-09-22 15:46 | XMS_ITS ---
Author Organization [facility] Address [address] [place] [address] Care Team Providers Care English As A Second Language Instructor Name Role Phone Josue Simmons MD Primary Care Provider UnavailLyn Main [phone] REASON FOR VISIT 04/23/24 Encounters Encounter Location Date Provider Diagnosis [facility] [address] [place] [address] 04/02/2024 Lyn Lund Plan Of Treatment No Information Progress Notes * Reed MALLORY HDOB:1940 (83 yo M)Acc No.[id number]:04/02/2024 Patient:?Reed Mallory :1940???Age:83 Y???Sex:Male Address:[address] [place] [id number] * true * Date:? Generated for Printi ng/Famichaelg/eTransmitting on:?09/22/2024 03:46 PM EDT
--- OUTSIDE RECORDS SUMMARY | 2024-09-22 15:46 | XMS_ITS ---
Author Organization [facility] Address [address] [place] [address] Care Team Providers Care Telephoner Name Role Phone Josue Simmons MD Primary Care Provider Unavailab Lyn Damico [phone] REASON FOR VISIT TELETYPE OPERATOR PPWK Entered Encounters Encounter Location Date Provider Diagnosis [facility] [address] [place] [address] 03/12/2024 Lyn Lund Plan Of Treatment No Information Progress Notes * Reed MALLORY HDOB:1940 (83 yo M)Acc No.[id number]:03/12/2024 Patient:?Reed Mallory :1940???Age:83 Y???Sex:Male Address:[address] [place] [id number] * true * Date:? Generated for Printi ng/Famichaelg/eTransmitting on:?09/22/2024 03:46 PM EDT
--- OUTSIDE RECORDS SUMMARY | 2024-09-22 15:46 | XMS_ITS | Encounter Summary ---
Author Organization [facility] Address [address] [place] [address] Care Team Providers Care Hand Funnel Coater Name Role Phone Adam Noonan MD Primary Care Provider Unava ilable Encounter Details Date Type Department Care Team Description 11/18/2018 Release of Information Medical Records [address] [place] [id number] Abstract, Provider Social History Tobacco Use Types [...] on filedocumented in this encounter Care Teams Hand Funnel Coater Relationship Specialty Start Date End Date Adam Noonan MD PCP - General Internal Medicine 11/19/17 documented as of this encounter
--- OUTSIDE RECORDS SUMMARY | 2024-09-22 15:47 | XMS_ITS | Continuity of Care Document ---
Author Name [facility] Organization [facility] Care Team Providers Care Chemistry Tutor Name Role Phone [facility] Unavailable Unavailable Problems Combined list of problems from Department of Defense and Veterans Affairs facilities. It does not include entries that were removed or entered in error. Problem Status Onset Date Problem Type Date of Resolution Comments Source Chronic dermatitis Active 023 Condition Oct 05, 2022 Entered By: BYRON BARRON Comment: referred to dermatology [facility] Chest Pain (SCT [id number]) Active Condition Jan 02, 2022 Entered By: BYRON BARRON Comment: ordered stress test [facility] COPD - Chronic Obstructive Pulmonary Disease (SCT [id number]) Active Condition Dec 28, 2021 Entered By: BYRON BARRON Comment: on inhalers [facility] Cataract Active Condition Oct 12, 2020 Entered By: BYRON BARRON Comment: referred for surgery [facility] HTN - Hypertension (SCT [id number]) Active Condition Oct 21, 2020 Entered By: BYRON BARRON Comment: treated witn medication [facility] Hypercholesterolemia (SCT [id number]) Active Condition Oct 21, 2020 Entered By: [...] TWICE DAILY FOR INFECTIO N ORAL 11/15/2023 [id number] MAUREEN BARRON D 2023 20 [facility] ASPIRIN 81MG TAB,CHEWABL E CHEW ONE TABLET BY MOUTH ONCE DAILY ORAL ACTIVE JANINE HAMMOND R 2021 [facility] ATORVASTATI N CA 80MG TAB TAKE ONE TABLET BY MOUTH AT BEDTIME ORAL ACTIVE 06/26/2025 [id number] MAUREEN BARRON D 2023 90 [facility] ATORVASTATI N CA 80MG TAB TAKE ONE TABLET BY MOUTH AT BEDTIME ORAL DISCONT INUED 06/19/2024 [id number] 4 MOHAMUD ARGUETA 2022 90 [facility] CARBOXYMETH YLCELLULOSE NA 0.5% SOLN,OPH INSTILL 1 DROP INTO EACH EYE FOUR TIMES A DAY FOR DRY EYE OPHTHA LMIC ACTIVE 09/02/2025 [id number] OSBALDO CALDERON EY J 2024 45 [facility] CEPHALEXIN 500MG CAP TAKE ONE CAPSULE BY MOUTH EVERY 8 HOURS FOR INFECTIO N ORAL 04/04/2024 [id number] MAMTA STERN 2023 21 [facility] EYELID CLEANSER,EY E SCRUB PAD USE 1 PAD TOPICALL Y EVERY MORNING BLEPHARI TIS TOPICA L ACTIVE 09/02/2025 [id number] OSBALDO CALDERON EY J 2024 90 [facility] EZETIMIBE 10MG TAB TAKE ONE TABLET BY MOUTH ONCE DAILY TO LOWER CHOLESTE ROL ORAL ACTIVE 06/26/2025 [id number] MAUREEN BARRON D 2023 90 [facility] EZETIMIBE 10MG TAB TAKE ONE TABLET BY MOUTH ONCE DAILY TO LOWER CHOLESTE ROL ORAL DISCONT INUED 06/19/2024 [id number] KENDALL,MOHAMUD AV 2022 90 [facility] HYDROCHLORO THIAZIDE 25MG TAB TAKE ONE TABLET BY MOUTH ONCE DAILY ORAL 06/19/2024 [id number] KENDALL,MOHAMUD AV 2023 90 [facility] METOPROLOL SUCCINATE 50MG TAB,SA TAKE ONE TABLET BY MOUTH ONCE DAILY FOR BLOOD PRESSURE /HEART ORAL ACTIVE 06/26/2025 [id number] MAUREEN BARRON PAIGE D 2023 90 [facility] METOPROLOL SUCCINATE 50MG TAB,SA TAKE ONE TABLET BY MOUTH ONCE DAILY FOR BLOOD PRESSURE /HEART ORAL DISCONT INUED 06/19/2024 [id number] KENDALL,MOHAMUD AV 2022 90 [facility] TRIAMCINOLO NE ACETONIDE 0.1% CREAM,TOP APPLY A MODERATE AMOUNT TOPICALL Y TWICE DAILY NEEDED FOR ITCHING TOPICA L ACTIVE 10/24/2024 [id number] 4 MAUREEN BARRON PAIGE D 2023 [facility] Allergies, Adverse Reactions, Alerts Combined list of allergies from Department of Defense and Veterans Affairs facilities. It does not include entries that were removed or entered in error. Substance Category Reaction Severity Reaction type Status Date Reported Comments Source LIDOCAINE Propensity to adverse reactions to drug (finding) Itching MODERATE active 2 [facility] [place] Propensity to adverse reactions to drug (finding) Feeling agitated active 8 [facility] PROCAINE Propensity to adverse reactions to drug (finding) active 2 [facility] Immunizations Combined list of available immunizations from the Department of Defense and Veterans Affairs facilities. Immunization Series Date Given Administered By Site Reaction Lot Number CVX Code Drug Utilities Estimator And Drafter Status Comments Source COVID-19 (MODERNA), MRNA, LNP-S, PF, 50 MCG/0.5 ML (AGES 12+ YEARS) 7 2023 ALMA MAHER LEFT DELTO ID [id number] 312 complet ed [facility] INFLUENZA, HIGH-DOSE, TRIVALENT, PF 2023 ALMA MAHER M LEFT DELTO ID [id number] 135 complet ed [facility] RSV, BIVALENT, PROTEIN SUBUNIT RSVPREF, DILUENT RECONSTITUTED , 0.5 ML, PF 1 2023 GRETCHEN ANDRADE E LEFT DELTO ID [id number] 305 complet ed [facility] COVID-19 (MODERNA), MRNA, LNP-S, PF, 50 MCG/0.5 ML (AGES 12+ YEARS) 1 2023 GRETCHEN ANDRADE E LEFT DELTO ID [id number] 312 complet ed [facility] INFLUENZA, HIGH-DOSE, QUADRIVALENT 2022 JERRI SHAIKH M LEFT DELTO ID [id number] 197 complet ed [facility] COVID-19 (MODERNA), MRNA, LNP-S, BIVALENT BOOSTER, PF, 50 MCG/0.5 ML OR 25MCG/0.25 ML DOSE 2021 JERRI SHAIKH ER M LEFT DELTO ID [id number] 229 complet ed [facility] INFLUENZA VACCINE, QUADRIVALENT, ADJUVANTED 2021 205 complet ed [facility] COVID-19 (MODERNA), MRNA, LNP-S, PF, 100 MCG/0.5ML DOSE OR 50 MCG/0.25ML DOSE 3 2021 207 complet ed MOD; [id number] ; 2 [facility] PNEUMOCOCCAL CONJUGATE PCV20, POLYSACCHARID E [id number] CONJUGATE, ADJUVANT, PF 2021 216 complet ed [facility] COVID-19 (MODERNA), MRNA, LNP-S, PF, 100 MCG OR 50 MCG DOSE 3 2020 207 complet ed MOD; [id number]; 2 [facility] INFLUENZA, UNSPECIFIED FORMULATION 2020 88 complet ed [facility] TDAP 2020 115 complet ed [facility] COVID-19 (MODERNA), MRNA, LNP-S, PF, 100 MCG/0.5 ML DOSE 2 2020 207 complet ed MOD; [id number]; 1 [facility] COVID-19 (MODERNA), MRNA, LNP-S, PF, 100 MCG/0.5 ML DOSE 1 2020 207 complet ed MOD; [id number]; 1 [facility] [...] DOSE SEASONAL 2017 135 complet ed Partner: [facility]. Administe red by: ARLET BOLTON (RZJ=[phone]). Partner 0 Lot#: [id number] Mfr: Sanof[employer] P[employer]; Dosage: 0.5 [facility] PNEUMOCOCCAL POLYSACCHARID E PPV23 2016 33 complet ed Partner: [facility]. Administe red by: ARLET BOLTON (KPB=[phone]). Partner 0 Lot#: [id number] Mfr: [employer]; Dosage: 0.5 [facility] INFLUENZA, HIGH DOSE SEASONAL 2016 135 complet ed [facility] Administe red by: ARLET BOLTON (PZG=[phone]). Partner 0 Lot#: [id number] Mfr: Sanofi Pasteur; Dosage: 0.5 [facility] [place] [place] Results Combined list of recent [...] Apr 04, 2024 05:53 PM Reporting Lab: [facility] [place] [address] [address] Performing Lab: [facility] [place] [address] [address] [facility] BASIC METABOLI C PANEL (fasting ) GLUCOSE [MASS/VOLU ME] IN SERUM OR PLASMA 93 mg/dL 65 - 100 04/07 Specimen Type: SERUM No comment entered. Ordering Provider: JAMILA BARRON Report Released Date/Time: Apr 04, 2024 05:53 PM Reporting Lab: [facility] [place] [address] [address] Performing Lab: [facility] [place] [address] [address] [facility] BASIC METABOLI C PANEL (fasting ) SODIUM [MOLES/VOL UME] IN SERUM OR PLASMA 139 mmol/L 135 - 145 04/07 Specimen Type: SERUM No comment entered. Ordering Provider: JAMILA BARRON Report Released Date/Time: Apr 04, 2024 05:53 PM Reporting Lab: [facility] [place] [facility] [address] [facility] [address] Performing Lab: [facility] [place] [address] [address] [facility] [place] [facility] BASIC METABOLI C PANEL (fasting ) POTASSIUM [MOLES/VOL UME] IN SERUM OR PLASMA 3.9 mmol/L 3.5 - 5.0 04/07 Specimen Type: SERUM No comment entered. Ordering Provider: JAMILA BARRON Report Released Date/Time: Apr 04, 2024 05:53 PM Reporting Lab: [facility] [address] [address] Performing Lab: [facility] [address] [address] [facility] BASIC METABOLI C PANEL (fasting ) CHLORIDE [MOLES/VOL UME] IN SERUM OR PLASMA 102 mmol/L 100 - 110 04/07 Specimen Type: SERUM No comment entered. Ordering Provider: JAMILA BARRON Report Released Date/Time: Apr 04, 2024 05:53 PM Reporting Lab: [facility] [address] [address] Performing Lab: [facility] [address] [facility] BASIC METABOLI C PANEL (fasting ) CARBON DIOXIDE, TOTAL [MOLES/VOL UME] IN SERUM OR PLASMA 26 meq/L 20 - 30 04/07 Specimen Type: SERUM No comment entered. Ordering Provider: JAMILA BARRON Report Released Date/Time: Apr 04, 2024 05:53 PM Reporting Lab: [facility] [address] [address] Performing Lab: [facility] [address] [facility] BASIC METABOLI C PANEL (fasting ) CREATININE [MASS/VOLU ME] IN SERUM OR PLASMA 0.92 mg/dL 0.50 - 1.40 04/07 Specimen Type: SERUM No comment entered. Ordering Provider: JAMILA BARRON Report Released Date/Time: Apr 04, 2024 05:53 PM Reporting Lab: [facility] [address] [address] Performing Lab: [facility] [address] [facility] [place] [facility] BASIC METABOLI C PANEL (fasting ) GLOMERULAR FILTRATION RATE/1.73 SQ M.PREDICTE D [VOLUME RATE/AREA] IN SERUM, PLASMA OR BLOOD BY CREATININE -BASED FORMULA (CKD-EPI 2020) 82 mL/min 60 04/07 Specimen Type: SERUM No comment entered. Ordering Provider: JAMILA BARRON Report Released Date/Time: Apr 04, 2024 05:53 PM Reporting Lab: [facility] [place] [facility] [address] [facility] [address] Performing Lab: [facility] [place] [facility] [address] [facility] [address] [facility] [place] [facility] LIVER FUNCTION PROTEIN [MASS/VOLU ME] IN SERUM OR PLASMA 6.8 g/dL 6.0 - 8.3 04/07 Specimen Type: SERUM No comment entered. Ordering Provider: JAMILA BARRON Report Released Date/Time: Apr 04, 2024 05:53 PM Reporting Lab: [facility] [place] [facility] [address] [facility] [address] Performing Lab: [facility] [place] [facility] [address] [facility] [address] [facility] LIVER FUNCTION ALBUMIN [MASS/VOLU ME] IN SERUM OR PLASMA 4.0 g/dL 3.5 - 5.0 04/07 Specimen Type: SERUM No comment entered. Ordering Provider: JAMILA BARRON Report Released Date/Time: Apr 04, 2024 05:53 PM Reporting Lab: [facility] [place] [facility] [address] [facility] [address] Performing Lab: [facility] [place] [facility] [address] [facility] [address] [facility] LIVER FUNCTION ALKALINE PHOSPHATAS E [ENZYMATIC ACTIVITY/V OLUME] IN SERUM OR PLASMA 118 U/L 40 - 150 04/07 Specimen Type: SERUM No comment entered. Ordering Provider: JAMILA BARRON Report Released Date/Time: Apr 04, 2024 05:53 PM Reporting Lab: [facility] [place] [facility] [address] [facility] [address] Performing Lab: [facility] [place] [facility] [address] [facility] [address] [facility] [place] [facility] LIVER FUNCTION ASPARTATE AMINOTRANS FERASE [ENZYMATIC ACTIVITY/V OLUME] IN SERUM OR PLASMA 30 U/L 5 - 34 04/07 Specimen Type: SERUM No comment entered. Ordering Provider: JAMILA BARRON Report Released Date/Time: Apr 04, 2024 05:53 PM Reporting Lab: [facility] [place] [facility] [address] [facility] [address] Performing Lab: [facility] [place] [facility] [address] [facility] [address] [facility] LIVER FUNCTION ALANINE AMINOTRANS FERASE [ENZYMATIC ACTIVITY/V OLUME] IN SERUM OR PLASMA 23 U/L 04/07 Specimen Type: SERUM No comment entered. Ordering Provider: JAMILA BARRON Report Released Date/Time: Apr 04, 2024 05:53 PM Reporting Lab: [facility] [place] [facility] [address] [facility] [address] Performing Lab: [facility] [place] [facility] [address] [facility] [address] [facility] LIVER FUNCTION BILIRUBIN. TOTAL [MASS/VOLU ME] IN SERUM OR PLASMA 1.0 mg/dL 0.2 - 1.2 04/07 Specimen Type: SERUM No comment entered. Ordering Provider: JAMILA BARRON Report Released Date/Time: Apr 04, 2024 05:53 PM Reporting Lab: [facility] [place] [facility] [address] [facility] [address] Performing Lab: [facility] [place] [facility] [address] [facility] [address] [facility] [place] [facility] TSH THYROTROPI N [UNITS/VOL UME] IN SERUM OR PLASMA 2.34 u[IU]/mL 0.35 - 5.00 04/07 Specimen Type: SERUM No comment entered. Ordering Provider: JAMILA BARRON Report Released Date/Time: Apr 04, 2024 05:53 PM Reporting Lab: [facility] [place] [facility] [address] [facility] [address] Performing Lab: [facility] [place] [facility] [address] [facility] [address] [facility] [place] [facility] LIPID PANEL FASTING CHOLESTERO L [MASS/VOLU ME] IN SERUM OR PLASMA 139 mg/dL 04/07 Specimen Type: SERUM No comment entered. Ordering Provider: JAMILA BARRON Report Released Date/Time: Apr 04, 2024 05:53 PM Reporting Lab: [facility] [place] [facility] [address] [facility] [address] Performing Lab: [facility] [place] [facility] [address] [facility] [address] [facility] [place] [facility] LIPID PANEL FASTING TRIGLYCERI DE [MASS/VOLU ME] IN SERUM OR PLASMA 136 mg/dL 0 - 150 04/07 Specimen Type: SERUM No comment entered. Ordering Provider: JAMILA BARRON Report Released Date/Time: Apr 04, 2024 05:53 PM Reporting Lab: [facility] [place] [facility] [address] [facility] [address] Performing Lab: [facility] [place] [facility] [address] [facility] [address] [facility] [place] [facility] LIPID PANEL FASTING CHOLESTERO L IN LDL [MASS/VOLU ME] IN SERUM OR PLASMA BY CALCULATIO N 72 mg/dL 0 - 129 04/07 Specimen Type: SERUM No comment entered. Ordering Provider: JAMILA BARRON Report Released Date/Time: Apr 04, 2024 05:53 PM Reporting Lab: [facility] [place] [facility] [address] [facility] [address] Performing Lab: [facility] [place] [facility] [address] [facility] [address] [facility] [place] [facility] LIPID PANEL FASTING CHOLESTERO L.TOTAL/CH OLESTEROL IN HDL [MASS RATIO] IN SERUM OR PLASMA 3.5 04/07 Specimen Type: SERUM No comment entered. Ordering Provider: JAMILA BARRON Report Released Date/Time: Apr 04, 2024 05:53 PM Reporting Lab: [facility] [place] [facility] [address] [facility] [address] Performing Lab: [facility] [address] [facility] [address] [facility] [place] [facility] LIPID PANEL FASTING CHOLESTERO L IN HDL [MASS/VOLU ME] IN SERUM OR PLASMA 40 mg/dL 40 - 60 04/07 Specimen Type: SERUM No comment entered. Ordering Provider: JAMILA BARRON Report Released Date/Time: Apr 04, 2024 05:53 PM Reporting Lab: [facility] [place] [facility] [address] [facility] [address] Performing Lab: [facility] [address] [address] [facility] CBC AND DIFF (AUTO) LEUKOCYTES [#/VOLUME] IN BLOOD BY AUTOMATED COUNT 7.77 10*3/uL 4.50 - 11.00 04/07 Specimen Type: BLOOD No comment entered. Ordering Provider: JAMILA BARRON Report Released Date/Time: Apr 04, 2024 05:53 PM Reporting Lab: [facility] [place] [address] [address] Performing Lab: [facility] [place] [facility] [address] [facility] [address] [facility] [place] [facility] CBC AND DIFF (AUTO) ERYTHROCYT ES [#/VOLUME] IN BLOOD BY AUTOMATED COUNT 4.29 10*6/uL 4.23 - 5.66 04/07 Specimen Type: BLOOD No comment entered. Ordering Provider: JAMILA BARRON Report Released Date/Time: Apr 04, 2024 05:53 PM Reporting Lab: [facility] [place] [address] [address] Performing Lab: [facility] [place] [address] [address] [facility] [place] [facility] CBC AND DIFF (AUTO) HEMOGLOBIN [MASS/VOLU ME] IN BLOOD 14.2 g/dL 12.8 - 17 04/07 Specimen Type: BLOOD No comment entered. Ordering Provider: JAMILA BARRON Report Released Date/Time: Apr 04, 2024 05:53 PM Reporting Lab: [facility] [place] [facility] [address] [facility] [address] Performing Lab: [facility] [place] [facility] [address] [facility] [address] [facility] [place] [facility] CBC AND DIFF (AUTO) HEMATOCRIT [VOLUME FRACTION] OF BLOOD BY AUTOMATED COUNT 41.1 39.2 - 50.4 04/07 Specimen Type: BLOOD No comment entered. Ordering Provider: JAMILA BARRON Report Released Date/Time: Apr 04, 2024 05:53 PM Reporting Lab: [facility] [place] [address] [address] Performing Lab: [facility] [place] [facility] [address] [facility] [address] [facility] [place] [facility] CBC AND DIFF (AUTO) MCV [ENTITIC VOLUME] BY AUTOMATED COUNT 95.8 fL 82 - 99 04/07 Specimen Type: BLOOD No comment entered. Ordering Provider: JAMILA BARRON Report Released Date/Time: Apr 04, 2024 05:53 PM Reporting Lab: [facility] [place] [facility] [address] [facility] [address] Performing Lab: [facility] [place] [facility] [address] [facility] [address] [facility] [place] [facility] CBC AND DIFF (AUTO) MCHC [MASS/VOLU ME] BY AUTOMATED COUNT 34.5 g/dL 30.8 - 35.1 04/07 Specimen Type: BLOOD No comment entered. Ordering Provider: JAMILA BARRON Report Released Date/Time: Apr 04, 2024 05:53 PM Reporting Lab: [facility] [place] [facility] [address] [facility] [address] Performing Lab: [facility] [place] [facility] [address] [facility] [address] [facility] [place] [facility] CBC AND DIFF (AUTO) PLATELETS [#/VOLUME] IN BLOOD BY AUTOMATED COUNT 184 10*3/uL 140 - 360 04/07 Specimen Type: BLOOD No comment entered. Ordering Provider: JAMILA BARRON Report Released Date/Time: Apr 04, 2024 05:53 PM Reporting Lab: [facility] [place] [facility] [address] [facility] [address] Performing Lab: [facility] [place] [facility] [address] [facility] [address] [facility] [place] [facility] CBC AND DIFF (AUTO) ERYTHROCYT E DISTRIBUTI ON WIDTH [RATIO] BY AUTOMATED COUNT 13.1 12.0 - 16.0 04/07 Specimen Type: BLOOD No comment entered. Ordering Provider: JAMILA BARRON Report Released Date/Time: Apr 04, 2024 05:53 PM Reporting Lab: [facility] [place] [facility] [address] [facility] [address] Performing Lab: [facility] [place] [facility] [address] [facility] [address] [facility] [place] [facility] CBC AND DIFF (AUTO) MONOCYTES [#/VOLUME] IN BLOOD BY AUTOMATED COUNT 0.98 10*3/uL 0.30 - 1.10 04/07 Specimen Type: BLOOD No comment entered. Ordering Provider: JAMILA BARRON Report Released Date/Time: Apr 04, 2024 05:53 PM Reporting Lab: [facility] [place] [facility] [address] [facility] [address] Performing Lab: [facility] [place] [facility] [address] [address] [place] [facility] [place] [facility] CBC AND DIFF (AUTO) MCH [ENTITIC MASS] BY AUTOMATED COUNT 33.1 pg 26.2 - 32.6 04/07 H Specimen Type: BLOOD No comment entered. Ordering Provider: JAMILA BARRON Report Released Date/Time: Apr 04, 2024 05:53 PM Reporting Lab: [facility] [place] [facility] [address] [address] Performing Lab: [facility] [place] [facility] [address] [facility] [address] [facility] [place] [facility] CBC AND DIFF (AUTO) NEUTROPHIL S/100 LEUKOCYTES IN BLOOD BY AUTOMATED COUNT 52.3 43.7 - 75.8 04/07 Specimen Type: BLOOD No comment entered. Ordering Provider: JAMILA BARRON Report Released Date/Time: Apr 04, 2024 05:53 PM Reporting Lab: [facility] [place] [facility] [address] [address] Performing Lab: [facility] [place] [facility] [address] [address] [place] [facility] [place] [facility] CBC AND DIFF (AUTO) LYMPHOCYTE S/100 LEUKOCYTES IN BLOOD BY AUTOMATED COUNT 31.7 14.0 - 42.3 04/07 Specimen Type: BLOOD No comment entered. Ordering Provider: JAMILA BARRON Report Released Date/Time: Apr 04, 2024 05:53 PM Reporting Lab: [facility] [place] [facility] [address] [facility] [address] Performing Lab: [facility] [place] [facility] [address] [address] [place] [facility] [place] [facility] CBC AND DIFF (AUTO) MONOCYTES/ 100 LEUKOCYTES IN BLOOD BY AUTOMATED COUNT 12.6 5.1 - 13.7 04/07 Specimen Type: BLOOD No comment entered. Ordering Provider: JAMILA BARRON Report Released Date/Time: Apr 04, 2024 05:53 PM Reporting Lab: [facility] [place] [facility] [address] [facility] [address] Performing Lab: [facility] [place] [facility] [address] [facility] [address] [facility] [place] [facility] CBC AND DIFF (AUTO) EOSINOPHIL S/100 LEUKOCYTES IN BLOOD BY AUTOMATED COUNT 2.3 0.4 - 6.8 04/07 Specimen Type: BLOOD No comment entered. Ordering Provider: JAMILA BARRON Report Released Date/Time: Apr 04, 2024 05:53 PM Reporting Lab: [facility] [place] [facility] [address] [facility] [address] Performing Lab: [facility] [place] [facility] [address] [facility] [address] [facility] [place] [facility] CBC AND DIFF (AUTO) BASOPHILS/ 100 LEUKOCYTES IN BLOOD BY AUTOMATED COUNT 0.6 0.1 - 2.0 04/07 Specimen Type: BLOOD No comment entered. Ordering Provider: JAMILA BARRON Report Released Date/Time: Apr 04, 2024 05:53 PM Reporting Lab: [facility] [place] [facility] [address] [facility] [address] Performing Lab: [facility] [place] [facility] [address] [facility] [address] [facility] [place] [facility] CBC AND DIFF (AUTO) NEUTROPHIL S [#/VOLUME] IN BLOOD BY AUTOMATED COUNT 4.06 10*3/uL 2.20 - 7.60 04/07 Specimen Type: BLOOD No comment entered. Ordering Provider: JAMILA BARRON Report Released Date/Time: Apr 04, 2024 05:53 PM Reporting Lab: [facility] [place] [facility] [address] [facility] [address] Performing Lab: [facility] [place] [facility] [address] [facility] [address] [facility] [place] [facility] CBC AND DIFF (AUTO) LYMPHOCYTE S [#/VOLUME] IN BLOOD BY AUTOMATED COUNT 2.46 10*3/uL 1.00 - 3.20 04/07 Specimen Type: BLOOD No comment entered. Ordering Provider: JAMILA BARRON Report Released Date/Time: Apr 04, 2024 05:53 PM Reporting Lab: [facility] [place] [facility] [address] [facility] [address] Performing Lab: [facility] [place] [facility] [address] [facility] [address] [facility] [place] [facility] CBC AND DIFF (AUTO) EOSINOPHIL S [#/VOLUME] IN BLOOD BY AUTOMATED COUNT 0.18 10*3/uL 0.03 - 0.44 04/07 Specimen Type: BLOOD No comment entered. Ordering Provider: JAMILA BARRON Report Released Date/Time: Apr 04, 2024 05:53 PM Reporting Lab: [facility] [place] [address] [address] Performing Lab: [facility] [place] [address] [address] [facility] [place] [facility] CBC AND DIFF (AUTO) BASOPHILS [#/VOLUME] IN BLOOD BY AUTOMATED COUNT 0.05 10*3/uL 0.01 - 0.13 04/07 Specimen Type: BLOOD No comment entered. Ordering Provider: JAMILA BARRON Report Released Date/Time: Apr 04, 2024 05:53 PM Reporting Lab: [facility] [place] [address] [address] Performing Lab: [facility] [place] [address] [address] [facility] [place] [facility] CBC AND DIFF (AUTO) IMMATURE GRANULOCYT ES/100 LEUKOCYTES IN BLOOD BY AUTOMATED COUNT 0.5 0.0 - 0.7 04/07 Specimen Type: BLOOD No comment entered. Ordering Provider: JAMILA BARRON Report Released Date/Time: Apr 04, 2024 05:53 PM Reporting Lab: [facility] [place] [address] [address] Performing Lab: [facility] [place] [address] [address] [facility] [place] [facility] CBC AND DIFF (AUTO) IMMATURE GRANULOCYT ES [#/VOLUME] IN BLOOD 0.04 10*3/uL 0.00 - 0.06 04/07 Specimen Type: BLOOD No comment entered. Ordering Provider: JAMILA BARRON Report Released Date/Time: Apr 04, 2024 05:53 PM Reporting Lab: [facility] [place] [address] [address] Performing Lab[facility] [place] [facility] [address] [facility] [address] [facility] [place] [facility] CBC AND DIFF (AUTO) NRBC % 0.0 0.0 - 0.0 04/07 Specimen Type: BLOOD No comment entered. Ordering Provider: JAMILA BARRON Report Released Date/Time: Apr 04, 2024 05:53 PM Reporting Lab: [facility] [place] [facility] [address] [facility] [address] Performing Lab: [facility] [place] [facility] [address] [facility] [address] [facility] [place] [facility] CBC AND DIFF (AUTO) NRBC, ABS 0.00 10*3/uL 0.00 - 0.00 04/07 Specimen Type: BLOOD No comment entered. Ordering Provider: JAMILA BARRON Report Released Date/Time: Apr 04, 2024 05:53 PM Reporting Lab: [facility] [place] [address] [address] Performing Lab: [facility] [place] [address] [address] [facility] [place] [facility] URINALYS IS CLEAN CATCH COLOR OF URINE Yellow 04/07 Specimen Type: URINE Comment: If Glucose = >500 and Ketones are positive, please alert the Physician. Ordering Provider: JAMILA BARRON Report Released Date/Time: Apr 04, 2024 05:53 PM Reporting Lab: [facility] [place] [address] [address] Performing Lab: [facility] [place] [address] [address] [facility] [place] [facility] URINALYS IS CLEAN CATCH APPEARANCE OF URINE Clear 04/07 Specimen Type: URINE Comment: If Glucose = >500 and Ketones are positive, please alert the Physician. Ordering Provider: JAMILA BARRON Report Released Date/Time: Apr 04, 2024 05:53 PM Reporting Lab: [facility] [place] [address] [address] Performing Lab: [facility] [place] [facility] [address] [facility] [address] [facility] [place] [facility] URINALYS IS CLEAN CATCH GLUCOSE [MASS/VOLU ME] IN URINE Normalmg /dL 04/07 Specimen Type: URINE Comment: If Glucose = >500 and Ketones are positive, please alert the Physician. Ordering Provider: JAMILA BARRON Report Released Date/Time: Apr 04, 2024 05:53 PM Reporting Lab: [facility] [place] [facility] [address] [facility] [address] Performing Lab: [facility] [place] [facility] [address] [facility] [address] [facility] [place] [facility] URINALYS IS CLEAN CATCH KETONES [MASS/VOLU ME] IN URINE BY TEST STRIP NEGATIVE mg/dL 04/07 Specimen Type: URINE Comment: If Glucose = >500 and Ketones are positive, please alert the Physician. Ordering Provider: JAMILA BARRON Report Released Date/Time: Apr 04, 2024 05:53 PM Reporting Lab: [facility] [place] [facility] [address] [facility] [address] Performing Lab: [facility] [place] [facility] [address] [facility] [address] [facility] [place] [facility] URINALYS IS CLEAN CATCH ERYTHROCYT ES [PRESENCE] IN URINE SEDIMENT BY LIGHT MICROSCOPY NEGATIVE mg/dL 04/07 Specimen Type: URINE Comment: If Glucose = >500 and Ketones are positive, please alert the Physician. Ordering Provider: JAMILA BARRON Report Released Date/Time: Apr 04, 2024 05:53 PM Reporting Lab: [facility] [place] [address] [address] Performing Lab: [facility] [place] [address] [address] [facility] [place] [facility] URINALYS IS CLEAN CATCH PROTEIN [MASS/VOLU ME] IN URINE BY TEST STRIP 10 mg/dL 04/07 Specimen Type: URINE Comment: If Glucose = >500 and Ketones are positive, please alert the Physician. Ordering Provider: JAMILA BARRON Report Released Date/Time: Apr 04, 2024 05:53 PM Reporting Lab: [facility] [place] [facility] [address] [facility] [address] Performing Lab: [facility] [place] [facility] [address] [facility] [address] [facility] [place] [facility] URINALYS IS CLEAN CATCH NITRITE [PRESENCE] IN URINE NEGATIVE mg/dL 04/07 Specimen Type: URINE Comment: If Glucose = >500 and Ketones are positive, please alert the Physician. Ordering Provider: JAMILA BARRON Report Released Date/Time: Apr 04, 2024 05:53 PM Reporting Lab: [facility] [place] [facility] [address] [facility] [address] Performing Lab: [facility] [place] [facility] [address] [facility] [address] [facility] [place] [facility] URINALYS IS CLEAN CATCH BILIRUBIN. TOTAL [PRESENCE] IN URINE NEGATIVE mg/dL 04/07 Specimen Type: URINE Comment: If Glucose = >500 and Ketones are positive, please alert the Physician. Ordering Provider: JAMILA BARRON Report Released Date/Time: Apr 04, 2024 05:53 PM Reporting Lab: [facility] [place] [facility] [address] [facility] [address] Performing Lab: [facility] [facility] [address] [facility] [address] [facility] [place] [facility] URINALYS IS CLEAN CATCH SPECIFIC GRAVITY OF URINE BY REFRACTOME TRY 1.024 1.016 - 1.022 04/07 H Specimen Type: URINE Comment: If Glucose = >500 and Ketones are positive, please alert the Physician. Ordering Provider: JAMILA BARRON Report Released Date/Time: Apr 04, 2024 05:53 PM Reporting Lab: [facility] [place] [facility] [address] [facility] [address] Performing Lab: [facility] [place] [facility] [address] [facility] [address] [facility] URINALYS IS CLEAN CATCH PH OF URINE BY TEST STRIP 7.0 5.0 - 9.0 04/07 Specimen Type: URINE Comment: If Glucose = >500 and Ketones are positive, please alert the Physician. Ordering Provider: JAMILA BARRON Report Released Date/Time: Apr 04, 2024 05:53 PM Reporting Lab: [facility] [address] [facility] [address] Performing Lab: [facility] [address] [facility] [facility] [address] [facility] URINALYS IS CLEAN CATCH UROBILINOG EN [MASS/VOLU ME] IN URINE BY TEST STRIP Normalmg /dL <2.0 - 2.0 04/07 Specimen Type: URINE Comment: If Glucose = >500 and Ketones are positive, please alert the Physician. Ordering Provider: JAMILA BARRON Report Released Date/Time: Apr 04, 2024 05:53 PM Reporting Lab: [facility] [address] [facility] [address] Performing Lab: [facility] [address] [facility] [facility] [address] [facility] URINALYS IS CLEAN CATCH LEUKOCYTE ESTERASE [PRESENCE] IN URINE BY TEST STRIP NEGATIVE 04/07 Specimen Type: URINE Comment: If Glucose = >500 and Ketones are positive, please alert the Physician. Ordering Provider: JAMILA BARRON Report Released Date/Time: Apr 04, 2024 05:53 PM Reporting Lab: [facility] [address] [facility] [address] Performing Lab: [facility] [address] [facility] [address] [facility] BASIC METABOLI C PANEL (fasting ) UREA NITROGEN [MASS/VOLU ME] IN SERUM OR PLASMA 16 mg/dL 7 - 25 10/07 Specimen Type: SERUM No comment entered. Ordering Provider: JAMILA BARRON Report Released Date/Time: Oct 05, 2023 11:58 PM Reporting Lab: [facility] [place] [facility] [address] [facility] [address] Performing Lab: [facility] [place] [facility] [address] [facility] [address] [facility] [place] [facility] BASIC METABOLI C PANEL (fasting ) GLUCOSE [MASS/VOLU ME] IN SERUM OR PLASMA 102 mg/dL 65 - 100 10/07 H Specimen Type: SERUM No comment entered. Ordering Provider: JAMILA BARRON Report Released Date/Time: Oct 05, 2023 11:58 PM Reporting Lab: [facility] [place] [facility] [address] [facility] [address] Performing Lab: [facility] [facility] [address] [facility] [address] [facility] [place] [facility] BASIC METABOLI C PANEL (fasting ) SODIUM [MOLES/VOL UME] IN SERUM OR PLASMA 143 mmol/L 135 - 145 10/07 Specimen Type: SERUM No comment entered. Ordering Provider: JAMILA BARRON Report Released Date/Time: Oct 05, 2023 11:58 PM Reporting Lab: [facility] [place] [facility] [address] [facility] [address] Performing Lab: [facility] [place] [facility] [address] [facility] [address] [facility] [place] [facility] BASIC METABOLI C PANEL (fasting ) POTASSIUM [MOLES/VOL UME] IN SERUM OR PLASMA 4.4 mmol/L 3.5 - 5.0 10/07 Specimen Type: SERUM No comment entered. Ordering Provider: JAMILA BARRON Report Released Date/Time: Oct 05, 2023 11:58 PM Reporting Lab: [facility] [facility] [address] [facility] [address] Performing Lab: [facility] [facility] [address] [facility] [address] [facility] [place] [facility] BASIC METABOLI C PANEL (fasting ) CHLORIDE [MOLES/VOL UME] IN SERUM OR PLASMA 106 mmol/L 100 - 110 10/07 Specimen Type: SERUM No comment entered. Ordering Provider: JAMILA BARRON Report Released Date/Time: Oct 05, 2023 11:58 PM Reporting Lab: [facility] [address] [address] Performing Lab: [facility] [address] [address] [facility] BASIC METABOLI C PANEL (fasting ) CARBON DIOXIDE, TOTAL [MOLES/VOL UME] IN SERUM OR PLASMA 26 meq/L 20 - 30 10/07 Specimen Type: SERUM No comment entered. Ordering Provider: JAMILA BARRON Report Released Date/Time: Oct 05, 2023 11:58 PM Reporting Lab: [facility] [address] [address] Performing Lab: [facility] [address] [facility] TRN [facility]USE [facility] BASIC METABOLI C PANEL (fasting ) CREATININE [MASS/VOLU ME] IN SERUM OR PLASMA 1.01 mg/dL 0.50 - 1.40 10/07 Specimen Type: SERUM No comment entered. Ordering Provider: JAMILA BARRON Report Released Date/Time: Oct 05, 2023 11:58 PM Reporting Lab: [facility] [address] Performing Lab: [facility] [address] [facility] BASIC METABOLI C PANEL (fasting ) GLOMERULAR FILTRATION RATE/1.73 SQ M.PREDICTE D [VOLUME RATE/AREA] IN SERUM, PLASMA OR BLOOD BY CREATININE -BASED FORMULA (CKD-EPI 2020) 73 mL/min 60 10/07 Specimen Type: SERUM No comment entered. Ordering Provider: JAMILA BARRON Report Released Date/Time: Oct 05, 2023 11:58 PM Reporting Lab: [facility] [address] Performing Lab: [facility] [place] [facility] [address] [facility] [address] [facility] [place] [facility] CBC AND DIFF (AUTO) LEUKOCYTES [#/VOLUME] IN BLOOD BY AUTOMATED COUNT 7.99 10*3/uL 4.50 - 11.00 10/07 Specimen Type: BLOOD No comment entered. Ordering Provider: JAMILA BARRON Report Released Date/Time: Oct 05, 2023 11:58 PM Reporting Lab: [facility] [facility] [address] [facility] [address] Performing Lab: [facility] [facility] [address] [facility] [address] [facility] [facility] CBC AND DIFF (AUTO) ERYTHROCYT ES [#/VOLUME] IN BLOOD BY AUTOMATED COUNT 4.47 10*6/uL 4.23 - 5.66 10/07 Specimen Type: BLOOD No comment entered. Ordering Provider: JAMILA BARRON Report Released Date/Time: Oct 05, 2023 11:58 PM Reporting Lab: [facility] [place] [facility] [address] [facility] [address] Performing Lab: [facility] [facility] [address] [facility] [address] [facility] [place] [facility] CBC AND DIFF (AUTO) HEMOGLOBIN [MASS/VOLU ME] IN BLOOD 14.6 g/dL 12.8 - 17 10/07 Specimen Type: BLOOD No comment entered. Ordering Provider: JAMILA BARRON Report Released Date/Time: Oct 05, 2023 11:58 PM Reporting Lab: [facility] [place] [facility] [address] [facility] [address] Performing Lab: [facility] [facility] [address] [facility] [address] [facility] [place] [facility] CBC AND DIFF (AUTO) HEMATOCRIT [VOLUME FRACTION] OF BLOOD BY AUTOMATED COUNT 42.7 39.2 - 50.4 10/07 Specimen Type: BLOOD No comment entered. Ordering Provider: JAMILA BARRON Report Released Date/Time: Oct 05, 2023 11:58 PM Reporting Lab: [facility] [facility] [address] [facility] [address] Performing Lab: [facility] [facility] [address] [facility] [address] [facility] [place] [facility] CBC AND DIFF (AUTO) MCV [ENTITIC VOLUME] BY AUTOMATED COUNT 95.5 fL 82 - 99 10/07 Specimen Type: BLOOD No comment entered. Ordering Provider: JAMILA BARRON Report Released Date/Time: Oct 05, 2023 11:58 PM Reporting Lab: [facility] [facility] [address] [facility] [address] Performing Lab: [facility] [facility] [address] [facility] [address] [facility] [facility] CBC AND DIFF (AUTO) MCHC [MASS/VOLU ME] BY AUTOMATED COUNT 34.2 g/dL 30.8 - 35.1 10/07 Specimen Type: BLOOD No comment entered. Ordering Provider: JAMILA BARRON Report Released Date/Time: Oct 05, 2023 11:58 PM Reporting Lab: [facility] [place] [facility] [address] [facility] [address] Performing Lab: [facility] [facility] [address] [facility] [address] [facility] [place] [facility] CBC AND DIFF (AUTO) PLATELETS [#/VOLUME] IN BLOOD BY AUTOMATED COUNT 126 10*3/uL 140 - 360 10/07 L Specimen Type: BLOOD No comment entered. Ordering Provider: JAMILA BARRON Report Released Date/Time: Oct 05, 2023 11:58 PM Reporting Lab: [facility] [place] [facility] [address] [facility] [address] Performing Lab: [facility] [facility] [address] [facility] [address] [facility] [place] [facility] CBC AND DIFF (AUTO) ERYTHROCYT E DISTRIBUTI ON WIDTH [RATIO] BY AUTOMATED COUNT 12.9 12.0 - 16.0 10/07 Specimen Type: BLOOD No comment entered. Ordering Provider: JAMILA BARRON Report Released Date/Time: Oct 05, 2023 11:58 PM Reporting Lab: [facility] [place] [facility] [address] [facility] [address] Performing Lab: [facility] [place] [facility] [address] [facility] [address] [facility] [place] [facility] CBC AND DIFF (AUTO) MONOCYTES [#/VOLUME] IN BLOOD BY AUTOMATED COUNT 0.79 10*3/uL 0.30 - 1.10 10/07 Specimen Type: BLOOD No comment entered. Ordering Provider: JAMILA BARRON Report Released Date/Time: Oct 05, 2023 11:58 PM Reporting Lab: [facility] [place] [facility] [address] [facility] [address] Performing Lab: [facility] [place] [facility] [address] [facility] [address] [facility] [place] [facility] CBC AND DIFF (AUTO) MCH [ENTITIC MASS] BY AUTOMATED COUNT 32.7 pg 26.2 - 32.6 10/07 H Specimen Type: BLOOD No comment entered. Ordering Provider: JAMILA BARRON Report Released Date/Time: Oct 05, 2023 11:58 PM Reporting Lab: [facility] [place] [facility] [address] [facility] [address] Performing Lab: [facility] [place] [facility] [address] [facility] [address] [facility] [place] [facility] CBC AND DIFF (AUTO) NEUTROPHIL S/100 LEUKOCYTES IN BLOOD BY AUTOMATED COUNT 54.5 43.7 - 75.8 10/07 Specimen Type: BLOOD No comment entered. Ordering Provider: JAMILA BARRON Report Released Date/Time: Oct 05, 2023 11:58 PM Reporting Lab: [facility] [place] [facility] [address] [facility] [address] Performing Lab: [facility] [place] [facility] [address] [facility] [address] [facility] [place] [facility] CBC AND DIFF (AUTO) LYMPHOCYTE S/100 LEUKOCYTES IN BLOOD BY AUTOMATED COUNT 33.3 14.0 - 42.3 10/07 Specimen Type: BLOOD No comment entered. Ordering Provider: JAMILA BARRON Report Released Date/Time: Oct 05, 2023 11:58 PM Reporting Lab: [facility] [place] [facility] [address] [facility] [address] Performing Lab: [facility] [address] [facility] [address] [facility] CBC AND DIFF (AUTO) MONOCYTES/ 100 LEUKOCYTES IN BLOOD BY AUTOMATED COUNT 9.9 5.1 - 13.7 10/07 Specimen Type: BLOOD No comment entered. Ordering Provider: JAMILA BARRON Report Released Date/Time: Oct 05, 2023 11:58 PM Reporting Lab: [facility] [facility] [address] [facility] [address] Performing Lab[facility] [address] [facility] [address] [facility] CBC AND DIFF (AUTO) EOSINOPHIL S/100 LEUKOCYTES IN BLOOD BY AUTOMATED COUNT 1.4 0.4 - 6.8 10/07 Specimen Type: BLOOD No comment entered. Ordering Provider: JAMILA BARRON Report Released Date/Time: Oct 05, 2023 11:58 PM Reporting Lab: [facility] [place] [facility] [address] [facility] [phone] Performing Lab[facility] [facility] [address] [facility] [address] [facility] CBC AND DIFF (AUTO) BASOPHILS/ 100 LEUKOCYTES IN BLOOD BY AUTOMATED COUNT 0.6 0.1 - 2.0 10/07 Specimen Type: BLOOD No comment entered. Ordering Provider: JAMILA BARRON Report Released Date/Time: Oct 05, 2023 11:58 PM Reporting Lab: [facility] [place] [facility] [address] [facility] [address] Performing Lab: [facility] [place] [facility] [address] [facility] [address] [facility] CBC AND DIFF (AUTO) NEUTROPHIL S [#/VOLUME] IN BLOOD BY AUTOMATED COUNT 4.36 10*3/uL 2.20 - 7.60 10/07 Specimen Type: BLOOD No comment entered. Ordering Provider: JAMILA BARRON Report Released Date/Time: Oct 05, 2023 11:58 PM Reporting Lab: [facility] [place] [facility] [address] [facility] [address] Performing Lab: [facility] [place] [facility] [address] [facility] [address] [facility] [place] [facility] CBC AND DIFF (AUTO) LYMPHOCYTE S [#/VOLUME] IN BLOOD BY AUTOMATED COUNT 2.66 10*3/uL 1.00 - 3.20 10/07 Specimen Type: BLOOD No comment entered. Ordering Provider: JAMILA BARRON Report Released Date/Time: Oct 05, 2023 11:58 PM Reporting Lab: [facility] [place] [address] [address] Performing Lab: [facility] [place] [facility] [address] [facility] [address] [facility] [place] [facility] CBC AND DIFF (AUTO) EOSINOPHIL S [#/VOLUME] IN BLOOD BY AUTOMATED COUNT 0.11 10*3/uL 0.03 - 0.44 10/07 Specimen Type: BLOOD No comment entered. Ordering Provider: JAMILA BARRON Report Released Date/Time: Oct 05, 2023 11:58 PM Reporting Lab: [facility] [place] [address] [address] Performing Lab: [facility] [place] [address] [address] [facility] CBC AND DIFF (AUTO) BASOPHILS [#/VOLUME] IN BLOOD BY AUTOMATED COUNT 0.05 10*3/uL 0.01 - 0.13 10/07 Specimen Type: BLOOD No comment entered. Ordering Provider: JAMILA BARRON Report Released Date/Time: Oct 05, 2023 11:58 PM Reporting Lab: [facility] [place] [facility] [address] [facility] [address] Performing Lab: [facility] [place] [facility] [address] [facility] [address] [facility] [place] [facility] CBC AND DIFF (AUTO) IMMATURE GRANULOCYT ES/100 LEUKOCYTES IN BLOOD BY AUTOMATED COUNT 0.3 0.0 - 0.7 10/07 Specimen Type: BLOOD No comment entered. Ordering Provider: JAMILA BARRON Report Released Date/Time: Oct 05, 2023 11:58 PM Reporting Lab: [facility] [place] [facility] [address] [facility] [address] Performing Lab: [facility] [place] [facility] [address] [facility] [address] [facility] CBC AND DIFF (AUTO) IMMATURE GRANULOCYT ES [#/VOLUME] IN BLOOD 0.02 10*3/uL 0.00 - 0.06 10/07 Specimen Type: BLOOD No comment entered. Ordering Provider: JAMILA BARRON Report Released Date/Time: Oct 05, 2023 11:58 PM Reporting Lab: [facility] [place] [facility] [address] [facility] [address] Performing Lab: [facility] [place] [address] [address] [facility] LIVER FUNCTION PROTEIN [MASS/VOLU ME] IN SERUM OR PLASMA 6.6 g/dL 6.0 - 8.3 10/07 Specimen Type: SERUM No comment entered. Ordering Provider: JAMILA BARRON Report Released Date/Time: Oct 05, 2023 11:58 PM Reporting Lab: [facility] [place] [facility] [address] [facility] [address] Performing Lab: [facility] [place] [address] [address] [facility] LIVER FUNCTION ALBUMIN [MASS/VOLU ME] IN SERUM OR PLASMA 3.8 g/dL 3.5 - 5.0 10/07 Specimen Type: SERUM No comment entered. Ordering Provider: JAMILA BARRON Report Released Date/Time: Oct 05, 2023 11:58 PM Reporting Lab: [facility] [place] [facility] [address] [facility] [address] Performing Lab: [facility] [place] [facility] [address] [facility] [address] [facility] [place] LIVER FUNCTION ALKALINE PHOSPHATAS E [ENZYMATIC ACTIVITY/V OLUME] IN SERUM OR PLASMA 103 U/L 40 - 150 10/07 Specimen Type: SERUM No comment entered. Ordering Provider: JAMILA BARRON Report Released Date/Time: Oct 05, 2023 11:58 PM Reporting Lab: [facility] [place] [facility] [address] [facility] [address] Performing Lab: [facility] [place] [facility] [address] [facility] [address] [facility] LIVER FUNCTION ASPARTATE AMINOTRANS FERASE [ENZYMATIC ACTIVITY/V OLUME] IN SERUM OR PLASMA 33 U/L 5 - 34 10/07 Specimen Type: SERUM No comment entered. Ordering Provider: JAMILA BARRON Report Released Date/Time: Oct 05, 2023 11:58 PM Reporting Lab: [facility] [place] [facility] [address] [facility] [address] Performing Lab: [facility] [place] [facility] [address] [facility] [address] [facility] [place] [facility] LIVER FUNCTION ALANINE AMINOTRANS FERASE [ENZYMATIC ACTIVITY/V OLUME] IN SERUM OR PLASMA 29 U/L 10/07 Specimen Type: SERUM No comment entered. Ordering Provider: JAMILA BARRON Report Released Date/Time: Oct 05, 2023 11:58 PM Reporting Lab: [facility] [place] [facility] [address] [facility] [address] Performing Lab: [facility] [place] [facility] [address] [facility] [address] [facility] [place] [facility] LIVER FUNCTION BILIRUBIN. TOTAL [MASS/VOLU ME] IN SERUM OR PLASMA 0.7 mg/dL 0.2 - 1.2 10/07 Specimen Type: SERUM No comment entered. Ordering Provider: JAMILA BARRON Report Released Date/Time: Oct 05, 2023 11:58 PM Reporting Lab: [facility] [place] [facility] [address] [facility] [address] Performing Lab: [facility] [place] [facility] [address] [facility] [address] [facility] [place] LIPID PANEL FASTING CHOLESTERO L [MASS/VOLU ME] IN SERUM OR PLASMA 133 mg/dL 10/07 Specimen Type: SERUM No comment entered. Ordering Provider: JAMILA BARRON Report Released Date/Time: Oct 05, 2023 11:58 PM Reporting Lab: [facility] [place] [address] [address] Performing Lab: [facility] [place] [address] [address] [facility] LIPID PANEL FASTING TRIGLYCERI DE [MASS/VOLU ME] IN SERUM OR PLASMA 98 mg/dL 0 - 150 10/07 Specimen Type: SERUM No comment entered. Ordering Provider: JAMILA BARRON Report Released Date/Time: Oct 05, 2023 11:58 PM Reporting Lab: [facility] [place] [facility] [address] [facility] [address] Performing Lab: [facility] [place] [address] [address] [facility] [place] [facility] LIPID PANEL FASTING CHOLESTERO L IN LDL [MASS/VOLU ME] IN SERUM OR PLASMA BY CALCULARJO N 70 mg/dL 0 - 129 10/07 Specimen Type: SERUM No comment entered. Ordering Provider: JAMILA BARRON Report Released Date/Time: Oct 05, 2023 11:58 PM Reporting Lab: [facility] [place] [facility] [address] [facility] [address] Performing Lab: [facility] [place] [address] [address] [facility] [place] [facility] LIPID PANEL FASTING CHOLESTERO L.TOTAL/CH OLESTEROL IN HDL [MASS RATIO] IN SERUM OR PLASMA 3.1 10/07 Specimen Type: SERUM No comment entered. Ordering Provider: JAMILA BARRON Report Released Date/Time: Oct 05, 2023 11:58 PM Reporting Lab: [facility] [place] [facility] [address] [facility] [facility] [address] Performing Lab: [facility] [place] [facility] [address] [facility] [facility] [address] [facility] [place] LIPID PANEL FASTING CHOLESTERO L IN HDL [MASS/VOLU ME] IN SERUM OR PLASMA 43 mg/dL 40 - 60 10/07 Specimen Type: SERUM No comment entered. Ordering Provider: JAMILA BARRON Report Released Date/Time: Oct 05, 2023 11:58 PM Reporting Lab: [facility] [place] [facility] [address] [facility] [address] Performing Lab: [facility] [place] [facility] [address] [facility] [facility] [address] [facility] [place] [facility] Vital Signs Combined list of inpatient and outpatient Vital Signs from Department of Defense and Veterans Affairs, ranging from 12 months to all on record, depending upon the facility. Vital Sign Value Date Comments Source SYSTOLIC BLOOD PRESSURE 162 04/13/20 24 13:23:12 [facility] [place] [facility] DIASTOLIC BLOOD PRESSURE 70 04/13/ 024 13:23:12 [facility] [place] [facility] PULSE OXIMETRY 96 04/13/2024 13:23:12 [facility] [place] [facility] WEIGHT 193.8 04/13/2024 13:23:12 [facility] [place] [facility] BMI 31 kg/m2 04/13/2024 13:23:12 [facility] PAIN 0 04/13/2024 13:23:12 [facility] [place] [facility] HEIGHT 66 04/13/2024 13:23:12 [facility] [place] [facility] TEMPERATURE 97.8 04/13/2024 13:23:12 [facility] [id number] 04/08 [facility] OFFICE O/P EST SF 10-19 MIN [id number] Diagnos is: ICD-10- CM I10 Essenti al (primar y) hyperte nsion RICO BARRON RD D 04/15 [facility] En[facility] [id number] 04/16 [facility] [place] OFFICE O/P EST LOW 20-29 MIN [id number] Diagnos is: ICD-10- CM 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 RANCHO RODRIGUEZ 04/30 [facility] En[facility] [id number] 06/14 [facility] En[facility] [id number] 06/16 [facility] En[facility] [id number] 06/19 [facility] En[facility] [id number] 06/27 [facility] En[facility] [id number] 07/20 [facility] En[facility] [id number] 10/08 [facility] [place] OFFICE O/P EST LOW 20 MIN [id number] Diagnos is: ICD-10- CM H67.3 Otitis media in disease s classif ied elsewhe re, bilater al RICO BARRON RD D 10/15 [facility] OFF/OP EST MAY X REQ PHY/QHP [id number] Diagnos is: ICD-10- CM Z23 Encount er for immuniz ation RICO BARRON RD D 10/15 [facility] UNLISTED SPEC DERM SVC/PX [id number] Diagnos is: ICD-10- CM Z13.89 Encount er for screeni ng for other disorde r GORDON BEAUCHAMP ICA A 10/23 [facility] OFFICE O/P EST SF 10 MIN [id number] Diagnos is: ICD-10- CM R21 Rash and other nonspec ific skin eruptio sonya PASTORWILEY PH J 10/23 [facility] Out[facility] Encounter [id number] 10/23 [facility] En[facility] [id number] 10/23 [facility] En[facility] [id number] 11/20 [facility] En[facility] [id number] 11/24 [facility] Encounter [id number] 11/27 [facility] En[facility] [id number] 11/28 [facility] Encounter [id number] 11/30 [facility] UNLISTED SPEC DERM SVC/PX [id number] Diagnos is: ICD-10- CM Z13.89 Encount er for screeni ng for other disorde GORDON Davies ICA A 12/04 [facility] En[facility] [id number] 12/04 [facility] Outpatient Encounter [id number] Diagnos is: ICD-10- CM D48.5 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 IRENA BRADFORD 12/04 [facility] Encounter [id number] 12/04 [facility] En[facility] [id number] 12/04 [facility] Encounter [id number] MICHELLE FIGUEROA 12/26 [facility] [place] [id number] Diagnos is: ICD-10- CM 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, bilater al Yossi HARRINGTON E 12/29 [facility] En[facility] [id number] 12/29 [facility] En[facility] [id number] 01/05 [facility] Encounter [id number] 01/09 [facility] Encounter [id number] 01/12 [facility] Encounter [id number] 01/12 [facility] En[facility] [id number] 01/12 [facility] Encounter [id number] IRASEMA MONTILLA 01/13 [facility] Encounter [id number] 01/16 [facility] Encounter [id number] 01/16 [facility] Encounter [id number] 01/19 [facility] Encounter [id number] 01/22 [facility] Encounter [id number] 02/02 [facility] ORTHC/PROS TC MGMT SBSQ ENC [id number] Diagnos is: ICD-10- CM M84.472 A Patholo gical fractur e, left ankle, init encntr for fractur e Thierno HAMPTON 02/02 [facility] En[facility] [id number] 02/10 [facility] Encounter [id number] 02/13 [facility] Encounter [id number] 03/04 [facility] Encounter [id number] 03/04 [facility] OFF/OP EST MAY X REQ PHY/QHP [id number] Diagnos is: ICD-10- CM Z71.89 Other specifi ed grief counselor JOSIE Duval 03/05 [facility] OFFICE O/P EST LOW 20 MIN [id number] Diagnos is: ICD-10- CM L60.1 Onychol PASCUAL Lechuga 03/05 [facility] OFF/OP EST MAY X REQ PHY/QHP [id number] Diagnos is: ICD-10- CM Z48.01 Encount er for change or removal of surgica l wound KAVEH Fox 03/06 [facility] Encounter [id number] 03/18 [facility] OFF/OP CNSLTJ NEW/EST MOD 40 [id number] Diagnos is: ICD-10- CM H90.A31 Mix cndct/s nrl hear loss,un i,r ear w rstrcd hear cntra JOSEPHINE Selby R 03/24 [facility] HEARING AID EXAM BOTH EARS [id number] Diagnos is: ICD-10- CM 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 Diagnos is: ICD-10- CM I10 Essenti al (primar y) hyperte nsion RICO BARRON RD 04/13 [facility] En[facility] [id number] 1.04/14 [facility] Encounter [id number]/17 [facility] Encounter [id number] 04/23 [facility]counter [id number] 1.04/24 [facility] OFFICE O/P EST MOD 30 MIN [id number] Diagnos is: ICD-10- CM 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 RANCHO RODRIGUEZ 04/28 [facility] CONFORMITY EVALUATION [id number] Diagnos is: ICD-10- CM Z46.1 Encount er for fitting and adjustm ent of hearing aid Yossi HARRINGTON 05/05 [facility] Out[facility] Encounter [id number] 05/08 [facility] Encounter [id number]/27 [facility] Encounter [id number] 06/01 [facility] Encounter [id number] 06/03 [facility] Encounter [id number] 06/06 [facility] Encounter [id number]/15 [facility] Encounter [id number]/16 [facility] Encounter [id number] 06/19 [facility] Encounter [id number] 06/25 [facility] Encounter [id number] 06/25 [facility] Out[facility] Encounter [id number] 06/26 [facility] Encounter [id number] 07/02 [facility] Encounter [id number] 07/06 [facility] Encounter [id number] 07/14 [facility] Encounter [id number] 07/14 [facility] Encounter [id number] 07/16 [facility] Encounter [id number] 07/20 [facility] Encounter [id number] 08/06 [facility] Encounter [id number] 08/17 [facility] Encounter [id number] 08/27 [facility] OFFICE O/P EST MOD 30 MIN [id number] Diagnos is: ICD-10- CM 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 Social History Type Response Date Comment Sourc e Tobacco smoking status NHIS VA-TOBACCO FORMER USER 10/16/2023 [facility] [place] [facility] History of tobacco use [place]-TOBACCO QUIT 15 YRS OR MORE 10/16/2023 [facility] [place] [facility] History of tobacco use [facility]-TOBACCO FOR[facility] History of tobacco use NSG NO TOBACCO USE PAST 30 DAYS 03/27/2022 [place] History of tobacco use NSG NO TOBACCO USE PAST 30 DAYS 03/05/2022 [place] History of tobacco use NSG NO TOBACCO USE PAST 30 DAYS 03/02/2022 [place] History of tobacco use [facility]-TOBACCO FOR[facility] History of tobacco use [place]-TOBACCO FORMER USER 05/26/2020 [facility] [place] [facility] History [facility] tobacco use [place]-TOBACCO NEVER USED 05/23/2018 [facility] Plan of Care List of future care activities from Department Veterans Affairs facilities. Additional future care activities may be listed in the Assessment and Plan section. Date/Time Care Activity Care Activity Detail Facili ty 10/28/2024 AMBULATORY - MEDICINE AMBULATORY - MEDICI NE [facility] [place] [facility] 11/11/2024 AMBULATORY - MEDICINE [facility] Advance Directives List of completed, amended, or rescinded Advance Directives on record at Department of Veterans Affairs facilities. An actual copy of the Directive is not included. Date Advance Directive Provider Source 02/19/2022 ADVANCE DIRECTIVE JOCE CASTORENA [facility] [place] [facility] 11/16/2020 ADVANCE DIRECTIVE BYRON BARRON [facility]
--- OUTSIDE RECORDS SUMMARY | 2024-09-22 15:47 | XMS_ITS ---
Author Organization [facility] Address [address] [place] [address] Care Team Providers Care Beveling Machine Operator Name Role Phone Josue Simmons MD Primary Care Provider Unavailab melinda Lyn Lund Unavailable [phone] Allergies Allergen (clinical drug ingredient) Drug/Non Drug [...] Location Date Provider Diagnosis [facility] [address] [place] [address] 04/23/2024 Lyn Lund Plan Of Treatment No Information Progress Notes * Reed MALLORY HDOB:1940 (83 yo M)Acc No.[id number]:04/23/2024 Progress Notes Patient:Reed VANCE Provider:?Lyn Lund DPM :1940???Age:83 Y???Sex:Male Chu e:04/23/2024 Address:[address] [place], [place] [id number] Pcp:Josue Simmons MD Subjective: * Chief Complaints: [...] Lund DPM Date:?2023 Generated for Yokasta palacios/Ilda/Sunil on:?09/22/2024 03:47 PM EDT
--- OUTSIDE RECORDS SUMMARY | 2024-09-22 15:47 | XMS_ITS | Encounter Summary ---
Author Organization [facility] Address [address] [place] [address] Care Team Providers Care Humane Officer Name Role Phone Gerson East Primary Care Provider Cecelia Granados, Pcp Primary Care Provider Adam Rothman MD Primary Care Provider Unava ilable Encounter Details Date Type Department Care Team Description 07/22/2015 Hospital Medical Records [address] [place], [place] [id number] [place] [address] Social History Tobacco Use Types Packs/Day Years [...] on filedocumented in this encounter Care Teams Humane Officer Relationship Specialty Start Date End Date Gerson East PCP - General Internal Medicine 07/15/11 11/14/17 Roberta, Pcp PCP - General Internal Medicine 11/15/17 11/18/17 Adam Noonan MD PCP - General Internal Medicine 11/19/17 documented as of this encounter
--- OUTSIDE RECORDS SUMMARY | 2024-09-22 15:47 | XMS_ITS | Encounter Summary ---
Author Organization [facility] Address [address] [place] [address] Care Team Providers Care Aemt Name Role Phone Adam Noonan MD Primary Care Provider Unava ilable Encounter Details Date Type Department Care Team Description 11/22/2017 Transfer Records Medical Records [address] [place] [id number] Abstract, Provider Social History Tobacco Use Types [...] on filedocumented in this encounter Care Teams Aemt Relationship Specialty Start Date End Date Adam Noonan MD PCP - General Internal Medicine 11/19/17 documented as of this encounter
--- NOTE | 2024-09-22 16:04 | P.BOP_ITS ---
Brief Operative Note Date of Service: 09/22/24 Pre-op diagnosis: Infected hardware left ankle Post-op diagnosis: same Procedure: SHRUTI left ankle and irrigation/debridement Implants: none Surgeon: Jonnathan Chirinos MD Anesthesia: GETA Was an Casing Tester used for this Procedure?: Yes Casing Tester: Demetrius Contreras Estimated blood loss (mL): 50 Tourniquet time (min): 45 IV fluids (mL): 800 Pathology: other Condition: stable Disposition: PACU
[2024-09-22] MEDS: fentaNYL citrate/PF 100 MCG/2 ML VIAL 25 MCG IVPUSH ×4 (16:17→16:55)
[2024-09-22] MEDS: oxyCODONE HCl Immed Release 5 MG TABLET PO (16:58)
[2024-09-22 19:19] LABS: Creatinine Clr Calc Pharmacy 67.7; Estimated Glomerular Filt Rate > 60
[2024-09-22] MEDS: Docusate Sodium 100 MG CAPSULE PO (20:28)
[2024-09-22] MEDS: vancomycin/NS 2,000 MG/500 ML PLAST..BAG 250 MG IV (20:29)
[2024-09-22] MEDS: 0.9 % Sodium Chloride Flush 3 ML SYRINGE IVFLUSH (20:34)
[2024-09-23] VITALS (7 sets, daily range): BP systolic 146–165; BP diastolic 67–74; PULSE 71–93; RESP 16–18; TEMP 36.3–37.1; O2SAT 93–98
[2024-09-23] MEDS: Lactated Ringers 1,000 ML 100 ML IVCONT ×2 (03:54→17:28)
[2024-09-23 06:42] LABS: MANUAL DIFF FLAG NO
[2024-09-23 07:03] LABS: Anion Gap 8 (12-20); Blood Urea Nitrogen 20 mg/dL (9-16); Calcium 8.5 mg/dL (8.4-10.2); Carbon Dioxide 25 mmol/L (22-29); Chloride 109 mmol/L (96-108); Creatinine Clr Calc Pharmacy 72.2; Estimated Glomerular Filt Rate > 60; Glucose Fasting 115 mg/dL (60-99); Potassium 4.3 mmol/L (3.3-5.1); Sodium 138 mmol/L (135-145)
[2024-09-23 07:10] LABS: Basophils Percent Auto 0.2 % (0-2); Hematocrit 32.6 % (42.0-52.0); Hemoglobin 10.9 g/dl (14.0-18.0); Imm Gran Abs Auto 0.06 X10*3/uL (0.00-0.03); Imm Gran Pct Auto 0.5 % (0.0-0.4); Lymphocytes Absolute Auto 1.7 X10*3/uL (1.2-4.9); Lymphocytes Percent Auto 12.7 % (20-40); Mean Corpuscular HGB Conc 33.4 g/dl (31.0-36.0); Mean Corpuscular Hemoglobin 31.9 pg (27.0-33.0); Mean Corpuscular Volume 95.3 fL (80.0-98.0); Mean Platelet Volume 10.1 fL (9.4-12.4); Monocytes Absolute Auto 0.9 X10*3/uL (0.1-1.2); Neutrophils Absolute Auto 10.6 x10*3/uL (2.0-8.3); Neutrophils Percent Auto 79.6 % (45-73); Platelet Count 144 X10*3/uL (160-400); Red Blood Count 3.42 X10*6/uL (4.60-5.80); Red Cell Distribution Width 13.2 % (11.0-16.0); White Blood Count 13.3 X10*3/uL (4.8-10.8)
[2024-09-23 08:12] LABS: Creatinine Clr Calc Pharmacy 68.5; Estimated Glomerular Filt Rate > 60
[2024-09-23] MEDS: Atorvastatin Calcium 80 MG TABLET PO (08:51)
[2024-09-23] MEDS: Aspirin Enteric Coated 81 MG TABLET.DR PO (08:51)
[2024-09-23] MEDS: Ezetimibe 10 MG TABLET PO (08:51)
[2024-09-23] MEDS: Metoprolol Succinate ER 50 MG TAB.ER.24H PO (08:51)
[2024-09-23] MEDS: Docusate Sodium 100 MG CAPSULE PO ×2 (08:51→20:00)
[2024-09-23] MEDS: vancomycin HCL 750 MG in 0.9 % Sodium Chloride 250 ML 265 MG IV ×2 (08:52→20:40)
--- NOTE | 2024-09-23 09:37 | HO.PM.IMCN ---
History of Present Illness Data of Consult Service Date: 09/23/24 Requesting physician: Demetrius Contreras Primary Care Provider: Josue SMITH Reason for consult: medical management s/p I&D ankle 83-year-old male with history of COPD, aortic stenosis s/p TAVR, coronary artery disease s/p CHUNG 04/03/2022, hypertension, hyperlipidemia admitted to Orthopedic surgery due to concerns of septic arthritis of the left ankle s/p left ankle ORIF who is s/p I&D of the left ankle. Consult was placed to hospitalist service for medical management. Of following the procedure patient was hypertensive to 177/76 slight improvement this morning to 159/72. He is currently only taking metoprolol but reports he was previously on hydrochlorothiazide which was discontinued by his remote sensing research scientist. Though on review of the most recent cardiology note, it appears he was given refills for hydrochlorothiazide. He was requiring supplemental O2 postoperatively, but has been weaned and is currently 95-96% on room air. He has no complaints at this time. Reports pain is reasonably controlled. No abdominal pain, nausea, vomiting, diarrhea, shortness of breath, palpitations, or chest pain. He is tolerating p.o. and urinating without difficulty. labs this morning significant for WBC 13.3, H/H 10.9/32.6%. Renal function baseline, electrolyte levels normal. Review of Systems Review of Systems: Yes all other systems are reviewed and are negative [facility], [facility] Medical History Hyperlipidemia HTN (hypertension) CAD (coronary artery disease) Murmur, cardiac Chest pain COPD (chronic obstructive pulmonary disease) Asbestosis Family History Father CAD (coronary artery disease) Mother No problems noted. Surgical History S/P TAVR (transcatheter aortic valve replacement) Stented coronary artery Hx of cardiac catheterization Social History Household Members: None Housing: House Are you a primary care coordinator to a significant other at home: No Do you presently have visiting nurse or other home services: Yes Patient Tobacco Use Status: Former Tobacco user Tobacco use type: Cigarette and Cigar Years Smoked: 14 years old Smoked in Last 30 Days: No e-Cigarette/Vaping Use: Former Use Patient Interested in Nicotine Replacement: No Patient Given Instructions on How to Stop Smoking: No Second Hand Smoke Exposure: No Use of substances other than those prescribed or required for medical reasons: No Currently Displaying Signs/Symptoms of Drug Intoxication Withdrawal: No Any prior treatment program specific to substance use: No Have you been hit, kicked, punched, or otherwise hurt by someone within the past year? If so, by whom?: No Do you feel safe in your current relationship?: No Current Relationship Is there a partner from a previous relationship who is making you feel unsafe now?: No Are you made to feel afraid or neglected: No Are you DNR?: No Advance Directives: No Advance Directives Information Provided: No Do you have a plan to hurt others: No Plan Recently lost weight without trying: No How much weight loss: 24-33 pounds Eating poorly because of decreased appetite: Yes Nutrition screen score: 4 Nutrition Risks: No Nutritional Risk Poor oral hygiene: No Meds Allergies Allergy/AdvReac Type Severity Reaction Status Date / Time niacin Allergy Severe Upset Verified 09/18/24 14:10 Stomach procaine [From Novocain] Allergy Severe I GET Verified 09/18/24 14:10 MEAN simvastatin AdvReac Severe myopathy Verified 09/18/24 14:10 Active Medications: Current Medications Acetaminophen (Acetaminophen 325 Mg Tablet) 650 mg PO Q6H PRN PRN Reason: Pain, Mild 1-3,fever,headache Aspirin (Aspirin Enteric Coated 81 Mg Tablet.) 81 mg PO DAILY [facility] Last Admin: 09/23/24 08:51 Dose: 81 mg Atorvastatin Calcium (Atorvastatin Calcium 80 Mg Tablet) 80 mg PO DAILY [facility] Last Admin: 09/23/24 08:51 Dose: 80 mg Docusate Sodium (Docusate Sodium 100 Mg Capsule) 100 mg PO BID [facility] Last Admin: 09/23/24 08:51 Dose: 100 mg Ezetimibe (Ezetimibe 10 Mg Tablet) 10 mg PO DAILY [facility] Last Admin: 09/23/24 08:51 Dose: 10 mg Hydromorphone HCl (Hydromorphone Hcl 0.5 Mg/0.5 Ml Syringe) 0.25 mg IVPUSH Q4H PRN; Protocol PRN Reason: Pain, Severe (Pain Scale 7-10) Lactated Ringer's (Lr) 1,000 mls @ 100 mls/hr IVCONT .Q10H [facility] Stop: 09/23/24 16:00 Last Admin: 09/23/24 03:54 Dose: 100 mls/hr Vancomycin HCl 750 mg/ Sodium (Chloride) 265 mls @ 265 mls/hr IV Q12H [facility] Last Admin: 09/23/24 08:52 Dose: 265 mls/hr Metoprolol Succinate (Metoprolol Succinate Er 50 Mg Tab.Er.24h) 50 mg PO DAILY [facility]; Protocol Last Admin: 09/23/24 08:51 Dose: 50 mg Ondansetron HCl (Ondansetron Hcl 4 Mg/2 Ml Vial) 4 mg IVPUSH Q8H PRN PRN Reason: Nausea and Vomiting Oxycodone HCl (Oxycodone Hcl Immed Release 5 Mg Tablet) 5 mg PO Q4H PRN PRN Reason: Pain, Moderate(Pain Scale 4-6) Pharmacy Consult (Consult Rx Vancomycin Dosing) 1 each MISCELLANE DAILY PRN PRN Reason: Consult order Sodium Chloride (0.9 % Sodium Chloride Flush 3 Ml Syringe) 3 ml IVFLUSH QSHIFT [facility] Last Admin: 09/23/24 08:56 Dose: Not Given Home Medications ?Medication ?Instructions ?Recorded ?Confirmed ?Last Taken ?Type acetaminophen 325 mg tablet 650 mg PO Q6H PRN pain 09/22/24 09/22/24 Unknown History atorvastatin 80 mg tablet 80 mg PO DAILY 09/22/24 09/22/24 09/21/24 History Physical Exam Vital Signs and Narrative: Vital Signs: Last Vital Signs Temp 98.5 F 09/23/24 07:35 Pulse 83 09/23/24 07:35 Resp 16 09/23/24 07:35 BP 159/72 H 09/23/24 07:35 Pulse Ox 98 09/23/24 07:35 O2 Del Method Nasal Cannula 09/23/24 07:35 O2 Flow Rate 2 09/23/24 07:35 BMI result Body Mass Index 28.2 Constitutional - Awake and Alert, No apparent distress Eyes - PERRLA, EOMI Cardiovascular - S1S2, RRR, No edema Respiratory - Normal lung expansion, Normal respiratory effort, No respiratory distress, CTA bilaterally Gastrointestinal - NT / ND; +BS; No rebound or guarding Extremities - no calf tenderness bilaterally, no swelling Skin - Warm/Dry Neurological - Alert & oriented x3 Psychological - Appropriate affect Results Labs 09/23/24 05:43 09/23/24 07:20 Labs: Laboratory Results - last 24 hr 09/22/24 09/23/24 09/23/24 18:27 05:43 07:20 MCV 95.3 MCH 31.9 MCHC 33.4 RDW 13.2 Plt Count 144 L D MPV 10.1 Immature Gran % (Auto) 0.5 H Neut % (Auto) 79.6 H Lymph % (Auto) 12.7 L [place] % (Auto) 7.0 Eos % (Auto) 0.0 Baso % (Auto) 0.2 Lymph # (Auto) 1.7 [place] # (Auto) 0.9 Eos # (Auto) 0.0 Baso # (Auto) 0.0 Abs Immat Gran (auto) 0.06 H Absolute Neuts (auto) 10.6 H Absolute Nucleated RBC 0.000 Nucleated RBC % (auto) 0.0 Anion Gap 8 L Estim Creat Clear Calc 67.7 72.2 68.5 Estimated GFR > 60 > 60 > 60 Fasting Glucose 115 H Calcium 8.5 D Assessment and Plan (1) Septic arthritis of ankle: Status: Acute Plan 83-year-old male with history of COPD, aortic stenosis s/p TAVR, coronary artery disease s/p CHUNG 04/03/2022, hypertension, hyperlipidemia admitted to Orthopedic surgery due to concerns of septic arthritis of the left ankle s/p left ankle ORIF who is s/p I&D of the left ankle. Consult was placed to hospitalist service for medical management. #Infected hardware L ankle s/p ORIF 01/2024 who is s/p irrigation and debridement L ankle POD 1 -plan per ortho surgery -Continue vancomycin. Follow cultures which remain pending -Pain management per ortho surgery # SIRS -possibly related to infection versus reactive following procedure -recommend rechecking in the morning. -Mild tachycardia in maximo 90s elderly caregiver likely r/t missed dose of metoprolol last night -no sepsis #COPD -no exacerbation -wean from supplemental O2 with goal oximetry around 90-92% -albuterol prn # s/p TAVR - not on AC, bioprosthetic valve -resume asa per ortho surgery #CAD/HLD -no anginal chest pain -continue bb, statin, zetia. resume asa per ortho surgery #HTN -uncontrolled. Resume hctz. Will need refills on discharge which have been ordered. He is advised to check his blood pressures at home -continue metoprolol Thank you for allowing me to participate in this consult. Signing off at this time. Please do not hesitate to call for further questions.
--- NOTE | 2024-09-23 12:18 | P.PICC_ITS ---
PICC Line Insertion NPICC INSERTION Diagnosis: INFECTED HARDWARE/SEPTIC ARTHRITIS LEFT ANKLE Indication: SENIOR CARE ANTIBX Pertinent Labs: REVIEWED Technique: Following informed consent including risks, benefits and alternatives and using sterile technique including cap and mask, sterile gown, glove and drape, the RIGHT arm was prepped and draped in the usual sterile fashion of full barrier technique with CHG. Following completion of [place] Protocol the skin and soft tissues were anesthetized with 1% Lidocaine plain. Using ultrasound guidance, RIGHT BASILIC vein access was obtained. Over an 0.018 wire through peel-away sheath, a 4FR SINGLE LUMEN PASV PICC line was positioned. Catheter length is 38CM internal length, 0CM external length, for a total trimmed length of 38CM. The procedure was performed in RM 272. Tip verification was performed by Brian Alfredo with Sherlock 3CG. Tip located in SVC. Ultrasound was used to document vein patency and for needle entry. A formal ultrasound picture and cardiac rhythm strip was recorded. [facility] [employer] has released the line for use and it is currently dressed with a StatLock, Tegaderm, and CHG disc. Verification has been performed for blood return and line patency. Pt reported allergy to Procaine 8-10years ago during Dental procedure and reported he developed a ileus. Called pharmacy and spoke with Brandon Escobedo (Pharmacist)-cleared to use lidocaine. Tona Verduzco Rn also aware of this . Arm Circumference: 34CM Equipment: Bard PowerPicc catheter with Sherlock 3CG Tip Catheter Type: 4FR SINGLE LUMEN PASV PICC Line Lot #: [id number]
[2024-09-23] MEDS: hydroCHLOROthiazide 25 MG TABLET PO (12:35)
--- NOTE | 2024-09-23 15:02 | MHC.CM.PN ---
IMM 09/23/24 DX Septic Arthritis L ankle. S/P Debridement in OR 09/22/24 Lives by himself. He is [facility]. Per [facility] [employer], Cora, COLD PRESS OPERATOR services are provided by [facility]. He states that he has a HCP. A VM was left for dtr Flory. A call back and copy of HCP have been requested. DP home with infusion services and [facility]. Patient may need assist with transportation home.
[2024-09-23] MEDS: 0.9 % Sodium Chloride Flush 10 ML SYRINGE 5 ML IVFLUSH ×2 (16:15→20:04)
--- NOTE | 2024-09-23 16:32 | P.CNID_ITS ---
History of Present Illness Data of Consult Service Date: 09/23/24 Requesting physician: Demetrius Contreras Primary Care Provider: Josue Simmons [facility] Reason for consult: left ankle sepsis concern He presents with left ankle pain and swelling. He has left ORIF 01/18/2024 and has had worsening pain last month with drainage. He has MRI fluid around tibiotalar area. I discussed with Dr Chirinos and there is infection tracking deep into bone when he took patient for debridement and cultures. He has no fever or chills. Review of Systems 2 Review of Systems: Yes all other systems are reviewed and are negative [facility] Past Medical History Medical History Hyperlipidemia HTN (hypertension) CAD (coronary artery disease) Murmur, cardiac Chest pain COPD (chronic obstructive pulmonary disease) Asbestosis Family History Family History Father CAD (coronary artery disease) Mother No problems noted. Family history: reviewed and not pertinent Surgical History Surgical History S/P TAVR (transcatheter aortic valve replacement) Stented coronary artery Hx of cardiac catheterization Social History Social History Household Members: None Housing: House Are you a primary home care manager to a significant other at home: No Do you presently have visiting nurse or other home services: Yes Patient Tobacco Use Status: Former Tobacco user Tobacco use type: Cigarette and Cigar Years Smoked: 14 years old Smoked in Last 30 Days: No e-Cigarette/Vaping Use: Former Use Patient Interested in Nicotine Replacement: No Patient Given Instructions on How to Stop Smoking: No Second Hand Smoke Exposure: No Use of substances other than those prescribed or required for medical reasons: No Currently Displaying Signs/Symptoms of Drug Intoxication Withdrawal: No Any prior treatment program specific to substance use: No Have you been hit, kicked, punched, or otherwise hurt by someone within the past year? If so, by whom?: No Do you feel safe in your current relationship?: No Current Relationship Is there a partner from a previous relationship who is making you feel unsafe now?: No Are you made to feel afraid or neglected: No Are you DNR?: No Advance Directives: No Advance Directives Information Provided: No Do you have a plan to hurt others: No Plan Recently lost weight without trying: No How much weight loss: 24-33 pounds Eating poorly because of decreased appetite: Yes Nutrition screen score: 4 Nutrition Risks: No Nutritional Risk Poor oral hygiene: No service: Yes Meds Allergies Allergy/AdvReac Type Severity Reaction Status Date / Time niacin Allergy Severe Upset Verified 09/18/24 14:10 Stomach procaine [From Novocain] Allergy Severe I GET Verified 09/18/24 14:10 MEAN simvastatin AdvReac Severe myopathy Verified 09/18/24 14:10 Active Medications: Current Medications Acetaminophen (Acetaminophen 325 Mg Tablet) 650 mg PO Q6H PRN PRN Reason: Pain, Mild 1-3,fever,headache Aspirin (Aspirin Enteric Coated 81 Mg Tablet.) 81 mg PO DAILY [facility] Last Admin: 09/23/24 08:51 Dose: 81 mg Atorvastatin Calcium (Atorvastatin Calcium 80 Mg Tablet) 80 mg PO DAILY [facility] Last Admin: 09/23/24 08:51 Dose: 80 mg Docusate Sodium (Docusate Sodium 100 Mg Capsule) 100 mg PO BID [facility] Last Admin: 09/23/24 08:51 Dose: 100 mg Ezetimibe (Ezetimibe 10 Mg Tablet) 10 mg PO DAILY [facility] Last Admin: 09/23/24 08:51 Dose: 10 mg Hydrochlorothiazide (Hydrochlorothiazide 25 Mg Tablet) 25 mg PO DAILY [facility]; Protocol Last Admin: 09/23/24 12:35 Dose: 25 mg Hydromorphone HCl (Hydromorphone Hcl 0.5 Mg/0.5 Ml Syringe) 0.25 mg IVPUSH Q4H PRN; Protocol PRN Reason: Pain, Severe (Pain Scale 7-10) Vancomycin HCl 750 mg/ Sodium (Chloride) 265 mls @ 265 mls/hr IV Q12H [facility] Last Infusion: 09/23/24 09:56 Dose: Infused Metoprolol Succinate (Metoprolol Succinate Er 50 Mg Tab.Er.24h) 50 mg PO DAILY [facility]; Protocol Last Admin: 09/23/24 08:51 Dose: 50 mg Ondansetron HCl (Ondansetron Hcl 4 Mg/2 Ml Vial) 4 mg IVPUSH Q8H PRN PRN Reason: Nausea and Vomiting Oxycodone HCl (Oxycodone Hcl Immed Release 5 Mg Tablet) 5 mg PO Q4H PRN PRN Reason: Pain, Moderate(Pain Scale 4-6) Pharmacy Consult (Consult Rx Vancomycin Dosing) 1 each MISCELLANE DAILY PRN PRN Reason: Consult order Sodium Chloride (0.9 % Sodium Chloride Flush 3 Ml Syringe) 3 ml IVFLUSH QSHIFT [facility] Last Admin: 09/23/24 15:53 Dose: Not Given Sodium Chloride (0.9 % Sodium Chloride Flush 10 Ml Syringe) 5 ml IVFLUSH TID [facility] Last Admin: 09/23/24 16:15 Dose: 5 ml Home Medications ?Medication ?Instructions ?Recorded ?Confirmed ?Last Taken ?Type acetaminophen 325 mg tablet 650 mg PO Q6H PRN pain 09/22/24 09/22/24 Unknown History atorvastatin 80 mg tablet 80 mg PO DAILY 09/22/24 09/22/24 09/21/24 History Physical Exam 2 Vital Signs: Vital Signs: Last Vital Signs Temp 98.8 F 09/23/24 15:47 Pulse 84 09/23/24 15:47 Resp 17 09/23/24 15:47 BP 150/69 H 09/23/24 15:47 Pulse Ox 95 09/23/24 15:47 O2 Del Method Room Air 09/23/24 15:47 O2 Flow Rate 2 09/23/24 07:35 BMI result Body Mass Index 28.2 Const: General: cooperative HEENT: Head: Yes normal to inspection Face and sinus: Yes normal facial exam Mouth: Normal oral and palatal mucosa present Teeth and gingiva: d entition normal Eyes: General: appearance normal, both eyes and all related structures P upils: Equal, round and reactive pupils present Resp: Effort & Inspection: normal respiratory effort Cardio: Rate: regular rate Rhythm: regular rhythm GI: Palpation (GI): Soft to palpation and nontender : General: Yes no CVA tenderness Back/Spine/Pelvis: Back: no CVA tenderness Skin: General skin exam: no rashes or lesions noted Neuro: General: moves all extremities Cranial nerves: Yes Equal, round and reactive pupils present Extrem: Other: wrapped left amle; General: Yes normal to inspection Psych: Appearance: grossly normal Results Labs 09/23/24 05:43 09/23/24 07:20 Labs: Short CBC 09/23/24 Range/Units 05:43 WBC 13.3 H (4.8-10.8) X10*3/uL Hgb 10.9 L (14.0-18.0) g/dl Hct 32.6 L (42.0-52.0) % Plt Count 144 L D (160-400) X10*3/uL BMP 09/22/24 09/23/24 09/23/24 18:27 05:43 07:20 Sodium 138 Potassium 4.3 D Chloride 109 H Carbon Dioxide 25 BUN 20 H Creatinine 0.79 0.74 0.78 Calcium 8.5 D Microbiology Microbiology Results: Microbiology 09/22/24 15:08 Ankle Left Gram Stain - Final 09/22/24 15:08 Ankle Left Routine Culture - Preliminary Culture in progress. 09/22/24 15:13 Ankle Left Gram Stain - Final 09/22/24 15:13 Ankle Left Routine Culture - Preliminary Culture in progress. Assessment and Plan (1) Septic arthritis of ankle: Status: Acute (2) Ankle fracture, lateral malleolus, closed: Qualifiers: Encounter type: initial encounter Fracture alignment: displaced L aterality: left Qualified Code(s): S82.62XA - Displaced fracture of lateral malleolus of left fibula, initial encounter for closed fracture Status: Acute Plan Probably staph or strep He is on Vancomycin Await culture or joint PCR. IV Vancomycin with weekly troughs and creatinine.duration possible 3-6 weeks. Management of hardware per Orthopedics May need suppressive po medication after IV as well.
--- NOTE | 2024-09-23 16:45 | PM.PNORT ---
Subjective Subjective Date of Service: 09/23/24 Interval history: Postop day 1 status post I and D and removal of hardware of left ankle Patient resting comfortably in bed today PICC line placed No acute events overnight No other acute complaints or concerns at this time Physical Exam Vital Signs: Vital Signs: Last Vital Signs Temp 98.8 F 09/23/24 15:47 Pulse 84 09/23/24 15:47 Resp 17 09/23/24 15:47 BP 150/69 H 09/23/24 15:47 Pulse Ox 95 09/23/24 15:47 O2 Del Method Room Air 09/23/24 15:47 O2 Flow Rate 2 09/23/24 07:35 BMI result Body Mass Index 28.2 Extrem: Other: Dressing on patient's left ankle noted to be bloody Minimal edema, no erythema or ecchymosis noted Loosely approximated incision site noted on the lateral ankle Open small incision site noted on the medial ankle with packing in place Patient reports tenderness to palpation about the left ankle Distal sensation intact Capillary refill brisk Procedures Date of Service Date of Service: 09/23/24 Progress Note: A&P Assessment and plan (1) 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: Status: Acute Plan 1. Status post I and D and hardware removal of left ankle DOS 09/22/2024 Patient was seen and evaluated with Dr. Chirinos, and a collaborative treatment plan was formed: Dressing changed today, switched from vacuum dressing to Aquacel Patient placed again into blue boot Patient on vancomycin currently, awaiting cultures and sensitivities for final antibiotic recommendations ID consult pending Packing to be pulled tomorrow Patient may weightbear as tolerated with a walker in the blue boot while in the hospital Patient was amenable to this plan Time Spent With Patient Time: Total time managing care of this patient today ____ minutes. Quality Stroke Does the patient have a stroke diagnosis?: No VTE Prior VTE?: No VTE Risk Level:: Surgical - high VTE Device Contraindication: N/A - Device Ordered VTE Drug Contraindication: N/A - Med Ordered
[2024-09-23] MEDS: Acetaminophen 325 MG TABLET 650 MG PO (20:00)
[2024-09-23] MEDS: 0.9 % Sodium Chloride Flush 3 ML SYRINGE IVFLUSH (20:04)
[2024-09-24 03:15] VITALS: BP 167/77; PULSE 69; RESP 18; TEMP 36.6; O2SAT 93
[2024-09-24 05:45] LABS: MANUAL DIFF FLAG NO
[2024-09-24 05:52] LABS: Basophils Percent Auto 0.4 % (0-2); Eosinophils Absolute Auto 0.3 X10*3/uL (0.0-0.4); Eosinophils Percent Auto 2.9 % (0-4); Hemoglobin 10.1 g/dl (14.0-18.0); Imm Gran Abs Auto 0.03 X10*3/uL (0.00-0.03); Imm Gran Pct Auto 0.3 % (0.0-0.4); Lymphocytes Absolute Auto 2.7 X10*3/uL (1.2-4.9); Lymphocytes Percent Auto 28.8 % (20-40); Mean Corpuscular HGB Conc 33.7 g/dl (31.0-36.0); Mean Corpuscular Hemoglobin 31.9 pg (27.0-33.0); Mean Corpuscular Volume 94.6 fL (80.0-98.0); Monocytes Absolute Auto 1.2 X10*3/uL (0.1-1.2); Monocytes Percent Auto 13.5 % (2-11); Neutrophils Percent Auto 54.1 % (45-73); Platelet Count 117 X10*3/uL (160-400); Red Blood Count 3.17 X10*6/uL (4.60-5.80); Red Cell Distribution Width 13.4 % (11.0-16.0); White Blood Count 9.2 X10*3/uL (4.8-10.8)
[2024-09-24 06:05] LABS: Anion Gap 10 (12-20); Blood Urea Nitrogen 17 mg/dL (9-16); Calcium 8.3 mg/dL (8.4-10.2); Carbon Dioxide 26 mmol/L (22-29); Chloride 108 mmol/L (96-108); Creatinine Clr Calc Pharmacy 74.3; Estimated Glomerular Filt Rate > 60; Glucose Fasting 90 mg/dL (60-99); Potassium 3.7 mmol/L (3.3-5.1); Sodium 140 mmol/L (135-145)
--- NOTE | 2024-09-24 07:31 | PM.PNORT ---
Subjective Subjective Date of Service: 09/24/24 Interval history: Postop day 2 status post I and D and removal of hardware of left ankle Patient resting comfortably in bed today PICC line placed No acute events overnight No other acute complaints or concerns at this time Physical Exam Vital Signs: Vital Signs: Last Vital Signs Temp 97.8 F 09/24/24 03:15 Pulse 69 09/24/24 03:15 Resp 18 09/24/24 03:15 BP 167/77 H 09/24/24 03:15 Pulse Ox 93 09/24/24 03:15 O2 Del Method Room Air 09/24/24 03:15 O2 Flow Rate 2 09/23/24 07:35 BMI result Body Mass Index 28.2 Extrem: Other: No isabel blood noted on ISAÍAS this morning Minimal edema, no erythema or ecchymosis noted Aquacel on lateral ankle C/D/I Open small incision site noted on the medial ankle with packing in place Patient reports tenderness to palpation about the left ankle Distal sensation intact Capillary refill brisk Procedures Date of Service Date of Service: 09/24/24 Progress Note: A&P Assessment and plan (1) 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: Status: Acute Plan 1. Status post I and D and hardware removal of left ankle DOS 09/22/2024 Patient was seen and evaluated with Dr. Chirinos, and a collaborative treatment plan was formed: Dressing changed today, switched from vacuum dressing to Aquacel Patient placed again into blue boot Patient on vancomycin currently, awaiting cultures and sensitivities for final antibiotic recommendations ID consult pending Packing pulled today without issue Patient may weightbear as tolerated with a walker in the blue boot while in the hospital Patient was amenable to this plan Time Spent With Patient Time: Total time managing care of this patient today ____ minutes. Quality Stroke Does the patient have a stroke diagnosis?: No VTE Prior VTE?: No VTE Risk Level:: Surgical - high VTE Device Contraindication: N/A - Device Ordered VTE Drug Contraindication: N/A - Med Ordered
[2024-09-24 07:52] VITALS: BP 158/68; PULSE 76; RESP 18; TEMP 36.4; O2SAT 94
[2024-09-24] MEDS: vancomycin HCL 750 MG in 0.9 % Sodium Chloride 250 ML 265 MG IV (08:08)
[2024-09-24] MEDS: Ezetimibe 10 MG TABLET PO (08:08)
[2024-09-24] MEDS: Docusate Sodium 100 MG CAPSULE PO ×2 (08:08→21:59)
[2024-09-24] MEDS: Aspirin Enteric Coated 81 MG TABLET.DR PO (08:08)
[2024-09-24] MEDS: Atorvastatin Calcium 80 MG TABLET PO (08:08)
[2024-09-24] MEDS: hydroCHLOROthiazide 25 MG TABLET PO (08:08)
[2024-09-24] MEDS: Metoprolol Succinate ER 50 MG TAB.ER.24H PO (08:08)
--- NOTE | 2024-09-24 08:21 | HO.POSTANES ---
Post Anesthesia Evaluation Post Anesthesia Evaluation Date of Service: 09/24/24 Vital Signs: Vital Signs Temp Pulse Resp BP Pulse Ox O2 Del Method 09/24/24 07:52 97.6 F 76 18 158/68 H 94 Room Air 09/24/24 03:15 97.8 F 69 18 167/77 H 93 Room Air 09/23/24 23:21 98.3 F 73 18 165/67 H 93 Room Air Anesthesia: General Mental Status: Awake Pain Control: Satisfactory Nausea/Vomiting: None Hydration: Adequate Anesthesia-Related Issues: No Anes. Related Issues
[2024-09-24] MEDS: 0.9 % Sodium Chloride Flush 3 ML SYRINGE IVFLUSH ×3 (09:13→23:14)
[2024-09-24] MEDS: 0.9 % Sodium Chloride Flush 10 ML SYRINGE 5 ML IVFLUSH ×3 (09:13→21:59)
[2024-09-24 09:31] LABS: Vancomycin Random 36.4 mcg/mL (15-20)
--- NOTE | 2024-09-24 10:12 | PC.NURSE ---
Critical lab result, Vanco of 36.4, reported by DAVID Pollock, NYDIA Contreras Made aware. NYDIA and DAVID made aware lab specimen may have been drawn while AM dose of vanco infusing, STAT Vanco draw for 1900.
--- NOTE | 2024-09-24 11:00 | MHC.CM.PN ---
Final cultures are pending. [facility] notified of [facility]X case. Patient will need auth from [facility] ,once medication finalized. [facility] referred. Clinical update sent to both agencies. DP IV ABX at home. Patient may need assist with transport home.
[2024-09-24 12:00] VITALS: BP 157/70; PULSE 75; RESP 16; TEMP 36.8; O2SAT 95
[2024-09-24 14:59] VITALS: BP 147/67; PULSE 83; RESP 18; TEMP 36.1; O2SAT 95
--- NOTE | 2024-09-24 19:01 | PC.NURSE ---
Pt continues to refuse bed alarm, night nurse made aware. Pt educated on purpose of all high fall risk intverventions including bed and chair alarm.
[2024-09-24 19:38] VITALS: BP 159/65; PULSE 80; RESP 18; TEMP 36.5; O2SAT 94
--- NOTE | 2024-09-24 19:42 | HE.PHANOTE ---
RE: VANCO DOSING Trough came back as 14 mg/L. Looking for a higher trough due to indication of bone infection, so dose is increased to 1000 mg q12h, next trough is scheduled for 09/25/24 @0700.
[2024-09-24] MEDS: vancomycin HCL 1,000 MG in 0.9 % Sodium Chloride 250 ML 270 MG IV (21:59)
--- NOTE | 2024-09-24 22:06 | PC.NURSE ---
Patient re educated on high fall risk precautions, patient continuing to refuse bed alarm. Patient rings appropriately, alert and oriented.
[2024-09-24 23:17] VITALS: BP 157/73; PULSE 75; RESP 18; TEMP 37.2; O2SAT 94
[2024-09-25] VITALS (8 sets, daily range): BP systolic 148–185; BP diastolic 68–81; PULSE 68–85; RESP 18; TEMP 36.1–36.6; O2SAT 95–98
[2024-09-25 08:10] LABS: MANUAL DIFF FLAG NO
[2024-09-25 08:12] LABS: Basophils Absolute Auto 0.1 X10*3/uL (0.0-0.2); Basophils Percent Auto 0.6 % (0-2); Eosinophils Absolute Auto 0.5 X10*3/uL (0.0-0.4); Hematocrit 34.3 % (42.0-52.0); Hemoglobin 11.5 g/dl (14.0-18.0); Imm Gran Abs Auto 0.02 X10*3/uL (0.00-0.03); Imm Gran Pct Auto 0.2 % (0.0-0.4); Lymphocytes Absolute Auto 2.7 X10*3/uL (1.2-4.9); Lymphocytes Percent Auto 32.9 % (20-40); Mean Corpuscular HGB Conc 33.5 g/dl (31.0-36.0); Mean Corpuscular Hemoglobin 31.7 pg (27.0-33.0); Mean Corpuscular Volume 94.5 fL (80.0-98.0); Mean Platelet Volume 9.8 fL (9.4-12.4); Monocytes Absolute Auto 1.1 X10*3/uL (0.1-1.2); Monocytes Percent Auto 12.9 % (2-11); Neutrophils Absolute Auto 3.9 x10*3/uL (2.0-8.3); Neutrophils Percent Auto 47.4 % (45-73); Platelet Count 137 X10*3/uL (160-400); Red Blood Count 3.63 X10*6/uL (4.60-5.80); Red Cell Distribution Width 13.4 % (11.0-16.0); White Blood Count 8.2 X10*3/uL (4.8-10.8)
--- NOTE | 2024-09-25 08:30 | P.DS_ITS ---
DS: Providers Provider Date of Service: 09/25/24 Date of admission: 09/22/24 13:00 Date of discharge: 09/25/24 Primary care physician: Josue Simmons Consults: 09/22/24 17:32 Consult to Hospitalist Routine Comment: Consulting Provider: [facility] Hospitalists Reason For Exam: Ongoing medical management, S/P I&D L ankle Consult to Infectious Diseases Routine Consulting Provider: [facility] Infect[facility] Disease [facility] Reason for consultation: Infected hardware L ankle s/p removal, abx recs Has provider been notified: No DS: Diagnosis Discharge Diagnosis (1) 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: Status: Acute DS: Summary Hospital Course Hospital Course: The patient underwent a successful SHRUTI left ankle with I&D 09/22/[address] Chirinos, was transferred to PACU and then to the floor to recover. During their stay, their vitals were stable, afebrile at 98.0. Labs were unremarkable, H/H 11.5/34.3. POD 1 he was started on Vancomycin 1000mg IV q12 hrs with a goal Vancro trough of 15-20. Physical therapy should include gait training, ROM to tolerance. He is WBAT with stephens boot. Prior to discharge, his dressing was changed, incision clean dry and intact, new dry dressing applied. Perform dry dressing changes daily as needed. The plan is to be discharged home with [facility] services Final cx/sensitivity: Procedure Result Verified Gram stain Final 09/23/24-1027 Gram stain results: 3+ polys 4+ red blood cells No organisms seen R outine Culture Final 09/25/24-0706 Organism 1 Staphylococcus aureus Quantity 1+ S aureus M.I.C. RX --------- --- Clindamycin <=0.25 S Erythromycin <=0.25 S Levofloxacin 0.25 S Oxacillin 0.5 S Penicillin-G >=0.5 R Tetracycline <=1 S Trimethoprim/Sulfamethoxazole <=10 S Plan Six weeks IV daptomycin ( start date 09/25/24) stop atovastatin x6 weeks Picc Line / iv abx Orders: * Routine discharge flushing with 10 mL of normal saline after blood specimen withdrawal, medication administration or post transfusion flushing * weekly bun/cr and results to be fwd to Dr Keita [phone]? Time Attestation Discharge Coordination Time (in mins): 60 Quality: Safe Use of Opioids Does Pt have an Active Cancer Diagnosis on the Problem List?: No Quality: Stroke Does the patient have a stroke diagnosis?: No Physical Exam Vital Signs: Vital Signs: Last Vital Signs Temp 98 F 09/25/24 03:32 Pulse 68 09/25/24 03:32 Resp 18 09/25/24 03:32 BP 160/74 H 09/25/24 03:32 Pulse Ox 95 09/25/24 03:32 O2 Del Method Room Air 09/25/24 03:32 O2 Flow Rate 2 09/23/24 07:35 BMI result Body Mass Index 28.2 DS: Data Data Completed and Pending Labs on day of discharge: Laboratory Results - last 24 hr 09/24/24 09/24/24 09/25/24 08:56 19:05 07:49 WBC 8.2 RBC 3.63 L Hgb 11.5 L Hct 34.3 L MCV 94.5 MCH 31.7 MCHC 33.5 RDW 13.4 Plt Count 137 L MPV 9.8 Immature Gran % (Auto) 0.2 Neut % (Auto) 47.4 Lymph % (Auto) 32.9 [place] % (Auto) 12.9 H Eos % (Auto) 6.0 H Baso % (Auto) 0.6 Lymph # (Auto) 2.7 [place] # (Auto) 1.1 Eos # (Auto) 0.5 H Baso # (Auto) 0.1 Abs Immat Gran (auto) 0.02 Absolute Neuts (auto) 3.9 Absolute Nucleated RBC 0.000 Nucleated RBC % (auto) 0.0 Random Vancomycin 36.4 H* 14.0 L Preliminary micro results at discharge 09/22/24 15:13 Routine Culture - Preliminary Ankle Left Staphylococcus aureus Discharge Plan Discharge Anticipated Discharge Date/Time: 09/25/24 10:19 Patient Disposition: Home Health Service Discharge Diagnosis: lt ankle septic arthritis Referrals: [facility] [Other] - 1 Week (Home infusion Co.) [facility] [Outside] - 1 Week Demetrius Contreras PA [Physician Private Client Advisor] - 1 Week (09/30/24 14:00 [facility] Demetrius Contreras PA ) Brigitte Keita MD [Physician] - 6 Weeks Discharge Medications: New hydrochlorothiazide 25 mg tablet 25 mg PO DAILY Qty: 90 0RF docusate sodium 100 mg Capsule 100 mg PO BID 7 Days Qty: 14 0RF oxycodone 5 mg Tablet 5 mg PO Q4H PRN (Reason: Pain, Moderate(Pain Scale 4-6)) 7 Days Qty: 42 0RF Rx Instructions: Partial Fill upon patient request. daptomycin 500 mg Recon Soln 317.516 mg IV Q24H 42 Days Qty: 10 0RF Continued ezetimibe 10 mg tablet 10 mg PO DAILY Qty: 90 3RF aspirin [Adult Aspirin Regimen] 81 mg tablet,delayed release (DR/EC) 81 mg PO DAILY Qty: 90 3RF metoprolol succinate 50 mg tablet extended release 24 hr 50 mg PO DAILY Qty: 90 3RF acetaminophen 325 mg tablet 650 mg PO Q6H PRN (Reason: pain) (DME) Thigh high compression stocking See Rx Instructions .ROUTE .MEDSUPPLY Qty: 2 0RF Rx Instructions: 30/40mmHG Held atorvastatin 80 mg tablet 80 mg PO DAILY Hold Instructions: Resume on 11/07/24. Discharge Orders: Discharge Order (Routine); Ordered 09/25/24 Ordered By: Fady Vcik Diet: Regular diet Activity on Discharge: Use cane or walker Stand Alone Forms: Patient Portal Discharge page Print Language: Samoan Care Plan Goals: Restore function of joint Health Concerns: Stop Atorvastatin due to Daptomycin interaction Plan of Treatment: WBAT Left ankle with stephens boot IV abx x6 weeks weekly labs PT/Ot wbat, rom, gait training Assessment: as above
[2024-09-25 08:31] LABS: Vancomycin Random 16.8 mcg/mL (15-20)
[2024-09-25 08:33] LABS: Anion Gap 9 (12-20); Blood Urea Nitrogen 14 mg/dL (9-16); Carbon Dioxide 28 mmol/L (22-29); Chloride 107 mmol/L (96-108); Creatinine Clr Calc Pharmacy 75.3; Estimated Glomerular Filt Rate > 60; Glucose Fasting 107 mg/dL (60-99); Potassium 3.6 mmol/L (3.3-5.1); Sodium 140 mmol/L (135-145)
--- NOTE | 2024-09-25 09:20 | HE.PHANOTE ---
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 patient is within therapeutic range. will continue with current dose as patients renal function seems to be stabilizing, will continue to monitor. next level to be pulled 09/26 @0700 to ensure safety and efficacy
[2024-09-25] MEDS: Docusate Sodium 100 MG CAPSULE PO (09:47)
[2024-09-25] MEDS: Atorvastatin Calcium 80 MG TABLET PO (09:47)
[2024-09-25] MEDS: Ezetimibe 10 MG TABLET PO (09:47)
[2024-09-25] MEDS: Aspirin Enteric Coated 81 MG TABLET.DR PO (09:47)
[2024-09-25] MEDS: Metoprolol Succinate ER 50 MG TAB.ER.24H PO (09:47)
[2024-09-25] MEDS: 0.9 % Sodium Chloride Flush 3 ML SYRINGE IVFLUSH (09:48)
[2024-09-25] MEDS: 0.9 % Sodium Chloride Flush 10 ML SYRINGE 5 ML IVFLUSH ×2 (09:48→15:43)
[2024-09-25] MEDS: hydroCHLOROthiazide 25 MG TABLET PO (09:48)
[2024-09-25] MEDS: vancomycin HCL 1,000 MG in 0.9 % Sodium Chloride 250 ML 270 MG IV (09:49)
--- NOTE | 2024-09-25 10:47 | P.F2F_ITS ---
Service Date Service Date: 09/25/24 Encounter Date of encounter: 09/25/24 Reasons for Services Signs and symptoms assessed: Weakness, poor balance, poor gait mechanics Reason for assisted: wound care, administration of IV, SQ, or IM injection, postoperative assessment and/or care, medication management and medication treatment Reason for physical therapy: home safety and mobility, therapeutic exercises, restore joint function, gait/transfer training, ADL training and energy conservation Reason for occupational therapy: home safety and mobility, therapeutic exercises, restore joint function, gait/transfer training, ADL training and energy conservation Overseeing Care: Jonnathan Chirinos Homebound: Leaving the home is medically contraindicated at this time without the asist of a device and/or another person due th the listed conditions above and below. Reason homebound: unsteady gait / fall risk, pain with ambulation, poor balance / fall risk and unable to drive Homebound supporting statement: Pt. is considered home bound due to recent surgery. Unable to drive, poor balance, poor gait mechanics. Certification: Based on the above findings, I certify that this patient is confined to the home and needs intermittent assisted care, physical therapy and/or speech therapy, or continues to need occupational therapy. The patient is under my care, and I have initiated the establishment of the plan of care. The patient will be followed by a physician who will periodically review the plan of care. Time Spent With Patient Time: Total time managing care of this patient today ____ minutes.
--- NOTE | 2024-09-25 12:33 | MHC.CM.PN ---
Addendum entered by Rupal Smalls 09/25/24 14:36: [facility] authorization has been received by [facility]. Patient did well with Home infusion education. Patient will discharge today with services for IV ABX home infusion. His dtr will provide transportation home. Original Note: IMM 09/23/24 Final Cultures and medication received. Patient will discharge on IV Dapto Q 24H. [facility] [place] [facility]. VA auth is in progess. All clinical info has been sent to the [facility] for authorization. [facility] will provide home services. A clinical update has been sent. They are aware that [facility] Auth is pending. Discharge is pending [facility] med delivery; which is pending [facility] authorization. DP Home with [facility]. Patient's dtr will assist will home infusion as well as provide transport home.
[2024-09-25] MEDS: amLODIPine Besylate 5 MG TABLET PO (15:43)
--- NOTE | 2024-09-25 16:45 | HO.PM.IMPN ---
Subjective Subjective Date of Service: 09/25/24 Interval History: f/u on HTN BPs variable but consistent high today with SBP in 1r80s no chest pain, no sob Physical Exam Vital Signs: Vital Signs: Last Vital Signs Temp 97.2 F 09/25/24 16:23 Pulse 85 09/25/24 16:23 Resp 18 09/25/24 16:23 BP 185/76 H 09/25/24 16:23 Pulse Ox 97 09/25/24 16:23 O2 Del Method Room Air 09/25/24 16:23 O2 Flow Rate 2 09/23/24 07:35 BMI result Body Mass Index 28.2 Const: Other: General: AO X 3, no acute distress Resp: CTA bilateral CVS: S1,S2,RRR GI: +BS, NT, no distention Skin: No rash Neuro: motor grossly intact Psych: appropriate affect Objective Data Active Medications Acetaminophen (Acetaminophen 325 Mg Tablet) 650 mg PO Q6H PRN PRN Reason: Pain, Mild 1-3,fever,headache Last Admin: 09/23/24 20:00 Dose: 650 mg Documented By: SEYMOUR Amlodipine Besylate (Amlodipine Besylate 5 Mg Tablet) 5 mg PO DAILY [facility]; Protocol Last Admin: 09/25/24 15:43 Dose: 5 mg Documented By: ZOHRA Aspirin (Aspirin Enteric Coated 81 Mg Tablet.) 81 mg PO DAILY [facility] Last Admin: 09/25/24 09:47 Dose: 81 mg Documented By: ZOHRA Atorvastatin Calcium (Atorvastatin Calcium 80 Mg Tablet) 80 mg PO DAILY [facility] Last Admin: 09/25/24 09:47 Dose: 80 mg Documented By: ZOHRA Docusate Sodium (Docusate Sodium 100 Mg Capsule) 100 mg PO BID [facility] Last Admin: 09/25/24 09:47 Dose: 100 mg Documented By: ZOHRA Ezetimibe (Ezetimibe 10 Mg Tablet) 10 mg PO DAILY [facility] Last Admin: 09/25/24 09:47 Dose: 10 mg Documented By: ZOHRA Hydrochlorothiazide (Hydrochlorothiazide 25 Mg Tablet) 25 mg PO DAILY [facility]; Protocol Last Admin: 09/25/24 09:48 Dose: 25 mg Documented By: ZOHRA Hydromorphone HCl (Hydromorphone Hcl 0.5 Mg/0.5 Ml Syringe) 0.25 mg IVPUSH Q4H PRN; Protocol PRN Reason: Pain, Severe (Pain Scale 7-10) Daptomycin 300 mg/ Sodium (Chloride) 56 mls @ 99.359 mls/hr IV Q24H [facility] Stop: 11/05/24 11:04 Last Infusion: 09/25/24 12:58 Dose: Infused Documented By: ZOHRA Metoprolol Succinate (Metoprolol Succinate Er 50 Mg Tab.Er.24h) 50 mg PO DAILY [facility]; Protocol Last Admin: 09/25/24 09:47 Dose: 50 mg Documented By: ZOHRA Ondansetron HCl (Ondansetron Hcl 4 Mg/2 Ml Vial) 4 mg IVPUSH Q8H PRN PRN Reason: Nausea and Vomiting Oxycodone HCl (Oxycodone Hcl Immed Release 5 Mg Tablet) 5 mg PO Q4H PRN PRN Reason: Pain, Moderate(Pain Scale 4-6) Sodium Chloride (0.9 % Sodium Chloride Flush 3 Ml Syringe) 3 ml IVFLUSH QSHIFT [facility] Last Admin: 09/25/24 15:44 Dose: Not Given Documented By: ZOHRA Non-Admin Reason: Duplicate Order Sodium Chloride (0.9 % Sodium Chloride Flush 10 Ml Syringe) 5 ml IVFLUSH TID [facility] Last Admin: 09/25/24 15:43 Dose: 5 ml Documented By: ZOHRA Labs 09/25/24 07:49 09/25/24 07:49 Labs: Laboratory Results - last 24 hr 09/24/24 09/25/24 19:05 07:49 MCV 94.5 MCH 31.7 MCHC 33.5 RDW 13.4 Plt Count 137 L MPV 9.8 Immature Gran % (Auto) 0.2 Neut % (Auto) 47.4 Lymph % (Auto) 32.9 [place] % (Auto) 12.9 H Eos % (Auto) 6.0 H Baso % (Auto) 0.6 Lymph # (Auto) 2.7 [place] # (Auto) 1.1 Eos # (Auto) 0.5 H Baso # (Auto) 0.1 Abs Immat Gran (auto) 0.02 Absolute Neuts (auto) 3.9 Absolute Nucleated RBC 0.000 Nucleated RBC % (auto) 0.0 Anion Gap 9 L Estim Creat Clear Calc 75.3 Estimated GFR > 60 Fasting Glucose 107 H Calcium 9.0 D Random Vancomycin 14.0 L 16.8 Microbiology Microbiology Results: Microbiology 09/22/24 15:13 Gram Stain - Final Ankle Left Routine Culture - Final Staphylococcus aureus 09/22/24 15:08 Gram Stain - Final Ankle Left Routine Culture - Final Staphylococcus aureus Assessment and Plan (1) HTN (hypertension): Status: Acute Plan 83-year-old male with history of COPD, aortic stenosis s/p TAVR, coronary artery disease s/p CHUNG 04/03/2022, hypertension, hyperlipidemia admitted to Orthopedic surgery due to concerns of septic arthritis of the left ankle s/p left ankle ORIF who is s/p I&D of the left ankle. Consult was placed to hospitalist service for medical management. #Infected hardware L ankle s/p ORIF 01/2024 who is s/p irrigation and debridement L ankle , culture = Staph Aureus. He's been discharged with Daptomycin per ID recommendation # SIRS related to above, resolved. #COPD -no exacerbation # s/p TAVR - not on AC, bioprosthetic valve -resume asa per ortho surgery #CAD/HLD -no anginal chest pain -continue bb, statin, zetia. resume asa per ortho surgery #HTN--Uncontrolled. Added Norvasc. Continue Metoprolol and HCTZ, he will need a close follow up with PCP for further adjustment Quality Stroke Does the patient have a stroke diagnosis?: No VTE Prior VTE?: No VTE Risk Level:: Surgical - high VTE Device Contraindication: N/A - Device Ordered VTE Drug Contraindication: N/A - Med Ordered
--- NOTE | 2024-10-09 16:45 | W.PM.OPN ---
Operative Note Operative Note Date of Service: 09/22/24 Narrative: Date of Service: 09/22/24 Pre-op diagnosis: Infected hardware left ankle Post-op diagnosis: same Procedure: SHRUTI left ankle and irrigation/debridement Implants: none Surgeon: Jonnathan Chirinos MD Anesthesia: GETA Was an Digital Sales Assistant used for this Procedure?: Yes Digital Sales Assistant: Demetrius Contreras Estimated blood loss (mL): 50 Tourniquet time (min): 45 IV fluids (mL): 800 Pathology: other Condition: stable Disposition: PACU Patient was brought to the operating room and placed supine on the operative table and prepped and draped in standard sterile fashion. IV antibiotics were held and a standard incision was made at the level of the syndesmosis starting laterally. Full-thickness flaps were taken down to the plate. The plate was removed without difficulty and up to this point there was no evidence of infection. Once the plate was removed however I probed the area around the syndesmosis tight rope and there did appear to be purulence emanating from here. This was cultured and IV antibiotics were then administered. I made a dani incision medially and removed the suture button. I then used a combination of curette and copious irrigation to irrigate around the lateral fibular plate and in the area around where the tight rope device enter the tibia. I irrigated copiously with pulse lavage from both the medial and lateral side. There was no obvious penetration into the joint but it was likely and. Therefore I did make sure to irrigate the joint copiously from an anterolateral entry site and. Once this was done I closed the lateral wound with Prolene and packed the medial woman with iodoform into the distal tibia. Sterile dressings were applied and the patient was extubated and brought to recovery room in stable condition. There were no known complications.
== END 2024-09-25 17:30 | disposition home health service (06) | DRG 496 ==
LOC: HO.SSSA 13:02 → HO.S3 17:00
PROVIDERS: Orthopaedic Surgery; Student in an Organized Health Care Education/Training Program; PCP Internal Medicine
PROC: 0QPK04Z Removal of Internal Fixation Device from Left Fibula, Open Approach (ICD-10-PCS; principal; 2024-09-22 14:30)
DX: T84.625A Infection and inflammatory reaction due to internal fixation device of left fibula, initial encounter (principal); M00.072 Staphylococcal arthritis, left ankle and foot; I25.10 Atherosclerotic heart disease of native coronary artery without angina pectoris; J44.9 Chronic obstructive pulmonary disease, unspecified; B95.61 Methicillin susceptible Staphylococcus aureus infection as the cause of diseases classified elsewhere; Z95.2 Presence of prosthetic heart valve; Z95.5 Presence of coronary angioplasty implant and graft; Z87.891 Personal history of nicotine dependence; Z79.82 Long term (current) use of aspirin; Z79.899 Other long term (current) drug therapy
CPT/HCPCS: 36415; 36573; 80048; 80202; 82565; 85025; 87070; 87077; 87147; 87186; 87205; 97116; 97161; C1751; J0131; J0690; J0878; J1100; J1885; J2003; J2405; J2704; J2795; J3010; J3370; J7120

== ENCOUNTER → 2024-09-22 13:00 | Outpatient (BNV) | payer OTHER, SELFPAY | PROVIDERS: PCP Internal Medicine; Visit Provider Orthopaedic Surgery | DX: T84.7XXA Infection and inflammatory reaction due to other internal orthopedic prosthetic devices, implants and grafts, initial encounter (principal) | CPT/HCPCS: 20680; 99024; G0180 ==

== ENCOUNTER → 2024-09-22 13:00 | Outpatient (BNV) | payer OTHER, SELFPAY | PROVIDERS: PCP Internal Medicine; Visit Provider Internal Medicine | DX: M00.9 Pyogenic arthritis, unspecified (principal); S82.62XA Displaced fracture of lateral malleolus of left fibula, initial encounter for closed fracture | CPT/HCPCS: 99222 ==

== ENCOUNTER → 2024-09-22 13:00 | Outpatient (BNV) | payer OTHER, SELFPAY | PROVIDERS: PCP Internal Medicine; Visit Provider Physician Assistant | DX: M00.872 Arthritis due to other bacteria, left ankle and foot (principal); T84.625A Infection and inflammatory reaction due to internal fixation device of left fibula, initial encounter | CPT/HCPCS: 99222 ==

== ENCOUNTER 2024-09-30 13:57 | Outpatient (AMB) | payer MEDICARE, OTHER, SELFPAY ==
--- NOTE | 2024-09-30 14:15 | A.OFFVIS_ITS ---
Intake Visit Reasons: PO: LT ankle I&D/SHRUTI 09/22/24 NE Intake Note: Reed is a 83 year old male who presents today post operatively s/p removal of hardware and I&D of left ankle DOS: 09/22/24 w/ Dr Jonnathan Chirinos. Patient reports pain when he attempts to bear weight. He expresses he has been doing daily dressing changes and has been having discharge daily with it. Denies numbness and tingling. Allergies niacin Allergy (Severe, Verified 09/30/24 14:18) Upset Stomach procaine [From Novocain] Allergy (Severe, Verified 09/30/24 14:18) I GET MEAN simvastatin Adverse Reaction (Severe, Verified 09/30/24 14:18) myopathy HPI HPI PO: LT ankle I&D/SHRUTI 09/22/24 NE: Details: Reed is a 83 year old male who presents today post operatively s/p removal of hardware and I&D of left ankle DOS: 09/22/24 w/ Dr Jonnathan Chirinos. Patient reports pain when he attempts to bear weight. He expresses he has been doing daily dressing changes and has been having discharge daily with it. Denies numbness and tingling. [facility] Medical History Hyperlipidemia HTN (hypertension) CAD (coronary artery disease) Murmur, cardiac Chest pain COPD (chronic obstructive pulmonary disease) Asbestosis Surgical History S/P TAVR (transcatheter aortic valve replacement) Stented coronary artery Hx of cardiac catheterization Family History Father CAD (coronary artery disease) Mother No problems noted. Social History Household Members: None Housing: House Are you a primary animal caretaker supervisor to a significant other at home: No Do you presently have visiting nurse or other home services: Yes Comment: pt refusing bed alarm; ongoing Patient Tobacco Use Status: Former Tobacco user Tobacco use type: Cigarette and Cigar Years Smoked: 14 years old e-Cigarette/Vaping Use: Former Use Second Hand Smoke Exposure: No service: Yes Review of Systems Const All systems reviewed & are unremarkable except as noted in HPI and below Physical Exam Vital Signs: Last Vital Signs Temp 97.8 F 09/24/24 03:15 Pulse 69 09/24/24 03:15 Resp 18 09/24/24 03:15 BP 167/77 H 09/24/24 03:15 Pulse Ox 93 09/24/24 03:15 O2 Del Method Room Air 09/24/24 03:15 O2 Flow Rate 2 09/23/24 07:35 BMI result Body Mass Index 28.2 Extrem Other: Dressing on left ankle clean, dry, intact Minimal edema, no erythema or ecchymosis noted Aquacel on lateral ankle C/D/I Open small incision site noted on the medial ankle with packing in place Patient reports tenderness to palpation about the left ankle Distal sensation intact Capillary refill brisk Assessment & Plan Assessment & Plan (1) 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 Status post I and D of infected hardware of the left ankle DOS 09/17/2024 Patient appears to be recovering well postoperatively Patient is educated about the typical recovery course New Aquacel placed today, patient was advised that this should stay in place until next visit Patient was advised he should still continue to avoid getting the ankle wet Patient was advised he can continue attempting to weightbear in the boot Patient was amenable to this plan Patient will follow-up in 1 week for wound check and suture removal, sooner with any acute concerns Coding Level of Care Code Global (89942) Diagnoses 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
== END 2024-09-30 14:42 | disposition home or self-care (01) ==
LOC: HO.HOS 13:57
DX: T84.7XXA Infection and inflammatory reaction due to other internal orthopedic prosthetic devices, implants and grafts, initial encounter (principal)
CPT/HCPCS: 99024

== ENCOUNTER 2024-09-30 15:35 | Outpatient (REF) | payer MEDICARE, OTHER, SELFPAY ==
[2024-09-30 15:39] LABS: MANUAL DIFF FLAG NO
[2024-09-30 15:45] LABS: Basophils Absolute Auto 0.1 X10*3/uL (0.0-0.2); Basophils Percent Auto 0.7 % (0-2); Eosinophils Absolute Auto 0.4 X10*3/uL (0.0-0.4); Eosinophils Percent Auto 5.9 % (0-4); Hematocrit 34.1 % (42.0-52.0); Hemoglobin 11.5 g/dl (14.0-18.0); Imm Gran Abs Auto 0.03 X10*3/uL (0.00-0.03); Imm Gran Pct Auto 0.4 % (0.0-0.4); Lymphocytes Absolute Auto 2.3 X10*3/uL (1.2-4.9); Lymphocytes Percent Auto 33.9 % (20-40); Mean Corpuscular HGB Conc 33.7 g/dl (31.0-36.0); Mean Corpuscular Hemoglobin 32.2 pg (27.0-33.0); Mean Corpuscular Volume 95.5 fL (80.0-98.0); Mean Platelet Volume 10.1 fL (9.4-12.4); Monocytes Absolute Auto 0.7 X10*3/uL (0.1-1.2); Monocytes Percent Auto 9.8 % (2-11); Neutrophils Absolute Auto 3.3 x10*3/uL (2.0-8.3); Neutrophils Percent Auto 49.3 % (45-73); Platelet Count 158 X10*3/uL (160-400); Red Blood Count 3.57 X10*6/uL (4.60-5.80); Red Cell Distribution Width 13.6 % (11.0-16.0); White Blood Count 6.7 X10*3/uL (4.8-10.8)
[2024-09-30 17:19] LABS: Blood Urea Nitrogen 21 mg/dL (9-16); C Reactive Protein 0.59 mg/dL (< or = 0.50); Estimated Glomerular Filt Rate > 60
== END 2024-09-30 15:36 | disposition home or self-care (01) ==
LOC: HO.HVNA 15:35
PROVIDERS: Visit Provider Internal Medicine
DX: T84.7XXA Infection and inflammatory reaction due to other internal orthopedic prosthetic devices, implants and grafts, initial encounter (principal); M00.9 Pyogenic arthritis, unspecified
CPT/HCPCS: 36415; 82565; 84520; 85025; 86140; 99212

== ENCOUNTER 2024-10-05 12:54 | Outpatient (AMB) | payer OTHER, SELFPAY ==
[2024-10-05 13:11] VITALS: BP 156/80; PULSE 88; O2SAT 97
--- NOTE | 2024-10-05 13:11 | MHC.OFFVIS ---
Vital Signs 10/05/24 13:11 BP 156/80 H Pulse 88 Pulse Oximetry (%) 97 Intake Visit Reasons: reff Lorena Moralesusse/s/p SHRUTI/I&D/ankle on iv dapto Allergies niacin Allergy (Severe, Verified 10/07/24 14:04) Upset Stomach procaine [From Novocain] Allergy (Severe, Verified 10/07/24 14:04) I GET MEAN simvastatin Adverse Reaction (Severe, Verified 10/07/24 14:04) myopathy HPI HPI reff Lorena Meusse/s/p SHURTI/I&D/ankle on iv dapto: Details: He is feeling better and has no fever PFSH Medical History Ankle fracture, lateral malleolus, closed Hyperlipidemia HTN (hypertension) CAD (coronary artery disease) Murmur, cardiac Chest pain COPD (chronic obstructive pulmonary disease) Asbestosis Surgical History S/P TAVR (transcatheter aortic valve replacement) Stented coronary artery Hx of cardiac catheterization Family History Father CAD (coronary artery disease) Mother No problems noted. Social History Household Members: None Housing: House Are you a primary progressive care manager to a significant other at home: No Do you presently have visiting nurse or other home services: Yes Comment: pt refusing bed alarm; ongoing Patient Tobacco Use Status: Former Tobacco user Tobacco use type: Cigarette and Cigar Years Smoked: 14 years old e-Cigarette/Vaping Use: Former Use Second Hand Smoke Exposure: No service: Yes Review of Systems Const All systems reviewed & are unremarkable except as noted in HPI and below Physical Exam Vital Signs: Last Vital Signs Pulse 88 10/05/24 13:11 BP 156/80 H 10/05/24 13:11 Pulse Ox 97 10/05/24 13:11 Const General: cooperative Orientation/consciousness: patient oriented x3 HEENT Head: Yes normal to inspection Mouth: Normal oral and palatal mucosa present Eyes General: appearance normal, both eyes and all related structures Pupils: Equal, round and reactive pupils present Resp Effort & Inspection: normal respiratory effort Cardio Rate: regular rate Rhythm: regular rhythm GI Palpation (GI): Soft to palpation and nontender General: Yes no CVA tenderness Back/Spine/Pelvis Back: no CVA tenderness Skin General skin exam: no rashes or lesions noted Neuro General: patient oriented x3 Cranial nerves: Yes CN's II-XII intact bilaterally and Yes Equal, round and reactive pupils present Extrem General: Yes normal to inspection Psych Appearance: grossly normal Assessment & Plan Assessment & Plan (1) 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
== END 2024-10-05 13:47 | disposition home or self-care (01) ==
LOC: HO.HID 12:55
PROVIDERS: PCP Internal Medicine; Visit Provider Internal Medicine
DX: T84.7XXA Infection and inflammatory reaction due to other internal orthopedic prosthetic devices, implants and grafts, initial encounter (principal); M00.9 Pyogenic arthritis, unspecified
CPT/HCPCS: 99213

== ENCOUNTER → 2024-10-05 12:54 | Outpatient (BNVA) | payer OTHER, SELFPAY | PROVIDERS: PCP Internal Medicine; Visit Provider Internal Medicine | DX: T84.7XXA Infection and inflammatory reaction due to other internal orthopedic prosthetic devices, implants and grafts, initial encounter (principal); M00.9 Pyogenic arthritis, unspecified; X58.XXXA Exposure to other specified factors, initial encounter; Y93.9 Activity, unspecified; Y92.9 Unspecified place or not applicable; Y99.9 Unspecified external cause status | CPT/HCPCS: 99212 ==

== ENCOUNTER 2024-10-07 10:45 | Outpatient (REF) | payer OTHER, SELFPAY ==
[2024-10-07 12:46] LABS: MANUAL DIFF FLAG NO
[2024-10-07 12:54] LABS: Basophils Absolute Auto 0.1 X10*3/uL (0.0-0.2); Eosinophils Absolute Auto 0.5 X10*3/uL (0.0-0.4); Eosinophils Percent Auto 5.6 % (0-4); Hematocrit 37.3 % (42.0-52.0); Hemoglobin 12.2 g/dl (14.0-18.0); Imm Gran Abs Auto 0.04 X10*3/uL (0.00-0.03); Imm Gran Pct Auto 0.5 % (0.0-0.4); Lymphocytes Absolute Auto 2.5 X10*3/uL (1.2-4.9); Lymphocytes Percent Auto 29.8 % (20-40); Mean Corpuscular HGB Conc 32.7 g/dl (31.0-36.0); Mean Corpuscular Hemoglobin 31.5 pg (27.0-33.0); Mean Corpuscular Volume 96.4 fL (80.0-98.0); Mean Platelet Volume 10.1 fL (9.4-12.4); Monocytes Absolute Auto 0.8 X10*3/uL (0.1-1.2); Monocytes Percent Auto 10.2 % (2-11); Neutrophils Absolute Auto 4.3 x10*3/uL (2.0-8.3); Neutrophils Percent Auto 52.9 % (45-73); Platelet Count 165 X10*3/uL (160-400); Red Blood Count 3.87 X10*6/uL (4.60-5.80); White Blood Count 8.2 X10*3/uL (4.8-10.8)
[2024-10-07 13:40] LABS: Blood Urea Nitrogen 21 mg/dL (9-16); C Reactive Protein 0.27 mg/dL (< or = 0.50); Estimated Glomerular Filt Rate > 60
== END 2024-10-07 10:46 | disposition home or self-care (01) ==
LOC: HO.HVNA 10:45
PROVIDERS: Visit Provider Internal Medicine
DX: M00.9 Pyogenic arthritis, unspecified (principal); T84.7XXA Infection and inflammatory reaction due to other internal orthopedic prosthetic devices, implants and grafts, initial encounter
CPT/HCPCS: 36415; 82565; 84520; 85025; 86140; 99212

== ENCOUNTER 2024-10-07 13:48 | Outpatient (AMB) | payer MEDICARE, OTHER, SELFPAY ==
--- NOTE | 2024-10-07 14:00 | A.OFFVIS_ITS ---
Intake Visit Reasons: LT ankle I&D/SHRUTI 09/22/24 NE Intake Note: Reed is an 83 year old male who presents today for a post operative follow up about 2 weeks s/p Left Ankle SHRUTI & I&D 09/22/24. States he has little pain and has been working onhis ROM. States he has soreness after ROM exercise. Hx of Left Ankle ORIF & Syndesmosis Repair 01/21/2024 Allergies niacin Allergy (Severe, Verified 10/07/24 14:04) Upset Stomach procaine [From Novocain] Allergy (Severe, Verified 10/07/24 14:04) I GET MEAN simvastatin Adverse Reaction (Severe, Verified 10/07/24 14:04) myopathy HPI HPI LT ankle I&D/SHRUTI 09/22/24 NE: Details: Reed is an 83 year old male who presents today for a post operative follow up about 2 weeks s/p Left Ankle SHRUTI & I&D 09/22/24. States he has little pain and has been working onhis ROM. States he has soreness after ROM exercise. Hx of Left Ankle ORIF & Syndesmosis Repair 01/21/2024 [facility] Medical History Ankle fracture, lateral malleolus, closed Hyperlipidemia HTN (hypertension) CAD (coronary artery disease) Murmur, cardiac Chest pain COPD (chronic obstructive pulmonary disease) Asbestosis Surgical History S/P TAVR (transcatheter aortic valve replacement) Stented coronary artery Hx of cardiac catheterization Family History Father CAD (coronary artery disease) Mother No problems noted. Social History Household Members: None Housing: House Are you a primary administrator health care facility to a significant other at home: No Do you presently have visiting nurse or other home services: Yes Comment: pt refusing bed alarm; ongoing Patient Tobacco Use Status: Former Tobacco user Tobacco use type: Cigarette and Cigar Years Smoked: 14 years old e-Cigarette/Vaping Use: Former Use Second Hand Smoke Exposure: No service: Yes Review of Systems Const All systems reviewed & are unremarkable except as noted in HPI and below Physical Exam Vital Signs: Last Vital Signs Temp 97.8 F 09/24/24 03:15 Pulse 69 09/24/24 03:15 Resp 18 09/24/24 03:15 BP 167/77 H 09/24/24 03:15 Pulse Ox 93 09/24/24 03:15 O2 Del Method Room Air 09/24/24 03:15 O2 Flow Rate 2 09/23/24 07:35 BMI result Body Mass Index 28.2 Extrem Other: Dressing on left ankle clean, dry, intact Minimal edema, no erythema or ecchymosis noted Aquacel on lateral ankle C/D/I Open small incision site noted on the medial ankle with packing in place Patient reports tenderness to palpation about the left ankle Distal sensation intact Capillary refill brisk Assessment & Plan Assessment & Plan (1) 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
== END 2024-10-07 14:47 | disposition home or self-care (01) ==
LOC: HO.HOS 13:48
PROVIDERS: PCP Internal Medicine
DX: T84.7XXA Infection and inflammatory reaction due to other internal orthopedic prosthetic devices, implants and grafts, initial encounter (principal)
CPT/HCPCS: 99024

== ENCOUNTER 2024-10-14 10:38 | Outpatient (REF) | payer OTHER, SELFPAY ==
[2024-10-14 10:42] LABS: MANUAL DIFF FLAG NO
[2024-10-14 10:46] LABS: Basophils Absolute Auto 0.1 X10*3/uL (0.0-0.2); Basophils Percent Auto 0.5 % (0-2); Eosinophils Absolute Auto 1.2 X10*3/uL (0.0-0.4); Eosinophils Percent Auto 10.9 % (0-4); Hematocrit 34.6 % (42.0-52.0); Hemoglobin 11.7 g/dl (14.0-18.0); Imm Gran Abs Auto 0.04 X10*3/uL (0.00-0.03); Imm Gran Pct Auto 0.4 % (0.0-0.4); Lymphocytes Absolute Auto 1.6 X10*3/uL (1.2-4.9); Lymphocytes Percent Auto 14.9 % (20-40); Mean Corpuscular HGB Conc 33.8 g/dl (31.0-36.0); Mean Corpuscular Hemoglobin 32.1 pg (27.0-33.0); Mean Corpuscular Volume 95.1 fL (80.0-98.0); Mean Platelet Volume 10.2 fL (9.4-12.4); Monocytes Absolute Auto 1.4 X10*3/uL (0.1-1.2); Monocytes Percent Auto 13.2 % (2-11); Neutrophils Absolute Auto 6.4 x10*3/uL (2.0-8.3); Neutrophils Percent Auto 60.1 % (45-73); Platelet Count 147 X10*3/uL (160-400); Red Blood Count 3.64 X10*6/uL (4.60-5.80); Red Cell Distribution Width 13.7 % (11.0-16.0); White Blood Count 10.6 X10*3/uL (4.8-10.8)
[2024-10-14 11:22] LABS: Blood Urea Nitrogen 19 mg/dL (9-16); C Reactive Protein 11.18 mg/dL (< or = 0.50); Estimated Glomerular Filt Rate > 60
--- OUTSIDE RECORDS SUMMARY | 2024-10-14 12:37 | XMS_ITS | Encounter Summary ---
[facility] Address [address] [place] [address] Care Team Providers Care Surgical Assistant Name Role Phone Adam Noonan MD Primary Care Provider Unava ilable Reason for Visit * Reason Onset Date Comments refill request 02/05/2019 Encounter Details Date Type Department Care Team Description 02/05/2019 Telephone Pulmonology - [place] [address] [facility] [address] [place] [address] Eric Tucker MD refill request [...] EDT Yes please fax script printed to [place], [place] * Telephone Encounter - Xenia Bernabe - 02/05/2019 1:47 PM EDT Patient calling states was seen on January 19 was told pro air was suppose to be sent over to [facility] pharmacy and patient still has yet to rcv it and needs oyung fax over is [phone] documented in this encounter Plan of Treatment Not on file documented as of this encounter Visit Diagnoses Not on filedocumented in this encounter Care Teams Surgical Assistant Relationship Specialty Start Date End Date Adam Noonan MD PCP - General Internal Medicine 11/19/17 documented as of this encounter
--- OUTSIDE RECORDS SUMMARY | 2024-10-14 12:37 | XMS_ITS | Encounter Summary ---
Author Organization [facility] Address [address] [place] [address] Care Team Providers Care Truck Shop Mechanic Name Role Phone Adam Noonan MD Primary Care Provider Unava ilable Reason for Visit * Reason Onset Date Comments Medication 02/11/2018 Encounter Details Date Type Department Care Team Description 02/11/2018 Telephone Pulmonology - [place] [address] [facility] [address] [place] [address] Eric Tucker MD Medication Social History Tobacco Use Types Packs/Day Years Used Date Smoking Tobacco: Former Cigarettes 1 30 Alcohol Use Standard Drinks/Week Comments Yes 0 (1 standard drink = 0.6 oz pur e alcohol) Sex Assigned at Date Recorded Not on file documented as of this encounter Miscellaneous Notes * Telephone Encounter - Mihcelle Gomez M.A. - 02/11/2018 11:26 AM EDT [...] Primary documented in this encounter Care Teams Truck Shop Mechanic Relationship Specialty Start Date End Date Adam Noonan MD PCP - General Internal Medicine 11/19/17 documented as of this encounter
--- OUTSIDE RECORDS SUMMARY | 2024-10-14 12:37 | XMS_ITS ---
Author Organization [facility] Address [address] [place] [address] Care Team Providers Care Career Services Assistant Name Role Phone Josue Simmons MD Primary Care Provider Unavailab Lyn Damico [phone] REASON FOR VISIT HEAD OF MARKETING PPWK Entered Encounters Encounter Location Date Provider Diagnosis [facility] [address] [place] [address] 03/12/2024 Lyn Lund Plan Of Treatment No Information Progress Notes * Reed MALLORY HDOB:1940 (83 yo M)Acc No.[id number]:03/12/2024 Patient:?Reed Mallory :1940???Age:83 Y???Sex:Male Address:[address] [place] [address] * true * Date:? Generated for Printi ng/Famichaelg/eTransmitting on:?10/14/2024 12:37 PM EDT
--- OUTSIDE RECORDS SUMMARY | 2024-10-14 12:37 | XMS_ITS | Encounter Summary ---
Author Organization [facility] Address [address] [place] [address] Care Team Providers Care Process Camera Operator Name Role Phone Adam Noonan MD Primary Care Provider Unava ilable Reason for Visit * Reason Onset Date Comments medication problems 02/16/2019 Encounter Details Date Type Department Care Team Description 02/16/2019 Telephone Pulmonology - [place] [address] [facility] [address] [place] [address] Eric Tucker MD medication problems [...] on 02/08[facility] * Telephone Encounter - Hannah Tucker - 02/16/2019 4:11 PM EDT [place] [facility] send a fax that they can't fill the prescription for ALBUTEROL SULFATE (PROAIR HFA) 108 (90 BASE) MCG/ACT Aero Soln for 11 refills It needs to be send to a local pharmacy. I call and spoke with the patient and he wants the medication to be send to [id number] - [place] - [address] [facility] documented in this encounter Plan of Treatment Not on file documented as of this encounter Visit Diagnoses Diagnosis Simple chronic bronchitis (HCC)- Primary Simple chronic bronchitis documented in this encounter Care Teams Process Camera Operator Relationship Specialty Start Date End Date Adam Noonan MD PCP - General Internal Medicine 11/19/17 documented as of this encounter
--- OUTSIDE RECORDS SUMMARY | 2024-10-14 12:37 | XMS_ITS | Patient Health Record ---
Author Organization [facility] [place] Address [address] [place] [address] Care Team Providers Care Poultry Picker Name Role Phone Josue Simmons MD Primary Care Provider Lyn Aquino Unavailable [phone] Allergies Allergen (clinical drug ingredient) Drug/Non Drug [...] primary osteoarthritis of the ankle and/or foot ([id number]) Primary osteoarthrit is, right ankle and foot (M19.071) Active confirmed Encounters Encounter Location Date Provider Diagnosis [facility] [address] [facility] [place] [address] 03/09/2024 Lyn Lund [facility] [place] [address] [facility] [place] [address] 03/12/2024 Lyn Lund [facility] [place] [address] [facility] [place] [address] 04/02/2024 Lyn Lund Plan Of Treatment Pending Test Test Name Order Date X ray : Foot, right 3V 01/20/2015 X ray : Ankle, right 3V 03/04/2017 Insurance Providers Payer Name Payer Address Payer Phone Subscriber Number Group Number Insured Name Patient Relationship to Insured Coverage Start Date Coverage End Date Medicare National Govt [employer] [address] [place] [address] [id number] Reed Mallory Self - patient is the insured VAC[employer] [address] [place] [address] Reed Mallory Self - patient is the [...]
--- OUTSIDE RECORDS SUMMARY | 2024-10-14 12:38 | XMS_ITS ---
Author Organization [facility] Address [address] [place] [address] Care Team Providers Care Railroad Baggage Porter Name Role Phone Josue Simmons MD Primary Care Provider UnavailLyn Main [phone] REASON FOR VISIT 04/23/24 Encounters Encounter Location Date Provider Diagnosis [facility] [address] [place] [address] 04/02/2024 Lyn Lund Plan Of Treatment No Information Progress Notes * Reed MALOLRY HDOB:1940 (83 yo M)Acc No.[id number]:04/02/2024 Patient:?Reed Mallory :1940???Age:83 Y???Sex:Male Address:[address] [place] [address] * true * Date:? Generated for Printi ng/Famichaelg/eTransmitting on:?10/14/2024 12:37 PM EDT
--- OUTSIDE RECORDS SUMMARY | 2024-10-14 12:38 | XMS_ITS | Encounter Summary ---
Author Organization [facility] Address [address] [place] [address] Care Team Providers Care Engine Tester Name Role Phone [place] Primary Care Provider Cecelia Granados, Pcp Primary Care Provider Adam Rothman MD Primary Care Provider Unava ilable Encounter Details Date Type Department Care Team Description 07/22/2015 Hospital Medical Records [address] [place], [place] [id number] [place] [address] Social History Tobacco Use Types Packs/Day Years [...] on filedocumented in this encounter Care Teams Engine Tester Relationship Specialty Start Date End Date [place] PCP - General Internal Medicine 07/15/11 11/14/17 Roberta, Pcp PCP - General Internal Medicine 11/15/17 11/18/17 Adam Noonan MD PCP - General Internal Medicine 11/19/17 documented as of this encounter
--- OUTSIDE RECORDS SUMMARY | 2024-10-14 12:38 | XMS_ITS ---
Author Organization [facility] Address [address] [place] [address] Care Team Providers Care Systems Integration Advisor Name Role Phone Josue Simmons MD Primary Care Provider Unavailab melinda Lyn Lund Unavailable [phone] Allergies Allergen (clinical drug ingredient) Drug/Non Drug [...] 04/23/2024 Encounters Encounter Location Date Provider Diagnosis [facility] [address] [place] [address] 04/23/2024 Lyn Lund Plan Of Treatment No Information Progress Notes * Reed MALLORY HDOB:1940 (84 yo M)Acc No.[id number]:04/23/2024 Progress Notes Patient:Reed VANCE Provider:?Lyn Lund DPM :1940???Age:83 Y???Sex:Male Chu e:04/23/2024 Address:[address] [place], [place] [id number] Pcp:Josue Simmons MD Subjective: * Chief Complaints: [...] Lund DPM Date:?2023 Generated for Yokasta palacios/Ilda/Cocoitting on:?10/14/2024 12:38 PM EDT
--- OUTSIDE RECORDS SUMMARY | 2024-10-14 12:38 | XMS_ITS ---
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 Organization [facility] Address [address] [place] [address] Care Team Providers Care Food Demonstrator Name Role Phone JOSUE SIMMONS Primary Care [...] Dec 19, 2007 MEDICAR E SUPPLEM E [id number] NYDIA HUERTA UL PATIENT [employer] MEDICARE SUPPLEMEN YORDAN Dec 19, 2007 MEDICAR E SUPPLEM E [id number] NYDIA HUERTA UL PATIENT [employer] [place] MEDICARE SUPPLEMEN YORDAN BANKE RS Dec 19, 2007 NONE [id number] [phone] NYDIA HUERTA UL PATIENT MEDICARE (WNR) MEDICARE (M) PART B Oct 13, 2006 PART B [id number] NYDIA HUERTA UL PATIENT MEDICARE (WNR) MEDICARE (M) PART B Oct 13, 2006 PART B [id number] [place] UL PATIENT MEDICARE (WNR) MEDICARE (M) PART B Oct 13, 2006 PART B [id number] NYDIA HUERTA PATIENT MEDICARE (WNR) MEDICARE (M) PART B Oct 13, 2006 PART B [id number] NYDIA HUERTA PATIENT MEDICARE (WNR) MEDICARE (M) PART A Sep 13, 2003 PART A [id number] NYDIA HUERTA PATIENT MEDICARE (WNR) MEDICARE (M) PART A Sep 13, 2003 PART A [id number] NYDIA HUERTA PATIENT MEDICARE (WNR) MEDICARE (M) PART A Sep 13, 2003 PART A [id number] [phone] NYDIA HUERTA PATIENT MEDICARE (WNR) MEDICARE (M) PART A Sep 13, 2003 PART A [id number] [phone] NYDIA HUERTA PATIENT Selected Encounter This section includes the information on record at [place] for the Encounter. Date/Time Encounter Type Encounter Description Reason Pro vider Source Oct 11, 2024 09:59 PM Outpatient Encounter PRIMARY CARE/MEDICINE IHE Encounter Template Text not used by [place] [...] Appointment Type Appointme nt Facility Name Oct 28, 2024 08:00 AM [facility] [place] [facility] Nov 11, 2024 02:30 PM [facility] Active, Pending, and Scheduled Orders This section includes a listing of several types of active, pending, and scheduled orders, including clinic medications orders, diagnostic test orders, procedure orders and consult orders; where the start date of the order is 45 days before the date of the Encounter or 45 days after the date of theEncounter. The data comes from all [place] treatment facilities. Test Date/Time Test Type Test Details Facility Name Sep 25, 2024 12:15 PM Consult Order [facility] HOME INFUSION THERAPY Cons [facility]ip[facility]urist[facility] [place] [facility] Sep 25, 2024 04:51 PM Consult Order COMMUNITY CARE-INFECTIOUS DISEASE Cons Venipuncturist's Choice [facility] [place] [facility] Social [...] PM VA-TOBACCO QUIT 15 YRS OR MORE [place] [facility] [place] [facility] Tobacco Use History This section includes a history of the smoking, or tobacco-related health factors, that were collected on or before the date of the Encounter. The data comes from the [facility] facility where the Encounter [...] [facility] [place] [facility] Jun 28, 2021 10:30 AM VA-TOBACCO FORMER USER [facility] [place] [facility] Jun 28, 2021 10:30 AM [...] VA-TOBACCO NEVER USED [facility] [place] [facility] Advance Directives: All historical and [...] 19, 2022 ADVANCE DIRECTIVE ONUR CASTORENARICLINDA HILL [facility] November 16, 2020 ADVANCE DIRECTIVE JOSUE SIMMONS [facility] Encounter Notes: All associated encounter notes This section contains the clinical notes associated to the Encounter. Date/Time Encounter Note(s) Provider Source Oct 11, 2024 09:59 PM PHYSICIAN NOTE: LOCAL TITLE: NOTE STANDARD TITLE: PHYSICIAN NOTE DATE OF NOTE: OCT 11, 2024@21:59 ENTRY DATE: OCT 11, 2024@21:59:54 AUTHOR: JOSUE SIMMONS EXP COSIGNER: URGENCY: [facility]US[facility] [phone] received fax confirmation /eleanor/ Josue Simmons MD Staff Physician Signed: 10/11/2024 22:14 JOSUE SIMMONS [facility]
--- OUTSIDE RECORDS SUMMARY | 2024-10-14 12:39 | XMS_ITS | Continuity of Care Document ---
Author Name [facility] Organization [facility] Care Team Providers Care Groundwater Monitoring Technician Name Role Phone [facility] Unavailable Unavailable Problems Combined list of problems from Department of Defense and Veterans Affairs facilities. It does not include entries that were removed or entered in error. Problem Status Onset Date Problem Type Date of Resolution Comments Source Chronic dermatitis Active 023 Condition Oct 05, 2022 Entered By: BYRON BARRON Comment: referred to dermatology [facility] Chest Pain (SCT [id number]) Active Condition Jan 02, 2022 Entered By: BYRON BARRON Comment: ordered stress test [facility] COPD - Chronic Obstructive Pulmonary Disease (SCT 15889063) Active Condition Dec 28, 2021 Entered By: BYRON BARRON Comment: on inhalers [facility] Cataract Active Condition Oct 12, 2020 Entered By: BYRON BARRON Comment: referred for surgery [facility] HTN - Hypertension (SCT [id number]) Active Condition Oct 21, 2020 Entered By: BYRON BARRON Comment: treated witn medication [facility] Hypercholesterolemia (SCT [id number]) Active Condition Oct 21, 2020 Entered By: [...] of uncertain behavior of skin Active Diagnosis [facility] Diagnosis: ICD-10-CM Z13.89 Encounter for screening for other disorder Active Diagnosis [facility] Diagnosis: ICD-10-CM R21 Rash and other nonspecific skin eruption Active Diagnosis [facility] Diagnosis: ICD-10-CM Z23 Encounter for immunization [...] Ordering Provider Order Date Order Qty Source AMLODIPINE BESYLATE 5MG TAB TAKE ONE TABLET BY MOUTH ONCE DAILY FOR BLOOD PRESSURE /HEART, DO NOT TAKE WITH GRAPEFRU IT JUICE ORAL ACTIVE 12/24/2024 [id number] MLAPADandy,TH [place] K 2024 90 [facility] AMOXICILLIN TRIHYDRATE 875MG/CLAVU LANATE K 125MG TAB TAKE 1 TABLET BY MOUTH TWICE DAILY FOR INFECTIO N ORAL 11/15/2023 [id number] MAUREEN BARRON PAIGE D 2023 20 [facility] ASPIRIN 81MG TAB,CHEWABL E CHEW ONE TABLET BY MOUTH ONCE DAILY ORAL ACTIVE JANINE HAMMOND R 2021 [facility] ATORVASTATI N CA 80MG TAB TAKE ONE TABLET BY MOUTH AT BEDTIME ORAL DISCONT INUED BY PROVIDE R 06/26/2025 [id number] 5 MAUREEN BARRON PAIGE D 2023 90 [facility] ATORVASTATI N CA 80MG TAB TAKE ONE TABLET BY MOUTH AT BEDTIME ORAL DISCONT INUED 06/19/2024 [id number] 4 MOHAMUD ARGUETA AV 2022 90 [facility] CARBOXYMETH YLCELLULOSE NA 0.5% SOLN,OPH INSTILL 1 DROP INTO EACH EYE FOUR TIMES A DAY FOR DRY EYE OPHTHA LMIC ACTIVE 09/02/2025 [id number] 5 CALDERON,LAC EY J 2024 45 [facility] CEPHALEXIN 500MG CAP TAKE ONE CAPSULE BY MOUTH EVERY 8 HOURS FOR INFECTIO N ORAL 04/04/2024 [id number] MAMTA STERN 2023 21 [facility] DOCUSATE NA 100MG CAP TAKE ONE CAPSULE BY MOUTH TWICE DAILY FOR 7 DAYS TO SOFTEN STOOL ORAL ACTIVE 10/25/2024 [id number] 5 MISA CANTU- NERI 2024 14 [facility] EYELID CLEANSER,EY E SCRUB PAD USE 1 PAD TOPICALL Y EVERY MORNING BLEPHARI TIS TOPICA L ACTIVE 09/02/2025 [id number] 5 OSBALDO CALDERON EY J 2024 90 [facility] EZETIMIBE 10MG TAB TAKE ONE TABLET BY MOUTH ONCE DAILY TO LOWER CHOLESTE ROL ORAL ACTIVE 06/26/2025 [id number] 5 MAUREEN BARRON PAIGE D 2023 90 [facility] EZETIMIBE 10MG TAB TAKE ONE TABLET BY MOUTH ONCE DAILY TO LOWER CHOLESTE ROL ORAL DISCONT INUED 06/19/2024 [id number] KENDALL,MOHAMUD AV 2022 90 [facility] HYDROCHLORO THIAZIDE 25MG TAB TAKE ONE TABLET BY MOUTH ONCE DAILY ORAL ACTIVE 12/24/2024 [id number] 5 VAILRAJI HLEY M 2024 90 [facility] HYDROCHLORO THIAZIDE 25MG TAB TAKE ONE TABLET BY MOUTH ONCE DAILY ORAL 06/19/2024 [id number] KENDALL,MOHAMUD AV 2023 90 [facility] METOPROLOL SUCCINATE 50MG TAB,SA TAKE ONE TABLET BY MOUTH ONCE DAILY FOR BLOOD PRESSURE /HEART ORAL ACTIVE 06/26/2025 [id number] 5 MAUREEN BARRON PAIGE D 2023 90 [facility] METOPROLOL SUCCINATE 50MG TAB,SA TAKE ONE TABLET BY MOUTH ONCE DAILY FOR BLOOD PRESSURE /HEART ORAL DISCONT INUED 06/19/2024 [id number] 4 KENDALL,MOHAMUD AV 2022 90 [facility] OXYCODONE HCL 5MG TAB TAKE ONE TABLET BY MOUTH EVERY 4 HOURS NEEDED FOR PAIN ORAL ACTIVE 10/25/2024 [id number] 5 MISA CANTU- NERI 2024 42 [facility] TRIAMCINOLO NE ACETONIDE 0.1% CREAM,TOP APPLY A MODERATE AMOUNT TOPICALL Y TWICE DAILY NEEDED FOR ITCHING TOPICA L ACTIVE 10/24/2024 [id number] 4 MAUREEN BARRON D 2023 [facility] Allergies, Adverse Reactions, Alerts Combined list [...] to drug (finding) Feeling agitated [facility] Propensity to adverse reactions to drug (finding) active 2 [facility] Immunizations Combined list of available immunizations from the Department of Defense and Veterans Affairs facilities. Immunization Series Date Given Administered By Site Reaction Lot Number CVX Code Drug Opener Tender Status Comments Source COVID-19 (MODERNA), MRNA, LNP-S, PF, 50 MCG/0.5 ML (AGES 12+ YEARS) 7 2023 ALMA MAHER LEFT DELTO ID [id number] 312 complet ed [facility] INFLUENZA, HIGH-DOSE, TRIVALENT, PF 2023 ALMA MAHER LEFT DELTO ID [id number] 135 complet ed [facility] RSV, BIVALENT, PROTEIN SUBUNIT RSVPREF, DILUENT RECONSTITUTED , 0.5 ML, PF 1 2023 GRETCHEN ANDRADE LEFT DELTO ID [id number] 305 complet ed [facility] [facility] COVID-19 (MODERNA), MRNA, LNP-S, PF, 50 MCG/0.5 ML (AGES 12+ YEARS) 1 2023 GRETCHEN ANDRADE E LEFT DELTO ID [id number] 312 complet ed [facility] [place] INFLUENZA, HIGH-DOSE, QUADRIVALENT 2022 JERRI SHAIKH M LEFT DELTO ID [id number] 197 complet [facility] COVID-19 (MODERNA), MRNA, LNP-S, BIVALENT BOOSTER, PF, 50 MCG/0.5 ML OR 25MCG/0.25 ML DOSE 2021 JERRI SHAIKH LEFT DELTO ID [id number] 229 complet ed [facility] INFLUENZA VACCINE, QUADRIVALENT, ADJUVANTED 2021 205 complet ed [facility] COVID-19 (MODERNA), MRNA, LNP-S, PF, 100 MCG/0.5ML DOSE OR 50 MCG/0.25ML DOSE 3 2021 207 complet ed MOD; [id number] ; 2 [facility] PNEUMOCOCCAL CONJUGATE PCV20, POLYSACCHARID E [id number] CONJUGATE, ADJUVANT, PF 2021 216 complet ed [facility] COVID-19 (MODERNA), MRNA, LNP-S, PF, 100 MCG OR 50 MCG DOSE 3 2020 207 complet ed MOD; [id number]; 2 [facility] INFLUENZA, UNSPECIFIED FORMULATION 2020 88 complet ed [facility] TDAP 2020 115 complet ed [facility] COVID-19 (MODERNA), MRNA, LNP-S, PF, 100 MCG/0.5 ML DOSE 2 2020 207 complet ed MOD; [id number]; 1 [facility] COVID-19 (MODERNA), MRNA, LNP-S, PF, 100 MCG/0.5 ML DOSE 1 2020 207 complet ed MOD; [id number]; 1 [facility] [...] DOSE SEASONAL 2017 135 complet ed Partner: [facility]. Administe red by: ARLET BOLTON (SZS=[phone]). Partner 0 Lot#: [id number] Mfr: Sanofi Pasteur; Dosage: 0.5 [facility] PNEUMOCOCCAL POLYSACCHARID E [id number] 2016 33 complet ed Partner: [facility] Administe red by: ARLET BOLTON (BBO=[phone]). Partner 0 Lot#: [id number] Mfr: Merck; Dosage: 0.5 [facility] INFLUENZA, HIGH DOSE SEASONAL 2016 135 complet ed [facility] Administe red by: ARLET BOLTON (LLS=[phone]). Partner 0 Lot#: [id number] Mfr: Sanofi Pasteur; Dosage: 0.5 [facility] [place] [facility] Results Combined list of recent chemistry, hematology [...] Apr 04, 2024 05:53 PM Reporting Lab: [facility] [address] Performing Lab: [facility] [address] [facility] LIVER FUNCTION ALBUMIN [MASS/VOLU ME] IN SERUM OR PLASMA 4.0 g/dL 3.5 - 5.0 04/07 Specimen Type: SERUM No comment entered. Ordering Provider: JAMILA BARRON Report Released Date/Time: Apr 04, 2024 05:53 PM Reporting Lab: [facility] [place] [facility] [address] [facility] [address] Performing Lab: [facility] [place] [facility] [address] [facility] [address] [facility] [place] [facility] LIVER FUNCTION ALKALINE PHOSPHATAS E [ENZYMATIC ACTIVITY/V OLUME] IN SERUM OR PLASMA 118 U/L 40 - 150 04/07 Specimen Type: SERUM No comment entered. Ordering Provider: JAMILA BARRON Report Released Date/Time: Apr 04, 2024 05:53 PM Reporting Lab: [facility] [place] [address] [address] Performing Lab: [facility] [place] [address] [address] [facility] LIVER FUNCTION ASPARTATE AMINOTRANS FERASE [ENZYMATIC ACTIVITY/V OLUME] IN SERUM OR PLASMA 30 U/L 5 - 34 04/07 Specimen Type: SERUM No comment entered. Ordering Provider: JAMILA BARRON Report Released Date/Time: Apr 04, 2024 05:53 PM Reporting Lab: [facility] [place] [address] [address] Performing Lab: [facility] [place] [address] [address] [facility] [place] [facility] LIVER FUNCTION ALANINE AMINOTRANS FERASE [ENZYMATIC ACTIVITY/V OLUME] IN SERUM OR PLASMA 23 U/L 04/07 Specimen Type: SERUM No comment entered. Ordering Provider: JAMILA BARRON Report Released Date/Time: Apr 04, 2024 05:53 PM Reporting Lab: [facility] [place] [address] [address] Performing Lab: [facility] [place] [address] [address] [facility] LIVER FUNCTION BILIRUBIN. TOTAL [MASS/VOLU ME] IN SERUM OR PLASMA 1.0 mg/dL 0.2 - 1.2 04/07 Specimen Type: SERUM No comment entered. Ordering Provider: JAMILA BARRON Report Released Date/Time: Apr 04, 2024 05:53 PM Reporting Lab: [facility]USE[address] [address] Performing Lab: [facility]TRN [facility]USE[address] [address] [facility]TRN [facility]OSPITALUSE [facility] BASIC METABOLI C PANEL (fasting ) UREA NITROGEN [MASS/VOLU ME] IN SERUM OR PLASMA 22 mg/dL 7 - 25 04/07 Specimen Type: SERUM No comment entered. Ordering Provider: JAMILA BARRON Report Released Date/Time: Apr 04, 2024 05:53 PM Reporting Lab: [facility]MARYN [address] [address] Performing Lab: [facility] TRN [facility]USE[address] [address] [facility]N [facility]OSPITALUSE [facility] BASIC METABOLI C PANEL (fasting ) GLUCOSE [MASS/VOLU ME] IN SERUM OR PLASMA 93 mg/dL 65 - 100 04/07 Specimen Type: SERUM No comment entered. Ordering Provider: JAMILA BARRON Report Released Date/Time: Apr 04, 2024 05:53 PM Reporting Lab: [facility]TRN [facility]ITALUSE[address] [address] Performing Lab: [facility]N [facility]ITALUSE[address] [address] [facility]TRN [facility]USE [facility] BASIC METABOLI C PANEL (fasting ) SODIUM [MOLES/VOL UME] IN SERUM OR PLASMA 139 mmol/L 135 - 145 04/07 Specimen Type: SERUM No comment entered. Ordering Provider: JAMILA BARRON Report Released Date/Time: Apr 04, 2024 05:53 PM Reporting Lab: [facility]TRN [facility]ITALUSE[address] [address] Performing Lab: [facility]N [facility]USE[address] [address] [facility]ITALRL WSTRN [facility] BASIC METABOLI C PANEL (fasting ) POTASSIUM [MOLES/VOL UME] IN SERUM OR PLASMA 3.9 mmol/L 3.5 - 5.0 04/07 Specimen Type: SERUM No comment entered. Ordering Provider: JAMILA BARRON Report Released Date/Time: Apr 04, 2024 05:53 PM Reporting Lab: [facility] [place] [address] [address] Performing Lab: [facility] [address] [facility] [address]ITALUSE [facility] BASIC METABOLI C PANEL (fasting ) CHLORIDE [MOLES/VOL UME] IN SERUM OR PLASMA 102 mmol/L 100 - 110 04/07 Specimen Type: SERUM No comment entered. Ordering Provider: JAMILA BARRON Report Released Date/Time: Apr 04, 2024 05:53 PM Reporting Lab: [facility] [place] [address] [address] Performing Lab: [facility]ITALUSE[address] [address] [facility] WSTRN [facility] BASIC METABOLI C PANEL (fasting ) CARBON DIOXIDE, TOTAL [MOLES/VOL UME] IN SERUM OR PLASMA 26 meq/L 20 - 30 04/07 Specimen Type: SERUM No comment entered. Ordering Provider: JAMILA BARRON Report Released Date/Time: Apr 04, 2024 05:53 PM Reporting Lab: [facility] [place] [address] [address] Performing Lab: [facility]ITAL[facility] [address] [facility]ITALUSE [facility] BASIC METABOLI C PANEL (fasting ) CREATININE [MASS/VOLU ME] IN SERUM OR PLASMA 0.92 mg/dL 0.50 - 1.40 04/07 Specimen Type: SERUM No comment entered. Ordering Provider: JAMILA BARRON Report Released Date/Time: Apr 04, 2024 05:53 PM Reporting Lab: [facility] [place] [facility] [address] [facility] [address] Performing Lab: [facility] [place] [facility] [address] [facility] [address] [facility] [place] [facility] BASIC METABOLI C PANEL (fasting ) GLOMERULAR FILTRATION RATE/1.73 SQ M.PREDICTE D [VOLUME RATE/AREA] IN SERUM, PLASMA OR BLOOD BY CREATININE -BASED FORMULA (CKD-EPI 2020) 82 mL/min 60 04/07 Specimen Type: SERUM No comment entered. Ordering Provider: JAMILA BARRON Report Released Date/Time: Apr 04, 2024 05:53 PM Reporting Lab: [facility] [place] [facility] [address] [facility] [address] Performing Lab: [facility] [place] [facility] [address] [facility] [address] [facility]ITALRL TRN [place] [facility] TSH THYROTROPI N [UNITS/VOL UME] IN SERUM OR PLASMA 2.34 u[IU]/mL 0.35 - 5.00 04/07 Specimen Type: SERUM No comment entered. Ordering Provider: JAMILA BARRON Report Released Date/Time: Apr 04, 2024 05:53 PM Reporting Lab: [facility] [place] [facility] [address] [facility] [address] Performing Lab: [facility]ITALUSETS [address] [address] [facility]ITALRL TRN [place] [facility] CBC AND DIFF (AUTO) LEUKOCYTES [#/VOLUME] IN BLOOD BY AUTOMATED COUNT 7.77 10*3/uL 4.50 - 11.00 04/07 Specimen Type: BLOOD No comment entered. Ordering Provider: JAMILA BARRON Report Released Date/Time: Apr 04, 2024 05:53 PM Reporting Lab: [facility] [place] [facility] [address] [facility] [address] Performing Lab: [facility] [address] [address] [facility] [place] [facility] CBC AND DIFF (AUTO) ERYTHROCYT ES [#/VOLUME] IN BLOOD BY AUTOMATED COUNT 4.29 10*6/uL 4.23 - 5.66 04/07 Specimen Type: BLOOD No comment entered. Ordering Provider: JAMILA BARRON Report Released Date/Time: Apr 04, 2024 05:53 PM Reporting Lab: [facility]ITALTR[facility] [place] [facility] [address] [facility] [address] Performing Lab: [facility] HOSPITALTRN [facility]OSPITALUSETS [facility] [address] [facility] [address] [facility]ITALRL TRN [place] [facility] CBC AND DIFF (AUTO) HEMOGLOBIN [MASS/VOLU ME] IN BLOOD 14.2 g/dL 12.8 - 17 04/07 Specimen Type: BLOOD No comment entered. Ordering Provider: JAMILA BARRON Report Released Date/Time: Apr 04, 2024 05:53 PM Reporting Lab: [facility]N [facility] HOSPITALUSETS [address] [address] Performing Lab: [facility] TRN [facility] HOSPITALUSETS [address] [address] [facility]ITALRNOR[facility]MARYN [place] [facility] CBC AND DIFF (AUTO) HEMATOCRIT [VOLUME FRACTION] OF BLOOD BY AUTOMATED COUNT 41.1 39.2 - 50.4 04/07 Specimen Type: BLOOD No comment entered. Ordering Provider: JAMILA BARRON Report Released Date/Time: Apr 04, 2024 05:53 PM Reporting Lab: [facility] HOSPITALTRN [place] [address] [address] Performing Lab: [facility]ITALRL TRN [place] [address] [address] [facility]MARYN [place] [facility] CBC AND DIFF (AUTO) MCV [ENTITIC VOLUME] BY AUTOMATED COUNT 95.8 fL 82 - 99 04/07 Specimen Type: BLOOD No comment entered. Ordering Provider: JAMILA BARRON Report Released Date/Time: Apr 04, 2024 05:53 PM Reporting Lab: [facility] HOSPITALTRN [place] [address] [address] Performing Lab: [facility]PITALTRN [place] [address] [address] [facility] [place] [facility] CBC AND DIFF (AUTO) MCHC [MASS/VOLU ME] BY AUTOMATED COUNT 34.5 g/dL 30.8 - 35.1 04/07 Specimen Type: BLOOD No comment entered. Ordering Provider: JAMILA BARRON Report Released Date/Time: Apr 04, 2024 05:53 PM Reporting Lab: [facility] [place] [address] [address] Performing Lab: [facility] [place] [facility] [address] [facility] [address] [facility] [place] [facility] CBC AND DIFF (AUTO) PLATELETS [#/VOLUME] IN BLOOD BY AUTOMATED COUNT 184 10*3/uL 140 - 360 04/07 Specimen Type: BLOOD No comment entered. Ordering Provider: JAMILA BARRON Report Released Date/Time: Apr 04, 2024 05:53 PM Reporting Lab: [facility] [place] [address] [address] Performing Lab: [facility] [place] [address] [address] [facility] [place] [facility] CBC AND DIFF (AUTO) ERYTHROCYT E DISTRIBUTI ON WIDTH [RATIO] BY AUTOMATED COUNT 13.1 12.0 - 16.0 04/07 Specimen Type: BLOOD No comment entered. Ordering Provider: JAMILA BARRON Report Released Date/Time: Apr 04, 2024 05:53 PM Reporting Lab: [facility] [place] [address] [address] Performing Lab: [facility] [place] [facility] [address] [place] [address] [facility] [place] [facility] CBC AND DIFF (AUTO) MONOCYTES [#/VOLUME] IN BLOOD BY AUTOMATED COUNT 0.98 10*3/uL 0.30 - 1.10 04/07 Specimen Type: BLOOD No comment entered. Ordering Provider: JAMILA BARRON Report Released Date/Time: Apr 04, 2024 05:53 PM Reporting Lab: [facility] [place] [address] [place] [address] Performing Lab: [facility] [place] [facility] [address] [facility] [address] [facility] [place] [facility] CBC AND DIFF (AUTO) MCH [ENTITIC MASS] BY AUTOMATED COUNT 33.1 pg 26.2 - 32.6 04/07 H Specimen Type: BLOOD No comment entered. Ordering Provider: JAMILA BARRON Report Released Date/Time: Apr 04, 2024 05:53 PM Reporting Lab: [facility] [place] [facility] [address] [facility] [address] Performing Lab: [facility] [place] [facility] [address] [facility] [address] [facility] [place] [facility] CBC AND DIFF (AUTO) NEUTROPHIL S/100 LEUKOCYTES IN BLOOD BY AUTOMATED COUNT 52.3 43.7 - 75.8 04/07 Specimen Type: BLOOD No comment entered. Ordering Provider: JAMILA BARRON Report Released Date/Time: Apr 04, 2024 05:53 PM Reporting Lab: [facility] [place] [facility] [address] [facility] [address] Performing Lab: [facility] [place] [facility] [address] [facility] [address] [facility] [place] [facility] CBC AND DIFF (AUTO) LYMPHOCYTE S/100 LEUKOCYTES IN BLOOD BY AUTOMATED COUNT 31.7 14.0 - 42.3 04/07 Specimen Type: BLOOD No comment entered. Ordering Provider: JAMILA BARRON Report Released Date/Time: Apr 04, 2024 05:53 PM Reporting Lab: [facility] [address] [facility] [address] Performing Lab: [facility] [place] [facility] [address] [facility] [address] [facility] [place] [facility] CBC AND DIFF (AUTO) MONOCYTES/ 100 LEUKOCYTES IN BLOOD BY AUTOMATED COUNT 12.6 5.1 - 13.7 04/07 Specimen Type: BLOOD No comment entered. Ordering Provider: JAMILA BARRON Report Released Date/Time: Apr 04, 2024 05:53 PM Reporting Lab: [facility] [place] [facility] [address] [facility] [address] Performing Lab: [facility] [place] [facility] [address] [facility] [address] [facility] [place] [facility] CBC AND DIFF (AUTO) EOSINOPHIL S/100 LEUKOCYTES IN BLOOD BY AUTOMATED COUNT 2.3 0.4 - 6.8 04/07 Specimen Type: BLOOD No comment entered. Ordering Provider: JAMILA BARRON Report Released Date/Time: Apr 04, 2024 05:53 PM Reporting Lab: [facility] [place] [facility] [address] [facility] [address] Performing Lab: [facility] [place] [facility] [address] [facility] [address] [facility] [facility] CBC AND DIFF (AUTO) BASOPHILS/ 100 LEUKOCYTES IN BLOOD BY AUTOMATED COUNT 0.6 0.1 - 2.0 04/07 Specimen Type: BLOOD No comment entered. Ordering Provider: JAMILA BARRON Report Released Date/Time: Apr 04, 2024 05:53 PM Reporting Lab: [facility] [place] [facility] [address] [facility] [address] Performing Lab: [facility] [place] [facility] [address] [facility] [address] [facility] [place] [facility] CBC AND DIFF (AUTO) NEUTROPHIL S [#/VOLUME] IN BLOOD BY AUTOMATED COUNT 4.06 10*3/uL 2.20 - 7.60 04/07 Specimen Type: BLOOD No comment entered. Ordering Provider: JAMILA BARRON Report Released Date/Time: Apr 04, 2024 05:53 PM Reporting Lab: [facility] [place] [facility] [address] [facility] [address] Performing Lab: [facility] [place] [facility] [address] [facility] [address] [facility] CBC AND DIFF (AUTO) LYMPHOCYTE S [#/VOLUME] IN BLOOD BY AUTOMATED COUNT 2.46 10*3/uL 1.00 - 3.20 04/07 Specimen Type: BLOOD No comment entered. Ordering Provider: JAMILA BARRON Report Released Date/Time: Apr 04, 2024 05:53 PM Reporting Lab: [facility] [place] [facility] [address] [facility] [address] Performing Lab: [facility] [place] [facility] [address] [facility] [address] [facility] [place] [facility] CBC AND DIFF (AUTO) EOSINOPHIL S [#/VOLUME] IN BLOOD BY AUTOMATED COUNT 0.18 10*3/uL 0.03 - 0.44 04/07 Specimen Type: BLOOD No comment entered. Ordering Provider: JAMILA BARRON Report Released Date/Time: Apr 04, 2024 05:53 PM Reporting Lab: [facility] [place] [address] [address] Performing Lab: [facility] [place] [address] [address] [facility] [place] [facility] CBC AND DIFF (AUTO) BASOPHILS [#/VOLUME] IN BLOOD BY AUTOMATED COUNT 0.05 10*3/uL 0.01 - 0.13 04/07 Specimen Type: BLOOD No comment entered. Ordering Provider: JAMILA BARRON Report Released Date/Time: Apr 04, 2024 05:53 PM Reporting Lab: [facility] [place] [address] [address] Performing Lab: [facility] [place] [address] [address] [facility] [place] [facility] [facility] CBC AND DIFF (AUTO) IMMATURE GRANULOCYT ES/100 LEUKOCYTES IN BLOOD BY AUTOMATED COUNT 0.5 0.0 - 0.7 04/07 Specimen Type: BLOOD No comment entered. Ordering Provider: JAMILA BARRON Report Released Date/Time: Apr 04, 2024 05:53 PM Reporting Lab: [facility] [place] [address] [address] Performing Lab: [facility] [place] [address] [address] [facility] [place] [facility] CBC AND DIFF (AUTO) IMMATURE GRANULOCYT ES [#/VOLUME] IN BLOOD 0.04 10*3/uL 0.00 - 0.06 04/07 Specimen Type: BLOOD No comment entered. Ordering Provider: JAMILA BARRON Report Released Date/Time: Apr 04, 2024 05:53 PM Reporting Lab: [facility] [place] [address] [address] Performing Lab: [facility] [place] [address] [address] [facility] [place] [facility] CBC AND DIFF (AUTO) NRBC % 0.0 0.0 - 0.0 04/07 Specimen Type: BLOOD No comment entered. Ordering Provider: JAMILA BARRON Report Released Date/Time: Apr 04, 2024 05:53 PM Reporting Lab: [facility]ITALTRN [address] [address] Performing Lab: [facility] [place] [address] [address] [facility] [place] [facility] CBC AND DIFF (AUTO) NRBC, ABS 0.00 10*3/uL 0.00 - 0.00 04/07 Specimen Type: BLOOD No comment entered. Ordering Provider: JAMILA BARRON Report Released Date/Time: Apr 04, 2024 05:53 PM Reporting Lab: [facility] [place] [address] [address] Performing Lab: [facility] [place] [address] [address] [facility] [place] [facility] LIPID PANEL FASTING CHOLESTERO L [MASS/VOLU ME] IN SERUM OR PLASMA 139 mg/dL 04/07 Specimen Type: SERUM No comment entered. Ordering Provider: JAMILA BARRON Report Released Date/Time: Apr 04, 2024 05:53 PM Reporting Lab: [facility]ITALTRN [facility]USE[address] [address] Performing Lab: [facility] [address] [address] [facility] [place] [facility] LIPID PANEL FASTING TRIGLYCERI DE [MASS/VOLU ME] IN SERUM OR PLASMA 136 mg/dL 0 - 150 04/07 Specimen Type: SERUM No comment entered. Ordering Provider: JAMILA BARRON Report Released Date/Time: Apr 04, 2024 05:53 PM Reporting Lab: [facility] [place] [address] [address] Performing Lab: [facility] [place] [facility] [address] [facility] [address] [facility] [place] [facility] LIPID PANEL FASTING CHOLESTERO L IN LDL [MASS/VOLU ME] IN SERUM OR PLASMA BY CALCULATIO N 72 mg/dL 0 - 129 04/07 Specimen Type: SERUM No comment entered. Ordering Provider: JAMILA BARRON Report Released Date/Time: Apr 04, 2024 05:53 PM Reporting Lab: [facility] [place] [address] [address] Performing Lab: [facility] [place] [address] [address] [facility] [place] [facility] LIPID PANEL FASTING CHOLESTERO L.TOTAL/CH OLESTEROL IN HDL [MASS RATIO] IN SERUM OR PLASMA 3.5 04/07 Specimen Type: SERUM No comment entered. Ordering Provider: JAMILA BARRON Report Released Date/Time: Apr 04, 2024 05:53 PM Reporting Lab: [facility] [place] [address] [address] Performing Lab: [facility] [place] [address] [address] [facility] [place] [facility] LIPID PANEL FASTING CHOLESTERO L IN HDL [MASS/VOLU ME] IN SERUM OR PLASMA 40 mg/dL 40 - 60 04/07 Specimen Type: SERUM No comment entered. Ordering Provider: JAMILA BARRON Report Released Date/Time: Apr 04, 2024 05:53 PM Reporting Lab: [facility] [place] [facility] [address] [facility] [address] Performing Lab: [facility] [place] [facility] [address] [facility] [address] [facility] [place] [facility] URINALYS IS CLEAN CATCH COLOR OF URINE Yellow 04/07 Specimen Type: URINE Comment: If Glucose = >500 and Ketones are positive, please alert the Physician. Ordering Provider: JAMILA BARRON Report Released Date/Time: Apr 04, 2024 05:53 PM Reporting Lab: [facility] [place] [facility] [address] [facility] [address] Performing Lab: [facility] [place] [address] [address] [facility] [place] [facility] URINALYS IS CLEAN CATCH APPEARANCE OF URINE Clear 04/07 Specimen Type: URINE Comment: If Glucose = >500 and Ketones are positive, please alert the Physician. Ordering Provider: JAMILA BARRON Report Released Date/Time: Apr 04, 2024 05:53 PM Reporting Lab: [facility] [place] [address] [address] Performing Lab: [facility] [place] [address] [address] [facility] [place] [facility] URINALYS IS CLEAN CATCH GLUCOSE [MASS/VOLU ME] IN URINE Normalmg /dL 04/07 Specimen Type: URINE Comment: If Glucose = >500 and Ketones are positive, please alert the Physician. Ordering Provider: JAMILA BARRON Report Released Date/Time: Apr 04, 2024 05:53 PM Reporting Lab: [facility] [place] [address] [address] Performing Lab: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 Diagnos is: ICD-10- CM I10 Essenti al (primar y) hyperte nsRICO Savage RD 04/13 [facility] Out[facility] Encounter [id number] 04/14 [facility] Out[facility] Encounter [id number] 04/17 [facility] Out[facility] Encounter [id number] 04/23 [facility] Out[facility] Encounter [id number]/24 [facility] OFFICE O/P EST MOD 30 MIN [id number] Diagnos is: ICD-10- CM 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 RANCHO RODRIGUEZ 04/28 [facility] CONFORMITY EVALUATION [id number] Diagnos is: ICD-10- CM Z46.1 Encount er for fitting and adjustm ent of hearing aid Yossi HARRINGTON 05/05 [facility] Out[facility] Encounter [id number] 05/08 [facility] Out[facility] Encounter [id number] 05/27 [facility] Out[facility] Encounter [id number] 06/01 [facility] Out[facility] Encounter [id number] 06/03 [facility] Out[facility] Encounter [id number] 06/06 [facility] Out[facility] Encounter [id number] 06/15 [facility] Out[facility] Encounter [id number]/16 [facility] Out[facility] Encounter [id number] 06/19 [facility] Out[facility] Encounter [id number] 06/25 [facility] Out[facility] Encounter [id number] 06/25 [facility] Out[facility] Encounter [id number] 06/26 [facility] Out[facility] Encounter [id number] 07/02 [facility] Out[facility] Encounter [id number] 07/06 [facility] Out[facility] Encounter [id number]/14 [facility] Out[facility] Encounter [id number] 07/14 [facility] Out[facility] Encounter [id number] 07/14 [facility] Out[facility] Encounter [id number] 07/16 [facility] Out[facility] Encounter [id number] 07/20 [facility] Out[facility] Encounter [id number] 08/06 [facility] Out[facility] Encounter [id number] 08/17 [facility] Out[facility] Encounter [id number] 08/24 [facility] Out[facility] Encounter [id number] 08/27 [facility] OFFICE O/P EST MOD 30 MIN [id number] Diagnos is: ICD-10- CM 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, hole, or pseudoh ole, right eye CALDERON,LACE Y J 09/01 [facility] Out[facility] Encounter [id number] 09/02 [facility] Out[facility] Encounter [id number] 09/23 [facility] Out[facility] Encounter [id number] 09/25 [facility] Out[facility] Encounter [id number] 09/28 [facility] Out[facility] Encounter [id number] 09/28 [facility] Outpatient Encounter [id number] 09/30 [facility] Outpatient Encounter [id number] 10/04 [facility] Outpatient Encounter [id number] 10/11 [facility] Social History Combined list of available smoking, tobacco, and other social history from Department of Defense and Veterans Affairs facilities. Social History Type Response Date Comment Sour e Tobacco smoking status NHIS VA-TOBACCO QUIT 15 YRS OR MORE 10/16/2023 [facility] History of tobacco use VA-TOBACCO FORMER USER 10/16/2023 [facility] History of tobacco use VA-TOBACCO FORMER USER 07/04/2022 [facility] History of tobacco use NSG NO TOBACCO USE PAST 30 DAYS 03/27/2022 [place] History of tobacco use NSG NO TOBACCO USE PAST 30 DAYS 03/05/2022 [place] History of tobacco use NSG NO TOBACCO USE PAST 30 DAYS 03/02/2022 [place] History of tobacco use VA-TOBACCO FORMER USER 06/28/2021 [facility] History of tobacco use VA-TOBACCO FORMER USER 05/26/2020 [facility] History of tobacco use VA-TOBACCO NEVER USED 05/23/2018 [facility] Plan of Care List of future care activities from Department of Veterans Affairs facilities. Additional future care activities may be listed in the Assessment and Plan section. Date/Time Care Activity Care Activity Detail Facili ty 10/28/2024 AMBULATORY - MEDICINE AMBULATORY - MEDICI [facility] Advance Directives List of completed, amended, or rescinded Advance Directives on record at Department of Veterans Affairs facilities. An actual copy of the Directive is not included. Date Advance Directive Provider Source 02/19/2022 ADVANCE DIRECTIVE JOCE CASTORENA [facility] 11/16/2020 ADVANCE DIRECTIVE BYRON BARRON [facility]
== END 2024-10-14 10:39 | disposition home or self-care (01) ==
LOC: HO.HVNA 10:38
PROVIDERS: Visit Provider Internal Medicine
DX: M00.9 Pyogenic arthritis, unspecified (principal)
CPT/HCPCS: 36415; 82565; 84520; 85025; 86140

== ENCOUNTER 2024-10-21 13:04 | Outpatient (REF) | payer OTHER, SELFPAY ==
--- NOTE | ~2024-10-21 | XR_ITS ---
EXAMINATION: XR ANKLE 3 OR MORE VIEWS LEFT HISTORY: M25.572 - Pain in left ankle and joints of left foot COMPARISON: Comparison is made with the prior examination dated 09/03/2024. FINDINGS: Three views of the left ankle are submitted. There has been interval removal of the fixation hardware along the distal fibula and on the medial malleolus. There is diffuse osteopenia. This appears improved from the prior study, however. There is persistent irregularity of the tibiotalar joint, compatible with the sequela of septic arthritis as seen on MRI 09/17/2024. The soft tissues are unremarkable. XR/XR ankle LT min 3V IMPRESSION: Interval removal of internal fixation hardware. Marked osteopenia with findings consistent with the sequela of septic arthritis as described. Electronically signed by: Chuy Rosenthal MD 10/22/2024 07:07 AM EDT
--- OUTSIDE RECORDS SUMMARY | 2024-10-21 15:07 | XMS_ITS ---
Author Organization [facility] Address [address] [place] [address] Care Team Providers Care Collection Systems Foreman Name Role Phone Josue Simmons MD Primary Care Provider Unavailab Lyn Damico [phone] REASON FOR VISIT [employer]ARY [employer] [facility] Entered Encounters Encounter Location Date Provider Diagnosis [facility] [address] [place] [address] 03/12/2024 Lyn Lund Plan Of Treatment No Information Progress Notes * Reed MALLORY HDOB:1940 (83 yo M)Acc No.[id number]:03/12/2024 Patient:?Reed Mallory :1940???Age:83 Y???Sex:Male Address:[address] [place] [id number] * true * Date:? Generated for Printi ng/Famichaelg/eTransmitting on:?10/21/2024 11:21 AM EDT
--- OUTSIDE RECORDS SUMMARY | 2024-10-21 15:08 | XMS_ITS | Encounter Summary ---
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 Organization [facility] Address [address] [place] [id number] Care Team Providers Care Ceramic Maker Demonstrator Name Role Phone BYRON BARRON Primary Care [...] Dec 19, 2007 MEDICAR E SUPPLEM E [id number] [place]DIA HUERTA UL PATIENT [employer] MEDICARE SUPPLEMEN YORDAN Dec 19, 2007 MEDICAR E SUPPLEM E [id number] [place]DIA HUERTA UL PATIENT [employer] [place] MEDICARE SUPPLEMEN YORDAN BANKE RS Dec 19, 2007 NONE [id number] [place]ERT[place] UL PATIENT MEDICARE (WNR) MEDICARE (M) PART B Oct 13, 2006 PART B [id number] [phone] [place]ERT[place] UL PATIENT MEDICARE (WNR) MEDICARE (M) PART B Oct 13, 2006 PART B [id number] [place] UL PATIENT MEDICARE (WNR) MEDICARE (M) PART B Oct 13, 2006 PART B [id number] [place] UL PATIENT MEDICARE (WNR) MEDICARE (M) PART B Oct 13, 2006 PART B [id number] [place] UL PATIENT MEDICARE (WNR) MEDICARE (M) PART A Sep 13, 2003 PART A [id number] [phone] [place] HUERT[place] UL PATIENT MEDICARE (WNR) MEDICARE (M) PART A Sep 13, 2003 PART A [id number] [phone] [place]IA HUERTA UL PATIENT MEDICARE (WNR) MEDICARE (M) PART A Sep 13, 2003 PART A [id number] [phone] [place] HUERT[place] PATIENT MEDICARE (WNR) MEDICARE (M) PART A Sep 13, 2003 PART A [id number] [phone] [place]DIA HUERTA PATIENT Selected Encounter This section includes the information on record at [place] for the Encounter. Date/Time Encounter Type Encounter Description Reason Pro vider Source IHE Encounter Template Text not used by [place] Advance Directives: All historical and current Section Date Range: From patient's date of to the date document was created. This section includes ALL of a patient's completed or amended [place] Advance and Rescinded Directives. The entries below indicate that a directive exists for the patient, but an actual copy is not included with this document. The data comes from all [place] facilities. Date Advance Directives Provider Source Feb 19, 2022 ADVANCE DIRECTIVE JOCE CASTORENA [facility] November 16, 2020 ADVANCE DIRECTIVE BYRON BARRON [facility]
--- OUTSIDE RECORDS SUMMARY | 2024-10-21 15:08 | XMS_ITS ---
Author Organization [facility] Address [address] [place] [address] Care Team Providers Care Services Delivery Driver Name Role Phone Josue Simmons MD Primary Care Provider UnavailLyn Main [phone] REASON FOR VISIT 04/23/24 Encounters Encounter Location Date Provider Diagnosis [facility] [address] [place] [address] 04/02/2024 Lyn Lund Plan Of Treatment No Information Progress Notes * Reed MALLORY HDOB:1940 (83 yo M)Acc No.[id number]:04/02/2024 Patient:?Reed Mallory :1940???Age:83 Y???Sex:Male Address:[address] [place] [id number] * true * Date:? Generated for Printi ng/Famichaelg/eTransmitting on:?10/21/2024 11:21 AM EDT
--- OUTSIDE RECORDS SUMMARY | 2024-10-21 15:08 | XMS_ITS ---
Author Organization [facility] Address [address] [place] [address] Care Team Providers Care Chairman & Ceo Name Role Phone Josue Simmons MD Primary Care Provider Unavailab melinda Lyn Lund Unavailable [phone] Allergies Allergen (clinical drug ingredient) Drug/Non Drug [...] 04/23/2024 Encounters Encounter Location Date Provider Diagnosis [facility] [address] [place] [address] 04/23/2024 Lyn Lund Plan Of Treatment No Information Progress Notes * Reed MALLORY HDOB:1940 (84 yo M)Acc No.[id number]:04/23/2024 Progress Notes Patient:Reed VANCE Provider:?Lyn Lund DPM :1940???Age:83 Y???Sex:Male Chu e:04/23/2024 Address:[address] [place], [place] [id number] Pcp:Josue Simmons MD Subjective: * Chief Complaints: [...] Lund DPM Date:?2023 Generated for Yokasta palacios/Ilda/Sunil on:?10/21/2024 11:21 AM EDT
--- OUTSIDE RECORDS SUMMARY | 2024-10-21 15:09 | XMS_ITS | Continuity of Care Document ---
Author Name [facility] Organization [facility] Care Team Providers Care Manager Call Name Role Phone [facility] Unavailable Unavailable Problems Combined list of problems from Department of Defense and Veterans Affairs facilities. It does not include entries that were removed or entered in error. Problem Status Onset Date Problem Type Date of Resolution Comments Source Chronic dermatitis Active 023 Condition Oct 05, 2022 Entered By: BYRON BARRON Comment: referred to dermatology [facility] Chest Pain (SCT [id number]) Active Condition Jan 02, 2022 Entered By: BYRON BARRON Comment: ordered stress test [facility] COPD - Chronic Obstructive Pulmonary Disease (SCT [id number]) Active Condition Dec 28, 2021 Entered By: BYRON BARRON Comment: on inhalers [facility] Cataract Active Condition Oct 12, 2020 Entered By: BYRON BARRON Comment: referred for surgery [facility] HTN - Hypertension (SCT [id number]) Active Condition Oct 21, 2020 Entered By: BYRON BARRON Comment: treated witn medication [facility] Hypercholesterolemia (SCT [id number]) Active Condition Oct 21, 2020 Entered By: [...] of uncertain behavior of skin Active Diagnosis [facility] Diagnosis: ICD-10-CM Z13.89 Encounter for screening for other disorder Active Diagnosis [facility] Diagnosis: ICD-10-CM R21 Rash and other nonspecific skin eruption Active Diagnosis [facility] Diagnosis: ICD-10-CM Z23 Encounter for [...] WITH GRAPEFRU IT JUICE ORAL ACTIVE 12/24/2024 [id number] MLAPADandy,TH EODORE K 2024 90 [facility] AMOXICILLIN TRIHYDRATE 875MG/CLAVU LANATE K 125MG TAB TAKE 1 TABLET BY MOUTH TWICE DAILY FOR INFECTIO N ORAL 11/15/2023 [id number] MAUREEN BARRON PAIGE D 2023 20 [facility] ASPIRIN 81MG TAB,CHEWABL E CHEW ONE TABLET BY MOUTH ONCE DAILY ORAL ACTIVE JANINE HAMMOND R 2021 [facility] ATORVASTATI N CA 80MG TAB TAKE ONE TABLET BY MOUTH AT BEDTIME ORAL DISCONT INUED BY PROVIDE R 06/26/2025 [id number] 5 MAUREEN BARRON PAIGE D 2023 90 [facility] ATORVASTATI N CA 80MG TAB TAKE ONE TABLET BY MOUTH AT BEDTIME ORAL DISCONT INUED 06/19/2024 [id number] MOHAMUD ARGUETA AV 2022 90 [facility] CARBOXYMETH YLCELLULOSE NA 0.5% SOLN,OPH INSTILL 1 DROP INTO EACH EYE FOUR TIMES A DAY FOR DRY EYE OPHTHA LMIC ACTIVE 09/02/2025 [id number] CALDERON,LAC EY J 2024 45 [facility] CEPHALEXIN 500MG CAP TAKE ONE CAPSULE BY MOUTH EVERY 8 HOURS FOR INFECTIO N ORAL 04/04/2024 [id number] 4 MAMTA STERN 2023 21 [facility] DOCUSATE NA 100MG CAP TAKE ONE CAPSULE BY MOUTH TWICE DAILY FOR 7 DAYS TO SOFTEN STOOL ORAL ACTIVE 10/25/2024 [id number] 5 MISA CANTU- NERI 2024 14 [facility] EYELID CLEANSER,EY E SCRUB PAD USE 1 PAD TOPICALL Y EVERY MORNING BLEPHARI TIS TOPICA L ACTIVE 09/02/2025 [id number] 5 OSBALDO CALDERON EY J 2024 90 [facility] EZETIMIBE 10MG TAB TAKE ONE TABLET BY MOUTH ONCE DAILY TO LOWER CHOLESTE ROL ORAL ACTIVE 06/26/2025 [id number] 5 MAUREEN BARRON PAIGE D 2023 90 [facility] EZETIMIBE 10MG TAB TAKE ONE TABLET BY MOUTH ONCE DAILY TO LOWER CHOLESTE ROL ORAL DISCONT INUED 06/19/2024 [id number] KENDALL,MOHAMUD AV 2022 90 [facility] HYDROCHLORO THIAZIDE 25MG TAB TAKE ONE TABLET BY MOUTH ONCE DAILY ORAL ACTIVE 12/24/2024 [id number] 5 VAILRAJI HLEY M 2024 90 [facility] HYDROCHLORO THIAZIDE 25MG TAB TAKE ONE TABLET BY MOUTH ONCE DAILY ORAL 06/19/2024 [id number] KENDALL,MOHAMUD AV 2023 90 [facility] METOPROLOL SUCCINATE 50MG TAB,SA TAKE ONE TABLET BY MOUTH ONCE DAILY FOR BLOOD PRESSURE /HEART ORAL ACTIVE 06/26/2025 [id number] 5 MAUREEN BARRON PAIGE D 2023 90 [facility] METOPROLOL SUCCINATE 50MG TAB,SA TAKE ONE TABLET BY MOUTH ONCE DAILY FOR BLOOD PRESSURE /HEART ORAL DISCONT INUED 06/19/2024 [id number] KENDALL,MOHAMUD AV 2022 90 [facility] OXYCODONE HCL 5MG TAB TAKE ONE TABLET BY MOUTH EVERY 4 HOURS NEEDED FOR PAIN ORAL ACTIVE 10/25/2024 [id number] 5 MISA CANTU- NERI 2024 42 [facility] TRIAMCINOLO NE ACETONIDE 0.1% CREAM,TOP APPLY A MODERATE AMOUNT TOPICALL Y TWICE DAILY NEEDED FOR ITCHING TOPICA L ACTIVE 10/24/2024 [id number] 4 MAUREEN BARRON D 2023 [facility] Allergies, Adverse Reactions, Alerts Combined list of allergies from Department of Defense and Veterans Affairs facilities. It does not include entries that were removed or entered in error. Substance Category Reaction Severity Reaction type Status Date Reported Comments Source LIDOCAINE Propensity to adverse reactions to drug (finding) Itching MODERATE active 2 [facility] NOVOCAIN Propensity to adverse reactions to drug (finding) Feeling agitated active [facility] PROCAINE Propensity to adverse reactions to drug (finding) active 2 [facility] Immunizations Combined list of available immunizations from the Department of Defense and Veterans Affairs facilities. 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 Comments Source COVID-19 (MODERNA), MRNA, LNP-S, PF, 50 MCG/0.5 ML (AGES 12+ YEARS) 7 2023 ALMA MAHER LEFT DELTO ID [id number] 312 [facility] INFLUENZA, HIGH-DOSE, TRIVALENT, PF 2023 ALMA MAHER LEFT DELTO ID [id number] 135 [facility] RSV, BIVALENT, PROTEIN SUBUNIT RSVPREF, DILUENT RECONSTITUTED , 0.5 ML, PF 1 2023 GRETCHEN ANDRADE LEFT DELTO ID [id number] 305 complet [facility] COVID-19 (MODERNA), MRNA, LNP-S, PF, 50 MCG/0.5 ML (AGES 12+ YEARS) 1 2023 GRETCHEN ANDRADE E LEFT DELTO ID [id number] 312 [facility] INFLUENZA, HIGH-DOSE, QUADRIVALENT 2022 JERRI SHAIKH M LEFT DELTO ID [id number] 197 complet ed [facility] [place] COVID-19 (MODERNA), MRNA, LNP-S, BIVALENT BOOSTER, PF, 50 MCG/0.5 ML OR 25MCG/0.25 ML DOSE 2021 JERRI SHAIKH LEFT DELTO ID [id number] 229 complet ed [facility] INFLUENZA VACCINE, QUADRIVALENT, ADJUVANTED 2021 205 complet ed [facility] COVID-19 (MODERNA), MRNA, LNP-S, PF, 100 MCG/0.5ML DOSE OR 50 MCG/0.25ML DOSE 3 2021 207 complet ed MOD; [id number] ; 2 [facility] PNEUMOCOCCAL CONJUGATE PCV20, POLYSACCHARID E FLU633 CONJUGATE, ADJUVANT, PF 2021 216 complet ed [facility] COVID-19 (MODERNA), MRNA, LNP-S, PF, 100 MCG OR 50 MCG DOSE 3 2020 207 complet ed MOD; [id number]; 2 [facility] INFLUENZA, UNSPECIFIED FORMULATION 2020 88 complet ed [facility] TDAP 2020 115 complet ed [facility] COVID-19 (MODERNA), MRNA, LNP-S, PF, 100 MCG/0.5 ML DOSE 2 2020 207 complet ed MOD; [id number]; 1 [facility] COVID-19 (MODERNA), MRNA, LNP-S, PF, 100 MCG/0.5 ML DOSE 1 2020 207 complet ed MOD; [id number]; 1 [facility] [...] DOSE SEASONAL 2017 135 complet ed Partner: [facility]. Administe red by: ARLET BOLTON (IMR=[phone]). Partner 0 Lot#: [id number] Mfr: Sanofi Pasteur; Dosage: 0.5 [facility] [place] PNEUMOCOCCAL POLYSACCHARID E PPV23 2016 33 complet ed [facility] Administe red by: ARLET BOLTON (FVL=[phone]). Partner 0 Lot#: [id number] Mfr: Merck; Dosage: 0.5 [facility] [place] INFLUENZA, HIGH DOSE SEASONAL 2016 135 complet ed [facility] Administe red by: ARLET BOLTON (LDS=[phone]). Partner 0 Lot#: [id number] Mfr: Sanofi Pasteur; Dosage: 0.5 [facility] [place] [facility] Results Combined list of recent chemistry, [...] Apr 04, 2024 05:53 PM Reporting Lab: [facility] [address] Performing Lab: [facility] [address] [facility] LIVER FUNCTION ALBUMIN [MASS/VOLU ME] IN SERUM OR PLASMA 4.0 g/dL 3.5 - 5.0 04/07 Specimen Type: SERUM No comment entered. Ordering Provider: JAMILA BARRON Report Released Date/Time: Apr 04, 2024 05:53 PM Reporting Lab: [facility] [place] [facility] [address] [facility] [address] Performing Lab: [facility] [place] [facility] [address] [facility] [address] [facility] [place] [facility] LIVER FUNCTION ALKALINE PHOSPHATAS E [ENZYMATIC ACTIVITY/V OLUME] IN SERUM OR PLASMA 118 U/L 40 - 150 04/07 Specimen Type: SERUM No comment entered. Ordering Provider: JAMILA BARRON Report Released Date/Time: Apr 04, 2024 05:53 PM Reporting Lab: [facility] [place] [address] [address] Performing Lab: [facility] [place] [address] [address] [facility] LIVER FUNCTION ASPARTATE AMINOTRANS FERASE [ENZYMATIC ACTIVITY/V OLUME] IN SERUM OR PLASMA 30 U/L 5 - 34 04/07 Specimen Type: SERUM No comment entered. Ordering Provider: JAMILA BARRON Report Released Date/Time: Apr 04, 2024 05:53 PM Reporting Lab: [facility] [place] [address] [address] Performing Lab: [facility] [place] [address] [address] [facility] [place] [facility] LIVER FUNCTION ALANINE AMINOTRANS FERASE [ENZYMATIC ACTIVITY/V OLUME] IN SERUM OR PLASMA 23 U/L 04/07 Specimen Type: SERUM No comment entered. Ordering Provider: JAMILA BARRON Report Released Date/Time: Apr 04, 2024 05:53 PM Reporting Lab: [facility] [place] [address] [address] Performing Lab: [facility] [place] [address] [address] [facility] LIVER FUNCTION BILIRUBIN. TOTAL [MASS/VOLU ME] IN SERUM OR PLASMA 1.0 mg/dL 0.2 - 1.2 04/07 Specimen Type: SERUM No comment entered. Ordering Provider: JAMILA BARRON Report Released Date/Time: Apr 04, 2024 05:53 PM Reporting Lab: [facility] [address] Performing Lab: [facility] [address] [facility] BASIC METABOLI C PANEL (fasting ) UREA NITROGEN [MASS/VOLU ME] IN SERUM OR PLASMA 22 mg/dL 7 - 25 04/07 Specimen Type: SERUM No comment entered. Ordering Provider: JAMILA BARRON Report Released Date/Time: Apr 04, 2024 05:53 PM Reporting Lab: [facility] [address] [address] Performing Lab: [facility] [address] [facility] BASIC METABOLI C PANEL (fasting ) GLUCOSE [MASS/VOLU ME] IN SERUM OR PLASMA 93 mg/dL 65 - 100 04/07 Specimen Type: SERUM No comment entered. Ordering Provider: JAMILA BARRON Report Released Date/Time: Apr 04, 2024 05:53 PM Reporting Lab: [facility] [address] Performing Lab: [facility] [address] [facility] BASIC METABOLI C PANEL (fasting ) SODIUM [MOLES/VOL UME] IN SERUM OR PLASMA 139 mmol/L 135 - 145 04/07 Specimen Type: SERUM No comment entered. Ordering Provider: JAMILA BARRON Report Released Date/Time: Apr 04, 2024 05:53 PM Reporting Lab: [facility] [address] Performing Lab: [facility] [address] [facility] BASIC METABOLI C PANEL (fasting ) POTASSIUM [MOLES/VOL UME] IN SERUM OR PLASMA 3.9 mmol/L 3.5 - 5.0 04/07 Specimen Type: SERUM No comment entered. Ordering Provider: JAMILA BARRON Report Released Date/Time: Apr 04, 2024 05:53 PM Reporting Lab: [facility] [place] [address] [address] Performing Lab: [facility] [address] [facility] BASIC METABOLI C PANEL (fasting ) CHLORIDE [MOLES/VOL UME] IN SERUM OR PLASMA 102 mmol/L 100 - 110 04/07 Specimen Type: SERUM No comment entered. Ordering Provider: JAMILA BARRON Report Released Date/Time: Apr 04, 2024 05:53 PM Reporting Lab: [facility] [place] [address] [address] Performing Lab: [facility] [address] [facility] BASIC METABOLI C PANEL (fasting ) CARBON DIOXIDE, TOTAL [MOLES/VOL UME] IN SERUM OR PLASMA 26 meq/L 20 - 30 04/07 Specimen Type: SERUM No comment entered. Ordering Provider: JAMILA BARRON Report Released Date/Time: Apr 04, 2024 05:53 PM Reporting Lab: [facility] [place] [address] [address] Performing Lab: [facility] [address] [facility] BASIC METABOLI C PANEL (fasting ) CREATININE [MASS/VOLU ME] IN SERUM OR PLASMA 0.92 mg/dL 0.50 - 1.40 04/07 Specimen Type: SERUM No comment entered. Ordering Provider: JAMILA BARRON Report Released Date/Time: Apr 04, 2024 05:53 PM Reporting Lab: [facility] [place] [facility] [address] [facility] [address] Performing Lab: [facility] [place] [facility] [address] [facility] [address] [facility] BASIC METABOLI C PANEL (fasting ) GLOMERULAR FILTRATION RATE/1.73 SQ M.PREDICTE D [VOLUME RATE/AREA] IN SERUM, PLASMA OR BLOOD BY CREATININE -BASED FORMULA (CKD-EPI 2020) 82 mL/min 60 04/07 Specimen Type: SERUM No comment entered. Ordering Provider: JAMILA BARRON Report Released Date/Time: Apr 04, 2024 05:53 PM Reporting Lab: [facility] [place] [facility] [address] [facility] [address] Performing Lab: [facility] [place] [facility] [address] [facility] [address] [facility] TSH THYROTROPI N [UNITS/VOL UME] IN SERUM OR PLASMA 2.34 u[IU]/mL 0.35 - 5.00 04/07 Specimen Type: SERUM No comment entered. Ordering Provider: JAMILA BARRON Report Released Date/Time: Apr 04, 2024 05:53 PM Reporting Lab: [facility] [place] [facility] [address] [facility] [address] Performing Lab: [facility] [place] [facility] [address] [facility] [address] [facility] LIPID PANEL FASTING CHOLESTERO L [MASS/VOLU ME] IN SERUM OR PLASMA 139 mg/dL 04/07 Specimen Type: SERUM No comment entered. Ordering Provider: JAMILA BARRON Report Released Date/Time: Apr 04, 2024 05:53 PM Reporting Lab: [facility] [place] [facility] [address] [facility] [address] Performing Lab: [facility] [place] [facility] [address] [facility] [address] [facility] LIPID PANEL FASTING TRIGLYCERI DE [MASS/VOLU ME] IN SERUM OR PLASMA 136 mg/dL 0 - 150 04/07 Specimen Type: SERUM No comment entered. Ordering Provider: JAMILA BARRON Report Released Date/Time: Apr 04, 2024 05:53 PM Reporting Lab: [facility] [place] [facility] [address] [facility] [address] Performing Lab: [facility] [place] [facility] [address] [facility] [address] [facility] [place] LIPID PANEL FASTING CHOLESTERO L IN LDL [MASS/VOLU ME] IN SERUM OR PLASMA BY CALCULARJO N 72 mg/dL 0 - 129 04/07 Specimen Type: SERUM No comment entered. Ordering Provider: JAMILA BARRON Report Released Date/Time: Apr 04, 2024 05:53 PM Reporting Lab: [facility] [place] [facility] [address] [facility] [address] Performing Lab: [facility] [place] [address] [address] [facility] [place] [facility] LIPID PANEL FASTING CHOLESTERO L.TOTAL/CH OLESTEROL IN HDL [MASS RATIO] IN SERUM OR PLASMA 3.5 04/07 Specimen Type: SERUM No comment entered. Ordering Provider: JAMILA BARRON Report Released Date/Time: Apr 04, 2024 05:53 PM Reporting Lab: [facility] [place] [address] [address] Performing Lab: [facility] [place] [facility] [address] [facility] [address] [facility] LIPID PANEL FASTING CHOLESTERO L IN HDL [MASS/VOLU ME] IN SERUM OR PLASMA 40 mg/dL 40 - 60 04/07 Specimen Type: SERUM No comment entered. Ordering Provider: JAMILA BARRON Report Released Date/Time: Apr 04, 2024 05:53 PM Reporting Lab: [facility] [place] [facility] [address] [facility] [address] Performing Lab: [facility] [place] [facility] [address] [facility] [address] [facility] CBC AND DIFF (AUTO) LEUKOCYTES [#/VOLUME] IN BLOOD BY AUTOMATED COUNT 7.77 10*3/uL 4.50 - 11.00 04/07 Specimen Type: BLOOD No comment entered. Ordering Provider: JAMILA BARRON Report Released Date/Time: Apr 04, 2024 05:53 PM Reporting Lab: [facility] [place] [facility] [address] [facility] [address] Performing Lab: [facility] [place] [facility] [address] [facility] [address] [facility] CBC AND DIFF (AUTO) ERYTHROCYT ES [#/VOLUME] IN BLOOD BY AUTOMATED COUNT 4.29 10*6/uL 4.23 - 5.66 04/07 Specimen Type: BLOOD No comment entered. Ordering Provider: JAMILA BARRON Report Released Date/Time: Apr 04, 2024 05:53 PM Reporting Lab: [facility] [place] [address] [address] Performing Lab: [facility] [place] [address] [address] [facility] CBC AND DIFF (AUTO) HEMOGLOBIN [MASS/VOLU ME] IN BLOOD 14.2 g/dL 12.8 - 17 04/07 Specimen Type: BLOOD No comment entered. Ordering Provider: JAMILA BARRON Report Released Date/Time: Apr 04, 2024 05:53 PM Reporting Lab: [facility] [place] [address] [address] Performing Lab: [facility] [place] [address] [address] [facility] CBC AND DIFF (AUTO) HEMATOCRIT [VOLUME FRACTION] OF BLOOD BY AUTOMATED COUNT 41.1 39.2 - 50.4 04/07 Specimen Type: BLOOD No comment entered. Ordering Provider: JAMILA BARRON Report Released Date/Time: Apr 04, 2024 05:53 PM Reporting Lab: [facility] [place] [address] [address] Performing Lab: [facility] [place] [facility] [address] [facility] [address] [facility] [place] [facility] CBC AND DIFF (AUTO) MCV [ENTITIC VOLUME] BY AUTOMATED COUNT 95.8 fL 82 - 99 04/07 Specimen Type: BLOOD No comment entered. Ordering Provider: JAMILA BARRON Report Released Date/Time: Apr 04, 2024 05:53 PM Reporting Lab: [facility] [place] [facility] [address] [facility] [address] Performing Lab: [facility] [place] [facility] [address] [facility] [address] [facility] [place] [facility] CBC AND DIFF (AUTO) MCHC [MASS/VOLU ME] BY AUTOMATED COUNT 34.5 g/dL 30.8 - 35.1 04/07 Specimen Type: BLOOD No comment entered. Ordering Provider: JAMILA BARRON Report Released Date/Time: Apr 04, 2024 05:53 PM Reporting Lab: [facility] [place] [facility] [address] [facility] [address] Performing Lab: [facility] [place] [facility] [address] [facility] [address] [facility] [place] [facility] CBC AND DIFF (AUTO) PLATELETS [#/VOLUME] IN BLOOD BY AUTOMATED COUNT 184 10*3/uL 140 - 360 04/07 Specimen Type: BLOOD No comment entered. Ordering Provider: JAMILA BARRON Report Released Date/Time: Apr 04, 2024 05:53 PM Reporting Lab: [facility] [place] [facility] [address] [facility] [address] Performing Lab: [facility] [place] [facility] [address] [facility] [address] [facility] [place] [facility] CBC AND DIFF (AUTO) ERYTHROCYT E DISTRIBUTI ON WIDTH [RATIO] BY AUTOMATED COUNT 13.1 12.0 - 16.0 04/07 Specimen Type: BLOOD No comment entered. Ordering Provider: JAMILA BARRON Report Released Date/Time: Apr 04, 2024 05:53 PM Reporting Lab: [facility] [place] [facility] [address] [facility] [address] Performing Lab: [facility] [place] [facility] [address] [facility] [address] [facility] CBC AND DIFF (AUTO) MONOCYTES [#/VOLUME] IN BLOOD BY AUTOMATED COUNT 0.98 10*3/uL 0.30 - 1.10 04/07 Specimen Type: BLOOD No comment entered. Ordering Provider: JAMILA BARRON Report Released Date/Time: Apr 04, 2024 05:53 PM Reporting Lab: [facility] [place] [facility] [address] [facility] [address] Performing Lab: [facility] [place] [address] [address] [facility] [place] [facility] CBC AND DIFF (AUTO) MCH [ENTITIC MASS] BY AUTOMATED COUNT 33.1 pg 26.2 - 32.6 04/07 H Specimen Type: BLOOD No comment entered. Ordering Provider: JAMILA BARRON Report Released Date/Time: Apr 04, 2024 05:53 PM Reporting Lab: [facility] [place] [address] [address] Performing Lab: [facility] [place] [address] [address] [facility] [facility] CBC AND DIFF (AUTO) NEUTROPHIL S/100 LEUKOCYTES IN BLOOD BY AUTOMATED COUNT 52.3 43.7 - 75.8 04/07 Specimen Type: BLOOD No comment entered. Ordering Provider: JAMILA BARRON Report Released Date/Time: Apr 04, 2024 05:53 PM Reporting Lab: [facility] [place] [address] [address] Performing Lab: [facility] [place] [address] [address] [facility] [place] [facility] CBC AND DIFF (AUTO) LYMPHOCYTE S/100 LEUKOCYTES IN BLOOD BY AUTOMATED COUNT 31.7 14.0 - 42.3 04/07 Specimen Type: BLOOD No comment entered. Ordering Provider: JAMILA BARRON Report Released Date/Time: Apr 04, 2024 05:53 PM Reporting Lab: [facility] [place] [facility] [address] [facility] [address] Performing Lab: [facility] [place] [facility] [address] [facility] [address] [facility] [place] [facility] CBC AND DIFF (AUTO) MONOCYTES/ 100 LEUKOCYTES IN BLOOD BY AUTOMATED COUNT 12.6 5.1 - 13.7 04/07 Specimen Type: BLOOD No comment entered. Ordering Provider: JAMILA BARRON Report Released Date/Time: Apr 04, 2024 05:53 PM Reporting Lab: [facility] [place] [facility] [address] [facility] [address] Performing Lab: [facility] [place] [facility] [address] [facility] [address] [facility] CBC AND DIFF (AUTO) EOSINOPHIL S/100 LEUKOCYTES IN BLOOD BY AUTOMATED COUNT 2.3 0.4 - 6.8 04/07 Specimen Type: BLOOD No comment entered. Ordering Provider: JAMILA BARRON Report Released Date/Time: Apr 04, 2024 05:53 PM Reporting Lab: [facility] [address] [facility] [address] Performing Lab: [facility] [place] [facility] [address] [facility] [address] [facility] CBC AND DIFF (AUTO) BASOPHILS/ 100 LEUKOCYTES IN BLOOD BY AUTOMATED COUNT 0.6 0.1 - 2.0 04/07 Specimen Type: BLOOD No comment entered. Ordering Provider: JAMILA BARRON Report Released Date/Time: Apr 04, 2024 05:53 PM Reporting Lab: [facility] [address] [facility] [address] Performing Lab: [facility] [address] [place] [address] [facility] CBC AND DIFF (AUTO) NEUTROPHIL S [#/VOLUME] IN BLOOD BY AUTOMATED COUNT 4.06 10*3/uL 2.20 - 7.60 04/07 Specimen Type: BLOOD No comment entered. Ordering Provider: JAMILA BARRON Report Released Date/Time: Apr 04, 2024 05:53 PM Reporting Lab: [facility] [place] [address] [address] Performing Lab: [facility] [place] [address] [address] [facility] CBC AND DIFF (AUTO) LYMPHOCYTE S [#/VOLUME] IN BLOOD BY AUTOMATED COUNT 2.46 10*3/uL 1.00 - 3.20 04/07 Specimen Type: BLOOD No comment entered. Ordering Provider: JAMILA BARRON Report Released Date/Time: Apr 04, 2024 05:53 PM Reporting Lab: [facility] [place] [address] [address] Performing Lab: [facility] [place] [address] [address] [facility] [place] [facility] CBC AND DIFF (AUTO) EOSINOPHIL S [#/VOLUME] IN BLOOD BY AUTOMATED COUNT 0.18 10*3/uL 0.03 - 0.44 04/07 Specimen Type: BLOOD No comment entered. Ordering Provider: JAMILA BARRON Report Released Date/Time: Apr 04, 2024 05:53 PM Reporting Lab: [facility] [place] [address] [address] Performing Lab: [facility] [place] [address] [address] [facility] CBC AND DIFF (AUTO) BASOPHILS [#/VOLUME] IN BLOOD BY AUTOMATED COUNT 0.05 10*3/uL 0.01 - 0.13 04/07 Specimen Type: BLOOD No comment entered. Ordering Provider: JAMILA BARRON Report Released Date/Time: Apr 04, 2024 05:53 PM Reporting Lab: [facility] [place] [address] [address] Performing Lab: [facility] [address] [facility] [address] [facility] [place] [facility] CBC AND DIFF (AUTO) IMMATURE GRANULOCYT ES/100 LEUKOCYTES IN BLOOD BY AUTOMATED COUNT 0.5 0.0 - 0.7 04/07 Specimen Type: BLOOD No comment entered. Ordering Provider: JAMILA BARRON Report Released Date/Time: Apr 04, 2024 05:53 PM Reporting Lab: [facility] [place] [facility] [address] [facility] [address] Performing Lab: [facility] [place] [address] [address] [facility] [place] [facility] CBC AND DIFF (AUTO) IMMATURE GRANULOCYT ES [#/VOLUME] IN BLOOD 0.04 10*3/uL 0.00 - 0.06 04/07 Specimen Type: BLOOD No comment entered. Ordering Provider: JAMILA BARRON Report Released Date/Time: Apr 04, 2024 05:53 PM Reporting Lab: [facility] [place] [address] [address] Performing Lab: [facility] [place] [address] [address] [facility] [place] [facility] CBC AND DIFF (AUTO) NRBC % 0.0 0.0 - 0.0 04/07 Specimen Type: BLOOD No comment entered. Ordering Provider: JAMILA BARRON Report Released Date/Time: Apr 04, 2024 05:53 PM Reporting Lab: [facility] [place] [address] [address] Performing Lab: [facility] [place] [address] [address] [facility] [place] [facility] CBC AND DIFF (AUTO) NRBC, ABS 0.00 10*3/uL 0.00 - 0.00 04/07 Specimen Type: BLOOD No comment entered. Ordering Provider: JAMILA BARRON Report Released Date/Time: Apr 04, 2024 05:53 PM Reporting Lab: [facility] [place] [address] [address] Performing Lab: [facility] [place] [facility] [address] [facility] [address] [facility] [place] [facility] URINALYS IS CLEAN CATCH COLOR OF URINE Yellow 04/07 Specimen Type: URINE Comment: If Glucose = >500 and Ketones are positive, please alert the Physician. Ordering Provider: JAMILA BARRON Report Released Date/Time: Apr 04, 2024 05:53 PM Reporting Lab: [facility] [place] [facility] [address] [facility] [address] Performing Lab: [facility] [place] [address] [address] [facility] [place] [facility] URINALYS IS CLEAN CATCH APPEARANCE OF URINE Clear 04/07 Specimen Type: URINE Comment: If Glucose = >500 and Ketones are positive, please alert the Physician. Ordering Provider: JAMILA BARRON Report Released Date/Time: Apr 04, 2024 05:53 PM Reporting Lab: [facility] [place] [address] [address] Performing Lab: [facility] [place] [address] [address] [facility] URINALYS IS CLEAN CATCH GLUCOSE [MASS/VOLU ME] IN URINE Normalmg /dL 04/07 Specimen Type: URINE Comment: If Glucose = >500 and Ketones are positive, please alert the Physician. Ordering Provider: JAMILA BARRON Report Released Date/Time: Apr 04, 2024 05:53 PM Reporting Lab: [facility] [place] [address] [address] Performing Lab: [facility] [place] [address] [address] [facility] [place] [facility] URINALYS IS CLEAN CATCH KETONES [MASS/VOLU ME] IN URINE BY TEST STRIP NEGATIVE mg/dL 04/07 Specimen Type: URINE Comment: If Glucose = >500 and Ketones are positive, please alert the Physician. Ordering Provider: JAMILA BARRON Report Released Date/Time: Apr 04, 2024 05:53 PM Reporting Lab: [facility] [address] [facility] [address] Performing Lab: [facility] [address] [facility] [address] [facility] URINALYS IS CLEAN CATCH ERYTHROCYT ES [PRESENCE] IN URINE SEDIMENT BY LIGHT MICROSCOPY NEGATIVE mg/dL 04/07 Specimen Type: URINE Comment: If Glucose = >500 and Ketones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 Encounter [id number] 06/25 [facility] Out[facility] Encounter [id number] 06/25 [facility] Outpatient Encounter [id number] 06/26 [facility] Out[facility] Encounter [id number] 07/02 [facility] Out[facility] Encounter [id number] [facility] Outpatient Encounter [id number] [facility] Out[facility] Encounter [id number] 07/14 [facility] Out[facility] Encounter [id number] 07/14 [facility] Out[facility] Encounter [id number] 07/16 [facility] Out[facility] Encounter [id number] 07/20 [facility] Out[facility] Encounter [id number] 08/06 [facility] Out[facility] Encounter [id number] 08/17 [facility] Out[facility] Encounter [id number] 08/24 [facility] Out[facility] Encounter [id number] 08/27 [facility] OFFICE O/P EST MOD 30 MIN [id number] Diagnos is: ICD-10- CM 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, hole, or pseudoh ole, right eye CALDERON,LACE Y J 09/01 [facility] Out[facility] Encounter [id number] 09/02 [facility] Out[facility] Encounter [id number] 09/22 [facility] Out[facility] Encounter [id number] 09/23 [facility] Out[facility]counter [id number] 09/24 [facility] Out[facility] Encounter [id number] 09/25 [facility] Out[facility] Encounter [id number] 09/28 [facility] Out[facility] Encounter [id number] 09/28 [facility] Out[facility] Encounter [id number] 09/30 [facility] Out[facility] Encounter [id number] 10/04 [facility] Outpatient Encounter [id number] 10/11 [facility] Out[facility] Encounter [id number] 10/15 [facility] Out[facility] Encounter [id number] 10/15 [facility] Social History Combined list of available smoking, tobacco, and other social history from Department of Defense and Veterans Affairs facilities. Social History Type Response Date Comment [facility] e Tobacco smoking status NHIS VA-TOBACCO FORMER USER 10/16/2023 [facility] History of tobacco use NV-TOBACCO QUIT 15 YRS OR MORE 10/16/2023 [facility] History of tobacco use VA-TOBACCO FORMER USER 07/04/2022 [facility] History of tobacco use NSG NO TOBACCO USE PAST 30 DAYS 03/27/2022 [facility] History of tobacco use NSG NO TOBACCO USE PAST 30 DAYS 03/05/2022 [facility] History of tobacco use NSG NO TOBACCO USE PAST 30 DAYS 03/02/2022 [facility] History of tobacco use NV-TOBACCO FORMER USER 06/28/2021 [facility] History of tobacco use NV-TOBACCO FORMER USER 05/26/2020 [facility] History of tobacco use NV-TOBACCO NEVER USED 05/23/2018 [facility] Plan of Care List of future care activities from [facility] facilities. Additional future care activities may be listed in the Assessment and Plan section. Date/Time Care Activity Care Activity Detail Facili ty 11/11/2024 AMBULATORY - MEDICINE AMBULATORY - [facility]ICI [facility] Advance Directives List of completed, amended, or rescinded Advance Directives on record at [facility] facilities. An actual copy of the Directive is not included. Date Advance Directive Provider Source 02/19/2022 ADVANCE DIRECTIVE JOCE CASTORENA [facility] 11/16/2020 ADVANCE DIRECTIVE BYRON BARRON [facility]
== END 2024-10-21 13:05 | disposition home or self-care (01) ==
LOC: HO.HOSX 13:04
DX: M25.572 Pain in left ankle and joints of left foot (principal); T84.7XXA Infection and inflammatory reaction due to other internal orthopedic prosthetic devices, implants and grafts, initial encounter
CPT/HCPCS: 73610; 99212

== ENCOUNTER 2024-10-21 13:22 | Outpatient (AMB) | payer OTHER, SELFPAY ==
--- NOTE | 2024-10-21 13:22 | MHC.OFFVIS ---
Intake Visit Reasons: PO LT ankle I&D/SHRUTI 09/22/24 NE Intake Note: Reed is a 83 year old male who presents today post operatively s/p removal of hardware and I&D of left ankle DOS: 09/22/24 w/ Dr Jonnathan Chirinos. On 10/07/24 sutures were removed ad he was advised he can continue to attempt to weight bear in his boot. Patient reports that he is having continued pain, but it is better than prior to surgery. He has been unable to walk, but has been partially weight bearing while standing. He denies numbness and tingling. The lateral incision continues to drain some reddish, yellow fluid. VNA has been dressing with 2x2 and tape. Allergies niacin Allergy (Severe, Verified 10/07/24 14:04) Upset Stomach procaine [From Novocain] Allergy (Severe, Verified 10/07/24 14:04) I GET MEAN simvastatin Adverse Reaction (Severe, Verified 10/07/24 14:04) myopathy HPI HPI PO LT ankle I&D/SHRUTI 09/22/24 NE: Details: Reed is a 83 year old male who presents today post operatively s/p removal of hardware and I&D of left ankle DOS: 09/22/24 w/ Dr Jonnathan Chirinos. On 10/07/24 sutures were removed ad he was advised he can continue to attempt to weight bear in his boot. Patient reports that he is having continued pain, but it is better than prior to surgery. He has been unable to walk, but has been weight bearing while standing. He denies numbness and tingling. The lateral incision continues to drain some reddish, yellow fluid. VNA has been dressing with 2x2 and tape. [facility] Medical History Ankle fracture, lateral malleolus, closed Hyperlipidemia HTN (hypertension) CAD (coronary artery disease) Murmur, cardiac Chest pain COPD (chronic obstructive pulmonary disease) Asbestosis Surgical History S/P TAVR (transcatheter aortic valve replacement) Stented coronary artery Hx of cardiac catheterization Family History Father CAD (coronary artery disease) Mother No problems noted. Social History Household Members: None Housing: House Are you a primary animal caretaker supervisor to a significant other at home: No Do you presently have visiting nurse or other home services: Yes Comment: pt refusing bed alarm; ongoing Patient Tobacco Use Status: Former Tobacco user Tobacco use type: Cigarette and Cigar Years Smoked: 14 years old e-Cigarette/Vaping Use: Former Use Second Hand Smoke Exposure: No service: Yes Review of Systems Const All systems reviewed & are unremarkable except as noted in HPI and below Physical Exam Vital Signs: Last Vital Signs Temp 97.8 F 09/24/24 03:15 Pulse 69 09/24/24 03:15 Resp 18 09/24/24 03:15 BP 167/77 H 09/24/24 03:15 Pulse Ox 93 09/24/24 03:15 O2 Del Method Room Air 09/24/24 03:15 O2 Flow Rate 2 09/23/24 07:35 BMI result Body Mass Index 28.2 Extrem Other: Incision site on left ankle clean, dry, intact There is a scab at the most distal aspect Minimal edema, no erythema or ecchymosis noted Aquacel on lateral ankle C/D/I Incision site a medial ankle well closed Patient reports minimal if any tenderness to palpation about the left ankle Distal sensation intact Capillary refill brisk Assessment & Plan Assessment & Plan (1) 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 Status post I and D of infected hardware of the left ankle DOS 09/17/2024 Patient appears to be recovering well postoperatively Patient is educated about the typical recovery course Patient was advised he can begin showering and gently washing the area with soap and water Patient was advised he can continue attempting to weightbear in the boot Continue IV antibiotics Patient was amenable to this plan Patient will follow-up in 4 week for reassessment, sooner with any acute concerns Orders: Orders XR ankle LT min 3V Today M25.572 - Pain in left ankle and joints of left foot Coding Level of Care Code Global (28686) Diagnoses 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
--- OUTSIDE RECORDS SUMMARY | 2024-10-21 15:28 | XMS_ITS | Patient Health Record ---
Author Organization [facility] [place] Address [address] [place] [address] Care Team Providers Care Manager Flight Name Role Phone Josue Simmons MD Primary Care Provider Lyn Aquino Unavailable [phone] Allergies Allergen (clinical drug ingredient) Drug/Non Drug [...] primary osteoarthritis of the ankle and/or foot (605220603) Primary osteoarthrit is, right ankle and foot (M19.071) Active confirmed Encounters Encounter Location Date Provider Diagnosis [facility] [place] [address] [facility] [place] [address] 03/09/2024 Lyn Lund [facility] [address] [facility] IRASEMA [place] [address] 03/12/2024 Lyn Lund [facility] [address] [facility] [place] [address] 04/02/2024 Lyn Lund Plan Of Treatment Pending Test Test Name Order Date X ray : Foot, right 3V 01/20/2015 X ray : Ankle, right 3V 03/04/2017 Insurance Providers Payer Name Payer Address Payer Phone Subscriber Number Group Number Insured Name Patient Relationship to Insured Coverage Start Date Coverage End Date Medicare [employer] [address] [place] [address] [id number] Reed Mallory Self - patient is the insured [employer] [address] [place] [address] Reed Mallory Self - patient is the [...]
--- OUTSIDE RECORDS SUMMARY | 2024-10-21 15:28 | XMS_ITS | Encounter Summary ---
Author Organization [facility] Address [address] [place] [address] Care Team Providers Care Cart Driver Name Role Phone Adam Noonan MD Primary Care Provider Unava ilable Encounter Details Date Type Department Care Team Description 11/18/2018 Release of Information Medical Records [address] [place] [id number] Abstract, Provider Social History Tobacco Use Types [...] on filedocumented in this encounter Care Teams Cart Driver Relationship Specialty Start Date End Date Adam Noonan MD PCP - General Internal Medicine 11/19/17 documented as of this encounter
--- OUTSIDE RECORDS SUMMARY | 2024-10-21 15:28 | XMS_ITS | Encounter Summary ---
Author Organization [facility] Address [address] [place] [address] Care Team Providers Care Wet Pour Mixer Name Role Phone Adam Noonan MD Primary Care Provider Unava ilable Reason for Visit * Reason Onset Date Comments refill request 02/05/2019 Encounter Details Date Type Department Care Team Description 02/05/2019 Telephone Pulmonology - [place] [address] [facility] [address] [place] [address] Eric Tucker MD refill request [...] EDT Yes please fax script printed to [place] pharmacy [place], [place] * Telephone Encounter - Xenia Bernabe - 02/05/2019 1:47 PM EDT Patient calling states was seen on January 19 was told pro air was suppose to be sent over to [facility] pharmacy and patient still has yet to rcv it and needs young fax over is [phone] documented in this encounter Plan of Treatment Not on file documented as of this encounter Visit Diagnoses Not on filedocumented in this encounter Care Teams Wet Pour Mixer Relationship Specialty Start Date End Date Adam Noonan MD PCP - General Internal Medicine 11/19/17 documented as of this encounter
--- OUTSIDE RECORDS SUMMARY | 2024-10-21 15:29 | XMS_ITS | Continuity of Care Document ---
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 It does not include entries that were removed or entered in error. Problem Status Onset Date Problem Type Date of Resolution Comments Source Chronic dermatitis Active 023 Condition Oct 05, 2022 Entered By: BYRON BARRON Comment: referred to dermatology [facility] Chest Pain (SCT [id number]) Active Condition Jan 02, 2022 Entered By: BYRON BARRON Comment: ordered stress test [facility] COPD - Chronic Obstructive Pulmonary Disease (SCT 94321445) Active Condition Dec 28, 2021 Entered By: BYRON BARRON Comment: on inhalers [facility] Cataract Active Condition Oct 12, 2020 Entered By: BYRON BARRON Comment: referred for surgery [facility] HTN - Hypertension (SCT [id number]) Active Condition Oct 21, 2020 Entered By: BYRON BARRON Comment: treated witn medication [facility] Hypercholesterolemia (SCT [id number]) Active Condition Oct 21, 2020 Entered By: [...] of uncertain behavior of skin Active Diagnosis [facility] Diagnosis: ICD-10-CM Z13.89 Encounter for screening for other disorder Active Diagnosis [facility] Diagnosis: ICD-10-CM R21 Rash and other nonspecific skin eruption Active Diagnosis [facility] Diagnosis: ICD-10-CM Z23 Encounter for immunization [...] WITH GRAPEFRU IT JUICE ORAL ACTIVE 12/24/2024 [id number] MLAPADandy,TH EODORE K 2024 90 [facility] AMOXICILLIN TRIHYDRATE 875MG/CLAVU LANATE K 125MG TAB TAKE 1 TABLET BY MOUTH TWICE DAILY FOR INFECTIO N ORAL 11/15/2023 [id number] MAUREEN BARRON PAIGE D 2023 20 [facility] ASPIRIN 81MG TAB,CHEWABL E CHEW ONE TABLET BY MOUTH ONCE DAILY ORAL ACTIVE JANINE HAMMOND R 2021 [facility] ATORVASTATI N CA 80MG TAB TAKE ONE TABLET BY MOUTH AT BEDTIME ORAL DISCONT INUED BY PROVIDE R 06/26/2025 [id number] 5 MAUREEN BARRON PAIGE D 2023 90 [facility] ATORVASTATI N CA 80MG TAB TAKE ONE TABLET BY MOUTH AT BEDTIME ORAL DISCONT INUED 06/19/2024 [id number] 4 MOHAMUD ARGUETA AV 2022 90 [facility] CARBOXYMETH YLCELLULOSE NA 0.5% SOLN,OPH INSTILL 1 DROP INTO EACH EYE FOUR TIMES A DAY FOR DRY EYE OPHTHA LMIC ACTIVE 09/02/2025 [id number] 5 CALDERON,LAC EY J 2024 45 [facility] CEPHALEXIN 500MG CAP TAKE ONE CAPSULE BY MOUTH EVERY 8 HOURS FOR INFECTIO N ORAL 04/04/2024 [id number] 4 MAMTA STERN 2023 21 [facility] DOCUSATE NA 100MG CAP TAKE ONE CAPSULE BY MOUTH TWICE DAILY FOR 7 DAYS TO SOFTEN STOOL ORAL ACTIVE 10/25/2024 [id number] 5 MISA CANTU- NERI 2024 14 [facility] EYELID CLEANSER,EY E SCRUB PAD USE 1 PAD TOPICALL Y EVERY MORNING BLEPHARI TIS TOPICA L ACTIVE 09/02/2025 [id number] 5 OSBALDO CALDERON EY J 2024 90 [facility] EZETIMIBE 10MG TAB TAKE ONE TABLET BY MOUTH ONCE DAILY TO LOWER CHOLESTE ROL ORAL ACTIVE 06/26/2025 [id number] 5 MAUREEN BARRON PAIGE D 2023 90 [facility] EZETIMIBE 10MG TAB TAKE ONE TABLET BY MOUTH ONCE DAILY TO LOWER CHOLESTE ROL ORAL DISCONT INUED 06/19/2024 [id number] 4 KENDALL,MOHAMUD AV 2022 90 [facility] HYDROCHLORO THIAZIDE 25MG TAB TAKE ONE TABLET BY MOUTH ONCE DAILY ORAL ACTIVE 12/24/2024 [id number] 5 VAILRAJI HLEY M 2024 90 [facility] HYDROCHLORO THIAZIDE 25MG TAB TAKE ONE TABLET BY MOUTH ONCE DAILY ORAL 06/19/2024 [id number] 4 KENDALL,MOHAMUD AV 2023 90 [facility] METOPROLOL SUCCINATE 50MG TAB,SA TAKE ONE TABLET BY MOUTH ONCE DAILY FOR BLOOD PRESSURE /HEART ORAL ACTIVE 06/26/2025 [id number] 5 MAUREEN BARRON PAIGE D 2023 90 [facility] METOPROLOL SUCCINATE 50MG TAB,SA TAKE ONE TABLET BY MOUTH ONCE DAILY FOR BLOOD PRESSURE /HEART ORAL DISCONT INUED 06/19/2024 [id number] 4 KENDALL,MOHAMUD AV 2022 90 [facility] OXYCODONE HCL 5MG TAB TAKE ONE TABLET BY MOUTH EVERY 4 HOURS NEEDED FOR PAIN ORAL ACTIVE 10/25/2024 [id number] 5 MISA CANTU- NERI 2024 42 [facility] TRIAMCINOLO NE ACETONIDE 0.1% CREAM,TOP APPLY A MODERATE AMOUNT TOPICALL Y TWICE DAILY NEEDED FOR ITCHING TOPICA L ACTIVE 10/24/2024 [id number] 4 MAUREEN BARRON D 2023 [facility] Allergies, Adverse Reactions, Alerts Combined list of allergies from Department of Defense and Veterans Affairs facilities. It does not include entries that were removed or entered in error. Substance Category Reaction Severity Reaction type Status Date Reported Comments Source LIDOCAINE Propensity to adverse reactions to drug (finding) Itching MODERATE active 2 [facility] NOVOCAIN Propensity to adverse reactions to drug (finding) Feeling agitated active [facility] PROCAINE Propensity to adverse reactions to drug (finding) active 2 [facility] Immunizations Combined list of available immunizations from the Department of Defense and Veterans Affairs facilities. Immunization Series Date Given Administered By Site Reaction Lot Number CVX Code Drug Tank Car Cleaner Status Comments Source COVID-19 (MODERNA), MRNA, LNP-S, PF, 50 MCG/0.5 ML (AGES 12+ YEARS) 7 2023 ALMA MAHER LEFT DELTO ID [id number] 312 [facility] INFLUENZA, HIGH-DOSE, TRIVALENT, PF 2023 ALMA MAHER LEFT DELTO ID [id number] 135 [facility] [place] [facility] RSV, BIVALENT, PROTEIN SUBUNIT RSVPREF, DILUENT RECONSTITUTED , 0.5 ML, PF 1 2023 GRETCHEN ANDRADE LEFT DELTO ID [id number] 305 complet [facility] COVID-19 (MODERNA), MRNA, LNP-S, PF, 50 MCG/0.5 ML (AGES 12+ YEARS) 1 2023 GRETCHEN ANDRADE E LEFT DELTO ID [id number] 312 complet ed [facility] [place] INFLUENZA, HIGH-DOSE, QUADRIVALENT 2022 EJRRI SHAIKH M LEFT DELTO ID [id number] 197 complet ed [facility] [place] COVID-19 (MODERNA), MRNA, LNP-S, BIVALENT BOOSTER, PF, 50 MCG/0.5 ML OR 25MCG/0.25 ML DOSE 2021 JERRI SHAIKH LEFT DELTO ID [id number] 229 complet ed [facility] INFLUENZA VACCINE, QUADRIVALENT, ADJUVANTED 2021 205 complet ed [facility] COVID-19 (MODERNA), MRNA, LNP-S, PF, 100 MCG/0.5ML DOSE OR 50 MCG/0.25ML DOSE 3 2021 207 complet ed MOD; [id number] ; 2 [facility] PNEUMOCOCCAL CONJUGATE PCV20, POLYSACCHARID E [id number] CONJUGATE, ADJUVANT, PF 2021 216 complet ed [facility] COVID-19 (MODERNA), MRNA, LNP-S, PF, 100 MCG OR 50 MCG DOSE 3 2020 207 complet ed MOD; [id number]; 2 [facility] INFLUENZA, UNSPECIFIED FORMULATION [address] [facility] TDAP 2020 115 complet ed [facility] COVID-19 (MODERNA), MRNA, LNP-S, PF, 100 MCG/0.5 ML DOSE 2 2020 207 complet ed MOD; [id number]; 1 [facility] COVID-19 (MODERNA), MRNA, LNP-S, PF, 100 MCG/0.5 ML DOSE 1 2020 207 complet ed MOD; [id number]; 1 [facility] [...] DOSE SEASONAL 2017 135 complet ed Partner: [facility]. Administe red by: ARLET TOMER BOLTON (XBL=[phone]). Partner 0 Lot#: [id number] Mfr: Sanofi Pasteur; Dosage: 0.5 [facility] PNEUMOCOCCAL POLYSACCHARID E PPV23 2016 33 complet ed Partner: [facility]. Administe red by: ARLET BOLTON (MAR=[phone]). Partner 0 Lot#: [id number] Mfr: Merck; Dosage: 0.5 [facility] [place] [place] INFLUENZA, HIGH DOSE SEASONAL 2016 135 complet ed Partner: [facility]. Administe red by: ARLET BOLTON (RXN=[phone]). Partner 0 Lot#: [id number] Mfr: Sanofi Pasteur; Dosage: 0.5 [facility] [place] Results Combined list of recent chemistry, [...] Apr 04, 2024 05:53 PM Reporting Lab: [facility] [address] Performing Lab: [facility] [address] [facility] BASIC METABOLI C PANEL (fasting ) GLUCOSE [MASS/VOLU ME] IN SERUM OR PLASMA 93 mg/dL 65 - 100 04/07 Specimen Type: SERUM No comment entered. Ordering Provider: JAMILA BARRON Report Released Date/Time: Apr 04, 2024 05:53 PM Reporting Lab: [facility] [place] [facility] [address] [facility] [address] Performing Lab: [facility] [address] [facility] [address] [facility] BASIC METABOLI C PANEL (fasting ) SODIUM [MOLES/VOL UME] IN SERUM OR PLASMA 139 mmol/L 135 - 145 04/07 Specimen Type: SERUM No comment entered. Ordering Provider: JAMILA BARRON Report Released Date/Time: Apr 04, 2024 05:53 PM Reporting Lab: [facility] [address] [facility] [address] Performing Lab: [facility] [address] [address] [facility] BASIC METABOLI C PANEL (fasting ) POTASSIUM [MOLES/VOL UME] IN SERUM OR PLASMA 3.9 mmol/L 3.5 - 5.0 04/07 Specimen Type: SERUM No comment entered. Ordering Provider: JAMILA BARRON Report Released Date/Time: Apr 04, 2024 05:53 PM Reporting Lab: [facility] [place] [address] [address] Performing Lab: [facility] [address] [facility] [address] [facility] BASIC METABOLI C PANEL (fasting ) CHLORIDE [MOLES/VOL UME] IN SERUM OR PLASMA 102 mmol/L 100 - 110 04/07 Specimen Type: SERUM No comment entered. Ordering Provider: JAMILA BARRON Report Released Date/Time: Apr 04, 2024 05:53 PM Reporting Lab: [facility] [place] [address] [address] Performing Lab: [facility] [address] [facility] [address] [facility] BASIC METABOLI C PANEL (fasting ) CARBON DIOXIDE, TOTAL [MOLES/VOL UME] IN SERUM OR PLASMA 26 meq/L 20 - 30 04/07 Specimen Type: SERUM No comment entered. Ordering Provider: JAMILA BARRON Report Released Date/Time: Apr 04, 2024 05:53 PM Reporting Lab: [facility] [address] [address] Performing Lab: [facility] [address] [address] [facility] BASIC METABOLI C PANEL (fasting ) CREATININE [MASS/VOLU ME] IN SERUM OR PLASMA 0.92 mg/dL 0.50 - 1.40 04/07 Specimen Type: SERUM No comment entered. Ordering Provider: JAMILA BARRON Report Released Date/Time: Apr 04, 2024 05:53 PM Reporting Lab: [address] [address] Performing Lab: [facility] [address] [address] [facility] BASIC METABOLI C PANEL (fasting ) GLOMERULAR FILTRATION RATE/1.73 SQ M.PREDICTE D [VOLUME RATE/AREA] IN SERUM, PLASMA OR BLOOD BY CREATININE -BASED FORMULA (CKD-EPI 2020) 82 mL/min 60 04/07 Specimen Type: SERUM No comment entered. Ordering Provider: JAMILA BARRON Report Released Date/Time: Apr 04, 2024 05:53 PM Reporting Lab: [facility] [address] [address] Performing Lab: [address] [address] [facility] CBC AND DIFF (AUTO) LEUKOCYTES [#/VOLUME] IN BLOOD BY AUTOMATED COUNT 7.77 10*3/uL 4.50 - 11.00 04/07 Specimen Type: BLOOD No comment entered. Ordering Provider: JAMILA BARRON Report Released Date/Time: Apr 04, 2024 05:53 PM Reporting Lab: [facility] [place] [facility] [address] [facility] [address] Performing Lab: [facility] [place] [facility] [address] [facility] [address] [facility] CBC AND DIFF (AUTO) ERYTHROCYT ES [#/VOLUME] IN BLOOD BY AUTOMATED COUNT 4.29 10*6/uL 4.23 - 5.66 04/07 Specimen Type: BLOOD No comment entered. Ordering Provider: JAMILA BARRON Report Released Date/Time: Apr 04, 2024 05:53 PM Reporting Lab: [facility] [place] [facility] [address] [facility] [address] Performing Lab: [facility] [place] [facility] [address] [facility] [address] [facility] [place] [facility] CBC AND DIFF (AUTO) HEMOGLOBIN [MASS/VOLU ME] IN BLOOD 14.2 g/dL 12.8 - 17 04/07 Specimen Type: BLOOD No comment entered. Ordering Provider: JAMILA BARRON Report Released Date/Time: Apr 04, 2024 05:53 PM Reporting Lab: [facility] [place] [facility] [address] [facility] [address] Performing Lab: [facility] [place] [facility] [address] [facility] [address] [facility] [place] [facility] CBC AND DIFF (AUTO) HEMATOCRIT [VOLUME FRACTION] OF BLOOD BY AUTOMATED COUNT 41.1 39.2 - 50.4 04/07 Specimen Type: BLOOD No comment entered. Ordering Provider: JAMILA BARRON Report Released Date/Time: Apr 04, 2024 05:53 PM Reporting Lab: [facility] [place] [facility] [address] [facility] [address] Performing Lab: [facility] [place] [facility] [address] [facility] [address] [facility] [place] [facility] CBC AND DIFF (AUTO) MCV [ENTITIC VOLUME] BY AUTOMATED COUNT 95.8 fL 82 - 99 04/07 Specimen Type: BLOOD No comment entered. Ordering Provider: JAMILA BARRON Report Released Date/Time: Apr 04, 2024 05:53 PM Reporting Lab: [facility] [place] [facility] [address] [facility] [address] Performing Lab: [facility] [place] [facility] [address] [facility] [address] [facility] CBC AND DIFF (AUTO) MCHC [MASS/VOLU ME] BY AUTOMATED COUNT 34.5 g/dL 30.8 - 35.1 04/07 Specimen Type: BLOOD No comment entered. Ordering Provider: JAMILA BARRON Report Released Date/Time: Apr 04, 2024 05:53 PM Reporting Lab: [facility] [place] [facility] [address] [facility] [address] Performing Lab: [facility] [place] [address] [address] [facility] [place] [facility] CBC AND DIFF (AUTO) PLATELETS [#/VOLUME] IN BLOOD BY AUTOMATED COUNT 184 10*3/uL 140 - 360 04/07 Specimen Type: BLOOD No comment entered. Ordering Provider: JAMILA BARRON Report Released Date/Time: Apr 04, 2024 05:53 PM Reporting Lab: [facility] [place] [facility] [address] [facility] [address] Performing Lab: [facility] [place] [facility] [address] [facility] [address] [facility] CBC AND DIFF (AUTO) ERYTHROCYT E DISTRIBUTI ON WIDTH [RATIO] BY AUTOMATED COUNT 13.1 12.0 - 16.0 04/07 Specimen Type: BLOOD No comment entered. Ordering Provider: JAMILA BARRON Report Released Date/Time: Apr 04, 2024 05:53 PM Reporting Lab: [facility] [place] [facility] [address] [facility] [address] Performing Lab: [facility] [place] [facility] [address] [facility] [address] [facility] CBC AND DIFF (AUTO) MONOCYTES [#/VOLUME] IN BLOOD BY AUTOMATED COUNT 0.98 10*3/uL 0.30 - 1.10 04/07 Specimen Type: BLOOD No comment entered. Ordering Provider: JAMILA BARRON Report Released Date/Time: Apr 04, 2024 05:53 PM Reporting Lab: [facility] [place] [address] [address] Performing Lab: [facility] [place] [facility] [address] [facility] [address] [facility] CBC AND DIFF (AUTO) MCH [ENTITIC MASS] BY AUTOMATED COUNT 33.1 pg 26.2 - 32.6 04/07 H Specimen Type: BLOOD No comment entered. Ordering Provider: JAMILA BARRON Report Released Date/Time: Apr 04, 2024 05:53 PM Reporting Lab: [facility] [place] [address] [address] Performing Lab: [facility] [place] [address] [address] [facility] [place] [facility] CBC AND DIFF (AUTO) NEUTROPHIL S/100 LEUKOCYTES IN BLOOD BY AUTOMATED COUNT 52.3 43.7 - 75.8 04/07 Specimen Type: BLOOD No comment entered. Ordering Provider: JAMILA BARRON Report Released Date/Time: Apr 04, 2024 05:53 PM Reporting Lab: [facility] [place] [address] [address] Performing Lab: [facility] [place] [address] [address] [facility] [place] [facility] CBC AND DIFF (AUTO) LYMPHOCYTE S/100 LEUKOCYTES IN BLOOD BY AUTOMATED COUNT 31.7 14.0 - 42.3 04/07 Specimen Type: BLOOD No comment entered. Ordering Provider: JAMILA BARRON Report Released Date/Time: Apr 04, 2024 05:53 PM Reporting Lab: [facility] [place] [address] [address] Performing Lab: [facility] [place] [address] [place] [address] [facility] CBC AND DIFF (AUTO) MONOCYTES/ 100 LEUKOCYTES IN BLOOD BY AUTOMATED COUNT 12.6 5.1 - 13.7 04/07 Specimen Type: BLOOD No comment entered. Ordering Provider: JAMILA BARRON Report Released Date/Time: Apr 04, 2024 05:53 PM Reporting Lab: [facility] [place] [facility] [address] [facility] [address] Performing Lab: [facility] [address] [facility] [address] [facility] [place] [facility] CBC AND DIFF (AUTO) EOSINOPHIL S/100 LEUKOCYTES IN BLOOD BY AUTOMATED COUNT 2.3 0.4 - 6.8 04/07 Specimen Type: BLOOD No comment entered. Ordering Provider: JAMILA BARRON Report Released Date/Time: Apr 04, 2024 05:53 PM Reporting Lab: [facility] [place] [address] [address] Performing Lab: [facility] [place] [address] [address] [facility] [place] [facility] CBC AND DIFF (AUTO) BASOPHILS/ 100 LEUKOCYTES IN BLOOD BY AUTOMATED COUNT 0.6 0.1 - 2.0 04/07 Specimen Type: BLOOD No comment entered. Ordering Provider: JAMILA BARRON Report Released Date/Time: Apr 04, 2024 05:53 PM Reporting Lab: [facility] [place] [address] [address] Performing Lab[facility] [place] [address] [address] [facility] [place] [facility] CBC AND DIFF (AUTO) NEUTROPHIL S [#/VOLUME] IN BLOOD BY AUTOMATED COUNT 4.06 10*3/uL 2.20 - 7.60 04/07 Specimen Type: BLOOD No comment entered. Ordering Provider: JAMILA BARRON Report Released Date/Time: Apr 04, 2024 05:53 PM Reporting Lab: [facility] [place] [address] [address] Performing Lab: [facility] [place] [facility] [address] [facility] [address] [facility] CBC AND DIFF (AUTO) LYMPHOCYTE S [#/VOLUME] IN BLOOD BY AUTOMATED COUNT 2.46 10*3/uL 1.00 - 3.20 04/07 Specimen Type: BLOOD No comment entered. Ordering Provider: JAMILA BARRON Report Released Date/Time: Apr 04, 2024 05:53 PM Reporting Lab: [facility] [place] [facility] [address] [facility] [address] Performing Lab: [facility] [place] [address] [address] [facility] [place] [facility] CBC AND DIFF (AUTO) EOSINOPHIL S [#/VOLUME] IN BLOOD BY AUTOMATED COUNT 0.18 10*3/uL 0.03 - 0.44 04/07 Specimen Type: BLOOD No comment entered. Ordering Provider: JAMILA BARRON Report Released Date/Time: Apr 04, 2024 05:53 PM Reporting Lab: [facility] [place] [facility] [address] [facility] [address] Performing Lab: [facility] [place] [address] [address] [facility] [place] [facility] CBC AND DIFF (AUTO) BASOPHILS [#/VOLUME] IN BLOOD BY AUTOMATED COUNT 0.05 10*3/uL 0.01 - 0.13 04/07 Specimen Type: BLOOD No comment entered. Ordering Provider: JAMILA BARRON Report Released Date/Time: Apr 04, 2024 05:53 PM Reporting Lab: [facility] [place] [address] [address] Performing Lab: [facility] [place] [address] [address] [facility] CBC AND DIFF (AUTO) IMMATURE GRANULOCYT ES/100 LEUKOCYTES IN BLOOD BY AUTOMATED COUNT 0.5 0.0 - 0.7 04/07 Specimen Type: BLOOD No comment entered. Ordering Provider: JAMILA BARRON Report Released Date/Time: Apr 04, 2024 05:53 PM Reporting Lab: [facility] [place] [address] [address] Performing Lab: [facility] [place] [address] [address] [facility] [place] [facility] CBC AND DIFF (AUTO) IMMATURE GRANULOCYT ES [#/VOLUME] IN BLOOD 0.04 10*3/uL 0.00 - 0.06 04/07 Specimen Type: BLOOD No comment entered. Ordering Provider: JAMILA BARRON Report Released Date/Time: Apr 04, 2024 05:53 PM Reporting Lab: [facility] [place] [address] [address] Performing Lab: [facility] [place] [address] [address] [facility] [place] [facility] CBC AND DIFF (AUTO) NRBC % 0.0 0.0 - 0.0 04/07 Specimen Type: BLOOD No comment entered. Ordering Provider: JAMILA BARRON Report Released Date/Time: Apr 04, 2024 05:53 PM Reporting Lab: [facility] [place] [address] [address] Performing Lab: [facility] [place] [address] [address] [facility] [place] CBC AND DIFF (AUTO) NRBC, ABS 0.00 10*3/uL 0.00 - 0.00 04/07 Specimen Type: BLOOD No comment entered. Ordering Provider: JAMILA BARRON Report Released Date/Time: Apr 04, 2024 05:53 PM Reporting Lab: [facility] [place] [address] [address] Performing Lab: [facility] [place] [address] [address] [facility] [place] [facility] LIPID PANEL FASTING CHOLESTERO L [MASS/VOLU ME] IN SERUM OR PLASMA 139 mg/dL 04/07 Specimen Type: SERUM No comment entered. Ordering Provider: JAMILA BARRON Report Released Date/Time: Apr 04, 2024 05:53 PM Reporting Lab: [facility] [place] [facility] [address] [facility] [address] Performing Lab: [facility] [place] [facility] [address] [facility] [address] [facility] LIPID PANEL FASTING TRIGLYCERI DE [MASS/VOLU ME] IN SERUM OR PLASMA 136 mg/dL 0 - 150 04/07 Specimen Type: SERUM No comment entered. Ordering Provider: JAMILA BARRON Report Released Date/Time: Apr 04, 2024 05:53 PM Reporting Lab: [facility] [place] [facility] [address] [facility] [address] Performing Lab: [facility] [place] [address] [address] [facility] [facility] LIPID PANEL FASTING CHOLESTERO L IN LDL [MASS/VOLU ME] IN SERUM OR PLASMA BY CALCRITU N 72 mg/dL 0 - 129 04/07 Specimen Type: SERUM No comment entered. Ordering Provider: JAMILA BARRON Report Released Date/Time: Apr 04, 2024 05:53 PM Reporting Lab: [facility] [place] [facility] [address] [facility] [address] Performing Lab: [facility] [place] [facility] [address] [facility] [address] [facility] [place] [facility] LIPID PANEL FASTING CHOLESTERO L.TOTAL/CH OLESTEROL IN HDL [MASS RATIO] IN SERUM OR PLASMA 3.5 04/07 Specimen Type: SERUM No comment entered. Ordering Provider: JAMILA BARRON Report Released Date/Time: Apr 04, 2024 05:53 PM Reporting Lab: [facility] [place] [facility] [address] [facility] [address] Performing Lab: [facility] [place] [facility] [address] [facility] [address] [facility] [facility] [place] [facility] LIPID PANEL FASTING CHOLESTERO L IN HDL [MASS/VOLU ME] IN SERUM OR PLASMA 40 mg/dL 40 - 60 04/07 Specimen Type: SERUM No comment entered. Ordering Provider: JAMILA BARRON Report Released Date/Time: Apr 04, 2024 05:53 PM Reporting Lab: [facility] [address] [facility] [address] Performing Lab: [place] [facility] [address] [facility] LIVER FUNCTION PROTEIN [MASS/VOLU ME] IN SERUM OR PLASMA 6.8 g/dL 6.0 - 8.3 04/07 Specimen Type: SERUM No comment entered. Ordering Provider: JAMILA BARRON Report Released Date/Time: Apr 04, 2024 05:53 PM Reporting Lab: [facility] [address] Performing Lab: [place] [facility] [address] [facility] LIVER FUNCTION ALBUMIN [MASS/VOLU ME] IN SERUM OR PLASMA 4.0 g/dL 3.5 - 5.0 04/07 Specimen Type: SERUM No comment entered. Ordering Provider: JAMILA BARRON Report Released Date/Time: Apr 04, 2024 05:53 PM Reporting Lab: [facility] [address] Performing Lab: [place] [facility] [address] [address] [facility] LIVER FUNCTION ALKALINE PHOSPHATAS E [ENZYMATIC ACTIVITY/V OLUME] IN SERUM OR PLASMA 118 U/L 40 - 150 04/07 Specimen Type: SERUM No comment entered. Ordering Provider: JAMILA BARRON Report Released Date/Time: Apr 04, 2024 05:53 PM Reporting Lab: [facility] [address] Performing Lab: [place] [facility] [address] [facility] [place] [facility] LIVER FUNCTION ASPARTATE AMINOTRANS FERASE [ENZYMATIC ACTIVITY/V OLUME] IN SERUM OR PLASMA 30 U/L 5 - 34 04/07 Specimen Type: SERUM No comment entered. Ordering Provider: JAMILA BARRON Report Released Date/Time: Apr 04, 2024 05:53 PM Reporting Lab: [facility] [place] [facility] [address] [facility] [address] Performing Lab: [facility] [place] [facility] [address] [facility] [address] [facility] [place] [facility] LIVER FUNCTION ALANINE AMINOTRANS FERASE [ENZYMATIC ACTIVITY/V OLUME] IN SERUM OR PLASMA 23 U/L 04/07 Specimen Type: SERUM No comment entered. Ordering Provider: JAMILA BARRON Report Released Date/Time: Apr 04, 2024 05:53 PM Reporting Lab: [facility] [place] [place] [address] [address] Performing Lab: [facility] [place] [address] [address] [facility] [place] [facility] LIVER FUNCTION BILIRUBIN. TOTAL [MASS/VOLU ME] IN SERUM OR PLASMA 1.0 mg/dL 0.2 - 1.2 04/07 Specimen Type: SERUM No comment entered. Ordering Provider: JAMILA BARRON Report Released Date/Time: Apr 04, 2024 05:53 PM Reporting Lab: [facility] [place] [address] [address] Performing Lab: [facility] [place] [address] [address] [facility] [place] [facility] TSH THYROTROPI N [UNITS/VOL UME] IN SERUM OR PLASMA 2.34 u[IU]/mL 0.35 - 5.00 04/07 Specimen Type: SERUM No comment entered. Ordering Provider: JAMILA BARRON Report Released Date/Time: Apr 04, 2024 05:53 PM Reporting Lab: [facility] [place] [facility] [address] [facility] [address] Performing Lab: [place] [facility] [place] [facility] [address] [facility] [address] [place] [facility] [place] [facility] URINALYS IS CLEAN CATCH COLOR OF URINE Yellow 04/07 Specimen Type: URINE Comment: If Glucose = >500 and Ketones are positive, please alert the Physician. Ordering Provider: JAMILA BARRON Report Released Date/Time: Apr 04, 2024 05:53 PM Reporting Lab: [place] [facility] [place] [facility] [address] [facility] [address] Performing Lab: [place] [facility] [place] [address] [address] [place] [facility] [place] [facility] URINALYS IS CLEAN CATCH APPEARANCE OF URINE Clear 04/07 Specimen Type: URINE Comment: If Glucose = >500 and Ketones are positive, please alert the Physician. Ordering Provider: JAMILA BARRON Report Released Date/Time: Apr 04, 2024 05:53 PM Reporting Lab: [place] [facility] [place] [address] [address] Performing Lab: [place] [facility] [place] [address] [address] [facility] [place] [facility] URINALYS IS CLEAN CATCH GLUCOSE [MASS/VOLU ME] IN URINE Normalmg /dL 04/07 Specimen Type: URINE Comment: If Glucose = >500 and Ketones are positive, please alert the Physician. Ordering Provider: JAMILA BARRON Report Released Date/Time: Apr 04, 2024 05:53 PM Reporting Lab: [place] [facility] [place] [address] [address] Performing Lab: [place] [facility] [place] [address] [address] [place] [facility] [place] [facility] URINALYS IS CLEAN CATCH KETONES [MASS/VOLU ME] IN URINE BY TEST STRIP NEGATIVE mg/dL 04/07 Specimen Type: URINE Comment: If Glucose = >500 and Ketones are positive, please alert the Physician. Ordering Provider: JAMILA BARRON Report Released Date/Time: Apr 04, 2024 05:53 PM Reporting Lab: [facility] [place] [facility] [address]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 Encount er for fitting and adjustm ent of hearing aid Yossi HARRINGTON 05/05 [facility] Out[facility] En[facility] [id number] 05/08 [facility] Encounter [id number] 05/27 [facility] Out[facility] Encounter [id number] 06/01 [facility] Encounter [id number] 06/03 [facility] Encounter [id number] 06/06 [facility] Out[facility] Encounter [id number] 06/15 [facility] Out[facility] Encounter [id number]/16 [facility] Out[facility] Encounter [id number]/19 [facility] Encounter [id number] 06/25 [facility] Out[facility] Encounter [id number] 06/25 [facility] Encounter [id number] 06/26 [facility] Out[facility] Encounter [id number] 07/02 [facility] Out[facility] Encounter [id number]/06 [facility] Out[facility] Encounter [id number] [facility] Out[facility] Encounter [id number] 07/14 [facility] Out[facility] Encounter [id number] 07/14 [facility] Out[facility] Encounter [id number] 07/16 [facility] Out[facility] Encounter [id number] 07/20 [facility] Out[facility] Encounter [id number] 08/06 [facility] Encounter [id number] 08/17 [facility] Out[facility] Encounter [id number] 08/24 [facility] Out[facility] Encounter [id number] 08/27 [facility] OFFICE O/P EST MOD 30 MIN [id number] Diagnos is: ICD-10- CM 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, hole, or pseudoh ole, right eye CALDERON,LACE Y J 09/01 [facility] Out[facility] En[facility] [id number] 09/02 [facility] Out[facility] Encounter [id number] 09/22 [facility] Out[facility] Encounter [id number] 09/23 [facility] Out[facility] Encounter [id number] 09/24 [facility] Out[facility] Encounter [id number] 09/25 [facility] Out[facility] Encounter [id number] 09/28 [facility] Encounter [id number] 09/28 [facility] Out[facility] Encounter [id number] 09/30 [facility] Out[facility] Encounter [id number] 10/04 [facility] Out[facility] Encounter [id number] 10/11 [facility] Out[facility] Encounter [id number] 10[facility]15 [facility] Out[facility]counter [id number] 10/15 [facility] Social History Combined list of available smoking, tobacco, and other social history from Department of Defense and Veterans Affairs facilities. Social History Type Response Date Comment [facility] e Tobacco smoking status NHIS VA-TOBACCO FORMER USER 10/16/2023 [facility] History of tobacco use SC-TOBACCO QUIT 15 YRS OR MORE 10/16/2023 [facility] History of tobacco use VA-TOBACCO FORMER USER 07/04/2022 [facility] History of tobacco use NSG NO TOBACCO USE PAST 30 DAYS 03/27/2022 [facility] History of tobacco use NSG NO TOBACCO USE PAST 30 DAYS 03/05/2022 [facility] History of tobacco use NSG NO TOBACCO USE PAST 30 DAYS 03/02/2022 [facility] History of tobacco use SC-TOBACCO FORMER USER 06/28/2021 [facility] History of tobacco use SC-TOBACCO FORMER USER 05/26/2020 [facility] History of tobacco use SC-TOBACCO NEVER USED 05/23/2018 [facility] Plan of Care List of future care activities from [facility] facilities. Additional future care activities may be listed in the Assessment and Plan section. Date/Time Care Activity Care Activity Detail Facili ty 11/11/2024 AMBULATORY - MEDICINE AMBULATORY - MEDICI [facility] Advance Directives List of completed, amended, or rescinded Advance Directives on record at [facility] facilities. An actual copy of the Directive is not included. Date Advance Directive Provider Source 02/19/2022 ADVANCE DIRECTIVE JOCE CASTORENA [facility] 11/16/2020 ADVANCE DIRECTIVE BYRON BARRON [facility]
--- OUTSIDE RECORDS SUMMARY | 2024-10-21 15:29 | XMS_ITS | Encounter Summary ---
Author Organization [facility] Address [address] [place] [address] Care Team Providers Care Home Care Coordinator Name Role Phone Adam Noonan MD Primary Care Provider Unava ilable Encounter Details Date Type Department Care Team Description 11/21/2017 Release of Information Medical Records [address] [place] [address] Abstract, Provider Social History Tobacco Use Types [...] on filedocumented in this encounter Care Teams Home Care Coordinator Relationship Specialty Start Date End Date Adam Noonan MD PCP - General Internal Medicine 11/19/17 documented as of this encounter
--- OUTSIDE RECORDS SUMMARY | 2024-10-21 15:29 | XMS_ITS | Encounter Summary ---
Author Organization [facility] Address [address] [place] [address] Care Team Providers Care [employer] Name Role Phone Adam Noonan MD Primary Care Provider Unava ilable Encounter Details Date Type Department Care Team Description 11/22/2017 Transfer Records Medical Records [address] [place] [address] Abstract, Provider Social History Tobacco Use Types [...] on filedocumented in this encounter Care Teams [employer] Relationship Specialty Start Date End Date Adam Noonan MD PCP - General Internal Medicine 11/19/17 documented as of this encounter
== END 2024-10-21 13:49 | disposition home or self-care (01) ==
PROVIDERS: PCP Internal Medicine
DX: T84.7XXA Infection and inflammatory reaction due to other internal orthopedic prosthetic devices, implants and grafts, initial encounter (principal)
CPT/HCPCS: 99024

== ENCOUNTER → 2024-10-21 13:22 | Outpatient (BNV) | payer OTHER, SELFPAY | PROVIDERS: Visit Provider Radiology Diagnostic Radiology | DX: M25.572 Pain in left ankle and joints of left foot (principal) | CPT/HCPCS: 73610 ==

== ENCOUNTER 2024-10-21 16:00 | Outpatient (REF) | payer OTHER, SELFPAY ==
[2024-10-21 16:59] LABS: Basophils Absolute Auto 0.1 X10*3/uL (0.0-0.2); Basophils Percent Auto 0.8 % (0-2); Eosinophils Absolute Auto 1.3 X10*3/uL (0.0-0.4); Eosinophils Percent Auto 10.2 % (0-4); Hematocrit 33.9 % (42.0-52.0); Hemoglobin 11.4 g/dl (14.0-18.0); Imm Gran Abs Auto 0.09 X10*3/uL (0.00-0.03); Imm Gran Pct Auto 0.7 % (0.0-0.4); Lymphocytes Absolute Auto 2.8 X10*3/uL (1.2-4.9); MANUAL DIFF FLAG SCAN; Mean Corpuscular HGB Conc 33.6 g/dl (31.0-36.0); Mean Corpuscular Hemoglobin 31.8 pg (27.0-33.0); Mean Corpuscular Volume 94.4 fL (80.0-98.0); Mean Platelet Volume 9.7 fL (9.4-12.4); Monocytes Absolute Auto 1.5 X10*3/uL (0.1-1.2); Neutrophils Absolute Auto 6.9 x10*3/uL (2.0-8.3); Neutrophils Percent Auto 54.3 % (45-73); Platelet Count 222 X10*3/uL (160-400); Red Blood Count 3.59 X10*6/uL (4.60-5.80); Red Cell Distribution Width 13.7 % (11.0-16.0); SCAN SMEAR FLAG 1; White Blood Count 12.8 X10*3/uL (4.8-10.8)
[2024-10-21 17:43] LABS: Blood Urea Nitrogen 20 mg/dL (9-16); C Reactive Protein 6.26 mg/dL (< or = 0.50); Estimated Glomerular Filt Rate > 60
[2024-10-21 17:44] LABS: SLIDE REVIEW VERIFIED
--- OUTSIDE RECORDS SUMMARY | 2024-10-21 17:52 | XMS_ITS | Continuity of Care Document ---
Author Name [facility] Organization [facility] Care Team Providers Care Enhanced Environmental Operator Name Role Phone [facility] Unavailable Unavailable Problems Combined list of problems from Department of Defense and Veterans Affairs facilities. It does not include entries that were removed or entered in error. Problem Status Onset Date Problem Type Date of Resolution Comments Source Chronic dermatitis Active 023 Condition Oct 05, 2022 Entered By: BYRON BARRON Comment: referred to dermatology [facility] Chest Pain (SCT [id number]) Active Condition Jan 02, 2022 Entered By: BYRON BARRON Comment: ordered stress test [facility] COPD - Chronic Obstructive Pulmonary Disease (SCT [id number]) Active Condition Dec 28, 2021 Entered By: BYRON BARRON Comment: on inhalers [facility] Cataract Active Condition Oct 12, 2020 Entered By: BYRON BARRON Comment: referred for surgery [facility] HTN - Hypertension (SCT [id number]) Active Condition Oct 21, 2020 Entered By: BYRON BARRON Comment: treated witn medication [facility] Hypercholesterolemia (SCT [id number]) Active Condition Oct 21, 2020 Entered By: [...] WITH GRAPEFRU IT JUICE ORAL ACTIVE 12/24/2024 [id number] MLAPADandy,TH EODORE K 2024 90 [facility] AMOXICILLIN TRIHYDRATE 875MG/CLAVU LANATE K 125MG TAB TAKE 1 TABLET BY MOUTH TWICE DAILY FOR INFECTIO N ORAL 11/15/2023 [id number] MAUREEN BARRON PAIGE D 2023 20 [facility] ASPIRIN 81MG TAB,CHEWABL E CHEW ONE TABLET BY MOUTH ONCE DAILY ORAL ACTIVE JANINE HAMMOND R 2021 [facility] ATORVASTATI N CA 80MG TAB TAKE ONE TABLET BY MOUTH AT BEDTIME ORAL DISCONT INUED BY PROVIDE R 06/26/2025 [id number] 5 MAUREEN BARRON PAIGE D 2023 90 [facility] ATORVASTATI N CA 80MG TAB TAKE ONE TABLET BY MOUTH AT BEDTIME ORAL DISCONT INUED 06/19/2024 [id number] MOHAMUD ARGUETA AV 2022 90 [facility] CARBOXYMETH YLCELLULOSE NA 0.5% SOLN,OPH INSTILL 1 DROP INTO EACH EYE FOUR TIMES A DAY FOR DRY EYE OPHTHA LMIC ACTIVE 09/02/2025 [id number] 5 CALDERON,LAC EY J 2024 45 [facility] CEPHALEXIN 500MG CAP TAKE ONE CAPSULE BY MOUTH EVERY 8 HOURS FOR INFECTIO N ORAL 04/04/2024 [id number] 4 MAMTA STERN 2023 21 [facility] DOCUSATE NA 100MG CAP TAKE ONE CAPSULE BY MOUTH TWICE DAILY FOR 7 DAYS TO SOFTEN STOOL ORAL ACTIVE 10/25/2024 [id number] 5 MISA CANTU- NERI 2024 14 [facility] EYELID CLEANSER,EY E SCRUB PAD USE 1 PAD TOPICALL Y EVERY MORNING BLEPHARI TIS TOPICA L ACTIVE 09/02/2025 [id number] 5 OSBALDO CALDERON EY J 2024 90 [facility] EZETIMIBE 10MG TAB TAKE ONE TABLET BY MOUTH ONCE DAILY TO LOWER CHOLESTE ROL ORAL ACTIVE 06/26/2025 [id number] 5 MAUREEN BARRON PAIGE D 2023 90 [facility] EZETIMIBE 10MG TAB TAKE ONE TABLET BY MOUTH ONCE DAILY TO LOWER CHOLESTE ROL ORAL DISCONT INUED 06/19/2024 [id number] KENDALL,MOHAMUD AV 2022 90 [facility] HYDROCHLORO THIAZIDE 25MG TAB TAKE ONE TABLET BY MOUTH ONCE DAILY ORAL ACTIVE 12/24/2024 [id number] 5 VAILRAJI HLEY M 2024 90 [facility] HYDROCHLORO THIAZIDE 25MG TAB TAKE ONE TABLET BY MOUTH ONCE DAILY ORAL 06/19/2024 [id number] KENDALL,MOHAMUD AV 2023 90 [facility] METOPROLOL SUCCINATE 50MG TAB,SA TAKE ONE TABLET BY MOUTH ONCE DAILY FOR BLOOD PRESSURE /HEART ORAL ACTIVE 06/26/2025 [id number] 5 MAUREEN BARRON PAIGE D 2023 90 [facility] METOPROLOL SUCCINATE 50MG TAB,SA TAKE ONE TABLET BY MOUTH ONCE DAILY FOR BLOOD PRESSURE /HEART ORAL DISCONT INUED 06/19/2024 [id number] 4 KENDALL,MOHAMUD AV 2022 90 [facility] OXYCODONE HCL 5MG TAB TAKE ONE TABLET BY MOUTH EVERY 4 HOURS NEEDED FOR PAIN ORAL ACTIVE 10/25/2024 [id number] 5 MISA CANTU- NERI 2024 42 [facility] TRIAMCINOLO NE ACETONIDE 0.1% CREAM,TOP APPLY A MODERATE AMOUNT TOPICALL Y TWICE DAILY NEEDED FOR ITCHING TOPICA L ACTIVE 10/24/2024 [id number] 4 MAUREEN BARRON D 2023 454 [facility] Allergies, Adverse Reactions, Alerts Combined list of allergies from Department of Defense and Veterans Affairs facilities. It does not include entries that were removed or entered in error. Substance Category Reaction Severity Reaction type Status Date Reported Comments Source LIDOCAINE Propensity to adverse reactions to drug (finding) Itching MODERATE active 2 [facility] NOVOCAIN Propensity to adverse reactions to drug (finding) Feeling agitated active 8 [facility] PROCAINE Propensity to adverse reactions to drug (finding) active 2 [facility] Immunizations Combined list of available immunizations from the Department of Defense and Veterans Affairs facilities. Immunization Series Date Given Administered By Site Reaction Lot Number CVX Code Drug Community Worker Status Comments Source COVID-19 (MODERNA), MRNA, LNP-S, PF, 50 MCG/0.5 ML (AGES 12+ YEARS) 7 2023 ALMA MAHER LEFT DELTO ID [id number] 312 complet ed [facility] INFLUENZA, HIGH-DOSE, TRIVALENT, PF 2023 ALMA MAHER LEFT DELTO ID [id number] 135 complet ed [facility] [place] RSV, BIVALENT, PROTEIN SUBUNIT RSVPREF, DILUENT RECONSTITUTED , 0.5 ML, PF 1 2023 GRETCHEN ANDRADE LEFT DELTO ID [id number] 305 complet ed [facility] [place] COVID-19 (MODERNA), MRNA, LNP-S, PF, 50 MCG/0.5 ML (AGES 12+ YEARS) 1 2023 GRETCHEN ANDRADE E LEFT DELTO ID [id number] 312 complet ed [facility] [place] [facility] INFLUENZA, HIGH-DOSE, QUADRIVALENT 2022 JERRI SHAIKH M LEFT DELTO ID [id number] 197 complet ed [facility] [place] COVID-19 (MODERNA), MRNA, LNP-S, BIVALENT BOOSTER, PF, 50 MCG/0.5 ML OR 25MCG/0.25 ML DOSE 2021 JERRI SHAIKH LEFT DELTO ID [id number] 229 complet ed [facility] INFLUENZA VACCINE, QUADRIVALENT, ADJUVANTED 2021 205 complet ed [facility] COVID-19 (MODERNA), MRNA, LNP-S, PF, 100 MCG/0.5ML DOSE OR 50 MCG/0.25ML DOSE 3 2021 207 complet ed MOD; [id number] ; 2 [facility] PNEUMOCOCCAL CONJUGATE PCV20, POLYSACCHARID E [id number] CONJUGATE, ADJUVANT, PF 2021 216 complet ed [facility] COVID-19 (MODERNA), MRNA, LNP-S, PF, 100 MCG OR 50 MCG DOSE 3 2020 207 complet ed MOD; [id number]; 2 [facility] INFLUENZA, UNSPECIFIED FORMULATION 2020 88 complet ed [facility] TDAP 2020 115 complet ed [facility] COVID-19 (MODERNA), MRNA, LNP-S, PF, 100 MCG/0.5 ML DOSE 2 2020 207 complet ed MOD; [id number]; 1 [facility] COVID-19 (MODERNA), MRNA, LNP-S, PF, 100 MCG/0.5 ML DOSE 1 2020 207 complet ed MOD; [id number]; 1 [facility] [...] DOSE SEASONAL 2017 135 complet ed Partner: [facility]. Administe red by: ARLET TOMER BOLTON ([id number]=[phone]). Partner 0 Lot#: [id number] Mfr: Sanofi Pasteur; Dosage: 0.5 [facility] PNEUMOCOCCAL POLYSACCHARID E PPV23 2016 33 complet ed Partner: [facility]. Administe red by: ARLET BOLTON ([phone]=[phone]). Partner 0 Lot#: [id number] Mfr: Merck; Dosage: 0.5 [facility] [place] [place] INFLUENZA, HIGH DOSE SEASONAL 2016 135 complet ed Partner: [facility]. Administe red by: ARLET BOLTON (VZS=[phone]). Partner 0 Lot#: [id number] Mfr: Sanofi Pasteur; Dosage: 0.5 [facility] [place] [place] Results Combined list of recent [...] Apr 04, 2024 05:53 PM Reporting Lab: [facility] [address] Performing Lab: [facility] [address] [facility] BASIC METABOLI C PANEL (fasting ) GLUCOSE [MASS/VOLU ME] IN SERUM OR PLASMA 93 mg/dL 65 - 100 04/07 Specimen Type: SERUM No comment entered. Ordering Provider: JAMILA BARRON Report Released Date/Time: Apr 04, 2024 05:53 PM Reporting Lab: [facility] [place] [facility] [address] [facility] [address] Performing Lab: [facility] [address] [facility] [address] [facility] BASIC METABOLI C PANEL (fasting ) SODIUM [MOLES/VOL UME] IN SERUM OR PLASMA 139 mmol/L 135 - 145 04/07 Specimen Type: SERUM No comment entered. Ordering Provider: JAMILA BARRON Report Released Date/Time: Apr 04, 2024 05:53 PM Reporting Lab: [facility] [address] [facility] [address] Performing Lab: [facility] [address] [address] [facility] BASIC METABOLI C PANEL (fasting ) POTASSIUM [MOLES/VOL UME] IN SERUM OR PLASMA 3.9 mmol/L 3.5 - 5.0 04/07 Specimen Type: SERUM No comment entered. Ordering Provider: JAMILA BARRON Report Released Date/Time: Apr 04, 2024 05:53 PM Reporting Lab: [facility] [place] [address] [address] Performing Lab: [facility] [address] [facility] [address] [facility] [address] BASIC METABOLI C PANEL (fasting ) CHLORIDE [MOLES/VOL UME] IN SERUM OR PLASMA 102 mmol/L 100 - 110 04/07 Specimen Type: SERUM No comment entered. Ordering Provider: JAMILA BARRON Report Released Date/Time: Apr 04, 2024 05:53 PM Reporting Lab: [facility] [place] [address] [address] Performing Lab: [facility] [address] [facility] [address] [facility] BASIC METABOLI C PANEL (fasting ) CARBON DIOXIDE, TOTAL [MOLES/VOL UME] IN SERUM OR PLASMA 26 meq/L 20 - 30 04/07 Specimen Type: SERUM No comment entered. Ordering Provider: JAMILA BARRON Report Released Date/Time: Apr 04, 2024 05:53 PM Reporting Lab: [facility] [address] [address] Performing Lab: [facility] [address] [address] [facility] BASIC METABOLI C PANEL (fasting ) CREATININE [MASS/VOLU ME] IN SERUM OR PLASMA 0.92 mg/dL 0.50 - 1.40 04/07 Specimen Type: SERUM No comment entered. Ordering Provider: JAMILA BARRON Report Released Date/Time: Apr 04, 2024 05:53 PM Reporting Lab: [address] [address] Performing Lab: [facility] [address] [address] [facility] BASIC METABOLI C PANEL (fasting ) GLOMERULAR FILTRATION RATE/1.73 SQ M.PREDICTE D [VOLUME RATE/AREA] IN SERUM, PLASMA OR BLOOD BY CREATININE -BASED FORMULA (CKD-EPI 2020) 82 mL/min 60 04/07 Specimen Type: SERUM No comment entered. Ordering Provider: JAMILA BARRON Report Released Date/Time: Apr 04, 2024 05:53 PM Reporting Lab: [facility] [address] [address] Performing Lab: [address] [address] [facility] CBC AND DIFF (AUTO) LEUKOCYTES [#/VOLUME] IN BLOOD BY AUTOMATED COUNT 7.77 10*3/uL 4.50 - 11.00 04/07 Specimen Type: BLOOD No comment entered. Ordering Provider: JAMILA BARRON Report Released Date/Time: Apr 04, 2024 05:53 PM Reporting Lab: [facility] [place] [facility] [address] [facility] [address] Performing Lab: [facility] [place] [facility] [address] [facility] [address] [facility] CBC AND DIFF (AUTO) ERYTHROCYT ES [#/VOLUME] IN BLOOD BY AUTOMATED COUNT 4.29 10*6/uL 4.23 - 5.66 04/07 Specimen Type: BLOOD No comment entered. Ordering Provider: JAMILA BARRON Report Released Date/Time: Apr 04, 2024 05:53 PM Reporting Lab: [facility] [place] [facility] [address] [facility] [address] Performing Lab: [facility] [place] [facility] [address] [facility] [address] [facility] [place] [facility] CBC AND DIFF (AUTO) HEMOGLOBIN [MASS/VOLU ME] IN BLOOD 14.2 g/dL 12.8 - 17 04/07 Specimen Type: BLOOD No comment entered. Ordering Provider: JAMILA BARRON Report Released Date/Time: Apr 04, 2024 05:53 PM Reporting Lab: [facility] [place] [facility] [address] [facility] [address] Performing Lab: [facility] [place] [facility] [address] [facility] [address] [facility] [place] [facility] CBC AND DIFF (AUTO) HEMATOCRIT [VOLUME FRACTION] OF BLOOD BY AUTOMATED COUNT 41.1 39.2 - 50.4 04/07 Specimen Type: BLOOD No comment entered. Ordering Provider: JAMILA BARRON Report Released Date/Time: Apr 04, 2024 05:53 PM Reporting Lab: [facility] [place] [facility] [address] [facility] [address] Performing Lab: [facility] [place] [facility] [address] [facility] [address] [facility] CBC AND DIFF (AUTO) MCV [ENTITIC VOLUME] BY AUTOMATED COUNT 95.8 fL 82 - 99 04/07 Specimen Type: BLOOD No comment entered. Ordering Provider: JAMILA BARRON Report Released Date/Time: Apr 04, 2024 05:53 PM Reporting Lab: [facility] [place] [facility] [address] [facility] [address] Performing Lab: [facility] [place] [facility] [address] [facility] [address] [facility] CBC AND DIFF (AUTO) MCHC [MASS/VOLU ME] BY AUTOMATED COUNT 34.5 g/dL 30.8 - 35.1 04/07 Specimen Type: BLOOD No comment entered. Ordering Provider: JAMILA BARRON Report Released Date/Time: Apr 04, 2024 05:53 PM Reporting Lab: [facility] [place] [facility] [address] [facility] [address] Performing Lab: [facility] [place] [address] [address] [facility] CBC AND DIFF (AUTO) PLATELETS [#/VOLUME] IN BLOOD BY AUTOMATED COUNT 184 10*3/uL 140 - 360 04/07 Specimen Type: BLOOD No comment entered. Ordering Provider: JAMILA BARRON Report Released Date/Time: Apr 04, 2024 05:53 PM Reporting Lab: [facility] [place] [facility] [address] [facility] [address] Performing Lab: [facility] [place] [facility] [address] [facility] [address] [facility] CBC AND DIFF (AUTO) ERYTHROCYT E DISTRIBUTI ON WIDTH [RATIO] BY AUTOMATED COUNT 13.1 12.0 - 16.0 04/07 Specimen Type: BLOOD No comment entered. Ordering Provider: JAMILA BARRON Report Released Date/Time: Apr 04, 2024 05:53 PM Reporting Lab: [facility] [place] [facility] [address] [facility] [address] Performing Lab: [facility] [place] [facility] [address] [facility] [address] [facility] CBC AND DIFF (AUTO) MONOCYTES [#/VOLUME] IN BLOOD BY AUTOMATED COUNT 0.98 10*3/uL 0.30 - 1.10 04/07 Specimen Type: BLOOD No comment entered. Ordering Provider: JAMILA BARRON Report Released Date/Time: Apr 04, 2024 05:53 PM Reporting Lab: [facility] [place] [address] [address] Performing Lab: [facility] [place] [facility] [address] [facility] [address] [facility] CBC AND DIFF (AUTO) MCH [ENTITIC MASS] BY AUTOMATED COUNT 33.1 pg 26.2 - 32.6 04/07 H Specimen Type: BLOOD No comment entered. Ordering Provider: JAMILA BARRON Report Released Date/Time: Apr 04, 2024 05:53 PM Reporting Lab: [facility] [place] [address] [address] Performing Lab: [facility] [place] [address] [address] [facility] CBC AND DIFF (AUTO) NEUTROPHIL S/100 LEUKOCYTES IN BLOOD BY AUTOMATED COUNT 52.3 43.7 - 75.8 04/07 Specimen Type: BLOOD No comment entered. Ordering Provider: JAMILA BARRON Report Released Date/Time: Apr 04, 2024 05:53 PM Reporting Lab: [facility] [place] [address] [address] Performing Lab: [facility] [place] [address] [address] [facility] CBC AND DIFF (AUTO) LYMPHOCYTE S/100 LEUKOCYTES IN BLOOD BY AUTOMATED COUNT 31.7 14.0 - 42.3 04/07 Specimen Type: BLOOD No comment entered. Ordering Provider: JAMILA BARRON Report Released Date/Time: Apr 04, 2024 05:53 PM Reporting Lab: [facility] [place] [address] [address] Performing Lab: [facility] [place] [address] [place] [address] [facility] CBC AND DIFF (AUTO) MONOCYTES/ 100 LEUKOCYTES IN BLOOD BY AUTOMATED COUNT 12.6 5.1 - 13.7 04/07 Specimen Type: BLOOD No comment entered. Ordering Provider: JAMILA BARRON Report Released Date/Time: Apr 04, 2024 05:53 PM Reporting Lab: [facility] [place] [facility] [address] [facility] [address] Performing Lab: [facility] [address] [facility] [address] [facility] CBC AND DIFF (AUTO) EOSINOPHIL S/100 LEUKOCYTES IN BLOOD BY AUTOMATED COUNT 2.3 0.4 - 6.8 04/07 Specimen Type: BLOOD No comment entered. Ordering Provider: JAMILA BARRON Report Released Date/Time: Apr 04, 2024 05:53 PM Reporting Lab: [facility] [place] [address] [address] Performing Lab[facility] [place] [address] [address] [facility] CBC AND DIFF (AUTO) BASOPHILS/ 100 LEUKOCYTES IN BLOOD BY AUTOMATED COUNT 0.6 0.1 - 2.0 04/07 Specimen Type: BLOOD No comment entered. Ordering Provider: JAMILA BARRON Report Released Date/Time: Apr 04, 2024 05:53 PM Reporting Lab: [facility] [place] [address] [address] Performing Lab: [facility] [place] [address] [address] [facility] [place] [facility] CBC AND DIFF (AUTO) NEUTROPHIL S [#/VOLUME] IN BLOOD BY AUTOMATED COUNT 4.06 10*3/uL 2.20 - 7.60 04/07 Specimen Type: BLOOD No comment entered. Ordering Provider: JAMILA BARRON Report Released Date/Time: Apr 04, 2024 05:53 PM Reporting Lab: [facility] [place] [address] [address] Performing Lab: [facility] [place] [facility] [address] [facility] [address] [facility] CBC AND DIFF (AUTO) LYMPHOCYTE S [#/VOLUME] IN BLOOD BY AUTOMATED COUNT 2.46 10*3/uL 1.00 - 3.20 04/07 Specimen Type: BLOOD No comment entered. Ordering Provider: JAMILA BARRON Report Released Date/Time: Apr 04, 2024 05:53 PM Reporting Lab: [facility] [place] [facility] [address] [facility] [address] Performing Lab: [facility] [place] [address] [address] [facility] [place] [facility] CBC AND DIFF (AUTO) EOSINOPHIL S [#/VOLUME] IN BLOOD BY AUTOMATED COUNT 0.18 10*3/uL 0.03 - 0.44 04/07 Specimen Type: BLOOD No comment entered. Ordering Provider: JAMILA BARRON Report Released Date/Time: Apr 04, 2024 05:53 PM Reporting Lab: [facility] [place] [facility] [address] [facility] [address] Performing Lab: [facility] [place] [address] [address] [facility] [place] [facility] CBC AND DIFF (AUTO) BASOPHILS [#/VOLUME] IN BLOOD BY AUTOMATED COUNT 0.05 10*3/uL 0.01 - 0.13 04/07 Specimen Type: BLOOD No comment entered. Ordering Provider: JAMILA BARRON Report Released Date/Time: Apr 04, 2024 05:53 PM Reporting Lab: [facility] [place] [address] [address] Performing Lab: [facility] [place] [address] [address] [facility] CBC AND DIFF (AUTO) IMMATURE GRANULOCYT ES/100 LEUKOCYTES IN BLOOD BY AUTOMATED COUNT 0.5 0.0 - 0.7 04/07 Specimen Type: BLOOD No comment entered. Ordering Provider: JAMILA BARRON Report Released Date/Time: Apr 04, 2024 05:53 PM Reporting Lab: [facility] [place] [address] [address] Performing Lab: [facility] [place] [address] [address] [facility] [place] CBC AND DIFF (AUTO) IMMATURE GRANULOCYT ES [#/VOLUME] IN BLOOD 0.04 10*3/uL 0.00 - 0.06 04/07 Specimen Type: BLOOD No comment entered. Ordering Provider: JAMILA BARRON Report Released Date/Time: Apr 04, 2024 05:53 PM Reporting Lab: [facility] [place] [address] [address] Performing Lab: [facility] [place] [address] [address] [facility] [place] [facility] CBC AND DIFF (AUTO) NRBC % 0.0 0.0 - 0.0 04/07 Specimen Type: BLOOD No comment entered. Ordering Provider: JAMILA BARRON Report Released Date/Time: Apr 04, 2024 05:53 PM Reporting Lab: [facility] [place] [address] [address] Performing Lab: [facility] [place] [address] [address] [facility] [place] [facility] CBC AND DIFF (AUTO) NRBC, ABS 0.00 10*3/uL 0.00 - 0.00 04/07 Specimen Type: BLOOD No comment entered. Ordering Provider: JAMILA BARRON Report Released Date/Time: Apr 04, 2024 05:53 PM Reporting Lab: [facility] [place] [address] [address] Performing Lab: [facility] [place] [address] [address] [facility] [place] [facility] LIPID PANEL FASTING CHOLESTERO L [MASS/VOLU ME] IN SERUM OR PLASMA 139 mg/dL 04/07 Specimen Type: SERUM No comment entered. Ordering Provider: JAMILA BARRON Report Released Date/Time: Apr 04, 2024 05:53 PM Reporting Lab: [facility] [place] [facility] [address] [facility] [address] Performing Lab: [facility] [place] [facility] [address] [facility] [phone] [facility] LIPID PANEL FASTING TRIGLYCERI DE [MASS/VOLU ME] IN SERUM OR PLASMA 136 mg/dL 0 - 150 04/07 Specimen Type: SERUM No comment entered. Ordering Provider: JAMILA BARRON Report Released Date/Time: Apr 04, 2024 05:53 PM Reporting Lab: [facility] [place] [facility] [address] [facility] [phone] Performing Lab: [facility] [place] [address] [address] [facility] [place] [facility] LIPID PANEL FASTING CHOLESTERO L IN LDL [MASS/VOLU ME] IN SERUM OR PLASMA BY CALCRITU N 72 mg/dL 0 - 129 04/07 Specimen Type: SERUM No comment entered. Ordering Provider: JAMILA BARRON Report Released Date/Time: Apr 04, 2024 05:53 PM Reporting Lab: [facility] [place] [facility] [address] [facility] [phone] Performing Lab: [facility] [place] [facility] [address] [facility] [phone] [facility] [place] [facility] LIPID PANEL FASTING CHOLESTERO L.TOTAL/CH OLESTEROL IN HDL [MASS RATIO] IN SERUM OR PLASMA 3.5 04/07 Specimen Type: SERUM No comment entered. Ordering Provider: JAMILA BARRON Report Released Date/Time: Apr 04, 2024 05:53 PM Reporting Lab: [facility] [place] [facility] [address] [facility] [address] Performing Lab: [facility] [place] [facility] [address] [facility] [address] [facility] [place] [facility] LIPID PANEL FASTING CHOLESTERO L IN HDL [MASS/VOLU ME] IN SERUM OR PLASMA 40 mg/dL 40 - 60 04/07 Specimen Type: SERUM No comment entered. Ordering Provider: JAMILA BARRON Report Released Date/Time: Apr 04, 2024 05:53 PM Reporting Lab: [facility]ITALRL TRN [facility]USEST[facility] [address] [facility] [address] Performing Lab: [facility]PITALUSE[address] [address] [facility]ITALRL TRN [facility] LIVER FUNCTION PROTEIN [MASS/VOLU ME] IN SERUM OR PLASMA 6.8 g/dL 6.0 - 8.3 04/07 Specimen Type: SERUM No comment entered. Ordering Provider: JAMILA BARRON Report Released Date/Time: Apr 04, 2024 05:53 PM Reporting Lab: [facility]ITALRL [facility]N [facility]ITALUSE[address] [address] Performing Lab: [facility]ITALUSE[address] [address] [facility]ITALRL TRN [facility]USE [facility] LIVER FUNCTION ALBUMIN [MASS/VOLU ME] IN SERUM OR PLASMA 4.0 g/dL 3.5 - 5.0 04/07 Specimen Type: SERUM No comment entered. Ordering Provider: JAMILA BARRON Report Released Date/Time: Apr 04, 2024 05:53 PM Reporting Lab: [facility]ITALRL TRN [facility]USE[address] [address] Performing Lab: [facility] HOSPITALUSETS [address] [address] [facility]ITALRL TRN [facility]USE [facility] LIVER FUNCTION ALKALINE PHOSPHATAS E [ENZYMATIC ACTIVITY/V OLUME] IN SERUM OR PLASMA 118 U/L 40 - 150 04/07 Specimen Type: SERUM No comment entered. Ordering Provider: JAMILA BARRON Report Released Date/Time: Apr 04, 2024 05:53 PM Reporting Lab: [facility]ITALRL TRN [facility]ITALUSE[address] [address] Performing Lab: [facility]ITALUSE[address] [address] [facility] [place] [facility] LIVER FUNCTION ASPARTATE AMINOTRANS FERASE [ENZYMATIC ACTIVITY/V OLUME] IN SERUM OR PLASMA 30 U/L 5 - 34 04/07 Specimen Type: SERUM No comment entered. Ordering Provider: JAMILA BARRON Report Released Date/Time: Apr 04, 2024 05:53 PM Reporting Lab: [facility] [place] [facility] [address] [facility] [address] Performing Lab: [facility] [place] [facility] [address] [facility] [address] [facility] [place] [facility] LIVER FUNCTION ALANINE AMINOTRANS FERASE [ENZYMATIC ACTIVITY/V OLUME] IN SERUM OR PLASMA 23 U/L 04/07 Specimen Type: SERUM No comment entered. Ordering Provider: JAMILA BARRON Report Released Date/Time: Apr 04, 2024 05:53 PM Reporting Lab: [facility] [place] [address] [address] Performing Lab: [facility] [place] [address] [address] [facility] [place] [facility] LIVER FUNCTION BILIRUBIN. TOTAL [MASS/VOLU ME] IN SERUM OR PLASMA 1.0 mg/dL 0.2 - 1.2 04/07 Specimen Type: SERUM No comment entered. Ordering Provider: JAMILA BARRON Report Released Date/Time: Apr 04, 2024 05:53 PM Reporting Lab: [facility] [place] [address] [address] Performing Lab: [facility] [place] [address] [address] [facility] [place] [facility] TSH THYROTROPI N [UNITS/VOL UME] IN SERUM OR PLASMA 2.34 u[IU]/mL 0.35 - 5.00 04/07 Specimen Type: SERUM No comment entered. Ordering Provider: JAMILA BARRON Report Released Date/Time: Apr 04, 2024 05:53 PM Reporting Lab: [facility] [place] [facility] [address] [facility] [address] Performing Lab: [facility] [place] [facility] [address] [facility] [address] [facility] [place] [facility] URINALYS IS CLEAN CATCH COLOR OF URINE Yellow 04/07 Specimen Type: URINE Comment: If Glucose = >500 and Ketones are positive, please alert the Physician. Ordering Provider: JAMILA BARRON Report Released Date/Time: Apr 04, 2024 05:53 PM Reporting Lab: [facility] [place] [facility] [address] [facility] [address] Performing Lab: [facility] [place] [address] [address] [facility] [place] [facility] URINALYS IS CLEAN CATCH APPEARANCE OF URINE Clear 04/07 Specimen Type: URINE Comment: If Glucose = >500 and Ketones are positive, please alert the Physician. Ordering Provider: JAMILA BARRON Report Released Date/Time: Apr 04, 2024 05:53 PM Reporting Lab: [facility] [place] [address] [address] Performing Lab: [facility] [place] [address] [address] [facility]ITALRL WSTRN [facility]CH[place] [facility] URINALYS IS CLEAN CATCH GLUCOSE [MASS/VOLU ME] IN URINE Normalmg /dL 04/07 Specimen Type: URINE Comment: If Glucose = >500 and Ketones are positive, please alert the Physician. Ordering Provider: JAMILA BARRON Report Released Date/Time: Apr 04, 2024 05:53 PM Reporting Lab: [facility] [place] [address] [address] Performing Lab: [facility] [place] [address] [address] [facility] [place] [facility] URINALYS IS CLEAN CATCH KETONES [MASS/VOLU ME] IN URINE BY TEST STRIP NEGATIVE mg/dL 04/07 Specimen Type: URINE Comment: If Glucose = >500 and Ketones are positive, please alert the Physician. Ordering Provider: JAMILA BARRON Report Released Date/Time: Apr 04, 2024 05:53 PM Reporting Lab: [facility] [place] [facility] [address] [facility] [address] Performing Lab: [facility] [place] [facility] [address] [facility] [address] [facility] [place] [facility] URINALYS IS CLEAN CATCH ERYTHROCYT ES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 En[facility] [id number] 02/10 [facility] [place] [facility] [facility] [place] Encounter [id number] 02/13 [facility] [place] [facility] [facility] [place] Encounter [id number] 03/04 [facility] [place] [facility] [facility] [place] En[facility] [id number] 03/04 [facility] [place] [facility] [facility] [place] OFF/OP EST MAY X REQ PHY/QHP [id number] Diagnos is: ICD-10- CM Z71.89 Other specifi ed counselling psychologist JOSIE Duval 03/05 [facility] [place] [place] [facility] [place] OFFICE O/P EST LOW 20 MIN [id number] Diagnos is: ICD-10- CM L60.1 Onychol PASCUAL Lechuga 03/05 [facility] [place] [facility] [place] [facility] OFF/OP EST MAY X REQ PHY/QHP [id number] Diagnos is: ICD-10- CM Z48.01 Encount er for change or removal of surgica l wound KAVEH Fox L 03/06 [facility] [place] [facility] [place] [facility] En[facility] [id number] 03/18 [facility] [place] [facility] [place] [facility] OFF/OP CNSLTJ NEW/EST MOD 40 [id number] Diagnos is: ICD-10- CM H90.A31 Mix cndct/s nrl hear loss,un i,r ear w rstrcd hear cntra side JOSEPHINE DAVIS R 03/24 [facility] [place] [facility] [place] [facility] HEARING AID EXAM BOTH EARS [id number] Diagnos is: ICD-10- CM 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 Diagnos is: ICD-10- CM I10 Essenti al (primar y) hyperte nsion RICO BARRON RD D 04/13 [facility] [place] [facility] [place] En[facility] [id number] 1.04/14 [facility] [place] [facility] [facility] [place] En[facility] [id number] [facility] [place] [facility] [facility] [place] En[facility] [id number] 04/23 [facility] [place] [facility] [place] En[facility] [id number] 1.04/24 [facility] [place] [facility] [place] [facility] OFFICE O/P EST MOD 30 MIN [id number] Diagnos is: ICD-10- CM 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 RANCHO RODRIGUEZ 04/28 [facility] [place] [facility] [place] CONFORMITY EVALUATION [id number] Diagnos is: ICD-10- CM Z46.1 Encount er for fitting and adjustm ent of hearing aid Yossi HARRINGTON 05/05 [facility] [place] [place] [facility] [place] En[facility] [id number] 05/08 [facility] [place] [facility] [place] En[facility] [id number] 05/27 [facility] [place] [facility] [place] En[facility] [id number] 06/01 [facility] [place] [facility] [place] Encounter [id number] 06/03 [facility] [place] [facility] [place] En[facility] [id number] 06/06 [facility] [place] [facility] [place] En[facility] [id number] 06/15 [facility] [place] [facility] [place] En[facility] [id number] [facility] [place] [facility] [place] En[facility] [id number] [facility] [place] [facility] [place] Encounter [id number] 06/25 [facility] [place] [facility] [place] En[facility] [id number] 06/25 [facility] [place] [facility] [place]counter [id number] 06/26 [facility] [place] [facility] [place] Encounter [id number] 07/02 [facility] [place] [place] Encounter [id number] [facility] [place] [facility] Encounter [id number]/14 [facility] [place] Encounter [id number] 07/14 [facility] [place] Encounter [id number] 07/14 [facility] [place] Encounter [id number] 07/16 [facility] [place]counter [id number] 07/20 [facility] [place] En[facility] [id number] 08/06 [facility] [place] Encounter [id number] 08/17 [facility] [place] Encounter [id number] 08/24 [facility] [place] Encounter [id number] 08/27 [facility] [place] OFFICE O/P EST MOD 30 MIN [id number] Diagnos is: ICD-10- CM 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, hole, or pseudoh ole, right eye CALDERON,LACE Y J 09/01 [facility] [place] En[facility] [id number] 09/02 [facility] [place] Encounter [id number] 09/22 [facility] En[facility] [id number] 09/23 [facility] En[facility] [id number] 09/24 [facility] En[facility] [id number] 09/25 [facility] En[facility] [id number] 09/28 [facility] En[facility] [id number] 09/28 [facility] En[facility] [id number] 09/30 [facility] Encounter [id number] 10/04 [facility] En[facility] [id number] 10/11 [facility] [id number] 10/15 [facility] [place] [id number] 10/15 [facility] Social History Combined list of available smoking, tobacco, and other social history from Department of Defense and Veterans Affairs facilities. Social History Type Response Date Comment [facility] e Tobacco smoking status NHIS VA-TOBACCO FORMER USER 10/16/2023 [facility] History of tobacco use NM-TOBACCO QUIT 15 YRS OR MORE 10/16/2023 [facility] History of tobacco use VA-TOBACCO FORMER USER 07/04/2022 [facility] History of tobacco use NSG NO TOBACCO USE PAST 30 DAYS 03/27/2022 [place] History of tobacco use NSG NO TOBACCO USE PAST 30 DAYS 03/05/2022 [place] History of tobacco use NSG NO TOBACCO USE PAST 30 DAYS 03/02/2022 [place] History of tobacco use NM-TOBACCO FORMER USER 06/28/2021 [facility] History of tobacco use NM-TOBACCO FORMER USER 05/26/2020 [facility] History of tobacco use NM-TOBACCO NEVER USED 05/23/2018 [facility] Plan of Care List of future care activities from [facility] facilities. Additional future care activities may be listed in the Assessment and Plan section. Date/Time Care Activity Care Activity Detail Facili ty 11/11/2024 AMBULATORY - MEDICINE AMBULATORY - MEDICI [facility] Advance Directives List of completed, amended, or rescinded Advance Directives on record at [facility] facilities. An actual copy of the Directive is not included. Date Advance Directive Provider Source 02/19/2022 ADVANCE DIRECTIVE JOCE CASTORENA [facility] 11/16/2020 ADVANCE DIRECTIVE BYRON BARRON [facility]
== END 2024-10-21 16:01 | disposition home or self-care (01) ==
LOC: HO.HVNA 16:00
PROVIDERS: Visit Provider Internal Medicine
DX: M00.9 Pyogenic arthritis, unspecified (principal)
CPT/HCPCS: 36415; 82565; 84520; 85025; 86140

== ENCOUNTER 2024-10-26 14:12 | Outpatient (AMB) | payer OTHER, SELFPAY ==
--- NOTE | 2024-10-26 14:43 | MHC.OFFVIS ---
Vital Signs 10/26/24 14:46 Height 5 ft 6 in BP 138/78 Pulse 88 Pulse Oximetry (%) 96 Intake Visit Reasons: 3 wks follow up Allergies niacin Allergy (Severe, Verified 10/26/24 14:49) Upset Stomach procaine [From Novocain] Allergy (Severe, Verified 10/26/24 14:49) I GET MEAN simvastatin Adverse Reaction (Severe, Verified 10/26/24 14:49) myopathy HPI HPI 3 wks follow up: Details: He is doing well. He has nearly healed left ankle wound. He has no fever or chills. He has been tolerating Daptomycin. He has MSSA. [facility] Medical History Ankle fracture, lateral malleolus, closed Hyperlipidemia HTN (hypertension) CAD (coronary artery disease) Murmur, cardiac Chest pain COPD (chronic obstructive pulmonary disease) Asbestosis Surgical History S/P TAVR (transcatheter aortic valve replacement) Stented coronary artery Hx of cardiac catheterization Family History Father CAD (coronary artery disease) Mother No problems noted. Social History Household Members: None Housing: House Are you a primary care coordination manager to a significant other at home: No Do you presently have visiting nurse or other home services: Yes Comment: pt refusing bed alarm; ongoing Patient Tobacco Use Status: Former Tobacco user Tobacco use type: Cigarette and Cigar Years Smoked: 14 years old e-Cigarette/Vaping Use: Former Use Second Hand Smoke Exposure: No service: Yes Review of Systems Const All systems reviewed & are unremarkable except as noted in HPI and below Physical Exam Vital Signs: Last Vital Signs Pulse 88 10/26/24 14:46 BP 138/78 10/26/24 14:46 Pulse Ox 96 10/26/24 14:46 Const General: cooperative Orientation/consciousness: patient oriented x3 HEENT Head: Yes normal to inspection Mouth: Normal oral and palatal mucosa present Eyes General: appearance normal, both eyes and all related structures Pupils: Equal, round and reactive pupils present Resp Effort & Inspection: normal respiratory effort Cardio Rate: regular rate Rhythm: regular rhythm GI Palpation (GI): Soft to palpation and nontender General: Yes no CVA tenderness Back/Spine/Pelvis Back: no CVA tenderness Skin General skin exam: no rashes or lesions noted Neuro General: patient oriented x3 Cranial nerves: Yes CN's II-XII intact bilaterally and Yes Equal, round and reactive pupils present Extrem General: Yes normal to inspection Psych Appearance: grossly normal Assessment & Plan Assessment & Plan (1) 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 Finish November 06 and pull line. Po Doxycycline 100 mg bid one to two months. See in one month. 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
[2024-10-26 14:46] VITALS: BP 138/78; PULSE 88; O2SAT 96
--- OUTSIDE RECORDS SUMMARY | 2024-10-26 16:33 | XMS_ITS ---
Author Organization [facility] Address [address] [place] [address] Care Team Providers Care Criminal Justice Professor Name Role Phone Josue Simmons MD Primary Care Provider Unavailab Lyn Damico [phone] REASON FOR VISIT NOZZLEMAN PPWK Entered Encounters Encounter Location Date Provider Diagnosis [facility] [address] [place] [address] 03/12/2024 Lyn Lund Plan Of Treatment No Information Progress Notes * Reed MALLORY HDOB:1940 (83 yo M)Acc No.[id number]:03/12/2024 Patient:?Reed Mallory :1940???Age:83 Y???Sex:Male Address:[address] [place] [id number] * true * Date:? Generated for Printi ng/Faxing/eTransmitting on:?10/26/2024 04:33 PM EDT
--- OUTSIDE RECORDS SUMMARY | 2024-10-26 16:33 | XMS_ITS ---
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 [facility] [place] Address [address] [place] [address] Care Team Providers Care Back Tufter Name Role Phone BYRON BARRON Primary Care [...] Dec 19, 2007 MEDICAR E SUPPLEM E [id number] NYDIA HUERTA UL PATIENT [employer]UALTY MEDICARE SUPPLEMEN YORDAN Dec 19, 2007 MEDICAR E SUPPLEM E [id number] NYDIA HUERTA UL PATIENT [employer] [place] MEDICARE SUPPLEMEN YORDAN BANKE RS Dec 19, 2007 NONE [id number] NYDIA HUERTA UL PATIENT MEDICARE (WNR) MEDICARE (M) PART B Oct 13, 2006 PART B [id number] NYDAI HUERTA UL PATIENT MEDICARE (WNR) MEDICARE (M) PART B Oct 13, 2006 PART B [id number] [place] UL PATIENT MEDICARE (WNR) MEDICARE (M) PART B Oct 13, 2006 PART B [id number] [phone] NYDIA HUERTA PATIENT MEDICARE (WNR) MEDICARE (M) PART B Oct 13, 2006 PART B [id number] NYDIA HUERTA PATIENT MEDICARE (WNR) MEDICARE (M) PART A Sep 13, 2003 PART A [id number] [facility] [phone] NYDIA HUERTA PATIENT MEDICARE (WNR) MEDICARE (M) PART A Sep 13, 2003 PART A [id number] [phone] NYDIA HUERTA PATIENT MEDICARE (WNR) MEDICARE (M) PART A Sep 13, 2003 PART A [id number] NYDIA HUERTA PATIENT MEDICARE (WNR) MEDICARE (M) PART A Sep 13, 2003 PART A [id number] NYDIA HUERTA PATIENT Selected Encounter This [...] Primary/Secondary Diagnosis Diagnosis Name Provider Source Sep 28, 2024 09:44 AM PRIMARY Macular cyst, hole, or pseudohole, right eye TRINITY CALDERON [place] [facility] [place] [facility] Sep 28, 2024 09:44 AM SECONDARY Presbyopia TRINITY CALDERON [place] [facility] [place] [facility] Sep 28, 2024 09:44 AM SECONDARY Presence of intraocular lens TRINITY CALDERON [place] [facility] [place] [facility] Sep 28, 2024 09:44 AM SECONDARY Unspecified blepharitis unspecified eye, unspecified eyelid [facility] CALDERON [facility] Plan of Treatment: Future Appointments (+ 6 months) and Future Tests (+/- 45 days) The Plan of Treatment section includes future care activities for the patient from all [place] [facility] This section includes future appointments and future orders which are active, pending or scheduled. Future Appointments This section includes appointments that were scheduled to occur 6 months from the date of the Encounter, up to a maximum of 20 appointments. The data comes from all [place] treatment facilities. Appointment Date/Time Appointment Type Appointme nt Facility Name Sep 25, 2024 08:00 AM AMBULATORY [facility] Sep 25, 2024 10:00 AM AMBULATORY MEDIC[facility] Oct 05, 2024 01:00 PM AMBULATORY MEDICINE [facility] N[facility] Nov 11, 2024 02:30 PM AMBULATORY MEDICINE [facility] N[facility] TRN [facility] Jan 13, 2025 10:00 AM [facility] Active, Pending, and Scheduled Orders This section includes a listing of several types of active, pending, and scheduled orders, including clinic medications orders, diagnostic test orders, procedure orders and consult orders; where the start date of the order is 45 days before the date of the Encounter or 45 days after the date of theEncounter. The data comes from all [place] treatment [facility]. Test Date/Time Test Type Test Details Facility Name Sep 25, 2024 12:15 PM Consult Order [facility] Cons Manager [facility] Sep 25, 2024 04:51 PM Consult Order [facility] Cons Manager [facility] Social History: Smoking Status (Most current) [...] Darling blum Oct 16, 2023 01:30 PM [place]-TOBACCO QUIT 15 YRS OR MORE [facility] Tobacco Use History This section includes a history of the smoking, or tobacco-related health factors, that were collected on or before the date of the Encounter. The data comes from the [place] facility where the Encounter took place. Date/Time Smoking Status/Tobacco Use Comment F acility Oct 16, 2023 01:30 PM [place]-TOBACCO QUIT 15 YRS OR MORE [place] [facility] [place] [facility] Jul 04, 2022 11:00 AM VA-TOBACCO FORMER USER [place] [facility] [place] [facility] Jul 04, 2022 11:00 AM VA-TOBACCO QUIT 15 YRS OR MORE [place] [facility] [place] [facility] Jun 28, 2021 10:30 AM VA-TOBACCO FORMER USER [place] [facility] [place] [facility] Jun 28, 2021 10:30 AM VA-TOBACCO QUIT 15 YRS OR MORE [place] [facility] [place] [facility] May 26, 2020 08:00 AM VA-TOBACCO FORMER USER [place] [facility] [place] [facility] May 26, 2020 08:00 AM VA-TOBACCO QUIT 15 YRS OR MORE [place] [facility] [place] [facility] May 23, 2018 11:21 AM [facility] Advance Directives: All historical and [...] 19, 2022 ADVANCE DIRECTIVE JOCE CASTORENA [facility] November 16, 2020 ADVANCE DIRECTIVE BYRON BARRON [facility] Encounter Notes: All associated encounter [...] Dir: Prz2:0.00 Dir2: FITTING INFORMATION FPD:64 NPD:61 Zapata:R: L: SEG HT:R:13 L:13 Tint:None Shade:None VA Billable Items FRAME: KATERINE CIFUENTES [id number] Right Lens: POLY BIFOCAL FT28 PHOTOCHROMIC ALMEIDA 1.586 POLY Left Lens: POLY BIFOCAL FT28 PHOTOCHROMIC ALMEIDA 1.586 POLY KLEAR ANTI-REFLECTIVE COATING OD +1.50 -1.50 X90 Add:+2.75 Pzm:0.00 Dir: Prz2:0.00 Dir2: OS +1.50 -1.00 X90 Add:+2.75 Pzm:0.00 Dir: Prz2:0.00 Dir2: FITTING INFORMATION FPD:64 NPD:61 [place]ata:R: L: SEG HT:R:13 L:13 Tint:YELLOW Shade:1 VA Billable Items FRAME: KATERINE CIFUENTES [id number] Right Lens: POLY BIFOCAL FT28 1.586 POLY Left Lens: POLY BIFOCAL FT28 1.586 POLY SOLID TINT /tena CALDERON OD DAM TENDER ASSISTANT Signed: 09/01/2024 12:27 Receipt Acknowledged By: 09/01/2024 15:51 /tena SANDERSON OPTOMETRY TECH 09/01/2024 ADDENDUM STATUS: COMPLETED Optometry Health Mailer ordered patient 2 pair(s) of bifocal eyeglasses on 09/01/2024 as directed by provider. OPT HT entered consult(s) for order on behalf of provider. /eleanor/ JEANIE SANDERSON OPTOMETRY TECH Signed: 09/01/2024 15:55 TRINITY CALDERON [place] [facility] [place] [facility] Sep 01, 2024 07:18 AM OPTOMETRY NOTE: LOCAL TITLE: OPTOMETRY NOTE STANDARD TITLE: OPTOMETRY NOTE DATE OF NOTE: SEP 01, 2024@07:18 ENTRY DATE: SEP 01, 2024@07:19:07 AUTHOR: DAVIAN JONES EXP COSIGNER: TRINITY CALDERON URGENCY: STATUS: COMPLETED OPTOMETRY NOTE Has ADDENDA Active problems - Computerized Problem List is the source for the followin. Chronic dermatitis 2. Aortic valve stenosis 3. Chest Pain (RUST [id number]) 4. COPD - Chronic Obstructive Pulmonary Disease (RUST [id number]) 5. HTN - Hypertension (RUST [id number]) 6. Hypercholesterolemia (RUST [id number]) 7. Cataract 8. Asbestosis Active Outpatient Medications [...] year old MALE is seen today for CEE CARLOS: 07/25/2022 Chief Complaint: Reports he needs [...] (local) and dispensed from another [place] or [facility] facility (remote) as well as inpatient orders [...] JLV. Allergies/ADRs (Tool #5) FACILITY ALLERGY/ADR -------- [facility] PROCAINE [place] [facility] [facility] Med. Reconciliation (Tool #1) INCLUDED IN THIS LIST: Alphabetical list of active outpatient prescriptions dispensed from this [place] (local) and dispensed from another [place] or [facility] facility (remote) as well as inpatient orders (local pending and active), local clinic medications, locally documented non-VA medications, and local prescriptions that have or been discontinued in the past 90 days. Non-VA Meds Last Documented On: Apr 09, 2022 NOTE The display of VA prescriptions dispensed from another [place] or [facility] facility (remote) is limited to active outpatient prescription entries matched to National Drug File at the originating site and may not include some items such as investigational drugs, compounds, etc. NOT INCLUDED IN THIS LIST: Medications self-entered by the patient into personal health records (i.e. [facility]) are NOT included in this list. Non-VA medications documented outside this [place], remote inpatient orders (regardless of status) and remote clinic medications are NOT included in this list. The patient and provider must always discuss medications the patient is taking, regardless of where the medication was dispensed or obtained. Non-CA ASPIRIN 81MG CHEW TAB CHEW ONE TABLET BY MOUTH ONCE DAILY Patient wants to buy from Non-[place] pharmacy. OUTPT ATORVASTATIN CALCIUM 80MG TAB (Status = Discontinued) TAKE ONE TABLET BY MOUTH AT BEDTIME Rx# [id number] Last Released: 03/19/24 Qty/Days Supply: Rx Expiration Date: 06/19/24 Refills Remainin OUTPT ATORVASTATIN CALCIUM 80MG TAB (Status = Active) TAKE ONE TABLET BY MOUTH AT BEDTIME Rx# [id number] Last Released: 06/26/24 Qty/Days Supply: Rx Expiration [...] MOUTH ONCE DAILY TO LOWER CHOLESTEROL Rx# [id number] Last Released: 03/19/24 Qty/Days Supply: Rx Expiration Date: 06/19/24 Refills Remainin OUTPT EZETIMIBE 10MG TAB (Status = Active) TAKE ONE TABLET BY MOUTH ONCE DAILY TO LOWER CHOLESTEROL Rx# [id number] Last Released: 06/26/24 Qty/Days Supply: Rx Expiration Date: 06/26/25 Refills Remainin OUTPT HYDROCHLOROTHIAZIDE 25MG TAB (Status = ) TAKE ONE TABLET BY MOUTH ONCE DAILY Rx# [id number] Last Released: 03/31/24 Qty/Days Supply: Rx Expiration Date: 06/19/24 Refills Remainin OUTPT METOPROLOL SUCCINATE 50MG SA TAB (Status = Discontinued) TAKE ONE TABLET BY MOUTH ONCE DAILY FOR BLOOD PRESSURE/HEART Rx# [id number] Last Released: 03/19/24 Qty/Days Supply: Rx Expiration Date: 06/19/24 Refills Remainin OUTPT METOPROLOL SUCCINATE 50MG SA TAB (Status = Active) TAKE ONE TABLET BY MOUTH ONCE DAILY FOR BLOOD PRESSURE/HEART Rx# [id number] Last Released: 06/29/24 Qty/Days Supply: Rx Expiration Date: 06/26/25 Refills Remainin OUTPT TRIAMCINOLONE ACETONIDE 0.1% CREAM (Status = Active) APPLY A MODERATE AMOUNT TOPICALLY TWICE DAILY NEEDED FOR ITCHING Rx# [id number] Last Released: 10/28/23 Qty/Days Supply: /30 Rx Expiration Date: 10/24/24 Refills Remainin Indication: [...] about this medication emergency department. contact your VA healthcare team. DISCONTINUED A prescription your provider [...] the VA. Or, it may be an [id number] (OTC), herbal, dietary supplements or sample medication. [...] Medication Reconciliation List Offered and Declined by [place] () Medication Reconciliation List Printed for at Exam () Optometry HT Please Print and Mail Copy of Medication Reconciliation List () AMSA Please Print and Mail Copy of Medication Reconciliation List /es/ DAVIAN JONES OPTOMETRY STUDENT Signed: 09/01/2024 12:28 /es/ TRINITY CALDERON OD DAM TENDER ASSISTANT Cosigned: 09/01/2024 12:33 09/01/2024 ADDENDUM STATUS: COMPLETED The optometry mechanical engineering intern participated in this exam, I saw this [place] in conjunction with the optometry student. The [...] in student note. /eleanor/ TRINITY CALDERON OD DAM TENDER ASSISTANT Signed: 09/01/2024 12:34 09/28/2024 ADDENDUM STATUS: COMPLETED Correction: Chronic unspecified blepharitis RUL,RLL, BJORN & LLL /tena CALDERON OD DAM TENDER ASSISTANT Signed: 09/28/2024 08:52 DAVIAN JONES [place] [facility]
--- OUTSIDE RECORDS SUMMARY | 2024-10-26 16:33 | XMS_ITS | Encounter Summary ---
Author Organization [facility] Address [address] [place] [address] Care Team Providers Care Automotive Production Worker Name Role Phone Adam Noonan MD Primary Care Provider Unava ilable Reason for Visit * Reason Onset Date Comments medication problems 02/16/2019 Encounter Details Date Type Department Care Team Description 02/16/2019 Telephone Pulmonology - [place] [address] [facility] [address] [place] [address] Eric Tucker MD medication problems [...] on 02/08, [email or web address] * Telephone Encounter - Hannah Tucker - 02/16/2019 4:11 PM EDT [place] [facility] send a fax that they can't fill the prescription for ALBUTEROL SULFATE (PROAIR HFA) 108 (90 BASE) MCG/ACT Aero Soln for 11 refills It needs to be send to a local pharmacy. I call and spoke with the patient and he wants the medication to be send to [id number] - [place] - [phone] [facility] [address] documented in this encounter Plan of Treatment Not on file documented as of this encounter Visit Diagnoses Diagnosis Simple chronic bronchitis (HCC)- Primary Simple chronic bronchitis documented in this encounter Care Teams Automotive Production Worker Relationship Specialty Start Date End Date Adam Noonan MD PCP - General Internal Medicine 11/19/17 documented as of this encounter
--- OUTSIDE RECORDS SUMMARY | 2024-10-26 16:33 | XMS_ITS | Encounter Summary ---
Author Name [facility] [place] [facility] [place] Address [address] [place] [address] Care Team Providers Care Family Practice Medical Doctor Name Role Phone JOSUE SIMMONS Primary Care [...] Dec 19, 2007 MEDICAR E SUPPLEM E [id number] [phone] NYDIA HUERTA UL PATIENT [employer] CASUALTY MEDICARE SUPPLEMEN YORDAN Dec 19, 2007 MEDICAR E SUPPLEM E [id number] 63 NYDIA HUERTA UL PATIENT [employer] LIFE [employer] CASUALTY [place] MEDICARE SUPPLEMEN YORDAN BANKE RS Dec 19, 2007 NONE [id number] 63 NYDIA HUERTA UL PATIENT MEDICARE (WNR) MEDICARE (M) PART B Oct 13, 2006 PART B [id number] [phone] NYDIA HUERTA UL PATIENT MEDICARE (WNR) MEDICARE (M) PART B Oct 13, 2006 PART B [id number] [phone] [place] UL PATIENT MEDICARE (WNR) MEDICARE (M) PART B Oct 13, 2006 PART B [id number] NYDIA HUERTA PATIENT MEDICARE (WNR) MEDICARE (M) PART B Oct 13, 2006 PART B [id number] NYDIA HUERTA PATIENT MEDICARE (WNR) MEDICARE (M) PART A Sep 13, 2003 PART A [id number] NYDIA HUERTA PATIENT MEDICARE (WNR) MEDICARE (M) PART A Sep 13, 2003 PART A [id number] [phone] NYDIA HUERTA PATIENT MEDICARE (WNR) MEDICARE (M) PART A Sep 13, 2003 PART A [id number] NYDIA HUERTA PATIENT MEDICARE (WNR) MEDICARE (M) PART A Sep 13, 2003 PART A [id number] [phone] NYDIA HUERTA PATIENT Selected Encounter This section includes the information on record at [place] for the Encounter. Date/Time Encounter Type Encounter Description Reason Provider Source December 05, 2023 10:00 AM UNLISTED SPEC DERM SVC/PX DERMATOLOGY ICD-10-CM Z13.89 Encounter for screening for other disorder SALMA BEAUCHAMP [facility] Encounter Template Text not used by [place] Assessments - Encounter Diagnoses This section includes the primary and secondary diagnoses documented for the Encounter. Date/Time Primary/Secondary Diagnosis Diagnosis Name Provider Source Dec 28, 2023 08:14 AM PRIMARY Encounter for screening for other disorder [facility] BEAUCHAMP [facility] Plan of Treatment: Future Appointments (+ [...] 11:00 AM [facility] [place] [facility] Jan 13, 2024 01:20 PM AMBULATORY - MEDICINE [place] [facility] [place] [facility] Jan 21, 2024 08:00 AM AMBULATORY - MEDICINE [place] [facility] [place] [facility] Feb 03, 2024 01:30 PM AMBULATORY - REHAB MEDICIN E [place] [facility] [place] [facility] Mar 05, 2024 08:00 AM AMBULATORY - MEDICINE [place] [facility] [place] [facility] Mar 05, 2024 09:00 AM AMBULATORY - MEDICINE [place] [facility] [place] [facility] Mar 06, 2024 08:00 AM AMBULATORY - MEDICINE [place] [facility] [place] [facility] Mar 24, 2024 02:00 PM AMBULATORY - MEDICINE [place] [facility] [place] [facility] Mar 31, 2024 09:30 AM AMBULATORY - REHAB MEDICIN E [place] [facility] [facility] Apr 13, 2024 01:30 PM AMBULATORY - MEDICINE [place] [facility] [place] [facility] Apr 28, 2024 02:00 PM AMBULATORY - MEDICINE [place] [facility] [place] [facility] May 05, 2024 02:00 PM AMBULATORY - REHAB MEDICIN E [place] [facility] [place] [facility] Social History: Smoking Status (Most current) and [...] 15 YRS OR MORE [place] [facility] Tobacco Use History This section includes a history of the smoking, or tobacco-related health factors, that were collected on or before the date of the Encounter. The data comes from the [place] facility where the Encounter took place. Date/Time Smoking Status/Tobacco Use Comment F acility Oct 16, 2023 01:30 PM VA-TOBACCO QUIT 15 YRS OR MORE [place] [facility] [place] [facility] Jul 04, 2022 11:00 AM VA-TOBACCO FORMER USER [place] [facility] [facility] Jul 04, 2022 11:00 AM VA-TOBACCO QUIT 15 YRS OR MORE [place] [facility] [facility] Jun 28, 2021 10:30 AM VA-TOBACCO FORMER USER [place] [facility] [place] [facility] Jun 28, 2021 10:30 AM VA-TOBACCO QUIT 15 YRS OR MORE [place] [facility] [place] [facility] May 26, 2020 08:00 AM VA-TOBACCO FORMER USER [place] [facility] [place] [facility] May 26, 2020 08:00 AM VA-TOBACCO QUIT 15 YRS OR MORE [place] [facility] [place] [facility] May 23, 2018 11:21 AM VA-TOBACCO NEVER USED [place] [facility] [place] [facility] Advance Directives: All historical and current Section [...] DIRECTIVE JOCE CASTORENA [place] [facility] [place] [facility] November 16, 2020 ADVANCE DIRECTIVE JOSUE SIMMONS [place] [facility] [place] [facility] Encounter Notes: All associated [...] Teledermatology appt. REMOTE RESULTS RUBI Document from: [facility] Associated on: December 05, 2023@15:06:48 LOCAL TITLE: [...] satisfactory EXAM: 8 mm brown macule with diamond cleaner medial pole. IMPRESSION BASED ON IMAGES [...] RESULTS * /eleanor/ SALMA BEAUCHAMP TELEHEALTH CLINICAL PUBLIC RELATIONS Signed: 12/05/2023 15:23 Receipt Acknowledged By: 12/10/2023 10:52 /es/ RANCHO RODRIGUEZ DNP, DELIVERY NURSE-C NURSE PRACTITIONER 12/05/2023 15:32 /es/ Josue Simmons MD Staff Physician SALMA BEAUCHAMP [place] [facility] [place] [facility] December 05, 2023 09:57 AM TELEHEALTH CONSULT : LOCAL TITLE: CONSULT REPORT/TELEDERMATOLOGY IMAGING REQUEST STANDARD TITLE: TELEHEALTH CONSULT DATE OF NOTE: DECEMBER 05, 2023@09:57 ENTRY DATE: DECEMBER 05, 2023@09:57:18 AUTHOR: SALMA BEAUCHAMP EXP COSIGNER: URGENCY: STATUS: [...] Symptoms CHANGES: unsure TREATMENT: No BIOPSY: No Application Security Specialist's comments: Imaged per providers direction and facility protocol /eleanor/ SALMA BEAUCHAMP TELEHEALTH CLINICAL PUBLIC RELATIONS Signed: 12/05/2023 10:32 SALMA BEAUCHAMP [facility]
--- OUTSIDE RECORDS SUMMARY | 2024-10-26 16:33 | XMS_ITS ---
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 [place] Organization [facility] [place] [facility] [place] Address [address] [place] [address] Care Team Providers Care Care Associate Name Role Phone BYRON BARRON Primary Care [...] Dec 19, 2007 MEDICAR E SUPPLEM E [id number] NYDIA HUERTA UL PATIENT [employer] MEDICARE SUPPLEMEN YORDAN Dec 19, 2007 MEDICAR E SUPPLEM E [id number] NYDIA HUERTA UL PATIENT [employer] [place] MEDICARE SUPPLEMEN YORDAN BANKE RS Dec 19, 2007 NONE [id number] [phone] NYDIA HUERTA UL PATIENT MEDICARE (WNR) MEDICARE (M) PART B Oct 13, 2006 PART B [id number] NYDIA HUERTA UL PATIENT MEDICARE (WNR) MEDICARE (M) PART B Oct 13, 2006 PART B [id number] [phone] [place] UL PATIENT MEDICARE (WNR) MEDICARE (M) PART B Oct 13, 2006 PART B [id number] NYDIA HUERTA PATIENT MEDICARE (WNR) MEDICARE (M) PART B Oct 13, 2006 PART B [id number] NYDIA HUERTA PATIENT MEDICARE (WNR) MEDICARE (M) PART A Sep 13, 2003 PART A [id number] [phone] NYDIA HUERTA PATIENT MEDICARE (WNR) MEDICARE (M) PART A Sep 13, 2003 PART A [id number] NYDIA HUERTA PATIENT MEDICARE (WNR) MEDICARE (M) PART A Sep 13, 2003 PART A [id number] NYDIA HUERTA PATIENT MEDICARE (WNR) MEDICARE (M) PART A Sep 13, 2003 PART A [id number] NYDIA HUERTA PATIENT Selected Encounter This section includes the information on record at [place] for the Encounter. Date/Time Encounter Type Encounter Description Reason Provider Source Apr 28, 2024 02:00 PM OFFICE O/P EST MOD 30 MIN DERMATOLOGY ICD-10-CM Z85.828 Personal history of other malignant neoplasm of skin MICHEL RODRIGUEZ Aranza Encounter Template Text not used by [place] Assessments - Encounter Diagnoses This section includes the primary and secondary diagnoses documented for the Encounter. Date/Time Primary/Secondary Diagnosis Diagnosis Name Provider Source May 08, 2024 11:59 AM PRIMARY Personal history of other malignant neoplasm of skin LAITH RODRIGUEZ [facility] [place] [facility] May 08, 2024 11:59 AM SECONDARY Hemangioma of skin and subcutaneous tissue LAITH RODRIGUEZ [facility] [place] [facility] May 08, 2024 11:59 AM SECONDARY Inflamed seborrheic keratosis LAITH RODRIGUEZ [facility] [place] [facility] May 08, 2024 11:59 AM SECONDARY Nevus, non-neoplastic LAITH RODRIGUEZ [facility] [place] [facility] May 08, 2024 11:59 AM SECONDARY Other melanin hyperpigmentation [facility] [place] [facility] May 08, 2024 11:59 AM SECONDARY Other seborrheic keratosis [facility] [place] [facility] May 08, 2024 11:59 AM SECONDARY Xerosis cutis [facility] [place] [facility] Plan of Treatment: Future Appointments (+ 6 months) and Future Tests (+/- 45 days) The Plan of Treatment section includes future care activities for the patient [facility] [place] [facility]. This section includes future appointments [...] 2024 02:00 PM AMBULATORY - [facility] [place] [facility] Jun 16, 2024 01:15 PM AMBULATORY - MEDICINE [place] [facility] [place] [facility] Jul 14, 2024 02:45 PM AMBULATORY - MEDICINE [place] [facility] [place] [facility] Jul 20, 2024 08:00 AM AMBULATORY - MEDICINE [place] [facility] [place] [facility] Sep 01, 2024 11:00 AM AMBULATORY - MEDICINE [place] [facility] [place] [facility] Sep 25, 2024 08:00 AM AMBULATORY - MEDICINE [place] [facility] [place] [facility] Sep 25, 2024 10:00 AM AMBULATORY - MEDICINE [place] [facility] [place] [facility] Oct 05, 2024 01:00 PM AMBULATORY - MEDICINE [place] [facility] [place] [facility] Lab Results: +/- 30 days [...] Type Result - Unit Interpretation Reference Range Specimen Type Comment Apr 07, 2024 07:31 AM [place] [facility] [place] [facility] LIVER FUNCTION SERUM Specimen Type: SERUM No comment entered. Ordering Provider: BYRON BARRON Report Released Date/Time: Apr 04, 2024 05:53 PM Reporting Lab: [facility] [address] [facility] [address] Performing Lab: [address] [address] PROTEIN,TOTAL 6.8 g/dL 6.0-8.3 ALBUMIN 4.0 g/dL 3.5-5.0 ALKALINE PHOSPHATASE 118 U/L 40-150 AST 30 U/L 5-34 ALT 23 U/L BILIRUBIN, TOTAL 1.0 mg/dL 0.2-1.2 Apr 07, 2024 07:31 AM [facility] BASIC METABOLIC PANEL (fasting) SERUM Specime n Type: SERUM No comment entered. Ordering Provider: BYRON BARRON Report Released Date/Time: Apr 04, 2024 05:53 PM Reporting Lab: [address] [address] Performing Lab: [address] [address] UREA NITROGEN 22 mg/dL 7-25 GLUCOSE 93 mg/dL 65-100 SODIUM 139 mmol/L 135-145 POTASSIUM 3.9 mmol/L 3.5-5.0 CHLORIDE 102 mmol/L 100-110 CO2 26 meq/L 20-30 CREATININE, Serum 0.92 mg/dL 0.50-1.40 eGFR(CKD-EPI 2020) 82 mL/min >60 Apr 07, 2024 07:31 AM [facility] TSH SERUM Specimen Type: SERUM No comment entered. Ordering Provider: BYRON BARRON Report Released Date/Time: Apr 04, 2024 05:53 PM Reporting Lab: [address] [address] Performing Lab: [address] [address] TSH 2.34 u[IU]/mL 0.35-5.00 Apr 07, 2024 07:31 AM [facility] LIPID PANEL FASTING SERUM Specimen Type: SERU M No comment entered. Ordering Provider: BYRON BARRON Report Released Date/Time: Apr 04, 2024 05:53 PM Reporting Lab: [facility] [address] [facility] [address] Performing Lab: [facility] [address] [address] CHOLESTEROL 139 mg/dL TRIGLYCERIDE 136 mg/dL 0-150 LDL calculated 72 mg/dL 0-129 CHOL/HDL 3.5 HDL CHOLESTEROL 40 mg/dL 40-60 Apr 07, 2024 07:31 AM [facility] CBC AND DIFF (AUTO) BLOOD Specimen Type: BLOO D No comment entered. Ordering Provider: BYRON BARRON Report Released Date/Time: Apr 04, 2024 05:53 PM Reporting Lab: [facility] [address] [facility] [address] Performing Lab: [address] [address] WBC 7.77 10*3/uL 4.50-11.00 RBC 4.29 10*6/uL [...] 0.5 0.0-0.7 IMMATURE GRAN, ABS 0.04 10*3/uL 0.00-0.0 6 NRBC % 0.0 0.0-0.0 NRBC, ABS 0.00 10*3/uL 0.00-0.00 Apr 07, 2024 07:31 AM [facility] URINALYSIS CLEAN CATCH URINE Specimen Type: U RINE Comment: If Glucose = >500 and Ketones are positive, please alert the Physician. Ordering Provider: BYRON BARRON Report Released Date/Time: Apr 04, 2024 05:53 PM Reporting Lab: [facility] [address] [facility] [address] Performing Lab: [address] [address] UA COLOR Yellow Yellow UA APPEARANCE Clear [...] 16, 2023 01:30 PM VA-TOBACCO FORMER USER [facility] Tobacco Use History This section includes a history of the smoking, or tobacco-related health factors, that were collected on or before the date of the Encounter. The data comes from the [place] facility where the Encounter took place. Date/Time Smoking Status/Tobacco Use Comment F dennis Oct 16, 2023 01:30 PM VA-TOBACCO QUIT 15 YRS OR MORE [facility] Jul 04, 2022 11:00 AM VA-TOBACCO FORMER USER [facility] Jul 04, 2022 11:00 AM VA-TOBACCO QUIT 15 YRS OR MORE [place] [facility] [place] [facility] Jun 28, 2021 10:30 AM VA-TOBACCO FORMER USER [place] [facility] [facility] Jun 28, 2021 10:30 AM VA-TOBACCO QUIT 15 YRS OR MORE [place] [facility] [place] [facility] May 26, 2020 08:00 AM VA-TOBACCO FORMER USER [place] [facility] [place] [facility] May 26, 2020 08:00 AM VA-TOBACCO QUIT 15 YRS OR MORE [place] [facility] [place] [facility] May 23, 2018 11:21 AM VA-TOBACCO NEVER USED [facility] Advance Directives: All [...] Feb 19, 2022 ADVANCE DIRECTIVE J[facility]E [facility] November 16, 2020 ADVANCE DIRECTIVE BYRON BARRON [facility] Encounter Notes: All associated encounter [...] Reviewed records from last Dermatology visit: 04/30/23 [place] reports an itchy area on back. Has been using TAC 0.1% which is effective but unable to reach area well. denies any other new/changing/bleeding/non-hea ling lesions. REVIEW OF SYSTEMS: Constitutional-neg Skin/Hair/Nails-see HPI DermHx: -BCC, nose s/p Mohs at [facility] ~2013 per (private insurance) Family Hx: Denies [...] lesions or changes #Seborrheic Keratoses, Inflamed -The [place] was educated regarding the benign nature, but [...] applicator mailed per request #Seborrheic Keratoses: -The [place] was educated regarding the benign nature, but [...] liberal emollients RTC 6-12m, sooner PRN * [place] educated to RTC young if any new, changing, symptomatic lesions. * Education on sun protection and avoidance strategies was provided. * Differential diagnosis, prescription options and risks/benefits were discussed with the patient, who consented to treatment plan. * [place] consented to photography for documentation if indicated. [...] of active outpatient prescriptions dispensed from this [place] (local) and dispensed from another [place] or [facility] facility (remote) as well as inpatient orders [...] next appointment, whether with a VA or non-[place] provider. JLV Link Data on this list may not be complete. Please check JLV. Allergies/ADRs (Tool #5) FACILITY ALLERGY/ADR -------- [facility] [place] [facility] (Tool #1) INCLUDED IN THIS LIST: Alphabetical list of active outpatient prescriptions dispensed from this [place] (local) and dispensed from another [place] or [facility] facility (remote) as well as inpatient orders (local pending and active), local clinic medications, locally documented non-VA medications, and local prescriptions that have or been discontinued in the past 90 days. Non-VA Meds Last Documented On: Apr 09, 2022 NOTE The display of VA prescriptions dispensed from another [place] or [facility] facility (remote) is limited to active outpatient prescription entries matched to National Drug File at the originating site and may not include some items such as investigational drugs, compounds, etc. NOT INCLUDED IN THIS LIST: Medications self-entered by the patient into personal health records (i.e. Gone!) are NOT included in this list. Non-VA medications documented outside this [place], remote inpatient orders (regardless of status) and [...] ONE TABLET BY MOUTH AT BEDTIME Rx# [id number] Last Released: 03/19/24 Qty/Days Supply: Rx Expiration Date: 06/19/24 Refills Remainin OUTPT CEPHALEXIN 500MG CAP (Status = ) TAKE ONE CAPSULE BY MOUTH EVERY 8 HOURS FOR INFECTION Rx# [id number] Last Released: 03/05/24 Qty/Days Supply: 01/02 Rx Expiration Date: 04/04/24 Refills Remainin Indication: FOR INFECTION CAUSED BY BACTERIA OUTPT EZETIMIBE 10MG TAB (Status = Active) TAKE ONE TABLET BY MOUTH ONCE DAILY TO LOWER CHOLESTEROL Rx# [id number] Last Released: 03/19/24 Qty/Days Supply: Rx Expiration Date: 06/19/24 Refills Remainin OUTPT FLUTICAS 250/SALMETEROL 50 INHL DISK 60 (Status = ) INHALE 1 PUFF BY MOUTH TWICE DAILY - RINSE MOUTH AFTER USE Rx# [id number] Last Released: 05/31/23 Qty/Days Supply: Rx Expiration Date: 03/07/24 Refills Remainin Indication: FOR BRONCHOSPASM PREVENTION WITH COPD OUTPT FLUTICASONE PROP 50MCG 120D NASAL INHL (Status = ) INSTILL 1 SPRAY INTO EACH NOSTRIL ONCE DAILY NEEDED FOR NASAL IRRITATION/INFLAMMATION Rx# [id number] Last Released: 05/31/23 Qty/Days Supply: 08/13 Rx Expiration Date: 04/15/24 Refills Remainin Indication: FOR NASAL IRRITATION/INFLAMMATION OUTPT HYDROCHLOROTHIAZIDE 25MG TAB (Status = Active) TAKE ONE TABLET BY MOUTH ONCE DAILY Rx# [id number] Last Released: 03/31/24 Qty/Days Supply: Rx Expiration Date: 06/19/24 Refills Remainin OUTPT METOPROLOL SUCCINATE 50MG SA TAB (Status = Active) TAKE ONE TABLET BY MOUTH ONCE DAILY FOR BLOOD PRESSURE/HEART Rx# [id number] Last Released: 03/19/24 Qty/Days Supply: Rx Expiration Date: 06/19/24 Refills Remainin OUTPT TRIAMCINOLONE ACETONIDE 0.1% CREAM (Status = Active) APPLY A MODERATE AMOUNT TOPICALLY TWICE DAILY NEEDED FOR ITCHING Rx# [id number] Last Released: 10/28/23 Qty/Days Supply: Rx Expiration Date: 10/24/24 Refills Remainin Indication: FOR ITCHING SUPPLIES /eleanor/ RANCHO RODRIGUEZ DNP, SALES PROMOTION DIRECTOR-C NURSE PRACTITIONER Signed: 04/28/2024 14:32 RANCHO RODRIGUEZ [facility]
--- OUTSIDE RECORDS SUMMARY | 2024-10-26 16:33 | XMS_ITS | Patient Health Record ---
Author Organization [facility] david [place] Address [address] [place] [address] Care Team Providers Care Degreaser Name Role Phone Josue Simmons MD Primary Care Provider Lyn Aquino Unavailable [phone] Allergies Allergen (clinical drug ingredient) Drug/Non Drug [...] primary osteoarthritis of the ankle and/or foot ([id number]) Primary osteoarthrit is, right ankle and foot (M19.071) Active confirmed Encounters Encounter Location Date Provider Diagnosis [facility] [place] [address] [place] [address] 03/09/2024 Lyn Lund [facility] [place] [address] [place] [address] 03/12/2024 Lyn Lund [facility] [place] [address] [facility] [place] [address] 04/02/2024 Lyn Lund Plan Of Treatment Pending Test Test Name Order Date X ray : Foot, right 3V 01/20/2015 X ray : Ankle, right 3V 03/04/2017 Insurance Providers Payer Name Payer Address Payer Phone Subscriber Number Group Number Insured Name Patient Relationship to Insured Coverage Start Date Coverage End Date Medicare [employer] [address] [place] [address] [id number] Reed Mallory Self - patient is the insured [employer] [address] [place] [address] Reed Mallory Self - patient is the [...]
--- OUTSIDE RECORDS SUMMARY | 2024-10-26 16:33 | XMS_ITS | Encounter Summary ---
Author Organization [facility] Address [address] [place] [address] Care Team Providers Care Laborer Driver Name Role Phone Adam Noonan MD Primary Care Provider Unava ilable Reason for Visit * Reason Onset Date Comments Medication 02/11/2018 Encounter Details Date Type Department Care Team Description 02/11/2018 Telephone Pulmonology - [place] [address] [place] [address] Eric Tucker MD Medication Social [...] Primary documented in this encounter Care Teams Laborer Driver Relationship Specialty Start Date End Date Adam Noonan MD PCP - General Internal Medicine 11/19/17 documented as of this encounter
--- OUTSIDE RECORDS SUMMARY | 2024-10-26 16:34 | XMS_ITS | Encounter Summary ---
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 Organization [place] Address [address] [place] [address] Care Team Providers Care Electric Motor Control Assembler Name Role Phone BYRON BARRON Primary [...] Dec 19, 2007 MEDICAR E SUPPLEM E [id number] NYDIA HUERTA UL PATIENT [employer] MEDICARE SUPPLEMEN YORDAN Dec 19, 2007 MEDICAR E SUPPLEM E [id number] NYDIA HUERTA UL PATIENT [employer] [place] MEDICARE SUPPLEMEN YORDAN BANKE RS Dec 19, 2007 NONE [id number] NYDIA HUERTA UL PATIENT MEDICARE (WNR) MEDICARE (M) PART B Oct 13, 2006 PART B [id number] [facility] NYDIA HUERTA UL PATIENT MEDICARE (WNR) MEDICARE (M) PART B Oct 13, 2006 PART B [id number] NYDIA HUERTA UL PATIENT MEDICARE (WNR) MEDICARE (M) PART B Oct 13, 2006 PART B [id number] [phone] NYDIA HUERTA PATIENT MEDICARE (WNR) MEDICARE (M) PART B Oct 13, 2006 PART B [id number] NYDIA HUERTA PATIENT MEDICARE (WNR) MEDICARE (M) PART A Sep 13, 2003 PART A [id number] [phone] NYDIA UHERTA PATIENT MEDICARE (WNR) MEDICARE (M) PART A Sep 13, 2003 PART A [id number] NYDIA HUERTA PATIENT MEDICARE (WNR) MEDICARE (M) PART A Sep 13, 2003 PART A [id number] NYDIA HUERTA PATIENT MEDICARE (WNR) MEDICARE (M) PART A Sep 13, 2003 PART A [id number] NYDIA HUERTA PATIENT Selected Encounter This section includes the information on record at [place] for the Encounter. Date/Time Encounter Type Encounter Description Reason Provider Source May 05, 2024 02:00 PM CONFORMITY EVALUATION AUDIOLOGY ICD-10-CM Z46.1 Encounter for fitting and adjustment of hearing aid SAAD HARRINGTON [facility] Encounter Template Text not used by [place] Assessments - Encounter Diagnoses This section includes the primary and secondary diagnoses documented for the Encounter. Date/Time Primary/Secondary Diagnosis Diagnosis Name Provider Source May 05, 2024 02:35 PM PRIMARY Encounter for fitting and adjustment of hearing aid SAAD HARRINGTON [facility] [place] [facility] May 05, 2024 02:35 PM SECONDARY Mixed conductive and sensorineural hearing loss, bilateral SAAD HARRINGTON [facility] [place] [facility] Plan of Treatment: Future Appointments [...] - MEDICINE ND C [facility] [place] [facility] Jul 14, 2024 02:45 PM AMBULATORY - MEDICINE ND C [facility] [facility] Jul 20, 2024 08:00 AM AMBULATORY - MEDICINE ND C [facility] [place] [facility] Sep 01, 2024 11:00 AM AMBULATORY - MEDICINE ND C [facility] [place] [facility] Sep 25, 2024 08:00 AM AMBULATORY - MEDICINE ND C [facility] [place] [facility] Sep 25, 2024 10:00 AM AMBULATORY - MEDICINE ND C [facility] [place] [facility] Oct 05, 2024 01:00 PM AMBULATORY - MEDICINE [place] [facility] Lab Results: +/- 30 days [...] Type Comment Apr 07, 2024 07:[address] [facility] LIVER FUNCTION SERUM Specimen Type: SERUM No comment entered. Ordering Provider: BYRON BARRON Report Released Date/Time: Apr 04, 2024 05:53 PM Reporting Lab: [address] [address] Performing Lab: [address] [address] PROTEIN,TOTAL 6.8 g/dL 6.0-8.3 ALBUMIN 4.0 g/dL 3.5-5.0 ALKALINE PHOSPHATASE 118 U/L 40-150 AST 30 U/L 5-34 ALT 23 U/L BILIRUBIN, TOTAL 1.0 mg/dL 0.2-1.2 Apr 07, 2024 07:[address] [facility] BASIC METABOLIC PANEL (fasting) SERUM Specime n Type: SERUM No comment entered. Ordering Provider: BYRON BARRON Report Released Date/Time: Apr 04, 2024 05:53 PM Reporting Lab: [facility] [place] [facility] [address] [address] Performing Lab: [place] [facility] [place] [facility] [address] [address] UREA NITROGEN 22 mg/dL 7-25 GLUCOSE 93 mg/dL 65-100 SODIUM 139 mmol/L 135-145 POTASSIUM 3.9 mmol/L 3.5-5.0 CHLORIDE 102 mmol/L 100-110 CO2 26 meq/L 20-30 CREATININE, Serum 0.92 mg/dL 0.50-1.40 eGFR(CKD-EPI 2020) 82 mL/min >60 Apr 07, 2024 07:31 AM [facility] TSH SERUM Specimen Type: SERUM No comment entered. Ordering Provider: BYRON BARRON Report Released Date/Time: Apr 04, 2024 05:53 PM Reporting Lab: [facility] [place] [address] [address] Performing Lab: [facility] [address] [address] TSH 2.34 u[IU]/mL 0.35-5.00 Apr 07, 2024 07:31 AM [facility] LIPID PANEL FASTING SERUM Specimen Type: SERU M No comment entered. Ordering Provider: BYRON BARRON Report Released Date/Time: Apr 04, 2024 05:53 PM Reporting Lab: [facility] [place] [address] [address] Performing Lab: [facility] [address] [address] CHOLESTEROL 139 mg/dL TRIGLYCERIDE 136 mg/dL 0-150 LDL calculated 72 mg/dL 0-129 CHOL/HDL 3.5 HDL CHOLESTEROL 40 mg/dL 40-60 Apr 07, 2024 07:31 AM [facility] CBC AND DIFF (AUTO) BLOOD Specimen Type: BLOO D No comment entered. Ordering Provider: BYRON BARRON Report Released Date/Time: Apr 04, 2024 05:53 PM Reporting Lab: [facility] [place] [address] [address] Performing Lab: [facility] [address] [address] WBC 7.77 10*3/uL 4.50-11.00 RBC 4.29 10*6/uL [...] 10*3/uL 0.00-0.00 Apr 07, 2024 07:31 AM [facility] URINALYSIS CLEAN CATCH URINE Specimen Type: U RINE Comment: If Glucose = >500 and Ketones are positive, please alert the Physician. Ordering Provider: BYRON BARRON Report Released Date/Time: Apr 04, 2024 05:53 PM Reporting Lab: [facility] [address] [address] Performing Lab: [address] [address] UA COLOR Yellow Yellow UA APPEARANCE Clear [...] 16, 2023 01:30 PM VA-TOBACCO FORMER USER [place] [facility]TR[facility] [facility] Tobacco Use History This section includes a history of the smoking, or tobacco-related health factors, that were collected on or before the date of the Encounter. The data comes from the [place] facility where the Encounter took place. Date/Time Smoking Status/Tobacco Use Comment F acility Oct 16, 2023 01:30 PM VA-TOBACCO QUIT 15 YRS OR MORE [place] [facility] [place] [facility] Jul 04, 2022 11:00 AM VA-TOBACCO FORMER USER [place] [facility] [facility] Jul 04, 2022 11:00 AM VA-TOBACCO QUIT 15 YRS OR MORE [place] [facility] [place] [facility] Jun 28, 2021 10:30 AM VA-TOBACCO FORMER USER [place] [facility] [place] [facility] Jun 28, 2021 10:30 AM VA-TOBACCO QUIT 15 YRS OR MORE ND [facility] [place] [facility] May 26, 2020 08:00 AM VA-TOBACCO FORMER USER [place] [facility] [place] [facility] May 26, 2020 08:00 AM VA-TOBACCO QUIT 15 YRS OR MORE [place] [facility] [place] [facility] May 23, 2018 11:21 AM VA-TOBACCO NEVER USED [place] [facility]TR[facility] [facility] Advance Directives: All historical and [...] Provider Source Feb 19, 2022 ADVANCE DIRECTIVE EDERLENOJOCE ARROYOAN [facility] November 16, 2020 ADVANCE DIRECTIVE BYRON BARRON [facility] Encounter Notes: All associated encounter notes [...] loss Hearing Aid Fitting: SUBJECTIVE (S): The Mcintosh was seen for hearing aid fitting and issuance. S/He had previously been evaluated and found to exhibit significant hearing loss for which amplification was recommended. How does the patient/client best learn? verbal instruction, demonstration Does the patient/client have any cultural and pentecostal beliefs, emotional barriers, physical or cognitive limitations, and communication barriers which may impact his/her ability to learn? no Desire and motivation to learn? Good OBJECTIVE (O): Physical fit of earmolds/receivers and domes/hearing aids was good. verified comfort. Verification of an appropriate acoustic response was obtained using Real Ear measurements (speech mapping) and NAL- NL1 targets. The reported good subjective benefit as well. Feedback manager placement was run. Hearing aids were found to be meeting targets adequately and MPO was not exceeding estimated UCL. Settings stored in LARA. ASSESSMENT (A): The following device(s) was/were issued: Leo: Bonita Model: Evolv BTE R Serial Numbers:[id number] Battery size: RECHARGEABLE Trial Period ends: 09-30-24 Domes/wax guards, etc.: n/a Earmold Information: clear lucite canal lock Crab Picker size/power: n/a Program Settings (VC, Programs, Buttons): [...] and reports confidence/understanding in all items reviewed. Mcintosh was given written reference materials today. The Mcintosh was informed of and agreed to [place] policy on hearing aid issuance: Users are responsible for the maintenance and security of their devices. Determination of need to replace a hearing aid is made by the [place] service dismantler. Hearing aids will not be replaced in [...] Family F Significant Other SO Verbalizes Understanding TAI Returns Demonstration ALEXUS Performs Independently PI Lacks Comprehension LC Refused Education RE Not Applicable NA /eleanor/ Alcon GERONIMO, [facility] STAFF DROP WIRE ALIGNER Signed: 05/05/2024 14:44 [facility]AD [facility]
--- OUTSIDE RECORDS SUMMARY | 2024-10-26 16:34 | XMS_ITS | Encounter Summary ---
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 Organization [place] Address [address] [place] [address] Care Team Providers Care Feather Duster Winder Name Role Phone BYRON BARRON Primary [...] Dec 19, 2007 MEDICAR E SUPPLEM E [id number] NYDIA HUERTA UL PATIENT [employer] MEDICARE SUPPLEMEN YORDAN Dec 19, 2007 MEDICAR E SUPPLEM E [id number] [phone] NYDIA HUERTA UL PATIENT [employer] [place] MEDICARE SUPPLEMEN YORDAN BANKE RS Dec 19, 2007 NONE [id number] [phone] NYDIA HUERTA UL PATIENT MEDICARE (WNR) MEDICARE (M) PART B Oct 13, 2006 PART B [id number] NYDIA HUERTA UL PATIENT MEDICARE (WNR) MEDICARE (M) PART B Oct 13, 2006 PART B [id number] [phone] NYDIA HUERTA PATIENT MEDICARE (WNR) MEDICARE (M) PART B Oct 13, 2006 PART B [id number] [phone] NYDIA HUERTA PATIENT MEDICARE (WNR) MEDICARE (M) PART B Oct 13, 2006 PART B [id number] [phone] NYDIA HUERTA PATIENT MEDICARE (WNR) MEDICARE (M) PART A Sep 13, 2003 PART A [id number] NYDIA HUERTA PATIENT MEDICARE (WNR) MEDICARE (M) PART A Sep 13, 2003 PART A [id number] NYDIA HUERTA PATIENT MEDICARE (WNR) MEDICARE (M) PART A Sep 13, 2003 PART A [id number] NYDIA HUERTA PATIENT MEDICARE (WNR) MEDICARE (M) PART A Sep 13, 2003 PART A [id number] [phone] NYDIA HUERTA PATIENT Selected Encounter This section includes the information on record at [place] for the Encounter. 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 [facility] Apr 08, 2024 02:01 PM SECONDARY Tinnitus, bilateral JHON PEREA [place] [facility] [facility] Plan of Treatment: Future Appointments [...] 09:30 AM AMBULATORY - REHAB MEDICIN E [place] [facility] [place] [facility] Apr 13, 2024 01:30 PM AMBULATORY - MEDICINE [place] C [facility] [place] [facility] Apr 28, 2024 02:00 PM AMBULATORY - MEDICINE NM C [facility] [place] [facility] May 05, 2024 02:00 PM AMBULATORY - REHAB MEDICIN E [facility] [place] [facility] Jun 16, 2024 01:15 PM AMBULATORY - MEDICINE NM C N[facility] [place] [facility] Jul 14, 2024 02:45 PM AMBULATORY - MEDICINE NM C N[facility] [place] [facility] Jul 20, 2024 08:00 AM AMBULATORY - [facility]ICINE [facility] Sep 01, 2024 11:00 AM AMBULATORY - MEDICINE [place] C [facility] Lab Results: +/- 30 days of the encounter This section includes the Chemistry and Hematology Lab Results on record with [place] for the patient. Radiology Reports and Pathology Reports are provided separately, in subsequent sections. Lab Results This section contains the Chemistry/Hematology Results that were resulted 30 days before or 30 daysafter the date of the Encounter. Date/Time Source Result Type Result - Unit Interpretation Reference Range Specimen Type Comment Apr 07, 2024 07:31 AM [facility] LIVER FUNCTION SERUM Specimen Type: SERUM No comment entered. Ordering Provider: BYRON BARRON Report Released Date/Time: Apr 04, 2024 05:53 PM Reporting Lab: [address] [address] Performing Lab: [address] [address] PROTEIN,TOTAL 6.8 g/dL 6.0-8.3 ALBUMIN 4.0 g/dL 3.5-5.0 ALKALINE PHOSPHATASE 118 U/L 40-150 AST 30 U/L 5-34 ALT 23 U/L BILIRUBIN, TOTAL 1.0 mg/dL 0.2-1.2 Apr 07, 2024 07:31 AM [facility] BASIC METABOLIC PANEL (fasting) SERUM Specime n Type: SERUM No comment entered. Ordering Provider: BYRON BARRON Report Released Date/Time: Apr 04, 2024 05:53 PM Reporting Lab: [facility] [address] [address] Performing Lab: [facility] [address] [address] UREA NITROGEN 22 mg/dL 7-25 GLUCOSE 93 mg/dL 65-100 SODIUM 139 mmol/L 135-145 POTASSIUM 3.9 mmol/L 3.5-5.0 CHLORIDE 102 mmol/L 100-110 CO2 26 meq/L 20-30 CREATININE, Serum 0.92 mg/dL 0.50-1.40 eGFR(CKD-EPI 2020) 82 mL/min >60 Apr 07, 2024 07:31 AM [facility] TSH SERUM Specimen Type: SERUM No comment entered. Ordering Provider: BYRON BARRON Report Released Date/Time: Apr 04, 2024 05:53 PM Reporting Lab: [facility] [address] [address] Performing Lab: [facility] [address] [address] TSH 2.34 u[IU]/mL 0.35-5.00 Apr 07, 2024 07:31 AM [facility] LIPID PANEL FASTING SERUM Specimen Type: SERU M No comment entered. Ordering Provider: BYRON BARRON Report Released Date/Time: Apr 04, 2024 05:53 PM Reporting Lab: [facility] [address] [address] Performing Lab: [address] [address] CHOLESTEROL 139 mg/dL TRIGLYCERIDE 136 mg/dL 0-150 LDL calculated 72 mg/dL 0-129 CHOL/HDL 3.5 HDL CHOLESTEROL 40 mg/dL 40-60 Apr 07, 2024 07:31 AM [facility] CBC AND DIFF (AUTO) BLOOD Specimen Type: BLOO D No comment entered. Ordering Provider: BYRON BARRON Report Released Date/Time: Apr 04, 2024 05:53 PM Reporting Lab: [facility] [address] [address] Performing Lab: [facility] [address] [address] WBC 7.77 10*3/uL 4.50-11.00 RBC 4.29 10*6/uL [...] 10*3/uL 0.00-0.00 Apr 07, 2024 07:31 AM [facility] URINALYSIS CLEAN CATCH URINE Specimen Type: U RINE Comment: If Glucose = >500 and Ketones are positive, please alert the Physician. Ordering Provider: BYRON BARRON Report Released Date/Time: Apr 04, 2024 05:53 PM Reporting Lab: [facility] [address] [address] Performing Lab: [facility] [address] [address] UA COLOR Yellow Yellow UA APPEARANCE Clear [...] PM 98.1 80 151/78 16 97 0 [facility] Social History: Smoking Status (Most [...] place. Date/Time Current Smoking Status Comment Darling mancusoy Oct 16, 2023 01:30 PM VA-TOBACCO FOR[facility] Tobacco Use History This section includes a history of the smoking, or tobacco-related health factors, that were collected on or before the date of the Encounter. The data comes from the [place] facility where the Encounter took place. Date/Time Smoking Status/Tobacco Use Comment F acility Oct 16, 2023 01:30 PM VA-TOBACCO QUIT 15 YRS OR MORE [place] [facility] Jul 04, 2022 11:00 AM VA-TOBACCO FORMER USER [place] [facility] [place] [facility] Jul 04, 2022 11:00 AM VA-TOBACCO QUIT 15 YRS OR MORE [place] [facility] Jun 28, 2021 10:30 AM VA-TOBACCO FOR[facility] Jun 28, 2021 10:30 AM VA-TOBACCO QUIT 15 YRS OR MORE [place] [facility] May 26, 2020 08:00 AM VA-TOBACCO FORMER USER [place] [facility] [place] [facility] May 26, 2020 08:00 AM VA-TOBACCO QUIT 15 YRS OR MORE [place] [facility] May 23, 2018 11:21 AM [...] 2020 ADVANCE DIRECTIVE BYRON [facility]ARRON [facility] Encounter Notes: All [...] REQUESTED FROM BYRON BARRON MAR 24, 2024 ALYICA HUERTA is a 83 y/o FORMER smoker WHITE MALE, previously in [employer] FROM May TO Aug from PERIOD OF [...] 2. Aortic valve stenosis 3. Chest Pain ([facility] [id number]) 4. COPD - Chronic Obstructive Pulmonary Disease ([facility] [id number]) 5. HTN - Hypertension ([facility] [id number]) 6. Hypercholesterolemia ([facility] [id number]) 7. Cataract 8. Asbestosis Service Connected Disabilities [...] PROCEDURE NOTE - PERFORMED THIS VISIT CPT 71626 Cerumen removal, unilateral or bialteral Informed consent [...] to severe mixed hearing loss. Results from 6225-2669 Hz reflect testing with inserts, as those [...] this [facility] (local) and dispensed from another [place] or DoD facility (remote) as well as [...] JLV. Allergies/ADRs (Tool #5) FACILITY ALLERGY/ADR -------- [facility] LIDOCAINE [facility] [place] [facility] [place] [facility] NOVOCAIN Med Recon NoGlossary (Tool #1) INCLUDED IN THIS LIST: Alphabetical list of active outpatient prescriptions dispensed from this [place] (local) and dispensed from another [place] or [facility] facility (remote) as well as inpatient orders (local pending and active), local clinic medications, locally documented non-VA medications, and local prescriptions that have or been discontinued in the past 90 days. Non-VA Meds Last Documented On: Apr 09, 2022 NOTE The display of VA prescriptions dispensed from another [place] or [facility] facility (remote) is limited to active outpatient prescription entries matched to National Drug File at the originating site and may not include some items such as investigational drugs, compounds, etc. NOT INCLUDED IN THIS LIST: Medications self-entered by the patient into personal health records (i.e. [employer]) are NOT included in this list. Non-VA medications documented outside this [place], remote inpatient orders (regardless of status) and remote clinic medications are NOT included in this list. The patient and provider must always discuss medications the patient is taking, regardless of where the medication was dispensed or obtained. Non-VA ASPIRIN 81MG CHEW TAB CHEW ONE TABLET BY MOUTH ONCE DAILY Patient wants to buy from Non-NM pharmacy. OUTPT ATORVASTATIN CALCIUM 80MG TAB (Status = Active) TAKE ONE TABLET BY MOUTH AT BEDTIME Rx# [id number] Last Released: 03/19/24 Qty/Days Supply: Rx Expiration Date: 06/19/24 Refills Remainin OUTPT CEPHALEXIN 500MG CAP (Status = Active) TAKE ONE CAPSULE BY MOUTH EVERY 8 HOURS FOR INFECTION Rx# [id number] Last Released: 03/05/24 Qty/Days Supply: 01/02 Rx Expiration Date: 04/04/24 Refills Remainin Indication: FOR INFECTION CAUSED BY BACTERIA OUTPT EZETIMIBE 10MG TAB (Status = Active) TAKE ONE TABLET BY MOUTH ONCE DAILY TO LOWER CHOLESTEROL Rx# [id number] Last Released: 03/19/24 Qty/Days Supply: Rx Expiration Date: 06/19/24 Refills Remainin OUTPT FLUTICAS 250/SALMETEROL 50 INHL DISK 60 (Status = ) INHALE 1 PUFF BY MOUTH TWICE DAILY - RINSE MOUTH AFTER USE Rx# [id number] Last Released: 05/31/23 Qty/Days Supply: Rx Expiration Date: 03/07/24 Refills Remainin Indication: FOR BRONCHOSPASM PREVENTION WITH COPD OUTPT FLUTICASONE PROP 50MCG 120D NASAL INHL (Status = Active) INSTILL 1 SPRAY INTO EACH NOSTRIL ONCE DAILY NEEDED FOR NASAL IRRITATION/INFLAMMATION Rx# [id number] Last Released: 05/31/23 Qty/Days Supply: 08/13 Rx Expiration Date: 04/15/24 Refills Remainin Indication: FOR NASAL IRRITATION/INFLAMMATION OUTPT HYDROCHLOROTHIAZIDE 25MG TAB (Status = Active) TAKE ONE TABLET BY MOUTH ONCE DAILY Rx# [id number] Last Released: 01/06/24 Qty/Days Supply: Rx Expiration Date: 06/19/24 Refills Remainin OUTPT METOPROLOL SUCCINATE 50MG SA TAB (Status = Active) TAKE ONE TABLET BY MOUTH ONCE DAILY FOR BLOOD PRESSURE/HEART Rx# [id number] Last Released: 03/19/24 Qty/Days Supply: Rx Expiration Date: 06/19/24 Refills Remainin OUTPT TRIAMCINOLONE ACETONIDE 0.1% CREAM (Status = Active) APPLY A MODERATE AMOUNT TOPICALLY TWICE DAILY NEEDED FOR ITCHING Rx# [id number] Last Released: 10/28/23 Qty/Days Supply: 454/30 Rx Expiration Date: 10/24/24 Refills Remainin Indication: FOR ITCHING SUPPLIES /eleanor/ Jhon Perea MD Otolaryngology Signed: 03/24/2024 14:39 [facility]
--- OUTSIDE RECORDS SUMMARY | 2024-10-26 16:34 | XMS_ITS ---
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 Address [address] [place] [address] Care Team Providers Care Biblical Languages Professor Name Role Phone JOSUE SIMMONS Primary Care [...] Dec 19, 2007 MEDICAR E SUPPLEM E [id number] NYDIA HUERTA PATIENT [employer] MEDICARE SUPPLEMEN YORDAN Dec 19, 2007 MEDICAR E SUPPLEM E [id number] [phone] NYDIA HUERTA UL PATIENT [employer] [place] MEDICARE SUPPLEMEN YORDAN BANKE RS Dec 19, 2007 NONE [id number] NYDIA HUERTA PATIENT MEDICARE (WNR) MEDICARE (M) PART B Oct 13, 2006 PART B [id number] NYDIA HUERTA UL PATIENT MEDICARE (WNR) MEDICARE (M) PART B Oct 13, 2006 PART B [id number] NYDIA HUERTA PATIENT MEDICARE (WNR) MEDICARE (M) PART B Oct 13, 2006 PART B [id number] NYDIA HUERTA PATIENT MEDICARE (WNR) MEDICARE (M) PART B Oct 13, 2006 PART B [id number] [phone] NYDIA HUERTA PATIENT MEDICARE (WNR) MEDICARE (M) PART A Sep 13, 2003 PART A [id number] NYDIA HUERTA PATIENT MEDICARE (WNR) MEDICARE (M) PART A Sep 13, 2003 PART A [id number] NYDIA HUERTA PATIENT MEDICARE (WNR) MEDICARE (M) PART A Sep 13, 2003 PART A [id number] [phone] NYDIA HUERTA PATIENT MEDICARE (WNR) MEDICARE (M) PART A Sep 13, 2003 PART A [id number] NYDIA HUERTA PATIENT Selected Encounter This section includes the information on record at [place] for the Encounter. Date/Time Encounter Type Encounter Description Reason Provider Source Apr 13, 2024 01:30 PM OFFICE O/P EST LOW 20 MIN PRIMARY CARE/MEDICINE ICD-10-CM I10 Essential (primary) hypertension JOSUE SIMMONS [facility] Encounter Template Text not used by [place] Assessments - Encounter Diagnoses This section includes the primary and secondary diagnoses documented for the Encounter. Date/Time Primary/Secondary Diagnosis Diagnosis Name Provider Source Apr 26, 2024 07:52 AM PRIMARY Essential (primary) hypertension JOSUE SIMMONS [facility] Apr 26, 2024 07:52 AM SECONDARY Encounter for immunization ALMA MAHER [facility] Plan of Treatment: Future Appointments (+ [...] - MEDICINE [place] [facility] May 05, 2024 02:00 PM AMBULATORY - REHAB MEDICIN E [place] [facility] [place] [facility] Jun 16, 2024 01:15 PM AMBULATORY - MEDICINE [place] [facility] [place] [facility] Jul 14, 2024 02:45 PM AMBULATORY - MEDICINE [place] [facility] [place] [facility] Jul 20, 2024 08:00 AM AMBULATORY - MEDICINE [place] [facility] [place] [facility] Sep 01, 2024 11:00 AM AMBULATORY - MEDICINE [place] [facility] Sep 25, 2024 08:00 AM AMBULATORY - MEDICINE [place] [facility] Sep 25, 2024 10:00 AM AMBULATORY - MEDICINE [place] [facility] Oct 05, 2024 01:00 PM [facility]BULATORY - [facility] [place] [facility] Lab Results: +/- 30 days [...] Type Comment Apr 07, 2024 07:31 AM [facility] LIVER FUNCTION SERUM Specimen Type: SERUM No comment entered. Ordering Provider: JOSUE SIMMONS Report Released Date/Time: Apr 04, 2024 05:53 PM Reporting Lab: [place] [facility] [facility] [address] [facility] [address] Performing Lab: [place] [facility] [address] [facility] [address] PROTEIN,TOTAL 6.8 g/dL 6.0-8.3 ALBUMIN 4.0 g/dL 3.5-5.0 ALKALINE PHOSPHATASE 118 U/L 40-150 AST 30 U/L 5-34 ALT 23 U/L BILIRUBIN, TOTAL 1.0 mg/dL 0.2-1.2 Apr 07, 2024 07:31 AM [facility] BASIC METABOLIC PANEL (fasting) SERUM Specime n Type: SERUM No comment entered. Ordering Provider: JOSUE SIMMONS Report Released Date/Time: Apr 04, 2024 05:53 PM Reporting Lab: [facility] [address] Performing Lab: [address] [address] UREA NITROGEN 22 mg/dL 7-25 GLUCOSE 93 mg/dL 65-100 SODIUM 139 mmol/L 135-145 POTASSIUM 3.9 mmol/L 3.5-5.0 CHLORIDE 102 mmol/L 100-110 CO2 26 meq/L 20-30 CREATININE, Serum 0.92 mg/dL 0.50-1.40 eGFR(CKD-EPI 2020) 82 mL/min >60 Apr 07, 2024 07:31 AM [facility] TSH SERUM Specimen Type: SERUM No comment entered. Ordering Provider: JOSUE SIMMONS Report Released Date/Time: Apr 04, 2024 05:53 PM Reporting Lab: [facility] [address] [address] Performing Lab: [address] [address] TSH 2.34 u[IU]/mL 0.35-5.00 Apr 07, 2024 07:31 AM [facility] CBC AND DIFF (AUTO) BLOOD Specimen Type: BLOO D No comment entered. Ordering Provider: JOSUE SIMMONS Report Released Date/Time: Apr 04, 2024 05:53 PM Reporting Lab: [facility] [address] Performing Lab: [facility] [address] WBC 7.77 10*3/uL 4.50-11.00 RBC 4.29 10*6/uL [...] 10*3/uL 0.00-0.00 Apr 07, 2024 07:31 AM [facility] LIPID PANEL FASTING SERUM Specimen Type: SERU M No comment entered. Ordering Provider: JOSUE SIMMONS Report Released Date/Time: Apr 04, 2024 05:53 PM Reporting Lab: [address] [address] Performing Lab: [address] [address] CHOLESTEROL 139 mg/dL TRIGLYCERIDE 136 mg/dL 0-150 LDL calculated 72 mg/dL 0-129 CHOL/HDL 3.5 HDL CHOLESTEROL 40 mg/dL 40-60 Apr 07, 2024 07:31 AM [facility] URINALYSIS CLEAN CATCH URINE Specimen Type: U RINE Comment: If Glucose = >500 and Ketones are positive, please alert the Physician. Ordering Provider: JOSUE SIMMONS Report Released Date/Time: Apr 04, 2024 05:53 PM Reporting Lab: [address] [address] Performing Lab: [facility] [address] [facility] [address] UA COLOR Yellow Yellow UA APPEARANCE Clear [...] Source Apr 13, 2024 01:49 PM 136/66 [facility] Apr 13, 2024 01:23 PM 97.8 73 162/70 16 96 0 66 193.8 31 [facility] Immunizations: All administered on the encounter date This section contains immunizations associated to the Encounter. Immunization Series Date Issued Administered By Site Reaction Lot Number CVX Code Drug Polytechnic Teacher Comment(s) Source COVID-19 (MODERNA), MRNA, LNP-S, PF, 50 MCG/0.5 ML (AGES 12+ YEARS) 7 Apr 13, 2024 ALMA MAHER LEFT DELTO ID [id number] ADMINISTERE D AT [facility] INFLUENZA, HIGH-DOSE, TRIVALENT, PF Apr 13, 2024 ALMA MAHER LEFT DELTO ID [id number] 135 [employer] PA[employer] Completed Series, ADMINISTERE D AT [facility] Social History: Smoking Status (Most [...] Darling blum Oct 16, 2023 01:30 PM [place]-TOBACCO QUIT 15 YRS OR MORE [facility] Tobacco Use History This section includes a history of the smoking, or tobacco-related health factors, that were collected on or before the date of the Encounter. The data comes from the [place] facility where the Encounter took place. Date/Time Smoking Status/Tobacco Use Comment F acility Oct 16, 2023 01:30 PM VA-TOBACCO QUIT 15 YRS OR MORE [place] [facility] Jul 04, 2022 11:00 AM VA-TOBACCO FORMER USER [place] [facility] Jul 04, 2022 11:00 AM VA-TOBACCO QUIT 15 YRS OR MORE [place] [facility] Jun 28, 2021 10:30 AM VA-TOBACCO FORMER USER [place]TR[place] [facility] Jun 28, 2021 10:30 AM VA-TOBACCO QUIT 15 YRS OR MORE [place] [facility] May 26, 2020 08:00 AM VA-TOBACCO FORMER USER [place]TR[place] [facility] May 26, 2020 08:00 AM VA-TOBACCO QUIT 15 YRS OR MORE [place] [facility] May 23, 2018 11:21 AM VA-TOBACCO NEVER USED [facility] Advance Directives: All historical and [...] DIRECTIVE JOCE CASTORENA [facility] [place] [facility] November 16, 2020 ADVANCE DIRECTIVE JOSUE SIMMONS [facility] WSN [facility] Encounter Notes: All associated encounter notes This section contains the clinical notes associated to the Encounter. 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 /eleanor/ Josue Simmons MD Staff Physician Signed: 04/13/2024 13:53 Receipt Acknowledged By: 04/13/2024 14:13 /eleanor/ BREE MONTILLA [facility] APPRAISER [employer]ATS [employer] MARINE JOSUE SIMMONS [place] CNTL W[facility]N [facility] Apr 13, 2024 01:27 PM PREVENTIVE [...] Screen No incontinence. Suicide Screen: C-SSRS Screening [place] Suicide Severity Rating Scale (C-SSRS) screener 1. [...] an Advance Directive on file at this [facility]. No updates are needed at this time. The patient received education about Advance Directives and written notification of his/her rights. Comment: up to date Sexual Orientation: The patient thinks of their sexual orientation as: Straight or Heterosexual /es/ LEIGH MAHER LPN LPN Signed: 04/13/2024 13:29 04/13/2024 ADDENDUM STATUS: COMPLETED Influenza Immunization: Influenza, High-Dose, Trivalent, Preservative Free (Fluzone-Syringe) Administered: INFLUENZA, HIGH-DOSE, TRIVALENT, PF Date Administered: Apr 13, 2024 13:30 Series: Complete Polytechnic Teacher: SANOFI PASTEUR Lot: [id number] Exp Date: Jan 11, 2025 [facility]: [id number] Admin Route/Site: INTRAMUSCULAR/LEFT DELTOID Dosage: 0.5mL Vaccine Information Statement(s): INFLUENZA(FLU) VACC(INACTIVATED OR RECOMBINANT)VIS Feb 17, 2021 ([place]) Order By: Policy Administered By: Leigh Maher [...] Apr 13, 2024 13:30 Series: Series 7 Polytechnic Teacher: MODERNNextSpace. Lot: [id number] Exp Date: December 04, 2024 [place]: [id number] Admin Route/Site: INTRAMUSCULAR/LEFT DELTOID Dosage: 0.5mL Vaccine Information Statement(s): COVID-19 MRNA VACCINE (12+ YRS) VACCINE VIS May 02, 2023 ([place]) Order By: Policy Administered By: Leigh Maher Vaccine administered without complications. /eleanor/ LEIGH MAHER LPN LPN Signed: 04/13/2024 14:10 LEIGH MAHER [facility]
--- OUTSIDE RECORDS SUMMARY | 2024-10-26 16:34 | XMS_ITS | Encounter Summary ---
Author Name [place] Address [address] [place] [address] Care Team Providers Care Preparatory Technician Name Role Phone BYRON BARRON Primary [...] Dec 19, 2007 MEDICAR E SUPPLEM E [id number] NYDIA HUERTA UL PATIENT [employer] MEDICARE SUPPLEMEN YORDAN Dec 19, 2007 MEDICAR E SUPPLEM E [id number] [phone] NYDIA HUERTA UL PATIENT [employer] [place] MEDICARE SUPPLEMEN YORDAN BANKE RS Dec 19, 2007 NONE [id number] NYDIA HUERTA UL PATIENT MEDICARE (WNR) MEDICARE (M) PART B Oct 13, 2006 PART B [id number] [facility] [phone] NYDIA HUERTA UL PATIENT MEDICARE (WNR) MEDICARE (M) PART B Oct 13, 2006 PART B [id number] NYDIA HUERTA UL PATIENT MEDICARE (WNR) MEDICARE (M) PART B Oct 13, 2006 PART B [id number] [phone] NYDIA HUERTA PATIENT MEDICARE (WNR) MEDICARE (M) PART B Oct 13, 2006 PART B [id number] NYDIA HUERTA PATIENT MEDICARE (WNR) MEDICARE (M) PART A Sep 13, 2003 PART A [id number] [phone] NYDIA HUERTA UL PATIENT MEDICARE (WNR) MEDICARE (M) PART A Sep 13, 2003 PART A [id number] NYDIA HUERTA PATIENT MEDICARE (WNR) MEDICARE (M) PART A Sep 13, 2003 PART A [id number] NYDIA HUERTA PATIENT MEDICARE (WNR) MEDICARE (M) PART A Sep 13, 2003 PART A [id number] [phone] NYDIA HUERTA PATIENT Selected Encounter This section includes the information on record at [place] for the Encounter. Date/Time Encounter Type Encounter Description Reason Provider Source Dec 30, 2023 11:00 AM TYMPANOMETRY AUDIOLOGY ICD-10-CM H90.6 Mixed conductive and sensorineural hearing loss, bilateral CAMINITI,SAAD E IHE Encounter Template Text not used by [place] Assessments - Encounter Diagnoses This section includes the primary and secondary diagnoses documented for the Encounter. Date/Time Primary/Secondary Diagnosis Diagnosis Name Provider Source Dec 30, 2023 11:58 AM PRIMARY Mixed conductive and sensorineural hearing loss, bilateral CAMINITI,SAAD E [facility] Plan of Treatment: Future Appointments (+ 6 [...] 13, 2024 01:20 PM AMBULATORY - MEDICINE [facility] Jan 21, 2024 08:00 AM AMBULATORY - MEDICINE [place] [place] [facility] Feb 03, 2024 01:30 PM AMBULATORY - REHAB MEDICIN E [place] [facility] [place] [facility] Mar 05, 2024 08:00 AM AMBULATORY - MEDICINE [place] [facility] Mar 05, 2024 09:00 AM AMBULATORY - MEDICINE [place] [facility] [place] [place] [facility] Mar 06, 2024 08:00 AM AMBULATORY - MEDICINE [place] [facility] [place] [place] [facility] Mar 24, 2024 02:00 PM AMBULATORY - MEDICINE [place] [facility] [place] [place] [facility] Mar 31, 2024 09:30 AM AMBULATORY - REHAB MEDICIN E [place] [facility] [place] [facility] Apr 13, 2024 01:30 PM AMBULATORY - MEDICINE [place] [facility] [place] [place] [facility] Apr 28, 2024 02:00 PM AMBULATORY - MEDICINE [place] [facility] May 05, 2024 02:00 PM AMBULATORY - REHAB MEDICIN E [place] [facility] Jun 16, 2024 01:15 PM AMBULATORY - MEDICINE [place] [facility] Social History: Smoking Status (Most current) [...] FORMER USER [place] [facility] Tobacco Use History This section includes a history of the smoking, or tobacco-related health factors, that were collected on or before the date of the Encounter. The data comes from the [place] facility where the Encounter took place. Date/Time Smoking Status/Tobacco Use Comment F acility Oct 16, 2023 01:30 PM VA-TOBACCO QUIT 15 YRS OR MORE [place] [facility] [facility] Jul 04, 2022 11:00 AM VA-TOBACCO FORMER USER [place] [facility] Jul 04, 2022 11:00 AM VA-TOBACCO QUIT 15 YRS OR MORE [place] [facility] Jun 28, 2021 10:30 AM VA-TOBACCO FORMER USER [place] [facility] Jun 28, 2021 10:30 AM VA-TOBACCO QUIT 15 YRS OR MORE [place] [facility] May 26, 2020 08:00 AM VA-TOBACCO FORMER USER [place] [facility] May 26, 2020 08:00 AM VA-TOBACCO QUIT 15 YRS OR MORE [place] [facility] May 23, 2018 11:21 AM VA-TOBACCO [facility]ED [facility] Advance Directives: All historical and current [...] Feb 19, 2022 ADVANCE DIRECTIVE JOCE CASTORENA [facility] November 16, 2020 ADVANCE DIRECTIVE BYRON BARRON [facility] Encounter Notes: All associated encounter notes [...] to severe mixed hearing loss. Results from 7382-8105 Hz reflect testing with inserts, as those [...] ears) in comparison to those from 2019. [place] was counseled on today's test results. Given asymmetry and the mixed component, ENT evaluation is recommended and medical clearance for amplification is required. Consult submitted to [facility]. will contact the clinic to schedule HAS when he is cleared. /Alcon Ell[place], [facility]-A STAFF PACKAGER OR PACKER AND WEIGHER Signed: 12/30/2023 13:50 SAAD HARRINGTON CNTRL WSTRN [facility]
--- OUTSIDE RECORDS SUMMARY | 2024-10-26 16:34 | XMS_ITS ---
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 Address [address] [place] [address] Care Team Providers Care Environmental Engineering Intern Name Role Phone BYRON BARRON Primary Care [...] Dec 19, 2007 MEDICAR E SUPPLEM E [id number] NYDIA HUERTA PATIENT [employer] MEDICARE SUPPLEMEN YORDAN Dec 19, 2007 MEDICAR E SUPPLEM E [id number] NYDIA HUERTA UL PATIENT [employer] [place] MEDICARE SUPPLEMEN YORDAN BANKE RS Dec 19, 2007 NONE [id number] [phone] NYDIA HUERTA PATIENT MEDICARE (WNR) MEDICARE (M) PART B Oct 13, 2006 PART B [id number] NYDIA HUERTA UL PATIENT MEDICARE (WNR) MEDICARE (M) PART B Oct 13, 2006 PART B [id number] NYDIA HUERTA PATIENT MEDICARE (WNR) MEDICARE (M) PART B Oct 13, 2006 PART B [id number] NYDIA HUERTA PATIENT MEDICARE (WNR) MEDICARE (M) PART B Oct 13, 2006 PART B [id number] [phone] NYDIA HUERTA PATIENT MEDICARE (WNR) MEDICARE (M) PART A Sep 13, 2003 PART A [id number] NYDIA HUERTA UL PATIENT MEDICARE (WNR) MEDICARE (M) PART A Sep 13, 2003 PART A [id number] [phone] NYDIA HUERTA PATIENT MEDICARE (WNR) MEDICARE (M) PART A Sep 13, 2003 PART A [id number] NYDIA HUERTA PATIENT MEDICARE (WNR) MEDICARE (M) PART A Sep 13, 2003 PART A [id number] NYDIA HUERTA PATIENT Selected Encounter This section includes the information on record at [place] for the Encounter. Date/Time Encounter Type Encounter Description Reason Provider Source Mar 05, 2024 09:00 AM OFFICE O/P EST LOW 20 MIN PRIMARY CARE/MEDICINE ICD-10-CM L60.1 Onycholysis ISAK STERN [facility] Encounter Template Text not used by [place] Assessments - Encounter Diagnoses This section includes the primary and secondary diagnoses documented for the Encounter. Date/Time Primary/Secondary Diagnosis Diagnosis Name Provider Source Mar 20, 2024 12:50 PM PRIMARY Onych[facility] Mar 20, 2024 12:50 PM SECONDARY Unsp open wound of left lesser toe(s) w damage to nail, init [facility]AK STERN [facility] Plan of Treatment: Future Appointments (+ [...] - MEDICINE [place] [facility] Mar 24, 2024 02:00 PM AMBULATORY - MEDICINE [place] [facility] Mar 31, 2024 09:30 AM AMBULATORY - REHAB MEDICIN E [place] [place] [facility] Apr 13, 2024 01:30 PM AMBULATORY - MEDICINE [place] [facility] Apr 28, 2024 02:00 PM AMBULATORY - MEDICINE [place] C [place] [facility] May 05, 2024 02:00 PM AMBULATORY - REHAB MEDICIN E [place] [facility] [place] [facility] Jun 16, 2024 01:15 PM AMBULATORY - MEDICINE [place] C [place] [facility] Jul 14, 2024 02:45 PM AMBULATORY - MEDICINE [place] C [place] [facility] Jul 20, 2024 08:00 AM AMBULATORY - MEDICINE [place] C [place] [facility] Sep 01, 2024 11:00 AM AMBULATORY - MEDICINE [place] C [place] [facility] Vital Signs: All taken on the encounter date This section contains inpatient and outpatient Vital Signs collected on the date of the Encounter. Date/Time Temperature Pulse Blood Pressure Respiratory Rate SP02 Pain Height Weight Body Mass Index Source Mar 05, 2024 08:39 AM 97.5 71 170/65 16 98 1 [facility] Social History: Smoking Status (Most current) [...] PM VA-TOBACCO QUIT 15 YRS OR [facility] Tobacco Use History This section includes a history of the smoking, or tobacco-related health factors, that were collected on or before the date of the Encounter. The data comes from the [place] facility where the Encounter took place. Date/Time Smoking Status/Tobacco Use Comment F acility Oct 16, 2023 01:30 PM VA-TOBACCO QUIT 15 YRS OR MORE [place] [facility] Jul 04, 2022 11:00 AM VA-TOBACCO FORMER USER [place] [facility] Jul 04, 2022 11:00 AM VA-TOBACCO QUIT 15 YRS OR MORE [place] [facility] Jun 28, 2021 10:30 AM VA-TOBACCO FORMER USER [place] CN[place] [facility] Jun 28, 2021 10:30 AM VA-TOBACCO QUIT 15 YRS OR MORE [place] [facility] May 26, 2020 08:00 AM VA-TOBACCO FORMER USER [place] CN[place] [facility] May 26, 2020 08:00 AM VA-TOBACCO QUIT 15 YRS OR MORE [place] [facility] May 23, 2018 11:21 AM VA-TOBACCO NEVER USED [facility] WSN [facility] Advance Directives: All historical and current [...] ADVANCE DIRECTIVE JOCE [facility]STORENA [facility] November 16, 2020 ADVANCE DIRECTIVE BYRON BARRON [facility]N [facility] Encounter Notes: All associated encounter notes This section contains the clinical notes associated to the Encounter. 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 >> MEDICATIONS Reviewed and reconciled with Kohler /eleanor/ ISAK MC MS,PA-C PHYSICIAN COIN BOX INSPECTOR Signed: 03/05/2024 09:41 ISAK STERN [place] [facility]
--- OUTSIDE RECORDS SUMMARY | 2024-10-26 16:34 | XMS_ITS ---
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 Address [address] [place] [address] Care Team Providers Care Goat Farmer Name Role Phone BYRON BARRON Primary Care [...] Dec 19, 2007 MEDICAR E SUPPLEM E [id number] NYDIA HUERTA PATIENT [employer] MEDICARE SUPPLEMEN YORDAN Dec 19, 2007 MEDICAR E SUPPLEM E [id number] NYDIA HUERTA UL PATIENT [employer] [place] MEDICARE SUPPLEMEN YORDAN BANKE RS Dec 19, 2007 NONE [id number] NYDIA HUERTA UL PATIENT MEDICARE (WNR) MEDICARE (M) PART B Oct 13, 2006 PART B [id number] NYDIA HUERTA UL PATIENT MEDICARE (WNR) MEDICARE (M) PART B Oct 13, 2006 PART B [id number] [phone] [place] UL PATIENT MEDICARE (WNR) MEDICARE (M) PART B Oct 13, 2006 PART B [id number] [phone] NYDIA HUERTA PATIENT MEDICARE (WNR) MEDICARE (M) PART B Oct 13, 2006 PART B [id number] [phone] NYDIA HUERTA PATIENT MEDICARE (WNR) MEDICARE (M) PART A Sep 13, 2003 PART A [id number] NYDIA HUERTA PATIENT MEDICARE (WNR) MEDICARE (M) PART A Sep 13, 2003 PART A [id number] NYDIA HUERTA PATIENT MEDICARE (WNR) MEDICARE (M) PART A Sep 13, 2003 PART A [id number] [phone] NYDIA HUERTA PATIENT MEDICARE (WNR) MEDICARE (M) PART A Sep 13, 2003 PART A [id number] NYDIA HUERTA PATIENT Selected Encounter This section includes the information on record at [place] for the Encounter. Date/Time Encounter Type Encounter Description Reason Provider Source Mar 31, 2024 09:30 AM HEARING AID EXAM BOTH EARS AUDIOLOGY ICD-10-CM H90.6 Mixed conductive and sensorineural hearing loss, bilateral SAAD HARRINGTON IHE Encounter Template Text not used by [place] Assessments - Encounter Diagnoses This section includes the primary and secondary diagnoses documented for the Encounter. Date/Time Primary/Secondary Diagnosis Diagnosis Name Provider Source Mar 31, 2024 09:43 AM PRIMARY Mixed conductive and sensorineural hearing loss, bilateral SAAD HARRINGTON [facility] Plan of Treatment: Future Appointments (+ [...] 13, 2024 01:30 PM AMBULATORY - MEDICINE [facility] [place] [facility] Apr 28, 2024 02:00 PM AM[place]ULATORY [place]ICINE [place] [facility] May 05, 2024 02:00 PM AMBULATORY - [place] MEDICIN [place] [facility] [place] [facility] Jun 16, 2024 01:15 PM AM[place]ULATORY [place]ICINE [place] [facility] Jul 14, 2024 02:45 PM [facility] [place] [facility] Jul 20, 2024 08:00 AM AM[place]ORY [place]IC[place] [facility] Sep 01, 2024 11:00 AM AM[place]UL[place]ORY [place]IC[place] [facility] Sep 25, 2024 08:00 AM [facility] [place] [facility] [place] [facility] Sep 25, 2024 10:00 AM [facility] Lab Results: +/- 30 days of the encounter This section includes the Chemistry and Hematology Lab Results on record with [place] for the patient. Radiology Reports and Pathology Reports are provided separately, in subsequent sections. Lab Results This section contains the Chemistry/Hematology Results that were resulted 30 days before or 30 daysafter the date of the Encounter. Date/Time Source Result Type Result - Unit Interpretation Reference Range Specimen Type Comment Apr 07, 2024 07:31 AM [facility] BASIC METABOLIC PANEL (fasting) SERUM Specime n Type: SERUM No comment entered. Ordering Provider: BYRON BARRON Report Released Date/Time: Apr 04, 2024 05:53 PM Reporting Lab: [facility] [address] [address] Performing Lab: [facility] [address] [address] UREA NITROGEN 22 mg/dL 7-25 GLUCOSE 93 mg/dL 65-100 SODIUM 139 mmol/L 135-145 POTASSIUM 3.9 mmol/L 3.5-5.0 CHLORIDE 102 mmol/L 100-110 CO2 26 meq/L 20-30 CREATININE, Serum 0.92 mg/dL 0.50-1.40 eGFR(CKD-EPI 2020) 82 mL/min >60 Apr 07, 2024 07:31 AM [facility] LIVER FUNCTION SERUM Specimen Type: SERUM No comment entered. Ordering Provider: BYRON BARRON Report Released Date/Time: Apr 04, 2024 05:53 PM Reporting Lab: [facility] [address] [address] Performing Lab: [address] [address] PROTEIN,TOTAL 6.8 g/dL 6.0-8.3 ALBUMIN 4.0 g/dL 3.5-5.0 ALKALINE PHOSPHATASE 118 U/L 40-150 AST 30 U/L 5-34 ALT 23 U/L BILIRUBIN, TOTAL 1.0 mg/dL 0.2-1.2 Apr 07, 2024 07:31 AM [facility] TSH SERUM Specimen Type: SERUM No comment entered. Ordering Provider: BYRON BARRON Report Released Date/Time: Apr 04, 2024 05:53 PM Reporting Lab: [address] [address] Performing Lab: [facility] [address] [address] TSH 2.34 u[IU]/mL 0.35-5.00 Apr 07, 2024 07:31 AM [facility] CBC AND DIFF (AUTO) BLOOD Specimen Type: BLOO D No comment entered. Ordering Provider: BYRON BARRON Report Released Date/Time: Apr 04, 2024 05:53 PM Reporting Lab: [address] [address] Performing Lab: [facility] [address] [address] WBC 7.77 10*3/uL 4.50-11.00 RBC 4.29 10*6/uL [...] 10*3/uL 0.00-0.00 Apr 07, 2024 07:31 AM [facility] LIPID PANEL FASTING SERUM Specimen Type: SERU M No comment entered. Ordering Provider: BYRON BARRON Report Released Date/Time: Apr 04, 2024 05:53 PM Reporting Lab: [address] [address] Performing Lab: [address] [address] CHOLESTEROL 139 mg/dL TRIGLYCERIDE 136 mg/dL 0-150 LDL calculated 72 mg/dL 0-129 CHOL/HDL 3.5 HDL CHOLESTEROL 40 mg/dL 40-60 Apr 07, 2024 07:31 AM [facility] URINALYSIS CLEAN CATCH URINE Specimen Type: U RINE Comment: If Glucose = >500 and Ketones are positive, please alert the Physician. Ordering Provider: BYRON BARRON Report Released Date/Time: Apr 04, 2024 05:53 PM Reporting Lab: [address] [address] Performing Lab: [address] [address] UA COLOR Yellow Yellow UA APPEARANCE Clear [...] VA-TOBACCO FORMER USER [place] [facility] Tobacco Use History This section includes a history of the smoking, or tobacco-related health factors, that were collected on or before the date of the Encounter. The data comes from the [place] facility where the Encounter took place. Date/Time Smoking Status/Tobacco Use Comment F acility Oct 16, 2023 01:30 PM VA-TOBACCO QUIT 15 YRS OR MORE [facility] [place] [facility] Jul 04, 2022 11:00 AM VA-TOBACCO FORMER USER [facility] [place] [facility] Jul 04, 2022 11:00 AM VA-TOBACCO QUIT 15 YRS OR MORE [facility] [place] [facility] Jun 28, 2021 10:30 AM VA-TOBACCO FORMER USER [facility] [place] [facility] Jun 28, 2021 10:30 AM VA-TOBACCO QUIT 15 YRS OR MORE [facility] [place] [facility] May 26, 2020 08:00 AM VA-TOBACCO FORMER USER [facility] [place] [facility] May 26, 2020 08:00 AM VA-TOBACCO QUIT 15 YRS OR MORE [place] [facility] [place] [facility] May 23, 2018 11:21 AM VA-TOBACCO NEVER USED [place] [facility] Advance Directives: All historical [...] Feb 19, 2022 ADVANCE DIRECTIVE JOCE CASTORENA [facility] November 16, 2020 ADVANCE DIRECTIVE BYRON BARRON [facility] Encounter Notes: All associated encounter notes This [...] medical clearance for amplification from ENT in [facility] on 03-24-24. 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 Binaural rechargeable BTEs are recommended and agrees. He states he does not have a pacemaker. He chose beige for the color. Otoscopy was WNLs. Ear impressions were taken without incident. RTC order placed for the fitting 05-05-24 2pm. /eleanor/ Alcon GERONIMO, [facility]-A STAFF FIBERGLASS TECHNICIAN Signed: 03/31/2024 09:55 Receipt Acknowledged By: 03/31/2024 10:12 /eleanor/ SUHAS SINHA LEAD MACHINE DESIGN ENGINEER 04/09/2024 ADDENDUM STATUS: COMPLETED Hearing aids received and certified, upcoming appointment scheduled on 05/05/2024. /eleanor/ ELIGIO CHAND [facility] Baster Jumpbasting Signed: 04/09/2024 08:42 SAAD HARRINGTON [facility]
--- OUTSIDE RECORDS SUMMARY | 2024-10-26 16:34 | XMS_ITS | Encounter Summary ---
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 Address [address] [place] [address] Care Team Providers Care Exterminator Termite Name Role Phone BYRON BARRON Primary Care [...] Dec 19, 2007 MEDICAR E SUPPLEM E [id number] NYDIA HUERTA UL PATIENT [employer] MEDICARE SUPPLEMEN YORDAN Dec 19, 2007 MEDICAR E SUPPLEM E [id number] [phone] NYDIA HUERTA UL PATIENT [employer] [place] MEDICARE SUPPLEMEN YORDAN BANKE RS Dec 19, 2007 NONE [id number] NYDIA HUERTA UL PATIENT MEDICARE (WNR) MEDICARE (M) PART B Oct 13, 2006 PART B [id number] NYDIA HUERTA UL PATIENT MEDICARE (WNR) MEDICARE (M) PART B Oct 13, 2006 PART B [id number] [phone] [place] UL PATIENT MEDICARE (WNR) MEDICARE (M) PART B Oct 13, 2006 PART B [id number] [phone] NYDIA HUERTA PATIENT MEDICARE (WNR) MEDICARE (M) PART B Oct 13, 2006 PART B [id number] NYDIA HUERTA UL PATIENT MEDICARE (WNR) MEDICARE (M) PART A Sep 13, 2003 PART A [id number] NYDIA HUERTA UL PATIENT MEDICARE (WNR) MEDICARE (M) PART A Sep 13, 2003 PART A [id number] NYDIA HUERTA UL PATIENT MEDICARE (WNR) MEDICARE (M) PART A Sep 13, 2003 PART A [id number] [phone] NYDIA HUERTA PATIENT MEDICARE (WNR) MEDICARE (M) PART A Sep 13, 2003 PART A [id number] [phone] NYDIA HUERTA PATIENT Selected Encounter This section includes the information on record at [place] for the Encounter. Date/Time Encounter Type Encounter Description Reason Provider Source Feb 03, 2024 01:30 PM ORTHC/PROSTC MGMT SBSQ ENC PHYSICAL THERAPY ICD-10-CM M84.472A Pathological fracture, left ankle, init encntr for fracture ROHAN HAMPT[place] IN IHE Encounter Template Text not used by [place] Assessments - Encounter Diagnoses This section includes the primary and secondary diagnoses documented for the Encounter. Date/Time Primary/Secondary Diagnosis Diagnosis Name Provider Source Mar 03, 2024 03:06 PM PRIMARY Pathological fracture, left ankle, init encntr for fracture [place]OHAN [place] IN [facility] [place] [facility] Plan of Treatment: Future Appointments (+ 6 months) and Future Tests (+/- 45 days) The Plan of Treatment section includes future care activities for the patient from all [place] treatmentfacilities. This section includes future appointments and future orders which are active, pending or scheduled. Future Appointments This section includes appointments that were scheduled to occur 6 months from the date of the Encounter, up to a maximum of 20 appointments. The data comes from all [place] treatment facilities. Appointment Date/Time Appointment Type Appointme nt Facility Name Mar 05, 2024 08:00 AM AMBULATORY - MEDICINE [facility] [place] [facility] Mar 05, 2024 09:00 AM AMBULATORY - MEDICINE [facility] [place] [facility] Mar 06, 2024 08:00 AM AMBULATORY - MEDICINE [facility] [place] [facility] Mar 24, 2024 02:00 PM AMBULATORY - MEDICINE [facility] [place] [facility] Mar 31, 2024 09:30 AM AMBULATORY - REHAB MEDICIN E [facility] [place] [facility] Apr 13, 2024 01:30 PM AMBULATORY - MEDICINE [facility] [place] [facility] Apr 28, 2024 02:00 PM AMBULATORY - MEDICINE [facility] [place] [facility] May 05, 2024 02:00 PM AMBULATORY - REHAB MEDICIN E [facility] [place] [facility] Jun 16, 2024 01:15 PM AMBULATORY - MEDICINE [facility] [place] [facility] Jul 14, 2024 02:45 PM AMBULATORY - MEDICINE [facility] [place] [facility] Jul 20, 2024 08:00 AM AMBULATORY - MEDICINE [place] [facility] Social History: Smoking Status (Most current) and Tobacco Use (All prior to encounter date) This section includes the most current, and the historical, smoking and tobacco- related health factors from the [place] facility where the Encounter took place. Current Smoking Status This section includes the most current smoking, or tobacco-related health factor, from the [place] facility where the Encounter took place. Date/Time Current Smoking Status Comment Facil ity Oct 16, 2023 01:30 PM VA-TOBACCO FORMER USER [place] [facility] [place] [facility] Tobacco Use History This section includes a history of the smoking, or tobacco-related health factors, that were collected on or before the date of the Encounter. The data comes from the [place] facility where the Encounter took place. Date/Time Smoking Status/Tobacco Use Comment F acility Oct 16, 2023 01:30 PM VA-TOBACCO QUIT 15 YRS OR MORE [facility] [place] [facility] Jul 04, 2022 11:00 AM VA-TOBACCO FORMER USER [facility] [place] [facility] Jul 04, 2022 11:00 AM VA-TOBACCO QUIT 15 YRS OR MORE [place] [facility] [place] [facility] Jun 28, 2021 10:30 AM VA-TOBACCO FORMER USER [place] [facility] [place] [facility] Jun 28, 2021 10:30 AM VA-TOBACCO QUIT 15 YRS OR MORE [place] [facility] [place] [facility] May 26, 2020 08:00 AM VA-TOBACCO FORMER USER [place] [facility] [place] [facility] May 26, 2020 08:00 AM VA-TOBACCO QUIT 15 YRS OR MORE [facility] May 23, 2018 11:21 AM [facility] Advance Directives: All historical and current Section Date Range: From patient's date of to the date document was created. This section includes ALL of a patient's completed or amended [place] Advance and Rescinded Directives. The entries below indicate that a directive exists for the patient, but an actual copy is not included with this document. The data comes from all [place] facilities. Date Advance Directives Provider Source Feb 19, 2022 ADVANCE DIRECTIVE JOCE CASTORENA [facility] November 16, 2020 ADVANCE DIRECTIVE [facility] Encounter Notes: All associated encounter [...] walker is available /eleanor/ CHUN BETANCOURT LICENSE TRANSCRIBING MACHINE OPERATOR Signed: 02/03/2024 13:54 GERALDINE HAMPTON CN[facility]
--- OUTSIDE RECORDS SUMMARY | 2024-10-26 16:34 | XMS_ITS ---
Author Organization [facility] Address [address] [place] [address] Care Team Providers Care Goldsmith Apprentice Name Role Phone Josue Simmons MD Primary Care Provider UnavailLyn Main [phone] REASON FOR VISIT 04/23/24 Encounters Encounter Location Date Provider Diagnosis [facility] [address] [place] [address] 04/02/2024 Lyn Lund Plan Of Treatment No Information Progress Notes * Reed MALLORY HDOB:1940 (83 yo M)Acc No.[id number]:04/02/2024 Patient:?Reed Mallory :1940???Age:83 Y???Sex:Male Address:[address] [place] [address] * true * Date:? Generated for Printi ng/Famichaelg/eTransmitting on:?10/26/2024 04:33 PM EDT
--- OUTSIDE RECORDS SUMMARY | 2024-10-26 16:34 | XMS_ITS | Encounter Summary ---
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 Organization [place] Address [address] [place] [address] Care Team Providers Care Recovery Room Nurse Name Role Phone JOSUE SIMMONS Primary [...] Dec 19, 2007 MEDICAR E SUPPLEM E [id number] [phone] NYDIA HUERTA UL PATIENT [employer] MEDICARE SUPPLEMEN YORDAN Dec 19, 2007 MEDICAR E SUPPLEM E [id number] NYDIA HUERTA UL PATIENT [employer] CO MEDICARE SUPPLEMEN YORDAN BANKE RS Dec 19, 2007 NONE [id number] NYDIA HUERTA UL PATIENT MEDICARE (WNR) MEDICARE (M) PART B Oct 13, 2006 PART B [id number] NYDIA HUERTA UL PATIENT MEDICARE (WNR) MEDICARE (M) PART B Oct 13, 2006 PART B [id number] NYDIA HUERTA PATIENT MEDICARE (WNR) MEDICARE (M) PART B Oct 13, 2006 PART B [id number] NYDIA HUERTA PATIENT MEDICARE (WNR) MEDICARE (M) PART B Oct 13, 2006 PART B [id number] NYDIA HUERTA PATIENT MEDICARE (WNR) MEDICARE (M) PART A Sep 13, 2003 PART A [id number] NYDIA HUERTA PATIENT MEDICARE (WNR) MEDICARE (M) PART A Sep 13, 2003 PART A [id number] NYDIA HUERTA PATIENT MEDICARE (WNR) MEDICARE (M) PART A Sep 13, 2003 PART A [id number] NYDIA HUERTA PATIENT MEDICARE (WNR) MEDICARE (M) PART A Sep 13, 2003 PART A [id number] NYDIA HUERTA PATIENT Selected Encounter This [...] 14, 2024 02:45 PM AM[place]ULATORY [place] [facility] Jul 20, 2024 08:00 AM AMBULATORY [place]ICINE [place] [facility] Sep 01, 2024 11:00 AM AMBULATORY [place]ICINE [place] [facility] Sep 25, 2024 08:00 AM AMBULATORY [place]ICINE [place] [facility] Sep 25, 2024 10:00 AM AMBULATORY [place]ICINE [place] [facility] Oct 05, 2024 01:00 PM AMBULATORY [place]ICINE [place] [facility] Nov 11, 2024 02:30 PM AMBULATORY [place]ICINE [place] [facility] Social History: [...] PM VA-TOBACCO QUIT 15 YRS OR MORE [place] [facility] Tobacco Use History This section includes a history of the smoking, or tobacco-related health factors, that were collected on or before the date of the Encounter. The data comes from the [place] facility where the Encounter took place. Date/Time Smoking Status/Tobacco Use Comment F acility Oct 16, 2023 01:30 PM VA-TOBACCO QUIT 15 YRS OR MORE [place] [facility] Jul [...] CNTRL [place] [facility] May 23, 2018 11:21 AM VA-TOBACCO NEVER USED [place] [facility] Advance Directives: All historical and current [...] Source Feb 19, 2022 ADVANCE DIRECTIVE EDERLENOJOCE JEAN [facility] November 16, 2020 ADVANCE DIRECTIVE JOSUE SIMMONS [facility] Encounter Notes: All associated encounter [...] URGENCY: STATUS: COMPLETED MEDICATION RENEWAL Has ADDENDA Therese we have a requesting medicaton renewal for mailing please please renew if appropriate Active Outpatient Medications (including Supplies): Active Outpatient Medications Status ====== 1) 1 [id number]$ ATORVASTATIN CALCIUM 80MG TAB 90 E> 06-19 1 90 3 [id number]$ EZETIMIBE 10MG TAB 90 E> 06-19 0 90 7 [id number]$ METOPROLOL SUCCINATE 50MG SA TAB 90 E> 06-19 0 90 /eleanor/ XU DEE COMMISSARY CLERK Signed: 06/25/2024 15:35 Receipt Acknowledged By: 06/25/2024 15:42 /eleanor/ Josue Simmons MD Staff Physician 06/25/2024 ADDENDUM STATUS: COMPLETED Done. /eleanor/ Josue Simmons MD Staff Physician Signed: 06/25/2024 15:41 XU DEE [facility]
--- OUTSIDE RECORDS SUMMARY | 2024-10-26 16:35 | XMS_ITS ---
Author Organization [facility] Address [address] [place] [address] Care Team Providers Care It Programmer Name Role Phone Josue Simmons MD Primary Care Provider Unavailab melinda Lyn Lund Unavailable [phone] Allergies Allergen (clinical drug ingredient) Drug/Non Drug [...] 04/23/2024 Encounters Encounter Location Date Provider Diagnosis [facility] [address] [place] [address] 04/23/2024 Lyn Lund Plan Of Treatment No Information Progress Notes * Reed MALLORY HDOB:1940 (84 yo M)Acc No.[id number]:04/23/2024 Progress Notes Patient:Reed VANCE Provider:?Lyn Lund DPM :1940???Age:83 Y???Sex:Male Chu e:04/23/2024 Address:[address] [place], [place] [id number] Pcp:Josue Simmons MD Subjective: * Chief Complaints: [...] Lund DPM Date:?2023 Generated for Yokasta palacios/Ilda/Sunil on:?10/26/2024 04:34 PM EDT
--- OUTSIDE RECORDS SUMMARY | 2024-10-26 16:35 | XMS_ITS | Continuity of Care Document ---
Author Name [facility] Organization [facility] Care Team Providers Care Pile Driver Name Role Phone [facility] Unavailable Unavailable Problems Combined list of problems from Department of Defense and Veterans Affairs facilities. It does not include entries that were removed or entered in error. Problem Status Onset Date Problem Type Date of Resolution Comments Source Chronic dermatitis Active 023 Condition Oct 05, 2022 Entered By: BYRON BARRON Comment: referred to dermatology [facility] Chest Pain (SCT [id number]) Active Condition Jan 02, 2022 Entered By: BYRON BARRON Comment: ordered stress test [facility] COPD - Chronic Obstructive Pulmonary Disease (SCT [id number]) Active Condition Dec 28, 2021 Entered By: BYRON BARRON Comment: on inhalers [facility] Cataract Active Condition Oct 12, 2020 Entered By: BYRON BARRON Comment: referred for surgery [facility] HTN - Hypertension (SCT [id number]) Active Condition Oct 21, 2020 Entered By: BYRON BARRON Comment: treated witn medication [facility] Hypercholesterolemia (SCT [id number]) Active Condition Oct 21, 2020 Entered By: [...] of uncertain behavior of skin Active Diagnosis [facility] Diagnosis: ICD-10-CM Z13.89 Encounter for screening for other disorder Active Diagnosis [facility] Diagnosis: ICD-10-CM R21 Rash and other nonspecific skin eruption Active Diagnosis [facility] Diagnosis: ICD-10-CM Z23 Encounter for immunization Active [...] WITH GRAPEFRU IT JUICE ORAL ACTIVE 12/24/2024 [id number] MLAPADandy,TH EODORE K 2024 90 [facility] AMOXICILLIN TRIHYDRATE 875MG/CLAVU LANATE K 125MG TAB TAKE 1 TABLET BY MOUTH TWICE DAILY FOR INFECTIO N ORAL 11/15/2023 [id number] MAUREEN BARRON PAIGE D 2023 20 [facility] ASPIRIN 81MG TAB,CHEWABL E CHEW ONE TABLET BY MOUTH ONCE DAILY ORAL ACTIVE JANINE HAMMOND R 2021 [facility] ATORVASTATI N CA 80MG TAB TAKE ONE TABLET BY MOUTH AT BEDTIME ORAL DISCONT INUED BY PROVIDE R 06/26/2025 [id number] 5 MAUREEN BARRON PAIGE D 2023 90 [facility] ATORVASTATI N CA 80MG TAB TAKE ONE TABLET BY MOUTH AT BEDTIME ORAL DISCONT INUED 06/19/2024 [id number] MOHAMUD ARGUETA AV 2022 90 [facility] CARBOXYMETH YLCELLULOSE NA 0.5% SOLN,OPH INSTILL 1 DROP INTO EACH EYE FOUR TIMES A DAY FOR DRY EYE OPHTHA LMIC ACTIVE 09/02/2025 [id number] 5 CALDERON,LAC EY J 2024 45 [facility] CEPHALEXIN 500MG CAP TAKE ONE CAPSULE BY MOUTH EVERY 8 HOURS FOR INFECTIO N ORAL 04/04/2024 [id number] 4 MAMTA STERN 2023 21 [facility] DOCUSATE NA 100MG CAP TAKE ONE CAPSULE BY MOUTH TWICE DAILY FOR 7 DAYS TO SOFTEN STOOL ORAL 10/25/2024 [id number] 5 MISA CANTU- NERI 2024 14 [facility] EYELID CLEANSER,EY E SCRUB PAD USE 1 PAD TOPICALL Y EVERY MORNING BLEPHARI TIS TOPICA L ACTIVE 09/02/2025 [id number] 5 OSBALDO CALDERON EY J 2024 90 [facility] EZETIMIBE 10MG TAB TAKE ONE TABLET BY MOUTH ONCE DAILY TO LOWER CHOLESTE ROL ORAL ACTIVE 06/26/2025 [id number] 5 MAUREEN BARRON PAIGE D 2023 90 [facility] EZETIMIBE 10MG TAB TAKE ONE TABLET BY MOUTH ONCE DAILY TO LOWER CHOLESTE ROL ORAL DISCONT INUED 06/19/2024 [id number] 4 KENDALL,MOHAMUD AV 2022 90 [facility] HYDROCHLORO THIAZIDE 25MG TAB TAKE ONE TABLET BY MOUTH ONCE DAILY ORAL ACTIVE 12/24/2024 [id number] 5 VAILRAJI HLEY M 2024 90 [facility] HYDROCHLORO THIAZIDE 25MG TAB TAKE ONE TABLET BY MOUTH ONCE DAILY ORAL 06/19/2024 [id number] KENDALL,MOHAMUD AV 2023 90 [facility] METOPROLOL SUCCINATE 50MG TAB,SA TAKE ONE TABLET BY MOUTH ONCE DAILY FOR BLOOD PRESSURE /HEART ORAL ACTIVE 06/26/2025 [id number] 5 MAUREEN BARRON PAIGE D 2023 90 [facility] METOPROLOL SUCCINATE 50MG TAB,SA TAKE ONE TABLET BY MOUTH ONCE DAILY FOR BLOOD PRESSURE /HEART ORAL DISCONT INUED 06/19/2024 [id number] 4 KENDALL,MOHAMUD AV 2022 90 [facility] OXYCODONE HCL 5MG TAB TAKE ONE TABLET BY MOUTH EVERY 4 HOURS NEEDED FOR PAIN ORAL 10/25/2024 [id number] 5 DIDIER CANTU 2024 42 [facility] TRIAMCINOLO NE ACETONIDE 0.1% CREAM,TOP APPLY A MODERATE AMOUNT TOPICALL Y TWICE DAILY NEEDED FOR ITCHING TOPICA L 10/24/2024 [id number] 4 MAUREEN BARRON PAIGE D 2023 454 [facility] Allergies, Adverse Reactions, Alerts Combined list of allergies from Department of Defense and Veterans Affairs facilities. It does not include entries that were removed or entered in error. Substance Category Reaction Severity Reaction type Status Date Reported Comments Source LIDOCAINE Propensity to adverse reactions to drug (finding) Itching MODERATE active 2 [facility] NOVOCAIN Propensity to adverse reactions to drug (finding) Feeling agitated [facility] PROCAINE Propensity to adverse reactions to drug (finding) active 2 [facility] Immunizations Combined list of available immunizations from the Department of Defense and Veterans Affairs facilities. Immunization Series Date Given Administered By Site Reaction Lot Number CVX Code Drug Poll Clerk Status Comments Source COVID-19 (MODERNA), MRNA, LNP-S, PF, 50 MCG/0.5 ML (AGES 12+ YEARS) 7 2023 ALMA MAHER LEFT DELTO ID [id number] 312 complet ed [facility] INFLUENZA, HIGH-DOSE, TRIVALENT, PF 2023 ALMA MAHER LEFT DELTO ID [id number] 135 complet ed Completed Series, [facility] RSV, BIVALENT, PROTEIN SUBUNIT RSVPREF, DILUENT RECONSTITUTED , 0.5 ML, PF 1 2023 GRETCHEN ANDRADE LEFT DELTO ID [id number] 305 complet ed [facility] COVID-19 (MODERNA), MRNA, LNP-S, PF, 50 MCG/0.5 ML (AGES 12+ YEARS) 1 2023 GRETCHEN ANDRADE E LEFT DELTO ID [id number] 312 complet ed [facility] INFLUENZA, HIGH-DOSE, QUADRIVALENT 2022 JERRI SHAKIH LEFT DELTO ID [id number] 197 complet [place] [facility] [place] [facility] COVID-19 (MODERNA), MRNA, LNP-S, BIVALENT BOOSTER, PF, 50 MCG/0.5 ML OR 25MCG/0.25 ML DOSE 2021 JERRI SHAIKH LEFT DELTO ID [id number] 229 complet ed Booster for Series, [facility] [place], [facility] INFLUENZA VACCINE, QUADRIVALENT, ADJUVANTED 2021 205 complet ed [facility] COVID-19 (MODERNA), MRNA, LNP-S, PF, 100 MCG/0.5ML DOSE OR 50 MCG/0.25ML DOSE 3 2021 207 complet ed MOD; [id number] ; 2 [facility] PNEUMOCOCCAL CONJUGATE PCV20, POLYSACCHARID E [id number] CONJUGATE, ADJUVANT, PF 2021 216 complet ed [facility] COVID-19 (MODERNA), MRNA, LNP-S, PF, 100 MCG OR 50 MCG DOSE 3 2020 207 complet ed MOD; [id number]; 2 [facility] INFLUENZA, UNSPECIFIED FORMULATION 2020 88 complet ed [facility] TDAP 2020 115 complet ed [facility] COVID-19 (MODERNA), MRNA, LNP-S, PF, 100 MCG/0.5 ML DOSE 2 2020 207 complet ed MOD; [id number]; 1 [facility] COVID-19 (MODERNA), MRNA, LNP-S, PF, 100 MCG/0.5 ML DOSE 1 2020 207 complet ed MOD; [id number]; 1 [facility] [...] HIGH DOSE SEASONAL 2017 135 complet ed 02, Partner: [facility]. Administe red by: ARLET BOLTON (HXW=[phone]). Partner 0 Lot#: [id number] Mfr: [employer]; Dosage: 0.5 [facility] PNEUMOCOCCAL POLYSACCHARID E PPV23 2016 33 complet ed 02, Partner: [facility]. Administe red by: ARLET BOLTON ([id number]=[phone]). Partner 0 Lot#: [id number] Mfr: [employer]; Dosage: 0.5 [facility] INFLUENZA, HIGH DOSE SEASONAL 2016 135 complet ed 02, Partner: [email or web address]. Administe red by: ARLET BOLTON (RIU=[phone]). Partner 0 Lot#: [id number] Mfr: San[employer] Pasteur; Dosage: 0.5 [facility] [...] Apr 04, 2024 05:53 PM Reporting Lab: [facility] [address] [address] Performing Lab: [facility] [facility] [address] [facility] [address] [facility] [facility] LIVER FUNCTION ALBUMIN [MASS/VOLU ME] IN SERUM OR PLASMA 4.0 g/dL 3.5 - 5.0 04/07 Specimen Type: SERUM No comment entered. Ordering Provider: JAMILA BARRON Report Released Date/Time: Apr 04, 2024 05:53 PM Reporting Lab: [facility] [address] [facility] [address] Performing Lab: [facility] [facility] [address] [facility] [address] [facility] [place] [facility] LIVER FUNCTION ALKALINE PHOSPHATAS E [ENZYMATIC ACTIVITY/V OLUME] IN SERUM OR PLASMA 118 U/L 40 - 150 04/07 Specimen Type: SERUM No comment entered. Ordering Provider: JAMILA BARRON Report Released Date/Time: Apr 04, 2024 05:53 PM Reporting Lab: [facility] [place] [facility] [address] [facility] [address] Performing Lab: [facility] [place] [facility] [address] [facility] [address] [facility] [place] [facility] LIVER FUNCTION ASPARTATE AMINOTRANS FERASE [ENZYMATIC ACTIVITY/V OLUME] IN SERUM OR PLASMA 30 U/L 5 - 34 04/07 Specimen Type: SERUM No comment entered. Ordering Provider: JAMILA BARRON Report Released Date/Time: Apr 04, 2024 05:53 PM Reporting Lab: [facility] [place] [facility] [address] [facility] [address] Performing Lab: [facility] [place] [facility] [address] [facility] [address] [facility] [place] [facility] LIVER FUNCTION ALANINE AMINOTRANS FERASE [ENZYMATIC ACTIVITY/V OLUME] IN SERUM OR PLASMA 23 U/L 04/07 Specimen Type: SERUM No comment entered. Ordering Provider: JAMILA BARRON Report Released Date/Time: Apr 04, 2024 05:53 PM Reporting Lab: [facility] [place] [facility] [address] [facility] [address] [facility]forming [facility]: [facility] [facility] [address] [facility] [address] [facility] LIVER FUNCTION BILIRUBIN. TOTAL [MASS/VOLU ME] IN SERUM OR PLASMA 1.0 mg/dL 0.2 - 1.2 04/07 Specimen Type: SERUM No comment entered. Ordering Provider: JAMILA BARRON Report Released Date/Time: Apr 04, 2024 05:53 PM Reporting Lab: [facility] [place] [facility] [address] [facility] [address] Performing Lab: [facility] [address] [facility] [address] [facility] BASIC METABOLI C PANEL (fasting ) UREA NITROGEN [MASS/VOLU ME] IN SERUM OR PLASMA 22 mg/dL 7 - 25 04/07 Specimen Type: SERUM No comment entered. Ordering Provider: JAMILA BARRON Report Released Date/Time: Apr 04, 2024 05:53 PM Reporting Lab: [facility] [place] [facility] [address] [facility] [address] Performing Lab: [facility] [address] [facility] [address] [facility] BASIC METABOLI C PANEL (fasting ) GLUCOSE [MASS/VOLU ME] IN SERUM OR PLASMA 93 mg/dL 65 - 100 04/07 Specimen Type: SERUM No comment entered. Ordering Provider: JAMILA BARRON Report Released Date/Time: Apr 04, 2024 05:53 PM Reporting Lab: [facility] [place] [facility] [address] [facility] [address] Performing Lab: [facility] [address] [facility] [address] [facility] BASIC METABOLI C PANEL (fasting ) SODIUM [MOLES/VOL UME] IN SERUM OR PLASMA 139 mmol/L 135 - 145 04/07 Specimen Type: SERUM No comment entered. Ordering Provider: JAMILA BARRON Report Released Date/Time: Apr 04, 2024 05:53 PM Reporting Lab: [facility] [place] [facility] [address] [facility] [address] Performing Lab: [facility] [place] [facility] [address] [facility] [address] [facility] [facility] BASIC METABOLI C PANEL (fasting ) POTASSIUM [MOLES/VOL UME] IN SERUM OR PLASMA 3.9 mmol/L 3.5 - 5.0 04/07 Specimen Type: SERUM No comment entered. Ordering Provider: JAMILA BARRON Report Released Date/Time: Apr 04, 2024 05:53 PM Reporting Lab: [facility] [place] [facility] [address] [facility] [address] Performing Lab: [facility] [place] [address] [address] [facility] [place] [facility] BASIC METABOLI C PANEL (fasting ) CHLORIDE [MOLES/VOL UME] IN SERUM OR PLASMA 102 mmol/L 100 - 110 04/07 Specimen Type: SERUM No comment entered. Ordering Provider: JAMILA BARRON Report Released Date/Time: Apr 04, 2024 05:53 PM Reporting Lab: [facility] [place] [address] [address] Performing Lab: [facility] [place] [address] [address] [facility] [place] [facility] BASIC METABOLI C PANEL (fasting ) CARBON DIOXIDE, TOTAL [MOLES/VOL UME] IN SERUM OR PLASMA 26 meq/L 20 - 30 04/07 Specimen Type: SERUM No comment entered. Ordering Provider: JAMILA BARRON Report Released Date/Time: Apr 04, 2024 05:53 PM Reporting Lab: [facility] [place] [facility] [address] [facility] [address] Performing Lab: [facility] [place] [address] [address] [facility] [place] [facility] BASIC METABOLI C PANEL (fasting ) CREATININE [MASS/VOLU ME] IN SERUM OR PLASMA 0.92 mg/dL 0.50 - 1.40 04/07 Specimen Type: SERUM No comment entered. Ordering Provider: JAMILA BARRON Report Released Date/Time: Apr 04, 2024 05:53 PM Reporting Lab: [facility] [place] [facility] [address] [facility] [address] Performing Lab: [facility]USUSE[address] [address] [facility] [facility] BASIC METABOLI C PANEL (fasting ) GLOMERULAR FILTRATION RATE/1.73 SQ M.PREDICTE D [VOLUME RATE/AREA] IN SERUM, PLASMA OR BLOOD BY CREATININE -BASED FORMULA (CKD-EPI 2020) 82 mL/min 60 04/07 Specimen Type: SERUM No comment entered. Ordering Provider: JAMILA BARRON Report Released Date/Time: Apr 04, 2024 05:53 PM Reporting Lab: [facility]US[facility] [address] Performing Lab: [facility]USUSE[address] [address] [facility]N [facility] TSH THYROTROPI N [UNITS/VOL UME] IN SERUM OR PLASMA 2.34 u[IU]/mL 0.35 - 5.00 04/07 Specimen Type: SERUM No comment entered. Ordering Provider: JAMILA BARRON Report Released Date/Time: Apr 04, 2024 05:53 PM Reporting Lab: [facility]US[facility] [address] Performing Lab: [facility]USUSE[address] [address] [facility] LIPID PANEL FASTING CHOLESTERO L [MASS/VOLU ME] IN SERUM OR PLASMA 139 mg/dL 04/07 Specimen Type: SERUM No comment entered. Ordering Provider: JAMILA BARRON Report Released Date/Time: Apr 04, 2024 05:53 PM Reporting Lab: [facility]US[facility] [address] Performing Lab: [facility] [place] [facility] [address] [facility] [address] [facility]USE [facility] LIPID PANEL FASTING TRIGLYCERI DE [MASS/VOLU ME] IN SERUM OR PLASMA 136 mg/dL 0 - 150 04/07 Specimen Type: SERUM No comment entered. Ordering Provider: JAMILA BARRON Report Released Date/Time: Apr 04, 2024 05:53 PM Reporting Lab: [facility] [place] [facility] [address] [facility] [address] Performing Lab: [facility] [facility] [address] [facility] [address] [facility]USE [facility] LIPID PANEL FASTING CHOLESTERO L IN LDL [MASS/VOLU ME] IN SERUM OR PLASMA BY CALCULATIO N 72 mg/dL 0 - 129 04/07 Specimen Type: SERUM No comment entered. Ordering Provider: JAMILA BARRON Report Released Date/Time: Apr 04, 2024 05:53 PM Reporting Lab: [facility] [place] [facility] [address] [facility] [address] Performing Lab: [facility] [place] [address] [address] [facility] LIPID PANEL FASTING CHOLESTERO L.TOTAL/CH OLESTEROL IN HDL [MASS RATIO] IN SERUM OR PLASMA 3.5 04/07 Specimen Type: SERUM No comment entered. Ordering Provider: JAMILA BARRON Report Released Date/Time: Apr 04, 2024 05:53 PM Reporting Lab: [facility] [facility] [address] [facility] [address] Performing Lab: [facility] [place] [address] [address] [facility] LIPID PANEL FASTING CHOLESTERO L IN HDL [MASS/VOLU ME] IN SERUM OR PLASMA 40 mg/dL 40 - 60 04/07 Specimen Type: SERUM No comment entered. Ordering Provider: JAMILA BARRON Report Released Date/Time: Apr 04, 2024 05:53 PM Reporting Lab: [facility] [place] [facility] [address] [facility] [address] Performing Lab: [facility] [place] [facility] [address] [facility] [address] [facility] [place] [facility] CBC AND DIFF (AUTO) LEUKOCYTES [#/VOLUME] IN BLOOD BY AUTOMATED COUNT 7.77 10*3/uL 4.50 - 11.00 04/07 Specimen Type: BLOOD No comment entered. Ordering Provider: JAMILA BARRON Report Released Date/Time: Apr 04, 2024 05:53 PM Reporting Lab: [facility] [place] [facility] [address] [facility] [address] Performing Lab: [facility] [place] [facility] [address] [facility] [address] [facility] [place] [facility] CBC AND DIFF (AUTO) ERYTHROCYT ES [#/VOLUME] IN BLOOD BY AUTOMATED COUNT 4.29 10*6/uL 4.23 - 5.66 04/07 Specimen Type: BLOOD No comment entered. Ordering Provider: JAMILA BARRON Report Released Date/Time: Apr 04, 2024 05:53 PM Reporting Lab: [facility] [place] [facility] [address] [facility] [address] Performing Lab: [facility] [facility] [address] [facility] [address] [facility] [facility] CBC AND DIFF (AUTO) HEMOGLOBIN [MASS/VOLU ME] IN BLOOD 14.2 g/dL 12.8 - 17 04/07 Specimen Type: BLOOD No comment entered. Ordering Provider: JAMILA BARRON Report Released Date/Time: Apr 04, 2024 05:53 PM Reporting Lab: [facility] [place] [facility] [address] [facility] [address] Performing Lab: [facility] [place] [address] [address] [facility] [facility] CBC AND DIFF (AUTO) HEMATOCRIT [VOLUME FRACTION] OF BLOOD BY AUTOMATED COUNT 41.1 39.2 - 50.4 04/07 Specimen Type: BLOOD No comment entered. Ordering Provider: JAMILA BARRON Report Released Date/Time: Apr 04, 2024 05:53 PM Reporting Lab: [facility] [facility] [address] [facility] [address] Performing Lab: [facility] [facility] [address] [facility] [address] [facility] [place] [facility] CBC AND DIFF (AUTO) MCV [ENTITIC VOLUME] BY AUTOMATED COUNT 95.8 fL 82 - 99 04/07 Specimen Type: BLOOD No comment entered. Ordering Provider: JAMILA BARRON Report Released Date/Time: Apr 04, 2024 05:53 PM Reporting Lab: [facility] [facility] [address] [facility] [address] Performing Lab: [facility] [facility] [address] [facility] [address] [facility] [place] [facility] CBC AND DIFF (AUTO) MCHC [MASS/VOLU ME] BY AUTOMATED COUNT 34.5 g/dL 30.8 - 35.1 04/07 Specimen Type: BLOOD No comment entered. Ordering Provider: JAMILA BARRON Report Released Date/Time: Apr 04, 2024 05:53 PM Reporting Lab: [facility] [place] [facility] [address] [facility] [address] Performing Lab: [facility] [facility] [address] [facility] [address] [facility] [place] [facility] CBC AND DIFF (AUTO) PLATELETS [#/VOLUME] IN BLOOD BY AUTOMATED COUNT 184 10*3/uL 140 - 360 04/07 Specimen Type: BLOOD No comment entered. Ordering Provider: JAMILA BARRON Report Released Date/Time: Apr 04, 2024 05:53 PM Reporting Lab: [facility] [place] [facility] [address] [facility] [address] Performing Lab: [facility] [facility] [address] [facility] [address] [facility] [place] [facility] CBC AND DIFF (AUTO) ERYTHROCYT E DISTRIBUTI ON WIDTH [RATIO] BY AUTOMATED COUNT 13.1 12.0 - 16.0 04/07 Specimen Type: BLOOD No comment entered. Ordering Provider: JAMILA BARRON Report Released Date/Time: Apr 04, 2024 05:53 PM Reporting Lab: [facility] [place] [address] [address] Performing Lab: [facility] [place] [address] [address] [facility] [place] [facility] CBC AND DIFF (AUTO) MONOCYTES [#/VOLUME] IN BLOOD BY AUTOMATED COUNT 0.98 10*3/uL 0.30 - 1.10 04/07 Specimen Type: BLOOD No comment entered. Ordering Provider: JAMILA BARRON Report Released Date/Time: Apr 04, 2024 05:53 PM [facility] [place] [address] [address] Performing Lab: [facility] [place] [address] [address] [facility] [facility] CBC AND DIFF (AUTO) MCH [ENTITIC MASS] BY AUTOMATED COUNT 33.1 pg 26.2 - 32.6 04/07 H Specimen Type: BLOOD No comment entered. Ordering Provider: JAMILA BARRON Report Released Date/Time: Apr 04, 2024 05:53 PM Reporting [facility] [place] [address] [address] Performing Lab: [facility] [place] [address] [address] [facility] [place] [facility] CBC AND DIFF (AUTO) NEUTROPHIL S/100 LEUKOCYTES IN BLOOD BY AUTOMATED COUNT 52.3 43.7 - 75.8 04/07 Specimen Type: BLOOD No comment entered. Ordering Provider: JAMILA BARRON Report Released Date/Time: Apr 04, 2024 05:53 PM Reporting [facility] [place] [address] [address] Performing Lab[facility] [place] [address] [address] [facility] [place] [facility] CBC AND DIFF (AUTO) LYMPHOCYTE S/100 LEUKOCYTES IN BLOOD BY AUTOMATED COUNT 31.7 14.0 - 42.3 04/07 Specimen Type: BLOOD No comment entered. Ordering Provider: JAMILA BARRON Report Released Date/Time: Apr 04, 2024 05:53 PM Reporting Lab: [facility] [place] [facility] [address] [facility] [address] Performing Lab: [facility] [place] [facility] [address] [place] [phone] [facility] CBC AND DIFF (AUTO) MONOCYTES/ 100 LEUKOCYTES IN BLOOD BY AUTOMATED COUNT 12.6 5.1 - 13.7 04/07 Specimen Type: BLOOD No comment entered. Ordering Provider: JAMILA BARRON Report Released Date/Time: Apr 04, 2024 05:53 PM Reporting Lab: [facility] [place] [address] [address] Performing Lab: [facility] [place] [address] [address] [facility] CBC AND DIFF (AUTO) EOSINOPHIL S/100 LEUKOCYTES IN BLOOD BY AUTOMATED COUNT 2.3 0.4 - 6.8 04/07 Specimen Type: BLOOD No comment entered. Ordering Provider: JAMILA BARRON Report Released Date/Time: Apr 04, 2024 05:53 PM Reporting Lab: [facility] [place] [address] [address] Performing Lab: [facility] [place] [address] [address] [facility] [place] CBC AND DIFF (AUTO) BASOPHILS/ 100 LEUKOCYTES IN BLOOD BY AUTOMATED COUNT 0.6 0.1 - 2.0 04/07 Specimen Type: BLOOD No comment entered. Ordering Provider: JAMILA BARRON Report Released Date/Time: Apr 04, 2024 05:53 PM Reporting Lab: [facility] [place] [address] [address] Performing Lab: [facility] [place] [facility] [address] [facility] [address] [facility] [place] [facility] CBC AND DIFF (AUTO) NEUTROPHIL S [#/VOLUME] IN BLOOD BY AUTOMATED COUNT 4.06 10*3/uL 2.20 - 7.60 04/07 Specimen Type: BLOOD No comment entered. Ordering Provider: JAMILA BARRON Report Released Date/Time: Apr 04, 2024 05:53 PM Reporting Lab: [facility] [place] [facility] [address] [facility] [address] Performing Lab: [facility] [place] [facility] [address] [facility] [address] [facility] [place] [facility] CBC AND DIFF (AUTO) LYMPHOCYTE S [#/VOLUME] IN BLOOD BY AUTOMATED COUNT 2.46 10*3/uL 1.00 - 3.20 04/07 Specimen Type: BLOOD No comment entered. Ordering Provider: JAMILA BARRON Report Released Date/Time: Apr 04, 2024 05:53 PM Reporting Lab: [facility] [place] [facility] [address] [facility] [address] Performing Lab: [facility] [place] [facility] [address] [facility] [address] [facility] [place] [facility] CBC AND DIFF (AUTO) EOSINOPHIL S [#/VOLUME] IN BLOOD BY AUTOMATED COUNT 0.18 10*3/uL 0.03 - 0.44 04/07 Specimen Type: BLOOD No comment entered. Ordering Provider: JAMILA BARRON Report Released Date/Time: Apr 04, 2024 05:53 PM Reporting Lab: [facility] [place] [facility] [address] [facility] [address] Performing Lab: [facility] [place] [facility] [address] [facility] [address] [facility] [place] [facility] CBC AND DIFF (AUTO) BASOPHILS [#/VOLUME] IN BLOOD BY AUTOMATED COUNT 0.05 10*3/uL 0.01 - 0.13 04/07 Specimen Type: BLOOD No comment entered. Ordering Provider: JAMILA BARRON Report Released Date/Time: Apr 04, 2024 05:53 PM Reporting Lab: [facility] [place] [address] [address] Performing Lab: [facility] [place] [address] [address] [facility] [place] [facility] CBC AND DIFF (AUTO) IMMATURE GRANULOCYT ES/100 LEUKOCYTES IN BLOOD BY AUTOMATED COUNT 0.5 0.0 - 0.7 04/07 Specimen Type: BLOOD No comment entered. Ordering Provider: JAMILA BARRON Report Released Date/Time: Apr 04, 2024 05:53 PM Reporting Lab: [facility] [place] [address] [address] Performing Lab: [facility] [place] [address] [address] [facility] [place] [facility] CBC AND DIFF (AUTO) IMMATURE GRANULOCYT ES [#/VOLUME] IN BLOOD 0.04 10*3/uL 0.00 - 0.06 04/07 Specimen Type: BLOOD No comment entered. Ordering Provider: JAMILA BARRON Report Released Date/Time: Apr 04, 2024 05:53 PM Reporting Lab: [facility] [place] [address] [address] Performing Lab: [facility] [place] [address] [address] [facility] [place] [facility] CBC AND DIFF (AUTO) NRBC % 0.0 0.0 - 0.0 04/07 Specimen Type: BLOOD No comment entered. Ordering Provider: JAMILA BARRON Report Released Date/Time: Apr 04, 2024 05:53 PM Reporting Lab: [facility] [place] [address] [address] Performing Lab: [facility] [place] [address] [address] [facility] [place] [facility] CBC AND DIFF (AUTO) NRBC, ABS 0.00 10*3/uL 0.00 - 0.00 04/07 Specimen Type: BLOOD No comment entered. Ordering Provider: JAMILA BARRON Report Released Date/Time: Apr 04, 2024 05:53 PM Reporting Lab: [facility] [place] [facility] [address] [facility] [address] Performing Lab: [facility] [place] [facility] [address] [facility] [address] [facility] URINALYS IS CLEAN CATCH COLOR OF URINE Yellow 04/07 Specimen Type: URINE Comment: If Glucose = >500 and Ketones are positive, please alert the Physician. Ordering Provider: JAMILA BARRON Report Released Date/Time: Apr 04, 2024 05:53 PM Reporting Lab: [facility] [place] [facility] [address] [facility] [address] Performing Lab: [facility] [place] [facility] [address] [facility] [address] [facility] URINALYS IS CLEAN CATCH APPEARANCE OF URINE Clear 04/07 Specimen Type: URINE Comment: If Glucose = >500 and Ketones are positive, please alert the Physician. Ordering Provider: JAMILA BARRON Report Released Date/Time: Apr 04, 2024 05:53 PM Reporting Lab: [facility] [place] [facility] [address] [facility] [address] Performing Lab: [facility] [place] [facility] [address] [facility] [address] [facility] URINALYS IS CLEAN CATCH GLUCOSE [MASS/VOLU ME] IN URINE Normalmg /dL 04/07 Specimen Type: URINE Comment: If Glucose = >500 and Ketones are positive, please alert the Physician. Ordering Provider: JAMILA BARRON Report Released Date/Time: Apr 04, 2024 05:53 PM Reporting Lab: [facility]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 Encounter [id number] 05/27 [facility] Encounter [id number] [facility] Out[facility] Encounter [id number] 06/03 [facility] Encounter [id number] 06/06 [facility] Encounter [id number] [facility] Out[facility] Encounter [id number]/16 [facility] Out[facility] Encounter [id number] [facility] Out[facility] Encounter [id number] 06/25 [facility] Out[facility] Encounter [id number] 06/25 [facility] Out[facility] Encounter [id number] 06/26 [facility] Out[facility] Encounter [id number] 07/02 [facility] Out[facility] Encounter [id number] 07/06 [facility] Encounter [id number] 07/14 [facility] Out[facility] Encounter [id number] 07/14 [facility] Out[facility] Encounter [id number] 07/14 [facility] Out[facility] Encounter [id number] 07/16 [facility] Out[facility] Encounter [id number] 07/20 [facility] Encounter [id number] 08/06 [facility] Out[facility] Encounter [id number] [facility] Out[facility] Encounter [id number] 08/24 [facility] Out[facility] Encounter [id number] 08/27 [facility] OFFICE O/P EST MOD 30 MIN [id number] Diagnos is: ICD-10- CM 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, hole, or pseudoh ole, right eye CALDERON,LACE Y J 09/01 [facility] En[facility] [id number] 09/02 [facility] Out[facility] Encounter [id number] 09/22 [facility] Out[facility] Encounter [id number] 09/23 [facility] Out[facility] Encounter [id number] 09/24 [facility] Encounter [id number] 09/25 [facility] Out[facility] Encounter [id number] 09/26 [facility] Out[facility] Encounter [id number] 09/28 [facility] Encounter [id number] 09/28 [facility] Encounter [id number] 09/30 [facility] Out[facility] Encounter [id number] 10/04 [facility] Out[facility] Encounter [id number] 10/11 [facility] En[facility] [id number] [facility] [place] [facility] Outpatient Encounter [id number] 10/15 [facility] [place] [facility] Social History Combined list of available smoking, tobacco, and other social history from Department of Defense and Veterans Affairs facilities. Social History Type Response Date Comment Sour e Tobacco smoking status NHIS VA-TOBACCO FORMER USER 10/16/2023 [facility] [place] [facility] History of tobacco use WA-TOBACCO QUIT 15 YRS OR MORE 10[facility] History [facility] tobacco use [place]-TOBACCO FORMER USER 07[facility] History of tobacco use NSG NO TOBACCO USE PAST 30 DAYS 03/27/2022 [facility] History of tobacco use NSG NO TOBACCO USE PAST 30 DAYS 03/05/2022 [facility] History of tobacco use NSG NO TOBACCO USE PAST 30 DAYS 03/02/2022 [facility] History of tobacco use WA-TOBACCO QUIT 15 YRS OR MORE 06/28/2021 [facility] [place] [facility] History of tobacco use WA-TOBACCO FORMER USER 05/26[facility]2020 [facility] History of tobacco use [place]-TOBACCO NEVER USED 05/23/2018 [facility] Plan of Care List of future care activities from Department of Veterans Affairs facilities. Additional future care activities may be listed in the Assessment and Plan section. Date/Time Care Activity Care Activity Detail Facili ty 11/11/2024 AMBULATORY - MEDICINE AMBULATORY - MEDICI NE [facility] Advance Directives List of completed, amended, or rescinded Advance Directives on record at Department of Veterans [facility] facilities. An actual copy of the Directive is not included. Date Advance Directive Provider Source 02/19/2022 ADVANCE DIRECT[facility]OC[facility] 11/16/2020 ADVANCE DIRECTIVE BYRON BARRON [facility]
--- OUTSIDE RECORDS SUMMARY | 2024-10-26 16:35 | XMS_ITS | Encounter Summary ---
Author Organization [facility] Address [address] [place] [address] Care Team Providers Care Bladder Tier Name Role Phone [place] Primary Care Provider Cecelia Granados, Pcp Primary Care Provider Adam Rothman MD Primary Care Provider Unava ilable Encounter Details Date Type Department Care Team Description 07/22/2015 Hospital Medical Records [address], [place] [id number] [place] [address] Social History Tobacco Use Types Packs/Day Years [...] on filedocumented in this encounter Care Teams Bladder Tier Relationship Specialty Start Date End Date G[place] PCP - General Internal Medicine 07/15/11 11/14/17 Roberta, Pcp PCP - General Internal Medicine 11/15/17 11/18/17 Adam Noonan MD PCP - General Internal Medicine 11/19/17 documented as of this encounter
== END 2024-10-26 15:12 | disposition home or self-care (01) ==
LOC: HO.HID 14:12
PROVIDERS: Referring Provider Internal Medicine; Visit Provider Internal Medicine
DX: T84.7XXA Infection and inflammatory reaction due to other internal orthopedic prosthetic devices, implants and grafts, initial encounter (principal)
CPT/HCPCS: 99213

== ENCOUNTER → 2024-10-26 14:12 | Outpatient (BNVA) | payer OTHER, SELFPAY | PROVIDERS: Visit Provider Internal Medicine | DX: T84.7XXD Infection and inflammatory reaction due to other internal orthopedic prosthetic devices, implants and grafts, subsequent encounter (principal); S91.002D Unspecified open wound, left ankle, subsequent encounter; A49.01 Methicillin susceptible Staphylococcus aureus infection, unspecified site; X58.XXXD Exposure to other specified factors, subsequent encounter; Z79.2 Long term (current) use of antibiotics | CPT/HCPCS: 99212 ==

== ENCOUNTER 2024-10-28 11:54 | Outpatient (REF) | payer OTHER, SELFPAY ==
[2024-10-28 11:57] LABS: MANUAL DIFF FLAG NO
[2024-10-28 12:10] LABS: Basophils Absolute Auto 0.1 X10*3/uL (0.0-0.2); Basophils Percent Auto 0.8 % (0-2); Eosinophils Absolute Auto 0.9 X10*3/uL (0.0-0.4); Eosinophils Percent Auto 8.4 % (0-4); Hematocrit 34.8 % (42.0-52.0); Hemoglobin 11.6 g/dl (14.0-18.0); Imm Gran Abs Auto 0.04 X10*3/uL (0.00-0.03); Imm Gran Pct Auto 0.4 % (0.0-0.4); Lymphocytes Absolute Auto 2.1 X10*3/uL (1.2-4.9); Lymphocytes Percent Auto 19.4 % (20-40); Mean Corpuscular HGB Conc 33.3 g/dl (31.0-36.0); Mean Corpuscular Hemoglobin 31.4 pg (27.0-33.0); Mean Corpuscular Volume 94.3 fL (80.0-98.0); Mean Platelet Volume 9.6 fL (9.4-12.4); Monocytes Absolute Auto 1.1 X10*3/uL (0.1-1.2); Monocytes Percent Auto 10.4 % (2-11); Neutrophils Absolute Auto 6.4 x10*3/uL (2.0-8.3); Neutrophils Percent Auto 60.6 % (45-73); Platelet Count 263 X10*3/uL (160-400); Red Blood Count 3.69 X10*6/uL (4.60-5.80); Red Cell Distribution Width 13.8 % (11.0-16.0); White Blood Count 10.6 X10*3/uL (4.8-10.8)
[2024-10-28 12:35] LABS: Blood Urea Nitrogen 15 mg/dL (9-16); C Reactive Protein 4.51 mg/dL (< or = 0.50); Estimated Glomerular Filt Rate > 60
--- OUTSIDE RECORDS SUMMARY | 2024-10-28 14:22 | XMS_ITS | Patient Health Record ---
Author Organization [facility] [place] Address [address] [place] [address] Care Team Providers Care Assembling Machine Operator Name Role Phone Josue Simmons MD Primary Care Provider Lyn Aquino Unavailable [phone] Allergies Allergen (clinical drug ingredient) Drug/Non Drug [...] primary osteoarthritis of the ankle and/or foot ([id number]) Primary osteoarthrit is, right ankle and foot (M19.071) Active confirmed Encounters Encounter Location Date Provider Diagnosis [facility] [place] [address] [facility] [place] [address] 03/09/2024 Lyn Lund [facility] [address] [facility] [place] [address] 03/12/2024 Lyn Lund [facility] [place] [address] [facility] [place] [address] 04/02/2024 Lyn Lund Plan Of Treatment Pending Test Test Name Order Date X ray : Foot, right 3V 01/20/2015 X ray : Ankle, right 3V 03/04/2017 Insurance Providers Payer Name Payer Address Payer Phone Subscriber Number Group Number Insured Name Patient Relationship to Insured Coverage Start Date Coverage End Date Medicare [employer] [address] [place] [address] [id number] Reed Mallory Self - patient is the insured [employer] [address] [place] [address] Reed Mallory Self - patient is the [...]
--- OUTSIDE RECORDS SUMMARY | 2024-10-28 14:22 | XMS_ITS ---
Author Organization [facility] Address [address] [place] [address] Care Team Providers Care Yard Associate Name Role Phone Josue Simmons MD Primary Care Provider UnavailLyn Main [phone] REASON FOR VISIT 04/23/24 Encounters Encounter Location Date Provider Diagnosis [facility] [address] [place] [address] 04/02/2024 Lyn Lund Plan Of Treatment No Information Progress Notes * Reed MALLORY HDOB:1940 (83 yo M)Acc No.[id number]:04/02/2024 Patient:?Reed Mallory :1940???Age:83 Y???Sex:Male Address:[address] [place] [id number] * true * Date:? Generated for Printi ng/Famichaelg/eTransmitting on:?10/28/2024 02:22 PM EDT
--- OUTSIDE RECORDS SUMMARY | 2024-10-28 14:22 | XMS_ITS ---
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 Generated for Printi ng/Famichaelg/eTransmitting on:?10/28/2024 02:22 PM EDT
--- OUTSIDE RECORDS SUMMARY | 2024-10-28 14:23 | XMS_ITS ---
Author Organization [facility] Address [address] [place] [address] Care Team Providers Care Professional Skater Name Role Phone Josue Simmons MD Primary Care Provider Unavailab melinda Lyn Lund Unavailable [phone] Allergies Allergen (clinical drug ingredient) Drug/Non Drug [...] 04/23/2024 Encounters Encounter Location Date Provider Diagnosis [facility] [address] [place] [address] 04/23/2024 Lyn Lund Plan Of Treatment No Information Progress Notes * Reed MALLORY HDOB:1940 (84 yo M)Acc No.[id number]:04/23/2024 Progress Notes Patient:Reed VANCE Provider:?Lyn Lund DPM :1940???Age:83 Y???Sex:Male Chu e:04/23/2024 Address:[address] [place], [place] [id number] Pcp:Josue Simmons MD Subjective: * Chief Complaints: [...] Lund DPM Date:?2023 Generated for Yokasta palacios/Ilda/Sunil on:?10/28/2024 02:22 PM EDT
--- OUTSIDE RECORDS SUMMARY | 2024-10-28 14:23 | XMS_ITS | Continuity of Care Document ---
Author Name [facility] Organization [facility] Care Team Providers Care Driver Examiner Name Role Phone [facility] Unavailable Unavailable Problems Combined list of problems from Department of Defense and Veterans Affairs facilities. It does not include entries that were removed or entered in error. Problem Status Onset Date Problem Type Date of Resolution Comments Source Chronic dermatitis Active 023 Condition Oct 05, 2022 Entered By: BYRON BARRON Comment: referred to dermatology [facility] Chest Pain (SCT 27051439) Active Condition Jan 02, 2022 Entered By: BYRON BARRON Comment: ordered stress test [facility] COPD - Chronic Obstructive Pulmonary Disease (SCT 53850090) Active Condition Dec 28, 2021 Entered By: BYRON BARRON Comment: on inhalers [facility] Cataract Active Condition Oct 12, 2020 Entered By: BYRON BARRON Comment: referred for surgery [facility] HTN - Hypertension (SCT [id number]) Active Condition Oct 21, 2020 Entered By: BYRON BARRON Comment: treated witn medication [facility] Hypercholesterolemia (SCT 67756071) Active Condition Oct 21, 2020 Entered By: [...] of uncertain behavior of skin Active Diagnosis [facility] Diagnosis: ICD-10-CM Z13.89 Encounter for screening for other disorder Active Diagnosis [facility] Diagnosis: ICD-10-CM R21 Rash and other nonspecific skin eruption Active Diagnosis [facility] Diagnosis: ICD-10-CM Z23 Encounter for [...] WITH GRAPEFRU IT JUICE ORAL ACTIVE 12/24/2024 [id number] MLAPADandyTH EODORE K 2024 90 [facility] AMOXICILLIN TRIHYDRATE 875MG/CLAVU LANATE K 125MG TAB TAKE 1 TABLET BY MOUTH TWICE DAILY FOR INFECTIO N ORAL 11/15/2023 [id number] MAUREEN BARRON PAIGE D 2023 20 [facility] ASPIRIN 81MG TAB,CHEWABL E CHEW ONE TABLET BY MOUTH ONCE DAILY ORAL ACTIVE JANINE HAMMOND R 2021 [facility] ATORVASTATI N CA 80MG TAB TAKE ONE TABLET BY MOUTH AT BEDTIME ORAL DISCONT INUED BY PROVIDE R 06/26/2025 [id number] 5 MAUREEN BARRON PAIGE D 2023 90 [facility] ATORVASTATI N CA 80MG TAB TAKE ONE TABLET BY MOUTH AT BEDTIME ORAL DISCONT INUED 06/19/2024 [id number] 4 MOHAMUD ARGUETA AV 2022 90 [facility] CARBOXYMETH YLCELLULOSE NA 0.5% SOLN,OPH INSTILL 1 DROP INTO EACH EYE FOUR TIMES A DAY FOR DRY EYE OPHTHA LMIC ACTIVE 09/02/2025 [id number] 5 CALDERON,LAC EY J 2024 45 [facility] CEPHALEXIN 500MG CAP TAKE ONE CAPSULE BY MOUTH EVERY 8 HOURS FOR INFECTIO N ORAL 04/04/2024 [id number] 4 MAMTA STERN 2023 21 [facility] DOCUSATE NA 100MG CAP TAKE ONE CAPSULE BY MOUTH TWICE DAILY FOR 7 DAYS TO SOFTEN STOOL ORAL 10/25/2024 [id number] 5 DIDIER CANTU 2024 14 [facility] DOXYCYCLINE HYCLATE 100MG TAB TAKE ONE TABLET BY MOUTH TWICE DAILY ORAL ACTIVE 10/27/2025 [id number] 5 Janes LOPEZ MD 2024 60 [facility] EYELID CLEANSER,EY E SCRUB PAD USE 1 PAD TOPICALL Y EVERY MORNING BLEPHARI TIS TOPICA L ACTIVE 09/02/2025 [id number] 5 OSBALDO CALDERON EY J 2024 90 [facility] EZETIMIBE 10MG TAB TAKE ONE TABLET BY MOUTH ONCE DAILY TO LOWER CHOLESTE ROL ORAL ACTIVE 06/26/2025 [id number] 5 MAUREEN BARRON D 2023 90 [facility] EZETIMIBE 10MG TAB TAKE ONE TABLET BY MOUTH ONCE DAILY TO LOWER CHOLESTE ROL ORAL DISCONT INUED 06/19/2024 [id number] 4 KENDALL,MOHAMUD AV 2022 90 [facility] HYDROCHLORO THIAZIDE 25MG TAB TAKE ONE TABLET BY MOUTH ONCE DAILY ORAL ACTIVE 12/24/2024 [id number] 5 RAJI VAIL 2024 90 [facility] HYDROCHLORO THIAZIDE 25MG TAB TAKE ONE TABLET BY MOUTH ONCE DAILY ORAL 06/19/2024 [id number] KENDALL,MOHAMUD AV 2023 90 [facility] METOPROLOL SUCCINATE 50MG TAB,SA TAKE ONE TABLET BY MOUTH ONCE DAILY FOR BLOOD PRESSURE /HEART ORAL ACTIVE 06/26/2025 [id number] 5 MAUREEN BARRON PAIGE D 2023 90 [facility] METOPROLOL SUCCINATE 50MG TAB,SA TAKE ONE TABLET BY MOUTH ONCE DAILY FOR BLOOD PRESSURE /HEART ORAL DISCONT INUED 06/19/2024 [id number] KENDALL,MOHAMUD AV 2022 90 [facility] OXYCODONE HCL 5MG TAB TAKE ONE TABLET BY MOUTH EVERY 4 HOURS NEEDED FOR PAIN ORAL 10/25/2024 [id number] 5 DIDIER CANTU 2024 42 [facility] TRIAMCINOLO NE ACETONIDE 0.1% CREAM,TOP APPLY A MODERATE AMOUNT TOPICALL Y TWICE DAILY NEEDED FOR ITCHING TOPICA L 10/24/2024 [id number] 4 BEATRICEMAUREEN PAIGE D 2023 454 [facility] Allergies, Adverse Reactions, Alerts Combined list of allergies from Department of Defense and Veterans Affairs facilities. It does not include entries that were removed or entered in error. Substance Category Reaction Severity Reaction type Status Date Reported Comments Source LIDOCAINE Propensity to adverse reactions to drug (finding) Itching MODERATE active 2 [facility] NOVOCAIN Propensity to adverse reactions to drug (finding) Feeling agitated active 8 [facility] PROCAINE Propensity to adverse reactions to drug (finding) active 2 [facility] Immunizations Combined list of available immunizations from the Department of [facility] and Veterans Affairs facilities. Immunization Series Date Given Administered By Site Reaction Lot Number CVX Code Drug Geographic Information System Analyst Status Comments Source COVID-19 (MODERNA), MRNA, LNP-S, PF, 50 MCG/0.5 ML (AGES 12+ YEARS) 7 2023 ALMA MAHER LEFT DELTO ID [id number] 312 complet ed [facility] INFLUENZA, HIGH-DOSE, TRIVALENT, PF 2023 ALMA MAHER LEFT DELTO ID [id number] 135 complet ed Completed Series, [facility] RSV, BIVALENT, PROTEIN SUBUNIT RSVPREF, DILUENT RECONSTITUTED , 0.5 ML, PF 1 2023 GRETCHEN ANDRADE LEFT DELTO ID [id number] 305 complet ed [facility] COVID-19 (MODERNA), MRNA, LNP-S, PF, 50 MCG/0.5 ML (AGES 12+ YEARS) 1 2023 GRETCHEN ANDRADE E LEFT DELTO ID [id number] 312 complet ed [facility] INFLU[facility], HIGH-DOSE, QUADRIVALENT 2022 NEELJERRI M LEFT DELTO ID [id number] 197 complet ed [facility] COVID-19 (MODERNA), MRNA, LNP-S, BIVALENT BOOSTER, PF, 50 MCG/0.5 ML OR 25MCG/0.25 ML DOSE 2021 JERRI SHAIKH JAMISON M LEFT DELTO ID [id number] 229 complet ed Booster for Series, [facility] INFLUENZA VACCINE, QUADRIVALENT, ADJUVANTED 2021 205 complet ed [facility] COVID-19 (MODERNA), MRNA, LNP-S, PF, 100 MCG/0.5ML DOSE OR 50 MCG/0.25ML DOSE 3 2021 207 complet ed MOD; [id number] ; 2 [facility] PNEUMOCOCCAL CONJUGATE PCV20, POLYSACCHARID E [id number] CONJUGATE, ADJUVANT, PF 2021 216 complet ed [facility] COVID-19 (MODERNA), MRNA, LNP-S, PF, 100 MCG OR 50 MCG DOSE 3 2020 207 complet ed MOD; [id number]; 2 [facility] INFLUENZA, UNSPECIFIED FORMULATION 2020 88 complet ed [facility] TDAP 2020 115 complet ed [facility] COVID-19 (MODERNA), MRNA, LNP-S, PF, 100 MCG/0.5 ML DOSE 2 2020 207 complet ed MOD; [id number]; 1 [facility] COVID-19 (MODERNA), MRNA, LNP-S, PF, 100 MCG/0.5 ML DOSE 1 2020 207 complet ed MOD; [id number]; 1 [facility] [...] SEASONAL 2017 135 complet ed 02, Partner: [facility]. Administe red by: ARLET BOLTON (EBU=[id number]). Partner 0 Lot#: [id number] Mfr: [employer]; Dosage: 0.5 [facility] PNEUMOCOCCAL POLYSACCHARID E PPV23 2016 33 complet ed 02, Partner: [facility]. Administe red by: ARLET BOLTON (OBQ=[phone] [id number]). Partner 0 Lot#: [id number] Mfr: [employer]; Dosage: 0.5 [facility] INFLUENZA, HIGH DOSE SEASONAL 2016 135 complet ed 02, Partner: [facility]. Administe red by: ARLET BOLTON (WSR=[id number]). Partner 0 Lot#: [id number] Mfr: [employer]; Dosage: 0.5 [facility] [...] PM Reporting Lab: [facility] [address] [facility] [address] Performing Lab: [facility] [address] [facility] [address] [facility] LIVER FUNCTION ALBUMIN [MASS/VOLU ME] IN SERUM OR PLASMA 4.0 g/dL 3.5 - 5.0 04/07 Specimen Type: SERUM No comment entered. Ordering Provider: JAMILA BARRON Report Released Date/Time: Apr 04, 2024 05:53 PM Reporting Lab: [facility] [address] [facility] [address] Performing Lab: [facility] [place] [address] [address] [facility] [facility] LIVER FUNCTION ALKALINE PHOSPHATAS E [ENZYMATIC ACTIVITY/V OLUME] IN SERUM OR PLASMA 118 U/L 40 - 150 04/07 Specimen Type: SERUM No comment entered. Ordering Provider: JAMILA BARRON Report Released Date/Time: Apr 04, 2024 05:53 PM Reporting Lab: [facility] [place] [facility] [address] [facility] [address] Performing Lab: [facility] [place] [address] [address] [facility] [place] [facility] LIVER FUNCTION ASPARTATE AMINOTRANS FERASE [ENZYMATIC ACTIVITY/V OLUME] IN SERUM OR PLASMA 30 U/L 5 - 34 04/07 Specimen Type: SERUM No comment entered. Ordering Provider: JAMILA BARRON Report Released Date/Time: Apr 04, 2024 05:53 PM Reporting Lab: [facility] [place] [facility] [address] [facility] [address] Performing Lab: [facility] [place] [address] [address] [facility] [place] [facility] LIVER FUNCTION ALANINE AMINOTRANS FERASE [ENZYMATIC ACTIVITY/V OLUME] IN SERUM OR PLASMA 23 U/L 04/07 Specimen Type: SERUM No comment entered. Ordering Provider: JAMILA BARRON Report Released Date/Time: Apr 04, 2024 05:53 PM Reporting Lab: [facility] [place] [facility] [address] [facility] [address] Performing Lab: [facility] [address] [facility] [address] [facility] LIVER FUNCTION BILIRUBIN. TOTAL [MASS/VOLU ME] IN SERUM OR PLASMA 1.0 mg/dL 0.2 - 1.2 04/07 Specimen Type: SERUM No comment entered. Ordering Provider: JAMILA BARRON Report Released Date/Time: Apr 04, 2024 05:53 PM Reporting Lab: [facility] [address] [address] Performing Lab: [facility] [address] [address] [facility] BASIC METABOLI C PANEL (fasting ) UREA NITROGEN [MASS/VOLU ME] IN SERUM OR PLASMA 22 mg/dL 7 - 25 04/07 Specimen Type: SERUM No comment entered. Ordering Provider: JAMILA BARRON Report Released Date/Time: Apr 04, 2024 05:53 PM Reporting Lab: [facility] [place] [address] [address] Performing Lab: [facility] [place] [address] [address] [facility] BASIC METABOLI C PANEL (fasting ) GLUCOSE [MASS/VOLU ME] IN SERUM OR PLASMA 93 mg/dL 65 - 100 04/07 Specimen Type: SERUM No comment entered. Ordering Provider: JAMILA BARRON Report Released Date/Time: Apr 04, 2024 05:53 PM Reporting Lab: [facility] [place] [facility] [address] [facility] [address] Performing Lab: [facility] [place] [address] [address] [facility] [place] [facility] BASIC METABOLI C PANEL (fasting ) SODIUM [MOLES/VOL UME] IN SERUM OR PLASMA 139 mmol/L 135 - 145 04/07 Specimen Type: SERUM No comment entered. Ordering Provider: JAMILA BARRON Report Released Date/Time: Apr 04, 2024 05:53 PM Reporting Lab: [facility] [address] [facility] [address] Performing Lab: [facility] [place] [facility] [address] [facility] [address] [facility]PITALRRIVERVIEW REGION[facility] MED[facility] CENTERTRN MASSUSE [facility] BASIC METABOLI C PANEL (fasting ) POTASSIUM [MOLES/VOL UME] IN SERUM OR PLASMA 3.9 mmol/L 3.5 - 5.0 04/07 Specimen Type: SERUM No comment entered. Ordering Provider: JAMILA BARRON Report Released Date/Time: Apr 04, 2024 05:53 PM Reporting Lab: [facility] TRN [place] [address] [address] Performing Lab: [place] [facility] [place] [address] [address] [facility]ITALRRIVERVIEW REGIONAL MEDICAL CENTERTRN [facility]USE [facility] BASIC METABOLI C PANEL (fasting ) CHLORIDE [MOLES/VOL UME] IN SERUM OR PLASMA 102 mmol/L 100 - 110 04/07 Specimen Type: SERUM No comment entered. Ordering Provider: JAMILA BARRON Report Released Date/Time: Apr 04, 2024 05:53 PM Reporting Lab: [facility] [place] [address] [address] Performing Lab: [place] [facility] [place] [address] [address] [facility]ITALRRIVERVIEW REGION[facility]ICAL CENTERTRN MASSUSE [facility] BASIC METABOLI C PANEL (fasting ) CARBON DIOXIDE, TOTAL [MOLES/VOL UME] IN SERUM OR PLASMA 26 meq/L 20 - 30 04/07 Specimen Type: SERUM No comment entered. Ordering Provider: JAMILA BARRON Report Released Date/Time: Apr 04, 2024 05:53 PM Reporting Lab: [facility] W[facility]N [facility] [address] Performing Lab: [facility] [place] [facility] [address] [facility] [address] [place] [facility] [place] [facility] BASIC METABOLI C PANEL (fasting ) CREATININE [MASS/VOLU ME] IN SERUM OR PLASMA 0.92 mg/dL 0.50 - 1.40 04/07 Specimen Type: SERUM No comment entered. Ordering Provider: JAMILA BARRON Report Released Date/Time: Apr 04, 2024 05:53 PM Reporting Lab: [facility] [place] [facility] [address] [facility] [address] Performing Lab: [place] [facility] [address] [facility] [address] [facility] W[facility]N [facility] BASIC METABOLI C PANEL (fasting ) GLOMERULAR FILTRATION RATE/1.73 SQ M.PREDICTE D [VOLUME RATE/AREA] IN SERUM, PLASMA OR BLOOD BY CREATININE -BASED FORMULA (CKD-EPI 2020) 82 mL/min 60 04/07 Specimen Type: SERUM No comment entered. Ordering Provider: JAMILA BARRON Report Released Date/Time: Apr 04, 2024 05:53 PM Reporting Lab: [place] [facility] [address] [facility] [address] Performing Lab: [facility] [address] [facility] [address] [facility] TRN [facility] TSH THYROTROPI N [UNITS/VOL UME] IN SERUM OR PLASMA 2.34 u[IU]/mL 0.35 - 5.00 04/07 Specimen Type: SERUM No comment entered. Ordering Provider: JAMILA BARRON Report Released Date/Time: Apr 04, 2024 05:53 PM Reporting Lab: [facility] [place] [facility] [address] [facility] [address] Performing Lab: [place] [facility] [address] [facility] [address] [facility] TRN [facility] LIPID PANEL FASTING CHOLESTERO L [MASS/VOLU ME] IN SERUM OR PLASMA 139 mg/dL 04/07 Specimen Type: SERUM No comment entered. Ordering Provider: JAMILA BARRON Report Released Date/Time: Apr 04, 2024 05:53 PM Reporting Lab: [facility] [place] [facility] [address] [facility] [address] Performing Lab: [facility] [place] [facility] [address] [facility] [address] [facility] [place] [facility] LIPID PANEL FASTING TRIGLYCERI DE [MASS/VOLU ME] IN SERUM OR PLASMA 136 mg/dL 0 - 150 04/07 Specimen Type: SERUM No comment entered. Ordering Provider: JAMILA BARRON Report Released Date/Time: Apr 04, 2024 05:53 PM Reporting Lab: [facility] [place] [facility] [address] [facility] [address] Performing Lab: [facility] [place] [facility] [address] [facility] [address] [facility] [place] [facility] LIPID PANEL FASTING CHOLESTERO L IN LDL [MASS/VOLU ME] IN SERUM OR PLASMA BY CALCULATIO N 72 mg/dL 0 - 129 04/07 Specimen Type: SERUM No comment entered. Ordering Provider: JAMILA BARRON Report Released Date/Time: Apr 04, 2024 05:53 PM Reporting Lab: [facility] [place] [facility] [address] [facility] [address] Performing Lab: [facility] [place] [facility] [address] [facility] [address] [facility] [place] [facility] LIPID PANEL FASTING CHOLESTERO L.TOTAL/CH OLESTEROL IN HDL [MASS RATIO] IN SERUM OR PLASMA 3.5 04/07 Specimen Type: SERUM No comment entered. Ordering Provider: JAMILA BARRON Report Released Date/Time: Apr 04, 2024 05:53 PM Reporting Lab: [facility] [place] [facility] [address] [facility] [address] Performing Lab: [facility] [place] [facility] [address] [facility] [address] [facility] [place] [facility] LIPID PANEL FASTING CHOLESTERO L IN HDL [MASS/VOLU ME] IN SERUM OR PLASMA 40 mg/dL 40 - 60 04/07 Specimen Type: SERUM No comment entered. Ordering Provider: JAMILA BARRON Report Released Date/Time: Apr 04, 2024 05:53 PM Reporting Lab: [place] [facility] [place] [address] [address] Performing Lab: [place] [facility] [address] [address] [place] [facility] [place] [facility] CBC AND DIFF (AUTO) LEUKOCYTES [#/VOLUME] IN BLOOD BY AUTOMATED COUNT 7.77 10*3/uL 4.50 - 11.00 04/07 Specimen Type: BLOOD No comment entered. Ordering Provider: JAMILA BARRON Report Released Date/Time: Apr 04, 2024 05:53 PM Reporting Lab: [facility]N [facility] [address] [address] Performing Lab: [place] [facility] [address] [address] [facility] [place] [facility] CBC AND DIFF (AUTO) ERYTHROCYT ES [#/VOLUME] IN BLOOD BY AUTOMATED COUNT 4.29 10*6/uL 4.23 - 5.66 04/07 Specimen Type: BLOOD No comment entered. Ordering Provider: JAMILA BARRON Report Released Date/Time: Apr 04, 2024 05:53 PM Reporting Lab: [facility] [place] [address] [address] Performing Lab: [place] [facility] [place] [address] [address] [place] [facility] [place] [place] [facility] CBC AND DIFF (AUTO) HEMOGLOBIN [MASS/VOLU ME] IN BLOOD 14.2 g/dL 12.8 - 17 04/07 Specimen Type: BLOOD No comment entered. Ordering Provider: JAMILA BARRON Report Released Date/Time: Apr 04, 2024 05:53 PM Reporting Lab: [facility] [place] [address] [address] Performing Lab: [facility] [place] [facility] [address] [facility] [address] [place] [facility] [place] [facility] CBC AND DIFF (AUTO) HEMATOCRIT [VOLUME FRACTION] OF BLOOD BY AUTOMATED COUNT 41.1 39.2 - 50.4 04/07 Specimen Type: BLOOD No comment entered. Ordering Provider: JAMILA BARRON Report Released Date/Time: Apr 04, 2024 05:53 PM Reporting Lab: [facility] [place] [facility] [address] [facility] [address] Performing Lab: [facility] [place] [facility] [address] [facility] [address] [place] [facility] [place] [facility] CBC AND DIFF (AUTO) MCV [ENTITIC VOLUME] BY AUTOMATED COUNT 95.8 fL 82 - 99 04/07 Specimen Type: BLOOD No comment entered. Ordering Provider: JAMILA BARRON Report Released Date/Time: Apr 04, 2024 05:53 PM Reporting Lab: [facility] [place] [facility] [address] [facility] [address] Performing Lab: [facility] [place] [facility] [address] [facility] [address] [facility] [place] [place] [facility] CBC AND DIFF (AUTO) MCHC [MASS/VOLU ME] BY AUTOMATED COUNT 34.5 g/dL 30.8 - 35.1 04/07 Specimen Type: BLOOD No comment entered. Ordering Provider: JAMILA BARRON Report Released Date/Time: Apr 04, 2024 05:53 PM Reporting Lab: [facility] [place] [place] [facility] [address] [facility] [address] Performing Lab: [facility] [place] [facility] [address] [facility] [address] [facility] [place] [facility] CBC AND DIFF (AUTO) PLATELETS [#/VOLUME] IN BLOOD BY AUTOMATED COUNT 184 10*3/uL 140 - 360 04/07 Specimen Type: BLOOD No comment entered. Ordering Provider: JAMILA BARRON Report Released Date/Time: Apr 04, 2024 05:53 PM Reporting Lab: [facility] [place] [address] [address] Performing Lab: [facility] [place] [facility] [address] [facility] [address] [facility] [place] [facility] CBC AND DIFF (AUTO) ERYTHROCYT E DISTRIBUTI ON WIDTH [RATIO] BY AUTOMATED COUNT 13.1 12.0 - 16.0 04/07 Specimen Type: BLOOD No comment entered. Ordering Provider: JAMILA BARRON Report Released Date/Time: Apr 04, 2024 05:53 PM Reporting Lab: [facility] [place] [facility] [address] [facility] [address] Performing Lab: [place] [facility] [place] [facility] [address] [facility] [address] [facility] [place] [facility] CBC AND DIFF (AUTO) MONOCYTES [#/VOLUME] IN BLOOD BY AUTOMATED COUNT 0.98 10*3/uL 0.30 - 1.10 04/07 Specimen Type: BLOOD No comment entered. Ordering Provider: JAMILA BARRON Report Released Date/Time: Apr 04, 2024 05:53 PM Reporting Lab[facility] [place] [facility] [address] [facility] [phone] Performing Lab: [facility] [place] [facility] [address] [facility] [phone] [facility] [place] [facility] CBC AND DIFF (AUTO) MCH [ENTITIC MASS] BY AUTOMATED COUNT 33.1 pg 26.2 - 32.6 04/07 H Specimen Type: BLOOD No comment entered. Ordering Provider: JAMILA BARRON Report Released Date/Time: Apr 04, 2024 05:53 PM Reporting Lab: [facility] [place] [facility] [address] [facility] [phone] Performing Lab: [facility] [place] [facility] [address] [facility] [address] [facility] CBC AND DIFF (AUTO) NEUTROPHIL S/100 LEUKOCYTES IN BLOOD BY AUTOMATED COUNT 52.3 43.7 - 75.8 04/07 Specimen Type: BLOOD No comment entered. Ordering Provider: JAMILA BARRON Report Released Date/Time: Apr 04, 2024 05:53 PM Reporting Lab: [facility] [place] [facility] [address] [facility] [address] Performing Lab: [facility] [place] [facility] [address] [facility] [phone] [facility] [place] [facility] AND DIFF (AUTO) LYMPHOCYTE S/100 LEUKOCYTES IN BLOOD BY AUTOMATED COUNT 31.7 14.0 - 42.3 04/07 Specimen Type: BLOOD No comment entered. Ordering Provider: JAMILA BARRON Report Released Date/Time: Apr 04, 2024 05:53 PM Reporting Lab: [facility] [place] [facility] [address] [facility] [address] Performing Lab: [facility] [place] [facility] [address] [facility] [address] [facility] [place] [facility] CBC AND DIFF (AUTO) MONOCYTES/ 100 LEUKOCYTES IN BLOOD BY AUTOMATED COUNT 12.6 5.1 - 13.7 04/07 Specimen Type: BLOOD No comment entered. Ordering Provider: JAMILA BARRON Report Released Date/Time: Apr 04, 2024 05:53 PM Reporting Lab: [facility] [place] [facility] [address] [facility] [address] Performing Lab: [facility] [place] [facility] [address] [facility] [address] [facility] [place] [facility] CBC AND DIFF (AUTO) EOSINOPHIL S/100 LEUKOCYTES IN BLOOD BY AUTOMATED COUNT 2.3 0.4 - 6.8 04/07 Specimen Type: BLOOD No comment entered. Ordering Provider: JAMILA BARRON Report Released Date/Time: Apr 04, 2024 05:53 PM Reporting Lab: [facility] [place] [facility] [address] [facility] [address] Performing Lab: [facility] [place] [facility] [address] [facility] [address] [facility] [place] [facility] CBC AND DIFF (AUTO) BASOPHILS/ 100 LEUKOCYTES IN BLOOD BY AUTOMATED COUNT 0.6 0.1 - 2.0 04/07 Specimen Type: BLOOD No comment entered. Ordering Provider: JAMILA BARRON Report Released Date/Time: Apr 04, 2024 05:53 PM Reporting Lab: [facility] [place] [facility] [address] [facility] [address] Performing Lab: [facility] [place] [facility] [address] [facility] [address] [facility] [place] [facility] CBC AND DIFF (AUTO) NEUTROPHIL S [#/VOLUME] IN BLOOD BY AUTOMATED COUNT 4.06 10*3/uL 2.20 - 7.60 04/07 Specimen Type: BLOOD No comment entered. Ordering Provider: JAMILA BARRON Report Released Date/Time: Apr 04, 2024 05:53 PM Reporting Lab: [facility] [place] [facility] [address] [facility] [address] Performing Lab: [facility] [place] [facility] [address] [facility] [address] [facility] [place] [facility] CBC AND DIFF (AUTO) LYMPHOCYTE S [#/VOLUME] IN BLOOD BY AUTOMATED COUNT 2.46 10*3/uL 1.00 - 3.20 04/07 Specimen Type: BLOOD No comment entered. Ordering Provider: JAMILA BARRON Report Released Date/Time: Apr 04, 2024 05:53 PM Reporting Lab: [facility] [place] [facility] [address] [facility] [address] Performing Lab: [facility] [place] [facility] [address] [facility] [address] [facility] [place] [facility] CBC AND DIFF (AUTO) EOSINOPHIL S [#/VOLUME] IN BLOOD BY AUTOMATED COUNT 0.18 10*3/uL 0.03 - 0.44 04/07 Specimen Type: BLOOD No comment entered. Ordering Provider: JAMILA BARRON Report Released Date/Time: Apr 04, 2024 05:53 PM Reporting Lab: [facility] [place] [facility] [address] [facility] [address] Performing Lab: [facility] [place] [facility] [address] [place] [phone] [facility] [place] [facility] CBC AND DIFF (AUTO) BASOPHILS [#/VOLUME] IN BLOOD BY AUTOMATED COUNT 0.05 10*3/uL 0.01 - 0.13 04/07 Specimen Type: BLOOD No comment entered. Ordering Provider: JAMILA BARRON Report Released Date/Time: Apr 04, 2024 05:53 PM Reporting Lab: [facility] [place] [address] [address] Performing Lab: [facility] [place] [address] [address] [facility] [place] [facility] CBC AND DIFF (AUTO) IMMATURE GRANULOCYT ES/100 LEUKOCYTES IN BLOOD BY AUTOMATED COUNT 0.5 0.0 - 0.7 04/07 Specimen Type: BLOOD No comment entered. Ordering Provider: JAMILA BARRON Report Released Date/Time: Apr 04, 2024 05:53 PM Reporting Lab: [facility] [place] [address] [address] Performing Lab: [facility] [place] [address] [address] [facility] [place] [facility] CBC AND DIFF (AUTO) IMMATURE GRANULOCYT ES [#/VOLUME] IN BLOOD 0.04 10*3/uL 0.00 - 0.06 04/07 Specimen Type: BLOOD No comment entered. Ordering Provider: JAMILA BARRON Report Released Date/Time: Apr 04, 2024 05:53 PM Reporting Lab: [facility] [place] [address] [address] Performing Lab: [facility] [place] [address] [address] [facility] [place] [facility] CBC AND DIFF (AUTO) NRBC % 0.0 0.0 - 0.0 04/07 Specimen Type: BLOOD No comment entered. Ordering Provider: JAMILA BARRON Report Released Date/Time: Apr 04, 2024 05:53 PM Reporting Lab: [facility] [place] [address] [address] Performing Lab: [facility] [place] [facility] [address] [facility] [address] [facility] [place] [facility] CBC AND DIFF (AUTO) NRBC, ABS 0.00 10*3/uL 0.00 - 0.00 04/07 Specimen Type: BLOOD No comment entered. Ordering Provider: JAMILA BARRON Report Released Date/Time: Apr 04, 2024 05:53 PM Reporting Lab: [facility] [place] [facility] [address] [facility] [address] Performing Lab: [facility] [place] [address] [address] [facility] [place] [facility] URINALYS IS CLEAN CATCH COLOR OF URINE Yellow 04/07 Specimen Type: URINE Comment: If Glucose = >500 and Ketones are positive, please alert the Physician. Ordering Provider: JAMILA BARRON Report Released Date/Time: Apr 04, 2024 05:53 PM Reporting Lab: [facility] [place] [address] [address] Performing Lab: [facility] [place] [address] [address] [facility] [place] [facility] URINALYS IS CLEAN CATCH APPEARANCE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 is: ICD-10- CM Z71.89 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 JOSIE Duval 03/05 [facility] OFFICE O/P EST LOW 20 MIN [id number] Diagnos is: ICD-10- CM L60.1 Onychol PASCUAL Lechuga 03/05 [facility] OFF/OP EST MAY X REQ PHY/QHP [id number] Diagnos is: ICD-10- CM Z48.01 Encount er for change or removal of surgica l wound KAVEH Fox 03/06 [facility] Out[facility] Encounter [id number] 03/18 [facility] OFF/OP CNSLTJ NEW/EST MOD 40 [id number] Diagnos is: ICD-10- CM H90.A31 Mix cndct/s nrl hear loss,un i,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 Diagnos is: ICD-10- CM I10 Essenti al (primar y) hyperte nsRICO Savage RD 04/13 [facility] En[facility] [id number] 1.04/14 [facility] Encounter [id number] [facility] Encounter [id number] 04/23 [facility] Encounter [id number] 1.04/24 [facility] OFFICE O/P EST MOD 30 MIN [id number] Diagnos is: ICD-10- CM 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 RANCHO RODRIGUEZ 04/28 [facility] CONFORMITY EVALUATION [id number] Diagnos is: ICD-10- CM Z46.1 Encount er for fitting and adjustm ent of hearing aid Yossi HARRINGTON 05/05 [facility] En[facility] [id number] 05/08 [facility] En[facility] [id number] [facility] Encounter [id number] 06/01 [facility] Encounter [id number] 06/03 [facility] Encounter [id number] 06/06 [facility] Encounter [id number]/15 [facility] Encounter [id number]/16 [facility] Encounter [id number] 06/19 [facility] Encounter [id number] 06/25 [facility] Encounter [id number] 06/25 [facility] Encounter [id number] 06/26 [facility] Encounter [id number] 07/02 [facility] Encounter [id number]/06 [facility] Encounter [id number] 07/14 [facility] Encounter [id number] 07/14 [facility] Out[facility] Encounter [id number] [facility] Encounter [id number] 07/16 [facility] Encounter [id number] 07/20 [facility] Encounter [id number] [facility] Encounter [id number] 08/17 [facility] Encounter [id number] 08/24 [facility] Encounter [id number] 08/27 [facility] OFFICE O/P EST MOD 30 MIN [id number] Diagnos is: ICD-10- CM 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, hole, or pseudoh ole, right eye CALDERON,LACE Y J 09/01 [facility] En[facility] [id number] 09/02 [facility] Encounter [id number] 09/22 [facility] Encounter [id number] 09/23 [facility] Encounter [id number] 09/24 [facility] Encounter [id number] 09/25 [facility] Encounter [id number] 09/26 [facility] Encounter [id number] 09/28 [facility] Encounter [id number] 09/28 [facility] Encounter [id number] 09/30 [facility] Encounter [id number] 10/04 [facility] [place] Outpatient Encounter [id number] 10/11 [facility] [place] [facility] [place] [facility] Outpatient Encounter [id number] 10/15 [facility] [place] [facility] [place] [facility] Outpatient Encounter [id number] 10/15 [facility] [place] [facility] Social History Combined list of available smoking, tobacco, and other social history from Department of Defense and Veterans Affairs facilities. Social History Type Response Date Comment [facility] e Tobacco smoking status NHIS VA-TOBACCO QUIT 15 YRS OR MORE 10/16/2023 [facility] [place] [facility] History of tobacco use VA-TOBACCO FORMER USER 10/16/2023 [facility] [place] [facility] History of tobacco use VA-TOBACCO FORMER USER 07/04/2022 [facility] [place] [facility] History of tobacco use NSG NO TOBACCO USE PAST 30 DAYS 03/27/2022 [facility] History of tobacco use NSG NO TOBACCO USE PAST 30 DAYS 03/05/2022 [facility] History of tobacco use NSG NO TOBACCO USE PAST 30 DAYS 03/02/2022 [facility] History of tobacco use [facility]-TOBACCO FORMER [facility]ER [facility]28[facility]20[facility] [place] [facility] History of tobacco use VA-TOBACCO FORMER USER 05/26/2020 [facility] [place] [facility] History of tobacco use VA-TOBACCO NEVER USED 05/23/2018 [facility] [place] [facility] Plan of Care List of future care activities from [facility] facilities. Additional future care activities may be listed in the Assessment and Plan section. Date/Time Care Activity Care Activity Detail Facili ty 11/11/2024 AMBULATORY - MEDICINE AMBULATORY - [facility] Advance Directives List of completed, amended, or rescinded Advance Directives on record at [facility] Veterans [facility] facilities. An actual copy of the Directive is not included. Date Advance Directive Provider Source 02/19/2022 ADVANCE DIRECTIVE JOCE CASTORENA [facility] 11/16/2020 ADVANCE DIRECTIVE BYRON BARRON [facility]
[2024-10-29 13:40] LABS: Anion Gap 12 (12-20); Calcium 8.9 mg/dL (8.4-10.2); Carbon Dioxide 25 mmol/L (22-29); Chloride 106 mmol/L (96-108); Glucose Random 75 mg/dL (60-115); Potassium 4.1 mmol/L (3.3-5.1); Sodium 139 mmol/L (135-145)
== END 2024-10-28 11:55 | disposition home or self-care (01) ==
LOC: HO.HVNA 11:54
PROVIDERS: Visit Provider Internal Medicine
DX: M00.872 Arthritis due to other bacteria, left ankle and foot (principal)
CPT/HCPCS: 36415; 80048; 82550; 82565; 84520; 85025; 86140

== ENCOUNTER 2024-10-30 12:27 | Inpatient (IN) | payer OTHER, SELFPAY ==
[2024-10-30 12:29] VITALS: BP 161/56; PULSE 73; RESP 18; TEMP 36.4; O2SAT 97; BMI 27.6
--- NOTE | 2024-10-30 12:30 | ED.UPPEXIN ---
HPI - Extremity Injury (Upper) General Chief Complaint: General Medical Stated Complaint: ? R Arm Infection Time Seen by Provider: 10/30/24 14:24 Source: patient, RN notes reviewed and old records reviewed Mode of arrival: ambulatory History of Present Illness ED Provider: Alexsandra Hatch PA-C HPI narrative: 84-year-old male with a past medical history of COPD, aortic stenosis s/p TAVR, CAD s/p CHUNG, HTN, HLD, recently discharged from our facility on 09/25/2024 for infected hardware to left ankle s/p ORIF /p irrigation and debridement with cultures growing staph aureus discharged with PICC line on IV daptomycin per ID recommendations x 6 weeks, presenting to ED today with suspected PICC line site infection. Patient had PICC line placed in our facility on 09/23/2024. Reports increasing erythema and malodor noted to site x 2-3 days. Self administers IV daptomycin at home, states last dose yesterday. Patient had VNA today who sent him to the ED for further eval. Denies fever, chills, drainage from area. Related Data Home Medications ?Medication ?Instructions ?Recorded ?Confirmed acetaminophen 325 mg tablet 650 mg PO Q6H PRN pain 09/22/24 09/22/24 atorvastatin 80 mg tablet 80 mg PO DAILY 09/22/24 09/22/24 Previous Rx's ?Medication ?Instructions ?Recorded aspirin 81 mg tablet,delayed 81 mg PO DAILY #90 tabs 06/19/23 release (Adult Aspirin Regimen) ezetimibe 10 mg tablet 10 mg PO DAILY #90 tabs 06/19/23 metoprolol succinate 50 mg 50 mg PO DAILY #90 tabs 06/19/23 tablet,extended release 24 hr Thigh high compression stocking #2 ea 08/17/24 hydrochlorothiazide 25 mg tablet 25 mg PO DAILY #90 tabs 09/23/24 amlodipine 5 mg tablet 5 mg PO DAILY #90 tabs 09/25/24 daptomycin 500 mg intravenous 317.516 mg IV Q24H 6 weeks #10 ea 09/25/24 solution docusate sodium 100 mg capsule 100 mg PO BID 7 days #14 caps 09/25/24 doxycycline hyclate 100 mg capsule 100 mg PO BID 30 days #60 caps 10/26/24 Allergies Allergy/AdvReac Type Severity Reaction Status Date / Time niacin Allergy Severe Upset Verified 10/30/24 12:37 Stomach procaine [From Novocain] Allergy Severe I GET Verified 10/30/24 12:37 MEAN simvastatin AdvReac Severe myopathy Verified 10/30/24 12:37 Review of Systems Review of Systems: Yes all other systems are reviewed and are negative Constitutional: Constitutional: Reports as per [facility] Past Medical History Attestation statement: The following information was validated with the patient. Source: old records reviewed Medical History Ankle fracture, lateral malleolus, closed Hyperlipidemia HTN (hypertension) CAD (coronary artery disease) Murmur, cardiac Chest pain COPD (chronic obstructive pulmonary disease) Asbestosis Surgical History S/P TAVR (transcatheter aortic valve replacement) Stented coronary artery Hx of cardiac catheterization Family History Family History Father CAD (coronary artery disease) Mother No problems noted. Social History Social History Household Members: None Housing: House Are you a primary inspector health care facilities to a significant other at home: No Do you presently have visiting nurse or other home services: Yes Comment: pt refusing bed alarm; ongoing Patient Tobacco Use Status: Former Tobacco user Tobacco use type: Cigarette and Cigar Years Smoked: 14 years old e-Cigarette/Vaping Use: Former Use Second Hand Smoke Exposure: No Advance Directives: No Advance Directives Information Provided: Yes Do you have a plan to hurt others: No Plan service: Yes Physical Exam Vital Signs: Vital Signs: Last Vital Signs Temp 97.6 F 10/30/24 12:29 Pulse 73 10/30/24 12:29 Resp 18 10/30/24 12:29 BP 161/56 H 10/30/24 12:29 Pulse Ox 97 10/30/24 12:29 O2 Del Method Room Air 10/30/24 12:29 BMI result Body Mass Index 27.6 Const: General: cooperative, healthy appearing and no acute distress Orientation/consciousness: patient oriented x3 Limitations: no limitations HEENT: Head: Yes normal to inspection and Yes atraumatic Ears: hearing grossly normal bilaterally General nose exam: Normal external nose present Face and sinus: Yes normal facial exam Eyes: General: appearance normal, both eyes and all related structures EOM: EOMs intact bilaterally Neck: Neck: Yes normal visual inspection and Yes no meningeal signs Resp: Effort & Inspection: normal respiratory effort and no respiratory distress Cardio: Rate: regular rate Skin: Other: Please refer to image above of RUE. PICC site noted with surrounding erythema and swelling. No crepitus. No fluctuance. Neurovascularly intact distally. Wounds: no wounds Neuro: General: patient oriented x3, tone normal and no meningeal signs Cranial nerves: Yes CN's II-XII intact bilaterally Gait exam (Neuro): Normal gait present Extrem: General: Yes normal to inspection Course Course Course Narrative: This is a Rapid Medical Examination (RME) performed by Qiana Hope PA-C in triage. Full HPI, ROS, assessment and treatment plan per primary provider in the Main ED. 10/30/24 1238 NYDIA Tam Hx: 84 year old male hx of COPD, aortic stenosis s/p TAVR, coronary artery disease s/p CHUNG 04/03/2022, hypertension, hyperlipidemia recent admission to our facility 09/25/24 for ?septic arthritis of left ankle s/p ORIF and I&D here w/ ?infected PICC line. reports having PICC placed 1 mo ago while admitted, d/c home with daptomycin. No missed effusions. Visiting nurse had concern for redness around PICC line, advised to come to the ED. PE/vitals: Well-appearing, noted erythema surrounding PICC line insertion site Plan: labs, lactic, blood cultures -1520--no leukocytosis. H&H at patient's baseline. Labs otherwise reassuring > case discussed with infectious Disease, Dr. Keita who recommended pulling PICC line, obtaining blood cultures, culture tip, starting p.o. Levaquin in addition to scheduled IV daptomycin until culture results. Plan will be for admission >1544--case discussed with hospitalist, NYDIA Karimi Medical Decision Making Medical Decision Making MDM Narrative: 84-year-old male with a past medical history of COPD, aortic stenosis s/p TAVR, CAD s/p CHUNG, HTN, HLD, recently discharged from our facility on 09/25/2024 for infected hardware to left ankle s/p ORIF /p irrigation and debridement with cultures growing staph aureus discharged with PICC line on IV daptomycin per ID recommendations x 6 weeks, presenting to ED today with suspected PICC line site infection. On exam vital signs stable, NAD, nontoxic appearing, please refer to image above of PICC line site. Concern for PICC line infection/bacteremia vs local cellulitis. No evidence of abscess formation. Plan: Labs, ID consult, anticipated admission Please refer to course for remaining clinical decision making, interpretation of labs/imaging results, and discussions with consultants and/or family members. Differential Diagnosis Differential Diagnoses: The differential diagnosis associated with the presentation includes As above Admission/Observation Consideration of admission/observation: Escalation of care including admission/observation considered Consult Healthcare Provider Management of the patient was discussed with: Hospitalist and Popped Corn Oven Attendant (Infectious disease) Lab Data MDM Lab Attestation statement: I reviewed the patient's lab results. 10/30/24 12:54 10/30/24 12:54 Labs: Lab Results 10/30/24 Range/Units 12:54 WBC 9.4 (4.8-10.8) X10*3/uL RBC 3.76 L (4.60-5.80) X10*6/uL Hgb 12.0 L (14.0-18.0) g/dl Hct 36.1 L (42.0-52.0) % MCV 96.0 (80.0-98.0) fL MCH 31.9 (27.0-33.0) pg MCHC 33.2 (31.0-36.0) g/dl RDW 13.8 (11.0-16.0) % Plt Count 231 (160-400) X10*3/uL MPV 9.4 (9.4-12.4) fL Immature Gran % (Auto) 0.6 H (0.0-0.4) % Neut % (Auto) 59.0 (45-73) % Lymph % (Auto) 23.4 (20-40) % [place] % (Auto) 10.5 (2-11) % Eos % (Auto) 5.7 H (0-4) % Baso % (Auto) 0.8 (0-2) % Lymph # (Auto) 2.2 (1.2-4.9) X10*3/uL [place] # (Auto) 1.0 (0.1-1.2) X10*3/uL Eos # (Auto) 0.5 H (0.0-0.4) X10*3/uL Baso # (Auto) 0.1 (0.0-0.2) X10*3/uL Abs Immat Gran (auto) 0.06 H (0.00-0.03) X10*3/uL Absolute Neuts (auto) 5.6 (2.0-8.3) x10*3/uL Absolute Nucleated RBC 0.000 (0.0-0.012) X10*3/uL Nucleated RBC % (auto) 0.0 (0.0-0.2) /100WBC Sodium 139 (135-145) mmol/L Potassium 4.1 (3.3-5.1) mmol/L Chloride 107 (96-108) mmol/L Carbon Dioxide 23 (22-29) mmol/L Anion Gap 13 (12-20) BUN 17 H (9-16) mg/dL Creatinine 0.72 (0.5-1.4) mg/dL Estim Creat Clear Calc 72.1 Estimated GFR > 60 Random Glucose 91 (60-115) mg/dL Lactic Acid 2.0 (0.5-2.0) mmol/L Calcium 9.2 (8.4-10.2) mg/dL Magnesium 1.9 (1.6-2.6) mg/dL Total Bilirubin 0.7 (0.0-1.0) mg/dL AST 37 (5-37) U/L ALT 18 (0-40) U/L Total Protein 7.1 (6.5-8.0) g/dL Albumin 3.5 (3.5-5.0) g/dL Radiology Impression Discussion of test interpretation with radiology: I have reviewed the radiologist's reading. External Record Review External record reviewed: Inpatient record, Office record, Outpatient record, Prior outpatient labs, Prior outpatient radiology, Primary care record and Outside ED record Tests considered The following testing was considered but not selected: As above Prescription Management I considered prescription management with: Pain Medication and Antibiotic Chronic Conditions Patient?s care impacted by: Other Social Determinants Patient?s care significantly limited by Social Determinants of Health including: Other Social Determinant of Health Procedures Procedure Narrative Procedure Narrative: PICC line removal Removed without complication. Entire catheter removed using sterile technique Dressing applied Critical Care Time Critical Care Time Critical Care Time: Yes Total Critical Care Time: 35 Attestation: I have personally provided critical care time exclusive of time spent on separately billable procedures. Time includes review of lab data, radiology results, discussion with consultants, and monitoring for potential decompensation. Intervention performed as documented. Discharge Plan Discharge Clinical Impression: PICC line infection Patient Disposition: Admitted As Inpatient Print Language: Sami
[2024-10-30 13:02] LABS: MANUAL DIFF FLAG NO
[2024-10-30 13:11] LABS: Basophils Absolute Auto 0.1 X10*3/uL (0.0-0.2); Basophils Percent Auto 0.8 % (0-2); Eosinophils Absolute Auto 0.5 X10*3/uL (0.0-0.4); Eosinophils Percent Auto 5.7 % (0-4); Hematocrit 36.1 % (42.0-52.0); Imm Gran Abs Auto 0.06 X10*3/uL (0.00-0.03); Imm Gran Pct Auto 0.6 % (0.0-0.4); Lymphocytes Absolute Auto 2.2 X10*3/uL (1.2-4.9); Lymphocytes Percent Auto 23.4 % (20-40); Mean Corpuscular HGB Conc 33.2 g/dl (31.0-36.0); Mean Corpuscular Hemoglobin 31.9 pg (27.0-33.0); Mean Platelet Volume 9.4 fL (9.4-12.4); Monocytes Percent Auto 10.5 % (2-11); Neutrophils Absolute Auto 5.6 x10*3/uL (2.0-8.3); Platelet Count 231 X10*3/uL (160-400); Red Blood Count 3.76 X10*6/uL (4.60-5.80); Red Cell Distribution Width 13.8 % (11.0-16.0); White Blood Count 9.4 X10*3/uL (4.8-10.8)
--- NOTE | 2024-10-30 13:19 | PC.NURSE ---
patient presented to ED with swelling and redness around picc line. triage nurse outlined redness. patient is alert and oriented, has walking boot on left foot, uses knee walker and cane to ambulate, patient states he has been doing this since 15 of january.
--- OUTSIDE RECORDS SUMMARY | 2024-10-30 13:22 | XMS_ITS | Encounter Summary ---
Author Organization [facility] Address [address] [place] [address] Care Team Providers Care Rn Plastics Name Role Phone Adam Noonan MD Primary Care Provider Unava ilable Reason for Visit * Reason Onset Date Comments medication problems 02/16/2019 Encounter Details Date Type Department Care Team Description 02/16/2019 Telephone Pulmonology - [place] [address] [facility] [address] [place] [address] Eric Tucker MD medication problems [...] on 02/08, [facility] * Telephone Encounter - Hannah Tucker - 02/16/2019 4:11 PM EDT [place] [facility] send a fax that they can't fill the prescription for ALBUTEROL SULFATE (PROAIR HFA) 108 (90 BASE) MCG/ACT Aero Soln for 11 refills It needs to be send to a local pharmacy. I call and spoke with the patient and he wants the medication to be send to [id number] - [place] - [address] [facility] documented in this encounter Plan of Treatment Not on file documented as of this encounter Visit Diagnoses Diagnosis Simple chronic bronchitis (HCC)- Primary Simple chronic bronchitis documented in this encounter Care Teams Rn Plastics Relationship Specialty Start Date End Date Adam Noonan MD PCP - General Internal Medicine 11/19/17 documented as of this encounter
--- OUTSIDE RECORDS SUMMARY | 2024-10-30 13:22 | XMS_ITS ---
Author Organization [facility] Address [address] [place] [address] Care Team Providers Care Licensed Mortgage Loan Officer Name Role Phone Josue Simmons MD Primary Care Provider Unavailab Lyn Damico [phone] REASON FOR VISIT SPRING UPHOLSTERER PPWK Entered Encounters Encounter Location Date Provider Diagnosis [facility] [address] [place] [address] 03/12/2024 Lyn Lund Plan Of Treatment No Information Progress Notes * Reed MALLORY HDOB:1940 (83 yo M)Acc No.[id number]:03/12/2024 Patient:?Reed Mallory :1940???Age:83 Y???Sex:Male Address:[address] [place] [address] * true * Date:? Generated for Printi ng/Famichaelg/eTransmitting on:?10/30/2024 11:23 AM EDT
--- OUTSIDE RECORDS SUMMARY | 2024-10-30 13:22 | XMS_ITS | Encounter Summary ---
Author Organization [facility] Address [address] [place] [address] Care Team Providers Care Print Cutter Name Role Phone Adam Noonan MD Primary Care Provider Unava ilable Reason for Visit * Reason Onset Date Comments refill request 02/05/2019 Encounter Details Date Type Department Care Team Description 02/05/2019 Telephone Pulmonology - [place] [address] [facility] [address] [place] [address] Eric Tucker MD refill request [...] EDT Yes please fax script printed to [place] [facility] [place], [place] * Telephone Encounter - Xenia Bernabe - 02/05/2019 1:47 PM EDT Patient calling states was seen on January 19 was told pro air was suppose to be sent over to [facility] pharmacy and patient still has yet to rcv it and needs young fax over is [phone] documented in this encounter Plan of Treatment Not on file documented as of this encounter Visit Diagnoses Not on filedocumented in this encounter Care Teams Print Cutter Relationship Specialty Start Date End Date Adam Noonan MD PCP - General Internal Medicine 11/19/17 documented as of this encounter
--- OUTSIDE RECORDS SUMMARY | 2024-10-30 13:22 | XMS_ITS ---
Author Organization [facility] Address [address] [place] [address] Care Team Providers Care Hand Icer Name Role Phone Josue Simmons MD Primary Care Provider UnavailLyn Main [phone] REASON FOR VISIT 04/23/24 Encounters Encounter Location Date Provider Diagnosis [facility] [address] [place] [address] 04/02/2024 Lyn Lund Plan Of Treatment No Information Progress Notes * Reed MALLORY HDOB:1940 (83 yo M)Acc No.[id number]:04/02/2024 Patient:?Reed Mallory :1940???Age:83 Y???Sex:Male Address:[address] [place] [address] * true * Date:? Generated for Printi ng/Famichaelg/eTransmitting on:?10/30/2024 11:23 AM EDT
--- OUTSIDE RECORDS SUMMARY | 2024-10-30 13:22 | XMS_ITS | Patient Health Record ---
Author Organization [facility] Address [address] [place] [address] Care Team Providers Care Educational Psychologist Name Role Phone Josue Simmons MD Primary Care Provider Lyn Aquino Unavailable [phone] Allergies Allergen (clinical drug ingredient) Drug/Non Drug [...] primary osteoarthritis of the ankle and/or foot (170703180) Primary osteoarthrit is, right ankle and foot (M19.071) Active confirmed Encounters Encounter Location Date Provider Diagnosis [facility] [place] [address] [facility] [place] [address] 03/09/2024 Lyn Lund [facility] [address] [facility] [place] [address] 03/12/2024 Lyn Lund [facility] [place] [address] [facility] [place] [address] 04/02/2024 Lyn Lund Plan Of Treatment Pending Test Test Name Order Date X ray : Foot, right 3V 01/20/2015 X ray : Ankle, right 3V 03/04/2017 Insurance Providers Payer Name Payer Address Payer Phone Subscriber Number Group Number Insured Name Patient Relationship to Insured Coverage Start Date Coverage End Date Medicare National [employer] [address] [place] [address] [id number] Reed Mallory Self - patient is the insured V[employer] [address] [place] [address] Reed Mallory Self - patient is the [...]
--- OUTSIDE RECORDS SUMMARY | 2024-10-30 13:22 | XMS_ITS | Encounter Summary ---
Author Organization [facility] Address [address] [place] [address] Care Team Providers Care Mechanical Product Engineer Name Role Phone Adam Noonan MD Primary Care Provider Unava ilable Encounter Details Date Type Department Care Team Description 11/18/2018 Release of Information Medical Records [address] [place] [address] Abstract, Provider Social History Tobacco Use Types [...] on filedocumented in this encounter Care Teams Mechanical Product Engineer Relationship Specialty Start Date End Date Adam Noonan MD PCP - General Internal Medicine 11/19/17 documented as of this encounter
--- OUTSIDE RECORDS SUMMARY | 2024-10-30 13:23 | XMS_ITS ---
Author Organization [facility] Address [address] [place] [address] Care Team Providers Care Inside Meter Tester Name Role Phone Josue Simmons MD Primary Care Provider Unavailab melinda Lyn Lund Unavailable [phone] Allergies Allergen (clinical drug ingredient) Drug/Non Drug [...] 04/23/2024 Encounters Encounter Location Date Provider Diagnosis [facility] [address] [place] [address] 04/23/2024 Lyn Lund Plan Of Treatment No Information Progress Notes * Reed MALLORY HDOB:1940 (84 yo M)Acc No.[id number]:04/23/2024 Progress Notes Patient:Reed VANCE Provider:?Lyn Lund DPM :1940???Age:83 Y???Sex:Male Chu e:04/23/2024 Address:[address] [place], [place] [id number] Pcp:Josue Simmons MD Subjective: * Chief Complaints: [...] Lund DPM Date:?2023 Generated for Yokasta palacios/Ilda/Sunil on:?10/30/2024 11:23 AM EDT
--- OUTSIDE RECORDS SUMMARY | 2024-10-30 13:23 | XMS_ITS | Encounter Summary ---
Author Organization [facility] Address [address] [place] [address] Care Team Providers Care Business Analyst Sales Operations Name Role Phone [place] Primary Care Provider Cecelia Granados, Pcp Primary Care Provider Adam Rothman MD Primary Care Provider Unava ilable Encounter Details Date Type Department Care Team Description 07/22/2015 Hospital Medical Records [address] [place], [place] [id number] [place] [address] Social History Tobacco Use Types Packs/Day Years [...] on filedocumented in this encounter Care Teams Business Analyst Sales Operations Relationship Specialty Start Date End Date [place] PCP - General Internal Medicine 07/15/11 11/14/17 Roberta, Pcp PCP - General Internal Medicine 11/15/17 11/18/17 Adam Noonan MD PCP - General Internal Medicine 11/19/17 documented as of this encounter
--- OUTSIDE RECORDS SUMMARY | 2024-10-30 13:23 | XMS_ITS | Continuity of Care Document ---
Author Name [facility] Organization [facility] Care Team Providers Care Resort Keeper Name Role Phone [facility] Unavailable Unavailable Problems Combined list of problems from Department of Defense and Veterans Affairs facilities. It does not include entries that were removed or entered in error. Problem Status Onset Date Problem Type Date of Resolution Comments Source Chronic dermatitis Active 023 Condition Oct 05, 2022 Entered By: YBRON BARRON Comment: referred to dermatology [facility] Chest Pain (SCT [id number]) Active Condition Jan 02, 2022 Entered By: BYRON BARRON Comment: ordered stress test [facility] COPD - Chronic Obstructive Pulmonary Disease (SCT [id number]) Active Condition Dec 28, 2021 Entered By: BYRON BARRON Comment: on inhalers [facility] Cataract Active Condition Oct 12, 2020 Entered By: BYRON BRARON Comment: referred for surgery [facility] HTN - Hypertension (SCT [id number]) Active Condition Oct 21, 2020 Entered By: BYRON BARRON Comment: treated witn medication [facility] Hypercholesterolemia (SCT [id number]) Active Condition Oct 21, 2020 Entered By: [...] WITH GRAPEFRU IT JUICE ORAL ACTIVE 12/24/2024 [id number] MLAPADandyTH EODORE K 2024 90 [facility] AMOXICILLIN TRIHYDRATE 875MG/CLAVU LANATE K 125MG TAB TAKE 1 TABLET BY MOUTH TWICE DAILY FOR INFECTIO N ORAL 11/15/2023 [id number] MAUREEN BARRON PAIGE D 2023 20 [facility] ASPIRIN 81MG TAB,CHEWABL E CHEW ONE TABLET BY MOUTH ONCE DAILY ORAL ACTIVE JANINE HAMMOND R 2021 [facility] ATORVASTATI N CA 80MG TAB TAKE ONE TABLET BY MOUTH AT BEDTIME ORAL DISCONT INUED BY PROVIDE R 06/26/2025 [id number] 5 MAUREEN BARRON PAIGE D 2023 90 [facility] ATORVASTATI N CA 80MG TAB TAKE ONE TABLET BY MOUTH AT BEDTIME ORAL DISCONT INUED 06/19/2024 [id number] MOHAMUD ARGUETA AV 2022 90 [facility] CARBOXYMETH YLCELLULOSE NA 0.5% SOLN,OPH INSTILL 1 DROP INTO EACH EYE FOUR TIMES A DAY FOR DRY EYE OPHTHA LMIC ACTIVE 09/02/2025 [id number] 5 CALDERON,LAC EY J 2024 45 [facility] CEPHALEXIN 500MG CAP TAKE ONE CAPSULE BY MOUTH EVERY 8 HOURS FOR INFECTIO N ORAL 04/04/2024 [id number] MAMTA STERN 2023 21 [facility] DOCUSATE NA 100MG CAP TAKE ONE CAPSULE BY MOUTH TWICE DAILY FOR 7 DAYS TO SOFTEN STOOL ORAL 10/25/2024 [id number] 5 DIDIER CANTU 2024 14 [facility] DOXYCYCLINE HYCLATE 100MG TAB TAKE ONE TABLET BY MOUTH TWICE DAILY ORAL ACTIVE 10/27/2025 [id number] 5 Janes LOPEZ MD 2024 60 [facility] EYELID CLEANSER,EY E SCRUB PAD USE 1 PAD TOPICALL Y EVERY MORNING BLEPHARI TIS TOPICA L ACTIVE 09/02/2025 [id number] 5 OSBALDO CALDERON EY J 2024 90 [facility] EZETIMIBE 10MG TAB TAKE ONE TABLET BY MOUTH ONCE DAILY TO LOWER CHOLESTE ROL ORAL ACTIVE 06/26/2025 [id number] MAUREEN BARRON D 2023 90 [facility] EZETIMIBE 10MG TAB TAKE ONE TABLET BY MOUTH ONCE DAILY TO LOWER CHOLESTE ROL ORAL DISCONT INUED 06/19/2024 [id number] KENDALL,MOHAMUD AV 2022 90 [facility] HYDROCHLORO THIAZIDE 25MG TAB TAKE ONE TABLET BY MOUTH ONCE DAILY ORAL ACTIVE 12/24/2024 [id number] 5 RAJI VAIL 2024 90 [facility] HYDROCHLORO THIAZIDE 25MG TAB TAKE ONE TABLET BY MOUTH ONCE DAILY ORAL 06/19/2024 [id number] 4 KENDALL,MOHAMUD AV 2023 90 [facility] METOPROLOL SUCCINATE 50MG TAB,SA TAKE ONE TABLET BY MOUTH ONCE DAILY FOR BLOOD PRESSURE /HEART ORAL ACTIVE 06/26/2025 [id number] 5 MAUREEN BARRON PAIGE D 2023 90 [facility] METOPROLOL SUCCINATE 50MG TAB,SA TAKE ONE TABLET BY MOUTH ONCE DAILY FOR BLOOD PRESSURE /HEART ORAL DISCONT INUED 06/19/2024 [id number] 4 KENDALL,MOHAMUD AV 2022 90 [facility] OXYCODONE HCL 5MG TAB TAKE ONE TABLET BY MOUTH EVERY 4 HOURS NEEDED FOR PAIN ORAL 10/25/2024 [id number] DIDIER CANTU 2024 42 [facility] TRIAMCINOLO NE ACETONIDE 0.1% CREAM,TOP APPLY A MODERATE AMOUNT TOPICALL Y TWICE DAILY NEEDED FOR ITCHING TOPICA L 10/24/2024 [id number] 4 BEATRICEMAUREEN PAIGE D 2023 454 [facility] Allergies, Adverse Reactions, Alerts Combined list of allergies from Department of Defense and Veterans Affairs facilities. It does not include entries that were removed or entered in error. Substance Category Reaction Severity Reaction type Status Date Reported Comments Source LIDOCAINE Propensity to adverse reactions to drug (finding) Itching MODERATE active 2 [facility] NOV[place] Propensity to adverse reactions to drug (finding) Feeling agitated active 8 [facility] PROCAINE Propensity to adverse reactions to drug (finding) active 2 [facility] Immunizations Combined list of available immunizations from the Department of [facility] and Veterans Affairs facilities. 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 Comments Source COVID-19 (MODERNA), MRNA, LNP-S, PF, 50 MCG/0.5 ML (AGES 12+ YEARS) 7 2023 ALMA MAHER LEFT DELTO ID [id number] 312 complet ed [facility] [facility] INFLUENZA, HIGH-DOSE, TRIVALENT, PF 2023 ALMA MAHER LEFT DELTO ID [id number] 135 complet ed Completed Series, [facility] [facility] RSV, BIVALENT, PROTEIN SUBUNIT RSVPREF, DILUENT RECONSTITUTED , 0.5 ML, PF 1 2023 GRETCHEN ANDRADE LEFT DELTO ID [id number] 305 complet ed [facility] [employer] [facility] COVID-19 (MODERNA), MRNA, LNP-S, PF, 50 MCG/0.5 ML (AGES 12+ YEARS) 1 2023 GRETCHEN ANDRADE E LEFT DELTO ID [id number] 312 complet ed [facility] INFLUENZA, HIGH-DOSE, QUADRIVALENT 2022 NEELJERRI M LEFT DELTO ID [id number] 197 complet ed [facility] COVID-19 (MODERNA), MRNA, LNP-S, BIVALENT BOOSTER, PF, 50 MCG/0.5 ML OR 25MCG/0.25 ML DOSE 2021 JERRI SHAIKH JAMISON M LEFT DELTO ID [id number] 229 complet ed Booster for Series, [facility] INFLUENZA VACCINE, QUADRIVALENT, ADJUVANTED 2021 205 complet ed [facility] COVID-19 (MODERNA), MRNA, LNP-S, PF, 100 MCG/0.5ML DOSE OR 50 MCG/0.25ML DOSE 3 2021 207 complet ed MOD; [id number] ; 2 [facility] PNEUMOCOCCAL CONJUGATE PCV20, POLYSACCHARID E [id number] CONJUGATE, ADJUVANT, PF 2021 216 complet ed [facility] COVID-19 (MODERNA), MRNA, LNP-S, PF, 100 MCG OR 50 MCG DOSE 3 2020 207 complet ed MOD; [id number]; 2 [facility] INFLUENZA, UNSPECIFIED FORMULATION 2020 88 complet ed [facility] TDAP [address] [facility] COVID-19 (MODERNA), MRNA, LNP-S, PF, 100 MCG/0.5 ML DOSE 2 2020 207 complet ed MOD; [id number]; 1 [facility] COVID-19 (MODERNA), MRNA, LNP-S, PF, 100 MCG/0.5 ML DOSE 1 2020 207 complet ed MOD; [id number]; 1 [facility] [...] SEASONAL 2017 135 complet ed 02, Partner: [facility]. Administe red by: ARLET BOLTON (OHL=[phone]). Partner 0 Lot#: [id number] Mfr: [employer]; Dosage: 0.5 [facility] PNEUMOCOCCAL POLYSACCHARID E PPV23 2016 33 complet ed 02, Partner: [facility]. Administe red by: ARLET BOLTON (CAC=[phone]). Partner 0 Lot#: [id number] Mfr: [employer]; Dosage: 0.5 [facility] INFLUENZA, HIGH DOSE SEASONAL 2016 135 complet ed 02, Partner: [facility]. Administe red by: ARLET BOLTON (IQW=[phone]). Partner 0 Lot#: [id number] Mfr: [employer]; Dosage: 0.5 [facility] [...] PM Reporting Lab: [facility] [address] [facility] [address] Performing Lab: [facility] [address] [facility] [address] [facility] LIVER FUNCTION ALBUMIN [MASS/VOLU ME] IN SERUM OR PLASMA 4.0 g/dL 3.5 - 5.0 04/07 Specimen Type: SERUM No comment entered. Ordering Provider: JAMILA ABRRON Report Released Date/Time: Apr 04, 2024 05:53 PM Reporting Lab: [facility] [address] [facility] [address] Performing Lab: [facility] [address] [address] [facility] [facility] LIVER FUNCTION ALKALINE PHOSPHATAS E [ENZYMATIC ACTIVITY/V OLUME] IN SERUM OR PLASMA 118 U/L 40 - 150 04/07 Specimen Type: SERUM No comment entered. Ordering Provider: JAMILA BARRON Report Released Date/Time: Apr 04, 2024 05:53 PM Reporting Lab: [facility] [facility] [address] [facility] [address] Performing Lab: [facility] [place] [address] [address] [facility] LIVER FUNCTION ASPARTATE AMINOTRANS FERASE [ENZYMATIC ACTIVITY/V OLUME] IN SERUM OR PLASMA 30 U/L 5 - 34 04/07 Specimen Type: SERUM No comment entered. Ordering Provider: JAMILA BARRON Report Released Date/Time: Apr 04, 2024 05:53 PM Reporting Lab: [facility] [place] [facility] [address] [facility] [address] Performing Lab: [facility] [place] [address] [address] [facility] [place] [place] [facility] LIVER FUNCTION ALANINE AMINOTRANS FERASE [ENZYMATIC ACTIVITY/V OLUME] IN SERUM OR PLASMA 23 U/L 04/07 Specimen Type: SERUM No comment entered. Ordering Provider: JAMILA BARRON Report Released Date/Time: Apr 04, 2024 05:53 PM Reporting Lab: [facility] [place] [facility] [address] [facility] [address] Performing Lab: [place] [facility] [address] [facility] [address] [facility] LIVER FUNCTION BILIRUBIN. TOTAL [MASS/VOLU ME] IN SERUM OR PLASMA 1.0 mg/dL 0.2 - 1.2 04/07 Specimen Type: SERUM No comment entered. Ordering Provider: JAMILA BARRON Report Released Date/Time: Apr 04, 2024 05:53 PM Reporting Lab: [facility] [address] [address] Performing Lab: [place] [facility] [address] [address] [facility] BASIC METABOLI C PANEL (fasting ) UREA NITROGEN [MASS/VOLU ME] IN SERUM OR PLASMA 22 mg/dL 7 - 25 04/07 Specimen Type: SERUM No comment entered. Ordering Provider: JAMILA BARRON Report Released Date/Time: Apr 04, 2024 05:53 PM Reporting Lab: [facility] [place] [address] [address] Performing Lab: [place] [facility] [place] [address] [address] [facility] BASIC METABOLI C PANEL (fasting ) GLUCOSE [MASS/VOLU ME] IN SERUM OR PLASMA 93 mg/dL 65 - 100 04/07 Specimen Type: SERUM No comment entered. Ordering Provider: JAMILA BARRON Report Released Date/Time: Apr 04, 2024 05:53 PM Reporting Lab: [facility] [place] [facility] [address] [facility] [address] Performing Lab: [facility] [place] [address] [address] [facility] BASIC METABOLI C PANEL (fasting ) SODIUM [MOLES/VOL UME] IN SERUM OR PLASMA 139 mmol/L 135 - 145 04/07 Specimen Type: SERUM No comment entered. Ordering Provider: JAMILA BARRON Report Released Date/Time: Apr 04, 2024 05:53 PM Reporting Lab: [facility] [address] [facility] [address] Performing Lab: [facility] [place] [facility] [address] [facility] [address] [facility]TRN MASSUSE [facility] BASIC METABOLI C PANEL (fasting ) POTASSIUM [MOLES/VOL UME] IN SERUM OR PLASMA 3.9 mmol/L 3.5 - 5.0 04/07 Specimen Type: SERUM No comment entered. Ordering Provider: JAMILA BARRON Report Released Date/Time: Apr 04, 2024 05:53 PM Reporting Lab: [facility] TRN [place] [address] [address] Performing Lab: [place] [address] [address] [facility]ITALRENCOM[facility] MON[facility]ERYTRN [facility] BASIC METABOLI C PANEL (fasting ) CHLORIDE [MOLES/VOL UME] IN SERUM OR PLASMA 102 mmol/L 100 - 110 04/07 Specimen Type: SERUM No comment entered. Ordering Provider: JAMILA BARRON Report Released Date/Time: Apr 04, 2024 05:53 PM Reporting Lab: [facility] [place] [address] [address] Performing Lab: [place] [facility] [address] [address] [facility]ITALRENCOM[facility]ERYTRN MAS[facility] BASIC METABOLI C PANEL (fasting ) CARBON DIOXIDE, TOTAL [MOLES/VOL UME] IN SERUM OR PLASMA 26 meq/L 20 - 30 04/07 Specimen Type: SERUM No comment entered. Ordering Provider: JAMILA BARRON Report Released Date/Time: Apr 04, 2024 05:53 PM Reporting Lab: [facility] WSTRN [address]SE[address] [address] Performing Lab: [facility] [place] [facility] [address] [facility] [address] [place] [facility] [facility] [facility] BASIC METABOLI C PANEL (fasting ) CREATININE [MASS/VOLU ME] IN SERUM OR PLASMA 0.92 mg/dL 0.50 - 1.40 04/07 Specimen Type: SERUM No comment entered. Ordering Provider: JAMILA BARRON Report Released Date/Time: Apr 04, 2024 05:53 PM Reporting Lab: [facility] [place] [facility] [address] [facility] [address] Performing Lab: [place] [facility] [address] [facility] [address] [facility] BASIC METABOLI C PANEL (fasting ) GLOMERULAR FILTRATION RATE/1.73 SQ M.PREDICTE D [VOLUME RATE/AREA] IN SERUM, PLASMA OR BLOOD BY CREATININE -BASED FORMULA (CKD-EPI 2020) 82 mL/min 60 04/07 Specimen Type: SERUM No comment entered. Ordering Provider: JAMILA BARRON Report Released Date/Time: Apr 04, 2024 05:53 PM Reporting Lab: [place] [facility] [address] [facility] [address] Performing Lab: [place] [facility] [address] [facility] [address] [facility] TRN [facility] TSH THYROTROPI N [UNITS/VOL UME] IN SERUM OR PLASMA 2.34 u[IU]/mL 0.35 - 5.00 04/07 Specimen Type: SERUM No comment entered. Ordering Provider: JAMILA BARRON Report Released Date/Time: Apr 04, 2024 05:53 PM Reporting Lab: [place] [facility] [place] [facility] [address] [facility] [address] Performing Lab: [place] [facility] [facility]ITAL[facility] [address] [facility] [address] [facility] TRN [facility] LIPID PANEL FASTING CHOLESTERO L [MASS/VOLU ME] IN SERUM OR PLASMA 139 mg/dL 04/07 Specimen Type: SERUM No comment entered. Ordering Provider: JAMILA BARRON Report Released Date/Time: Apr 04, 2024 05:53 PM Reporting Lab: [facility] [place] [facility] [address] [facility] [address] Performing Lab: [facility] [place] [facility] [address] [facility] [address] [facility] [place] [facility] LIPID PANEL FASTING TRIGLYCERI DE [MASS/VOLU ME] IN SERUM OR PLASMA 136 mg/dL 0 - 150 04/07 Specimen Type: SERUM No comment entered. Ordering Provider: JAMILA BARRON Report Released Date/Time: Apr 04, 2024 05:53 PM Reporting Lab: [facility] [place] [facility] [address] [facility] [address] Performing Lab: [facility] [place] [facility] [address] [facility] [address] [place] [facility] [facility] [facility] LIPID PANEL FASTING CHOLESTERO L IN LDL [MASS/VOLU ME] IN SERUM OR PLASMA BY CALCULATIO N 72 mg/dL 0 - 129 04/07 Specimen Type: SERUM No comment entered. Ordering Provider: JAMILA BARRON Report Released Date/Time: Apr 04, 2024 05:53 PM Reporting Lab: [facility] [place] [facility] [address] [facility] [address] Performing Lab: [facility] [place] [facility] [address] [facility] [address] [facility] [place] [facility] LIPID PANEL FASTING CHOLESTERO L.TOTAL/CH OLESTEROL IN HDL [MASS RATIO] IN SERUM OR PLASMA 3.5 04/07 Specimen Type: SERUM No comment entered. Ordering Provider: JAMILA BARRON Report Released Date/Time: Apr 04, 2024 05:53 PM Reporting Lab: [facility] [place] [facility] [address] [facility] [address] Performing Lab: [facility] [place] [facility] [address] [facility] [address] [facility] [place] [facility] LIPID PANEL FASTING CHOLESTERO L IN HDL [MASS/VOLU ME] IN SERUM OR PLASMA 40 mg/dL 40 - 60 04/07 Specimen Type: SERUM No comment entered. Ordering Provider: JAMILA BARRON Report Released Date/Time: Apr 04, 2024 05:53 PM Reporting Lab: [place] [facility] [address] [address] Performing Lab: [place] [facility] [facility] [address] [address] [place] [facility] [facility] CBC AND DIFF (AUTO) LEUKOCYTES [#/VOLUME] IN BLOOD BY AUTOMATED COUNT 7.77 10*3/uL 4.50 - 11.00 04/07 Specimen Type: BLOOD No comment entered. Ordering Provider: JAMILA BARRON Report Released Date/Time: Apr 04, 2024 05:53 PM Reporting Lab: [facility]RL TRN [facility] [address] [address] Performing Lab: [place] [address] [address] [facility] [place] [facility] CBC AND DIFF (AUTO) ERYTHROCYT ES [#/VOLUME] IN BLOOD BY AUTOMATED COUNT 4.29 10*6/uL 4.23 - 5.66 04/07 Specimen Type: BLOOD No comment entered. Ordering Provider: JAMILA BARRON Report Released Date/Time: Apr 04, 2024 05:53 PM Reporting Lab: [facility] [place] [address] [address] Performing Lab: [place] [facility] [address] [address] [place] [facility] [facility] CBC AND DIFF (AUTO) HEMOGLOBIN [MASS/VOLU ME] IN BLOOD 14.2 g/dL 12.8 - 17 04/07 Specimen Type: BLOOD No comment entered. Ordering Provider: JAMILA BARRON Report Released Date/Time: Apr 04, 2024 05:53 PM Reporting Lab: [facility] [place] [address] [address] Performing Lab: [place] [facility] [facility] [address] [facility] [address] [place] [facility] [facility] CBC AND DIFF (AUTO) HEMATOCRIT [VOLUME FRACTION] OF BLOOD BY AUTOMATED COUNT 41.1 39.2 - 50.4 04/07 Specimen Type: BLOOD No comment entered. Ordering Provider: JAMILA BARRON Report Released Date/Time: Apr 04, 2024 05:53 PM Reporting Lab: [place] [facility] [facility] [address] [facility] [address] Performing Lab: [facility] [place] [facility] [address] [facility] [address] [place] [facility] [place] [facility] CBC AND DIFF (AUTO) MCV [ENTITIC VOLUME] BY AUTOMATED COUNT 95.8 fL 82 - 99 04/07 Specimen Type: BLOOD No comment entered. Ordering Provider: JAMILA BARRON Report Released Date/Time: Apr 04, 2024 05:53 PM Reporting Lab: [place] [facility] [place] [facility] [address] [facility] [address] Performing Lab: [place] [facility] [place] [facility] [address] [facility] [address] [place] [facility] [place] [facility] CBC AND DIFF (AUTO) MCHC [MASS/VOLU ME] BY AUTOMATED COUNT 34.5 g/dL 30.8 - 35.1 04/07 Specimen Type: BLOOD No comment entered. Ordering Provider: JAMILA BARRON Report Released Date/Time: Apr 04, 2024 05:53 PM Reporting Lab: [facility] [place] [facility] [address] [facility] [address] Performing Lab: [place] [facility] [place] [facility] [address] [facility] [address] [place] [facility] [place] [facility] CBC AND DIFF (AUTO) PLATELETS [#/VOLUME] IN BLOOD BY AUTOMATED COUNT 184 10*3/uL 140 - 360 04/07 Specimen Type: BLOOD No comment entered. Ordering Provider: JAMILA BARRON Report Released Date/Time: Apr 04, 2024 05:53 PM Reporting Lab: [place] [facility] [place] [address] [address] Performing Lab: [facility] [place] [facility] [address] [facility] [address] [facility] [place] [facility] CBC AND DIFF (AUTO) ERYTHROCYT E DISTRIBUTI ON WIDTH [RATIO] BY AUTOMATED COUNT 13.1 12.0 - 16.0 04/07 Specimen Type: BLOOD No comment entered. Ordering Provider: JAMILA BARRON Report Released Date/Time: Apr 04, 2024 05:53 PM Reporting Lab: [facility] [place] [facility] [address] [facility] [address] Performing Lab: [facility] [place] [facility] [address] [facility] [address] [facility] [place] [facility] CBC AND DIFF (AUTO) MONOCYTES [#/VOLUME] IN BLOOD BY AUTOMATED COUNT 0.98 10*3/uL 0.30 - 1.10 04/07 Specimen Type: BLOOD No comment entered. Ordering Provider: JAMILA BARRON Report Released Date/Time: Apr 04, 2024 05:53 PM Reporting Lab: [facility] [place] [facility] [address] [facility] [address] Performing Lab: [facility] [place] [facility] [address] [facility] [address] [facility] [place] [facility] CBC AND DIFF (AUTO) MCH [ENTITIC MASS] BY AUTOMATED COUNT 33.1 pg 26.2 - 32.6 04/07 H Specimen Type: BLOOD No comment entered. Ordering Provider: JAMILA BARRON Report Released Date/Time: Apr 04, 2024 05:53 PM Reporting Lab: [facility] [place] [facility] [address] [facility] [address] Performing Lab: [facility] [place] [facility] [address] [facility] [address] [facility] CBC AND DIFF (AUTO) NEUTROPHIL S/100 LEUKOCYTES IN BLOOD BY AUTOMATED COUNT 52.3 43.7 - 75.8 04/07 Specimen Type: BLOOD No comment entered. Ordering Provider: JAMILA BARRON Report Released Date/Time: Apr 04, 2024 05:53 PM Reporting Lab: [facility] [place] [facility] [address] [facility] [address] Performing Lab: [facility] [place] [facility] [address] [facility] [address] [facility] [facility] CBC AND DIFF (AUTO) LYMPHOCYTE S/100 LEUKOCYTES IN BLOOD BY AUTOMATED COUNT 31.7 14.0 - 42.3 04/07 Specimen Type: BLOOD No comment entered. Ordering Provider: JAMILA BARRON Report Released Date/Time: Apr 04, 2024 05:53 PM Reporting Lab: [facility] [place] [facility] [address] [facility] [address] Performing Lab: [facility] [address] [facility] [address] [facility] CBC AND DIFF (AUTO) MONOCYTES/ 100 LEUKOCYTES IN BLOOD BY AUTOMATED COUNT 12.6 5.1 - 13.7 04/07 Specimen Type: BLOOD No comment entered. Ordering Provider: JAMILA BARRON Report Released Date/Time: Apr 04, 2024 05:53 PM Reporting Lab: [facility] [place] [address] [facility] [address] Performing Lab: [facility] [place] [address] [facility] [address] [facility] CBC AND DIFF (AUTO) EOSINOPHIL S/100 LEUKOCYTES IN BLOOD BY AUTOMATED COUNT 2.3 0.4 - 6.8 04/07 Specimen Type: BLOOD No comment entered. Ordering Provider: JAMILA BARRON Report Released Date/Time: Apr 04, 2024 05:53 PM Reporting Lab: [facility] [place] [facility] [address] [facility] [address] Performing Lab: [facility] [place] [facility] [address] [facility] [address] [facility] CBC AND DIFF (AUTO) BASOPHILS/ 100 LEUKOCYTES IN BLOOD BY AUTOMATED COUNT 0.6 0.1 - 2.0 04/07 Specimen Type: BLOOD No comment entered. Ordering Provider: JAMILA BARRON Report Released Date/Time: Apr 04, 2024 05:53 PM Reporting Lab: [facility] [place] [address] [facility] [address] Performing Lab: [facility] [place] [facility] [address] [facility] [address] [facility] CBC AND DIFF (AUTO) NEUTROPHIL S [#/VOLUME] IN BLOOD BY AUTOMATED COUNT 4.06 10*3/uL 2.20 - 7.60 04/07 Specimen Type: BLOOD No comment entered. Ordering Provider: JAMILA BARRON Report Released Date/Time: Apr 04, 2024 05:53 PM Reporting Lab: [facility] [place] [address] [facility] [address] Performing Lab: [facility] [place] [facility] [address] [facility] [address] [facility] CBC AND DIFF (AUTO) LYMPHOCYTE S [#/VOLUME] IN BLOOD BY AUTOMATED COUNT 2.46 10*3/uL 1.00 - 3.20 04/07 Specimen Type: BLOOD No comment entered. Ordering Provider: JAMILA BARRON Report Released Date/Time: Apr 04, 2024 05:53 PM Reporting Lab: [facility] [place] [address] [facility] [address] Performing Lab: [facility] [place] [facility] [address] [facility] [address] [facility] CBC AND DIFF (AUTO) EOSINOPHIL S [#/VOLUME] IN BLOOD BY AUTOMATED COUNT 0.18 10*3/uL 0.03 - 0.44 04/07 Specimen Type: BLOOD No comment entered. Ordering Provider: JAMILA BARRON Report Released Date/Time: Apr 04, 2024 05:53 PM Reporting Lab: [facility] [place] [address] [facility] [address] Performing Lab: [facility] [address] [place] [address] [facility] CBC AND DIFF (AUTO) BASOPHILS [#/VOLUME] IN BLOOD BY AUTOMATED COUNT 0.05 10*3/uL 0.01 - 0.13 04/07 Specimen Type: BLOOD No comment entered. Ordering Provider: JAMILA BARRON Report Released Date/Time: Apr 04, 2024 05:53 PM Reporting Lab: [place] [facility] [place] [address] [address] Performing Lab: [facility] [place] [address] [address] [facility] CBC AND DIFF (AUTO) IMMATURE GRANULOCYT ES/100 LEUKOCYTES IN BLOOD BY AUTOMATED COUNT 0.5 0.0 - 0.7 04/07 Specimen Type: BLOOD No comment entered. Ordering Provider: JAMILA BARRON Report Released Date/Time: Apr 04, 2024 05:53 PM Reporting Lab: [place] [facility] [place] [address] [address] Performing Lab: [place] [facility] [place] [address] [address] [facility] CBC AND DIFF (AUTO) IMMATURE GRANULOCYT ES [#/VOLUME] IN BLOOD 0.04 10*3/uL 0.00 - 0.06 04/07 Specimen Type: BLOOD No comment entered. Ordering Provider: JAMILA BARRON Report Released Date/Time: Apr 04, 2024 05:53 PM Reporting Lab: [facility] [place] [address] [address] Performing Lab: [place] [facility] [place] [address] [address] [place] [facility] [place] [facility] CBC AND DIFF (AUTO) NRBC % 0.0 0.0 - 0.0 04/07 Specimen Type: BLOOD No comment entered. Ordering Provider: JAMILA BARRON Report Released Date/Time: Apr 04, 2024 05:53 PM Reporting Lab: [place] [facility] [place] [address] [address] Performing Lab: [facility] [place] [facility] [address] [facility] [address] [place] [facility] [place] [facility] CBC AND DIFF (AUTO) NRBC, ABS 0.00 10*3/uL 0.00 - 0.00 04/07 Specimen Type: BLOOD No comment entered. Ordering Provider: JAMILA BARRON Report Released Date/Time: Apr 04, 2024 05:53 PM Reporting Lab: [facility] [place] [facility] [address] [facility] [address] Performing Lab: [place] [facility] [place] [address] [address] [place] [facility] [place] [facility] URINALYS IS CLEAN CATCH COLOR OF URINE Yellow 04/07 Specimen Type: URINE Comment: If Glucose = >500 and Ketones are positive, please alert the Physician. Ordering Provider: JAMILA BARRON Report Released Date/Time: Apr 04, 2024 05:53 PM Reporting Lab: [place] [facility] [place] [address] [address] Performing Lab: [facility] [place] [address] [address] [place] [facility] [place] [facility] URINALYS IS CLEAN CATCH APPEARANCE OF URINE Clear 04/07 Specimen Type: URINE Comment: If Glucose = >500 and Ketones are positive, please alert the Physician. Ordering Provider: JAMILA BARRON Report Released Date/Time: Apr 04, 2024 05:53 PM Reporting Lab: [place] [facility] [place] [address] [address] Performing Lab: [facility] [place] [address] [address] [place] [facility] [place] [facility] URINALYS IS CLEAN CATCH GLUCOSE [MASS/VOLU ME] IN URINE Normalmg /dL 04/07 Specimen Type: URINE Comment: If Glucose = >500 and Ketones are positive, please alert the Physician. Ordering Provider: JAMLIA BARRON Report Released Date/Time: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 OFF/OP CNSLTJ NEW/EST MOD 40 [id number] Diagnos is: ICD-10- CM H90.A31 Mix cndct/s nrl hear loss,un i,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 RICO BARRON RD 04/13 [facility] En[facility] [id number] 1.04/14 [facility] Encounter [id number]/17 [facility] En[facility] [id number] 1.04/23 [facility] Encounter [id number] 1.04/24 [facility] OFFICE O/P EST MOD 30 MIN [id number] Diagnos is: ICD-10- CM 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 RANCHO RODRIGUEZ 04/28 [facility] CONFORMITY EVALUATION [id number] Diagnos is: ICD-10- CM Z46.1 Encount er for fitting and adjustm ent of hearing aid Yossi HARRINGTON 05/05 [facility] Encounter [id number] 05/08 [facility] En[facility] [id number] 05/27 [facility] En[facility] [id number] 06/01 [facility] Encounter [id number] 06/03 [facility] [id number] 06/06 [facility] Encounter [id number]/15 [facility] Encounter [id number]/16 [facility] Encounter [id number]/19 [facility] Encounter [id number] 06/25 [facility] Encounter [id number] 06/25 [facility] Encounter [id number] 06/26 [facility] Encounter [id number] 07/02 [facility] Encounter [id number] 07/06 [facility] En[facility] [id number] 07/14 [facility] Encounter [id number] 07/14 [facility] Encounter [id number] 07/14 [facility] Encounter [id number] 07/16 [facility] En[facility] [id number] 07/20 [facility] En[facility] [id number] 08/06 [facility] Encounter [id number]/17 [facility] Encounter [id number] 08/24 [facility] Encounter [id number] 08/27 [facility] OFFICE O/P EST MOD 30 MIN [id number] Diagnos is: ICD-10- CM 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, hole, or pseudoh ole, right eye CALDERON,LACE Y J 09/01 [facility] En[facility] [id number] 09/02 [facility] Encounter [id number] 09/22 [facility] Encounter [id number] 09/23 [facility] Encounter [id number] 09/24 [facility] Encounter [id number] 09/25 [facility] Encounter [id number] 09/26 [facility] Encounter [id number] 09/28 [facility] Encounter [id number] 09/28 [facility] Encounter [id number] 09/30 [facility] Encounter [id number] 10/04 [facility] Encounter [id number] 10/05 [facility] [id number] 10/11 [facility] Outpatient [facility]counter [id number] 10/15 [facility] Outpatient Encounter [id number] 10/15 [facility] Social History Combined list of available smoking, tobacco, and other social history from Department of Defense and Veterans Affairs facilities. Social History Type Response Date Comment [facility] e Tobacco smoking status NHIS VA-TOBACCO FORMER USER [facility] History of tobacco use [place]-TOBACCO QUIT 15 YRS OR MORE 10/16/2023 [facility] History of tobacco use RI-TOBACCO FORMER USER 07/04/2022 [facility] History of tobacco use NSG NO TOBACCO USE PAST 30 DAYS 03/27/2022 [place] History of tobacco use NSG NO TOBACCO USE PAST 30 DAYS 03/05/2022 [place] History of tobacco use NSG NO TOBACCO USE PAST 30 DAYS 03/02/2022 [place] History of tobacco use RI-TOBACCO QUIT 15 YRS OR MORE 06/28/2021 [facility] History of tobacco use [place]-TOBACCO FORMER USER 05/26/2020 [facility] History of tobacco use RI-TOBACCO NEVER USED 05/23/2018 [facility] Plan of Care List of future care activities from [facility] facilities. Additional future care activities may be listed in the Assessment and Plan section. Date/Time Care Activity Care Activity Detail Facili ty 11/11/2024 AMBULATORY - MEDICINE AMBULATORY - MEDICI [facility] Advance Directives List of completed, amended, or rescinded Advance Directives on record at [facility] facilities. An actual copy of the Directive is not included. Date Advance Directive Provider Source 02/19/2022 ADVANCE DIRECTIVE JOCE CASTORENA [facility] 11/16/2020 ADVANCE DIRECTIVE BYRON BARRON [facility]
--- OUTSIDE RECORDS SUMMARY | 2024-10-30 13:23 | XMS_ITS | Encounter Summary ---
Author Organization [facility] Address [address] [place] [address] Care Team Providers Care Wire Stitcher Operator Name Role Phone Adam Noonan MD Primary Care Provider Unava ilable Encounter Details Date Type Department Care Team Description 11/21/2017 Release of Information Medical Records [address] [place] [id number] Abstract, Provider Social History Tobacco Use Types [...] on filedocumented in this encounter Care Teams Wire Stitcher Operator Relationship Specialty Start Date End Date Adam Noonan MD PCP - General Internal Medicine 11/19/17 documented as of this encounter
[2024-10-30 13:37] LABS: Alanine Aminotransferase 18 U/L (0-40); Albumin Level 3.5 g/dL (3.5-5.0); Anion Gap 13 (12-20); Aspartate Amino Transferase 37 U/L (5-37); Bilirubin Total 0.7 mg/dL (0.0-1.0); Blood Urea Nitrogen 17 mg/dL (9-16); Calcium 9.2 mg/dL (8.4-10.2); Carbon Dioxide 23 mmol/L (22-29); Chloride 107 mmol/L (96-108); Creatinine Clr Calc Pharmacy 72.1; Estimated Glomerular Filt Rate > 60; Glucose Random 91 mg/dL (60-115); Magnesium 1.9 mg/dL (1.6-2.6); Potassium 4.1 mmol/L (3.3-5.1); Sodium 139 mmol/L (135-145); Total Protein 7.1 g/dL (6.5-8.0)
[2024-10-30 16:10] VITALS: BP 142/58; PULSE 74; RESP 14; TEMP 36.5; O2SAT 95
[2024-10-30] MEDS: levoFLOXacin 750 MG TABLET PO (16:11)
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
[2024-10-30] MEDS: DAPTOmycin 700 MG in 0.9 % Sodium Chloride 50 ML 107.92 MG IV (17:39)
--- NOTE | 2024-10-30 18:21 | PHA.MEDREC ---
Addendum entered by Brandon Escobedo 10/30/24 18:27: Reviewed. It looks like prescribed dapto dose was 317mg but was filled as 500mg vials. Was prescribed here before med rec finished, discussed dosing with provider and increased to 700mg (~10mg/kg adjusted BW) due to previous S. aureus blood culture. Original Note: Pharmacy Consult ? Medication Reconciliation Pharmacy has completed the medication reconciliation. Spoke to patient to confirm med list. patient states he is no longer taking Docycyline hycalate 100 mg, Docusate sod 100mg, and HCTZ 25 mg (stopped because BP has been good). Patient confirmed he started taking Atorvastatin 80 mg again after surgery. patient confirmed he is still on Daptomycin 500 mg daily.
--- NOTE | 2024-10-30 18:30 | PC.NURSE ---
PATIENT PICC LINE REMOVED BY ED PROVIDER. PATIENT TOLERATED WELL, SITE COVERED WITH 2X2, DRESSING REMAINS DRY AND INTACT. TIP OF CATHETER SENT TO LAB FOR SAMPLE
[2024-10-30 18:40] LABS: Alkaline Phosphatase 133 U/L (39-117)
[2024-10-30 18:59] VITALS: BP 142/57; PULSE 82; RESP 16; TEMP 36.6; O2SAT 97
--- NOTE | 2024-10-30 19:04 | PC.NURSE ---
Patient is alert and oriented x4, VSS. Patient denies any pain/discomfort at present. Patient is ambulatory with a walking boot to left foot and uses acane for short distances/walker for longer distances. Patient currently offers no complaints, call perry in place, plan of care ongoing.
[2024-10-30 20:36] VITALS: BMI 28.3
[2024-10-30 20:47] VITALS: PULSE 85; RESP 18; TEMP 36; O2SAT 95
[2024-10-30 20:54] VITALS: BP 178/76
--- NOTE | 2024-10-30 20:57 | PC.NURSE ---
Patient arrived from ED with IV catheter pulled out from insertion site covered with dressing. Noted large hematoma to left hand as a result of that.
--- NOTE | 2024-10-30 21:48 | HO.SKINPHOTO ---
Location: left ankle Category: surgical Stage: Length: Width: Depth: cm Location: Category: Stage: Length: Width: Depth: cm Location: Category: Stage: Length: Width: Depth: cm Location: Category: Stage: Length: Width: Depth: cm Location: Category: Stage: Length: Width: Depth: cm Location: Category: Stage: Length: Width: Depth: cm
--- NOTE | 2024-10-30 21:49 | HO.SKINPHOTO ---
Location: R upper arm Category: Cellulitis from infected line Stage: Length: Width: Depth: cm Location: Category: Stage: Length: Width: Depth: cm Location: Category: Stage: Length: Width: Depth: cm Location: Category: Stage: Length: Width: Depth: cm Location: Category: Stage: Length: Width: Depth: cm Location: Category: Stage: Length: Width: Depth: cm
[2024-10-31 03:45] VITALS: BP 147/80; PULSE 83; RESP 16; TEMP 36.1; O2SAT 95
[2024-10-31 07:19] VITALS: BP 185/77; PULSE 82; RESP 18; TEMP 36.5; O2SAT 93
[2024-10-31] MEDS: amLODIPine Besylate 5 MG TABLET PO (08:36)
[2024-10-31] MEDS: Atorvastatin Calcium 80 MG TABLET PO (08:36)
[2024-10-31] MEDS: 0.9 % Sodium Chloride Flush 3 ML SYRINGE IVFLUSH ×3 (08:37→20:02)
[2024-10-31] MEDS: Ezetimibe 10 MG TABLET PO (08:37)
[2024-10-31] MEDS: Aspirin Enteric Coated 81 MG TABLET.DR PO (08:37)
[2024-10-31] MEDS: Metoprolol Succinate ER 50 MG TAB.ER.24H PO (08:37)
--- NOTE | 2024-10-31 09:40 | MHC.CM.PN ---
Patient lives in a home alone. Ambulates w/ cane and walking boot. Uses walker PRN. [facility]. Services include: [employer] PHYSICAL EDUCATOR 10hrs/wk through [facility], [facility] for SN, [facility] for IV dapto (end date 11/06). PCP Josue Simmons MD Reports his daughter, Flory, is HCP. Copy requested. DP: Await ID consult for abx plan. Goal is home, resume services. Daughter to transport. CM will continue to follow.
--- NOTE | 2024-10-31 11:10 | HO.PM.IMPN ---
Subjective Subjective Date of Service: 10/31/24 Interval History: Arm infection Review of Systems arm erythema seems similar no fevers Review of Systems: Yes all other systems are reviewed and are negative Physical Exam Vital Signs: Vital Signs: Last Vital Signs Temp 97.7 F 10/31/24 07:19 Pulse 82 10/31/24 07:19 Resp 18 10/31/24 07:19 BP 185/77 H 10/31/24 07:19 Pulse Ox 93 10/31/24 07:19 O2 Del Method Room Air 10/31/24 07:19 BMI result Body Mass Index 28.3 Appearance: Alert.? Oriented X3.? cvs: [id number], [id number] . res: clear to auscultation, no rales or wheezing abd: no rebound or guarding ,nt, bs present. ext pulses present , no cyanosis . arm: Erythema seems similar neuro:nonfocal. Objective Data Active Medications Acetaminophen (Acetaminophen 325 Mg Tablet) 650 mg PO Q6H PRN PRN Reason: Pain, Mild 1-3,fever,headache Amlodipine Besylate (Amlodipine Besylate 5 Mg Tablet) 5 mg PO DAILY [facility]; Protocol Last Admin: 10/31/24 08:36 Dose: 5 mg Documented By: NOMI Aspirin (Aspirin Enteric Coated 81 Mg Tablet.) 81 mg PO DAILY [facility] Last Admin: 10/31/24 08:37 Dose: 81 mg Documented By: NOMI Atorvastatin Calcium (Atorvastatin Calcium 80 Mg Tablet) 80 mg PO DAILY [facility] Last Admin: 10/31/24 08:36 Dose: 80 mg Documented By: NOMI Calcium Carbonate (Calcium Carbonate 750 Mg Tab.Chew) 750 mg PO Q4H PRN PRN Reason: Heartburn Ezetimibe (Ezetimibe 10 Mg Tablet) 10 mg PO DAILY [facility] Last Admin: 10/31/24 08:37 Dose: 10 mg Documented By: NOMI Enoxaparin Sodium (Enoxaparin Sodium 40 Mg/0.4 Ml Syringe) 40 mg SUBCUT Q24H [facility] Last Admin: 10/30/24 17:40 Dose: Not Given Documented By: YONNY Non-Admin Reason: See Note Daptomycin 700 mg/ Sodium (Chloride) 64 mls @ 100 mls/hr IV DAILY [facility] Levofloxacin (Levofloxacin 750 Mg Tablet) 750 mg PO Q24H [facility] Magnesium Hydroxide (Milk Of Magnesia 30 Ml Oral.Susp) 30 ml PO DAILY PRN PRN Reason: Constipation Melatonin (Melatonin 3 Mg Tablet) 6 mg PO BEDTIME PRN PRN Reason: Insomnia Metoprolol Succinate (Metoprolol Succinate Er 50 Mg Tab.Er.24h) 50 mg PO DAILY [facility]; Protocol Last Admin: 10/31/24 08:37 Dose: 50 mg Documented By: NOMI Sodium Chloride (0.9 % Sodium Chloride Flush 3 Ml Syringe) 3 ml IVFLUSH QSHIFT [facility] Last Admin: 10/31/24 08:37 Dose: 3 ml Documented By: NOMI Labs 10/30/24 12:54 10/30/24 12:54 Labs: Laboratory Results - last 24 hr 10/30/24 12:54 MCV 96.0 MCH 31.9 MCHC 33.2 RDW 13.8 Plt Count 231 MPV 9.4 Immature Gran % (Auto) 0.6 H Neut % (Auto) 59.0 Lymph % (Auto) 23.4 [place] % (Auto) 10.5 Eos % (Auto) 5.7 H Baso % (Auto) 0.8 Lymph # (Auto) 2.2 [place] # (Auto) 1.0 Eos # (Auto) 0.5 H Baso # (Auto) 0.1 Abs Immat Gran (auto) 0.06 H Absolute Neuts (auto) 5.6 Absolute Nucleated RBC 0.000 Nucleated RBC % (auto) 0.0 Anion Gap 13 Estim Creat Clear Calc 72.1 Estimated GFR > 60 Random Glucose 91 Lactic Acid 2.0 Calcium 9.2 Magnesium 1.9 Total Bilirubin 0.7 AST 37 ALT 18 Alkaline Phosphatase 133 H Total Protein 7.1 Albumin 3.5 Microbiology Microbiology Results: Microbiology 10/30/24 15:56 Catheter Tip Culture - Preliminary Catheter Tip - Other Gram negative farhana Assessment and Plan (1) PICC line infection: Status: Acute Plan 84-year-old male with a PMH significant for?COPD, aortic stenosis s/p TAVR, CAD s/p stenting in 2021, HTN, and septic arthritis who presents to the ED for concerns over right upper arm infection at PICC line insertion site. Pt admitted to the hospital for treatment and further evaluation of right upper extremity cellulitis secondary to PICC line. Right upper extremity cellulitis continue erythema, warmth, and foul-smelling at site of PICC line insertion x2-3 days No sepsis: Pt afebrile, no tachycardia, tachypnea, or leukocytosis plan: continue daptomycin IV for infected left ankle hardware via PICC line x5 weeks, course of abx set to end on 11/06/2024 Continue daptomycin and Levaquin ID consult Follow blood and catheter tip cultures CAD Continue aspirin, statin, ezetimibe HTN Continue amlodipine, hydrochlorothiazide, metoprolol Full Code DVT Prophylaxis: Lovenox ongoing need : PICC line and still needs to continue IV daptomycin, pt will require a hospitalization of at least two nights for treatment of?right upper extremity cellulitis and left ankle hardware infection with IV antibiotics and specialist consultation with Infectious Disease. Quality Stroke Does the patient have a stroke diagnosis?: No VTE Prior VTE?: No VTE Risk Level:: Medical - moderate - high VTE Device Contraindication: Treatment Not Indicated VTE Drug Contraindication: N/A - Med Ordered
[2024-10-31 12:05] VITALS: BP 144/67; PULSE 76; RESP 18; O2SAT 92
[2024-10-31 15:19] VITALS: BP 145/65; PULSE 84; RESP 16; TEMP 36.2; O2SAT 97
[2024-10-31] MEDS: levoFLOXacin 750 MG TABLET PO (16:47)
[2024-10-31] MEDS: Enoxaparin Sodium 40 MG/0.4 ML SYRINGE SUBCUT (16:47)
[2024-10-31] MEDS: DAPTOmycin 700 MG in 0.9 % Sodium Chloride 50 ML 100 MG IV (17:41)
[2024-10-31 19:34] VITALS: BP 147/65; PULSE 78; RESP 18; TEMP 36.4; O2SAT 95
[2024-11-01 03:20] VITALS: BP 136/58; PULSE 85; RESP 18; TEMP 36.2; O2SAT 94
[2024-11-01 07:36] VITALS: BP 134/61; PULSE 81; RESP 18; TEMP 36.6; O2SAT 92
[2024-11-01] MEDS: amLODIPine Besylate 2.5 MG TABLET 7.5 MG PO (08:17)
[2024-11-01] MEDS: Metoprolol Succinate ER 50 MG TAB.ER.24H PO (08:17)
[2024-11-01] MEDS: Aspirin Enteric Coated 81 MG TABLET.DR PO (08:18)
[2024-11-01] MEDS: Ezetimibe 10 MG TABLET PO (08:18)
[2024-11-01] MEDS: Atorvastatin Calcium 80 MG TABLET PO (08:18)
[2024-11-01] MEDS: 0.9 % Sodium Chloride Flush 3 ML SYRINGE IVFLUSH ×3 (08:18→20:31)
--- NOTE | 2024-11-01 10:47 | HO.PM.IMPN ---
Subjective Subjective Date of Service: 11/01/24 Interval History: Arm infection Review of Systems arm erythema seems similar no fevers Review of Systems: Yes all other systems are reviewed and are negative Physical Exam Vital Signs: Vital Signs: Last Vital Signs Temp 97.8 F 11/01/24 07:36 Pulse 81 11/01/24 07:36 Resp 18 11/01/24 07:36 BP 134/61 11/01/24 07:36 Pulse Ox 92 11/01/24 07:36 O2 Del Method Room Air 11/01/24 07:36 BMI result Body Mass Index 28.3 Appearance: Alert.? Oriented X3.? cvs: [id number], [id number] . res: clear to auscultation, no rales or wheezing abd: no rebound or guarding ,nt, bs present. ext pulses present , no cyanosis . arm: Erythema seems similar neuro:nonfocal. Objective Data Active Medications Acetaminophen (Acetaminophen 325 Mg Tablet) 650 mg PO Q6H PRN PRN Reason: Pain, Mild 1-3,fever,headache Amlodipine Besylate (Amlodipine Besylate 2.5 Mg Tablet) 7.5 mg PO DAILY [facility]; Protocol Last Admin: 11/01/24 08:17 Dose: 7.5 mg Documented By: NOMI Aspirin (Aspirin Enteric Coated 81 Mg Tablet.Dr) 81 mg PO DAILY [facility] Last Admin: 11/01/24 08:18 Dose: 81 mg Documented By: NOMI Atorvastatin Calcium (Atorvastatin Calcium 80 Mg Tablet) 80 mg PO DAILY [facility] Last Admin: 11/01/24 08:18 Dose: 80 mg Documented By: NOMI Calcium Carbonate (Calcium Carbonate 750 Mg Tab.Chew) 750 mg PO Q4H PRN PRN Reason: Heartburn Ezetimibe (Ezetimibe 10 Mg Tablet) 10 mg PO DAILY [facility] Last Admin: 11/01/24 08:18 Dose: 10 mg Documented By: NOMI Enoxaparin Sodium (Enoxaparin Sodium 40 Mg/0.4 Ml Syringe) 40 mg SUBCUT Q24H [facility] Last Admin: 10/31/24 16:47 Dose: 40 mg Documented By: NOMI Daptomycin 700 mg/ Sodium (Chloride) 64 mls @ 100 mls/hr IV Q24H [facility] Levofloxacin (Levofloxacin 750 Mg Tablet) 750 mg PO Q24H [facility] Last Admin: 10/31/24 16:47 Dose: 750 mg Documented By: NOMI Magnesium Hydroxide (Milk Of Magnesia 30 Ml Oral.Susp) 30 ml PO DAILY PRN PRN Reason: Constipation Melatonin (Melatonin 3 Mg Tablet) 6 mg PO BEDTIME PRN PRN Reason: Insomnia Metoprolol Succinate (Metoprolol Succinate Er 50 Mg Tab.Er.24h) 50 mg PO DAILY [facility]; Protocol Last Admin: 11/01/24 08:17 Dose: 50 mg Documented By: NOMI Sodium Chloride (0.9 % Sodium Chloride Flush 3 Ml Syringe) 3 ml IVFLUSH QSHIFT [facility] Last Admin: 11/01/24 08:18 Dose: 3 ml Documented By: NOMI Labs 10/30/24 12:54 10/30/24 12:54 Microbiology Microbiology Results: Microbiology 10/30/24 15:56 Catheter Tip Culture - Final Catheter Tip - Other Proteus mirabilis 10/30/24 12:50 Blood Culture - Preliminary Blood - Venous No growth after 24 hours. 10/30/24 12:50 Blood Culture - Preliminary Blood - Central Line No growth after 24 hours. Assessment and Plan (1) PICC line infection: Status: Acute Plan 84-year-old male with a PMH significant for?COPD, aortic stenosis s/p TAVR, CAD s/p stenting in 2021, HTN, and septic arthritis who presents to the ED for concerns over right upper arm infection at PICC line insertion site. Pt admitted to the hospital for treatment and further evaluation of right upper extremity cellulitis secondary to PICC line. Right upper extremity cellulitis continue erythema, warmth, and foul-smelling at site of PICC line insertion x2-3 days No sepsis: Pt afebrile, no tachycardia, tachypnea, or leukocytosis plan: blood culture prelimary neg@24hrs and catheter tip cultures-proteus mirabilis ( senstive to caftriaxone /cipro) continue daptomycin IV for infected left ankle hardware via PICC line x5 weeks, course of abx set to end on 11/06/2024 Continue daptomycin and Levaquin ID consult CAD Continue aspirin, statin, ezetimibe HTN Continue amlodipine, hydrochlorothiazide, metoprolol Full Code DVT Prophylaxis: Lovenox ongoing need : PICC line infection and still needs to continue IV daptomycin, treatment of?right upper extremity cellulitis and left ankle hardware infection with IV antibiotics and specialist consultation with Infectious Disease. Quality Stroke Does the patient have a stroke diagnosis?: No VTE Prior VTE?: No VTE Risk Level:: Medical - moderate - high VTE Device Contraindication: Treatment Not Indicated VTE Drug Contraindication: N/A - Med Ordered
[2024-11-01 16:10] VITALS: BP 139/67; PULSE 82; RESP 12; TEMP 37; O2SAT 98
[2024-11-01] MEDS: DAPTOmycin 700 MG in 0.9 % Sodium Chloride 50 ML 100 MG IV (17:20)
[2024-11-01] MEDS: Enoxaparin Sodium 40 MG/0.4 ML SYRINGE SUBCUT (17:20)
[2024-11-01] MEDS: levoFLOXacin 750 MG TABLET PO (17:20)
[2024-11-01 19:07] VITALS: BP 174/72; PULSE 90; RESP 17; TEMP 36.7; O2SAT 95
[2024-11-02 03:20] VITALS: BP 146/65; PULSE 86; RESP 18; TEMP 36.7; O2SAT 98
[2024-11-02 07:03] VITALS: BP 137/68; PULSE 89; RESP 16; TEMP 36; O2SAT 93
[2024-11-02] MEDS: Aspirin Enteric Coated 81 MG TABLET.DR PO (07:58)
[2024-11-02] MEDS: amLODIPine Besylate 2.5 MG TABLET 7.5 MG PO (07:58)
[2024-11-02] MEDS: Atorvastatin Calcium 80 MG TABLET PO (07:59)
[2024-11-02] MEDS: Metoprolol Succinate ER 50 MG TAB.ER.24H PO (07:59)
[2024-11-02] MEDS: Ezetimibe 10 MG TABLET PO (07:59)
[2024-11-02] MEDS: 0.9 % Sodium Chloride Flush 3 ML SYRINGE IVFLUSH ×3 (08:02→19:32)
--- NOTE | 2024-11-02 08:59 | HO.PM.IMPN ---
Subjective Subjective Date of Service: 11/02/24 Interval History: f/u on picc line infection and cellulitis Physical Exam Vital Signs: Vital Signs: Last Vital Signs Temp 96.8 F 11/02/24 07:03 Pulse 89 11/02/24 07:03 Resp 16 11/02/24 07:03 BP 137/68 11/02/24 07:03 Pulse Ox 93 11/02/24 07:03 O2 Del Method Room Air 11/02/24 07:03 BMI result Body Mass Index 28.3 Appearance: Alert.? Oriented X3.? cvs: rrr, [id number] . res: clear to auscultation, no rales or wheezing abd: no rebound or guarding ,nt, bs present. ext pulses present , no cyanosis . arm: Erythema seems similar neuro:nonfocal. Objective Data Active Medications Acetaminophen (Acetaminophen 325 Mg Tablet) 650 mg PO Q6H PRN PRN Reason: Pain, Mild 1-3,fever,headache Amlodipine Besylate (Amlodipine Besylate 2.5 Mg Tablet) 7.5 mg PO DAILY [facility]; Protocol Last Admin: 11/02/24 07:58 Dose: 7.5 mg Documented By: MARCUS Aspirin (Aspirin Enteric Coated 81 Mg Tablet.) 81 mg PO DAILY [facility] Last Admin: 11/02/24 07:58 Dose: 81 mg Documented By: MARCUS Atorvastatin Calcium (Atorvastatin Calcium 80 Mg Tablet) 80 mg PO DAILY [facility] Last Admin: 11/02/24 07:59 Dose: 80 mg Documented By: MARCUS Calcium Carbonate (Calcium Carbonate 750 Mg Tab.Chew) 750 mg PO Q4H PRN PRN Reason: Heartburn Ezetimibe (Ezetimibe 10 Mg Tablet) 10 mg PO DAILY [facility] Last Admin: 11/02/24 07:59 Dose: 10 mg Documented By: MARCUS Enoxaparin Sodium (Enoxaparin Sodium 40 Mg/0.4 Ml Syringe) 40 mg SUBCUT Q24H [facility] Last Admin: 11/01/24 17:20 Dose: 40 mg Documented By: COLTEN Daptomycin 700 mg/ Sodium (Chloride) 64 mls @ 100 mls/hr IV Q24H [facility] Last Infusion: 11/01/24 18:16 Dose: Infused Documented By: COLTEN Levofloxacin (Levofloxacin 750 Mg Tablet) 750 mg PO Q24H [facility] Last Admin: 11/01/24 17:20 Dose: 750 mg Documented By: COLTEN Magnesium Hydroxide (Milk Of Magnesia 30 Ml Oral.Susp) 30 ml PO DAILY PRN PRN Reason: Constipation Melatonin (Melatonin 3 Mg Tablet) 6 mg PO BEDTIME PRN PRN Reason: Insomnia Metoprolol Succinate (Metoprolol Succinate Er 50 Mg Tab.Er.24h) 50 mg PO DAILY [facility]; Protocol Last Admin: 11/02/24 07:59 Dose: 50 mg Documented By: MARCUS Sodium Chloride (0.9 % Sodium Chloride Flush 3 Ml Syringe) 3 ml IVFLUSH QSHIFT [facility] Last Admin: 11/02/24 08:02 Dose: 3 ml Documented By: MARCUS Labs 10/30/24 12:54 10/30/24 12:54 Microbiology Microbiology Results: Microbiology 10/30/24 12:50 Blood Culture - Preliminary Blood - Venous No growth after 48 hours. 10/30/24 12:50 Blood Culture - Preliminary Blood - Central Line No growth after 48 hours. 10/30/24 15:56 Catheter Tip Culture - Final Catheter Tip - Other Proteus mirabilis Assessment and Plan (1) PICC line infection: Status: Acute Plan 84-year-old male with a PMH significant for?COPD, aortic stenosis s/p TAVR, CAD s/p stenting in 2021, HTN, and and septic arthritis of Left ankle hardware from september and has been on IV Daptomycin via PICC for staph bacteremia set to end on 11/06. He presented with cellulitis at the Picc line site and tip of picc line growing proteus M., however blood cultures negative. Right upper extremity cellulitis, infected PICC line with proteus, erythema and swelling improving per pt. PICC line removed continue Dapto for Staph bacteremia, ending 11/06 continue Levaquin for proteus and infected PIC line. ID for additional input, I don't think PICC line need to be replacced. CAD Continue aspirin, statin, ezetimibe HTN Continue amlodipine, hydrochlorothiazide, metoprolol Full Code DVT Prophylaxis: Lovenox ongoing need : PICC line infection and still needs to continue IV daptomycin, treatment of?right upper extremity cellulitis and left ankle hardware infection with IV antibiotics and specialist consultation with Infectious Disease. Quality Stroke Does the patient have a stroke diagnosis?: No VTE Prior VTE?: No VTE Risk Level:: Medical - moderate - high VTE Device Contraindication: Treatment Not Indicated VTE Drug Contraindication: N/A - Med Ordered
[2024-11-02 16:00] VITALS: BP 128/60; PULSE 87; RESP 12; TEMP 36.1; O2SAT 94
[2024-11-02] MEDS: Enoxaparin Sodium 40 MG/0.4 ML SYRINGE SUBCUT (16:44)
[2024-11-02] MEDS: levoFLOXacin 750 MG TABLET PO (16:44)
[2024-11-02] MEDS: DAPTOmycin 700 MG in 0.9 % Sodium Chloride 50 ML 100 MG IV (17:32)
[2024-11-02 19:29] VITALS: BP 146/58; PULSE 89; RESP 17; TEMP 36.5; O2SAT 92
[2024-11-03 03:33] VITALS: BP 166/72; PULSE 93; RESP 18; TEMP 36.1; O2SAT 97
[2024-11-03 07:40] VITALS: BP 131/71; PULSE 88; RESP 16; TEMP 36.6; O2SAT 91
[2024-11-03] MEDS: Ezetimibe 10 MG TABLET PO (09:12)
[2024-11-03] MEDS: amLODIPine Besylate 2.5 MG TABLET 7.5 MG PO (09:12)
[2024-11-03] MEDS: Aspirin Enteric Coated 81 MG TABLET.DR PO (09:12)
[2024-11-03] MEDS: Atorvastatin Calcium 80 MG TABLET PO (09:12)
[2024-11-03] MEDS: Metoprolol Succinate ER 50 MG TAB.ER.24H PO (09:12)
--- NOTE | 2024-11-03 12:46 | HO.WOUND ---
Wound Consult: Initial 84yr old? male admitted to [facility] on10/30/24 - See progress notes and H&P for detailed history.? Wound consult placed for Left Ankle and Right Arm.? Patient agreeable to assessment and photo documentation.? Patient reports the arm has no pain and recently had the PICC line removed. The skin is swollen pink and dry flaking. He reports itching but no open wound noted - will TT Provider to consider topical steroid. He reports he uses topical steroid for the arms and back for baseline skin itching. Back assessed - no skin injury or irregularities notes. The Left ankle is noted for a stable incision with a small scab noted and an in tact Steris Strip. No erythema noted no s/s of infection noted. No topical recommendations needed at this time. Patient reports he has follow up with Dr. Chirinos on November 16 - recommend he keep follow up appt. Bilateral plantar feet were noted for fungal dermatitis. Patient reports he will not use topical antifungal cream or ointment he reports he uses diluted bleach bath soaks to treat the fungal. 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 Of note toe nails on both feet appear to be thickened yellow and brittle s/s of chronic fungal invasion. No topical recommendations needed at this time as patient will prefer to treat at home with diluted bleach bath which is a known topical treatment. ? Re-consult wound care Nurse for wound deterioration or wound changes. Rt Arm Left Ankle Bilateral Feet
--- NOTE | 2024-11-03 14:48 | P.CNID_ITS ---
History of Present Illness Data of Consult Service Date: 11/03/24 Requesting physician: Pradeep Francis Primary Care Provider: Josue Simmons MD HPI Reason for consult: right arm infection He presents with right arm redness and PICC line feeling loose after showering with no cover over line. Line was removed and tip cultured,proteus mirabilis found. He had no fever or chills and blood culture negative. Review of Systems 2 Review of Systems: Yes all other systems are reviewed and are negative [facility] Past Medical History Medical History Ankle fracture, lateral malleolus, closed Hyperlipidemia HTN (hypertension) CAD (coronary artery disease) Murmur, cardiac Chest pain COPD (chronic obstructive pulmonary disease) Asbestosis Family History Family History Father CAD (coronary artery disease) Mother No problems noted. Family history: reviewed and not pertinent Surgical History Surgical History S/P TAVR (transcatheter aortic valve replacement) Stented coronary artery Hx of cardiac catheterization Social History Social History Household Members: None Housing: House Are you a primary respiratory care specialist to a significant other at home: No Do you presently have visiting nurse or other home services: Yes Comment: pt refusing bed alarm; ongoing Patient Tobacco Use Status: Former Tobacco user Tobacco use type: Cigarette and Cigar Years Smoked: 14 years old e-Cigarette/Vaping Use: Former Use Second Hand Smoke Exposure: No service: No Meds Allergies Allergy/AdvReac Type Severity Reaction Status Date / Time niacin Allergy Severe Upset Verified 10/30/24 12:37 Stomach procaine [From Novocain] Allergy Severe I GET Verified 10/30/24 12:37 MEAN simvastatin AdvReac Severe myopathy Verified 10/30/24 12:37 Active Medications: Current Medications Acetaminophen (Acetaminophen 325 Mg Tablet) 650 mg PO Q6H PRN PRN Reason: Pain, Mild 1-3,fever,headache Amlodipine Besylate (Amlodipine Besylate 2.5 Mg Tablet) 7.5 mg PO DAILY [facility]; Protocol Last Admin: 11/03/24 09:12 Dose: 7.5 mg Aspirin (Aspirin Enteric Coated 81 Mg Tablet.Dr) 81 mg PO DAILY [facility] Last Admin: 11/03/24 09:12 Dose: 81 mg Atorvastatin Calcium (Atorvastatin Calcium 80 Mg Tablet) 80 mg PO DAILY [facility] Last Admin: 11/03/24 09:12 Dose: 80 mg Calcium Carbonate (Calcium Carbonate 750 Mg Tab.Chew) 750 mg PO Q4H PRN PRN Reason: Heartburn Ezetimibe (Ezetimibe 10 Mg Tablet) 10 mg PO DAILY [facility] Last Admin: 11/03/24 09:12 Dose: 10 mg Enoxaparin Sodium (Enoxaparin Sodium 40 Mg/0.4 Ml Syringe) 40 mg SUBCUT Q24H [facility] Last Admin: 11/02/24 16:44 Dose: 40 mg Daptomycin 700 mg/ Sodium (Chloride) 64 mls @ 100 mls/hr IV Q24H [facility] Last Infusion: 11/02/24 18:36 Dose: Infused Levofloxacin (Levofloxacin 750 Mg Tablet) 750 mg PO Q24H [facility] Last Admin: 11/02/24 16:44 Dose: 750 mg Magnesium Hydroxide (Milk Of Magnesia 30 Ml Oral.Susp) 30 ml PO DAILY PRN PRN Reason: Constipation Melatonin (Melatonin 3 Mg Tablet) 6 mg PO BEDTIME PRN PRN Reason: Insomnia Metoprolol Succinate (Metoprolol Succinate Er 50 Mg Tab.Er.24h) 50 mg PO DAILY [facility]; Protocol Last Admin: 11/03/24 09:12 Dose: 50 mg Sodium Chloride (0.9 % Sodium Chloride Flush 3 Ml Syringe) 3 ml IVFLUSH QSHIFT [facility] Last Admin: 11/03/24 09:15 Dose: Not Given Home Medications ?Medication ?Instructions ?Recorded ?Confirmed ?Last Taken ?Type acetaminophen 325 mg tablet 650 mg PO Q6H PRN pain 09/22/24 10/30/24 Unknown History atorvastatin 80 mg tablet 80 mg PO DAILY 09/22/24 10/30/24 09/21/24 History Physical Exam 2 Vital Signs: Vital Signs: Last Vital Signs Temp 97.8 F 11/03/24 07:40 Pulse 88 11/03/24 07:40 Resp 16 11/03/24 07:40 BP 131/71 11/03/24 07:40 Pulse Ox 91 L 11/03/24 07:40 O2 Del Method Room Air 11/03/24 07:40 BMI result Body Mass Index 28.3 Const: General: cooperative HEENT: Head: Yes normal to inspection Face and sinus: Yes normal facial exam Mouth: Normal oral and palatal mucosa present Teeth and gingiva: d entition normal Eyes: General: appearance normal, both eyes and all related structures P upils: Equal, round and reactive pupils present Resp: Effort & Inspection: normal respiratory effort Cardio: Rate: regular rate Rhythm: regular rhythm GI: Palpation (GI): Soft to palpation and nontender : General: Yes no CVA tenderness Back/Spine/Pelvis: Back: no CVA tenderness Skin: General skin exam: no rashes or lesions noted Neuro: General: moves all extremities Cranial nerves: Yes Equal, round and reactive pupils present Extrem: Other: resolving RUE erythema General: Yes normal to inspection Psych: Appearance: grossly normal Results Labs 10/30/24 12:54 10/30/24 12:54 Microbiology Microbiology Results: Microbiology 10/30/24 12:50 Blood - Venous Blood Culture - Preliminary No growth after 48 hours. 10/30/24 12:50 Blood - Central Line Blood Culture - Preliminary No growth after 48 hours. 10/30/24 15:56 Catheter Tip - Other Catheter Tip Culture - Final Proteus mirabilis Assessment and Plan (1) 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: Status: Acute (2) PICC line infection: Status: Acute Plan two weeks po cephalosporin for proteus ,no bacteremia New line and stop Daptomycin on 11/06. Po Doxycycline for a month after,ankle unremarkable. See outpatient.
[2024-11-03 15:24] VITALS: BP 132/60; PULSE 82; RESP 16; TEMP 36.3; O2SAT 94
[2024-11-03] MEDS: Enoxaparin Sodium 40 MG/0.4 ML SYRINGE SUBCUT (17:00)
[2024-11-03] MEDS: levoFLOXacin 750 MG TABLET PO (17:00)
[2024-11-03] MEDS: DAPTOmycin 700 MG in 0.9 % Sodium Chloride 50 ML 100 MG IV (17:01)
[2024-11-03] MEDS: 0.9 % Sodium Chloride Flush 3 ML SYRINGE IVFLUSH (17:05)
[2024-11-03 19:34] VITALS: BP 142/65; PULSE 89; RESP 16; TEMP 36.3; O2SAT 95
[2024-11-04 03:32] VITALS: BP 129/57; PULSE 90; RESP 16; TEMP 36.4; O2SAT 94
[2024-11-04 07:31] VITALS: BP 120/62; PULSE 88; RESP 16; TEMP 36.4; O2SAT 93
[2024-11-04] MEDS: Ezetimibe 10 MG TABLET PO (07:44)
[2024-11-04] MEDS: Metoprolol Succinate ER 50 MG TAB.ER.24H PO (07:44)
[2024-11-04] MEDS: amLODIPine Besylate 2.5 MG TABLET 7.5 MG PO (07:45)
[2024-11-04] MEDS: Atorvastatin Calcium 80 MG TABLET PO (07:45)
[2024-11-04] MEDS: Aspirin Enteric Coated 81 MG TABLET.DR PO (07:45)
[2024-11-04] MEDS: 0.9 % Sodium Chloride Flush 3 ML SYRINGE IVFLUSH ×2 (07:47→21:17)
--- NOTE | 2024-11-04 09:34 | HO.PM.IMPN ---
Subjective Subjective Date of Service: 11/04/24 Interval History: f/u on picc line infection and cellulitis or right arm Physical Exam Vital Signs: Vital Signs: Last Vital Signs Temp 97.5 F 11/04/24 07:31 Pulse 88 11/04/24 07:31 Resp 16 11/04/24 07:31 BP 120/62 11/04/24 07:31 Pulse Ox 93 11/04/24 07:31 O2 Del Method Room Air 11/04/24 07:31 BMI result Body Mass Index 28.3 Appearance: Alert.? Oriented X3.? cvs: rrr, [id number] . res: clear to auscultation, no rales or wheezing abd: no rebound or guarding ,nt, bs present. ext pulses present , no cyanosis . arm: Erythema seems similar neuro:nonfocal. Objective Data Active Medications Acetaminophen (Acetaminophen 325 Mg Tablet) 650 mg PO Q6H PRN PRN Reason: Pain, Mild 1-3,fever,headache Amlodipine Besylate (Amlodipine Besylate 2.5 Mg Tablet) 7.5 mg PO DAILY [facility]; Protocol Last Admin: 11/04/24 07:45 Dose: 7.5 mg Documented By: FELICIA Aspirin (Aspirin Enteric Coated 81 Mg Tablet.) 81 mg PO DAILY [facility] Last Admin: 11/04/24 07:45 Dose: 81 mg Documented By: FELICIA Atorvastatin Calcium (Atorvastatin Calcium 80 Mg Tablet) 80 mg PO DAILY [facility] Last Admin: 11/04/24 07:45 Dose: 80 mg Documented By: FELICIA Calcium Carbonate (Calcium Carbonate 750 Mg Tab.Chew) 750 mg PO Q4H PRN PRN Reason: Heartburn Ezetimibe (Ezetimibe 10 Mg Tablet) 10 mg PO DAILY [facility] Last Admin: 11/04/24 07:44 Dose: 10 mg Documented By: FELICIA Enoxaparin Sodium (Enoxaparin Sodium 40 Mg/0.4 Ml Syringe) 40 mg SUBCUT Q24H [facility] Last Admin: 11/03/24 17:00 Dose: 40 mg Documented By: FELICIA Daptomycin 700 mg/ Sodium (Chloride) 64 mls @ 100 mls/hr IV Q24H [facility] Last Infusion: 11/03/24 17:50 Dose: Infused Documented By: FELICIA Levofloxacin (Levofloxacin 750 Mg Tablet) 750 mg PO Q24H [facility] Last Admin: 11/03/24 17:00 Dose: 750 mg Documented By: FELICIA Magnesium Hydroxide (Milk Of Magnesia 30 Ml Oral.Susp) 30 ml PO DAILY PRN PRN Reason: Constipation Melatonin (Melatonin 3 Mg Tablet) 6 mg PO BEDTIME PRN PRN Reason: Insomnia Metoprolol Succinate (Metoprolol Succinate Er 50 Mg Tab.Er.24h) 50 mg PO DAILY [facility]; Protocol Last Admin: 11/04/24 07:44 Dose: 50 mg Documented By: FELICIA Sodium Chloride (0.9 % Sodium Chloride Flush 3 Ml Syringe) 3 ml IVFLUSH QSHIFT [facility] Last Admin: 11/04/24 07:47 Dose: 3 ml Documented By: FELICIA Labs 10/30/24 12:54 10/30/24 12:54 Assessment and Plan (1) PICC line infection: Status: Acute Plan 84-year-old male with a PMH significant for?COPD, aortic stenosis s/p TAVR, CAD s/p stenting in 2021, HTN, and and septic arthritis of Left ankle hardware from september and has been on IV Daptomycin via PICC for staph bacteremia set to end on 11/06. He presented with cellulitis at the Picc line site and tip of picc line growing proteus M., however blood cultures negative. Right upper extremity cellulitis, infected PICC line with proteus, erythema and swelling improving per pt. PICC line removed continue Dapto for Staph bacteremia, ending 11/06, then PO Doxy for 1 month has been on Levaquin for Proteus, ID recommends Ceftin 500 bid x 2 weeks, . ID for additional input, I don't think PICC line need to be replaced CAD Continue aspirin, statin, ezetimibe HTN Continue amlodipine, hydrochlorothiazide, metoprolol Full Code DVT Prophylaxis: Lovenox ongoing need : PICC line infection and still needs to continue IV daptomycin, treatment of?right upper extremity cellulitis and left ankle hardware infection with IV antibiotics and specialist consultation with Infectious Disease. Quality Stroke Does the patient have a stroke diagnosis?: No VTE Prior VTE?: No VTE Risk Level:: Medical - moderate - high VTE Device Contraindication: Treatment Not Indicated VTE Drug Contraindication: N/A - Med Ordered
[2024-11-04] MEDS: cefuroxime axetiL 500 MG TABLET PO ×2 (10:34→21:02)
--- NOTE | 2024-11-04 10:44 | MHC.CM.PN ---
Per MD rounds not medically cleared for dc, plan to dc home 11/06 after completing IV dapto. [facility] updated. CM will continue to follow.
[2024-11-04 15:03] VITALS: BP 128/58; PULSE 85; RESP 17; TEMP 37.1; O2SAT 96
[2024-11-04] MEDS: Enoxaparin Sodium 40 MG/0.4 ML SYRINGE SUBCUT (17:32)
[2024-11-04] MEDS: DAPTOmycin 700 MG in 0.9 % Sodium Chloride 50 ML 100 MG IV (17:32)
[2024-11-04 20:00] VITALS: BP 136/85; PULSE 96; RESP 18; TEMP 36.3; O2SAT 98
[2024-11-05 00:58] VITALS: RESP 18
[2024-11-05 03:23] VITALS: BP 131/62; PULSE 90; RESP 18; TEMP 37.4; O2SAT 93
--- NOTE | 2024-11-05 06:37 | PC.NURSE ---
L[employer] Printing Operator received report and assumed care of this patient at 23:00. Patient offered no acute complaints overnight. VSS. Denied pain. Please see shift assessment and tasks for full details. Safety measures in place.
[2024-11-05 07:56] VITALS: BP 118/56; PULSE 94; RESP 18; TEMP 36.8; O2SAT 93
[2024-11-05] MEDS: Metoprolol Succinate ER 50 MG TAB.ER.24H PO (08:15)
[2024-11-05] MEDS: Ezetimibe 10 MG TABLET PO (08:16)
[2024-11-05] MEDS: amLODIPine Besylate 2.5 MG TABLET 7.5 MG PO (08:16)
[2024-11-05] MEDS: Atorvastatin Calcium 80 MG TABLET PO (08:18)
[2024-11-05] MEDS: cefuroxime axetiL 500 MG TABLET PO ×2 (08:18→21:01)
[2024-11-05] MEDS: Aspirin Enteric Coated 81 MG TABLET.DR PO (08:18)
[2024-11-05] MEDS: 0.9 % Sodium Chloride Flush 3 ML SYRINGE IVFLUSH ×3 (08:19→21:02)
--- NOTE | 2024-11-05 10:40 | P.PNIM_ITS ---
Subjective Subjective Date of Service: 11/05/24 Interval History: seen and evaluated this morning denies fever or chills no other events Review of Systems Review of Systems: Yes all other systems are reviewed and are negative Physical Exam 2 Vital Signs: Vital Signs: Last Vital Signs Temp 98.3 F 11/05/24 07:56 Pulse 94 11/05/24 07:56 Resp 18 11/05/24 07:56 BP 118/56 L 11/05/24 07:56 Pulse Ox 93 11/05/24 07:56 O2 Del Method Room Air 11/05/24 07:56 BMI result Body Mass Index 28.3 Const: Other: Constitutional : interactive, not in distress Cardiovascular : no JVP, no lower extremity edema Respiratory : bilateral chest movement, not in resp distress Gastrointestinal: soft, lax, Non tender Skin : Warm, Dry, no erythema or tenderness at site of prev PICC Neurological : Alert & oriented , No focal deficit Objective Data Active Medications Acetaminophen (Acetaminophen 325 Mg Tablet) 650 mg PO Q6H PRN PRN Reason: Pain, Mild 1-3,fever,headache Amlodipine Besylate (Amlodipine Besylate 2.5 Mg Tablet) 7.5 mg PO DAILY [facility]; Protocol Last Admin: 11/05/24 08:16 Dose: 7.5 mg Documented By: JOSE MARTIN Aspirin (Aspirin Enteric Coated 81 Mg Tablet.) 81 mg PO DAILY [facility] Last Admin: 11/05/24 08:18 Dose: 81 mg Documented By: JOSE MARTIN Atorvastatin Calcium (Atorvastatin Calcium 80 Mg Tablet) 80 mg PO DAILY [facility] Last Admin: 11/05/24 08:18 Dose: 80 mg Documented By: JOSE MARTIN Calcium Carbonate (Calcium Carbonate 750 Mg Tab.Chew) 750 mg PO Q4H PRN PRN Reason: Heartburn Cefuroxime Axetil (Cefuroxime Axetil 500 Mg Tablet) 500 mg PO Q12H [facility] Last Admin: 11/05/24 08:18 Dose: 500 mg Documented By: JOSE MARTIN Ezetimibe (Ezetimibe 10 Mg Tablet) 10 mg PO DAILY [facility] Last Admin: 11/05/24 08:16 Dose: 10 mg Documented By: JOSE MARTIN Enoxaparin Sodium (Enoxaparin Sodium 40 Mg/0.4 Ml Syringe) 40 mg SUBCUT Q24H [facility] Last Admin: 11/04/24 17:32 Dose: 40 mg Documented By: FELICIA Daptomycin 700 mg/ Sodium (Chloride) 64 mls @ 100 mls/hr IV Q24H [facility] Last Infusion: 11/04/24 18:23 Dose: Infused Documented By: FELICIA Magnesium Hydroxide (Milk Of Magnesia 30 Ml Oral.Susp) 30 ml PO DAILY PRN PRN Reason: Constipation Melatonin (Melatonin 3 Mg Tablet) 6 mg PO BEDTIME PRN PRN Reason: Insomnia Metoprolol Succinate (Metoprolol Succinate Er 50 Mg Tab.Er.24h) 50 mg PO DAILY [facility]; Protocol Last Admin: 11/05/24 08:15 Dose: 50 mg Documented By: JOSE MARTIN Sodium Chloride (0.9 % Sodium Chloride Flush 3 Ml Syringe) 3 ml IVFLUSH QSHIFT [facility] Last Admin: 11/05/24 08:19 Dose: 3 ml Documented By: JOSE MARTIN Labs 10/30/24 12:54 10/30/24 12:54 Microbiology Microbiology Results: Microbiology 10/30/24 12:50 Blood Culture - Final Blood - Venous No growth after 5 days. 10/30/24 12:50 Blood Culture - Final Blood - Central Line No growth after 5 days. Assessment and Plan (1) PICC line infection: Status: Acute (2) 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: Status: Acute Plan 84-year-old male with a PMH significant for?COPD, aortic stenosis s/p TAVR, CAD s/p stenting in 2021, HTN, and and septic arthritis of Left ankle hardware from september and has been on IV Daptomycin via PICC for staph bacteremia set to end on 11/06. He presented with cellulitis at the Picc line site and tip of picc line growing proteus M., however blood cultures negative. Right upper extremity cellulitis, infected PICC line with proteus erythema and swelling improving since PICC line removed ID rec not to place new PICC. has been on Levaquin for Proteus, ID recommends Ceftin 500 bid x 2 weeks, . recent Hardware infection continue Daptomycin, ending 11/06, then PO Doxy for 1 month CAD Continue aspirin, statin, ezetimibe HTN Continue amlodipine, hydrochlorothiazide, metoprolol Full Code DVT Prophylaxis: Lovenox ongoing need : PICC line infection and treatment of bacteremia still needs to continue IV daptomycin, treatment of?right upper extremity cellulitis and left ankle hardware infection with IV antibiotics Quality Stroke Does the patient have a stroke diagnosis?: No VTE Prior VTE?: No VTE Risk Level:: Medical - moderate - high VTE Device Contraindication: Treatment Not Indicated VTE Drug Contraindication: N/A - Med Ordered
[2024-11-05 15:53] VITALS: BP 132/59; PULSE 87; RESP 12; TEMP 36.1; O2SAT 95
[2024-11-05] MEDS: DAPTOmycin 700 MG in 0.9 % Sodium Chloride 50 ML 100 MG IV (17:05)
[2024-11-05] MEDS: Enoxaparin Sodium 40 MG/0.4 ML SYRINGE SUBCUT (17:06)
[2024-11-05 19:26] VITALS: BP 126/58; PULSE 83; RESP 20; TEMP 36.3; O2SAT 93
[2024-11-06 03:20] VITALS: BP 142/61; PULSE 80; RESP 18; TEMP 36.2; O2SAT 98
[2024-11-06 05:49] LABS: Basophils Absolute Auto 0.1 X10*3/uL (0.0-0.2); Basophils Percent Auto 0.9 % (0-2); Eosinophils Percent Auto 8.9 % (0-4); Hematocrit 33.3 % (42.0-52.0); Hemoglobin 11.3 g/dl (14.0-18.0); Imm Gran Abs Auto 0.07 X10*3/uL (0.00-0.03); Imm Gran Pct Auto 0.6 % (0.0-0.4); Lymphocytes Absolute Auto 2.7 X10*3/uL (1.2-4.9); Lymphocytes Percent Auto 23.2 % (20-40); MANUAL DIFF FLAG SCAN; Mean Corpuscular HGB Conc 33.9 g/dl (31.0-36.0); Mean Corpuscular Hemoglobin 31.5 pg (27.0-33.0); Mean Corpuscular Volume 92.8 fL (80.0-98.0); Mean Platelet Volume 9.8 fL (9.4-12.4); Monocytes Absolute Auto 1.6 X10*3/uL (0.1-1.2); Monocytes Percent Auto 13.8 % (2-11); Neutrophils Absolute Auto 6.2 x10*3/uL (2.0-8.3); Neutrophils Percent Auto 52.6 % (45-73); Platelet Count 216 X10*3/uL (160-400); Red Blood Count 3.59 X10*6/uL (4.60-5.80); Red Cell Distribution Width 13.8 % (11.0-16.0); SCAN SMEAR FLAG 1; White Blood Count 11.8 X10*3/uL (4.8-10.8)
[2024-11-06 06:05] LABS: Anion Gap 14 (12-20); Blood Urea Nitrogen 29 mg/dL (9-16); Calcium 8.7 mg/dL (8.4-10.2); Carbon Dioxide 21 mmol/L (22-29); Chloride 106 mmol/L (96-108); Estimated Glomerular Filt Rate > 60; Glucose Random 100 mg/dL (60-115); Potassium 4.1 mmol/L (3.3-5.1); Sodium 137 mmol/L (135-145)
[2024-11-06 06:20] LABS: SLIDE REVIEW VERIFIED
[2024-11-06 07:52] VITALS: BP 136/69; PULSE 95; RESP 12; TEMP 36.8; O2SAT 92
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
[2024-11-06] MEDS: Ezetimibe 10 MG TABLET PO (08:45)
[2024-11-06] MEDS: Aspirin Enteric Coated 81 MG TABLET.DR PO (08:45)
[2024-11-06] MEDS: amLODIPine Besylate 2.5 MG TABLET 7.5 MG PO (08:45)
[2024-11-06] MEDS: Metoprolol Succinate ER 50 MG TAB.ER.24H PO (08:45)
[2024-11-06] MEDS: cefuroxime axetiL 500 MG TABLET PO (08:45)
[2024-11-06] MEDS: Atorvastatin Calcium 80 MG TABLET PO (08:45)
[2024-11-06] MEDS: 0.9 % Sodium Chloride Flush 3 ML SYRINGE IVFLUSH (08:45)
--- NOTE | 2024-11-06 09:09 | MHC.CM.PN ---
Addendum entered by Ketty Mcintyre 11/06/24 09:10: [facility] TO TRANSPORT Original Note: PT TO DC HOME TODAY WITH [facility]
[2024-11-06] MEDS: DAPTOmycin 700 MG in 0.9 % Sodium Chloride 50 ML 100 MG IV (14:22)
--- NOTE | 2024-11-06 14:24 | PC.NURSE ---
DAPTOmycicn dose given early as pt is being discharged to home , per Md Francis
[2024-11-06 15:41] VITALS: BP 126/60; PULSE 90; RESP 14; TEMP 36.4; O2SAT 93
== END 2024-11-06 17:30 | disposition home health service (06) | DRG 315 ==
LOC: HO.ED 15:34 → HO.EDOVER 16:11 → HO.S3 19:14
PROVIDERS: Physician Assistant Medical; Student in an Organized Health Care Education/Training Program; Admitting Provider Student in an Organized Health Care Education/Training Program; Emergency Provider Emergency Medicine Emergency Medical Services; PCP Internal Medicine; Visit Provider Internal Medicine
DX: T80.212A Local infection due to central venous catheter, initial encounter (principal); L03.113 Cellulitis of right upper limb; T84.69XA Infection and inflammatory reaction due to internal fixation device of other site, initial encounter; Y79.8 Miscellaneous orthopedic devices associated with adverse incidents, not elsewhere classified; I25.10 Atherosclerotic heart disease of native coronary artery without angina pectoris; I10 Essential (primary) hypertension; B96.4 Proteus (mirabilis) (morganii) as the cause of diseases classified elsewhere; Z95.2 Presence of prosthetic heart valve; Z95.5 Presence of coronary angioplasty implant and graft; Z87.891 Personal history of nicotine dependence; Z79.82 Long term (current) use of aspirin; Z79.899 Other long term (current) drug therapy
CPT/HCPCS: 36415; 80048; 80053; 82550; 83605; 83735; 85025; 87040; 87071; 87077; 87186; 99285; J0878; J1650

== ENCOUNTER → 2024-10-30 16:02 | Outpatient (BNV) | payer OTHER, SELFPAY | PROVIDERS: Admitting Provider Student in an Organized Health Care Education/Training Program; Emergency Provider Emergency Medicine Emergency Medical Services; PCP Internal Medicine; Visit Provider Internal Medicine | DX: T84.7XXA Infection and inflammatory reaction due to other internal orthopedic prosthetic devices, implants and grafts, initial encounter (principal); T80.219A Unspecified infection due to central venous catheter, initial encounter | CPT/HCPCS: 99222 ==

== ENCOUNTER → 2024-10-30 16:02 | Outpatient (BNV) | payer OTHER, SELFPAY | PROVIDERS: Admitting Provider Student in an Organized Health Care Education/Training Program; Emergency Provider Emergency Medicine Emergency Medical Services; PCP Internal Medicine; Visit Provider Student in an Organized Health Care Education/Training Program | DX: T80.219A Unspecified infection due to central venous catheter, initial encounter (principal) | CPT/HCPCS: 99231; 99232; 99233 ==

== ENCOUNTER 2024-11-18 14:57 | Outpatient (REF) | payer OTHER, SELFPAY ==
--- NOTE | ~2024-11-18 | XR_ITS ---
EXAMINATION: XR ANKLE, LEFT CLINICAL INFORMATION: M25.572 - Pain in left ankle and joints of left foot COMPARISON: October 21, 2024. TECHNIQUE: AP, lateral, and mortise views of the left ankle. FINDINGS: Subchondral cyst formation and sclerotic margins along the articular surface is of the tibiotalar joint. Soft tissue edema pattern involving mostly the lateral malleolus without subcutaneous emphysema. Interval osteopenia versus osteoporosis. Vascular calcifications. Lucencies within the distal diaphysis of the fibula corresponding previous hardware XR/XR ankle LT min 3V IMPRESSION: No change. Superimposed acute inflammatory versus infectious process cannot be excluded. Electronically signed by: Messi Jon MD 11/18/2024 03:47 PM EDT
== END 2024-11-18 14:58 | disposition home or self-care (01) ==
LOC: HO.HOSX 14:57
PROVIDERS: PCP Internal Medicine
DX: M25.572 Pain in left ankle and joints of left foot (principal); T84.7XXA Infection and inflammatory reaction due to other internal orthopedic prosthetic devices, implants and grafts, initial encounter; X50.3XXA Overexertion from repetitive movements, initial encounter
CPT/HCPCS: 73610; 99212

== ENCOUNTER 2024-11-18 14:57 | Outpatient (AMB) | payer OTHER, SELFPAY ==
--- NOTE | 2024-11-18 15:03 | MHC.OFFVIS ---
Intake Visit Reasons: PO LT ankle I&D/SHRUTI 09/22/24 NE Intake Note: Reed is a 83 year old male who presents today post operatively s/p removal of hardware and I&D of left ankle DOS: 09/22/24 w/ Dr Jonnathan Chirinos. Patient reports he has slowly been utilizing his cane to assist him with ambulation and light weight bearing of the left foot. He denies any pain in the left ankle. He expresses he is aware he should not be over doing it when he attempts to bear weight of the left ankle. Allergies niacin Allergy (Severe, Verified 11/18/24 15:37) Upset Stomach procaine [From Novocain] Allergy (Severe, Verified 11/18/24 15:37) I GET MEAN simvastatin Adverse Reaction (Severe, Verified 11/18/24 15:37) myopathy HPI HPI PO LT ankle I&D/SHRUTI 09/22/24 NE: Details: Reed is a 83 year old male who presents today post operatively s/p removal of hardware and I&D of left ankle DOS: 09/22/24 w/ Dr Jonnathan Chirinos. Patient reports he has slowly been utilizing his cane to assist him with ambulation and light weight bearing of the left foot. He denies any pain in the left ankle. He expresses he is aware he should not be over doing it when he attempts to bear weight of the left ankle. [facility] Medical History Ankle fracture, lateral malleolus, closed Hyperlipidemia HTN (hypertension) CAD (coronary artery disease) Murmur, cardiac Chest pain COPD (chronic obstructive pulmonary disease) Asbestosis Surgical History S/P TAVR (transcatheter aortic valve replacement) Stented coronary artery Hx of cardiac catheterization Family History Father CAD (coronary artery disease) Mother No problems noted. Social History Household Members: None Housing: House Are you a primary director of medicare to a significant other at home: No Do you presently have visiting nurse or other home services: Yes Comment: pt refusing bed alarm; ongoing Patient Tobacco Use Status: Former Tobacco user Tobacco use type: Cigarette and Cigar Years Smoked: 14 years old e-Cigarette/Vaping Use: Former Use Second Hand Smoke Exposure: No service: No Review of Systems Const All systems reviewed & are unremarkable except as noted in HPI and below Physical Exam Vital Signs: Last Vital Signs Temp 97.8 F 09/24/24 03:15 Pulse 69 09/24/24 03:15 Resp 18 09/24/24 03:15 BP 167/77 H 09/24/24 03:15 Pulse Ox 93 09/24/24 03:15 O2 Del Method Room Air 09/24/24 03:15 O2 Flow Rate 2 09/23/24 07:35 BMI result Body Mass Index 28.2 Extrem Other: Incision site on left ankle clean, dry, intact There is a scab at the most distal aspect there does appear to be a divot in the skin in the more proximal aspect of the incision site, however there is no exposed bone and there is soft tissue coverage throughout the entire incision site Minimal edema, no erythema or ecchymosis noted Aquacel on lateral ankle C/D/I Incision site a medial ankle well closed Patient reports minimal if any tenderness to palpation about the left ankle Distal sensation intact Capillary refill brisk Assessment & Plan Assessment & Plan (1) 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: Comment: He is doing well on Daptomycin Code(s): T84.7XXA - Infection and inflammatory reaction due to other internal orthopedic prosthetic devices, implants and grafts, initial encounter Category: Medical Plan 1.Status post I and D and removal of hardware of left ankle DOS09/22/2024 patient appears to be recovering well postoperatively Patient is educated about the typical recovery course While there is no exposed bone, after discussion with Fady Vick, the small divot in the incision site is scraped to encourage a small amount of bleeding and good soft tissue healing VNA order added for daily wet-to-dry dressing changes, as VNA is already seeing the patient follow-up Saturday for wound check Orders: Orders XR ankle LT min 3V Today M25.572 - Pain in left ankle and joints of left foot Referrals [facility]ospice Referral T84.7XXA - Infection and inflammatory reaction due to other internal orthopedic prosthetic devices, implants and grafts, initial encounter Coding Level of Care Code Global (75504) Diagnoses 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
--- OUTSIDE RECORDS SUMMARY | 2024-11-18 16:01 | XMS_ITS | Patient Health Record ---
Author Organization [facility] Address [address] [place] [address] Care Team Providers Care Gear Grinding Machine Operator Name Role Phone Josue Simmons MD Primary Care Provider Lyn Aquino Unavailable [phone] Allergies Allergen (clinical drug ingredient) Drug/Non Drug [...] primary osteoarthritis of the ankle and/or foot ([id number]) Primary osteoarthrit is, right ankle and foot (M19.071) Active confirmed Encounters Encounter Location Date Provider Diagnosis [facility] [place] [address] [facility] [place] [address] 03/09/2024 Lyn Lund [facility] [address] [facility] [place] [address] 03/12/2024 Lyn Lund [facility] [address] [facility] [place] [address] 04/02/2024 Lyn Lund Plan Of Treatment Pending Test Test Name Order Date X ray : Foot, right 3V 01/20/2015 X ray : Ankle, right 3V 03/04/2017 Insurance Providers Payer Name Payer Address Payer Phone Subscriber Number Group Number Insured Name Patient Relationship to Insured Coverage Start Date Coverage End Date Medicare National [employer] [address] [facility] [place] [address] [id number] Reed Mallory Self - patient is the insured [employer] [address] [place] [address] Reed Mallory Self - patient is the [...]
--- OUTSIDE RECORDS SUMMARY | 2024-11-18 16:01 | XMS_ITS ---
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 Generated for Printi ng/Famichaelg/eTransmitting on:?11/18/2024 04:01 PM EDT
--- OUTSIDE RECORDS SUMMARY | 2024-11-18 16:01 | XMS_ITS ---
Author Organization [facility] Address [address] [place] [address] Care Team Providers Care Crate Repairer Name Role Phone Josue Simmons MD Primary Care Provider UnavailLyn Main [phone] REASON FOR VISIT 04/23/24 Encounters Encounter Location Date Provider Diagnosis [facility] [address] [place] [address] 04/02/2024 Lyn Lund Plan Of Treatment No Information Progress Notes * Reed MALLORY HDOB:1940 (83 yo M)Acc No.[id number]:04/02/2024 Patient:?Reed Mallory :1940???Age:83 Y???Sex:Male Address:[address] [place] [id number] * true * Date:? Generated for Printi ng/Famichaelg/eTransmitting on:?11/18/2024 04:01 PM EDT
--- OUTSIDE RECORDS SUMMARY | 2024-11-18 16:01 | XMS_ITS ---
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 [place] Organization [facility] [place] [facility] [place] Address [address] [place] [address] Care Team Providers Care Vacuum Cleaner Assembler Name Role Phone JOSUE SIMMONS Primary Care [...] Dec 19, 2007 MEDICAR E SUPPLEM E [id number] [phone] NYDIA HUERTA UL PATIENT [employer] MEDICARE SUPPLEMEN YORDAN Dec 19, 2007 MEDICAR E SUPPLEM E [id number] NYDIA HUERTA UL PATIENT [employer] [place] MEDICARE SUPPLEMEN YORDAN BANKE RS Dec 19, 2007 NONE [id number] NYDIA HUERTA PATIENT MEDICARE (WNR) MEDICARE (M) PART B Oct 13, 2006 PART B [id number] NYDIA HUERTA UL PATIENT MEDICARE (WNR) MEDICARE (M) PART B Oct 13, 2006 PART B [id number] [phone] NYIDA HUERTA PATIENT MEDICARE (WNR) MEDICARE (M) PART B Oct 13, 2006 PART B [id number] [phone] NYDIA HUERTA PATIENT MEDICARE (WNR) MEDICARE (M) PART B Oct 13, 2006 PART B [id number] NYDIA HUERTA PATIENT MEDICARE (WNR) MEDICARE (M) PART A Sep 13, 2003 PART A [id number] NYDIA HUERTA UL PATIENT MEDICARE (WNR) MEDICARE (M) PART A Sep 13, 2003 PART A [id number] NYDIA HUERTA PATIENT MEDICARE (WNR) MEDICARE (M) PART A Sep 13, 2003 PART A [id number] NYDIA HUERTA PATIENT MEDICARE (WNR) MEDICARE (M) PART A Sep 13, 2003 PART A [id number] NYDIA HUERTA PATIENT Selected Encounter This section includes the information on record at [place] for the Encounter. Date/Time Encounter Type Encounter Description Reason Provider Source Nov 11, 2024 02:30 PM OFFICE O/P EST LOW 20 MIN PRIMARY CARE/MEDICINE ICD-10-CM M25.572 Pain in left ankle and joints of left foot JOSUE SIMMONS [facility] Encounter Template Text not used by [place] Assessments - Encounter Diagnoses This section includes the primary and secondary diagnoses documented for the Encounter. Date/Time Primary/Secondary Diagnosis Diagnosis Name Provider Source Nov 11, 2024 02:57 PM PRIMARY Pain in left ankle and joints of left foot JOSUE SIMMONS [facility] Plan of Treatment: Future Appointments (+ 6 [...] Date/Time Appointment Type Appointme nt Facility Name November 25, 2024 08:00 AM AMBULATORY - MEDICINE [facility] Jan 13, 2025 10:00 AM AMBULATORY - MEDICINE [facility] May 12, 2025 10:00 AM AMBULATORY - MEDICINE [facility] Active, Pending, and Scheduled Orders This section [...] Date/Time Test Type Test Details Facility Name November 18, 2024 10:32 AM Consult Order [facility] Cons [employer] Tech[employer] Choice [facility] Lab Results: +/- 30 days of the [...] Unit Interpretation Reference Range Specimen Type Comment Nov 11, 2024 03:10 PM [facility] MICROSCOPIC AUTOMATED, URINE URINE Specimen T ype: URINE Comment: If Glucose = >500 and Ketones are positive, please alert the Physician. Ordering Provider: JOSUE SIMMONS Report Released Date/Time: Nov 11, 2024 03:09 PM Reporting Lab: [facility] [address] [facility] [address] Performing Lab: [facility] [address] [facility] [address] UA WBC 0-5 /[HPF] 0-5 UA BACTERIA 1+ /[HPF] NoneObs UA MUCUS FEW /[LPF] Trace UA RBC 3-5 /[HPF] 0-3 Nov 11, 2024 03:10 PM [facility] URINALYSIS CLEAN CATCH URINE Specimen Type: U RINE Comment: If Glucose = >500 and Ketones are positive, please alert the Physician. Ordering Provider: JOSUE SIMMONS Report Released Date/Time: Nov 11, 2024 03:09 PM Reporting Lab: [facility] [address] [facility] [address] Performing Lab: [address] [address] UA COLOR Yellow Yellow UA APPEARANCE Clear Clear UA GLUCOSE Normal mg/dL Negative UA KETONES NEGATIVE mg/dL Negative UA BLOOD NEGATIVE mg/dL Negative UA PROTEIN 30 mg/dL Negative UA NITRITE NEGATIVE mg/dL Negative UA BILIRUBIN NEGATIVE mg/dL Negative UA SPECIFIC GRAVITY 1.030 H 1.016-1.022 UA pH 6.0 5.0-9.0 UA UROBILINOGEN Normal mg/dL <2.0 UA LEUKOCYTE NEGATIVE Negative Nov 09, 2024 07:33 AM [facility] BASIC METABOLIC PANEL (fasting) SERUM Specime n Type: SERUM No comment entered. Ordering Provider: JOSUE SIMMONS Report Released Date/Time: Oct 31, 2024 06:34 PM Reporting Lab: [address] [address] Performing Lab: [address] [address] UREA NITROGEN 24 mg/dL 8-26 GLUCOSE 102 mg/dL H 65-100 SODIUM 141 mmol/L 136-145 POTASSIUM 4.0 mmol/L 3.5-5.1 CHLORIDE 107 mmol/L 98-107 CO2 23 meq/L 23-31 CALCIUM 9.1 mg/dL 8.8-10 CREATININE, Serum 0.81 mg/dL 0.72-1.25 eGFR(CKD-EPI 2020) 86 mL/min >60 Nov 09, 2024 07:33 AM [facility] CBC AND DIFF (AUTO) BLOOD Specimen Type: BLOO D No comment entered. Ordering Provider: JOSUE SIMMONS Report Released Date/Time: Oct 31, 2024 06:34 PM Reporting Lab: [address] [address] Performing Lab: [address] [address] WBC 9.44 10*3/uL 4.50-11.00 RBC 4.01 10*6/uL L 4.23-5.66 HGB 13.0 g/dL 12.8-17 HCT 37.5 L 39.2-50.4 MCV 93.5 fL 82-99 MCHC 34.7 g/dL 30.8-35.1 PLT 236 10*3/uL 140-360 MPV 10.0 fL 9.2-12.4 RDW-CV 13.7 12.0-16.0 MONO, ABS 1.06 10*3/uL 0.30-1.10 MCH 32.4 pg 26.2-32.6 NEUT % 54.7 43.7-75.8 LYMPH % 23.8 14.0-42.3 MONO % 11.2 5.1-13.7 EOS % 9.0 H 0.4-6.8 BASO % 0.6 0.1-2.0 NEUT, ABS 5.15 10*3/uL 2.20-7.60 LYMPH, ABS 2.25 10*3/uL 1.00-3.20 EOS, ABS 0.85 10*3/uL H 0.03-0.44 BASO, ABS 0.06 10*3/uL 0.01-0.13 IMMATURE GRAN % 0.7 0.0-0.7 IMMATURE GRAN, ABS 0.07 10*3/uL H 0.00-0.0 6 NRBC % 0.0 0.0-0.0 NRBC, ABS 0.00 10*3/uL 0.00-0.00 Nov 09, 2024 07:33 AM [facility] LIVER FUNCTION SERUM Specimen Type: SERUM No comment entered. Ordering Provider: JOSUE SIMMONS Report Released Date/Time: Oct 31, 2024 06:34 PM Reporting Lab: [facility] [address] [facility] [address] Performing Lab: [address] [address] PROTEIN,TOTAL 7.0 g/dL 6.4-8.3 ALBUMIN 3.4 g/dL 3.2-4.6 ALKALINE PHOSPHATASE 121 U/L 40-150 AST 42 U/L H 5-34 ALT 25 U/L 0-55 BILIRUBIN, TOTAL 0.5 mg/dL 0.2-1.2 Nov 09, 2024 07:33 AM [facility] LIPID PANEL FASTING SERUM Specimen Type: SERU M No comment entered. Ordering Provider: JOSUE SIMMONS Report Released Date/Time: Oct 31, 2024 06:34 PM Reporting Lab: [facility] [address] [facility] [address] Performing Lab: [facility] [address] [facility] [address] CHOLESTEROL 130 mg/dL TRIGLYCERIDE 93 mg/dL 0-150 LDL calculated 74 mg/dL 0-129 CHOL/HDL 3.5 HDL CHOLESTEROL 37 mg/dL L >40 Nov 09, 2024 07:33 AM [facility] SERUM Specimen Type: SERUM No comment entered. Ordering Provider: JOSUE SIMMONS Report Released Date/Time: Oct 31, 2024 06:34 PM Reporting Lab: [facility] [address] [facility] [address] Performing Lab: [facility] [address] [facility] [address] TSH 3.49 u[IU]/mL 0.35-4.94 Nov 09, 2024 07:33 AM [facility] MICROSCOPIC AUTOMATED, URINE URINE Specimen T ype: URINE Comment: If Glucose = >500 and Ketones are positive, please alert the Physician. Ordering Provider: JOSUE SIMMONS Report Released Date/Time: Oct 31, 2024 06:34 PM Reporting Lab: [facility] [address] [facility] [address] Performing Lab: [facility] [address] [facility] [address] UA MUCUS FEW /[LPF] Trace UA HYALINE CASTS 2-4 /[LPF] 0-2 UA CALCIUM OXALATE CRYSTALS MANY /[HPF] Not Established UA RBC 6-10 /[HPF] H 0-3 UA SQUAMOUS EPITH FEW /[HPF] Nov 09, 2024 07:33 AM [facility] URINALYSIS CLEAN CATCH URINE Specimen Type: U RINE Comment: If Glucose = >500 and Ketones are positive, please alert the Physician. Ordering Provider: JOSUE SIMMONS Report Released Date/Time: Oct 31, 2024 06:34 PM Reporting Lab: [facility] [address] [facility] [address] Performing Lab: [facility] [address] [facility] [address] UA COLOR Yellow Yellow UA APPEARANCE Clear Clear UA GLUCOSE Normal mg/dL Negative UA KETONES NEGATIVE mg/dL Negative UA BLOOD SMALL mg/dL Negative UA PROTEIN 20 mg/dL Negative UA NITRITE NEGATIVE mg/dL Negative UA BILIRUBIN NEGATIVE mg/dL Negative UA SPECIFIC GRAVITY 1.030 H 1.016-1.022 UA pH 6.0 5.0-9.0 UA UROBILINOGEN Normal mg/dL <2.0 UA LEUKOCYTE NEGATIVE Negative Vital Signs: All taken on the encounter date This section contains inpatient and outpatient Vital Signs collected on the date of the Encounter. Date/Time Temperature Pulse Blood Pressure Respiratory Rate SP02 Pain Height Weight Body Mass Index Source Nov 11, 2024 02:15 PM 97.8 83 134/74 16 97 0 66 168 27 [facility] Social History: Smoking Status (Most [...] Date/Time Current Smoking Status Comment Facil ity Nov 11, 2024 02:30 PM VA-TOBACCO USE FOR ROSANA CIGARETTES [facility] Tobacco Use History This section includes a history of the smoking, or tobacco-related health factors, that were collected on or before the date of the Encounter. The data comes from the [place] facility where the Encounter took place. Date/Time Smoking Status/Tobacco Use Comment F acility Nov 11, 2024 02:30 PM VA-TOBACCO USE FOR ROSANA CIGARETTES [facility] Oct 16, 2023 01:30 PM VA-TOBACCO FORMER USER [facility] Oct 16, 2023 01:30 PM VA-TOBACCO QUIT 15 YRS OR MORE [facility] Jul 04, 2022 11:00 AM VA-TOBACCO FORMER USER [facility] [place] [facility] Jul 04, 2022 11:00 AM VA-TOBACCO QUIT 15 YRS OR MORE [facility] [place] [facility] Jun 28, 2021 10:30 AM VA-TOBACCO FORMER USER [facility] [place] [facility] Jun 28, 2021 10:30 AM VA-TOBACCO QUIT 15 YRS OR MORE [facility] [place] [facility] May 26, 2020 08:00 AM VA-TOBACCO FORMER USER [facility] [place] [facility] May 26, 2020 08:00 AM VA-TOBACCO QUIT 15 YRS OR MORE [facility] [place] [facility] May 23, 2018 11:21 AM VA-TOBACCO NEVER USED [facility] Advance Directives: All historical and current [...] Feb 19, 2022 ADVANCE DIRECTIVE JOCE CASTORENA [facility] November 16, 2020 ADVANCE DIRECTIVE JOSUE SIMMONS [facility] Pathology Reports: +/- 30 days of the encounter Pathology Reports For cases when an order for pathology services may have been completed prior to the date of the Encounter, the report list includes the Pathology Reports that were completed up to 30 days before dateof the Encounter. For cases when an order for pathology services may have been completed after the date of the Encounter, the report list also includes the Pathology Reports that were completed up to30 days after date of the Encounter. The data comes from all [place] treatment facilities. Date/Time Pathology Report Provider Source Nov 11, 2024 03:10 PM LR MICROBIOLOGY RE PORT: Reporting Lab: [facility] [CLIA# [id number]] [address] [place] [id number] Accession [UID]: [id number] [[id number]] Received: Nov 11, 2024@15:10 Collection sample: URINE CLEAN CATCH Collection date: Nov 11, 2024 15:10 Site/Specimen: URINE Provider: JOSUE SIMMONS Test(s) ordered: URINE CULTURE(MWROX).......... completed: November 16, 2024 10:31 * BACTERIOLOGY FINAL REPORT => November 16, 2024 10:31 TECH CODE: [id number] Bacteriology Remark(s): NO GROWTH IN 24 HOURS, FINAL REPORT TO FOLLOW. FINAL AEROBIC REPORT: NO GROWTH =--=--=--=--=--=--=--=-- =--=--=--=--=--=--=--=-- =--=--=--=--=--=--=--=-- =--=-- Performing Laboratory: Bacteriology Report Performed By: [facility] [CLIA# [id number]] [address] [place] [id number] KAVITHA TREJO [facility] Encounter Notes: All associated encounter notes This section contains the clinical notes associated to the Encounter. Date/Time Encounter Note(s) Provider Source Nov 11, 2024 02:52 PM PHYSICIAN NOTE: LOCAL TITLE: NOTE STANDARD TITLE: PHYSICIAN NOTE DATE OF NOTE: NOV 11, 2024@14:52 ENTRY DATE: NOV 11, 2024@14:52:53 AUTHOR: JOSUE SIMMONS EXP COSIGNER: URGENCY: STATUS: COMPLETED Patient Name: ALYCIA HUERTA VITALS: Patient temperature: 97.8 F [36.6 C] (11/11/2024 14:15) Blood pressure: 134/74 (11/11/2024 14:15) Patient height: 66 in [167.6 cm] (11/11/2024 14:15) Patient weight: 168 lb [76.20 kg] (11/11/2024 14:15) Patient BMI: BMI: 27.2 Patient pulse: 83 (11/11/2024 14:15) Patient respiration: 16 (11/11/2024 14:15) Patient Pulse Oximetry: 97% (11/11/2024 14:15) Pain Ratin (11/11/2024 14:15) Active [facility] Medications: Active Outpatient Medications (including Supplies): Active Outpatient Medications Status 1) AMLODIPINE BESYLATE 5MG TAB TAKE ONE TABLET BY MOUTH ONCE ACTIVE DAILY FOR BLOOD PRESSURE/HEART, DO NOT TAKE WITH GRAPEFRUIT JUICE 2) CARBOXYMETHYLCELLULOSE NA 0.5% OPH SOLN INSTILL 1 DROP INTO ACTIVE EACH EYE FOUR TIMES A DAY Indication: FOR DRY EYE 3) DOXYCYCLINE HYCLATE 100MG TAB TAKE ONE TABLET BY MOUTH TWICE ACTIVE DAILY 4) EYELID CLEANSER,EYE SCRUB PAD USE 1 PAD TOPICALLY EVERY ACTIVE MORNING Indication: BLEPHARITIS 5) EZETIMIBE 10MG TAB TAKE ONE TABLET BY MOUTH ONCE DAILY TO ACTIVE LOWER CHOLESTEROL 6) HYDROCHLOROTHIAZIDE 25MG TAB TAKE ONE TABLET BY MOUTH ONCE ACTIVE DAILY 7) METOPROLOL SUCCINATE 50MG SA TAB TAKE ONE TABLET BY MOUTH ACTIVE ONCE DAILY FOR BLOOD PRESSURE/HEART Active Non-VA Medications Status 1) Non-VA ASPIRIN 81MG CHEW TAB 81MG BY MOUTH ONCE DAILY ACTIVE 8 Total Medications Remote Medications: No 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 doxycycline for left ankle infection. He is followed by infectious disease Dr. Keita. He feels well today with no complaints. No pain, fever, chills, pus, discharge or bleeding. He wears a left ankle splint. There is no surgical bandage on the wound. Physical examination Well-developed well-nourished male in no acute distress Carotid no bruit Coronary no murmur Lungs clear No peripheral edema Left ankle and foot without erythema, surgical site clean without erythema or dehiscence RBC/HPF: 6-10 H MUCUS: FEW HYALINE/CASTS/LPF: 2-4 CA++ OXALATE CRYSTALS: MANY SQUAMOUS EPITHELIAL: FEW Color, Urine (AX 4280): Yellow Appearance, Urine (AX 4280): Clear Glucose, Urine (AX 4280): Normal Ketones, Urine (AX 4280): NEGATIVE Blood, Urine (AX 4280): SMALL Protein, Urine (AX 4280): 20 Nitrite, Urine (AX 4280): NEGATIVE Bilirubin, Urine (AX 4280): NEGATIVE Specific [place], (AX 4280): 1.030 H pH, Urine ([id number]): 6.0 Urobilinogen, Urine (AX 4280): Normal Leukocyte Esterase, (AX 4280): NEGATIVE TSH (Access): 3.49 GLUCOSE: 102 H UREA NITROGEN: 24 SODIUM: 141 POTASSIUM: 4.0 CHLORIDE: 107 CO2: 23 CALCIUM: 9.1 CHOLESTEROL: 130 PROTEIN,TOTAL: 7.0 ALBUMIN: 3.4 ALKALINE PHOSPHATASE: 121 SGOT: 42 H SGPT: 25 TRIGLYCERIDE: 93 LDL CHOL: 74 CHOL/HDL RATIO: 3.5 HDL: 37 L BILIRUBIN,TOT.: 0.5 CREATININE-EGFR: 0.81 eGFR CKD-EPI 2020: 86 WBC: 9.44 RBC: 4.01 L HGB: 13.0 HCT: 37.5 L MCV: 93.5 MCHC: 34.7 RDW: 13.7 PLT: 236 MPV: 10.0 MCH: 32.4 Neut %: 54.7 Lymph %: 23.8 [place] %: 11.2 Eos %: 9.0 H Baso %: 0.6 Neut, Abs: 5.15 Lymph, Abs: 2.25 [place], Abs: 1.06 Eos, Abs: 0.85 H Baso, Abs: 0.06 Immature Granulocytes %: 0.7 Immature Granulocytes, Abs: 0.07 H NRBC%: 0.0 NRBC#: 0.00 I discussed above test results with patient Assessment and plan: 1. Left ankle infection: No fever, leukocytosis or other symptoms of infection. Patient feels well today with no complaints. Plan: Continue antibiotics, continue infectious disease consult 2. Microscopic hematuria: Patient reported urinalysis was not clean-catch as requested. Urinary symptoms Plan: Repeat urinalysis and culture today Follow-up 6 months clinic visit and lab Medication Reconciliation: Outpatient: Has the patient been taking medications as documented in the EMLR? YES: The patient has been taking medications as documented in the EMLR. Essential Medication List for Review used to complete this medication reconciliation. INCLUDED IN THIS LIST: Alphabetical list of active outpatient prescriptions dispensed from this CO (local) and dispensed from another [place] or [facility] facility (remote) as well as inpatient [...] /eleanor/ Josue Simmons MD Staff Physician Signed: 11/11/2024 14:57 JOSUE SIMMONS [facility] [place] [facility] Nov 11, 2024 02:20 PM PREVENTIVE MEDICINE NURSING NOTE: LOCAL TITLE: CLINICAL REMINDERS/NURSING STANDARD TITLE: PREVENTIVE MEDICINE NURSING NOTE DATE OF NOTE: NOV 11, 2024@14:20 ENTRY DATE: NOV 11, 2024@14:20:46 AUTHOR: COBY MAHER EXP COSIGNER: URGENCY: STATUS: COMPLETED Tobacco Use Screening: The patient is a former cigarette smoker. The patient has never used other types of tobacco. Alcohol Use Screen (AUDIT-C): Alcohol Screen: SCREEN FOR ALCOHOL (AUDIT-C) An alcohol screening test (AUDIT-C) was negative (score=4). 1. How often did you have a drink containing alcohol in the past year? Consider a drink to be a 12 ounce can or bottle of regular beer, 8 ounces of malt liquor, a 5 ounce glass of table wine, or a 1.5 ounce shot of liquor (like scotch, gin, or vodka). Four or more times a week 2. How many drinks containing alcohol did you have on a typical day when you were drinking in the past year? One or two drinks 3. How often did you have six or more drinks on one occasion in the past year? Never Depression Screening: Perform PHQ-2 A PHQ-2 screen was performed. The score was 0 which is a negative screen for depression. Over the past two weeks, how often have you been bothered by the following problems? 1. Little interest or pleasure in doing things Not at all 2. Feeling down, depressed, or hopeless Not at all Homelessness/Food Insecurity Screen: In the past 2 [...] have money to get more. Never true RHS Screen: RHS Screen Session Format: Face to Face Environmental Check Upon inquiry, the individual reports that the environment is safe to proceed. Informed Consent to Screen and Document The individual consents to proceed with screening. The individual consents to documentation of responses. PRIMARY SCREEN: In the past 12 months, how often did a current or former intimate partner (e.g., boyfriend, girlfriend, , , sexual partner): 1. Scream or curse at you Never 2. Insult or talk down to you Never 3. Threaten you with harm Never 4. Physically hurt you Never 5. Force or pressure you to have sexual contact against your will, or when you were unable to say no Never ?? The HITS tool (items 1-4 above) is US copyright protected by Scott Saleh MD, and the user has full rights to use it throughout the [place] system. PRIMARY SCREEN RESULT: The Primary Screen is NEGATIVE. The individual answered never to all forms of IPV above (i.e., answered never to all 5 items) The individual accepts education and/or resources: Other: n/a EDUCATION: Other: n/a (Optional) Whole Health Documentation: What matters the most to you? What motivates you to be healthy? (MAP) Response: work! /eleanor/ COBY MAHER LPN LPN Signed: 11/11/2024 14:23 [facility]HER [facility]
--- OUTSIDE RECORDS SUMMARY | 2024-11-18 16:02 | XMS_ITS ---
Author Organization [facility] Address [address] [place] [address] Care Team Providers Care Drum Handler Name Role Phone Josue Simmons MD Primary Care Provider Unavailab melinda Lyn Lund Unavailable [phone] Allergies Allergen (clinical drug ingredient) Drug/Non Drug [...] 04/23/2024 Encounters Encounter Location Date Provider Diagnosis [facility] [address] [place] [address] 04/23/2024 Lyn Lund Plan Of Treatment No Information Progress Notes * Reed MALLORY HDOB:1940 (84 yo M)Acc No.[id number]:04/23/2024 Progress Notes Patient:Reed VANCE Provider:?Lyn Lund DPM :1940???Age:83 Y???Sex:Male Chu e:04/23/2024 Address:[address] [place], [place] [id number] Pcp:Josue Simmons MD Subjective: * Chief Complaints: [...] Lund DPM Date:?2023 Generated for Yokasta palacios/Ilda/Sunil on:?11/18/2024 04:02 PM EDT
--- OUTSIDE RECORDS SUMMARY | 2024-11-18 16:02 | XMS_ITS | Continuity of Care Document ---
Author Name [facility] Organization [facility] Care Team Providers Care Legal Executive Assistant Name Role Phone [facility] Unavailable Unavailable Problems Combined list of problems from Department of Defense and Veterans Affairs facilities. It does not include entries that were removed or entered in error. Problem Status Onset Date Problem Type Date of Resolution Comments Source Arthralgia of left ankle Active 025 Condition Nov 11, 2024 Entered By: BYRON BARRON Comment: postop infection [facility] Chronic dermatitis Active 023 Condition Oct 05, 2022 Entered By: BYRON BARRON Comment: referred to dermatology [facility] Chest Pain (SCT [id number]) Active 022 Condition Jan 02, 2022 Entered By: BYRON BARRON Comment: ordered stress test [facility] COPD - Chronic Obstructive Pulmonary Disease (SCT 12271242) Active 022 Condition Dec 28, 2021 Entered By: BYRON BARRON Comment: on inhalers [facility] Cataract Active 021 Condition Oct 12, 2020 Entered By: BYRON BARRON Comment: referred for surgery [facility] HTN - Hypertension (SCT [id number]) Active 021 Condition Oct 21, 2020 Entered By: BYRON BARRON Comment: treated witn medication [facility] Hypercholesterolemia (SCT [id number]) Active 021 Condition Oct 21, 2020 Entered By: BYRON BARRON Comment: treated with medication [facility] Asbestosis Active 018 Condition [facility] Aortic valve stenosis Active Condition [facility] Diagnosis: ICD-10-CM M25.572 Pain in left ankle and joints of left foot Active Diagnosis [facility] [...] of uncertain behavior of skin Active Diagnosis [facility] Diagnosis: ICD-10-CM Z13.89 Encounter for screening for other disorder Active Diagnosis [facility] Diagnosis: ICD-10-CM R21 Rash and other nonspecific skin eruption Active Diagnosis [facility] Diagnosis: ICD-10-CM Z23 Encounter for immunization [...] WITH GRAPEFRU IT JUICE ORAL ACTIVE 12/24/2024 [id number] CHIQUIS NAYLORRE K 2024 90 [facility] AMOXICILLIN TRIHYDRATE 875MG/CLAVU LANATE K 125MG TAB TAKE 1 TABLET BY MOUTH TWICE DAILY FOR INFECTIO N ORAL 11/15/2023 [id number] 4 MAUREEN BARRON D 2023 20 [facility] ASPIRIN 81MG TAB,CHEWABL E CHEW ONE TABLET BY MOUTH ONCE DAILY ORAL ACTIVE JANINE HAMMOND R 2021 [facility] ATORVASTATI N CA 80MG TAB TAKE ONE TABLET BY MOUTH AT BEDTIME ORAL DISCONT INUED BY PROVIDE R 06/26/2025 [id number] 5 MAUREEN BARRON D 2023 90 [facility] ATORVASTATI N CA 80MG TAB TAKE ONE TABLET BY MOUTH AT BEDTIME ORAL DISCONT INUED 06/19/2024 [id number] MOHAMUD ARGUETA AV 2022 90 [facility] CARBOXYMETH YLCELLULOSE NA 0.5% SOLN,OPH INSTILL 1 DROP INTO EACH EYE FOUR TIMES A DAY FOR DRY EYE OPHTHA LMIC ACTIVE 09/02/2025 [id number] 5 OSBALDO CALDERON J 2024 45 [facility] CEPHALEXIN 500MG CAP TAKE ONE CAPSULE BY MOUTH EVERY 8 HOURS FOR INFECTIO N ORAL 04/04/2024 [id number] 4 MAMTA STERN 2023 21 [facility] DOCUSATE NA 100MG CAP TAKE ONE CAPSULE BY MOUTH TWICE DAILY FOR 7 DAYS TO SOFTEN STOOL ORAL 10/25/2024 [id number] 5 DIDIER CANTU 2024 14 [facility] DOXYCYCLINE HYCLATE 100MG TAB TAKE ONE TABLET BY MOUTH TWICE DAILY ORAL ACTIVE 10/27/2025 [id number] 5 Janes LOPEZ MD 2024 60 [facility] EYELID CLEANSER,EY E SCRUB PAD USE 1 PAD TOPICALL Y EVERY MORNING BLEPHARI TIS TOPICA L ACTIVE 09/02/2025 [id number] 5 OSBALDO CALDERON EY J 2024 90 [facility] EZETIMIBE 10MG TAB TAKE ONE TABLET BY MOUTH ONCE DAILY TO LOWER CHOLESTE ROL ORAL ACTIVE 06/26/2025 [id number] 5 MAUREEN BARRON D 2023 90 [facility] EZETIMIBE 10MG TAB TAKE ONE TABLET BY MOUTH ONCE DAILY TO LOWER CHOLESTE ROL ORAL DISCONT INUED 06/19/2024 [id number] 4 KENDALL,MOHAMUD AV 2022 90 [facility] HYDROCHLORO THIAZIDE 25MG TAB TAKE ONE TABLET BY MOUTH ONCE DAILY ORAL ACTIVE 12/24/2024 [id number] 5 RAJI AVIL 2024 90 [facility] HYDROCHLORO THIAZIDE 25MG TAB TAKE ONE TABLET BY MOUTH ONCE DAILY ORAL 06/19/2024 [id number] 4 KENDALL,MOHAMUD AV 2023 90 [facility] METOPROLOL SUCCINATE 50MG TAB,SA TAKE ONE TABLET BY MOUTH ONCE DAILY FOR BLOOD PRESSURE /HEART ORAL ACTIVE 06/26/2025 [id number] 5 MAUREEN BARRON D 2023 90 [facility] METOPROLOL SUCCINATE 50MG TAB,SA TAKE ONE TABLET BY MOUTH ONCE DAILY FOR BLOOD PRESSURE /HEART ORAL DISCONT INUED 06/19/2024 [id number] 4 KENDALL,MOHAMUD AV 2022 90 [facility] OXYCODONE HCL 5MG TAB TAKE ONE TABLET BY MOUTH EVERY 4 HOURS NEEDED FOR PAIN ORAL 10/25/2024 [id number] 5 MELIONEL,TA- NERI 2024 42 [facility] TRIAMCINOLO NE ACETONIDE 0.1% CREAM,TOP APPLY A MODERATE AMOUNT TOPICALL Y TWICE DAILY NEEDED FOR ITCHING TOPICA L 10/24/2024 [id number] 4 MAUREEN BARRON PAIGE D 2023 454 [facility] Allergies, Adverse Reactions, Alerts Combined list of allergies from Department of Defense and Veterans Affairs facilities. It does not include entries that were removed or entered in error. Substance Category Reaction Severity Reaction type Status Date Reported Comments Source LIDOCAINE Propensity to adverse reactions to drug (finding) Itching MODERATE active 2 [facility] NOVOCAIN Propensity to adverse reactions to drug (finding) Feeling agitated active 8 [facility] [place] PROCAINE Propensity to adverse reactions to drug (finding) active 2 [facility] Immunizations Combined list of available immunizations from the Department of Defense and Veterans Affairs facilities. Immunization Series Date Given Administered By Site Reaction Lot Number CVX Code Drug Moss Gatherer Status Comments Source COVID-19 (MODERNA), MRNA, LNP-S, PF, 50 MCG/0.5 ML (AGES 12+ YEARS) 7 2023 ALMA MAHER LEFT DELTO ID [id number] 312 complet ed [facility] INFLUENZA, HIGH-DOSE, TRIVALENT, PF 2023 ALMA MAHER LEFT DELTO ID [id number] 135 complet ed Completed Series, [facility] RSV, BIVALENT, PROTEIN SUBUNIT RSVPREF, DILUENT RECONSTITUTED , 0.5 ML, PF 1 2023 GRETCHEN ANDRADE E LEFT DELTO ID [id number] 305 complet ed [facility] COVID-19 (MODERNA), MRNA, LNP-S, PF, 50 MCG/0.5 ML (AGES 12+ YEARS) 1 2023 RAYMONDGRETCHEN ERNST E LEFT DELTO ID [id number] 312 complet ed [facility] INFLUENZA, HIGH-DOSE, QUADRIVALENT 2022 JERRI SHAIKH M LEFT DELTO ID [id number] 197 complet ed [facility] COVID-19 (MODERNA), MRNA, LNP-S, BIVALENT BOOSTER, PF, 50 MCG/0.5 ML OR 25MCG/0.25 ML DOSE 2021 JERRI SHAIKH M LEFT DELTO ID [id number] 229 complet ed Booster for Series, [facility] INFLUENZA VACCINE, QUADRIVALENT, ADJUVANTED 2021 205 complet ed [facility] COVID-19 (MODERNA), MRNA, LNP-S, PF, 100 MCG/0.5ML DOSE OR 50 MCG/0.25ML DOSE 3 2021 207 complet ed MOD; [id number] ; 2 [facility] PNEUMOCOCCAL CONJUGATE PCV20, POLYSACCHARID E [id number] CONJUGATE, ADJUVANT, PF 2021 216 complet ed [facility] COVID-19 (MODERNA), MRNA, LNP-S, PF, 100 MCG OR 50 MCG DOSE 3 2020 207 complet ed MOD; [id number]; 2 [facility] INFLUENZA, UNSPECIFIED FORMULATION 2020 88 complet ed [facility] TDAP 2020 115 complet ed [facility] COVID-19 (MODERNA), MRNA, LNP-S, PF, 100 MCG/0.5 ML DOSE 2 2020 207 complet ed MOD; [id number]; 1 [facility] COVID-19 (MODERNA), MRNA, LNP-S, PF, 100 MCG/0.5 ML DOSE 1 2020 207 complet ed MOD; [id number]; 1 [facility] [...] SEASONAL 2017 135 complet ed 02, Partner: [facility]. Administe red by: ARLET BOLTON (INX=[phone]). Partner 0 Lot#: [id number] Mfr: Sanofi Pasteur; Dosage: 0.5 [facility] PNEUMOCOCCAL POLYSACCHARID E PPV23 2016 33 complet ed 02, Partner: [facility]. Administe red by: ARLET BOLTON (DNU=[phone]). Partner 0 Lot#: [id number] Mfr: [email or web address]; Dosage: 0.5 [facility] INFLUENZA, HIGH DOSE SEASONAL 2016 135 complet ed 02, Partner: [facility]. Administe red by: ARLET BOLTON (QTU=[phone]). Partner 0 Lot#: [id number] Mfr: Sanofi Pasteur; Dosage: 0.5 [facility] Results Combined list of recent chemistry, hematology and other laboratory results from Department of Defense and Veterans Affairs, ranging from 15 months to all on record, depending upon the facility. Order Name Results Value Reference Range Date Interpretation Specimen Comments Source MICROSCO PIC AUTOMATE D, URINE LEUKOCYTES [#/AREA] IN URINE SEDIMENT BY MICROSCOPY HIGH POWER FIELD 0-5/[HPF ] 0 - 5 11/11 Specimen Type: URINE Comment: If Glucose = >500 and Ketones are positive, please alert the Physician. Ordering Provider: JAMILA BARRON Report Released Date/Time: Nov 11, 2024 03:09 PM Reporting Lab: [facility] [place] [facility] [address] [address] Performing Lab: [facility] [address] [address] [facility] MICROSCO PIC AUTOMATE D, URINE BACTERIA [#/AREA] IN URINE SEDIMENT BY MICROSCOPY HIGH POWER FIELD 1+/[HPF] 11/11 Specimen Type: URINE Comment: If Glucose = >500 and Ketones are positive, please alert the Physician. Ordering Provider: JMAILA BARRON Report Released Date/Time: Nov 11, 2024 03:09 PM Reporting Lab: [facility] [place] [facility] [address] [address] Performing Lab: [facility] [place] [facility] [address] [address] [facility] MICROSCO PIC AUTOMATE D, URINE MUCUS [#/AREA] IN URINE SEDIMENT BY MICROSCOPY LOW POWER FIELD FEW/[LPF ] 11/11 Specimen Type: URINE Comment: If Glucose = >500 and Ketones are positive, please alert the Physician. Ordering Provider: JAMILA BARRON Report Released Date/Time: Nov 11, 2024 03:09 PM Reporting Lab: [facility] [place] [facility] [address] [address] Performing Lab: [facility] [address] [address] [facility] MICROSCO PIC AUTOMATE D, URINE ERYTHROCYT ES [#/AREA] IN URINE SEDIMENT BY MICROSCOPY HIGH POWER FIELD 3-5/[HPF ] 0 - 3 11/11 Specimen Type: URINE Comment: If Glucose = >500 and Ketones are positive, please alert the Physician. Ordering Provider: JAMILA BARRON Report Released Date/Time: Nov 11, 2024 03:09 PM Reporting Lab: [facility] [place] [address] [address] Performing Lab: [facility] [place] [facility] [address] [address] [facility] URINALYS IS CLEAN CATCH COLOR OF URINE Yellow 11/11 Specimen Type: URINE Comment: If Glucose = >500 and Ketones are positive, please alert the Physician. Ordering Provider: JAMILA BARRON Report Released Date/Time: Nov 11, 2024 03:09 PM Reporting Lab: [facility] [place] [address] [address] Performing Lab: [facility] [place] [address] [address] [facility] URINALYS IS CLEAN CATCH APPEARANCE OF URINE Clear 11/11 Specimen Type: URINE Comment: If Glucose = >500 and Ketones are positive, please alert the Physician. Ordering Provider: JAMILA BRARON Report Released Date/Time: Nov 11, 2024 03:09 PM Reporting Lab: [facility] [place] [address] [address] Performing Lab: [facility] [place] [address] [address] [facility] URINALYS IS CLEAN CATCH GLUCOSE [MASS/VOLU ME] IN URINE Normalmg /dL 11/11 Specimen Type: URINE Comment: If Glucose = >500 and Ketones are positive, please alert the Physician. Ordering Provider: JAMILA BARRON Report Released Date/Time: Nov 11, 2024 03:09 PM Reporting Lab: [facility] [place] [address] [address] Performing Lab: [facility] [place] [facility] [address] [address] [facility] URINALYS IS CLEAN CATCH KETONES [MASS/VOLU ME] IN URINE BY TEST STRIP NEGATIVE mg/dL 11/11 Specimen Type: URINE Comment: If Glucose = >500 and Ketones are positive, please alert the Physician. Ordering Provider: JAMILA BARRON Report Released Date/Time: Nov 11, 2024 03:09 PM Reporting Lab: [facility] [place] [facility] [address] [address] Performing Lab: [facility] [place] [facility] [address] [address] [facility] URINALYS IS CLEAN CATCH ERYTHROCYT ES [PRESENCE] IN URINE SEDIMENT BY LIGHT MICROSCOPY NEGATIVE mg/dL 11/11 Specimen Type: URINE Comment: If Glucose = >500 and Ketones are positive, please alert the Physician. Ordering Provider: JAMILA BARRON Report Released Date/Time: Nov 11, 2024 03:09 PM Reporting Lab: [facility] [place] [facility] [address] [address] Performing Lab: [facility] [place] [facility] [address] [address] [facility] URINALYS IS CLEAN CATCH PROTEIN [MASS/VOLU ME] IN URINE BY TEST STRIP 30 mg/dL 11/11 Specimen Type: URINE Comment: If Glucose = >500 and Ketones are positive, please alert the Physician. Ordering Provider: JAMILA BARRON Report Released Date/Time: Nov 11, 2024 03:09 PM Reporting Lab: [facility] [place] [facility] [address] [address] Performing Lab: [facility] [place] [facility] [address] [address] [facility] URINALYS IS CLEAN CATCH NITRITE [PRESENCE] IN URINE NEGATIVE mg/dL 11/11 Specimen Type: URINE Comment: If Glucose = >500 and Ketones are positive, please alert the Physician. Ordering Provider: JAMILA BARRON Report Released Date/Time: Nov 11, 2024 03:09 PM Reporting Lab: [facility] [address] [address] Performing Lab: [facility] [address] [address] [facility] URINALYS IS CLEAN CATCH BILIRUBIN. TOTAL [PRESENCE] IN URINE NEGATIVE mg/dL 11/11 Specimen Type: URINE Comment: If Glucose = >500 and Ketones are positive, please alert the Physician. Ordering Provider: JAMILA BARRON Report Released Date/Time: Nov 11, 2024 03:09 PM Reporting Lab: [facility] [address] [address] Performing Lab: [facility] [place] [facility] [address] [address] [facility] URINALYS IS CLEAN CATCH SPECIFIC GRAVITY OF URINE BY REFRACTOME TRY 1.030 1.016 - 1.022 11/11 H Specimen Type: URINE Comment: If Glucose = >500 and Ketones are positive, please alert the Physician. Ordering Provider: JAMILA BARRON Report Released Date/Time: Nov 11, 2024 03:09 PM Reporting Lab: [facility] [address] [address] Performing Lab: [facility] [place] [facility] [address] [address] [facility] URINALYS IS CLEAN CATCH PH OF URINE BY TEST STRIP 6.0 5.0 - 9.0 11/11 Specimen Type: URINE Comment: If Glucose = >500 and Ketones are positive, please alert the Physician. Ordering Provider: JAMILA BARRON Report Released Date/Time: Nov 11, 2024 03:09 PM Reporting Lab: [facility] [address] [address] Performing Lab: [facility] [address] [address] [facility] URINALYS IS CLEAN CATCH UROBILINOG EN [MASS/VOLU ME] IN URINE BY TEST STRIP Normalmg /dL <2.0 - 2.0 11/11 Specimen Type: URINE Comment: If Glucose = >500 and Ketones are positive, please alert the Physician. Ordering Provider: JAMILA BARRON Report Released Date/Time: Nov 11, 2024 03:09 PM Reporting Lab: [facility] [address] Performing Lab: [facility] [address] [facility] URINALYS IS CLEAN CATCH LEUKOCYTE ESTERASE [PRESENCE] IN URINE BY TEST STRIP NEGATIVE 11/11 Specimen Type: URINE Comment: If Glucose = >500 and Ketones are positive, please alert the Physician. Ordering Provider: JAMILA BARRON Report Released Date/Time: Nov 11, 2024 03:09 PM Reporting Lab: [facility] [address] Performing Lab: [facility] [address] [facility] BASIC METABOLI C PANEL (fasting ) UREA NITROGEN [MASS/VOLU ME] IN SERUM OR PLASMA 24 mg/dL 8 - 26 11/09 Specimen Type: SERUM No comment entered. Ordering Provider: JAMILA BARRON Report Released Date/Time: Oct 31, 2024 06:34 PM Reporting Lab: [facility] [address] [address] Performing Lab: [facility] [address] [address] [facility] METABOLI C PANEL (fasting ) GLUCOSE [MASS/VOLU ME] IN SERUM OR PLASMA 102 mg/dL 65 - 100 11/09 H Specimen Type: SERUM No comment entered. Ordering Provider: JAMILA BARRON Report Released Date/Time: Oct 31, 2024 06:34 PM Reporting Lab: [facility] [place] [facility] [address] [address] Performing Lab: [facility] [place] [facility] [address] [address] [facility] BASIC METABOLI C PANEL (fasting ) SODIUM [MOLES/VOL UME] IN SERUM OR PLASMA 141 mmol/L 136 - 145 11/09 Specimen Type: SERUM No comment entered. Ordering Provider: JAMILA BARRON Report Released Date/Time: Oct 31, 2024 06:34 PM Reporting Lab: [facility] [place] [facility] [address] [address] Performing Lab: [facility] [place] [facility] [address] [address] [facility] BASIC METABOLI C PANEL (fasting ) POTASSIUM [MOLES/VOL UME] IN SERUM OR PLASMA 4.0 mmol/L 3.5 - 5.1 11/09 Specimen Type: SERUM No comment entered. Ordering Provider: JAMILA BARRON Report Released Date/Time: Oct 31, 2024 06:34 PM Reporting Lab: [facility] [place] [facility] [address] [address] Performing Lab: [facility] [place] [facility] [address] [address] [facility] BASIC METABOLI C PANEL (fasting ) CHLORIDE [MOLES/VOL UME] IN SERUM OR PLASMA 107 mmol/L 98 - 107 11/09 Specimen Type: SERUM No comment entered. Ordering Provider: JAMILA BARRON Report Released Date/Time: Oct 31, 2024 06:34 PM Reporting Lab: [facility] [place] [facility] [address] [address] Performing Lab: [facility] [place] [facility] [address] [address] [facility] C PANEL (fasting ) CARBON DIOXIDE, TOTAL [MOLES/VOL UME] IN SERUM OR PLASMA 23 meq/L 23 - 31 11/09 Specimen Type: SERUM No comment entered. Ordering Provider: JAMILA BARRON Report Released Date/Time: Oct 31, 2024 06:34 PM Reporting Lab: [facility] [place] [facility] [address] [address] Performing Lab: [facility] [place] [facility] [address] [address] [facility] PANEL (fasting ) CALCIUM [MASS/VOLU ME] IN SERUM OR PLASMA 9.1 mg/dL 8.8 - 10 11/09 Specimen Type: SERUM No comment entered. Ordering Provider: JAMILA BARRON Report Released Date/Time: Oct 31, 2024 06:34 PM Reporting Lab: [facility] [place] [address] [address] Performing Lab: [facility] [place] [address] [address] [facility] MET[facility]OLI C PANEL (fasting ) CREATININE [MASS/VOLU ME] IN SERUM OR PLASMA 0.81 mg/dL 0.72 - 1.25 11/09 Specimen Type: SERUM No comment entered. Ordering Provider: JAMILA BARRON Report Released Date/Time: Oct 31, 2024 06:34 PM Reporting Lab: [facility] [place] [address] [address] Performing Lab: [facility] [place] [address] [address] [facility] PANEL (fasting ) GLOMERULAR FILTRATION RATE/1.73 SQ M.PREDICTE D [VOLUME RATE/AREA] IN SERUM, PLASMA OR BLOOD BY CREATININE -BASED FORMULA (CKD-EPI 2020) 86 mL/min 60 11/09 Specimen Type: SERUM No comment entered. Ordering Provider: JAMILA BARRON Report Released Date/Time: Oct 31, 2024 06:34 PM Reporting Lab: [facility] [place] [address] [address] Performing Lab: [facility] [place] [address] [address] [facility] CBC AND DIFF (AUTO) LEUKOCYTES [#/VOLUME] IN BLOOD BY AUTOMATED COUNT 9.44 10*3/uL 4.50 - 11.00 11/09 Specimen Type: BLOOD No comment entered. Ordering Provider: JAMILA BARRON Report Released Date/Time: Oct 31, 2024 06:34 PM Reporting Lab: [facility] [address] [address] Performing Lab: [facility] [place] [facility] [address] [address] [facility] CBC AND DIFF (AUTO) ERYTHROCYT ES [#/VOLUME] IN BLOOD BY AUTOMATED COUNT 4.01 10*6/uL 4.23 - 5.66 11/09 L Specimen Type: BLOOD No comment entered. Ordering Provider: JAMILA BARRON Report Released Date/Time: Oct 31, 2024 06:34 PM Reporting Lab: [facility] [address] [facility] [address] Performing Lab: [facility] [address] [facility] [address] [facility] CBC AND DIFF (AUTO) HEMOGLOBIN [MASS/VOLU ME] IN BLOOD 13.0 g/dL 12.8 - 17 11/09 Specimen Type: BLOOD No comment entered. Ordering Provider: JAMILA BARRON Report Released Date/Time: Oct 31, 2024 06:34 PM Reporting Lab: [facility] [address] [facility] [address] Performing Lab: [facility] [address] [address] [facility] CBC AND DIFF (AUTO) HEMATOCRIT [VOLUME FRACTION] OF BLOOD BY AUTOMATED COUNT 37.5 39.2 - 50.4 11/09 L Specimen Type: BLOOD No comment entered. Ordering Provider: JAMILA BARRON Report Released Date/Time: Oct 31, 2024 06:34 PM Reporting Lab: [facility] [address] [address] Performing Lab: [facility] [address] [address] [facility] CBC AND DIFF (AUTO) MCV [ENTITIC VOLUME] BY AUTOMATED COUNT 93.5 fL 82 - 99 11/09 Specimen Type: BLOOD No comment entered. Ordering Provider: JAMILA BARRON Report Released Date/Time: Oct 31, 2024 06:34 PM Reporting Lab: [facility] [address] [address] Performing Lab: [facility] [place] [address] [facility] [address] [facility] CBC AND DIFF (AUTO) MCHC [MASS/VOLU ME] BY AUTOMATED COUNT 34.7 g/dL 30.8 - 35.1 11/09 Specimen Type: BLOOD No comment entered. Ordering Provider: JAMILA BARRON Report Released Date/Time: Oct 31, 2024 06:34 PM Reporting Lab: [facility] [place] [facility] [address] [facility] [address] Performing Lab: [facility] [place] [facility] [address] [facility] [address] [facility] CBC AND DIFF (AUTO) PLATELETS [#/VOLUME] IN BLOOD BY AUTOMATED COUNT 236 10*3/uL 140 - 360 11/09 Specimen Type: BLOOD No comment entered. Ordering Provider: JAMILA BARRON Report Released Date/Time: Oct 31, 2024 06:34 PM Reporting Lab: [facility] [place] [facility] [address] [facility] [address] Performing Lab: [facility] [place] [facility] [address] [facility] [address] [facility] CBC AND DIFF (AUTO) PLATELET MEAN VOLUME [ENTITIC VOLUME] IN BLOOD BY AUTOMATED COUNT 10.0 fL 9.2 - 12.4 11/09 Specimen Type: BLOOD No comment entered. Ordering Provider: JAMILA BARRON Report Released Date/Time: Oct 31, 2024 06:34 PM Reporting Lab: [facility] [address] [facility] [address] Performing Lab: [facility] [address] [facility] [address] [facility] CBC AND DIFF (AUTO) ERYTHROCYT E DISTRIBUTI ON WIDTH [RATIO] BY AUTOMATED COUNT 13.7 12.0 - 16.0 11/09 Specimen Type: BLOOD No comment entered. Ordering Provider: JAMILA BARRON Report Released Date/Time: Oct 31, 2024 06:34 PM Reporting Lab: [facility] [address] [facility] [address] Performing Lab: [facility] [address] [facility] [address] [facility] CBC AND DIFF (AUTO) MONOCYTES [#/VOLUME] IN BLOOD BY AUTOMATED COUNT 1.06 10*3/uL 0.30 - 1.10 11/09 Specimen Type: BLOOD No comment entered. Ordering Provider: JAMILA BARRON Report Released Date/Time: Oct 31, 2024 06:34 PM Reporting Lab: [facility] [address] [facility] [address] Performing Lab: [facility] [place] [facility] [address] [facility] [address] [facility] CBC AND DIFF (AUTO) MCH [ENTITIC MASS] BY AUTOMATED COUNT 32.4 pg 26.2 - 32.6 11/09 Specimen Type: BLOOD No comment entered. Ordering Provider: JAMILA BARRON Report Released Date/Time: Oct 31, 2024 06:34 PM Reporting Lab: [facility] [address] [facility] [address] Performing Lab: [facility] [address] [facility] [address] [facility] CBC AND DIFF (AUTO) NEUTROPHIL S/100 LEUKOCYTES IN BLOOD BY AUTOMATED COUNT 54.7 43.7 - 75.8 11/09 Specimen Type: BLOOD No comment entered. Ordering Provider: JAMILA BARRON Report Released Date/Time: Oct 31, 2024 06:34 PM Reporting Lab: [facility] [address] [facility] [address] Performing Lab: [facility] [address] [facility] [address] [facility] CBC AND DIFF (AUTO) LYMPHOCYTE S/100 LEUKOCYTES IN BLOOD BY AUTOMATED COUNT 23.8 14.0 - 42.3 11/09 Specimen Type: BLOOD No comment entered. Ordering Provider: JAMILA BARRON Report Released Date/Time: Oct 31, 2024 06:34 PM Reporting Lab: [facility] [address] [facility] [address] Performing Lab: [facility] [address] [facility] [address] [facility] CBC AND DIFF (AUTO) MONOCYTES/ 100 LEUKOCYTES IN BLOOD BY AUTOMATED COUNT 11.2 5.1 - 13.7 11/09 Specimen Type: BLOOD No comment entered. Ordering Provider: JAMILA BARRON Report Released Date/Time: Oct 31, 2024 06:34 PM Reporting Lab: [facility] [address] [facility] [address] Performing Lab: [facility] [address] [facility] [address] [facility] CBC AND DIFF (AUTO) EOSINOPHIL S/100 LEUKOCYTES IN BLOOD BY AUTOMATED COUNT 9.0 0.4 - 6.8 11/09 H Specimen Type: BLOOD No comment entered. Ordering Provider: JAMILA BARRON Report Released Date/Time: Oct 31, 2024 06:34 PM Reporting Lab: [facility] [address] [facility] [address] Performing Lab: [facility] [address] [facility] [address] [facility] CBC AND DIFF (AUTO) BASOPHILS/ 100 LEUKOCYTES IN BLOOD BY AUTOMATED COUNT 0.6 0.1 - 2.0 11/09 Specimen Type: BLOOD No comment entered. Ordering Provider: JAMILA BARRON Report Released Date/Time: Oct 31, 2024 06:34 PM Reporting Lab: [facility] [place] [facility] [address] [facility] [address] Performing Lab: [facility] [place] [facility] [address] [facility] [address] [facility] CBC AND DIFF (AUTO) NEUTROPHIL S [#/VOLUME] IN BLOOD BY AUTOMATED COUNT 5.15 10*3/uL 2.20 - 7.60 11/09 Specimen Type: BLOOD No comment entered. Ordering Provider: JAMILA BARRON Report Released Date/Time: Oct 31, 2024 06:34 PM Reporting Lab: [facility] [place] [address] [address] Performing Lab: [facility] [place] [facility] [address] [facility] [address] [facility] [place] CBC AND DIFF (AUTO) LYMPHOCYTE S [#/VOLUME] IN BLOOD BY AUTOMATED COUNT 2.25 10*3/uL 1.00 - 3.20 11/09 Specimen Type: BLOOD No comment entered. Ordering Provider: JAMILA BARRON Report Released Date/Time: Oct 31, 2024 06:34 PM Reporting Lab: [facility] [place] [facility] [address] [facility] [address] Performing Lab: [facility] [place] [facility] [address] [facility] [address] [facility] CBC AND DIFF (AUTO) EOSINOPHIL S [#/VOLUME] IN BLOOD BY AUTOMATED COUNT 0.85 10*3/uL 0.03 - 0.44 11/09 H Specimen Type: BLOOD No comment entered. Ordering Provider: JAMILA BARRON Report Released Date/Time: Oct 31, 2024 06:34 PM Reporting Lab: [facility] [place] [address]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 Encounter [id number] 10/21 [facility] En[facility] [id number] 11/02 [facility] Encounter [id number] 11/03 [facility] Out[facility]counter [id number] 11/05 [facility] Out[facility] Encounter [id number] 11/11 [facility] OFFICE O/P EST LOW 20 MIN [id number] Diagnos is: ICD-10- CM M25.572 Pain in left ankle and joints of left foot RICO BARRON RD 11/11 [facility] Social History Combined list of available smoking, tobacco, and other social history from Department of Defense and Veterans Affairs facilities. Social History Type Response Date Comment Sourc e Tobacco smoking status GAIS VA-TOBACCO USE FORMER CIGARETTES 11/11/2024 [facility] History of tobacco use VA-TOBACCO NEVER USED OTHER TYPE 11/11/2024 [facility] History of tobacco use VA-TOBACCO QUIT 15 YRS OR MORE 10/16/2023 [facility] History of tobacco use [facility]-TOBACCO FORMER USER 07/04/2022 [facility] History of tobacco use NSG NO TOBACCO USE PAST 30 DAYS 03/27/2022 [place] History of tobacco use NSG NO TOBACCO USE PAST 30 DAYS 03/05/2022 [place] History of tobacco use NSG NO TOBACCO USE PAST 30 DAYS 03/02/2022 [place] History of tobacco use UT-TOBACCO FORMER USER 06/28/2021 [facility] History of tobacco use UT-TOBACCO FORMER USER 05/26/2020 [facility] History of tobacco use UT-TOBACCO NEVER USED 05/23/2018 [facility] Plan of Care List of future care activities from Department [facility] facilities. Additional future care activities may be listed in the Assessment and Plan section. Date/Time Care Activity Care Activity Detail Facili ty 11/25/2024 AMBULATORY - MEDICINE AMBULATORY - MEDICI [facility] Advance Directives List of completed, amended, or rescinded Advance Directives on record at Department [facility] facilities. An actual copy of the Directive is not included. Date Advance Directive Provider Source 02/19/2022 ADVANCE DIRECTIVE JOCE CASTORENA [facility] 11/16/2020 ADVANCE DIRECTIVE BYRON BARRON [facility]
== END 2024-11-18 15:55 | disposition home or self-care (01) ==
LOC: HO.HOS 14:58
PROVIDERS: PCP Internal Medicine
DX: T84.7XXD Infection and inflammatory reaction due to other internal orthopedic prosthetic devices, implants and grafts, subsequent encounter (principal)
CPT/HCPCS: 99024

== ENCOUNTER → 2024-11-18 15:14 | Outpatient (BNV) | payer OTHER, SELFPAY | PROVIDERS: PCP Internal Medicine; Visit Provider Radiology Diagnostic Radiology | DX: M25.572 Pain in left ankle and joints of left foot (principal) | CPT/HCPCS: 73610 ==

== ENCOUNTER 2024-11-23 10:57 | Outpatient (AMB) | payer OTHER, SELFPAY ==
--- NOTE | 2024-11-23 11:00 | MHC.OFFVIS ---
Intake Visit Reasons: PO LT ankle I&D/SHRUTI 09/22/24 NE-wound check Intake Note: Reed is a 84 year old male who presents today with a talk walking boot/ knee scooter for a follow up of left left ankle I&D/SHRUTI 09/22/24 NE. Patient reports he is having mild pain on the lateral aspect of the ankle. Allergies niacin Allergy (Severe, Verified 11/23/24 11:06) Upset Stomach procaine [From Novocain] Allergy (Severe, Verified 11/23/24 11:06) I GET MEAN simvastatin Adverse Reaction (Severe, Verified 11/23/24 11:06) myopathy HPI HPI PO LT ankle I&D/SHRUTI 09/22/24 NE-wound check: Details: Reed is a 84 year old male who presents today with a talk walking boot/ knee scooter for a follow up of left left ankle I&D/SHRUTI 09/22/24 NE. Patient reports he is having mild pain on the lateral aspect of the ankle. Patient reports that his weight-bearing capacity has improved significantly from previous evaluations, and that when he is around the house he has no need for the knee scooter or any other [facility] Medical History Ankle fracture, lateral malleolus, closed Hyperlipidemia HTN (hypertension) CAD (coronary artery disease) Murmur, cardiac Chest pain COPD (chronic obstructive pulmonary disease) Asbestosis Surgical History S/P TAVR (transcatheter aortic valve replacement) Stented coronary artery Hx of cardiac catheterization Family History Father CAD (coronary artery disease) Mother No problems noted. Social History Household Members: None Housing: House Are you a primary direct care supervisor to a significant other at home: No Do you presently have visiting nurse or other home services: Yes Comment: pt refusing bed alarm; ongoing Patient Tobacco Use Status: Former Tobacco user Tobacco use type: Cigarette and Cigar Years Smoked: 14 years old e-Cigarette/Vaping Use: Former Use Second Hand Smoke Exposure: No service: No Review of Systems Const All systems reviewed & are unremarkable except as noted in HPI and below Physical Exam Vital Signs: Last Vital Signs Temp 97.8 F 09/24/24 03:15 Pulse 69 09/24/24 03:15 Resp 18 09/24/24 03:15 BP 167/77 H 09/24/24 03:15 Pulse Ox 93 09/24/24 03:15 O2 Del Method Room Air 09/24/24 03:15 O2 Flow Rate 2 09/23/24 07:35 BMI result Body Mass Index 28.2 Extrem Other: Incision site on left ankle clean, dry, intact There is a scab at the most distal aspect there does appear to be a divot in the skin in the more proximal aspect of the incision site, however there is no exposed bone and there is soft tissue coverage throughout the entire incision site. 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: Comment: He is doing well on Daptomycin Code(s): T84.7XXA - Infection and inflammatory reaction due to other internal orthopedic prosthetic devices, implants and grafts, initial encounter Category: Medical Plan 1.Status post I and D and removal of hardware of left ankle DOS09/22/2024 patient appears to be recovering well postoperatively Patient is educated about the typical recovery course Scraping last week appears to have encouraged good soft tissue growth into the sunken area of the incision site VNA order added for daily wet-to-dry dressing changes, as [facility] is already seeing the patient follow-up Saturday for wound check Coding Level of Care Code Est Pt Level 3 (77450) Diagnoses 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
--- OUTSIDE RECORDS SUMMARY | 2024-11-23 11:43 | XMS_ITS ---
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 Organization [facility] [place] Address [address] [place] [id number] Care Team Providers Care Materials Clerk Name Role Phone JOSUE SIMMONS Primary [...] Dec 19, 2007 MEDICAR E SUPPLEM E [id number] NYDIA HUERTA UL PATIENT [employer] MEDICARE SUPPLEMEN YORDAN Dec 19, 2007 MEDICAR E SUPPLEM E [id number] NYDIA HUERTA UL PATIENT [employer] [place] MEDICARE SUPPLEMEN YORDAN BANKE RS Dec 19, 2007 NONE [id number] NYDIA HUERTA UL PATIENT MEDICARE (WNR) MEDICARE (M) PART B Oct 13, 2006 PART B [id number] NYDIA HUERTA UL PATIENT MEDICARE (WNR) MEDICARE (M) PART B Oct 13, 2006 PART B [id number] NYDIA HUERTA UL PATIENT MEDICARE (WNR) MEDICARE (M) PART B Oct 13, 2006 PART B [id number] [phone] NYDIA HUERTA PATIENT MEDICARE (WNR) MEDICARE (M) PART B Oct 13, 2006 PART B [id number] NYDIA HUERTA PATIENT MEDICARE (WNR) MEDICARE (M) PART A Sep 13, 2003 PART A [id number] [phone] NYDIA HUERTA PATIENT MEDICARE (WNR) MEDICARE (M) PART A Sep 13, 2003 PART A [id number] NYDIA HUERTA PATIENT MEDICARE (WNR) MEDICARE (M) PART A Sep 13, 2003 PART A [id number] NYDIA HUERTA PATIENT MEDICARE (WNR) MEDICARE (M) PART A Sep 13, 2003 PART A [id number] [phone] NYDIA HUERTA PATIENT Selected Encounter This section includes the information on record at [place] for the Encounter. Date/Time Encounter Type Encounter Description Reason Pro vider Source November 20, 2024 10:42 PM Outpatient Encounter PRIMARY CARE/MEDICINE [facility] Encounter [...] 25, 2024 08:00 AM AMBULATORY - MEDICINE [facility] [place] [facility] Jan 13, 2025 10:00 AM AMBULATORY MEDICINE [facility] [place] [facility] May 12, 2025 10:00 AM AMBULATORY MEDICINE [facility] [place] [facility] Active, Pending, and Scheduled Orders This section [...] November 18, 2024 10:32 AM Consult Order [facility] [employer] Tender[facility] Choice [place] [facility] [place] [facility] November 19, 2024 11:40 AM Consult Order [facility] [employer] [place] [employer] Tender's [facility] Lab Results: +/- 30 days of [...] Type Comment Nov 11, 2024 03:10 PM [facility] MICROSCOPIC AUTOMATED, URINE URINE Specimen T ype: URINE Comment: If Glucose = >500 and Ketones are positive, please alert the Physician. Ordering Provider: JOSUE SIMMONS Report Released Date/Time: Nov 11, 2024 03:09 PM Reporting Lab: [facility] [address] [facility] [address] Performing Lab: [facility] [address] [facility] [address] UA WBC 0-5 /[HPF] 0-5 UA BACTERIA 1+ /[HPF] NoneObs UA MUCUS FEW /[LPF] Trace UA RBC 3-5 /[HPF] 0-3 Nov 11, 2024 03:10 PM [facility] URINALYSIS CLEAN CATCH URINE Specimen Type: U RINE Comment: If Glucose = >500 and Ketones are positive, please alert the Physician. Ordering Provider: JOSUE SIMMONS Report Released Date/Time: Nov 11, 2024 03:09 PM Reporting Lab: [facility] [address] [facility] [address] Performing Lab: [address] [address] UA COLOR Yellow Yellow UA APPEARANCE Clear Clear UA GLUCOSE Normal mg/dL Negative UA KETONES NEGATIVE mg/dL Negative UA BLOOD NEGATIVE mg/dL Negative UA PROTEIN 30 mg/dL Negative UA NITRITE NEGATIVE mg/dL Negative UA BILIRUBIN NEGATIVE mg/dL Negative UA SPECIFIC GRAVITY 1.030 H 1.016-1.022 UA pH 6.0 5.0-9.0 UA UROBILINOGEN Normal mg/dL <2.0 UA LEUKOCYTE NEGATIVE Negative Nov 09, 2024 07:33 AM [facility] BASIC METABOLIC PANEL (fasting) SERUM Specime n Type: SERUM No comment entered. Ordering Provider: JOSUE SIMMONS Report Released Date/Time: Oct 31, 2024 06:34 PM Reporting Lab: [address] [address] Performing Lab: [address] [address] UREA NITROGEN 24 mg/dL 8-26 GLUCOSE 102 mg/dL H 65-100 SODIUM 141 mmol/L 136-145 POTASSIUM 4.0 mmol/L 3.5-5.1 CHLORIDE 107 mmol/L 98-107 CO2 23 meq/L 23-31 CALCIUM 9.1 mg/dL 8.8-10 CREATININE, Serum 0.81 mg/dL 0.72-1.25 eGFR(CKD-EPI 2020) 86 mL/min >60 Nov 09, 2024 07:33 AM [facility] LIVER FUNCTION SERUM Specimen Type: SERUM No comment entered. Ordering Provider: JOSUE SIMMONS Report Released Date/Time: Oct 31, 2024 06:34 PM Reporting Lab: [address] [address] Performing Lab: [address] [address] PROTEIN,TOTAL 7.0 g/dL 6.4-8.3 ALBUMIN 3.4 g/dL 3.2-4.6 ALKALINE PHOSPHATASE 121 U/L 40-150 AST 42 U/L H 5-34 ALT 25 U/L 0-55 BILIRUBIN, TOTAL 0.5 mg/dL 0.2-1.2 Nov 09, 2024 07:33 AM [facility] CBC AND DIFF (AUTO) BLOOD Specimen Type: BLOO D No comment entered. Ordering Provider: JOSUE SIMMONS Report Released Date/Time: Oct 31, 2024 06:34 PM Reporting Lab: [facility] [address] [facility] [address] Performing Lab: [facility] [address] [facility] [address] WBC 9.44 10*3/uL 4.50-11.00 RBC 4.01 10*6/uL [...] 10*3/uL 0.00-0.00 Nov 09, 2024 07:33 AM [facility] LIPID PANEL FASTING SERUM Specimen Type: SERU M No comment entered. Ordering Provider: JOSUE SIMMONS Report Released Date/Time: Oct 31, 2024 06:34 PM Reporting Lab: [facility] [address] [facility] [address] Performing Lab: [facility] [address] [facility] [address] CHOLESTEROL 130 mg/dL TRIGLYCERIDE 93 mg/dL 0-150 LDL calculated 74 mg/dL 0-129 CHOL/HDL 3.5 HDL CHOLESTEROL 37 mg/dL L >40 Nov 09, 2024 07:33 AM [facility] TSH SERUM Specimen Type: SERUM No comment entered. Ordering Provider: JOSUE SIMMONS Report Released Date/Time: Oct 31, 2024 06:34 PM Reporting Lab: [address] [address] Performing Lab: [address] [address] TSH 3.49 u[IU]/mL 0.35-4.94 Nov 09, 2024 07:33 AM [facility] MICROSCOPIC AUTOMATED, URINE URINE Specimen T ype: URINE Comment: If Glucose = >500 and Ketones are positive, please alert the Physician. Ordering Provider: JOSUE SIMMONS Report Released Date/Time: Oct 31, 2024 06:34 PM Reporting Lab: [address] [address] Performing Lab: [address] [address] UA MUCUS FEW /[LPF] Trace UA HYALINE CASTS 2-4 /[LPF] 0-2 UA CALCIUM OXALATE CRYSTALS MANY /[HPF] Not Established UA RBC 6-10 /[HPF] H 0-3 UA SQUAMOUS EPITH FEW /[HPF] Nov 09, 2024 07:33 AM [facility] URINALYSIS CLEAN CATCH URINE Specimen Type: U RINE Comment: If Glucose = >500 and Ketones are positive, please alert the Physician. Ordering Provider: JOSUE SIMMONS Report Released Date/Time: Oct 31, 2024 06:34 PM Reporting Lab: [address] [address] Performing Lab: [facility] [place] [address] [facility] [address] UA COLOR Yellow Yellow UA APPEARANCE Clear [...] ity Nov 11, 2024 02:30 PM VA-TOBACCO NEVER U SED OTHER TYPE [facility] Tobacco Use History This section includes a history of the smoking, or tobacco-related health factors, that were collected on or before the date of the Encounter. The data comes from the [place] facility where the Encounter took place. Date/Time Smoking Status/Tobacco Use Comment F acility Nov 11, 2024 02:30 PM VA-TOBACCO USE FOR ROSANA CIGARETTES [facility] Oct 16, 2023 01:30 PM [facility] Oct 16, 2023 01:30 PM VA-TOBACCO QUIT 15 YRS OR MORE [facility] Jul 04, 2022 11:00 AM VA-TOBACCO FORMER USER [facility] Jul 04, 2022 11:00 AM VA-TOBACCO QUIT 15 YRS OR MORE [facility] Jun 28, 2021 10:30 AM VA-TOBACCO FORMER USER [facility] Jun 28, 2021 10:30 AM VA-TOBACCO QUIT 15 YRS OR MORE [facility] May 26, 2020 08:00 AM [facility] May 26, 2020 08:00 AM [place] QUIT 15 YRS OR MORE [facility] May 23, 2018 11:21 AM [place] NEVER USED [facility] Advance Directives: All historical and current Section [...] Source Feb 19, 2022 ADVANCE DIRECTIVE JOCE ACSTORENA [facility] November 16, 2020 ADVANCE DIRECTIVE JOSUE SIMMONS [facility] Pathology Reports: +/- 30 days of the [...] the Encounter. The data comes from all [place] treatment facilities. Date/Time Pathology Report Provider Source Nov 11, 2024 03:10 PM LR MICROBIOLOGY RE PORT: Reporting Lab: [facility] [CLIA# [id number]] [address] [place] [id number] Accession [UID]: [id number] [[id number]] Received: Nov 11, 2024@15:10 Collection sample: URINE CLEAN CATCH Collection date: Nov 11, 2024 15:10 Site/Specimen: URINE Provider: JOSUE SIMMONS Test(s) ordered: URINE CULTURE(JIN).......... completed: November 16, 2024 10:31 * BACTERIOLOGY FINAL REPORT => November 16, 2024 10:31 TECH CODE: [id number] Bacteriology Remark(s): NO GROWTH IN 24 HOURS, FINAL REPORT TO FOLLOW. FINAL AEROBIC REPORT: NO GROWTH =--=--=--=--=--=--=--=-- =--=--=--=--=--=--=--=-- =--=--=--=--=--=--=--=-- =--=-- Performing Laboratory: Bacteriology Report Performed By: [facility] [CLIA# [id number]] [address] [place] [address] KAVITHA TREJO [facility] Encounter Notes: All associated encounter notes This section contains the clinical notes associated to the Encounter. Date/Time Encounter Note(s) Provider Source November 20, 2024 10:42 PM NONVA CONSULT: LOCAL TITLE: MD/OUTSIDE CONSULT REPORT SUMMARY STANDARD TITLE: NONVA CONSULT DATE OF NOTE: NOVEMBER 20, 2024@22:42 ENTRY DATE: NOVEMBER 20, 2024@22:42:41 AUTHOR: JOSUE SIMMONS EXP COSIGNER: URGENCY: STATUS: [facility] 10-30-2024 admitted 11-06-24 discharged home Infected RUE PICC line PICC line discontinued Treated with levofloxacin then cefuroxime 500 mg p.o. every 12 hour x 14 days Cellulitis resolved Infected left ankle fracture Daptomycin IV discontinued 11-06-24 Doxycycline 100 mg p.o. twice daily x 1 month // Josue Simmons MD Staff Physician Signed: 11/20/2024 22:43 JOSUE SIMMONS [facility]
--- OUTSIDE RECORDS SUMMARY | 2024-11-23 11:43 | XMS_ITS | Encounter Summary ---
Author Organization [facility] Address [address] [place] [address] Care Team Providers Care Mechanical [employer] Name Role Phone Adam Noonan MD Primary Care Provider Unava ilable Reason for Visit * Reason Onset Date Comments refill request 02/05/2019 Encounter Details Date Type Department Care Team Description 02/05/2019 Telephone Pulmonology - [place] [address] [facility] [address] [place] [address] Eric Tucker MD refill request [...] EDT Yes please fax script printed to [place] pharmacy [place], [place] * Telephone Encounter - Xenia Bernabe - 02/05/2019 1:47 PM EDT Patient calling states was seen on January 19 was told pro air was suppose to be sent over to [facility] pharmacy and patient still has yet to rcv it and needs young fax over is [phone] documented in this encounter Plan of Treatment Not on file documented as of this encounter Visit Diagnoses Not on filedocumented in this encounter Care Teams [employer] Relationship Specialty Start Date End Date Adam Noonan MD PCP - General Internal Medicine 11/19/17 documented as of this encounter
--- OUTSIDE RECORDS SUMMARY | 2024-11-23 11:43 | XMS_ITS ---
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 Organization [facility] [place] Address [address] [place] [address] Care Team Providers Care Call Center Specialist Name Role Phone JOSUE SIMMONS Primary Care [...] Dec 19, 2007 MEDICAR E SUPPLEM E [id number] [phone] NYDIA HUERTA UL PATIENT [employer] MEDICARE SUPPLEMEN YORDAN Dec 19, 2007 MEDICAR E SUPPLEM E [id number] [phone] NYDIA HUERTA UL PATIENT [employer] CO MEDICARE SUPPLEMEN YORDAN BANKE RS Dec 19, 2007 NONE [id number] NYDIA HUERTA UL PATIENT MEDICARE (WNR) MEDICARE (M) PART B Oct 13, 2006 PART B [id number] NYDIA HUERTA UL PATIENT MEDICARE (WNR) MEDICARE (M) PART B Oct 13, 2006 PART B [id number] DOMINA,PA UL PATIENT MEDICARE (WNR) MEDICARE (M) PART B Oct 13, 2006 PART B [id number] [phone] NYDIA HUERTA PATIENT MEDICARE (WNR) MEDICARE (M) PART B Oct 13, 2006 PART B [id number] NYDIA HUERTA PATIENT MEDICARE (WNR) MEDICARE (M) PART A Sep 13, 2003 PART A [id number] NYDIA HUERTA PATIENT MEDICARE (WNR) MEDICARE (M) PART A Sep 13, 2003 PART A [id number] [phone] NYDIA HUERTA PATIENT MEDICARE (WNR) MEDICARE (M) PART A Sep 13, 2003 PART A [id number] [phone] NYDIA HUERTA PATIENT MEDICARE (WNR) MEDICARE (M) PART A Sep 13, 2003 PART A [id number] NYDIA HUERTA PATIENT Selected Encounter This section includes the information on record at [place] for the Encounter. Date/Time Encounter Type Encounter Description Reason Pro vider Source November 19, 2024 11:36 AM Outpatient Encounter PRIMARY CARE/MEDICINE IHE Encounter [...] 25, 2024 08:00 AM AMBULATORY - MEDICINE [facility] [place] [facility] Jan 13, 2025 10:00 AM AMBULATORY MEDICINE [facility] [facility] May 12, 2025 10:00 AM AMBULATORY MEDICINE [facility] [place] [facility] Active, Pending, and Scheduled Orders [...] November 18, 2024 10:32 AM Consult Order [facility] Cons Simplex Operator's Choice [place] [facility] [place] [facility] November 19, 2024 11:40 AM Consult Order [facility] Cons Simplex [facility] Lab Results: +/- 30 days of the encounter This section includes the Chemistry and Hematology Lab Results on record with [place] for the patient. Radiology Reports and Pathology Reports are provided separately, in subsequent sections. Lab Results This section contains the Chemistry/Hematology Results that were resulted 30 days before or 30 daysafter the date of the Encounter. Date/Time Source Result Type Result - Unit Interpretation Reference Range Specimen Type Comment Nov 11, 2024 03:10 PM [facility] MICROSCOPIC AUTOMATED, URINE URINE Specimen T ype: URINE Comment: If Glucose = >500 and Ketones are positive, please alert the Physician. Ordering Provider: JOSUE SIMMONS Report Released Date/Time: Nov 11, 2024 03:09 PM Reporting Lab: [facility] [address] [address] Performing Lab: [facility] [address] [address] UA WBC 0-5 /[HPF] 0-5 UA BACTERIA 1+ /[HPF] NoneObs UA MUCUS FEW /[LPF] Trace UA RBC 3-5 /[HPF] 0-3 Nov 11, 2024 03:10 PM [facility] URINALYSIS CLEAN CATCH URINE Specimen Type: U RINE Comment: If Glucose = >500 and Ketones are positive, please alert the Physician. Ordering Provider: JOSUE SIMMONS Report Released Date/Time: Nov 11, 2024 03:09 PM Reporting Lab: [facility] [address] [address] Performing Lab: [address] [address] UA COLOR Yellow Yellow UA APPEARANCE Clear Clear UA GLUCOSE Normal mg/dL Negative UA KETONES NEGATIVE mg/dL Negative UA BLOOD NEGATIVE mg/dL Negative UA PROTEIN 30 mg/dL Negative UA NITRITE NEGATIVE mg/dL Negative UA BILIRUBIN NEGATIVE mg/dL Negative UA SPECIFIC GRAVITY 1.030 H 1.016-1.022 UA pH 6.0 5.0-9.0 UA UROBILINOGEN Normal mg/dL <2.0 UA LEUKOCYTE NEGATIVE Negative Nov 09, 2024 07:33 AM [facility] BASIC METABOLIC PANEL (fasting) SERUM Specime n Type: SERUM No comment entered. Ordering Provider: JOSUE SIMMONS Report Released Date/Time: Oct 31, 2024 06:34 PM Reporting Lab: [address] [address] Performing Lab: [address] [address] UREA NITROGEN 24 mg/dL 8-26 GLUCOSE 102 mg/dL H 65-100 SODIUM 141 mmol/L 136-145 POTASSIUM 4.0 mmol/L 3.5-5.1 CHLORIDE 107 mmol/L 98-107 CO2 23 meq/L 23-31 CALCIUM 9.1 mg/dL 8.8-10 CREATININE, Serum 0.81 mg/dL 0.72-1.25 eGFR(CKD-EPI 2020) 86 mL/min >60 Nov 09, 2024 07:33 AM [facility] LIVER FUNCTION SERUM Specimen Type: SERUM No comment entered. Ordering Provider: JOSUE SIMMONS Report Released Date/Time: Oct 31, 2024 06:34 PM Reporting Lab: [facility] [address] [address] Performing Lab: [address] [address] PROTEIN,TOTAL 7.0 g/dL 6.4-8.3 ALBUMIN 3.4 g/dL 3.2-4.6 ALKALINE PHOSPHATASE 121 U/L 40-150 AST 42 U/L H 5-34 ALT 25 U/L 0-55 BILIRUBIN, TOTAL 0.5 mg/dL 0.2-1.2 Nov 09, 2024 07:33 AM [facility] LIPID PANEL FASTING SERUM Specimen Type: SERU M No comment entered. Ordering Provider: JOSUE SIMMONS Report Released Date/Time: Oct 31, 2024 06:34 PM Reporting Lab[facility] [address] [address] Performing Lab: [facility] [address] [address] CHOLESTEROL 130 mg/dL TRIGLYCERIDE 93 mg/dL 0-150 LDL calculated 74 mg/dL 0-129 CHOL/HDL 3.5 HDL CHOLESTEROL 37 mg/dL L >40 Nov 09, 2024 07:33 AM [facility] TSH SERUM Specimen Type: SERUM No comment entered. Ordering Provider: JOSUE SIMMONS Report Released Date/Time: Oct 31, 2024 06:34 PM Reporting Lab: [facility] [address] [address] Performing Lab: [facility] [address] [address] TSH 3.49 u[IU]/mL 0.35-4.94 Nov 09, 2024 07:33 AM [facility] CBC AND DIFF (AUTO) BLOOD Specimen Type: BLOO D No comment entered. Ordering Provider: JOSUE SIMMONS Report Released Date/Time: Oct 31, 2024 06:34 PM Reporting Lab: [facility] [address] [address] Performing Lab: [facility] [address] [address] WBC 9.44 10*3/uL 4.50-11.00 RBC 4.01 10*6/uL [...] 10*3/uL 0.00-0.00 Nov 09, 2024 07:33 AM [facility] [employer] [facility] MICROSCOPIC AUTOMATED, URINE URINE Specimen T ype: URINE Comment: If Glucose = >500 and Ketones are positive, please alert the Physician. Ordering Provider: JOSUE SIMMONS Report Released Date/Time: Oct 31, 2024 06:34 PM Reporting Lab: [facility] [employer] [address] Performing Lab: [facility] [employer] [address] UA MUCUS FEW /[LPF] Trace UA HYALINE CASTS 2-4 /[LPF] 0-2 UA CALCIUM OXALATE CRYSTALS MANY /[HPF] Not Established UA RBC 6-10 /[HPF] H 0-3 UA SQUAMOUS EPITH FEW /[HPF] Nov 09, 2024 07:33 AM [facility] [employer] [facility] URINALYSIS CLEAN CATCH URINE Specimen Type: U RINE Comment: If Glucose = >500 and Ketones are positive, please alert the Physician. Ordering Provider: JOSUE SIMMONS Report Released Date/Time: Oct 31, 2024 06:34 PM Reporting Lab: [facility] [employer] [address] Performing Lab: [facility] [place] [facility] [address] [facility] [address] UA COLOR Yellow Yellow UA APPEARANCE Clear [...] 02:30 PM VA-TOBACCO USE FOR ROSANA CIGARETTES [facility] WSN [facility] Tobacco Use History This section includes a history of the smoking, or tobacco-related health factors, that were collected on or before the date of the Encounter. The data comes from the [place] facility where the Encounter took place. Date/Time Smoking Status/Tobacco Use Comment F acility Nov 11, 2024 02:30 PM VA-TOBACCO USE FOR ROSANA CIGARETTES [facility] [place] [facility] Oct 16, 2023 01:30 PM VA-TOBACCO FORMER USER [facility] [place] [facility] Oct 16, 2023 01:30 PM VA-TOBACCO QUIT 15 YRS OR MORE [facility] [facility] Jul 04, 2022 11:00 AM VA-TOBACCO FORMER USER [facility] [place] [facility] Jul 04, 2022 11:00 AM VA-TOBACCO QUIT 15 YRS OR MORE [facility] [place] [facility] Jun 28, 2021 10:30 AM VA-TOBACCO FORMER USER [facility] [facility] Jun 28, 2021 10:30 AM VA-TOBACCO QUIT 15 YRS OR MORE [facility] [place] [facility] May 26, 2020 08:00 AM VA-TOBACCO FORMER USER [facility] [place] [facility] May 26, 2020 08:00 AM MS-TOBACCO QUIT 15 YRS OR MORE [facility] May 23, 2018 11:21 AM MS-TOBACCO NEVER USED [facility] Advance Directives: All historical and current [...] Feb 19, 2022 ADVANCE DIRECTIVE JOCE CASTORENA [facility] November 16, 2020 ADVANCE DIRECTIVE JOSUE SIMMONS [facility] Pathology Reports: +/- 30 days of [...] the Encounter. The data comes from all [place] treatment facilities. Date/Time Pathology Report Provider Source Nov 11, 2024 03:10 PM LR MICROBIOLOGY RE PORT: Reporting Lab: [facility] [CLIA# [id number]] [address] [place] [address] Accession [UID]: [id number] [[id number]] Received: Nov 11, 2024@15:10 Collection sample: URINE CLEAN CATCH Collection date: Nov 11, 2024 15:10 Site/Specimen: URINE Provider: JOSUE SIMMONS Test(s) ordered: URINE CULTURE(JIN).......... completed: November 16, 2024 10:31 * BACTERIOLOGY FINAL REPORT => November 16, 2024 10:31 TECH CODE: [id number] Bacteriology Remark(s): NO GROWTH IN 24 HOURS, FINAL REPORT TO FOLLOW. FINAL AEROBIC REPORT: NO GROWTH =--=--=--=--=--=--=--=-- =--=--=--=--=--=--=--=-- =--=--=--=--=--=--=--=-- =--=-- Performing Laboratory: Bacteriology Report Performed By: [facility] [CLIA# [id number]] [address] [place] [address] KAVITHA TREJO [facility] Encounter Notes: All associated encounter notes This section contains the clinical notes associated to the Encounter. Date/Time Encounter Note(s) Provider Source November 19, 2024 11:36 AM PRIMARY CARE TELEP ANTONIO ENCOUNTER NOTE: LOCAL TITLE: TELEPHONE NOTE/PRIMARY CARE STANDARD TITLE: PRIMARY CARE TELEPHONE ENCOUNTER NOTE DATE OF NOTE: NOVEMBER 19, 2024@11:36 ENTRY DATE: NOVEMBER 19, 2024@11:36:25 AUTHOR: JOSUE SIMMONS EXP COSIGNER: URGENCY: STATUS: COMPLETED Review of recent testing WBC/HPF: 0-5 RBC/HPF: 3-5 BACTERIA: 1+ MUCUS: FEW Color, Urine (AX 4280): Yellow Appearance, Urine (AX 4280): Clear Glucose, Urine (AX 4280): Normal Ketones, Urine (AX 4280): NEGATIVE Blood, Urine (AX 4280): NEGATIVE Protein, Urine (AX 4280): 30 Nitrite, Urine (AX 4280): NEGATIVE Bilirubin, Urine (AX 4280): NEGATIVE Specific [place], (AX 4280): 1.030 H pH, Urine (HC4747): 6.0 Urobilinogen, Urine (AX 4280): Normal Leukocyte Esterase, (AX 4280): NEGATIVE RBC/HPF: 6-10 H MUCUS: FEW HYALINE/CASTS/LPF: 2-4 CA++ OXALATE CRYSTALS: MANY SQUAMOUS EPITHELIAL: FEW Color, Urine (AX 4280): Yellow Appearance, Urine (AX 4280): Clear Glucose, Urine (AX 4280): Normal Ketones, Urine (AX 4280): NEGATIVE Blood, Urine (AX 4280): SMALL Protein, Urine (AX 4280): 20 Nitrite, Urine (AX 4280): NEGATIVE Bilirubin, Urine (AX 4280): NEGATIVE Specific [place], (AX 4280): 1.030 H pH, Urine (WA5510): 6.0 Urobilinogen, Urine (AX 4280): Normal Leukocyte [...] 32.4 Neut %: 54.7 Lymph %: 23.8 Union %: 11.2 Eos %: 9.0 H Baso %: 0.6 Neut, Abs: 5.15 Lymph, Abs: 2.25 Union, Abs: 1.06 Eos, Abs: 0.85 H Baso, Abs: 0.06 Immature Granulocytes %: 0.7 Immature Granulocytes, Abs: 0.07 H NRBC%: 0.0 NRBC#: 0.00 Discussed with patient for 10 minutes Assessment and plan: 1. Microscopic hematuria: Persistent hematuria. Urine culture shows no infection. Last kidney stone was 25 years ago. Discussed possibility of cancer because of history of tobacco use and asbestosis. Patient's daughter works for [employer]. Plan: Urology consult /es/ Josue Simmons MD Staff Physician Signed: 11/19/2024 11:38 JOSUE SIMMONS [facility]
--- OUTSIDE RECORDS SUMMARY | 2024-11-23 11:43 | XMS_ITS ---
Author Organization [facility] Address [address] [place] [address] Care Team Providers Care Legal Instruments Examiner Name Role Phone Josue Simmons MD Primary Care Provider UnavailLyn Main [phone] REASON FOR VISIT 04/23/24 Encounters Encounter Location Date Provider Diagnosis [facility] [address] [place] [address] 04/02/2024 Lyn Lund Plan Of Treatment No Information Progress Notes * Reed MALLORY HDOB:1940 (83 yo M)Acc No.[id number]:04/02/2024 Patient:?Reed Mallory :1940???Age:83 Y???Sex:Male Address:[address] [place] [address] * true * Date:? Generated for Printi ng/Faxing/eTransmitting on:?11/23/2024 06:24 AM EDT
--- OUTSIDE RECORDS SUMMARY | 2024-11-23 11:43 | XMS_ITS | Encounter Summary ---
Author Organization [facility] Address [address] [place] [address] Care Team Providers Care Digital Media Intern Name Role Phone Adam Noonan MD Primary Care Provider Unava ilable Encounter Details Date Type Department Care Team Description 11/18/2018 Release of Information Medical Records [address] [place] [id number] Abstract, Provider Social History Tobacco Use Types [...] on filedocumented in this encounter Care Teams Digital Media Intern Relationship Specialty Start Date End Date Adam Noonan MD PCP - General Internal Medicine 11/19/17 documented as of this encounter
--- OUTSIDE RECORDS SUMMARY | 2024-11-23 11:43 | XMS_ITS | Patient Health Record ---
Author Organization [facility] Address [address] [place] [address] Care Team Providers Care Asphalt Plant Worker Name Role Phone Josue Simmons MD Primary Care Provider Lyn Aquino Unavailable [phone] Allergies Allergen (clinical drug ingredient) Drug/Non Drug [...] primary osteoarthritis of the ankle and/or foot (758452813) Primary osteoarthrit is, right ankle and foot (M19.071) Active confirmed Encounters Encounter Location Date Provider Diagnosis [facility] [place] [address] [facility] [place] [address] 03/09/2024 Lyn Lund [facility] [address] [facility] [place] [address] 03/12/2024 Lyn Lund [facility] [place] [address] [facility] [place] [address] 04/02/2024 Lyn Lund Plan Of Treatment Pending Test Test Name Order Date X ray : Foot, right 3V 01/20/2015 X ray : Ankle, right 3V 03/04/2017 Insurance Providers Payer Name Payer Address Payer Phone Subscriber Number Group Number Insured Name Patient Relationship to Insured Coverage Start Date Coverage End Date Medicare National [employer] [address] [place] [address] [id number] Reed Mallory Self - patient is the insured [employer] [address] [place] [address] Reed Mallory Self - patient is the [...]
--- OUTSIDE RECORDS SUMMARY | 2024-11-23 11:44 | XMS_ITS | Encounter Summary ---
Author Organization [facility] Address [address] [place] [address] Care Team Providers Care Flag Decorator Name Role Phone [place] Primary Care Provider Cecelia Granados, Pcp Primary Care Provider Adam Rothman MD Primary Care Provider Unava ilable Encounter Details Date Type Department Care Team Description 07/22/2015 Hospital Medical Records [address] [place], [place] [id number] [place] [address] Social History Tobacco Use Types Packs/Day Years [...] on filedocumented in this encounter Care Teams Flag Decorator Relationship Specialty Start Date End Date [place] [place] PCP - General Internal Medicine 07/15/11 11/14/17 Roberta, Pcp PCP - General Internal Medicine 11/15/17 11/18/17 Adam Noonan MD PCP - General Internal Medicine 11/19/17 documented as of this encounter
--- OUTSIDE RECORDS SUMMARY | 2024-11-23 11:44 | XMS_ITS ---
Author Organization [facility] Address [address] [place] [address] Care Team Providers Care Trimmer Hand Name Role Phone Josue Simmons MD Primary Care Provider Unavailab melinda Lyn Lund Unavailable [phone] Allergies Allergen (clinical drug ingredient) Drug/Non Drug [...] Date Provider Diagnosis [facility] [address] [place] [address] 04/23/2024 Lyn Lund Plan Of Treatment No Information Progress Notes * Reed MALLORY HDOB:1940 (84 yo M)Acc No.[id number]:04/23/2024 Progress Notes Patient:Reed VANCE Provider:?Lyn Lund DPM :1940???Age:83 Y???Sex:Male Chu e:04/23/2024 Address:[address] [place], [place] [id number] Pcp:Josue Simmons MD Subjective: * Chief Complaints: [...] Lund DPM Date:?2023 Generated for Yokasta palacios/Ilda/Sunil on:?11/23/2024 06:24 AM EDT
--- OUTSIDE RECORDS SUMMARY | 2024-11-23 11:44 | XMS_ITS ---
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 Generated for Printi ng/Faxing/eTransmitting on:?11/23/2024 06:24 AM EDT
--- OUTSIDE RECORDS SUMMARY | 2024-11-23 11:44 | XMS_ITS | Continuity of Care Document ---
Author Name [facility] Organization [facility] Care Team Providers Care [employer]ric[employer] Supervisor Name Role Phone [facility] Unavailable Unavailable Problems Combined list of problems from Department of Defense and Veterans Affairs facilities. It does not include entries that were removed or entered in error. Problem Status Onset Date Problem Type Date of Resolution Comments Source Arthralgia of left ankle Active 025 Condition Nov 11, 2024 Entered By: BYRON BARRON Comment: postop infection [facility] Microscopic hematuria Active 025 Condition November 19, 2024 Entered By: BYRON BARRON Comment: Referred to urology [facility] Chronic dermatitis Active 023 Condition Oct 05, 2022 Entered By: BYORN BARRON Comment: referred to dermatology [facility] Chest Pain (SCT 37504431) Active 022 Condition Jan 02, 2022 Entered By: BYRON BARRON Comment: ordered stress test [facility] COPD - Chronic Obstructive Pulmonary Disease (SCT 49874128) Active 022 Condition Dec 28, 2021 Entered By: BYRON BARRON Comment: on inhalers [facility] Cataract Active Condition Oct 12, 2020 Entered By: BYRON BARRON Comment: referred for surgery [facility] HTN - Hypertension (SCT [id number]) Active 021 Condition Oct 21, 2020 Entered By: BYRON BARRON Comment: treated witn medication [facility] Hypercholesterolemia (SCT 15597596) Active 021 Condition Oct 21, 2020 Entered [...] of skin Active Diagnosis [facility] Diagnosis: ICD-10-CM Z13.89 Encounter for screening for other disorder Active Diagnosis [facility] Diagnosis: ICD-10-CM R21 Rash and other nonspecific skin eruption Active Diagnosis [facility] Diagnosis: ICD-10-CM Z23 Encounter for immunization Active Diagnosis [facility] Diagnosis: ICD-10-CM H67.3 Otitis media in diseases classified elsewhere, bilateral [facility] Medications Combined list of outpatient medications [...] WITH GRAPEFRU IT JUICE ORAL ACTIVE 12/24/2024 [id number] MLAPADandy,TH EODORE K 2024 90 [facility] AMOXICILLIN TRIHYDRATE 875MG/CLAVU LANATE K 125MG TAB TAKE 1 TABLET BY MOUTH TWICE DAILY FOR INFECTIO N ORAL 11/15/2023 [id number] 4 MAUREEN BARRON PAIGE D 2023 20 [facility] ASPIRIN 81MG TAB,CHEWABL E CHEW ONE TABLET BY MOUTH ONCE DAILY ORAL ACTIVE JANINE HAMMOND R 2021 [facility] ATORVASTATI N CA 80MG TAB TAKE ONE TABLET BY MOUTH AT BEDTIME ORAL DISCONT INUED BY PROVIDE R 06/26/2025 [id number] 5 MAUREEN BARRON PAIGE D 2023 90 [facility] [place] ATORVASTATI N CA 80MG TAB TAKE ONE TABLET BY MOUTH AT BEDTIME ORAL DISCONT INUED 06/19/2024 [id number] 4 [address]OHAMUD ARGUETA AV 2022 90 [facility] [place] CARBOXYMETH YLCELLULOSE NA 0.5% SOLN,OPH INSTILL 1 DROP INTO EACH EYE FOUR TIMES A DAY FOR DRY EYE OPHTHA LMIC ACTIVE 09/02/2025 [id number] 5 OSBALDO CALDERON EY J 2024 45 [facility] CEPHALEXIN 500MG CAP TAKE ONE CAPSULE BY MOUTH EVERY 8 HOURS FOR INFECTIO N ORAL 04/04/2024 [id number] MAMTA STERN EMIL MARTÍNEZ 2023 21 [facility] DOCUSATE NA 100MG CAP TAKE ONE CAPSULE BY MOUTH TWICE DAILY FOR 7 DAYS TO SOFTEN STOOL ORAL 10/25/2024 [id number] 5 MISA CANTUÁngela NERI 2024 14 [facility] DOXYCYCLINE HYCLATE 100MG TAB TAKE ONE TABLET BY MOUTH TWICE DAILY ORAL ACTIVE 10/27/2025 [id number] 5 Janes LOPEZ MD 2024 60 [facility] EYELID CLEANSER,EY E SCRUB PAD USE 1 PAD TOPICALL Y EVERY MORNING BLEPHARI TIS TOPICA L ACTIVE 09/02/2025 [id number] 5 OSBALDO CALDERON J 2024 90 [facility] EZETIMIBE 10MG TAB TAKE ONE TABLET BY MOUTH ONCE DAILY TO LOWER CHOLESTE ROL ORAL ACTIVE 06/26/2025 [id number] 5 MAUREEN BARRON 2023 90 [facility] EZETIMIBE 10MG TAB TAKE ONE TABLET BY MOUTH ONCE DAILY TO LOWER CHOLESTE ROL ORAL DISCONT INUED 06/19/2024 [id number] 4 MOHAMUD ARGUETA AV 2022 90 [facility] HYDROCHLORO THIAZIDE 25MG TAB TAKE ONE TABLET BY MOUTH ONCE DAILY ORAL ACTIVE 12/24/2024 [id number] 5 RAJI VAIL M 2024 90 [facility] HYDROCHLORO THIAZIDE 25MG TAB TAKE ONE TABLET BY MOUTH ONCE DAILY ORAL 06/19/2024 [id number] 4 MOHAMUD ARGUETA AV 2023 90 [facility] METOPROLOL SUCCINATE 50MG TAB,SA TAKE ONE TABLET BY MOUTH ONCE DAILY FOR BLOOD PRESSURE /HEART ORAL ACTIVE 06/26/2025 [id number] 5 MAUREEN BARRON D 2023 90 [facility] METOPROLOL SUCCINATE 50MG TAB,SA TAKE ONE TABLET BY MOUTH ONCE DAILY FOR BLOOD PRESSURE /HEART ORAL DISCONT INUED 06/19/2024 [id number] 4 MOHAMUD ARGUETA AV 2022 90 [facility] OXYCODONE HCL 5MG TAB TAKE ONE TABLET BY MOUTH EVERY 4 HOURS NEEDED FOR PAIN ORAL 10/25/2024 [id number] 5 MEUSE,TA- NERI 2024 42 [facility] TRIAMCINOLO NE ACETONIDE 0.1% CREAM,TOP APPLY A MODERATE AMOUNT TOPICALL Y TWICE DAILY NEEDED FOR ITCHING TOPICA L 10/24/2024 [id number] 4 MAUREEN BARRON PAIGE D 2023 454 [facility] Allergies, Adverse Reactions, Alerts Combined list of allergies from Department of Defense and Veterans Affairs facilities. It does not include entries that were removed or entered in error. Substance Category Reaction Severity Reaction type Status Date Reported Comments Source LIDOCAINE Propensity to adverse reactions to drug (finding) Itching MODERATE active 2 [facility] NOVOCAIN Propensity to adverse reactions to drug (finding) Feeling agitated active 8 [facility] PROCAINE Propensity to adverse reactions to drug (finding) active 2 [facility] Immunizations Combined list of available immunizations from the Department of Defense and Veterans Affairs facilities. Immunization Series Date Given Administered By Site Reaction Lot Number CVX Code Drug [employer] Teacher Status Comments Source COVID-19 (MODERNA), MRNA, LNP-S, PF, 50 MCG/0.5 ML (AGES 12+ YEARS) 7 2023 ALMA MAHER LEFT DELTO ID [id number] 312 complet ed [facility] AT [facility] INFLUENZA, HIGH-DOSE, TRIVALENT, PF 2023 ALMA MAHER LEFT DELTO ID [id number] 135 complet ed Completed Series, [facility] AT [facility] RSV, BIVALENT, PROTEIN SUBUNIT RSVPREF, DILUENT RECONSTITUTED , 0.5 ML, PF 1 2023 GRETCHEN ANDRADE E LEFT DELTO ID [id number] 305 complet ed [facility]MIN[facility]E [facility] AT [facility] COVID-19 (MODERNA), MRNA, LNP-S, PF, 50 MCG/0.5 ML (AGES 12+ YEARS) 1 2023 GRETCHEN ANDRADE E LEFT DELTO ID [id number] 312 complet ed [facility]E [facility] AT [facility] INFLUENZA, HIGH-DOSE, QUADRIVALENT 2022 JERRI SHAIKH M LEFT DELTO ID [id number] 197 complet ed ADMINISTE [facility] AT [facility] COVID-19 (MODERNA), MRNA, LNP-S, BIVALENT BOOSTER, PF, 50 MCG/0.5 ML OR 25MCG/0.25 ML DOSE 2021 JERRI SHAIKH M LEFT DELTO ID [id number] 229 complet ed Booster for Series, ADMINISTE [facility] AT [facility] INFLUENZA VACCINE, QUADRIVALENT, ADJUVANTED 2021 205 complet ed [facility] COVID-19 (MODERNA), MRNA, LNP-S, PF, 100 MCG/0.5ML DOSE OR 50 MCG/0.25ML DOSE 3 2021 207 complet ed MOD; [id number] ; 2 [facility] PNEUMOCOCCAL CONJUGATE PCV20, POLYSACCHARID E [id number] CONJUGATE, ADJUVANT, PF 2021 216 complet ed [facility] COVID-19 (MODERNA), MRNA, LNP-S, PF, 100 MCG OR 50 MCG DOSE 3 2020 207 complet ed MOD; [id number]; 2 [facility] INFLUENZA, UNSPECIFIED FORMULATION 2020 88 complet ed [facility] TDAP 2020 115 complet ed [facility] COVID-19 (MODERNA), MRNA, LNP-S, PF, 100 MCG/0.5 ML DOSE 2 2020 207 complet ed MOD; [id number]; 1 [facility] COVID-19 (MODERNA), MRNA, LNP-S, PF, 100 MCG/0.5 ML DOSE 1 2020 207 complet ed MOD; [id number]; 1 [facility] [...] SEASONAL 2017 135 complet ed 02, Partner: [facility]. Administe red by: ARLET BOLTON (AKD=[phone]). Partner 0 Lot#: [id number] Mfr: Sanofi Pasteur; Dosage: 0.5 [facility] PNEUMOCOCCAL POLYSACCHARID E PPV23 2016 33 complet ed 02, Partner: [facility]. Administe red by: ARLET BOLTON (UGV=[id number]). Partner 0 Lot#: [id number] Mfr: [employer]; Dosage: 0.5 [facility] INFLUENZA, HIGH DOSE SEASONAL 2016 135 complet ed 02, Partner: [facility]. Administe red by: ARLET BOLTON (GHF=[phone] [id number]). Partner 0 Lot#: [id number] Mfr: Sanofi Pasteur; Dosage: 0.5 [facility] Results Combined [...] Nov 11, 2024 03:09 PM Reporting Lab: [facility] [place] [address] [address] Performing Lab: [facility] [place] [address] [address] [facility] [facility] MICROSCO PIC AUTOMATE D, URINE BACTERIA [#/AREA] IN URINE SEDIMENT BY MICROSCOPY HIGH POWER FIELD 1+/[HPF] 11/11 Specimen Type: URINE Comment: If Glucose = >500 and Ketones are positive, please alert the Physician. Ordering Provider: JAMILA BARRON Report Released Date/Time: Nov 11, 2024 03:09 PM Reporting Lab: [facility] [place] [address] [address] Performing Lab: [facility] [place] [facility] [address] [facility] [address] [facility] [place] [facility] MICROSCO PIC AUTOMATE D, URINE MUCUS [#/AREA] IN URINE SEDIMENT BY MICROSCOPY LOW POWER FIELD FEW/[LPF ] 11/11 Specimen Type: URINE Comment: If Glucose = >500 and Ketones are positive, please alert the Physician. Ordering Provider: JAMILA BARRON Report Released Date/Time: Nov 11, 2024 03:09 PM Reporting Lab: [facility] [place] [address] [address] Performing Lab: [facility] [place] [address] [facility] [place] [facility] MICROSCO PIC AUTOMATE D, URINE ERYTHROCYT ES [#/AREA] IN URINE SEDIMENT BY MICROSCOPY HIGH POWER FIELD 3-5/[HPF ] 0 - 3 11/11 Specimen Type: URINE Comment: If Glucose = >500 and Ketones are positive, please alert the Physician. Ordering Provider: JAMILA BARRON Report Released Date/Time: Nov 11, 2024 03:09 PM Reporting Lab: [facility] [place] [address] [address] Performing Lab: [facility] [place] [address] [address] [facility] [place] [facility] URINALYS IS CLEAN CATCH COLOR OF URINE Yellow 11/11 Specimen Type: URINE Comment: If Glucose = >500 and Ketones are positive, please alert the Physician. Ordering Provider: JAMILA BARRON Report Released Date/Time: Nov 11, 2024 03:09 PM Reporting Lab: [facility] [place] [address] [address] Performing Lab: [facility] [place] [address] [address] [facility] [place] [facility] URINALYS IS CLEAN CATCH APPEARANCE OF URINE Clear 11/11 Specimen Type: URINE Comment: If Glucose = >500 and Ketones are positive, please alert the Physician. Ordering Provider: JAMILA BARRON Report Released Date/Time: Nov 11, 2024 03:09 PM Reporting Lab: [facility] [place] [address] [address] Performing Lab: [facility] [place] [address] [address] [facility] [place] [facility] URINALYS IS CLEAN CATCH GLUCOSE [MASS/VOLU ME] IN URINE Normalmg /dL 11/11 Specimen Type: URINE Comment: If Glucose = >500 and Ketones are positive, please alert the Physician. Ordering Provider: JAMILA BARRON Report Released Date/Time: Nov 11, 2024 03:09 PM Reporting Lab: [facility] [address] [facility] [address] Performing Lab: [facility] [address] [facility] [address] [facility] [place] URINALYS IS CLEAN CATCH KETONES [MASS/VOLU ME] IN URINE BY TEST STRIP NEGATIVE mg/dL 11/11 Specimen Type: URINE Comment: If Glucose = >500 and Ketones are positive, please alert the Physician. Ordering Provider: JAMILA BARRON Report Released Date/Time: Nov 11, 2024 03:09 PM Reporting Lab: [facility] [address] [facility] [address] Performing Lab: [facility] [address] [facility] [address] [facility] [place] URINALYS IS CLEAN CATCH ERYTHROCYT ES [PRESENCE] IN URINE SEDIMENT BY LIGHT MICROSCOPY NEGATIVE mg/dL 11/11 Specimen Type: URINE Comment: If Glucose = >500 and Ketones are positive, please alert the Physician. Ordering Provider: JAMILA BARRON Report Released Date/Time: Nov 11, 2024 03:09 PM Reporting Lab: [facility] [place] [facility] [address] [facility] [address] Performing Lab: [facility] [place] [facility] [address] [facility] [address] [facility] [place] URINALYS IS CLEAN CATCH PROTEIN [MASS/VOLU ME] IN URINE BY TEST STRIP 30 mg/dL 11/11 Specimen Type: URINE Comment: If Glucose = >500 and Ketones are positive, please alert the Physician. Ordering Provider: JAMILA BARRON Report Released Date/Time: Nov 11, 2024 03:09 PM Reporting Lab: [facility] [address] [facility] [address] Performing Lab: [facility] [address] [facility] [address] [facility] [place] [facility] URINALYS IS CLEAN CATCH NITRITE [PRESENCE] IN URINE NEGATIVE mg/dL 11/11 Specimen Type: URINE Comment: If Glucose = >500 and Ketones are positive, please alert the Physician. Ordering Provider: JAMILA BARRON Report Released Date/Time: Nov 11, 2024 03:09 PM Reporting Lab: [facility] [place] [facility] [address] [facility] [address] Performing Lab: [facility] [place] [address] [address] [facility] [place] [facility] URINALYS IS CLEAN CATCH BILIRUBIN. TOTAL [PRESENCE] IN URINE NEGATIVE mg/dL 11/11 Specimen Type: URINE Comment: If Glucose = >500 and Ketones are positive, please alert the Physician. Ordering Provider: JAMILA BARRON Report Released Date/Time: Nov 11, 2024 03:09 PM Reporting Lab: [facility] [place] [address] [address] Performing Lab: [facility] [place] [address] [address] [facility] [place] [facility] URINALYS IS CLEAN CATCH SPECIFIC GRAVITY OF URINE BY REFRACTOME TRY 1.030 1.016 - 1.022 11/11 H Specimen Type: URINE Comment: If Glucose = >500 and Ketones are positive, please alert the Physician. Ordering Provider: JAMILA BARRON Report Released Date/Time: Nov 11, 2024 03:09 PM Reporting Lab: [facility] [place] [address] [address] Performing Lab: [facility] [place] [address] [address] [facility] [place] [facility] URINALYS IS CLEAN CATCH PH OF URINE BY TEST STRIP 6.0 5.0 - 9.0 11/11 Specimen Type: URINE Comment: If Glucose = >500 and Ketones are positive, please alert the Physician. Ordering Provider: JAMILA BARRON Report Released Date/Time: Nov 11, 2024 03:09 PM Reporting Lab: [facility] [place] [address] [address] Performing Lab: [facility] [place] [facility] [address] [facility] [address] [facility] [place] [facility] URINALYS IS CLEAN CATCH UROBILINOG EN [MASS/VOLU ME] IN URINE BY TEST STRIP Normalmg /dL <2.0 - 2.0 11/11 Specimen Type: URINE Comment: If Glucose = >500 and Ketones are positive, please alert the Physician. Ordering Provider: JAMILA BARRON Report Released Date/Time: Nov 11, 2024 03:09 PM Reporting Lab: [facility] [address] [facility] [address] Performing Lab: [facility]USE[facility] [address] [facility] [address] [facility]STTRN UAB HOSPITALCHUSE [facility] URINALYS IS CLEAN CATCH LEUKOCYTE ESTERASE [PRESENCE] IN URINE BY TEST STRIP NEGATIVE 11/11 Specimen Type: URINE Comment: If Glucose = >500 and Ketones are positive, please alert the Physician. Ordering Provider: JAMILA BARRON Report Released Date/Time: Nov 11, 2024 03:09 PM Reporting Lab: [facility] [address] [address] Performing Lab: [facility]ITALUSETS [facility] [address] [facility] [address] [facility] TRN [facility]ITALUSE [facility] BASIC METABOLI C PANEL (fasting ) UREA NITROGEN [MASS/VOLU ME] IN SERUM OR PLASMA 24 mg/dL 8 - 26 11/09 Specimen Type: SERUM No comment entered. Ordering Provider: JAMILA BARRON Report Released Date/Time: Oct 31, 2024 06:34 PM Reporting Lab: [facility] [place] [facility] [address] [facility] [address] Performing Lab: [facility] [place] [facility] [address] [facility] [address] [facility] [place] [facility] BASIC METABOLI C PANEL (fasting ) GLUCOSE [MASS/VOLU ME] IN SERUM OR PLASMA 102 mg/dL 65 - 100 11/09 H Specimen Type: SERUM No comment entered. Ordering Provider: JAMILA BARRON Report Released Date/Time: Oct 31, 2024 06:34 PM Reporting Lab: [facility] [place] [facility] [address] [facility] [address] Performing Lab: [facility] [place] [facility] [address] [facility] [address] [facility] [place] [facility] BASIC METABOLI C PANEL (fasting ) SODIUM [MOLES/VOL UME] IN SERUM OR PLASMA 141 mmol/L 136 - 145 11/09 Specimen Type: SERUM No comment entered. Ordering Provider: JAMILA BARRON Report Released Date/Time: Oct 31, 2024 06:34 PM Reporting Lab: [facility] [place] [facility] [address] [facility] [address] Performing Lab: [facility] [place] [address] [address] [facility] [place] [facility] BASIC METABOLI C PANEL (fasting ) POTASSIUM [MOLES/VOL UME] IN SERUM OR PLASMA 4.0 mmol/L 3.5 - 5.1 11/09 Specimen Type: SERUM No comment entered. Ordering Provider: JAMILA BARRON Report Released Date/Time: Oct 31, 2024 06:34 PM Reporting Lab: [facility] [place] [facility] [address] [facility] [address] Performing Lab: [facility] [place] [facility] [address] [facility] [address] [facility] [place] [facility] BASIC METABOLI C PANEL (fasting ) CHLORIDE [MOLES/VOL UME] IN SERUM OR PLASMA 107 mmol/L 98 - 107 11/09 Specimen Type: SERUM No comment entered. Ordering Provider: JAMILA BARRON Report Released Date/Time: Oct 31, 2024 06:34 PM Reporting Lab: [facility] [place] [facility] [address] [facility] [address] Performing Lab: [facility] [place] [facility] [address] [facility] [address] [facility] [place] [facility] BASIC METABOLI C PANEL (fasting ) CARBON DIOXIDE, TOTAL [MOLES/VOL UME] IN SERUM OR PLASMA 23 meq/L 23 - 31 11/09 Specimen Type: SERUM No comment entered. Ordering Provider: JAMILA BARRON Report Released Date/Time: Oct 31, 2024 06:34 PM Reporting Lab: [facility] WESTTRN [address] [address] Performing Lab: [facility] WESTTRN [address] [address] [facility] BASIC METABOLI C PANEL (fasting ) CALCIUM [MASS/VOLU ME] IN SERUM OR PLASMA 9.1 mg/dL 8.8 - 10 11/09 Specimen Type: SERUM No comment entered. Ordering Provider: JAMILA BARRON Report Released Date/Time: Oct 31, 2024 06:34 PM Reporting Lab: [facility] [address] [address] Performing Lab: [facility]N [facility]ITALUSE[address] [address] [facility] BASIC METABOLI C PANEL (fasting ) CREATININE [MASS/VOLU ME] IN SERUM OR PLASMA 0.81 mg/dL 0.72 - 1.25 11/09 Specimen Type: SERUM No comment entered. Ordering Provider: JAMILA BARRON Report Released Date/Time: Oct 31, 2024 06:34 PM Reporting Lab: [facility]ITALUSE[address] [address] Performing Lab: [facility]ITALUSE[address] [address] [facility] BASIC METABOLI C PANEL (fasting ) GLOMERULAR FILTRATION RATE/1.73 SQ M.PREDICTE D [VOLUME RATE/AREA] IN SERUM, PLASMA OR BLOOD BY CREATININE -BASED FORMULA (CKD-EPI 2020) 86 mL/min 60 11/09 Specimen Type: SERUM No comment entered. Ordering Provider: JAMILA BARRON Report Released Date/Time: Oct 31, 2024 06:34 PM Reporting Lab: [facility] [place] [facility] [address] [facility] [address] Performing Lab: [place] [facility] [place] [facility] [address] [facility] [address] [place] [facility] [place] [facility] LIVER FUNCTION PROTEIN [MASS/VOLU ME] IN SERUM OR PLASMA 7.0 g/dL 6.4 - 8.3 11/09 Specimen Type: SERUM No comment entered. Ordering Provider: JAMILA BARRON Report Released Date/Time: Oct 31, 2024 06:34 PM Reporting Lab: [facility] [place] [facility] [address] [facility] [address] Performing Lab: [place] [facility] [place] [facility] [address] [facility] [address] [facility] LIVER FUNCTION ALBUMIN [MASS/VOLU ME] IN SERUM OR PLASMA BY BROMOCRESO L PURPLE (BCP) DYE BINDING METHOD 3.4 g/dL 3.2 - 4.6 11/09 Specimen Type: SERUM No comment entered. Ordering Provider: JAMILA BARRON Report Released Date/Time: Oct 31, 2024 06:34 PM Reporting Lab: [place] [facility] [place] [facility] [address] [facility] [address] Performing Lab: [place] [facility] [place] [facility] [address] [facility] [address] [facility] W[facility] LIVER FUNCTION ALKALINE PHOSPHATAS E [ENZYMATIC ACTIVITY/V OLUME] IN SERUM OR PLASMA 121 U/L 40 - 150 11/09 Specimen Type: SERUM No comment entered. Ordering Provider: JAMILA BARRON Report Released Date/Time: Oct 31, 2024 06:34 PM Reporting Lab: [place] [facility] [place] [facility] [address] [facility] [address] Performing Lab: [place] [facility] [facility] [address] [facility] [address] [facility] [place] [facility] LIVER FUNCTION ASPARTATE AMINOTRANS FERASE [ENZYMATIC ACTIVITY/V OLUME] IN SERUM OR PLASMA BY WITH P-5'-P 42 U/L 5 - 34 11/09 H Specimen Type: SERUM No comment entered. Ordering Provider: JAMILA BARRON Report Released Date/Time: Oct 31, 2024 06:34 PM Reporting Lab: [place] [facility] [place] [facility] [address] [facility] [address] Performing Lab: [place] [facility] [address] [facility] [address] [facility] WSTRN [facility] LIVER FUNCTION ALANINE AMINOTRANS FERASE [ENZYMATIC ACTIVITY/V OLUME] IN SERUM OR PLASMA BY WITH P-5'-P 25 U/L 0 - 55 11/09 Specimen Type: SERUM No comment entered. Ordering Provider: JAMILA BARRON Report Released Date/Time: Oct 31, 2024 06:34 PM Reporting Lab: [place] [facility] [address] [facility] [address] Performing Lab: [place] [facility] [facility] [facility]ITALUSE[address] [address] [facility]ITALRL TRN [facility]OSPITALUSE [facility] LIVER FUNCTION BILIRUBIN. TOTAL [MASS/VOLU ME] IN SERUM OR PLASMA 0.5 mg/dL 0.2 - 1.2 11/09 Specimen Type: SERUM No comment entered. Ordering Provider: JAMILA BARRON Report Released Date/Time: Oct 31, 2024 06:34 PM Reporting Lab: [place] [facility]ITALUSE[address] [address] Performing Lab: [place] [facility]ITALUSETS [address] [address] [facility]ITALRL TRN [facility]OSPITALUSE [facility] CBC AND DIFF (AUTO) LEUKOCYTES [#/VOLUME] IN BLOOD BY AUTOMATED COUNT 9.44 10*3/uL 4.50 - 11.00 11/09 Specimen Type: BLOOD No comment entered. Ordering Provider: JAMILA BARRON Report Released Date/Time: Oct 31, 2024 06:34 PM Reporting Lab: [place] [facility]ITAL[facility] [address] Performing Lab: [place] [facility]ITALUSETS [address] [address] [place] [facility] [place] [facility] CBC AND DIFF (AUTO) ERYTHROCYT ES [#/VOLUME] IN BLOOD BY AUTOMATED COUNT 4.01 10*6/uL 4.23 - 5.66 11/09 L Specimen Type: BLOOD No comment entered. Ordering Provider: JAMILA BARRON Report Released Date/Time: Oct 31, 2024 06:34 PM Reporting Lab: [facility]OSPITALRUAB [facility]STTRN [place] [address] [address] Performing Lab: [facility]ITALRL [facility] [place] [facility] [address] [facility] [address] [facility] HOSPITALRSHOALS HOSPITALN [place] [facility] CBC AND DIFF (AUTO) HEMOGLOBIN [MASS/VOLU ME] IN BLOOD 13.0 g/dL 12.8 - 17 11/09 Specimen Type: BLOOD No comment entered. Ordering Provider: JAMILA BARRON Report Released Date/Time: Oct 31, 2024 06:34 PM Reporting Lab: [facility]PITALRUAB MED[facility] WESTTRN [place] [address] [address] Performing Lab: [facility]ITALRL [facility] [place] [address] [address] [facility] [place] [facility] CBC AND DIFF (AUTO) HEMATOCRIT [VOLUME FRACTION] OF BLOOD BY AUTOMATED COUNT 37.5 39.2 - 50.4 11/09 L Specimen Type: BLOOD No comment entered. Ordering Provider: JAMILA BARRON Report Released Date/Time: Oct 31, 2024 06:34 PM Reporting Lab: [facility]ITALRUAB [facility] WESTTRN [place] [address] [address] Performing Lab: [facility]ITALRL [facility] [place] [address] [address] [facility] HOSPITALRSHOALS HOSPITALN [place] [facility] CBC AND DIFF (AUTO) MCV [ENTITIC VOLUME] BY AUTOMATED COUNT 93.5 fL 82 - 99 11/09 Specimen Type: BLOOD No comment entered. Ordering Provider: JAMILA BARRON Report Released Date/Time: Oct 31, 2024 06:34 PM Reporting Lab: [facility]PITALRUAB MED[facility] WESTTRN [place] [address] [address] Performing Lab: [facility] [facility] [address] [facility] [address] [place] [facility] [facility] CBC AND DIFF (AUTO) MCHC [MASS/VOLU ME] BY AUTOMATED COUNT 34.7 g/dL 30.8 - 35.1 11/09 Specimen Type: BLOOD No comment entered. Ordering Provider: JAMILA BARRON Report Released Date/Time: Oct 31, 2024 06:34 PM Reporting Lab: [facility] [facility] [address] [facility] [address] Performing Lab: [place] [facility] [facility] [address] [facility] [address] [place] [facility] [facility] CBC AND DIFF (AUTO) PLATELETS [#/VOLUME] IN BLOOD BY AUTOMATED COUNT 236 10*3/uL 140 - 360 11/09 Specimen Type: BLOOD No comment entered. Ordering Provider: JAMILA BARRON Report Released Date/Time: Oct 31, 2024 06:34 PM Reporting Lab: [facility] [place] [facility] [address] [facility] [address] Performing Lab: [place] [facility] [facility] [address] [facility] [address] [place] [facility] [facility] CBC AND DIFF (AUTO) PLATELET MEAN VOLUME [ENTITIC VOLUME] IN BLOOD BY AUTOMATED COUNT 10.0 fL 9.2 - 12.4 11/09 Specimen Type: BLOOD No comment entered. Ordering Provider: JAMILA BARRON Report Released Date/Time: Oct 31, 2024 06:34 PM Reporting Lab: [facility] [place] [facility] [address] [facility] [address] Performing Lab: [place] [facility] [facility] [address] [facility] [address] [place] [facility] [facility] CBC AND DIFF (AUTO) ERYTHROCYT E DISTRIBUTI ON WIDTH [RATIO] BY AUTOMATED COUNT 13.7 12.0 - 16.0 11/09 Specimen Type: BLOOD No comment entered. Ordering Provider: JAMILA BARRON Report Released Date/Time: Oct 31, 2024 06:34 PM Reporting Lab: [facility] [place] [facility] [address] [facility] [address] Performing Lab: [place] [facility] [place] [facility] [address] [facility] [address] [facility] [facility] CBC AND DIFF (AUTO) MONOCYTES [#/VOLUME] IN BLOOD BY AUTOMATED COUNT 1.06 10*3/uL 0.30 - 1.10 11/09 Specimen Type: BLOOD No comment entered. Ordering Provider: JAMILA BARRON Report Released Date/Time: Oct 31, 2024 06:34 PM Reporting Lab: [place] [facility] [facility] [address] [facility] [address] Performing Lab: [place] [facility] [place] [facility] [address] [facility] [address] [place] [facility] [facility] CBC AND DIFF (AUTO) MCH [ENTITIC MASS] BY AUTOMATED COUNT 32.4 pg 26.2 - 32.6 11/09 Specimen Type: BLOOD No comment entered. Ordering Provider: JAMILA BARRON Report Released Date/Time: Oct 31, 2024 06:34 PM Reporting Lab: [facility] [place] [facility] [address] [facility] [address] Performing Lab: [place] [facility] [place] [facility] [address] [facility] [address] [place] [facility] [place] [facility] CBC AND DIFF (AUTO) NEUTROPHIL S/100 LEUKOCYTES IN BLOOD BY AUTOMATED COUNT 54.7 43.7 - 75.8 11/09 Specimen Type: BLOOD No comment entered. Ordering Provider: JAMILA BARRON Report Released Date/Time: Oct 31, 2024 06:34 PM Reporting Lab: [facility] [place] [facility] [address] [facility] [address] Performing Lab: [facility] [place] [facility] [address] [facility] [address] [place] [facility] [facility] CBC AND DIFF (AUTO) LYMPHOCYTE S/100 LEUKOCYTES IN BLOOD BY AUTOMATED COUNT 23.8 14.0 - 42.3 11/09 Specimen Type: BLOOD No comment entered. Ordering Provider: JAMILA BARRON Report Released Date/Time: Oct 31, 2024 06:34 PM Reporting Lab: [facility] [facility] [address] [facility] [address] Performing Lab: [facility] [facility] [address] [facility] [address] [place] [facility] [facility] CBC AND DIFF (AUTO) MONOCYTES/ 100 LEUKOCYTES IN BLOOD BY AUTOMATED COUNT 11.2 5.1 - 13.7 11/09 Specimen Type: BLOOD No comment entered. Ordering Provider: JAMILA BARRON Report Released Date/Time: Oct 31, 2024 06:34 PM Reporting Lab: [facility] [facility] [address] [facility] [address] Performing Lab: [facility] [place] [address] [address] [facility] [facility] CBC AND DIFF (AUTO) EOSINOPHIL S/100 LEUKOCYTES IN BLOOD BY AUTOMATED COUNT 9.0 0.4 - 6.8 11/09 H Specimen Type: BLOOD No comment entered. Ordering Provider: JAMILA BARRON Report Released Date/Time: Oct 31, 2024 06:34 PM Reporting Lab: [facility] [place] [facility] [address] [facility] [address] Performing Lab: [facility] [place] [address] [address] [place] [facility] [facility] CBC AND DIFF (AUTO) BASOPHILS/ 100 LEUKOCYTES IN BLOOD BY AUTOMATED COUNT 0.6 0.1 - 2.0 11/09 Specimen Type: BLOOD No comment entered. Ordering Provider: JAMILA BARRON Report Released Date/Time: Oct 31, 2024 06:34 PM Reporting Lab: [facility] [place] [facility] [address] [facility] [address] Performing Lab: [facility] [facility] [address] [place] [address] [facility] [place] [facility] CBC AND DIFF (AUTO) NEUTROPHIL S [#/VOLUME] IN BLOOD BY AUTOMATED COUNT 5.15 10*3/uL 2.20 - 7.60 11/09 Specimen Type: BLOOD No comment entered. Ordering Provider: JAMILA BARRON Report Released Date/Time: Oct 31, 2024 06:34 PM Reporting Lab: [facility] [place] [address] [address] Performing Lab: [facility] [place] [address] [address] [facility] [place] [facility] CBC AND DIFF (AUTO) LYMPHOCYTE S [#/VOLUME] IN BLOOD BY AUTOMATED COUNT 2.25 10*3/uL 1.00 - 3.20 11/09 Specimen Type: BLOOD No comment entered. Ordering Provider: JAMILA BARRON Report Released Date/Time: Oct 31, 2024 06:34 PM Reporting Lab: [facility] [place] [address] [address] Performing Lab: [facility] [place] [address] [address] [place] [facility] [facility] CBC AND DIFF (AUTO) EOSINOPHIL S [#/VOLUME] IN BLOOD BY AUTOMATED COUNT 0.85 10*3/uL 0.03 - 0.44 11/09 H Specimen Type: BLOOD No comment entered. Ordering Provider: JAMILA BARRON Report Released Date/Time: Oct 31, 2024 06:34 PM Reporting Lab: [facility] [place] [address] [address] Performing Lab: [facility] [place] [address] [address] [place] [facility] [place] [facility] CBC AND DIFF (AUTO) BASOPHILS [#/VOLUME] IN BLOOD BY AUTOMATED COUNT 0.06 10*3/uL 0.01 - 0.13 11/09 Specimen Type: BLOOD No comment entered. Ordering Provider: JAMILA BARRON Report Released Date/Time: Oct 31, 2024 06:34 PM Reporting Lab: [facility] [place] [address] [address] Performing Lab: [place] [facility] [place] [facility] [address] [facility] [address] [place] [facility] [facility] CBC AND DIFF (AUTO) IMMATURE GRANULOCYT ES/100 LEUKOCYTES IN BLOOD BY AUTOMATED COUNT 0.7 0.0 - 0.7 11/09 Specimen Type: BLOOD No comment entered. Ordering Provider: JAMILA BARRON Report Released Date/Time: Oct 31, 2024 06:34 PM Reporting Lab: [place] [facility] [place] [facility] [address] [facility] [address] Performing Lab: [place] [facility] [facility] [address] [facility] [address] [place] [facility] [facility] CBC AND DIFF (AUTO) IMMATURE GRANULOCYT ES [#/VOLUME] IN BLOOD BY AUTOMATED COUNT 0.07 10*3/uL 0.00 - 0.06 11/09 H Specimen Type: BLOOD No comment entered. Ordering Provider: JAMILA BARRON Report Released Date/Time: Oct 31, 2024 06:34 PM Reporting Lab: [place] [facility] [facility] [address] [facility] [address] Performing Lab: [place] [facility] [facility] [address] [facility] [address] [facility] [place] [facility] CBC AND DIFF (AUTO) NUCLEATED ERYTHROCYT ES/100 LEUKOCYTES [RATIO] IN BLOOD BY AUTOMATED COUNT 0.0 0.0 - 0.0 11/09 Specimen Type: BLOOD No comment entered. Ordering Provider: JAMILA BARRON Report Released Date/Time: Oct 31, 2024 06:34 PM Reporting Lab: [place] [facility] [facility] [address] [facility] [address] Performing Lab: [place] [facility] [facility] [address] [facility] [address] [place] [facility] [facility] CBC AND DIFF (AUTO) NUCLEATED ERYTHROCYT ES [#/VOLUME] IN BLOOD BY AUTOMATED COUNT 0.00 10*3/uL 0.00 - 0.00 11/09 Specimen Type: BLOOD No comment entered. Ordering Provider: JAMILA BARRON Report Released Date/Time: Oct 31, 2024 06:34 PM Reporting Lab: [facility] [place] [facility] [address] [facility] [address] Performing Lab: [facility] [place] [facility] [address] [facility] [address] [facility] [place] [facility] LIPID PANEL FASTING CHOLESTERO L [MASS/VOLU ME] IN SERUM OR PLASMA 130 mg/dL 11/09 Specimen Type: SERUM No comment entered. Ordering Provider: JAMILA BARRON Report Released Date/Time: Oct 31, 2024 06:34 PM Reporting Lab: [facility] [place] [facility] [address] [facility] [address] Performing Lab: [facility] [place] [facility] [address] [facility] [address] [place] [facility] [place] [facility] LIPID PANEL FASTING TRIGLYCERI DE [MASS/VOLU ME] IN SERUM OR PLASMA 93 mg/dL 0 - 150 11/09 Specimen Type: SERUM No comment entered. Ordering Provider: JAMILA BARRON Report Released Date/Time: Oct 31, 2024 06:34 PM Reporting Lab: [facility] [place] [facility] [address] [facility] [address] Performing Lab: [facility] [place] [facility] [address] [facility] [address] [facility] [place] [facility] LIPID PANEL FASTING CHOLESTERO L IN LDL [MASS/VOLU ME] IN SERUM OR PLASMA BY CALCRITU N 74 mg/dL 0 - 129 11/09 Specimen Type: SERUM No comment entered. Ordering Provider: JAMILA BARRON Report Released Date/Time: Oct 31, 2024 06:34 PM Reporting Lab: [facility] [place] [facility] [address] [facility] [address] Performing Lab: [facility] [place] [facility] [address] [facility] [address] [facility] [place] [facility] LIPID PANEL FASTING CHOLESTERO L.TOTAL/CH OLESTEROL IN HDL [MASS RATIO] IN SERUM OR PLASMA 3.5 11/09 Specimen Type: SERUM No comment entered. Ordering Provider: JAMILA BARRON Report Released Date/Time: Oct 31, 2024 06:34 PM Reporting Lab: [facility] [place] [facility] [address] [facility] [address] Performing Lab: [place] [facility] [facility] [address] [facility] [address] [facility] [place] [facility] LIPID PANEL FASTING CHOLESTERO L IN HDL [MASS/VOLU ME] IN SERUM OR PLASMA 37 mg/dL 40 11/09 L Specimen Type: SERUM No comment entered. Ordering Provider: JAMILA BARRON Report Released Date/Time: Oct 31, 2024 06:34 PM Reporting Lab: [facility]OSPITALRL TRN [facility]ITALUSE[facility] [address] [facility] [address] Performing Lab: [facility]ITALRL TRN [facility]ITALUSE[address] [address] [facility] HOSPITALRSHOALS HOSPITALN [place] [facility] TSH THYROTROPI N [UNITS/VOL UME] IN SERUM OR PLASMA BY DETECTION LIMIT <= 0.005 MIU/L 3.49 u[IU]/mL 0.35 - 4.94 11/09 Specimen Type: SERUM No comment entered. Ordering Provider: JAMILA BARRON Report Released Date/Time: Oct 31, 2024 06:34 PM Reporting Lab: [facility]ITALRL [facility]N [place] [facility] [address] [facility] [address] Performing Lab: [place] [facility] [facility]ITALUSETS [facility] [address] [facility] [address] [facility]RL WSTRN [place] [facility] MICROSCO PIC AUTOMATE D, URINE MUCUS [#/AREA] IN URINE SEDIMENT BY MICROSCOPY LOW POWER FIELD FEW/[LPF ] 11/09 Specimen Type: URINE Comment: If Glucose = >500 and Ketones are positive, please alert the Physician. Ordering Provider: JAMILA BARRON Report Released Date/Time: Oct 31, 2024 06:34 PM Reporting Lab: [facility]OSPITALRUAB MEDICAL WESTTRN [facility]ITALUSE[address] [address] Performing Lab: [place] [facility] TRN [facility]OSPITALUSETS [address] [address] [place] [facility] [facility] MICROSCO PIC AUTOMATE D, URINE HYALINE CASTS [#/AREA] IN URINE SEDIMENT BY MICROSCOPY LOW POWER FIELD 2-4/[LPF ] 0 - 2 11/09 Specimen Type: URINE Comment: If Glucose = >500 and Ketones are positive, please alert the Physician. Ordering Provider: JAMILA BARRON Report Released Date/Time: Oct 31, 2024 06:34 PM Reporting Lab: [place] [facility] [facility] [address] [facility] [address] Performing Lab: [place] [facility] [facility]ITALUSETS [address] [address] [place] [facility]OSPITALUSE [facility] MICROSCO PIC AUTOMATE D, URINE CALCIUM OXALATE CRYSTALS [#/AREA] IN URINE SEDIMENT BY MICROSCOPY HIGH POWER FIELD MANY/[HP F] 11/09 Specimen Type: URINE Comment: If Glucose = >500 and Ketones are positive, please alert the Physician. Ordering Provider: JAMILA BARRON Report Released Date/Time: Oct 31, 2024 06:34 PM Reporting Lab: [place] [facility]ITALUSETS [address] [address] Performing Lab: [place] [facility] [facility]ITAL[facility] [address] [address] [facility]ITALRL WSTRN [facility]PITALUSE [facility] MICROSCO PIC AUTOMATE D, URINE ERYTHROCYT ES [#/AREA] IN URINE SEDIMENT BY MICROSCOPY HIGH POWER FIELD 6-10/[HP F] 0 - 3 11/09 H Specimen Type: URINE Comment: If Glucose = >500 and Ketones are positive, please alert the Physician. Ordering Provider: JAMILA BARRON Report Released Date/Time: Oct 31, 2024 06:34 PM Reporting Lab: [place] [facility] [address] [address] Performing Lab: [place] [facility] [facility] [address] [address] [facility]ITALRL WSTRN [facility]OSPITALCHUSE [facility] MICROSCO PIC AUTOMATE D, URINE EPITHELIAL CELLS.SQUA MOUS [#/AREA] IN URINE SEDIMENT BY MICROSCOPY HIGH POWER FIELD FEW/[HPF ] 11/09 Specimen Type: URINE Comment: If Glucose = >500 and Ketones are positive, please alert the Physician. Ordering Provider: JAMILA BARRON Report Released Date/Time: Oct 31, 2024 06:34 PM Reporting Lab: [place] [facility] [facility] [address] [facility] [address] Performing Lab: [facility] [place] [facility] [address] [facility] [address] [facility] URINALYS IS CLEAN CATCH COLOR OF URINE Yellow 11/09 Specimen Type: URINE Comment: If Glucose = >500 and Ketones are positive, please alert the Physician. Ordering Provider: JAMILA BARRON Report Released Date/Time: Oct 31, 2024 06:34 PM Reporting Lab: [facility] [place] [facility] [address] [facility] [address] Performing Lab: [facility] [place] [facility] [address] [facility] [address] [facility] [place] [facility] URINALYS IS CLEAN CATCH APPEARANCE OF URINE Clear 11/09 Specimen Type: URINE Comment: If Glucose = >500 and Ketones are positive, please alert the Physician. Ordering Provider: JAMILA BARRON Report Released Date/Time: Oct 31, 2024 06:34 PM Reporting Lab: [facility] [place] [address] [address] Performing Lab: [facility] [place] [facility] [address] [facility] [address] [facility] [place] [facility] URINALYS IS CLEAN CATCH GLUCOSE [MASS/VOLU ME] IN URINE Normalmg /dL 11/09 Specimen Type: URINE Comment: If Glucose = >500 and Ketones are positive, please alert the Physician. Ordering Provider: JAMILA BARRON Report Released Date/Time: Oct 31, 2024 06:34 PM Reporting Lab: [facility] [place] [facility] [address] [facility] [address] Performing Lab: [facility] [place] [address] [address] [facility] [place] [facility] URINALYS IS CLEAN CATCH KETONES [MASS/VOLU ME] IN URINE BY TEST STRIP NEGATIVE mg/dL 11/09 Specimen Type: URINE Comment: If Glucose = >500 and Ketones are positive, please alert the Physician. Ordering Provider: JAMILA BARRON Report Released Date/Time: Oct 31, 2024 06:34 PM Reporting Lab: [facility] [place] [facility] [address] [facility] [address] Performing Lab: [facility] [place] [facility] [address] [facility] [address] [facility] [place] [facility] URINALYS IS CLEAN CATCH ERYTHROCYT ES [PRESENCE] IN URINE SEDIMENT BY LIGHT MICROSCOPY SMALLmg/ dL 11/09 Specimen Type: URINE Comment: If Glucose = >500 and Ketones are positive, please alert the Physician. Ordering Provider: JAMILA BARRON Report Released Date/Time: Oct 31, 2024 06:34 PM Reporting Lab: [facility] [place] [facility] [address] [facility] [address] Performing Lab: [facility] [place] [facility] [address] [facility] [address] [facility] [place] [facility] URINALYS IS CLEAN CATCH PROTEIN [MASS/VOLU ME] IN URINE BY TEST STRIP 20 mg/dL 11/09 Specimen Type: URINE Comment: If Glucose = >500 and Ketones are positive, please alert the Physician. Ordering Provider: JAMILA BARRON Report Released Date/Time: Oct 31, 2024 06:34 PM Reporting Lab: [facility] [place] [facility] [address] [facility] [address] Performing Lab: [facility] [place] [facility] [address] [facility] [address] [facility] [place] [facility] URINALYS IS CLEAN CATCH NITRITE [PRESENCE] IN URINE NEGATIVE mg/dL 11/09 Specimen Type: URINE Comment: If Glucose = >500 and Ketones are positive, please alert the Physician. Ordering Provider: JAMILA BARRON Report Released Date/Time: Oct 31, 2024 06:34 PM Reporting Lab: [facility] [place] [facility] [address] [facility] [address] Performing Lab: [facility] [place] [facility] [address] [facility] [address] [facility] [place] [facility] URINALYS IS CLEAN CATCH BILIRUBIN. TOTAL [PRESENCE] IN URINE NEGATIVE mg/dL 11/09 Specimen Type: URINE Comment: If Glucose = >500 and Ketones are positive, please alert the Physician. Ordering Provider: JAMILA BARRON Report Released Date/Time: Oct 31, 2024 06:34 PM Reporting Lab: [facility] [place] [facility] [address] [facility] [address] Performing Lab: [facility] [place] [facility] [address] [facility] [address] [facility] [place] [facility] URINALYS IS CLEAN CATCH SPECIFIC GRAVITY OF URINE BY REFRACTOME TRY 1.030 1.016 - 1.022 11/09 H Specimen Type: URINE Comment: If Glucose = >500 and Ketones are positive, please alert the Physician. Ordering Provider: JAMILA BARRON Report Released Date/Time: Oct 31, 2024 06:34 PM Reporting Lab: [facility] [place] [facility] [address] [facility] [address] Performing Lab: [facility] [place] [place] [facility] [address] [facility] [address] [facility] [place] [facility] URINALYS IS CLEAN CATCH PH OF URINE BY TEST STRIP 6.0 5.0 - 9.0 11/09 Specimen Type: URINE Comment: If Glucose = >500 and Ketones are positive, please alert the Physician. Ordering Provider: JAMILA BARRON Report Released Date/Time: Oct 31, 2024 06:34 PM Reporting Lab: [facility] [place] [facility] [address] [facility] [address] Performing Lab: [facility] [place] [facility] [address] [facility] [address] [facility] [place] [facility] URINALYS IS CLEAN CATCH UROBILINOG EN [MASS/VOLU ME] IN URINE BY TEST STRIP Normalmg /dL <2.0 - 2.0 11/09 Specimen Type: URINE Comment: If Glucose = >500 and Ketones are positive, please alert the Physician. Ordering Provider: JAMILA BARRON Report Released Date/Time: Oct 31, 2024 06:34 PM Reporting Lab: [facility] [place] [address] [address] Performing Lab: [place] [facility] [place] [address] [address] [facility] URINALYS IS CLEAN CATCH LEUKOCYTE ESTERASE [PRESENCE] IN URINE BY TEST STRIP NEGATIVE 11/09 Specimen Type: URINE Comment: If Glucose = >500 and Ketones are positive, please alert the Physician. Ordering Provider: JAMILA BARRON Report Released Date/Time: Oct 31, 2024 06:34 PM Reporting Lab: [facility] [place] [address] [address] Performing Lab: [facility] [place] [address] [address] [facility] BASIC METABOLI C PANEL (fasting ) UREA NITROGEN [MASS/VOLU ME] IN SERUM OR PLASMA 22 mg/dL 7 - 25 04/07 Specimen Type: SERUM No comment entered. Ordering Provider: JAMILA BARRON Report Released Date/Time: Apr 04, 2024 05:53 PM Reporting Lab: [facility] [place] [address] [address] Performing Lab: [facility] [place] [address] [address] [facility] BASIC METABOLI C PANEL (fasting ) GLUCOSE [MASS/VOLU ME] IN SERUM OR PLASMA 93 mg/dL 65 - 100 04/07 Specimen Type: SERUM No comment entered. Ordering Provider: JAMILA BARRON Report Released Date/Time: Apr 04, 2024 05:53 PM Reporting Lab: [facility] [place] [address] [address] Performing Lab: [facility] [place] [facility] [address] [facility] [address] [facility] BASIC METABOLI C PANEL (fasting ) SODIUM [MOLES/VOL UME] IN SERUM OR PLASMA 139 mmol/L 135 - 145 04/07 Specimen Type: SERUM No comment entered. Ordering Provider: JAMILA BARRON Report Released Date/Time: Apr 04, 2024 05:53 PM Reporting Lab: [facility] [place] [facility] [address] [facility] [address] Performing Lab: [facility] [address] [facility] [address] [facility]TRN [facility]ITAL[facility] BASIC METABOLI C PANEL (fasting ) POTASSIUM [MOLES/VOL UME] IN SERUM OR PLASMA 3.9 mmol/L 3.5 - 5.0 04/07 Specimen Type: SERUM No comment entered. Ordering Provider: JAMILA BARRON Report Released Date/Time: Apr 04, 2024 05:53 PM Reporting Lab: [facility] [address] [address] Performing Lab: [facility]USE[facility] [address] [facility] [address] [facility] TRN [facility]ITALUSE [facility] BASIC METABOLI C PANEL (fasting ) CHLORIDE [MOLES/VOL UME] IN SERUM OR PLASMA 102 mmol/L 100 - 110 04/07 Specimen Type: SERUM No comment entered. Ordering Provider: JAMILA BARRON Report Released Date/Time: Apr 04, 2024 05:53 PM Reporting Lab: [facility]ITAL[facility] [address] [facility] [address] Performing Lab: [facility] [address] [address] [facility]N [facility]ITALUSE [facility] BASIC METABOLI C PANEL (fasting ) CARBON DIOXIDE, TOTAL [MOLES/VOL UME] IN SERUM OR PLASMA 26 meq/L 20 - 30 04/07 Specimen Type: SERUM No comment entered. Ordering Provider: JAMILA BARRON Report Released Date/Time: Apr 04, 2024 05:53 PM Reporting Lab: [facility] [place] [facility] [address] [facility] [address] Performing Lab: [facility] [place] [facility] [address] [facility] [address] [facility] [place] [facility] BASIC METABOLI C PANEL (fasting ) CREATININE [MASS/VOLU ME] IN SERUM OR PLASMA 0.92 mg/dL 0.50 - 1.40 04/07 Specimen Type: SERUM No comment entered. Ordering Provider: JAMILA BARRON Report Released Date/Time: Apr 04, 2024 05:53 PM Reporting Lab: [facility] [place] [facility] [address] [facility] [address] Performing Lab: [facility] [place] [facility] [address] [facility] [address] [facility] [place] [facility] BASIC METABOLI C PANEL (fasting ) GLOMERULAR FILTRATION RATE/1.73 SQ M.PREDICTE D [VOLUME RATE/AREA] IN SERUM, PLASMA OR BLOOD BY CREATININE -BASED FORMULA (CKD-EPI 2020) 82 mL/min 60 04/07 Specimen Type: SERUM No comment entered. Ordering Provider: JAMILA BARRON Report Released Date/Time: Apr 04, 2024 05:53 PM Reporting Lab: [facility] [place] [facility] [address] [facility] [address] Performing Lab: [place] [facility] [place] [address] [address] [place] [facility] [place] [facility] Vital Signs Combined list of inpatient and outpatient Vital Signs from Department of Defense and Veterans Affairs, ranging from 12 months to all on record, depending upon the facility. Vital Sign Value Date Comments Source SYSTOLIC BLOOD PRESSURE 134 11/12/19 25 14:15:35 [facility] [place] [facility] DIASTOLIC BLOOD PRESSURE 74 025 14:15:35 [facility] [place] [facility] PULSE OXIMETRY 97 11/11/2024 14:15:35 [facility] [place] [facility] WEIGHT 168 11/11/2024 14:15:35 [facility] [place] [facility] BMI 27 kg/m2 11/11/2024 14:15:35 [facility] [place] Encounter [id number] 06/14 [facility] [place] En[facility] [id number] 06/16 [facility] [place] En[facility] [id number] 06/19 [facility] [place] Encounter [id number] 06/27 [facility] [place] Encounter [id number] 07/20 [facility] [place] En[facility] [id number] 10/08 [facility] [place] [facility] [place] [facility] OFFICE O/P EST LOW 20 MIN [id number] Diagnos is: ICD-10- CM H67.3 Otitis media in disease s classif ied elsewhe qamar he HOWA RD D 10/15 [facility] [place] [facility] [place] [facility] OFF/OP EST MAY X REQ PHY/QHP [id number] Diagnos is: ICD-10- CM Z23 Encount er for immuniz ation RICO BARRON RD D 10/15 [facility] [place] [facility] [place] [facility] UNLISTED SPEC DERM SVC/PX [id number] Diagnos is: ICD-10- CM Z13.89 Encount er for screeni ng for other disorde r GORDON BEAUCHAMP ICA A 10/23 [facility] [place] [facility] OFFICE O/P EST SF 10 MIN [id number] Diagnos is: ICD-10- CM R21 Rash and other nonspec ific skin eruptio WILEY Hoffman PH J 10/23 [facility] [place] [place] [facility] Outpatient Encounter [id number] 10/23 [facility] [place] [facility] En[facility] [id number] 10/23 [facility] [place] Encounter [id number] 11/20 [facility] [place] Encounter [id number] 11/24 [facility] [place] [facility] Encounter [id number] 11/27 [facility] [place] Encounter [id number] 11/28 [facility] [place] Encounter [id number] 11/30 [facility] [place] UNLISTED SPEC DERM SVC/PX [id number] Diagnos is: ICD-10- CM Z13.89 Encount er for screeni ng for other disorde r GORDON BEAUCHAMP ICA A 12/04 [facility] [place] En[facility] [id number]/04 [facility] [place] [facility] Outpatient Encounter [id number] Diagnos is: ICD-10- CM D48.5 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 IRENA BRADFORD 12/04 [facility] [place] Out[facility] Encounter [id number] [facility] [place] Encounter [id number] 12/04 [facility] [place] Encounter [id number] MICHELLE FIGUEROA 12/26 [facility] [place] [place] [id number] Diagnos is: ICD-10- CM 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, bilater al Yossi HARRINGTON 12/29 [facility] Encounter [id number] 12/29 [facility] [place] Encounter [id number] 01/05 [facility] [place] Encounter [id number] 01/09 [facility] [place] Encounter [id number] 01/12 [facility] [place] Encounter [id number] 01/12 [facility] [place] Encounter [id number] 01/12 [facility] [place] Out[facility] Encounter [id number] IRASEMA MONTILLA 01/13 [facility] [place] En[facility] [id number] 01/16 [facility] [place] Encounter [id number] 01/16 [facility] [place] Encounter [id number] 01/19 [facility] [place] Encounter [id number] 01/22 [facility] [place] Encounter [id number] 02/02 [facility] [place] ORTHC/PROS TC MGMT SBSQ ENC [id number] Diagnos is: ICD-10- CM M84.472 A Patholo gical fractur e, left ankle, init encntr for fractur e Thierno HAMPTON 02/02 [facility] En[facility] [id number] 02/10 [facility] [place] Encounter [id number] 02/13 [facility] [place] Encounter [id number] 03/04 [facility] [place] Encounter [id number] 03/04 [facility] [place] OFF/OP EST NOVEMBER X REQ PHY/QHP [id number] Diagnos is: ICD-10- CM 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.89 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 JOSIE Duval 03/05 [facility] OFFICE O/P EST LOW 20 MIN [id number] Diagnos is: ICD-10- CM L60.1 Onychol PASCUAL Lechuga 03/05 [facility] OFF/OP EST MAY X REQ PHY/QHP [id number] Diagnos is: ICD-10- CM Z48.01 Encount er for change or removal of surgica l wound dressin KAVEH Fernandez L 03/06 [facility] Encounter [id number] 03/18 [facility] OFF/OP CNSLTJ NEW/EST MOD 40 [id number] Diagnos is: ICD-10- CM H90.A31 Mix cndct/s nrl hear loss,un i,r ear w rstrcd hear cntra side JOSEPHINE DAVIS R 03/24 [facility] HEARING AID EXAM BOTH EARS [id number] Diagnos is: ICD-10- CM 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 RICO BARRON RD 04/13 [facility] En[facility] [id number] 1.04/14 [facility] Encounter [id number] [facility] Out[facility] Encounter [id number] 04/23 [facility] Encounter [id number] 1.04/24 [facility] OFFICE O/P EST MOD 30 MIN [id number] Diagnos is: ICD-10- CM 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 RANCHO RODRIGUEZ 04/28 [facility] CONFORMITY EVALUATION [id number] Diagnos is: ICD-10- CM Z46.1 Encount er for fitting and adjustm ent of hearing aid Yossi HARRINGTON 05/05 [facility] Out[facility] Encounter [id number] 05/08 [facility] En[facility] [id number] 05/27 [facility] En[facility] [id number] 06/01 [facility] Encounter [id number] 06/03 [facility] Encounter [id number] 06/06 [facility] Encounter [id number] [facility] Encounter [id number] [facility] Encounter [id number] [facility] Encounter [id number] 06/25 [facility] Encounter [id number] 06/25 [facility] En[facility] [id number] 06/26 [facility] Encounter [id number] 07/02 [facility] Encounter [id number] 07/06 [facility] Encounter [id number] 07/14 [facility] Out[facility] Encounter [id number] 07/14 [facility] Out[facility] Encounter [id number] 07/14 [facility] Encounter [id number] 07/16 [facility] En[facility] [id number] 07/20 [facility] Encounter [id number] 08/06 [facility] Encounter [id number] 08/17 [facility] Encounter [id number] 08/24 [facility] En[facility] [id number] 08/27 [facility] OFFICE O/P EST MOD 30 MIN [id number] Diagnos is: ICD-10- CM 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, hole, or pseudoh ole, right eye CALDERON,LACE Y J 09/01 [facility] En[facility] [id number] 09/02 [facility] Encounter [id number] 09/22 [facility]counter [id number] 09/23 [facility] [id number] 09/24 [facility]counter [id number] 09/25 [facility] [id number] 09/26 [facility] [id number] 09/28 [facility] [id number] 09/28 [facility] [id number] 09/30 [facility] [id number] 10/04 [facility] [id number] 10/05 [facility] [id number] 10/07 [facility] [id number] 10/11 [facility] [id number] 10/15 [facility] [id number] 10/15 [facility] [id number] 10/21 [facility] [id number] 10/30 [facility] [id number] 11/02 [facility] [id number] 11/03 [facility] [id number] 11/05 [facility] [id number] 11/11 [facility] OFFICE O/P EST LOW 20 MIN [id number] Diagnos is: ICD-10- CM M25.572 Pain in left ankle and joints of left foot [address] 11/11 [facility] [id number] 11[facility] Outpatient [facility]counter [id number] 11/20 [facility] Social History Combined list of available smoking, tobacco, and other social history from Department of Defense and Veterans Affairs facilities. Social History Type Response Date Comment Sourc e Tobacco smoking status NHIS VA-TOBACCO USE FORMER CIGARETTES 11[facility]20[facility] History of tobacco use AK-TOBACCO NEVER USED OTHER TYPE 11[facility]11/2024 [facility] History of tobacco use AK-TOBACCO QUIT 15 YRS OR MORE 10/16/2023 [facility] [place] [facility] History of tobacco use VA-TOBACCO FORMER USER 07/04/2022 [facility] History of tobacco use NSG NO TOBACCO USE PAST 30 DAYS 03/27/2022 [facility] History of tobacco use NSG NO TOBACCO USE PAST 30 DAYS 03/05/2022 [facility] History of tobacco use NSG NO TOBACCO USE PAST 30 DAYS 03/02/2022 [facility] History of tobacco use AK-TOBACCO QUIT 15 YRS OR MORE 06/28/2021 [facility] History of tobacco use VA-TOBACCO FORMER USER 05/26/2020 [facility] History of tobacco use VA-TOBACCO NEVER USED 05/23/2018 [facility] Plan of Care List of future care activities from [facility] facilities. Additional future care activities may be listed in the Assessment and Plan section. Date/Time Care Activity Care Activity Detail Facili ty 11/25/2024 AMBULATORY - MEDICINE AMBULATORY - MEDICI [facility] Advance Directives List of completed, amended, or rescinded Advance Directives on record at Department of Veterans Affairs facilities. An actual copy of the Directive is not included. Date Advance Directive Provider Source 02/19/2022 ADVANCE DIRECTIVE JOCE [facility]STORENA [facility] 11/16/2020 [facility]ANCE [facility]
== END 2024-11-23 11:23 | disposition home or self-care (01) ==
LOC: HO.HOS 10:57
PROVIDERS: PCP Internal Medicine
DX: M25.571 Pain in right ankle and joints of right foot (principal); T84.7XXA Infection and inflammatory reaction due to other internal orthopedic prosthetic devices, implants and grafts, initial encounter
CPT/HCPCS: 99024

== ENCOUNTER → 2024-11-23 10:57 | Outpatient (BNVA) | payer OTHER, SELFPAY | PROVIDERS: PCP Internal Medicine | DX: M00.9 Pyogenic arthritis, unspecified (principal); T84.7XXD Infection and inflammatory reaction due to other internal orthopedic prosthetic devices, implants and grafts, subsequent encounter; Z98.890 Other specified postprocedural states | CPT/HCPCS: 99212 ==

== ENCOUNTER 2024-11-30 10:57 | Outpatient (AMB) | payer OTHER, SELFPAY ==
--- NOTE | 2024-11-30 11:08 | A.OFFVIS_ITS ---
Intake Visit Reasons: PO LT ankle I&D/SHRUTI 09/22/24 NE-wound check Intake Note: Reed is an 84 year old male who presents today for a post operative follow up about 2 months s/p Left Ankle SHRUTI and I&D 09/22/24. He is about 10 months s/p Left Ankle ORIF 01/21/24. At his last visit he was instructed to conduct daily dressing changes. Currently states his incision has healed and he has no pain. He contiues to wear his cam walker boot along with his lace up brace. Allergies niacin Allergy (Severe, Verified 11/30/24 11:13) Upset Stomach procaine [From Novocain] Allergy (Severe, Verified 11/30/24 11:13) I GET MEAN simvastatin Adverse Reaction (Severe, Verified 11/30/24 11:13) myopathy HPI HPI PO LT ankle I&D/SHRUTI 09/22/24 NE-wound check: Details: Reed is an 84 year old male who presents today for a post operative follow up about 2 months s/p Left Ankle SHRUTI and I&D 09/22/24. He is about 10 months s/p Left Ankle ORIF 01/21/24. At his last visit he was instructed to conduct daily dressing changes. Currently states his incision has healed and he has no pain. He contiues to wear his cam walker boot along with his lace up brace. [facility] Medical History Ankle fracture, lateral malleolus, closed Hyperlipidemia HTN (hypertension) CAD (coronary artery disease) Murmur, cardiac Chest pain COPD (chronic obstructive pulmonary disease) Asbestosis Surgical History S/P TAVR (transcatheter aortic valve replacement) Stented coronary artery Hx of cardiac catheterization Family History Father CAD (coronary artery disease) Mother No problems noted. Social History Household Members: None Housing: House Are you a primary rental boats caretaker to a significant other at home: No Do you presently have visiting nurse or other home services: Yes Comment: pt refusing bed alarm; ongoing Patient Tobacco Use Status: Former Tobacco user Tobacco use type: Cigarette and Cigar Years Smoked: 14 years old e-Cigarette/Vaping Use: Former Use Second Hand Smoke Exposure: No service: No Review of Systems Const All systems reviewed & are unremarkable except as noted in HPI and below Physical Exam Vital Signs: Last Vital Signs Temp 97.8 F 09/24/24 03:15 Pulse 69 09/24/24 03:15 Resp 18 09/24/24 03:15 BP 167/77 H 09/24/24 03:15 Pulse Ox 93 09/24/24 03:15 O2 Del Method Room Air 09/24/24 03:15 O2 Flow Rate 2 09/23/24 07:35 BMI result Body Mass Index 28.2 Extrem Other: Incision site on left ankle clean, dry, intact There is a scab at the most distal aspect Wound from previous visits appear to be well healed in the most proximal aspect of the incision coverage throughout the entire incision site. 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: Comment: He is doing well on Daptomycin Code(s): T84.7XXA - Infection and inflammatory reaction due to other internal orthopedic prosthetic devices, implants and grafts, initial encounter Category: Medical Plan 1.Status post I and D and removal of hardware of left ankle DOS09/22/2024 patient appears to be recovering well postoperatively Patient is educated about the typical recovery course Scraping last week appears to have encouraged good soft tissue growth into the sunken area of the incision site Daily dressing changes per the patient Patient is ordered outpatient PT for range of motion, gait training, strengthening of the left ankle Patient is encouraged to begin only using the lace-up ankle brace, and to attempt to discontinue use of the boot over shorter distances Follow-up in 3-4 weeks sooner with any acute concerns Orders: Orders PT Evaluation and Treatment Today T84.7XXA - Infection and inflammatory reaction due to other internal orthopedic prosthetic devices, implants and grafts, initial encounter Coding Level of Care Code Global (12769) Diagnoses 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
--- OUTSIDE RECORDS SUMMARY | 2024-11-30 11:40 | XMS_ITS ---
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 [facility] Address [address] [place] [address] Care Team Providers Care Nurse Discharge Planner Name Role Phone JOSUE SIMMONS Primary Care [...] Dec 19, 2007 MEDICAR E SUPPLEM E [id number] NYDIA HUERTA UL PATIENT [employer] MEDICARE SUPPLEMEN YORDAN Dec 19, 2007 MEDICAR E SUPPLEM E [id number] [phone] NYDIA HUERTA UL PATIENT [employer] [place] MEDICARE SUPPLEMEN YORDAN BANKE RS Dec 19, 2007 NONE [id number] NYDIA HUERTA UL PATIENT MEDICARE (WNR) MEDICARE (M) PART B Oct 13, 2006 PART B [id number] NYDIA HUERTA UL PATIENT MEDICARE (WNR) MEDICARE (M) PART B Oct 13, 2006 PART B [id number] NYDIA HUERTA UL PATIENT MEDICARE (WNR) MEDICARE (M) PART B Oct 13, 2006 PART B [id number] [phone] NYDIA HUERTA PATIENT MEDICARE (WNR) MEDICARE (M) PART B Oct 13, 2006 PART B [id number] NYDIA HUERTA PATIENT MEDICARE (WNR) MEDICARE (M) PART A Sep 13, 2003 PART A [id number] NYDIA HUERTA PATIENT MEDICARE (WNR) MEDICARE (M) PART A Sep 13, 2003 PART A [id number] NYDIA HUERTA PATIENT MEDICARE (WNR) MEDICARE (M) PART A Sep 13, 2003 PART A [id number] NYDIA HUERTA PATIENT MEDICARE (WNR) MEDICARE (M) PART A Sep 13, 2003 PART A [id number] [phone] NYDIA HUERTA PATIENT Selected Encounter This section includes the information on record at NH for the Encounter. Date/Time Encounter Type Encounter Description Reason Pro vider Source November 26, 2024 10:19 AM Outpatient Encounter PRIMARY CARE/MEDICINE IHE Encounter [...] Type Appointme nt Facility Name Jan 13, 2025 10:00 AM [facility] May 12, 2025 10:00 AM AMBULATORY MEDICINE [facility] Active, Pending, and Scheduled Orders This [...] November 18, 2024 10:32 AM Consult Order [facility] Cons Linux Network Administrator's Choice [facility] November 19, 2024 11:40 AM Consult Order [facility] Cons Linux Network Administrator's Choice [facility] Lab Results: +/- 30 days of [...] Type Comment Nov 11, 2024 03:10 PM [facility] MICROSCOPIC AUTOMATED, URINE URINE Specimen T ype: URINE Comment: If Glucose = >500 and Ketones are positive, please alert the Physician. Ordering Provider: JOSUE SIMMONS Report Released Date/Time: Nov 11, 2024 03:09 PM Reporting Lab: [address] [address] Performing Lab: [facility] [address] [facility] [address] UA WBC 0-5 /[HPF] 0-5 UA BACTERIA 1+ /[HPF] NoneObs UA MUCUS FEW /[LPF] Trace UA RBC 3-5 /[HPF] 0-3 Nov 11, 2024 03:10 PM [facility] URINALYSIS CLEAN CATCH URINE Specimen Type: U RINE Comment: If Glucose = >500 and Ketones are positive, please alert the Physician. Ordering Provider: JOSUE SIMMONS Report Released Date/Time: Nov 11, 2024 03:09 PM Reporting Lab: [facility] [address] [facility] [address] Performing Lab: [address] [address] UA COLOR Yellow Yellow UA APPEARANCE Clear Clear UA GLUCOSE Normal mg/dL Negative UA KETONES NEGATIVE mg/dL Negative UA BLOOD NEGATIVE mg/dL Negative UA PROTEIN 30 mg/dL Negative UA NITRITE NEGATIVE mg/dL Negative UA BILIRUBIN NEGATIVE mg/dL Negative UA SPECIFIC GRAVITY 1.030 H 1.016-1.022 UA pH 6.0 5.0-9.0 UA UROBILINOGEN Normal mg/dL <2.0 UA LEUKOCYTE NEGATIVE Negative Nov 09, 2024 07:33 AM [facility] BASIC METABOLIC PANEL (fasting) SERUM Specime n Type: SERUM No comment entered. Ordering Provider: JOSUE SIMMONS Report Released Date/Time: Oct 31, 2024 06:34 PM Reporting Lab: [address] [address] Performing Lab: [address] [address] UREA NITROGEN 24 mg/dL 8-26 GLUCOSE 102 mg/dL H 65-100 SODIUM 141 mmol/L 136-145 POTASSIUM 4.0 mmol/L 3.5-5.1 CHLORIDE 107 mmol/L 98-107 CO2 23 meq/L 23-31 CALCIUM 9.1 mg/dL 8.8-10 CREATININE, Serum 0.81 mg/dL 0.72-1.25 eGFR(CKD-EPI 2020) 86 mL/min >60 Nov 09, 2024 07:33 AM [facility] LIVER FUNCTION SERUM Specimen Type: SERUM No comment entered. Ordering Provider: JOSUE SIMMONS Report Released Date/Time: Oct 31, 2024 06:34 PM Reporting Lab: [address] [address] Performing Lab: [address] [address] PROTEIN,TOTAL 7.0 g/dL 6.4-8.3 ALBUMIN 3.4 g/dL 3.2-4.6 ALKALINE PHOSPHATASE 121 U/L 40-150 AST 42 U/L H 5-34 ALT 25 U/L 0-55 BILIRUBIN, TOTAL 0.5 mg/dL 0.2-1.2 Nov 09, 2024 07:33 AM [facility] CBC AND DIFF (AUTO) BLOOD Specimen Type: BLOO D No comment entered. Ordering Provider: JOSUE SIMMONS Report Released Date/Time: Oct 31, 2024 06:34 PM Reporting Lab: [facility] [address] [facility] [address] Performing Lab: [facility] [address] [facility] [address] WBC 9.44 10*3/uL 4.50-11.00 RBC 4.01 10*6/uL [...] 10*3/uL 0.00-0.00 Nov 09, 2024 07:33 AM [facility] LIPID PANEL FASTING SERUM Specimen Type: SERU M No comment entered. Ordering Provider: JOSUE SIMMONS Report Released Date/Time: Oct 31, 2024 06:34 PM Reporting Lab: [facility] [address] [facility] [address] Performing Lab: [facility] [address] [facility] [address] CHOLESTEROL 130 mg/dL TRIGLYCERIDE 93 mg/dL 0-150 LDL calculated 74 mg/dL 0-129 CHOL/HDL 3.5 HDL CHOLESTEROL 37 mg/dL L >40 Nov 09, 2024 07:33 AM [facility] TSH SERUM Specimen Type: SERUM No comment entered. Ordering Provider: JOSUE SIMMONS Report Released Date/Time: Oct 31, 2024 06:34 PM Reporting Lab: [facility] [address] [facility] [address] Performing Lab: [facility] [address] [facility] [address] TSH 3.49 u[IU]/mL 0.35-4.94 Nov 09, 2024 07:33 AM [facility] URINALYSIS CLEAN CATCH URINE Specimen Type: U RINE Comment: If Glucose = >500 and Ketones are positive, please alert the Physician. Ordering Provider: JOSUE SIMMONS Report Released Date/Time: Oct 31, 2024 06:34 PM Reporting Lab: [address] [address] Performing Lab: [facility] [address] [facility] [address] UA COLOR Yellow Yellow UA APPEARANCE Clear Clear UA GLUCOSE Normal mg/dL Negative UA KETONES NEGATIVE mg/dL Negative UA BLOOD SMALL mg/dL Negative UA PROTEIN 20 mg/dL Negative UA NITRITE NEGATIVE mg/dL Negative UA BILIRUBIN NEGATIVE mg/dL Negative UA SPECIFIC GRAVITY 1.030 H 1.016-1.022 UA pH 6.0 5.0-9.0 UA UROBILINOGEN Normal mg/dL <2.0 UA LEUKOCYTE NEGATIVE Negative Nov 09, 2024 07:33 AM [facility] MICROSCOPIC AUTOMATED, URINE URINE Specimen T ype: URINE Comment: If Glucose = >500 and Ketones are positive, please alert the Physician. Ordering Provider: JOSUE SIMMONS Report Released Date/Time: Oct 31, 2024 06:34 PM Reporting Lab: [address] [address] Performing Lab: [facility] [place] [facility] [address] [facility] [address] UA MUCUS FEW /[LPF] Trace UA HYALINE CASTS 2-4 /[LPF] 0-2 UA CALCIUM OXALATE CRYSTALS MANY /[HPF] Not Established UA RBC 6-10 /[HPF] H 0-3 UA SQUAMOUS EPITH FEW /[HPF] Social History: Smoking Status (Most current) and [...] 02:30 PM VA-TOBACCO USE FOR ROSANA CIGARETTES [facility] Tobacco Use History This section includes a history of the smoking, or tobacco-related health factors, that were collected on or before the date of the Encounter. The data comes from the [place] facility where the Encounter took place. Date/Time Smoking Status/Tobacco Use Comment F acility Nov 11, 2024 02:30 PM VA-TOBACCO USE FOR ROSANA CIGARETTES [facility] [place] [facility] Oct 16, 2023 01:30 PM VA-TOBACCO FORMER USER [facility] [place] [facility] Oct 16, 2023 01:30 PM VA-TOBACCO QUIT 15 YRS OR MORE [facility] [place] [facility] Jul 04, 2022 11:00 AM VA-TOBACCO FORMER USER [facility] [place] [facility] Jul 04, 2022 11:00 AM VA-TOBACCO QUIT 15 YRS OR MORE [facility] [place] [facility] Jun 28, 2021 10:30 AM VA-TOBACCO FORMER USER [facility] [place] [facility] Jun 28, 2021 10:30 AM VA-TOBACCO QUIT 15 YRS OR MORE [facility] [place] [facility] May 26, 2020 08:00 AM VA-TOBACCO FORMER USER [facility] [place] [facility] May 26, 2020 08:00 AM VA-TOBACCO QUIT 15 YRS OR MORE [facility] [place] [facility] May 23, 2018 11:21 AM VA-TOBACCO NEVER USED [facility] Advance Directives: All historical and current [...] Feb 19, 2022 ADVANCE DIRECTIVE JOCE CASTORENA [facility] November 16, 2020 ADVANCE DIRECTIVE JOSUE SIMMONS [facility] Pathology Reports: +/- 30 days of [...] the Encounter. The data comes from all [place] treatment facilities. Date/Time Pathology Report Provider Source Nov 11, 2024 03:10 PM LR MICROBIOLOGY RE PORT: Reporting Lab: [facility] [CLIA# [id number]] [address] [place] [id number] Accession [UID]: [id number] [[id number]] Received: Nov 11, 2024@15:10 Collection sample: URINE CLEAN CATCH Collection date: Nov 11, 2024 15:10 Site/Specimen: URINE Provider: JOSUE SIMMONS Test(s) ordered: URINE CULTURE(MWROX).......... completed: November 16, 2024 10:31 * BACTERIOLOGY FINAL REPORT => November 16, 2024 10:31 TECH CODE: [id number] Bacteriology Remark(s): NO GROWTH IN 24 HOURS, FINAL REPORT TO FOLLOW. FINAL AEROBIC REPORT: NO GROWTH =--=--=--=--=--=--=--=-- =--=--=--=--=--=--=--=-- =--=--=--=--=--=--=--=-- =--=-- Performing Laboratory: Bacteriology Report Performed By: [facility] [CLIA# [id number]] [address] [place] [address] KAVITHA TREJO [facility] Encounter Notes: All associated encounter notes This section contains the clinical notes associated to the Encounter. Date/Time Encounter Note(s) Provider Source November 26, 2024 10:19 AM NONVA CONSULT: LOCAL TITLE: MD/OUTSIDE CONSULT REPORT SUMMARY STANDARD TITLE: NONVA CONSULT DATE OF NOTE: NOVEMBER 26, 2024@10:19 ENTRY DATE: NOVEMBER 26, 2024@10:19:18 AUTHOR: JOSUE SIMMONS EXP COSIGNER: URGENCY: STATUS: COMPLETED 11-18-24 office visit [facility] Chief complaint: Follow-up left ankle infection No sign of infection Wound well-healed Doing well on daptomycin /eleanor/ Josue Simmons MD Staff Physician Signed: 11/26/2024 10:19 JOSUE SIMMONS [facility]
--- OUTSIDE RECORDS SUMMARY | 2024-11-30 11:40 | XMS_ITS | Patient Health Record ---
Author Organization [facility] [place] Address [address] [place] [address] Care Team Providers Care Supervisor Carpenters Name Role Phone Josue Simmons MD Primary Care Provider Lyn Aquino Unavailable [phone] Allergies Allergen (clinical drug ingredient) Drug/Non Drug [...] primary osteoarthritis of the ankle and/or foot (685664803) Primary osteoarthrit is, right ankle and foot (M19.071) Active confirmed Encounters Encounter Location Date Provider Diagnosis [facility] [place] [address] [place] [address] 03/09/2024 Lyn Lund [facility] [place] [address] [facility] [place] [address] 03/12/2024 Lyn Lund [facility] [place] [address] [facility] [place] [address] 04/02/2024 Lyn Lund Plan Of Treatment Pending Test Test Name Order Date X ray : Foot, right 3V 01/20/2015 X ray : Ankle, right 3V 03/04/2017 Insurance Providers Payer Name Payer Address Payer Phone Subscriber Number Group Number Insured Name Patient Relationship to Insured Coverage Start Date Coverage End Date Medicare National [employer] [address] [place] [address] [id number] Reed Mallory Self - patient is the insured [employer] [address] [place] [address] Reed Mallory Self - patient is the [...]
--- OUTSIDE RECORDS SUMMARY | 2024-11-30 11:41 | XMS_ITS ---
Author Organization [facility] Address [address] [place] [address] Care Team Providers Care Manganese Wheeler Name Role Phone Josue Simmons MD Primary Care Provider Unavailab melinda Lyn Lund Unavailable [phone] Allergies Allergen (clinical drug ingredient) Drug/Non Drug [...] 04/23/2024 Encounters Encounter Location Date Provider Diagnosis [facility] [address] [place] [address] 04/23/2024 Lyn Lund Plan Of Treatment No Information Progress Notes * Reed MALLORY HDOB:1940 (84 yo M)Acc No.[id number]:04/23/2024 Progress Notes Patient:Reed VANCE Provider:?Lyn Lund DPM :1940???Age:83 Y???Sex:Male Chu e:04/23/2024 Address:[address] [place], [place] [id number] Pcp:Josue Simmons MD Subjective: * Chief Complaints: [...] Lund DPM Date:?2023 Generated for Yokasta palacios/Ilda/Cocoitting on:?11/30/2024 11:41 AM EDT
--- OUTSIDE RECORDS SUMMARY | 2024-11-30 11:41 | XMS_ITS ---
Author Organization [facility] Address [address] [place] [address] Care Team Providers Care Terra Cotta Roofer Helper Name Role Phone Josue Simmons MD Primary Care Provider UnavailLyn Main [phone] REASON FOR VISIT 04/23/24 Encounters Encounter Location Date Provider Diagnosis [facility] [address] [place] [address] 04/02/2024 Lyn Lund Plan Of Treatment No Information Progress Notes * Reed MALLORY HDOB:1940 (83 yo M)Acc No.[id number]:04/02/2024 Patient:?Reed Mallory :1940???Age:83 Y???Sex:Male Address:[address] [place] [address] * true * Date:? Generated for Printi ng/Famicahelg/eTransmitting on:?11/30/2024 11:41 AM EDT
--- OUTSIDE RECORDS SUMMARY | 2024-11-30 11:41 | XMS_ITS | Continuity of Care Document ---
Author Name [facility] Organization [facility] Care Team Providers Care Mercerizer Name Role Phone [facility] Unavailable Unavailable Problems Combined list of problems [...] By: BYRON BARRON Comment: Referred to urology [facility] Chronic dermatitis Active 023 Condition Oct 05, 2022 Entered By: BYRON BARRON Comment: referred to dermatology [facility] Chest Pain (SCT [id number]) Active 022 Condition Jan 02, 2022 Entered By: BYRON BARRON Comment: ordered stress test [facility] COPD - Chronic Obstructive Pulmonary Disease (SCT [id number]) Active 022 Condition Dec 28, 2021 Entered By: BYRON BARRON Comment: on inhalers [facility] Cataract Active Condition Oct 12, 2020 Entered By: BYRON BARRON Comment: referred for surgery [facility] HTN - Hypertension (SCT [id number]) Active 021 Condition Oct 21, 2020 Entered By: BYRON BARRON Comment: treated witn medication [facility] Hypercholesterolemia (SCT [id number]) Active 021 Condition Oct 21, 2020 Entered [...] in diseases classified elsewhere, bilateral [facility] Diagnosis [facility] Medications Combined list of outpatient medications [...] WITH GRAPEFRU IT JUICE ORAL ACTIVE 12/24/2024 [id number] MLAPADandy,TH [place] K 2024 90 [facility] AMOXICILLIN TRIHYDRATE 875MG/CLAVU LANATE K 125MG TAB TAKE 1 TABLET BY MOUTH TWICE DAILY FOR INFECTIO N ORAL 11/15/2023 [id number] 4 MAUREEN BARRON PAIGE D 2023 20 [facility] ASPIRIN 81MG TAB,CHEWABL E CHEW ONE TABLET BY MOUTH ONCE DAILY ORAL ACTIVE JANINE HAMMOND R 2021 [facility] ATORVASTATI N CA 80MG TAB TAKE ONE TABLET BY MOUTH AT BEDTIME ORAL DISCONT INUED BY PROVIDE R 06/26/2025 [id number] MAUREEN BARRON PAIGE D 2023 90 [facility] ATORVASTATI N CA 80MG TAB TAKE ONE TABLET BY MOUTH AT BEDTIME ORAL DISCONT INUED 06/19/2024 [id number] 4 MOHAMUD ARGUETA AV 2022 90 [facility] CARBOXYMETH YLCELLULOSE NA 0.5% SOLN,OPH INSTILL 1 DROP INTO EACH EYE FOUR TIMES A DAY FOR DRY EYE OPHTHA LMIC ACTIVE 09/02/2025 [id number] OSBALDO CALDERON EY J 2024 45 [facility] CEPHALEXIN 500MG CAP TAKE ONE CAPSULE BY MOUTH EVERY 8 HOURS FOR INFECTIO N ORAL 04/04/2024 [id number] 4 MAMTA STERN EMIL MARTÍNEZ 2023 21 [facility] DOCUSATE NA 100MG CAP TAKE ONE CAPSULE BY MOUTH TWICE DAILY FOR 7 DAYS TO SOFTEN STOOL ORAL 10/25/2024 [id number] 5 MISA CANTUÁngela NERI 2024 14 [facility] DOXYCYCLINE HYCLATE 100MG TAB TAKE ONE TABLET BY MOUTH TWICE DAILY ORAL ACTIVE 10/27/2025 [id number] 5 Janes LOPEZ MD 2024 60 [facility] EYELID CLEANSER,EY E SCRUB PAD USE 1 PAD TOPICALL Y EVERY MORNING BLEPHARI TIS TOPICA L ACTIVE 09/02/2025 [id number] 5 OSBALDO CALDERON J 2024 90 [facility] EZETIMIBE 10MG TAB TAKE ONE TABLET BY MOUTH ONCE DAILY TO LOWER CHOLESTE ROL ORAL ACTIVE 06/26/2025 [id number] MAUREEN BARRON 2023 90 [facility] EZETIMIBE 10MG TAB TAKE ONE TABLET BY MOUTH ONCE DAILY TO LOWER CHOLESTE ROL ORAL DISCONT INUED 06/19/2024 [id number] 4 MOHAMUD ARGUETA AV 2022 90 [facility] HYDROCHLORO THIAZIDE 25MG TAB TAKE ONE TABLET BY MOUTH ONCE DAILY ORAL ACTIVE 12/24/2024 [id number] 5 RAJI VAIL M 2024 90 [facility] HYDROCHLORO THIAZIDE 25MG TAB TAKE ONE TABLET BY MOUTH ONCE DAILY ORAL 06/19/2024 [id number] MOHAMUD ARGUETA AV 2023 90 [facility] METOPROLOL SUCCINATE 50MG TAB,SA TAKE ONE TABLET BY MOUTH ONCE DAILY FOR BLOOD PRESSURE /HEART ORAL ACTIVE 06/26/2025 [id number] 5 MAUREEN BARRON D 2023 90 [facility] METOPROLOL SUCCINATE 50MG TAB,SA TAKE ONE TABLET BY MOUTH ONCE DAILY FOR BLOOD PRESSURE /HEART ORAL DISCONT INUED 06/19/2024 [id number] 4 MOHAMUD ARGUETA AV 2022 90 [facility] OXYCODONE HCL 5MG TAB TAKE ONE TABLET BY MOUTH EVERY 4 HOURS NEEDED FOR PAIN ORAL 10/25/2024 [id number] 5 MEUSE,TA- NERI 2024 42 [facility] TRIAMCINOLO NE ACETONIDE 0.1% CREAM,TOP APPLY A MODERATE AMOUNT TOPICALL Y TWICE DAILY NEEDED FOR ITCHING TOPICA L 10/24/2024 [id number] 4 MAUREEN BARRON PAIGE D 2023 454 [facility] Allergies, Adverse Reactions, Alerts Combined list of allergies from Department of Defense and Veterans Affairs facilities. It does not include entries that were removed or entered in error. Substance Category Reaction Severity Reaction type Status Date Reported Comments Source LIDOCAINE Propensity to adverse reactions to drug (finding) Itching MODERATE active 2 [facility] [place] Propensity to adverse reactions to drug (finding) Feeling agitated active [facility] Propensity to adverse reactions to drug (finding) active 2 [facility] Immunizations Combined list of available immunizations from the Department of Defense and Veterans Affairs facilities. Immunization Series Date Given Administered By Site Reaction Lot Number CVX Code Drug Chief Specialist Leed Status Comments Source COVID-19 (MODERNA), MRNA, LNP-S, PF, 50 MCG/0.5 ML (AGES 12+ YEARS) 7 2023 ALMA MAHER LEFT DELTO ID [id number] 312 complet ed [facility] INFLUENZA, HIGH-DOSE, TRIVALENT, PF 2023 ALMA MAHER LEFT DELTO ID [id number] 135 complet ed Completed Series, [facility] RSV, BIVALENT, PROTEIN SUBUNIT RSVPREF, DILUENT RECONSTITUTED , 0.5 ML, PF 1 2023 GRETCHEN ANDRADE E LEFT DELTO ID [id number] 305 complet ed [facility] AT [facility] COVID-19 (MODERNA), MRNA, LNP-S, PF, 50 MCG/0.5 ML (AGES 12+ YEARS) 1 2023 GRETCHEN ANDRADE E LEFT DELTO ID [id number] 312 complet ed [facility] INFLUENZA, HIGH-DOSE, QUADRIVALENT 2022 JERRI SHAIKH M LEFT DELTO ID [id number] 197 complet ed [facility] AT [facility] COVID-19 (MODERNA), MRNA, LNP-S, BIVALENT BOOSTER, PF, 50 MCG/0.5 ML OR 25MCG/0.25 ML DOSE 2021 JERRI SHAIKH M LEFT DELTO ID [id number] 229 complet ed Booster for Series, [facility] AT [facility] INFLUENZA VACCINE, QUADRIVALENT, ADJUVANTED 2021 205 complet ed [facility] COVID-19 (MODERNA), MRNA, LNP-S, PF, 100 MCG/0.5ML DOSE OR 50 MCG/0.25ML DOSE 3 2021 207 complet ed MOD; [id number] ; 2 [facility] PNEUMOCOCCAL CONJUGATE PCV20, POLYSACCHARID E [id number] CONJUGATE, ADJUVANT, PF 2021 216 complet ed [facility] COVID-19 (MODERNA), MRNA, LNP-S, PF, 100 MCG OR 50 MCG DOSE 3 2020 207 complet ed MOD; [id number]; 2 [facility] INFLUENZA, UNSPECIFIED FORMULATION 2020 88 complet ed [facility] TDAP 2020 115 complet ed [facility] COVID-19 (MODERNA), MRNA, LNP-S, PF, 100 MCG/0.5 ML DOSE 2 2020 207 complet ed MOD; [id number]; 1 [facility] COVID-19 (MODERNA), MRNA, LNP-S, PF, 100 MCG/0.5 ML DOSE 1 2020 207 complet ed MOD; [id number]; 1 [facility] [...] SEASONAL 2017 135 complet ed 02, Partner: [facility]. Administe red by: ARLET BOLTON (DGM=[phone]). Partner 0 Lot#: [id number] Mfr: Sanofi Pasteur; Dosage: 0.5 [facility] PNEUMOCOCCAL POLYSACCHARID E [id number] 2016 33 complet ed 02, Partner: [facility]. Administe red by: ARLET BOLTON (APR=[phone]). Partner 0 Lot#: [id number] Mfr: [employer]; Dosage: 0.5 [facility] INFLUENZA, HIGH DOSE SEASONAL 2016 135 complet ed 02, Partner: [facility]. Administe red by: ARLET BOLTON (UUZ=[phone]). Partner 0 Lot#: [id number] Mfr: Sanofi Pasteur; Dosage: 0.5 [facility] Results Combined [...] Nov 11, 2024 03:09 PM Reporting Lab: [facility] [place] [address] [address] Performing Lab: [facility] [place] [address] [address] [facility] MICROSCO PIC AUTOMATE D, URINE BACTERIA [#/AREA] IN URINE SEDIMENT BY MICROSCOPY HIGH POWER FIELD 1+/[HPF] 11/11 Specimen Type: URINE Comment: If Glucose = >500 and Ketones are positive, please alert the Physician. Ordering Provider: JAMILA BARRON Report Released Date/Time: Nov 11, 2024 03:09 PM Reporting Lab: [facility] [place] [address] [address] Performing Lab: [facility] [place] [facility] [address] [facility] [facility] [address] [facility] [facility] [employer] PIC AUTOMATE D, URINE MUCUS [#/AREA] IN URINE SEDIMENT BY MICROSCOPY LOW POWER FIELD FEW/[LPF ] 11/11 Specimen Type: URINE Comment: If Glucose = >500 and Ketones are positive, please alert the Physician. Ordering Provider: JAMILA BARRON Report Released Date/Time: Nov 11, 2024 03:09 PM Reporting Lab: [facility] [place] [address] [address] Performing Lab: [facility] [address] [address] [facility] [place] [facility] MI[employer]OSCO PIC AUTOMATE D, URINE ERYTHROCYT ES [#/AREA] IN URINE SEDIMENT BY MICROSCOPY HIGH POWER FIELD 3-5/[HPF ] 0 - 3 11/11 Specimen Type: URINE Comment: If Glucose = >500 and Ketones are positive, please alert the Physician. Ordering Provider: JAMILA BARRON Report Released Date/Time: Nov 11, 2024 03:09 PM Reporting Lab: [facility] [place] [address] [address] Performing Lab: [facility] [place] [address] [address] [facility] [place] [facility] URINALYS IS CLEAN CATCH COLOR OF URINE Yellow 11/11 Specimen Type: URINE Comment: If Glucose = >500 and Ketones are positive, please alert the Physician. Ordering Provider: JAMILA BARRON Report Released Date/Time: Nov 11, 2024 03:09 PM Reporting Lab: [facility] [place] [address] [address] Performing Lab: [facility] [place] [address] [address] [facility] [place] [facility] URINALYS IS CLEAN CATCH APPEARANCE OF URINE Clear 11/11 Specimen Type: URINE Comment: If Glucose = >500 and Ketones are positive, please alert the Physician. Ordering Provider: JAMILA BARRON Report Released Date/Time: Nov 11, 2024 03:09 PM Reporting Lab: [facility] [place] [address] [address] Performing Lab: [facility] [place] [address] [address] [facility] [place] [facility] URINALYS IS CLEAN CATCH GLUCOSE [MASS/VOLU ME] IN URINE Normalmg /dL 11/11 Specimen Type: URINE Comment: If Glucose = >500 and Ketones are positive, please alert the Physician. Ordering Provider: JAMILA BARRON Report Released Date/Time: Nov 11, 2024 03:09 PM Reporting Lab: [facility] [address] [facility] [facility] [address] Performing Lab: [facility] [address] [facility] [facility] [address] [facility] URINALYS IS CLEAN CATCH KETONES [MASS/VOLU ME] IN URINE BY TEST STRIP NEGATIVE mg/dL 11/11 Specimen Type: URINE Comment: If Glucose = >500 and Ketones are positive, please alert the Physician. Ordering Provider: JAMILA BARRON Report Released Date/Time: Nov 11, 2024 03:09 PM Reporting Lab: [facility] [address] [facility] [facility] [address] Performing Lab: [facility] [address] [facility] [facility] [address] [facility] URINALYS IS CLEAN CATCH ERYTHROCYT ES [PRESENCE] IN URINE SEDIMENT BY LIGHT MICROSCOPY NEGATIVE mg/dL 11/11 Specimen Type: URINE Comment: If Glucose = >500 and Ketones are positive, please alert the Physician. Ordering Provider: JAMILA BARRON Report Released Date/Time: Nov 11, 2024 03:09 PM Reporting Lab: [facility] [place] [facility] [address] [facility] [address] Performing Lab: [facility] [place] [facility] [address] [facility] [address] [facility] URINALYS IS CLEAN CATCH PROTEIN [MASS/VOLU ME] IN URINE BY TEST STRIP 30 mg/dL 11/11 Specimen Type: URINE Comment: If Glucose = >500 and Ketones are positive, please alert the Physician. Ordering Provider: JAMILA BARRON Report Released Date/Time: Nov 11, 2024 03:09 PM Reporting Lab: [facility] [address] [facility] [facility] [address] Performing Lab: [facility] [address] [facility] [address] [facility] URINALYS IS CLEAN CATCH NITRITE [PRESENCE] IN URINE NEGATIVE mg/dL 11/11 Specimen Type: URINE Comment: If Glucose = >500 and Ketones are positive, please alert the Physician. Ordering Provider: JAMILA BARRON Report Released Date/Time: Nov 11, 2024 03:09 PM Reporting Lab: [facility] [place] [facility] [address] [facility] [facility] [address] Performing Lab: [facility]ITALTRN [place] [address] [address] [facility] [place] [facility] URINALYS IS CLEAN CATCH BILIRUBIN. TOTAL [PRESENCE] IN URINE NEGATIVE mg/dL 11/11 Specimen Type: URINE Comment: If Glucose = >500 and Ketones are positive, please alert the Physician. Ordering Provider: JAMILA BARRON Report Released Date/Time: Nov 11, 2024 03:09 PM Reporting Lab: [facility] [place] [address] [address] Performing Lab: [facility]TR[facility] [place] [address] [address] [facility] URINALYS IS CLEAN CATCH SPECIFIC GRAVITY OF URINE BY REFRACTOME TRY 1.030 1.016 - 1.022 11/11 H Specimen Type: URINE Comment: If Glucose = >500 and Ketones are positive, please alert the Physician. Ordering Provider: JAMILA BARRON Report Released Date/Time: Nov 11, 2024 03:09 PM Reporting Lab: [facility] [place] [address] [address] Performing Lab: [facility] [place] [address] [address] [facility]N [place] [facility] URINALYS IS CLEAN CATCH PH OF URINE BY TEST STRIP 6.0 5.0 - 9.0 11/11 Specimen Type: URINE Comment: If Glucose = >500 and Ketones are positive, please alert the Physician. Ordering Provider: JAMILA BARRON Report Released Date/Time: Nov 11, 2024 03:09 PM Reporting Lab: [facility]TR[facility] [place] [address] [address] Performing Lab: [facility] [place] [facility] [address] [facility] [facility] [address] [facility] [place] [facility] URINALYS IS CLEAN CATCH UROBILINOG EN [MASS/VOLU ME] IN URINE BY TEST STRIP Normalmg /dL <2.0 - 2.0 11/11 Specimen Type: URINE Comment: If Glucose = >500 and Ketones are positive, please alert the Physician. Ordering Provider: JAMILA BARRON Report Released Date/Time: Nov 11, 2024 03:09 PM Reporting Lab: [facility]AD[facility]OSPITALTRN [facility] [address] [facility] [facility] [address] Performing Lab: [facility] W[facility] [address] [facility] [facility] [address] [facility]ITALTRN [facility]ITALCHUSE [facility] URINALYS IS CLEAN CATCH LEUKOCYTE ESTERASE [PRESENCE] IN URINE BY TEST STRIP NEGATIVE 11/11 Specimen Type: URINE Comment: If Glucose = >500 and Ketones are positive, please alert the Physician. Ordering Provider: JAMILA BARRON Report Released Date/Time: Nov 11, 2024 03:09 PM Reporting Lab: [facility]AD[facility]PITALTRN [facility]ITALUSETS [address] [address] Performing Lab: [facility] W[facility]N [facility]ITALUSETS [facility] [address] [facility] [facility] [address] [facility]RL TRN [facility]ITALUSE [facility] BASIC METABOLI C PANEL (fasting ) UREA NITROGEN [MASS/VOLU ME] IN SERUM OR PLASMA 24 mg/dL 8 - 26 11/09 Specimen Type: SERUM No comment entered. Ordering Provider: JAMILA BARRON Report Released Date/Time: Oct 31, 2024 06:34 PM Reporting Lab: [facility] [place] [facility] [address] [facility] [facility] [address] Performing Lab: [facility] [place] [facility] [address] [facility] [facility] [address] [facility] [place] [facility] BASIC METABOLI C PANEL (fasting ) GLUCOSE [MASS/VOLU ME] IN SERUM OR PLASMA 102 mg/dL 65 - 100 11/09 H Specimen Type: SERUM No comment entered. Ordering Provider: JAMILA BARRON Report Released Date/Time: Oct 31, 2024 06:34 PM Reporting Lab: [facility] [place] [facility] [address] [facility] [address] Performing Lab: [facility] [place] [facility] [address] [facility] [address] [facility] [place] [facility] BASIC METABOLI C PANEL (fasting ) SODIUM [MOLES/VOL UME] IN SERUM OR PLASMA 141 mmol/L 136 - 145 11/09 Specimen Type: SERUM No comment entered. Ordering Provider: JAMILA BARRON Report Released Date/Time: Oct 31, 2024 06:34 PM Reporting Lab: [facility] [place] [facility] [address] [facility] [address] Performing Lab: [place] [facility] [place] [address] [address] [facility] [place] [facility] BASIC METABOLI C PANEL (fasting ) POTASSIUM [MOLES/VOL UME] IN SERUM OR PLASMA 4.0 mmol/L 3.5 - 5.1 11/09 Specimen Type: SERUM No comment entered. Ordering Provider: JAMILA BARRON Report Released Date/Time: Oct 31, 2024 06:34 PM Reporting Lab: [facility] [place] [facility] [address] [facility] [address] Performing Lab: [facility] [place] [facility] [address] [facility] [address] [facility] [place] [facility] BASIC METABOLI C PANEL (fasting ) CHLORIDE [MOLES/VOL UME] IN SERUM OR PLASMA 107 mmol/L 98 - 107 11/09 Specimen Type: SERUM No comment entered. Ordering Provider: JAMILA BARRON Report Released Date/Time: Oct 31, 2024 06:34 PM Reporting Lab: [facility] [place] [facility] [address] [facility] [address] Performing Lab: [facility] [place] [facility] [address] [facility] [address] [facility] [place] [facility] BASIC METABOLI C PANEL (fasting ) CARBON DIOXIDE, TOTAL [MOLES/VOL UME] IN SERUM OR PLASMA 23 meq/L 23 - 31 11/09 Specimen Type: SERUM No comment entered. Ordering Provider: JAMILA BARRON Report Released Date/Time: Oct 31, 2024 06:34 PM Reporting Lab: [facility]ITALRMADISON HOSPITALTRN [address] [address] Performing Lab: [facility]ITALRMADISON HOSPITALTRN [address] [address] [facility] BASIC METABOLI C PANEL (fasting ) CALCIUM [MASS/VOLU ME] IN SERUM OR PLASMA 9.1 mg/dL 8.8 - 10 11/09 Specimen Type: SERUM No comment entered. Ordering Provider: JAMILA BARRON Report Released Date/Time: Oct 31, 2024 06:34 PM Reporting Lab: [facility] [address] [address] Performing Lab: [facility]RL TRN [facility]ITALUSE[address] [address] [facility] BASIC METABOLI C PANEL (fasting ) CREATININE [MASS/VOLU ME] IN SERUM OR PLASMA 0.81 mg/dL 0.72 - 1.25 11/09 Specimen Type: SERUM No comment entered. Ordering Provider: JAMILA BARRON Report Released Date/Time: Oct 31, 2024 06:34 PM Reporting Lab: [facility] [address] Performing Lab: [facility]RL TRN [facility] [address] [facility] BASIC METABOLI C PANEL (fasting ) GLOMERULAR FILTRATION RATE/1.73 SQ M.PREDICTE D [VOLUME RATE/AREA] IN SERUM, PLASMA OR BLOOD BY CREATININE -BASED FORMULA (CKD-EPI 2020) 86 mL/min 60 11/09 Specimen Type: SERUM No comment entered. Ordering Provider: JAMILA BARRON Report Released Date/Time: Oct 31, 2024 06:34 PM Reporting Lab: [facility] [place] [facility] [address] [facility] [address] Performing Lab: [facility] [place] [facility] [address] [facility] [address] [facility] [place] [facility] CBC AND DIFF (AUTO) LEUKOCYTES [#/VOLUME] IN BLOOD BY AUTOMATED COUNT 9.44 10*3/uL 4.50 - 11.00 11/09 Specimen Type: BLOOD No comment entered. Ordering Provider: JAMILA BARRON Report Released Date/Time: Oct 31, 2024 06:34 PM Reporting Lab: [facility] [place] [facility] [address] [facility] [address] Performing Lab: [facility] [place] [facility] [address] [facility] [address] [facility] [place] [facility] CBC AND DIFF (AUTO) ERYTHROCYT ES [#/VOLUME] IN BLOOD BY AUTOMATED COUNT 4.01 10*6/uL 4.23 - 5.66 11/09 L Specimen Type: BLOOD No comment entered. Ordering Provider: JAMILA BARRON Report Released Date/Time: Oct 31, 2024 06:34 PM Reporting Lab: [facility] [place] [facility] [address] [facility] [facility] [phone] Performing Lab: [facility] [place] [facility] [address] [facility] [address] [facility] [place] [facility] CBC AND DIFF (AUTO) HEMOGLOBIN [MASS/VOLU ME] IN BLOOD 13.0 g/dL 12.8 - 17 11/09 Specimen Type: BLOOD No comment entered. Ordering Provider: JAMILA BARRON Report Released Date/Time: Oct 31, 2024 06:34 PM Reporting Lab: [facility] [place] [facility] [address] [facility] [address] Performing Lab: [facility] [place] [facility] [address] [facility] [address] [facility] [place] [facility] CBC AND DIFF (AUTO) HEMATOCRIT [VOLUME FRACTION] OF BLOOD BY AUTOMATED COUNT 37.5 39.2 - 50.4 11/09 L Specimen Type: BLOOD No comment entered. Ordering Provider: JAMILA BARRON Report Released Date/Time: Oct 31, 2024 06:34 PM Reporting Lab: [facility] [place] [facility] [address] [facility] [address] Performing Lab: [facility] [place] [facility] [address] [facility] [address] [facility] [place] [facility] CBC AND DIFF (AUTO) MCV [ENTITIC VOLUME] BY AUTOMATED COUNT 93.5 fL 82 - 99 11/09 Specimen Type: BLOOD No comment entered. Ordering Provider: JAMILA BARRON Report Released Date/Time: Oct 31, 2024 06:34 PM Reporting Lab: [facility] [place] [facility] [address] [facility] [facility] [address] Performing Lab: [facility] [place] [facility] [address] [facility] [address] [facility] [place] [facility] CBC AND DIFF (AUTO) MCHC [MASS/VOLU ME] BY AUTOMATED COUNT 34.7 g/dL 30.8 - 35.1 11/09 Specimen Type: BLOOD No comment entered. Ordering Provider: JAMILA BARRON Report Released Date/Time: Oct 31, 2024 06:34 PM Reporting Lab: [facility] [place] [facility] [address] [facility] [address] Performing Lab: [facility] [place] [facility] [address] [facility] [address] [facility] [place] [facility] CBC AND DIFF (AUTO) PLATELETS [#/VOLUME] IN BLOOD BY AUTOMATED COUNT 236 10*3/uL 140 - 360 11/09 Specimen Type: BLOOD No comment entered. Ordering Provider: JAMILA BARRON Report Released Date/Time: Oct 31, 2024 06:34 PM Reporting Lab: [facility] [place] [facility] [address] [facility] [address] Performing Lab: [facility] [place] [facility] [address] [facility] [address] [facility] [place] [facility] CBC AND DIFF (AUTO) PLATELET MEAN VOLUME [ENTITIC VOLUME] IN BLOOD BY AUTOMATED COUNT 10.0 fL 9.2 - 12.4 11/09 Specimen Type: BLOOD No comment entered. Ordering Provider: JAMILA BARRON Report Released Date/Time: Oct 31, 2024 06:34 PM Reporting Lab: [facility] [place] [facility] [address] [facility] [address] Performing Lab: [facility] [place] [address] [address] [facility] [place] [facility] CBC AND DIFF (AUTO) ERYTHROCYT E DISTRIBUTI ON WIDTH [RATIO] BY AUTOMATED COUNT 13.7 12.0 - 16.0 11/09 Specimen Type: BLOOD No comment entered. Ordering Provider: JAMILA BARRON Report Released Date/Time: Oct 31, 2024 06:34 PM Reporting Lab: [facility] [place] [address] [address] Performing Lab: [facility] [place] [address] [address] [facility] [place] [facility] CBC AND DIFF (AUTO) MONOCYTES [#/VOLUME] IN BLOOD BY AUTOMATED COUNT 1.06 10*3/uL 0.30 - 1.10 11/09 Specimen Type: BLOOD No comment entered. Ordering Provider: JAMILA BARRON Report Released Date/Time: Oct 31, 2024 06:34 PM Reporting Lab: [facility] [place] [address] [address] Performing Lab: [facility] [place] [address] [address] [facility] [place] [facility] CBC AND DIFF (AUTO) MCH [ENTITIC MASS] BY AUTOMATED COUNT 32.4 pg 26.2 - 32.6 11/09 Specimen Type: BLOOD No comment entered. Ordering Provider: JAMILA BARRON Report Released Date/Time: Oct 31, 2024 06:34 PM Reporting Lab: [facility] [place] [address] [address] Performing Lab: [facility] [place] [address] [address] [facility] [place] [facility] CBC AND DIFF (AUTO) NEUTROPHIL S/100 LEUKOCYTES IN BLOOD BY AUTOMATED COUNT 54.7 43.7 - 75.8 11/09 Specimen Type: BLOOD No comment entered. Ordering Provider: JAMILA BARRON Report Released Date/Time: Oct 31, 2024 06:34 PM Reporting Lab: [facility] [place] [facility] [address] [facility] [address] Performing Lab: [facility] [place] [facility] [address] [facility] [address] [facility] [place] [facility] CBC AND DIFF (AUTO) LYMPHOCYTE S/100 LEUKOCYTES IN BLOOD BY AUTOMATED COUNT 23.8 14.0 - 42.3 11/09 Specimen Type: BLOOD No comment entered. Ordering Provider: JAMILA BARRON Report Released Date/Time: Oct 31, 2024 06:34 PM Reporting Lab: [facility] [place] [facility] [address] [place] [phone] Performing Lab: [facility] [place] [address] [address] [facility] [place] [facility] CBC AND DIFF (AUTO) MONOCYTES/ 100 LEUKOCYTES IN BLOOD BY AUTOMATED COUNT 11.2 5.1 - 13.7 11/09 Specimen Type: BLOOD No comment entered. Ordering Provider: JAMILA BARRON Report Released Date/Time: Oct 31, 2024 06:34 PM Reporting Lab: [facility] [place] [facility] [address] [place] [address] Performing Lab: [facility] [place] [facility] [address] [place] [address] [facility] [place] [facility] CBC AND DIFF (AUTO) EOSINOPHIL S/100 LEUKOCYTES IN BLOOD BY AUTOMATED COUNT 9.0 0.4 - 6.8 11/09 H Specimen Type: BLOOD No comment entered. Ordering Provider: JAMILA BARRON Report Released Date/Time: Oct 31, 2024 06:34 PM Reporting Lab: [facility] [place] [address] [address] Performing Lab: [facility] [place] [facility] [address] [facility] [address] [facility] [place] [facility] CBC AND DIFF (AUTO) BASOPHILS/ 100 LEUKOCYTES IN BLOOD BY AUTOMATED COUNT 0.6 0.1 - 2.0 11/09 Specimen Type: BLOOD No comment entered. Ordering Provider: JAMILA BARRON Report Released Date/Time: Oct 31, 2024 06:34 PM Reporting Lab: [facility] [place] [facility] [address] [facility] [address] Performing Lab: [facility] [facility] [address] [facility] [address] [facility] [place] [facility] CBC AND DIFF (AUTO) NEUTROPHIL S [#/VOLUME] IN BLOOD BY AUTOMATED COUNT 5.15 10*3/uL 2.20 - 7.60 11/09 Specimen Type: BLOOD No comment entered. Ordering Provider: JAMILA BARRON Report Released Date/Time: Oct 31, 2024 06:34 PM Reporting Lab: [facility] [place] [facility] [address] [facility] [address] Performing Lab: [facility] [facility] [address] [facility] [address] [facility] [place] [facility] CBC AND DIFF (AUTO) LYMPHOCYTE S [#/VOLUME] IN BLOOD BY AUTOMATED COUNT 2.25 10*3/uL 1.00 - 3.20 11/09 Specimen Type: BLOOD No comment entered. Ordering Provider: JAMILA BARRON Report Released Date/Time: Oct 31, 2024 06:34 PM Reporting Lab: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 Out[facility] Encounter [id number] 10/05 [facility] Out[facility] Encounter [id number] 10/07 [facility] Out[facility] Encounter [id number] 10/11 [facility] Encounter [id number] [facility] Out[facility] Encounter [id number] 10/15 [facility] Out[facility] Encounter [id number] 10/21 [facility] Out[facility] Encounter [id number] 10/30 [facility]counter [id number] 10/30 [facility] Out[facility] Encounter [id number] 11/02 [facility] Out[facility] Encounter [id number] 11/03 [facility] Outpatient Encounter [id number] 11/05 [facility] Out[facility]counter [id number] 11/11 [facility] OFFICE O/P EST LOW 20 MIN [id number] Diagnos is: ICD-10- CM M25.572 Pain in left ankle and joints of left foot RICO BARRON RD 11/11 [facility] En[facility] [id number] 11/19 [facility] Out[facility]counter [id number] 11/20 [facility] Out[facility] Encounter [id number] 11/26 [facility] Social History Combined list of available smoking, tobacco, and other social history from Department of Defense and Veterans Affairs facilities. Social History Type Response Date Comment Sourc e Tobacco smoking status NHIS VA-TOBACCO NEVER USED OTHER TYPE 11/11/2024 [facility] History of tobacco use VA-TOBACCO USE FORMER CIGARETTES 11/11/2024 [facility] History of tobacco use VA-TOBACCO FORMER USER 10/16/2023 [facility] History [facility] tobacco use VA-TOBACCO FORMER USER 07/04/2022 [facility] History of tobacco use NSG NO TOBACCO USE PAST 30 DAYS 03/27/2022 [facility] History of tobacco use NSG NO TOBACCO USE PAST 30 DAYS 03/05/2022 [facility] History of tobacco use NSG NO TOBACCO USE PAST 30 DAYS 03/02/2022 [facility] History of tobacco use VA-TOBACCO FORMER USER 06/28/2021 [facility] History of tobacco use [place]-TOBACCO FORMER USER 05/26/2020 [facility] History of tobacco use TN-TOBACCO NEVER USED 05/23/2018 [facility] Plan of Care List of future care activities from [facility] facilities. Additional future care activities may be listed in the Assessment and Plan section. Date/Time Care Activity Care Activity Detail Facili ty 01/13/2025 AMBULATORY - MEDICINE AMBULATORY - MEDICI [facility] Advance Directives List of completed, amended, or rescinded Advance Directives on record at [facility] facilities. An actual copy of the Directive is not included. Date Advance Directive Provider Source 02/19/2022 ADVANCE DIRECTIVE JOCE CASTORENA [facility] 11/16/2020 ADVANCE DIRECTIVE BYRON BARRON [facility]
--- OUTSIDE RECORDS SUMMARY | 2024-11-30 11:41 | XMS_ITS ---
Author Organization [facility] Address [address] [place] [address] Care Team Providers Care Residential Solar Consultant Name Role Phone Josue Simmons MD Primary Care Provider Unavailab Lyn Damico [phone] REASON FOR VISIT [employer] [facility] Entered Encounters Encounter Location Date Provider Diagnosis [facility] [address] [place] [address] 03/12/2024 Lyn Lund Plan Of Treatment No Information Progress Notes * Reed MALLORY HDOB:1940 (83 yo M)Acc No.[id number]:03/12/2024 Patient:?Reed Mallory :1940???Age:83 Y???Sex:Male Address:[address] [place] [address] * true * Date:? Generated for Printi ng/Faxing/eTransmitting on:?11/30/2024 11:40 AM EDT
== END 2024-11-30 11:30 | disposition home or self-care (01) ==
LOC: HO.HOS 10:58
PROVIDERS: PCP Internal Medicine
DX: T84.7XXA Infection and inflammatory reaction due to other internal orthopedic prosthetic devices, implants and grafts, initial encounter (principal)
CPT/HCPCS: 99024

== ENCOUNTER 2025-01-01 11:05 | Outpatient (AMB) | payer OTHER, SELFPAY ==
--- NOTE | 2025-01-01 11:08 | MHC.OFFVIS ---
Intake Visit Reasons: OV: LT ankle I&D/SHRUTI 09/22/24 NE-wound check Intake Note: Reed is a 83 year old male who presents today for a follow up s/p removal of hardware and I&D of left ankle DOS: 09/22/24 w/ Dr Jonnathan Chirinos. Patient reports when he ambulates he has some pain in the left ankle. He expresses standing up on the foot does not bother him as much. He expresses his hips have been bothering him and believes it is due to the use of the scooter he was using. Allergies niacin Allergy (Severe, Verified 01/01/25 11:16) Upset Stomach procaine (From Novocain) Allergy (Severe, Verified 01/01/25 11:16) I GET MEAN simvastatin Adverse Reaction (Severe, Verified 01/01/25 11:16) myopathy HPI HPI OV: LT ankle I&D/SHRUTI 09/22/24 NE-wound check: Details: Reed is a 83 year old male who presents today for a follow up s/p removal of hardware and I&D of left ankle DOS: 09/22/24 w/ Dr Jonnathan Chirinos. Patient reports when he ambulates he has some pain in the left ankle. Patient has been ambulatory with a cane since previous visit, has no longer been using the knee scooter. Patient also reports he has discontinued use of the walking boot and is using a lace-up ankle brace. He expresses standing up on the foot does not bother him as much. He expresses his hips have been bothering him and believes it is due to the use of the scooter he was using. [facility] Medical History Ankle fracture, lateral malleolus, closed Hyperlipidemia HTN (hypertension) CAD (coronary artery disease) Murmur, cardiac Chest pain COPD (chronic obstructive pulmonary disease) Asbestosis Surgical History S/P TAVR (transcatheter aortic valve replacement) Stented coronary artery Hx of cardiac catheterization Family History Father CAD (coronary artery disease) Mother No problems noted. Social History Household Members: None Housing: House Are you a primary administrator health care facility to a significant other at home: No Do you presently have visiting nurse or other home services: Yes Comment: pt refusing bed alarm; ongoing Patient Tobacco Use Status: Former Tobacco user Tobacco use type: Cigarette and Cigar Years Smoked: 14 years old e-Cigarette/Vaping Use: Former Use Second Hand Smoke Exposure: No service: No Review of Systems Const All systems reviewed & are unremarkable except as noted in HPI and below Physical Exam Vital Signs: Last Vital Signs Temp 97.8 F 09/24/24 03:15 Pulse 69 09/24/24 03:15 Resp 18 09/24/24 03:15 BP 167/77 H 09/24/24 03:15 Pulse Ox 93 09/24/24 03:15 O2 Del Method Room Air 09/24/24 03:15 O2 Flow Rate 2 09/23/24 07:35 BMI result Body Mass Index 28.2 Extrem Other: Incision site on left ankle clean, dry, intact There is a scab at the most proximal aspect Wound from previous visits appear to be well healed in the most proximal aspect of the incision coverage throughout the entire incision site. This digit appears to have filled in significantly since previous visit last week Minimal edema, no erythema or ecchymosis noted Incision site a medial ankle well closed Patient no tenderness of the left ankle Patient is able to minimally plantar flex and dorsiflex the left ankle, however range of motion has improved since previous visit Distal sensation intact Capillary refill brisk Assessment & Plan Assessment & Plan (1) 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: Comment: He is doing well on Daptomycin Code(s): T84.7XXA - Infection and inflammatory reaction due to other internal orthopedic prosthetic devices, implants and grafts, initial encounter Category: Medical Plan 1.Status post I and D and removal of hardware of left ankle DOS09/22/2024 patient appears to be recovering well postoperatively Patient is educated about the typical recovery course Patient is ordered outpatient PT for range of motion, gait training, strengthening of the left ankle Patient is encouraged to begin only using the lace-up ankle brace, can gradually begin being more ambulatory as tolerated Follow-up in 6-8 weeks sooner with any acute concerns Coding Level of Care Code Est Pt Level 3 (04353) Diagnoses 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
== END 2025-01-01 11:45 | disposition home or self-care (01) ==
LOC: HO.HOS 11:05
PROVIDERS: PCP Internal Medicine
DX: T84.7XXA Infection and inflammatory reaction due to other internal orthopedic prosthetic devices, implants and grafts, initial encounter (principal)
CPT/HCPCS: 99213

== ENCOUNTER → 2025-01-01 11:05 | Outpatient (BNVA) | payer OTHER, SELFPAY | PROVIDERS: PCP Internal Medicine | DX: T84.7XXA Infection and inflammatory reaction due to other internal orthopedic prosthetic devices, implants and grafts, initial encounter (principal) | CPT/HCPCS: 99212 ==

== ENCOUNTER 2025-01-11 08:00 | Outpatient (RCR) | payer MEDICARE, OTHER, SELFPAY ==
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
--- NOTE | 2025-02-09 09:21 | MHC.PT.DC ---
[facility] [place] [facility] [place] [facility] [place] [facility] [address] Anton Morales [address] [phone] F: [phone] F: [phone] F: [phone] F: [phone] Physical Therapy Discharge Report Diagnosis: This is an 84 yo male presenting to skilled PT with a script for displaced fx of lateral malleolus of L fibula, s/p ORIF L ankle 01/21/24 and then SHRUTI 09/22/24. Date of Surgery: Date of Evaluation: 12/15/24 Date of Discharge: 02/09/25 Treatments to Date: 8 Cancellations to Date: 0 No Shows to Date: 0 Discharge Status: Independent with HEP Patient Elected to Stop Recommend MD Follow-up Discharge Summary: 01/11: Pt has come to 8 sessions of PT with little progress made towards his goals. He was educated multiple times on safety with ambulation, footwear and HEP with little to no carryover. At this time due to lack of progress being made towards goals he is to be DC'd to his HEP. He does understand that he needs to continue to work his ankle. DC to HEP. Electronically signed by: Rosita Lowery PT Please sign and return to therapist. Thank you for your referral.
== END 2025-02-09 09:21 | disposition home or self-care (01) ==
LOC: HO.PTCHIC 08:00
PROVIDERS: PCP Internal Medicine
DX: T84.7XXA Infection and inflammatory reaction due to other internal orthopedic prosthetic devices, implants and grafts, initial encounter (principal)
CPT/HCPCS: 97110; 97163

== ENCOUNTER 2025-02-15 13:09 | Outpatient (REF) | payer OTHER, SELFPAY ==
--- NOTE | ~2025-02-15 | XR_ITS ---
EXAMINATION: XR BILATERAL HIPS WITH AP PELVIS CLINICAL INFORMATION: M25.551 - Pain in right hip COMPARISON: None available. TECHNIQUE: AP view of the pelvis and single views of each hip were obtained. FINDINGS: SI joints demonstrate minimal subchondral sclerosis narrowing. There is stippled soft tissue calcification involving the bilateral hip joint capsules, hip labrum, articular cartilage, and disc of the pubic symphysis joint consistent with pyrophosphate deposition. There is mild axial joint space narrowing in the hips. Minimal marginal osteophyte formation is noted in the hips. No other abnormalities are seen. XR/XR hips JAZMIN min 3V IMPRESSION: CPPD disease with mild superomedial hip joint space narrowing. IMPRESSION: Normal pelvis and hips. Electronically signed by: Simeon Bhatia MD 02/15/2025 02:12 PM EDT
--- OUTSIDE RECORDS SUMMARY | 2025-02-15 13:29 | XMS_ITS | Encounter Summary ---
Author Organization [facility] Address [id number] [place] [id number] Care Team Providers Care Cotton Grader Name Role Phone Adam Noonan MD Primary Care Provider [phone] Encounter Details Date Type Department Care Team (Late st Contact Info) Description 01/21/2025 Lab Requisition [facility] - Main Lab [address] [facility] [place] [address] Demetrius Sutton MD [address] [place], [place] [id number] Benign essential microscopic hematuria Social History Tobacco Use Types Packs/Day Years Used Date Smoking Tobacco: Former Cigarettes Smokeless Tobacco: Former Alcohol Use Standard Drinks/Week Comments Yes 0 (1 standard drink = 0.6 oz pur e alcohol) Sex and Gender Information Value Date Recorded Sex Assigned at Not on file Legal Sex Male 3:47 PM EST Gender Identity Not on file Sexual Orientation Not on file documented as of this encounter Plan of Treatment Not on file documented as of this encounter Procedures Procedure Name Priority Date/Time Associated Diagnosis Comments AP OUTSIDE CONSULT Routine 01/14/2025 12 :00 AM EDT Benign essential microscopic hematuria documented in this encounter Results * Anatomic pathology outside consult (01/14/2025 12:00 AM EDT) Final Diagnosis A. Urine, Voided, [id number]: Negative for high grade urothelial carcinoma. Results of UroVysion fluorescence in situ hybridization (FISH) testing: CEP3: Normal CEP7: Normal CEP17: Normal LSI 9p21: Normal Interpretation: Normal profile Controls stained appropriately. Note: The results are intended as a screening device and should be interpreted in association with other clinical and pathological findings. 02/05/2025 4:42 PM EDT [facility] Clinical Information Benign essential microscopic hematuria R31.1 Urine Cytology/FISH (now) 02/05/2025 4:42 PM EDT [facility] Gross Description A. Urine, Voided, [id number]: Received one ThinPrep slide for cytology and one ThinPrep slide for UroVysion FISH 02/05/2025 4:42 PM EDT [facility] Disclaimer Unless otherwise specified, all tissue is 10% NB formalin fixed and paraffin embedded. Technical pathology services provided by [facility] at [address] [facility] [address], [place] [address] (CLIA #[id number]/Galina Valerio MD, Interface Designer) 02/05/2025 4:42 PM EDT [facility] Tissue Urine specimen from urethra / Unknown 01/14/2025 01/21/2025 1:51 PM EDT us Demetrius Sutton MD LAB PATHOLOGY ORDERABLES Final R esult [facility] [address] [place] [address], documented in this encounter Visit Diagnoses Diagnosis Benign essential microscopic hematuria documented in this encounter Care Teams Cotton Grader Relationship Specialty Start Date End Date Adam Noonan MD [address] [place] [phone] PCP - General Internal Medicine 11/19/17 documented as of this encounter
--- OUTSIDE RECORDS SUMMARY | 2025-02-15 13:29 | XMS_ITS | Patient Health Record ---
Author Organization [facility] Address [address] [facility] [place] [address] Care Team Providers Care Air Route Controller Name Role Phone Josue Simmons MD Primary Care Provider Lyn Aquino Unavailable [phone] Allergies Allergen (clinical drug ingredient) Drug/Non Drug [...] Orally Once a day; Duration: 30 Unknown Metoprolol Succinate Active Cephalexin Active [...] primary osteoarthritis of the ankle and/or foot ([id number]) Primary osteoarthrit is, right ankle and foot (M19.071) Active confirmed Encounters Encounter Location Date Provider Diagnosis [facility] [place] [address] [facility] [place] [address] 03/09/2024 Lyn Lund [facility] [place] [address] [facility] [place] [address] 03/12/2024 Lyn Lund [facility] [place] [address] [facility] [place] [address] 04/02/2024 Lyn Lund Plan Of Treatment Pending Test Test Name Order Date X ray : Foot, right 3V 01/20/2015 X ray : Ankle, right 3V 03/04/2017 Insurance Providers Payer Name Payer Address Payer Phone Subscriber Number Group Number Insured Name Patient Relationship to Insured Coverage Start Date Coverage End Date Medicare National [employer] [address] [place] [address] [id number] Reed Mallory Self - patient is the insured [employer] [address] [place] [address] Reed Mallory Self - patient is the [...]
== END 2025-02-15 13:10 | disposition home or self-care (01) ==
LOC: HO.HOSX 13:09
PROVIDERS: PCP Internal Medicine
DX: M25.551 Pain in right hip (principal); M25.552 Pain in left hip; M11.251 Other chondrocalcinosis, right hip; M11.252 Other chondrocalcinosis, left hip
CPT/HCPCS: 73522; 99212

== ENCOUNTER → 2025-02-15 13:16 | Outpatient (BNV) | payer OTHER, SELFPAY | PROVIDERS: PCP Internal Medicine; Visit Provider Radiology Diagnostic Radiology | DX: M25.551 Pain in right hip (principal) | CPT/HCPCS: 73522 ==

== ENCOUNTER 2025-02-15 14:14 | Outpatient (AMB) | payer OTHER, SELFPAY ==
[2025-02-15 14:18] VITALS: BMI 28.2
--- NOTE | 2025-02-15 14:18 | A.OFFVIS_ITS ---
Vital Signs 02/15/25 14:18 Height 5 ft 6 in Weight 175 lb BMI 28.2 Intake Visit Reasons: NewProb- Right hip pain---- NEEDS XR Intake Note: Reed is an 84 year old male who presents today for a new problem visit with new complains of right hip pain. Patient states he hurt it years ago but was never treated from it, however about 6-8 months ago his right hip started hurting, radiating to his groin. He reports he used to struggle getting out of bed but figured out a way to do it without much pain. Patient thinks he has been stressing the right hip since his left ankle injury a year ago. He has been taking Tylenol Arthritis with minimal relief. Denies previous surgeries to the right hip. Patient ambulating with a cane due to his ankle. Allergies niacin Allergy (Severe, Verified 02/15/25 14:23) Upset Stomach procaine (From Novocain) Allergy (Severe, Verified 02/15/25 14:23) I GET MEAN simvastatin Adverse Reaction (Severe, Verified 02/15/25 14:23) myopathy HPI HPI NewProb- Right hip pain---- NEEDS XR: Details: Reed is an 84 year old male who presents today for a new problem visit with new complains of right hip pain. Patient states he hurt it years ago but was never treated from it, however about 6-8 months ago his right hip started hurting, radiating to his groin. He reports he used to struggle getting out of bed but figured out a way to do it without much pain. Patient thinks he has been stressing the right hip since his left ankle injury a year ago. He has been taking Tylenol Arthritis with minimal relief. Denies previous surgeries to the right hip. Patient ambulating with a cane due to his ankle. No other acute complaints or concerns at this time. [facility] Medical History Ankle fracture, lateral malleolus, closed Hyperlipidemia HTN (hypertension) CAD (coronary artery disease) Murmur, cardiac Chest pain COPD (chronic obstructive pulmonary disease) Asbestosis Surgical History S/P TAVR (transcatheter aortic valve replacement) Stented coronary artery Hx of cardiac catheterization Family History Father CAD (coronary artery disease) Mother No problems noted. Social History Household Members: None Housing: House Are you a primary patient care representative to a significant other at home: No Do you presently have visiting nurse or other home services: Yes Comment: pt refusing bed alarm; ongoing Patient Tobacco Use Status: Former Tobacco user Tobacco use type: Cigarette and Cigar Years Smoked: 14 years old e-Cigarette/Vaping Use: Former Use Second Hand Smoke Exposure: No service: No Physical Exam Vital Signs: BMI result Body Mass Index 28.2 Extrem Other: Patient's bilateral hips normal to inspection No erythema, ecchymosis, edema noted No lacerations, abrasions, open areas No evidence of infection Patient reports no tenderness to palpation of the bilateral hips Patient is able to forward flex the bilateral hips to approximately 100 degrees in his able to extend to approximately 30-40 degrees past neutral bilaterally No pain with passive internal or external rotation of bilateral hips Distal sensation intact Capillary refill brisk Results Reviewed Results Reviewed: X-rays obtained in the office today and independently reviewed by me, Demetrius Contreras PA-C, demonstrate significant calcifications around the bilateral hip joints consistent with CPPD arthropathy. Assessment & Plan Assessment & Plan (1) Calcium pyrophosphate deposition disease (CPPD): Code(s): M11.20 - Other chondrocalcinosis, unspecified site Category: Medical (2) Bilateral hip pain: Code(s): M25.551 - Pain in right hip; M25.552 - Pain in left hip Category: Medical Plan 1. CPPD arthropathy of bilateral hips Patient is educated about this condition Patient is educated about the treatment options available, including physical therapy, injections, or a consultation for potential surgical intervention However, at this time, the patient states he is uninterested in any of these treatment options, and this appointment was more to ?get an idea as to what is going on? Patient is educated he should continue with range of motion of the bilateral hips in order to prevent stiffness Patient understands this in his amenable to this plan Patient may follow-up as needed for his bilateral hips if he would like to explore any treatment options, sooner with any acute concerns Orders: Orders XR hips JAZMIN min 3V 02/15/25 M25.551 - Pain in right hip, M25.552 - Pain in left hip Coding Level of Care Code Est Pt Level 3 (56513) Diagnoses Calcium pyrophosphate deposition disease (CPPD) M11.20 Bilateral hip pain M25.551; M25.552
== END 2025-02-15 14:43 | disposition home or self-care (01) ==
PROVIDERS: PCP Internal Medicine
DX: M11.20 Other chondrocalcinosis, unspecified site (principal); M25.551 Pain in right hip; M25.552 Pain in left hip
CPT/HCPCS: 99213

== ENCOUNTER 2025-02-23 10:59 | Outpatient (AMB) | payer OTHER, SELFPAY ==
[2025-02-23 11:06] VITALS: BMI 28.2
--- NOTE | 2025-02-23 11:06 | A.OFFVIS_ITS ---
Vital Signs 02/23/25 11:06 Height 5 ft 6 in Weight 175 lb BMI 28.2 Intake Visit Reasons: OV: LT ankle I&D/SHRUTI 09/22/24 NE-wound check Intake Note: Reed is a 84 year old male who presents today for follow up status post removal of hardware and I&D of left ankle DOS: 09/22/[address] Chirinos. At his last visit he was referred to physical therapy for range of motion, gait training, and strengthening of the left ankle. He was encouraged to begin using the lace- up ankle brace and gradually become more ambulatory, as tolerated. Patient reports today he only went to PT for 3 weeks. He continues to have pain but is not taking pain medications at this time. He is no longer using the boot, only the lace-up ankle brace, daily. Denies new symptoms. Allergies niacin Allergy (Severe, Verified 02/23/25 11:07) Upset Stomach procaine (From Novocain) Allergy (Severe, Verified 02/23/25 11:07) I GET MEAN simvastatin Adverse Reaction (Severe, Verified 02/23/25 11:07) myopathy HPI HPI OV: LT ankle I&D/SHRUTI 09/22/24 NE-wound check: Details: Reed is a 84 year old male who presents today for follow up status post removal of hardware and I&D of left ankle DOS: 09/22/[address] Chirinos. At his last visit he was referred to physical therapy for range of motion, gait training, and strengthening of the left ankle. He was encouraged to begin using the lace- up ankle brace and gradually become more ambulatory, as tolerated. Patient reports today he only went to PT for 3 weeks. He continues to have pain but is not taking pain medications at this time. He is no longer using the boot, only the lace-up ankle brace, daily. Denies new symptoms. [facility] Medical History Ankle fracture, lateral malleolus, closed Hyperlipidemia HTN (hypertension) CAD (coronary artery disease) Murmur, cardiac Chest pain COPD (chronic obstructive pulmonary disease) Asbestosis Surgical History S/P TAVR (transcatheter aortic valve replacement) Stented coronary artery Hx of cardiac catheterization Family History Father CAD (coronary artery disease) Mother No problems noted. Social History Household Members: None Housing: House Are you a primary day care center director to a significant other at home: No Do you presently have visiting nurse or other home services: Yes Comment: pt refusing bed alarm; ongoing Patient Tobacco Use Status: Former Tobacco user Tobacco use type: Cigarette and Cigar Years Smoked: 14 years old e-Cigarette/Vaping Use: Former Use Second Hand Smoke Exposure: No service: No Review of Systems Const All systems reviewed & are unremarkable except as noted in HPI and below Physical Exam Vital Signs: BMI result Body Mass Index 28.2 Last Vital Signs Temp 97.8 F 09/24/24 03:15 Pulse 69 09/24/24 03:15 Resp 18 09/24/24 03:15 BP 167/77 H 09/24/24 03:15 Pulse Ox 93 09/24/24 03:15 O2 Del Method Room Air 09/24/24 03:15 O2 Flow Rate 2 09/23/24 07:35 BMI result Body Mass Index 28.2 Extrem Other: Incision site on left ankle clean, dry, intact Incisions are all well healed at this time No edema, no erythema or ecchymosis noted Incision site a medial ankle well closed Patient no tenderness of the left ankle Patient is able to plantar flex and dorsiflex the left ankle, range of motion has improved since previous visit, however range of motion is still not full Distal sensation intact Capillary refill brisk Assessment & Plan Assessment & Plan (1) 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: Comment: He is doing well on Daptomycin Code(s): T84.7XXA - Infection and inflammatory reaction due to other internal orthopedic prosthetic devices, implants and grafts, initial encounter Category: Medical Plan 1.Status post I and D and removal of hardware of left ankle DOS09/22/2024 patient appears to be recovering well postoperatively Patient is educated about the typical recovery course Patient is offered another referral to physical therapy for range of motion, gait training, strengthening of the left ankle, but declines, stating that he was frustrated by physical therapy during his last round of it and does not want any further physical therapy, stating he feels he can get function back on his own Patient is educated on signs and symptoms of recurrent infection, and is educated he should call us or go to the emergency department if he begins to experience any of the symptoms Patient is encouraged to begin weaning out of the lace-up ankle brace, can gradu ally begin being more ambulatory as tolerated Follow-up in 3 months sooner with any acute concerns Coding Level of Care Code Est Pt Level 3 (40688) Diagnoses 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
--- OUTSIDE RECORDS SUMMARY | 2025-02-23 12:08 | XMS_ITS | Encounter Summary ---
Author Organization [facility] Address [address] [place] [address] Care Team Providers Care Injection Maintenance Technician Name Role Phone Adam Noonan MD Primary Care Provider [phone] Encounter Details Date Type Department Care Team (Late st Contact Info) Description 01/21/2025 Lab Requisition [facility] - Main Lab [address] [facility] [place] [address] Demetrius Sutton MD [address] [place], [place] [phone] Benign essential microscopic hematuria Social History Tobacco [...] AM EDT) Final Diagnosis A. Urine, Voided, [id number]: Negative for high grade urothelial carcinoma. Results of UroVysion fluorescence in situ hybridization (FISH) testing: CEP3: Normal CEP7: Normal CEP17: Normal LSI 9p21: Normal Interpretation: Normal profile Controls stained appropriately. Note: The results are intended as a screening device and should be interpreted in association with other clinical and pathological findings. 02/05/2025 4:42 PM EDT [facility] Clinical Information Benign essential microscopic hematuria R31.1 Urine Cytology/FISH (now) 02/05/2025 4:42 PM EDT [facility] Gross Description A. Urine, Voided, [id number]: Received one ThinPrep slide for cytology and one ThinPrep slide for UroVysion FISH 02/05/2025 4:42 PM EDT [facility] Disclaimer Unless otherwise specified, all tissue is 10% NB formalin fixed and paraffin embedded. Technical pathology services provided by [facility] at [address] [facility] [address], [place] [address] (CLIA #[id number]/Galina Valerio MD, Upholstery Sewer) 02/05/2025 4:42 PM EDT [facility] Tissue Urine specimen from urethra / Unknown 01/14/2025 01/21/2025 1:51 PM EDT us Demetrius Sutton MD LAB PATHOLOGY ORDERABLES Final R esult [facility] [address] [place] [address], documented in this encounter Visit Diagnoses Diagnosis Benign essential microscopic hematuria documented in this encounter Care Teams Injection Maintenance Technician Relationship Specialty Start Date End Date Adam Noonan MD [address] [place] [phone] PCP - General Internal Medicine 11/19/17 documented as of this encounter
--- OUTSIDE RECORDS SUMMARY | 2025-02-23 12:08 | XMS_ITS | Patient Health Record ---
Author Organization [facility] Address [address] [place] [address] Care Team Providers Care Hematologist Oncologist Name Role Phone Josue Simmons MD Primary Care Provider Lyn Aquino Unavailable [phone] Allergies Allergen (clinical drug ingredient) Drug/Non Drug [...] Problem Status W/U Status Risk Notes Problem Primary osteoarthritis , right ankle and foot (M19.071) Active confirmed Encounters Encounter Location Date Provider Diagnosis [facility] [address] [place] [address] 03/09/2024 Lynellen Lund [facility] [place] [address] [place] [address] 03/12/2024 Lynbhargav Lund [facility] [place] [address] [place] [address] 04/02/2024 Lyn Lund Plan Of Treatment Pending Test Test Name Order Date X ray : Foot, right 3V 01/20/2015 X ray : Ankle, right 3V 03/04/2017 Insurance Providers Payer Name Payer Address Payer Phone Subscriber Number Group Number Insured Name Patient Relationship to Insured Coverage Start Date Coverage End Date Medicare National [employer] [address] [place] [address] [id number] Reed Mallory Self - patient is the insured [employer] [address] [place] [address] Reed Mallory Self - patient is the insured Medical (General) History Medical History History ICD Code Arthritis asthma Back,Hip,and Knee pain Heart attack High blood pressure Macular degeneration Stomach ulcer Thyroid disorder Measles Chicken pox Broken bones CAD (Cholesterol) Cataracts Headaches/Migraines Heart disease sinusitis Mumps Replacement Heart Valves Surgical History Surgery Date(Month/Year) appendectomy 194 thyroid 1960 kidney stones 1959 left ankle 01/14/24 aortic valve replacement 2021
== END 2025-02-23 11:35 | disposition home or self-care (01) ==
LOC: HO.HOS 11:00
PROVIDERS: PCP Internal Medicine
DX: T84.7XXA Infection and inflammatory reaction due to other internal orthopedic prosthetic devices, implants and grafts, initial encounter (principal)
CPT/HCPCS: 99213

== ENCOUNTER → 2025-02-23 10:59 | Outpatient (BNVA) | payer OTHER, SELFPAY | PROVIDERS: PCP Internal Medicine | DX: T84.7XXA Infection and inflammatory reaction due to other internal orthopedic prosthetic devices, implants and grafts, initial encounter (principal) | CPT/HCPCS: 99212 ==

== ENCOUNTER 2025-04-12 09:20 | Outpatient (REF) | payer MEDICARE, OTHER, SELFPAY ==
--- OUTSIDE RECORDS SUMMARY | 2024-04-23 05:30 | XMS_ITS ---
Author Organization [facility] Address [address] [facility] [place] [address] Care Team Providers Care Banking Services Officer Name Role Phone Iris COHEN, Josue Primary Care Provider UnavailStella Powers Unavailable [phone] Black, Lyn Unavailable [phone] Allergies Allergen (clinical drug ingredient) Drug/Non Drug [...] 04/23/2024 Encounters Encounter Location Date Provider Diagnosis [facility] [address] [address] 04/23/2024 Lyn Lund Plan Of Treatment Next Appt Details Provider Name:Stella hunt, 05/12/2025 09:30:00 AM, [address] [place], [address], Progress Notes * Reed MALLORY HDOB:1940 (84 yo M)Acc No.[id number]:04/23/2024 Progress Notes Patient: Reed OCONNELL Provider: Samia Lund DPM :1940 A ge:83 Y S ex:Male Date:04/23/2024 Address:[address] [place] [address] [address] [facility] Pcp:Josue Simmons MD Subjective: * Chief Complaints: [...] enies. C ardiovascular: Pacemaker d enies. M OYSTER PREPARER d enies. W PW d enies. C [...] Samia Lund DPM Date: Generated for Yokasta palacios/Ilda/Cocoitting on: 0 04/12/2025 10:16 AM EDT
--- NOTE | ~2025-04-12 | XR_ITS ---
CLINICAL HISTORY: PA CHEST X-RAY FOR B READING B-READ OF THE CHEST IMPRESSION: 1. 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 This can be associated with asbestosis. 2. Completed NIOSH chest radiograph classification form has been uploaded to the patient's image folder in [employer] for review. This document has been electronically signed by: Herve Dupree MD on 04/12/2025 18:06:35
--- OUTSIDE RECORDS SUMMARY | 2025-04-12 10:16 | XMS_ITS | Clinical Summary ---
Author Organization [address] [facility] Address [address] [place] [address] Phone Care Team Providers Care Manager Shell Name Role Phone Adam Noonan MD Primary Care Provider [phone] Encounters Date Type Department Care Team Description 01/21/2025 Lab Requisition [facility] - Main Lab [address] [facility] [place] [address] Demetrius Sutton MD Benign essential microscopic hematuria from Last 3 Months Surgical History Surgery Date Site/Laterality Comments APPENDECTOMY PROCEDURE: MO APPENDECTOMY OTHER SURGICAL HISTORY PROCEDURE: HISTORICAL SUBTOTAL THYROIDECTOMY Medical History Medical History Date Comments Hypertension 12/08/2017 DX:Hypertension Macular degeneration 12/08/2017 DX:Macular degeneration Hyperlipidemia 12/08/2017 DX:Hyperlipidemi a CAD (coronary artery disease) 12/08/2017 DX :CAD (coronary artery disease); COMMENT: S/p MD Kidney stone 12/08/2017 DX:Kidney stone Family History Medical History Relation Name Comments Heart attack Brother Coronary artery disease Father MD Emphysema Sister Relation Name Status Comments Brother [...] on file Sexual Orientation Not on file Obstetrics History Plan of Treatment Health Maintenance Due Date Last Done Comments DTaP,Tdap,and Td Vaccines (1 - Tdap) 1959 Pneumococcal Vaccine: 50+ Ye ars (1 of 2 - PCV) 1957 Zoster Vaccines (1 of 2) 1988 RSV Immunization Adult Patie nts (1 - 1-dose 75+ series) 2013 Depression Screening 07/15/2024 Cholesterol Screening (Lipid Panel) 01/22/2025 Falls Risk Assessment 01/22/2025 Hypertension/CHF/CAD Annual BMP Blood Test 01/22/2025 Medicare Annual Wellness Visit 01/22/2025 Social Influencers of Health Screening 01/22/2025 COVID-19 Vaccine ( - 2023-2 5 season) 2025 Influenza Vaccine (#1) 2025 HIB Vaccines Aged Out No longer eligi ble based on patient's age to complete this topic HPV Vaccines Aged Out No longer eligi ble based on patient's age to complete this topic Hepatitis A Vaccines Aged Out No long er eligible based on patient's age to complete this topic Hepatitis B Vaccines Aged Out No long er eligible based on patient's age to complete this topic IPV Vaccines Aged Out No longer eligi ble based on patient's age to complete this topic MMR Vaccines Aged Out No longer eligi ble based on patient's age to complete this topic Meningococcal ACWY Vaccine Aged Out N o longer eligible based on patient's age to complete this topic Meningococcal B Vaccine Aged Out No l onger eligible based on patient's age to complete this topic RSV Immunization Patients Un poornima 20 months Aged Out No longer eligible b ased on patient's age to complete this topic Varicella Vaccines Aged Out No longer eligible based on patient's age to complete this topic Procedures Procedure Name Priority Date/Time Associated Diagnosis Comments AP OUTSIDE CONSULT Routine 01/14/2025 12 :00 AM EDT Benign essential microscopic hematuria from Last 3 Months Results * Anatomic pathology outside consult (01/14/2025 12:00 AM EDT) Final Diagnosis A. Urine, Voided, [id number]: Negative for high grade urothelial carcinoma. Results of UroVysion fluorescence in situ hybridization (FISH) testing: CEP3: Normal CEP7: Normal CEP17: Normal LSI 9p21: Normal Interpretation: Normal profile Controls stained appropriately. Note: The results are intended as a screening device and should be interpreted in association with other clinical and pathological findings. 02/05/2025 4:42 PM EDT [facility] [place] [facility] Clinical Information Benign essential microscopic hematuria R31.1 Urine Cytology/FISH (now) 02/05/2025 4:42 PM EDT [facility] Gross Description A. Urine, Voided, [id number]: Received one ThinPrep slide for cytology and one ThinPrep slide for UroVysion FISH 02/05/2025 4:42 PM EDT [facility] Disclaimer Unless otherwise specified, all tissue is 10% NB formalin fixed and paraffin embedded. Technical pathology services provided by [facility] at [address], [place] [address] (CLIA #[id number]/Galina Valerio MD, Cigarette Lighter Repairer) 02/05/2025 4:42 PM EDT [facility] Tissue Urine specimen from urethra / Unknown 01/14/2025 01/21/2025 1:51 PM EDT us Demetrius Sutton MD LAB PATHOLOGY ORDERABLES Final R esult [facility]) [facility] [address] [place] [address], from Last 3 Months Insurance MEDICARE [employer] Care Teams Manager Shell Relationship Specialty Start Date End Date Adam Noonan MD [address] [place] [phone] PCP - General Internal Medicine 11/19/17
--- OUTSIDE RECORDS SUMMARY | 2025-04-12 10:16 | XMS_ITS | Patient Health Record ---
Author Organization [facility] Address [address] [place] [address] Care Team Providers Care Online Content Developer Name Role Phone Josue Simmons MD Primary Care Provider Stella Tarango Unavailable [phone] Black, Lyn Unavailable [phone] Allergies Allergen (clinical drug ingredient) Drug/Non Drug Allergy documented on EMR Reaction Allergy Type Onset Date Status ciprofloxacin Cipro Unknown Drug Allergy Act kellee Levaquin Unknown Drug Allergy Active Novocain Unknown Drug Allergy Active Reason For Referral [...] Date Details (start date - stop date) Never Smoker NA - NA Tobacco use other than smoking: Question Answer Notes Are you an other tobacco user? No Tobacco Control (Standard) Question Answer Notes Tobacco use: Nonsmoker Additional Findings: Tobacco non-user Current no nsmoker Problems Problem Type SNOMED Code ICD Code Onset Dates Problem Status W/U Status Risk Notes Problem Localized, primary osteoarthritis of the ankle and/or foot ([id number]) Primary osteoarthrit is, right ankle and foot (M19.071) Active confirmed Encounters Encounter Location Date Provider Diagnosis [facility] [address] [place] [address] 03/30/2025 Lyn Kevon Plan Of Treatment Pending Test Test Name Order Date X ray : Foot, right 3V 01/20/2015 X ray : Ankle, right 3V 03/04/2017 Next Appt Details Provider Name:Stella hunt, 05/12/2025 09:30:00 AM, [address] [facility], [place], [address], Insurance Providers Payer Name Payer Address Payer Phone Subscriber Number Group Number Insured Name Patient Relationship to Insured Coverage Start Date Coverage End Date Medicare [facility] [employer] [address] [place] [address] [id number] Reed Mallory Self - patient is the insured [employer] [address] [place] [address] [phone] [id number] Reed Mallory Self - patient is the insured 4 Medical (General) History Medical History History ICD [...]
--- OUTSIDE RECORDS SUMMARY | 2025-04-12 10:16 | XMS_ITS | Encounter Summary ---
Author Organization [facility] Address [address] [place] [address] Care Team Providers Care Operator Weapon Locating Radar Name Role Phone Adam Noonan MD Primary Care Provider [phone] Encounter Details Date Type Department Care Team (Late st Contact Info) Description 01/21/[address] [facility] - Main Lab [address] [facility] [place] [address] Demetrius Sutton MD [address] [place], [place] [phone] Benign essential microscopic hematuria Social History Tobacco [...] AM EDT) Final Diagnosis A. Urine, Voided, [id number]: Negative for high grade urothelial carcinoma. Results of UroVysion fluorescence in situ hybridization (FISH) testing: CEP3: Normal CEP7: Normal CEP17: Normal LSI 9p21: Normal Interpretation: Normal profile Controls stained appropriately. Note: The results are intended as a screening device and should be interpreted in association with other clinical and pathological findings. 02/05/2025 4:42 PM EDT [facility] Clinical Information Benign essential microscopic hematuria R31.1 Urine Cytology/FISH (now) 02/05/2025 4:42 PM EDT [facility] Gross Description A. Urine, Voided, [id number]: Received one ThinPrep slide for cytology and one ThinPrep slide for UroVysion FISH 02/05/2025 4:42 PM EDT [facility] Disclaimer Unless otherwise specified, all tissue is 10% NB formalin fixed and paraffin embedded. Technical pathology services provided by [facility] at [address] [facility] [address], [place] [address] (CLIA #[id number]/Galina Valerio MD, Manager Target) 02/05/2025 4:42 PM EDT [facility] Tissue Urine specimen from urethra / Unknown 01/14/2025 01/21/2025 1:51 PM EDT us Demetrius Sutton MD LAB PATHOLOGY ORDERABLES Final R esult [facility] [address] [place] [address], documented in this encounter Visit Diagnoses Diagnosis Benign essential microscopic hematuria documented in this encounter Care Teams Operator Weapon Locating Radar Relationship Specialty Start Date End Date Adam Noonan MD [address] [place] [phone] PCP - General Internal Medicine 11/19/17 documented as of this encounter
== END 2025-04-12 09:21 | disposition home or self-care (01) ==
LOC: HO.XRAY 09:20
PROVIDERS: PCP Internal Medicine; Visit Provider Internal Medicine Pulmonary Disease
DX: R06.00 Dyspnea, unspecified (principal)
CPT/HCPCS: 71045

== ENCOUNTER 2025-05-17 13:02 | Outpatient (AMB) | payer OTHER, SELFPAY ==
--- NOTE | 2025-05-17 13:17 | MHC.OFFVIS ---
Vital Signs 05/17/25 13:18 Height 5 ft 6 in Weight 175 lb BMI 28.2 Intake Visit Reasons: O/V LT Ankle SHRUTI and I&D, DOS: 09/22 Intake Note: Reed is a 84 year old male who presents today for follow up status post Left Ankle Removal of Hardware and I&D, DOS: 09/22/[address] Chirinos. At his last visit, 02/23/25, a referral to Physical Therapy was offered but declined as he felt he could manage on his own. States he does as much as he can at home to work on his ROM, states he continues to have pain especially when pressure is applied. Allergies niacin Allergy (Severe, Verified 05/17/25 13:18) Upset Stomach procaine (From Novocain) Allergy (Severe, Verified 05/17/25 13:18) I GET MEAN simvastatin Adverse Reaction (Severe, Verified 05/17/25 13:18) myopathy HPI HPI O/V LT Ankle SHRUTI and I&D, DOS: 09/22: Details: Reed is a 84 year old male who presents today for follow up status post Left Ankle Removal of Hardware and I&D, DOS: 09/22/[address] Chirinos. At his last visit, 02/23/25, a referral to Physical Therapy was offered but declined as he felt he could manage on his own. States he does as much as he can at home to work on his ROM, states he continues to have pain especially when pressure is applied, but he feels that this is nothing like the pain he had when he had the infection and that this is likely due to the significant arthritis that he has in his left ankle. Patient states that he discontinued use of the lace-up ankle brace approximately 2 weeks ago. [facility] Medical History Ankle fracture, lateral malleolus, closed Hyperlipidemia HTN (hypertension) CAD (coronary artery disease) Murmur, cardiac Chest pain COPD (chronic obstructive pulmonary disease) Asbestosis Surgical History S/P TAVR (transcatheter aortic valve replacement) Stented coronary artery Hx of cardiac catheterization Family History Father CAD (coronary artery disease) Mother No problems noted. Social History Household Members: None Housing: House Are you a primary healthcare social worker to a significant other at home: No Do you presently have visiting nurse or other home services: Yes Comment: pt refusing bed alarm; ongoing Patient Tobacco Use Status: Former Tobacco user Tobacco use type: Cigarette and Cigar Years Smoked: 14 years old e-Cigarette/Vaping Use: Former Use Second Hand Smoke Exposure: No service: No Review of Systems Const All systems reviewed & are unremarkable except as noted in HPI and below Physical Exam Vital Signs: BMI result Body Mass Index 28.2 Last Vital Signs Temp 97.8 F 09/24/24 03:15 Pulse 69 09/24/24 03:15 Resp 18 09/24/24 03:15 BP 167/77 H 09/24/24 03:15 Pulse Ox 93 09/24/24 03:15 O2 Del Method Room Air 09/24/24 03:15 O2 Flow Rate 2 09/23/24 07:35 BMI result Body Mass Index 28.2 Extrem Other: Incision site on left ankle clean, dry, intact Incisions are all well healed at this time No edema, no erythema or ecchymosis noted Incision site a medial ankle well closed Patient no tenderness of the left ankle Patient is able to plantar flex and dorsiflex the left ankle, range of motion is approximately the same since last visit Distal sensation intact Capillary refill brisk Assessment & Plan Assessment & Plan (1) 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: Comment: He is doing well on Daptomycin Code(s): T84.7XXA - Infection and inflammatory reaction due to other internal orthopedic prosthetic devices, implants and grafts, initial encounter Category: Medical Plan 1.Status post I and D and removal of hardware of left ankle DOS09/22/2024 patient appears to be recovering well postoperatively Patient is educated about the typical recovery course Patient is offered another referral to physical therapy for range of motion, gait training, strengthening of the left ankle, but declines, stating that he was frustrated by physical therapy during his last round of it and does not want any further physical therapy, stating he feels he can get function back on his own Patient is educated on signs and symptoms of recurrent infection, and is educated he should call us or go to the emergency department if he begins to experience any of the symptoms No further bracing necessary, patient is educated that he may weightbear as tolerated on the left lower extremity Follow-up as needed with any acute concerns Coding Level of Care Code Est Pt Level 3 (39712) Diagnoses 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
[2025-05-17 13:18] VITALS: BMI 28.2
== END 2025-05-17 13:38 | disposition home or self-care (01) ==
PROVIDERS: PCP Internal Medicine
DX: T84.7XXA Infection and inflammatory reaction due to other internal orthopedic prosthetic devices, implants and grafts, initial encounter (principal)
CPT/HCPCS: 99213

== ENCOUNTER → 2025-05-17 13:02 | Outpatient (BNVA) | payer OTHER, SELFPAY | PROVIDERS: PCP Internal Medicine | DX: T84.7XXD Infection and inflammatory reaction due to other internal orthopedic prosthetic devices, implants and grafts, subsequent encounter (principal); Z79.2 Long term (current) use of antibiotics | CPT/HCPCS: 99212 ==

== ENCOUNTER 2025-07-01 12:14 | Outpatient (AMB) | payer OTHER, SELFPAY ==
--- OUTSIDE RECORDS SUMMARY | 2024-04-23 04:30 | XMS_ITS ---
Author Organization [facility] Address [address] [facility] [place] [address] Care Team Providers Care Director Of Perioperative Services Name Role Phone Iris COHEN, Josue Primary Care Provider UnavailStella Powers Unavailable [phone] Black, Lyn Unavailable [phone] Allergies Allergen (clinical drug ingredient) Drug/Non Drug Allergy documented on EMR Reaction Allergy Type Onset Date Status ciprofloxacin Cipro Unknown Drug Allergy Act kellee Levaquin Unknown Drug Allergy Active NOVOCAINE Unknown Drug Allergy Active Medications Medication SIG (Take, Route, Frequency, Duration) Notes Start Date End Date Status Omeprazole 20 MG 1 capsule Orally Onc e a day Unknown Nabumetone 750 MG as directed Orally q d pc; Duration: 30 Unknown Meloxicam 15 MG 1 tablet Orally Once a day; Duration: 30 Unknown Atenolol 50 MG 1 tablet Orally Once a day Unknown hydroCHLOROthiazide 25 MG 1 tablet Orall y Once a day Active Cephalexin Active Multivitamin Active Atorvastatin Calcium Active Aspirin Active Ezetimibe Active Metoprolol Succinate Active Social History Tobacco Use: Social History Observation Description Date Details (start date - stop date) Former Smoker NA - NA Tobacco Use/Smoking Question Answer Notes Are you a: former smoker Additional Findings: Tobacco Non-User Current no n-smoker Alcohol Screen Question Answer Notes Did you have a drink containing alcohol in the p ast year? Yes Points 0 Interpretation Negative Tobacco use other than smoking: Question Answer Notes Are you an other tobacco user? No Vital Signs Height 5 ft 6 in in 04/23/2024 Weight 190 lbs 04/23/2024 BMI 30.66 kg/m2 04/23/2024 Encounters Encounter Location Date Provider Diagnosis [facility] [address] [address] 04/23/2024 Lyn Lund Plan Of Treatment Next Appt Details Provider Name:Stella hunt, 08/16/2025 09:30:00 AM, [address] [place], [address], Progress Notes * Reed MALLORY HDOB:1940 (84 yo M)Acc No.[id number]:04/23/2024 Progress Notes Patient: Reed OCONNELL Provider: Samia Lund DPM :1940 A ge:83 Y S ex:Male Date:04/23/2024 Address:[address] [place] [address] [address] [facility] Pcp:Josue Simmons MD Subjective: * Chief Complaints: * * ROS: G eneral/Constitutional: Nausea d enies. V omiting d enies. H juice Thirst d enies. L oss appetite d enies. C hills d enies. F atigue d enies.?Fever d enies. N ight Sweats a dmits. U nexplained weight loss d enies. U nexplained weight gain d enies. H EENTM: Dentures a dmits. D izziness d enies. G lasses/contacts a dmits. R etinopathy d enies. B lurred/double vision d enies. T MJ?denies. D ischarge/drainage d enies. I mplants d enies. S ore throat d enies. D ental implants d enies. H adelina of hearing a dmits. D ifficulty chewing/swallowing/speaking d enies. N ose bleeds d enies. S ore mouth d enies. ? R espiratory: On Oxygen d enies. P neumonia/pleurisy d enies.?Bronchitis d enies. E mphysema d enies. C oughing d enies. C ough blood?denies. S hortness of breath a dmits. W heezing d enies. C ardiovascular: Pacemaker d enies. M HOT BOX SPOTTER d enies. W PW d enies. C HF d enies. H eart attack a dmits. S eptal defect d enies. R apid beat d enies. C hest pain d enies. A trial Fib. d enies. M urmur/Palpitations d enies. G astrointestinal: Hemorrhoids d enies. S tomach/Abdominal pain d enies. D ark blood stool d enies. I rritable bowel d enies. C onstipation d enies. D iarrhea d enies. H ematology: Swelling a dmits. C lots d enies. V aricose Veins d enies. B ruising d enies. B leeding problem d enies. G enitourinary: Blood urine d enies. F requent/Painfu/urination/bladder control d enies. K idney stones a dmits. I nfection (UTI) d enies. N ephropathy d enies. s ex trans dis (STD) d enies. P rostate d enies. M usculoskeletal: Hammertoes d enies. B unions d enies. B ack Pain a dmits. M uscle Cramps/ Resting a dmits. M uscle cramps / walking d enies.?Generalized aches and pains d enies. W eakness d enies. I nteg.: Piper d enies. S cars d enies. C orns/calluses?denies. I ngrown nails a dmits. P ainful nails a dmits. O pen Sores d enies. R ashes d enies. N eurologic: Difficulty sleeping d enies. B rain disorder d enies. N umbness d enies. B alance trouble d enies. C onfusion d enies. F ainting/blackouts d enies. T ingling d enies. T remors d enies. * Medical History: A rthritis, Asthma, Back,Hip,and Knee pain, Heart attack, High blood pressure, Macular degeneration, Stomach ulcer, Thyroid disorder, Measles, Chicken pox, Broken bones, CAD (Cholesterol), Cataracts, Headaches/Migraines, Heart disease, Sinusitis, Mumps, Replacement Heart Valves. * Surgical History: a ppendectomy 1948, thyroid 1959, kidney stones 1959, left ankle 01/14/24, aortic valve replacement 2021. * Family History: M other: , diagnosed with Family history of arthritis. F ather: , heart attack, diagnosed with Unspecified essential hypertension. M aternal Grand Mother: diagnosed with Diabetic - NIDDM. S iblings: diagnosed with Unspecified heart disease, Other malignant neoplasm of unspecified site. * Social History: T obacco Use: T obacco Use/Smoking A re you a: f ormer smoker A dditional Findings: Tobacco Non-User C urrent non-smoker Tobacco use other than smoking A re you an other tobacco user? N o D rugs/Alcohol: D rugs H ave you used drugs other than those for medical reasons in the past 12 months? N o Alcohol Screen D id you have a drink containing alcohol in the past year? Y es P oints 0 I nterpretation N egative M iscellaneous: C affeine: yes, 1-2 cups per day. Children: yes, 4. Exercise: yes, gardening/yard work. Marital status: . * Medications: T aking Metoprolol Succinate , Taking Ezetimibe , Taking Atorvastatin Calcium , Taking Aspirin , Taking Cephalexin , Taking Multivitamin , Taking hydroCHLOROthiazide 25 MG Tablet 1 tablet Orally Once a day , Unknown Atenolol 50 MG Tablet 1 tablet Orally Once a day , Unknown Omeprazole 20 MG Capsule Delayed Release 1 capsule Orally Once a day , Unknown Nabumetone 750 MG Tablet as directed Orally qd pc , Unknown Meloxicam 15 MG Tablet 1 tablet Orally Once a day * Allergies: C ipro, Levaquin, NOVOCAINE. Objective: * Vitals: H t: 5 ft 6 in, Wt: 190, BMI: 30.66, Shoe size: 9, Ht-cm: 167.64 cm, Wt-k.18 kg. Assessment: Plan: * Treatment: * Images: * The named appointment provid er may or may not be the originator of this progress note, and it is not deemed complete until electronically signed by the appointment provider. Sign off status: Pending * Provider: Samia Lund DPM Date: Generated for Yokasta palacios/Ilda/Sunil on: 1 09/01/2024 04:05 PM EST
[2025-07-01 12:34] VITALS: BP 140/74; PULSE 70; BMI 31.0
--- NOTE | 2025-07-01 12:34 | A.OFFVIS_ITS ---
Vital Signs 07/01/25 12:34 Height 5 ft 6 in Weight 191 lb 12.835 oz BMI 31.0 BP 140/74 H Blood Pressure Location Lt brachial Position Sitting Pulse 70 Intake Visit Reasons: 1 yr f/up s/p echo Intake Note: 1 year follow-up after echo with ekg hearts doing ok sometimes with get a little quick chest pain Legislative Analyst Required: No Allergies niacin Allergy (Severe, Verified 05/17/25 13:18) Upset Stomach procaine (From Novocain) Allergy (Severe, Verified 05/17/25 13:18) I GET MEAN simvastatin Adverse Reaction (Severe, Verified 05/17/25 13:18) myopathy Medication List - Last Reconciled 07/01/25 by Donny Bonds MD acetaminophen 650 mg PO Q6H PRN amlodipine 5 mg See Protocol PO DAILY aspirin (Adult Aspirin Regimen) 81 mg PO DAILY atorvastatin 80 mg PO DAILY ezetimibe 10 mg PO DAILY metoprolol succinate ER 50 mg PO DAILY [Thigh high compression stocking 30/40mmHG] HPI Comments Details: Reed comes for follow-up. Complains of left lower chest discomfort after he eats spicy food and then says pain improves after he has burping. Pain does not happen with exertion. Gets exertional shortness of breath. Denies any orthopnea, PND, leg edema. No symptoms of claudication. No lightheadedness, syncope. No prolonged palpitation. Takes all his medications. [facility] Medical History Ankle fracture, lateral malleolus, closed Hyperlipidemia HTN (hypertension) CAD (coronary artery disease) Murmur, cardiac Chest pain COPD (chronic obstructive pulmonary disease) Asbestosis Surgical History S/P TAVR (transcatheter aortic valve replacement) Stented coronary artery Hx of cardiac catheterization Family History Father CAD (coronary artery disease) Mother No problems noted. Social History Household Members: None Housing: House Are you a primary zoo caretaker to a significant other at home: No Do you presently have visiting nurse or other home services: Yes Comment: pt refusing bed alarm; ongoing Patient Tobacco Use Status: Former Tobacco user Tobacco use type: Cigarette and Cigar Years Smoked: 14 years old e-Cigarette/Vaping Use: Former Use Second Hand Smoke Exposure: No service: No Review of Systems Const Denies chills, Denies fatigue, Denies fever(s), Denies frequent falls, Denies weakness, Denies weight gain and Denies weight loss ENT Denies dizziness Card Denies chest pain, Denies leg edema, Denies lightheadedness, Denies palpitations, Denies dyspnea, Denies dyspnea on exertion, Denies orthopnea and Denies other (loss of consciousness) Resp Denies cough, Denies dyspnea and Denies dyspnea on exertion GI Denies hematochezia and Denies change in stool character Musc Denies abnormal gait, Denies muscle weakness, Denies numbness, Denies radiating pain into limb and Denies tingling Neuro Denies abnormal gait, Denies dizziness, Denies frequent falls, Denies numbness, Denies tingling and Denies weakness Endo Denies fatigue and Denies palpitations Physical Exam Vital Signs: Last Vital Signs Pulse 70 07/01/25 12:34 BP 140/74 H 07/01/25 12:34 BMI result Body Mass Index 31.0 Const General: cooperative, comfortable, no acute distress, alert, awake and Physically active Nutritional Appearance: obese Orientation/consciousness: patient oriented x3 Limitations: no limitations HEENT Head: Yes normocephalic and Yes atraumatic Neck Neck: Yes trachea midline, Yes supple and Yes no JVD Resp Effort & Inspection: normal respiratory effort Auscultation: no rales, no wheezes and diminished lung sounds Cardio Jugular venous distension: no JVD Palpation: normal PMI Rate: regular rate Rhythm: regular rhythm Heart sounds: S1 normal heart sound present, S2 normal heart sound present, no click, no gallops and Murmur heart sound present systolic early GI Auscultation: normal bowel sounds Skin General skin exam: no rashes or lesions noted Neuro General: patient oriented x3 and no focal motor deficits Extrem General: Yes no clubbing, cyanosis or edema Office Procedures EKG Details: EKGs shows normal sinus rhythm with voltage criteria for LVH with Q-waves in lead [address]-T wave changes [id number], Complete Assessment & Plan Assessment & Plan (1) S/P TAVR (transcatheter aortic valve replacement): Comment: 26 mm, Marcy, March 2023 Code(s): Z95.2 - Presence of prosthetic heart valve Category: Surgical Plan: Status post transcatheter aortic valve replacement for severe aortic stenosis. Doing well from that perspective. No current symptoms. Continue low-dose aspirin. SBE prophylaxis as per ACC/aha guidelines. Follow-up echocardiogram in near future. (2) CAD (coronary artery disease): Code(s): I25.10 - Atherosclerotic heart disease of iroquois coronary artery without angina pectoris Category: Medical Plan: CAD with stenting of the circumflex artery in 2021. No recurrent symptoms of angina. His current chest pain syndrome appears to be atypical and possibly GI related. Advised to call me with the change in symptoms in exertional chest pain. Continue high-intensity statin therapy with ezetimibe therapy with target goal LDL less than 70 mg/dL. Continue aggressive blood pressure control which is currently well optimized on current amlodipine therapy. Importance of good blood pressure control was discussed. Follow up in the clinic in 13 months, sooner PRN. Thank you for allowing me to partake in his care Orders: Orders CA echo transthoracic complete 2 Weeks Z95.2 - Presence of prosthetic heart valve Coding Level of Care Code Est Pt Level 4 (10343) Diagnoses S/P TAVR (transcatheter aortic valve replacement) Z95.2 CAD (coronary artery disease) I25.10 CPT Codes EKG - CPT: 27141-[id number], Complete ([id number])
--- OUTSIDE RECORDS SUMMARY | 2025-07-01 16:05 | XMS_ITS | Clinical Summary ---
Author Organization [address] [facility] Address [address] [place] [address] Phone Care Team Providers Care Dry House Operator Name Role Phone Adam Noonan MD Primary Care Provider [phone] Surgical History Surgery Date Site/Laterality Comments APPENDECTOMY PROCEDURE: [place] APPENDECTOMY OTHER SURGICAL HISTORY PROCEDURE: HISTORICAL SUBTOTAL THYROIDECTOMY Medical History Medical History Date Comments Hypertension 12/08/2017 DX:Hypertension Macular degeneration 12/08/2017 DX:Macular degeneration Hyperlipidemia 12/08/2017 DX:Hyperlipidemi a CAD (coronary artery disease) 12/08/2017 DX :CAD (coronary artery disease); COMMENT: S/p [place] Kidney stone 12/08/2017 DX:Kidney stone Family History Medical History Relation Name Comments Heart attack Brother Coronary artery disease Father [place] Emphysema Sister Relation Name Status Comments Brother [...] on file Sexual Orientation Not on file Plan of Treatment Health Maintenance Due Date [...] Influencers of Health Screening 01/22/2025 COVID-19 Vaccine (1 - 2024-2 6 season) 2025 Influenza Vaccine (#1) 2025 HIB [...] on patient's age to complete this topic Insurance MEDICARE [employer] Care Teams Dry House Operator Relationship Specialty Start Date End Date Adam Noonan MD [address] [place] [phone] PCP - General Internal Medicine 11/19/17
--- OUTSIDE RECORDS SUMMARY | 2025-07-01 16:05 | XMS_ITS | Patient Health Record ---
Author Organization [facility] david Zenda Address [address] [place] [address] Care Team Providers Care Newspaper Editor Managing Name Role Phone Josue Simmons MD Primary Care Provider Stella Tarango Unavailable [phone] Black, Lyn Unavailable [phone] Allergies Allergen (clinical drug ingredient) Drug/Non Drug Allergy documented on EMR Reaction Allergy Type Onset Date Status ciprofloxacin Cipro Unknown Drug Allergy Act kellee Levaquin Unknown Drug Allergy Active Novocain Unknown Drug Allergy Active Reason For Referral No Information Medications Medication SIG (Take, Route, Frequency, Duration) Notes Start Date End Date Status Aspirin Active Atorvastatin Calcium 80 MG 1 tablet Once a day Active Ezetimibe 10 MG 1 tablet Once a day Active Metoprolol Succinate 50 MG 1 capsule Once a day Active hydroCHLOROthiazide 25 MG 1 tablet Orall y Once a day Active Multivitamin Active Cephalexin Active Meloxicam 15 MG 1 tablet Orally Once a day; Duration: 30 Unknown Nabumetone 750 MG as directed Orally q d pc; Duration: 30 Unknown Ammonium Lactate 12 % 1 application Exte rnally to affected areas of dry skin to feet except for between the toes Twice a day; Duration: 30 days Active Omeprazole 20 MG 1 capsule Orally Onc e a day Unknown Atenolol 50 MG 1 tablet Orally Once a day Unknown Immunizations Vaccine Route Administration Date Status Comme nts Influenza Unknown 04/14/2025 Administered Social History Tobacco Use: Social History Observation Description Date Details (start date - stop date) Never Smoker NA - NA Alcohol Screen Question Answer Notes Did you have a drink containing alcohol in the p ast year? Yes Points 0 Interpretation Negative Tobacco use other than smoking: Question Answer Notes Are you an other tobacco user? No Tobacco Control (Standard) Question Answer Notes Tobacco use: Nonsmoker Additional Findings: Tobacco non-user Current no nsmoker AUDIT-C (Standard) Question Answer Notes Did you have a drink containing alcohol in the p ast year? No Points 0 Interpretation Negative Problems Problem Type SNOMED Code ICD Code Onset Dates Problem Status W/U Status Risk Notes Problem Localized, primary osteoarthritis of the ankle and/or foot (578849796) Primary osteoarthrit is, right ankle and foot (M19.071) Active confirmed Vital Signs Blood pressure diastolic 80 mm Hg 05/12/2025 Height 5 ft 6 in in 05/12/2025 Blood pressure systolic 132 mm Hg 05/12/2025 Weight 190 lbs 05/12/2025 BMI 30.66 kg/m2 05/12/2025 Procedures Procedure Date Ordered Date Performed Result Body Sit e [id number] NAIL, 6 OR MORE 05/12/2025 N/A Encounters Encounter Location Date Provider Diagnosis [facility] [address] 05/12/2025 Stella Santiago Pain in right toe(s) M79.674 ; Onychomycosis B35.1 ; Pain in left toe(s) M79.675 and Xerosis of skin L85.3 [facility] [address] 03/30/2025 [facility] Assessments Encounter Date Diagnosis (ICD Code) Assessment Notes Treatment Notes Treatment Clinical Notes Section Notes 05/12/2025 Pain in right toe(s) (ICD-10 - M79.674) 05/12/2025 Onychomycosis (ICD-10 - B35.1) 05/12/2025 Pain in left toe(s) (ICD-10 - M79.675) 05/12/2025 Xerosis of skin (ICD-10 - L85.3) Plan Of Treatment Pending Test Test Name Order Date X ray : Foot, right 3V 01/20/2015 [id number] NAIL, 6 OR MORE 05/12/2025 X ray : Ankle, right 3V 03/04/2017 Next Appt Details Provider Name:Stella hunt, 08/16/2025 09:30:00 AM, [address] [place], [address], Insurance Providers Payer Name Payer Address Payer Phone Subscriber Number Group Number Insured Name Patient Relationship to Insured Coverage Start Date Coverage End Date Medicare National [facility] [address] [place] [address] [id number] Reed Mallory Self - patient is the insured [place] [address] [place], [place] [id number] Reed Mallory Self - patient is the [...]
--- OUTSIDE RECORDS SUMMARY | 2025-07-01 16:05 | XMS_ITS | Encounter Summary ---
Author Organization [facility] Address [address] [place] [phone] Care Team Providers Care Personnel Technician Name Role Phone Adam Noonan MD Primary Care Provider Encounter Details Date Type Department Care Team (Late st Contact Info) Description 01/21/2025 Lab Requisition [facility] - Main Lab [address] [facility] [place] [address] Demetrius Sutton MD [address] [place], [place] [phone] Benign essential microscopic hematuria Social History Tobacco [...] AM EDT) Final Diagnosis A. Urine, Voided, [id number]: Negative for high grade urothelial carcinoma. Results of UroVysion fluorescence in situ hybridization (FISH) testing: CEP3: Normal CEP7: Normal CEP17: Normal LSI 9p21: Normal Interpretation: Normal profile Controls stained appropriately. Note: The results are intended as a screening device and should be interpreted in association with other clinical and pathological findings. 02/05/2025 4:42 PM EDT [facility] at 1642 EDT Clinical Information Benign essential microscopic hematuria R31.1 Urine Cytology/FISH (now) 02/05/2025 4:42 PM EDT [facility] Gross Description A. Urine, Voided, [id number]: Received one ThinPrep slide for cytology and one ThinPrep slide for UroVysion FISH 02/05/2025 4:42 PM EDT [facility] Disclaimer Unless otherwise specified, all tissue is 10% NB formalin fixed and paraffin embedded. Technical pathology services provided by [facility] [address] [facility] [address] [place] [address] (CLIA #[id number]/Galina Valerio MD, Chef & Owner) 02/05/2025 4:42 PM EDT [facility] Tissue Urine specimen from urethra / Unknown 01/14/2025 01/21/2025 1:51 PM EDT us Demetrius Sutton MD LAB PATHOLOGY ORDERABLES Final R esult [facility] [address] [place] [address], documented in this encounter Visit Diagnoses Diagnosis Benign essential microscopic hematuria documented in this encounter Care Teams Personnel Technician Relationship Specialty Start Date End Date Adam Noonan MD [address] [place] [phone] PCP - General Internal Medicine 11/19/17 documented as of this encounter
== END 2025-07-01 12:55 | disposition home or self-care (01) ==
PROVIDERS: PCP Internal Medicine; Visit Provider Internal Medicine Cardiovascular Disease
DX: Z95.2 Presence of prosthetic heart valve (principal); I25.10 Atherosclerotic heart disease of native coronary artery without angina pectoris
CPT/HCPCS: 93010; 99214

== ENCOUNTER → 2025-07-01 12:14 | Outpatient (BNVA) | payer MEDICARE, OTHER, SELFPAY | PROVIDERS: PCP Internal Medicine; Visit Provider Internal Medicine Cardiovascular Disease | DX: I25.10 Atherosclerotic heart disease of native coronary artery without angina pectoris (principal); I10 Essential (primary) hypertension; Z95.2 Presence of prosthetic heart valve; Z95.5 Presence of coronary angioplasty implant and graft; Z98.890 Other specified postprocedural states | CPT/HCPCS: 93005; 99212 ==

== ENCOUNTER → 2025-07-05 10:45 | Outpatient (REF) | payer OTHER, MEDICARE, SELFPAY ==
--- NOTE | 2025-07-05 10:49 | CA_ITS ---
Transthoracic Echocardiogram Patient (Last, First, Middle): Reed Mallory H Gender: M Date of : 1940 Age: 84 Procedure Date: 07/05/2025 Procedure Type: Transthoracic Echocardiogram Location: OP Height: 167.64 cm Weight: 81.65 kg BSA: 1.91 m2 Heart Rate: 67 bpm BP: 158 / 80 mmHg Jinrikisha Driver: KELLY Referring MD: Donny Bonds MD Records And Information Manager: Donny Bonds MD Symptoms: Z95.2 - Presence of prosthetic heart valve Study Quality: Adequate ECG Rhythm: Sinus Conclusions: - 1. Normal LV ejection fraction of 65-70% with impaired relaxation filling pattern 2. A bioprosthetic aortic valve present with normal functioning with mean gradient of 13 mm Hg 3. Normal RV systolic pressure 4. No gross pericardial effusion Findings Left Ventricle Normal left ventricular size, thickness, and systolic function. The visually estimated ejection fraction is between 65-70%. Spectral Doppler is indicative of an impaired relaxation filling pattern. E/E prime ratio is between 8 and 15 consistent with indeterminate filling pressures. There is mild septal asymmetric hypertrophy. Right Ventricle Normal right ventricular cavity size and systolic function. Atria The left atrium is likely dilated. There is no evidence of interatrial shunt. The right atrium is normal in size. Aortic Valve A bioprosthetic aortic valve is present. The prosthetic aortic valve appears to be functioning normally. The mean gradient is 13 mmHg. Mitral Valve There is mild anterior and posterior mitral leaflet thickening. There is trace mitral valve regurgitation. There is no mitral valve stenosis. Pulmonic Valve The pulmonic valve is likely normal. There is trace pulmonic valve regurgitation. Tricuspid Valve Normal tricuspid valve structure. Tricuspid regurgitation envelope is inadequate for calculation of right ventricular systolic pressure. Normal right atrial pressure. There is no evidence of pulmonary hypertension. Great Vessels The pulmonary artery was not well visualized. There is mild dilatation of the ascending aorta measuring 3.80 cm. Venous The inferior vena cava is normal in size and collapses greater than 50% with inspiration. Pericardium/Pleural There is no evidence of pericardial effusion. Prior Study Comparison No significant change compared to prior study dated: 07/28/2024. Measurements 2D Linear Measurements IVSd: 1.36 0.6-0.9/0.6-1.0 cm LVIDd: 5.09 3.9-5.3/4.2-5.9 cm LVIDd Index: 2.66 2.4-3.2/2.2-3.1 cm/m2 LVIDs: 2.95 2.0-3.6 cm LVPWd: 1.01 0.7-1.1 cm LA Diam: 4.00 2.7-3.8/3.0-4.0 cm LAIDs Index: 2.09 1.5-2.3 cm/m2 LV Mass: 294.62 67-162/88-224 g LV Mass Index: 154.25 43-95/49-115 g/m2 LVOT Diam: 1.90 3.0+(-)1.3 cm 2D Systolic Function EF 4C: 62.60 >55% EF 2C: 69.90 >55% EF BiP: 66.30 >55% Mitral Valve MV Pk E: 0.76 MV PK A: 1.03 MV Decel Time: 283.00 E/A: 0.70 E'Lateral: 7.40 E'Medial: 5.98 E/E' Med: 12.70 E/E' Lat: 10.20 PHT: 83.00 MVA PHT: 2.65 Decel Cavalier: 2.68 Aortic Valve AoV Pk Dave: 2.42 AoV Mn Dave: 1.71 AoV VTI: 0.51 AoV Pk Grad: 23.00 Aov Mn Grad: 13.00 STARR Cont.VTI: 1.44 LVOT LVOT Pk Dave: 1.22 LVOT Mn Dave: 0.89 LVOT VTI: 0.26 LVOT Pk Grad: 6.00 LVOT Mn Grad: 4.00 LVOT Diam: 1.90 LVOT Area: 2.84 Diastolic Function MV Pk E: 0.76 MV Pk A: 1.03 E/A: 0.70 E'Medial: 5.98 E/E' Med: 12.70 E' Laterial: 7.40 E/E' Lat: 10.20 Right Ventricle TAPSE (mm): 24.30 TVS' Dave: 13.40 Great Vessels Aorta Sinus of Valsalva: 3.30 2.0-3.5 cm Ao Asc: 3.80 2.1-3.4 cm Ao Arch: 3.20 Pulmonary Veins Pulm Vein S/D 1.50 Pulmonary Valve PV Pk Dave: 0.91 Peak PV Grad: 3.00 Updated in Other Vendor System with Status of Final Donny Bonds MD electronically signed on 07/05/2025 3:11:43 PM with status of Final
--- OUTSIDE RECORDS SUMMARY | 2025-07-05 13:21 | XMS_ITS | Encounter Summary ---
Author Organization [facility] Address [address] [place] [phone] Care Team Providers Care Watch Dial Printer Name Role Phone Adam Noonan MD Primary Care Provider [phone] Encounter Details Date Type Department Care Team (Late st Contact Info) Description 01/21/2025 Lab Requisition [facility] - Main Lab [address] [facility] [address] Demetrius Sutton MD [address] [place], [place] [phone] Benign essential microscopic hematuria Social History Tobacco [...] AM EDT) Final Diagnosis A. Urine, Voided, [id number]: Negative for high grade urothelial carcinoma. Results of UroVysion fluorescence in situ hybridization (FISH) testing: CEP3: Normal CEP7: Normal CEP17: Normal LSI 9p21: Normal Interpretation: Normal profile Controls stained appropriately. Note: The results are intended as a screening device and should be interpreted in association with other clinical and pathological findings. 02/05/2025 4:42 PM EDT [facility] at 1642 EDT Clinical Information Benign essential microscopic hematuria R31.1 Urine Cytology/FISH (now) 02/05/2025 4:42 PM EDT [facility] Gross Description A. Urine, Voided, [id number]: Received one ThinPrep slide for cytology and one ThinPrep slide for UroVysion FISH 02/05/2025 4:42 PM EDT [facility] Disclaimer Unless otherwise specified, all tissue is 10% NB formalin fixed and paraffin embedded. Technical pathology services provided by [facility] [address] [facility] [address] [place] [address] (CLIA #[id number]/Galina Valerio MD, Bus Attendant) 02/05/2025 4:42 PM EDT [facility] Tissue Urine specimen from urethra / Unknown 01/14/2025 01/21/2025 1:51 PM EDT us Demetrius Sutton MD LAB PATHOLOGY ORDERABLES Final R esult [facility] [address] [place] [address], documented in this encounter Visit Diagnoses Diagnosis Benign essential microscopic hematuria documented in this encounter Care Teams Watch Dial Printer Relationship Specialty Start Date End Date Adam Noonan MD [address] [place] [phone] PCP - General Internal Medicine 11/19/17 documented as of this encounter
--- OUTSIDE RECORDS SUMMARY | 2025-07-05 13:21 | XMS_ITS | Clinical Summary ---
Author Organization [address] [facility] Address [address] [place] [address] Phone Care Team Providers Care Senior Vice President & General Counsel Name Role Phone Adam Noonan MD Primary Care Provider [phone] Surgical History Surgery Date Site/Laterality Comments APPENDECTOMY PROCEDURE: RI APPENDECTOMY OTHER SURGICAL HISTORY PROCEDURE: HISTORICAL SUBTOTAL THYROIDECTOMY Medical History Medical History Date Comments Hypertension 12/08/2017 DX:Hypertension Macular degeneration 12/08/2017 DX:Macular degeneration Hyperlipidemia 12/08/2017 DX:Hyperlipidemi a CAD (coronary artery disease) 12/08/2017 DX :CAD (coronary artery disease); COMMENT: S/p [place] Kidney stone 12/08/2017 DX:Kidney stone Family History Medical History Relation Name Comments Heart attack Brother Coronary artery disease Father [place] Emphysema Sister Relation Name Status Comments Brother [...] Insurance MEDICARE [employer] Care Teams Senior Vice President & General Counsel Relationship Specialty Start Date End Date Adam Noonan MD [address] [place] [phone] PCP - General Internal Medicine 11/19/17
== END ==
LOC: HO.CARD 10:45
PROVIDERS: PCP Internal Medicine; Visit Provider Internal Medicine Cardiovascular Disease
DX: Z95.2 Presence of prosthetic heart valve (principal)
CPT/HCPCS: 93306

== ENCOUNTER → 2025-07-05 10:49 | Outpatient (BNV) | payer OTHER, MEDICARE, SELFPAY | PROVIDERS: PCP Internal Medicine; Visit Provider Internal Medicine Cardiovascular Disease | DX: Z95.2 Presence of prosthetic heart valve (principal) | CPT/HCPCS: 93306 ==